=== PATIENT | male | born 1965 | race Caucasian/White ===

== ENCOUNTER 2018-01-24 17:51 | Observation (INO) | payer BC, OTHER ==
--- OUTSIDE RECORDS SUMMARY | 2018-01-24 17:54 | XMS REPORT ---
:1965 [facility] Address [address] [place] [address] [address] [place] [address] Care Team Providers Name Role Phone DWIGHT MCHUGH Unavailable Unavailable Problems This patient has no known problems. Allergies, Adverse Reactions, Alerts This patient has no known allergies or adverse reactions. Medications This patient has no known medications. Results Test Description Test Time Test Comments Text Results Atomic Results Result Comments POCT-GLUCOSE METER 2017-06-15 17:36:00 Test Item Value Reference Range Comments POC-GLUCOSE METER (BEAKER) (test 243 mg/dL 70-110 TESTED AT [facility] [address] [place] [address] ghxg=4892) [address] [facility] [address] BASIC METABOLIC [id number] 13:51:00 Test Item Value Reference Range Comments SODIUM (BEAKER) (test 139 meq/L 135-148 yqis=552) POTASSIUM (BEAKER) (test 3.4 meq/L 3.6-5.5 ijqo=578) CHLORIDE (BEAKER) (test 101 meq/L 98-106 eece=888) CO2 (BEAKER) (test 29 meq/L 20-29 xlek=701) BLOOD UREA NITROGEN 11 mg/dL 10-26 (BEAKER) (test ytmc=009) CREATININE (BEAKER) (test 2.10 mg/dL 0.50-1.20 ddei=175) GLUCOSE RANDOM (BEAKER) 157 mg/dL 70-110 (test ehmy=391) CALCIUM (BEAKER) (test 8.6 mg/dL 8.5-10.5 icre=595) EGFR (BEAKER) (test 33 mL/min/1.73 sq m ESTIMATED GFR IS NOT xowc=1493) ACCURATE CREATININE CLEARANCE IN PREDICTING GLOMERULAR FILTRATION RATE. ESTIMATED GFR IS NOT APPLICABLE FOR DIALYSIS PATIENTS. [id number] 13:44:00 Test Item Value Reference Range Comments MAGNESIUM (BEAKER) (test tvuh=241) 1.9 mg/dL 1.5-3.0 CBC W/PLT COUNT & AUTO [id number] 13:34:00 Test Item Value Reference Range Comments WHITE BLOOD CELL COUNT (BEAKER) (test emzc=345) 6.8 K/ L 4.0-10.0 RED BLOOD CELL COUNT (BEAKER) (test yukt=102) 2.92 M/ L 4.20-5.80 HEMOGLOBIN (BEAKER) (test cmmi=689) 8.4 GM/DL 13.0-16.8 HEMATOCRIT (BEAKER) (test orfi=522) 25.5 % 40.0-50.0 MEAN CORPUSCULAR VOLUME (BEAKER) (test wesi=303) 87.4 fL 82.0-98.0 MEAN CORPUSCULAR HEMOGLOBIN (BEAKER) (test 28.7 pg 27.0-33.0 jalj=402) MEAN CORPUSCULAR HEMOGLOBIN CONC (BEAKER) (test 32.8 GM/DL 32.0-36.0 jofh=209) RED CELL DISTRIBUTION WIDTH (BEAKER) (test 14.7 % 10.3-14.2 dkqa=333) PLATELET COUNT (BEAKER) (test ixkf=316) 299 K/CU MM 150-430 MEAN PLATELET VOLUME (BEAKER) (test nyyr=035) 6.9 fL 6.5-10.5 NUCLEATED RED BLOOD CELLS (BEAKER) (test 0 /100 WBC 0-0 ifyw=392) NEUTROPHILS RELATIVE PERCENT (BEAKER) (test 65 % mivk=452) LYMPHOCYTES RELATIVE PERCENT (BEAKER) (test 18 % epjp=837) MONOCYTES RELATIVE PERCENT (BEAKER) (test 14 % husu=605) EOSINOPHILS RELATIVE PERCENT (BEAKER) (test 3 % jdfv=263) BASOPHILS RELATIVE PERCENT (BEAKER) (test 1 % prcy=630) NEUTROPHILS ABSOLUTE COUNT (BEAKER) (test 4.40 K/ L 1.80-8.00 tpvy=103) LYMPHOCYTES ABSOLUTE COUNT (BEAKER) (test 1.20 K/ L 1.48-4.50 yynh=139) MONOCYTES ABSOLUTE COUNT (BEAKER) (test 1.00 K/ L 0.00-1.30 xwkk=342) EOSINOPHILS ABSOLUTE COUNT (BEAKER) (test 0.20 K/ L 0.00-0.50 soiq=262) BASOPHILS ABSOLUTE COUNT (BEAKER) (test 0.00 K/ L 0.00-0.20 uybg=486) POCT-GLUCOSE [id number] 11:28:00 Test Item Value Reference Range Comments POC-GLUCOSE METER (BEAKER) 147 mg/dL 70-110 TESTED AT [address] (test jdnm=8485) [facility] [address] POCT-GLUCOSE [id number] 06:04:00 Test Item Value Reference Range Comments POC-GLUCOSE METER (BEAKER) 137 mg/dL 70-110 TESTED AT [address] (test zirp=5223) [place] [address] POCT-GLUCOSE [id number] 21:01:00 Test Item Value Reference Range Comments POC-GLUCOSE METER (BEAKER) 138 mg/dL 70-110 TESTED AT [address] (test gzxm=6762) [place] [address] POCT-GLUCOSE [id number] 16:06:00 Test Item Value Reference Range Comments POC-GLUCOSE METER (BEAKER) 167 mg/dL 70-110 TESTED AT [address] (test moeq=3844) [place] [address] POCT-GLUCOSE [id number] 12:49:00 Test Item Value Reference Range Comments POC-GLUCOSE METER (BEAKER) 144 mg/dL 70-110 TESTED AT [address] (test kuwp=4431) [place] [address] [id number] 10:27:00 Test Item Value Reference Range Comments POC-CREATININE (BEAKER) 3.6 mg/dL 0.6-1.3 TESTED AT [address] (test exez=7161) [place] [address] POC-EGFR (BEAKER) (test 18 mL/min/1.73M2 ekat=3573) [id number] 10:27:00 Test Item Value Reference Range Comments POC-SODIUM (BEAKER) (test 138 meq/L 135-148 TESTED AT [address] ynso=3520) [place] [address] [id number] 10:27:00 Test Item Value Reference Range Comments POC-POTASSIUM (BEAKER) 3.6 meq/L 3.6-5.5 TESTED AT [address] (test wssc=8126) [place] [address] [id number] 10:27:00 Test Item Value Reference Range Comments POC-BUN (BEAKER) (test 20 mg/dL 7-21 TESTED AT [address] mxza=8762) [place] [address] [id number] 10:27:00 Test Item Value Reference Range Comments POC-CHLORIDE (BEAKER) (test 97 meq/L 98-107 TESTED AT [address] rlvq=9967) [place] [address] [id number] 10:27:00 Test Item Value Reference Range Comments POC-GLUCOSE (BEAKER) (test 123 mg/dL 70-110 TESTED AT [address] nuct=8224) [place] [address] [id number] 10:27:00 Test Item Value Reference Range Comments POC-HEMATOCRIT (BEAKER) (test 24 % 40-50 TESTED AT [address] pgmz=7137) [place] [address] [id number] 10:27:00 Test Item Value Reference Range Comments POC-HEMOGLOBIN (BEAKER) 8.2 g/dL 13.0-16.8 TESTED AT [address] (test kwzb=4977) [place] [address] [id number] 10:27:00 Test Item Value Reference Range Comments POC-TCO2 (BEAKER) (test 30 meq/L 22-29 TESTED AT [address] xjct=6524) [place] [address] POCT-GLUCOSE [id number] 06:08:00 Test Item Value Reference Range Comments POC-GLUCOSE METER (BEAKER) 163 mg/dL 70-110 TESTED AT [address] (test lnzr=9609) [place] [address] POCT-GLUCOSE [id number] 21:07:00 Test Item Value Reference Range Comments POC-GLUCOSE METER (BEAKER) 132 mg/dL 70-110 TESTED AT [facility] [address] [place] [address] (test jays=6411) [facility] [address] POCT-GLUCOSE [id number] 12:58:00 Test Item Value Reference Range Comments POC-GLUCOSE METER (BEAKER) 178 mg/dL 70-110 TESTED AT [facility] [address] [place] [address] (test ybva=9790) [facility] [address] POCT-GLUCOSE [id number] 05:29:00 Test Item Value Reference Range Comments POC-GLUCOSE METER (BEAKER) 171 mg/dL 70-110 TESTED AT [address] (test styj=6054) [facility] [address] POCT-GLUCOSE [id number] 22:03:00 Test Item Value Reference Range Comments POC-GLUCOSE METER (BEAKER) 249 mg/dL 70-110 TESTED AT [address] (test odkx=4712) [facility] [address] POCT-GLUCOSE [id number] 16:45:00 Test Item Value Reference Range Comments POC-GLUCOSE METER (BEAKER) 213 mg/dL 70-110 TESTED AT [address] (test cjec=1829) [facility] [address] [id number] 16:43:00 Test Item Value Reference Range Comments THYROID STIMULATING HORMONE (BEAKER) (test 2.09 uIU/mL 0.35-5.50 uuzy=850) COMPREHENSIVE METABOLIC [id number] 16:24:00 Test Item Value Reference Range Comments TOTAL PROTEIN (BEAKER) 7.2 gm/dL 6.0-8.5 (test ooge=217) ALBUMIN (BEAKER) (test 3.5 g/dL 3.5-5.0 hvxx=7319) ALKALINE PHOSPHATASE 67 U/L 30-115 (BEAKER) (test engg=358) BILIRUBIN TOTAL (BEAKER) 0.3 mg/dL 0.1-1.2 (test renx=911) SODIUM (BEAKER) (test 136 meq/L 135-148 zdfh=783) POTASSIUM (BEAKER) (test 4.1 meq/L 3.6-5.5 phuq=649) CHLORIDE (BEAKER) (test 98 meq/L 98-106 ipwg=503) CO2 (BEAKER) (test 26 meq/L 20-29 pjfi=504) BLOOD UREA NITROGEN 32 mg/dL 10-26 (BEAKER) (test xdjo=718) CREATININE (BEAKER) (test 4.40 mg/dL 0.50-1.20 hyui=623) GLUCOSE RANDOM (BEAKER) 212 mg/dL 70-110 (test upyj=892) CALCIUM (BEAKER) (test 9.0 mg/dL 8.5-10.5 ecaw=907) AST (SGOT) (BEAKER) (test 14 U/L 5-40 lhob=894) ALT (SGPT) (BEAKER) (test 4 U/L 5-50 tjzj=179) EGFR (BEAKER) (test 14 mL/min/1.73 sq m ESTIMATED GFR IS NOT cazk=3469) ACCURATE CREATININE CLEARANCE IN PREDICTING GLOMERULAR FILTRATION RATE. ESTIMATED GFR IS NOT APPLICABLE FOR DIALYSIS PATIENTS. CBC W/PLT COUNT & AUTO [id number] 16:02:00 Test Item Value Reference Range Comments WHITE BLOOD CELL COUNT (BEAKER) (test ynxn=941) 6.9 K/ L 4.0-10.0 RED BLOOD CELL COUNT (BEAKER) (test yaip=647) 2.95 M/ L 4.20-5.80 HEMOGLOBIN (BEAKER) (test vumk=913) 8.6 GM/DL 13.0-16.8 HEMATOCRIT (BEAKER) (test hnrl=954) 25.9 % 40.0-50.0 MEAN CORPUSCULAR VOLUME (BEAKER) (test jatc=679) 87.9 fL 82.0-98.0 MEAN CORPUSCULAR HEMOGLOBIN (BEAKER) (test 29.0 pg 27.0-33.0 mjzf=366) MEAN CORPUSCULAR HEMOGLOBIN CONC (BEAKER) (test 33.0 GM/DL 32.0-36.0 idza=928) RED CELL DISTRIBUTION WIDTH (BEAKER) (test 15.0 % 10.3-14.2 wwbw=315) PLATELET COUNT (BEAKER) (test sasr=119) 330 K/CU MM 150-430 MEAN PLATELET VOLUME (BEAKER) (test toix=266) 7.1 fL 6.5-10.5 NUCLEATED RED BLOOD CELLS (BEAKER) (test 0 /100 WBC 0-0 zoje=058) NEUTROPHILS RELATIVE PERCENT (BEAKER) (test 66 % ewkj=302) LYMPHOCYTES RELATIVE PERCENT (BEAKER) (test 16 % wkjb=839) MONOCYTES RELATIVE PERCENT (BEAKER) (test 12 % igjn=251) EOSINOPHILS RELATIVE PERCENT (BEAKER) (test 5 % odyk=712) BASOPHILS RELATIVE PERCENT (BEAKER) (test 1 % vvyr=779) NEUTROPHILS ABSOLUTE COUNT (BEAKER) (test 4.60 K/ L 1.80-8.00 sonj=800) LYMPHOCYTES ABSOLUTE COUNT (BEAKER) (test 1.10 K/ L 1.48-4.50 ygwh=064) MONOCYTES ABSOLUTE COUNT (BEAKER) (test 0.80 K/ L 0.00-1.30 vrds=164) EOSINOPHILS ABSOLUTE COUNT (BEAKER) (test 0.30 K/ L 0.00-0.50 yjzl=970) BASOPHILS ABSOLUTE COUNT (BEAKER) (test 0.10 K/ L 0.00-0.20 pflu=165) PROTHROMBIN [id number] 16:01:00 Test Item Value Reference Range Comments PROTIME (BEAKER) (test yavg=760) 10.3 seconds 9.3-12.0 INR (BEAKER) (test owtj=636) 1.0 <=5.9 RECOMMENDED COUMADIN/WARFARIN INR THERAPY RANGESSTANDARD DOSE: 2.0 - 3.0 Includes: PROPHYLAXIS forvenous thrombosis, systemic embolization; TREATMENT for venous thrombosis and/or pulmonary embolus.HIGH RISK: Target INR is 2.5-3.5 for patients with mechanical heart valves.POCT-GLUCOSE [id number] 12:01:00 Test Item Value Reference Range Comments POC-GLUCOSE METER (BEAKER) 211 mg/dL 70-110 TESTED AT [address] (test dghj=3249) [facility] [address] POCT-GLUCOSE [id number] 06:08:00 Test Item Value Reference Range Comments POC-GLUCOSE METER (BEAKER) 191 mg/dL 70-110 TESTED AT [address] (test vwqt=4707) [facility] [address] POCT-GLUCOSE [id number] 21:28:00 Test Item Value Reference Range Comments POC-GLUCOSE METER (BEAKER) 233 mg/dL 70-110 TESTED AT [address] (test tzen=4632) [facility] [address] POCT-GLUCOSE [id number] 16:19:00 Test Item Value Reference Range Comments POC-GLUCOSE METER (BEAKER) 290 mg/dL 70-110 TESTED AT [address] (test mydz=1391) [facility] [address] POCT-GLUCOSE [id number] 13:33:00 Test Item Value Reference Range Comments POC-GLUCOSE METER (BEAKER) 186 mg/dL 70-110 TESTED AT [address] (test tygi=2998) [facility] [address] POCT-GLUCOSE [id number] 06:27:00 Test Item Value Reference Range Comments POC-GLUCOSE METER (BEAKER) 204 mg/dL 70-110 TESTED AT [address] (test dcmt=2566) [facility] [address] POCT-GLUCOSE [id number] 21:40:00 Test Item Value Reference Range Comments POC-GLUCOSE METER (BEAKER) 267 mg/dL 70-110 TESTED AT [address] (test pipw=6643) [facility] [address] POCT-GLUCOSE [id number] 17:32:00 Test Item Value Reference Range Comments POC-GLUCOSE METER (BEAKER) 221 mg/dL 70-110 TESTED AT [address] (test nbnj=3062) [facility] [address] HEPATITIS B SURFACE [id number] 14:21:00 Test Item Value Reference Range Comments HEPATITIS B SURFACE ANTIBODY (BEAKER) (test < mIU/mL <8.0 ekgd=456) HEPATITIS B CORE ANTIBODY, [id number] 14:15:00 Test Item Value Reference Range Comments HEPATITIS B CORE TOTAL ANTIBODY (BEAKER) (test Nonreactive Nonreactive vzma=148) POCT-GLUCOSE [id number] 12:18:00 Test Item Value Reference Range Comments POC-GLUCOSE METER (BEAKER) 193 mg/dL 70-110 TESTED AT [address] (test ecft=5523) [facility] [address] RAD, CHEST, 1 VIEW, NON [id number] 08:49:00Reason for exam:->for outpatient HD placementShould this be performed at the bedside?->YesFINAL REPORT TECHNIQUE: Frontal chest radiograph dated 2016. CLINICAL HISTORY: Outpatient HD placement COMPARISON STUDY: None IMPRESSION:Right sided internal jugular venous catheter is seen with the tip. Increased interstitial lung markings are compatible with interstitial edema. No focal consolidation. No pleural effusion or pneumothorax. Cardiomediastinal silhouette isnormal in size. No fracture. Signed: Sachi Hammer MDReport Verified Date/Time: 06/10/2017 08:49:42 Reading Location: [facility] Radiology Reading Room Electronically signed by: SACHI HAMMER on 2016 08:49 AMPOCT-GLUCOSE [id number] 06:53:00 Test Item Value Reference Range Comments POC-GLUCOSE METER (BEAKER) 177 mg/dL 70-110 TESTED AT [address] (test dmiz=9094) [facility] [address] POCT-GLUCOSE [id number] 22:10:00 Test Item Value Reference Range Comments POC-GLUCOSE METER (BEAKER) 109 mg/dL 70-110 TESTED AT [address] (test gjct=4780) [facility] [address] HEPATITIS B SURFACE [id number] 20:18:00 Test Item Value Reference Range Comments HEPATITIS B SURFACE ANTIGEN (2) (BEAKER) (test Nonreactive Nonreactive efxj=8962) POCT-GLUCOSE [id number] 17:08:00 Test Item Value Reference Range Comments POC-GLUCOSE METER (BEAKER) 223 mg/dL 70-110 TESTED AT [address] (test lvru=4873) [facility] [address] POCT-GLUCOSE [id number] 12:47:00 Test Item Value Reference Range Comments POC-GLUCOSE METER (BEAKER) 200 mg/dL 70-110 TESTED AT [address] (test durg=7515) [facility] [address] ANG, TUNNELED CATHETER [id number] 12:13:00Reason for exam:->renal failureFINAL REPORT Tunneled central venous catheter insertion. History:End-stage renal disease Modality: Sonography and fluoroscopy. Sedation: Moderate sedation was administered. 2 mg of Versed and 100 mcg of fentanyl IV was used for moderate sedation monitored under my direction. Total intra- service time of sedation was 30 minutes. The patient's vital signs were monitored throughout the procedure and recorded in the patient's medical record by the nurse. [facility] Former: Onesimo Lopez MD. Continuity Manager: None. Approach: Right internal jugular vein Estimated blood loss: < 5 cc. Specimen: None. Fluoroscopy Time: 0.4 min.Reference Air Kerma (Ka, r): 11.0 mGy. Technique: Informed written consent was obtained. Discussion of risks, benefits, and alternatives were made with the patient. The patient expressed understanding and agreed to proceed. Auniversal timeout was performed prior to starting the procedure. All elements maximal sterile barrier technique was utilized for this procedure, including utilization of sterile scrub solution for skin prep, a large sterile sheet to cover the areas of the patient that were not prepped, and hand hygiene, mask, head covering, and sterile gown for performing radiologist and scrub technologist. The skin was anesthetized with 2% lidocaine.Ultrasound evaluation showed a patent and compressible right internal jugular vein, which was punctured under direct real-time ultrasound guidance with a micropuncture needle. An ultrasound image was saved to PACS. A 0.018 inch wire was placed through the needle into the right atrium. A 4 Singaporean micropuncture sheath was placed. A subcutaneous tunnel was created in the right anterior chest wall by blunt dissection. A 19 cm tipped cuff 15.5 Singaporean Duraflow 2 catheter was brought through the tunnel. A peel-away sheath was placed in the right IJ vein and the catheter was advanced through the sheath, with its distal tip terminating in the right atrium. The peel-away sheath was removed. The ports were flushed and aspirated easily following placement. The catheter was sutured to the skin with Prolene to secure its placement. The small jugular incision site was closed using Dermabond. Vital signs were monitored throughout the procedure by a nurse, and remained stable. The patient tolerated the procedure well and left the department in the same condition.The patient was given 1 gram of Ancef intravenously during the procedure. Results: Spot radiograph of the chest demonstrates the new tunneled central venous catheter to lie in the expected position with its tip overlying the superior right atrium. Impression: Successful, uncomplicated placement of a right internal jugular tunneled dialysis catheter using sonographic and fluoroscopic guidance and conscious sedation. The catheter is ready for immediate use. Signed: Onesimo Lopezort Verified Date/Time: 06/09/2017 12:13:36 Reading Location: [facility] Radiology Reading Room 12 :13 PMPOCT-GLUCOSE [id number] 06:03:00 Test Item Value Reference Range Comments POC-GLUCOSE METER (BEAKER) 208 mg/dL 70-110 TESTED AT [facility] [address] [facility] [place] (test ifau=4821) [address] [facility] [address] BASIC METABOLIC [id number] 06:00:00 Test Item Value Reference Range Comments SODIUM (BEAKER) (test 139 meq/L 135-148 xvmw=192) POTASSIUM (BEAKER) (test 3.5 meq/L 3.6-5.5 ysmm=435) CHLORIDE (BEAKER) (test 103 meq/L 98-106 eoju=012) CO2 (BEAKER) (test 26 meq/L 20-29 lzes=188) BLOOD UREA NITROGEN 62 mg/dL 10-26 (BEAKER) (test uijj=091) CREATININE (BEAKER) (test 5.10 mg/dL 0.50-1.20 jufg=739) GLUCOSE RANDOM (BEAKER) 191 mg/dL 70-110 (test mrll=966) CALCIUM (BEAKER) (test 9.0 mg/dL 8.5-10.5 ivwj=729) EGFR (BEAKER) (test 12 mL/min/1.73 sq m ESTIMATED GFR IS NOT leir=9052) ACCURATE CREATININE CLEARANCE IN PREDICTING GLOMERULAR FILTRATION RATE. ESTIMATED GFR IS NOT APPLICABLE FOR DIALYSIS PATIENTS. HEPATIC FUNCTION [id number] 05:58:00 Test Item Value Reference Range Comments TOTAL PROTEIN (BEAKER) (test ythr=254) 6.3 gm/dL 6.0-8.5 ALBUMIN (BEAKER) (test rjqx=3249) 3.2 g/dL 3.5-5.0 BILIRUBIN TOTAL (BEAKER) (test dnfg=914) 0.4 mg/dL 0.1-1.2 BILIRUBIN DIRECT (BEAKER) (test wmjd=439) 0.2 mg/dL 0.0-0.4 ALKALINE PHOSPHATASE (BEAKER) (test aiee=908) 67 U/L 30-115 AST (SGOT) (BEAKER) (test wewk=128) 13 U/L 5-40 ALT (SGPT) (BEAKER) (test hwik=569) 10 U/L 5-50 CBC W/PLT COUNT & AUTO [id number] 05:56:00 Test Item Value Reference Range Comments WHITE BLOOD CELL COUNT (BEAKER) (test bbgp=881) 6.3 K/ L 4.0-10.0 RED BLOOD CELL COUNT (BEAKER) (test cauy=967) 2.71 M/ L 4.20-5.80 HEMOGLOBIN (BEAKER) (test czim=482) 7.8 GM/DL 13.0-16.8 HEMATOCRIT (BEAKER) (test atjq=427) 23.6 % 40.0-50.0 MEAN CORPUSCULAR VOLUME (BEAKER) (test kmtl=382) 86.8 fL 82.0-98.0 MEAN CORPUSCULAR HEMOGLOBIN (BEAKER) (test 28.6 pg 27.0-33.0 lvag=407) MEAN CORPUSCULAR HEMOGLOBIN CONC (BEAKER) (test 33.0 GM/DL 32.0-36.0 bgci=378) RED CELL DISTRIBUTION WIDTH (BEAKER) (test 14.8 % 10.3-14.2 codw=546) PLATELET COUNT (BEAKER) (test asak=617) 334 K/CU MM 150-430 MEAN PLATELET VOLUME (BEAKER) (test pzza=688) 6.9 fL 6.5-10.5 NUCLEATED RED BLOOD CELLS (BEAKER) (test 0 /100 WBC 0-0 zncb=526) NEUTROPHILS RELATIVE PERCENT (BEAKER) (test 57 % oatr=374) LYMPHOCYTES RELATIVE PERCENT (BEAKER) (test 19 % ljho=443) MONOCYTES RELATIVE PERCENT (BEAKER) (test 15 % otke=690) EOSINOPHILS RELATIVE PERCENT (BEAKER) (test 7 % ntgi=728) BASOPHILS RELATIVE PERCENT (BEAKER) (test 1 % elgt=891) NEUTROPHILS ABSOLUTE COUNT (BEAKER) (test 3.60 K/ L 1.80-8.00 llhp=717) LYMPHOCYTES ABSOLUTE COUNT (BEAKER) (test 1.20 K/ L 1.48-4.50 dgsi=266) MONOCYTES ABSOLUTE COUNT (BEAKER) (test 1.00 K/ L 0.00-1.30 xdyc=993) EOSINOPHILS ABSOLUTE COUNT (BEAKER) (test 0.50 K/ L 0.00-0.50 mypy=942) BASOPHILS ABSOLUTE COUNT (BEAKER) (test 0.10 K/ L 0.00-0.20 hyau=583) [id number] 05:55:00 Test Item Value Reference Range Comments PHOSPHORUS (BEAKER) (test dgdf=482) 4.1 mg/dL 2.5-4.5 [id number] 05:51:00 Test Item Value Reference Range Comments PROTIME (BEAKER) (test abyc=086) 10.7 seconds 9.3-12.0 INR (BEAKER) (test xjic=174) 1.0 <=5.9 PARTIAL THROMBOPLASTIN TIME (BEAKER) (test 28.5 seconds 23.0-35.0 uect=286) RECOMMENDED COUMADIN/WARFARIN INR THERAPY RANGESSTANDARD DOSE: 2.0 - 3.0 Includes: PROPHYLAXIS forvenous thrombosis, systemic embolization; TREATMENT for venous thrombosis and/or pulmonary embolus.HIGH RISK: Target INR is 2.5-3.5 for patients with mechanical heart valves.[id number] 05:50:00 Test Item Value Reference Range Comments MAGNESIUM (BEAKER) (test equm=511) 1.7 mg/dL 1.5-3.0 POCT-GLUCOSE [id number] 23:14:00 Test Item Value Reference Range Comments POC-GLUCOSE METER (BEAKER) 230 mg/dL 70-110 TESTED AT [address] (test akcl=5389) [address] [facility] [id number]
--- OUTSIDE RECORDS SUMMARY | 2018-01-24 17:54 | XMS REPORT | Clinical Summary ---
:1965 Author Organization [facility] Address [address] [place] [address] Care Team Providers Name Role Phone Garo Chavarria MD Primary Care Provider Allergies Active Allergy Reactions Severity Noted Date Comments Sulfa (Sulfonamide Antibiotics) Rash Low 07/17/2017 Current Medications Prescription Sig. Disp. Refills Start Date End Date Status amLODIPine Take 10 mg by Active (NORVASC) 10 mg mouth daily. tablet furosemide (LASIX) Take 40 mg by Active 40 mg tablet mouth 2 (two) times a day. sertraline (ZOLOFT) Take 50 mg by Active 50 MG tablet mouth daily. atorvastatin Take 80 mg by Active (LIPITOR) 80 MG mouth daily. tablet clopidogrel Take 75 mg by Active (PLAVIX) 75 mg mouth daily. tablet docusate sodium Take 100 mg by Active (COLACE) 100 MG mouth 2 (two) capsule times a day. ranolazine (RANEXA) Take 1,000 mg Active 1,000 mg 12 hr by mouth daily. tablet metoprolol tartrate Take 100 mg by Active (LOPRESSOR) 100 mg mouth 2 (two) tablet times a day. hydrALAZINE Take 50 mg by Active (APRESOLINE) 25 MG mouth 2 (two) tablet times a day. metoclopramide Take 5 mg by Active (REGLAN) 5 MG mouth 3 (three) tablet times a day. aspirin 325 MG Take 325 mg by Active tablet mouth daily. INSULIN Inject under Active SUBCUTANEOUS PUMP, the skin HUMALOG, 100 continuously. UNITS/ML INSULIN Insulin Pump - PUMP INFUSION V-GO 40 units (HumaLOG) thru out the day. travoprost Administer 1 Active (TRAVATAN-Z) 0.004 drop to both % eyes nightly. nitroglycerin Place 0.4 mg Active (NITROSTAT) 0.4 MG under the SL tablet tongue every 5 (five) minutes as needed for chest pain. nitroglycerin Place 1 patch Active (NITRODUR) 0.2 on the skin mg/hr daily as needed (Chest Pain). zolpidem (AMBIEN) 5 Take 5 mg by Active MG tablet mouth nightly. ondansetron Take 4 mg by Active (ZOFRAN) 4 MG mouth every 6 tablet (six) hours as needed for nausea or vomiting. promethazine Take 25 mg by Active (PHENERGAN) 25 MG mouth every 8 tablet (eight) hours as needed for nausea or vomiting. lactulose 10 Take 20 g by Active gram/15 mL (15 mL) mouth daily as solution needed (Constipation). famotidine (PEPCID) Take 40 mg by Active 40 MG tablet mouth nightly. ergocalciferol Take 50,000 Active (VITAMIN D2) 50,000 Units by mouth unit capsule every 30 (thirty) days. ciprofloxacin Take 500 mg by Discontinued (CIPRO) 500 MG mouth 2 (two) 8 tablet times a day. cholecalciferol, Take 50,000 Discontinued vitamin D3, Units by mouth 8 (VITAMIN D3) 2,000 daily. unit capsule capsule acetaminophen-codei Take 1-2 20 tablet 0 08/25/2017 ne (TYLENOL WITH tablets by 8 CODEINE #3) 300-30 mouth every 6 mg per tablet (six) hours as needed for moderate pain for up to 5 days. docusate sodium Take 1 capsule 14 capsule 0 08/25/2017 (COLACE) 100 MG (100 mg total) 8 capsule by mouth 2 (two) times a day for 7 days. Active Problems Problem Noted Date End-stage renal disease on hemodialysis 08/25/2017 Resolved Problems Problem Noted Date Resolved Date Breakdown of intraperitoneal dialysis catheter, init 08/25/2017 08/25/2017 Abdominal pain 07/17/2017 07/19/2017 Encounters Date Type Specialty Care Team Description 09/15/2017 Office Visit General Surgery Dianelys, Surgery follow-up Abdiel Davis MD (Primary Dx) 08/25/2017 Hospital Encounter General Surgery Abdiel Ivory MD 08/25/2017 Procedure Pass General Surgery 08/25/2017 Surgery General Surgery Oppermann, OPEN PERITONEAL Abdiel Davis MD DIALYSIS CATHETER REMOVAL 08/23/2017 Pre-Admit Testing Pre-Admission Opelle, Preop testing Appointment Testing Abdiel Davis MD (Primary Dx) 08/23/2017 Anesthesia Event General Surgery Jason Eugene, KRISTIAN 07/17/2017 - Emergency General Internal Kevin Chavez Abdominal pain, unspecified abdominal location (Primary Dx); 07/19/2017 Robert Ortiz MD End stage renal disease; Paulina Kendrick Peritoneal dialysis catheter in place MD Frank after 01/23/2017 Immunizations Name Dates Previously Given Next Due Influenza, Unspecified 02/11/2017 Pneumococcal, Unspecified 02/11/2017 Family History Medical History Relation Name Comments Cancer Father throat Diabetes Mother Heart disease Mother Relation Name Status Comments Father Mother Alive Social History Tobacco Use Types Packs/Day Years Used Date Never Smoker Smokeless Tobacco: Never Used Alcohol Use Drinks/Week oz/Week Comments No Sex Assigned at Date Recorded Not on file Last Filed Vital Signs Vital Sign Reading Time Taken Blood Pressure 109/56 09/15/2017 1:01 PM CDT Pulse 59 09/15/2017 1:01 PM CDT Temperature 36.4 C (97.5 F) 08/25/2017 9:43 AM CDT Respiratory Rate 16 08/25/2017 10:00 AM CDT Oxygen Saturation 93% 08/25/2017 10:00 AM CDT Inhaled Oxygen Concentration - - Weight 94.8 kg (209 lb) 09/15/2017 1:01 PM CDT Height 190.5 cm (6' 3") 09/15/2017 1:01 PM CDT Body Mass Index 26.12 09/15/2017 1:01 PM CDT Plan of Treatment Health Maintenance Due Date Last Done Comments COLON CANCER SCREENING 2014 SHINGRIX VACCINE (#1) 2014 INFLUENZA VACCINE 01/11/2018 02/11/2017 Procedures Procedure Name Priority Date/Time Associated Comments Diagnosis POC GLUCOSE Routine 08/25/2017 8:40 Results for this AM CDT procedure are in the results section. CO AN ELECTIVE Routine 08/25/2017 8:09 ENDOTRACHEAL AIRWAY AM CDT Procedure Note - Federico Young CRNA - 08/25/2017 8:09 AM CDT Airway Date/Time: 08/25/2017 7:40 AM Performed by: FEDERICO YOUNG V. Authorized by: TONYA CASTRO Location: OR Urgency: Elective Anesthesiologist: TONYA CASTRO Performed by: anesthesiologist Preoxygenated with 100% O2: Yes C-spine Precautions Maintained Throughout: Yes Mask Ventilation: Assisted mask Final Airway Type: Endotracheal airway Final Endotracheal Airway: ETT Cuffed: Yes Technique Used: Direct laryngoscopy Devices/Methods Used in Placement: Bougie Insertion Site: Oral Blade Type: Edwards Laryngoscope Blade/Videolaryngoscope Blade Size: 2 ETT Size (mm): 8.0 Cuff at minimum occlusion pressure: Yes Measured from: Teeth ETT to Teeth (cm): 21 Placement Verified by: CO2 detection and direct visualization Laryngoscopic view: Grade IIb - view of arytenoids or posterior of glottis only POC PANEL 4 Routine 08/25/2017 6:59 AM Results for this CDT procedure are in the results section. ESTIMATED GFR STAT 08/25/2017 6:47 AM Results for this CDT procedure are in the results section. BASIC METABOLIC PANEL STAT 08/25/2017 6:47 AM Results for this CDT procedure are in the results section. HC COMPLETE BLD COUNT Routine 08/23/2017 12:26 PM Preop testing Results for this W/AUTO DIFF CDT procedure are in the results section. ECG PRE/POST OP Routine 08/23/2017 11:23 AM Preop testing Results for this CDT procedure are in the results section. POC GLUCOSE Routine 07/19/2017 7:48 AM Results for this ROUTING MACHINE OPERATOR procedure are in the results section. POC GLUCOSE Routine 07/18/2017 8:52 PM Results for this ROUTING MACHINE OPERATOR procedure are in the results section. NM GASTRIC EMPTYING Routine 07/18/2017 5:06 PM Results for this ROUTING MACHINE OPERATOR procedure are in the results section. POC GLUCOSE Routine 07/18/2017 4:15 PM Results for this ROUTING MACHINE OPERATOR procedure are in the results section. CELL COUNT AND Routine 07/18/2017 10:00 AM Results for this DIFFERENTIAL, BODY FLUID ROUTING MACHINE OPERATOR procedure are in the results section. FUNGUS SMEAR Routine 07/18/2017 10:00 AM Results for this ROUTING MACHINE OPERATOR procedure are in the results section. GRAM STAIN Routine 07/18/2017 10:00 AM Results for this ROUTING MACHINE OPERATOR procedure are in the results section. FUNGUS CULTURE Routine 07/18/2017 10:00 AM Results for this ROUTING MACHINE OPERATOR procedure are in the results section. ANAEROBIC CULTURE Routine 07/18/2017 10:00 AM Results for this ROUTING MACHINE OPERATOR procedure are in the results section. AEROBIC CULTURE Routine 07/18/2017 10:00 AM Results for this ROUTING MACHINE OPERATOR procedure are in the results section. CT ABDOMEN PELVIS WO Routine 07/18/2017 9:02 AM Results for this CONTRAST ROUTING MACHINE OPERATOR procedure are in the results section. LACTIC ACID LEVEL, Timed 07/18/2017 4:11 AM Results for this SEPSIS - NOW AND REPEAT ROUTING MACHINE OPERATOR procedure are in 2X EVERY 3 HOURS the results section. LACTIC ACID LEVEL, Timed 07/17/2017 8:30 PM Results for this SEPSIS - NOW AND REPEAT ROUTING MACHINE OPERATOR procedure are in 2X EVERY 3 HOURS the results section. ESTIMATED GFR STAT 07/17/2017 4:55 PM Results for this ROUTING MACHINE OPERATOR procedure are in the results section. LIPASE LEVEL STAT 07/17/2017 4:55 PM Results for this ROUTING MACHINE OPERATOR procedure are in the results section. COMPREHENSIVE METABOLIC STAT 07/17/2017 4:55 PM Results for this PANEL ROUTING MACHINE OPERATOR procedure are in the results section. LACTIC ACID LEVEL, STAT 07/17/2017 4:55 PM Results for this SEPSIS - NOW AND REPEAT ROUTING MACHINE OPERATOR procedure are in 2X EVERY 3 HOURS the results section. HC COMPLETE BLD COUNT STAT 07/17/2017 4:55 PM Results for this W/AUTO DIFF ROUTING MACHINE OPERATOR procedure are in the results section. BLOOD CULTURE, AEROBIC & Routine 07/17/2017 4:55 PM Results for this ANAEROBIC ROUTING MACHINE OPERATOR procedure are in the results section. BLOOD CULTURE, AEROBIC & Routine 07/17/2017 4:50 PM Results for this ANAEROBIC ROUTING MACHINE OPERATOR procedure are in the results section. after 01/23/2017 Results POC glucose (08/25/2017 8:40 AM)Only the most recent of4 resultswithin the time period is included. POC glucose 152 (H) 65 - 99 mg/dL [facility] DEPARTMENT OF PATHOLOGY AND Comment: GENOMIC MEDICINE RN Notified Meter ID: [id number] Checking Department Supervisor: Boogie Blackburn Performing Organization Address City/State/Zipcode Phone Number [facility] DEPARTMENT OF PATHOLOGY [address] [place] [address] AND GENOMIC MEDICINE POC panel 4 (08/25/2017 6:59 AM) POC sodium 138 135 - 148 meq/L [facility] DEPARTMENT OF PATHOLOGY AND GENOMIC MEDICINE POC potassium 3.7 3.5 - 5.0 meq/L [facility] DEPARTMENT OF PATHOLOGY AND GENOMIC MEDICINE POC hematocrit 36 (L) 41 - 51 % [facility] DEPARTMENT OF PATHOLOGY AND GENOMIC MEDICINE POC glucose 155 (H) 65 - 99 mg/dL [facility] DEPARTMENT OF PATHOLOGY AND GENOMIC MEDICINE POC hemoglobin 12.2 (L) 14.0 - 18.0 g/dL [facility] DEPARTMENT OF PATHOLOGY AND GENOMIC MEDICINE Specimen Blood Performing Organization Address [facility] Phone Number [facility] DEPARTMENT OF PATHOLOGY [address] [place] [address] AND [employer] [facility] Estimated GFR (08/25/2017 6:47 AM)Only the most recent of2 resultswithin the time period is included. GFR Non Af Amer 18 (A) mL/min/1.73 m2 [facility] DEPARTMENT OF PATHOLOGY AND [employer] MEDICINE GFR Af Amer 22 (A) mL/min/1.73 m2 [facility] DEPARTMENT OF Comment: PATHOLOGY AND [employer] Chronic kidney disease: <60 mL/min/1.73m2 MEDICINE Kidney failure: <15 mL/min/1.73m2 The estimated GFR is calculated from the IDMS-traceable Modification of Diet in Renal Disease Equation. The accuracy of the calculation is poor when the creatinine is normal. Calculated values >90 mL/min/1.73m2 are not reported. This equation has not been validated in children (<18 years), women, the elderly (>70 years), or ethnic groups other than Caucasians and Americans. Specimen Plasma specimen Performing Organization Address City/[facility] Phone Number [facility] DEPARTMENT OF PATHOLOGY [address] [facility]. [address] [employer] [facility] Basic metabolic panel (08/25/2017 6:47 AM) Sodium 138 135 - 148 mEq/L [facility] DEPARTMENT OF PATHOLOGY AND GENOMIC MEDICINE Potassium 3.9 3.5 - 5.0 mEq/L [facility] DEPARTMENT OF PATHOLOGY AND GENOMIC MEDICINE Chloride 100 98 - 112 mEq/L [facility] DEPARTMENT OF PATHOLOGY AND GENOMIC MEDICINE CO2 26 24 - 31 mEq/L [facility] DEPARTMENT OF PATHOLOGY AND GENOMIC MEDICINE Anion gap 12 7 - 15 mEq/L [facility] DEPARTMENT OF Comment: PATHOLOGY AND GENOMIC Starting from September , anion gap calculation MEDICINE no longer incorporates potassium. Please note the change. BUN 29 (H) 6 - 20 mg/dL [facility] DEPARTMENT OF PATHOLOGY AND [employer] MEDICINE Creatinine 3.6 (H) 0.7 - 1.2 mg/dL [facility] DEPARTMENT OF PATHOLOGY AND GENOMIC MEDICINE Glucose 159 (H) 65 - 99 mg/dL [facility] DEPARTMENT OF PATHOLOGY AND GENOMIC MEDICINE Calcium 9.2 8.3 - 10.2 mg/dL [facility] DEPARTMENT OF PATHOLOGY AND GENOMIC MEDICINE Specimen Plasma specimen Performing Organization Address City/State/[facility] Phone Number [facility] DEPARTMENT OF PATHOLOGY [address] [facility] [place] [address] AND GENOMIC MEDICINE CBC with platelet and differential (08/23/2017 12:26 PM)Only the most recent of2 resultswithin the time period is included. WBC 6.9 4.5 - 11.0 k/uL [facility] DEPARTMENT OF PATHOLOGY AND GENOMIC MEDICINE RBC 3.16 (L) 4.40 - 6.00 m/uL [facility] DEPARTMENT OF PATHOLOGY AND GENOMIC MEDICINE HGB 8.6 (L) 14.0 - 18.0 g/dL [facility] DEPARTMENT OF PATHOLOGY AND GENOMIC MEDICINE HCT 27.4 (L) 41.0 - 51.0 % [facility] DEPARTMENT OF PATHOLOGY AND GENOMIC MEDICINE MCV 86.7 82.0 - 100.0 fL [facility] DEPARTMENT OF PATHOLOGY AND GENOMIC MEDICINE MCH 27.2 27.0 - 34.0 pg [facility] DEPARTMENT OF PATHOLOGY AND GENOMIC MEDICINE MCHC 31.4 31.0 - 37.0 g/dL [facility] DEPARTMENT OF PATHOLOGY AND GENOMIC MEDICINE RDW - SD 52.3 37.0 - 55.0 fL [facility] DEPARTMENT OF PATHOLOGY AND GENOMIC MEDICINE MPV 9.1 6.9 - 11.0 fL [facility] DEPARTMENT OF PATHOLOGY AND GENOMIC MEDICINE Platelet count 273 150 - 400 K/uL [facility] DEPARTMENT OF PATHOLOGY AND GENOMIC MEDICINE Nucleated RBC 0.00 /100 WBC [facility] DEPARTMENT OF PATHOLOGY AND GENOMIC MEDICINE Neutrophils 63.7 39.0 - 69.0 % [facility] DEPARTMENT OF PATHOLOGY AND GENOMIC MEDICINE Lymphocytes 18.6 (L) 25.0 - 45.0 % [facility] DEPARTMENT OF PATHOLOGY AND GENOMIC MEDICINE Monocytes 12.3 (H) 0.0 - 10.0 % [facility] DEPARTMENT OF PATHOLOGY AND GENOMIC MEDICINE Eosinophils 4.0 0.0 - 5.0 % [facility] DEPARTMENT OF PATHOLOGY AND GENOMIC MEDICINE Basophils 0.7 0.0 - 1.0 % [facility] DEPARTMENT OF PATHOLOGY AND GENOMIC MEDICINE Immature granulocytes 0.7 0.0 - 1.0 % [facility] DEPARTMENT OF PATHOLOGY AND GENOMIC MEDICINE Specimen Blood Performing Organization Address City/State/Zipcode Phone Number [facility] DEPARTMENT OF PATHOLOGY [address] [place] [address] AND GENOMIC MEDICINE ECG Pre/Post Op (08/23/2017 11:23 AM) Ventricular rate 54 [facility] Atrial rate 54 [facility] CO interval 176 [facility] QRSD interval 88 [facility] QT interval 492 [facility] QTC interval 466 [facility] P axis 1 5 [facility] QRS axis 1 10 [facility] T wave axis 140 [facility] EKG impression Sinus bradycardia-T wave abnormality, [facility] MUSE consider lateral ischemia-Prolonged QT-Abnormal ECG-No previous ECGs available- Performing Organization Address [facility] Phone Number [facility] MUSE [address] [place] [address] NM Gastric Emptying (07/18/2017 5:06 PM) Narrative Performed At Procedure:NM GASTRIC EMPTYING [facility] Clinical History:ABDOMINAL PAIN Technique 0.8 millicuries of [id number] colloid were mixed with an egg and cooked. The egg was fed to the patient and dynamic imaging of the abdomen in the anterior and posterior projections was performed for 90 minutes. Quantification of gastric emptying was performed using the geometric mean of the anterior and posterior projections. FINDINGS: Gastric emptying half time=53 minutes (normal is <100 minutes). IMPRESSION: Normal gastric emptying. [facility]-[id number] Procedure Note Interface, Radiology Results Incoming - 07/18/2017 5:20 PM ROUTING MACHINE OPERATOR Procedure: NM GASTRIC EMPTYING Clinical History: ABDOMINAL PAIN Technique 0.8 millicuries of [id number] colloid were mixed with an egg and cooked. The egg was fed to the patient and dynamic imaging of the abdomen in the anterior and posterior projections was performed for 90 minutes. Quantification of gastric emptying was performed using the geometric mean of the anterior and posterior projections. FINDINGS: Gastric emptying half time=53 minutes (normal is <100 minutes). IMPRESSION: Normal gastric emptying. [facility]-[id number] Performing Organization Address [facility] Phone Number [facility] [address] [place] [address] Fungus smear (07/18/2017 10:00 AM) Fungus smear No fungi observed. [facility] DEPARTMENT OF PATHOLOGY Comment: AND GENOMIC MEDICINE Specimen Information Specimen Source: Peritoneal fluid Specimen Site: Peritoneal Specimen Peritoneal fluid - Peritoneal Performing Organization Address City/[facility] Phone Number [facility] DEPARTMENT OF PATHOLOGY AND [address] [place] [phone] GENOMIC MEDICINE Aerobic culture (07/18/2017 10:00 AM) Aerobic culture isolate No growth after 3 days. [facility] DEPARTMENT OF Comment: PATHOLOGY AND GENOMIC Specimen Information MEDICINE Specimen Source: Peritoneal fluid Specimen Site: Peritoneal Specimen Peritoneal fluid - Peritoneal Performing Organization Address City/[facility] Phone Number [facility] DEPARTMENT OF PATHOLOGY AND [address] [place] [phone] [facility] MEDICINE Gram stain (07/18/2017 10:00 AM) Gram stain isolate Rare WBC's [facility] DEPARTMENT OF PATHOLOGY No organisms seen AND GENOMIC MEDICINE Comment: Specimen Information Specimen Source: Peritoneal fluid Specimen Site: Peritoneal Specimen Peritoneal fluid - Peritoneal Performing Organization Address [facility] Phone Number [facility] DEPARTMENT OF PATHOLOGY AND [address] [place], [place] [id number] [facility] Fungus culture (07/18/2017 10:00 AM) Fungus culture isolate No growth after 4 weeks of incubation. [facility] DEPARTMENT OF Comment: PATHOLOGY AND GENOMIC Specimen Information MEDICINE Specimen Source: Peritoneal fluid Specimen Site: Peritoneal Specimen Peritoneal fluid - Peritoneal Performing Organization Address [facility] Phone Number [facility] DEPARTMENT OF PATHOLOGY AND [address] [place] [phone] GENOMIC MEDICINE Anaerobic culture (07/18/2017 10:00 AM) Anaerobic culture No anaerobic organisms isolated. [facility] DEPARTMENT OF isolate Comment: PATHOLOGY AND GENOMIC Specimen Information MEDICINE Specimen Source: Peritoneal fluid Specimen Site: Peritoneal Specimen Peritoneal fluid - Peritoneal Performing Organization Address City/[facility]/Zipcode Phone Number [facility] DEPARTMENT OF PATHOLOGY AND [address] [place] [phone] GENOMIC MEDICINE Cell count and differential, body fluid (07/18/2017 10:00 AM) [facility] fluid type PD fluid [facility] DEPARTMENT OF PATHOLOGY AND GENOMIC MEDICINE Color, fluid Colorless [facility] DEPARTMENT OF PATHOLOGY AND GENOMIC MEDICINE Appearance, fluid Clear [facility] DEPARTMENT OF PATHOLOGY AND GENOMIC MEDICINE RBC, fluid SEE COMMENTComment: 1+ (0 - /CMM [facility] DEPARTMENT OF 500 RBC/CMM) PATHOLOGY AND GENOMIC MEDICINE Nucleated cells, fluid 29 /CMM [facility] DEPARTMENT OF PATHOLOGY AND GENOMIC MEDICINE Fluid mononuclear cell SEE COMMENT [facility] DEPARTMENT OF Comment: PATHOLOGY AND GENOMIC Footnote--------- MEDICINE Unable to perform differential due to very low count. Specimen Fluid Performing Organization Address City/State/Zipcode Phone Number [facility] DEPARTMENT OF PATHOLOGY [address] [place] [address] Abdomen Pelvis Wo Contrast (07/18/2017 9:02 AM) Narrative Performed At EXAMINATION:CT ABDOMEN PELVIS WO CONTRAST [facility] CLINICAL HISTORY:ABDOMINAL PAIN TECHNIQUE: Multiple axial images of the abdomen and pelvis were obtained without intravenous administration of iodinated contrast. Sagittal and coronal computerized reformatted images were also obtained. The lack of intravenous contrast reduces the sensitivity of detecting solid organ disease.CT imaging was performed with iterative reconstruction technique and/or automated exposure control to reduce radiation dose. COMPARISON:None. FINDINGS: Abdomen: Heart size is moderately enlarged. There is moderate pericardial effusion. There is coronary artery calcification. Bilateral lower lung dependent atelectasis is seen. Bilateral perihilar atelectasis and bronchial wall thickening are noted. Liver, gallbladder, spleen, adrenals are normal in appearance. Several right and a couple left tiny renal calyceal stones are seen. A few small hypodensities in both kidneys are likely cysts but not optimally evaluated without contrast. No hydroureter is seen. Surgical clips are seen in the right lower quadrant. Appendix is not definitely seen. Umbilical hernia containing fat only is seen. Pelvis: Bladder is unremarkable. Drainage catheter seen in the pelvis.Suspicious osseous lesion is not seen. IMPRESSION: There is cardiomegaly. Tiny bilateral pleural effusions are seen. Small pericardial effusion is seen. Tiny bilateral renal calyceal stones are present without hydronephrosis. [id number] Procedure Note Interface, Radiology Results Incoming - 07/18/2017 9:14 AM ROUTING MACHINE OPERATOR EXAMINATION: CT ABDOMEN PELVIS WO CONTRAST CLINICAL HISTORY: ABDOMINAL PAIN TECHNIQUE: Multiple axial images of the abdomen and pelvis were obtained without intravenous administration of iodinated contrast. Sagittal and coronal computerized reformatted images were also obtained. The lack of intravenous contrast reduces the sensitivity of detecting solid organ disease.CT imaging was performed with iterative reconstruction technique and/or automated exposure control to reduce radiation dose. COMPARISON: None. FINDINGS: Abdomen: Heart size is moderately enlarged. There is moderate pericardial effusion. There is coronary artery calcification. Bilateral lower lung dependent atelectasis is seen. Bilateral perihilar atelectasis and bronchial wall thickening are noted. Liver, gallbladder, spleen, adrenals are normal in appearance. Several right and a couple left tiny renal calyceal stones are seen. A few small hypodensities in both kidneys are likely cysts but not optimally evaluated without contrast. No hydroureter is seen. Surgical clips are seen in the right lower quadrant. Appendix is not definitely seen. Umbilical hernia containing fat only is seen. Pelvis: Bladder is unremarkable. Drainage catheter seen in the pelvis.Suspicious osseous lesion is not seen. IMPRESSION: There is cardiomegaly. Tiny bilateral pleural effusions are seen. Small pericardial effusion is seen. Tiny bilateral renal calyceal stones are present without hydronephrosis. [id number] Performing Organization Address [facility] Phone Number [address] [address] Lactic acid level, SEPSIS - Now and repeat 2x every 3 hours (07/18/2017 4:11 AM )Only the most recent of3 resultswithin the time period is included. Lactic acid 0.6 0.5 - 2.2 mmol/L [facility] DEPARTMENT OF PATHOLOGY AND GENOMIC MEDICINE Specimen Plasma specimen Performing Organization Address [facility] Phone Number [facility] DEPARTMENT OF PATHOLOGY [address] [place] [address] AND [facility] Blood culture, aerobic & anaerobic (07/17/2017 4:55 PM)Only the most recent of2 resultswithin the time period is included. Blood culture isolate No growth after 5 days of incubation. [facility] DEPARTMENT OF Comment: PATHOLOGY AND GENOMIC Specimen Information MEDICINE Specimen Source: Blood Specimen Site: Hand, right Specimen Blood - Hand, right Performing Organization Address [facility]/Zipcode Phone Number [facility] DEPARTMENT OF PATHOLOGY AND [address] [place] [id number] [facility] Lipase level (07/17/2017 4:55 PM) Lipase 48 13 - 60 U/L [facility] DEPARTMENT OF PATHOLOGY AND GENOMIC MEDICINE Specimen Plasma specimen Performing Organization Address [facility] Phone Number [facility] DEPARTMENT OF PATHOLOGY [id number] [place] [address] AND [facility] Comprehensive metabolic panel (07/17/2017 4:55 PM) Sodium 134 (L) 135 - 148 mEq/L [facility] DEPARTMENT OF PATHOLOGY AND GENOMIC MEDICINE Potassium 4.6 3.5 - 5.0 mEq/L [facility] DEPARTMENT OF PATHOLOGY AND GENOMIC MEDICINE Chloride 96 (L) 98 - 112 mEq/L [facility] DEPARTMENT OF PATHOLOGY AND GENOMIC MEDICINE CO2 25 24 - 31 mEq/L [facility] DEPARTMENT OF PATHOLOGY AND GENOMIC MEDICINE Anion gap 13 7 - 15 mEq/L [facility] DEPARTMENT OF Comment: PATHOLOGY AND GENOMIC Starting from September , anion gap calculation MEDICINE no longer incorporates potassium. Please note the change. BUN 22 (H) 6 - 20 mg/dL [facility] DEPARTMENT OF PATHOLOGY AND GENOMIC MEDICINE Creatinine 3.8 (H) 0.7 - 1.2 mg/dL [facility] DEPARTMENT OF PATHOLOGY AND GENOMIC MEDICINE Glucose 138 (H) 65 - 99 mg/dL [facility] DEPARTMENT OF PATHOLOGY AND GENOMIC MEDICINE Calcium 8.7 8.3 - 10.2 mg/dL [facility] DEPARTMENT OF PATHOLOGY AND GENOMIC MEDICINE Protein 6.8 6.3 - 8.3 g/dL [facility] DEPARTMENT OF PATHOLOGY AND GENOMIC MEDICINE Albumin 2.8 (L) 3.5 - 5.0 g/dL [facility] DEPARTMENT OF PATHOLOGY AND GENOMIC MEDICINE A/G ratio 0.7 0.7 - 3.8 [facility] DEPARTMENT OF PATHOLOGY AND GENOMIC MEDICINE Alkaline phosphatase 69 40 - 129 U/L [facility] DEPARTMENT OF PATHOLOGY AND GENOMIC MEDICINE AST 20 10 - 50 U/L [facility] DEPARTMENT OF PATHOLOGY AND GENOMIC MEDICINE ALT 6 5 - 50 U/L [facility] DEPARTMENT OF PATHOLOGY AND GENOMIC MEDICINE Total bilirubin <0.2 0.2 - 1.2 mg/dL [facility] DEPARTMENT OF PATHOLOGY AND GENOMIC MEDICINE Specimen Plasma specimen Performing Organization Address City/State/Zipcode Phone Number [facility] DEPARTMENT OF PATHOLOGY [id number] [facility] [place] [address] AND [employer] MEDICINE after 01/23/2017 Insurance Payer Benefit Plan / Group Subscriber ID Type Phone Address SILVIA CARCAMO xxxxxxxxxxxx O MEDICARE MEDICARE PART A AND B xxxxxxxxxx Medicare [place], [place] Home: [address] [place], [place] [phone] [place], [place] [phone]
--- OUTSIDE RECORDS SUMMARY | 2018-01-24 17:54 | XMS REPORT | Clinical Summary ---
:1965 Author Organization [facility] Address [address] [place] [address] Phone Care Team Providers Name Role Phone Unavailable Primary Care Provider Unavailable Allergies Active Allergy Reactions Severity Noted Date Comments Sulfa (Sulfonamide Antibiotics) 06/08/2017 Current Medications Prescription Sig. Disp. Refills Start Date End Date Status amLODIPine (NORVASC) Take 10 mg by Active 10 MG tablet mouth daily. atorvastatin Take 80 mg by Active (LIPITOR) 80 MG mouth daily. tablet clopidogrel (PLAVIX) Take 75 mg by Active 75 mg tablet mouth daily. metoprolol Take 100 mg by Active (LOPRESSOR) 100 MG mouth 2 (two) tablet times daily. nitroglycerin Place 1 patch Active (NITRODUR) 0.2 mg/hr onto the skin patch daily as needed. aspirin 81 MG EC Take 81 mg by Active tablet mouth daily. nitroglycerin Place 0.4 mg Active (NITROSTAT) 0.4 MG under the SL tablet tongue daily as needed for Chest pain Put 1 pill under tongue every 5min as needed for chest pain.No more than 3 doses in 15min.Call 911 if pain is unrelieved 5min after 1st dose . pantoprazole Take 40 mg by Active (PROTONIX) 40 MG mouth daily. tablet promethazine Take 25 mg by Active (PHENERGAN) 25 MG mouth every 6 tablet (six) hours as needed for Nausea. ranolazine (RANEXA) Take 1,000 mg Active 500 MG 12 hr tablet by mouth 2 (two) times daily. furosemide (LASIX) Take 80 mg by Active 80 MG tablet mouth 2 (two) times daily. metoclopramide Take 5 mg by Active (REGLAN) 5 MG tablet mouth 3 (three) times daily. ondansetron (ZOFRAN) Take 4 mg by Active 4 MG tablet mouth every 6 (six) hours as needed for Nausea. zolpidem (AMBIEN) 5 Take 5 mg by Active MG tablet mouth every night as needed for Insomnia. hydrALAZINE Take 25 mg by Discontinued (APRESOLINE) 25 MG mouth 2 (two) 8 tablet times daily. lisinopril Take 1 tablet 30 tablet 0 06/16/2017 (PRINIVIL,ZESTRIL) (20 mg total) 8 20 MG tablet by mouth daily for 30 days. Active Problems Problem Noted Date Renal failure 06/08/2017 Encounters Date Type Specialty Care Team Description 07/15/2017 Telephone Transplant Rosanne Staton 07/14/2017 Telephone Transplant Merlin Harley, Follow-up RN 07/14/2017 Abstract Transplant Giovanni Anguiano 06/14/2017 Orders Only General Internal Medicine 06/14/2017 Anesthesia Event Osman Hall MD 06/14/2017 Procedure Pass 06/14/2017 Surgery Oppertrina, LAPAROSCOPY,INSERT Abdiel Griffin PERITONEAL CATHETER 06/08/2017 - Hospital Encounter General Internal Bala Traore 06/15/2017 Medicine MD Nabila after 01/23/2017 Social History Tobacco Use Types Packs/Day Years Used Date Never Smoker Smokeless Tobacco: Never Used Sex Assigned at Date Recorded Not on file Last Filed Vital Signs Vital Sign Reading Time Taken Blood Pressure 124/61 06/15/2017 4:00 PM BUSINESS INTELLIGENCE ETL DEVELOPER Pulse 66 06/15/2017 4:00 PM BUSINESS INTELLIGENCE ETL DEVELOPER Temperature 36.3 C (97.3 F) 06/15/2017 4:00 PM BUSINESS INTELLIGENCE ETL DEVELOPER Respiratory Rate 18 06/15/2017 4:00 PM BUSINESS INTELLIGENCE ETL DEVELOPER Oxygen Saturation 96% 06/15/2017 4:00 PM BUSINESS INTELLIGENCE ETL DEVELOPER Inhaled Oxygen Concentration - - Weight 97 kg (213 lb 12.8 oz) 06/08/2017 10:42 PM BUSINESS INTELLIGENCE ETL DEVELOPER Height 190.5 cm (6' 3") 06/08/2017 10:42 PM BUSINESS INTELLIGENCE ETL DEVELOPER Body Mass Index 26.72 06/08/2017 10:42 PM BUSINESS INTELLIGENCE ETL DEVELOPER Plan of Treatment Not on file Implants Implanted Type Area Human Development Professor Device Expiration Model / Identifier Date Serial / Lot Cath Peritoneal Dyls 57cm 2cuf [id number] - Sn/A Catheter N/A: COVIDIEN: SHAZIA 02/17/2021 [id number] / Implanted: Qty: 1 on 06/14/2017 by Abdiel Ivory MD Dialysis Abdomen L N/A / Long-Term [id number] Procedures Procedure Name Priority Date/Time Associated Diagnosis Comments LAPAROSCOPY,INSERT 06/14/2017 11:00 AM Renal Failure PERITONEAL CATHETER BUSINESS INTELLIGENCE ETL DEVELOPER after 01/23/2017 Results RHYTHM STRIP - SCAN (07/04/2017 3:42 PM)Only the most recent of2 resultswithin the time period is included.CARDIAC CATH REPORT - SCAN (07/04/2017 11:13 AM) Only the most recent of2 resultswithin the time period is included.EKG-SCANNED ( 06/16/2017 10:50 AM)POC-Glucose meter (06/15/2017 5:28 PM)Only the most recent of27 resultswithin the time period is included. Component Value Ref Range POC-Glucose Meter 243 (H)Comment: TESTED AT [facility] [address] [facility], [place] [address] 70 - 110 mg/dL [facility] [address] Specimen Performing Laboratory Blood [facility] [address] [address] CBC with platelet count + automated diff (06/15/2017 12:59 PM)Only the most recent of3 resultswithin the time period is included. Component Value Ref Range WBC 6.8 4.0 - 10.0 K/L RBC 2.92 (L) 4.20 - 5.80 M/L Hemoglobin 8.4 (L) 13.0 - 16.8 GM/DL Hematocrit 25.5 (L) 40.0 - 50.0 % MCV 87.4 82.0 - 98.0 fL MCH 28.7 27.0 - 33.0 pg MCHC 32.8 32.0 - 36.0 GM/DL RDW 14.7 (H) 10.3 - 14.2 % Platelets 299 150 - 430 K/CU MM MPV 6.9 6.5 - 10.5 fL nRBC 0 0 - 0 /100 WBC % Neutros 65 % % Lymphs 18 % % Monos 14 % % Eos 3 % % Baso 1 % # Neutros 4.40 1.80 - 8.00 K/L # Lymphs 1.20 (L) 1.48 - 4.50 K/L # Monos 1.00 0.00 - 1.30 K/L # Eos 0.20 0.00 - 0.50 K/L # Baso 0.00 0.00 - 0.20 K/L Specimen Performing Laboratory Blood [facility] [address] [place] [address] CBC with platelet count + automated diff (06/15/2017 12:59 PM)Only the most recent of3 resultswithin the time period is included. Specimen Performing Laboratory Blood Narrative The following orders were created for panel order CBC with platelet count + automated diff. Procedure Abnormality Status --------- ------ CBC with platelet count ...[[id number]]AbnormalFinal result Please view results for these tests on the individual orders. Magnesium (06/15/2017 12:59 PM)Only the most recent of2 resultswithin the time period is included. Component Value Ref Range Magnesium 1.9 1.5 - 3.0 mg/dL Specimen Performing Laboratory Blood [facility] [address] [place] [address] Basic Metabolic Panel (06/15/2017 12:59 PM)Only the most recent of2 resultswithin the time period is included. Component Value Ref Range Sodium 139 135 - 148 meq/L Potassium 3.4 (L) 3.6 - 5.5 meq/L Chloride 101 98 - 106 meq/L CO2 29 20 - 29 meq/L BUN 11 10 - 26 mg/dL Creatinine 2.10 (H) 0.50 - 1.20 mg/dL Glucose 157 (H) 70 - 110 mg/dL Calcium 8.6 8.5 - 10.5 mg/dL EGFR 33Comment: ESTIMATED GFR IS NOT ACCURATE mL/min/1.73 sq m CREATININE CLEARANCE IN PREDICTING GLOMERULAR FILTRATION RATE. ESTIMATED GFR IS NOT APPLICABLE FOR DIALYSIS PATIENTS. Specimen Performing Laboratory Blood [facility] [address] [place] [address] POC-TCO2 (06/14/2017 10:22 AM) Component Value Ref Range POC-TCO2 30 (H)Comment: TESTED AT [address] 22 - 29 meq/L [place] [address] Specimen Performing Laboratory Blood [address] [address] POC-Chloride (06/14/2017 10:22 AM) Component Value Ref Range POC-Chloride 97 (L)Comment: TESTED AT [address] 98 - 107 meq/ L [place] [address] Specimen Performing Laboratory Blood [address] [address] POC-BUN (06/14/2017 10:22 AM) Component Value Ref Range POC-BUN 20Comment: TESTED AT [address] 7 - 21 mg /dL [facility] Specimen Performing Laboratory Blood [address] [address] POC-Creatinine (06/14/2017 10:22 AM) Component Value Ref Range POC-Creatinine 3.6 (H)Comment: TESTED AT [address] 0.6 - 1.3 mg/dL [place] [address] POC-EGFR 18 mL/min/1.73M2 Specimen Performing Laboratory Blood [address] [address] POCT-HEMATOCRIT (06/14/2017 10:22 AM) Component Value Ref Range POC-Hematocrit 24 (L)Comment: TESTED AT [address] 40 - 50 % [place] [address] Specimen Performing Laboratory Blood [address] [address] POCT-HEMOGLOBIN (06/14/2017 10:22 AM) Component Value Ref Range POC-Hemoglobin 8.2 (L)Comment: TESTED AT [address] 13.0 - 16.8 g/dL [place] [address] Specimen Performing Laboratory Blood [address] [address] POCT-GLUCOSE (06/14/2017 10:22 AM) Component Value Ref Range POC-Glucose 123 (H)Comment: TESTED AT [address] 70 - 110 mg/ dL [place] [address] Specimen Performing Laboratory Blood [address] [address] POC-Sodium (06/14/2017 10:22 AM) Component Value Ref Range POC-Sodium 138Comment: [address] [facility] 135 - 148 meq/L [place] [address] Specimen Performing Laboratory Blood [facility] [address] [place] [address] POC-Potassium (06/14/2017 10:22 AM) Component Value Ref Range POC-Potassium 3.6Comment: TESTED AT [facility] [address] [facility] [place] [address] 3.6 - 5.5 meq/[place] [address] Specimen Performing Laboratory Blood [facility] [address] [place] [address] TRANSFUSION SERVICE REPORT - SCAN (06/13/2017 5:30 PM)ECHOCARDIOGRAM REPORT - SCAN (06/13/2017 2:20 PM)2D Echo W/Doppler(CW/PW/Color) (06/13/2017 7:42 AM) Component Value Ref Range Ejection Fraction Specimen Performing Laboratory [facility] ECHO [facility]ART[facility] MKCKESSON CPACS Narrative Transthoracic Echocardiography Report (TTE) Demographics Patient Name YUSUF DARBY Date of Study 06/13/2017 [id number] Male Visit Number [id number] Accession Number [id number] Room Number B432 Date of Birth1965Referring Physician Age52 year(s)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 Clinical History ANEMIA CHF CKD DM ESRD GERD HLD HTN PVD Height: 75 inches Weight: 96.62 kg (213 lbs) BSA: 2.25 m^2 BMI: 26.62 kg/m^2 HR: 65 bpm BP: 130/71 mmHg Summary Left ventricular size is normal. Mild concentric LVH The visual ejection fraction was estimated 55-60 %. Trileaflet calcified valve There is trace aortic regurgitation. There is no aortic stenosis. No pericardial effusion is visualized. Trace mitral regurgitation. Mild tricuspid regurgitation. Estimated peak systolic PA pressure is 30-35 mmHg . Normal PV structure. Signature Findings Left Ventricle Left ventricular size is normal. Mild concentric LVH The visual ejection fraction was estimated 55-60 %. Left AtriumLA size is normal . Right VentricleThe right ventricular cavity size is normal . Right Atrium RA size is normal. Aortic Valve Trileaflet calcified valve There is trace aortic regurgitation. There is no aortic stenosis. Mitral Valve Trace mitral regurgitation. Tricuspid ValveMild tricuspid regurgitation. Estimated peak systolic PA pressure is 30- 35 mmHg . Pulmonic Valve Normal PV structure. PericardiumNo pericardial effusion is visualized. Chambers/Structures Left Atrium LA Dimension: 4.41 cm Left Ventricle LVIDd: 5.38 cm LVEDV:139.92 ml LVIDs: 3.7 cmLVESV: 58.2 ml LV Septum Diastolic: 1.49 cm LV Septum Systolic: 2.07 cmLV Length: 8.93 cm LV PW Diastolic: 1.5 cmLV FS: 31.2 % LV PW Systolic: 1.81 cm LVEDV Moe's:113.1 ml LVEDVI: 50 ml/m^2 LVESV Moe's:53.64 ml LVESVI: 24 ml/m^2 LVEF Moe's: 52.6 % LVOT Diameter: 2.3 cm LVEF: 58.4 % Right Atrium RA Systolic Pressure: 10 mmHg Right Ventricle RV Systolic Pressure: 30.62 mmHg Aorta Ao Root S of Miranda.: 3.58 cm Doppler/Quantitative Measurements Mitral Valve MV Peak E-Wave: 1.32 m/sMV Peak A-Wave: 0.32 m/s P1/2t: 45.1 msecE/A Ratio: 4.12 Peak Velocity: 1.34 m/s Peak Gradient: 7.01 mmHg Mean Velocity: 0.47 m/s Deceleration Time: 158.9 msec Mean Gradient: 1.56 mmHgArea (continuity): 3.74 cm ^2 MV Area (PHT): 4.88 cm^2MR Velocity: 3.23 m/s MV VTI: 23.21 cm MV Melvin. Peak: Tissue Doppler E' Septal Velocity: 0.05 m/s E' Lateral Velocity: 0.06 m/s Aortic Valve Peak Velocity: 1.27 m/sMean Velocity: 0.88 m/s Peak Gradient: 6.47 mmHg Mean Gradient: 3.48 mmHg AV Area (continuity): 3.39 cm^2 AV VTI: 25.57 cm Cusp Separation: 1.87 cm AV DVI: 0.82 LVOT Peak Velocity: 1.03 m/s Peak Gradient: 4.24 mmHg Mean Velocity: 0.67 m/s Mean Gradient: 2.04 mmHg LVOT Diameter: 2.3 cm LVOT VTI: 20.88 cm LVOT Area: 4.15 cm^2LVOT SV:86.71 ml LVOT CO: 5.64 l/min LVOT CI: 2.51 l/min/m^2 Tricuspid Valve Estimated RVSP: 31.09 mmHg Estimated RAP: 10 mmHg TR Velocity: 2.27 m/s TR Gradient: 20.62 mmHg Pulmonic Valve Peak Velocity: 1.27 m/s Peak Gradient: 6.46 mmHg Estimated PASP: 30.62 mmHg Procedure Note Interface, External Ris In - 06/13/2017 1:51 PM BUSINESS INTELLIGENCE ETL DEVELOPER Transthoracic Echocardiography Report (TTE) Demographics Patient Name YUSUF DARBY Date of Study 06/13/2017 Gender Male Visit Number [id number] Race Unknown Accession Number [id number] Room Number [id number] Date of 1965 Referring Physician Age 52 year(s) 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 Clinical History ANEMIA CHF CKD DM ESRD GERD HLD HTN PVD Height: 75 inches Weight: 96.62 kg (213 lbs) BSA: 2.25 m^2 BMI: 26.62 kg/m^2 HR: 65 bpm BP: 130/71 mmHg Summary Left ventricular size is normal. Mild concentric LVH The visual ejection fraction was estimated 55-60 %. Trileaflet calcified valve There is trace aortic regurgitation. There is no aortic stenosis. No pericardial effusion is visualized. Trace mitral regurgitation. Mild tricuspid regurgitation. Estimated peak systolic PA pressure is 30-35 mmHg . Normal PV structure. Signature Findings Left Ventricle Left ventricular size is normal. Mild concentric LVH The visual ejection fraction was estimated 55-60 %. Left Atrium LA size is normal . Right Ventricle The right ventricular cavity size is normal . Right Atrium RA size is normal. Aortic Valve Trileaflet calcified valve There is trace aortic regurgitation. There is no aortic stenosis. Mitral Valve Trace mitral regurgitation. Tricuspid Valve Mild tricuspid regurgitation. Estimated peak systolic PA pressure is 30-35 mmHg . Pulmonic Valve Normal PV structure. Pericardium No pericardial effusion is visualized. Chambers/Structures Left Atrium LA Dimension: 4.41 cm Left Ventricle LVIDd: 5.38 cm LVEDV:139.92 ml LVIDs: 3.7 cm LVESV:58.2 ml LV Septum Diastolic: 1.49 cm LV Septum Systolic: 2.07 cm LV Length: 8.93 cm LV PW Diastolic: 1.5 cm LV FS: 31.2 % LV PW Systolic: 1.81 cm LVEDV Moe's:113.1 ml LVEDVI: 50 ml/m^2 LVESV Moe's:53.64 ml LVESVI: 24 ml/m^2 LVEF Moe's: 52.6 % LVOT Diameter: 2.3 cm LVEF: 58.4 % Right Atrium RA Systolic Pressure: 10 mmHg Right Ventricle RV Systolic Pressure: 30.62 mmHg Aorta Ao Root S of Miranda.: 3.58 cm Doppler/Quantitative Measurements Mitral Valve MV Peak E-Wave: 1.32 m/s MV Peak A-Wave: 0.32 m/s P1/2t: 45.1 msec E/A Ratio: 4.12 Peak Velocity: 1.34 m/s Peak Gradient: 7.01 mmHg Mean Velocity: 0.47 m/s Deceleration Time: 158.9 msec Mean Gradient: 1.56 mmHg Area (continuity): 3.74 cm^2 MV Area (PHT): 4.88 cm^2 MR Velocity: 3.23 m/s MV VTI: 23.21 cm MV Melvin. Peak: Tissue Doppler E' Septal Velocity: 0.05 m/s E' Lateral Velocity: 0.06 m/s Aortic Valve Peak Velocity: 1.27 m/s Mean Velocity: 0.88 m/s Peak Gradient: 6.47 mmHg Mean Gradient: 3.48 mmHg AV Area (continuity): 3.39 cm^2 AV VTI: 25.57 cm Cusp Separation: 1.87 cm AV DVI: 0.82 LVOT Peak Velocity: 1.03 m/s Peak Gradient: 4.24 mmHg Mean Velocity: 0.67 m/s Mean Gradient: 2.04 mmHg LVOT Diameter: 2.3 cm LVOT VTI: 20.88 cm LVOT Area: 4.15 cm^2 LVOT SV:86.71 ml LVOT CO: 5.64 l/min LVOT CI: 2.51 l/min/m^2 Tricuspid Valve Estimated RVSP: 31.09 mmHg Estimated RAP: 10 mmHg TR Velocity: 2.27 m/s TR Gradient: 20.62 mmHg Pulmonic Valve Peak Velocity: 1.27 m/s Peak Gradient: 6.46 mmHg Estimated PASP: 30.62 mmHg Prothrombin time/INR (06/12/2017 3:29 PM) Component Value Ref Range Protime 10.3 9.3 - 12.0 seconds INR 1.0 <=5.9 Specimen Performing Laboratory Blood [facility] [address] [place] [address] Narrative RECOMMENDED COUMADIN/WARFARIN INR THERAPY RANGES STANDARD DOSE: 2.0 - 3.0 Includes: PROPHYLAXIS for venous thrombosis, systemic embolization; TREATMENT for venous thrombosis and/or pulmonary embolus. HIGH RISK: Target INR is 2.5-3.5 for patients with mechanical heart valves. Type and screen ([facility]) (06/12/2017 3:29 PM) Component Value Ref Range Ab Scrn NEGATIVE ABO Grouping A Rh Factor POS Specimen Performing Laboratory Blood [facility] [address] [place] [address] TSH (06/12/2017 3:29 PM) Component Value Ref Range TSH 2.09 0.35 - 5.50 uIU/mL Specimen Performing Laboratory Blood [facility] [address] [place] [address] Comprehensive metabolic panel (06/12/2017 3:29 PM) Component Value Ref Range Protein, Total 7.2 6.0 - 8.5 gm/dL Albumin 3.5 3.5 - 5.0 g/dL Alkaline Phosphatase 67 30 - 115 U/L Total Bilirubin 0.3 0.1 - 1.2 mg/dL Sodium 136 135 - 148 meq/L Potassium 4.1 3.6 - 5.5 meq/L Chloride 98 98 - 106 meq/L CO2 26 20 - 29 meq/L BUN 32 (H) 10 - 26 mg/dL Creatinine 4.40 (H) 0.50 - 1.20 mg/dL Glucose 212 (H) 70 - 110 mg/dL Calcium 9.0 8.5 - 10.5 mg/dL AST 14 5 - 40 U/L ALT 4 (L) 5 - 50 U/L EGFR 14Comment: ESTIMATED GFR IS NOT ACCURATE mL/min/1.73 sq m CREATININE CLEARANCE IN PREDICTING GLOMERULAR FILTRATION RATE. ESTIMATED GFR IS NOT APPLICABLE FOR DIALYSIS PATIENTS. Specimen Performing Laboratory Blood [facility] [address] [place] [address] XR chest 1 view portable / bedside (06/10/2017 8:17 AM) Specimen Performing Laboratory GE RIS Narrative FINAL REPORT TECHNIQUE: Frontal chest radiograph dated 06/10/2017. CLINICAL HISTORY: Outpatient HD placement COMPARISON STUDY: None IMPRESSION: Right sided internal jugular venous catheter is seen with the tip. Increased interstitial lung markings are compatible with interstitial edema. No focal consolidation. No pleural effusion or pneumothorax. Cardiomediastinal silhouette is normal in size. No fracture. Signed: Louis Hammer MD Report Verified Date/Time:06/10/2017 08:49:42 Reading Location: [facility] Radiology Reading Room Procedure Note Interface, External Ris In - 06/10/2017 8:51 AM BUSINESS INTELLIGENCE ETL DEVELOPER FINAL REPORT TECHNIQUE: Frontal chest radiograph dated 06/10/2017. CLINICAL HISTORY: Outpatient HD placement COMPARISON STUDY: None IMPRESSION: Right sided internal jugular venous catheter is seen with the tip. Increased interstitial lung markings are compatible with interstitial edema. No focal consolidation. No pleural effusion or pneumothorax. Cardiomediastinal silhouette is normal in size. No fracture. Signed: Louis Hammer MD Report Verified Date/Time: 06/10/2017 08:49:42 Reading Location: [facility] Radiology Reading Room Hepatitis B core antibody, total (06/10/2017 8:13 AM) Component Value Ref Range Hep B Core Total Ab Nonreactive Nonreactive Specimen Performing Laboratory Blood - Arm, Left [address] [address] Hepatitis B surface antibody (06/09/2017 7:06 PM) Component Value Ref Range Hep B S Ab <8.0 <8.0 mIU/mL Specimen Performing Laboratory Blood - Central Venous Line [address] [address] Hepatitis B surface antigen (06/09/2017 7:06 PM) Component Value Ref Range hepatitis B Surface Ag Nonreactive Nonreactive Specimen Performing Laboratory Blood - Central Venous Line [facility] [address] [place] [address] IR Tunneled Catheter Insertion (06/09/2017 11:45 AM) Specimen Performing Laboratory GE RIS Narrative FINAL REPORT Tunneled central venous catheter insertion. History: End-stage renal disease Modality: Sonography and fluoroscopy. Sedation: Moderate sedation was administered. 2 mg of Versed [id number] mcg of fentanyl IV was used for moderate sedation monitored under my direction. Total intra-service time of sedation [id number]. The patient's vital signs were monitored throughout the procedure and recorded in the patient's medical record by the nurse. Cocoa Powder Mixer Operator:Onesimo Lopez MD. Conference Service Coordinator:None. Approach: Right internal jugular vein Estimated blood loss:< 5 cc. Specimen: None. Fluoroscopy Time: 0.4 min. Reference Air Kerma (Ka, r): 11.0 mGy. Technique: Informed written consent was obtained. Discussion of risks, benefits, and alternatives were made with the patient. The patient expressed understanding and agreed to proceed.A universal timeout was performed prior to starting the procedure.All elements maximal sterile barrier technique was utilized [...] direct real-time ultrasound guidance with a micropuncture needle.An ultrasound image was saved to PACS. A 0.018 inch wire was placed through the needle into the right atrium. A 4 Uzbek micropuncture sheath was placed.A subcutaneous tunnel was created in the right anterior chest wall by blunt dissection.A 19 cm tipped cuff 15.5 Uzbek Duraflow 2 catheter was brought through the tunnel. A peel-away sheath was placed in the right IJ vein and the catheter was advanced through the sheath, with its distal tip terminating in the right atrium.The peel-away sheath was removed. The ports were flushed and aspirated easily following placement.The catheter was sutured to the skin with Prolene to secure its placement.The small jugular incision site was closed using Dermabond. Vital signs were monitored throughout the procedure by a nurse, and remained stable.The patient tolerated the procedure well and left the department in the same condition.The patient was given 1 gram of Ancef intravenously during the procedure. Results:Spot radiograph of the chest demonstrates the new tunneled central venous catheter to lie in the expected position with its tip overlying the superior right atrium. Impression: Successful, uncomplicated placement of a right internal jugular tunneled dialysis catheter using sonographic and fluoroscopic guidance and conscious sedation.The catheter is ready for immediate use. Signed: Onesimo Lopez MD Report Verified Date/Time:06/09/2017 12:13:36 Reading Location: [facility] Radiology Reading Room Procedure Note Interface, External Ris In - 06/09/2017 12:21 PM BUSINESS INTELLIGENCE ETL DEVELOPER FINAL REPORT Tunneled central venous catheter insertion. History: End-stage renal disease Modality: Sonography and fluoroscopy. Sedation: Moderate sedation was administered. 2 mg of Versed and 100 mcg of fentanyl IV was used for moderate sedation monitored under my direction. Total intra-service time of sedation was 30 minutes. The patient's vital signs were monitored throughout the procedure and recorded in the patient's medical record by the nurse. Cocoa Powder Mixer Operator: Onesimo Lopez MD. Conference Service Coordinator: None. Approach: Right internal jugular vein Estimated blood loss: < 5 cc. Specimen: None. Fluoroscopy Time: 0.4 min. Reference Air Kerma (Ka, r): 11.0 mGy. Technique: Informed written consent was obtained. Discussion of risks, benefits, and alternatives were made with the patient. The patient expressed understanding and agreed to proceed. A universal timeout was performed prior to starting the [...] needle into the right atrium. A 4 Uzbek micropuncture sheath was placed. A subcutaneous tunnel was created in the right anterior chest wall by blunt dissection. A 19 cm tipped cuff 15.5 Uzbek Duraflow 2 catheter was brought through the [...] and left the department in the same condition. The patient was given 1 gram of Ancef [...] is ready for immediate use. Signed: Onesimo Lopez MD Report Verified Date/Time: 06/09/2017 12:13:36 Reading Location: [facility] Radiology Reading Room /aPTT (06/09/2017 5:15 AM) Component Value Ref Range Protime 10.7 9.3 - 12.0 seconds INR 1.0 <=5.9 PTT 28.5 23.0 - 35.0 seconds Specimen Performing Laboratory Blood - Arm, [facility] [address] [place] [address] Narrative RECOMMENDED COUMADIN/WARFARIN INR THERAPY RANGES STANDARD DOSE: 2.0 - 3.0 Includes: PROPHYLAXIS for venous thrombosis, systemic embolization; TREATMENT for venous thrombosis and/or pulmonary embolus. HIGH RISK: Target INR is 2.5-3.5 for patients with mechanical heart valves. Phosphorus (06/09/2017 5:15 AM) Component Value Ref Range Phosphorus 4.1 2.5 - 4.5 mg/dL Specimen Performing Laboratory Blood - [facility], [facility] [address] [place] [id number] Hepatic function panel (06/09/2017 5:15 AM) Component Value Ref Range Protein, Total 6.3 6.0 - 8.5 gm/dL Albumin 3.2 (L) 3.5 - 5.0 g/dL Total Bilirubin 0.4 0.1 - 1.2 mg/dL Bilirubin, Direct 0.2 0.0 - 0.4 mg/dL Alkaline Phosphatase 67 30 - 115 U/L AST 13 5 - 40 U/L ALT 10 5 - 50 U/L Specimen Performing Laboratory Blood - [facility] [address] [place] [id number] after 01/23/2017
[2018-01-24] MEDS ORDERED: NA CHLORIDE 0.9% 1,000 ML ONE (18:53)
[2018-01-24] MEDS ORDERED: PROMETHAZINE 25 MG/ML VIAL ONE ×2 (18:53→21:25)
[2018-01-24 19:12] LABS: Absolute Lymphocytes (CBC) 0.9 K/uL (0.7-4.9); Absolute Monocytes 0.8 K/uL (0.1-1.3); Basophils % 1.3 % (0-1.3); Eosinophils % 4.3 % (0-4.4); Hematocrit 31.2 % (39.6-49.0); Lymphocytes % 12.7 % (15.3-44.8); MCH 30.3 pg (27.0-35.0); MCV 89.8 fL (80-100); MPV 6.9 fL (7.6-11.3); Monocytes % 11.3 % (3.3-12.3); RBC Red Blood Cell Count 3.47 M/uL (4.33-5.43)
[2018-01-24] MEDS ORDERED: MORPHINE 4 MG/ML SYR ONE (19:12)
[2018-01-24 19:33] LABS: Urine Blood 1+ (NEG); Urine Glucose 1+ (NEG); Urine Protein 3+ (NEG); Urine Specific Gravity 1.025 (1.005-1.030)
[2018-01-24 19:35] LABS: Urine Bacteria <20 /HPF (NONE SEEN)
[2018-01-24 19:36] LABS: Urine Amorphous Sediment 1+ /HPF (NONE SEEN); Urine Culture Reflex Order NOT NEEDED
[2018-01-24 20:27] LABS: Albumin 3.3 g/dL (3.4-5.0); Bilirubin Direct 0.2 mg/dL (0-0.2); Bilirubin Total 0.6 mg/dL (0.2-1.0); Potassium 3.7 mmol/L (3.5-5.1); Protein, Total 6.9 g/dL (6.4-8.2)
[2018-01-24] MEDS ORDERED: HYDRALAZINE HCL 20 MG/ML VIAL ONE (21:02)
[2018-01-24] MEDS ORDERED: PANTOPRAZOLE 40 MG INJ ONE (21:25)
--- NOTE | 2018-01-24 21:27 | EDPHYS ---
Physician Documentation [facility] Name: Yusuf Bah Age: 52 yrs Sex: Male : 1965 Arrival Date: 01/24/2018 Time: 17:54 Bed 16 Private MD: Garo Chavarria ED Physician Mehdi Umana HPI: 01/24 18:58 This 52 yrs old Male presents to ER via Ambulatory with complaints of tw4 Vomiting. 18:58 The patient presents to the emergency department with nausea, with "dry heaves", tw4 vomiting. 18:59 Onset: The symptoms/episode began/occurred 3 day(s) ago. The symptoms are aggravated by tw4 nothing. The symptoms are alleviated by nothing. Associated signs and symptoms: The patient has no apparent associated signs or symptoms. Severity of symptoms: At their worst the symptoms were moderate in the emergency department the symptoms are unchanged. The patient has not experienced similar symptoms in the past. Historical: - Allergies: 18:02 Sulfa (Sulfonamide Antibiotics); aj1 - Home Meds: 18:02 aspirin 81 mg Oral TbEC 1 tab nightly [Active]; atorvastatin 80 mg Oral tab 1 tab once aj1 daily [Active]; Humalog Sub-Q per insulin pump [Active]; hydralazine 25 mg Oral tab 1 tab 2 times per day [Active]; Lasix 20 mg Oral tab 1 tab once daily [Active]; Norvasc 10 mg Oral tab 1 tab once daily [Active]; metoprolol tartrate 50 mg Oral tab once daily [Active]; Plavix 75 mg Oral tab 1 tab once daily [Active]; promethazine 25 mg Oral tab 1 tab q 6 hrs prn [Active]; Protonix 40 mg Oral TbEC 1 tab 2 times per day [Active]; Ranexa 500 mg Oral TM12 1 tab daily [Active]; sertraline 50 mg Oral tab 1 tab once daily [Active]; - PMHx: 18:02 Angina; CAD; Diabetes - IDDM; Diabetes - NIDDM; GERD; Glaucoma; High Cholesterol; aj1 Hypertension; Renal Disease; Small vessle disease of the heart; - Immunization history:: Flu vaccine is up to date. - Social history:: Smoking status: Patient/guardian denies using tobacco. - Ebola Screening: : Patient denies travel to an Ebola-affected area in the 21 days before illness onset. ROS: 18:59 Constitutional: Negative for fever, chills, and weight loss, Cardiovascular: Negative tw4 for chest pain, palpitations, and edema, Respiratory: Negative for shortness of breath, cough, wheezing, and pleuritic chest pain, MS/Extremity: Negative for injury and deformity, Skin: Negative for injury, rash, and discoloration. Exam: 18:59 Constitutional: This is a well developed, well nourished patient who is awake, alert, tw4 and in no acute distress. Head/Face: Normocephalic, atraumatic. Chest/axilla: Normal chest wall appearance and motion. Nontender with no deformity. No lesions are appreciated. Cardiovascular: Regular rate and rhythm with a normal S1 and S2. No gallops, murmurs, or rubs. Normal PMI, no JVD. No pulse deficits. Respiratory: Lungs have equal breath sounds bilaterally, clear to auscultation and percussion. No rales, rhonchi or wheezes noted. No increased work of breathing, no retractions or nasal flaring. 18:59 MS/ Extremity: Pulses equal, no cyanosis. Neurovascular intact. Full, normal range of motion. Neuro: Awake and alert, GCS 15, oriented to person, place, time, and situation. Cranial nerves II-XII grossly intact. Motor strength 5/5 in all extremities. Sensory grossly intact. Cerebellar exam normal. Normal gait. 18:59 Abdomen/GI: Inspection: abdomen appears normal, Bowel sounds: normal, Palpation: moderate abdominal tenderness, in the epigastric area. Vital Signs: 18:02 BP 203 / 101; Pulse 88; Resp 18; Temp 98.7; Pulse Ox 97% on R/A; Weight 92.53 kg (R); aj1 Height 6 ft. 3 in. (190.50 cm); Pain 6/10; 19:20 BP 202 / 89; Pulse 79; Resp 18; Pulse Ox 97% on R/A; mt 20:30 BP 185 / 99; Pulse 81; Resp 14; Pulse Ox 92% ; bp 21:28 BP 184 / 97; Pulse 88; Resp 14; Pulse Ox 95% ; bp 21:55 BP 177 / 61; Pulse 83; Resp 14; Pulse Ox 95% ; bp 18:02 Body Mass Index 25.50 (92.53 kg, 190.50 cm) aj1 MDM: 18:18 Patient medically screened. [facility] 01/24 18:27 Order name: Amylase, Serum; Complete Time: 20:47 [facility] 01/24 20:48 Interpretation: Within normal limits: LISET 41. 01/24 18:27 Order name: Basic Metabolic Panel; Complete Time: 20:47 [facility] 01/24 20:48 Interpretation: Normal except: GLUC 138; GFR 10; CRE 5.80; BUN 31. [facility] 01/24 18:27 Order name: CBC with Diff; Complete Time: 20:47 [facility] 01/24 20:47 Interpretation: Normal except: RBC 3.47; HGB 10.5; HCT 31.2; MCV 89.8; MCH 30.3; RDW tw4 15.7; MPV 6.9; LYM% 12.7. 01/24 18:27 Order name: Creatinine for Radiology; Complete Time: 20:47 [facility] 01/24 20:47 Interpretation: Normal except: CRE 5.80; GFR 10. [facility] 01/24 18:27 Order name: Hepatic Function; Complete Time: 20:47 [facility] 01/24 20:47 Interpretation: Normal except: ALB 3.3; GLOB 3.6; A/G 0.9. [facility] 01/24 18:27 Order name: Lipase; Complete Time: 20:47 [facility] 01/24 20:48 Interpretation: Within normal limits: LIP 188. 01/24 18:27 Order name: Urine Microscopic Only; Complete Time: 20:47 [facility] 01/24 19:17 Order name: Urine Dipstick--Ancillary (enter results); Complete Time: 20:47 [facility] 01/24 20:48 Interpretation: Normal except: UBLD 1+; UPROT 3+. 01/24 21:31 Order name: CONS Pharmacy Consult [facility] 01/24 21:31 Order name: NPO [facility] 01/24 18:27 Order name: IV Saline Lock; Complete Time: 19:22 [facility] 01/24 18:27 Order name: Labs collected and sent; Complete Time: 19:22 [facility] 01/24 18:27 Order name: Urine Dipstick-Ancillary (obtain specimen); Complete Time: 19:22 Administered Medications: 18:55 Drug: Phenergan 12.5 mg Route: IVP; Site: right wrist; bp 19:30 Follow up: Response: Nausea is decreased bp 19:02 CANCELLED (Physician Discretion): NS 0.9% 1000 ml IV at 1 bolus Per protocol; 1000 mL tw4 bolus 19:15 Drug: morphine 4 mg Route: IVP; Site: right wrist; bp 20:15 Follow up: Response: Pain is decreased bp 21:00 Drug: hydrALAZINE 10 mg Route: IV; Rate: bolus; Site: right wrist; bp 21:00 Follow up: IV Status: Completed infusion bp 21:54 Follow up: Response: No adverse reaction bp Disposition: 01/24/18 21:26 Hospitalization ordered by Garo Chavarria for Observation. Preliminary diagnosis is Cyclical vomiting, intractable. - Bed requested for Telemetry/MedSurg (observation). - Status is Observation. bp - Condition is Stable. - Problem is new. - Symptoms have improved. UTI on Admission? No Signatures: Dispatcher [employer] EDMS Heber Storm rg2 Katheryn Lees RN RN aj1 Kaiser Peters RN RN bp Mehdi Umana MD MD tw4 Corrections: (The following items were deleted from the chart) 18:59 18:58 Onset: The symptoms/episode began/occurred yesterday, tw4 tw4 19:02 18:27 NS 0.9% 1000 ml IV at 1 bolus Per protocol; 1000 mL bolus ordered. tw4 tw4 20:48 20:47 Normal except: GLUC 138; GFR 10. tw4 tw4 21:44 21:26 Hospitalization Ordered by Garo Chavarria MD for Observation. Preliminary diagnosis rg2 is Cyclical vomiting, intractable. Bed requested for Telemetry/MedSurg (observation). Status is Observation. Condition is Stable. Problem is new. Symptoms have improved. UTI on Admission? No. tw4 22:21 21:44 01/24/2018 21:26 Hospitalization Ordered by Garo Chavarria MD for Observation. bp Preliminary diagnosis is Cyclical vomiting, intractable. Bed requested for Telemetry/MedSurg (observation). Status is Observation. Condition is Stable. Problem is new. Symptoms have improved. UTI on Admission? No. rg2
--- NOTE | 2018-01-24 21:27 | ER ---
Nurse's Notes [facility] Name: Yusuf Bah Age: 52 yrs Sex: Male : 1965 Arrival Date: 01/24/2018 Time: 17:54 Bed 16 Private MD: Garo Murphy Diagnosis: Cyclical vomiting, intractable Presentation: 01/24 17:59 Presenting complaint: Patient states: Vomiting for the past 3 days. States that he has aj1 been unable to keep anything down. Reports having issues like this for a year, but no one has been able to figure out what is wrong with him. Reports lower back pain. Denies diarrhea, fever. Transition of care: patient was not received from another setting of care. Onset of symptoms was January 21, 2018. Risk Assessment: Do you want to hurt yourself or someone else? Patient reports no desire to harm self or others. Initial Sepsis Screen: Does the patient meet any 2 criteria? No. Patient's initial sepsis screen is negative. Does the patient have a suspected source of infection? No. Patient's initial sepsis screen is negative. Care prior to arrival: None. 17:59 Method Of Arrival: Ambulatory aj 17:59 Acuity: ALVERTO 3 aj1 Triage Assessment: 18:02 General: Appears in no apparent distress. uncomfortable, Behavior is calm, cooperative. aj1 Pain: Complains of pain in back Pain currently is 6 out of 10 on a pain scale. Neuro: Level of Consciousness is awake, alert, obeys commands. Cardiovascular: Patient's skin is warm and dry. Respiratory: Airway is patent Respiratory effort is even, unlabored, Respiratory pattern is regular, symmetrical. GI: Reports nausea, vomiting. Historical: - Allergies: 18:02 Sulfa (Sulfonamide Antibiotics); aj1 - Home Meds: 18:02 aspirin 81 mg Oral TbEC 1 tab nightly [Active]; atorvastatin 80 mg Oral tab 1 tab once aj1 daily [Active]; Humalog Sub-Q per insulin pump [Active]; hydralazine 25 mg Oral tab 1 tab 2 times per day [Active]; Lasix 20 mg Oral tab 1 tab once daily [Active]; Norvasc 10 mg Oral tab 1 tab once daily [Active]; metoprolol tartrate 50 mg Oral tab once daily [Active]; Plavix 75 mg Oral tab 1 tab once daily [Active]; promethazine 25 mg Oral tab 1 tab q 6 hrs prn [Active]; Protonix 40 mg Oral TbEC 1 tab 2 times per day [Active]; Ranexa 500 mg Oral TM12 1 tab daily [Active]; sertraline 50 mg Oral tab 1 tab once daily [Active]; - PMHx: 18:02 Angina; CAD; Diabetes - IDDM; Diabetes - NIDDM; GERD; Glaucoma; High Cholesterol; aj1 Hypertension; Renal Disease; Small vessle disease of the heart; - Immunization history:: Flu vaccine is up to date. - Social history:: Smoking status: Patient/guardian denies using tobacco. - Ebola Screening: : Patient denies travel to an Ebola-affected area in the 21 days before illness onset. Screenin:00 Abuse screen: Denies threats or abuse. Denies injuries from another. Nutritional bp screening: No deficits noted. Tuberculosis screening: No symptoms or risk factors identified. Fall Risk None identified. Assessment: 19:00 General: Appears in no apparent distress. uncomfortable, Behavior is calm, cooperative, bp appropriate for age. Pain: Complains of pain in low back area and epigastric area. Neuro: Level of Consciousness is awake, alert, obeys commands, Oriented to person, place, time, situation, Appropriate for age. Cardiovascular: No deficits noted. Respiratory: Airway is patent Respiratory effort is even, unlabored, Respiratory pattern is regular, symmetrical. GI: Reports epigastric pain. : No signs and/or symptoms were reported regarding the genitourinary system. EENT: No deficits noted. Derm: No deficits noted. Musculoskeletal: Circulation, motion, and sensation intact. Range of motion: intact in all extremities. 20:30 Reassessment: ALL CURRENT ORDERS COMPLETED. PT SEEN BY DR MURPHY. DISPO PENDING. bp 21:28 Reassessment: PER NEPHROLOGY, PT TO BE OBS OVERNIGHT FOR NAUSEA/VOMITING CONTROL. ADMIT bp IN PROCESS. 21:56 Reassessment: ALL CURRENT ORDERS COMPLETED, ADMIT IN PROCESS. bp Vital Signs: 18:02 BP 203 / 101; Pulse 88; Resp 18; Temp 98.7; Pulse Ox 97% on R/A; Weight 92.53 kg (R); aj1 Height 6 ft. 3 in. (190.50 cm); Pain 6/10; 19:20 BP 202 / 89; Pulse 79; Resp 18; Pulse Ox 97% on R/A; mt 20:30 BP 185 / 99; Pulse 81; Resp 14; Pulse Ox 92% ; bp 21:28 BP 184 / 97; Pulse 88; Resp 14; Pulse Ox 95% ; bp 21:55 BP 177 / 61; Pulse 83; Resp 14; Pulse Ox 95% ; bp 18:02 Body Mass Index 25.50 (92.53 kg, 190.50 cm) aj1 ED Course: 17:54 Patient arrived in ED. sb2 17:54 Garo Murphy MD is Private Physician. sb2 18:00 Triage completed. aj1 18:02 Arm band placed on Patient placed in waiting room, Patient notified of wait time. aj1 18:18 Mehdi Umana MD is Attending Physician. tw4 18:46 Sejal Nolan, LUIZ is Primary Nurse. ph 18:55 Inserted saline lock: 20 gauge in right wrist, using aseptic technique. bp 19:00 Patient has correct armband on for positive identification. Bed in low position. Call bp light in reach. Side rails up X2. Adult w/ patient. 20:28 Notified ED physician of a critical lab result(s). creat 5.8. fc 21:24 Garo Murphy MD is Hospitalizing Provider. tw4 22:02 No provider procedures requiring assistance completed. Patient admitted, IV remains in bp place. Administered Medications: 18:55 Drug: Phenergan 12.5 mg Route: IVP; Site: right wrist; bp 19:30 Follow up: Response: Nausea is decreased bp 19:02 CANCELLED (Physician Discretion): NS 0.9% 1000 ml IV at 1 bolus Per protocol; 1000 mL tw4 bolus 19:15 Drug: morphine 4 mg Route: IVP; Site: right wrist; bp 20:15 Follow up: Response: Pain is decreased bp 21:00 Drug: hydrALAZINE 10 mg Route: IV; Rate: bolus; Site: right wrist; bp 21:00 Follow up: IV Status: Completed infusion bp 21:54 Follow up: Response: No adverse reaction bp Outcome: 21:26 Decision to Hospitalize by Provider. tw4 22:01 Condition: stable bp 22:01 Instructed on the need for admit. 22:02 Admitted to Med/surg accompanied by tech, family with patient, via wheelchair, room bp 216, with chart, Report called to ELENA DEE 22:21 Patient left the ED. bp Signatures: Katheryn Lees RN RN aj1 Venecia Calix RN RN Sejal Nolan RN RN Robbi, [facility] Fran, Kaiser, LUIZ RN bp Mehdi Umana MD MD tw4 Deisy Huff sb2 Corrections: (The following items were deleted from the chart) 19:22 19:21 Phenergan 12.5 mg IVP in right wrist bp bp 19:23 09:00 Phenergan 12.5 mg IVP in right wrist bp bp
[2018-01-24 23:15] VITALS: BMI 25.0
[2018-01-24] MEDS ORDERED: AMLODIPINE 5 MG TAB PO ONE (23:47)
[2018-01-25] MEDS: ACETAMINOPHEN 500 MG TAB PO PRN ×2 (00:17→17:02)
[2018-01-25] MEDS ORDERED: CLINDAMYCIN IV 150 MG/ML (6 mL) VIAL ONE (00:45)
[2018-01-25 07:43] VITALS: O2SAT 94
[2018-01-25] MEDS: METOCLOPRAMIDE 5 MG TAB PO SCH ×3 (09:38→21:19)
[2018-01-25] MEDS: PROMETHAZINE 25 MG/ML VIAL IV PRN ×2 (10:06→17:03)
--- NOTE | 2018-01-25 11:14 | RAD REPORT ---
EXAM DESCRIPTION: RAD - Chest Single View - 01/25/2018 11:06 am CLINICAL HISTORY: COPD Chest pain. COMPARISON: Chest Single View dated 06/08/2017; Chest Single View dated 06/06/2017; Chest Single Vie w dated 06/03/2017; Chest Pa And Lat (2 Views) dated 06/02/2017; Chest Abd Pelvis Wo Con dated 08/13/19 18 FINDINGS: Portable technique limits examination quality. The lungs are grossly clear. The heart is normal in size. No displaced fractures.Right-sided venous c atheter has tip in the SVC. IMPRESSION: No acute intrathoracic process suspected.
[2018-01-25] MEDS ORDERED: D50W 25 GM/50 ML SYRINGE IV PRN (11:26)
[2018-01-25] MEDS ORDERED: GLUCAGON 1 MG/VIAL IM PRN (11:26)
[2018-01-25] MEDS ORDERED: ZOLPIDEM TARTRATE 5 MG TABLET PO PRN (11:27)
[2018-01-25] MEDS ORDERED: ONDANSETRON 4 MG (ODT) TAB PO PRN (11:27)
--- NOTE | 2018-01-25 11:28 | RAD REPORT ---
EXAM DESCRIPTION: US - Renal Ultrasound-Complete - 01/25/2018 11:14 am CLINICAL HISTORY: CHON COMPARISON: Renal Ultrasound-Complete dated 05/30/2017 FINDINGS: Both kidneys demonstrate mild increased echogenicity. The right kidney measures 11.1 x 5.9 x 5.8 cm. No hydronephrosis. Multiple renal cysts are present. The left kidney measures 11.1 x 6.4 x 5.1 cm. No hydronephrosis. Multiple renal cysts are present. The urinary bladder is incompletely distended without gross abnormality seen. IMPRESSION: Bilateral echogenic kidneys most compatible with medical renal disease.
[2018-01-25] MEDS: INSULIN -REGULAR HUMAN 50 UNIT/0.5 ML ML SQ SCH ×3 (11:30→21:20)
[2018-01-25] MEDS: ASPIRIN 325 MG TAB PO SCH (12:07)
[2018-01-25] MEDS: SEVELAMER CARBONATE 800 MG TABLET PO SCH ×2 (12:07→17:04)
[2018-01-25] MEDS: AMLODIPINE 10 MG TAB PO SCH (12:08)
[2018-01-25] MEDS: CLOPIDOGREL 75 MG TABLET PO SCH (12:08)
[2018-01-25] MEDS: METOPROLOL TAR 50 MG TAB PO SCH ×2 (12:09→21:17)
[2018-01-25] MEDS: HYDRALAZINE HCL 25 MG TABLET PO SCH ×2 (12:09→21:17)
[2018-01-25] MEDS: FUROSEMIDE 40 MG TABLET PO SCH (17:03)
--- NOTE | 2018-01-25 17:07 | HP ---
Date of Admission: 01/24/2018 Chief Complaint: Nausea, vomiting. History Of Present Illness: A 52-year-old male patient, who has multiple medical problems including diabetes mellitus with nephropathy and gastroparesis, has almost daily problem with nausea and vomiti ng due to gastroparesis which is well controlled with his metoclopramide that he takes on a regular b asis and he uses Phenergan on a p.r.n. basis. He did try to stop metoclopramide sometime ago and he was not able to tolerate that, so he went back on it and combination of this medication has provided him the best possible relief that he has seen, but still continues to have nausea with vomiting at le ast once a day. In last 3 days, his problem got bad enough that he was not able to keep any food or liquids down as he reported when he called my office and he was asked to come into the emergency room . Denies any fever, chills. No hematemesis. No abdominal pain. No diarrhea or constipation. Afte r he was evaluated in ER, he was admitted to hospital under my service. Allergies: TO SULFA CAUSING RASH AND HIVES. Medications: According to office record, he is on amlodipine 10 mg daily, aspirin 325 mg daily; ator vastatin 80 mg daily; clopidogrel 75 mg p.o. daily; famotidine 40 mg p.o. daily; furosemide 40 mg 2 t imes every day; Humalog insulin through insulin pump; hydralazine 25 mg tablet, takes 3 tablets 2 juan es a day; metoclopramide 5 mg, takes 3 times a day; metoprolol 100 mg 2 times a day; Nitrostat p.r.n. ; Zofran p.r.n.; Ranexa 1000 mg daily; sertraline 50 mg p.o. daily; sevelamer 800 mg, takes 2 tablets 3 times a day; stool softener 100 mg 2 times a day; Travatan eye drops, 1 drop every day in each eye ; vitamin D2 50,000 units every week; and zolpidem 5 mg at bedtime as needed. Past Medical History: Significant for hypertension, type 2 diabetes mellitus with chronic kidney dis ease, ASCVD, anemia due to chronic kidney disease, hyperlipidemia, gastritis, end-stage renal disease , diabetic gastroparesis, and chronic backache. Past Surgical History: Significant for rotator cuff surgery, appendectomy, and eye surgery. Family History: Significant for throat cancer, tuberculosis, diabetes mellitus, hypertension. Social History: Negative for smoking, alcohol use. Review of Systems: GI: As mentioned above. All other systems reviewed and negative. Physical Examination: Vital Signs: When he came into emergency room, temperature 98.7, pulse 88, respiratory rate 18, bloo d pressure 203/101. Height 6 feet 3 inches, weight 200 pounds. General: Awake, alert, oriented, not in distress. HEENT: Head atraumatic, normocephalic. Conjunctivae nonerythematous. Sclerae white. Mouth, no thr ush or edema noted. Ears/Nose, no mass, lesion, discharge noted. Neck: Supple. No JVD, lymph nodes, bruit, thyromegaly noted. Lungs: Bilateral good equal air entry. Clear to auscultation. No rhonchi. No rales. Heart: Normal heart sounds, no murmur or gallop. Abdomen: Soft, bowel sounds normal. No guarding, rigidity, tenderness, mass, hepatosplenomegaly, dis tention, or bruit noted. Extremities: No leg edema. No calf tenderness. Skin: No rash, ulcer, cellulitis. Lymphatics: No lymph node enlargement in neck, supraclavicular, infraclavicular region. Neuro: No focal neurological deficit. Chest: Unremarkable. External Genitalia: Deferred. Rectal: Deferred. Laboratory Data: White count 7.1, hemoglobin 10.5, platelets 234. Sodium 140, potassium 3.7, chlori de 105, bicarb 27, BUN 31, creatinine 5.80, glucose 138. Liver function tests unremarkable. Amylase 41, lipase 188. Urinalysis negative. Impression: 1.Intractable nausea with vomiting. 2.Diabetic gastroparesis. 3.Hypertension. 4.Type 2 diabetes mellitus with chronic kidney disease. 5.Hyperlipidemia. 6.Coronary artery disease. 7.Chronic gastritis. 8.Insomnia. Plan: We will go ahead and admit the patient to hospital for further evaluation and management of th is problem. We will go ahead and give symptomatic treatment for nausea. Blood pressure is elevated. We will control with antihypertensive medication per order. Home medications will be continued per order. I will see him tomorrow morning for followup. We will not give any IV fluid considering his end-stage renal disease problem. Depending on his condition tomorrow, we will decide if he ends up staying in the hospital, then we will consider Nephrology consultation for dialysis in the hospital. Otherwise, we might be able to discharge him if he tolerates a diet in the morning. ERNESTO/NESSA Voice ID: [id number]
[2018-01-25] MEDS ORDERED: FAMOTIDINE 20 MG TAB PO SCH (21:00)
[2018-01-25] MEDS: DOCUSATE NA/SENNA CONC 1 TAB PO SCH (21:19)
[2018-01-25] MEDS ORDERED: cloNIDine HCl 0.1 MG TAB PO PRN (23:02)
[2018-01-25] MEDS ORDERED: TRAMADOL HCL 50 MG TAB PO PRN (23:05)
[2018-01-26] MEDS: PROMETHAZINE 25 MG/ML VIAL IV PRN (00:14)
--- NOTE | 2018-01-26 03:49 | PN ---
Date of Progress Note: 01/25/2018 Subjective: The patient was seen this morning for followup. No vomiting overnight. No abdominal pa in. No other new complaints. Objective: Vital Signs: Reviewed. HEENT: Unremarkable. Lungs: Clear to auscultation. Heart: Sounds normal. Abdomen: Soft. Bowel sounds normal. No guarding, rigidity, tenderness, or distention. Extremities: No leg edema. Impression: 1.Intractable nausea and vomiting. 2.Diabetic gastroparesis. 3.Hypertension. 4.End-stage renal disease, on hemodialysis. 5.Coronary artery disease. Plan: We will go ahead and consult sign hanger for the patient's dialysis needs. Home medications will be given per order and I will see him tomorrow for followup. Diet was ordered and we will give him his medications for nausea as well as metoprolol per MARD. Blood pressure is elevated and we hawa l make decision about medication adjustment depending on his blood pressure. ERNESTO/MODL Voice ID: [id number] Report ID: [id number]
--- NOTE | 2018-01-26 05:14 | CON ---
Date of Consultation: 01/25/2018 NEPHROLOGY CONSULTATION Consulting Physician: Hospitalist. Reason For Consultation: Elevated BUN and creatinine, hypertension. History Of Present Illness: This is a 52-year-old gentleman with significant past medical history of diabetes complicated with neuropathy; retinopathy, and nephropathy; hypertension; peripheral vascula r disease; coronary artery disease complicated with congestive heart failure; diastolic dysfunction; end-stage renal disease, on hemodialysis, Tuesday, Tuesday, Tuesday at [facility]. T he patient came to the hospital complaining from abdominal pain, nausea, and vomiting. We have been consulted to maintain his dialysis. Last dialysis was on Tuesday. Past Medical History: As above. Social History: Denies smoking, denies drinking, denies drug abuse. Family History: Positive for coronary artery disease. Past Surgical History: Include cardiac cath, appendectomy, PermCath placement and removal. Home Medications: Include 1.Lactulose. 2.Promethazine. 3.Nitroglycerin. 4.Metoclopramide. 5.Hydralazine. 6.Ranexa. 7.Stool softener. 8.Plavix. 9.Zoloft. Current Medications In The Hospital: 1.Clonidine 0.1 as needed. 2.Pepcid. 3.Lasix. 4.Insulin. 5.Metoprolol. 6.Zoloft. Review of Systems: Head and Neck: No red eye. No ear pain. GI: Has abdominal pain. Has nausea, vomiting. : No polyuria. No dysuria. No hematuria. HOUSEKEEPING COORDINATOR: Not applicable. Respiratory: No shortness of breath. Cardiovascular: No chest pain. Neuro: No weakness. Musculoskeletal: No joint pain. Endocrine: No polydipsia. Skin: No rash. Physical Examination: Vital Signs: When I saw the patient, blood pressure 192/95, pulse of 70. Chest: Clear to auscultation. Heart: S1, S2. Regular. Abdomen: Soft, nontender. Extremities: No edema. Laboratory Data: WBC 7.1, H and H 10.5/31.2, platelet 234. Sodium 140, potassium 3.7, bicarb 27, BU N 30, creatinine 5.8, calcium 9.3. Renal ultrasound 11.1 x 11.1. Assessment And Plan: 1.End-stage renal disease. We will arrange for the patient for dialysis after the CT angio. 2.Hypertension, uncontrolled. I am going to go ahead and increase his hydralazine to 50 t.i.d., and we will follow up the patient. 3.Abdominal pain, had full GI workup before, was negative. We will consider to do a CT angio to rul e out any mesenteric ischemia. 4.Coronary artery disease. 5.Congestive heart failure, stable. We will follow up. BRAYAN Voice ID: [id number] Report ID: [id number]
[2018-01-26 06:03] LABS: Albumin 3.1 g/dL (3.4-5.0); Phosphorus 5.2 mg/dL (2.5-4.9); Potassium 4.6 mmol/L (3.5-5.1); Thyroid Stimulating Hormone 0.92 uIU/mL (0.36-3.74)
[2018-01-26] MEDS: INSULIN -REGULAR HUMAN 50 UNIT/0.5 ML ML SQ SCH ×3 (07:30→16:35)
[2018-01-26] MEDS: SEVELAMER CARBONATE 800 MG TABLET PO SCH ×3 (08:06→16:35)
--- NOTE | 2018-01-26 08:23 | RAD REPORT ---
EXAM DESCRIPTION: - CT ANGIO ABD/PELVIS W CONTRAST - 01/26/2018 7:47 am CLINICAL HISTORY: Abdominal pain, end-stage renal disease, vomiting and nausea, dialysis patient COMPARISON: None. TECHNIQUE: During dynamic enhancement using 100 milliliters nonionic IV contrast, axial 3 mm thick i mages of the chest and abdomen were obtained. Sagittal and coronal reconstruction imaging performed u sing MIP algorithm. All CT scans are performed using dose optimization technique as appropriate and may include automated exposure control or mA/KV adjustment according to patient size. FINDINGS: Lung base images show small bilateral pleural effusions. Trace amount of pericardial effus ion is seen. Heart size is upper normal. No acute or focal abnormalities of the liver, spleen or pancreas. No gallbladder or biliary tree abno rmality seen. Gallstones can be occult. Contrast-enhanced imaging shows some low-level renal function . This is symmetric. No hydronephrosis. Low-density masses of the renal parenchyma are strongly favor ed to be benign cysts. No acute bowel finding. There is a large amount of stool distending the rectum and sigmoid portions o f the colon. Urinary bladder is partially contracted which accentuates wall thickness. No bladder lashawn culus. No free air, free fluid or inflammatory stranding. Patient has a small fat only umbilical hernia. The celiac, superior mesenteric and inferior mesenteric artery show normal diameter. No thrombus, [place] nosis or other suspicious finding. The vasculature and the bowel dyer do not have any indication of ischemia. Main renal arteries show no stenosis or suspicious finding. There is a small accessory lacho l artery on the right also without a suspicious finding. Aorta shows no aneurysm. Patient generally s hows very little vascular calcification for a end-stage renal disease patient. IMPRESSION: No evidence for mesenteric ischemia. No significant calcifications, stenosis or signific ant arterial side finding. Nonacute findings are detailed in the body of the report. No emergent finding seen. Small bilateral pleural effusions not fully assessed.
[2018-01-26] MEDS ORDERED: HEPARIN 5000 UNIT/ML 1 ML VIAL SQ SCH (09:00)
[2018-01-26] MEDS ORDERED: ATORVASTATIN 80 MG TAB PO SCH (09:00)
[2018-01-26] MEDS ORDERED: SERTRALINE HCL 50 MG TAB PO SCH (09:00)
[2018-01-26] MEDS: FUROSEMIDE 40 MG TABLET PO SCH ×2 (09:02→16:35)
[2018-01-26] MEDS: HYDRALAZINE HCL 25 MG TABLET PO SCH ×3 (09:02→16:35)
[2018-01-26] MEDS: ASPIRIN 325 MG TAB PO SCH (09:02)
[2018-01-26] MEDS: CLOPIDOGREL 75 MG TABLET PO SCH (09:02)
[2018-01-26] MEDS: AMLODIPINE 10 MG TAB PO SCH (09:03)
[2018-01-26] MEDS: METOCLOPRAMIDE 5 MG TAB PO SCH ×2 (09:03→15:12)
[2018-01-26] MEDS: METOPROLOL TAR 50 MG TAB PO SCH (09:03)
[2018-01-26] MEDS: DOCUSATE NA/SENNA CONC 1 TAB PO SCH (09:04)
--- NOTE | 2018-01-26 15:03 | PN ---
Date of Progress Note: 01/26/2018 Chief Complaint: End-stage renal disease, on dialysis. History Of Present Illness: The patient has history of peripheral neuropathy, retinopathy, nephropathy due to diabetes complicated, history of diabetes mellitus and peripheral vascular disease, coronary artery disease with congestive heart failure, diastolic dysfunction. The patient is dialysis dependent. He has end-stage renal disease due to diabetic kidney disease. The patient is undergoing treatment with dialysis on Tuesday, Tuesday, Tuesday. The patient presented to the hospital for evaluation and had abdominal workup. He was scheduled to have CT angiogram to rule out mesenteric ischemia. He had workup done last night and dialysis is requested after IV contrast exposure to prevent contrast induced hyperkalemia. Review of Systems: Denies fever, chills. Abdominal pain is subsiding. Denies nausea, vomiting, melena, hematemesis. Denies PND, orthopnea. Physical Examination: Lungs: Clear to auscultation bilaterally. Heart: S1-S2. Abdomen: Soft. Benign. Extremities: Minimal edema. Vital Signs: Blood pressure 197/93, heart rate 65, temperature 97.2. Laboratory Data: Hemoglobin 10.5, WBC 7.1, platelet count is 234,000. Sodium 139, potassium 4.6, chloride 104, CO2 29, BUN 48, creatinine 7.2, glucose 166, phosphorus 5.2, calcium 8.6, albumin 3.1. Impression And Plan: 1. End-stage renal disease. The patient will have dialysis after IV contrast exposure. Continue to monitor electrolytes. 2. Hypertension, uncontrolled. Continue blood pressure medication. Increase blood pressure medication for adequate blood pressure control. 3. Abdominal pain, questionable mesenteric ischemia after the workup with surgical team. 4. Renal osteodystrophy. Continue renal diet and binders. I spent total 36 min including 26 min to coordinate care plan. ESTELA/NESSA Voice ID: [id number] Report ID: [id number] MARYAM
[2018-01-26 16:36] VITALS: BP 158/74
[2018-01-26 17:46] VITALS: TEMP 97.8
--- NOTE | 2018-01-26 18:12 | RAD REPORT ---
EXAM DESCRIPTION: RAD - Spine Lumbar W obliques - 01/26/2018 6:03 pm CLINICAL HISTORY: back pain Radiculopathy COMPARISON: No comparisons FINDINGS: Vertebral body heights appear maintained. No compression fracture noted. Disc thinning wit h minimal retrolisthesis of L5 on S1 is seen. No spondylolysis or spondylolisthesis. IMPRESSION: Mild to moderate L5-S1 spondylosis.
--- NOTE | 2018-01-27 03:19 | DS ---
Date of Discharge: 01/26/2018 Disposition: Discharged to go home. Physical Examination: HEENT: Unremarkable. Lungs: Clear to auscultation. Heart: Sounds normal. Abdomen: Soft. Bowel sounds normal. No guarding, rigidity, tenderness, or distention. Extremities: No leg edema. Laboratory Data: Today sodium 139, potassium 4.6, chloride 104, bicarb 28, BUN 48, creatinine 7.20, glucose 166, TSH 0.920. X-ray of lumbosacral spine shows evidence of spondylosis. Hospital Course: A 52-year-old male patient who came into emergency room with intractable nausea wit h vomiting for 3 days. Please see dictated H and P for more information. After the patient was eval uated in the ER, he was admitted to the hospital under my service. Warehouse Guard was consulted for hi s dialysis and the patient gets dialysis on Tuesday, Tuesday, Tuesday, but digital retoucher performed jan lysis today. The patient is complaining of some lower back pain and says he had fallen down maybe a couple of weeks ago so x-ray of the lumbosacral spine was done which did reveal presence of some spon dylosis, no evidence of any fracture. His nausea with vomiting is due to underlying diabetic gastrop aresis and this is his chronic ongoing problem. He is planning to see Dr. Rosenberg on an outpatient ba sis and I have encouraged him to go ahead and keep that appointment for his ongoing nausea with vomit ing problem which he has it almost on a daily basis and from time to time he has spells like this whe re he cannot keep anything down. As of yesterday, he is able to tolerate his diet very well and he w as discharged to go home in stable condition today. The patient's blood pressure was elevated and of the time it remained between systolic 180-190 range and I did order clonidine on a p.r.n. basis as of yesterday evening and we will go ahead and continue that at home as per prescription. I will see him for followup. Final Diagnoses: 1.Intractable nausea with vomiting. 2.Diabetic gastroparesis. 3.Hypertension. 4.Type 2 diabetes mellitus with chronic kidney disease. 5.Hyperlipidemia. 6.Coronary artery disease. 7.Chronic gastritis. 8.Insomnia. 9.Lumbar spondylosis. Discharge Medication Instructions: 1.Continue all prior home medications. 2.Take clonidine 0.1 mg p.o. 3 times a day. 3.Follow up in my office in 2 weeks. ERNESTO/NESSA Voice ID: [id number] Report ID: [id number]
[2018-01-27] MEDS ORDERED: LOSARTAN POTASSIUM 50 MG TABLET PO SCH (09:00)
[2018-01-28 19:21] LABS: HBsAG Nonreactive (Nonreactive)
== END 2018-01-26 18:32 | disposition home or self-care (01) ==
LOC: ER 17:51 → 2ND 21:48
PROVIDERS: ADMIT Internal Medicine; ATTEND Internal Medicine
PROC: 5A1D70Z Performance of Urinary Filtration, Intermittent, Less than 6 Hours Per Day (ICD-10-PCS; principal; 2018-01-26)
DX: E11.43 Type 2 diabetes mellitus with diabetic autonomic (poly)neuropathy (principal); K31.84 Gastroparesis; I25.10 Atherosclerotic heart disease of native coronary artery without angina pectoris; I13.2 Hypertensive heart and chronic kidney disease with heart failure and with stage 5 chronic kidney disease, or end stage renal disease; E11.22 Type 2 diabetes mellitus with diabetic chronic kidney disease; N18.6 End stage renal disease; I50.32 Chronic diastolic (congestive) heart failure; E78.5 Hyperlipidemia, unspecified; G47.00 Insomnia, unspecified; K29.50 Unspecified chronic gastritis without bleeding; M47.896 Other spondylosis, lumbar region; Z99.2 Dependence on renal dialysis; Z88.2 Allergy status to sulfonamides
CPT/HCPCS: 36415; 71045; 72110; 74174; 76770; 80048; 80069; 80076; 81003; 81015; 82150; 82962; 83690; 83970; 84443; 85025; 86704; 86706; 86803; 87340; 96374; 96375; 99285; C9113; G0257; G0378; J0360; J1644; J2550; J7030; Q9967

== ENCOUNTER 2018-02-19 15:08 | Observation (INO) | payer BC, OTHER ==
--- OUTSIDE RECORDS SUMMARY | 2018-02-19 15:11 | XMS REPORT | Clinical Summary ---
:1965 Author Organization [facility] Address [address] [place] [address] Care Team Providers Name Role Phone Garo [...] dialysis catheter in place MD Frank after 02/18/2017 Immunizations Name Dates Previously Given Next Due [...] CDT procedure are in the results section. [place] AN ELECTIVE Routine 08/25/2017 8:09 END[address]AL AIRWAY [...] Routine 07/19/2017 7:48 AM Results for this DISTRICT [facility]AMINER procedure are in the results section. POC GLUCOSE Routine 07/18/2017 8:52 PM Results for this [facility]ICAL [facility]AMINER procedure are in the results section. NM GASTRIC EMPTYING Routine 07/18/2017 5:06 PM Results for this DISTRICT [facility]ICAL [facility]AMINER procedure are in the results section. POC GLUCOSE Routine 07/18/2017 4:15 PM Results for this DISTRICT MEDICAL EXAMINER procedure are in the results section. CELL COUNT AND Routine 07/18/2017 10:00 AM Results for this DIFFERENTIAL, BODY FLUID DISTRICT [facility] procedure are in the results section. FUNGUS SMEAR Routine 07/18/2017 10:00 AM Results for this [facility]ICAL [facility]AM[facility] procedure are in the results section. GRAM STAIN Routine 07/18/2017 10:00 AM Results for this DISTRICT MEDICAL EXAMINER procedure are in the results section. FUNGUS CULTURE Routine 07/18/2017 10:00 AM Results for this DISTRICT MEDICAL EXAMINER procedure are in the results section. ANAEROBIC CULTURE Routine 07/18/2017 10:00 AM Results for this DISTRICT MEDICAL EXAMINER procedure are in the results section. AEROBIC CULTURE Routine 07/18/2017 10:00 AM Results for this DISTRICT [facility]ICAL [facility]AMIN[facility] procedure are in the results section. CT ABDOMEN PELVIS WO Routine 07/18/2017 9:02 AM Results for this CONTRAST DISTRICT [facility]ICAL EXAMINER procedure are in the results section. LACTIC ACID LEVEL, Timed 07/18/2017 4:11 AM Results for this SEPSIS - NOW AND REPEAT DISTRICT MEDICAL EXAMINER procedure are in 2X EVERY 3 HOURS the results section. LACTIC ACID LEVEL, Timed 07/17/2017 8:30 PM Results for this SEPSIS - NOW AND REPEAT DISTRICT MEDICAL EXAMINER procedure are in 2X EVERY 3 HOURS the results section. ESTIMATED GFR STAT 07/17/2017 4:55 PM Results for this DISTRICT MEDICAL EXAMINER procedure are in the results section. LIPASE LEVEL STAT 07/17/2017 4:55 PM Results for this DISTRICT MEDICAL EXAMINER procedure are in the results section. COMPREHENSIVE METABOLIC STAT 07/17/2017 4:55 PM Results for this PANEL [facility]ICAL EXAMINER procedure are in the results section. LACTIC ACID LEVEL, STAT 07/17/2017 4:55 PM Results for this SEPSIS - NOW AND REPEAT DISTRICT MEDICAL EXAMINER procedure are in 2X EVERY 3 HOURS the results section. HC COMPLETE BLD COUNT STAT 07/17/2017 4:55 PM Results for this W/AUTO DIFF DISTRICT MEDICAL EXAMINER procedure are in the results section. BLOOD CULTURE, AEROBIC & Routine 07/17/2017 4:55 PM Results for this ANAEROBIC DISTRICT MEDICAL EXAMINER procedure are in the results section. BLOOD CULTURE, AEROBIC & Routine 07/17/2017 4:50 PM Results for this ANAEROBIC DISTRICT MEDICAL EXAMINER procedure are in the results section. after 02/18/2017 Results POC glucose (08/25/2017 8:40 AM)Only the most recent of4 resultswithin the time period is included. POC glucose 152 (H) 65 - 99 mg/dL [facility] DEPARTMENT OF PATHOLOGY AND Comment: GENOMIC MEDICINE RN Notified Meter ID: [id number] Publishing Specialist: Boogie Blackburn Performing Organization Address City/State/Zipcode Phone Number [facility] DEPARTMENT OF PATHOLOGY [address] [place] [address] AND GENOMIC MEDICINE POC panel 4 (08/25/2017 6:59 AM) POC sodium 138 135 - 148 meq/L [facility] DEPARTMENT OF PATHOLOGY AND GENOMIC MEDICINE POC potassium 3.7 3.5 - 5.0 meq/L [facility] DEPARTMENT OF PATHOLOGY AND GENOMIC MEDICINE POC hematocrit 36 (L) 41 - 51 % [facility] DEPARTMENT OF PATHOLOGY AND GENOMIC MEDICINE POC glucose 155 (H) 65 - 99 mg/dL [facility] DEPARTMENT OF PATHOLOGY AND GENOMIC MEDICINE POC hemoglobin 12.2 (L) 14.0 - 18.0 g/dL [facility] DEPARTMENT OF PATHOLOGY AND GENOMIC MEDICINE Specimen Blood Performing Organization Address [facility] Phone Number [facility] DEPARTMENT OF PATHOLOGY [address] [place] [address] AND [employer] [facility] Estimated GFR (08/25/2017 6:47 AM)Only the most recent of2 resultswithin the time period is included. GFR Non Af Amer 18 (A) mL/min/1.73 m2 [facility] DEPARTMENT OF PATHOLOGY AND [employer] MEDICINE GFR Af Amer 22 (A) mL/min/1.73 m2 [facility] DEPARTMENT OF Comment: PATHOLOGY AND [employer] Chronic kidney disease: <60 mL/min/1.73m2 MEDICINE Kidney [...] Americans. Specimen Plasma specimen Performing Organization Address City/[facility] Phone Number [facility] DEPARTMENT OF PATHOLOGY [address] [facility] [employer] [facility] Basic metabolic panel (08/25/2017 6:47 AM) Sodium 138 135 - 148 mEq/L [facility] DEPARTMENT OF PATHOLOGY AND GENOMIC MEDICINE Potassium 3.9 3.5 - 5.0 mEq/L [facility] DEPARTMENT OF PATHOLOGY AND GENOMIC MEDICINE Chloride 100 98 - 112 mEq/L [facility] DEPARTMENT OF PATHOLOGY AND GENOMIC MEDICINE CO2 26 24 - 31 mEq/L [facility] DEPARTMENT OF PATHOLOGY AND GENOMIC MEDICINE Anion gap 12 7 - 15 mEq/L [facility] DEPARTMENT OF Comment: PATHOLOGY AND GENOMIC Starting from September , anion gap calculation MEDICINE no longer incorporates potassium. Please note the change. BUN 29 (H) 6 - 20 mg/dL [facility] DEPARTMENT OF PATHOLOGY AND [employer] MEDICINE Creatinine 3.6 (H) 0.7 - 1.2 mg/dL [facility] DEPARTMENT OF PATHOLOGY AND GENOMIC MEDICINE Glucose 159 (H) 65 - 99 mg/dL [facility] DEPARTMENT OF PATHOLOGY AND GENOMIC MEDICINE Calcium 9.2 8.3 - 10.2 mg/dL [facility] DEPARTMENT OF PATHOLOGY AND GENOMIC MEDICINE Specimen Plasma specimen Performing Organization Address City/State/[facility] Phone Number [facility] DEPARTMENT OF PATHOLOGY [address] [facility] [place] [address] AND GENOMIC MEDICINE CBC with platelet and differential (08/23/2017 12:26 PM)Only the most recent of2 resultswithin the time period is included. WBC 6.9 4.5 - 11.0 k/uL [facility] DEPARTMENT OF PATHOLOGY AND GENOMIC MEDICINE RBC 3.16 (L) 4.40 - 6.00 m/uL [facility] DEPARTMENT OF PATHOLOGY AND GENOMIC MEDICINE HGB 8.6 (L) 14.0 - 18.0 g/dL [facility] DEPARTMENT OF PATHOLOGY AND GENOMIC MEDICINE HCT 27.4 (L) 41.0 - 51.0 % [facility] DEPARTMENT OF PATHOLOGY AND GENOMIC MEDICINE MCV 86.7 82.0 - 100.0 fL [facility] DEPARTMENT OF PATHOLOGY AND GENOMIC MEDICINE MCH 27.2 27.0 - 34.0 pg [facility] DEPARTMENT OF PATHOLOGY AND GENOMIC MEDICINE MCHC 31.4 31.0 - 37.0 g/dL [facility] DEPARTMENT OF PATHOLOGY AND GENOMIC MEDICINE RDW - SD 52.3 37.0 - 55.0 fL [facility] DEPARTMENT OF PATHOLOGY AND GENOMIC MEDICINE MPV 9.1 6.9 - 11.0 fL [facility] DEPARTMENT OF PATHOLOGY AND GENOMIC MEDICINE Platelet count 273 150 - 400 K/uL [facility] DEPARTMENT OF PATHOLOGY AND GENOMIC MEDICINE Nucleated RBC 0.00 /100 WBC [facility] DEPARTMENT OF PATHOLOGY AND GENOMIC MEDICINE Neutrophils 63.7 39.0 - 69.0 % [facility] DEPARTMENT OF PATHOLOGY AND GENOMIC MEDICINE Lymphocytes 18.6 (L) 25.0 - 45.0 % [facility] DEPARTMENT OF PATHOLOGY AND GENOMIC MEDICINE Monocytes 12.3 (H) 0.0 - 10.0 % [facility] DEPARTMENT OF PATHOLOGY AND GENOMIC MEDICINE Eosinophils 4.0 0.0 - 5.0 % [facility] DEPARTMENT OF PATHOLOGY AND GENOMIC MEDICINE Basophils 0.7 0.0 - 1.0 % [facility] DEPARTMENT OF PATHOLOGY AND GENOMIC MEDICINE Immature granulocytes 0.7 0.0 - 1.0 % [facility] DEPARTMENT OF PATHOLOGY AND GENOMIC MEDICINE Specimen Blood Performing Organization Address City/State/Zipcode Phone Number [facility] DEPARTMENT OF PATHOLOGY [address] [place] [address] AND GENOMIC MEDICINE ECG Pre/Post Op (08/23/2017 11:23 AM) Ventricular rate 54 [facility] Atrial rate 54 [facility] MN interval 176 [facility] QRSD interval 88 [facility] QT interval 492 [facility] QTC interval 466 [facility] P axis 1 5 [facility] QRS axis 1 10 [facility] T wave axis 140 [facility] EKG impression Sinus bradycardia-T wave abnormality, [facility] M[facility] consider lateral ischemia-Prolonged QT-Abnormal ECG-No previous ECGs available- Performing Organization Address [facility] Phone Number [facility] MUSE [address] [place] [address] [place] Gastric Emptying (07/18/2017 5:06 PM) Narrative Performed At Procedure:NM GASTRIC EMPTYING [facility] Clinical History:ABDOMINAL PAIN Technique 0.8 millicuries of [id number] colloid were mixed with an egg and cooked. The egg was fed to the patient and dynamic imaging of the abdomen in the anterior and posterior projections was performed for 90 minutes. Quantification of gastric emptying was performed using the geometric mean of the anterior and posterior projections. FINDINGS: Gastric emptying half time=53 minutes (normal is <100 minutes). IMPRESSION: Normal gastric emptying. [facility]-[id number] Procedure Note Interface, Radiology Results Incoming - 07/18/2017 5:20 PM DISTRICT MEDICAL EXAMINER Procedure: NM GASTRIC EMPTYING Clinical History: ABDOMINAL PAIN Technique 0.8 millicuries of [id number] colloid were mixed with an egg and cooked. The egg was fed to the patient and dynamic imaging of the abdomen in the anterior and posterior projections was performed for 90 minutes. Quantification of gastric emptying was performed using the geometric mean of the anterior and posterior projections. FINDINGS: Gastric emptying half time=53 minutes (normal is <100 minutes). IMPRESSION: Normal gastric emptying. [facility]-[id number] Performing Organization Address [facility] Phone Number [facility] [address] [place] [address] Fungus smear (07/18/2017 10:00 AM) Fungus smear No fungi observed. [facility] DEPARTMENT OF PATHOLOGY Comment: AND GENOMIC MEDICINE Specimen Information Specimen Source: Peritoneal fluid Specimen Site: Peritoneal Specimen Peritoneal fluid - Peritoneal Performing Organization Address City/[facility] Phone Number [facility] DEPARTMENT OF PATHOLOGY AND [address] [place] [phone] GENOMIC MEDICINE Aerobic culture (07/18/2017 10:00 AM) Aerobic culture isolate No growth after 3 days. [facility] DEPARTMENT OF Comment: PATHOLOGY AND GENOMIC Specimen Information MEDICINE Specimen Source: Peritoneal fluid Specimen Site: Peritoneal Specimen Peritoneal fluid - Peritoneal Performing Organization Address City/[facility] Phone Number [facility] DEPARTMENT OF PATHOLOGY AND [address] [place] [phone] [facility] MEDICINE Gram stain (07/18/2017 10:00 AM) Gram stain isolate Rare WBC's [facility] DEPARTMENT OF PATHOLOGY No organisms seen AND GENOMIC MEDICINE Comment: Specimen Information Specimen Source: Peritoneal fluid Specimen Site: Peritoneal Specimen Peritoneal fluid - Peritoneal Performing Organization Address [facility] Phone Number [facility] DEPARTMENT OF PATHOLOGY AND [address] [place], [place] [phone] GENOMIC [facility] Fungus culture (07/18/2017 10:00 AM) Fungus culture isolate No growth after 4 weeks of incubation. [facility] DEPARTMENT OF Comment: PATHOLOGY AND GENOMIC Specimen Information MEDICINE Specimen Source: Peritoneal fluid Specimen Site: Peritoneal Specimen Peritoneal fluid - Peritoneal Performing Organization Address [facility] Phone Number [facility] DEPARTMENT OF PATHOLOGY AND [address] [place] [phone] GENOMIC MEDICINE Anaerobic culture (07/18/2017 10:00 AM) Anaerobic culture No anaerobic organisms isolated. [facility] DEPARTMENT OF isolate Comment: PATHOLOGY AND GENOMIC Specimen Information MEDICINE Specimen Source: Peritoneal fluid Specimen Site: Peritoneal Specimen Peritoneal fluid - Peritoneal Performing Organization Address City/[facility]/Zipcode Phone Number [facility] DEPARTMENT OF PATHOLOGY AND [address] [place] [phone] GENOMIC MEDICINE Cell count and differential, body fluid (07/18/2017 10:00 AM) [facility] [place] fluid [facility] DEPARTMENT OF PATHOLOGY AND GENOMIC MEDICINE Color, fluid Colorless [facility] DEPARTMENT OF PATHOLOGY AND GENOMIC MEDICINE Appearance, fluid Clear [facility] DEPARTMENT OF PATHOLOGY AND GENOMIC MEDICINE RBC, fluid SEE COMMENTComment: 1+ (0 - /CMM [facility] DEPARTMENT OF 500 RBC/CMM) PATHOLOGY AND GENOMIC MEDICINE Nucleated cells, fluid 29 /CMM [facility] DEPARTMENT OF PATHOLOGY AND GENOMIC MEDICINE Fluid mononuclear cell SEE COMMENT [facility] DEPARTMENT OF Comment: PATHOLOGY AND GENOMIC Footnote--------- MEDICINE Unable to perform differential due to very low count. Specimen Fluid Performing Organization Address City/State/Zipcode Phone Number [facility] DEPARTMENT OF PATHOLOGY [address] [place] [address] Abdomen Pelvis Wo [...] renal calyceal stones are present without hydronephrosis. [id number] Procedure Note Interface, Radiology Results Incoming - 07/18/2017 9:14 AM DISTRICT MEDICAL EXAMINER EXAMINATION: CT ABDOMEN PELVIS WO CONTRAST CLINICAL [...] renal calyceal stones are present without hydronephrosis. [id number] Performing Organization Address [facility] Phone Number [address] [address] Lactic acid level, SEPSIS - Now and repeat 2x every 3 hours (07/18/2017 4:11 AM )Only the most recent of3 resultswithin the time period is included. Lactic acid 0.6 0.5 - 2.2 mmol/L [facility] DEPARTMENT OF PATHOLOGY AND GENOMIC MEDICINE Specimen Plasma specimen Performing Organization Address [facility] Phone Number [facility] DEPARTMENT OF PATHOLOGY [address] [place] [address] AND [facility] Blood culture, aerobic & anaerobic (07/17/2017 4:55 PM)Only the most recent of2 resultswithin the time period is included. Blood culture isolate No growth after 5 days of incubation. [facility] DEPARTMENT OF Comment: PATHOLOGY AND GENOMIC Specimen Information MEDICINE Specimen Source: Blood Specimen Site: Hand, right Specimen Blood - Hand, right Performing Organization Address [facility]/Zipcode Phone Number [facility] DEPARTMENT OF PATHOLOGY AND [address] [place] [phone] [facility] Lipase level (07/17/2017 4:55 PM) Lipase 48 13 - 60 U/L [facility] DEPARTMENT OF PATHOLOGY AND GENOMIC MEDICINE Specimen Plasma specimen Performing Organization Address [facility] Phone Number [facility] DEPARTMENT OF PATHOLOGY [id number] [place] [address] AND [facility] Comprehensive metabolic panel (07/17/2017 4:55 PM) Sodium 134 (L) 135 - 148 mEq/L [facility] DEPARTMENT OF PATHOLOGY AND GENOMIC MEDICINE Potassium 4.6 3.5 - 5.0 mEq/L [facility] DEPARTMENT OF PATHOLOGY AND GENOMIC MEDICINE Chloride 96 (L) 98 - 112 mEq/L [facility] DEPARTMENT OF PATHOLOGY AND GENOMIC MEDICINE CO2 25 24 - 31 mEq/L [facility] DEPARTMENT OF PATHOLOGY AND GENOMIC MEDICINE Anion gap 13 7 - 15 mEq/L [facility] DEPARTMENT OF Comment: PATHOLOGY AND GENOMIC Starting from September , anion gap calculation MEDICINE no longer incorporates potassium. Please note the change. BUN 22 (H) 6 - 20 mg/dL [facility] DEPARTMENT OF PATHOLOGY AND GENOMIC MEDICINE Creatinine 3.8 (H) 0.7 - 1.2 mg/dL [facility] DEPARTMENT OF PATHOLOGY AND GENOMIC MEDICINE Glucose 138 (H) 65 - 99 mg/dL [facility] DEPARTMENT OF PATHOLOGY AND GENOMIC MEDICINE Calcium 8.7 8.3 - 10.2 mg/dL [facility] DEPARTMENT OF PATHOLOGY AND GENOMIC MEDICINE Protein 6.8 6.3 - 8.3 g/dL [facility] DEPARTMENT OF PATHOLOGY AND GENOMIC MEDICINE Albumin 2.8 (L) 3.5 - 5.0 g/dL [facility] DEPARTMENT OF PATHOLOGY AND GENOMIC MEDICINE A/G ratio 0.7 0.7 - 3.8 [facility] DEPARTMENT OF PATHOLOGY AND GENOMIC MEDICINE Alkaline phosphatase 69 40 - 129 U/L [facility] DEPARTMENT OF PATHOLOGY AND GENOMIC MEDICINE AST 20 10 - 50 U/L [facility] DEPARTMENT OF PATHOLOGY AND GENOMIC MEDICINE ALT 6 5 - 50 U/L [facility] DEPARTMENT OF PATHOLOGY AND GENOMIC MEDICINE Total bilirubin <0.2 0.2 - 1.2 mg/dL [facility] DEPARTMENT OF PATHOLOGY AND GENOMIC MEDICINE Specimen Plasma specimen Performing Organization Address City/State/Zipcode Phone Number [facility] DEPARTMENT OF PATHOLOGY [address] [facility] [place] [address] AND [employer] MEDICINE after 02/18/2017 Insurance Payer Benefit Plan / Group Subscriber ID Type Phone Address SILVIA CARCAMO xxxxxxxxxxxx O MEDICARE MEDICARE PART A AND B xxxxxxxxxx Medicare [place], [place] Home: [address] [place], [place] [phone] [place], [place] [phone]
--- OUTSIDE RECORDS SUMMARY | 2018-02-19 15:11 | XMS REPORT | Clinical Summary ---
:1965 Author Organization [facility] Address [address] [place] [address] Phone Care Team Providers Name Role Phone [...] Bala Traore 06/15/2017 Medicine MD Nabila after 02/18/2017 Social History Tobacco Use Types Packs/Day Years Used Date Never Smoker Smokeless Tobacco: Never Used Sex Assigned at Date Recorded Not on file Last Filed Vital Signs Vital Sign Reading Time Taken Blood Pressure 124/61 06/15/2017 4:00 PM [employer] Pulse 66 06/15/2017 4:00 PM [employer] Temperature 36.3 C (97.3 F) 06/15/2017 4:00 PM [employer] Respiratory Rate 18 06/15/2017 4:00 PM [employer] Oxygen Saturation 96% 06/15/2017 4:00 PM [employer] Inhaled Oxygen Concentration - - Weight 97 kg (213 lb 12.8 oz) 06/08/2017 10:42 PM [employer] Height 190.5 cm (6' 3") 06/08/2017 10:42 PM [employer] Body Mass Index 26.72 06/08/2017 10:42 PM [employer] Plan of Treatment Not on file Implants Implanted Type Area Chief [employer] Device Expiration Model / Identifier Date Serial / Lot Cath Peritoneal Dyls 57cm [id number] - Sn/A Catheter N/A: COVIDIEN: SHAZIA 02/17/2021 [id number] / Implanted: Qty: 1 on 06/14/2017 by Abdiel Ivory MD Dialysis Abdomen L N/A / [id number] Procedures Procedure Name Priority Date/Time Associated Diagnosis Comments LAPAROSCOPY,INSERT 06/14/2017 11:00 AM Renal Failure PERITONEAL CATHETER [employer] after 02/18/2017 Results RHYTHM STRIP - SCAN (07/04/2017 3:42 [...] Range POC-Glucose Meter 243 (H)Comment: TESTED AT [facility] [address] 70 - 110 mg/dL [facility] [address] Specimen Performing Laboratory Blood [facility] [address] [address] CBC with platelet count + automated diff [...] - 0.20 K/L Specimen Performing Laboratory Blood [facility] [address] [place] [address] CBC with platelet count + automated diff (06/15/2017 12:59 PM)Only the most recent of3 resultswithin the time period is included. Specimen Performing Laboratory Blood Narrative The following orders were created for panel order CBC with platelet count + automated diff. Procedure Abnormality Status --------- ------ CBC with platelet count ...[[id number]]AbnormalFinal result Please view results for these tests on the individual orders. Magnesium (06/15/2017 12:59 PM)Only the most recent of2 resultswithin the time period is included. Component Value Ref Range Magnesium 1.9 1.5 - 3.0 mg/dL Specimen Performing Laboratory Blood [facility] [address] [place] [address] Basic Metabolic Panel (06/15/2017 12:59 PM)Only the [...] FOR DIALYSIS PATIENTS. Specimen Performing Laboratory Blood [facility] [address] [place] [address] POC-TCO2 (06/14/2017 10:22 AM) Component Value Ref Range POC-TCO2 30 (H)Comment: TESTED AT [address] 22 - 29 meq/[place] [id number] Specimen Performing Laboratory Blood [address] [address] POC-Chloride (06/14/2017 10:22 AM) Component Value Ref Range POC-Chloride 97 (L)Comment: TESTED AT [address] 98 - 107 meq/ L [place] [address] Specimen Performing Laboratory Blood [address] [address] POC-BUN (06/14/2017 10:22 AM) Component Value Ref Range POC-BUN 20Comment: TESTED AT [address] 7 - 21 mg /dL [facility] Specimen Performing Laboratory Blood [address] [address] POC-Creatinine (06/14/2017 10:22 AM) Component Value Ref Range POC-Creatinine 3.6 (H)Comment: TESTED AT [address] 0.6 - 1.3 mg/dL [place] [address] POC-EGFR 18 mL/min/1.73M2 Specimen Performing Laboratory Blood [address] [address] POCT-HEMATOCRIT (06/14/2017 10:22 AM) Component Value Ref Range POC-Hematocrit 24 (L)Comment: TESTED AT [address] 40 - 50 % [place] [address] Specimen Performing Laboratory Blood [address] [address] POCT-HEMOGLOBIN (06/14/2017 10:22 AM) Component Value Ref Range POC-Hemoglobin 8.2 (L)Comment: TESTED AT [address] 13.0 - 16.8 g/dL [place] [address] Specimen Performing Laboratory Blood [address] [address] POCT-GLUCOSE (06/14/2017 10:22 AM) Component Value Ref Range POC-Glucose 123 (H)Comment: TESTED AT [address] 70 - 110 mg/ dL [place] [address] Specimen Performing Laboratory Blood [address] [address] POC-Sodium (06/14/2017 10:22 AM) Component Value Ref Range POC-Sodium 138Comment: [address] [facility] 135 - 148 meq/[place] [address] Specimen Performing Laboratory Blood [facility] [address] [place] [address] POC-Potassium (06/14/2017 10:22 AM) Component Value Ref Range POC-Potassium 3.6Comment: TESTED AT [facility] [address] 3.6 - 5.5 meq/L [facility] [place] [address] Specimen Performing Laboratory Blood [facility] [address] [place] [address] TRANSFUSION SERVICE REPORT - SCAN (06/13/2017 5:30 PM)ECHOCARDIOGRAM REPORT - SCAN (06/13/2017 2:20 PM)2D Echo W/Doppler(CW/PW/Color) (06/13/2017 7:42 AM) Component Value Ref Range Ejection Fraction Specimen Performing Laboratory [facility] ECHO HEARTLAB MKCKESSON CPACS Narrative Transthoracic Echocardiography Report (TTE) Demographics Patient Name YUSUF DARBY Date of Study 06/13/2017 [id number] Male Visit Number [id number] Accession Number [id number] Room Number B432 Date of Birth1965Referring Physician Age52 year(s)Compliance Vice President Clementina Seymour [facility] Interpreting Murphy Hartley MD Physician Procedure [...] External Ris In - 06/13/2017 1:51 PM [employer] Transthoracic Echocardiography Report (TTE) Demographics Patient Name YUSUF DARBY Date of Study 06/13/2017 Gender Male Visit Number [id number] Race Unknown Accession Number [id number] Room Number B432 Date of 1965 Referring Physician Age 52 year(s) Compliance Vice President Clementina Seymour [facility] Interpreting Murphy Hartley MD Physician Procedure [...] INR 1.0 <=5.9 Specimen Performing Laboratory Blood [facility] [address] [place] [address] Narrative RECOMMENDED COUMADIN/WARFARIN INR THERAPY RANGES STANDARD DOSE: 2.0 - 3.0 Includes: PROPHYLAXIS for venous thrombosis, systemic embolization; TREATMENT for venous thrombosis and/or pulmonary embolus. HIGH RISK: Target INR is 2.5-3.5 for patients with mechanical heart valves. Type and screen ([facility]) (06/12/2017 3:29 PM) Component Value Ref Range Ab Scrn NEGATIVE ABO Grouping A Rh Factor POS Specimen Performing Laboratory Blood [facility] [address] [place] [address] TSH (06/12/2017 3:29 PM) Component Value Ref Range TSH 2.09 0.35 - 5.50 uIU/mL Specimen Performing Laboratory Blood [facility] [address] [place] [address] Comprehensive metabolic panel (06/12/2017 3:29 PM) Component [...] FOR DIALYSIS PATIENTS. Specimen Performing Laboratory Blood [facility] [address] [place] [address] XR chest 1 view portable / bedside [...] MD Report Verified Date/Time:06/10/2017 08:49:42 Reading Location: [facility] Radiology Reading Room Procedure Note Interface, External Ris In - 06/10/2017 8:51 AM [employer] FINAL REPORT TECHNIQUE: Frontal chest radiograph dated [...] Report Verified Date/Time: 06/10/2017 08:49:42 Reading Location: [facility] Radiology Reading Room Hepatitis B core antibody, total (06/10/2017 8:13 AM) Component Value Ref Range Hep B Core Total Ab Nonreactive Nonreactive Specimen Performing Laboratory Blood - Arm, Left [address] [address] Hepatitis B surface antibody (06/09/2017 7:06 PM) Component Value Ref Range Hep B S Ab <8.0 <8.0 mIU/mL Specimen Performing Laboratory Blood - Central Venous Line [address] [address] Hepatitis B surface antigen (06/09/2017 7:06 PM) Component Value Ref Range hepatitis B Surface Ag Nonreactive Nonreactive Specimen Performing Laboratory Blood - Central Venous Line [facility] [address] [place] [address] IR Tunneled Catheter Insertion (06/09/2017 11:45 AM) Specimen Performing Laboratory GE RIS Narrative FINAL REPORT Tunneled central venous catheter insertion. History: End-stage renal disease Modality: Sonography and fluoroscopy. Sedation: Moderate sedation was administered. 2 mg of Versed [id number] mcg of fentanyl IV was used for moderate sedation monitored under my direction. Total intra-service time of sedation [id number]. The patient's vital signs were monitored throughout the procedure and recorded in the patient's medical record by the nurse. Track And Field Coach:Onesimo Lopez MD. Guide Alpine:None. Approach: Right internal jugular vein Estimated blood [...] needle into the right atrium. A 4 American micropuncture sheath was placed.A subcutaneous tunnel was created in the right anterior chest wall by blunt dissection.A 19 cm tipped cuff 15.5 American Duraflow 2 catheter was brought through the [...] MD Report Verified Date/Time:06/09/2017 12:13:36 Reading Location: [facility] Radiology Reading Room Procedure Note Interface, External Ris In - 06/09/2017 12:21 PM [employer]ER FINAL REPORT Tunneled central venous catheter insertion. [...] the patient's medical record by the nurse. Track And Field Coach: Onesimo Lopez MD. Guide Alpine: None. Approach: Right internal jugular vein Estimated [...] needle into the right atrium. A 4 American micropuncture sheath was placed. A subcutaneous tunnel was created in the right anterior chest wall by blunt dissection. A 19 cm tipped cuff 15.5 American Duraflow 2 catheter was brought through the [...] Report Verified Date/Time: 06/09/2017 12:13:36 Reading Location: [facility] Radiology Reading Room /aPTT (06/09/2017 5:15 AM) Component Value Ref Range Protime 10.7 9.3 - 12.0 seconds INR 1.0 <=5.9 PTT 28.5 23.0 - 35.0 seconds Specimen Performing Laboratory Blood - Arm, [facility] [address] [place] [address] Narrative RECOMMENDED COUMADIN/WARFARIN INR THERAPY RANGES STANDARD DOSE: 2.0 - 3.0 Includes: PROPHYLAXIS for venous thrombosis, systemic embolization; TREATMENT for venous thrombosis and/or pulmonary embolus. HIGH RISK: Target INR is 2.5-3.5 for patients with mechanical heart valves. Phosphorus (06/09/2017 5:15 AM) Component Value Ref Range Phosphorus 4.1 2.5 - 4.5 mg/dL Specimen Performing Laboratory Blood - Arm, [facility] [address] [place] [address] Hepatic function panel (06/09/2017 5:15 AM) Component Value Ref Range Protein, Total 6.3 6.0 - 8.5 gm/dL Albumin 3.2 (L) 3.5 - 5.0 g/dL Total Bilirubin 0.4 0.1 - 1.2 mg/dL Bilirubin, Direct 0.2 0.0 - 0.4 mg/dL Alkaline Phosphatase 67 30 - 115 U/L AST 13 5 - 40 U/L ALT 10 5 - 50 U/L Specimen Performing Laboratory Blood - Arm, [facility] [address] [place] [address] after 02/18/2017
--- OUTSIDE RECORDS SUMMARY | 2018-02-19 15:12 | XMS REPORT ---
:1965 [facility] Address [address] [place] [address] [address]. [address] [place] [address] Care Team Providers Name Role Phone DWIGHT [...] (BEAKER) (test 243 mg/dL 70-110 TESTED AT [facility] [address] [place] [address] klip=[phone]) [address] [facility] [address] BASIC METABOLIC [id number] 13:51:00 Test Item Value Reference Range Comments SODIUM (BEAKER) (test 139 meq/L 135-148 tlwe=965) POTASSIUM (BEAKER) (test 3.4 meq/L 3.6-5.5 fgej=549) CHLORIDE (BEAKER) (test 101 meq/L 98-106 qgdo=601) CO2 (BEAKER) (test 29 meq/L 20-29 lchl=195) BLOOD UREA NITROGEN 11 mg/dL 10-26 (BEAKER) (test szqh=448) CREATININE (BEAKER) (test 2.10 mg/dL 0.50-1.20 eucl=102) GLUCOSE RANDOM (BEAKER) 157 mg/dL 70-110 (test fuxj=075) CALCIUM (BEAKER) (test 8.6 mg/dL 8.5-10.5 wkzd=543) EGFR (BEAKER) (test 33 mL/min/1.73 sq m ESTIMATED GFR IS NOT aifv=8418) ACCURATE CREATININE CLEARANCE IN PREDICTING GLOMERULAR FILTRATION RATE. ESTIMATED GFR IS NOT APPLICABLE FOR DIALYSIS PATIENTS. [id number] 13:44:00 Test Item Value Reference Range Comments MAGNESIUM (BEAKER) (test rves=144) 1.9 mg/dL 1.5-3.0 CBC W/PLT COUNT & AUTO [id number] 13:34:00 Test Item Value Reference Range Comments WHITE BLOOD CELL COUNT (BEAKER) (test wjjw=793) 6.8 K/ L 4.0-10.0 RED BLOOD CELL COUNT (BEAKER) (test awvo=633) 2.92 M/ L 4.20-5.80 HEMOGLOBIN (BEAKER) (test gwzy=455) 8.4 GM/DL 13.0-16.8 HEMATOCRIT (BEAKER) (test zjjr=955) 25.5 % 40.0-50.0 MEAN CORPUSCULAR VOLUME (BEAKER) (test ovkj=670) 87.4 fL 82.0-98.0 MEAN CORPUSCULAR HEMOGLOBIN (BEAKER) (test 28.7 pg 27.0-33.0 atnb=366) MEAN CORPUSCULAR HEMOGLOBIN CONC (BEAKER) (test 32.8 GM/DL 32.0-36.0 swsm=427) RED CELL DISTRIBUTION WIDTH (BEAKER) (test 14.7 % 10.3-14.2 xoqb=798) PLATELET COUNT (BEAKER) (test veho=851) 299 K/CU MM 150-430 MEAN PLATELET VOLUME (BEAKER) (test ptjp=188) 6.9 fL 6.5-10.5 NUCLEATED RED BLOOD CELLS (BEAKER) (test 0 /100 WBC 0-0 hkum=271) NEUTROPHILS RELATIVE PERCENT (BEAKER) (test 65 % orfe=308) LYMPHOCYTES RELATIVE PERCENT (BEAKER) (test 18 % qxju=772) MONOCYTES RELATIVE PERCENT (BEAKER) (test 14 % psjs=883) EOSINOPHILS RELATIVE PERCENT (BEAKER) (test 3 % lrkm=793) BASOPHILS RELATIVE PERCENT (BEAKER) (test 1 % pkbu=029) NEUTROPHILS ABSOLUTE COUNT (BEAKER) (test 4.40 K/ L 1.80-8.00 cmxj=971) LYMPHOCYTES ABSOLUTE COUNT (BEAKER) (test 1.20 K/ L 1.48-4.50 hnzr=208) MONOCYTES ABSOLUTE COUNT (BEAKER) (test 1.00 K/ L 0.00-1.30 idsd=850) EOSINOPHILS ABSOLUTE COUNT (BEAKER) (test 0.20 K/ L 0.00-0.50 ttxz=959) BASOPHILS ABSOLUTE COUNT (BEAKER) (test 0.00 K/ L 0.00-0.20 cdfm=446) POCT-GLUCOSE [id number] 11:28:00 Test Item Value Reference Range Comments POC-GLUCOSE METER (BEAKER) 147 mg/dL 70-110 TESTED AT [address] (test vvwr=5763) [facility] [address] POCT-GLUCOSE [id number] 06:04:00 Test Item Value Reference Range Comments POC-GLUCOSE METER (BEAKER) 137 mg/dL 70-110 TESTED AT [address] (test bwjj=5074) [place] [address] POCT-GLUCOSE [id number] 21:01:00 Test Item Value Reference Range Comments POC-GLUCOSE METER (BEAKER) 138 mg/dL 70-110 TESTED AT [address] (test shjp=6700) [place] [address] POCT-GLUCOSE [id number] 16:06:00 Test Item Value Reference Range Comments POC-GLUCOSE METER (BEAKER) 167 mg/dL 70-110 TESTED AT [address] (test rjjv=8480) [place] [address] POCT-GLUCOSE [id number] 12:49:00 Test Item Value Reference Range Comments POC-GLUCOSE METER (BEAKER) 144 mg/dL 70-110 TESTED AT [address] (test dpqg=8291) [place] [address] [id number] 10:27:00 Test Item Value Reference Range Comments POC-CREATININE (BEAKER) 3.6 mg/dL 0.6-1.3 TESTED AT [address] (test ornx=9671) [place] [address] POC-EGFR (BEAKER) (test 18 mL/min/1.73M2 vzea=8999) [id number] 10:27:00 Test Item Value Reference Range Comments POC-SODIUM (BEAKER) (test 138 meq/L 135-148 TESTED AT [address] vkuw=7543) [place] [address] [id number] 10:27:00 Test Item Value Reference Range Comments POC-POTASSIUM (BEAKER) 3.6 meq/L 3.6-5.5 TESTED AT [address] (test klhr=6044) [place] [address] [id number] 10:27:00 Test Item Value Reference Range Comments POC-BUN (BEAKER) (test 20 mg/dL 7-21 TESTED AT [address] gqkw=3873) [place] [address] [id number] 10:27:00 Test Item Value Reference Range Comments POC-CHLORIDE (BEAKER) (test 97 meq/L 98-107 TESTED AT [address] swqq=1574) [place] [address] [id number] 10:27:00 Test Item Value Reference Range Comments POC-GLUCOSE (BEAKER) (test 123 mg/dL 70-110 TESTED AT [address] yxoh=7594) [place] [address] [id number] 10:27:00 Test Item Value Reference Range Comments POC-HEMATOCRIT (BEAKER) (test 24 % 40-50 TESTED AT [address] kyhe=5189) [place] [address] [id number] 10:27:00 Test Item Value Reference Range Comments POC-HEMOGLOBIN (BEAKER) 8.2 g/dL 13.0-16.8 TESTED AT [address] (test vezm=9910) [place] [address] [id number] 10:27:00 Test Item Value Reference Range Comments POC-TCO2 (BEAKER) (test 30 meq/L 22-29 TESTED AT [address] bdbt=3562) [place] [address] POCT-GLUCOSE [id number] 06:08:00 Test Item Value Reference Range Comments POC-GLUCOSE METER (BEAKER) 163 mg/dL 70-110 TESTED AT [address] (test doai=4815) [place] [address] POCT-GLUCOSE [id number] 21:07:00 Test Item Value Reference Range Comments POC-GLUCOSE METER (BEAKER) 132 mg/dL 70-110 TESTED AT [facility] [address] [place] [address] (test yfgj=7582) [facility] [address] POCT-GLUCOSE [id number] 12:58:00 Test Item Value Reference Range Comments POC-GLUCOSE METER (BEAKER) 178 mg/dL 70-110 TESTED AT [facility] [address] [place] [address] (test awia=3367) [facility] [address] POCT-GLUCOSE [id number] 05:29:00 Test Item Value Reference Range Comments POC-GLUCOSE METER (BEAKER) 171 mg/dL 70-110 TESTED AT [address] (test pjcl=5337) [facility] [address] POCT-GLUCOSE [id number] 22:03:00 Test Item Value Reference Range Comments POC-GLUCOSE METER (BEAKER) 249 mg/dL 70-110 TESTED AT [address] (test nlku=3041) [facility] [address] POCT-GLUCOSE [id number] 16:45:00 Test Item Value Reference Range Comments POC-GLUCOSE METER (BEAKER) 213 mg/dL 70-110 TESTED AT [address] (test ifar=3701) [facility] [address] [id number] 16:43:00 Test Item Value Reference Range Comments THYROID STIMULATING HORMONE (BEAKER) (test 2.09 uIU/mL 0.35-5.50 oipz=344) COMPREHENSIVE METABOLIC [id number] 16:24:00 Test Item Value Reference Range Comments TOTAL PROTEIN (BEAKER) 7.2 gm/dL 6.0-8.5 (test aaqo=108) ALBUMIN (BEAKER) (test 3.5 g/dL 3.5-5.0 tpox=2521) ALKALINE PHOSPHATASE 67 U/L 30-115 (BEAKER) (test inyg=861) BILIRUBIN TOTAL (BEAKER) 0.3 mg/dL 0.1-1.2 (test jwdw=328) SODIUM (BEAKER) (test 136 meq/L 135-148 xwrr=428) POTASSIUM (BEAKER) (test 4.1 meq/L 3.6-5.5 hbnm=219) CHLORIDE (BEAKER) (test 98 meq/L 98-106 ifce=338) CO2 (BEAKER) (test 26 meq/L 20-29 viui=466) BLOOD UREA NITROGEN 32 mg/dL 10-26 (BEAKER) (test gjqt=975) CREATININE (BEAKER) (test 4.40 mg/dL 0.50-1.20 cdnd=617) GLUCOSE RANDOM (BEAKER) 212 mg/dL 70-110 (test eyod=554) CALCIUM (BEAKER) (test 9.0 mg/dL 8.5-10.5 pcxx=569) AST (SGOT) (BEAKER) (test 14 U/L 5-40 ycki=460) ALT (SGPT) (BEAKER) (test 4 U/L 5-50 teqn=935) EGFR (BEAKER) (test 14 mL/min/1.73 sq m ESTIMATED GFR IS NOT kgsa=5571) ACCURATE CREATININE CLEARANCE IN PREDICTING GLOMERULAR FILTRATION RATE. ESTIMATED GFR IS NOT APPLICABLE FOR DIALYSIS PATIENTS. CBC W/PLT COUNT & AUTO [id number] 16:02:00 Test Item Value Reference Range Comments WHITE BLOOD CELL COUNT (BEAKER) (test aufj=733) 6.9 K/ L 4.0-10.0 RED BLOOD CELL COUNT (BEAKER) (test fuhc=475) 2.95 M/ L 4.20-5.80 HEMOGLOBIN (BEAKER) (test pldy=247) 8.6 GM/DL 13.0-16.8 HEMATOCRIT (BEAKER) (test augq=822) 25.9 % 40.0-50.0 MEAN CORPUSCULAR VOLUME (BEAKER) (test rwbc=565) 87.9 fL 82.0-98.0 MEAN CORPUSCULAR HEMOGLOBIN (BEAKER) (test 29.0 pg 27.0-33.0 bsun=007) MEAN CORPUSCULAR HEMOGLOBIN CONC (BEAKER) (test 33.0 GM/DL 32.0-36.0 hhar=185) RED CELL DISTRIBUTION WIDTH (BEAKER) (test 15.0 % 10.3-14.2 qcfi=572) PLATELET COUNT (BEAKER) (test fzex=254) 330 K/CU MM 150-430 MEAN PLATELET VOLUME (BEAKER) (test zkhf=891) 7.1 fL 6.5-10.5 NUCLEATED RED BLOOD CELLS (BEAKER) (test 0 /100 WBC 0-0 yjsh=672) NEUTROPHILS RELATIVE PERCENT (BEAKER) (test 66 % dcnq=604) LYMPHOCYTES RELATIVE PERCENT (BEAKER) (test 16 % mnul=536) MONOCYTES RELATIVE PERCENT (BEAKER) (test 12 % acqf=253) EOSINOPHILS RELATIVE PERCENT (BEAKER) (test 5 % uvim=373) BASOPHILS RELATIVE PERCENT (BEAKER) (test 1 % iyht=886) NEUTROPHILS ABSOLUTE COUNT (BEAKER) (test 4.60 K/ L 1.80-8.00 hkei=435) LYMPHOCYTES ABSOLUTE COUNT (BEAKER) (test 1.10 K/ L 1.48-4.50 away=621) MONOCYTES ABSOLUTE COUNT (BEAKER) (test 0.80 K/ L 0.00-1.30 ilqi=776) EOSINOPHILS ABSOLUTE COUNT (BEAKER) (test 0.30 K/ L 0.00-0.50 wbxg=843) BASOPHILS ABSOLUTE COUNT (BEAKER) (test 0.10 K/ L 0.00-0.20 yrlk=843) PROTHROMBIN [id number] 16:01:00 Test Item Value Reference Range Comments PROTIME (BEAKER) (test vhlw=122) 10.3 seconds 9.3-12.0 INR (BEAKER) (test aeet=615) 1.0 <=5.9 RECOMMENDED COUMADIN/WARFARIN INR THERAPY RANGESSTANDARD DOSE: 2.0 - 3.0 Includes: PROPHYLAXIS forvenous thrombosis, systemic embolization; TREATMENT for venous thrombosis and/or pulmonary embolus.HIGH RISK: Target INR is 2.5-3.5 for patients with mechanical heart valves.POCT-GLUCOSE [id number] 12:01:00 Test Item Value Reference Range Comments POC-GLUCOSE METER (BEAKER) 211 mg/dL 70-110 TESTED AT [address] (test obiv=7644) [facility] [address] POCT-GLUCOSE [id number] 06:08:00 Test Item Value Reference Range Comments POC-GLUCOSE METER (BEAKER) 191 mg/dL 70-110 TESTED AT [address] (test jqzc=9087) [facility] [address] POCT-GLUCOSE [id number] 21:28:00 Test Item Value Reference Range Comments POC-GLUCOSE METER (BEAKER) 233 mg/dL 70-110 TESTED AT [address] (test ovrw=8252) [facility] [address] POCT-GLUCOSE [id number] 16:19:00 Test Item Value Reference Range Comments POC-GLUCOSE METER (BEAKER) 290 mg/dL 70-110 TESTED AT [address] (test vbpv=5810) [facility] [address] POCT-GLUCOSE [id number] 13:33:00 Test Item Value Reference Range Comments POC-GLUCOSE METER (BEAKER) 186 mg/dL 70-110 TESTED AT [address] (test dube=8749) [facility] [address] POCT-GLUCOSE [id number] 06:27:00 Test Item Value Reference Range Comments POC-GLUCOSE METER (BEAKER) 204 mg/dL 70-110 TESTED AT [address] (test jvtt=0971) [facility] [address] POCT-GLUCOSE [id number] 21:40:00 Test Item Value Reference Range Comments POC-GLUCOSE METER (BEAKER) 267 mg/dL 70-110 TESTED AT [address] (test zrmd=6858) [facility] [address] POCT-GLUCOSE [id number] 17:32:00 Test Item Value Reference Range Comments POC-GLUCOSE METER (BEAKER) 221 mg/dL 70-110 TESTED AT [address] (test syxz=6938) [facility] [address] HEPATITIS B SURFACE [id number] 14:21:00 Test Item Value Reference Range Comments HEPATITIS B SURFACE ANTIBODY (BEAKER) (test < mIU/mL <8.0 strb=612) HEPATITIS B CORE ANTIBODY, [id number] 14:15:00 Test Item Value Reference Range Comments HEPATITIS B CORE TOTAL ANTIBODY (BEAKER) (test Nonreactive Nonreactive kvyl=462) POCT-GLUCOSE [id number] 12:18:00 Test Item Value Reference Range Comments POC-GLUCOSE METER (BEAKER) 193 mg/dL 70-110 TESTED AT [address] (test ykoz=5101) [facility] [address] RAD, CHEST, 1 VIEW, NON [id number] 08:49:00Reason for exam:->for outpatient HD placementShould this [...] MDReport Verified Date/Time: 06/10/2017 08:49:42 Reading Location: [facility] Radiology Reading Room Electronically signed by: SACHI HAMMER on 2016 08:49 AMPOCT-GLUCOSE [id number] 06:53:00 Test Item Value Reference Range Comments POC-GLUCOSE METER (BEAKER) 177 mg/dL 70-110 TESTED AT [address] (test bret=7576) [facility] [address] POCT-GLUCOSE [id number] 22:10:00 Test Item Value Reference Range Comments POC-GLUCOSE METER (BEAKER) 109 mg/dL 70-110 TESTED AT [address] (test pdfh=5071) [facility] [address] HEPATITIS B SURFACE [id number] 20:18:00 Test Item Value Reference Range Comments HEPATITIS B SURFACE ANTIGEN (2) (BEAKER) (test Nonreactive Nonreactive tzmj=9588) POCT-GLUCOSE [id number] 17:08:00 Test Item Value Reference Range Comments POC-GLUCOSE METER (BEAKER) 223 mg/dL 70-110 TESTED AT [address] (test lztl=3047) [facility] [address] POCT-GLUCOSE [id number] 12:47:00 Test Item Value Reference Range Comments POC-GLUCOSE METER (BEAKER) 200 mg/dL 70-110 TESTED AT [address] (test wwiv=8858) [facility] [address] ANG, TUNNELED CATHETER [id number] 12:13:00Reason for exam:->renal failureFINAL REPORT Tunneled central [...] the patient's medical record by the nurse. Sticker Operator: Onesimo Lopez MD. Mechanical Engineering Teacher: None. Approach: Right internal jugular vein Estimated [...] needle into the right atrium. A 4 Persian micropuncture sheath was placed. A subcutaneous tunnel was created in the right anterior chest wall by blunt dissection. A 19 cm tipped cuff 15.5 Persian Duraflow 2 catheter was brought through the [...] Lopezort Verified Date/Time: 06/09/2017 12:13:36 Reading Location: [facility] Radiology Reading Room 12 :13 PMPOCT-GLUCOSE [id number] 06:03:00 Test Item Value Reference Range Comments POC-GLUCOSE METER (BEAKER) 208 mg/dL 70-110 TESTED AT [facility] [address] [facility] (test ajak=9730) [address] [facility] [address] BASIC METABOLIC [id number] 06:00:00 Test Item Value Reference Range Comments SODIUM (BEAKER) (test 139 meq/L 135-148 exib=529) POTASSIUM (BEAKER) (test 3.5 meq/L 3.6-5.5 iufm=999) CHLORIDE (BEAKER) (test 103 meq/L 98-106 jicr=339) CO2 (BEAKER) (test 26 meq/L 20-29 brqr=674) BLOOD UREA NITROGEN 62 mg/dL 10-26 (BEAKER) (test kmiw=325) CREATININE (BEAKER) (test 5.10 mg/dL 0.50-1.20 iuem=190) GLUCOSE RANDOM (BEAKER) 191 mg/dL 70-110 (test tzck=540) CALCIUM (BEAKER) (test 9.0 mg/dL 8.5-10.5 gpwv=387) EGFR (BEAKER) (test 12 mL/min/1.73 sq m ESTIMATED GFR IS NOT xwtg=4456) ACCURATE CREATININE CLEARANCE IN PREDICTING GLOMERULAR FILTRATION RATE. ESTIMATED GFR IS NOT APPLICABLE FOR DIALYSIS PATIENTS. HEPATIC FUNCTION [id number] 05:58:00 Test Item Value Reference Range Comments TOTAL PROTEIN (BEAKER) (test fpeh=731) 6.3 gm/dL 6.0-8.5 ALBUMIN (BEAKER) (test oyfb=3068) 3.2 g/dL 3.5-5.0 BILIRUBIN TOTAL (BEAKER) (test rafg=701) 0.4 mg/dL 0.1-1.2 BILIRUBIN DIRECT (BEAKER) (test mdtp=976) 0.2 mg/dL 0.0-0.4 ALKALINE PHOSPHATASE (BEAKER) (test izos=250) 67 U/L 30-115 AST (SGOT) (BEAKER) (test ugku=851) 13 U/L 5-40 ALT (SGPT) (BEAKER) (test mlzs=090) 10 U/L 5-50 CBC W/PLT COUNT & AUTO [id number] 05:56:00 Test Item Value Reference Range Comments WHITE BLOOD CELL COUNT (BEAKER) (test trfe=310) 6.3 K/ L 4.0-10.0 RED BLOOD CELL COUNT (BEAKER) (test sekx=645) 2.71 M/ L 4.20-5.80 HEMOGLOBIN (BEAKER) (test uoof=088) 7.8 GM/DL 13.0-16.8 HEMATOCRIT (BEAKER) (test rfrj=703) 23.6 % 40.0-50.0 MEAN CORPUSCULAR VOLUME (BEAKER) (test jhde=738) 86.8 fL 82.0-98.0 MEAN CORPUSCULAR HEMOGLOBIN (BEAKER) (test 28.6 pg 27.0-33.0 qokx=366) MEAN CORPUSCULAR HEMOGLOBIN CONC (BEAKER) (test 33.0 GM/DL 32.0-36.0 jixb=819) RED CELL DISTRIBUTION WIDTH (BEAKER) (test 14.8 % 10.3-14.2 esjt=474) PLATELET COUNT (BEAKER) (test hrof=488) 334 K/CU MM 150-430 MEAN PLATELET VOLUME (BEAKER) (test hteg=219) 6.9 fL 6.5-10.5 NUCLEATED RED BLOOD CELLS (BEAKER) (test 0 /100 WBC 0-0 qior=337) NEUTROPHILS RELATIVE PERCENT (BEAKER) (test 57 % mrmq=241) LYMPHOCYTES RELATIVE PERCENT (BEAKER) (test 19 % yqqx=206) MONOCYTES RELATIVE PERCENT (BEAKER) (test 15 % vpns=889) EOSINOPHILS RELATIVE PERCENT (BEAKER) (test 7 % udfs=570) BASOPHILS RELATIVE PERCENT (BEAKER) (test 1 % wbxk=718) NEUTROPHILS ABSOLUTE COUNT (BEAKER) (test 3.60 K/ L 1.80-8.00 rgev=142) LYMPHOCYTES ABSOLUTE COUNT (BEAKER) (test 1.20 K/ L 1.48-4.50 kfxl=504) MONOCYTES ABSOLUTE COUNT (BEAKER) (test 1.00 K/ L 0.00-1.30 jkfl=230) EOSINOPHILS ABSOLUTE COUNT (BEAKER) (test 0.50 K/ L 0.00-0.50 hmdl=766) BASOPHILS ABSOLUTE COUNT (BEAKER) (test 0.10 K/ L 0.00-0.20 nnat=851) [id number] 05:55:00 Test Item Value Reference Range Comments PHOSPHORUS (BEAKER) (test yuno=985) 4.1 mg/dL 2.5-4.5 [id number] 05:51:00 Test Item Value Reference Range Comments PROTIME (BEAKER) (test wpwn=710) 10.7 seconds 9.3-12.0 INR (BEAKER) (test vpul=621) 1.0 <=5.9 PARTIAL THROMBOPLASTIN TIME (BEAKER) (test 28.5 seconds 23.0-35.0 dcor=289) RECOMMENDED COUMADIN/WARFARIN INR THERAPY RANGESSTANDARD DOSE: 2.0 - 3.0 Includes: PROPHYLAXIS forvenous thrombosis, systemic embolization; TREATMENT for venous thrombosis and/or pulmonary embolus.HIGH RISK: Target INR is 2.5-3.5 for patients with mechanical heart valves.[id number] 05:50:00 Test Item Value Reference Range Comments MAGNESIUM (BEAKER) (test pslx=907) 1.7 mg/dL 1.5-3.0 POCT-GLUCOSE [id number] 23:14:00 Test Item Value Reference Range Comments POC-GLUCOSE METER (BEAKER) 230 mg/dL 70-110 TESTED AT [address] (test lowa=5296) [address] [facility] [address]
[2018-02-19] MEDS ORDERED: MORPHINE 4 MG/ML SYR ONE ×2 (16:19→17:41)
[2018-02-19] MEDS ORDERED: HYDRALAZINE HCL 20 MG/ML VIAL ONE (16:19)
[2018-02-19] MEDS ORDERED: ONDANSETRON 4 MG/2 ML VIAL ONE (16:20)
[2018-02-19 16:33] LABS: Absolute Lymphocytes (CBC) 0.8 K/uL (0.7-4.9); Absolute Monocytes 0.8 K/uL (0.1-1.3); Absolute Neutrophil 4.9 K/uL (1.8-8.0); Basophils % 1.4 % (0-1.3); Eosinophils % 1.8 % (0-4.4); Hematocrit 34.3 % (39.6-49.0); Lymphocytes % 11.6 % (15.3-44.8); MCH 31.2 pg (27.0-35.0); MCV 91.3 fL (80-100); Monocytes % 11.6 % (3.3-12.3); RBC Red Blood Cell Count 3.75 M/uL (4.33-5.43)
[2018-02-19 16:48] LABS: Albumin 3.7 g/dL (3.4-5.0); Bilirubin Direct 0.2 mg/dL (0-0.2); Bilirubin Total 0.6 mg/dL (0.2-1.0); Potassium 3.8 mmol/L (3.5-5.1); Protein, Total 7.6 g/dL (6.4-8.2)
[2018-02-19] MEDS ORDERED: PROMETHAZINE HCL 50 MG/ML AMP IM ONE (17:11)
[2018-02-19] MEDS ORDERED: NA CHLORIDE 0.9% 100 ML IV ONE (17:13)
--- NOTE | 2018-02-19 17:46 | EDPHYS ---
Physician Documentation [facility] Name: Yusuf Bah Age: 52 yrs Sex: Male : 1965 Arrival Date: 02/19/2018 Time: 15:11 Bed 25 Private MD: Lori Chavarria C ED Physician Jose Luis Meek HPI: 02/19 17:30 This 52 yrs old Male presents to ER via Ambulatory with complaints of kb Vomiting. 17:30 The patient presents to the emergency department with nausea, vomiting. Onset: The kb symptoms/episode began/occurred 3 day(s) ago. Possible causes: unknown. The symptoms are aggravated by food , The symptoms are alleviated by nothing. Associated signs and symptoms: Pertinent positives: nausea, vomiting, Pertinent negatives: abdominal pain, fever. Severity of symptoms: At their worst the symptoms were moderate in the emergency department the symptoms are unchanged. The patient has experienced similar episodes in the past. The patient has not recently seen a physician. Pt reports he has had episodes of vomiting for the last year. Has had multiple studies done, but unable to find cause of vomiting. GI doctor is Dr Rosenberg and PCP is Dr Chavarria. Hasn't been able to keep medications down.. Historical: - Allergies: 16:02 Sulfa (Sulfonamide Antibiotics); ss - Home Meds: 18:12 aspirin 81 mg Oral TbEC 1 tab nightly [Active]; atorvastatin 80 mg Oral tab 1 tab once la1 daily [Active]; Humalog Sub-Q per insulin pump [Active]; hydralazine 25 mg Oral tab 1 tab 2 times per day [Active]; Lasix 20 mg Oral tab 1 tab once daily [Active]; metoprolol tartrate 50 mg Oral tab once daily [Active]; Norvasc 10 mg Oral tab 1 tab once daily [Active]; Plavix 75 mg Oral tab 1 tab once daily [Active]; promethazine 25 mg Oral tab 1 tab q 6 hrs prn [Active]; Protonix 40 mg Oral TbEC 1 tab 2 times per day [Active]; Ranexa 500 mg Oral TM12 1 tab daily [Active]; sertraline 50 mg Oral tab 1 tab once daily [Active]; - PMHx: 16:02 Angina; CAD; Diabetes - IDDM; GERD; Glaucoma; High Cholesterol; Hypertension; Renal ss Disease; Small vessle disease of the heart; - Immunization history:: Adult Immunizations up to date. - Social history:: Smoking status: Patient/guardian denies using tobacco. - Ebola Screening: : Patient denies exposure to infectious person Patient denies travel to an Ebola-affected area in the 21 days before illness onset. ROS: 17:28 Constitutional: Negative for fever, chills, and weight loss, Cardiovascular: Negative kb for chest pain, palpitations, and edema, Respiratory: Negative for shortness of breath, cough, wheezing, and pleuritic chest pain, : Negative for injury, bleeding, discharge, and swelling, MS/Extremity: Negative for injury and deformity, Skin: Negative for injury, rash, and discoloration, Neuro: Negative for headache, weakness, numbness, tingling, and seizure. 17:28 Abdomen/GI: Positive for nausea and vomiting, Negative for abdominal pain, diarrhea, constipation, abdominal cramps, abdominal distension, anorexia. 17:29 Back: Positive for pain at rest, pain with movement. kb Exam: 17:29 Head/Face: Normocephalic, atraumatic. ENT: Nares patent. No nasal discharge, no kb septal abnormalities noted. Tympanic membranes are normal and external auditory canals are clear. Oropharynx with no redness, swelling, or masses, exudates, or evidence of obstruction, uvula midline. Mucous membranes moist. Neck: Trachea midline, no thyromegaly or masses palpated, and no cervical lymphadenopathy. Supple, full range of motion without nuchal rigidity, or vertebral point tenderness. No Meningismus. Chest/axilla: Normal chest wall appearance and motion. Nontender with no deformity. No lesions are appreciated. Cardiovascular: Regular rate and rhythm with a normal S1 and S2. No gallops, murmurs, or rubs. Normal PMI, no JVD. No pulse deficits. Respiratory: Lungs have equal breath sounds bilaterally, clear to auscultation and percussion. No rales, rhonchi or wheezes noted. No increased work of breathing, no retractions or nasal flaring. Abdomen/GI: Soft, non-tender, with normal bowel sounds. No distension or tympany. No guarding or rebound. No evidence of tenderness throughout. Back: No spinal tenderness. No costovertebral tenderness. Full range of motion. Skin: Warm, dry with normal turgor. Normal color with no rashes, no lesions, and no evidence of cellulitis. MS/ Extremity: Pulses equal, no cyanosis. Neurovascular intact. Full, normal range of motion. Neuro: Awake and alert, GCS 15, oriented to person, place, time, and situation. Cranial nerves II-XII grossly intact. Motor strength 5/5 in all extremities. Sensory grossly intact. Cerebellar exam normal. Normal gait. 17:29 Constitutional: The patient appears alert, awake, uncomfortable. Vital Signs: 16:02 BP 220 / 107; Pulse 93; Resp 18; Temp 98.6(TE); Pulse Ox 96% on R/A; Weight 90.72 kg; ss Height 6 ft. 3 in. (190.50 cm); 16:20 BP 207 / 101 LA Sitting (auto/lg); Pulse 91; Resp 17 S; Pulse Ox 96% on R/A; jp3 16:42 BP 197 / 91; la1 17:12 BP 190 / 86; Pulse 95; Resp 16; Pulse Ox 100% on R/A; la1 17:49 BP 166 / 88; Pulse 100; Resp 16; Pulse Ox 92% on R/A; la1 18:20 BP 168 / 84; Pulse 93; Resp 16; Pulse Ox 95% on R/A; la1 16:02 Body Mass Index 25.00 (90.72 kg, 190.50 cm) ss MDM: 15:55 Patient medically screened. kb 17:29 Data reviewed: vital signs, nurses notes. Data interpreted: Pulse oximetry: on room air kb is 100 %. Interpretation: normal. 17:45 Counseling: I had a detailed discussion with the patient and/or guardian regarding: the kb historical points, exam findings, and any diagnostic results supporting the discharge/admit diagnosis, lab results, the need for further work-up and treatment in the hospital. Physician consultation: A Aura CHATMAN was contacted at 17:45, regarding admission, to the medical/surgical unit. patient's condition, and will see patient in inpatient room. 02/19 15:58 Order name: Amylase, Serum; Complete Time: 17:17 kb 02/19 15:58 Order name: Basic Metabolic Panel; Complete Time: 17:17 kb 02/19 15:58 Order name: CBC with Diff; Complete Time: 16:51 kb 02/19 15:58 Order name: Hepatic Function; Complete Time: 17:17 kb 02/19 15:58 Order name: Lipase; Complete Time: 17:17 kb 02/19 15:58 Order name: IV Saline Lock; Complete Time: 16:11 kb 02/19 15:58 Order name: Labs collected and sent; Complete Time: 16:11 kb 02/19 15:58 Order name: EKG; Complete Time: 15:59 kb 02/19 15:58 Order name: EKG - Nurse/Tech; Complete Time: 16:34 kb Administered Medications: 16:34 Drug: morphine 4 mg Route: IVP; Site: right forearm; la1 17:11 Follow up: Response: No adverse reaction; Pain is decreased la1 16:34 Drug: Zofran 4 mg Route: IVP; Site: right forearm; la1 17:11 Follow up: Response: No adverse reaction la1 16:34 Drug: hydrALAZINE 10 mg Route: IV; Rate: calculated rate; Site: right forearm; la1 17:11 Follow up: IV Status: Completed infusion la1 17:11 Drug: Phenergan 12.5 mg Route: IVP; Site: right forearm; la1 17:11 Follow up: Response: No adverse reaction la1 17:38 Drug: morphine 4 mg Route: IVP; Site: right forearm; la1 17:47 Follow up: Response: No adverse reaction; Pain is decreased la1 18:01 Follow up: Response: No adverse reaction; Pain is decreased la1 18:00 Not Given (Other Intervention Used): hydrALAZINE 10 mg IV at calculated rate once la1 Disposition: 02/20 06:58 Co-signature as Attending Physician, Jose Luis Meek MD. rn Disposition: 02/19/18 17:46 Hospitalization ordered by Lori Chavarria for Observation. Preliminary diagnosis is Nausea and vomiting - intractable. - Bed requested for Telemetry/MedSurg (observation). - Status is Observation. la1 - Condition is Stable. - Problem is an ongoing problem. - Symptoms are unchanged. UTI on Admission? No Signatures: Dispatcher [employer] EDMindi Ceballos, IVIS MEI-Thu Read Roman, MD MD rn Smirch, Shelby, RN RN ss Attema, Lee, RN RN la1 Corrections: (The following items were deleted from the chart) 02/19 17:29 17:28 Constitutional: Negative for fever, chills, and weight loss, Cardiovascular: kb Negative for chest pain, palpitations, and edema, Respiratory: Negative for shortness of breath, cough, wheezing, and pleuritic chest pain, Back: Negative for injury and pain, : Negative for injury, bleeding, discharge, and swelling, MS/Extremity: Negative for injury and deformity, Skin: Negative for injury, rash, and discoloration, Neuro: Negative for headache, weakness, numbness, tingling, and seizure, kb 17:46 17:45 Physician consultation: Garo Chavarria MD was contacted at 17:45, regarding kb admission, to the medical/surgical unit. patient's condition, and will see patient in inpatient room, kb 18:07 17:46 Hospitalization Ordered by A Aura CHATMAN for Observation. Preliminary diagnosis is bd Nausea and vomiting - intractable. Bed requested for Telemetry/MedSurg (observation). Status is Observation. Condition is Stable. Problem is an ongoing problem. Symptoms are unchanged. UTI on Admission? No. kb 18:22 18:07 02/19/2018 17:46 Hospitalization Ordered by A Aura CHATMAN for Observation. la1 Preliminary diagnosis is Nausea and vomiting - intractable. Bed requested for Telemetry/MedSurg (observation). Status is Observation. Condition is Stable. Problem is an ongoing problem. Symptoms are unchanged. UTI on Admission? No. bd
--- NOTE | 2018-02-19 17:46 | ER ---
Nurse's Notes [facility] Name: Yusuf Bah Age: 52 yrs Sex: Male : 1965 Arrival Date: 02/19/2018 Time: 15:11 Bed 25 Private MD: Lori Chavarria C Diagnosis: Nausea and vomiting-intractable Presentation: 02/19 15:59 Presenting complaint: Patient states: intermittent vomiting x 1 year. Pt states, "this ss happens all the time and they still haven't figured out what is going on yet." Pt reports this vomiting episode began 3 days ago and has been unable to keep down his medications. Transition of care: patient was not received from another setting of care. Onset of symptoms was February 16, 2018. Risk Assessment: Do you want to hurt yourself or someone else? Patient reports no desire to harm self or others. Initial Sepsis Screen: Does the patient meet any 2 criteria? No. Patient's initial sepsis screen is negative. Does the patient have a suspected source of infection? No. Patient's initial sepsis screen is negative. Care prior to arrival: None. 15:59 Method Of Arrival: Ambulatory ss 15:59 Acuity: ALVERTO 2 ss Historical: - Allergies: 16:02 Sulfa (Sulfonamide Antibiotics); ss - Home Meds: 18:12 aspirin 81 mg Oral TbEC 1 tab nightly [Active]; atorvastatin 80 mg Oral tab 1 tab once la1 daily [Active]; Humalog Sub-Q per insulin pump [Active]; hydralazine 25 mg Oral tab 1 tab 2 times per day [Active]; Lasix 20 mg Oral tab 1 tab once daily [Active]; metoprolol tartrate 50 mg Oral tab once daily [Active]; Norvasc 10 mg Oral tab 1 tab once daily [Active]; Plavix 75 mg Oral tab 1 tab once daily [Active]; promethazine 25 mg Oral tab 1 tab q 6 hrs prn [Active]; Protonix 40 mg Oral TbEC 1 tab 2 times per day [Active]; Ranexa 500 mg Oral TM12 1 tab daily [Active]; sertraline 50 mg Oral tab 1 tab once daily [Active]; - PMHx: 16:02 Angina; CAD; Diabetes - IDDM; GERD; Glaucoma; High Cholesterol; Hypertension; Renal ss Disease; Small vessle disease of the heart; - Immunization history:: Adult Immunizations up to date. - Social history:: Smoking status: Patient/guardian denies using tobacco. - Ebola Screening: : Patient denies exposure to infectious person Patient denies travel to an Ebola-affected area in the 21 days before illness onset. Screenin:11 Abuse screen: Denies threats or abuse. Nutritional screening: No deficits noted. la1 Tuberculosis screening: No symptoms or risk factors identified. Fall Risk None identified. Assessment: 16:33 General: Appears uncomfortable, ill, Behavior is calm, cooperative. Pain: Complains of la1 pain in lumbar area, left low back and right low back. Neuro: Level of Consciousness is awake, alert, obeys commands, Oriented to person, place, time, situation. Cardiovascular: Denies chest pain, shortness of breath, Capillary refill < 3 seconds Patient's skin is warm and dry. Respiratory: Airway is patent Respiratory effort is even, unlabored, Respiratory pattern is regular, symmetrical, Breath sounds are clear bilaterally. GI: Abdomen is round non-distended, Bowel sounds present X 4 quads. Abd is soft and non tender X 4 quads. GI: Reports nausea, vomiting. : No signs and/or symptoms were reported regarding the genitourinary system. 17:30 Reassessment: Patient appears in no apparent distress at this time. No changes from la1 previously documented assessment. Patient and/or family updated on plan of care and expected duration. Pain level reassessed. Patient is alert, oriented x 3, equal unlabored respirations, skin warm/dry/pink. Vital Signs: 16:02 BP 220 / 107; Pulse 93; Resp 18; Temp 98.6(TE); Pulse Ox 96% on R/A; Weight 90.72 kg; ss Height 6 ft. 3 in. (190.50 cm); 16:20 BP 207 / 101 LA Sitting (auto/lg); Pulse 91; Resp 17 S; Pulse Ox 96% on R/A; jp3 16:42 BP 197 / 91; la1 17:12 BP 190 / 86; Pulse 95; Resp 16; Pulse Ox 100% on R/A; la1 17:49 BP 166 / 88; Pulse 100; Resp 16; Pulse Ox 92% on R/A; la1 18:20 BP 168 / 84; Pulse 93; Resp 16; Pulse Ox 95% on R/A; la1 16:02 Body Mass Index 25.00 (90.72 kg, 190.50 cm) ss ED Course: 15:11 Patient arrived in ED. as 15:11 Lori Chavarria MD is Private Physician. as 15:53 Mindi Santizo FNP-C is [facility]. kb 15:53 Jose Luis Meek MD is Attending Physician. kb 16:00 Triage completed. ss 16:02 Arm band placed on right wrist. ss 16:11 Placed in gown. Bed in low position. Call light in reach. la1 16:11 Side rails up X 1. jp3 16:11 No provider procedures requiring assistance completed. Inserted saline lock: 20 gauge la1 in right forearm, using aseptic technique. Blood collected. 16:27 Warm blanket given. Pillow given. bus monitor on. Pulse ox on. NIBP on. jp3 16:27 EKG done, by ED staff, reviewed by Mindi LANGSTON. jp3 16:33 Jose Schultz RN is Primary Nurse. la1 17:45 Lori Chavarria MD is Hospitalizing Provider. kb 17:46 Hospitalizing Provider role handed off by Lori Chavarria MD kb 17:46 Garo Chavarria MD is Hospitalizing Provider. kb 17:46 Hospitalizing Provider role handed off by Garo Chavarria MD kb 17:46 Lori Chavarria MD is Hospitalizing Provider. kb 18:22 Patient admitted, IV remains in place. la1 Administered Medications: 16:34 Drug: morphine 4 mg Route: IVP; Site: right forearm; la1 17:11 Follow up: Response: No adverse reaction; Pain is decreased la1 16:34 Drug: Zofran 4 mg Route: IVP; Site: right forearm; la1 17:11 Follow up: Response: No adverse reaction la1 16:34 Drug: hydrALAZINE 10 mg Route: IV; Rate: calculated rate; Site: right forearm; la1 17:11 Follow up: IV Status: Completed infusion la1 17:11 Drug: Phenergan 12.5 mg Route: IVP; Site: right forearm; la1 17:11 Follow up: Response: No adverse reaction la1 17:38 Drug: morphine 4 mg Route: IVP; Site: right forearm; la1 17:47 Follow up: Response: No adverse reaction; Pain is decreased la1 18:01 Follow up: Response: No adverse reaction; Pain is decreased la1 18:00 Not Given (Other Intervention Used): hydrALAZINE 10 mg IV at calculated rate once la1 Outcome: 17:46 Decision to Hospitalize by Provider. kb 18:22 Admitted to Med/surg accompanied by tech, via wheelchair, room 214. la1 18:22 Condition: stable 18:22 Instructed on the need for admit. 18:22 Patient left the ED. la1 Signatures: Mindi Santizo, RUG INSPECTOR HELPER-C SIGIFREDO-Eliza Howell Shelby, RN RN ss Jose Schultz RN RN la1 Raz Nunez jp3
[2018-02-19] MEDS ORDERED: ACETAMINOPHEN 500 MG TAB PO PRN (18:41)
[2018-02-19] MEDS ORDERED: PROMETHAZINE 25 MG/ML VIAL IV PRN (18:41)
[2018-02-19] MEDS ORDERED: METOPROLOL TARTRATE 5 MG/5 ML INJ IV STA (18:50)
[2018-02-19] MEDS ORDERED: AMLODIPINE 5 MG TAB PO ONE (19:00)
[2018-02-19] MEDS: METOPROLOL TAR 50 MG TAB PO SCH (20:58)
[2018-02-19] MEDS: ONDANSETRON 4 MG/2 ML VIAL IV PRN (21:03)
[2018-02-19] MEDS: MORPHINE 4 MG/ML SYR IV PRN (21:03)
[2018-02-20 02:07] VITALS: BMI 25.0
[2018-02-20] MEDS: MORPHINE 4 MG/ML SYR IV PRN ×2 (03:10→08:21)
[2018-02-20] MEDS: ONDANSETRON 4 MG/2 ML VIAL IV PRN ×2 (03:10→08:21)
[2018-02-20 05:47] LABS: Absolute Lymphocytes (CBC) 1.6 K/uL (0.7-4.9); Absolute Monocytes 0.9 K/uL (0.1-1.3); Absolute Neutrophil 3.4 K/uL (1.8-8.0); Basophils % 1.3 % (0-1.3); Eosinophils % 6.2 % (0-4.4); Hematocrit 30.2 % (39.6-49.0); Lymphocytes % 24.9 % (15.3-44.8); MCH 31.3 pg (27.0-35.0); MCV 91.8 fL (80-100); MPV 7.4 fL (7.6-11.3); Monocytes % 14.3 % (3.3-12.3); RBC Red Blood Cell Count 3.28 M/uL (4.33-5.43)
[2018-02-20 05:59] LABS: Potassium 3.6 mmol/L (3.5-5.1)
[2018-02-20] MEDS ORDERED: ONDANSETRON 4 MG (ODT) TAB PO PRN (06:31)
[2018-02-20] MEDS ORDERED: NITROGLYCERIN 0.4 MG/TAB SL PRN (06:31)
[2018-02-20] MEDS ORDERED: ZOLPIDEM TARTRATE 5 MG TABLET PO PRN (06:31)
--- NOTE | 2018-02-20 07:02 | EKG ---
Test Date: 2018-02-19 Test Time: 16:16:48 Floral Decorator: MIRNA MEASUREMENT RESULTS: Intervals: Rate: 88 RI: 148 QRSD: 84 QT: 372 QTc: 450 [place]: P: 19 RI: 148 QRS: -32 T: 131 INTERPRETIVE STATEMENTS: Normal sinus rhythm Possible Left atrial enlargement Left axis deviation ST & T wave abnormality, consider lateral ischemia Abnormal ECG Compared to ECG 06/06/2017 22:21:37 Left-axis deviation now present Myocardial infarct finding no longer present ST (T wave) deviation still present Possible ischemia still present Electronically Signed On 02-20-18 07:01:10 CDT by Aryan Love
[2018-02-20] MEDS ORDERED: cloNIDine HCl 0.1 MG TAB PO SCH (09:00)
[2018-02-20] MEDS ORDERED: DOCUSATE NA/SENNA CONC 1 TAB PO SCH (09:00)
[2018-02-20] MEDS ORDERED: CLOPIDOGREL 75 MG TABLET PO SCH (09:00)
[2018-02-20] MEDS ORDERED: SERTRALINE HCL 50 MG TAB PO SCH (09:00)
[2018-02-20] MEDS ORDERED: FAMOTIDINE 20 MG TAB PO SCH (09:00)
[2018-02-20] MEDS ORDERED: ASPIRIN 325 MG TAB PO SCH (09:00)
[2018-02-20] MEDS ORDERED: AMLODIPINE 10 MG TAB PO SCH (09:00)
[2018-02-20] MEDS ORDERED: HYDRALAZINE HCL 25 MG TABLET PO SCH (09:00)
[2018-02-20] MEDS ORDERED: METOCLOPRAMIDE 5 MG TAB PO SCH (09:00)
[2018-02-20] MEDS: METOPROLOL TAR 50 MG TAB PO SCH (09:00)
[2018-02-20] MEDS ORDERED: ATORVASTATIN 80 MG TAB PO SCH (09:00)
[2018-02-20] MEDS ORDERED: FUROSEMIDE 40 MG TABLET PO SCH (09:00)
[2018-02-20 11:02] VITALS: O2SAT 94
[2018-02-20 15:32] VITALS: BP 164/80; TEMP 97.6
--- NOTE | 2018-02-21 05:22 | SS ---
Date of Discharge: 02/20/2018 Chief Complaint: Nausea, vomiting. History Of Present Illness: This is a 52-year-old male patient with multiple comorbidities including hypertension, diabetes mellitus, end-stage renal disease, and diabetic gastroparesis, who has chroni c problem with nausea, vomiting, and from [id number], he needs to be admitted to the hospital when he is not able to keep anything down and the same thing happened this time that for 2-3 days, he was not able to keep any food, liquids, or medications down, so he came into the emergency room yesterday . After he was evaluated in the ER, he was admitted to the hospital. He is on hemodialysis Tuesday, Tuesday, Tuesday. After his admission, he had 2 episodes of vomiting last night. This morning, he was feeling much better. Denies any abdominal pain. No fever. No hematemesis. No blood in stool. Allergies: TO SULFA. Medications: List reviewed. Social History: Negative for smoking, alcohol use. Family History: Significant for throat cancer, tuberculosis, diabetes, hypertension. Past Surgical History: Significant for rotator cuff surgery, appendectomy, eye surgery. Past Medical History: Significant for hypertension, type 2 diabetes mellitus with chronic kidney dis ease, ASCVD, anemia due to chronic kidney disease, hyperlipidemia, gastritis, end-stage renal disease , diabetic gastroparesis, and chronic back pain. Review of Systems: GI: As mentioned above. All other systems reviewed and negative. Physical Examination: Vital Signs: When he first came into the emergency room, temperature 98.6, pulse 93, respiratory rat e 18, blood pressure 220/107. Height 6 feet 3 inches, weight 200 pounds. Last blood pressure this m orning 166/78. General: Awake, alert, oriented, not in distress. HEENT: Head atraumatic, normocephalic. Conjunctivae nonerythematous. Sclerae white. Mouth, no thr ush or edema noted. Ears/Nose, no mass, lesion, discharge noted. Neck: Supple. No JVD, lymph nodes, bruit, thyromegaly noted. Lungs: Bilateral good equal air entry. Clear to auscultation. No rhonchi. No rales. Heart: Normal heart sounds, no murmur or gallop. Abdomen: Soft, bowel sounds normal. No guarding, rigidity, tenderness, mass, hepatosplenomegaly, dis tention, or bruit noted. Extremities: No leg edema. No calf tenderness. Skin: No rash, ulcer, cellulitis. Lymphatics: No lymph node enlargement in neck, supraclavicular, infraclavicular region. Neuro: No focal neurological deficit. Chest: Unremarkable. External Genitalia: Deferred. Rectal: Deferred. Laboratory Data: Yesterday, white count 6.7, hemoglobin 11.7, platelets 259. This morning, white co unt 6.4, hemoglobin 10.3, platelets 218. Sodium 140, potassium 3.8, chloride 104, bicarb 26, BUN 38, creatinine 7.30, glucose 156. Liver function tests unremarkable. Lipase 211. This morning, BUN 42 , creatinine 7.8, glucose 96. Sodium 142, potassium 3.6. Hospital Course: After the patient was evaluated and admitted to the hospital, he was given nausea m edication. Overall, his condition improved, and this morning, after I saw him, nephrology consultati on was requested for dialysis, and order was written to discharge him to go home after dialysis if he tolerates food. The patient was advised to continue all his previous home medication this admission . The patient tells me that he has an appointment to have EGD done with Dr. Rosenberg this week on and he was encouraged to keep that appointment and for him to follow up at my office in 2 weeks. Final Diagnoses: 1.Intractable nausea, vomiting. 2.Diabetic gastroparesis. 3.Hypertension. 4.Type 2 diabetes mellitus with chronic kidney disease. 5.Hyperlipidemia. 6.Coronary artery disease. 7.Chronic gastritis. 8.Insomnia. 9.End-stage renal disease, on hemodialysis. ERNESTO/MODL Voice ID: [id number] Report ID: [id number]
--- NOTE | 2018-02-21 11:15 | CON ---
Date of Consultation: 02/20/2018 Chief Complaint: End-stage renal disease, on dialysis. History Of Present Illness: The patient has multiple medical problems including history of diabetes mellitus, diabetic kidney disease, and he developed end-stage renal disease, has been dialyzed 3 time s per week. He came to the hospital because of nausea and vomiting of 3 days' duration, abdominal pa in, epigastric pain. He is scheduled to have a gastrointestinal workup. Today, he is feeling better . Nephrology consultation was requested for dialysis. Review of Systems: Constitutional: Denies fever, chills. Eyes: Denies vision changes. Ears, Nose, Mouth and Throat: Denies sore throat, earache. Respiratory: Denies PND, orthopnea. Cardiovascular: Denies chest pain, palpitation. GI: Denies melena, hematemesis. Has history of nausea, vomiting over the last 3 days. Denies const ipation. : Denies dysuria, hematuria. Musculoskeletal: Denies muscle aches or joint swelling. All other systems reviewed and all are nega tive. Past Medical History: Diabetes mellitus, hypertension, GERD, diabetic gastroparesis, glaucoma, hyper cholesterolemia, angina, renal osteodystrophy, anemia, and CKD. Social History: Denies tobacco, alcohol, or illicit drugs. Family History: Hypertension. Physical Examination: Vital Signs: Blood pressure is 168/84, heart rate is 90, respiratory rate 16, SpO2 95%. General: The patient is not in acute distress. Eyes: Anicteric sclerae. EOMI. Ears, Nose, Mouth, and Throat: Oral mucosa moist. No pallor. Neck: Supple. No JVD. No bruits. Lungs: Clear to auscultation bilaterally. Heart: S1, S2. No pericardial friction rub. Abdomen: Soft, benign, nontender. No rebound. No guarding. Extremities: No edema. No clubbing. No cyanosis. Laboratory Data: Hemoglobin 10.3, WBC 6.4, platelet count is 218,000. Blood work; sodium 142, potas sium 3.6, chloride 106, CO2 27, BUN 42, creatinine 7.8, calcium 8.9, albumin 3.7, total protein is 7. 6. Impression And Plan: 1.End-stage renal disease. The patient will have dialysis with ultrafiltration. Monitor electrolyt es, adjust dialysis parameters. 2.Hypertension. Advance blood pressure medication as needed. Ultrafiltration will be done with jan lysis to control fluid overload. 3.Anemia of chronic kidney disease. Monitor hemoglobin level. The patient has chronic anemia due t o chronic kidney disease. Hemoglobin level remains satisfactory. 4.Renal osteodystrophy. Continue renal diet and binders as tolerated. 5.Diabetes mellitus. Continue insulin. ESTELA/NESSA Voice ID: [id number] Report ID: [id number]
== END 2018-02-20 18:45 | disposition home or self-care (01) ==
LOC: ER 15:08 → ERHOLD 17:47 → 2ND 18:19
PROVIDERS: ADMIT Internal Medicine; ATTEND Internal Medicine
PROC: 5A1D70Z Performance of Urinary Filtration, Intermittent, Less than 6 Hours Per Day (ICD-10-PCS; principal; 2018-02-20)
DX: R11.2 Nausea with vomiting, unspecified (principal); E11.22 Type 2 diabetes mellitus with diabetic chronic kidney disease; I12.0 Hypertensive chronic kidney disease with stage 5 chronic kidney disease or end stage renal disease; N18.6 End stage renal disease; Z99.2 Dependence on renal dialysis; K21.9 Gastro-esophageal reflux disease without esophagitis; E11.43 Type 2 diabetes mellitus with diabetic autonomic (poly)neuropathy; K31.84 Gastroparesis; H40.9 Unspecified glaucoma; E78.00 Pure hypercholesterolemia, unspecified; N25.0 Renal osteodystrophy; D63.1 Anemia in chronic kidney disease; I25.10 Atherosclerotic heart disease of native coronary artery without angina pectoris; K29.50 Unspecified chronic gastritis without bleeding; G47.00 Insomnia, unspecified; M54.9 Dorsalgia, unspecified; G89.29 Other chronic pain; Z88.2 Allergy status to sulfonamides; Z79.82 Long term (current) use of aspirin; Z79.4 Long term (current) use of insulin
CPT/HCPCS: 36415; 80048; 80076; 82150; 83690; 85025; 90935; 93005; 96365; 96375; 99285; G0257; G0378; J0360; J2405; J2550

== ENCOUNTER 2018-03-02 19:15 | Observation (INO) | payer BC, OTHER ==
--- OUTSIDE RECORDS SUMMARY | 2018-03-02 19:25 | XMS REPORT | Clinical Summary ---
:1965 Author Organization [facility] Address [address] [place] [address] Care Team Providers Name Role Phone Garo [...] dialysis catheter in place MD Frank after 03/01/2017 Immunizations Name Dates Previously Given Next Due [...] CDT procedure are in the results section. OK AN ELECTIVE Routine 08/25/2017 8:09 END[address]HEAL AIRWAY [...] CDT procedure are in the results section. ZZESTIMATED GFR STAT 08/25/2017 6:47 AM Results for [...] Routine 07/19/2017 7:48 AM Results for this PRODUCTION STAGE MANAGER procedure are in the results section. POC GLUCOSE Routine 07/18/2017 8:52 PM Results for this PRODUCTION STAGE MANAGER procedure are in the results section. NM GASTRIC EMPTYING Routine 07/18/2017 5:06 PM Results for this PRODUCTION STAGE MANAGER procedure are in the results section. POC GLUCOSE Routine 07/18/2017 4:15 PM Results for this PRODUCTION STAGE MANAGER procedure are in the results section. CELL COUNT AND Routine 07/18/2017 10:00 AM Results for this DIFFERENTIAL, BODY FLUID PRODUCTION STAGE MANAGER procedure are in the results section. FUNGUS SMEAR Routine 07/18/2017 10:00 AM Results for this PRODUCTION STAGE MANAGER procedure are in the results section. GRAM STAIN Routine 07/18/2017 10:00 AM Results for this PRODUCTION STAGE MANAGER procedure are in the results section. FUNGUS CULTURE Routine 07/18/2017 10:00 AM Results for this PRODUCTION STAGE MANAGER procedure are in the results section. ANAEROBIC CULTURE Routine 07/18/2017 10:00 AM Results for this PRODUCTION STAGE MANAGER procedure are in the results section. AEROBIC CULTURE Routine 07/18/2017 10:00 AM Results for this PRODUCTION STAGE MANAGER procedure are in the results section. CT ABDOMEN PELVIS WO Routine 07/18/2017 9:02 AM Results for this CONTRAST PRODUCTION STAGE MANAGER procedure are in the results section. LACTIC ACID LEVEL, Timed 07/18/2017 4:11 AM Results for this SEPSIS - NOW AND REPEAT PRODUCTION STAGE MANAGER procedure are in 2X EVERY 3 HOURS the results section. LACTIC ACID LEVEL, Timed 07/17/2017 8:30 PM Results for this SEPSIS - NOW AND REPEAT PRODUCTION STAGE MANAGER procedure are in 2X EVERY 3 HOURS the results section. ZZESTIMATED GFR STAT 07/17/2017 4:55 PM Results for this PRODUCTION STAGE MANAGER procedure are in the results section. LIPASE LEVEL STAT 07/17/2017 4:55 PM Results for this PRODUCTION STAGE MANAGER procedure are in the results section. COMPREHENSIVE METABOLIC STAT 07/17/2017 4:55 PM Results for this PANEL PRODUCTION STAGE MANAGER procedure are in the results section. LACTIC ACID LEVEL, STAT 07/17/2017 4:55 PM Results for this SEPSIS - NOW AND REPEAT PRODUCTION STAGE MANAGER procedure are in 2X EVERY 3 HOURS the results section. HC COMPLETE BLD COUNT STAT 07/17/2017 4:55 PM Results for this W/AUTO DIFF PRODUCTION STAGE MANAGER procedure are in the results section. BLOOD CULTURE, AEROBIC & Routine 07/17/2017 4:55 PM Results for this ANAEROBIC PRODUCTION STAGE MANAGER procedure are in the results section. BLOOD CULTURE, AEROBIC & Routine 07/17/2017 4:50 PM Results for this ANAEROBIC PRODUCTION STAGE MANAGER procedure are in the results section. after 03/01/2017 Results POC glucose (08/25/2017 8:40 AM)Only the most recent of4 resultswithin the time period is included. POC glucose 152 (H) 65 - 99 mg/dL [facility] DEPARTMENT OF PATHOLOGY AND Comment: GENOMIC MEDICINE RN Notified Meter ID: [id number] Pc Maintenance Technician: Boogie Blackburn Performing Organization Address City/State/Zipcode Phone Number [facility] DEPARTMENT OF PATHOLOGY [address] [place] [address] AND GENOMIC MEDICINE POC panel 4 (08/25/2017 6:59 AM) POC sodium 138 135 - 148 meq/L [facility] DEPARTMENT OF PATHOLOGY AND GENOMIC MEDICINE POC potassium 3.7 3.5 - 5.0 meq/L [facility] DEPARTMENT OF PATHOLOGY AND GENOMIC MEDICINE POC hematocrit 36 (L) 41 - 51 % [facility] DEPARTMENT OF PATHOLOGY AND GENOMIC MEDICINE POC glucose 155 (H) 65 - 99 mg/dL [facility] DEPARTMENT OF PATHOLOGY AND GENOMIC MEDICINE POC hemoglobin 12.2 (L) 14.0 - 18.0 g/dL [facility] DEPARTMENT OF PATHOLOGY AND GENOMIC MEDICINE Specimen Blood Performing Organization Address City/[facility] Phone Number [facility] DEPARTMENT OF PATHOLOGY [id number] [place] [address] [employer] [facility] Estimated GFR (08/25/2017 6:47 AM)Only the most recent of2 resultswithin the time period is included. GFR Non Af Amer 18 (A) mL/min/1.73 m2 [facility] DEPARTMENT OF PATHOLOGY AND [employer] MEDICINE GFR Af Amer 22 (A) mL/min/1.73 m2 [facility] DEPARTMENT OF Comment: PATHOLOGY AND [employer] Chronic kidney disease: <60 mL/min/1.73m2 MEDICINE Kidney [...] Americans. Specimen Plasma specimen Performing Organization Address City/[facility] Phone Number [facility] DEPARTMENT OF PATHOLOGY [address] [place] [address] [employer] [facility] Basic metabolic panel (08/25/2017 6:47 AM) Sodium 138 135 - 148 mEq/L [facility] DEPARTMENT OF PATHOLOGY AND GENOMIC MEDICINE Potassium 3.9 3.5 - 5.0 mEq/L [facility] DEPARTMENT OF PATHOLOGY AND GENOMIC MEDICINE Chloride 100 98 - 112 mEq/L [facility] DEPARTMENT OF PATHOLOGY AND GENOMIC MEDICINE CO2 26 24 - 31 mEq/L [facility] DEPARTMENT OF PATHOLOGY AND GENOMIC MEDICINE Anion gap 12 7 - 15 mEq/L [facility] DEPARTMENT OF Comment: PATHOLOGY AND GENOMIC Starting from September , anion gap calculation MEDICINE no longer incorporates potassium. Please note the change. BUN 29 (H) 6 - 20 mg/dL [facility] DEPARTMENT OF PATHOLOGY AND GENOMIC MEDICINE Creatinine 3.6 (H) 0.7 - 1.2 mg/dL [facility] DEPARTMENT OF PATHOLOGY AND GENOMIC MEDICINE Glucose 159 (H) 65 - 99 mg/dL [facility] DEPARTMENT OF PATHOLOGY AND GENOMIC MEDICINE Calcium 9.2 8.3 - 10.2 mg/dL [facility] DEPARTMENT OF PATHOLOGY AND GENOMIC MEDICINE Specimen Plasma specimen Performing Organization Address City/State/Zipcode Phone Number [facility] DEPARTMENT OF PATHOLOGY [address] [facility] [place] [address] AND GENOMIC MEDICINE CBC with platelet and differential (08/23/2017 12:26 PM)Only the most recent of2 resultswithin the time period is included. WBC 6.9 4.5 - 11.0 k/uL [facility] DEPARTMENT OF PATHOLOGY AND GENOMIC MEDICINE RBC 3.16 (L) 4.40 - 6.00 m/uL [facility] DEPARTMENT OF PATHOLOGY AND GENOMIC MEDICINE HGB 8.6 (L) 14.0 - 18.0 g/dL [facility] DEPARTMENT OF PATHOLOGY AND GENOMIC MEDICINE HCT 27.4 (L) 41.0 - 51.0 % [facility] DEPARTMENT OF PATHOLOGY AND GENOMIC MEDICINE MCV 86.7 82.0 - 100.0 fL [facility] DEPARTMENT OF PATHOLOGY AND GENOMIC MEDICINE MCH 27.2 27.0 - 34.0 pg [facility] DEPARTMENT OF PATHOLOGY AND GENOMIC MEDICINE MCHC 31.4 31.0 - 37.0 g/dL [facility] DEPARTMENT OF PATHOLOGY AND GENOMIC MEDICINE RDW - SD 52.3 37.0 - 55.0 fL [facility] DEPARTMENT OF PATHOLOGY AND GENOMIC MEDICINE MPV 9.1 6.9 - 11.0 fL [facility] DEPARTMENT OF PATHOLOGY AND GENOMIC MEDICINE Platelet count 273 150 - 400 K/uL [facility] DEPARTMENT OF PATHOLOGY AND GENOMIC MEDICINE Nucleated RBC 0.00 /100 WBC [facility] DEPARTMENT OF PATHOLOGY AND GENOMIC MEDICINE Neutrophils 63.7 39.0 - 69.0 % [facility] DEPARTMENT OF PATHOLOGY AND GENOMIC MEDICINE Lymphocytes 18.6 (L) 25.0 - 45.0 % [facility] DEPARTMENT OF PATHOLOGY AND GENOMIC MEDICINE Monocytes 12.3 (H) 0.0 - 10.0 % [facility] DEPARTMENT OF PATHOLOGY AND GENOMIC MEDICINE Eosinophils 4.0 0.0 - 5.0 % [facility] DEPARTMENT OF PATHOLOGY AND GENOMIC MEDICINE Basophils 0.7 0.0 - 1.0 % [facility] DEPARTMENT OF PATHOLOGY AND GENOMIC MEDICINE Immature granulocytes 0.7 0.0 - 1.0 % [facility] DEPARTMENT OF PATHOLOGY AND GENOMIC MEDICINE Specimen Blood Performing Organization Address [facility]erc[facility]y Phone Number [facility] DEPARTMENT OF PATHOLOGY [address] [place] [id number] AND GENOMIC MEDICINE ECG Pre/Post Op (08/23/2017 11:23 AM) Ventricular rate 54 [facility] Atrial rate 54 [facility] OK interval 176 [facility] QRSD interval 88 [facility] QT interval 492 [facility] QTC interval 466 [facility] P axis 1 5 [facility] QRS axis 1 10 [facility] T wave axis 140 [facility] EKG impression Sinus bradycardia-T wave abnormality, [facility] MUSE consider lateral ischemia-Prolonged QT-Abnormal ECG-No previous ECGs available- Performing Organization Address [facility] Phone Number [facility] MUSE [address] [place] [address] NM Gastric Emptying (07/18/2017 5:06 PM) Narrative Performed At Procedure:NM GASTRIC EMPTYING [facility] Clinical History:ABDOMINAL PAIN Technique 0.8 millicuries of [id number] colloid were mixed with an egg and cooked. The egg was fed to the patient and dynamic imaging of the abdomen in the anterior and posterior projections was performed for 90 minutes. Quantification of gastric emptying was performed using the geometric mean of the anterior and posterior projections. FINDINGS: Gastric emptying half time=53 minutes (normal is <100 minutes). IMPRESSION: Normal gastric emptying. [facility]-[id number] Procedure Note Interface, Radiology Results Incoming - 07/18/2017 5:20 PM PRODUCTION STAGE MANAGER Procedure: NM GASTRIC EMPTYING Clinical History: ABDOMINAL PAIN Technique 0.8 millicuries of [id number] colloid were mixed with an egg and cooked. The egg was fed to the patient and dynamic imaging of the abdomen in the anterior and posterior projections was performed for 90 minutes. Quantification of gastric emptying was performed using the geometric mean of the anterior and posterior projections. FINDINGS: Gastric emptying half time=53 minutes (normal is <100 minutes). IMPRESSION: Normal gastric emptying. [facility]-[id number] Performing Organization Address [facility] Phone Number [facility] [address] [place] [address] Fungus smear (07/18/2017 10:00 AM) Fungus smear No fungi observed. [facility] DEPARTMENT OF PATHOLOGY Comment: AND GENOMIC MEDICINE Specimen Information Specimen Source: Peritoneal fluid Specimen Site: Peritoneal Specimen Peritoneal fluid - Peritoneal Performing Organization Address City/[facility]ercode Phone Number [facility] DEPARTMENT OF PATHOLOGY AND [address] [place] [phone] GENOMIC MEDICINE Aerobic culture (07/18/2017 10:00 AM) Aerobic culture isolate No growth after 3 days. [facility] DEPARTMENT OF Comment: PATHOLOGY AND GENOMIC Specimen Information MEDICINE Specimen Source: Peritoneal fluid Specimen Site: Peritoneal Specimen Peritoneal fluid - Peritoneal Performing Organization Address City/[facility]ercode Phone Number [facility] DEPARTMENT OF PATHOLOGY AND [address] [place] [phone] [facility] MEDICINE Gram stain (07/18/2017 10:00 AM) Gram stain isolate Rare WBC's [facility] DEPARTMENT OF PATHOLOGY No organisms seen AND GENOMIC MEDICINE Comment: Specimen Information Specimen Source: Peritoneal fluid Specimen Site: Peritoneal Specimen Peritoneal fluid - Peritoneal Performing Organization Address [facility] Cent[facility]ode Phone Number [facility] DEPARTMENT OF PATHOLOGY AND [address] [place] [address] GENOMIC [facility] Fungus culture (07/18/2017 10:00 AM) Fungus culture isolate No growth after 4 weeks of incubation. [facility] DEPARTMENT OF Comment: PATHOLOGY AND GENOMIC Specimen Information MEDICINE Specimen Source: Peritoneal fluid Specimen Site: Peritoneal Specimen Peritoneal fluid - Peritoneal Performing Organization Address City/[facility] Centercode Phone Number [facility] DEPARTMENT OF PATHOLOGY AND [address] [place] [phone] GENOMIC MEDICINE Anaerobic culture (07/18/2017 10:00 AM) Anaerobic culture No anaerobic organisms isolated. [facility] DEPARTMENT OF isolate Comment: PATHOLOGY AND GENOMIC Specimen Information MEDICINE Specimen Source: Peritoneal fluid Specimen Site: Peritoneal Specimen Peritoneal fluid - Peritoneal Performing Organization Address City/[facility]/Zipcode Phone Number [facility] DEPARTMENT OF PATHOLOGY AND [address] [place] [address] [employer] MEDICINE Cell count and differential, body fluid (07/18/2017 10:00 AM) [facility] fluid type PD fluid [facility] DEPARTMENT OF PATHOLOGY AND GENOMIC MEDICINE Color, fluid Colorless [facility] DEPARTMENT OF PATHOLOGY AND GENOMIC MEDICINE Appearance, fluid Clear [facility] DEPARTMENT OF PATHOLOGY AND GENOMIC MEDICINE RBC, fluid SEE COMMENTComment: 1+ (0 - /CMM [facility] DEPARTMENT OF 500 RBC/CMM) PATHOLOGY AND GENOMIC MEDICINE Nucleated cells, fluid 29 /CMM [facility] DEPARTMENT OF PATHOLOGY AND GENOMIC MEDICINE Fluid mononuclear cell SEE COMMENT [facility] DEPARTMENT OF Comment: PATHOLOGY AND GENOMIC Footnote--------- MEDICINE Unable to perform differential due to very low count. Specimen Fluid Performing Organization Address City/State/Zipcode Phone Number [facility] DEPARTMENT OF PATHOLOGY [address] [place] [address] Abdomen Pelvis Wo [...] renal calyceal stones are present without hydronephrosis. [id number] Procedure Note Interface, Radiology Results Incoming - 07/18/2017 9:14 AM PRODUCTION STAGE MANAGER EXAMINATION: CT ABDOMEN PELVIS WO CONTRAST CLINICAL [...] renal calyceal stones are present without hydronephrosis. [id number] Performing Organization Address [facility] Centercode Phone Number [facility] [address] [place] [phone] Lactic acid level, SEPSIS - Now and repeat 2x every 3 hours (07/18/2017 4:11 AM )Only the most recent of3 resultswithin the time period is included. Lactic acid 0.6 0.5 - 2.2 mmol/L [facility] DEPARTMENT OF PATHOLOGY AND GENOMIC MEDICINE Specimen Plasma specimen Performing Organization Address [facility] Phone Number [facility] DEPARTMENT OF PATHOLOGY [address] [place] [address]. [place] [address] AND [facility] Blood culture, aerobic & anaerobic (07/17/2017 4:55 PM)Only the most recent of2 resultswithin the time period is included. Blood culture isolate No growth after 5 days of incubation. [facility] DEPARTMENT OF Comment: PATHOLOGY AND GENOMIC Specimen Information MEDICINE Specimen Source: Blood Specimen Site: Hand, right Specimen Blood - Hand, right Performing Organization Address [facility]/Zipcode Phone Number [facility] DEPARTMENT OF PATHOLOGY AND [address] [place] [address] [facility] MEDICINE Lipase level (07/17/2017 4:55 PM) Lipase 48 13 - 60 U/L [facility] DEPARTMENT OF PATHOLOGY AND GENOMIC MEDICINE Specimen Plasma specimen Performing Organization Address [facility]/Zipcode Phone Number [facility] DEPARTMENT OF PATHOLOGY [address] [place] [address] AND [employer] [facility] Comprehensive metabolic panel (07/17/2017 4:55 PM) Sodium 134 (L) 135 - 148 mEq/L [facility] DEPARTMENT OF PATHOLOGY AND GENOMIC MEDICINE Potassium 4.6 3.5 - 5.0 mEq/L [facility] DEPARTMENT OF PATHOLOGY AND GENOMIC MEDICINE Chloride 96 (L) 98 - 112 mEq/L [facility] DEPARTMENT OF PATHOLOGY AND GENOMIC MEDICINE CO2 25 24 - 31 mEq/L [facility] DEPARTMENT OF PATHOLOGY AND GENOMIC MEDICINE Anion gap 13 7 - 15 mEq/L [facility] DEPARTMENT OF Comment: PATHOLOGY AND GENOMIC Starting from September , anion gap calculation MEDICINE no longer incorporates potassium. Please note the change. BUN 22 (H) 6 - 20 mg/dL [facility] DEPARTMENT OF PATHOLOGY AND GENOMIC MEDICINE Creatinine 3.8 (H) 0.7 - 1.2 mg/dL [facility] DEPARTMENT OF PATHOLOGY AND GENOMIC MEDICINE Glucose 138 (H) 65 - 99 mg/dL [facility] DEPARTMENT OF PATHOLOGY AND GENOMIC MEDICINE Calcium 8.7 8.3 - 10.2 mg/dL [facility] DEPARTMENT OF PATHOLOGY AND GENOMIC MEDICINE Protein 6.8 6.3 - 8.3 g/dL [facility] DEPARTMENT OF PATHOLOGY AND GENOMIC MEDICINE Albumin 2.8 (L) 3.5 - 5.0 g/dL [facility] DEPARTMENT OF PATHOLOGY AND GENOMIC MEDICINE A/G ratio 0.7 0.7 - 3.8 [facility] DEPARTMENT OF PATHOLOGY AND GENOMIC MEDICINE Alkaline phosphatase 69 40 - 129 U/L [facility] DEPARTMENT OF PATHOLOGY AND GENOMIC MEDICINE AST 20 10 - 50 U/L [facility] DEPARTMENT OF PATHOLOGY AND GENOMIC MEDICINE ALT 6 5 - 50 U/L [facility] DEPARTMENT OF PATHOLOGY AND GENOMIC MEDICINE Total bilirubin <0.2 0.2 - 1.2 mg/dL [facility] DEPARTMENT OF PATHOLOGY AND GENOMIC MEDICINE Specimen Plasma specimen Performing Organization Address City/State/Zipcode Phone Number [facility] DEPARTMENT OF PATHOLOGY [address] [place] [address] AND GENOMIC MEDICINE after 03/01/2017 Insurance Payer Benefit Plan / Group Subscriber ID Type Phone Address SILVIA CARCAMO xxxxxxxxxxxx PPO MEDICARE MEDICARE PART A AND B xxxxxxxxxx Medicare [place], [place] [phone] [place], [place] [phone]
--- OUTSIDE RECORDS SUMMARY | 2018-03-02 19:26 | XMS REPORT | Clinical Summary ---
:1965 Author Organization [facility] Address [address] [place] [address] Phone Care Team Providers Name Role Phone [...] Bala Traore 06/15/2017 Medicine MD Nabila after 03/01/2017 Social History Tobacco Use Types Packs/Day Years Used Date Never Smoker Smokeless Tobacco: Never Used Sex Assigned at Date Recorded Not on file Last Filed Vital Signs Vital Sign Reading Time Taken Blood Pressure 124/61 06/15/2017 4:00 PM ATTENDANCE OFFICER Pulse 66 06/15/2017 4:00 PM ATTENDANCE OFFICER Temperature 36.3 C (97.3 F) 06/15/2017 4:00 PM ATTENDANCE OFFICER Respiratory Rate 18 06/15/2017 4:00 PM ATTENDANCE OFFICER Oxygen Saturation 96% 06/15/2017 4:00 PM ATTENDANCE OFFICER Inhaled Oxygen Concentration - - Weight 97 kg (213 lb 12.8 oz) 06/08/2017 10:42 PM ATTENDANCE OFFICER Height 190.5 cm (6' 3") 06/08/2017 10:42 PM ATTENDANCE OFFICER Body Mass Index 26.72 06/08/2017 10:42 PM ATTENDANCE OFFICER Plan of Treatment Not on file Implants Implanted Type Area License Inspector Device Expiration Model / Identifier Date Serial / Lot Cath Peritoneal Dyls 57cm 2cuf [id number] - Sn/A Catheter N/A: COVIDIEN: SHAZIA 02/17/2021 [id number] / Implanted: Qty: 1 on 06/14/2017 by Abdiel Ivory MD Dialysis Abdomen L N/A / [id number] Procedures Procedure Name Priority Date/Time Associated Diagnosis Comments LAPAROSCOPY,INSERT 06/14/2017 11:00 AM Renal Failure PERITONEAL CATHETER ATTENDANCE OFFICER after 03/01/2017 Results RHYTHM STRIP - SCAN (07/04/2017 3:42 [...] Range POC-Glucose Meter 243 (H)Comment: TESTED AT [facility] [address] 70 - 110 mg/dL [facility] [address] Specimen Performing Laboratory Blood [facility] [address] [address] CBC with platelet count + automated diff [...] - 0.20 K/L Specimen Performing Laboratory Blood [facility] [address] [place] [address] CBC with platelet count + automated diff (06/15/2017 12:59 PM)Only the most recent of3 resultswithin the time period is included. Specimen Performing Laboratory Blood Narrative The following orders were created for panel order CBC with platelet count + automated diff. Procedure Abnormality Status --------- ------ CBC with platelet count ...[[id number]]AbnormalFinal result Please view results for these tests on the individual orders. Magnesium (06/15/2017 12:59 PM)Only the most recent of2 resultswithin the time period is included. Component Value Ref Range Magnesium 1.9 1.5 - 3.0 mg/dL Specimen Performing Laboratory Blood [facility] [address] [place] [address] Basic Metabolic Panel (06/15/2017 12:59 PM)Only the [...] FOR DIALYSIS PATIENTS. Specimen Performing Laboratory Blood [facility] [address] [place] [address] POC-TCO2 (06/14/2017 10:22 AM) Component Value Ref Range POC-TCO2 30 (H)Comment: TESTED AT [address] 22 - 29 meq/[place] [address] Specimen Performing Laboratory Blood [address] [address] POC-Chloride (06/14/2017 10:22 AM) Component Value Ref Range POC-Chloride 97 (L)Comment: TESTED AT [address] 98 - 107 meq/ L [place] [address] Specimen Performing Laboratory Blood [address] [address] POC-BUN (06/14/2017 10:22 AM) Component Value Ref Range POC-BUN 20Comment: TESTED AT [address] 7 - 21 mg /dL [facility] Specimen Performing Laboratory Blood [address] [address] POC-Creatinine (06/14/2017 10:22 AM) Component Value Ref Range POC-Creatinine 3.6 (H)Comment: TESTED AT [address] 0.6 - 1.3 mg/dL [place] [address] POC-EGFR 18 mL/min/1.73M2 Specimen Performing Laboratory Blood [address] [address] POCT-HEMATOCRIT (06/14/2017 10:22 AM) Component Value Ref Range POC-Hematocrit 24 (L)Comment: TESTED AT [address] 40 - 50 % [place] [address] Specimen Performing Laboratory Blood [address] [address] POCT-HEMOGLOBIN (06/14/2017 10:22 AM) Component Value Ref Range POC-Hemoglobin 8.2 (L)Comment: TESTED AT [address] 13.0 - 16.8 g/dL [place] [address] Specimen Performing Laboratory Blood [address] [address] POCT-GLUCOSE (06/14/2017 10:22 AM) Component Value Ref Range POC-Glucose 123 (H)Comment: TESTED AT [address] 70 - 110 mg/ dL [place] [address] Specimen Performing Laboratory Blood [address] [address] POC-Sodium (06/14/2017 10:22 AM) Component Value Ref Range POC-Sodium 138Comment: [address] [facility] 135 - 148 meq/[place] [address] Specimen Performing Laboratory Blood [facility] [address] [place] [address] POC-Potassium (06/14/2017 10:22 AM) Component Value Ref Range POC-Potassium 3.6Comment: TESTED AT [facility] [address] 3.6 - 5.5 meq/[place] [address] Specimen Performing Laboratory Blood [facility] [address] [place] [address] TRANSFUSION SERVICE REPORT - SCAN (06/13/2017 5:30 PM)ECHOCARDIOGRAM REPORT - SCAN (06/13/2017 2:20 PM)2D Echo W/Doppler(CW/PW/Color) (06/13/2017 7:42 AM) Component Value Ref Range Ejection Fraction Specimen Performing Laboratory [facility] ECHO HEARTLAB MKCKESSON CPACS Narrative Transthoracic Echocardiography Report (TTE) Demographics Patient Name YUSUF DARBY Date of Study 06/13/2017 [id number] Male Visit Number [id number] Accession Number [id number] Room Number B432 Date of Birth1965Referring Physician Age52 year(s)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 Seymour [facility] Interpreting [...] External Ris In - 06/13/2017 1:51 PM ATTENDANCE OFFICER Transthoracic Echocardiography Report (TTE) Demographics Patient Name YUSUF DABRY Date of Study 06/13/2017 Gender Male Visit Number [id number] Race Unknown Accession Number [id number] Room Number B432 Date of 1965 Referring Physician Age 52 year(s) 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 HIGH RISK: Target INR is 2.5-3.5 for patients with mechanical heart valves. Type and screen ([facility]) (06/12/2017 3:29 PM) Component Value Ref Range Ab Scrn NEGATIVE ABO Grouping A Rh Factor POS Specimen Performing Laboratory Blood [facility] [address] [place] [address] TSH (06/12/2017 3:29 PM) Component Value Ref Range TSH 2.09 0.35 - 5.50 uIU/mL Specimen Performing Laboratory Blood [facility] [address] [place] [address] Comprehensive metabolic panel (06/12/2017 3:29 PM) Component [...] FOR DIALYSIS PATIENTS. Specimen Performing Laboratory Blood [facility] [address] [place] [address] XR chest 1 view portable / bedside [...] MD Report Verified Date/Time:06/10/2017 08:49:42 Reading Location: [facility] Radiology Reading Room Procedure Note Interface, External Ris In - 06/10/2017 8:51 AM ATTENDANCE OFFICER FINAL REPORT TECHNIQUE: Frontal chest radiograph dated [...] Report Verified Date/Time: 06/10/2017 08:49:42 Reading Location: [facility] Radiology Reading Room Hepatitis B core antibody, total (06/10/2017 8:13 AM) Component Value Ref Range Hep B Core Total Ab Nonreactive Nonreactive Specimen Performing Laboratory Blood - Arm, Left [address] [address] Hepatitis B surface antibody (06/09/2017 7:06 PM) Component Value Ref Range Hep B S Ab <8.0 <8.0 mIU/mL Specimen Performing Laboratory Blood - Central Venous Line [address] [address] Hepatitis B surface antigen (06/09/2017 7:06 PM) Component Value Ref Range hepatitis B Surface Ag Nonreactive Nonreactive Specimen Performing Laboratory Blood - Central Venous Line [facility] [address] [place] [address] IR Tunneled Catheter Insertion (06/09/2017 11:45 AM) Specimen Performing Laboratory GE RIS Narrative FINAL REPORT Tunneled central venous catheter insertion. History: End-stage renal disease Modality: Sonography and fluoroscopy. Sedation: Moderate sedation was administered. 2 mg of Versed [id number] mcg of fentanyl IV was used for moderate sedation monitored under my direction. Total intra-service time of sedation [id number]. The patient's vital signs were monitored throughout the procedure and recorded in the patient's medical record by the nurse. Supplier Manager:Onesimo Lopez MD. Mortgage Servicing Specialist:None. Approach: Right internal jugular vein Estimated blood [...] needle into the right atrium. A 4 Moroccan micropuncture sheath was placed.A subcutaneous tunnel was created in the right anterior chest wall by blunt dissection.A 19 cm tipped cuff 15.5 Moroccan Duraflow 2 catheter was brought through the [...] MD Report Verified Date/Time:06/09/2017 12:13:36 Reading Location: [facility] Radiology Reading Room Procedure Note Interface, External Ris In - 06/09/2017 12:21 PM ATTENDANCE OFFICER FINAL REPORT Tunneled central venous catheter insertion. [...] the patient's medical record by the nurse. Supplier Manager: Onesimo Lopez MD. Mortgage Servicing Specialist: None. Approach: Right internal jugular vein Estimated [...] needle into the right atrium. A 4 Moroccan micropuncture sheath was placed. A subcutaneous tunnel was created in the right anterior chest wall by blunt dissection. A 19 cm tipped cuff 15.5 Moroccan Duraflow 2 catheter was brought through the [...] Report Verified Date/Time: 06/09/2017 12:13:36 Reading Location: [facility] Radiology Reading Room /aPTT (06/09/2017 5:15 AM) Component Value Ref Range Protime 10.7 9.3 - 12.0 seconds INR 1.0 <=5.9 PTT 28.5 23.0 - 35.0 seconds Specimen Performing Laboratory Blood - Arm, [facility] [address] [place] [address] Narrative RECOMMENDED COUMADIN/WARFARIN INR THERAPY RANGES STANDARD DOSE: 2.0 - 3.0 Includes: PROPHYLAXIS for venous thrombosis, systemic embolization; TREATMENT for venous thrombosis and/or pulmonary embolus. HIGH RISK: Target INR is 2.5-3.5 for patients with mechanical heart valves. Phosphorus (06/09/2017 5:15 AM) Component Value Ref Range Phosphorus 4.1 2.5 - 4.5 mg/dL Specimen Performing Laboratory Blood - Arm, [facility] [address] [place] [address] Hepatic function panel (06/09/2017 5:15 AM) Component Value Ref Range Protein, Total 6.3 6.0 - 8.5 gm/dL Albumin 3.2 (L) 3.5 - 5.0 g/dL Total Bilirubin 0.4 0.1 - 1.2 mg/dL Bilirubin, Direct 0.2 0.0 - 0.4 mg/dL Alkaline Phosphatase 67 30 - 115 U/L AST 13 5 - 40 U/L ALT 10 5 - 50 U/L Specimen Performing Laboratory Blood - Arm, [facility] [address] [place] [address] after 03/01/2017
--- OUTSIDE RECORDS SUMMARY | 2018-03-02 19:26 | XMS REPORT ---
:1965 [facility] Address [address] [place] [address] [address]. [address]o [address] [place] [address] Care Team Providers Name Role Phone DWIGHT [...] (BEAKER) (test 243 mg/dL 70-110 TESTED AT [facility] [address] [place] [address] kmii=[phone]) [address] [facility] [address] BASIC METABOLIC [id number] 13:51:00 Test Item Value Reference Range Comments SODIUM (BEAKER) (test 139 meq/L 135-148 iauc=448) POTASSIUM (BEAKER) (test 3.4 meq/L 3.6-5.5 xceq=368) CHLORIDE (BEAKER) (test 101 meq/L 98-106 hszo=885) CO2 (BEAKER) (test 29 meq/L 20-29 bxyu=810) BLOOD UREA NITROGEN 11 mg/dL 10-26 (BEAKER) (test udas=165) CREATININE (BEAKER) (test 2.10 mg/dL 0.50-1.20 rvtr=490) GLUCOSE RANDOM (BEAKER) 157 mg/dL 70-110 (test mjun=207) CALCIUM (BEAKER) (test 8.6 mg/dL 8.5-10.5 yfwt=802) EGFR (BEAKER) (test 33 mL/min/1.73 sq m ESTIMATED GFR IS NOT eafm=7575) ACCURATE CREATININE CLEARANCE IN PREDICTING GLOMERULAR FILTRATION RATE. ESTIMATED GFR IS NOT APPLICABLE FOR DIALYSIS PATIENTS. [id number] 13:44:00 Test Item Value Reference Range Comments MAGNESIUM (BEAKER) (test pbgj=775) 1.9 mg/dL 1.5-3.0 CBC W/PLT COUNT & AUTO [id number] 13:34:00 Test Item Value Reference Range Comments WHITE BLOOD CELL COUNT (BEAKER) (test ezef=898) 6.8 K/ L 4.0-10.0 RED BLOOD CELL COUNT (BEAKER) (test boty=211) 2.92 M/ L 4.20-5.80 HEMOGLOBIN (BEAKER) (test jqot=342) 8.4 GM/DL 13.0-16.8 HEMATOCRIT (BEAKER) (test prdv=227) 25.5 % 40.0-50.0 MEAN CORPUSCULAR VOLUME (BEAKER) (test fkjo=402) 87.4 fL 82.0-98.0 MEAN CORPUSCULAR HEMOGLOBIN (BEAKER) (test 28.7 pg 27.0-33.0 jdxk=028) MEAN CORPUSCULAR HEMOGLOBIN CONC (BEAKER) (test 32.8 GM/DL 32.0-36.0 oicm=454) RED CELL DISTRIBUTION WIDTH (BEAKER) (test 14.7 % 10.3-14.2 mlvf=219) PLATELET COUNT (BEAKER) (test gkxb=732) 299 K/CU MM 150-430 MEAN PLATELET VOLUME (BEAKER) (test ndel=607) 6.9 fL 6.5-10.5 NUCLEATED RED BLOOD CELLS (BEAKER) (test 0 /100 WBC 0-0 rmbo=930) NEUTROPHILS RELATIVE PERCENT (BEAKER) (test 65 % pyzb=440) LYMPHOCYTES RELATIVE PERCENT (BEAKER) (test 18 % tlxt=731) MONOCYTES RELATIVE PERCENT (BEAKER) (test 14 % nhcl=641) EOSINOPHILS RELATIVE PERCENT (BEAKER) (test 3 % obnl=875) BASOPHILS RELATIVE PERCENT (BEAKER) (test 1 % wwor=491) NEUTROPHILS ABSOLUTE COUNT (BEAKER) (test 4.40 K/ L 1.80-8.00 jcrn=046) LYMPHOCYTES ABSOLUTE COUNT (BEAKER) (test 1.20 K/ L 1.48-4.50 iqmy=641) MONOCYTES ABSOLUTE COUNT (BEAKER) (test 1.00 K/ L 0.00-1.30 pelm=956) EOSINOPHILS ABSOLUTE COUNT (BEAKER) (test 0.20 K/ L 0.00-0.50 mzma=035) BASOPHILS ABSOLUTE COUNT (BEAKER) (test 0.00 K/ L 0.00-0.20 qwbl=865) POCT-GLUCOSE [id number] 11:28:00 Test Item Value Reference Range Comments POC-GLUCOSE METER (BEAKER) 147 mg/dL 70-110 TESTED AT [address] (test ejta=6068) [facility] [address] POCT-GLUCOSE [id number] 06:04:00 Test Item Value Reference Range Comments POC-GLUCOSE METER (BEAKER) 137 mg/dL 70-110 TESTED AT [address] (test hwfr=4579) [place] [address]28 POCT-GLUCOSE [id number] 21:01:00 Test Item Value Reference Range Comments POC-GLUCOSE METER (BEAKER) 138 mg/dL 70-110 TESTED AT [address] (test ukui=5394) [place] [address]28 POCT-GLUCOSE [id number] 16:06:00 Test Item Value Reference Range Comments POC-GLUCOSE METER (BEAKER) 167 mg/dL 70-110 TESTED AT [address] (test hnyi=4561) [place] [address] POCT-GLUCOSE [id number] 12:49:00 Test Item Value Reference Range Comments POC-GLUCOSE METER (BEAKER) 144 mg/dL 70-110 TESTED AT [address] (test wqyo=3034) [place] [address] [id number] 10:27:00 Test Item Value Reference Range Comments POC-CREATININE (BEAKER) 3.6 mg/dL 0.6-1.3 TESTED AT [address] (test zjai=8263) [place] [id number] POC-EGFR (BEAKER) (test 18 mL/min/1.73M2 tzys=7129) [id number] 10:27:00 Test Item Value Reference Range Comments POC-SODIUM (BEAKER) (test 138 meq/L 135-148 TESTED AT [address] vtbw=4842) [place] [address] [id number] 10:27:00 Test Item Value Reference Range Comments POC-POTASSIUM (BEAKER) 3.6 meq/L 3.6-5.5 TESTED AT [address] (test jthp=9961) [place] [address] [id number] 10:27:00 Test Item Value Reference Range Comments POC-BUN (BEAKER) (test 20 mg/dL 7-21 TESTED AT [address] fokb=9601) [place] [address] [id number] 10:27:00 Test Item Value Reference Range Comments POC-CHLORIDE (BEAKER) (test 97 meq/L 98-107 TESTED AT [address] bfvd=4328) [place] [address] [id number] 10:27:00 Test Item Value Reference Range Comments POC-GLUCOSE (BEAKER) (test 123 mg/dL 70-110 TESTED AT [address] hmuy=9212) [place] [address] [id number] 10:27:00 Test Item Value Reference Range Comments POC-HEMATOCRIT (BEAKER) (test 24 % 40-50 TESTED AT [address] qqqw=2889) [place] [address] [id number] 10:27:00 Test Item Value Reference Range Comments POC-HEMOGLOBIN (BEAKER) 8.2 g/dL 13.0-16.8 TESTED AT [address] (test mhec=8368) [place] [address] [id number] 10:27:00 Test Item Value Reference Range Comments POC-TCO2 (BEAKER) (test 30 meq/L 22-29 TESTED AT [address] cqpi=3877) [place] [address] POCT-GLUCOSE [id number] 06:08:00 Test Item Value Reference Range Comments POC-GLUCOSE METER (BEAKER) 163 mg/dL 70-110 TESTED AT [address] (test xlst=9594) [place] [address] POCT-GLUCOSE [id number] 21:07:00 Test Item Value Reference Range Comments POC-GLUCOSE METER (BEAKER) 132 mg/dL 70-110 TESTED AT [facility] [address] [place] [address] (test wpms=7631) [facility] [address] POCT-GLUCOSE [id number] 12:58:00 Test Item Value Reference Range Comments POC-GLUCOSE METER (BEAKER) 178 mg/dL 70-110 TESTED AT [facility] [address] [place] [address] (test zxis=3333) [facility] [address] POCT-GLUCOSE [id number] 05:29:00 Test Item Value Reference Range Comments POC-GLUCOSE METER (BEAKER) 171 mg/dL 70-110 TESTED AT [address] (test mlvs=7850) [facility] [address] POCT-GLUCOSE [id number] 22:03:00 Test Item Value Reference Range Comments POC-GLUCOSE METER (BEAKER) 249 mg/dL 70-110 TESTED AT [address] (test zdse=3407) [facility] [address] POCT-GLUCOSE [id number] 16:45:00 Test Item Value Reference Range Comments POC-GLUCOSE METER (BEAKER) 213 mg/dL 70-110 TESTED AT [address] (test ctcc=1262) [facility] [address] [id number] 16:43:00 Test Item Value Reference Range Comments THYROID STIMULATING HORMONE (BEAKER) (test 2.09 uIU/mL 0.35-5.50 mktx=535) COMPREHENSIVE METABOLIC [id number] 16:24:00 Test Item Value Reference Range Comments TOTAL PROTEIN (BEAKER) 7.2 gm/dL 6.0-8.5 (test rete=684) ALBUMIN (BEAKER) (test 3.5 g/dL 3.5-5.0 kdgc=2042) ALKALINE PHOSPHATASE 67 U/L 30-115 (BEAKER) (test fwpt=802) BILIRUBIN TOTAL (BEAKER) 0.3 mg/dL 0.1-1.2 (test efro=067) SODIUM (BEAKER) (test 136 meq/L 135-148 dgdu=525) POTASSIUM (BEAKER) (test 4.1 meq/L 3.6-5.5 ciwr=203) CHLORIDE (BEAKER) (test 98 meq/L 98-106 fdjc=129) CO2 (BEAKER) (test 26 meq/L 20-29 tlqy=160) BLOOD UREA NITROGEN 32 mg/dL 10-26 (BEAKER) (test stmr=192) CREATININE (BEAKER) (test 4.40 mg/dL 0.50-1.20 quqg=214) GLUCOSE RANDOM (BEAKER) 212 mg/dL 70-110 (test ihue=479) CALCIUM (BEAKER) (test 9.0 mg/dL 8.5-10.5 adws=647) AST (SGOT) (BEAKER) (test 14 U/L 5-40 lcwq=483) ALT (SGPT) (BEAKER) (test 4 U/L 5-50 ezdg=312) EGFR (BEAKER) (test 14 mL/min/1.73 sq m ESTIMATED GFR IS NOT ffoa=2061) ACCURATE CREATININE CLEARANCE IN PREDICTING GLOMERULAR FILTRATION RATE. ESTIMATED GFR IS NOT APPLICABLE FOR DIALYSIS PATIENTS. CBC W/PLT COUNT & AUTO [id number] 16:02:00 Test Item Value Reference Range Comments WHITE BLOOD CELL COUNT (BEAKER) (test fglk=324) 6.9 K/ L 4.0-10.0 RED BLOOD CELL COUNT (BEAKER) (test tihs=785) 2.95 M/ L 4.20-5.80 HEMOGLOBIN (BEAKER) (test kdst=426) 8.6 GM/DL 13.0-16.8 HEMATOCRIT (BEAKER) (test qzkp=857) 25.9 % 40.0-50.0 MEAN CORPUSCULAR VOLUME (BEAKER) (test dyhz=503) 87.9 fL 82.0-98.0 MEAN CORPUSCULAR HEMOGLOBIN (BEAKER) (test 29.0 pg 27.0-33.0 qrxk=097) MEAN CORPUSCULAR HEMOGLOBIN CONC (BEAKER) (test 33.0 GM/DL 32.0-36.0 vrue=960) RED CELL DISTRIBUTION WIDTH (BEAKER) (test 15.0 % 10.3-14.2 ujsx=873) PLATELET COUNT (BEAKER) (test gbai=132) 330 K/CU MM 150-430 MEAN PLATELET VOLUME (BEAKER) (test wwmu=079) 7.1 fL 6.5-10.5 NUCLEATED RED BLOOD CELLS (BEAKER) (test 0 /100 WBC 0-0 hwku=988) NEUTROPHILS RELATIVE PERCENT (BEAKER) (test 66 % jvml=848) LYMPHOCYTES RELATIVE PERCENT (BEAKER) (test 16 % tnpq=478) MONOCYTES RELATIVE PERCENT (BEAKER) (test 12 % emfg=102) EOSINOPHILS RELATIVE PERCENT (BEAKER) (test 5 % fept=110) BASOPHILS RELATIVE PERCENT (BEAKER) (test 1 % ugod=593) NEUTROPHILS ABSOLUTE COUNT (BEAKER) (test 4.60 K/ L 1.80-8.00 fnqr=066) LYMPHOCYTES ABSOLUTE COUNT (BEAKER) (test 1.10 K/ L 1.48-4.50 ugtx=416) MONOCYTES ABSOLUTE COUNT (BEAKER) (test 0.80 K/ L 0.00-1.30 tnlt=031) EOSINOPHILS ABSOLUTE COUNT (BEAKER) (test 0.30 K/ L 0.00-0.50 nano=023) BASOPHILS ABSOLUTE COUNT (BEAKER) (test 0.10 K/ L 0.00-0.20 mbuy=461) PROTHROMBIN [id number] 16:01:00 Test Item Value Reference Range Comments PROTIME (BEAKER) (test phbv=368) 10.3 seconds 9.3-12.0 INR (BEAKER) (test xyog=489) 1.0 <=5.9 RECOMMENDED COUMADIN/WARFARIN INR THERAPY RANGESSTANDARD DOSE: 2.0 - 3.0 Includes: PROPHYLAXIS forvenous thrombosis, systemic embolization; TREATMENT for venous thrombosis and/or pulmonary embolus.HIGH RISK: Target INR is 2.5-3.5 for patients with mechanical heart valves.POCT-GLUCOSE [id number] 12:01:00 Test Item Value Reference Range Comments POC-GLUCOSE METER (BEAKER) 211 mg/dL 70-110 TESTED AT [address] (test iksk=0617) [facility] [address] POCT-GLUCOSE [id number] 06:08:00 Test Item Value Reference Range Comments POC-GLUCOSE METER (BEAKER) 191 mg/dL 70-110 TESTED AT [address] (test uqyg=5390) [facility] [address] POCT-GLUCOSE [id number] 21:28:00 Test Item Value Reference Range Comments POC-GLUCOSE METER (BEAKER) 233 mg/dL 70-110 TESTED AT [address] (test mkpt=3614) [facility] [address] POCT-GLUCOSE [id number] 16:19:00 Test Item Value Reference Range Comments POC-GLUCOSE METER (BEAKER) 290 mg/dL 70-110 TESTED AT [address] (test hhbq=3505) [facility] [address] POCT-GLUCOSE [id number] 13:33:00 Test Item Value Reference Range Comments POC-GLUCOSE METER (BEAKER) 186 mg/dL 70-110 TESTED AT [address] (test hdjv=0142) [facility] [address] POCT-GLUCOSE [id number] 06:27:00 Test Item Value Reference Range Comments POC-GLUCOSE METER (BEAKER) 204 mg/dL 70-110 TESTED AT [address] (test ycko=6014) [facility] [address] POCT-GLUCOSE [id number] 21:40:00 Test Item Value Reference Range Comments POC-GLUCOSE METER (BEAKER) 267 mg/dL 70-110 TESTED AT [address] (test xmka=2885) [facility] [address] POCT-GLUCOSE [id number] 17:32:00 Test Item Value Reference Range Comments POC-GLUCOSE METER (BEAKER) 221 mg/dL 70-110 TESTED AT [address] (test cgoo=0577) [facility] [address] HEPATITIS B SURFACE [id number] 14:21:00 Test Item Value Reference Range Comments HEPATITIS B SURFACE ANTIBODY (BEAKER) (test < mIU/mL <8.0 lshg=737) HEPATITIS B CORE ANTIBODY, [id number] 14:15:00 Test Item Value Reference Range Comments HEPATITIS B CORE TOTAL ANTIBODY (BEAKER) (test Nonreactive Nonreactive qeat=878) POCT-GLUCOSE [id number] 12:18:00 Test Item Value Reference Range Comments POC-GLUCOSE METER (BEAKER) 193 mg/dL 70-110 TESTED AT [address] (test nozg=7045) [facility] [address] RAD, CHEST, 1 VIEW, NON [id number] 08:49:00Reason for exam:->for outpatient HD placementShould this [...] MDReport Verified Date/Time: 06/10/2017 08:49:42 Reading Location: [facility] Radiology Reading Room Electronically signed by: SACHI HAMMER on 2016 08:49 AMPOCT-GLUCOSE [id number] 06:53:00 Test Item Value Reference Range Comments POC-GLUCOSE METER (BEAKER) 177 mg/dL 70-110 TESTED AT [address] (test rtrs=8594) [facility] [address] POCT-GLUCOSE [id number] 22:10:00 Test Item Value Reference Range Comments POC-GLUCOSE METER (BEAKER) 109 mg/dL 70-110 TESTED AT [address] (test uuem=1922) [facility] [address] HEPATITIS B SURFACE [id number] 20:18:00 Test Item Value Reference Range Comments HEPATITIS B SURFACE ANTIGEN (2) (BEAKER) (test Nonreactive Nonreactive efeb=6027) POCT-GLUCOSE [id number] 17:08:00 Test Item Value Reference Range Comments POC-GLUCOSE METER (BEAKER) 223 mg/dL 70-110 TESTED AT [address] (test ipxx=6779) [facility] [address] POCT-GLUCOSE [id number] 12:47:00 Test Item Value Reference Range Comments POC-GLUCOSE METER (BEAKER) 200 mg/dL 70-110 TESTED AT [address] (test haxo=1881) [facility] [address] ANG, TUNNELED CATHETER [id number] 12:13:00Reason for exam:->renal failureFINAL REPORT Tunneled central [...] the patient's medical record by the nurse. Incoming Freight Clerk: Onesimo Lopez MD. Farm Machinery Mechanic: None. Approach: Right internal jugular vein Estimated [...] needle into the right atrium. A 4 German micropuncture sheath was placed. A subcutaneous tunnel was created in the right anterior chest wall by blunt dissection. A 19 cm tipped cuff 15.5 German Duraflow 2 catheter was brought through the [...] Lopezort Verified Date/Time: 06/09/2017 12:13:36 Reading Location: [facility] Radiology Reading Room 12 :13 PMPOCT-GLUCOSE [id number] 06:03:00 Test Item Value Reference Range Comments POC-GLUCOSE METER (BEAKER) 208 mg/dL 70-110 TESTED AT [facility] [address] [facility] (test drxd=1206) [address] [facility] [address] BASIC METABOLIC [id number] 06:00:00 Test Item Value Reference Range Comments SODIUM (BEAKER) (test 139 meq/L 135-148 cnxa=887) POTASSIUM (BEAKER) (test 3.5 meq/L 3.6-5.5 wenz=699) CHLORIDE (BEAKER) (test 103 meq/L 98-106 vhmk=836) CO2 (BEAKER) (test 26 meq/L 20-29 goxk=941) BLOOD UREA NITROGEN 62 mg/dL 10-26 (BEAKER) (test chof=378) CREATININE (BEAKER) (test 5.10 mg/dL 0.50-1.20 xpvn=415) GLUCOSE RANDOM (BEAKER) 191 mg/dL 70-110 (test ggta=638) CALCIUM (BEAKER) (test 9.0 mg/dL 8.5-10.5 sttx=335) EGFR (BEAKER) (test 12 mL/min/1.73 sq m ESTIMATED GFR IS NOT kygm=0386) ACCURATE CREATININE CLEARANCE IN PREDICTING GLOMERULAR FILTRATION RATE. ESTIMATED GFR IS NOT APPLICABLE FOR DIALYSIS PATIENTS. HEPATIC FUNCTION [id number] 05:58:00 Test Item Value Reference Range Comments TOTAL PROTEIN (BEAKER) (test avue=116) 6.3 gm/dL 6.0-8.5 ALBUMIN (BEAKER) (test jnof=6323) 3.2 g/dL 3.5-5.0 BILIRUBIN TOTAL (BEAKER) (test czbi=874) 0.4 mg/dL 0.1-1.2 BILIRUBIN DIRECT (BEAKER) (test zbjz=250) 0.2 mg/dL 0.0-0.4 ALKALINE PHOSPHATASE (BEAKER) (test zton=400) 67 U/L 30-115 AST (SGOT) (BEAKER) (test ylqo=126) 13 U/L 5-40 ALT (SGPT) (BEAKER) (test okjm=333) 10 U/L 5-50 CBC W/PLT COUNT & AUTO [id number] 05:56:00 Test Item Value Reference Range Comments WHITE BLOOD CELL COUNT (BEAKER) (test eqcy=864) 6.3 K/ L 4.0-10.0 RED BLOOD CELL COUNT (BEAKER) (test gbcb=529) 2.71 M/ L 4.20-5.80 HEMOGLOBIN (BEAKER) (test azbp=249) 7.8 GM/DL 13.0-16.8 HEMATOCRIT (BEAKER) (test pghf=345) 23.6 % 40.0-50.0 MEAN CORPUSCULAR VOLUME (BEAKER) (test obie=049) 86.8 fL 82.0-98.0 MEAN CORPUSCULAR HEMOGLOBIN (BEAKER) (test 28.6 pg 27.0-33.0 tsjq=598) MEAN CORPUSCULAR HEMOGLOBIN CONC (BEAKER) (test 33.0 GM/DL 32.0-36.0 hnvt=627) RED CELL DISTRIBUTION WIDTH (BEAKER) (test 14.8 % 10.3-14.2 wdsu=162) PLATELET COUNT (BEAKER) (test qnmf=181) 334 K/CU MM 150-430 MEAN PLATELET VOLUME (BEAKER) (test mrmn=943) 6.9 fL 6.5-10.5 NUCLEATED RED BLOOD CELLS (BEAKER) (test 0 /100 WBC 0-0 ypaa=905) NEUTROPHILS RELATIVE PERCENT (BEAKER) (test 57 % zzmu=425) LYMPHOCYTES RELATIVE PERCENT (BEAKER) (test 19 % pwzc=517) MONOCYTES RELATIVE PERCENT (BEAKER) (test 15 % plcy=639) EOSINOPHILS RELATIVE PERCENT (BEAKER) (test 7 % uczx=299) BASOPHILS RELATIVE PERCENT (BEAKER) (test 1 % jlla=510) NEUTROPHILS ABSOLUTE COUNT (BEAKER) (test 3.60 K/ L 1.80-8.00 oilm=060) LYMPHOCYTES ABSOLUTE COUNT (BEAKER) (test 1.20 K/ L 1.48-4.50 yovd=009) MONOCYTES ABSOLUTE COUNT (BEAKER) (test 1.00 K/ L 0.00-1.30 dves=007) EOSINOPHILS ABSOLUTE COUNT (BEAKER) (test 0.50 K/ L 0.00-0.50 byaw=058) BASOPHILS ABSOLUTE COUNT (BEAKER) (test 0.10 K/ L 0.00-0.20 eimh=277) [id number] 05:55:00 Test Item Value Reference Range Comments PHOSPHORUS (BEAKER) (test eedi=924) 4.1 mg/dL 2.5-4.5 [id number] 05:51:00 Test Item Value Reference Range Comments PROTIME (BEAKER) (test ppqm=282) 10.7 seconds 9.3-12.0 INR (BEAKER) (test cqvz=802) 1.0 <=5.9 PARTIAL THROMBOPLASTIN TIME (BEAKER) (test 28.5 seconds 23.0-35.0 plwr=514) RECOMMENDED COUMADIN/WARFARIN INR THERAPY RANGESSTANDARD DOSE: 2.0 - 3.0 Includes: PROPHYLAXIS forvenous thrombosis, systemic embolization; TREATMENT for venous thrombosis and/or pulmonary embolus.HIGH RISK: Target INR is 2.5-3.5 for patients with mechanical heart valves.[id number] 05:50:00 Test Item Value Reference Range Comments MAGNESIUM (BEAKER) (test uiga=416) 1.7 mg/dL 1.5-3.0 POCT-GLUCOSE [id number] 23:14:00 Test Item Value Reference Range Comments POC-GLUCOSE METER (BEAKER) 230 mg/dL 70-110 TESTED AT [address] (test dsnp=4162) [facility] [address]
[2018-03-02] MEDS ORDERED: GLUCAGON 1 MG/VIAL IM PRN (20:36)
[2018-03-02] MEDS ORDERED: D50W 25 GM/50 ML SYRINGE IV PRN (20:36)
[2018-03-02] MEDS: INSULIN -REGULAR HUMAN 50 UNIT/0.5 ML ML SQ SCH (21:00)
[2018-03-02] MEDS ORDERED: CLONIDINE 0.3 MG/PATCH TD SCH (21:00)
[2018-03-02] MEDS: MORPHINE 2 MG/ML SYR IV PRN (21:07)
[2018-03-02 21:09] LABS: Basophils % 1.3 % (0-1.3); Eosinophils % 2.9 % (0-4.4); Lymphocytes % 15.9 % (15.3-44.8); MCH 30.7 pg (27.0-35.0); MCV 92.5 fL (80-100); MPV 7.5 fL (7.6-11.3); Monocytes % 15.7 % (3.3-12.3); RBC Red Blood Cell Count 3.46 M/uL (4.33-5.43)
[2018-03-02] MEDS: PROMETHAZINE 25 MG/ML VIAL IV PRN (21:09)
[2018-03-02 21:51] LABS: Blood Morphology Comment NOT SEEN (NOT SEEN); Platelet Estimate ADEQ; Urine White Blood Cell Casts OK
[2018-03-02] MEDS ORDERED: AMLODIPINE 10 MG TAB PO ONE (22:37)
[2018-03-02] MEDS ORDERED: HYDROCODONE/APAP 5/325 MG TAB PO PRN (22:37)
[2018-03-03 00:01] VITALS: O2SAT 98; BMI 25.4
[2018-03-03] MEDS: MORPHINE 2 MG/ML SYR IV PRN ×3 (01:05→14:47)
[2018-03-03] MEDS: PROMETHAZINE 25 MG/ML VIAL IV PRN (01:05)
[2018-03-03] MEDS: INSULIN -REGULAR HUMAN 50 UNIT/0.5 ML ML SQ SCH ×3 (07:30→17:22)
[2018-03-03] MEDS ORDERED: NITROGLYCERIN 0.4 MG/TAB SL PRN (08:02)
[2018-03-03] MEDS ORDERED: ZOLPIDEM TARTRATE 5 MG TABLET PO PRN (08:02)
[2018-03-03] MEDS ORDERED: NITROGLYCERIN 0.2 MG/HR (5 MG) PATCH TD PRN (08:02)
[2018-03-03] MEDS ORDERED: ONDANSETRON 4 MG (ODT) TAB PO PRN (08:02)
[2018-03-03] MEDS: cloNIDine HCl 0.1 MG TAB PO SCH ×2 (08:58→14:00)
[2018-03-03] MEDS: FUROSEMIDE 40 MG TABLET PO SCH ×2 (08:59→17:22)
[2018-03-03] MEDS ORDERED: DRISDOL (VITAMIN D=ERGOCALCIFEROL) 50000 UNIT CAP PO SCH (09:00)
[2018-03-03] MEDS ORDERED: DOCUSATE NA/SENNA CONC 1 TAB PO SCH (09:00)
[2018-03-03] MEDS ORDERED: METOPROLOL TAR 50 MG TAB PO SCH (09:00)
[2018-03-03] MEDS ORDERED: SERTRALINE HCL 50 MG TAB PO SCH (09:00)
[2018-03-03] MEDS ORDERED: AMLODIPINE 10 MG TAB PO SCH (09:00)
[2018-03-03] MEDS: METOCLOPRAMIDE 5 MG TAB PO SCH ×2 (09:00→14:47)
[2018-03-03] MEDS ORDERED: HYDRALAZINE HCL 25 MG TABLET PO SCH (09:00)
[2018-03-03] MEDS ORDERED: ASPIRIN EC 325 MG TABLET PO SCH (09:00)
[2018-03-03] MEDS ORDERED: FAMOTIDINE 20 MG TAB PO SCH (09:00)
[2018-03-03] MEDS ORDERED: CLOPIDOGREL 75 MG TABLET PO SCH (09:00)
[2018-03-03] MEDS ORDERED: NA CHLORIDE 0.9% 1,000 ML IV PRN (10:50)
[2018-03-03] MEDS ORDERED: ALBUMIN HUMAN 25% 50 ML IV SCH (11:00)
[2018-03-03] MEDS ORDERED: EPOETIN ALFA 10,000 UNIT/ML VIAL IV SCH (11:00)
--- NOTE | 2018-03-03 16:35 | HP ---
Date of Admission: 03/02/2018 Chief Complaint: Nausea, vomiting. History Of Present Illness: This is a 52-year-old male patient with multiple comorbidities, who has had recurrent hospital admissions because of nausea, vomiting. His last hospital admission for simil ar problem was on 02/19/2018, and the one prior to that was 01/24/2018. The patient reported during the last hospital admission that he was going to have EGD with Dr. Rosenberg, which was going to be done either last week or a week before last after he was in the hospital, but today when he came to [facility] e upon further questioning, he reported that Dr. Rosenberg decided to do that EGD at hospital because of his multiple other comorbidities, so that was not done and it will be done probably sometime within next week to two weeks as I understand. He denies any abdominal pain. No fever. No chills. No hem atemesis. He is not able to keep any food or liquids down. For last 3 days, not able to keep any med ications down. Every time he tries to eat or drink something or takes medication, he ends up throwin g it. He has some back pain, which is his chronic problem. No fall. No injury. After he was evalu ated at office, he was admitted to the hospital. Allergies: SULFA, CAUSING RASH AND HIVES. Medications: List reviewed. Review of Systems: GI: As mentioned above. Musculoskeletal: As mentioned above. All other systems reviewed and negative. Past Medical History: Significant for hypertension; type 2 diabetes mellitus with chronic kidney dis ease; coronary artery disease; anemia due to chronic kidney disease; hyperlipidemia; gastritis; end-s tage renal disease, on hemodialysis; gastroparesis due to diabetes and chronic back pain. 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 Family History: Significant for throat cancer, tuberculosis, diabetes mellitus, hypertension. Social History: Negative for smoking and alcohol use. Physical Examination: Vital Signs: Upon admission, temperature 99, pulse 89, respiratory rate 16, blood pressure 219/98. Height 6 feet 3 inches, weight 204 pounds. General: Awake, alert, oriented, not in distress. HEENT: Head atraumatic, normocephalic. Conjunctivae nonerythematous. Sclerae white. Mouth, no thr ush or edema noted. Ears/Nose, no mass, lesion, discharge noted. Neck: Supple. No JVD, lymph nodes, bruit, thyromegaly noted. Lungs: Bilateral good equal air entry. Clear to auscultation. No rhonchi. No rales. Heart: Normal heart sounds, no murmur or gallop. Abdomen: Soft, bowel sounds normal. No guarding, rigidity, tenderness, mass, hepatosplenomegaly, dis tention, or bruit noted. Extremities: No leg edema. No calf tenderness. Skin: No rash, ulcer, cellulitis. Lymphatics: No lymph node enlargement in neck, supraclavicular, infraclavicular region. Neuro: No focal neurological deficit. Chest: Unremarkable. External Genitalia: Deferred. Rectal: Deferred. Laboratory Data: White count 6.2, hemoglobin 10.6, platelets 257. Sodium 139, potassium 4, chloride 104, bicarb 27, BUN 25, creatinine 5.90, glucose 119. Impression: 1.Intractable nausea, vomiting. 2.Diabetic gastroparesis. 3.End-stage renal disease, on hemodialysis. 4.Hypertension. 5.Type 2 diabetes mellitus with chronic kidney disease. 6.Hyperlipidemia. 7.Coronary artery disease. 8.Chronic back pain. 9.Chronic gastritis. 10.Insomnia. Plan: Admit the patient to hospital for observation. We will go ahead and give him symptomatic wayne tment with pain medication and nausea medication. Clonidine patch will be ordered for his hypertensi on control and amlodipine one time dose was ordered for hypertension control. We will consult nephro logist. No further testing needs to be done for his back pain as the patient had x-ray of lumbosacra l spine on 01/26/2018 showing [id number] spondylosis. I did call, Dr. Rosenberg to see if it is p ossible for him to do EGD while the patient in the hospital and unfortunately, he is out of town, so EGD will need to be done on an elective outpatient basis for him as Dr. Altamirano has planned. ERNESTO/MODL Voice ID: [id number]
[2018-03-03 17:38] VITALS: BP 134/63; TEMP 98.1
[2018-03-03] MEDS ORDERED: HOME MED 1 EA UNK (Travoprost (Benzalkonium) [Travatan 0.004% Eye Drop] 1 DROP) EACH EYE SCH (21:00)
[2018-03-03] MEDS ORDERED: ATORVASTATIN 80 MG TAB PO SCH (21:00)
--- NOTE | 2018-03-03 23:41 | CON ---
Date of Consultation: 03/03/2018 Chief Complaint: End-stage renal disease on dialysis. History Of Present Illness: The patient has diabetic kidney disease. He has multiple medical proble ms. He presented to the hospital with nausea, vomiting, abdominal pain. He has history of diabetic gastroparesis. He underwent GI workup and had EGD done by Dr. Rosenberg. The patient today is feeling better and is tolerating p.o. intake. He denies abdominal pain. There is no fever, no chills, no he matemesis. For last 3 days, he was not able to keep his medication down, and every time he was tryin g to eat or drink he could not keep the food down and was throwing up. He denies dizziness, vertigo. Denies headache, vision changes. Review of Systems: Constitutional: Denies fever, chills. Eyes: Denies vision changes. Ears, Nose, Mouth, and Throat: Denies sore throat, earache. Respiratory: Denies PND, orthopnea. Cardiovascular: Denies chest pain, palpitation. GI: Denies abdominal pain. Has episode of nausea, vomiting. Denies melena, hematemesis. : Denies dysuria, hematuria. All other systems reviewed and all are negative. Past Medical History: Hypertension, diabetes mellitus type 2, anemia due to chronic kidney disease, diabetic kidney disease, hypertensive kidney disease, end-stage renal disease, gastritis, gastropares is, chronic back pain, renal osteodystrophy, anemia in CKD. Past Surgical History: Eye surgery, AV graft replaced in the right upper extremity. Social History: Denies tobacco, alcohol, or illicit drug. Family History: Throat cancer, tuberculosis, diabetes mellitus, hypertension. Physical Examination: General: The patient is awake, alert, follows commands. Eyes: Anicteric sclerae. EOMI. Ears, Nose, Mouth and Throat: Oral mucosa moist. No pallor. Neck: Supple. No JVD. No bruits. Lungs: Clear to auscultation bilaterally. Heart: S1, S2. Abdomen: Soft, benign. Extremities: Slight edema. Laboratory Data: Hemoglobin is 10.6, platelet count 257,000. Sodium 139, potassium 4.0, chloride 10 4, bicarbonate 27, BUN 25, creatinine 5.9, glucose 119. Impression And Plan: 1.Intractable nausea, vomiting, diabetic gastroparesis. The patient is advancing with p.o. intake. Continue antinausea medication. 2.Continue PPI. 3.Hypertension. Resume blood pressure medication. 4.Anemia of chronic kidney disease. Hemoglobin level satisfactory. Monitor and adjust medication a s needed according to hemoglobin level. 5.Renal osteodystrophy. Resume binders when the patient is on p.o. intake. ESTELA/NESSA Voice ID: [id number] Report ID: [id number]
[2018-03-05 14:14] LABS: HBsAG Nonreactive (Nonreactive)
== END 2018-03-03 17:33 | disposition home or self-care (01) ==
LOC: 2ND 19:22
PROVIDERS: ADMIT Internal Medicine; ATTEND Internal Medicine
PROC: 5A1D70Z Performance of Urinary Filtration, Intermittent, Less than 6 Hours Per Day (ICD-10-PCS; principal; 2018-03-03)
DX: R11.2 Nausea with vomiting, unspecified (principal); E11.43 Type 2 diabetes mellitus with diabetic autonomic (poly)neuropathy; K31.84 Gastroparesis; I12.0 Hypertensive chronic kidney disease with stage 5 chronic kidney disease or end stage renal disease; E11.22 Type 2 diabetes mellitus with diabetic chronic kidney disease; N18.6 End stage renal disease; I25.10 Atherosclerotic heart disease of native coronary artery without angina pectoris; G47.00 Insomnia, unspecified; E78.5 Hyperlipidemia, unspecified; M54.9 Dorsalgia, unspecified; D63.1 Anemia in chronic kidney disease; N25.0 Renal osteodystrophy; Z99.2 Dependence on renal dialysis; Z88.2 Allergy status to sulfonamides
CPT/HCPCS: 36415; 80048; 82962; 85025; 86317; 86704; 86706; 86803; 87340; 90935; G0378; J2270; J2550; Q4081

== ENCOUNTER 2018-03-07 08:01 | Day surgery (SDC) | payer BC, OTHER ==
[2018-03-07] MEDS ORDERED: NA CHLORIDE 0.9% 0 ML ONE (08:16)
[2018-03-07] MEDS ORDERED: NA CHLORIDE 0.9% 500 ML ONE (08:25)
--- OUTSIDE RECORDS SUMMARY | 2018-03-07 08:39 | XMS REPORT | Clinical Summary ---
:1965 Author Organization [facility] Address [address] [place] [address] Care Team Providers Name Role Phone Garo [...] dialysis catheter in place MD Frank after 03/06/2017 Immunizations Name Dates Previously Given Next Due [...] CDT procedure are in the results section. MA AN ELECTIVE Routine 08/25/2017 8:09 ENDOTRACHEAL AIRWAY [...] Routine 07/19/2017 7:48 AM Results for this HISTOLOGIC AIDE procedure are in the results section. POC GLUCOSE Routine 07/18/2017 8:52 PM Results for this HISTOLOGIC AIDE procedure are in the results section. NM GASTRIC EMPTYING Routine 07/18/2017 5:06 PM Results for this HISTOLOGIC AIDE procedure are in the results section. POC GLUCOSE Routine 07/18/2017 4:15 PM Results for this HISTOLOGIC AIDE procedure are in the results section. CELL COUNT AND Routine 07/18/2017 10:00 AM Results for this DIFFERENTIAL, BODY FLUID HISTOLOGIC AIDE procedure are in the results section. FUNGUS SMEAR Routine 07/18/2017 10:00 AM Results for this HISTOLOGIC AIDE procedure are in the results section. GRAM STAIN Routine 07/18/2017 10:00 AM Results for this HISTOLOGIC AIDE procedure are in the results section. FUNGUS CULTURE Routine 07/18/2017 10:00 AM Results for this HISTOLOGIC AIDE procedure are in the results section. ANAEROBIC CULTURE Routine 07/18/2017 10:00 AM Results for this HISTOLOGIC AIDE procedure are in the results section. AEROBIC CULTURE Routine 07/18/2017 10:00 AM Results for this HISTOLOGIC AIDE procedure are in the results section. CT ABDOMEN PELVIS WO Routine 07/18/2017 9:02 AM Results for this CONTRAST HISTOLOGIC AIDE procedure are in the results section. LACTIC ACID LEVEL, Timed 07/18/2017 4:11 AM Results for this SEPSIS - NOW AND REPEAT HISTOLOGIC AIDE procedure are in 2X EVERY 3 HOURS the results section. LACTIC ACID LEVEL, Timed 07/17/2017 8:30 PM Results for this SEPSIS - NOW AND REPEAT HISTOLOGIC AIDE procedure are in 2X EVERY 3 HOURS the results section. ZZESTIMATED GFR STAT 07/17/2017 4:55 PM Results for this HISTOLOGIC AIDE procedure are in the results section. LIPASE LEVEL STAT 07/17/2017 4:55 PM Results for this HISTOLOGIC AIDE procedure are in the results section. COMPREHENSIVE METABOLIC STAT 07/17/2017 4:55 PM Results for this PANEL HISTOLOGIC AIDE procedure are in the results section. LACTIC ACID LEVEL, STAT 07/17/2017 4:55 PM Results for this SEPSIS - NOW AND REPEAT HISTOLOGIC AIDE procedure are in 2X EVERY 3 HOURS the results section. HC COMPLETE BLD COUNT STAT 07/17/2017 4:55 PM Results for this W/AUTO DIFF HISTOLOGIC AIDE procedure are in the results section. BLOOD CULTURE, AEROBIC & Routine 07/17/2017 4:55 PM Results for this ANAEROBIC HISTOLOGIC AIDE procedure are in the results section. BLOOD CULTURE, AEROBIC & Routine 07/17/2017 4:50 PM Results for this ANAEROBIC HISTOLOGIC AIDE procedure are in the results section. after 03/06/2017 Results POC glucose (08/25/2017 8:40 AM)Only the most recent of4 resultswithin the time period is included. 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[employer] Production: Boogie Blackburn Performing Organization Address City/State/Zipcode Phone Number [facility] DEPARTMENT OF PATHOLOGY [address] [place] [address] AND GENOMIC MEDICINE POC panel 4 (08/25/2017 6:59 AM) POC sodium 138 135 - 148 meq/L [facility] DEPARTMENT OF PATHOLOGY AND GENOMIC MEDICINE POC potassium 3.7 3.5 - 5.0 meq/L [facility] DEPARTMENT OF PATHOLOGY AND GENOMIC MEDICINE POC hematocrit 36 (L) 41 - 51 % [facility] DEPARTMENT OF PATHOLOGY AND GENOMIC MEDICINE POC glucose 155 (H) 65 - 99 mg/dL [facility] DEPARTMENT OF PATHOLOGY AND GENOMIC MEDICINE POC hemoglobin 12.2 (L) 14.0 - 18.0 g/dL [facility] DEPARTMENT OF PATHOLOGY AND GENOMIC MEDICINE Specimen Blood Performing Organization Address City/[facility] Phone Number [facility] DEPARTMENT OF PATHOLOGY [id number] [place] [address] [employer] [facility] Estimated GFR (08/25/2017 6:47 AM)Only the most recent of2 resultswithin the time period is included. GFR Non Af Amer 18 (A) mL/min/1.73 m2 [facility] DEPARTMENT OF PATHOLOGY AND [employer] MEDICINE GFR Af Amer 22 (A) mL/min/1.73 m2 [facility] DEPARTMENT OF Comment: PATHOLOGY AND [employer] Chronic kidney disease: <60 mL/min/1.73m2 MEDICINE Kidney [...] Americans. Specimen Plasma specimen Performing Organization Address City/[facility] Phone Number [facility] DEPARTMENT OF PATHOLOGY [address] [place] [address] [employer] [facility] Basic metabolic panel (08/25/2017 6:47 AM) Sodium 138 135 - 148 mEq/L [facility] DEPARTMENT OF PATHOLOGY AND GENOMIC MEDICINE Potassium 3.9 3.5 - 5.0 mEq/L [facility] DEPARTMENT OF PATHOLOGY AND GENOMIC MEDICINE Chloride 100 98 - 112 mEq/L [facility] DEPARTMENT OF PATHOLOGY AND GENOMIC MEDICINE CO2 26 24 - 31 mEq/L [facility] DEPARTMENT OF PATHOLOGY AND GENOMIC MEDICINE Anion gap 12 7 - 15 mEq/L [facility] DEPARTMENT OF Comment: PATHOLOGY AND GENOMIC Starting from September , anion gap calculation MEDICINE no longer incorporates potassium. Please note the change. BUN 29 (H) 6 - 20 mg/dL [facility] DEPARTMENT OF PATHOLOGY AND GENOMIC MEDICINE Creatinine 3.6 (H) 0.7 - 1.2 mg/dL [facility] DEPARTMENT OF PATHOLOGY AND GENOMIC MEDICINE Glucose 159 (H) 65 - 99 mg/dL [facility] DEPARTMENT OF PATHOLOGY AND GENOMIC MEDICINE Calcium 9.2 8.3 - 10.2 mg/dL [facility] DEPARTMENT OF PATHOLOGY AND GENOMIC MEDICINE Specimen Plasma specimen Performing Organization Address City/State/Zipcode Phone Number [facility] DEPARTMENT OF PATHOLOGY [address] [facility] [place] [address] AND GENOMIC MEDICINE CBC with platelet and differential (08/23/2017 12:26 PM)Only the most recent of2 resultswithin the time period is included. WBC 6.9 4.5 - 11.0 k/uL [facility] DEPARTMENT OF PATHOLOGY AND GENOMIC MEDICINE RBC 3.16 (L) 4.40 - 6.00 m/uL [facility] DEPARTMENT OF PATHOLOGY AND GENOMIC MEDICINE HGB 8.6 (L) 14.0 - 18.0 g/dL [facility] DEPARTMENT OF PATHOLOGY AND GENOMIC MEDICINE HCT 27.4 (L) 41.0 - 51.0 % [facility] DEPARTMENT OF PATHOLOGY AND GENOMIC MEDICINE MCV 86.7 82.0 - 100.0 fL [facility] DEPARTMENT OF PATHOLOGY AND GENOMIC MEDICINE MCH 27.2 27.0 - 34.0 pg [facility] DEPARTMENT OF PATHOLOGY AND GENOMIC MEDICINE MCHC 31.4 31.0 - 37.0 g/dL [facility] DEPARTMENT OF PATHOLOGY AND GENOMIC MEDICINE RDW - SD 52.3 37.0 - 55.0 fL [facility] DEPARTMENT OF PATHOLOGY AND GENOMIC MEDICINE MPV 9.1 6.9 - 11.0 fL [facility] DEPARTMENT OF PATHOLOGY AND GENOMIC MEDICINE Platelet count 273 150 - 400 K/uL [facility] DEPARTMENT OF PATHOLOGY AND GENOMIC MEDICINE Nucleated RBC 0.00 /100 WBC [facility] DEPARTMENT OF PATHOLOGY AND GENOMIC MEDICINE Neutrophils 63.7 39.0 - 69.0 % [facility] DEPARTMENT OF PATHOLOGY AND GENOMIC MEDICINE Lymphocytes 18.6 (L) 25.0 - 45.0 % [facility] DEPARTMENT OF PATHOLOGY AND GENOMIC MEDICINE Monocytes 12.3 (H) 0.0 - 10.0 % [facility] DEPARTMENT OF PATHOLOGY AND GENOMIC MEDICINE Eosinophils 4.0 0.0 - 5.0 % [facility] DEPARTMENT OF PATHOLOGY AND GENOMIC MEDICINE Basophils 0.7 0.0 - 1.0 % [facility] DEPARTMENT OF PATHOLOGY AND GENOMIC MEDICINE Immature granulocytes 0.7 0.0 - 1.0 % [facility] DEPARTMENT OF PATHOLOGY AND GENOMIC MEDICINE Specimen Blood Performing Organization Address [facility] Center[facility] Phone Number [facility] DEPARTMENT OF PATHOLOGY [address] [address] AND GENOMIC MEDICINE ECG Pre/Post Op (08/23/2017 11:23 AM) Ventricular rate 54 [facility] Atrial rate 54 [facility] MA interval 176 [facility] QRSD interval 88 [facility] QT interval 492 [facility] QTC interval 466 [facility] P axis 1 5 [facility] QRS axis 1 10 [facility] T wave axis 140 [facility] EKG impression Sinus bradycardia-T wave abnormality, [facility] consider lateral ischemia-Prolonged QT-Abnormal ECG-No previous ECGs available- Performing Organization Address [facility] Phone Number [facility] [address] [place] [address] NM Gastric Emptying (07/18/2017 5:06 PM) Narrative Performed At Procedure:NM GASTRIC EMPTYING [facility] Clinical History:ABDOMINAL PAIN Technique 0.8 millicuries of [id number] colloid were mixed with an egg and cooked. The egg was fed to the patient and dynamic imaging of the abdomen in the anterior and posterior projections was performed for 90 minutes. Quantification of gastric emptying was performed using the geometric mean of the anterior and posterior projections. FINDINGS: Gastric emptying half time=53 minutes (normal is <100 minutes). IMPRESSION: Normal gastric emptying. [facility]-[id number] Procedure Note Interface, Radiology Results Incoming - 07/18/2017 5:20 PM HISTOLOGIC AIDE Procedure: NM GASTRIC EMPTYING Clinical History: ABDOMINAL PAIN Technique 0.8 millicuries of [id number] colloid were mixed with an egg and cooked. The egg was fed to the patient and dynamic imaging of the abdomen in the anterior and posterior projections was performed for 90 minutes. Quantification of gastric emptying was performed using the geometric mean of the anterior and posterior projections. FINDINGS: Gastric emptying half time=53 minutes (normal is <100 minutes). IMPRESSION: Normal gastric emptying. [facility]-[id number] Performing Organization Address [facility] Center[facility] Phone Number [facility] [address] [place] [address] Fungus smear (07/18/2017 10:00 AM) Fungus smear No fungi observed. [facility] DEPARTMENT OF PATHOLOGY Comment: AND GENOMIC MEDICINE Specimen Information Specimen Source: Peritoneal fluid Specimen Site: Peritoneal Specimen Peritoneal fluid - Peritoneal Performing Organization Address City/[facility] Cent[facility]ode Phone Number [facility] DEPARTMENT OF PATHOLOGY AND [address] [place] [phone] GENOMIC MEDICINE Aerobic culture (07/18/2017 10:00 AM) Aerobic culture isolate No growth after 3 days. [facility] DEPARTMENT OF Comment: PATHOLOGY AND GENOMIC Specimen Information MEDICINE Specimen Source: Peritoneal fluid Specimen Site: Peritoneal Specimen Peritoneal fluid - Peritoneal Performing Organization Address City/[facility] Cent[facility]ode Phone Number [facility] DEPARTMENT OF PATHOLOGY AND [address] [place] [phone] [facility] MEDICINE Gram stain (07/18/2017 10:00 AM) Gram stain isolate Rare WBC's [facility] DEPARTMENT OF PATHOLOGY No organisms seen AND GENOMIC MEDICINE Comment: Specimen Information Specimen Source: Peritoneal fluid Specimen Site: Peritoneal Specimen Peritoneal fluid - Peritoneal Performing Organization Address [facility] Centercode Phone Number [facility] DEPARTMENT OF PATHOLOGY AND [address] [place] [phone] GENOMIC [facility] Fungus culture (07/18/2017 10:00 AM) Fungus culture isolate No growth after 4 weeks of incubation. [facility] DEPARTMENT OF Comment: PATHOLOGY AND GENOMIC Specimen Information MEDICINE Specimen Source: Peritoneal fluid Specimen Site: Peritoneal Specimen Peritoneal fluid - Peritoneal Performing Organization Address City/[facility] Cent[facility]ode Phone Number [facility] DEPARTMENT OF PATHOLOGY AND [address] [place] [phone] GENOMIC MEDICINE Anaerobic culture (07/18/2017 10:00 AM) Anaerobic culture No anaerobic organisms isolated. [facility] DEPARTMENT OF isolate Comment: PATHOLOGY AND GENOMIC Specimen Information MEDICINE Specimen Source: Peritoneal fluid Specimen Site: Peritoneal Specimen Peritoneal fluid - Peritoneal Performing Organization Address City/[facility]/Zipcode Phone Number [facility] DEPARTMENT OF PATHOLOGY AND [address] [place] [phone] [employer] MEDICINE Cell count and differential, body fluid (07/18/2017 10:00 AM) [facility] fluid type PD fluid [facility] DEPARTMENT OF PATHOLOGY AND GENOMIC MEDICINE Color, fluid Colorless [facility] DEPARTMENT OF PATHOLOGY AND GENOMIC MEDICINE Appearance, fluid Clear [facility] DEPARTMENT OF PATHOLOGY AND GENOMIC MEDICINE RBC, fluid SEE COMMENTComment: 1+ (0 - /CMM [facility] DEPARTMENT OF 500 RBC/CMM) PATHOLOGY AND GENOMIC MEDICINE Nucleated cells, fluid 29 /CMM [facility] DEPARTMENT OF PATHOLOGY AND GENOMIC MEDICINE Fluid mononuclear cell SEE COMMENT [facility] DEPARTMENT OF Comment: PATHOLOGY AND GENOMIC Footnote--------- MEDICINE Unable to perform differential due to very low count. Specimen Fluid Performing Organization Address City/State/Zipcode Phone Number [facility] DEPARTMENT OF PATHOLOGY [address] [place] [address] Abdomen Pelvis Wo [...] renal calyceal stones are present without hydronephrosis. [id number] Procedure Note Interface, Radiology Results Incoming - 07/18/2017 9:14 AM HISTOLOGIC AIDE EXAMINATION: CT ABDOMEN PELVIS WO CONTRAST CLINICAL [...] renal calyceal stones are present without hydronephrosis. [id number] Performing Organization Address [facility] Centercode Phone Number [facility] [address] [place] [phone] Lactic acid level, SEPSIS - Now and repeat 2x every 3 hours (07/18/2017 4:11 AM )Only the most recent of3 resultswithin the time period is included. Lactic acid 0.6 0.5 - 2.2 mmol/L [facility] DEPARTMENT OF PATHOLOGY AND GENOMIC MEDICINE Specimen Plasma specimen Performing Organization Address [facility] Phone Number [facility] DEPARTMENT OF PATHOLOGY [address] [place] [address]. [place] [address] AND [facility] Blood culture, aerobic & anaerobic (07/17/2017 4:55 PM)Only the most recent of2 resultswithin the time period is included. Blood culture isolate No growth after 5 days of incubation. [facility] DEPARTMENT OF Comment: PATHOLOGY AND GENOMIC Specimen Information MEDICINE Specimen Source: Blood Specimen Site: Hand, right Specimen Blood - Hand, right Performing Organization Address [facility]/Zipcode Phone Number [facility] DEPARTMENT OF PATHOLOGY AND [address] [place] [phone] [facility] MEDICINE Lipase level (07/17/2017 4:55 PM) Lipase 48 13 - 60 U/L [facility] DEPARTMENT OF PATHOLOGY AND GENOMIC MEDICINE Specimen Plasma specimen Performing Organization Address [facility]/Zipcode Phone Number [facility] DEPARTMENT OF PATHOLOGY [address] [place] [address] AND [employer] [facility] Comprehensive metabolic panel (07/17/2017 4:55 PM) Sodium 134 (L) 135 - 148 mEq/L [facility] DEPARTMENT OF PATHOLOGY AND GENOMIC MEDICINE Potassium 4.6 3.5 - 5.0 mEq/L [facility] DEPARTMENT OF PATHOLOGY AND GENOMIC MEDICINE Chloride 96 (L) 98 - 112 mEq/L [facility] DEPARTMENT OF PATHOLOGY AND GENOMIC MEDICINE CO2 25 24 - 31 mEq/L [facility] DEPARTMENT OF PATHOLOGY AND GENOMIC MEDICINE Anion gap 13 7 - 15 mEq/L [facility] DEPARTMENT OF Comment: PATHOLOGY AND GENOMIC Starting from September , anion gap calculation MEDICINE no longer incorporates potassium. Please note the change. BUN 22 (H) 6 - 20 mg/dL [facility] DEPARTMENT OF PATHOLOGY AND GENOMIC MEDICINE Creatinine 3.8 (H) 0.7 - 1.2 mg/dL [facility] DEPARTMENT OF PATHOLOGY AND GENOMIC MEDICINE Glucose 138 (H) 65 - 99 mg/dL [facility] DEPARTMENT OF PATHOLOGY AND GENOMIC MEDICINE Calcium 8.7 8.3 - 10.2 mg/dL [facility] DEPARTMENT OF PATHOLOGY AND GENOMIC MEDICINE Protein 6.8 6.3 - 8.3 g/dL [facility] DEPARTMENT OF PATHOLOGY AND GENOMIC MEDICINE Albumin 2.8 (L) 3.5 - 5.0 g/dL [facility] DEPARTMENT OF PATHOLOGY AND GENOMIC MEDICINE A/G ratio 0.7 0.7 - 3.8 [facility] DEPARTMENT OF PATHOLOGY AND GENOMIC MEDICINE Alkaline phosphatase 69 40 - 129 U/L [facility] DEPARTMENT OF PATHOLOGY AND GENOMIC MEDICINE AST 20 10 - 50 U/L [facility] DEPARTMENT OF PATHOLOGY AND GENOMIC MEDICINE ALT 6 5 - 50 U/L [facility] DEPARTMENT OF PATHOLOGY AND GENOMIC MEDICINE Total bilirubin <0.2 0.2 - 1.2 mg/dL [facility] DEPARTMENT OF PATHOLOGY AND GENOMIC MEDICINE Specimen Plasma specimen Performing Organization Address City/State/Zipcode Phone Number [facility] DEPARTMENT OF PATHOLOGY [address] [place] [address] AND GENOMIC MEDICINE after 03/06/2017 Insurance Payer Benefit Plan / Group Subscriber ID Type Phone Address SILVIA [place] xxxxxxxxxxxx PPO MEDICARE MEDICARE PART A AND B xxxxxxxxxx Medicare [place], [place] [phone] [place], [place] [address] [phone]
--- OUTSIDE RECORDS SUMMARY | 2018-03-07 08:40 | XMS REPORT ---
:1965 Author Organization [facility] Address [address] [place] [address] [address] [place] [address] Care Team Providers Name Role Phone DWIGHT [...] (BEAKER) (test 243 mg/dL 70-110 TESTED AT [facility] [address] [place] [address] ztec=3513) [address] [facility] [address] BASIC METABOLIC [id number] 13:51:00 Test Item Value Reference Range Comments SODIUM (BEAKER) (test 139 meq/L 135-148 uetl=531) POTASSIUM (BEAKER) (test 3.4 meq/L 3.6-5.5 czgz=565) CHLORIDE (BEAKER) (test 101 meq/L 98-106 kdks=656) CO2 (BEAKER) (test 29 meq/L 20-29 iueq=778) BLOOD UREA NITROGEN 11 mg/dL 10-26 (BEAKER) (test chux=636) CREATININE (BEAKER) (test 2.10 mg/dL 0.50-1.20 pyrh=566) GLUCOSE RANDOM (BEAKER) 157 mg/dL 70-110 (test nbug=284) CALCIUM (BEAKER) (test 8.6 mg/dL 8.5-10.5 tonc=636) EGFR (BEAKER) (test 33 mL/min/1.73 sq m ESTIMATED GFR IS NOT qbto=1342) ACCURATE CREATININE CLEARANCE IN PREDICTING GLOMERULAR FILTRATION RATE. ESTIMATED GFR IS NOT APPLICABLE FOR DIALYSIS PATIENTS. [id number] 13:44:00 Test Item Value Reference Range Comments MAGNESIUM (BEAKER) (test exdu=885) 1.9 mg/dL 1.5-3.0 CBC W/PLT COUNT & AUTO [id number] 13:34:00 Test Item Value Reference Range Comments WHITE BLOOD CELL COUNT (BEAKER) (test vscd=955) 6.8 K/ L 4.0-10.0 RED BLOOD CELL COUNT (BEAKER) (test gbbj=529) 2.92 M/ L 4.20-5.80 HEMOGLOBIN (BEAKER) (test fseu=344) 8.4 GM/DL 13.0-16.8 HEMATOCRIT (BEAKER) (test fosi=181) 25.5 % 40.0-50.0 MEAN CORPUSCULAR VOLUME (BEAKER) (test xbua=509) 87.4 fL 82.0-98.0 MEAN CORPUSCULAR HEMOGLOBIN (BEAKER) (test 28.7 pg 27.0-33.0 pvbh=735) MEAN CORPUSCULAR HEMOGLOBIN CONC (BEAKER) (test 32.8 GM/DL 32.0-36.0 hbpc=641) RED CELL DISTRIBUTION WIDTH (BEAKER) (test 14.7 % 10.3-14.2 gtdy=094) PLATELET COUNT (BEAKER) (test wmja=368) 299 K/CU MM 150-430 MEAN PLATELET VOLUME (BEAKER) (test idjv=846) 6.9 fL 6.5-10.5 NUCLEATED RED BLOOD CELLS (BEAKER) (test 0 /100 WBC 0-0 cppy=903) NEUTROPHILS RELATIVE PERCENT (BEAKER) (test 65 % nzhs=345) LYMPHOCYTES RELATIVE PERCENT (BEAKER) (test 18 % hkkn=869) MONOCYTES RELATIVE PERCENT (BEAKER) (test 14 % hbgc=165) EOSINOPHILS RELATIVE PERCENT (BEAKER) (test 3 % mmjm=879) BASOPHILS RELATIVE PERCENT (BEAKER) (test 1 % qxor=525) NEUTROPHILS ABSOLUTE COUNT (BEAKER) (test 4.40 K/ L 1.80-8.00 xdoa=589) LYMPHOCYTES ABSOLUTE COUNT (BEAKER) (test 1.20 K/ L 1.48-4.50 rllx=452) MONOCYTES ABSOLUTE COUNT (BEAKER) (test 1.00 K/ L 0.00-1.30 uxhr=959) EOSINOPHILS ABSOLUTE COUNT (BEAKER) (test 0.20 K/ L 0.00-0.50 kbna=384) BASOPHILS ABSOLUTE COUNT (BEAKER) (test 0.00 K/ L 0.00-0.20 xuhh=301) POCT-GLUCOSE [id number] 11:28:00 Test Item Value Reference Range Comments POC-GLUCOSE METER (BEAKER) 147 mg/dL 70-110 TESTED AT [address] (test gbic=2930) [facility] [address] POCT-GLUCOSE [id number] 06:04:00 Test Item Value Reference Range Comments POC-GLUCOSE METER (BEAKER) 137 mg/dL 70-110 TESTED AT [address] (test dmub=3821) [place] [address]68 POCT-GLUCOSE [id number] 21:01:00 Test Item Value Reference Range Comments POC-GLUCOSE METER (BEAKER) 138 mg/dL 70-110 TESTED AT [address] (test wppd=2959) [place] [address]68 POCT-GLUCOSE [id number] 16:06:00 Test Item Value Reference Range Comments POC-GLUCOSE METER (BEAKER) 167 mg/dL 70-110 TESTED AT [address] (test sskf=0937) [place] [address] POCT-GLUCOSE [id number] 12:49:00 Test Item Value Reference Range Comments POC-GLUCOSE METER (BEAKER) 144 mg/dL 70-110 TESTED AT [address] (test sjeq=2807) [place] [address] [id number] 10:27:00 Test Item Value Reference Range Comments POC-CREATININE (BEAKER) 3.6 mg/dL 0.6-1.3 TESTED AT [address] (test tgkp=6343) [place] [address] POC-EGFR (BEAKER) (test 18 mL/min/1.73M2 sdax=4073) [id number] 10:27:00 Test Item Value Reference Range Comments POC-SODIUM (BEAKER) (test 138 meq/L 135-148 TESTED AT [address] dedg=9726) [place] [address] [id number] 10:27:00 Test Item Value Reference Range Comments POC-POTASSIUM (BEAKER) 3.6 meq/L 3.6-5.5 TESTED AT [address] (test pods=7550) [place] [address]68 [id number] 10:27:00 Test Item Value Reference Range Comments POC-BUN (BEAKER) (test 20 mg/dL 7-21 TESTED AT [address] riwo=0912) [place] [address] [id number] 10:27:00 Test Item Value Reference Range Comments POC-CHLORIDE (BEAKER) (test 97 meq/L 98-107 TESTED AT [address] zhqv=1047) [place] [address] [id number] 10:27:00 Test Item Value Reference Range Comments POC-GLUCOSE (BEAKER) (test 123 mg/dL 70-110 TESTED AT [address] dxnn=8548) [place] [address] [id number] 10:27:00 Test Item Value Reference Range Comments POC-HEMATOCRIT (BEAKER) (test 24 % 40-50 TESTED AT [address] tnhh=5125) [place] [address] [id number] 10:27:00 Test Item Value Reference Range Comments POC-HEMOGLOBIN (BEAKER) 8.2 g/dL 13.0-16.8 TESTED AT [address] (test opmr=0848) [place] [address] [id number] 10:27:00 Test Item Value Reference Range Comments POC-TCO2 (BEAKER) (test 30 meq/L 22-29 TESTED AT [address] hamb=9792) [place] [address] POCT-GLUCOSE [id number] 06:08:00 Test Item Value Reference Range Comments POC-GLUCOSE METER (BEAKER) 163 mg/dL 70-110 TESTED AT [address] (test mlbi=2311) [place] [address] POCT-GLUCOSE [id number] 21:07:00 Test Item Value Reference Range Comments POC-GLUCOSE METER (BEAKER) 132 mg/dL 70-110 TESTED AT [facility] [address] [place] [address] (test capu=4745) [facility] [address] POCT-GLUCOSE [id number] 12:58:00 Test Item Value Reference Range Comments POC-GLUCOSE METER (BEAKER) 178 mg/dL 70-110 TESTED AT [facility] [address] [place] [address] (test jhox=0556) [facility] [address] POCT-GLUCOSE [id number] 05:29:00 Test Item Value Reference Range Comments POC-GLUCOSE METER (BEAKER) 171 mg/dL 70-110 TESTED AT [address] (test rmiu=1063) [facility] [address] POCT-GLUCOSE [id number] 22:03:00 Test Item Value Reference Range Comments POC-GLUCOSE METER (BEAKER) 249 mg/dL 70-110 TESTED AT [address] (test nlmp=2206) [facility] [address] POCT-GLUCOSE [id number] 16:45:00 Test Item Value Reference Range Comments POC-GLUCOSE METER (BEAKER) 213 mg/dL 70-110 TESTED AT [address] (test zgjb=1918) [facility] [address] [id number] 16:43:00 Test Item Value Reference Range Comments THYROID STIMULATING HORMONE (BEAKER) (test 2.09 uIU/mL 0.35-5.50 unot=976) COMPREHENSIVE METABOLIC [id number] 16:24:00 Test Item Value Reference Range Comments TOTAL PROTEIN (BEAKER) 7.2 gm/dL 6.0-8.5 (test qipz=243) ALBUMIN (BEAKER) (test 3.5 g/dL 3.5-5.0 kkmi=9518) ALKALINE PHOSPHATASE 67 U/L 30-115 (BEAKER) (test wmse=701) BILIRUBIN TOTAL (BEAKER) 0.3 mg/dL 0.1-1.2 (test kxsc=361) SODIUM (BEAKER) (test 136 meq/L 135-148 sqab=073) POTASSIUM (BEAKER) (test 4.1 meq/L 3.6-5.5 aaxv=641) CHLORIDE (BEAKER) (test 98 meq/L 98-106 snjo=729) CO2 (BEAKER) (test 26 meq/L 20-29 kmvm=552) BLOOD UREA NITROGEN 32 mg/dL 10-26 (BEAKER) (test fbhw=767) CREATININE (BEAKER) (test 4.40 mg/dL 0.50-1.20 dtgx=770) GLUCOSE RANDOM (BEAKER) 212 mg/dL 70-110 (test vxyu=578) CALCIUM (BEAKER) (test 9.0 mg/dL 8.5-10.5 wiyf=145) AST (SGOT) (BEAKER) (test 14 U/L 5-40 hpbb=160) ALT (SGPT) (BEAKER) (test 4 U/L 5-50 nsov=005) EGFR (BEAKER) (test 14 mL/min/1.73 sq m ESTIMATED GFR IS NOT cxct=9229) ACCURATE CREATININE CLEARANCE IN PREDICTING GLOMERULAR FILTRATION RATE. ESTIMATED GFR IS NOT APPLICABLE FOR DIALYSIS PATIENTS. CBC W/PLT COUNT & AUTO [id number] 16:02:00 Test Item Value Reference Range Comments WHITE BLOOD CELL COUNT (BEAKER) (test urpd=435) 6.9 K/ L 4.0-10.0 RED BLOOD CELL COUNT (BEAKER) (test esfo=166) 2.95 M/ L 4.20-5.80 HEMOGLOBIN (BEAKER) (test smns=465) 8.6 GM/DL 13.0-16.8 HEMATOCRIT (BEAKER) (test whpv=263) 25.9 % 40.0-50.0 MEAN CORPUSCULAR VOLUME (BEAKER) (test nyya=244) 87.9 fL 82.0-98.0 MEAN CORPUSCULAR HEMOGLOBIN (BEAKER) (test 29.0 pg 27.0-33.0 jzjc=178) MEAN CORPUSCULAR HEMOGLOBIN CONC (BEAKER) (test 33.0 GM/DL 32.0-36.0 vlws=462) RED CELL DISTRIBUTION WIDTH (BEAKER) (test 15.0 % 10.3-14.2 nabk=123) PLATELET COUNT (BEAKER) (test pdfi=123) 330 K/CU MM 150-430 MEAN PLATELET VOLUME (BEAKER) (test bmmu=175) 7.1 fL 6.5-10.5 NUCLEATED RED BLOOD CELLS (BEAKER) (test 0 /100 WBC 0-0 snmg=141) NEUTROPHILS RELATIVE PERCENT (BEAKER) (test 66 % puvy=750) LYMPHOCYTES RELATIVE PERCENT (BEAKER) (test 16 % xmaj=241) MONOCYTES RELATIVE PERCENT (BEAKER) (test 12 % ykyc=203) EOSINOPHILS RELATIVE PERCENT (BEAKER) (test 5 % qrrr=152) BASOPHILS RELATIVE PERCENT (BEAKER) (test 1 % mzkw=402) NEUTROPHILS ABSOLUTE COUNT (BEAKER) (test 4.60 K/ L 1.80-8.00 mmyw=133) LYMPHOCYTES ABSOLUTE COUNT (BEAKER) (test 1.10 K/ L 1.48-4.50 snfe=788) MONOCYTES ABSOLUTE COUNT (BEAKER) (test 0.80 K/ L 0.00-1.30 ggsp=204) EOSINOPHILS ABSOLUTE COUNT (BEAKER) (test 0.30 K/ L 0.00-0.50 cidd=457) BASOPHILS ABSOLUTE COUNT (BEAKER) (test 0.10 K/ L 0.00-0.20 uadv=024) PROTHROMBIN [id number] 16:01:00 Test Item Value Reference Range Comments PROTIME (BEAKER) (test gdmp=563) 10.3 seconds 9.3-12.0 INR (BEAKER) (test rgyy=259) 1.0 <=5.9 RECOMMENDED COUMADIN/WARFARIN INR THERAPY RANGESSTANDARD DOSE: 2.0 - 3.0 Includes: PROPHYLAXIS forvenous thrombosis, systemic embolization; TREATMENT for venous thrombosis and/or pulmonary embolus.HIGH RISK: Target INR is 2.5-3.5 for patients with mechanical heart valves.POCT-GLUCOSE [id number] 12:01:00 Test Item Value Reference Range Comments POC-GLUCOSE METER (BEAKER) 211 mg/dL 70-110 TESTED AT [address] (test wipc=1039) [facility] [address] POCT-GLUCOSE [id number] 06:08:00 Test Item Value Reference Range Comments POC-GLUCOSE METER (BEAKER) 191 mg/dL 70-110 TESTED AT [address] (test uxbq=6206) [facility] [address] POCT-GLUCOSE [id number] 21:28:00 Test Item Value Reference Range Comments POC-GLUCOSE METER (BEAKER) 233 mg/dL 70-110 TESTED AT [address] (test cpds=7138) [facility] [address] POCT-GLUCOSE [id number] 16:19:00 Test Item Value Reference Range Comments POC-GLUCOSE METER (BEAKER) 290 mg/dL 70-110 TESTED AT [address] (test fupj=1933) [facility] [address] POCT-GLUCOSE [id number] 13:33:00 Test Item Value Reference Range Comments POC-GLUCOSE METER (BEAKER) 186 mg/dL 70-110 TESTED AT [address] (test dxed=8599) [facility] [address] POCT-GLUCOSE [id number] 06:27:00 Test Item Value Reference Range Comments POC-GLUCOSE METER (BEAKER) 204 mg/dL 70-110 TESTED AT [address] (test pdjq=0850) [facility] [address] POCT-GLUCOSE [id number] 21:40:00 Test Item Value Reference Range Comments POC-GLUCOSE METER (BEAKER) 267 mg/dL 70-110 TESTED AT [address] (test tqpc=0262) [facility] [address] POCT-GLUCOSE [id number] 17:32:00 Test Item Value Reference Range Comments POC-GLUCOSE METER (BEAKER) 221 mg/dL 70-110 TESTED AT [address] (test xqzz=7793) [facility] [address] HEPATITIS B SURFACE [id number] 14:21:00 Test Item Value Reference Range Comments HEPATITIS B SURFACE ANTIBODY (BEAKER) (test < mIU/mL <8.0 slse=199) HEPATITIS B CORE ANTIBODY, [id number] 14:15:00 Test Item Value Reference Range Comments HEPATITIS B CORE TOTAL ANTIBODY (BEAKER) (test Nonreactive Nonreactive nszc=878) POCT-GLUCOSE [id number] 12:18:00 Test Item Value Reference Range Comments POC-GLUCOSE METER (BEAKER) 193 mg/dL 70-110 TESTED AT [address] (test jgxh=4507) [facility] [address] RAD, CHEST, 1 VIEW, NON [id number] 08:49:00Reason for exam:->for outpatient HD placementShould this [...] MDReport Verified Date/Time: 06/10/2017 08:49:42 Reading Location: [facility] Radiology Reading Room Electronically signed by: SACHI HAMMER on 2016 08:49 AMPOCT-GLUCOSE [id number] 06:53:00 Test Item Value Reference Range Comments POC-GLUCOSE METER (BEAKER) 177 mg/dL 70-110 TESTED AT [address] (test skoz=7667) [facility] [address] POCT-GLUCOSE [id number] 22:10:00 Test Item Value Reference Range Comments POC-GLUCOSE METER (BEAKER) 109 mg/dL 70-110 TESTED AT [address] (test qbwu=1017) [facility] [address] HEPATITIS B SURFACE [id number] 20:18:00 Test Item Value Reference Range Comments HEPATITIS B SURFACE ANTIGEN (2) (BEAKER) (test Nonreactive Nonreactive awev=0456) POCT-GLUCOSE [id number] 17:08:00 Test Item Value Reference Range Comments POC-GLUCOSE METER (BEAKER) 223 mg/dL 70-110 TESTED AT [address] (test nfgj=3292) [facility] [address] POCT-GLUCOSE [id number] 12:47:00 Test Item Value Reference Range Comments POC-GLUCOSE METER (BEAKER) 200 mg/dL 70-110 TESTED AT [address] (test uqzf=2945) [facility] [address] ANG, TUNNELED CATHETER [id number] 12:13:00Reason for exam:->renal failureFINAL REPORT Tunneled central [...] the patient's medical record by the nurse. Lead Slot Technician: Onesimo Lopez MD. Jalousie Installer: None. Approach: Right internal jugular vein Estimated [...] needle into the right atrium. A 4 Icelandic micropuncture sheath was placed. A subcutaneous tunnel was created in the right anterior chest wall by blunt dissection. A 19 cm tipped cuff 15.5 Icelandic Duraflow 2 catheter was brought through the [...] Lopezort Verified Date/Time: 06/09/2017 12:13:36 Reading Location: [facility] Radiology Reading Room 12 :13 PMPOCT-GLUCOSE [id number] 06:03:00 Test Item Value Reference Range Comments POC-GLUCOSE METER (BEAKER) 208 mg/dL 70-110 TESTED AT [facility] [address] [facility] (test sweo=2044) [address] [facility] [address] BASIC METABOLIC [id number] 06:00:00 Test Item Value Reference Range Comments SODIUM (BEAKER) (test 139 meq/L 135-148 inhy=415) POTASSIUM (BEAKER) (test 3.5 meq/L 3.6-5.5 vyxj=054) CHLORIDE (BEAKER) (test 103 meq/L 98-106 jtmh=300) CO2 (BEAKER) (test 26 meq/L 20-29 ptnj=460) BLOOD UREA NITROGEN 62 mg/dL 10-26 (BEAKER) (test opcd=905) CREATININE (BEAKER) (test 5.10 mg/dL 0.50-1.20 tcbr=721) GLUCOSE RANDOM (BEAKER) 191 mg/dL 70-110 (test dbuq=023) CALCIUM (BEAKER) (test 9.0 mg/dL 8.5-10.5 zufw=481) EGFR (BEAKER) (test 12 mL/min/1.73 sq m ESTIMATED GFR IS NOT unos=7461) ACCURATE CREATININE CLEARANCE IN PREDICTING GLOMERULAR FILTRATION RATE. ESTIMATED GFR IS NOT APPLICABLE FOR DIALYSIS PATIENTS. HEPATIC FUNCTION [id number] 05:58:00 Test Item Value Reference Range Comments TOTAL PROTEIN (BEAKER) (test zeqw=920) 6.3 gm/dL 6.0-8.5 ALBUMIN (BEAKER) (test pmtm=6106) 3.2 g/dL 3.5-5.0 BILIRUBIN TOTAL (BEAKER) (test lsxx=745) 0.4 mg/dL 0.1-1.2 BILIRUBIN DIRECT (BEAKER) (test uogv=126) 0.2 mg/dL 0.0-0.4 ALKALINE PHOSPHATASE (BEAKER) (test vckb=444) 67 U/L 30-115 AST (SGOT) (BEAKER) (test nyww=675) 13 U/L 5-40 ALT (SGPT) (BEAKER) (test pehn=611) 10 U/L 5-50 CBC W/PLT COUNT & AUTO [id number] 05:56:00 Test Item Value Reference Range Comments WHITE BLOOD CELL COUNT (BEAKER) (test uxkw=942) 6.3 K/ L 4.0-10.0 RED BLOOD CELL COUNT (BEAKER) (test acpm=592) 2.71 M/ L 4.20-5.80 HEMOGLOBIN (BEAKER) (test tywt=522) 7.8 GM/DL 13.0-16.8 HEMATOCRIT (BEAKER) (test qcts=502) 23.6 % 40.0-50.0 MEAN CORPUSCULAR VOLUME (BEAKER) (test rrrr=657) 86.8 fL 82.0-98.0 MEAN CORPUSCULAR HEMOGLOBIN (BEAKER) (test 28.6 pg 27.0-33.0 hdvv=179) MEAN CORPUSCULAR HEMOGLOBIN CONC (BEAKER) (test 33.0 GM/DL 32.0-36.0 enef=308) RED CELL DISTRIBUTION WIDTH (BEAKER) (test 14.8 % 10.3-14.2 pdlp=389) PLATELET COUNT (BEAKER) (test odbr=879) 334 K/CU MM 150-430 MEAN PLATELET VOLUME (BEAKER) (test wzjo=542) 6.9 fL 6.5-10.5 NUCLEATED RED BLOOD CELLS (BEAKER) (test 0 /100 WBC 0-0 devr=346) NEUTROPHILS RELATIVE PERCENT (BEAKER) (test 57 % busl=754) LYMPHOCYTES RELATIVE PERCENT (BEAKER) (test 19 % cbwm=998) MONOCYTES RELATIVE PERCENT (BEAKER) (test 15 % enuu=175) EOSINOPHILS RELATIVE PERCENT (BEAKER) (test 7 % mhat=448) BASOPHILS RELATIVE PERCENT (BEAKER) (test 1 % pmos=035) NEUTROPHILS ABSOLUTE COUNT (BEAKER) (test 3.60 K/ L 1.80-8.00 thgz=594) LYMPHOCYTES ABSOLUTE COUNT (BEAKER) (test 1.20 K/ L 1.48-4.50 bhxt=080) MONOCYTES ABSOLUTE COUNT (BEAKER) (test 1.00 K/ L 0.00-1.30 kkbx=676) EOSINOPHILS ABSOLUTE COUNT (BEAKER) (test 0.50 K/ L 0.00-0.50 hjrx=768) BASOPHILS ABSOLUTE COUNT (BEAKER) (test 0.10 K/ L 0.00-0.20 dybu=244) [id number] 05:55:00 Test Item Value Reference Range Comments PHOSPHORUS (BEAKER) (test lozm=605) 4.1 mg/dL 2.5-4.5 PT/[id number] 05:51:00 Test Item Value Reference Range Comments PROTIME (BEAKER) (test jrvn=414) 10.7 seconds 9.3-12.0 INR (BEAKER) (test rbyy=948) 1.0 <=5.9 PARTIAL THROMBOPLASTIN TIME (BEAKER) (test 28.5 seconds 23.0-35.0 hbji=485) RECOMMENDED COUMADIN/WARFARIN INR THERAPY RANGESSTANDARD DOSE: 2.0 - 3.0 Includes: PROPHYLAXIS forvenous thrombosis, systemic embolization; TREATMENT for venous thrombosis and/or pulmonary embolus.HIGH RISK: Target INR is 2.5-3.5 for patients with mechanical heart valves.[id number] 05:50:00 Test Item Value Reference Range Comments MAGNESIUM (BEAKER) (test rvmq=473) 1.7 mg/dL 1.5-3.0 POCT-GLUCOSE [id number] 23:14:00 Test Item Value Reference Range Comments POC-GLUCOSE METER (BEAKER) 230 mg/dL 70-110 TESTED AT [address] (test swhs=8698) [address] [facility] [address]
--- OUTSIDE RECORDS SUMMARY | 2018-03-07 08:40 | XMS REPORT | Clinical Summary ---
:1965 Author Organization [facility] Address [address] [place] [address] Phone Care Team Providers Name Role Phone [...] Bala Traore 06/15/2017 Medicine MD Nabila after 03/06/2017 Social History Tobacco Use Types Packs/Day Years Used Date Never Smoker Smokeless Tobacco: Never Used Sex Assigned at Date Recorded Not on file Last Filed Vital Signs Vital Sign Reading Time Taken Blood Pressure 124/61 06/15/2017 4:00 PM [facility] Pulse 66 06/15/2017 4:00 PM [facility] Temperature 36.3 C (97.3 F) 06/15/2017 4:00 PM [facility] Respiratory Rate 18 06/15/2017 4:00 PM [facility] Oxygen Saturation 96% 06/15/2017 4:00 PM [facility] Inhaled Oxygen Concentration - - Weight 97 kg (213 lb 12.8 oz) 06/08/2017 10:42 PM [facility] Height 190.5 cm (6' 3") 06/08/2017 10:42 PM [facility] Body Mass Index 26.72 06/08/2017 10:42 PM [facility]ATH Plan of Treatment Not on file Implants Implanted Type 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 [address] 70 - 110 mg/dL [facility] [address] Specimen Performing Laboratory Blood [facility] [address] [address] CBC with platelet count + automated diff [...] - 0.20 K/L Specimen Performing Laboratory Blood [facility] [address] [place] [address] CBC with platelet count + automated diff (06/15/2017 12:59 PM)Only the most recent of3 resultswithin the time period is included. Specimen Performing Laboratory Blood Narrative The following orders were created for panel order CBC with platelet count + automated diff. Procedure Abnormality Status --------- ------ CBC with platelet count ...[[id number]]AbnormalFinal result Please view results for these tests on the individual orders. Magnesium (06/15/2017 12:59 PM)Only the most recent of2 resultswithin the time period is included. Component Value Ref Range Magnesium 1.9 1.5 - 3.0 mg/dL Specimen Performing Laboratory Blood [facility] [address] [place] [address] Basic Metabolic Panel (06/15/2017 12:59 PM)Only the [...] FOR DIALYSIS PATIENTS. Specimen Performing Laboratory Blood [facility] [address] [place] [address] POC-TCO2 (06/14/2017 10:22 AM) Component Value Ref Range POC-TCO2 30 (H)Comment: TESTED AT [address] 22 - 29 meq/[place] [address] Specimen Performing Laboratory Blood [address] [address] POC-Chloride (06/14/2017 10:22 AM) Component Value Ref Range POC-Chloride 97 (L)Comment: TESTED AT [address] 98 - 107 meq/ L [place] [address] Specimen Performing Laboratory Blood [address] [address] POC-BUN (06/14/2017 10:22 AM) Component Value Ref Range POC-BUN 20Comment: TESTED AT [address] 7 - 21 mg /dL [facility] Specimen Performing Laboratory Blood [address] [address] POC-Creatinine (06/14/2017 10:22 AM) Component Value Ref Range POC-Creatinine 3.6 (H)Comment: TESTED AT [address] 0.6 - 1.3 mg/dL [place] [address] POC-EGFR 18 mL/min/1.73M2 Specimen Performing Laboratory Blood [address] [address] POCT-HEMATOCRIT (06/14/2017 10:22 AM) Component Value Ref Range POC-Hematocrit 24 (L)Comment: TESTED AT [address] 40 - 50 % [place] [address] Specimen Performing Laboratory Blood [address] [address] POCT-HEMOGLOBIN (06/14/2017 10:22 AM) Component Value Ref Range POC-Hemoglobin 8.2 (L)Comment: TESTED AT [address] 13.0 - 16.8 g/dL [place] [address] Specimen Performing Laboratory Blood [address] [address] POCT-GLUCOSE (06/14/2017 10:22 AM) Component Value Ref Range POC-Glucose 123 (H)Comment: TESTED AT [address] 70 - 110 mg/ dL [place] [address] Specimen Performing Laboratory Blood [address] [address] POC-Sodium (06/14/2017 10:22 AM) Component Value Ref Range POC-Sodium 138Comment: [address] [facility] 135 - 148 meq/[place] [address] Specimen Performing Laboratory Blood [facility] [address] [place] [address] POC-Potassium (06/14/2017 10:22 AM) Component Value Ref Range POC-Potassium 3.6Comment: TESTED AT [facility] [address] 3.6 - 5.5 meq/L [facility] [place] [address] Specimen Performing Laboratory Blood [facility] [address] [place] [address] TRANSFUSION SERVICE REPORT - SCAN (06/13/2017 5:30 PM)ECHOCARDIOGRAM REPORT - SCAN (06/13/2017 2:20 PM)2D Echo W/Doppler(CW/PW/Color) (06/13/2017 7:42 AM) Component Value Ref Range Ejection Fraction Specimen Performing Laboratory [facility] MKCKESSON CPACS Narrative Transthoracic Echocardiography Report (TTE) Demographics Patient Name YUSUF DARBY Date of Study 06/13/2017 [id number] Male Visit Number [id number] Accession Number [id number] Room Number B432 Date of Birth1965Referring Physician Age52 year(s)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 Clementina Seymour [facility] Interpreting Murphy Hartley MD Physician Procedure Type [...] External Ris In - 06/13/2017 1:51 PM HOMOEOPATH Transthoracic Echocardiography Report (TTE) Demographics Patient Name YUSUF DARBY Date of Study 06/13/2017 Gender Male Visit Number [id number] Race Unknown Accession Number [id number] Room Number B432 Date of 1965 Referring Physician Age 52 year(s) 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 HIGH RISK: Target INR is 2.5-3.5 for patients with mechanical heart valves. Type and screen ([facility]) (06/12/2017 3:29 PM) Component Value Ref Range Ab Scrn NEGATIVE ABO Grouping A Rh Factor POS Specimen Performing Laboratory Blood [facility] [address] [place] [address] TSH (06/12/2017 3:29 PM) Component Value Ref Range TSH 2.09 0.35 - 5.50 uIU/mL Specimen Performing Laboratory Blood [facility] [address] [place] [address] Comprehensive metabolic panel (06/12/2017 3:29 PM) Component [...] FOR DIALYSIS PATIENTS. Specimen Performing Laboratory Blood [facility] [address] [place] [address] XR chest 1 view portable / bedside [...] MD Report Verified Date/Time:06/10/2017 08:49:42 Reading Location: [facility] Radiology Reading Room Procedure Note Interface, External Ris In - 06/10/2017 8:51 AM HOMOEOPATH FINAL REPORT TECHNIQUE: Frontal chest radiograph dated [...] Report Verified Date/Time: 06/10/2017 08:49:42 Reading Location: [facility] Radiology Reading Room Hepatitis B core antibody, total (06/10/2017 8:13 AM) Component Value Ref Range Hep B Core Total Ab Nonreactive Nonreactive Specimen Performing Laboratory Blood - Arm, Left [address] [address] Hepatitis B surface antibody (06/09/2017 7:06 PM) Component Value Ref Range Hep B S Ab <8.0 <8.0 mIU/mL Specimen Performing Laboratory Blood - Central Venous Line [address] [address] Hepatitis B surface antigen (06/09/2017 7:06 PM) Component Value Ref Range hepatitis B Surface Ag Nonreactive Nonreactive Specimen Performing Laboratory Blood - Central Venous Line [facility] [address] [place] [address] IR Tunneled Catheter Insertion (06/09/2017 11:45 AM) Specimen Performing Laboratory [facility] Narrative FINAL REPORT Tunneled central venous catheter insertion. History: End-stage renal disease Modality: Sonography and fluoroscopy. Sedation: Moderate sedation was administered. 2 mg of Versed [id number] mcg of fentanyl IV was used for moderate sedation monitored under my direction. Total intra-service time of sedation [id number]. The patient's vital signs were monitored throughout the procedure and recorded in the patient's medical record by the nurse. Market Research Analyst:Onesimo Lopez MD. Car Barn Laborer:None. Approach: Right internal jugular vein Estimated blood [...] needle into the right atrium. A 4 Maltese micropuncture sheath was placed.A subcutaneous tunnel was created in the right anterior chest wall by blunt dissection.A 19 cm tipped cuff 15.5 Maltese Duraflow 2 catheter was brought through the [...] MD Report Verified Date/Time:06/09/2017 12:13:36 Reading Location: [facility] Radiology Reading Room Procedure Note Interface, External Ris In - 06/09/2017 12:21 PM HOMOEOPATH FINAL REPORT Tunneled central venous catheter insertion. [...] the patient's medical record by the nurse. Market Research Analyst: Onesimo Lopez MD. Car Barn Laborer: None. Approach: Right internal jugular vein Estimated [...] needle into the right atrium. A 4 Maltese micropuncture sheath was placed. A subcutaneous tunnel was created in the right anterior chest wall by blunt dissection. A 19 cm tipped cuff 15.5 Maltese Duraflow 2 catheter was brought through the [...] Report Verified Date/Time: 06/09/2017 12:13:36 Reading Location: [facility] Radiology Reading Room /aPTT (06/09/2017 5:15 AM) Component Value Ref Range Protime 10.7 9.3 - 12.0 seconds INR 1.0 <=5.9 PTT 28.5 23.0 - 35.0 seconds Specimen Performing Laboratory Blood - Arm, [facility] [address] [place] [address] Narrative RECOMMENDED COUMADIN/WARFARIN INR THERAPY RANGES STANDARD DOSE: 2.0 - 3.0 Includes: PROPHYLAXIS for venous thrombosis, systemic embolization; TREATMENT for venous thrombosis and/or pulmonary embolus. HIGH RISK: Target INR is 2.5-3.5 for patients with mechanical heart valves. Phosphorus (06/09/2017 5:15 AM) Component Value Ref Range Phosphorus 4.1 2.5 - 4.5 mg/dL Specimen Performing Laboratory Blood - Arm, [facility] [address] [place] [address] Hepatic function panel (06/09/2017 5:15 AM) Component Value Ref Range Protein, Total 6.3 6.0 - 8.5 gm/dL Albumin 3.2 (L) 3.5 - 5.0 g/dL Total Bilirubin 0.4 0.1 - 1.2 mg/dL Bilirubin, Direct 0.2 0.0 - 0.4 mg/dL Alkaline Phosphatase 67 30 - 115 U/L AST 13 5 - 40 U/L ALT 10 5 - 50 U/L Specimen Performing Laboratory Blood - Arm, [facility] [address] [place] [address] after 03/06/2017
[2018-03-07] MEDS ORDERED: LIDOCAINE 1% MPF 2 ML AMPULE ONE (10:23)
[2018-03-07] MEDS ORDERED: PROPOFOL 200 MG/20 ML VIAL IV ONE (10:23)
--- NOTE | 2018-03-07 10:46 | ENDO RPT ---
[address], [address] EGD PROCEDURE REPORT EXAM DATE: 03/07/2018 PATIENT NAME: Yusuf Bah MR#: [id number] BIRTHDATE: 1965 ATTENDING: Steve Rosenberg Dr STATUS: outpatient CASHIERS SUPERVISOR: Stella Garcia and Galina Hernandez RN INDICATIONS: The patient is a 52 yr old Male here for an EGD due to nausea and vomiting, weight loss, belching, and anemia PROCEDURE PERFORMED: EGD with biopsy MEDICATIONS: Per Anesthesia. TOPICAL ANESTHETIC: none CONSENT: The patient understands the risks and benefits of the procedure and understands that these risks include, but are not limited to: sedation, allergic reaction, infection, perforation and/or bleeding. Alternative means of evaluation and treatment include, among others: physical exam, x-rays, and/or surgical intervention. The patient elects to proceed with this endoscopic procedure. DESCRIPTION OF PROCEDURE: During intra-op preparation period all mechanical medical equipment was checked for proper function. Hand hygiene and appropriate measures for infection prevention was taken. Procedure, possible complications, and alternatives including but not limited to the possibility of bleeding, perforation, tear, infection, sepsis, need for surgery, need for blood transfusion, and anesthesia related complications were explained to the patient. After the risks, benefits and alternatives of the procedure were thoroughly explained, Informed consent was verified, confirmed and timeout was successfully executed by the treatment team. The patient was placed in the left lateral position. The patient was anesthetized with topical anesthesia. Through the anesthetized oropharyngeal area, the scope was passed without any difficulty. The Pentax EG-[id number] ([id number]) endoscope was introduced through the mouth and advanced to the third portion of the duodenum. Retroflexed views revealed no abnormalities. The gastroscope was then slowly withdrawn and removed. Moderate atrophic gastritis was found in the antrum > total stomach. Multiple biopsies were obtained and sent to pathology. Multiple erosions were found in the antrum. ADVERSE EVENTS: There were no complications. IMPRESSIONS: 1. Moderate atrophic gastritis in the antrum > total stomach, s/p biopsies 2. Multiple (3) erosions in the antrum RECOMMENDATIONS: 1. await biopsy results 2. acid suppression therapy REPEAT EXAM: Steve Rosenberg Dr eSigned: Steve Rosenberg Dr 03/07/2018 10:38 AM cc: Garo Chavarria CPT CODES: ICD9 CODES: PATIENT NAME: Yusuf Bah MR#: [id number]
[2018-03-07 11:01] VITALS: TEMP 97.7
[2018-03-07 11:03] VITALS: BP 112/87; O2SAT 99
--- NOTE | 2018-03-07 12:57 | ENDO RPT ---
[address], [address] EGD PROCEDURE REPORT EXAM DATE: 03/07/2018 PATIENT NAME: Yusuf Bah MR#: [id number] BIRTHDATE: 1965 ATTENDING: Steve Rosenberg Dr STATUS: outpatient YOUTH CARE SPECIALIST: Stella Garcia and Galina Hernandez RN INDICATIONS: The patient is a 52 yr old Male here for an EGD due to nausea and vomiting, weight loss, belching, and anemia PROCEDURE PERFORMED: EGD with biopsy MEDICATIONS: Per Anesthesia. TOPICAL ANESTHETIC: none CONSENT: The patient understands the risks and benefits of the procedure and understands that these risks include, but are not limited to: sedation, allergic reaction, infection, perforation and/or bleeding. Alternative means of evaluation and treatment include, among others: physical exam, x-rays, and/or surgical intervention. The patient elects to proceed with this endoscopic procedure. DESCRIPTION OF PROCEDURE: During intra-op preparation period all mechanical medical equipment was checked for proper function. Hand hygiene and appropriate measures for infection prevention was taken. Procedure, possible complications, and alternatives including but not limited to the possibility of bleeding, perforation, tear, infection, sepsis, need for surgery, need for blood transfusion, and anesthesia related complications were explained to the patient. After the risks, benefits and alternatives of the procedure were thoroughly explained, Informed consent was verified, confirmed and timeout was successfully executed by the treatment team. The patient was placed in the left lateral position. The patient was anesthetized with topical anesthesia. Through the anesthetized oropharyngeal area, the scope was passed without any difficulty. The Pentax EG-[id number] ([id number]) endoscope was introduced through the mouth and advanced to the third portion of the duodenum. Retroflexed views revealed no abnormalities. The gastroscope was then slowly withdrawn and removed. LA class A esophagitis in the distal esophagus. Moderate atrophic gastritis was found in the antrum > total stomach. Multiple biopsies were obtained and sent to pathology. Multiple erosions were found in the antrum. ADVERSE EVENTS: There were no complications. IMPRESSIONS: 1. LA class A esophagitis in the distal esophagus 2. Moderate atrophic gastritis in the antrum > total stomach, s/p biopsies 3. Multiple (3) erosions in the antrum RECOMMENDATIONS: 1. await biopsy results 2. acid suppression therapy REPEAT EXAM: Steve Rosenberg Dr eSigned: Steve Rosenberg Dr 03/07/2018 11:31 AM Revised: 03/07/2018 11:31 AM cc: Garo Chavarria CPT CODES: ICD9 CODES: PATIENT NAME: Yusuf Bah MR#: [id number]
== END 2018-03-07 11:08 | disposition home or self-care (01) ==
LOC: OR 08:01
PROVIDERS: ATTEND Internal Medicine Gastroenterology
PROC: 0DB68ZX Excision of Stomach, Via Natural or Artificial Opening Endoscopic, Diagnostic (ICD-10-PCS; principal; 2018-03-07 10:45)
DX: K29.50 Unspecified chronic gastritis without bleeding (principal); K20.8 Other esophagitis; D64.9 Anemia, unspecified; R63.4 Abnormal weight loss; E11.9 Type 2 diabetes mellitus without complications; H40.9 Unspecified glaucoma; F32.9 Major depressive disorder, single episode, unspecified
CPT/HCPCS: 82962; 88305; 88312; J2001; J7030

== ENCOUNTER 2018-03-09 13:26 | Observation (INO) | payer BC, OTHER ==
--- OUTSIDE RECORDS SUMMARY | 2018-03-09 13:44 | XMS REPORT | Clinical Summary ---
:1965 Author Organization [facility] Address [address] [place] [address] Care Team Providers Name Role Phone Garo [...] dialysis catheter in place MD Frank after 03/08/2017 Immunizations Name Dates Previously Given Next Due [...] CDT procedure are in the results section. [place] AN ELECTIVE Routine 08/25/2017 8:09 ENDOTRACHEAL AIRWAY AM CDT Procedure Note - Federico Young CRNA - 08/25/2017 8:09 AM CDT Airway Date/Time: 08/25/2017 7:40 AM Performed by: FEDERICO YOUNG V. Authorized by: TONAY CASTRO Location: OR Urgency: Elective Anesthesiologist: TONYA [...] Routine 07/19/2017 7:48 AM Results for this UNARMED SECURITY GUARD procedure are in the results section. POC GLUCOSE Routine 07/18/2017 8:52 PM Results for this UNARMED SECURITY GUARD procedure are in the results section. NM GASTRIC EMPTYING Routine 07/18/2017 5:06 PM Results for this UNARMED SECURITY GUARD procedure are in the results section. POC GLUCOSE Routine 07/18/2017 4:15 PM Results for this UNARMED SECURITY GUARD procedure are in the results section. CELL COUNT AND Routine 07/18/2017 10:00 AM Results for this DIFFERENTIAL, BODY FLUID UNARMED SECURITY GUARD procedure are in the results section. FUNGUS SMEAR Routine 07/18/2017 10:00 AM Results for this UNARMED SECURITY GUARD procedure are in the results section. GRAM STAIN Routine 07/18/2017 10:00 AM Results for this UNARMED SECURITY GUARD procedure are in the results section. FUNGUS CULTURE Routine 07/18/2017 10:00 AM Results for this UNARMED SECURITY GUARD procedure are in the results section. ANAEROBIC CULTURE Routine 07/18/2017 10:00 AM Results for this UNARMED SECURITY GUARD procedure are in the results section. AEROBIC CULTURE Routine 07/18/2017 10:00 AM Results for this UNARMED SECURITY GUARD procedure are in the results section. CT ABDOMEN PELVIS WO Routine 07/18/2017 9:02 AM Results for this CONTRAST UNARMED SECURITY GUARD procedure are in the results section. LACTIC ACID LEVEL, Timed 07/18/2017 4:11 AM Results for this SEPSIS - NOW AND REPEAT UNARMED SECURITY GUARD procedure are in 2X EVERY 3 HOURS the results section. LACTIC ACID LEVEL, Timed 07/17/2017 8:30 PM Results for this SEPSIS - NOW AND REPEAT UNARMED SECURITY GUARD procedure are in 2X EVERY 3 HOURS the results section. ZZESTIMATED GFR STAT 07/17/2017 4:55 PM Results for this UNARMED SECURITY GUARD procedure are in the results section. LIPASE LEVEL STAT 07/17/2017 4:55 PM Results for this UNARMED SECURITY GUARD procedure are in the results section. COMPREHENSIVE METABOLIC STAT 07/17/2017 4:55 PM Results for this PANEL UNARMED SECURITY GUARD procedure are in the results section. LACTIC ACID LEVEL, STAT 07/17/2017 4:55 PM Results for this SEPSIS - NOW AND REPEAT UNARMED SECURITY GUARD procedure are in 2X EVERY 3 HOURS the results section. HC COMPLETE BLD COUNT STAT 07/17/2017 4:55 PM Results for this W/AUTO DIFF UNARMED SECURITY GUARD procedure are in the results section. BLOOD CULTURE, AEROBIC & Routine 07/17/2017 4:55 PM Results for this ANAEROBIC UNARMED SECURITY GUARD procedure are in the results section. BLOOD CULTURE, AEROBIC & Routine 07/17/2017 4:50 PM Results for this ANAEROBIC UNARMED SECURITY GUARD procedure are in the results section. after 03/08/2017 Results POC glucose (08/25/2017 8:40 AM)Only the most recent of4 resultswithin the time period is included. POC glucose 152 (H) 65 - 99 mg/dL [facility] DEPARTMENT OF PATHOLOGY AND Comment: GENOMIC MEDICINE RN Notified Meter ID: [id number] [employer] Specialist Supervisor: Boogie Blackburn Performing Organization Address City/State/Zipcode Phone Number [facility] DEPARTMENT OF PATHOLOGY [address] [place] [address] AND GENOMIC MEDICINE POC panel 4 (08/25/2017 6:59 AM) POC sodium 138 135 - 148 meq/L [facility] DEPARTMENT OF PATHOLOGY AND GENOMIC MEDICINE POC potassium 3.7 3.5 - 5.0 meq/L [facility] DEPARTMENT OF PATHOLOGY AND GENOMIC MEDICINE POC hematocrit 36 (L) 41 - 51 % [facility] DEPARTMENT OF PATHOLOGY AND GENOMIC MEDICINE POC glucose 155 (H) 65 - 99 mg/dL [facility] DEPARTMENT OF PATHOLOGY AND GENOMIC MEDICINE POC hemoglobin 12.2 (L) 14.0 - 18.0 g/dL [facility] DEPARTMENT OF PATHOLOGY AND GENOMIC MEDICINE Specimen Blood Performing Organization Address City/[facility] Phone Number [facility] DEPARTMENT OF PATHOLOGY [id number] [place] [address] [employer] Estimated GFR (08/25/2017 6:47 AM)Only the most recent of2 resultswithin the time period is included. GFR Non Af Amer 18 (A) mL/min/1.73 m2 [facility] DEPARTMENT OF PATHOLOGY AND [employer] MEDICINE GFR Af Amer 22 (A) mL/min/1.73 m2 [facility] DEPARTMENT OF Comment: PATHOLOGY AND [employer] Chronic kidney disease: <60 mL/min/1.73m2 MEDICINE Kidney [...] Americans. Specimen Plasma specimen Performing Organization Address City/[facility] Cent[facility]ode Phone Number [facility] DEPARTMENT OF PATHOLOGY [address] [place] [address] [employer] Basic metabolic panel (08/25/2017 6:47 AM) Sodium 138 135 - 148 mEq/L [facility] DEPARTMENT OF PATHOLOGY AND GENOMIC MEDICINE Potassium 3.9 3.5 - 5.0 mEq/L [facility] DEPARTMENT OF PATHOLOGY AND GENOMIC MEDICINE Chloride 100 98 - 112 mEq/L [facility] DEPARTMENT OF PATHOLOGY AND GENOMIC MEDICINE CO2 26 24 - 31 mEq/L [facility] DEPARTMENT OF PATHOLOGY AND GENOMIC MEDICINE Anion gap 12 7 - 15 mEq/L [facility] DEPARTMENT OF Comment: PATHOLOGY AND GENOMIC Starting from September , anion gap calculation MEDICINE no longer incorporates potassium. Please note the change. BUN 29 (H) 6 - 20 mg/dL [facility] DEPARTMENT OF PATHOLOGY AND GENOMIC MEDICINE Creatinine 3.6 (H) 0.7 - 1.2 mg/dL [facility] DEPARTMENT OF PATHOLOGY AND GENOMIC MEDICINE Glucose 159 (H) 65 - 99 mg/dL [facility] DEPARTMENT OF PATHOLOGY AND GENOMIC MEDICINE Calcium 9.2 8.3 - 10.2 mg/dL [facility] DEPARTMENT OF PATHOLOGY AND GENOMIC MEDICINE Specimen Plasma specimen Performing Organization Address City/State/Zipcode Phone Number [facility] DEPARTMENT OF PATHOLOGY [address] [facility] [place] [address] AND GENOMIC MEDICINE CBC with platelet and differential (08/23/2017 12:26 PM)Only the most recent of2 resultswithin the time period is included. WBC 6.9 4.5 - 11.0 k/uL [facility] DEPARTMENT OF PATHOLOGY AND GENOMIC MEDICINE RBC 3.16 (L) 4.40 - 6.00 m/uL [facility] DEPARTMENT OF PATHOLOGY AND GENOMIC MEDICINE HGB 8.6 (L) 14.0 - 18.0 g/dL [facility] DEPARTMENT OF PATHOLOGY AND GENOMIC MEDICINE HCT 27.4 (L) 41.0 - 51.0 % [facility] DEPARTMENT OF PATHOLOGY AND GENOMIC MEDICINE MCV 86.7 82.0 - 100.0 fL [facility] DEPARTMENT OF PATHOLOGY AND GENOMIC MEDICINE MCH 27.2 27.0 - 34.0 pg [facility] DEPARTMENT OF PATHOLOGY AND GENOMIC MEDICINE MCHC 31.4 31.0 - 37.0 g/dL [facility] DEPARTMENT OF PATHOLOGY AND GENOMIC MEDICINE RDW - SD 52.3 37.0 - 55.0 fL [facility] DEPARTMENT OF PATHOLOGY AND GENOMIC MEDICINE MPV 9.1 6.9 - 11.0 fL [facility] DEPARTMENT OF PATHOLOGY AND GENOMIC MEDICINE Platelet count 273 150 - 400 K/uL [facility] DEPARTMENT OF PATHOLOGY AND GENOMIC MEDICINE Nucleated RBC 0.00 /100 WBC [facility] DEPARTMENT OF PATHOLOGY AND GENOMIC MEDICINE Neutrophils 63.7 39.0 - 69.0 % [facility] DEPARTMENT OF PATHOLOGY AND GENOMIC MEDICINE Lymphocytes 18.6 (L) 25.0 - 45.0 % [facility] DEPARTMENT OF PATHOLOGY AND GENOMIC MEDICINE Monocytes 12.3 (H) 0.0 - 10.0 % [facility] DEPARTMENT OF PATHOLOGY AND GENOMIC MEDICINE Eosinophils 4.0 0.0 - 5.0 % [facility] DEPARTMENT OF PATHOLOGY AND GENOMIC MEDICINE Basophils 0.7 0.0 - 1.0 % [facility] DEPARTMENT OF PATHOLOGY AND GENOMIC MEDICINE Immature granulocytes 0.7 0.0 - 1.0 % [facility] DEPARTMENT OF PATHOLOGY AND GENOMIC MEDICINE Specimen Blood Performing Organization Address [facility]ercoca Phone Number [facility] DEPARTMENT OF PATHOLOGY [address] [place] [id number] AND GENOMIC MEDICINE ECG Pre/Post Op (08/23/2017 11:23 AM) Ventricular rate 54 [facility] Atrial rate 54 [facility] AZ interval 176 [facility] QRSD interval 88 [facility] QT interval 492 [facility] QTC interval 466 [facility] P axis 1 5 [facility] QRS axis 1 10 [facility] T wave axis 140 [facility] EKG impression Sinus bradycardia-T wave abnormality, [facility] consider lateral ischemia-Prolonged QT-Abnormal ECG-No previous ECGs available- Performing Organization Address [facility] Phone Number [facility] [address] [place] [address] NM Gastric Emptying (07/18/2017 5:06 PM) Narrative Performed At Procedure:NM GASTRIC EMPTYING [facility] Clinical History:ABDOMINAL PAIN Technique 0.8 millicuries of [id number] colloid were mixed with an egg and cooked. The egg was fed to the patient and dynamic imaging of the abdomen in the anterior and posterior projections was performed for 90 minutes. Quantification of gastric emptying was performed using the geometric mean of the anterior and posterior projections. FINDINGS: Gastric emptying half time=53 minutes (normal is <100 minutes). IMPRESSION: Normal gastric emptying. [facility]-[id number] Procedure Note Interface, Radiology Results Incoming - 07/18/2017 5:20 PM UNARMED SECURITY GUARD Procedure: NM GASTRIC EMPTYING Clinical History: ABDOMINAL PAIN Technique 0.8 millicuries of [id number]-[id number] colloid were mixed with an egg and cooked. The egg was fed to the patient and dynamic imaging of the abdomen in the anterior and posterior projections was performed for 90 minutes. Quantification of gastric emptying was performed using the geometric mean of the anterior and posterior projections. FINDINGS: Gastric emptying half time=53 minutes (normal is <100 minutes). IMPRESSION: Normal gastric emptying. [facility]-[id number] Performing Organization Address [facility] Phone Number [facility] [address] [place] [address] Fungus smear (07/18/2017 10:00 AM) Fungus smear No fungi observed. [facility] DEPARTMENT OF PATHOLOGY Comment: AND GENOMIC MEDICINE Specimen Information Specimen Source: Peritoneal fluid Specimen Site: Peritoneal Specimen Peritoneal fluid - Peritoneal Performing Organization Address City/[facility] Centercode Phone Number [facility] DEPARTMENT OF PATHOLOGY AND [address] [place] [address] GENOMIC MEDICINE Aerobic culture (07/18/2017 10:00 AM) Aerobic culture isolate No growth after 3 days. [facility] DEPARTMENT OF Comment: PATHOLOGY AND GENOMIC Specimen Information MEDICINE Specimen Source: Peritoneal fluid Specimen Site: Peritoneal Specimen Peritoneal fluid - Peritoneal Performing Organization Address City/[facility] Centercode Phone Number [facility] DEPARTMENT OF PATHOLOGY AND [address] [place] [phone] [facility] MEDICINE Gram stain (07/18/2017 10:00 AM) Gram stain isolate Rare WBC's [facility] DEPARTMENT OF PATHOLOGY No organisms seen AND GENOMIC MEDICINE Comment: Specimen Information Specimen Source: Peritoneal fluid Specimen Site: Peritoneal Specimen Peritoneal fluid - Peritoneal Performing Organization Address [facility] Centercode Phone Number [facility] DEPARTMENT OF PATHOLOGY AND [address] [place] [address] GENOMIC [facility] Fungus culture (07/18/2017 10:00 AM) Fungus culture isolate No growth after 4 weeks of incubation. [facility] DEPARTMENT OF Comment: PATHOLOGY AND GENOMIC Specimen Information MEDICINE Specimen Source: Peritoneal fluid Specimen Site: Peritoneal Specimen Peritoneal fluid - Peritoneal Performing Organization Address City/[facility] Centercode Phone Number [facility] DEPARTMENT OF PATHOLOGY AND [address] [place] [phone] GENOMIC MEDICINE Anaerobic culture (07/18/2017 10:00 AM) Anaerobic culture No anaerobic organisms isolated. [facility] DEPARTMENT OF isolate Comment: PATHOLOGY AND GENOMIC Specimen Information MEDICINE Specimen Source: Peritoneal fluid Specimen Site: Peritoneal Specimen Peritoneal fluid - Peritoneal Performing Organization Address City/[facility]/Zipcode Phone Number [facility] DEPARTMENT OF PATHOLOGY AND [address] [place] [address] [employer] MEDICINE Cell count and differential, body fluid (07/18/2017 10:00 AM) [facility] fluid type PD fluid [facility] DEPARTMENT OF PATHOLOGY AND GENOMIC MEDICINE Color, fluid Colorless [facility] DEPARTMENT OF PATHOLOGY AND GENOMIC MEDICINE Appearance, fluid Clear [facility] DEPARTMENT OF PATHOLOGY AND GENOMIC MEDICINE RBC, fluid SEE COMMENTComment: 1+ (0 - /CMM [facility] DEPARTMENT OF 500 RBC/CMM) PATHOLOGY AND GENOMIC MEDICINE Nucleated cells, fluid 29 /CMM [facility] DEPARTMENT OF PATHOLOGY AND GENOMIC MEDICINE Fluid mononuclear cell SEE COMMENT [facility] DEPARTMENT OF Comment: PATHOLOGY AND GENOMIC Footnote--------- MEDICINE Unable to perform differential due to very low count. Specimen Fluid Performing Organization Address City/State/Zipcode Phone Number [facility] DEPARTMENT OF PATHOLOGY [address] [place] [address] Abdomen Pelvis Wo [...] renal calyceal stones are present without hydronephrosis. [id number] Procedure Note Interface, Radiology Results Incoming - 07/18/2017 9:14 AM UNARMED SECURITY GUARD EXAMINATION: CT ABDOMEN PELVIS WO CONTRAST CLINICAL [...] renal calyceal stones are present without hydronephrosis. [id number] Performing Organization Address [facility] Centercode Phone Number [facility] [address] [place] [phone] Lactic acid level, SEPSIS - Now and repeat 2x every 3 hours (07/18/2017 4:11 AM )Only the most recent of3 resultswithin the time period is included. Lactic acid 0.6 0.5 - 2.2 mmol/L [facility] DEPARTMENT OF PATHOLOGY AND GENOMIC MEDICINE Specimen Plasma specimen Performing Organization Address [facility] Phone Number [facility] DEPARTMENT OF PATHOLOGY [address] [place] [address]. [place] [address] AND [facility] Blood culture, aerobic & anaerobic (07/17/2017 4:55 PM)Only the most recent of2 resultswithin the time period is included. Blood culture isolate No growth after 5 days of incubation. [facility] DEPARTMENT OF Comment: PATHOLOGY AND GENOMIC Specimen Information MEDICINE Specimen Source: Blood Specimen Site: Hand, right Specimen Blood - Hand, right Performing Organization Address [facility]/Zipcode Phone Number [facility] DEPARTMENT OF PATHOLOGY AND [address] [place] [phone] [facility] MEDICINE Lipase level (07/17/2017 4:55 PM) Lipase 48 13 - 60 U/L [facility] DEPARTMENT OF PATHOLOGY AND GENOMIC MEDICINE Specimen Plasma specimen Performing Organization Address [facility]/Zipcode Phone Number [facility] DEPARTMENT OF PATHOLOGY [address] [place] [address] AND [facility] Comprehensive metabolic panel (07/17/2017 4:55 PM) Sodium 134 (L) 135 - 148 mEq/L [facility] DEPARTMENT OF PATHOLOGY AND GENOMIC MEDICINE Potassium 4.6 3.5 - 5.0 mEq/L [facility] DEPARTMENT OF PATHOLOGY AND GENOMIC MEDICINE Chloride 96 (L) 98 - 112 mEq/L [facility] DEPARTMENT OF PATHOLOGY AND GENOMIC MEDICINE CO2 25 24 - 31 mEq/L [facility] DEPARTMENT OF PATHOLOGY AND GENOMIC MEDICINE Anion gap 13 7 - 15 mEq/L [facility] DEPARTMENT OF Comment: PATHOLOGY AND GENOMIC Starting from September , anion gap calculation MEDICINE no longer incorporates potassium. Please note the change. BUN 22 (H) 6 - 20 mg/dL [facility] DEPARTMENT OF PATHOLOGY AND GENOMIC MEDICINE Creatinine 3.8 (H) 0.7 - 1.2 mg/dL [facility] DEPARTMENT OF PATHOLOGY AND GENOMIC MEDICINE Glucose 138 (H) 65 - 99 mg/dL [facility] DEPARTMENT OF PATHOLOGY AND GENOMIC MEDICINE Calcium 8.7 8.3 - 10.2 mg/dL [facility] DEPARTMENT OF PATHOLOGY AND GENOMIC MEDICINE Protein 6.8 6.3 - 8.3 g/dL [facility] DEPARTMENT OF PATHOLOGY AND GENOMIC MEDICINE Albumin 2.8 (L) 3.5 - 5.0 g/dL [facility] DEPARTMENT OF PATHOLOGY AND GENOMIC MEDICINE A/G ratio 0.7 0.7 - 3.8 [facility] DEPARTMENT OF PATHOLOGY AND GENOMIC MEDICINE Alkaline phosphatase 69 40 - 129 U/L [facility] DEPARTMENT OF PATHOLOGY AND GENOMIC MEDICINE AST 20 10 - 50 U/L [facility] DEPARTMENT OF PATHOLOGY AND GENOMIC MEDICINE ALT 6 5 - 50 U/L [facility] DEPARTMENT OF PATHOLOGY AND GENOMIC MEDICINE Total bilirubin <0.2 0.2 - 1.2 mg/dL [facility] DEPARTMENT OF PATHOLOGY AND GENOMIC MEDICINE Specimen Plasma specimen Performing Organization Address City/State/Zipcode Phone Number [facility] DEPARTMENT OF PATHOLOGY [address] [place] [address] AND GENOMIC MEDICINE after 03/08/2017 Insurance Payer Benefit Plan / Group Subscriber ID Type Phone Address SILVIA CARCAMO xxxxxxxxxxxx PPO MEDICARE MEDICARE PART A AND B xxxxxxxxxx Medicare [place], [place] [phone] [place], [place] [phone]
--- OUTSIDE RECORDS SUMMARY | 2018-03-09 13:45 | XMS REPORT | Clinical Summary ---
:1965 Author Organization [facility] Address [address] [place] [address] Phone Care Team Providers Name Role Phone [...] Bala Traore 06/15/2017 Medicine MD Nabila after 03/08/2017 Social History Tobacco Use Types Packs/Day Years Used Date Never Smoker Smokeless Tobacco: Never Used Sex Assigned at Date Recorded Not on file Last Filed Vital Signs Vital Sign Reading Time Taken Blood Pressure 124/61 06/15/2017 4:00 PM ENROLLMENT CLERK Pulse 66 06/15/2017 4:00 PM ENROLLMENT CLERK Temperature 36.3 C (97.3 F) 06/15/2017 4:00 PM ENROLLMENT CLERK Respiratory Rate 18 06/15/2017 4:00 PM ENROLLMENT CLERK Oxygen Saturation 96% 06/15/2017 4:00 PM ENROLLMENT CLERK Inhaled Oxygen Concentration - - Weight 97 kg (213 lb 12.8 oz) 06/08/2017 10:42 PM ENROLLMENT CLERK Height 190.5 cm (6' 3") 06/08/2017 10:42 PM ENROLLMENT CLERK Body Mass Index 26.72 06/08/2017 10:42 PM ENROLLMENT CLERK Plan of Treatment Not on file Implants Implanted Type Area Communications Writer Device Expiration Model / Identifier Date Serial / Lot Cath Peritoneal Dyls 57cm 2cuf [id number] - Sn/A Catheter N/A: COVIDIEN: SHAZIA 02/17/2021 [id number] / Implanted: Qty: 1 on 06/14/2017 by Abdiel Ivory MD Dialysis Abdomen L N/A / Shelter [id number] Procedures Procedure Name Priority Date/Time Associated Diagnosis Comments LAPAROSCOPY,INSERT 06/14/2017 11:00 AM Renal Failure PERITONEAL CATHETER ENROLLMENT CLERK after 03/08/2017 Results RHYTHM STRIP - SCAN (07/04/2017 3:42 [...] Range POC-Glucose Meter 243 (H)Comment: TESTED AT [facility] [address] 70 - 110 mg/dL [facility] [address] Specimen Performing Laboratory Blood [facility] [address] [address] CBC with platelet count + automated diff [...] - 0.20 K/L Specimen Performing Laboratory Blood [facility] [address] [place] [address] CBC with platelet count + automated diff (06/15/2017 12:59 PM)Only the most recent of3 resultswithin the time period is included. Specimen Performing Laboratory Blood Narrative The following orders were created for panel order CBC with platelet count + automated diff. Procedure Abnormality Status --------- ------ CBC with platelet count ...[[id number]]AbnormalFinal result Please view results for these tests on the individual orders. Magnesium (06/15/2017 12:59 PM)Only the most recent of2 resultswithin the time period is included. Component Value Ref Range Magnesium 1.9 1.5 - 3.0 mg/dL Specimen Performing Laboratory Blood [facility] [address] [place] [address] Basic Metabolic Panel (06/15/2017 12:59 PM)Only the [...] FOR DIALYSIS PATIENTS. Specimen Performing Laboratory Blood [facility] [address] [place] [address] POC-TCO2 (06/14/2017 10:22 AM) Component Value Ref Range POC-TCO2 30 (H)Comment: TESTED AT [address] 22 - 29 meq/[place] [id number] Specimen Performing Laboratory Blood [address] [address] POC-Chloride (06/14/2017 10:22 AM) Component Value Ref Range POC-Chloride 97 (L)Comment: TESTED AT [address] 98 - 107 meq/ L [place] [address] Specimen Performing Laboratory Blood [address] [address] POC-BUN (06/14/2017 10:22 AM) Component Value Ref Range POC-BUN 20Comment: TESTED AT [address] 7 - 21 mg /dL [facility] Specimen Performing Laboratory Blood [address] [address] POC-Creatinine (06/14/2017 10:22 AM) Component Value Ref Range POC-Creatinine 3.6 (H)Comment: TESTED AT [address] 0.6 - 1.3 mg/dL [place] [address] POC-EGFR 18 mL/min/1.73M2 Specimen Performing Laboratory Blood [address] [address] POCT-HEMATOCRIT (06/14/2017 10:22 AM) Component Value Ref Range POC-Hematocrit 24 (L)Comment: TESTED AT [address] 40 - 50 % [place] [address] Specimen Performing Laboratory Blood [address] [address] POCT-HEMOGLOBIN (06/14/2017 10:22 AM) Component Value Ref Range POC-Hemoglobin 8.2 (L)Comment: TESTED AT [address] 13.0 - 16.8 g/dL [place] [address] Specimen Performing Laboratory Blood [address] [address] POCT-GLUCOSE (06/14/2017 10:22 AM) Component Value Ref Range POC-Glucose 123 (H)Comment: TESTED AT [address] 70 - 110 mg/ dL [place] [address] Specimen Performing Laboratory Blood [address] [address] POC-Sodium (06/14/2017 10:22 AM) Component Value Ref Range POC-Sodium 138Comment: [address] [facility] 135 - 148 meq/[place] [address] Specimen Performing Laboratory Blood [facility] [address] [place] [address] POC-Potassium (06/14/2017 10:22 AM) Component Value Ref Range POC-Potassium 3.6Comment: TESTED AT [facility] [address] 3.6 - 5.5 meq/[place] [facility] [address] Specimen Performing Laboratory Blood [facility] [address] [place] [address] TRANSFUSION SERVICE REPORT - SCAN (06/13/2017 5:30 PM)ECHOCARDIOGRAM REPORT - SCAN (06/13/2017 2:20 PM)2D Echo W/Doppler(CW/PW/Color) (06/13/2017 7:42 AM) Component Value Ref Range Ejection Fraction Specimen Performing Laboratory [facility] ECHO HEARTLAB MKCKESSON CPACS Narrative Transthoracic Echocardiography Report (TTE) Demographics Patient Name YUSUF DARBY Date of Study 06/13/2017 [id number] Male Visit Number [id number] Accession Number [id number] Room Number B432 Date of Birth1965Referring Physician Age52 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(s)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 [facility] Interpreting Murphy Hartley MD Physician [...] External Ris In - 06/13/2017 1:51 PM ENROLLMENT CLERK Transthoracic Echocardiography Report (TTE) Demographics Patient Name YUSUF DARBY Date of Study 06/13/2017 Gender Male Visit Number [id number] Race Unknown Accession Number [id number] Room Number B432 Date of 1965 Referring Physician Age 52 year(s) 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 HIGH RISK: Target INR is 2.5-3.5 for patients with mechanical heart valves. Type and screen ([facility]) (06/12/2017 3:29 PM) Component Value Ref Range Ab Scrn NEGATIVE ABO Grouping A Rh Factor POS Specimen Performing Laboratory Blood [facility] [address] [place] [address] TSH (06/12/2017 3:29 PM) Component Value Ref Range TSH 2.09 0.35 - 5.50 uIU/mL Specimen Performing Laboratory Blood [facility] [address] [place] [address] Comprehensive metabolic panel (06/12/2017 3:29 PM) Component [...] FOR DIALYSIS PATIENTS. Specimen Performing Laboratory Blood [facility] [address] [place] [address] XR chest 1 view portable / bedside [...] MD Report Verified Date/Time:06/10/2017 08:49:42 Reading Location: [facility] Radiology Reading Room Procedure Note Interface, External Ris In - 06/10/2017 8:51 AM ENROLLMENT CLERK FINAL REPORT TECHNIQUE: Frontal chest radiograph dated [...] Report Verified Date/Time: 06/10/2017 08:49:42 Reading Location: [facility] Radiology Reading Room Hepatitis B core antibody, total (06/10/2017 8:13 AM) Component Value Ref Range Hep B Core Total Ab Nonreactive Nonreactive Specimen Performing Laboratory Blood - Arm, Left [address] [address] Hepatitis B surface antibody (06/09/2017 7:06 PM) Component Value Ref Range Hep B S Ab <8.0 <8.0 mIU/mL Specimen Performing Laboratory Blood - Central Venous Line [address] [address] Hepatitis B surface antigen (06/09/2017 7:06 PM) Component Value Ref Range hepatitis B Surface Ag Nonreactive Nonreactive Specimen Performing Laboratory Blood - Central Venous Line [facility] [address] [place] [address] IR Tunneled Catheter Insertion (06/09/2017 11:45 AM) Specimen Performing Laboratory GE RIS Narrative FINAL REPORT Tunneled central venous catheter insertion. History: End-stage renal disease Modality: Sonography and fluoroscopy. Sedation: Moderate sedation was administered. 2 mg of Versed [id number] mcg of fentanyl IV was used for moderate sedation monitored under my direction. Total intra-service time of sedation [id number]. The patient's vital signs were monitored throughout the procedure and recorded in the patient's medical record by the nurse. Regulator Tester:Onesimo Lopez MD. Hoistman:None. Approach: Right internal jugular vein Estimated blood [...] needle into the right atrium. A 4 Chinese micropuncture sheath was placed.A subcutaneous tunnel was created in the right anterior chest wall by blunt dissection.A 19 cm tipped cuff 15.5 Chinese Duraflow 2 catheter was brought through the [...] MD Report Verified Date/Time:06/09/2017 12:13:36 Reading Location: [facility] Radiology Reading Room Procedure Note Interface, External Ris In - 06/09/2017 12:21 PM ENROLLMENT CLERK FINAL REPORT Tunneled central venous catheter insertion. [...] the patient's medical record by the nurse. Regulator Tester: Onesimo Lopez MD. Hoistman: None. Approach: Right internal jugular vein Estimated [...] needle into the right atrium. A 4 Chinese micropuncture sheath was placed. A subcutaneous tunnel was created in the right anterior chest wall by blunt dissection. A 19 cm tipped cuff 15.5 Chinese Duraflow 2 catheter was brought through the [...] Report Verified Date/Time: 06/09/2017 12:13:36 Reading Location: [facility] Radiology Reading Room /aPTT (06/09/2017 5:15 AM) Component Value Ref Range Protime 10.7 9.3 - 12.0 seconds INR 1.0 <=5.9 PTT 28.5 23.0 - 35.0 seconds Specimen Performing Laboratory Blood - Arm, [facility] [address] [place] [address] Narrative RECOMMENDED COUMADIN/WARFARIN INR THERAPY RANGES STANDARD DOSE: 2.0 - 3.0 Includes: PROPHYLAXIS for venous thrombosis, systemic embolization; TREATMENT for venous thrombosis and/or pulmonary embolus. HIGH RISK: Target INR is 2.5-3.5 for patients with mechanical heart valves. Phosphorus (06/09/2017 5:15 AM) Component Value Ref Range Phosphorus 4.1 2.5 - 4.5 mg/dL Specimen Performing Laboratory Blood - Arm, [facility] [address] [place] [address] Hepatic function panel (06/09/2017 5:15 AM) Component [...] Specimen Performing Laboratory Blood - Arm, [facility] [address] [place] [address] after 03/08/2017
--- OUTSIDE RECORDS SUMMARY | 2018-03-09 13:45 | XMS REPORT ---
:1965 [facility] Address [facility] [address] [place] [address] Care Team Providers Name Role Phone DWIGHT [...] TESTED AT [facility] [address] [place] [address] lckc=[id number]) [address] [facility] [address] BASIC METABOLIC [id number] 13:51:00 Test Item Value Reference Range Comments SODIUM (BEAKER) (test 139 meq/L 135-148 yloh=845) POTASSIUM (BEAKER) (test 3.4 meq/L 3.6-5.5 flse=195) CHLORIDE (BEAKER) (test 101 meq/L 98-106 hkpf=503) CO2 (BEAKER) (test 29 meq/L 20-29 spxi=068) BLOOD UREA NITROGEN 11 mg/dL 10-26 (BEAKER) (test ayws=182) CREATININE (BEAKER) (test 2.10 mg/dL 0.50-1.20 wphw=575) GLUCOSE RANDOM (BEAKER) 157 mg/dL 70-110 (test nzji=285) CALCIUM (BEAKER) (test 8.6 mg/dL 8.5-10.5 nwja=057) EGFR (BEAKER) (test 33 mL/min/1.73 sq m ESTIMATED GFR IS NOT fkim=4898) ACCURATE CREATININE CLEARANCE IN PREDICTING GLOMERULAR FILTRATION RATE. ESTIMATED GFR IS NOT APPLICABLE FOR DIALYSIS PATIENTS. [id number] 13:44:00 Test Item Value Reference Range Comments MAGNESIUM (BEAKER) (test zrim=915) 1.9 mg/dL 1.5-3.0 CBC W/PLT COUNT & AUTO [id number] 13:34:00 Test Item Value Reference Range Comments WHITE BLOOD CELL COUNT (BEAKER) (test aoue=160) 6.8 K/ L 4.0-10.0 RED BLOOD CELL COUNT (BEAKER) (test vcnx=091) 2.92 M/ L 4.20-5.80 HEMOGLOBIN (BEAKER) (test cgbn=055) 8.4 GM/DL 13.0-16.8 HEMATOCRIT (BEAKER) (test bmvp=923) 25.5 % 40.0-50.0 MEAN CORPUSCULAR VOLUME (BEAKER) (test ehet=220) 87.4 fL 82.0-98.0 MEAN CORPUSCULAR HEMOGLOBIN (BEAKER) (test 28.7 pg 27.0-33.0 bqso=310) MEAN CORPUSCULAR HEMOGLOBIN CONC (BEAKER) (test 32.8 GM/DL 32.0-36.0 qhtv=644) RED CELL DISTRIBUTION WIDTH (BEAKER) (test 14.7 % 10.3-14.2 otmv=730) PLATELET COUNT (BEAKER) (test gdgq=692) 299 K/CU MM 150-430 MEAN PLATELET VOLUME (BEAKER) (test cmkr=648) 6.9 fL 6.5-10.5 NUCLEATED RED BLOOD CELLS (BEAKER) (test 0 /100 WBC 0-0 cuep=721) NEUTROPHILS RELATIVE PERCENT (BEAKER) (test 65 % xusc=842) LYMPHOCYTES RELATIVE PERCENT (BEAKER) (test 18 % kdwx=199) MONOCYTES RELATIVE PERCENT (BEAKER) (test 14 % ugou=611) EOSINOPHILS RELATIVE PERCENT (BEAKER) (test 3 % mcaw=459) BASOPHILS RELATIVE PERCENT (BEAKER) (test 1 % okmv=938) NEUTROPHILS ABSOLUTE COUNT (BEAKER) (test 4.40 K/ L 1.80-8.00 tonn=979) LYMPHOCYTES ABSOLUTE COUNT (BEAKER) (test 1.20 K/ L 1.48-4.50 bemb=737) MONOCYTES ABSOLUTE COUNT (BEAKER) (test 1.00 K/ L 0.00-1.30 bozj=943) EOSINOPHILS ABSOLUTE COUNT (BEAKER) (test 0.20 K/ L 0.00-0.50 ytya=318) BASOPHILS ABSOLUTE COUNT (BEAKER) (test 0.00 K/ L 0.00-0.20 dvdx=180) POCT-GLUCOSE [id number] 11:28:00 Test Item Value Reference Range Comments POC-GLUCOSE METER (BEAKER) 147 mg/dL 70-110 TESTED AT [address] (test hstu=9907) [place] [address] POCT-GLUCOSE [id number] 06:04:00 Test Item Value Reference Range Comments POC-GLUCOSE METER (BEAKER) 137 mg/dL 70-110 TESTED AT [address] (test rydk=0222) [place] [address] POCT-GLUCOSE [id number] 21:01:00 Test Item Value Reference Range Comments POC-GLUCOSE METER (BEAKER) 138 mg/dL 70-110 TESTED AT [address] (test aodb=1637) [place] [address] POCT-GLUCOSE [id number] 16:06:00 Test Item Value Reference Range Comments POC-GLUCOSE METER (BEAKER) 167 mg/dL 70-110 TESTED AT [address] (test srlv=8409) [place] [address] POCT-GLUCOSE [id number] 12:49:00 Test Item Value Reference Range Comments POC-GLUCOSE METER (BEAKER) 144 mg/dL 70-110 TESTED AT [address] (test kztk=4779) [place] [address] [id number] 10:27:00 Test Item Value Reference Range Comments POC-CREATININE (BEAKER) 3.6 mg/dL 0.6-1.3 TESTED AT [address] (test idyz=4013) [place] [address] POC-EGFR (BEAKER) (test 18 mL/min/1.73M2 jmdt=0170) [id number] 10:27:00 Test Item Value Reference Range Comments POC-SODIUM (BEAKER) (test 138 meq/L 135-148 TESTED AT [address] hlku=7823) [place] [address] [id number] 10:27:00 Test Item Value Reference Range Comments POC-POTASSIUM (BEAKER) 3.6 meq/L 3.6-5.5 TESTED AT [address] (test lxjo=8259) [place] [address] [id number] 10:27:00 Test Item Value Reference Range Comments POC-BUN (BEAKER) (test 20 mg/dL 7-21 TESTED AT [address] dtha=6119) [place] [address] [id number] 10:27:00 Test Item Value Reference Range Comments POC-CHLORIDE (BEAKER) (test 97 meq/L 98-107 TESTED AT [address] czaw=8938) [place] [address] [id number] 10:27:00 Test Item Value Reference Range Comments POC-GLUCOSE (BEAKER) (test 123 mg/dL 70-110 TESTED AT [address] leam=7841) [place] [address] [id number] 10:27:00 Test Item Value Reference Range Comments POC-HEMATOCRIT (BEAKER) (test 24 % 40-50 TESTED AT [address] jvfw=1782) [place] [address] [id number] 10:27:00 Test Item Value Reference Range Comments POC-HEMOGLOBIN (BEAKER) 8.2 g/dL 13.0-16.8 TESTED AT [address] (test amqj=5856) [place] [address] [id number] 10:27:00 Test Item Value Reference Range Comments POC-TCO2 (BEAKER) (test 30 meq/L 22-29 TESTED AT [address] omve=7256) [place] [address] POCT-GLUCOSE [id number] 06:08:00 Test Item Value Reference Range Comments POC-GLUCOSE METER (BEAKER) 163 mg/dL 70-110 TESTED AT [address] (test slwo=9144) [place] [address] POCT-GLUCOSE [id number] 21:07:00 Test Item Value Reference Range Comments POC-GLUCOSE METER (BEAKER) 132 mg/dL 70-110 TESTED AT [facility] [address] [place] [address] (test wrrq=4303) [facility] [address] POCT-GLUCOSE [id number] 12:58:00 Test Item Value Reference Range Comments POC-GLUCOSE METER (BEAKER) 178 mg/dL 70-110 TESTED AT [address] (test uyux=7471) [facility] [address] POCT-GLUCOSE [id number] 05:29:00 Test Item Value Reference Range Comments POC-GLUCOSE METER (BEAKER) 171 mg/dL 70-110 TESTED AT [address] (test ipbk=2327) [facility] [address] POCT-GLUCOSE [id number] 22:03:00 Test Item Value Reference Range Comments POC-GLUCOSE METER (BEAKER) 249 mg/dL 70-110 TESTED AT [address] (test gifo=5923) [facility] [address] POCT-GLUCOSE [id number] 16:45:00 Test Item Value Reference Range Comments POC-GLUCOSE METER (BEAKER) 213 mg/dL 70-110 TESTED AT [address] (test eedh=6277) [facility] [address] [id number] 16:43:00 Test Item Value Reference Range Comments THYROID STIMULATING HORMONE (BEAKER) (test 2.09 uIU/mL 0.35-5.50 hxct=198) COMPREHENSIVE METABOLIC [id number] 16:24:00 Test Item Value Reference Range Comments TOTAL PROTEIN (BEAKER) 7.2 gm/dL 6.0-8.5 (test grat=670) ALBUMIN (BEAKER) (test 3.5 g/dL 3.5-5.0 cerw=2385) ALKALINE PHOSPHATASE 67 U/L 30-115 (BEAKER) (test kgaf=054) BILIRUBIN TOTAL (BEAKER) 0.3 mg/dL 0.1-1.2 (test mnfi=245) SODIUM (BEAKER) (test 136 meq/L 135-148 jeaf=325) POTASSIUM (BEAKER) (test 4.1 meq/L 3.6-5.5 bjhs=201) CHLORIDE (BEAKER) (test 98 meq/L 98-106 adai=656) CO2 (BEAKER) (test 26 meq/L 20-29 bqig=607) BLOOD UREA NITROGEN 32 mg/dL 10-26 (BEAKER) (test ipte=931) CREATININE (BEAKER) (test 4.40 mg/dL 0.50-1.20 yvls=836) GLUCOSE RANDOM (BEAKER) 212 mg/dL 70-110 (test uzwe=002) CALCIUM (BEAKER) (test 9.0 mg/dL 8.5-10.5 esap=890) AST (SGOT) (BEAKER) (test 14 U/L 5-40 mwbm=497) ALT (SGPT) (BEAKER) (test 4 U/L 5-50 dyeu=510) EGFR (BEAKER) (test 14 mL/min/1.73 sq m ESTIMATED GFR IS NOT fncc=6061) ACCURATE CREATININE CLEARANCE IN PREDICTING GLOMERULAR FILTRATION RATE. ESTIMATED GFR IS NOT APPLICABLE FOR DIALYSIS PATIENTS. CBC W/PLT COUNT & AUTO [id number] 16:02:00 Test Item Value Reference Range Comments WHITE BLOOD CELL COUNT (BEAKER) (test frnm=684) 6.9 K/ L 4.0-10.0 RED BLOOD CELL COUNT (BEAKER) (test upvp=438) 2.95 M/ L 4.20-5.80 HEMOGLOBIN (BEAKER) (test imzv=709) 8.6 GM/DL 13.0-16.8 HEMATOCRIT (BEAKER) (test okat=208) 25.9 % 40.0-50.0 MEAN CORPUSCULAR VOLUME (BEAKER) (test eixi=563) 87.9 fL 82.0-98.0 MEAN CORPUSCULAR HEMOGLOBIN (BEAKER) (test 29.0 pg 27.0-33.0 kton=054) MEAN CORPUSCULAR HEMOGLOBIN CONC (BEAKER) (test 33.0 GM/DL 32.0-36.0 ykue=089) RED CELL DISTRIBUTION WIDTH (BEAKER) (test 15.0 % 10.3-14.2 hzow=471) PLATELET COUNT (BEAKER) (test arlp=634) 330 K/CU MM 150-430 MEAN PLATELET VOLUME (BEAKER) (test anot=591) 7.1 fL 6.5-10.5 NUCLEATED RED BLOOD CELLS (BEAKER) (test 0 /100 WBC 0-0 qlvq=035) NEUTROPHILS RELATIVE PERCENT (BEAKER) (test 66 % npph=227) LYMPHOCYTES RELATIVE PERCENT (BEAKER) (test 16 % iqkx=103) MONOCYTES RELATIVE PERCENT (BEAKER) (test 12 % fhjs=908) EOSINOPHILS RELATIVE PERCENT (BEAKER) (test 5 % tpus=041) BASOPHILS RELATIVE PERCENT (BEAKER) (test 1 % vvat=496) NEUTROPHILS ABSOLUTE COUNT (BEAKER) (test 4.60 K/ L 1.80-8.00 npte=921) LYMPHOCYTES ABSOLUTE COUNT (BEAKER) (test 1.10 K/ L 1.48-4.50 oxiy=898) MONOCYTES ABSOLUTE COUNT (BEAKER) (test 0.80 K/ L 0.00-1.30 pguo=511) EOSINOPHILS ABSOLUTE COUNT (BEAKER) (test 0.30 K/ L 0.00-0.50 xtid=496) BASOPHILS ABSOLUTE COUNT (BEAKER) (test 0.10 K/ L 0.00-0.20 drvt=671) PROTHROMBIN [id number] 16:01:00 Test Item Value Reference Range Comments PROTIME (BEAKER) (test bqnq=722) 10.3 seconds 9.3-12.0 INR (BEAKER) (test zgkf=389) 1.0 <=5.9 RECOMMENDED COUMADIN/WARFARIN INR THERAPY RANGESSTANDARD DOSE: 2.0 - 3.0 Includes: PROPHYLAXIS forvenous thrombosis, systemic embolization; TREATMENT for venous thrombosis and/or pulmonary embolus.HIGH RISK: Target INR is 2.5-3.5 for patients with mechanical heart valves.POCT-GLUCOSE [id number] 12:01:00 Test Item Value Reference Range Comments POC-GLUCOSE METER (BEAKER) 211 mg/dL 70-110 TESTED AT [facility] [address] [place] [address] (test loyi=2896) [facility] [address] POCT-GLUCOSE [id number] 06:08:00 Test Item Value Reference Range Comments POC-GLUCOSE METER (BEAKER) 191 mg/dL 70-110 TESTED AT [address] (test zhgu=6708) [facility] [address] POCT-GLUCOSE [id number] 21:28:00 Test Item Value Reference Range Comments POC-GLUCOSE METER (BEAKER) 233 mg/dL 70-110 TESTED AT [address] (test dtsm=3497) [facility] [address] POCT-GLUCOSE [id number] 16:19:00 Test Item Value Reference Range Comments POC-GLUCOSE METER (BEAKER) 290 mg/dL 70-110 TESTED AT [address] (test ewfw=4408) [facility] [address] POCT-GLUCOSE [id number] 13:33:00 Test Item Value Reference Range Comments POC-GLUCOSE METER (BEAKER) 186 mg/dL 70-110 TESTED AT [address] (test jtvh=1470) [facility] [address] POCT-GLUCOSE [id number] 06:27:00 Test Item Value Reference Range Comments POC-GLUCOSE METER (BEAKER) 204 mg/dL 70-110 TESTED AT [address] (test etxh=5459) [facility] [address] POCT-GLUCOSE [id number] 21:40:00 Test Item Value Reference Range Comments POC-GLUCOSE METER (BEAKER) 267 mg/dL 70-110 TESTED AT [address] (test hjay=2207) [facility] [address] POCT-GLUCOSE [id number] 17:32:00 Test Item Value Reference Range Comments POC-GLUCOSE METER (BEAKER) 221 mg/dL 70-110 TESTED AT [address] (test wash=5769) [facility] [address] HEPATITIS B SURFACE [id number] 14:21:00 Test Item Value Reference Range Comments HEPATITIS B SURFACE ANTIBODY (BEAKER) (test < mIU/mL <8.0 lknc=091) HEPATITIS B CORE ANTIBODY, [id number] 14:15:00 Test Item Value Reference Range Comments HEPATITIS B CORE TOTAL ANTIBODY (BEAKER) (test Nonreactive Nonreactive kmdi=859) POCT-GLUCOSE [id number] 12:18:00 Test Item Value Reference Range Comments POC-GLUCOSE METER (BEAKER) 193 mg/dL 70-110 TESTED AT [address] (test ueee=8055) [facility] [address] RAD, CHEST, 1 VIEW, NON [id number] 08:49:00Reason for exam:->for outpatient HD placementShould this [...] isnormal in size. No fracture. Signed: Sachi Hammereport Verified Date/Time: 06/10/2017 08:49:42 Reading Location: [facility] Radiology Reading Room Electronically signed by: SACHI HAMMER on 2016 08:49 AMPOCT-GLUCOSE [id number] 06:53:00 Test Item Value Reference Range Comments POC-GLUCOSE METER (BEAKER) 177 mg/dL 70-110 TESTED AT [address] (test oolb=3126) [facility] [address] POCT-GLUCOSE [id number] 22:10:00 Test Item Value Reference Range Comments POC-GLUCOSE METER (BEAKER) 109 mg/dL 70-110 TESTED AT [address] (test doan=6598) [facility] [address] HEPATITIS B SURFACE [id number] 20:18:00 Test Item Value Reference Range Comments HEPATITIS B SURFACE ANTIGEN (2) (BEAKER) (test Nonreactive Nonreactive hman=9106) POCT-GLUCOSE [id number] 17:08:00 Test Item Value Reference Range Comments POC-GLUCOSE METER (BEAKER) 223 mg/dL 70-110 TESTED AT [address] (test uuon=0107) [facility] [address] POCT-GLUCOSE [id number] 12:47:00 Test Item Value Reference Range Comments POC-GLUCOSE METER (BEAKER) 200 mg/dL 70-110 TESTED AT [address] (test nbra=7845) [facility] [address] ANG, TUNNELED CATHETER [id number] 12:13:00Reason for exam:->renal failureFINAL REPORT Tunneled central [...] the patient's medical record by the nurse. Senior Database Engineer: Onesimo Lopez MD. Material Handler 1St Shift: None. Approach: Right internal jugular vein Estimated [...] needle into the right atrium. A 4 Austrian micropuncture sheath was placed. A subcutaneous tunnel was created in the right anterior chest wall by blunt dissection. A 19 cm tipped cuff 15.5 Austrian Duraflow 2 catheter was brought through the [...] ready for immediate use. Signed: Onesimo Lopez Verified Date/Time: 06/09/2017 12:13:36 Reading Location: [facility] Radiology Reading Room 12 :13 PMPOCT-GLUCOSE [id number] 06:03:00 Test Item Value Reference Range Comments POC-GLUCOSE METER (BEAKER) 208 mg/dL 70-110 TESTED AT [facility] [address] [facility] (test qbhc=8928) [address] [facility] [address] BASIC METABOLIC [id number] 06:00:00 Test Item Value Reference Range Comments SODIUM (BEAKER) (test 139 meq/L 135-148 uygx=660) POTASSIUM (BEAKER) (test 3.5 meq/L 3.6-5.5 fyow=370) CHLORIDE (BEAKER) (test 103 meq/L 98-106 wuur=956) CO2 (BEAKER) (test 26 meq/L 20-29 bilg=052) BLOOD UREA NITROGEN 62 mg/dL 10-26 (BEAKER) (test xtdf=862) CREATININE (BEAKER) (test 5.10 mg/dL 0.50-1.20 hjgm=113) GLUCOSE RANDOM (BEAKER) 191 mg/dL 70-110 (test bbxh=160) CALCIUM (BEAKER) (test 9.0 mg/dL 8.5-10.5 ipgv=296) EGFR (BEAKER) (test 12 mL/min/1.73 sq m ESTIMATED GFR IS NOT fjqs=8109) ACCURATE CREATININE CLEARANCE IN PREDICTING GLOMERULAR FILTRATION RATE. ESTIMATED GFR IS NOT APPLICABLE FOR DIALYSIS PATIENTS. HEPATIC FUNCTION [id number] 05:58:00 Test Item Value Reference Range Comments TOTAL PROTEIN (BEAKER) (test zwbu=035) 6.3 gm/dL 6.0-8.5 ALBUMIN (BEAKER) (test kkxz=4904) 3.2 g/dL 3.5-5.0 BILIRUBIN TOTAL (BEAKER) (test ukkl=196) 0.4 mg/dL 0.1-1.2 BILIRUBIN DIRECT (BEAKER) (test jdkc=041) 0.2 mg/dL 0.0-0.4 ALKALINE PHOSPHATASE (BEAKER) (test ydic=225) 67 U/L 30-115 AST (SGOT) (BEAKER) (test nuej=214) 13 U/L 5-40 ALT (SGPT) (BEAKER) (test svfn=950) 10 U/L 5-50 CBC W/PLT COUNT & AUTO [id number] 05:56:00 Test Item Value Reference Range Comments WHITE BLOOD CELL COUNT (BEAKER) (test ppzu=254) 6.3 K/ L 4.0-10.0 RED BLOOD CELL COUNT (BEAKER) (test kjcq=285) 2.71 M/ L 4.20-5.80 HEMOGLOBIN (BEAKER) (test vwoe=490) 7.8 GM/DL 13.0-16.8 HEMATOCRIT (BEAKER) (test zvra=543) 23.6 % 40.0-50.0 MEAN CORPUSCULAR VOLUME (BEAKER) (test hnnr=707) 86.8 fL 82.0-98.0 MEAN CORPUSCULAR HEMOGLOBIN (BEAKER) (test 28.6 pg 27.0-33.0 qxum=388) MEAN CORPUSCULAR HEMOGLOBIN CONC (BEAKER) (test 33.0 GM/DL 32.0-36.0 pvef=520) RED CELL DISTRIBUTION WIDTH (BEAKER) (test 14.8 % 10.3-14.2 cnnn=771) PLATELET COUNT (BEAKER) (test yqiv=430) 334 K/CU MM 150-430 MEAN PLATELET VOLUME (BEAKER) (test ayoi=280) 6.9 fL 6.5-10.5 NUCLEATED RED BLOOD CELLS (BEAKER) (test 0 /100 WBC 0-0 slhi=219) NEUTROPHILS RELATIVE PERCENT (BEAKER) (test 57 % bwug=562) LYMPHOCYTES RELATIVE PERCENT (BEAKER) (test 19 % uyla=712) MONOCYTES RELATIVE PERCENT (BEAKER) (test 15 % fhgb=531) EOSINOPHILS RELATIVE PERCENT (BEAKER) (test 7 % jjww=278) BASOPHILS RELATIVE PERCENT (BEAKER) (test 1 % pzay=112) NEUTROPHILS ABSOLUTE COUNT (BEAKER) (test 3.60 K/ L 1.80-8.00 acql=035) LYMPHOCYTES ABSOLUTE COUNT (BEAKER) (test 1.20 K/ L 1.48-4.50 aidj=966) MONOCYTES ABSOLUTE COUNT (BEAKER) (test 1.00 K/ L 0.00-1.30 hlnx=715) EOSINOPHILS ABSOLUTE COUNT (BEAKER) (test 0.50 K/ L 0.00-0.50 nkgz=913) BASOPHILS ABSOLUTE COUNT (BEAKER) (test 0.10 K/ L 0.00-0.20 dchl=742) [id number] 05:55:00 Test Item Value Reference Range Comments PHOSPHORUS (BEAKER) (test rcde=590) 4.1 mg/dL 2.5-4.5 [id number] 05:51:00 Test Item Value Reference Range Comments PROTIME (BEAKER) (test djyv=451) 10.7 seconds 9.3-12.0 INR (BEAKER) (test babb=246) 1.0 <=5.9 PARTIAL THROMBOPLASTIN TIME (BEAKER) (test 28.5 seconds 23.0-35.0 trba=748) RECOMMENDED COUMADIN/WARFARIN INR THERAPY RANGESSTANDARD DOSE: 2.0 - 3.0 Includes: PROPHYLAXIS forvenous thrombosis, systemic embolization; TREATMENT for venous thrombosis and/or pulmonary embolus.HIGH RISK: Target INR is 2.5-3.5 for patients with mechanical heart valves.[id number] 05:50:00 Test Item Value Reference Range Comments MAGNESIUM (BEAKER) (test rjmp=273) 1.7 mg/dL 1.5-3.0 POCT-GLUCOSE [id number] 23:14:00 Test Item Value Reference Range Comments POC-GLUCOSE METER (BEAKER) 230 mg/dL 70-110 TESTED AT [facility] [address] [place] [address] (test kcdf=9543) [facility] [address]
[2018-03-09 15:16] LABS: Potassium 4.6 mmol/L (3.5-5.1)
[2018-03-09 15:18] LABS: Absolute Lymphocytes (CBC) 0.9 K/uL (0.7-4.9); Absolute Monocytes 0.9 K/uL (0.1-1.3); Absolute Neutrophil 5.4 K/uL (1.8-8.0); Basophils % 1.1 % (0-1.3); Eosinophils % 1.9 % (0-4.4); Hematocrit 33.9 % (39.6-49.0); Lymphocytes % 12.1 % (15.3-44.8); MCH 30.6 pg (27.0-35.0); MCV 91.6 fL (80-100); MPV 7.7 fL (7.6-11.3)
[2018-03-09] MEDS: PROMETHAZINE 25 MG/ML VIAL IV PRN ×2 (15:26→19:32)
[2018-03-09] MEDS ORDERED: NITROGLYCERIN 0.2 MG/HR (5 MG) PATCH TD PRN (17:08)
[2018-03-09] MEDS ORDERED: NITROGLYCERIN 0.4 MG/TAB SL PRN (17:08)
[2018-03-09] MEDS: CODEINE 30MG/APAP 300MG TAB PO PRN (18:08)
[2018-03-09] MEDS ORDERED: D50W 25 GM/50 ML SYRINGE IV PRN (19:21)
[2018-03-09] MEDS ORDERED: GLUCAGON 1 MG/VIAL IM PRN (19:21)
[2018-03-09] MEDS ORDERED: HOME MED 1 EA UNK (Famotidine [Famotidine] 40 MG) PO SCH (21:00)
[2018-03-09] MEDS: INSULIN -REGULAR HUMAN 50 UNIT/0.5 ML ML SQ SCH (21:00)
[2018-03-09] MEDS: HOME MED 1 EA UNK (Travoprost (Benzalkonium) [Travatan 0.004% Eye Drop] 1 DROP) EACH EYE SCH (21:00)
[2018-03-09] MEDS ORDERED: HOME MED 1 EA UNK (Metoprolol Tartrate [Metoprolol Tartrate] 100 MG) PO SCH (21:00)
[2018-03-09] MEDS: METOCLOPRAMIDE 5 MG TAB PO SCH (21:45)
[2018-03-09] MEDS: METOPROLOL TAR 50 MG TAB PO SCH (21:46)
[2018-03-09] MEDS: HYDRALAZINE HCL 25 MG TABLET PO SCH (21:46)
[2018-03-09] MEDS: FUROSEMIDE 40 MG TABLET PO SCH (21:47)
[2018-03-09] MEDS: cloNIDine HCl 0.1 MG TAB PO SCH (21:48)
[2018-03-09] MEDS: FAMOTIDINE 20 MG TAB PO SCH (21:49)
[2018-03-09] MEDS: ATORVASTATIN 80 MG TAB PO SCH (21:49)
[2018-03-09] MEDS: DOCUSATE NA/SENNA CONC 1 TAB PO SCH (21:49)
[2018-03-09] MEDS ORDERED: MORPHINE 2 MG/ML SYR IV PRN (22:06)
[2018-03-09] MEDS: MORPHINE 4 MG/ML SYR IV PRN (22:59)
[2018-03-10] MEDS ORDERED: MORPHINE 4 MG/ML SYR IV PRN (07:24)
[2018-03-10] MEDS: INSULIN -REGULAR HUMAN 50 UNIT/0.5 ML ML SQ SCH ×4 (07:30→20:48)
[2018-03-10] MEDS: PROMETHAZINE 25 MG/ML VIAL IV PRN ×2 (07:48→12:54)
[2018-03-10] MEDS: MORPHINE 4 MG/ML SYR IV PRN ×3 (07:48→20:46)
--- NOTE | 2018-03-10 08:17 | RAD REPORT ---
EXAM DESCRIPTION: NM - Gastric Emptying Study - 03/10/2018 7:51 am CLINICAL HISTORY: Abdominal pain, nausea and vomiting COMPARISON: None. TECHNIQUE: The patient was administered approximately 1 mCi Tc 99m sulfur colloid in solid egg meal. Imaging of the left upper quadrant was performed with time/activity curve generated. FINDINGS: Cine-loop images show normal progression of the radiopharmaceutical from the stomach into the small bowel. Time to one-half activity is 41 minutes, normal. Calculated retention at 2 hours is 0%. No other significant findings. IMPRESSION: Normal gastric emptying study.
[2018-03-10] MEDS ORDERED: HOME MED 1 EA UNK (Ranolazine [Ranexa] 1,000 MG) PO SCH (09:00)
[2018-03-10] MEDS ORDERED: HOME MED 1 EA UNK (Aspirin [Aspirin Ec 325 Mg] 325 MG) PO SCH (09:00)
[2018-03-10] MEDS: METOPROLOL TAR 50 MG TAB PO SCH ×2 (09:06→22:55)
[2018-03-10] MEDS: HYDRALAZINE HCL 25 MG TABLET PO SCH ×3 (09:07→20:48)
[2018-03-10] MEDS: AMLODIPINE 10 MG TAB PO SCH (09:07)
[2018-03-10] MEDS: CLOPIDOGREL 75 MG TABLET PO SCH (09:07)
[2018-03-10] MEDS: SERTRALINE HCL 50 MG TAB PO SCH (09:07)
[2018-03-10] MEDS: FUROSEMIDE 40 MG TABLET PO SCH ×2 (09:07→20:48)
[2018-03-10] MEDS: DOCUSATE NA/SENNA CONC 1 TAB PO SCH ×2 (09:07→22:54)
[2018-03-10] MEDS: ASPIRIN EC 325 MG TABLET PO SCH (09:08)
[2018-03-10] MEDS: METOCLOPRAMIDE 5 MG TAB PO SCH ×3 (09:08→22:54)
[2018-03-10] MEDS: cloNIDine HCl 0.1 MG TAB PO SCH ×3 (09:08→20:47)
--- NOTE | 2018-03-10 15:37 | PN ---
Date of Progress Note: 03/10/2018 Subjective: The patient was seen this morning for followup. No new complaints or problems reported. Last time he vomited was around 3 o'clock in the morning. Before I saw him this morning he had jus t finished his gastric emptying study, results pending. Objective: HEENT: Examination unremarkable. Lungs: Clear to auscultation. Heart: Sounds normal. Abdomen: Soft. Bowel sounds normal. No guarding, rigidity, tenderness, or distention. Extremities: No leg. Impression: 1.Nausea with vomiting. 2.Diabetic gastroparesis. 3.Diabetes mellitus. 4.End-stage renal disease. 5.Hypertension. Plan: We will continue home medications. Followup with graphic user interface designer as well as certified executive chef. The patient will have dialysis tomorrow. Depending on his condition, we will decide if he can be di scharged later today or not. Pending GI consultation. ERNESTO/NESSA Voice ID: [id number] Report ID: [id number]
[2018-03-10 16:13] LABS: Urine Appearance CLOUDY; Urine Bilirubin NEGATIVE (NEG); Urine Blood NEGATIVE (NEG); Urine Color YELLOW; Urine Glucose 1+ (NEG); Urine Protein 3+ (NEG); Urine Urobilinogen 0.2 mg/dL (0.2-1.0); Urine pH 5.5 (5.0-7.0)
[2018-03-10 16:17] LABS: Urine Microscopic Reflex ORDER UMIC
[2018-03-10 16:26] LABS: Urine Bacteria <20 /HPF (NONE SEEN); Urine Culture Reflex Order NOT NEEDED; Urine Mucus 2+ /HPF (NONE SEEN); Urine RBC <5 /HPF (NONE SEEN)
--- NOTE | 2018-03-10 17:02 | HP ---
Date of Admission: 03/09/2018 Chief Complaint: Nausea, vomiting. History Of Present Illness: This is a 52-year-old male patient with multiple comorbidities including diabetes mellitus, hypertension, end-stage renal disease, who presents to the hospital with recurren t nausea and vomiting, which is believed to be due to diabetic gastroparesis. He is requiring more f requent hospital admissions now with this same problem of nausea and vomiting where he is not able to keep any food, liquids, or any medications down and he needs lot of his viral medications and after he goes on for 2-3 days with the same symptoms, then he ends up in the hospital. He was in hospital last week with similar problem and had outpatient EGD done by Dr. Rosenberg, which was done yesterday at the hospital showing some gastritis as well as 3 small gastric erosions in the antrum. The patient denies any hematemesis. No abdominal pain. No fever or chills. After he came into office with this problem, decision was made to admit him to the hospital directly. I did communicate with Dr. Rosenberg and requested him to provide consultation while the patient in the hospital to see if there is anyth ing else he can do to help avoid this recurrent hospital admissions with his nausea and vomiting prob reddy. Allergies: TO SULFA. Medications: List reviewed. Review of Systems: GI: As mentioned. Above all other systems reviewed and negative. Past Medical History: Significant for hypertension, type 2 diabetes mellitus with chronic kidney dis ease and now end-stage renal disease, on hemodialysis, coronary artery disease, anemia due to chronic kidney disease, hyperlipidemia, gastritis, gastroparesis due to diabetes, and chronic back pain. Past Surgical History: Significant for rotator cuff surgery, appendectomy, eye surgery, recently had AV graft replaced in right upper extremity, which was done last week about 7-10 days ago. Family History: Significant for throat cancer, tuberculosis, diabetes mellitus, hypertension. Social History: Negative for smoking and alcohol use. Physical Examination: Vital Signs: When he came into hospital, his initial temperature 98.9, pulse 78, respiratory rate 18 , blood pressure 199/86, oxygen saturation 98%. Height 6 feet 3 inches, weight 205 pounds. General: Awake, alert, oriented, not in distress. HEENT: Head atraumatic, normocephalic. Conjunctivae nonerythematous. Sclerae white. Mouth, no thr ush or edema noted. Ears/Nose, no mass, lesion, discharge noted. Neck: Supple. No JVD, lymph nodes, bruit, thyromegaly noted. Lungs: Bilateral good equal air entry. Clear to auscultation. No rhonchi. No rales. Heart: Normal heart sounds, no murmur or gallop. Abdomen: Soft, bowel sounds normal. No guarding, rigidity, tenderness, mass, hepatosplenomegaly, dis tention, or bruit noted. Extremities: No leg edema. No calf tenderness. Skin: No rash, ulcer, cellulitis. Lymphatics: No lymph node enlargement in neck, supraclavicular, infraclavicular region. Neuro: No focal neurological deficit. Chest: Unremarkable. External Genitalia: Deferred. Rectal: Deferred. Laboratory Data: White count 7.3, hemoglobin 11.3, platelets 278. Sodium 138, potassium 4.6, chlori de 103, bicarb 28, BUN 31, creatinine 5.70, glucose 142, calcium 9.1. Impression: 1.Nausea with vomiting. 2.Diabetic gastroparesis. 3.End-stage renal disease, on hemodialysis. 4.Hypertension. 5.Hyperlipidemia. 6.Diabetes mellitus, type 2 with chronic kidney disease. 7.Anemia due to chronic kidney disease. 8.Chronic back pain. 9.Coronary artery disease. Plan: Admit the patient to hospital for further evaluation and management of this problem. We will go ahead and continue home medications per order. Diabetes will be managed with sliding scale. We w ill consult broadband technician for dialysis needs. He goes for dialysis on Tuesday, Tuesday, Tuesday, and we will also request consultation from carpet yarn winder operator, Dr. Rosenberg. I did talk to Dr. Rosenberg in d etail, and he has requested gastric emptying study to be done as the patient had one done some time a go in the past in [place]. We will give him symptomatic treatment for nausea and vomiting with IV Ph energan as he responds well to that from the prior admissions expanse. ERNESTO/MODL Voice ID: [id number]
[2018-03-10] MEDS ORDERED: BISACODYL 10 MG RECTAL SUPP PR ONE (20:00)
[2018-03-10] MEDS ORDERED: PROMETHAZINE 25 MG/ML VIAL IV ONE (20:00)
[2018-03-10] MEDS: POLYETHYL GLY 3350 17 GM/DOSE PO SCH ×2 (20:47→21:00)
[2018-03-10] MEDS: ATORVASTATIN 80 MG TAB PO SCH (20:47)
[2018-03-10] MEDS: FAMOTIDINE 20 MG TAB PO SCH (20:48)
[2018-03-10] MEDS: HOME MED 1 EA UNK (Travoprost (Benzalkonium) [Travatan 0.004% Eye Drop] 1 DROP) EACH EYE SCH (21:00)
--- NOTE | 2018-03-10 22:00 | CON ---
Date of Consultation: 03/10/2018 Reason For Consultation: Hypertension, elevated BUN and creatinine, and hemodialysis management. History Of Present Illness: This is a 52-year-old gentleman, well known to me from the dialysis with significant past medical history of diabetes, complicated with neuropathy, retinopathy, and nephropa thy; hypertension; hyperlipidemia; peripheral vascular disease; coronary artery disease complicated w ith congestive heart failure; diastolic dysfunction; end-stage renal disease, on hemodialysis Tuesday, Tuesday, and Tuesday through right IJ PermCath at [facility]. The patient was in h is regular state of health and has recurrent admission with epigastric pain, nausea, and vomiting. T his time the same way, started to have epigastric pain, nausea, and vomiting. For that reason, he re ported to the hospital. He could not take his medication. So, on presentation, the patient came wit h hypertension, feeling shortness of breath. The patient did not miss any dialysis. Last dialysis w as Tuesday. We arranged for the dialysis today. The patient is seen on dialysis, feeling little b it more comfort. The patient underwent nuclear medicine gastric emptying study today. Epigastric pa in, nausea, and vomiting have been subsided. Past Medical History: Include; 1.Hypertension. 2.Hyperlipidemia. 3.Diabetes complicated with neuropathy, nephropathy, and retinopathy. 4.Coronary artery disease complicated with congestive heart failure, diastolic dysfunction. 5.Secondary hyperparathyroidism. 6.Anemia of chronic kidney disease. 7.Peripheral vascular disease. 8.End-stage renal disease, on hemodialysis Tuesday, Tuesday, and Tuesday at [facility]. Social History: Denies smoking, denies drinking, and denies drug abuse. Family History: Positive for coronary artery disease. Past Surgical History: Includes cardiac catheterization, appendectomy, PermCath placement and exchan ge, and AV fistula placement on the right upper arm by Dr. Sánchez. Review of Systems: Head and Neck: No red eye. No ear pain. GI: No diarrhea. The patient had epigastric pain. Had nausea and vomiting. : No polyuria. No dysuria. No hematuria. 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 Respiratory: Mild shortness of breath. Cardiovascular: No chest tightness. Endocrine: No polydipsia. Skin: No rash. Neurologic: Has neuropathy. Musculoskeletal: No joint pain. Physical Examination: Vital Signs: Blood pressure 156/71, pulse of 59, afebrile. Chest: Faint crackles on the base. Heart: S1, S2. Regular. Abdomen: Soft, nontender. Extremities: No edema. Neurological: Alert and oriented x3. Nonfocal. Vascular: Negative for carotid bruit. Negative for renal bruit. Current Medications: Include; 1.Amlodipine. 2.Atorvastatin. 3.Plavix. 4.Lasix. 5.Hydralazine. 6.Metoclopramide. 7.Nitroglycerin patch. 8.Ambien. 9.Ranexa. 10.Promethazine. Home Medications: Include; 1.Eye drops. 2.Zofran. 3.Lispro. 4.Nitroglycerin. 5.Pepcid. 6.Clonidine 3 times a day 0.1. 7.Aspirin. 8.Metoclopramide. 9.Hydralazine 75 t.i.d. 10.Ranexa. 11.Metoprolol 100 b.i.d. 12.Plavix. 13.Lasix 40. 14.Atorvastatin. 15.Norvasc. Laboratory Data: WBC 7.3, H and H 11.3/33.9. Sodium 138, potassium 4.6, bicarb 28, BUN 31, creatini ne 5.7, and calcium 9.1. Assessment And Plan: 1.End-stage renal disease, slightly on the wet side. We will do dialysis today. We will try to logan llenge the patient. 2.Hypertension, uncontrolled secondary to the patient did not take his medication secondary to the n ausea and vomiting. We started the patient on nitroglycerin patch. We will resume his home medicati on, currently better controlled. We will follow up blood pressure after dialysis. 3.Anemia of chronic kidney disease. No need for GATO. 4.Secondary hyperparathyroidism, stable. 5.Gastroparesis, nausea and vomiting intractable. The patient is status post gastric emptying study . We will follow up with GI. 6.Coronary artery disease, stable. Follow up with the primary. 7.Congestive heart failure. We will try to establish better volume control with dialysis. Thank you, Dr. Chavarria, for allowing us to participate in the care of your patient. DANIEL/NESSA Voice ID: [id number] Report ID: [id number]
[2018-03-11] MEDS: INSULIN -REGULAR HUMAN 50 UNIT/0.5 ML ML SQ SCH ×4 (07:30→21:25)
[2018-03-11] MEDS: HYDRALAZINE HCL 25 MG TABLET PO SCH ×3 (08:38→17:21)
[2018-03-11] MEDS: cloNIDine HCl 0.1 MG TAB PO SCH ×3 (08:38→21:24)
[2018-03-11] MEDS: POLYETHYL GLY 3350 17 GM/DOSE PO SCH ×4 (08:38→21:26)
[2018-03-11] MEDS: CLOPIDOGREL 75 MG TABLET PO SCH (08:39)
[2018-03-11] MEDS: METOCLOPRAMIDE 5 MG TAB PO SCH ×3 (08:39→21:24)
[2018-03-11] MEDS: ASPIRIN EC 325 MG TABLET PO SCH (08:39)
[2018-03-11] MEDS: SERTRALINE HCL 50 MG TAB PO SCH (08:39)
[2018-03-11] MEDS: AMLODIPINE 10 MG TAB PO SCH (08:39)
[2018-03-11] MEDS: DOCUSATE NA/SENNA CONC 1 TAB PO SCH ×2 (08:39→21:23)
[2018-03-11] MEDS: METOPROLOL TAR 50 MG TAB PO SCH ×2 (08:39→21:24)
[2018-03-11] MEDS: FUROSEMIDE 40 MG TABLET PO SCH ×2 (08:39→21:23)
--- NOTE | 2018-03-11 10:52 | RAD REPORT ---
EXAM DESCRIPTION: CT - Head Brain W Cont - 03/11/2018 10:39 am CLINICAL HISTORY: Bilateral upper extremity weakness, twitching, history of ocular hemorrhage relate d to diabetes, dialysis patient COMPARISON: CT head January 2008 TECHNIQUE: Axial 5 mm thick images of the head were obtained with and without IV contrast. Patient w as administered hand injected bolus of 50 mL Isovue-[address] scans are performed using dose optimization technique as appropriate and may include automated exposure control or mA/KV adjustment according to patient size. FINDINGS: No intracranial hemorrhage, mass, edema or shift of mid-line structures. No acute infarcti on changes seen. No cortical edema or sulcal effacement. Volume loss changes are evident. Ventricles are in proportion to volume loss. Punctate low density area in the posterior left lentiform nucleus n ear the posterior limb internal capsule is noted. This is nonspecific. Ischemic event is possible but in this location would not cause bilateral extremity symptoms. Post-contrast views show no abnormal enhancement. Mastoid air cells and visualized portions of the paranasal sinuses are clear of acute finding. No acute bony findings. IMPRESSION: No hemorrhage, mass or acute intracranial finding. No abnormal enhancement. Minimal ischemic insults could be masked on CT imaging. Ongoing concerns for CVA could be addressed with MR imaging if and when the patient can undergo such an examination.
--- NOTE | 2018-03-11 11:52 | RAD REPORT ---
EXAM DESCRIPTION: US - Abdomen Exam Complete - 03/11/2018 11:15 am CLINICAL HISTORY: Abdominal pain, nausea and vomiting COMPARISON: CT imaging January 26 FINDINGS: Gallbladder size is normal. No gallstones are identified. Small amount of gallbladder slud ge is seen. No wall thickening or pericholecystic fluid. Common bile duct is normal with no common du ct stone identified. The liver and spleen show no suspicious findings. The pancreas is normal. No hydronephrosis of either kidney. Cortical thickness and echogenicity not outside of normal range. No solid mass of either kidney. Bilateral renal cysts are present. These are all anechoic thin-walled cyst with no suspicious characteristics. Largest on the right is 20 mm. Largest on the left is 18 mm . Aorta and IVC show no suspicious findings. No ascites or bulky lymphadenopathy. IMPRESSION: Gallbladder sludge with no gallstones or other acute gallbladder or biliary tree finding . No acute renal finding. Benign simple bilateral renal cysts are present.
[2018-03-11] MEDS: CODEINE 30MG/APAP 300MG TAB PO PRN ×2 (12:30→17:21)
--- NOTE | 2018-03-11 12:37 | PN ---
Date of Progress Note: 03/11/2018 Subjective: The patient had some twitching movement. No nausea. No vomiting. He is tolerating his diet. No abdominal pain. Blood pressure still not controlled. Subjective: Vital Signs: Blood pressure 178/82, pulse of 62. Chest: Clear to auscultation. Heart: S1, S2. Regular. Abdomen: Soft. Nontender. Extremities: No edema. Laboratory Data: H and H 11.3/33.9, sodium 138, potassium 4.6, bicarb 28, BUN 31, creatinine 5.8. C alcium 9.1. Medications: Current medications the patient on its include: 1.Aspirin. 2.Heparin. 3.Plavix. 4.Norvasc 10 mg. 5.Atorvastatin. 6.Clonidine 0.1 t.i.d. 7.Hydralazine 75 t.i.d. 8.Metoprolol 100 b.i.d. 9.Nitroglycerin. 10.Ambien. 11.Zofran. 12.Metoclopramide. Diagnostic Data: His CT head was no hemorrhagic, no mass effect. Assessment And Plan: 1.End-stage renal disease with exposure to contrast today. We going to do extra dialysis today give n the exposure to the contrast and we will monitor the patient. 2.Hypertension, uncontrolled. I am going to go ahead and add lisinopril and increase hydralazine to 100 mg 3 times a day. We will monitor the patient. 3.Anemia of chronic kidney disease. No need for GATO. 4.Secondary hyperparathyroidism, stable. 5.Epigastric pain. Gastroparesis was ruled out. Will follow up with the primary and GI. 6.Diabetes, as by primary. 7.Twitching movement. CT was negative. Will follow up on the ultrasound. 8.Coronary artery disease. Stable. DANIEL/NESSA Voice ID: [id number] Report ID: [id number]
--- NOTE | 2018-03-11 15:08 | PN ---
Date of Progress Note: 03/11/2018 Subjective: The patient was seen this morning for followup. He had couple of episodes of nausea, vo miting yesterday. This morning no new complaints or problems reported. No abdominal pain. Objective: Vital Signs: Reviewed. HEENT: Unremarkable. Lungs: Clear to auscultation. Heart: Sounds normal. Abdomen: Soft. Bowel sounds normal. No guarding, rigidity, tenderness, distention. Extremities: No leg edema. Laboratory Data: The patient's gastric emptying study done yesterday was normal. Today, we ordered abdominal ultrasound, which shows some sludge in the gallbladder, but no evidence of gallbladder wall thickening and no evidence of dilatation of common bile duct. The patient has benign-appearing lacho l cyst. No further intervention needed for that. CAT scan of the head was done with contrast, which came back negative for any acute changes. HIDA scan was ordered to be done today, but considering t he patient had a gastric emptying study done yesterday, HIDA scan will be done tomorrow. Impression: 1.Nausea with vomiting. 2.End-stage renal disease, on hemodialysis. 3.Hypertension. 4.Diabetes mellitus. Plan: We will continue to follow up with sleeve ironer. Details were discussed with Dr. Rosenberg, and he has recommended this further testing to be done, which was CT scan of the head, abdominal ultrasou nd, HIDA scan, so we are pursuing this further testing as the patient's etiology for nausea, vomiting is not clear at this point. We thought he had diabetic gastroparesis, but his gastric emptying stud y came back negative. So at this point, he has ongoing problem with nausea, vomiting with unclear et iology, and we will do our best to try to identify problem here. If not, then Dr. Rosenberg will consid er to refer him to some other specialist in [facility] on an outpatient basis. Considering patient had CAT scan with iodine contrast today, he will have dialysis later today per sleeve ironer, and koffi orrow we will go ahead and do HIDA scan and possible discharge to go home tomorrow depending on HIDA scan. ERNESTO/MODL Voice ID: [id number] Report ID: [id number]
[2018-03-11] MEDS: ONDANSETRON 4 MG/2 ML VIAL IV PRN (18:24)
[2018-03-11] MEDS: HOME MED 1 EA UNK (Travoprost (Benzalkonium) [Travatan 0.004% Eye Drop] 1 DROP) EACH EYE SCH (21:00)
[2018-03-11] MEDS: ATORVASTATIN 80 MG TAB PO SCH (21:23)
[2018-03-11] MEDS: FAMOTIDINE 20 MG TAB PO SCH (21:23)
[2018-03-11] MEDS: ZOLPIDEM TARTRATE 5 MG TABLET PO PRN (21:24)
[2018-03-11] MEDS: MORPHINE 4 MG/ML SYR IV PRN (21:25)
[2018-03-12] MEDS: ONDANSETRON 4 MG/2 ML VIAL IV PRN ×2 (05:12→17:19)
[2018-03-12 06:18] LABS: Albumin 2.8 g/dL (3.4-5.0); Phosphorus 5.4 mg/dL (2.5-4.9); Potassium 4.9 mmol/L (3.5-5.1)
[2018-03-12] MEDS: INSULIN -REGULAR HUMAN 50 UNIT/0.5 ML ML SQ SCH ×4 (07:30→21:00)
[2018-03-12] MEDS: POLYETHYL GLY 3350 17 GM/DOSE PO SCH ×4 (08:42→22:05)
[2018-03-12] MEDS: METOCLOPRAMIDE 5 MG TAB PO SCH ×3 (08:43→22:07)
[2018-03-12] MEDS: DOCUSATE NA/SENNA CONC 1 TAB PO SCH ×2 (08:44→22:03)
[2018-03-12] MEDS: CLOPIDOGREL 75 MG TABLET PO SCH (08:44)
[2018-03-12] MEDS: FUROSEMIDE 40 MG TABLET PO SCH ×2 (08:45→22:07)
[2018-03-12] MEDS: ASPIRIN EC 325 MG TABLET PO SCH (08:45)
[2018-03-12] MEDS: SERTRALINE HCL 50 MG TAB PO SCH (08:45)
[2018-03-12] MEDS: HYDRALAZINE HCL 25 MG TABLET PO SCH ×3 (08:46→22:04)
[2018-03-12] MEDS: LISINOPRIL 20 MG TAB PO SCH (08:47)
[2018-03-12] MEDS: cloNIDine HCl 0.1 MG TAB PO SCH ×3 (08:48→22:06)
[2018-03-12] MEDS: AMLODIPINE 10 MG TAB PO SCH (08:49)
[2018-03-12] MEDS: METOPROLOL TAR 50 MG TAB PO SCH ×2 (08:49→22:09)
[2018-03-12 11:17] VITALS: O2SAT 92
--- NOTE | 2018-03-12 13:30 | PN ---
Date of Progress Note: 03/12/2018 Subjective: The patient was seen this morning for followup. He did tolerate his diet well yesterday after the ultrasound was done. Denies any vomiting yesterday or last night. No abdominal pain. Objective: Vital Signs: Reviewed. HEENT: Unremarkable. Lungs: Clear to auscultation. Heart: Sounds normal. Abdomen: Soft. Bowel sounds normal. No guarding, rigidity, tenderness, or distention. Extremities: No leg edema. Laboratory Data: Sodium 142, potassium 4.9, chloride 108, bicarb 28, BUN 31, creatinine 5.50, glucos e 113. Impression: 1.Nausea with vomiting. 2.Renal cyst. 3.Gallstones. 4.End-stage renal disease, on hemodialysis. 5.Hypertension. Plan: The patient's ultrasound results from yesterday reviewed with him and there was no evidence of any acute cholecystitis or any dilatation of biliary duct. No further intervention needed for renal cyst except periodic monitoring. The patient will have a HIDA scan today and depending on that, we will decide further plan of treatment. If HIDA scan comes back unremarkable, then our plan is to dis charge him to go home with outpatient followup with Dr. Rosenberg who might refer him to another special ist in [place] for ongoing nausea, vomiting problem. CAT scan of the head done yesterday with contrast was negative for any acute to es. ERNESTO/MODL Voice ID: [id number] Report ID: [id number]
--- NOTE | 2018-03-12 13:45 | PN ---
Date of Progress Note: 03/12/2018 Subjective: The patient is doing the same. Still has some nausea without any vomiting. The patient had CT head yesterday, was negative. Physical Examination: Vital Signs: Blood pressure controlled, 132/60; pulse of 61. Chest: Clear to auscultation. Heart: S1, S2. Regular. Abdomen: Soft, nontender. No guarding no rebound. Extremities: No edema. Swelling on the right upper arm with new fistula, good thrill. Right IJ Per mCath. Laboratory Data: WBC 7.3, H and H 11.3/33.9, platelet 276. Sodium 142, potassium 4.9, bicarb 28, BU N 31, creatinine 5.5, calcium 7.9, phosphorus 5.4, albumin 2.8. Corrected calcium is 9.6. Medications: Current medications the patient on its include: 1.Aspirin. 2.Promethazine. 3.Plavix. 4.Norvasc 10 mg. 5.Atorvastatin 80. 6.Clonidine 0.1 t.i.d. 7.Hydralazine 100 t.i.d. 8.Lisinopril 20 daily. 9.Metoprolol 100 b.i.d. 10.Nitroglycerin. 11.Ranexa 1000. 12.Sertraline. 13.Lasix 40 b.i.d. 14.Metoclopramide. 15.Zofran. Assessment And Plan: 1.End-stage renal disease, normal volume, stable status post dialysis yesterday. We are going to sc hedule the patient for dialysis tomorrow to back to his schedule. The patient is going to be dialyze d on low-potassium bath and we will follow up the patient. 2.Hypertension. Controlled, optimal. Continue current medication. 3.Hyperkalemia, resolved. 4.Anemia of chronic kidney disease. No need for GATO. 5.Nausea and vomiting intractable. We will follow up with the primary. Follow up with GI plan for HIDA scan today. If the patient stay for tomorrow, I can do CT of abdomen and pelvis, CT angiogram a nd we will follow up. BRAYAN Voice ID: [id number] Report ID: [id number]
--- NOTE | 2018-03-12 15:20 | RAD REPORT ---
EXAM DESCRIPTION: NM - Hepatobiliary System Imagin - 03/12/2018 3:04 pm CLINICAL HISTORY: NAUSEA AND VOMITING COMPARISON: Abdomen Exam Complete dated 03/11/2018; CT ANGIO ABD/PELVIS W CONTRAST dated 01/26/2018 TECHNIQUE: The patient was administered 6.7 mCi Tc99m Choletec. Imaging of the right upper quadrant was performed initially for up to 60 minutes. Gallbladder ejection fraction determination was then performed utilizing ice cream. FINDINGS: Normal hepatic uptake and excretion with appropriate clearance of background blood pool ac tivity. Normal visualization of biliary and small bowel activity. Gallbladder visualizes within normal time limits. The calculated ejection fraction is 10% (normal gre ater than 35%). Subjective pain reported by the patient: Pre-procedure - none During or subsequent to ice cream - none IMPRESSION: Patient cystic duct and patent sphincter of Oddi. No delay in visualization of the gallb ladder, biliary tree, or duodenum. Ejection fraction is 10% (normal greater than 35%). This may indicate poor contractility of the gallb ladder. Subjective patient pain assessment as detailed above.
[2018-03-12] MEDS: ATORVASTATIN 80 MG TAB PO SCH (21:00)
[2018-03-12] MEDS: HOME MED 1 EA UNK (Travoprost (Benzalkonium) [Travatan 0.004% Eye Drop] 1 DROP) EACH EYE SCH (21:00)
[2018-03-12] MEDS: FAMOTIDINE 20 MG TAB PO SCH (22:03)
[2018-03-12] MEDS: ZOLPIDEM TARTRATE 5 MG TABLET PO PRN (22:08)
[2018-03-12] MEDS: MORPHINE 4 MG/ML SYR IV PRN (22:17)
[2018-03-13] MEDS: MORPHINE 4 MG/ML SYR IV PRN ×2 (04:07→12:42)
[2018-03-13] MEDS: ONDANSETRON 4 MG/2 ML VIAL IV PRN ×2 (04:08→12:43)
[2018-03-13 06:48] VITALS: BMI 25.5
[2018-03-13 07:05] LABS: Phosphorus 6.1 mg/dL (2.5-4.9); Potassium 5.3 mmol/L (3.5-5.1)
[2018-03-13] MEDS: INSULIN -REGULAR HUMAN 50 UNIT/0.5 ML ML SQ SCH ×3 (07:30→16:30)
[2018-03-13] MEDS: POLYETHYL GLY 3350 17 GM/DOSE PO SCH ×3 (09:00→16:49)
[2018-03-13] MEDS: DOCUSATE NA/SENNA CONC 1 TAB PO SCH (12:49)
[2018-03-13] MEDS: HYDRALAZINE HCL 25 MG TABLET PO SCH ×2 (12:49→13:35)
[2018-03-13] MEDS: ASPIRIN EC 325 MG TABLET PO SCH (12:50)
[2018-03-13] MEDS: LISINOPRIL 20 MG TAB PO SCH (12:50)
[2018-03-13] MEDS: AMLODIPINE 10 MG TAB PO SCH (12:51)
[2018-03-13] MEDS: METOCLOPRAMIDE 5 MG TAB PO SCH ×2 (12:51→13:36)
[2018-03-13] MEDS: cloNIDine HCl 0.1 MG TAB PO SCH ×2 (12:52→13:35)
[2018-03-13] MEDS: SERTRALINE HCL 50 MG TAB PO SCH (12:52)
[2018-03-13] MEDS: FUROSEMIDE 40 MG TABLET PO SCH (12:52)
[2018-03-13] MEDS: METOPROLOL TAR 50 MG TAB PO SCH (12:53)
[2018-03-13] MEDS: CLOPIDOGREL 75 MG TABLET PO SCH (12:55)
--- NOTE | 2018-03-13 16:50 | EKG ---
Test Date: 2018-03-13 Test Time: 14:22:24 Clinical Informatics Spec: MAX MEASUREMENT RESULTS: Intervals: Rate: 57 NV: 164 QRSD: 92 QT: 476 QTc: 463 [place]: P: 7 NV: 164 QRS: 1 T: 133 INTERPRETIVE STATEMENTS: Sinus bradycardia T wave abnormality, consider lateral ischemia Prolonged QT Abnormal ECG Compared to ECG 02/19/2018 16:16:48 no significant change from previous ECG although heart rate has decreased Electronically Signed On 03-13-18 16:50:22 CDT by Kevin Esqueda
--- NOTE | 2018-03-13 17:43 | CON ---
CARDIOLOGY CONSULT Reason For Consultation: Preoperative evaluation before a gallbladder surgery. History Of Present Illness: Mr. Bah is a gentleman, who has been having nausea that is just about intractable. He has been anorexic, not really losing weight. He is a hemodialysis patient, has been for several years. He gets hemodialysis Mondays, Wednesdays, and Fridays. He has a history of hear t disease. A cardiac cath showed diffuse microvessel disease. His largest blood vessels were in ord er of 1.5 mm like the left main and proximal LAD. He is not an operative candidate. He has not had any stents or bypass surgery. He has been evaluated at the transplant service up at [facility]. They d o not have him on a transplant list. I am not sure if it is the patient's desires or if it is someth ing to do with the patient himself. I would imagine he would be an unlikely patient to get both hear t and kidney simultaneous transplants, but I think a large amount of that may be the patient's wishes in particular. In any event, he is not on a transplant list. He is not having angina, but he was h aving nausea and anorexia. He has been found to have some gallstones and a very sluggish gallbladder . There is gallbladder sludge and it is believed that if he has his gallbladder removed, it may reso lve his nausea and anorexia. Medications: His outpatient medications are Ambien, travoprost, sertraline, sennosides stool softene r, Ranexa, Zofran, nitroglycerin patch, sublingual nitroglycerin, metoprolol 100 b.i.d., metocloprami de 5 mg t.i.d., insulin, hydralazine, furosemide, famotidine, Plavix, clonidine, atorvastatin, aspiri n, and amlodipine. Allergies: HE IS INTOLERANT TO SULFA ANTIBIOTICS. Physical Examination: Vital Signs: He is 6 feet 3 inches, 204 pounds. General: Alert, oriented, pleasant, not in distress. Lungs: Clear. Heart: Reveals an S4 gallop. No other abnormality. Diagnostic Data: His electrocardiogram has not been done this admission. Most recent echocardiogram was done in 2017, ejection fraction was normal. Most recent electrocardiogram was February 19, 2018 , it showed normal sinus rhythm, left atrial enlargement, left axis, nonspecific ST and T-wave abnorm ality. His EKGs had looked very stable over the years, not changing much. Plan: I would recommend redoing echocardiogram and an EKG. If these are unchanged, he should underg o his gallbladder surgery. There is no way we could ever say it is a low risk surgery, but the risks and benefits are much in favor of removing the gallbladder before it causes an even worse problem th an it is and I do not recommend we do any coronary interventions on him. We will do an echo and EKG preop. Also, it is reasonable to stop the Plavix for 5 days before the surgery. DEENA Voice ID: [id number] Report ID: [id number]
[2018-03-13 17:57] VITALS: BP 157/70; TEMP 97.1
--- NOTE | 2018-03-13 19:24 | CON ---
Date of Consultation: 03/13/2018 Reason: Abnormal HIDA scan. History Of Present Illness: The patient is a 52-year-old gentleman with multiple medical problems, w ho came in with nausea and vomiting, and this is a frequent recurrent admission for him. He was thou ght to have possible diabetic gastroparesis. He has seen Dr. Rosenberg. It showed some mild gastritis and erosions. There is no pain. Just nausea and vomiting. No hematemesis. No diarrhea or constipa tion. No blood in his stool. No dysuria or hematuria. No sore throat, runny nose, cough, headaches , or dizziness. No chest pain. No fever or chills. Review of Systems: Otherwise unremarkable. Past Medical History: Hypertension; type 2 diabetes; chronic kidney disease with end-stage renal dis ease, now on hemodialysis; coronary artery disease; hyperlipidemia; chronic back pain. Past Surgical History: Rotator cuff surgery, appendectomy, eye surgery, AV graft placed in the right upper extremity. Allergies: INCLUDE SULFA. Social History: He does not smoke or drink. Family History: Significant for throat cancer, tuberculosis, hypertension, and diabetes. Physical Examination: Vital Signs: Stable. He is afebrile. General: He is awake, alert, and oriented x3. Head and neck: No evidence of icterus. Cranial nerves 2 through 12 are grossly within normal limits . No neck masses. No JVD. Throat clear. Neck is supple. Chest: Clear. Heart: S1, S2. Abdomen: Soft, nondistended, nontender. Positive bowel sounds. Extremities: Neurovascularly intact. Neuro: Nonfocal. Diagnostic Data: His CBC is essentially within normal limits. H and H are 11.3 and 33.9, platelets are 278. His chemistries are reviewed. His potassium is slightly elevated. BUN and creatinine are elevated as expected. Ultrasound of the abdomen shows sludge in the gallbladder. Hepatobiliary scan shows patent cystic duct and sphincter of Oddi. Ejection fraction of 10%. Subjective pain reported by the patient, minimal. He had a gastric emptying nuclear medicine. It showed normal gastric empt edward study, and he has been evaluated by the Cardiology Department. Assessment: Chronic cholecystitis and biliary dyskinesia in a patient with multiple medical problems including coronary artery disease, on Plavix and aspirin. Recommendations: I discussed the case with Dr. Esqueda and. Aura. Essentially, the patient does need his gallbladder removed, however, we need to stop the Plavix for at least 5 days and aspirin for a w [facility], and then, we will remove the gallbladder. He can be discharged if he is tolerating a diet, and then, he will follow up with my office later this week, and I will schedule him for an outpatient gal lbladder surgery. The patient understands the plan and agrees, and I discussed the case with Dr. Love WYNN/NESSA Voice ID: [id number] Report ID: [id number]
--- NOTE | 2018-03-14 02:28 | PN ---
Date of Progress Note: 03/13/2018 Chief Complaint: End-stage renal disease. History Of Present Illness: The patient presented to the hospital because of abdominal pain. Today, he is feeling better, and he underwent workup with HIDA scan and is tolerating p.o. intake today. Review of Systems: Denies fever, chills. Denies chest pain. Physical Examination: Lungs: Clear to auscultation bilaterally. Heart: S1, S2. Abdomen: Soft, benign. Extremities: No edema. Laboratory Data: Hemoglobin 11.3, WBC 7.3, platelet count 278,000. Sodium 138 , potassium 5.3, chloride 105, CO2 27, BUN 48, creatinine 6.9, albumin 3.0, phosphorus 6.1. Impression And Plan: 1. End-stage renal disease. Predialysis potassium was elevated. Two potassium dialysate was used to obtain metabolic clearance and to control hyperkalemia. 2. Hypertension. Blood pressure controlled. Continue current treatment. 3. Anemia of chronic kidney disease. Hemoglobin stable. Monitor. 4. Abdominal pain. The patient is undergoing workup to rule out cholelithiasis and pancreatitis. ESTELA/NESSA Voice ID: [id number] Report ID: [id number] MARYAM
--- NOTE | 2018-03-14 04:07 | DS ---
Date of Discharge: 03/13/2018 Disposition: Discharged to go home. Physical Examination: HEENT: Unremarkable. Lungs: Clear to auscultation. Heart: Sounds normal. Abdomen: Soft. Bowel sounds normal. No guarding, rigidity, tenderness, or distention. Extremities: No leg edema. Discharge Medications/instructions: 1.Continue all prior home medications except do not take any aspirin and Plavix. 2.Follow with Dr. Yin this week on to plan for gallbladder surgery for next week. After the gallbladder surgery, patient to get instruction from Dr. Yin when he should restart his aspirin and Plavix. Hospital Course: A 52-year-old male patient came into office with complaints of nausea, vomiting. P jc see dictated H and P for more information. Lately, patient has had multiple hospital admission s for similar problem. We thought that his nausea and vomiting was due to diabetic gastroparesis. T he patient had outpatient EGD done day before his admission to the hospital by Dr. Rosenberg, but it did show some mild gastritis type of problem with 3 small gastric erosions in the antrum. This really d oes not explain his ongoing nausea, vomiting problem. His nausea, vomiting is getting bad to the ext ent that he ends up in the hospital almost on a weekly basis now. After he was admitted, he was give n IV medications for nausea, and GI consultation was requested from Dr. Rosenberg. We did abdominal ult rasound, which showed some gallbladder sludge, normal appearing bile duct, and benign-appearing renal cyst. CAT scan of the head with contrast was negative for any acute changes. Yesterday, he had a H CLEMENT scan HIDA scan which came back abnormal indicating biliary dyskinesia. With that, General Surger y was consulted. Dr. Yin from General Surgery saw him today. Cardiology was consulted for last Ca rdiology clearance in view of his acute coronary artery disease. Dr. Esqueda saw him from cardiac poi nt of view and he ordered an echocardiogram which was done today, results pending. Dr. Yin saw him from General Surgery. The patient takes aspirin and Plavix. Dr. Yin called and discussed details with me and informed me that he has discussed with die cutter apprentice about stopping aspirin and Plavix an d both of these medications will be stopped today. He took his last dose today, but we will stop it from now on and Dr. Yin will see him of this week and he will plan for gallbladder surgery for next week. He will also inform the patient when to restart aspirin and Plavix after surgery. T he patient's nausea and vomiting problem have improved during this hospitalization, and he is tolerat ing diet well and able to take his medications. His gastric emptying study that was done during this hospitalization showed no evidence of diabetic gastroparesis. Final Diagnoses: 1.Biliary dyskinesia. 2.Nausea with vomiting. 3.End-stage renal disease, on hemodialysis. 4.Coronary artery disease. 5.Hypertension. 6.Hyperlipidemia. 7.Diabetes mellitus type 2 with chronic kidney disease. 8.Anemia due to chronic kidney disease. 9.Chronic back pain. ERNESTO/MODL Voice ID: [id number] Report ID: [id number]
--- NOTE | 2018-03-14 07:29 | ECHO ---
HEIGHT: 6 ft 3 in WEIGHT: 204 lb 4.8 oz DATE OF STUDY: 03/13/[address]: 2-DIMENSIONAL: YES M.MODE: YES DOPPLER: YES COLOR FLOW: YES TDS: PORTABLE: DEFINITY: BUBBLE STUDY: DIAGNOSIS: CHEST PAIN CARDIAC HISTORY: CATHERIZATION: NO SURGERY: NO PROSTHETIC VALVE: NO PACEMAKER: NO MEASUREMENTS (cm) DIASTOLIC (NORMALS) SYSTOLIC (NORMALS) IVSd 1.2 (0.6-1.2) LA Diam 4.1 (1.9-4.0) LVEF 57% LVIDd 5.2 (3.5-5.7) LVIDs 3.7 (2.0-3.5) %FS 30% LVPWd 1.2 (0.6-1.2) Ao Diam 3.4 (2.0-3.7) 2 DIMENSIONAL ASSESSMENT: RIGHT ATRIUM: NORMAL LEFT ATRIUM: DILATED RIGHT VENTRICLE: NORMAL LEFT VENTRICLE: NORMAL TRICUSPID VALVE: NORMAL MITRAL VALVE: NORMAL PULMONIC VALVE: NORMAL AORTIC VALVE: NORMAL PERICARDIAL EFFUSION: NONE AORTIC ROOT: NORMAL LEFT VENTRICULAR WALL MOTION: NORMAL DOPPLER/COLOR FLOW: MILD MITRAL AND TRICUSPID REGURGITATION. ESTIMATED RIGHT VENTRICULAR SYSTOLIC PRESSURE 40 mmHg (MILD PULMONARY HYPERTENSION). COMMENTS: NORMAL LEFT VENTRICULAR EJECTION FRACTION. LEFT VENTRICULAR HYPERTROPHY. DILATED LEFT ATRIUM. MILD MITRAL AND TRICUSPID REGURGITATION. TECHNOLOGIST: VALERIA ROLON
--- NOTE | 2018-03-15 19:42 | P.PN ---
Subjective Date of Service: 03/12/18 Subjective: Improving (Nausea resolved on Zofran 4 mg IV q 6 hour and prn Phenergan and Reglan. CT head negative (history of UE jerking and neurology eval with [facility] 1-2 years ago).) Review of Systems 10-point ROS is otherwise unremarkable General: Weakness, Malaise Physical Examination - Vital Signs Temperature: 97.1 F Blood Pressure: 157/70 Pulse: 57 Respirations: 16 Pulse Ox (%): 96 - Physical Exam General: Alert, In no apparent distress, Oriented x3, Cooperative HEENT: Atraumatic, Normocephalic, PERRLA, EOMI Neck: Supple Respiratory: Normal air movement Cardiovascular: Normal pulses Gastrointestinal: Soft and benign, No tenderness, No rebound, No guarding Neurological: Normal speech Assessment And Plan - Current Problems (Diagnosis) (1) [id number] kidney injury Onset Date: 02/24/17 Status: Acute Qualifiers: (2) Anemia due to chronic kidney disease Onset Date: 03/14/18 Status: Acute (3) CHF (congestive heart failure) Onset Date: 06/07/17 Status: Acute Qualifiers: (4) Chronic back pain Onset Date: 03/14/18 Status: Acute (5) Diabetes mellitus with chronic kidney disease Onset Date: 03/14/18 Status: Acute (6) ESRD (end stage renal disease) Onset Date: 01/25/18 Status: Acute (7) Nausea & vomiting Onset Date: 03/03/18 Status: Acute (8) GERD (gastroesophageal reflux disease) Onset Date: 05/11/17 Status: Chronic Qualifiers: (9) HTN (hypertension) Onset Date: 02/24/17 Status: Chronic Qualifiers: (10) Hyperlipidemia Onset Date: 02/24/17 Status: Chronic Qualifiers: (11) Obesity Onset Date: 02/24/17 Status: Chronic (12) Renal insufficiency Status: Chronic - Plan REC: 1) continue scheduled Zofran and prn Phenergan 2) optimize DM control 3) PPI therapy with gastritis and erosions on EGD
== END 2018-03-13 18:48 | disposition home or self-care (01) ==
LOC: 2ND 13:41 → OBSVTOIN 03-13 15:19 → INTOOBSV 03-13 15:19
PROVIDERS: ADMIT Internal Medicine; ATTEND Internal Medicine
PROC: 5A1D70Z Performance of Urinary Filtration, Intermittent, Less than 6 Hours Per Day (ICD-10-PCS; principal; 2018-03-10)
PROC: 5A1D70Z Performance of Urinary Filtration, Intermittent, Less than 6 Hours Per Day (ICD-10-PCS; 2018-03-10)
PROC: 5A1D70Z Performance of Urinary Filtration, Intermittent, Less than 6 Hours Per Day (ICD-10-PCS; 2018-03-10)
DX: K82.8 Other specified diseases of gallbladder (principal); R11.2 Nausea with vomiting, unspecified; I13.2 Hypertensive heart and chronic kidney disease with heart failure and with stage 5 chronic kidney disease, or end stage renal disease; N18.6 End stage renal disease; I50.32 Chronic diastolic (congestive) heart failure; E11.22 Type 2 diabetes mellitus with diabetic chronic kidney disease; D63.1 Anemia in chronic kidney disease; N25.81 Secondary hyperparathyroidism of renal origin; M54.9 Dorsalgia, unspecified; I25.10 Atherosclerotic heart disease of native coronary artery without angina pectoris; Z88.2 Allergy status to sulfonamides; Z99.2 Dependence on renal dialysis
CPT/HCPCS: 36415; 70460; 76700; 78226; 78264; 80048; 80069; 81003; 81015; 82962; 85025; 90935; 93005; 93306; A9537; A9541; G0257; J2405; J2550; Q9967

== ENCOUNTER 2018-03-15 05:42 | Emergency (ER) | payer BC, OTHER ==
--- OUTSIDE RECORDS SUMMARY | 2018-03-15 05:44 | XMS REPORT | Clinical Summary ---
:1965 Author Organization [facility] Address [address] [place] [address] Phone Care Team Providers Name Role Phone [...] Bala Traore 06/15/2017 Medicine MD Nabila after 03/14/2017 Social History Tobacco Use Types Packs/Day Years Used Date Never Smoker Smokeless Tobacco: Never Used Sex Assigned at Date Recorded Not on file Last Filed Vital Signs Vital Sign Reading Time Taken Blood Pressure 124/61 06/15/2017 4:00 PM [facility] Pulse 66 06/15/2017 4:00 PM [employer] Temperature 36.3 C (97.3 F) 06/15/2017 4:00 PM [facility] [facility] Respiratory Rate 18 06/15/2017 4:00 PM [employer] Oxygen Saturation 96% 06/15/2017 4:00 PM [employer] Inhaled Oxygen Concentration - - Weight 97 kg (213 lb 12.8 oz) 06/08/2017 10:42 PM [employer] Height 190.5 cm (6' 3") 06/08/2017 10:42 PM [employer] Body Mass Index 26.72 06/08/2017 10:42 PM [facility] [facility] Plan of Treatment Not on file Implants Implanted Type Area Cat Dog Or Other Pet Groomer Device Expiration Model / Identifier Date Serial / Lot Cath Peritoneal Dyls 57cm 2cuf [id number] - Sn/A Catheter N/A: COVIDIEN: SHAZIA 02/17/2021 [id number] / Implanted: Qty: 1 on 06/14/2017 by Abdiel Ivory MD Dialysis Abdomen L N/A / Group Home [id number] Procedures Procedure Name Priority Date/Time Associated Diagnosis Comments LAPAROSCOPY,INSERT 06/14/2017 11:00 AM Renal Failure PERITONEAL CATHETER [employer] after 03/14/2017 Results RHYTHM STRIP - SCAN (07/04/2017 3:42 [...] POC-Glucose Meter 243 (H)Comment: TESTED AT [facility] [address] 70 - 110 mg/dL [facility] [address] Specimen Performing Laboratory Blood [facility] [address] [address] CBC with platelet count + automated diff [...] - 0.20 K/L Specimen Performing Laboratory Blood [facility] [address] [place] [address] CBC with platelet count + automated diff (06/15/2017 12:59 PM)Only the most recent of3 resultswithin the time period is included. Specimen Performing Laboratory Blood Narrative The following orders were created for panel order CBC with platelet count + automated diff. Procedure Abnormality Status --------- ------ CBC with platelet count ...[[id number]]AbnormalFinal result Please view results for these tests on the individual orders. Magnesium (06/15/2017 12:59 PM)Only the most recent of2 resultswithin the time period is included. Component Value Ref Range Magnesium 1.9 1.5 - 3.0 mg/dL Specimen Performing Laboratory Blood [facility] [address] [place] [address] Basic Metabolic Panel (06/15/2017 12:59 PM)Only the [...] FOR DIALYSIS PATIENTS. Specimen Performing Laboratory Blood [facility] [address] [place] [address] POC-TCO2 (06/14/2017 10:22 AM) Component Value Ref Range POC-TCO2 30 (H)Comment: TESTED AT [address] 22 - 29 meq/[place] [address] Specimen Performing Laboratory Blood [address] [address] POC-Chloride (06/14/2017 10:22 AM) Component Value Ref Range POC-Chloride 97 (L)Comment: TESTED AT [address] 98 - 107 meq/ L [place] [address] Specimen Performing Laboratory Blood [address] [address] POC-BUN (06/14/2017 10:22 AM) Component Value Ref Range POC-BUN 20Comment: TESTED AT [address] 7 - 21 mg /dL [facility] Specimen Performing Laboratory Blood [address] [address] POC-Creatinine (06/14/2017 10:22 AM) Component Value Ref Range POC-Creatinine 3.6 (H)Comment: TESTED AT [address] 0.6 - 1.3 mg/dL [place] [address] POC-EGFR 18 mL/min/1.73M2 Specimen Performing Laboratory Blood [address] [address] POCT-HEMATOCRIT (06/14/2017 10:22 AM) Component Value Ref Range POC-Hematocrit 24 (L)Comment: TESTED AT [address] 40 - 50 % [place] [address] Specimen Performing Laboratory Blood [address] [address] POCT-HEMOGLOBIN (06/14/2017 10:22 AM) Component Value Ref Range POC-Hemoglobin 8.2 (L)Comment: TESTED AT [address] 13.0 - 16.8 g/dL [place] [address] Specimen Performing Laboratory Blood [address] [address] POCT-GLUCOSE (06/14/2017 10:22 AM) Component Value Ref Range POC-Glucose 123 (H)Comment: TESTED AT [address] 70 - 110 mg/ dL [place] [address] Specimen Performing Laboratory Blood [address] [address] POC-Sodium (06/14/2017 10:22 AM) Component Value Ref Range POC-Sodium 138Comment: [address]ED [address] [facility] 135 - 148 meq/L [place] [address] Specimen Performing Laboratory Blood [facility] [address] [place] [address] POC-Potassium (06/14/2017 10:22 AM) Component Value Ref Range POC-Potassium 3.6Comment: TESTED AT [facility] [address] 3.6 - 5.5 meq/[place] [address] Specimen Performing Laboratory Blood [facility] [address] [place] [address] TRANSFUSION SERVICE REPORT - SCAN (06/13/2017 5:30 PM)ECHOCARDIOGRAM REPORT - SCAN (06/13/2017 2:20 PM)2D Echo W/Doppler(CW/PW/Color) (06/13/2017 7:42 AM) Component Value Ref Range Ejection Fraction Specimen Performing Laboratory [facility] ECHO HEART[facility] MKCKESSON CPACS Narrative Transthoracic Echocardiography Report (TTE) Demographics Patient Name YUSUF DARBY Date of Study 06/13/2017 [id number] Male Visit Number [id number] Accession Number [id number] Room Number B432 Date of Birth1965Referring Physician Age52 year(s)Smalltalk Developer Clementina Seymour [facility] Interpreting Murphy Hartley MD Physician Procedure [...] External Ris In - 06/13/2017 1:51 PM [employer] [facility] Transthoracic Echocardiography Report (TTE) Demographics Patient Name YUSUF DARBY Date of Study 06/13/2017 Gender Male Visit Number [id number] Race Unknown Accession Number [id number] Room Number B432 Date of 1965 Referring Physician Age 52 year(s) Smalltalk Developer Clementina Seymour [facility] Interpreting Murphy Hartley MD Physician Procedure [...] INR 1.0 <=5.9 Specimen Performing Laboratory Blood [facility] [address] [place] [address] Narrative RECOMMENDED COUMADIN/WARFARIN INR THERAPY RANGES STANDARD DOSE: 2.0 - 3.0 Includes: PROPHYLAXIS for venous thrombosis, systemic embolization; TREATMENT for venous thrombosis and/or pulmonary embolus. HIGH RISK: Target INR is 2.5-3.5 for patients with mechanical heart valves. Type and screen ([facility]) (06/12/2017 3:29 PM) Component Value Ref Range Ab Scrn NEGATIVE ABO Grouping A Rh Factor POS Specimen Performing Laboratory Blood [facility] [place] [address] [place] [address] TSH (06/12/2017 3:29 PM) Component Value Ref Range TSH 2.09 0.35 - 5.50 uIU/mL Specimen Performing Laboratory Blood [facility] [address] [place] [address] Comprehensive metabolic panel (06/12/2017 3:29 PM) Component [...] FOR DIALYSIS PATIENTS. Specimen Performing Laboratory Blood [facility] [address] [place] [address] XR chest 1 view portable / bedside [...] MD Report Verified Date/Time:06/10/2017 08:49:42 Reading Location: [facility] Radiology Reading Room Procedure Note Interface, External Ris In - 06/10/2017 8:51 AM [employer] FINAL REPORT TECHNIQUE: Frontal chest radiograph dated [...] Report Verified Date/Time: 06/10/2017 08:49:42 Reading Location: [facility] Radiology Reading Room Hepatitis B core antibody, total (06/10/2017 8:13 AM) Component Value Ref Range Hep B Core Total Ab Nonreactive Nonreactive Specimen Performing Laboratory Blood - Arm, Left [address] [address] Hepatitis B surface antibody (06/09/2017 7:06 PM) Component Value Ref Range Hep B S Ab <8.0 <8.0 mIU/mL Specimen Performing Laboratory Blood - Central Venous Line [address] [address] Hepatitis B surface antigen (06/09/2017 7:06 PM) Component Value Ref Range hepatitis B Surface Ag Nonreactive Nonreactive Specimen Performing Laboratory Blood - Central Venous Line [facility] [address] [place] [address] IR Tunneled Catheter Insertion (06/09/2017 11:45 AM) Specimen Performing Laboratory GE RIS Narrative FINAL REPORT Tunneled central venous catheter insertion. History: End-stage renal disease Modality: Sonography and fluoroscopy. Sedation: Moderate sedation was administered. 2 mg of Versed [id number] mcg of fentanyl IV was used for moderate sedation monitored under my direction. Total intra-service time of sedation [id number]. The patient's vital signs were monitored throughout the procedure and recorded in the patient's medical record by the nurse. Coke Loader:Onesimo Lopez MD. Home Care Coordinator:None. Approach: Right internal jugular vein Estimated [...] needle into the right atrium. A 4 Honduran micropuncture sheath was placed.A subcutaneous tunnel was created in the right anterior chest wall by blunt dissection.A 19 cm tipped cuff 15.5 [place] Duraflow 2 catheter was brought through the [...] MD Report Verified Date/Time:06/09/2017 12:13:36 Reading Location: [facility] Radiology Reading Room Procedure Note Interface, External Ris In - 06/09/2017 12:21 PM [employer] FINAL REPORT Tunneled central venous catheter insertion. [...] the patient's medical record by the nurse. Coke Loader: Onesimo Lopez MD. Home Care Coordinator: None. Approach: Right internal jugular vein [...] needle into the right atrium. A 4 Honduran micropuncture sheath was placed. A subcutaneous tunnel was created in the right anterior chest wall by blunt dissection. A 19 cm tipped cuff 15.5 [place] Duraflow 2 catheter was brought through the [...] Report Verified Date/Time: 06/09/2017 12:13:36 Reading Location: [facility] Radiology Reading Room /aPTT (06/09/2017 5:15 AM) Component Value Ref Range Protime 10.7 9.3 - 12.0 seconds INR 1.0 <=5.9 PTT 28.5 23.0 - 35.0 seconds Specimen Performing Laboratory Blood - Arm, [facility] [address] [place] [address] Narrative RECOMMENDED COUMADIN/WARFARIN INR THERAPY RANGES STANDARD DOSE: 2.0 - 3.0 Includes: PROPHYLAXIS for venous thrombosis, systemic embolization; TREATMENT for venous thrombosis and/or pulmonary embolus. HIGH RISK: Target INR is 2.5-3.5 for patients with mechanical heart valves. Phosphorus (06/09/2017 5:15 AM) Component Value Ref Range Phosphorus 4.1 2.5 - 4.5 mg/dL Specimen Performing Laboratory Blood - Arm, [facility] [address] [place] [address] Hepatic function panel (06/09/2017 5:15 AM) Component Value Ref Range Protein, Total 6.3 6.0 - 8.5 gm/dL Albumin 3.2 (L) 3.5 - 5.0 g/dL Total Bilirubin 0.4 0.1 - 1.2 mg/dL Bilirubin, Direct 0.2 0.0 - 0.4 mg/dL Alkaline Phosphatase 67 30 - 115 U/L AST 13 5 - 40 U/L ALT 10 5 - 50 U/L Specimen Performing Laboratory Blood - Arm, [facility] [address] [place] [address] after 03/14/2017
--- OUTSIDE RECORDS SUMMARY | 2018-03-15 05:44 | XMS REPORT | Clinical Summary ---
:1965 Author Organization [place] [facility] Address [address] [place] [address] Care Team Providers Name Role Phone Garo [...] Noted Date End-stage renal disease on hemodialysis ([facility]) 08/25/2017 Resolved Problems Problem Noted Date Resolved Date Breakdown of intraperitoneal dialysis catheter, init ([facility]) 08/25/20172017 Abdominal pain 07/17/2017 07/19/2017 Encounters Date Type Specialty Care Team Description 09/15/2017 Office Visit General Surgery [place], Surgery follow-up Abdiel Davis MD (Primary Dx) 08/25/2017 Hospital Encounter General Surgery Abdiel Ivory MD 08/25/2017 Procedure Pass General Surgery 08/25/2017 Surgery General Surgery [place], OPEN PERITONEAL Abdiel Davis MD DIALYSIS CATHETER REMOVAL 08/23/2017 Pre-Admit Testing Pre-Admission [place], Preop testing Appointment Testing Abdiel Davis MD (Primary Dx) 08/23/2017 Anesthesia Event General Surgery Jason Eugene, KRISTIAN 07/17/2017 - Emergency General Internal Kevin Chavez Abdominal pain, unspecified abdominal location (Primary Dx); 07/19/2017 Robert Ortiz MD End stage renal disease; Paulina Kendrick Peritoneal dialysis catheter in place MD Frank after 03/14/2017 Immunizations Name Dates Previously Given Next Due [...] Routine 07/19/2017 7:48 AM Results for this CONTRACT ASSOCIATE MANAGER procedure are in the results section. POC GLUCOSE Routine 07/18/2017 8:52 PM Results for this CONTRACT ASSOCIATE MANAGER procedure are in the results section. NM GASTRIC EMPTYING Routine 07/18/2017 5:06 PM Results for this CONTRACT ASSOCIATE MANAGER procedure are in the results section. POC GLUCOSE Routine 07/18/2017 4:15 PM Results for this CONTRACT ASSOCIATE MANAGER procedure are in the results section. CELL COUNT AND Routine 07/18/2017 10:00 AM Results for this DIFFERENTIAL, BODY FLUID CONTRACT ASSOCIATE MANAGER procedure are in the results section. FUNGUS SMEAR Routine 07/18/2017 10:00 AM Results for this CONTRACT ASSOCIATE MANAGER procedure are in the results section. GRAM STAIN Routine 07/18/2017 10:00 AM Results for this CONTRACT ASSOCIATE MANAGER procedure are in the results section. FUNGUS CULTURE Routine 07/18/2017 10:00 AM Results for this CONTRACT ASSOCIATE MANAGER procedure are in the results section. ANAEROBIC CULTURE Routine 07/18/2017 10:00 AM Results for this CONTRACT ASSOCIATE MANAGER procedure are in the results section. AEROBIC CULTURE Routine 07/18/2017 10:00 AM Results for this CONTRACT ASSOCIATE MANAGER procedure are in the results section. CT ABDOMEN PELVIS WO Routine 07/18/2017 9:02 AM Results for this CONTRAST CONTRACT ASSOCIATE MANAGER procedure are in the results section. LACTIC ACID LEVEL, Timed 07/18/2017 4:11 AM Results for this SEPSIS - NOW AND REPEAT CONTRACT ASSOCIATE MANAGER procedure are in 2X EVERY 3 HOURS the results section. LACTIC ACID LEVEL, Timed 07/17/2017 8:30 PM Results for this SEPSIS - NOW AND REPEAT CONTRACT ASSOCIATE MANAGER procedure are in 2X EVERY 3 HOURS the results section. ZZESTIMATED GFR STAT 07/17/2017 4:55 PM Results for this CONTRACT ASSOCIATE MANAGER procedure are in the results section. LIPASE LEVEL STAT 07/17/2017 4:55 PM Results for this CONTRACT ASSOCIATE MANAGER procedure are in the results section. COMPREHENSIVE METABOLIC STAT 07/17/2017 4:55 PM Results for this PANEL CONTRACT ASSOCIATE MANAGER procedure are in the results section. LACTIC ACID LEVEL, STAT 07/17/2017 4:55 PM Results for this SEPSIS - NOW AND REPEAT CONTRACT ASSOCIATE MANAGER procedure are in 2X EVERY 3 HOURS the results section. HC COMPLETE BLD COUNT STAT 07/17/2017 4:55 PM Results for this W/AUTO DIFF CONTRACT ASSOCIATE MANAGER procedure are in the results section. BLOOD CULTURE, AEROBIC & Routine 07/17/2017 4:55 PM Results for this ANAEROBIC CONTRACT ASSOCIATE MANAGER procedure are in the results section. BLOOD CULTURE, AEROBIC & Routine 07/17/2017 4:50 PM Results for this ANAEROBIC CONTRACT ASSOCIATE MANAGER procedure are in the results section. after 03/14/2017 Results POC glucose (08/25/2017 8:40 AM)Only the most recent of4 resultswithin the time period is included. POC glucose 152 (H) 65 - 99 mg/dL [facility] DEPARTMENT OF PATHOLOGY AND Comment: GENOMIC MEDICINE RN Notified Meter ID: [id number] Analysis Internship: Boogie Blackburn Performing Organization Address City/State/Zipcode Phone Number [facility] DEPARTMENT OF PATHOLOGY [address] [facility] [place] [address] AND [employer] MEDICINE POC panel 4 (08/25/2017 6:59 AM) POC sodium 138 135 - 148 meq/L [facility] DEPARTMENT OF PATHOLOGY AND GENOMIC MEDICINE POC potassium 3.7 3.5 - 5.0 meq/L [facility] DEPARTMENT OF PATHOLOGY AND GENOMIC MEDICINE POC hematocrit 36 (L) 41 - 51 % [facility] DEPARTMENT OF PATHOLOGY AND GENOMIC MEDICINE POC glucose 155 (H) 65 - 99 mg/dL [facility] DEPARTMENT OF PATHOLOGY AND GENOMIC MEDICINE POC hemoglobin 12.2 (L) 14.0 - 18.0 g/dL [facility] DEPARTMENT OF PATHOLOGY AND GENOMIC MEDICINE Specimen Blood Performing Organization Address [facility] Phone Number [facility] OF [address] [employer] [facility] Estimated GFR (08/25/2017 6:47 AM)Only the most recent of2 resultswithin the time period is included. GFR Non Af Amer 18 (A) mL/min/1.73 m2 [facility] DEPARTMENT OF PATHOLOGY AND [employer] [facility] GFR Af Amer 22 (A) mL/min/1.73 m2 [facility] DEPARTMENT OF Comment: PATHOLOGY AND [facility] Chronic kidney disease: <60 mL/min/1.73m2 MEDICINE Kidney [...] Americans. Specimen Plasma specimen Performing Organization Address [facility] Phone Number [facility] OF [address] [employer] [facility] Basic metabolic panel (08/25/2017 6:47 AM) Sodium 138 135 - 148 mEq/L [facility] DEPARTMENT OF PATHOLOGY AND GENOMIC MEDICINE Potassium 3.9 3.5 - 5.0 mEq/L [facility] DEPARTMENT OF PATHOLOGY AND GENOMIC MEDICINE Chloride 100 98 - 112 mEq/L [facility] DEPARTMENT OF PATHOLOGY AND GENOMIC MEDICINE CO2 26 24 - 31 mEq/L [facility] DEPARTMENT OF PATHOLOGY AND GENOMIC MEDICINE Anion gap 12 7 - 15 mEq/L [facility] DEPARTMENT OF Comment: PATHOLOGY AND GENOMIC Starting from September , anion gap calculation MEDICINE no longer incorporates potassium. Please note the change. BUN 29 (H) 6 - 20 mg/dL [facility] DEPARTMENT OF PATHOLOGY AND GENOMIC MEDICINE Creatinine 3.6 (H) 0.7 - 1.2 mg/dL [facility] DEPARTMENT OF PATHOLOGY AND GENOMIC MEDICINE Glucose 159 (H) 65 - 99 mg/dL [facility] DEPARTMENT OF PATHOLOGY AND GENOMIC MEDICINE Calcium 9.2 8.3 - 10.2 mg/dL [facility] DEPARTMENT OF PATHOLOGY AND GENOMIC MEDICINE Specimen Plasma specimen Performing Organization Address City/State/Zipcode Phone Number [facility] DEPARTMENT OF PATHOLOGY [address] [place] [address] AND GENOMIC MEDICINE CBC with platelet and differential (08/23/2017 12:26 PM)Only the most recent of2 resultswithin the time period is included. WBC 6.9 4.5 - 11.0 k/uL [facility] DEPARTMENT OF PATHOLOGY AND GENOMIC MEDICINE RBC 3.16 (L) 4.40 - 6.00 m/uL [facility] DEPARTMENT OF PATHOLOGY AND GENOMIC MEDICINE HGB 8.6 (L) 14.0 - 18.0 g/dL [facility] DEPARTMENT OF PATHOLOGY AND GENOMIC MEDICINE HCT 27.4 (L) 41.0 - 51.0 % [facility] DEPARTMENT OF PATHOLOGY AND GENOMIC MEDICINE MCV 86.7 82.0 - 100.0 fL [facility] DEPARTMENT OF PATHOLOGY AND GENOMIC MEDICINE MCH 27.2 27.0 - 34.0 pg [facility] DEPARTMENT OF PATHOLOGY AND GENOMIC MEDICINE MCHC 31.4 31.0 - 37.0 g/dL [facility] DEPARTMENT OF PATHOLOGY AND GENOMIC MEDICINE RDW - SD 52.3 37.0 - 55.0 fL [facility] DEPARTMENT OF PATHOLOGY AND GENOMIC MEDICINE MPV 9.1 6.9 - 11.0 fL [facility] DEPARTMENT OF PATHOLOGY AND GENOMIC MEDICINE Platelet count 273 150 - 400 K/uL [facility] DEPARTMENT OF PATHOLOGY AND GENOMIC MEDICINE Nucleated RBC 0.00 /100 WBC [facility] DEPARTMENT OF PATHOLOGY AND GENOMIC MEDICINE Neutrophils 63.7 39.0 - 69.0 % [facility] DEPARTMENT OF PATHOLOGY AND GENOMIC MEDICINE Lymphocytes 18.6 (L) 25.0 - 45.0 % [facility] DEPARTMENT OF PATHOLOGY AND GENOMIC MEDICINE Monocytes 12.3 (H) 0.0 - 10.0 % [facility] DEPARTMENT OF PATHOLOGY AND GENOMIC MEDICINE Eosinophils 4.0 0.0 - 5.0 % [facility] DEPARTMENT OF PATHOLOGY AND GENOMIC MEDICINE Basophils 0.7 0.0 - 1.0 % [facility] DEPARTMENT OF PATHOLOGY AND GENOMIC MEDICINE Immature granulocytes 0.7 0.0 - 1.0 % [facility] DEPARTMENT OF PATHOLOGY AND GENOMIC MEDICINE Specimen Blood Performing Organization Address City/[facility] Phone Number [facility] DEPARTMENT OF PATHOLOGY [address] [place] [address] AND GENOMIC MEDICINE ECG Pre/Post Op (08/23/2017 11:23 AM) Ventricular rate 54 [facility] Atrial rate 54 [facility] MA interval 176 [facility] QRSD interval 88 [facility] QT interval 492 [facility] QTC interval 466 [facility] P axis 1 5 [facility] QRS axis 1 10 [facility] T wave axis 140 [facility] EKG impression Sinus bradycardia-T wave abnormality, [facility] MUSE consider lateral ischemia-Prolonged QT-Abnormal ECG-No previous ECGs available- Performing Organization Address [facility] Phone Number [facility] MUSE [address] [place] [address] NM Gastric Emptying (07/18/2017 5:06 PM) Narrative Performed At Procedure:NM GASTRIC EMPTYING [facility] Clinical History:ABDOMINAL PAIN Technique 0.8 millicuries of [id number] colloid were mixed with an egg and cooked. The egg was fed to the patient and dynamic imaging of the abdomen in the anterior and posterior projections was performed for 90 minutes. Quantification of gastric emptying was performed using the geometric mean of the anterior and posterior projections. FINDINGS: Gastric emptying half time=53 minutes (normal is <100 minutes). IMPRESSION: Normal gastric emptying. [facility]-[id number] Procedure Note Interface, Radiology Results Incoming - 07/18/2017 5:20 PM CONTRACT ASSOCIATE MANAGER Procedure: NM GASTRIC EMPTYING Clinical History: ABDOMINAL PAIN Technique 0.8 millicuries of [id number] colloid were mixed with an egg and cooked. The egg was fed to the patient and dynamic imaging of the abdomen in the anterior and posterior projections was performed for 90 minutes. Quantification of gastric emptying was performed using the geometric mean of the anterior and posterior projections. FINDINGS: Gastric emptying half time=53 minutes (normal is <100 minutes). IMPRESSION: Normal gastric emptying. [facility]-[id number] Performing Organization Address [facility] Phone Number [facility] [address] [place] [address] Fungus smear (07/18/2017 10:00 AM) Fungus smear No fungi observed. [facility] DEPARTMENT OF PATHOLOGY Comment: AND GENOMIC MEDICINE Specimen Information Specimen Source: Peritoneal fluid Specimen Site: Peritoneal Specimen Peritoneal fluid - Peritoneal Performing Organization Address [facility] Phone Number [facility] DEPARTMENT OF PATHOLOGY AND [address] [place] [phone] GENOMIC MEDICINE Aerobic culture (07/18/2017 10:00 AM) Aerobic culture isolate No growth after 3 days. [facility] DEPARTMENT OF Comment: PATHOLOGY AND GENOMIC Specimen Information MEDICINE Specimen Source: Peritoneal fluid Specimen Site: Peritoneal Specimen Peritoneal fluid - Peritoneal Performing Organization Address [facility] Phone Number [facility] DEPARTMENT OF PATHOLOGY AND [address] [place], [place] [phone] [facility] Gram stain (07/18/2017 10:00 AM) Gram stain isolate Rare WBC's [facility] DEPARTMENT OF PATHOLOGY No organisms seen AND GENOMIC MEDICINE Comment: Specimen Information Specimen Source: Peritoneal fluid Specimen Site: Peritoneal Specimen Peritoneal fluid - Peritoneal Performing Organization Address [facility] Phone Number [facility] DEPARTMENT OF PATHOLOGY AND [address] [place] [address] MEDICINE Fungus culture (07/18/2017 10:00 AM) Fungus culture isolate No growth after 4 weeks of incubation. [facility] DEPARTMENT OF Comment: PATHOLOGY AND GENOMIC Specimen Information MEDICINE Specimen Source: Peritoneal fluid Specimen Site: Peritoneal Specimen Peritoneal fluid - Peritoneal Performing Organization Address [facility] Phone Number [facility] DEPARTMENT OF PATHOLOGY AND [address] [place], [place] [phone] [employer] MEDICINE Anaerobic culture (07/18/2017 10:00 AM) Anaerobic culture No anaerobic organisms isolated. [facility] DEPARTMENT OF isolate Comment: PATHOLOGY AND GENOMIC Specimen Information MEDICINE Specimen Source: Peritoneal fluid Specimen Site: Peritoneal Specimen Peritoneal fluid - Peritoneal Performing Organization Address [facility] Phone Number [facility] DEPARTMENT OF PATHOLOGY AND [address] [place] [address] GENOMIC MEDICINE Cell count and differential, body fluid (07/18/2017 10:00 AM) [facility] fluid type PD fluid [facility] DEPARTMENT OF PATHOLOGY AND GENOMIC MEDICINE Color, fluid Colorless [facility] DEPARTMENT OF PATHOLOGY AND GENOMIC MEDICINE Appearance, fluid Clear [facility] DEPARTMENT OF PATHOLOGY AND GENOMIC MEDICINE RBC, fluid SEE COMMENTComment: 1+ (0 - /CMM [facility] DEPARTMENT OF 500 RBC/CMM) PATHOLOGY AND GENOMIC MEDICINE Nucleated cells, fluid 29 /CMM [facility] DEPARTMENT OF PATHOLOGY AND GENOMIC MEDICINE Fluid mononuclear cell SEE COMMENT [facility] DEPARTMENT OF Comment: PATHOLOGY AND GENOMIC Footnote--------- MEDICINE Unable to perform differential due to very low count. Specimen Fluid Performing Organization Address City/State/Zipcode Phone Number [facility] DEPARTMENT OF PATHOLOGY [address] [place] [address] Abdomen Pelvis Wo [...] renal calyceal stones are present without hydronephrosis. [id number] Procedure Note Interface, Radiology Results Incoming - 07/18/2017 9:14 AM CONTRACT ASSOCIATE MANAGER EXAMINATION: CT ABDOMEN PELVIS WO CONTRAST [...] renal calyceal stones are present without hydronephrosis. [id number] Performing Organization Address [facility] Phone Number [address] [address] Lactic acid level, SEPSIS - Now and repeat 2x every 3 hours (07/18/2017 4:11 AM )Only the most recent of3 resultswithin the time period is included. Lactic acid 0.6 0.5 - 2.2 mmol/L [facility] DEPARTMENT OF PATHOLOGY AND GENOMIC MEDICINE Specimen Plasma specimen Performing Organization Address [facility] Phone Number [facility] DEPARTMENT OF PATHOLOGY [address] [place] [address] AND [facility] MEDICINE Blood culture, aerobic & anaerobic (07/17/2017 4:55 PM)Only the most recent of2 resultswithin the time period is included. Blood culture isolate No growth after 5 days of incubation. [facility] DEPARTMENT OF Comment: PATHOLOGY AND GENOMIC Specimen Information MEDICINE Specimen Source: Blood Specimen Site: Hand, right Specimen Blood - Hand, right Performing Organization Address [facility] Phone Number [facility] DEPARTMENT OF PATHOLOGY AND [address] [place] [phone] [facility] MEDICINE Lipase level (07/17/2017 4:55 PM) Lipase 48 13 - 60 U/L [facility] DEPARTMENT OF PATHOLOGY AND GENOMIC MEDICINE Specimen Plasma specimen Performing Organization Address City/[facility] Phone Number [facility] DEPARTMENT OF PATHOLOGY [id number] [place], [place] [address] [address] AND [employer] [facility] Comprehensive metabolic panel (07/17/2017 4:55 PM) Sodium 134 (L) 135 - 148 mEq/L [facility] DEPARTMENT OF PATHOLOGY AND GENOMIC MEDICINE Potassium 4.6 3.5 - 5.0 mEq/L [facility] DEPARTMENT OF PATHOLOGY AND GENOMIC MEDICINE Chloride 96 (L) 98 - 112 mEq/L [facility] DEPARTMENT OF PATHOLOGY AND GENOMIC MEDICINE CO2 25 24 - 31 mEq/L [facility] DEPARTMENT OF PATHOLOGY AND GENOMIC MEDICINE Anion gap 13 7 - 15 mEq/L [facility] DEPARTMENT OF Comment: PATHOLOGY AND GENOMIC Starting from September , anion gap calculation MEDICINE no longer incorporates potassium. Please note the change. BUN 22 (H) 6 - 20 mg/dL [facility] DEPARTMENT OF PATHOLOGY AND GENOMIC MEDICINE Creatinine 3.8 (H) 0.7 - 1.2 mg/dL [facility] DEPARTMENT OF PATHOLOGY AND GENOMIC MEDICINE Glucose 138 (H) 65 - 99 mg/dL [facility] DEPARTMENT OF PATHOLOGY AND GENOMIC MEDICINE Calcium 8.7 8.3 - 10.2 mg/dL [facility] DEPARTMENT OF PATHOLOGY AND GENOMIC MEDICINE Protein 6.8 6.3 - 8.3 g/dL [facility] DEPARTMENT OF PATHOLOGY AND GENOMIC MEDICINE Albumin 2.8 (L) 3.5 - 5.0 g/dL [facility] DEPARTMENT OF PATHOLOGY AND GENOMIC MEDICINE A/G ratio 0.7 0.7 - 3.8 [facility] DEPARTMENT OF PATHOLOGY AND GENOMIC MEDICINE Alkaline phosphatase 69 40 - 129 U/L [facility] DEPARTMENT OF PATHOLOGY AND GENOMIC MEDICINE AST 20 10 - 50 U/L [facility] DEPARTMENT OF PATHOLOGY AND GENOMIC MEDICINE ALT 6 5 - 50 U/L [facility] DEPARTMENT OF PATHOLOGY AND GENOMIC MEDICINE Total bilirubin <0.2 0.2 - 1.2 mg/dL [facility] DEPARTMENT OF PATHOLOGY AND GENOMIC MEDICINE Specimen Plasma specimen Performing Organization Address City/State/Zipcode Phone Number [facility] DEPARTMENT OF PATHOLOGY [address] [facility] [place] [address] AND [employer] MEDICINE after 03/14/2017 Insurance Payer Benefit Plan / Group Subscriber ID Type Phone Address [facility] AVNI CARCAMO xxxxxxxxxxxx PPO MEDICARE MEDICARE PART A AND B xxxxxxxxxx Medicare [place], [place] +8-[facility]-[phone] [place], [place] [phone]
--- OUTSIDE RECORDS SUMMARY | 2018-03-15 05:45 | XMS REPORT ---
:1965 [facility] Address [address] [place] [address] [address]. [address] [place] [address] Care Team Providers Name Role Phone DWIGHT [...] (BEAKER) (test 243 mg/dL 70-110 TESTED AT [facility] [address] [place] [address] qkmh=0596) [address] [facility] [address] BASIC METABOLIC [id number] 13:51:00 Test Item Value Reference Range Comments SODIUM (BEAKER) (test 139 meq/L 135-148 rqzh=357) POTASSIUM (BEAKER) (test 3.4 meq/L 3.6-5.5 bwsc=928) CHLORIDE (BEAKER) (test 101 meq/L 98-106 nabe=403) CO2 (BEAKER) (test 29 meq/L 20-29 twaw=762) BLOOD UREA NITROGEN 11 mg/dL 10-26 (BEAKER) (test zcrw=118) CREATININE (BEAKER) (test 2.10 mg/dL 0.50-1.20 pfbz=403) GLUCOSE RANDOM (BEAKER) 157 mg/dL 70-110 (test jkiu=615) CALCIUM (BEAKER) (test 8.6 mg/dL 8.5-10.5 jzwo=923) EGFR (BEAKER) (test 33 mL/min/1.73 sq m ESTIMATED GFR IS NOT hotl=2536) ACCURATE CREATININE CLEARANCE IN PREDICTING GLOMERULAR FILTRATION RATE. ESTIMATED GFR IS NOT APPLICABLE FOR DIALYSIS PATIENTS. [id number] 13:44:00 Test Item Value Reference Range Comments MAGNESIUM (BEAKER) (test psdc=970) 1.9 mg/dL 1.5-3.0 CBC W/PLT COUNT & AUTO [id number] 13:34:00 Test Item Value Reference Range Comments WHITE BLOOD CELL COUNT (BEAKER) (test jtao=931) 6.8 K/ L 4.0-10.0 RED BLOOD CELL COUNT (BEAKER) (test hjma=753) 2.92 M/ L 4.20-5.80 HEMOGLOBIN (BEAKER) (test nwqa=997) 8.4 GM/DL 13.0-16.8 HEMATOCRIT (BEAKER) (test qslw=076) 25.5 % 40.0-50.0 MEAN CORPUSCULAR VOLUME (BEAKER) (test dlbq=975) 87.4 fL 82.0-98.0 MEAN CORPUSCULAR HEMOGLOBIN (BEAKER) (test 28.7 pg 27.0-33.0 noiz=695) MEAN CORPUSCULAR HEMOGLOBIN CONC (BEAKER) (test 32.8 GM/DL 32.0-36.0 apoy=983) RED CELL DISTRIBUTION WIDTH (BEAKER) (test 14.7 % 10.3-14.2 dltg=707) PLATELET COUNT (BEAKER) (test izaw=581) 299 K/CU MM 150-430 MEAN PLATELET VOLUME (BEAKER) (test gpoq=122) 6.9 fL 6.5-10.5 NUCLEATED RED BLOOD CELLS (BEAKER) (test 0 /100 WBC 0-0 qcja=344) NEUTROPHILS RELATIVE PERCENT (BEAKER) (test 65 % ybos=516) LYMPHOCYTES RELATIVE PERCENT (BEAKER) (test 18 % cgie=454) MONOCYTES RELATIVE PERCENT (BEAKER) (test 14 % lmsp=861) EOSINOPHILS RELATIVE PERCENT (BEAKER) (test 3 % wspc=562) BASOPHILS RELATIVE PERCENT (BEAKER) (test 1 % kspf=120) NEUTROPHILS ABSOLUTE COUNT (BEAKER) (test 4.40 K/ L 1.80-8.00 qmwb=483) LYMPHOCYTES ABSOLUTE COUNT (BEAKER) (test 1.20 K/ L 1.48-4.50 cbuw=987) MONOCYTES ABSOLUTE COUNT (BEAKER) (test 1.00 K/ L 0.00-1.30 pnwj=273) EOSINOPHILS ABSOLUTE COUNT (BEAKER) (test 0.20 K/ L 0.00-0.50 qhnv=000) BASOPHILS ABSOLUTE COUNT (BEAKER) (test 0.00 K/ L 0.00-0.20 gdai=313) POCT-GLUCOSE [id number] 11:28:00 Test Item Value Reference Range Comments POC-GLUCOSE METER (BEAKER) 147 mg/dL 70-110 TESTED AT [address] (test gfep=8533) [facility] [address] POCT-GLUCOSE [id number] 06:04:00 Test Item Value Reference Range Comments POC-GLUCOSE METER (BEAKER) 137 mg/dL 70-110 TESTED AT [address] (test asjb=3802) [place] [address] POCT-GLUCOSE [id number] 21:01:00 Test Item Value Reference Range Comments POC-GLUCOSE METER (BEAKER) 138 mg/dL 70-110 TESTED AT [address] (test cgkh=6816) [place] [address] POCT-GLUCOSE [id number] 16:06:00 Test Item Value Reference Range Comments POC-GLUCOSE METER (BEAKER) 167 mg/dL 70-110 TESTED AT [address] (test vipu=3428) [place] [address] POCT-GLUCOSE [id number] 12:49:00 Test Item Value Reference Range Comments POC-GLUCOSE METER (BEAKER) 144 mg/dL 70-110 TESTED AT [address] (test yjwd=9449) [place] [address] [id number] 10:27:00 Test Item Value Reference Range Comments POC-CREATININE (BEAKER) 3.6 mg/dL 0.6-1.3 TESTED AT [address] (test xnnk=5199) [place] [address] POC-EGFR (BEAKER) (test 18 mL/min/1.73M2 esuq=0367) [id number] 10:27:00 Test Item Value Reference Range Comments POC-SODIUM (BEAKER) (test 138 meq/L 135-148 TESTED AT [address] ngzp=9092) [place] [address] [id number] 10:27:00 Test Item Value Reference Range Comments POC-POTASSIUM (BEAKER) 3.6 meq/L 3.6-5.5 TESTED AT [address] (test vjwb=3169) [place] [address] [id number] 10:27:00 Test Item Value Reference Range Comments POC-BUN (BEAKER) (test 20 mg/dL 7-21 TESTED AT [address] zzks=1926) [place] [address] [id number] 10:27:00 Test Item Value Reference Range Comments POC-CHLORIDE (BEAKER) (test 97 meq/L 98-107 TESTED AT [address] mlrp=5196) [place] [address] [id number] 10:27:00 Test Item Value Reference Range Comments POC-GLUCOSE (BEAKER) (test 123 mg/dL 70-110 TESTED AT [address] xyym=5863) [place] [address] [id number] 10:27:00 Test Item Value Reference Range Comments POC-HEMATOCRIT (BEAKER) (test 24 % 40-50 TESTED AT [address] brnj=8495) [place] [address] [id number] 10:27:00 Test Item Value Reference Range Comments POC-HEMOGLOBIN (BEAKER) 8.2 g/dL 13.0-16.8 TESTED AT [address] (test birw=7667) [place] [address] [id number] 10:27:00 Test Item Value Reference Range Comments POC-TCO2 (BEAKER) (test 30 meq/L 22-29 TESTED AT [address] afgs=9061) [place] [address] POCT-GLUCOSE [id number] 06:08:00 Test Item Value Reference Range Comments POC-GLUCOSE METER (BEAKER) 163 mg/dL 70-110 TESTED AT [address] (test iqai=7493) [place] [address] POCT-GLUCOSE [id number] 21:07:00 Test Item Value Reference Range Comments POC-GLUCOSE METER (BEAKER) 132 mg/dL 70-110 TESTED AT [facility] [address] [place] [address] (test xnqs=9537) [facility] [address] POCT-GLUCOSE [id number] 12:58:00 Test Item Value Reference Range Comments POC-GLUCOSE METER (BEAKER) 178 mg/dL 70-110 TESTED AT [facility] [address] [place] [address] (test qysp=1937) [facility] [address] POCT-GLUCOSE [id number] 05:29:00 Test Item Value Reference Range Comments POC-GLUCOSE METER (BEAKER) 171 mg/dL 70-110 TESTED AT [address] (test yrmt=0644) [facility] [address] POCT-GLUCOSE [id number] 22:03:00 Test Item Value Reference Range Comments POC-GLUCOSE METER (BEAKER) 249 mg/dL 70-110 TESTED AT [address] (test gjhj=1422) [facility] [address] POCT-GLUCOSE [id number] 16:45:00 Test Item Value Reference Range Comments POC-GLUCOSE METER (BEAKER) 213 mg/dL 70-110 TESTED AT [address] (test dhxx=7038) [facility] [address] [id number] 16:43:00 Test Item Value Reference Range Comments THYROID STIMULATING HORMONE (BEAKER) (test 2.09 uIU/mL 0.35-5.50 nbuq=144) COMPREHENSIVE METABOLIC [id number] 16:24:00 Test Item Value Reference Range Comments TOTAL PROTEIN (BEAKER) 7.2 gm/dL 6.0-8.5 (test zogm=469) ALBUMIN (BEAKER) (test 3.5 g/dL 3.5-5.0 ttyj=6980) ALKALINE PHOSPHATASE 67 U/L 30-115 (BEAKER) (test icze=453) BILIRUBIN TOTAL (BEAKER) 0.3 mg/dL 0.1-1.2 (test bydj=540) SODIUM (BEAKER) (test 136 meq/L 135-148 jqwb=740) POTASSIUM (BEAKER) (test 4.1 meq/L 3.6-5.5 vsxl=333) CHLORIDE (BEAKER) (test 98 meq/L 98-106 risp=133) CO2 (BEAKER) (test 26 meq/L 20-29 yeuw=775) BLOOD UREA NITROGEN 32 mg/dL 10-26 (BEAKER) (test emuh=095) CREATININE (BEAKER) (test 4.40 mg/dL 0.50-1.20 vylq=157) GLUCOSE RANDOM (BEAKER) 212 mg/dL 70-110 (test yyfb=035) CALCIUM (BEAKER) (test 9.0 mg/dL 8.5-10.5 ebpf=261) AST (SGOT) (BEAKER) (test 14 U/L 5-40 kejn=230) ALT (SGPT) (BEAKER) (test 4 U/L 5-50 oztb=658) EGFR (BEAKER) (test 14 mL/min/1.73 sq m ESTIMATED GFR IS NOT hrxa=2182) ACCURATE CREATININE CLEARANCE IN PREDICTING GLOMERULAR FILTRATION RATE. ESTIMATED GFR IS NOT APPLICABLE FOR DIALYSIS PATIENTS. CBC W/PLT COUNT & AUTO [id number] 16:02:00 Test Item Value Reference Range Comments WHITE BLOOD CELL COUNT (BEAKER) (test kxxw=776) 6.9 K/ L 4.0-10.0 RED BLOOD CELL COUNT (BEAKER) (test emez=893) 2.95 M/ L 4.20-5.80 HEMOGLOBIN (BEAKER) (test itzl=843) 8.6 GM/DL 13.0-16.8 HEMATOCRIT (BEAKER) (test vyqa=083) 25.9 % 40.0-50.0 MEAN CORPUSCULAR VOLUME (BEAKER) (test pemj=695) 87.9 fL 82.0-98.0 MEAN CORPUSCULAR HEMOGLOBIN (BEAKER) (test 29.0 pg 27.0-33.0 dswd=785) MEAN CORPUSCULAR HEMOGLOBIN CONC (BEAKER) (test 33.0 GM/DL 32.0-36.0 adsx=063) RED CELL DISTRIBUTION WIDTH (BEAKER) (test 15.0 % 10.3-14.2 cwfe=051) PLATELET COUNT (BEAKER) (test izyr=735) 330 K/CU MM 150-430 MEAN PLATELET VOLUME (BEAKER) (test mhjf=338) 7.1 fL 6.5-10.5 NUCLEATED RED BLOOD CELLS (BEAKER) (test 0 /100 WBC 0-0 tcaz=426) NEUTROPHILS RELATIVE PERCENT (BEAKER) (test 66 % ctog=420) LYMPHOCYTES RELATIVE PERCENT (BEAKER) (test 16 % kcnm=756) MONOCYTES RELATIVE PERCENT (BEAKER) (test 12 % rlfd=511) EOSINOPHILS RELATIVE PERCENT (BEAKER) (test 5 % haak=784) BASOPHILS RELATIVE PERCENT (BEAKER) (test 1 % kaqr=474) NEUTROPHILS ABSOLUTE COUNT (BEAKER) (test 4.60 K/ L 1.80-8.00 idkt=707) LYMPHOCYTES ABSOLUTE COUNT (BEAKER) (test 1.10 K/ L 1.48-4.50 hvmm=316) MONOCYTES ABSOLUTE COUNT (BEAKER) (test 0.80 K/ L 0.00-1.30 ohmm=442) EOSINOPHILS ABSOLUTE COUNT (BEAKER) (test 0.30 K/ L 0.00-0.50 saxr=968) BASOPHILS ABSOLUTE COUNT (BEAKER) (test 0.10 K/ L 0.00-0.20 hvlv=741) PROTHROMBIN [id number] 16:01:00 Test Item Value Reference Range Comments PROTIME (BEAKER) (test hcim=213) 10.3 seconds 9.3-12.0 INR (BEAKER) (test dnim=216) 1.0 <=5.9 RECOMMENDED COUMADIN/WARFARIN INR THERAPY RANGESSTANDARD DOSE: 2.0 - 3.0 Includes: PROPHYLAXIS forvenous thrombosis, systemic embolization; TREATMENT for venous thrombosis and/or pulmonary embolus.HIGH RISK: Target INR is 2.5-3.5 for patients with mechanical heart valves.POCT-GLUCOSE [id number] 12:01:00 Test Item Value Reference Range Comments POC-GLUCOSE METER (BEAKER) 211 mg/dL 70-110 TESTED AT [address] (test qiii=6889) [facility] [address] POCT-GLUCOSE [id number] 06:08:00 Test Item Value Reference Range Comments POC-GLUCOSE METER (BEAKER) 191 mg/dL 70-110 TESTED AT [address] (test sdiw=5981) [facility] [address] POCT-GLUCOSE [id number] 21:28:00 Test Item Value Reference Range Comments POC-GLUCOSE METER (BEAKER) 233 mg/dL 70-110 TESTED AT [address] (test kliz=1125) [facility] [address] POCT-GLUCOSE [id number] 16:19:00 Test Item Value Reference Range Comments POC-GLUCOSE METER (BEAKER) 290 mg/dL 70-110 TESTED AT [address] (test owlx=2797) [facility] [address] POCT-GLUCOSE [id number] 13:33:00 Test Item Value Reference Range Comments POC-GLUCOSE METER (BEAKER) 186 mg/dL 70-110 TESTED AT [address] (test oxre=4230) [facility] [address] POCT-GLUCOSE [id number] 06:27:00 Test Item Value Reference Range Comments POC-GLUCOSE METER (BEAKER) 204 mg/dL 70-110 TESTED AT [address] (test xtxd=7150) [facility] [address] POCT-GLUCOSE [id number] 21:40:00 Test Item Value Reference Range Comments POC-GLUCOSE METER (BEAKER) 267 mg/dL 70-110 TESTED AT [address] (test bikr=8740) [facility] [address] POCT-GLUCOSE [id number] 17:32:00 Test Item Value Reference Range Comments POC-GLUCOSE METER (BEAKER) 221 mg/dL 70-110 TESTED AT [address] (test ppjc=6439) [facility] [address] HEPATITIS B SURFACE [id number] 14:21:00 Test Item Value Reference Range Comments HEPATITIS B SURFACE ANTIBODY (BEAKER) (test < mIU/mL <8.0 zpnb=461) HEPATITIS B CORE ANTIBODY, [id number] 14:15:00 Test Item Value Reference Range Comments HEPATITIS B CORE TOTAL ANTIBODY (BEAKER) (test Nonreactive Nonreactive cddy=058) POCT-GLUCOSE [id number] 12:18:00 Test Item Value Reference Range Comments POC-GLUCOSE METER (BEAKER) 193 mg/dL 70-110 TESTED AT [address] (test gxot=6167) [facility] [address] RAD, CHEST, 1 VIEW, NON [id number] 08:49:00Reason for exam:->for outpatient HD placementShould this [...] MDReport Verified Date/Time: 06/10/2017 08:49:42 Reading [facility] Radiology Reading Room Electronically signed by: SACHI HAMMER on 2016 08:49 AMPOCT-GLUCOSE [id number] 06:53:00 Test Item Value Reference Range Comments POC-GLUCOSE METER (BEAKER) 177 mg/dL 70-110 TESTED AT [address] (test uoyx=7569) [facility] [address] POCT-GLUCOSE [id number] 22:10:00 Test Item Value Reference Range Comments POC-GLUCOSE METER (BEAKER) 109 mg/dL 70-110 TESTED AT [address] (test pmop=6132) [facility] [address] HEPATITIS B SURFACE [id number] 20:18:00 Test Item Value Reference Range Comments HEPATITIS B SURFACE ANTIGEN (2) (BEAKER) (test Nonreactive Nonreactive tayn=7543) POCT-GLUCOSE [id number] 17:08:00 Test Item Value Reference Range Comments POC-GLUCOSE METER (BEAKER) 223 mg/dL 70-110 TESTED AT [address] (test aqab=9442) [facility] [address] POCT-GLUCOSE [id number] 12:47:00 Test Item Value Reference Range Comments POC-GLUCOSE METER (BEAKER) 200 mg/dL 70-110 TESTED AT [address] (test rbgl=6619) [facility] [address] ANG, TUNNELED CATHETER [id number] 12:13:00Reason for exam:->renal failureFINAL REPORT Tunneled central [...] the patient's medical record by the nurse. Dress Marker: Onesimo Lopez MD. Grain Trader: None. Approach: Right internal jugular vein Estimated [...] needle into the right atrium. A 4 Mongolian micropuncture sheath was placed. A subcutaneous tunnel was created in the right anterior chest wall by blunt dissection. A 19 cm tipped cuff 15.5 Mongolian Duraflow 2 catheter was brought through the [...] Lopezort Verified Date/Time: 06/09/2017 12:13:36 Reading Location: [facility] Radiology Reading Room 12 :13 PMPOCT-GLUCOSE [id number] 06:03:00 Test Item Value Reference Range Comments POC-GLUCOSE METER (BEAKER) 208 mg/dL 70-110 TESTED AT [facility] [address] [facility] (test cntf=5538) [address] [facility] [address] BASIC METABOLIC [id number] 06:00:00 Test Item Value Reference Range Comments SODIUM (BEAKER) (test 139 meq/L 135-148 iwxt=889) POTASSIUM (BEAKER) (test 3.5 meq/L 3.6-5.5 srdp=788) CHLORIDE (BEAKER) (test 103 meq/L 98-106 lirm=229) CO2 (BEAKER) (test 26 meq/L 20-29 ccva=705) BLOOD UREA NITROGEN 62 mg/dL 10-26 (BEAKER) (test mcwx=936) CREATININE (BEAKER) (test 5.10 mg/dL 0.50-1.20 vono=869) GLUCOSE RANDOM (BEAKER) 191 mg/dL 70-110 (test gvjp=747) CALCIUM (BEAKER) (test 9.0 mg/dL 8.5-10.5 cyeh=854) EGFR (BEAKER) (test 12 mL/min/1.73 sq m ESTIMATED GFR IS NOT ennz=7763) ACCURATE CREATININE CLEARANCE IN PREDICTING GLOMERULAR FILTRATION RATE. ESTIMATED GFR IS NOT APPLICABLE FOR DIALYSIS PATIENTS. HEPATIC FUNCTION [id number] 05:58:00 Test Item Value Reference Range Comments TOTAL PROTEIN (BEAKER) (test mzhb=063) 6.3 gm/dL 6.0-8.5 ALBUMIN (BEAKER) (test vcuf=3297) 3.2 g/dL 3.5-5.0 BILIRUBIN TOTAL (BEAKER) (test gujh=596) 0.4 mg/dL 0.1-1.2 BILIRUBIN DIRECT (BEAKER) (test rkyf=539) 0.2 mg/dL 0.0-0.4 ALKALINE PHOSPHATASE (BEAKER) (test mnel=778) 67 U/L 30-115 AST (SGOT) (BEAKER) (test jwxi=149) 13 U/L 5-40 ALT (SGPT) (BEAKER) (test jbfl=829) 10 U/L 5-50 CBC W/PLT COUNT & AUTO [id number] 05:56:00 Test Item Value Reference Range Comments WHITE BLOOD CELL COUNT (BEAKER) (test fapt=347) 6.3 K/ L 4.0-10.0 RED BLOOD CELL COUNT (BEAKER) (test npcp=892) 2.71 M/ L 4.20-5.80 HEMOGLOBIN (BEAKER) (test apsd=151) 7.8 GM/DL 13.0-16.8 HEMATOCRIT (BEAKER) (test djyf=941) 23.6 % 40.0-50.0 MEAN CORPUSCULAR VOLUME (BEAKER) (test bpzc=840) 86.8 fL 82.0-98.0 MEAN CORPUSCULAR HEMOGLOBIN (BEAKER) (test 28.6 pg 27.0-33.0 ckhz=658) MEAN CORPUSCULAR HEMOGLOBIN CONC (BEAKER) (test 33.0 GM/DL 32.0-36.0 vmui=322) RED CELL DISTRIBUTION WIDTH (BEAKER) (test 14.8 % 10.3-14.2 abzy=226) PLATELET COUNT (BEAKER) (test tnml=885) 334 K/CU MM 150-430 MEAN PLATELET VOLUME (BEAKER) (test kavn=085) 6.9 fL 6.5-10.5 NUCLEATED RED BLOOD CELLS (BEAKER) (test 0 /100 WBC 0-0 kiww=475) NEUTROPHILS RELATIVE PERCENT (BEAKER) (test 57 % vgmr=584) LYMPHOCYTES RELATIVE PERCENT (BEAKER) (test 19 % elhh=349) MONOCYTES RELATIVE PERCENT (BEAKER) (test 15 % iuve=801) EOSINOPHILS RELATIVE PERCENT (BEAKER) (test 7 % ltxn=083) BASOPHILS RELATIVE PERCENT (BEAKER) (test 1 % hppb=387) NEUTROPHILS ABSOLUTE COUNT (BEAKER) (test 3.60 K/ L 1.80-8.00 vxdh=746) LYMPHOCYTES ABSOLUTE COUNT (BEAKER) (test 1.20 K/ L 1.48-4.50 uvrs=076) MONOCYTES ABSOLUTE COUNT (BEAKER) (test 1.00 K/ L 0.00-1.30 swhy=958) EOSINOPHILS ABSOLUTE COUNT (BEAKER) (test 0.50 K/ L 0.00-0.50 xlkj=407) BASOPHILS ABSOLUTE COUNT (BEAKER) (test 0.10 K/ L 0.00-0.20 tpmx=650) [id number] 05:55:00 Test Item Value Reference Range Comments PHOSPHORUS (BEAKER) (test aghg=713) 4.1 mg/dL 2.5-4.5 [id number] 05:51:00 Test Item Value Reference Range Comments PROTIME (BEAKER) (test oqbe=300) 10.7 seconds 9.3-12.0 INR (BEAKER) (test mvnu=362) 1.0 <=5.9 PARTIAL THROMBOPLASTIN TIME (BEAKER) (test 28.5 seconds 23.0-35.0 mijj=210) RECOMMENDED COUMADIN/WARFARIN INR THERAPY RANGESSTANDARD DOSE: 2.0 - 3.0 Includes: PROPHYLAXIS forvenous thrombosis, systemic embolization; TREATMENT for venous thrombosis and/or pulmonary embolus.HIGH RISK: Target INR is 2.5-3.5 for patients with mechanical heart valves.[id number] 05:50:00 Test Item Value Reference Range Comments MAGNESIUM (BEAKER) (test iqtc=252) 1.7 mg/dL 1.5-3.0 POCT-GLUCOSE [id number] 23:14:00 Test Item Value Reference Range Comments POC-GLUCOSE METER (BEAKER) 230 mg/dL 70-110 TESTED AT [address] (test dted=9363) [address] [facility] [address]
[2018-03-15] MEDS ORDERED: FENTANYL CITR 100 MCG/2 ML ONE (06:18)
[2018-03-15] MEDS ORDERED: ONDANSETRON 4 MG/2 ML VIAL ONE (06:18)
[2018-03-15 06:22] LABS: Absolute Monocytes 0.7 K/uL (0.1-1.3); Absolute Neutrophil 3.8 K/uL (1.8-8.0); Basophils % 1.3 % (0-1.3); Eosinophils % 5.7 % (0-4.4); Hematocrit 32.4 % (39.6-49.0); Lymphocytes % 17.3 % (15.3-44.8); MCH 31.3 pg (27.0-35.0); MCV 91.8 fL (80-100); MPV 7.6 fL (7.6-11.3); Monocytes % 11.7 % (3.3-12.3); RBC Red Blood Cell Count 3.53 M/uL (4.33-5.43)
[2018-03-15 06:50] LABS: Albumin 3.6 g/dL (3.4-5.0); Bilirubin Direct 0.2 mg/dL (0-0.2); Bilirubin Total 0.4 mg/dL (0.2-1.0); Potassium 4.7 mmol/L (3.5-5.1); Protein, Total 7.7 g/dL (6.4-8.2)
[2018-03-15] MEDS ORDERED: METOCLOPRAMIDE 10 MG/2mL INJ ONE (06:54)
[2018-03-15] MEDS ORDERED: PROMETHAZINE 25 MG/ML VIAL ONE (07:29)
--- NOTE | 2018-03-15 07:40 | EDPHYS ---
Physician Documentation [facility] Name: Yusuf Bah Age: 52 yrs Sex: Male : 1965 Arrival Date: 03/15/2018 Time: 05:44 Bed 6 Private MD: Garo Chavarria ED Physician Steve Britton HPI: 03/15 07:51 This 52 yrs old Male presents to ER via Ambulatory with complaints of jr8 Vomiting. 07:51 The patient presents to the emergency department with nausea, vomiting. Onset: The jr8 symptoms/episode began/occurred gradually, 1 year(s) ago. Possible causes: unknown. The symptoms are aggravated by nothing. The symptoms are alleviated by prescription meds. Associated signs and symptoms: The patient has no apparent associated signs or symptoms. Severity of symptoms: At their worst the symptoms were moderate in the emergency department the symptoms are unchanged. The patient has experienced similar episodes in the past, several times. The patient has not recently seen a physician. History of intractable vomiting. Has had recent gastric emptying study completed with normal outcome. Suspect gallbladder disease and is set for surgery next week. Came into ED today for persistent vomiting again . Historical: - Allergies: 06:25 Sulfa (Sulfonamide Antibiotics); aa1 - Home Meds: 06:25 Norvasc 10 mg Oral tab 1 tab once daily [Active]; Lasix 40 mg oral tab 2 times per day aa1 [Active]; sertraline 50 mg Oral tab 1 tab once daily [Active]; atorvastatin 80 mg Oral tab 1 tab once daily [Active]; Plavix 75 mg Oral tab 1 tab once daily [Active]; Stool Softener 100 mg oral tab 1 tab 2 times per day [Active]; Ranexa 1,000 mg oral Tb12 1 tab daily [Active]; metoprolol tartrate 100 mg oral tab 1 tab 2 times per day [Active]; hydralazine 25 mg Oral tab 3 tab 2 times per day [Active]; metoclopramide HCl 5 mg Oral tab 1 tab three times a day [Active]; aspirin 325 mg oral tab 1 tab once daily [Active]; famotidine 40 mg Oral tab 1 tab once daily [Active]; Vitamin D2 50,000 unit oral cap 1 cap once wkly [Active]; sevelamer HCl oral oral 2 tabs 3 times per day [Active]; Humalog Sub-Q per insulin pump [Active]; Travatan Z 0.004 % ophthalmic drop 1 drop once daily [Active]; clonidine HCl 0.1 mg Oral tab 1 tab 3 times per day [Active]; Nitrostat 0.4 mg SL subl 1 tab every 5 minutes [Active]; nitroglycerin 0.2 mg/hr Topical pt24 1 patch once daily [Active]; Ambien 5 mg Oral tab 1 tab once daily [Active]; Zofran (as hydrochloride) 4 mg Oral tab 1 tabs every 6 hours [Active]; promethazine 25 mg Oral tab 1 tab every 8 hours [Active]; lactulose 10 gram/15 mL Oral soln 30 mL once daily [Active]; - PMHx: 06:25 Angina; CAD; Diabetes - IDDM; GERD; Glaucoma; High Cholesterol; Hypertension; Renal aa1 Disease; Small vessle disease of the heart; Depression; Dialysis; - PSHx: 06:25 Appendectomy; shoulder sx; aa1 - Immunization history:: Flu vaccine is up to date. - Social history:: Smoking status: Patient/guardian denies using tobacco, never smoked. - Ebola Screening: : Patient denies exposure to infectious person Patient denies travel to an Ebola-affected area in the 21 days before illness onset. ROS: 07:51 Eyes: Negative for injury, pain, redness, and discharge, ENT: Negative for injury, jr8 pain, and discharge, Neck: Negative for injury, pain, and swelling, Cardiovascular: Negative for chest pain, palpitations, and edema, Respiratory: Negative for shortness of breath, cough, wheezing, and pleuritic chest pain, Back: Negative for injury and pain, MS/Extremity: Negative for injury and deformity, Skin: Negative for injury, rash, and discoloration, Neuro: Negative for headache, weakness, numbness, tingling, and seizure. 07:51 Abdomen/GI: Positive for nausea and vomiting, Negative for abdominal pain, diarrhea, constipation, abdominal cramps, abdominal distension, anorexia, dysphagia, hematemesis, black/tarry stool, rectal pain, rectal bleeding, bowel incontinence, flatulence. Exam: 07:51 Eyes: Pupils equal round and reactive to light, extra-ocular motions intact. Lids and jr8 lashes normal. Conjunctiva and sclera are non-icteric and not injected. Cornea within normal limits. Periorbital areas with no swelling, redness, or edema. ENT: Nares patent. No nasal discharge, no septal abnormalities noted. Tympanic membranes are normal and external auditory canals are clear. Oropharynx with no redness, swelling, or masses, exudates, or evidence of obstruction, uvula midline. Mucous membranes moist. Neck: Trachea midline, no thyromegaly or masses palpated, and no cervical lymphadenopathy. Supple, full range of motion without nuchal rigidity, or vertebral point tenderness. No Meningismus. Cardiovascular: Regular rate and rhythm with a normal S1 and S2. No gallops, murmurs, or rubs. Normal PMI, no JVD. No pulse deficits. Respiratory: Lungs have equal breath sounds bilaterally, clear to auscultation and percussion. No rales, rhonchi or wheezes noted. No increased work of breathing, no retractions or nasal flaring. Abdomen/GI: Soft, non-tender, with normal bowel sounds. No distension or tympany. No guarding or rebound. No evidence of tenderness throughout. Back: No spinal tenderness. No costovertebral tenderness. Full range of motion. Skin: Warm, dry with normal turgor. Normal color with no rashes, no lesions, and no evidence of cellulitis. MS/ Extremity: Pulses equal, no cyanosis. Neurovascular intact. Full, normal range of motion. Neuro: Awake and alert, GCS 15, oriented to person, place, time, and situation. Cranial nerves II-XII grossly intact. Motor strength 5/5 in all extremities. Sensory grossly intact. Cerebellar exam normal. Normal gait. Vital Signs: 05:56 BP 202 / 76; Pulse 80; Resp 18; Temp 98.7; Pulse Ox 98% on R/A; Weight 92.99 kg; Height aa1 6 ft. 3 in. (190.50 cm); Pain 7/10; 06:16 BP 192 / 78; Pulse 80; Resp 18; Pulse Ox 95% on R/A; lp1 06:50 BP 195 / 71; Pulse 77; Resp 18; Pulse Ox 95% on R/A; lp1 07:05 BP 197 / 84; Pulse 79; Resp 18; Pulse Ox 97% on R/A; hj 07:45 BP 167 / 79; Pulse 75; Resp 18; Pulse Ox 99% on R/A; hj 05:56 Body Mass Index 25.62 (92.99 kg, 190.50 cm) aa1 MDM: 06:00 Patient medically screened. ia 07:37 Data reviewed: vital signs, nurses notes, lab test result(s), and as a result, I will jr8 discharge patient. Data interpreted: Pulse oximetry: on room air is 97 %. Interpretation: normal. 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 Response to treatment: the patient's symptoms have markedly improved after treatment. ED course: Patient feeling better. Called Dr. Zhong to set up dialysis for patient at 9:45 at the [facility] dialysis center in [place]. . 03/15 06:07 Order name: Basic Metabolic Panel; Complete Time: 07:00 ia 03/15 06:07 Order name: CBC with Diff; Complete Time: 06:25 ia 03/15 06:07 Order name: Hepatic Function; Complete Time: 07:00 03/15 06:07 Order name: Lipase; Complete Time: 07:00 ia 03/15 06:07 Order name: IV Saline Lock; Complete Time: 06:09 ia 03/15 06:07 Order name: Labs collected and sent; Complete Time: 06:09 ia Administered Medications: 06:16 Drug: Zofran 4 mg Route: IVP; Site: left forearm; ea 06:48 Follow up: Response: Nausea unchanged lp1 07:28 Follow up: Response: No adverse reaction; Pain is unchanged, physician notified hj 06:17 Drug: fentaNYL (PF) 50 mcg Route: IVP; Site: left antecubital; ea 06:48 Follow up: Response: Pain is decreased lp1 07:28 Follow up: Response: No adverse reaction; Nausea unchanged hj 06:50 Drug: Reglan 10 mg Route: IVP; Site: left forearm; ea 07:06 Follow up: Response: No adverse reaction; Nausea unchanged hj 07:29 Follow up: Response: Nausea unchanged hj 07:20 Drug: Phenergan 12.5 mg Route: IVP; Site: left forearm; hj 07:26 Follow up: Response: No adverse reaction; Nausea is decreased hj 07:29 Follow up: Response: No adverse reaction; Nausea is decreased Disposition: 03/15/18 07:39 Discharged to Home. Impression: Vomiting - Intractable . - Condition is Stable. - Discharge Instructions: Nausea and Vomiting, Adult. - Prescriptions for promethazine 25 mg Rectal suppository - insert 1 suppository by RECTAL route every 6 hours; 12 suppository. - Medication Reconciliation Form, Thank You Letter, Antibiotic Education, Prescription Opioid Use form. - Follow up: Garo Chavarria MD; When: 2 - 3 days; Reason: Recheck today's complaints, Continuance of care, Re-evaluation by your physician. - Problem is new. - Symptoms have improved. Signatures: Dispatcher [employer] EDMS Sarah Gilliam RN RN aa1 Jeremiah Nguyen PA PA jr8 True Davidson RN RN hj Antunez, Elena, RN RN Steve Britton MD MD wa Pena, Laura RN lp1 Corrections: (The following items were deleted from the chart) 07:46 07:39 03/15/2018 07:39 Discharged to Home. Impression: Vomiting - Intractable . hj Condition is Stable. Forms are Medication Reconciliation Form, Thank You Letter, Antibiotic Education, Prescription Opioid Use. Follow up: Garo Chavarria; When: 2 - 3 days; Reason: Recheck today's complaints, Continuance of care, Re-evaluation by your physician. Problem is new. Symptoms have improved. jr8
--- NOTE | 2018-03-15 07:40 | ER ---
Nurse's Notes [facility] Name: Yusuf Bah Age: 52 yrs Sex: Male : 1965 Arrival Date: 03/15/2018 Time: 05:44 Bed 6 Private MD: Garo Chavarria Diagnosis: Vomiting-Intractable Presentation: 03/15 05:56 Presenting complaint: Patient states: chronic vomiting for the past year. States he was aa1 just released from the hospital and felt fine while he was here receiving IV morphine \T\ phenergan but when he got home he started feeling bad again. Reports he was recently told he needed to have his gallbladder removed but they could not do the surgery because he is on plavix. Transition of care: patient was not received from another setting of care. Onset of symptoms was 2016. Risk Assessment: Do you want to hurt yourself or someone else? Patient reports no desire to harm self or others. Initial Sepsis Screen: Does the patient meet any 2 criteria? No. Patient's initial sepsis screen is negative. Does the patient have a suspected source of infection? No. Patient's initial sepsis screen is negative. Care prior to arrival: None. 05:56 Method Of Arrival: Ambulatory aa1 05:56 Acuity: ALVERTO 3 aa1 Historical: - Allergies: 06:25 Sulfa (Sulfonamide Antibiotics); aa1 - Home Meds: 06:25 Norvasc 10 mg Oral tab 1 tab once daily [Active]; Lasix 40 mg oral tab 2 times per day aa1 [Active]; sertraline 50 mg Oral tab 1 tab once daily [Active]; atorvastatin 80 mg Oral tab 1 tab once daily [Active]; Plavix 75 mg Oral tab 1 tab once daily [Active]; Stool Softener 100 mg oral tab 1 tab 2 times per day [Active]; Ranexa 1,000 mg oral Tb12 1 tab daily [Active]; metoprolol tartrate 100 mg oral tab 1 tab 2 times per day [Active]; hydralazine 25 mg Oral tab 3 tab 2 times per day [Active]; metoclopramide HCl 5 mg Oral tab 1 tab three times a day [Active]; aspirin 325 mg oral tab 1 tab once daily [Active]; famotidine 40 mg Oral tab 1 tab once daily [Active]; Vitamin D2 50,000 unit oral cap 1 cap once wkly [Active]; sevelamer HCl oral oral 2 tabs 3 times per day [Active]; Humalog Sub-Q per insulin pump [Active]; Travatan Z 0.004 % ophthalmic drop 1 drop once daily [Active]; clonidine HCl 0.1 mg Oral tab 1 tab 3 times per day [Active]; Nitrostat 0.4 mg SL subl 1 tab every 5 minutes [Active]; nitroglycerin 0.2 mg/hr Topical pt24 1 patch once daily [Active]; Ambien 5 mg Oral tab 1 tab once daily [Active]; Zofran (as hydrochloride) 4 mg Oral tab 1 tabs every 6 hours [Active]; promethazine 25 mg Oral tab 1 tab every 8 hours [Active]; lactulose 10 gram/15 mL Oral soln 30 mL once daily [Active]; - PMHx: 06:25 Angina; CAD; Diabetes - IDDM; GERD; Glaucoma; High Cholesterol; Hypertension; Renal aa1 Disease; Small vessle disease of the heart; Depression; Dialysis; - PSHx: 06:25 Appendectomy; shoulder sx; aa1 - Immunization history:: Flu vaccine is up to date. - Social history:: Smoking status: Patient/guardian denies using tobacco, never smoked. - Ebola Screening: : Patient denies exposure to infectious person Patient denies travel to an Ebola-affected area in the 21 days before illness onset. Screenin:15 Abuse screen: Denies threats or abuse. Denies injuries from another. Nutritional lp1 screening: No deficits noted. Tuberculosis screening: No symptoms or risk factors identified. Fall Risk None identified. Assessment: 06:07 General: Appears uncomfortable, Behavior is appropriate for age. Pain: Complains of lp1 pain in low back area Pain currently is 8 out of 10 on a pain scale. Quality of pain is described as sharp. Neuro: Level of Consciousness is awake, alert, obeys commands. Cardiovascular: Patient's skin is warm and dry. Dialysis shunt: in the right bicep. Respiratory: Respiratory effort is even, unlabored, Breath sounds are diminished bilaterally. GI: Abdomen is non-distended, Pt is actively vomiting but no emesis fluid noted Reports vomiting. : No signs and/or symptoms were reported regarding the genitourinary system. EENT: No signs and/or symptoms were reported regarding the EENT system. Derm: Skin is intact, Skin is dry, Skin is normal. Musculoskeletal: Circulation, motion, and sensation intact. 06:50 Reassessment: Patient states nausea unchanged; Provider notifed. lp1 07:03 General: Appears in no apparent distress. uncomfortable, Behavior is calm, cooperative, hj appropriate for age. Pain: Complains of pain in back and low back area Pain currently is 5 out of 10 on a pain scale. Neuro: Level of Consciousness is awake, alert, obeys commands, Oriented to person, place, time, situation, Appropriate for age. Cardiovascular: Capillary refill < 3 seconds Patient's skin is warm and dry. Respiratory: Airway is patent Respiratory effort is even, unlabored, Respiratory pattern is regular, symmetrical, Breath sounds are diminished. GI: Abdomen is non-distended, Pt is actively vomiting. : No signs and/or symptoms were reported regarding the genitourinary system. EENT: No signs and/or symptoms were reported regarding the EENT system. Derm: Skin is intact, Skin is dry, Skin is normal. Musculoskeletal: Circulation, motion, and sensation intact. Vital Signs: 05:56 BP 202 / 76; Pulse 80; Resp 18; Temp 98.7; Pulse Ox 98% on R/A; Weight 92.99 kg; Height aa1 6 ft. 3 in. (190.50 cm); Pain 7/10; 06:16 BP 192 / 78; Pulse 80; Resp 18; Pulse Ox 95% on R/A; lp1 06:50 BP 195 / 71; Pulse 77; Resp 18; Pulse Ox 95% on R/A; lp1 07:05 BP 197 / 84; Pulse 79; Resp 18; Pulse Ox 97% on R/A; hj 07:45 BP 167 / 79; Pulse 75; Resp 18; Pulse Ox 99% on R/A; hj 05:56 Body Mass Index 25.62 (92.99 kg, 190.50 cm) aa1 ED Course: 05:44 Patient arrived in ED. ds1 05:44 Garo Chavarria MD is Private Physician. ds1 05:56 Arm band placed on right wrist. Patient placed in an exam room, on a stretcher. aa1 06:00 Steve Britton MD is Attending Physician. wa 06:00 Triage completed. aa1 06:07 Natalia Bhardwaj RN is Primary Nurse. lp1 06:07 Inserted saline lock: 20 gauge in left forearm, using aseptic technique. Blood lp1 collected. 06:11 Jeremiah Nguyen PA is PHCP. jr8 06:15 Steve Britton MD is Attending Physician. jr8 06:15 Patient has correct armband on for positive identification. Call light in reach. Pulse lp1 ox on. NIBP on. 07:39 Garo Chavarria MD is Referral Physician. jr8 07:44 No provider procedures requiring assistance completed. IV discontinued, intact, hj bleeding controlled, No redness/swelling at site. Pressure dressing applied. Administered Medications: 06:16 Drug: Zofran 4 mg Route: IVP; Site: left forearm; ea 06:48 Follow up: Response: Nausea unchanged lp1 07:28 Follow up: Response: No adverse reaction; Pain is unchanged, physician notified hj 06:17 Drug: fentaNYL (PF) 50 mcg Route: IVP; Site: left antecubital; ea 06:48 Follow up: Response: Pain is decreased lp1 07:28 Follow up: Response: No adverse reaction; Nausea unchanged hj 06:50 Drug: Reglan 10 mg Route: IVP; Site: left forearm; ea 07:06 Follow up: Response: No adverse reaction; Nausea unchanged hj 07:29 Follow up: Response: Nausea unchanged hj 07:20 Drug: Phenergan 12.5 mg Route: IVP; Site: left forearm; hj 07:26 Follow up: Response: No adverse reaction; Nausea is decreased hj 07:29 Follow up: Response: No adverse reaction; Nausea is decreased Outcome: 07:39 Discharge ordered by . jr8 07:45 Discharged to home ambulatory, with family. hj 07:45 Condition: stable 07:45 Discharge instructions given to patient, family, Instructed on discharge instructions, follow up and referral plans. medication usage, dialysis sched at 9:30; Demonstrated understanding of instructions, follow-up care, medications, Prescriptions given X 1. 07:46 Patient left the ED. Signatures: Sarah Gilliam RN RN aa1 Melissa Olivo ds1 Natalia Bhardwaj RN RN lp1 Jeremiah Nguyen PA PA jr8 True Davidson RN RN hj Antunez, Elena, RN RN Tobi, Steve, MD MD wa
[2018-03-15 07:50] VITALS: TEMP 98.7
[2018-03-15 07:55] VITALS: BP 167/79; O2SAT 99
== END 2018-03-15 07:46 | disposition home or self-care (01) ==
LOC: ER 05:42
DX: R11.10 Vomiting, unspecified (principal); I10 Essential (primary) hypertension; E11.9 Type 2 diabetes mellitus without complications; F32.9 Major depressive disorder, single episode, unspecified; Z99.2 Dependence on renal dialysis; Z79.01 Long term (current) use of anticoagulants; Z79.82 Long term (current) use of aspirin; Z79.4 Long term (current) use of insulin; Z88.2 Allergy status to sulfonamides
CPT/HCPCS: 36415; 80048; 80076; 82962; 83690; 85025; 99284; J2405; J2550; J2765; J3010

== ENCOUNTER 2018-03-22 04:33 | Observation (INO) | payer BC, OTHER ==
--- OUTSIDE RECORDS SUMMARY | 2018-03-22 04:36 | XMS REPORT | Clinical Summary ---
:1965 Author Organization [facility] Address [address] [place] [address] Care Team Providers Name Role Phone Garo [...] Noted Date End-stage renal disease on hemodialysis ([facility]) 08/25/2017 Resolved Problems Problem Noted Date Resolved Date Breakdown of intraperitoneal dialysis catheter, init ([facility]) 08/25/20172017 Abdominal pain 07/17/2017 07/19/2017 Encounters [...] dialysis catheter in place MD Frank after 03/21/2017 Immunizations Name Dates Previously Given Next Due [...] CDT procedure are in the results section. OH AN ELECTIVE Routine 08/25/2017 8:09 END[address]AL AIRWAY [...] Routine 07/19/2017 7:48 AM Results for this LAYOUT DESIGNER procedure are in the results section. POC GLUCOSE Routine 07/18/2017 8:52 PM Results for this LAYOUT DESIGNER procedure are in the results section. NM GASTRIC EMPTYING Routine 07/18/2017 5:06 PM Results for this LAYOUT DESIGNER procedure are in the results section. POC GLUCOSE Routine 07/18/2017 4:15 PM Results for this LAYOUT DESIGNER procedure are in the results section. CELL COUNT AND Routine 07/18/2017 10:00 AM Results for this DIFFERENTIAL, BODY FLUID LAYOUT DESIGNER procedure are in the results section. FUNGUS SMEAR Routine 07/18/2017 10:00 AM Results for this LAYOUT DESIGNER procedure are in the results section. GRAM STAIN Routine 07/18/2017 10:00 AM Results for this LAYOUT DESIGNER procedure are in the results section. FUNGUS CULTURE Routine 07/18/2017 10:00 AM Results for this LAYOUT DESIGNER procedure are in the results section. ANAEROBIC CULTURE Routine 07/18/2017 10:00 AM Results for this LAYOUT DESIGNER procedure are in the results section. AEROBIC CULTURE Routine 07/18/2017 10:00 AM Results for this LAYOUT DESIGNER procedure are in the results section. CT ABDOMEN PELVIS WO Routine 07/18/2017 9:02 AM Results for this CONTRAST LAYOUT DESIGNER procedure are in the results section. LACTIC ACID LEVEL, Timed 07/18/2017 4:11 AM Results for this SEPSIS - NOW AND REPEAT LAYOUT DESIGNER procedure are in 2X EVERY 3 HOURS the results section. LACTIC ACID LEVEL, Timed 07/17/2017 8:30 PM Results for this SEPSIS - NOW AND REPEAT LAYOUT DESIGNER procedure are in 2X EVERY 3 HOURS the results section. ZZESTIMATED GFR STAT 07/17/2017 4:55 PM Results for this LAYOUT DESIGNER procedure are in the results section. LIPASE LEVEL STAT 07/17/2017 4:55 PM Results for this LAYOUT DESIGNER procedure are in the results section. COMPREHENSIVE METABOLIC STAT 07/17/2017 4:55 PM Results for this PANEL LAYOUT DESIGNER procedure are in the results section. LACTIC ACID LEVEL, STAT 07/17/2017 4:55 PM Results for this SEPSIS - NOW AND REPEAT LAYOUT DESIGNER procedure are in 2X EVERY 3 HOURS the results section. HC COMPLETE BLD COUNT STAT 07/17/2017 4:55 PM Results for this W/AUTO DIFF LAYOUT DESIGNER procedure are in the results section. BLOOD CULTURE, AEROBIC & Routine 07/17/2017 4:55 PM Results for this ANAEROBIC LAYOUT DESIGNER procedure are in the results section. BLOOD CULTURE, AEROBIC & Routine 07/17/2017 4:50 PM Results for this ANAEROBIC LAYOUT DESIGNER procedure are in the results section. after 03/21/2017 Results POC glucose (08/25/2017 8:40 AM)Only the most recent of4 resultswithin the time period is included. POC glucose 152 (H) 65 - 99 mg/dL [facility] DEPARTMENT OF PATHOLOGY AND Comment: GENOMIC MEDICINE RN Notified Meter ID: [id number] Industrial Roof Plumber: Boogie Blackburn Performing Organization Address City/State/Zipcode Phone Number [facility] DEPARTMENT OF PATHOLOGY [address] [facility] [place] [address] AND [facility] MEDICINE POC panel 4 (08/25/2017 6:59 AM) POC sodium 138 135 - 148 meq/L [facility] DEPARTMENT OF PATHOLOGY AND GENOMIC MEDICINE POC potassium 3.7 3.5 - 5.0 meq/L [facility] DEPARTMENT OF PATHOLOGY AND GENOMIC MEDICINE POC hematocrit 36 (L) 41 - 51 % [facility] DEPARTMENT OF PATHOLOGY AND GENOMIC MEDICINE POC glucose 155 (H) 65 - 99 mg/dL [facility] DEPARTMENT OF PATHOLOGY AND GENOMIC MEDICINE POC hemoglobin 12.2 (L) 14.0 - 18.0 g/dL [facility] DEPARTMENT OF PATHOLOGY AND GENOMIC MEDICINE Specimen Blood Performing Organization Address [facility] Phone Number [facility] [address] [place] [facility] Estimated GFR (08/25/2017 6:47 AM)Only the most recent of2 resultswithin the time period is included. GFR Non Af Amer 18 (A) mL/min/1.73 m2 [facility] DEPARTMENT OF PATHOLOGY AND [place] [facility] GFR Af Amer 22 (A) mL/min/1.73 m2 [facility] DEPARTMENT OF Comment: PATHOLOGY AND [facility] Chronic kidney disease: <60 mL/min/1.73m2 MEDICINE Kidney [...] Americans. Specimen Plasma specimen Performing Organization Address [facility] Phone Number [facility] [address] [place] [facility] Basic metabolic panel (08/25/2017 6:47 AM) Sodium 138 135 - 148 mEq/L [facility] DEPARTMENT OF PATHOLOGY AND GENOMIC MEDICINE Potassium 3.9 3.5 - 5.0 mEq/L [facility] DEPARTMENT OF PATHOLOGY AND GENOMIC MEDICINE Chloride 100 98 - 112 mEq/L [facility] DEPARTMENT OF PATHOLOGY AND GENOMIC MEDICINE CO2 26 24 - 31 mEq/L [facility] DEPARTMENT OF PATHOLOGY AND GENOMIC MEDICINE Anion gap 12 7 - 15 mEq/L [facility] DEPARTMENT OF Comment: PATHOLOGY AND GENOMIC Starting from September , anion gap calculation MEDICINE no longer incorporates potassium. Please note the change. BUN 29 (H) 6 - 20 mg/dL [facility] DEPARTMENT OF PATHOLOGY AND GENOMIC MEDICINE Creatinine 3.6 (H) 0.7 - 1.2 mg/dL [facility] DEPARTMENT OF PATHOLOGY AND GENOMIC MEDICINE Glucose 159 (H) 65 - 99 mg/dL [facility] DEPARTMENT OF PATHOLOGY AND GENOMIC MEDICINE Calcium 9.2 8.3 - 10.2 mg/dL [facility] DEPARTMENT OF PATHOLOGY AND GENOMIC MEDICINE Specimen Plasma specimen Performing Organization Address City/State/Zipcode Phone Number [facility] DEPARTMENT OF PATHOLOGY [address] [place] [address] AND GENOMIC MEDICINE CBC with platelet and differential (08/23/2017 12:26 PM)Only the most recent of2 resultswithin the time period is included. WBC 6.9 4.5 - 11.0 k/uL [facility] DEPARTMENT OF PATHOLOGY AND GENOMIC MEDICINE RBC 3.16 (L) 4.40 - 6.00 m/uL [facility] DEPARTMENT OF PATHOLOGY AND GENOMIC MEDICINE HGB 8.6 (L) 14.0 - 18.0 g/dL [facility] DEPARTMENT OF PATHOLOGY AND GENOMIC MEDICINE HCT 27.4 (L) 41.0 - 51.0 % [facility] DEPARTMENT OF PATHOLOGY AND GENOMIC MEDICINE MCV 86.7 82.0 - 100.0 fL [facility] DEPARTMENT OF PATHOLOGY AND GENOMIC MEDICINE MCH 27.2 27.0 - 34.0 pg [facility] DEPARTMENT OF PATHOLOGY AND GENOMIC MEDICINE MCHC 31.4 31.0 - 37.0 g/dL [facility] DEPARTMENT OF PATHOLOGY AND GENOMIC MEDICINE RDW - SD 52.3 37.0 - 55.0 fL [facility] DEPARTMENT OF PATHOLOGY AND GENOMIC MEDICINE MPV 9.1 6.9 - 11.0 fL [facility] DEPARTMENT OF PATHOLOGY AND GENOMIC MEDICINE Platelet count 273 150 - 400 K/uL [facility] DEPARTMENT OF PATHOLOGY AND GENOMIC MEDICINE Nucleated RBC 0.00 /100 WBC [facility] DEPARTMENT OF PATHOLOGY AND GENOMIC MEDICINE Neutrophils 63.7 39.0 - 69.0 % [facility] DEPARTMENT OF PATHOLOGY AND GENOMIC MEDICINE Lymphocytes 18.6 (L) 25.0 - 45.0 % [facility] DEPARTMENT OF PATHOLOGY AND GENOMIC MEDICINE Monocytes 12.3 (H) 0.0 - 10.0 % [facility] DEPARTMENT OF PATHOLOGY AND GENOMIC MEDICINE Eosinophils 4.0 0.0 - 5.0 % [facility] DEPARTMENT OF PATHOLOGY AND GENOMIC MEDICINE Basophils 0.7 0.0 - 1.0 % [facility] DEPARTMENT OF PATHOLOGY AND GENOMIC MEDICINE Immature granulocytes 0.7 0.0 - 1.0 % [facility] DEPARTMENT OF PATHOLOGY AND GENOMIC MEDICINE Specimen Blood Performing Organization Address City/[facility] Phone Number [facility] DEPARTMENT OF PATHOLOGY [address] [place] [address] AND GENOMIC MEDICINE ECG Pre/Post Op (08/23/2017 11:23 AM) Ventricular rate 54 [facility] Atrial rate 54 [facility] OH interval 176 [facility] QRSD interval 88 [facility] QT interval 492 [facility] QTC interval 466 [facility] P axis 1 5 [facility] QRS axis 1 10 [facility] T wave axis 140 [facility] EKG impression Sinus bradycardia-T wave abnormality, [facility] MUSE consider lateral ischemia-Prolonged QT-Abnormal ECG-No previous ECGs available- Performing Organization Address [facility] Phone Number [facility] MUSE [address] [place] [address] NM Gastric Emptying (07/18/2017 5:06 PM) Narrative Performed At Procedure:NM GASTRIC EMPTYING [facility] Clinical History:ABDOMINAL PAIN Technique 0.8 millicuries of [id number] colloid were mixed with an egg and cooked. The egg was fed to the patient and dynamic imaging of the abdomen in the anterior and posterior projections was performed for 90 minutes. Quantification of gastric emptying was performed using the geometric mean of the anterior and posterior projections. FINDINGS: Gastric emptying half time=53 minutes (normal is <100 minutes). IMPRESSION: Normal gastric emptying. [facility]-[id number] Procedure Note Interface, Radiology Results Incoming - 07/18/2017 5:20 PM LAYOUT DESIGNER Procedure: NM GASTRIC EMPTYING Clinical History: ABDOMINAL PAIN Technique 0.8 millicuries of [id number] colloid were mixed with an egg and cooked. The egg was fed to the patient and dynamic imaging of the abdomen in the anterior and posterior projections was performed for 90 minutes. Quantification of gastric emptying was performed using the geometric mean of the anterior and posterior projections. FINDINGS: Gastric emptying half time=53 minutes (normal is <100 minutes). IMPRESSION: Normal gastric emptying. [facility]-[id number] Performing Organization Address [facility] Cent[facility]ode Phone Number [facility] [address] [place] [address] Fungus smear (07/18/2017 10:00 AM) Fungus smear No fungi observed. [facility] DEPARTMENT OF PATHOLOGY Comment: AND GENOMIC MEDICINE Specimen Information Specimen Source: Peritoneal fluid Specimen Site: Peritoneal Specimen Peritoneal fluid - Peritoneal Performing Organization Address [facility] Phone Number [facility] DEPARTMENT OF PATHOLOGY AND [address] [place] [id number] GENOMIC MEDICINE Aerobic culture (07/18/2017 10:00 AM) Aerobic culture isolate No growth after 3 days. [facility] DEPARTMENT OF Comment: PATHOLOGY AND GENOMIC Specimen Information MEDICINE Specimen Source: Peritoneal fluid Specimen Site: Peritoneal Specimen Peritoneal fluid - Peritoneal Performing Organization Address [facility] Phone Number [facility] DEPARTMENT OF PATHOLOGY AND [address] [place], [place] [id number] [facility] Gram stain (07/18/2017 10:00 AM) Gram stain isolate Rare WBC's [facility] DEPARTMENT OF PATHOLOGY No organisms seen AND GENOMIC MEDICINE Comment: Specimen Information Specimen Source: Peritoneal fluid Specimen Site: Peritoneal Specimen Peritoneal fluid - Peritoneal Performing Organization Address [facility] Phone Number [facility] DEPARTMENT OF PATHOLOGY AND [address] [place] [address] MEDICINE Fungus culture (07/18/2017 10:00 AM) Fungus culture isolate No growth after 4 weeks of incubation. [facility] DEPARTMENT OF Comment: PATHOLOGY AND GENOMIC Specimen Information MEDICINE Specimen Source: Peritoneal fluid Specimen Site: Peritoneal Specimen Peritoneal fluid - Peritoneal Performing Organization Address [facility] Phone Number [facility] DEPARTMENT OF PATHOLOGY AND [address] [place], [place] [id number] [facility] MEDICINE Anaerobic culture (07/18/2017 10:00 AM) Anaerobic culture No anaerobic organisms isolated. [facility] DEPARTMENT OF isolate Comment: PATHOLOGY AND GENOMIC Specimen Information MEDICINE Specimen Source: Peritoneal fluid Specimen Site: Peritoneal Specimen Peritoneal fluid - Peritoneal Performing Organization Address [facility] Phone Number [facility] DEPARTMENT OF PATHOLOGY AND [address] [place] [address] GENOMIC MEDICINE Cell count and differential, body fluid (07/18/2017 10:00 AM) [facility] fluid type PD fluid [facility] DEPARTMENT OF PATHOLOGY AND GENOMIC MEDICINE Color, fluid Colorless [facility] DEPARTMENT OF PATHOLOGY AND GENOMIC MEDICINE Appearance, fluid Clear [facility] DEPARTMENT OF PATHOLOGY AND GENOMIC MEDICINE RBC, fluid SEE COMMENTComment: 1+ (0 - /CMM [facility] DEPARTMENT OF 500 RBC/CMM) PATHOLOGY AND GENOMIC MEDICINE Nucleated cells, fluid 29 /CMM [facility] DEPARTMENT OF PATHOLOGY AND GENOMIC MEDICINE Fluid mononuclear cell SEE COMMENT [facility] DEPARTMENT OF Comment: PATHOLOGY AND GENOMIC Footnote--------- MEDICINE Unable to perform differential due to very low count. Specimen Fluid Performing Organization Address City/State/Zipcode Phone Number [facility] DEPARTMENT OF PATHOLOGY [address] [place] [address] Abdomen Pelvis Wo [...] renal calyceal stones are present without hydronephrosis. [id number] Procedure Note Interface, Radiology Results Incoming - 07/18/2017 9:14 AM LAYOUT DESIGNER EXAMINATION: CT ABDOMEN PELVIS WO CONTRAST CLINICAL [...] renal calyceal stones are present without hydronephrosis. [id number] Performing Organization Address [facility] Cent[facility]ode Phone Number [address] [address] Lactic acid level, SEPSIS - Now and repeat 2x every 3 hours (07/18/2017 4:11 AM )Only the most recent of3 resultswithin the time period is included. Lactic acid 0.6 0.5 - 2.2 mmol/L [facility] DEPARTMENT OF PATHOLOGY AND GENOMIC MEDICINE Specimen Plasma specimen Performing Organization Address [facility] Phone Number [facility] DEPARTMENT OF PATHOLOGY [address] [place] [address] AND [facility] MEDICINE Blood culture, aerobic & anaerobic (07/17/2017 4:55 PM)Only the most recent of2 resultswithin the time period is included. Blood culture isolate No growth after 5 days of incubation. [facility] DEPARTMENT OF Comment: PATHOLOGY AND GENOMIC Specimen Information MEDICINE Specimen Source: Blood Specimen Site: Hand, right Specimen Blood - Hand, right Performing Organization Address [facility]ode Phone Number [facility] DEPARTMENT OF PATHOLOGY AND [address] [place] [address] [facility] MEDICINE Lipase level (07/17/2017 4:55 PM) Lipase 48 13 - 60 U/L [facility] DEPARTMENT OF PATHOLOGY AND GENOMIC MEDICINE Specimen Plasma specimen Performing Organization Address City/[facility] Centercode Phone Number [facility] DEPARTMENT OF PATHOLOGY [id number] [place], [place] [address] [address] AND [place] [facility] Comprehensive metabolic panel (07/17/2017 4:55 PM) Sodium 134 (L) 135 - 148 mEq/L [facility] DEPARTMENT OF PATHOLOGY AND GENOMIC MEDICINE Potassium 4.6 3.5 - 5.0 mEq/L [facility] DEPARTMENT OF PATHOLOGY AND GENOMIC MEDICINE Chloride 96 (L) 98 - 112 mEq/L [facility] DEPARTMENT OF PATHOLOGY AND GENOMIC MEDICINE CO2 25 24 - 31 mEq/L [facility] DEPARTMENT OF PATHOLOGY AND GENOMIC MEDICINE Anion gap 13 7 - 15 mEq/L [facility] DEPARTMENT OF Comment: PATHOLOGY AND GENOMIC Starting from September , anion gap calculation MEDICINE no longer incorporates potassium. Please note the change. BUN 22 (H) 6 - 20 mg/dL [facility] DEPARTMENT OF PATHOLOGY AND GENOMIC MEDICINE Creatinine 3.8 (H) 0.7 - 1.2 mg/dL [facility] DEPARTMENT OF PATHOLOGY AND GENOMIC MEDICINE Glucose 138 (H) 65 - 99 mg/dL [facility] DEPARTMENT OF PATHOLOGY AND GENOMIC MEDICINE Calcium 8.7 8.3 - 10.2 mg/dL [facility] DEPARTMENT OF PATHOLOGY AND GENOMIC MEDICINE Protein 6.8 6.3 - 8.3 g/dL [facility] DEPARTMENT OF PATHOLOGY AND GENOMIC MEDICINE Albumin 2.8 (L) 3.5 - 5.0 g/dL [facility] DEPARTMENT OF PATHOLOGY AND GENOMIC MEDICINE A/G ratio 0.7 0.7 - 3.8 [facility] DEPARTMENT OF PATHOLOGY AND GENOMIC MEDICINE Alkaline phosphatase 69 40 - 129 U/L [facility] DEPARTMENT OF PATHOLOGY AND GENOMIC MEDICINE AST 20 10 - 50 U/L [facility] DEPARTMENT OF PATHOLOGY AND GENOMIC MEDICINE ALT 6 5 - 50 U/L [facility] DEPARTMENT OF PATHOLOGY AND GENOMIC MEDICINE Total bilirubin <0.2 0.2 - 1.2 mg/dL [facility] DEPARTMENT OF PATHOLOGY AND GENOMIC MEDICINE Specimen Plasma specimen Performing Organization Address City/State/Zipcode Phone Number [facility] DEPARTMENT OF PATHOLOGY [address] [facility] [place] [address] AND [place] MEDICINE after 03/21/2017 Insurance Payer Benefit Plan / Group Subscriber ID Type Phone Address [facility] AVNI CARCAMO xxxxxxxxxxxx PPO MEDICARE MEDICARE PART A AND B xxxxxxxxxx Medicare [place], [place] +5-[id number] [place], [place] [phone]
--- OUTSIDE RECORDS SUMMARY | 2018-03-22 04:37 | XMS REPORT | Clinical Summary ---
:1965 Author Organization [facility] Address [address] [place] [address] Phone Care Team Providers Name Role Phone [...] Bala Traore 06/15/2017 Medicine MD Nabila after 03/21/2017 Social History Tobacco Use Types Packs/Day Years Used Date Never Smoker Smokeless Tobacco: Never Used Sex Assigned at Date Recorded Not on file Last Filed Vital Signs Vital Sign Reading Time Taken Blood Pressure 124/61 06/15/2017 4:00 PM BENCH MACHINE OPERATOR Pulse 66 06/15/2017 4:00 PM BENCH MACHINE OPERATOR Temperature 36.3 C (97.3 F) 06/15/2017 4:00 PM BENCH MACHINE OPERATOR Respiratory Rate 18 06/15/2017 4:00 PM BENCH MACHINE OPERATOR Oxygen Saturation 96% 06/15/2017 4:00 PM BENCH MACHINE OPERATOR Inhaled Oxygen Concentration - - Weight 97 kg (213 lb 12.8 oz) 06/08/2017 10:42 PM BENCH MACHINE OPERATOR Height 190.5 cm (6' 3") 06/08/2017 10:42 PM BENCH MACHINE OPERATOR Body Mass Index 26.72 06/08/2017 10:42 PM BENCH MACHINE OPERATOR Plan of Treatment Not on file Implants Implanted Type Area Manager Pathology Device Expiration Model / Identifier Date Serial / Lot Cath Peritoneal Dyls 57cm 2cuf [id number] - Sn/A Catheter N/A: COVIDIEN: SHAZIA 02/17/2021 [id number] / Implanted: Qty: 1 on 06/14/2017 by Abdiel Ivory MD Dialysis Abdomen L N/A / [facility] [id number] Procedures Procedure Name Priority Date/Time Associated Diagnosis Comments LAPAROSCOPY,INSERT 06/14/2017 11:00 AM Renal Failure PERITONEAL CATHETER BENCH MACHINE OPERATOR after 03/21/2017 Results RHYTHM STRIP - SCAN (07/04/2017 3:42 [...] POC-Glucose Meter 243 (H)Comment: TESTED AT [facility] [address] 70 - 110 mg/dL [facility] [address] Specimen Performing Laboratory Blood [facility] [address] [address] CBC with platelet count + automated diff [...] - 0.20 K/L Specimen Performing Laboratory Blood [facility] [address] [place] [address] CBC with platelet count + automated diff (06/15/2017 12:59 PM)Only the most recent of3 resultswithin the time period is included. Specimen Performing Laboratory Blood Narrative The following orders were created for panel order CBC with platelet count + automated diff. Procedure Abnormality Status --------- ------ CBC with platelet count ...[[id number]]AbnormalFinal result Please view results for these tests on the individual orders. Magnesium (06/15/2017 12:59 PM)Only the most recent of2 resultswithin the time period is included. Component Value Ref Range Magnesium 1.9 1.5 - 3.0 mg/dL Specimen Performing Laboratory Blood [facility] [address] [place] [address] Basic Metabolic Panel (06/15/2017 12:59 PM)Only the [...] FOR DIALYSIS PATIENTS. Specimen Performing Laboratory Blood [facility] [address] [place] [address] POC-TCO2 (06/14/2017 10:22 AM) Component Value Ref Range POC-TCO2 30 (H)Comment: TESTED AT [address] 22 - 29 meq/[place] [address] Specimen Performing Laboratory Blood [address] [address] POC-Chloride (06/14/2017 10:22 AM) Component Value Ref Range POC-Chloride 97 (L)Comment: TESTED AT [address] 98 - 107 meq/ L [place] [address] Specimen Performing Laboratory Blood [address] [address] POC-BUN (06/14/2017 10:22 AM) Component Value Ref Range POC-BUN 20Comment: TESTED AT [address] 7 - 21 mg /dL [facility] Specimen Performing Laboratory Blood [address] [address] POC-Creatinine (06/14/2017 10:22 AM) Component Value Ref Range POC-Creatinine 3.6 (H)Comment: TESTED AT [address] 0.6 - 1.3 mg/dL [place] [address] POC-EGFR 18 mL/min/1.73M2 Specimen Performing Laboratory Blood [address] [address] POCT-HEMATOCRIT (06/14/2017 10:22 AM) Component Value Ref Range POC-Hematocrit 24 (L)Comment: TESTED AT [address] 40 - 50 % [place] [address] Specimen Performing Laboratory Blood [address] [address] POCT-HEMOGLOBIN (06/14/2017 10:22 AM) Component Value Ref Range POC-Hemoglobin 8.2 (L)Comment: TESTED AT [address] 13.0 - 16.8 g/dL [place] [address] Specimen Performing Laboratory Blood [address] [address] POCT-GLUCOSE (06/14/2017 10:22 AM) Component Value Ref Range POC-Glucose 123 (H)Comment: TESTED AT [address] 70 - 110 mg/ dL [place] [address] Specimen Performing Laboratory Blood [address] [address] POC-Sodium (06/14/2017 10:22 AM) Component Value Ref Range POC-Sodium 138Comment: [address] [facility] 135 - 148 meq/[place] [address] Specimen Performing Laboratory Blood [facility] [address] [place] [address] POC-Potassium (06/14/2017 10:22 AM) Component Value Ref Range POC-Potassium 3.6Comment: TESTED AT [facility] [address] 3.6 - 5.5 meq/L [facility] [place] [address] Specimen Performing Laboratory Blood [facility] [address] [place] [address] TRANSFUSION SERVICE REPORT - SCAN (06/13/2017 5:30 PM)ECHOCARDIOGRAM REPORT - SCAN (06/13/2017 2:20 PM)2D Echo W/Doppler(CW/PW/Color) (06/13/2017 7:42 AM) Component Value Ref Range Ejection Fraction Specimen Performing Laboratory [facility] ECHO HEARTLAB MKCKESSON CPACS Narrative Transthoracic Echocardiography Report (TTE) Demographics Patient Name YUSUF DARBY Date of Study 06/13/2017 [id number] Male Visit Number [id number] Accession Number [id number] Room Number B432 Date of Birth1965Referring Physician Age52 year(s)Credit Department Manager Clementina Seymour [facility] Interpreting Murphy Hartley MD Physician Procedure Type [...] External Ris In - 06/13/2017 1:51 PM BENCH MACHINE OPERATOR Transthoracic Echocardiography Report (TTE) Demographics Patient Name YUSUF DARBY Date of Study 06/13/2017 Gender Male Visit Number [id number] Race Unknown Accession Number [id number] Room Number B432 Date of 1965 Referring Physician Age 52 year(s) Credit Department Manager Clementina Seymour [facility] Interpreting Murphy Hartley MD Physician Procedure Type [...] INR 1.0 <=5.9 Specimen Performing Laboratory Blood [facility] [address] [place] [address] Narrative RECOMMENDED COUMADIN/WARFARIN INR THERAPY RANGES STANDARD DOSE: 2.0 - 3.0 Includes: PROPHYLAXIS for venous thrombosis, systemic embolization; TREATMENT for venous thrombosis and/or pulmonary embolus. HIGH RISK: Target INR is 2.5-3.5 for patients with mechanical heart valves. Type and screen ([facility]) (06/12/2017 3:29 PM) Component Value Ref Range Ab Scrn NEGATIVE ABO Grouping A Rh Factor POS Specimen Performing Laboratory Blood [facility] [address] [place] [address] TSH (06/12/2017 3:29 PM) Component Value Ref Range TSH 2.09 0.35 - 5.50 uIU/mL Specimen Performing Laboratory Blood [facility] [address] [place] [address] Comprehensive metabolic panel (06/12/2017 3:29 PM) Component [...] FOR DIALYSIS PATIENTS. Specimen Performing Laboratory Blood [facility] [address] [place] [address] XR chest 1 view portable / bedside [...] MD Report Verified Date/Time:06/10/2017 08:49:42 Reading Location: [facility] Radiology Reading Room Procedure Note Interface, External Ris In - 06/10/2017 8:51 AM BENCH MACHINE OPERATOR FINAL REPORT TECHNIQUE: Frontal chest radiograph dated [...] Report Verified Date/Time: 06/10/2017 08:49:42 Reading Location: [facility] Radiology Reading Room Hepatitis B core antibody, total (06/10/2017 8:13 AM) Component Value Ref Range Hep B Core Total Ab Nonreactive Nonreactive Specimen Performing Laboratory Blood - Arm, Left [address] [address] Hepatitis B surface antibody (06/09/2017 7:06 PM) Component Value Ref Range Hep B S Ab <8.0 <8.0 mIU/mL Specimen Performing Laboratory Blood - Central Venous Line [address] [address] Hepatitis B surface antigen (06/09/2017 7:06 PM) Component Value Ref Range hepatitis B Surface Ag Nonreactive Nonreactive Specimen Performing Laboratory Blood - Central Venous Line [facility] [address] [place] [address] IR Tunneled Catheter Insertion (06/09/2017 11:45 AM) Specimen Performing Laboratory GE RIS Narrative FINAL REPORT Tunneled central venous catheter insertion. History: End-stage renal disease Modality: Sonography and fluoroscopy. Sedation: Moderate sedation was administered. 2 mg of Versed [id number] mcg of fentanyl IV was used for moderate sedation monitored under my direction. Total intra-service time of sedation [id number]. The patient's vital signs were monitored throughout the procedure and recorded in the patient's medical record by the nurse. Enrober:Onesimo Lopez MD. Manager Electronic:None. Approach: Right internal jugular vein Estimated blood [...] needle into the right atrium. A 4 Swiss micropuncture sheath was placed.A subcutaneous tunnel was created in the right anterior chest wall by blunt dissection.A 19 cm tipped cuff 15.5 Swiss Duraflow 2 catheter was brought through the [...] MD Report Verified Date/Time:06/09/2017 12:13:36 Reading Location: [facility] Radiology Reading Room Procedure Note Interface, External Ris In - 06/09/2017 12:21 PM BENCH MACHINE OPERATOR FINAL REPORT Tunneled central venous catheter insertion. [...] the patient's medical record by the nurse. Enrober: Onesimo Lopez MD. Manager Electronic: None. Approach: Right internal jugular vein Estimated [...] needle into the right atrium. A 4 Swiss micropuncture sheath was placed. A subcutaneous tunnel was created in the right anterior chest wall by blunt dissection. A 19 cm tipped cuff 15.5 Swiss Duraflow 2 catheter was brought through the [...] catheter is ready for immediate use. Signed: nOesimo Lopez MD Report Verified Date/Time: 06/09/2017 12:13:36 Reading Location: [facility] Radiology Reading Room /aPTT (06/09/2017 5:15 AM) Component Value Ref Range Protime 10.7 9.3 - 12.0 seconds INR 1.0 <=5.9 PTT 28.5 23.0 - 35.0 seconds Specimen Performing Laboratory Blood - Arm, [facility] [address] [place] [address] Narrative RECOMMENDED COUMADIN/WARFARIN INR THERAPY RANGES STANDARD DOSE: 2.0 - 3.0 Includes: PROPHYLAXIS for venous thrombosis, systemic embolization; TREATMENT for venous thrombosis and/or pulmonary embolus. HIGH RISK: Target INR is 2.5-3.5 for patients with mechanical heart valves. Phosphorus (06/09/2017 5:15 AM) Component Value Ref Range Phosphorus 4.1 2.5 - 4.5 mg/dL Specimen Performing Laboratory Blood - Arm, [facility] [address] [place] [address] Hepatic function panel (06/09/2017 5:15 AM) Component Value Ref Range Protein, Total 6.3 6.0 - 8.5 gm/dL Albumin 3.2 (L) 3.5 - 5.0 g/dL Total Bilirubin 0.4 0.1 - 1.2 mg/dL Bilirubin, Direct 0.2 0.0 - 0.4 mg/dL Alkaline Phosphatase 67 30 - 115 U/L AST 13 5 - 40 U/L ALT 10 5 - 50 U/L Specimen Performing Laboratory Blood - Arm, [facility] [address] [place] [address] after 03/21/2017
--- OUTSIDE RECORDS SUMMARY | 2018-03-22 04:37 | XMS REPORT ---
:1965 Author Organization [facility] Address Critical access hospital [address] [place] [address] Care Team Providers Name Role Phone DWIGHT [...] AT [facility] [address] [place] [address] kpkz=[phone]) [address] [facility] [address] BASIC METABOLIC [id number] 13:51:00 Test Item Value Reference Range Comments SODIUM (BEAKER) (test 139 meq/L 135-148 colk=221) POTASSIUM (BEAKER) (test 3.4 meq/L 3.6-5.5 xgaq=834) CHLORIDE (BEAKER) (test 101 meq/L 98-106 kwss=709) CO2 (BEAKER) (test 29 meq/L 20-29 vvfx=469) BLOOD UREA NITROGEN 11 mg/dL 10-26 (BEAKER) (test rukf=480) CREATININE (BEAKER) (test 2.10 mg/dL 0.50-1.20 mkoq=322) GLUCOSE RANDOM (BEAKER) 157 mg/dL 70-110 (test mlni=934) CALCIUM (BEAKER) (test 8.6 mg/dL 8.5-10.5 ssxt=117) EGFR (BEAKER) (test 33 mL/min/1.73 sq m ESTIMATED GFR IS NOT wowk=7331) ACCURATE CREATININE CLEARANCE IN PREDICTING GLOMERULAR FILTRATION RATE. ESTIMATED GFR IS NOT APPLICABLE FOR DIALYSIS PATIENTS. [id number] 13:44:00 Test Item Value Reference Range Comments MAGNESIUM (BEAKER) (test wqxa=285) 1.9 mg/dL 1.5-3.0 CBC W/PLT COUNT & AUTO [id number] 13:34:00 Test Item Value Reference Range Comments WHITE BLOOD CELL COUNT (BEAKER) (test wgmc=327) 6.8 K/ L 4.0-10.0 RED BLOOD CELL COUNT (BEAKER) (test ohoc=639) 2.92 M/ L 4.20-5.80 HEMOGLOBIN (BEAKER) (test uher=566) 8.4 GM/DL 13.0-16.8 HEMATOCRIT (BEAKER) (test prez=225) 25.5 % 40.0-50.0 MEAN CORPUSCULAR VOLUME (BEAKER) (test yixv=271) 87.4 fL 82.0-98.0 MEAN CORPUSCULAR HEMOGLOBIN (BEAKER) (test 28.7 pg 27.0-33.0 aosr=387) MEAN CORPUSCULAR HEMOGLOBIN CONC (BEAKER) (test 32.8 GM/DL 32.0-36.0 vndd=156) RED CELL DISTRIBUTION WIDTH (BEAKER) (test 14.7 % 10.3-14.2 zxmx=045) PLATELET COUNT (BEAKER) (test jrnj=061) 299 K/CU MM 150-430 MEAN PLATELET VOLUME (BEAKER) (test xkmg=197) 6.9 fL 6.5-10.5 NUCLEATED RED BLOOD CELLS (BEAKER) (test 0 /100 WBC 0-0 ombg=202) NEUTROPHILS RELATIVE PERCENT (BEAKER) (test 65 % rsar=460) LYMPHOCYTES RELATIVE PERCENT (BEAKER) (test 18 % esyc=445) MONOCYTES RELATIVE PERCENT (BEAKER) (test 14 % viwy=808) EOSINOPHILS RELATIVE PERCENT (BEAKER) (test 3 % xufk=420) BASOPHILS RELATIVE PERCENT (BEAKER) (test 1 % dttd=938) NEUTROPHILS ABSOLUTE COUNT (BEAKER) (test 4.40 K/ L 1.80-8.00 inkx=152) LYMPHOCYTES ABSOLUTE COUNT (BEAKER) (test 1.20 K/ L 1.48-4.50 jvpv=419) MONOCYTES ABSOLUTE COUNT (BEAKER) (test 1.00 K/ L 0.00-1.30 pojs=139) EOSINOPHILS ABSOLUTE COUNT (BEAKER) (test 0.20 K/ L 0.00-0.50 trco=978) BASOPHILS ABSOLUTE COUNT (BEAKER) (test 0.00 K/ L 0.00-0.20 xwqk=800) POCT-GLUCOSE [id number] 11:28:00 Test Item Value Reference Range Comments POC-GLUCOSE METER (BEAKER) 147 mg/dL 70-110 TESTED AT [address] (test rezi=7527) [place] [address] POCT-GLUCOSE [id number] 06:04:00 Test Item Value Reference Range Comments POC-GLUCOSE METER (BEAKER) 137 mg/dL 70-110 TESTED AT [address] (test azgk=2130) [place] [address] POCT-GLUCOSE [id number] 21:01:00 Test Item Value Reference Range Comments POC-GLUCOSE METER (BEAKER) 138 mg/dL 70-110 TESTED AT [address] (test xebb=2155) [place] [address] POCT-GLUCOSE [id number] 16:06:00 Test Item Value Reference Range Comments POC-GLUCOSE METER (BEAKER) 167 mg/dL 70-110 TESTED AT [address] (test lgco=4361) [place] [address] POCT-GLUCOSE [id number] 12:49:00 Test Item Value Reference Range Comments POC-GLUCOSE METER (BEAKER) 144 mg/dL 70-110 TESTED AT [address] (test aogl=4491) [place] [address] [id number] 10:27:00 Test Item Value Reference Range Comments POC-CREATININE (BEAKER) 3.6 mg/dL 0.6-1.3 TESTED AT [address] (test prej=2589) [place] [address] POC-EGFR (BEAKER) (test 18 mL/min/1.73M2 dpll=7396) [id number] 10:27:00 Test Item Value Reference Range Comments POC-SODIUM (BEAKER) (test 138 meq/L 135-148 TESTED AT [address] zkpa=1744) [place] [address] [id number] 10:27:00 Test Item Value Reference Range Comments POC-POTASSIUM (BEAKER) 3.6 meq/L 3.6-5.5 TESTED AT [address] (test ctgi=9357) [place] [address] [id number] 10:27:00 Test Item Value Reference Range Comments POC-BUN (BEAKER) (test 20 mg/dL 7-21 TESTED AT [address] nvzb=2345) [place] [address] [id number] 10:27:00 Test Item Value Reference Range Comments POC-CHLORIDE (BEAKER) (test 97 meq/L 98-107 TESTED AT [address] bkyd=7705) [place] [address] [id number] 10:27:00 Test Item Value Reference Range Comments POC-GLUCOSE (BEAKER) (test 123 mg/dL 70-110 TESTED AT [address] bdvz=2620) [place] [address] [id number] 10:27:00 Test Item Value Reference Range Comments POC-HEMATOCRIT (BEAKER) (test 24 % 40-50 TESTED AT [address] frzh=0274) [place] [address] [id number] 10:27:00 Test Item Value Reference Range Comments POC-HEMOGLOBIN (BEAKER) 8.2 g/dL 13.0-16.8 TESTED AT [address] (test gsxr=9862) [place] [address] [id number] 10:27:00 Test Item Value Reference Range Comments POC-TCO2 (BEAKER) (test 30 meq/L 22-29 TESTED AT [address] bray=8426) [place] [address] POCT-GLUCOSE [id number] 06:08:00 Test Item Value Reference Range Comments POC-GLUCOSE METER (BEAKER) 163 mg/dL 70-110 TESTED AT [address] (test zqpb=9334) [place] [address] POCT-GLUCOSE [id number] 21:07:00 Test Item Value Reference Range Comments POC-GLUCOSE METER (BEAKER) 132 mg/dL 70-110 TESTED AT [facility] [address] [place] [address] (test eaoo=8343) [facility] [address] POCT-GLUCOSE [id number] 12:58:00 Test Item Value Reference Range Comments POC-GLUCOSE METER (BEAKER) 178 mg/dL 70-110 TESTED AT [address] (test enoo=5939) [facility] [address] POCT-GLUCOSE [id number] 05:29:00 Test Item Value Reference Range Comments POC-GLUCOSE METER (BEAKER) 171 mg/dL 70-110 TESTED AT [address] (test mhob=7739) [facility] [address] POCT-GLUCOSE [id number] 22:03:00 Test Item Value Reference Range Comments POC-GLUCOSE METER (BEAKER) 249 mg/dL 70-110 TESTED AT [address] (test vbvm=5243) [facility] [address] POCT-GLUCOSE [id number] 16:45:00 Test Item Value Reference Range Comments POC-GLUCOSE METER (BEAKER) 213 mg/dL 70-110 TESTED AT [address] (test ivxq=2991) [facility] [address] [id number] 16:43:00 Test Item Value Reference Range Comments THYROID STIMULATING HORMONE (BEAKER) (test 2.09 uIU/mL 0.35-5.50 kuzo=707) COMPREHENSIVE METABOLIC [id number] 16:24:00 Test Item Value Reference Range Comments TOTAL PROTEIN (BEAKER) 7.2 gm/dL 6.0-8.5 (test opko=551) ALBUMIN (BEAKER) (test 3.5 g/dL 3.5-5.0 xwyg=2906) ALKALINE PHOSPHATASE 67 U/L 30-115 (BEAKER) (test hmli=547) BILIRUBIN TOTAL (BEAKER) 0.3 mg/dL 0.1-1.2 (test sxje=067) SODIUM (BEAKER) (test 136 meq/L 135-148 pfzs=625) POTASSIUM (BEAKER) (test 4.1 meq/L 3.6-5.5 gdqy=080) CHLORIDE (BEAKER) (test 98 meq/L 98-106 krwg=744) CO2 (BEAKER) (test 26 meq/L 20-29 jlrq=291) BLOOD UREA NITROGEN 32 mg/dL 10-26 (BEAKER) (test apin=171) CREATININE (BEAKER) (test 4.40 mg/dL 0.50-1.20 zkly=089) GLUCOSE RANDOM (BEAKER) 212 mg/dL 70-110 (test jxud=151) CALCIUM (BEAKER) (test 9.0 mg/dL 8.5-10.5 megu=624) AST (SGOT) (BEAKER) (test 14 U/L 5-40 bydh=381) ALT (SGPT) (BEAKER) (test 4 U/L 5-50 vpll=294) EGFR (BEAKER) (test 14 mL/min/1.73 sq m ESTIMATED GFR IS NOT wphk=1962) ACCURATE CREATININE CLEARANCE IN PREDICTING GLOMERULAR FILTRATION RATE. ESTIMATED GFR IS NOT APPLICABLE FOR DIALYSIS PATIENTS. CBC W/PLT COUNT & AUTO [id number] 16:02:00 Test Item Value Reference Range Comments WHITE BLOOD CELL COUNT (BEAKER) (test ypti=652) 6.9 K/ L 4.0-10.0 RED BLOOD CELL COUNT (BEAKER) (test amhj=376) 2.95 M/ L 4.20-5.80 HEMOGLOBIN (BEAKER) (test vrjm=180) 8.6 GM/DL 13.0-16.8 HEMATOCRIT (BEAKER) (test jxdj=715) 25.9 % 40.0-50.0 MEAN CORPUSCULAR VOLUME (BEAKER) (test uxzw=686) 87.9 fL 82.0-98.0 MEAN CORPUSCULAR HEMOGLOBIN (BEAKER) (test 29.0 pg 27.0-33.0 paxs=712) MEAN CORPUSCULAR HEMOGLOBIN CONC (BEAKER) (test 33.0 GM/DL 32.0-36.0 fmwh=281) RED CELL DISTRIBUTION WIDTH (BEAKER) (test 15.0 % 10.3-14.2 drdc=057) PLATELET COUNT (BEAKER) (test frfz=495) 330 K/CU MM 150-430 MEAN PLATELET VOLUME (BEAKER) (test nkla=259) 7.1 fL 6.5-10.5 NUCLEATED RED BLOOD CELLS (BEAKER) (test 0 /100 WBC 0-0 xwdw=931) NEUTROPHILS RELATIVE PERCENT (BEAKER) (test 66 % cfuq=067) LYMPHOCYTES RELATIVE PERCENT (BEAKER) (test 16 % ufti=405) MONOCYTES RELATIVE PERCENT (BEAKER) (test 12 % svef=200) EOSINOPHILS RELATIVE PERCENT (BEAKER) (test 5 % csax=173) BASOPHILS RELATIVE PERCENT (BEAKER) (test 1 % uzai=451) NEUTROPHILS ABSOLUTE COUNT (BEAKER) (test 4.60 K/ L 1.80-8.00 lyah=910) LYMPHOCYTES ABSOLUTE COUNT (BEAKER) (test 1.10 K/ L 1.48-4.50 qhxc=041) MONOCYTES ABSOLUTE COUNT (BEAKER) (test 0.80 K/ L 0.00-1.30 qife=407) EOSINOPHILS ABSOLUTE COUNT (BEAKER) (test 0.30 K/ L 0.00-0.50 bbls=417) BASOPHILS ABSOLUTE COUNT (BEAKER) (test 0.10 K/ L 0.00-0.20 wnfz=637) PROTHROMBIN [id number] 16:01:00 Test Item Value Reference Range Comments PROTIME (BEAKER) (test zidu=205) 10.3 seconds 9.3-12.0 INR (BEAKER) (test rzup=147) 1.0 <=5.9 RECOMMENDED COUMADIN/WARFARIN INR THERAPY RANGESSTANDARD DOSE: 2.0 - 3.0 Includes: PROPHYLAXIS forvenous thrombosis, systemic embolization; TREATMENT for venous thrombosis and/or pulmonary embolus.HIGH RISK: Target INR is 2.5-3.5 for patients with mechanical heart valves.POCT-GLUCOSE [id number] 12:01:00 Test Item Value Reference Range Comments POC-GLUCOSE METER (BEAKER) 211 mg/dL 70-110 TESTED AT [facility] [address] [place] [address] (test swmu=0423) [facility] [address] POCT-GLUCOSE [id number] 06:08:00 Test Item Value Reference Range Comments POC-GLUCOSE METER (BEAKER) 191 mg/dL 70-110 TESTED AT [address] (test irsz=9610) [facility] [address] POCT-GLUCOSE [id number] 21:28:00 Test Item Value Reference Range Comments POC-GLUCOSE METER (BEAKER) 233 mg/dL 70-110 TESTED AT [address] (test kzji=4443) [facility] [address] POCT-GLUCOSE [id number] 16:19:00 Test Item Value Reference Range Comments POC-GLUCOSE METER (BEAKER) 290 mg/dL 70-110 TESTED AT [address] (test xmlu=3781) [facility] [address] POCT-GLUCOSE [id number] 13:33:00 Test Item Value Reference Range Comments POC-GLUCOSE METER (BEAKER) 186 mg/dL 70-110 TESTED AT [address] (test mzxx=9212) [facility] [address] POCT-GLUCOSE [id number] 06:27:00 Test Item Value Reference Range Comments POC-GLUCOSE METER (BEAKER) 204 mg/dL 70-110 TESTED AT [address] (test znib=7376) [facility] [address] POCT-GLUCOSE [id number] 21:40:00 Test Item Value Reference Range Comments POC-GLUCOSE METER (BEAKER) 267 mg/dL 70-110 TESTED AT [address] (test sqcp=0357) [facility] [address] POCT-GLUCOSE [id number] 17:32:00 Test Item Value Reference Range Comments POC-GLUCOSE METER (BEAKER) 221 mg/dL 70-110 TESTED AT [address] (test hqym=9279) [facility] [address] HEPATITIS B SURFACE [id number] 14:21:00 Test Item Value Reference Range Comments HEPATITIS B SURFACE ANTIBODY (BEAKER) (test < mIU/mL <8.0 ezsf=183) HEPATITIS B CORE ANTIBODY, [id number] 14:15:00 Test Item Value Reference Range Comments HEPATITIS B CORE TOTAL ANTIBODY (BEAKER) (test Nonreactive Nonreactive ophv=611) POCT-GLUCOSE [id number] 12:18:00 Test Item Value Reference Range Comments POC-GLUCOSE METER (BEAKER) 193 mg/dL 70-110 TESTED AT [address] (test jhjk=7084) [facility] [address] RAD, CHEST, 1 VIEW, NON [id number] 08:49:00Reason for exam:->for outpatient HD placementShould this [...] Hammereport Verified Date/Time: 06/10/2017 08:49:42 Reading Location: [facility] Radiology Reading Room Electronically signed by: SACHI HAMEMR on 2016 08:49 AMPOCT-GLUCOSE [id number] 06:53:00 Test Item Value Reference Range Comments POC-GLUCOSE METER (BEAKER) 177 mg/dL 70-110 TESTED AT [address] (test abbs=6657) [facility] [address] POCT-GLUCOSE [id number] 22:10:00 Test Item Value Reference Range Comments POC-GLUCOSE METER (BEAKER) 109 mg/dL 70-110 TESTED AT [address] (test qmsp=4279) [facility] [address] HEPATITIS B SURFACE [id number] 20:18:00 Test Item Value Reference Range Comments HEPATITIS B SURFACE ANTIGEN (2) (BEAKER) (test Nonreactive Nonreactive nbkt=4371) POCT-GLUCOSE [id number] 17:08:00 Test Item Value Reference Range Comments POC-GLUCOSE METER (BEAKER) 223 mg/dL 70-110 TESTED AT [address] (test hhsy=1100) [facility] [address] POCT-GLUCOSE [id number] 12:47:00 Test Item Value Reference Range Comments POC-GLUCOSE METER (BEAKER) 200 mg/dL 70-110 TESTED AT [address] (test ecem=8397) [facility] [address] ANG, TUNNELED CATHETER [id number] 12:13:00Reason for exam:->renal failureFINAL REPORT Tunneled central [...] the patient's medical record by the nurse. Vacuum Metalizing Supervisor: Onesimo Lopez MD. Manager Oncology: None. Approach: Right internal jugular vein Estimated [...] needle into the right atrium. A 4 Dominican micropuncture sheath was placed. A subcutaneous tunnel was created in the right anterior chest wall by blunt dissection. A 19 cm tipped cuff 15.5 Dominican Duraflow 2 catheter was brought through the [...] Lopez Verified Date/Time: 06/09/2017 12:13:36 Reading Location: [facility] Radiology Reading Room 12 :13 PMPOCT-GLUCOSE [id number] 06:03:00 Test Item Value Reference Range Comments POC-GLUCOSE METER (BEAKER) 208 mg/dL 70-110 TESTED AT [facility] [address] [facility] (test cxov=9199) [address] [facility] [address] BASIC METABOLIC [id number] 06:00:00 Test Item Value Reference Range Comments SODIUM (BEAKER) (test 139 meq/L 135-148 ithq=410) POTASSIUM (BEAKER) (test 3.5 meq/L 3.6-5.5 fvgq=305) CHLORIDE (BEAKER) (test 103 meq/L 98-106 myuw=706) CO2 (BEAKER) (test 26 meq/L 20-29 yqac=122) BLOOD UREA NITROGEN 62 mg/dL 10-26 (BEAKER) (test evso=805) CREATININE (BEAKER) (test 5.10 mg/dL 0.50-1.20 ygzj=853) GLUCOSE RANDOM (BEAKER) 191 mg/dL 70-110 (test lcgx=448) CALCIUM (BEAKER) (test 9.0 mg/dL 8.5-10.5 jofl=099) EGFR (BEAKER) (test 12 mL/min/1.73 sq m ESTIMATED GFR IS NOT lmgx=4183) ACCURATE CREATININE CLEARANCE IN PREDICTING GLOMERULAR FILTRATION RATE. ESTIMATED GFR IS NOT APPLICABLE FOR DIALYSIS PATIENTS. HEPATIC FUNCTION [id number] 05:58:00 Test Item Value Reference Range Comments TOTAL PROTEIN (BEAKER) (test oyyi=315) 6.3 gm/dL 6.0-8.5 ALBUMIN (BEAKER) (test ivek=3096) 3.2 g/dL 3.5-5.0 BILIRUBIN TOTAL (BEAKER) (test qisw=305) 0.4 mg/dL 0.1-1.2 BILIRUBIN DIRECT (BEAKER) (test ybts=702) 0.2 mg/dL 0.0-0.4 ALKALINE PHOSPHATASE (BEAKER) (test jwyp=354) 67 U/L 30-115 AST (SGOT) (BEAKER) (test bbrn=771) 13 U/L 5-40 ALT (SGPT) (BEAKER) (test ecgq=889) 10 U/L 5-50 CBC W/PLT COUNT & AUTO [id number] 05:56:00 Test Item Value Reference Range Comments WHITE BLOOD CELL COUNT (BEAKER) (test fuki=022) 6.3 K/ L 4.0-10.0 RED BLOOD CELL COUNT (BEAKER) (test vuim=306) 2.71 M/ L 4.20-5.80 HEMOGLOBIN (BEAKER) (test dhgr=802) 7.8 GM/DL 13.0-16.8 HEMATOCRIT (BEAKER) (test pbco=658) 23.6 % 40.0-50.0 MEAN CORPUSCULAR VOLUME (BEAKER) (test zjkw=838) 86.8 fL 82.0-98.0 MEAN CORPUSCULAR HEMOGLOBIN (BEAKER) (test 28.6 pg 27.0-33.0 ijqr=804) MEAN CORPUSCULAR HEMOGLOBIN CONC (BEAKER) (test 33.0 GM/DL 32.0-36.0 jznv=713) RED CELL DISTRIBUTION WIDTH (BEAKER) (test 14.8 % 10.3-14.2 nlid=141) PLATELET COUNT (BEAKER) (test frqg=263) 334 K/CU MM 150-430 MEAN PLATELET VOLUME (BEAKER) (test wwtf=832) 6.9 fL 6.5-10.5 NUCLEATED RED BLOOD CELLS (BEAKER) (test 0 /100 WBC 0-0 ukuy=076) NEUTROPHILS RELATIVE PERCENT (BEAKER) (test 57 % cubn=923) LYMPHOCYTES RELATIVE PERCENT (BEAKER) (test 19 % uias=098) MONOCYTES RELATIVE PERCENT (BEAKER) (test 15 % ieod=584) EOSINOPHILS RELATIVE PERCENT (BEAKER) (test 7 % mtxy=154) BASOPHILS RELATIVE PERCENT (BEAKER) (test 1 % xvcn=825) NEUTROPHILS ABSOLUTE COUNT (BEAKER) (test 3.60 K/ L 1.80-8.00 ddec=989) LYMPHOCYTES ABSOLUTE COUNT (BEAKER) (test 1.20 K/ L 1.48-4.50 ojph=305) MONOCYTES ABSOLUTE COUNT (BEAKER) (test 1.00 K/ L 0.00-1.30 wzrw=461) EOSINOPHILS ABSOLUTE COUNT (BEAKER) (test 0.50 K/ L 0.00-0.50 orlf=140) BASOPHILS ABSOLUTE COUNT (BEAKER) (test 0.10 K/ L 0.00-0.20 vibq=368) [id number] 05:55:00 Test Item Value Reference Range Comments PHOSPHORUS (BEAKER) (test awjj=108) 4.1 mg/dL 2.5-4.5 [id number] 05:51:00 Test Item Value Reference Range Comments PROTIME (BEAKER) (test odvh=313) 10.7 seconds 9.3-12.0 INR (BEAKER) (test taxv=424) 1.0 <=5.9 PARTIAL THROMBOPLASTIN TIME (BEAKER) (test 28.5 seconds 23.0-35.0 znik=494) RECOMMENDED COUMADIN/WARFARIN INR THERAPY RANGESSTANDARD DOSE: 2.0 - 3.0 Includes: PROPHYLAXIS forvenous thrombosis, systemic embolization; TREATMENT for venous thrombosis and/or pulmonary embolus.HIGH RISK: Target INR is 2.5-3.5 for patients with mechanical heart valves.[id number] 05:50:00 Test Item Value Reference Range Comments MAGNESIUM (BEAKER) (test epbp=520) 1.7 mg/dL 1.5-3.0 POCT-GLUCOSE [id number] 23:14:00 Test Item Value Reference Range Comments POC-GLUCOSE METER (BEAKER) 230 mg/dL 70-110 TESTED AT [facility] [address] [place] [address] (test sudz=6349) [facility] [address]
[2018-03-22] MEDS ORDERED: MORPHINE 4 MG/ML SYR ONE ×2 (05:14→06:18)
[2018-03-22] MEDS ORDERED: ONDANSETRON 4 MG/2 ML VIAL ONE ×2 (05:14→07:12)
[2018-03-22 05:30] LABS: Absolute Monocytes 0.8 K/uL (0.1-1.3); Absolute Neutrophil 3.4 K/uL (1.8-8.0); Basophils % 2.6 % (0-1.3); Eosinophils % 5.9 % (0-4.4); Hematocrit 34.5 % (39.6-49.0); Lymphocytes % 17.8 % (15.3-44.8); MCH 29.8 pg (27.0-35.0); MCV 90.6 fL (80-100); MPV 7.5 fL (7.6-11.3); RBC Red Blood Cell Count 3.81 M/uL (4.33-5.43)
[2018-03-22 05:48] LABS: Albumin 3.3 g/dL (3.4-5.0); Bilirubin Direct 0.2 mg/dL (0-0.2); Bilirubin Total 0.4 mg/dL (0.2-1.0); Potassium 4.6 mmol/L (3.5-5.1); Protein, Total 7.2 g/dL (6.4-8.2)
--- NOTE | 2018-03-22 06:05 | ER ---
Nurse's Notes [facility] Name: Yusuf Bah Age: 52 yrs Sex: Male : 1965 Arrival Date: 03/22/2018 Time: 04:36 Bed 19 Private MD: Garo Chavarria Diagnosis: Cyclical vomiting, intractable;Unspecified abdominal pain Presentation: 03/22 04:48 Presenting complaint: Patient states: nausea/vomiting and abdominal pain x 2 days. Pt tl2 reports that this has been an ongoing problem for the past year and blood work and CT scans come back normal. Pt states he is supposed to have cholecystectomy tomorrow. Transition of care: patient was not received from another setting of care. Onset of symptoms was March 19, 2018. Risk Assessment: Do you want to hurt yourself or someone else? Patient reports no desire to harm self or others. Initial Sepsis Screen: Does the patient meet any 2 criteria? No. Patient's initial sepsis screen is negative. Does the patient have a suspected source of infection? No. Patient's initial sepsis screen is negative. Care prior to arrival: None. 04:48 Method Of Arrival: Ambulatory tl2 04:48 Acuity: ALVERTO 3 tl2 Triage Assessment: 04:45 General: Appears in no apparent distress. comfortable. Pain: Complains of pain in cc3 umbilical area. EENT: No signs and/or symptoms were reported regarding the EENT system. Neuro: Level of Consciousness is awake, alert, obeys commands, Oriented to person, place, time, situation, Appropriate for age. Cardiovascular: Denies chest pain. Respiratory: Airway is patent Respiratory effort is even, unlabored, Respiratory pattern is regular, symmetrical. GI: Reports pain in the umbilical area. : Reports patient on hemodialysis with right upper chest hemodialysis access; HD every Mondays, Wednesdays, and Fridays as per the patient. Derm: surgical wound on the right arm for fistula. Musculoskeletal: Circulation, motion, and sensation intact. Range of motion: intact in all extremities. Historical: - Allergies: 05:04 Sulfa (Sulfonamide Antibiotics); tl2 - Home Meds: 05:04 Ambien 5 mg Oral tab 1 tab once daily [Active]; aspirin 325 mg Oral tab 1 tab once tl2 daily [Active]; atorvastatin 80 mg Oral tab 1 tab once daily [Active]; clonidine HCl 0.1 mg Oral tab 1 tab 3 times per day [Active]; famotidine 40 mg Oral tab 1 tab once daily [Active]; Humalog Sub-Q per insulin pump [Active]; hydralazine 25 mg Oral tab 3 tab 2 times per day [Active]; lactulose 10 gram/15 mL Oral soln 30 mL once daily [Active]; Lasix 40 mg Oral tab 2 times per day [Active]; metoclopramide HCl 5 mg Oral tab 1 tab three times a day [Active]; metoprolol tartrate 100 mg Oral tab 1 tab 2 times per day [Active]; nitroglycerin 0.2 mg/hr Topical pt24 1 patch once daily [Active]; Nitrostat 0.4 mg SL subl 1 tab every 5 minutes [Active]; Norvasc 10 mg Oral tab 1 tab once daily [Active]; Plavix 75 mg Oral tab 1 tab once daily [Active]; promethazine 25 mg Oral tab 1 tab every 8 hours [Active]; Ranexa 1,000 mg Oral Tb12 1 tab daily [Active]; sertraline 50 mg Oral tab 1 tab once daily [Active]; sevelamer HCl Oral 2 tabs 3 times per day [Active]; Stool Softener 100 mg Oral tab 1 tab 2 times per day [Active]; Travatan Z 0.004 % ophthalmic drop 1 drop once daily [Active]; Vitamin D2 50,000 unit Oral cap 1 cap once wkly [Active]; Zofran (as hydrochloride) 4 mg Oral tab 1 tabs every 6 hours [Active]; - PMHx: 05:04 Angina; CAD; Depression; Diabetes - IDDM; Dialysis; GERD; Glaucoma; High Cholesterol; tl2 Hypertension; Renal Disease; Small vessle disease of the heart; - PSHx: 05:04 Appendectomy; tl2 - Immunization history:: Adult Immunizations up to date. - Social history:: Smoking status: Patient/guardian denies using tobacco. - Family history:: not pertinent. - Ebola Screening: : No symptoms or risks identified at this time. - Hospitalizations: : No recent hospitalization is reported. Screenin:09 Abuse screen: Denies threats or abuse. Nutritional screening: No deficits noted. tl2 Tuberculosis screening: No symptoms or risk factors identified. Fall Risk None identified. Assessment: 04:50 General: see triage assessment. cc3 05:15 Reassessment: Patient appears in no apparent distress at this time. Patient and/or cc3 family updated on plan of care and expected duration. Pain level reassessed. Patient is alert, oriented x 3, equal unlabored respirations, skin warm/dry/pink. 06:05 Reassessment: Patient appears in no apparent distress at this time. Patient and/or cc3 family updated on plan of care and expected duration. Pain level reassessed. Patient is alert, oriented x 3, equal unlabored respirations, skin warm/dry/pink. patient for admission; admission on process. 06:30 Reassessment: Room assigned to [facility], still waiting for admission orders in [facility]. cc3 07:00 Reassessment: Patient appears in no apparent distress at this time. Patient and/or cc3 family updated on plan of care and expected duration. Pain level reassessed. Patient is alert, oriented x 3, equal unlabored respirations, skin warm/dry/pink. Handed over to morning shift for continuity of care. 07:03 General: Appears in no apparent distress. uncomfortable, well developed, Behavior is sv calm, cooperative, appropriate for age. Neuro: Level of Consciousness is awake, alert, obeys commands, Oriented to person, place, time, situation, Moves all extremities. Full function. Respiratory: Respiratory effort is even, unlabored, Respiratory pattern is regular, symmetrical. GI: Reports nausea. Derm: Skin is pink, warm \T\ dry. 07:46 Reassessment: Patient appears in no apparent distress at this time. Patient and/or sv family updated on plan of care and expected duration. Pain level reassessed. Patient is alert, oriented x 3, equal unlabored respirations, skin warm/dry/pink. Vital Signs: 05:04 BP 196 / 90; Pulse 81; Resp 18; Temp 98.8(O); Pulse Ox 98% on R/A; Weight 92.99 kg; tl2 Height 6 ft. 3 in. (190.50 cm); Pain 8/10; 05:15 BP 188 / 77; Pulse 77; Resp 17 S; Pulse Ox 95% on R/A; cc3 06:16 BP 176 / 72; Pulse 75; Resp 18 S; Pulse Ox 95% on R/A; Pain 6/10; cc3 06:47 BP 154 / 63; Pulse 76; Resp 18 S; Pulse Ox 94% on R/A; Pain 5/10; cc3 05:04 Body Mass Index 25.62 (92.99 kg, 190.50 cm) tl2 ED Course: 04:36 Patient arrived in ED. es 04:36 Garo Chavarria MD is Private Physician. es 04:37 Jose Luis Meek MD is Attending Physician. rn 04:45 Elodia Macdonald is Primary Nurse. cc3 04:57 Triage completed. tl2 05:00 Inserted saline lock: 20 gauge in left wrist, using aseptic technique. Blood collected. cc3 05:04 Arm band placed on right wrist. tl2 05:09 Patient has correct armband on for positive identification. Bed in low position. Call tl2 light in reach. Side rails up X 1. 06:04 Garo Chavarria MD is Hospitalizing Provider. rn 07:00 Report given to LUIZ Albright. cc3 07:10 Olivia Albright RN is Primary Nurse. sv 07:12 Basic Metabolic Panel Sent. sv 07:12 No provider procedures requiring assistance completed. Patient admitted, IV remains in sv place. intact. Administered Medications: 05:05 Drug: Zofran 4 mg Route: IVP; Site: left hand; cc3 06:14 Follow up: Response: No adverse reaction; Nausea is decreased cc3 05:10 Drug: morphine 4 mg Route: IVP; Site: left hand; cc3 06:10 Follow up: Response: No adverse reaction; Pain is unchanged, physician notified cc3 06:14 Drug: morphine 4 mg Route: IVP; Site: left wrist; cc3 06:42 Follow up: Response: No adverse reaction; Pain is decreased cc3 07:05 Drug: Zofran 4 mg Route: IVP; Site: left wrist; sv 07:11 Follow up: Response: No adverse reaction sv Outcome: 06:05 Decision to Hospitalize by Provider. rn 07:46 Admitted to Med/surg accompanied by tech, family with patient, via wheelchair, room sv 417, with chart, Report called to Davion DEE 07:46 Condition: stable 07:46 Instructed on the need for admit. 08:03 Patient left the ED. sv Signatures: Olivia Albright RN RN sv Salyer, Edna es Nieto, Roman, MD MD rn Knox, Taylor, RN RN tl2 Elodia Macdonald cc3 Corrections: (The following items were deleted from the chart) 06:31 06:16 BP 176 / 72; Pulse 75bpm; Resp 18bpm; Spontaneous; Pulse Ox 95% RA; cc3 cc3
--- NOTE | 2018-03-22 06:05 | EDPHYS ---
Physician Documentation [facility] Name: Yusuf Bah Age: 52 yrs Sex: Male : 1965 Arrival Date: 03/22/2018 Time: 04:36 Bed 19 Private MD: Garo Chavarria ED Physician Jose Luis Meek HPI: 03/22 04:49 This 52 yrs old Male presents to ER via Unassigned with complaints of rn Vomiting, Abdominal Pain, Back Pain. 04:49 The patient presents to the emergency department with nausea, vomiting, abdominal pain, rn of the umbilical area. Onset: The symptoms/episode began/occurred 2 day(s) ago. The symptoms are aggravated by pressure, food , The symptoms are alleviated by nothing. Associated signs and symptoms: Pertinent positives: abdominal pain, nausea, vomiting. Severity of symptoms: At their worst the symptoms were moderate in the emergency department the symptoms are unchanged. The patient has experienced similar episodes in the past, chronically. The patient has been recently been admitted at [facility]. Reports chronic abd pain and vomiting, admitted here last week for this, had normal ct scan, scheduled for gallbladder surgery tomorrow here by Dr. Yin because of abnormal gallbladder study last week, reports 2 days of worsening vomiting, not getting better and cannot keep food down. No fever, no new symptoms. . Historical: - Allergies: 05:04 Sulfa (Sulfonamide Antibiotics); tl2 - Home Meds: 05:04 Ambien 5 mg Oral tab 1 tab once daily [Active]; aspirin 325 mg Oral tab 1 tab once tl2 daily [Active]; atorvastatin 80 mg Oral tab 1 tab once daily [Active]; clonidine HCl 0.1 mg Oral tab 1 tab 3 times per day [Active]; famotidine 40 mg Oral tab 1 tab once daily [Active]; Humalog Sub-Q per insulin pump [Active]; hydralazine 25 mg Oral tab 3 tab 2 times per day [Active]; lactulose 10 gram/15 mL Oral soln 30 mL once daily [Active]; Lasix 40 mg Oral tab 2 times per day [Active]; metoclopramide HCl 5 mg Oral tab 1 tab three times a day [Active]; metoprolol tartrate 100 mg Oral tab 1 tab 2 times per day [Active]; nitroglycerin 0.2 mg/hr Topical pt24 1 patch once daily [Active]; Nitrostat 0.4 mg SL subl 1 tab every 5 minutes [Active]; Norvasc 10 mg Oral tab 1 tab once daily [Active]; Plavix 75 mg Oral tab 1 tab once daily [Active]; promethazine 25 mg Oral tab 1 tab every 8 hours [Active]; Ranexa 1,000 mg Oral Tb12 1 tab daily [Active]; sertraline 50 mg Oral tab 1 tab once daily [Active]; sevelamer HCl Oral 2 tabs 3 times per day [Active]; Stool Softener 100 mg Oral tab 1 tab 2 times per day [Active]; Travatan Z 0.004 % ophthalmic drop 1 drop once daily [Active]; Vitamin D2 50,000 unit Oral cap 1 cap once wkly [Active]; Zofran (as hydrochloride) 4 mg Oral tab 1 tabs every 6 hours [Active]; - PMHx: 05:04 Angina; CAD; Depression; Diabetes - IDDM; Dialysis; GERD; Glaucoma; High Cholesterol; tl2 Hypertension; Renal Disease; Small vessle disease of the heart; - PSHx: 05:04 Appendectomy; tl2 - Immunization history:: Adult Immunizations up to date. - Social history:: Smoking status: Patient/guardian denies using tobacco. - Family history:: not pertinent. - Ebola Screening: : No symptoms or risks identified at this time. - Hospitalizations: : No recent hospitalization is reported. ROS: 04:49 Constitutional: Negative for fever, chills, and weight loss, Eyes: Negative for injury, rn pain, redness, and discharge, Neck: Negative for injury, pain, and swelling, Cardiovascular: Negative for chest pain, palpitations, and edema, Respiratory: Negative for shortness of breath, cough, wheezing, and pleuritic chest pain, Abdomen/GI: + abd pain/nausea/vomiting MS/Extremity: Negative for injury and deformity, Skin: Negative for injury, rash, and discoloration, Neuro: Negative for headache, numbness, tingling, and seizure. Exam: 04:49 Constitutional: This is a well developed, well nourished patient who is awake, alert rn Head/Face: Normocephalic, atraumatic. Eyes: Pupils equal round and reactive to light, extra-ocular motions intact. ENT: dry MM Cardiovascular: Regular rate and rhythm. No pulse deficits. Respiratory: No increased work of breathing, no retractions or nasal flaring. Abdomen/GI: soft, mild periumbilical tenderness, no rebound MS/ Extremity: Pulses equal, no cyanosis. Neurovascular intact. Full, normal range of motion. Equal circumference. Neuro: Awake and alert, GCS 15, oriented to person, place, time, and situation. Cranial nerves II-XII grossly intact. Motor strength 5/5 in all extremities. Sensory grossly intact. Cerebellar exam normal. Normal gait. Vital Signs: 05:04 BP 196 / 90; Pulse 81; Resp 18; Temp 98.8(O); Pulse Ox 98% on R/A; Weight 92.99 kg; tl2 Height 6 ft. 3 in. (190.50 cm); Pain 8/10; 05:15 BP 188 / 77; Pulse 77; Resp 17 S; Pulse Ox 95% on R/A; cc3 06:16 BP 176 / 72; Pulse 75; Resp 18 S; Pulse Ox 95% on R/A; Pain 6/10; cc3 06:47 BP 154 / 63; Pulse 76; Resp 18 S; Pulse Ox 94% on R/A; Pain 5/10; cc3 05:04 Body Mass Index 25.62 (92.99 kg, 190.50 cm) tl2 MDM: 04:37 Patient medically screened. rn 06:02 Differential diagnosis: Nonspecific abd pain, gastritis, pancreatitis, viral rn gastroenteritis, gastroenteritis, gallbladder disease, gastroparesis. Data reviewed: vital signs, nurses notes, old medical records, lab test result(s), and as a result, I will admit patient. Counseling: I had a detailed discussion with the patient and/or guardian regarding: the historical points, exam findings, and any diagnostic results supporting the discharge/admit diagnosis, lab results, the need for further work-up and treatment in the hospital. Response to treatment: the patient's symptoms have mildly improved after treatment, and as a result, I will admit patient. Admission orders: after a detailed discussion of the patient's condition and case, the admit orders are written by me. ED course: Pt still having nausea and pain, will admit to Dr. Chavarria for further care, especially because of scheduled surgery anyway.. 03/22 04:48 Order name: Basic Metabolic Panel rn 03/22 04:48 Order name: CBC with Diff; Complete Time: 05:57 rn 03/22 04:48 Order name: Hepatic Function; Complete Time: 05:57 rn 03/22 04:48 Order name: Lipase; Complete Time: 05:57 rn 03/22 04:48 Order name: Basic Metabolic Panel; Complete Time: 05:57 EDMS 03/22 04:48 Order name: IV Saline Lock; Complete Time: 05:12 rn 03/22 04:48 Order name: Labs collected and sent; Complete Time: 05:12 rn Administered Medications: 05:05 Drug: Zofran 4 mg Route: IVP; Site: left hand; cc3 06:14 Follow up: Response: No adverse reaction; Nausea is decreased cc3 05:10 Drug: morphine 4 mg Route: IVP; Site: left hand; cc3 06:10 Follow up: Response: No adverse reaction; Pain is unchanged, physician notified cc3 06:14 Drug: morphine 4 mg Route: IVP; Site: left wrist; cc3 06:42 Follow up: Response: No adverse reaction; Pain is decreased cc3 07:05 Drug: Zofran 4 mg Route: IVP; Site: left wrist; sv 07:11 Follow up: Response: No adverse reaction sv Disposition: 03/22/18 06:05 Hospitalization ordered by Garo Chavarria for Observation. Preliminary diagnosis are Cyclical vomiting, intractable, Unspecified abdominal pain. - Bed requested for Telemetry/MedSurg (observation). - Status is Observation. sv - Condition is Stable. - Problem is an acute exacerbation. - Symptoms have improved. UTI on Admission? No Signatures: Dispatcher [employer] [facility] Addis Monahan RN RN kl Verde, Stephanie, RN RN sv Nieto, Roman, MD MD rn Knox, Taylor, RN RN tl2 Elodia Macdonald cc3 Corrections: (The following items were deleted from the chart) 06:26 06:05 Hospitalization Ordered by Garo Chavarria MD for Observation. Preliminary diagnosis kl is Cyclical vomiting, intractable; Unspecified abdominal pain. Bed requested for Telemetry/MedSurg (observation). Status is Observation. Condition is Stable. Problem is an acute exacerbation. Symptoms have improved. UTI on Admission? No. rn 08:03 06:26 03/22/2018 06:05 Hospitalization Ordered by Garo Chavarria MD for Observation. sv Preliminary diagnosis is Cyclical vomiting, intractable; Unspecified abdominal pain. Bed requested for Telemetry/MedSurg (observation). Status is Observation. Condition is Stable. Problem is an acute exacerbation. Symptoms have improved. UTI on Admission? No. kl
[2018-03-22] MEDS ORDERED: ONDANSETRON 4 MG/2 ML VIAL IV PRN (08:20)
[2018-03-22] MEDS: D5 0.45 NS 1,000 ML IV SCH ×2 (08:20→09:04)
[2018-03-22] MEDS ORDERED: ACETAMINOPHEN 500 MG TAB PO PRN (08:20)
[2018-03-22] MEDS ORDERED: ZOLPIDEM TARTRATE 5 MG TABLET PO PRN (09:59)
[2018-03-22] MEDS ORDERED: NITROGLYCERIN 0.2 MG/HR (5 MG) PATCH TD PRN (09:59)
[2018-03-22] MEDS ORDERED: NITROGLYCERIN 0.4 MG/TAB SL PRN (09:59)
[2018-03-22] MEDS: MORPHINE 4 MG/ML SYR IV PRN ×3 (10:58→20:03)
[2018-03-22] MEDS ORDERED: CEFOXITIN/SWI 1gm 1 GM/10 ML SYR IV SCH (11:00)
[2018-03-22] MEDS ORDERED: LACTULOSE 20 GM/30 ML UCUP PO PRN (11:00)
[2018-03-22] MEDS ORDERED: CEFOXITIN SODIUM 1 GM/VIAL IVPB SCH (11:00)
[2018-03-22] MEDS: ONDANSETRON 4 MG/2 ML VIAL IV PRN ×3 (11:09→20:03)
[2018-03-22 11:22] VITALS: BMI 25.6
[2018-03-22] MEDS ORDERED: LORazepam 2 MG/ML VIAL IV ONE (11:40)
[2018-03-22] MEDS: SEVELAMER CARBONATE 800 MG TABLET PO SCH ×2 (12:00→20:19)
--- NOTE | 2018-03-22 12:01 | CON ---
Date of Consultation: 03/22/2018 Reason: Abdominal pain. History Of Present Illness: The patient is a 52-year-old gentleman who I saw recently in the [facility] with biliary dyskinesia and chronic cholecystitis, and he was on blood thinner. He was discharged. I saw him in the office last week, and he was scheduled to undergo elective cholecystectomy tomorro w. However, yesterday he started having epigastric pain going to the back, associated with nausea an d vomiting. He was unable to keep any of his medications down. Therefore, he was admitted, was note d to have elevated lipase, and I was consulted. He is currently awake, alert, and denies any abdomin al pain. Nausea and vomiting have resolved. No fever or chills. No sore throat, runny nose, cough, headaches, or dizziness. No chest pain. Review of Systems: Otherwise unremarkable. Past Medical History: Significant for hypertension type 2 diabetes, end-stage renal disease, coronar y artery disease, hyperlipidemia, chronic back pain. Past Surgical History: Open appendectomy for perforated appendicitis, rotator cuff surgery, eye surg alfredo, AV graft in the right upper extremity. Allergies: INCLUDE SULFA. Social History: He does not smoke or drink. Family History: Significant for throat cancer, tuberculosis, hypertension, diabetes. Physical Examination: Vital Signs: Currently are stable. His blood pressure is elevated, however, and he is being treated for that. He is afebrile. General: He is awake, alert, and oriented x3. Head and Neck: Cranial nerves 2 through 12 are grossly within normal. No neck masses. No JVD. Thr oat clear. Neck is supple. Chest: Clear. Heart: S1, S2. Abdomen: Soft, nondistended, nontender. Positive bowel sounds. Extremities: Neurovascularly intact. Neuro: Nonfocal. Laboratory Data: White count is 5.7, H and H is 11.3 and 34.5, platelets are 291. There is no left shift. Chemistry reviewed, his BUN is 32, creatinine 6.8. AST and ALT are actually low. Alkaline p hosphatase is normal. Total bilirubin is normal. Lipase, however, was 428 this morning. Assessment: A 52-year-old gentleman with chronic cholecystitis secondary to sludge. Biliary dyskine camille, as per the HIDA scan was done on last admission with an elevated lipase, although the likelihood of a stone in the duct is small. Recommendation: Would be to admit the patient. Hydrate the patient. He needs dialysis today and me dically stabilized. We will go ahead and order an MRCP to evaluate the common bile duct to make sure there is no stone or stricture or mass in that area accounting for the elevated lipase and following which we will proceed with a laparoscopic cholecystectomy, if possible open. The patient understand s the risks, benefits, and alternatives and agrees to procedure. KINGSLEY/NESSA Voice ID: [id number] Report ID: [id number]
--- NOTE | 2018-03-22 13:13 | RAD REPORT ---
EXAM DESCRIPTION: MRI - Cholangiogram - 03/22/2018 12:25 pm CLINICAL HISTORY: CBD stone/mass COMPARISON: Abdomen Exam Complete dated 03/11/2018; CT ANGIO ABD/PELVIS W CONTRAST dated 01/26/2018 FINDINGS: Three-dimensional MRCP was performed using maximum intensity projection reconstruction on the same work station. No intrahepatic biliary tree dilatation is seen. The common bile duct is normal caliber without evide nce of retained stone, stricture or mass. The pancreatic duct is not pathologically dilated. The gallbladder is unremarkable. Limited T2 sequences through the abdomen demonstrates small bilateral pleural effusions. Bilateral re nal cysts are noted. No bulky adenopathy is seen in the abdomen. No abscess. IMPRESSION: Negative MR cholangiogram.
[2018-03-22] MEDS: cloNIDine HCl 0.1 MG TAB PO SCH ×2 (13:57→20:20)
[2018-03-22] MEDS: METOCLOPRAMIDE 5 MG TAB PO SCH ×2 (13:58→20:19)
[2018-03-22] MEDS: METOPROLOL TAR 50 MG TAB PO SCH (20:18)
[2018-03-22] MEDS: DOCUSATE NA/SENNA CONC 1 TAB PO SCH (20:19)
[2018-03-22] MEDS: ATORVASTATIN 80 MG TAB PO SCH (20:19)
[2018-03-22] MEDS: FUROSEMIDE 40 MG TABLET PO SCH (20:19)
[2018-03-22] MEDS: FAMOTIDINE 20 MG TAB PO SCH (20:20)
[2018-03-22] MEDS ORDERED: HYDRALAZINE HCL 25 MG TABLET PO SCH (21:00)
[2018-03-22] MEDS: HOME MED 1 EA UNK (Travoprost (Benzalkonium) [Travatan 0.004% Eye Drop] 1 DROP) EACH EYE SCH (21:00)
[2018-03-23] MEDS: ONDANSETRON 4 MG/2 ML VIAL IV PRN ×3 (00:13→19:56)
[2018-03-23] MEDS: MORPHINE 4 MG/ML SYR IV PRN ×4 (00:13→15:23)
[2018-03-23] MEDS ORDERED: DESMOPRESSIN 20 MCG in NA CHLORIDE 0.9% 50 ML IV ONE ×2 (01:00→08:00)
--- NOTE | 2018-03-23 04:04 | CON ---
Date of Consultation: 03/22/2018 Additional Consulting Physician: ER. Reason For Consultation: Elevated BUN and creatinine, hypertension, end-stage renal disease. History Of Present Illness: This is a pleasant 52-year-old gentleman with significant past medical h istory of diabetes, hypertension; coronary artery disease complicated with congestive heart failure, diastolic dysfunction; secondary hyperparathyroidism; peripheral vascular disease; hyperlipidemia. T he patient had recurrent admission with abdominal pain, found to have cholelithiasis. The patient delonte arana today came with abdominal pain, nausea, and vomiting. Found to have cholelithiasis. Surgery was consulted to plan for cholecystectomy tomorrow. Past Medical History: As above. Social History: Denies smoking, denies drinking, denies drug abuse. Family History: Positive for coronary artery disease. Past Surgical History: Include PermCath AV fistula. Review of Systems: Head and Neck: No red eye. No ear pain. GI: Has nausea, vomiting. No diarrhea. : No polyuria. No dysuria. No hematuria. DATA CENTER CONSULTANT: Not applicable. Respiratory: No shortness of breath. Cardiovascular: No chest pain. Endocrine: No polydipsia. Skin: No rash. Neuro: Has neuropathy. Musculoskeletal: No joint pain. Physical Examination: Vital Signs: When I saw the patient, the patient was lying in bed. Blood pressure of 200/90, pulse of 79. Chest: Clear to auscultation. Heart: S1, S2. Regular. Abdomen: Soft, nontender. Extremities: No edema. Neuro: Alert, oriented x3. No focal. Home Medications: Include: 1.Lactulose. 2.Zofran. 3.Plavix. 4.Nitroglycerin. 5.Pepcid. 6.Metoclopramide. 7.Ranexa. 8.Metoprolol. 9.Lasix. 10.Norvasc. Current Medications: In the hospital include: 1.Norvasc. 2.Cephalexin. 3.Hydralazine 75 b.i.d. 4.Nitroglycerin. 5.Ranexa. 6.Ambien. Laboratory Data: WBC 5.7, H and H 11.3/34.5, platelets 291. Sodium 139, potassium 4.6, bicarb 25, B UN 32, creatinine 6.8, calcium 8.5. Assessment And Plan: 1.End-stage renal disease. We will arrange for dialysis today. 2.Hypertension, uncontrolled. I am going to go ahead and increase the hydralazine to 100 t.i.d. for better blood pressure control and given that the patient is going to be n.p.o., I am going to place the patient on p.r.n. hydralazine and place the patient on nitroglycerin patch. 3.Cholelithiasis. The plan for surgery tomorrow. We will follow up. 4.Diabetes as by primary. DANIEL/NESSA Voice ID: [id number] Report ID: [id number]
--- NOTE | 2018-03-23 05:04 | HP ---
Date of Admission: 03/22/2018 Chief Complaint: Nausea, vomiting. History Of Present Illness: This is a 52-year-old male patient with multiple comorbidities has biliary dyskinesia problem. This problem is causing recurrent nausea and vomiting problem requiring him to come to emergency room on multiple occasions and has prior hospital admissions for that also. His last hospital admission was about a week ago and last week we did obtain the HIDA scan, it showed evidence of biliary dyskinesia and general surgeon, Dr. Yin was consulted. Cardiology clearance was obtained from Dr. Esqueda. The patient's aspirin and Plavix were stopped last week on Tuesday or Tuesday, and Dr. Yin is planning to do surgery on him tomorrow. After he was discharged to go home from the hospital, he has returned to emergency room 1 or 2 times with the same problem and after he was treated in the ER, he was released to go home. He came back again last night to emergency room with a 2 days history of nausea, vomiting, not able to keep anything down and after he was evaluated in the ER, he was admitted to the hospital. I saw him in the emergency room this morning. Denies any fever or chills. No abdominal pain. Allergies: TO SULFA. Medications: Medication list reviewed. Review of Systems: GI: As mentioned above. All other systems reviewed and negative. Past Medical History: Significant for hypertension, type 2 diabetes mellitus with chronic kidney disease, end-stage renal disease on hemodialysis, coronary artery disease, anemia due to chronic kidney disease, hyperlipidemia, gastritis , biliary dyskinesia, chronic back pain. Past Surgical History: Significant for rotator cuff surgery, appendectomy, eye surgery, recently had AV graft placed in right upper extremity and this was done last month. Family History: Significant for throat cancer, tuberculosis, diabetes, hypertension. Social History: Negative for smoking and alcohol use. Physical Examination: Vital Signs: BP 196/90, pulse 81, respiratory rate 18, temperature 98.3, oxygen saturation 98%, weight 92.99 kg, height 6' 3". General: Awake, alert, oriented, not in distress. HEENT: Head atraumatic, normocephalic. Conjunctivae nonerythematous. Sclerae white. Mouth, no thrush or edema noted. Ears/Nose, no mass, lesion, discharge noted. Neck: Supple. No JVD, lymph nodes, bruit, thyromegaly noted. Lungs: Bilateral good equal air entry. Clear to auscultation. No rhonchi. No rales. Heart: Normal heart sounds, no murmur or gallop. Abdomen: Soft, bowel sounds normal. No guarding, rigidity, tenderness, mass, hepatosplenomegaly, distention, or bruit noted. Extremities: No leg edema. No calf tenderness. Skin: No rash, ulcer, cellulitis. Lymphatics: No lymph node enlargement in neck, supraclavicular, infraclavicular region. Neuro: No focal neurological deficit. Chest: Unremarkable. External Genitalia: Deferred. Rectal: Deferred. Labs: White count 5.7, hemoglobin 11.3, platelets 291. Sodium 139, potassium 4.6, chloride 103, bicarb 25, BUN 32, creatinine 6.80, glucose 114. Liver function tests unremarkable. Lipase 420. Impression: 1. Biliary dyskinesia. 2. End-stage renal disease, on hemodialysis. 3. Hypertension. 4. Diabetes mellitus with kidney disease. 5. End-stage renal disease. 6. Anemia due to chronic kidney disease. 7. Hyperlipidemia. 8. Coronary artery disease. 9. Chronic gastritis. Plan: Admit the patient to hospital for further evaluation and management of this problem. We will continue home medications per order. Give symptomatic treatment for nausea, vomiting, and back pain per order. Consult Dr. Yin from General Surgery. We will leave the patient on clear liquid diet today, n.p.o. after midnight for possible gallbladder surgery tomorrow. Consult business database analyst for dialysis need. I will see him tomorrow for followup. The patient has confirmed with me this morning when I talked to him that he has not taken any aspirin or Plavix since his last discharge per instruction. ERNESTO/MODL Voice ID: [id number]
[2018-03-23 05:10] LABS: Urine Appearance CLOUDY; Urine Bilirubin NEGATIVE (NEG); Urine Blood TRACE (NEG); Urine Color YELLOW; Urine Glucose 1+ (NEG); Urine Protein 3+ (NEG); Urine Urobilinogen 0.2 mg/dL (0.2-1.0)
[2018-03-23 05:11] LABS: Urine Microscopic Reflex ORDER UMIC
[2018-03-23 05:32] LABS: Urine Amorphous Sediment 1+ /HPF (NONE SEEN); Urine Bacteria <20 /HPF (NONE SEEN); Urine Coarse Granular Casts 0-5 /LPF (NONE SEEN); Urine Culture Reflex Order NOT NEEDED; Urine RBC <5 /HPF (NONE SEEN)
[2018-03-23 05:54] LABS: Absolute Lymphocytes (CBC) 1.2 K/uL (0.7-4.9); Absolute Monocytes 0.8 K/uL (0.1-1.3); Absolute Neutrophil 2.4 K/uL (1.8-8.0); Basophils % 1.8 % (0-1.3); Eosinophils % 9.2 % (0-4.4); Hematocrit 30.9 % (39.6-49.0); MCH 30.6 pg (27.0-35.0); MCV 90.7 fL (80-100); MPV 7.5 fL (7.6-11.3); Monocytes % 15.8 % (3.3-12.3)
[2018-03-23 06:10] LABS: Albumin 2.9 g/dL (3.4-5.0); Bilirubin Direct 0.1 mg/dL (0-0.2); Bilirubin Total 0.4 mg/dL (0.2-1.0); Protein, Total 6.4 g/dL (6.4-8.2)
[2018-03-23] MEDS: PROMETHAZINE 25 MG/ML VIAL IV PRN (07:48)
[2018-03-23] MEDS: SEVELAMER CARBONATE 800 MG TABLET PO SCH ×3 (08:00→17:21)
[2018-03-23 08:03] LABS: Blood Morphology Comment NOT SEEN (NOT SEEN); Platelet Estimate ADEQ; Urine White Blood Cell Casts OK
[2018-03-23] MEDS: METOPROLOL TAR 50 MG TAB PO SCH ×2 (08:27→19:54)
[2018-03-23] MEDS: METOCLOPRAMIDE 5 MG TAB PO SCH ×3 (09:00→19:55)
[2018-03-23] MEDS: HYDRALAZINE HCL 25 MG TABLET PO SCH ×3 (09:00→19:54)
[2018-03-23] MEDS: AMLODIPINE 10 MG TAB PO SCH (09:00)
[2018-03-23] MEDS: DOCUSATE NA/SENNA CONC 1 TAB PO SCH ×2 (09:00→19:55)
[2018-03-23] MEDS: FUROSEMIDE 40 MG TABLET PO SCH ×2 (09:00→17:21)
[2018-03-23] MEDS: SERTRALINE HCL 50 MG TAB PO SCH (09:00)
[2018-03-23] MEDS ORDERED: DESMOPRESSIN 4 MCG/ML AMP IV ONE (09:00)
[2018-03-23] MEDS ORDERED: BUPIVACAINE 0.5% PF 10 ML VIAL ONE (09:06)
[2018-03-23] MEDS ORDERED: NA CHLORIDE 0.9% 500 ML ONE (09:17)
[2018-03-23] MEDS: HYDRALAZINE HCL 20 MG/ML VIAL IV PRN (09:25)
[2018-03-23] MEDS ORDERED: MIDAZOLAM HCL 2 MG/2 ML INJ ONE (10:09)
[2018-03-23] MEDS ORDERED: PROPOFOL 200 MG/20 ML VIAL IV ONE (10:09)
[2018-03-23] MEDS ORDERED: LIDOCAINE 2% MPF 5 ML VIAL ONE (10:10)
[2018-03-23] MEDS ORDERED: FENTANYL CITR 250 MCG/5 ML ONE (10:10)
[2018-03-23] MEDS ORDERED: ROCURONIUM 50 MG/5 ML VIAL IV ONE (10:10)
[2018-03-23] MEDS ORDERED: ONDANSETRON HCL 40 MG/20 ML VIAL ONE (10:10)
[2018-03-23] MEDS ORDERED: GLYCOPYRROLATE 0.2 MG/ML SYR ONE ×2 (10:37→11:14)
[2018-03-23] MEDS ORDERED: EPHEDRINE SULF 50 MG/10 ML SYR ONE (11:14)
--- NOTE | 2018-03-23 11:38 | P.OP ---
Case Operator: Nick FARR Preoperative diagnosis: Chronic Cholecystitis and Biliary Dyskinesia Postoperative diagnosis: same with Extensive adhesions Primary procedure: Lap Jocelyn, BENEDICTO Anesthesia: General Estimated blood loss: min Specimen: GB Findings: as above Complications: None Transferred to: Recovery Room Condition: Good
[2018-03-23] MEDS: MEPERIDINE HCL 50 MG/ML AMP ONE ×4 (12:20→12:40)
[2018-03-23] MEDS ORDERED: ONDANSETRON 4 MG/2 ML VIAL ONE (12:25)
[2018-03-23] MEDS ORDERED: PROMETHAZINE 25 MG/ML VIAL ONE (12:31)
[2018-03-23] MEDS: HYDROMORPHONE HCL 1 MG/ML INJ IV PRN ×2 (17:11→19:55)
[2018-03-23] MEDS: CEFOXITIN/SWI 1gm 1 GM/10 ML SYR IVP SCH (17:21)
[2018-03-23] MEDS: ATORVASTATIN 80 MG TAB PO SCH (19:53)
[2018-03-23] MEDS: FAMOTIDINE 20 MG TAB PO SCH (19:55)
[2018-03-23] MEDS: HOME MED 1 EA UNK (Travoprost (Benzalkonium) [Travatan 0.004% Eye Drop] 1 DROP) EACH EYE SCH (21:00)
--- NOTE | 2018-03-23 22:10 | P.PN ---
Subjective Date of Service: 03/23/18 ESRD admitted for elective cholecystectomy No nausea, vomiting, diarrhea or constipation Physical Examination - Vital Signs Temperature: 97.3 F Blood Pressure: 158/66 Pulse: 72 Respirations: 18 Pulse Ox (%): 92 - Physical Exam General: Oriented x3 HEENT: Atraumatic Neck: Without JVD or thyroid abnormality Respiratory: Clear to auscultation bilaterally Cardiovascular: No edema Gastrointestinal: Normal bowel sounds Assessment And Plan - Current Problems (Diagnosis) (1) Anemia due to chronic kidney disease Onset Date: 03/14/18 Current Visit: No Status: Chronic (2) ESRD (end stage renal disease) Onset Date: 01/25/18 Current Visit: No Status: Chronic - Plan A pleasant 52-year-old gentleman with PMHx of diabetes, hypertension; coronary artery disease , Diastolic CHF ; secondary hyperparathyroidism; PVD; hyperlipidemia. The patient had recurrent admission with abdominal pain, found to have cholelithiasis. The patient again today came with abdominal pain, nausea, and vomiting. Found to have cholelithiasis. Assessment And Plan: 1. End-stage renal disease. HD MF Renal diet Adjust meds as per RFT 2.Hypertension, Better controlled now Hydralazine 100 tid, metoprolol 100bid, Norvasc 10 3. Recurrent episodes of abd pain Cholelithiasis S/P cholecystectomy 03/23 4.Diabetes as by primary. 5. MBD Sharath 6 Anemia Hb >10 no need for GATO
--- NOTE | 2018-03-24 00:24 | OP ---
Date of Procedure: 03/23/2018 Surgeon: Jorge Yin MD House Painter Helper: CHIKA Coffman Preoperative Diagnoses: Chronic cholecystitis and biliary dyskinesia. Postoperative Diagnoses: Chronic cholecystitis and biliary dyskinesia with extensive adhesions. Estimated Blood Loss: Minimal. Specimen: Gallbladder. Finding: As above. Anesthesia: General. Complications: None. Disposition: The patient tolerated the procedure in stable condition and taken to Recovery in good g eneral condition. Procedure In Detail: The patient was brought to the OR and placed in supine position. General anest hesia was begun. The patient was prepped and draped in the usual sterile fashion. Marcaine 0.5% was infiltrated locally. A 15-blade used to make a 1 cm supraumbilical midline incision. Subcutaneous tissue divided. The fascia was identified and divided and peritoneal cavity entered with sharp and b vanessa dissection. A 12 mm trocar was placed into the peritoneal cavity and the camera revealed extens elodia adhesion which I could not even have enough room to put another trocar in. So, an epigastric inc ision just to the right of midline was made. Subcutaneous tissue divided. Fascia was identified and divided. A #1 Vicryl stay suture was placed. Peritoneal cavity was entered with sharp and blunt di ssection and 12 mm trocar was placed into the peritoneal cavity under direct vision. Pneumoperitoneu m was established and I was able to visualize the right upper quadrant. There were lots of adhesions . A 5 mm trocar was placed in the right subcostal region and then LigaSure was used to divide all th marga adhesions, and then I was able to put 2 more trocars in safely, one 5 mm, one 10 mm, and then the gallbladder was identified. There was extensive adhesions to the gallbladder which is again lysed w ith the LigaSure and then fundus was retracted superiorly. Infundibulum was identified and retracted inferolaterally. Cystic duct and cystic artery were clearly identified with blunt dissection. Clip s placed. Both structures were divided. Cautery used to remove the gallbladder from the liver bed. Bleeding on the liver bed was controlled with cautery and then gallbladder retrieved through the epi gastric incision via EndoCatch bag. Right upper quadrant was irrigated. Effluent was clear and no e vidence of bleeding or bile leakage appreciated. Subsequently, all trocars were removed under direct vision. Stay sutures tied to each other across the fascial defect. Subcutaneous wounds were irriga joseph. Bleeding controlled with cautery. A 3-0 chromic used to approximate subcutaneous tissue and st aples used to close the skin. Sterile dressing was applied. The patient was awakened and taken to R ecovery in good general condition. KINGSLEY/NESSA Voice ID: [id number] Report ID: [id number]
[2018-03-24] MEDS: ONDANSETRON 4 MG/2 ML VIAL IV PRN ×2 (00:25→06:11)
[2018-03-24] MEDS: HYDROMORPHONE HCL 1 MG/ML INJ IV PRN ×6 (00:25→14:52)
--- NOTE | 2018-03-24 00:38 | PN ---
Date of Progress Note: 03/23/2018 Subjective: The patient was seen this morning for followup. No new complaints or problems reported by him. Objective: Vital Signs: Reviewed. HEENT: Unremarkable. Lungs: Clear to auscultation. Heart: Sounds normal. Abdomen: Soft. Bowel sounds normal. No guarding, rigidity, tenderness, distention. Extremities: No leg edema. Impression: 1.Biliary dyskinesia. 2.End-stage renal disease, on hemodialysis. 3.Hypertension. 4.Diabetes mellitus. Plan: The patient had gallbladder surgery today. Details were discussed with Dr. Yin after surger y, and she has suggested for the patient to restart his aspirin and Plavix, possibly tomorrow dependi ng on his blood work result. Possible discharge to go home tomorrow depending on his condition as we ll. ERNESTO/MODLaura Voice ID: [id number] Report ID: [id number]
[2018-03-24] MEDS: CEFOXITIN/SWI 1gm 1 GM/10 ML SYR IVP SCH ×2 (02:33→06:00)
[2018-03-24] MEDS: PROMETHAZINE 25 MG/ML VIAL IV PRN ×2 (02:45→14:53)
[2018-03-24] MEDS: HYDRALAZINE HCL 20 MG/ML VIAL IV PRN (02:46)
[2018-03-24 05:13] LABS: Absolute Lymphocytes (CBC) 0.6 K/uL (0.7-4.9); Absolute Monocytes 0.8 K/uL (0.1-1.3); Absolute Neutrophil 4.2 K/uL (1.8-8.0); Basophils % 0.9 % (0-1.3); Eosinophils % 3.8 % (0-4.4); Hematocrit 32.4 % (39.6-49.0); Lymphocytes % 10.6 % (15.3-44.8); MCH 30.4 pg (27.0-35.0); MCV 92.4 fL (80-100); MPV 7.1 fL (7.6-11.3); Monocytes % 13.8 % (3.3-12.3); RBC Red Blood Cell Count 3.51 M/uL (4.33-5.43)
[2018-03-24 05:35] LABS: Magnesium 2.2 mg/dL (1.8-2.4); Phosphorus 5.7 mg/dL (2.5-4.9); Potassium 5.3 mmol/L (3.5-5.1)
[2018-03-24] MEDS: METOCLOPRAMIDE 5 MG TAB PO SCH ×2 (08:44→14:00)
[2018-03-24] MEDS: SEVELAMER CARBONATE 800 MG TABLET PO SCH ×3 (08:44→17:00)
[2018-03-24] MEDS: AMLODIPINE 10 MG TAB PO SCH (08:44)
[2018-03-24] MEDS: DOCUSATE NA/SENNA CONC 1 TAB PO SCH (08:44)
[2018-03-24] MEDS: FUROSEMIDE 40 MG TABLET PO SCH (08:44)
[2018-03-24] MEDS: HYDRALAZINE HCL 25 MG TABLET PO SCH ×2 (08:45→14:00)
[2018-03-24] MEDS: SERTRALINE HCL 50 MG TAB PO SCH (08:45)
[2018-03-24] MEDS: METOPROLOL TAR 50 MG TAB PO SCH (08:45)
[2018-03-24] MEDS: MORPHINE 4 MG/ML SYR IV PRN ×2 (09:00→13:02)
[2018-03-24 09:43] VITALS: O2SAT 93
[2018-03-24] MEDS ORDERED: CLOPIDOGREL 75 MG TABLET PO ONE (12:00)
[2018-03-24] MEDS ORDERED: ASPIRIN EC 81 MG TAB PO ONE (12:00)
--- NOTE | 2018-03-24 12:41 | P.PN ---
Subjective Date of Service: 03/24/18 ESRD admitted for elective cholecystectomy No nausea, vomiting, diarrhea or constipation Today have abd pain BP elevated pain control HD today will monitor BP for now , resumed home meds Physical Examination - Vital Signs Temperature: 100.1 F Blood Pressure: 183/83 Pulse: 93 Respirations: 18 Pulse Ox (%): 93 - Physical Exam General: Oriented x3 HEENT: Atraumatic Neck: Supple, JVD not distended Respiratory: Clear to auscultation bilaterally, Normal air movement (Rt arm edema ) Assessment And Plan - Current Problems (Diagnosis) (1) Anemia due to chronic kidney disease Onset Date: 03/14/18 Current Visit: No Status: Chronic (2) ESRD (end stage renal disease) Onset Date: 01/25/18 Current Visit: No Status: Chronic - Plan A pleasant 52-year-old gentleman with PMHx of ESRD on HD MWF via Rt PC had non mature Rt AVF , diabetes, hypertension; coronary artery disease , Diastolic CHF ; secondary hyperparathyroidism; PVD; hyperlipidemia. The patient had recurrent admission with abdominal pain, found to have cholelithiasis. The patient again today came with abdominal pain, nausea, and vomiting. Found to have cholelithiasis. Today HD today BP elevated , started on clonidine pain control electrolytes ok Hb ok Assessment And Plan: 1.End-stage renal disease. HD MF Renal diet Adjust meds as per RFT 2.Hypertension, Hydralazine 100 tid, metoprolol 100bid, Norvasc 10 Clonidine 3. Recurrent episodes of abd pain Cholelithiasis S/P cholecystectomy 03/23 4.Diabetes as by primary. 5. MBD Renvela 6 Anemia Hb >10 no need for GATO
--- NOTE | 2018-03-24 14:57 | PN ---
Date of Progress Note: 03/24/2018 Subjective: The patient is awake, alert, tolerating diet. No nausea or vomiting. He is complaining of right-sided abdominal, requiring parenteral pain management. Objective: Vital Signs: Stable. He is afebrile. Abdomen: Soft, nondistended. Minimal incisional tenderness. Laboratory Data: Reviewed. No significant changes. Assessment: Status post laparoscopic cholecystectomy and lysis of adhesions. Recommendations: The patient did have quite a bit of dissection done, so once we can control his karla n with oral pain medicine which I ordered, he can be discharged to home. Follow up with me in 1 week . The patient requires dialysis as well, so we will wait and see how he feels after dialysis. /MODL Voice ID: [id number] Report ID: [id number]
[2018-03-24] MEDS ORDERED: CODEINE 30MG/APAP 300MG TAB PO PRN (15:17)
[2018-03-24 16:53] VITALS: BP 158/72; TEMP 99.7
--- NOTE | 2018-03-25 06:09 | DS ---
Date of Discharge: 03/24/2018 Disposition: Discharged to go home. Physical Examination: HEENT: Unremarkable. Lungs: Clear to auscultation. Heart: Sounds normal. Abdomen: Soft. Bowel sounds normal. No guarding, rigidity, tenderness, or distention. Extremities: No leg edema. Laboratory Data: Last white count this morning 5.9, hemoglobin 10.6, and platelets 258. Yesterday, white count 4.9, hemoglobin 10.4, and platelets 261. Today, his sodium 136, potassium 5.3, chloride 102, bicarb 25, BUN 31, creatinine 7.80, and glucose 103. Hospital Course: A 52-year-old male patient who was admitted to the hospital with nausea and vomiting problem. Please see dictated H and P for more information. After patient was evaluated in the emergency room, he was admitted to the hospital. See dictated H and P for more information and details. He had hemodialysis done on the day of admission; and then yesterday, he had laparoscopic cholecystectomy done by Dr. Yin. He did very well after surgery this morning. He has not had any complaints except some soreness around the surgical incision site. The patient's dialysis is due today after dialysis. We will plan to discharge him to go home. I did talk to Dr. Yin yesterday, and he has given his okay for the patient to restart his aspirin and Plavix. I see that the patient takes aspirin 325 mg daily at home. Instead of that, we will reduce his dose to 81 mg daily, and Plavix 75 mg daily will be continued. Both of these medications will be given today; and at home, he can start it as of tomorrow. Discharge Diagnoses: 1. Biliary dyskinesia. 2. End-stage renal disease, on hemodialysis. 3. Coronary artery disease. 4. Hypertension. 5. Diabetes mellitus type 2 with chronic kidney disease. 6. Anemia due to chronic kidney disease. 7. Hyperlipidemia. 8. Chronic gastritis. ERNESTO/MODL Voice ID: [id number] Report ID: [id number] MARYAM
[2018-03-29] MEDS ORDERED: CLONIDINE 0.1 MG/PATCH TD SCH (09:00)
== END 2018-03-24 17:53 | disposition home or self-care (01) ==
LOC: ER 04:33 → ERHOLD 06:07 → 4TH 06:42
PROVIDERS: ADMIT Internal Medicine; ATTEND Internal Medicine
PROC: 5A1D70Z Performance of Urinary Filtration, Intermittent, Less than 6 Hours Per Day (ICD-10-PCS; 2018-03-22)
PROC: 0DNW4ZZ Release Peritoneum, Percutaneous Endoscopic Approach (ICD-10-PCS; 2018-03-23)
PROC: 0FT44ZZ Resection of Gallbladder, Percutaneous Endoscopic Approach (ICD-10-PCS; principal; 2018-03-23 10:00)
PROC: 5A1D70Z Performance of Urinary Filtration, Intermittent, Less than 6 Hours Per Day (ICD-10-PCS; 2018-03-24)
DX: K81.1 Chronic cholecystitis (principal); K82.8 Other specified diseases of gallbladder; K66.0 Peritoneal adhesions (postprocedural) (postinfection); I13.2 Hypertensive heart and chronic kidney disease with heart failure and with stage 5 chronic kidney disease, or end stage renal disease; E11.22 Type 2 diabetes mellitus with diabetic chronic kidney disease; N18.6 End stage renal disease; I50.32 Chronic diastolic (congestive) heart failure; Z99.2 Dependence on renal dialysis; D63.1 Anemia in chronic kidney disease; N25.81 Secondary hyperparathyroidism of renal origin; I73.9 Peripheral vascular disease, unspecified; E78.5 Hyperlipidemia, unspecified; I25.10 Atherosclerotic heart disease of native coronary artery without angina pectoris; Z88.2 Allergy status to sulfonamides
CPT/HCPCS: 36415; 74181; 80048; 80076; 81003; 81015; 82962; 83690; 83735; 84100; 85025; 88304; 90935; 96374; 96375; 99285; G0378; J0360; J1170; J2175; J2250; J2405; J2550; J2597

== ENCOUNTER 2018-04-28 03:30 | Inpatient (IN) | payer BC, OTHER ==
--- OUTSIDE RECORDS SUMMARY | 2018-04-28 03:33 | XMS REPORT | Clinical Summary ---
:1965 Author Organization [facility] Address [address] [place] [address] Care Team Providers Name Role Phone Garo Chavarria MD Primary Care Provider Allergies Active Allergy Reactions Severity Noted Date Comments Sulfa (Sulfonamide Antibiotics) Rash Low 07/17/2017 Medications Medication Sig Dispensed Refills Start Date End Date Status amLODIPine Take 10 mg by 0 Active (NORVASC) 10 mg mouth daily. tablet furosemide (LASIX) Take 40 mg by 0 Active 40 mg tablet mouth 2 (two) times a day. sertraline (ZOLOFT) Take 50 mg by 0 Active 50 MG tablet mouth daily. atorvastatin Take 80 mg by 0 Active (LIPITOR) 80 MG mouth daily. tablet clopidogrel Take 75 mg by 0 Active (PLAVIX) 75 mg mouth daily. tablet docusate sodium Take 100 mg by 0 Active (COLACE) 100 MG mouth 2 (two) capsule times a day. ranolazine (RANEXA) Take 1,000 mg 0 Active 1,000 mg 12 hr by mouth daily. tablet metoprolol tartrate Take 100 mg by 0 Active (LOPRESSOR) 100 mg mouth 2 (two) tablet times a day. hydrALAZINE Take 50 mg by 0 Active (APRESOLINE) 25 MG mouth 2 (two) tablet times a day. metoclopramide Take 5 mg by 0 Active (REGLAN) 5 MG mouth 3 (three) tablet times a day. aspirin 325 MG Take 325 mg by 0 Active tablet mouth daily. INSULIN Inject under 0 Active SUBCUTANEOUS PUMP, the skin HUMALOG, 100 continuously. UNITS/ML INSULIN Insulin Pump - PUMP INFUSION V-GO 40 units (HumaLOG) thru out the day. travoprost Administer 1 0 Active (TRAVATAN-Z) 0.004 drop to both % eyes nightly. nitroglycerin Place 0.4 mg 0 Active (NITROSTAT) 0.4 MG under the SL tablet tongue every 5 (five) minutes as needed for chest pain. nitroglycerin Place 1 patch 0 Active (NITRODUR) 0.2 on the skin mg/hr daily as needed (Chest Pain). zolpidem (AMBIEN) 5 Take 5 mg by 0 Active MG tablet mouth nightly. ondansetron Take 4 mg by 0 Active (ZOFRAN) 4 MG mouth every 6 tablet (six) hours as needed for nausea or vomiting. promethazine Take 25 mg by 0 Active (PHENERGAN) 25 MG mouth every 8 tablet (eight) hours as needed for nausea or vomiting. lactulose 10 Take 20 g by 0 Active gram/15 mL (15 mL) mouth daily as solution needed (Constipation). famotidine (PEPCID) Take 40 mg by 0 Active 40 MG tablet mouth nightly. ergocalciferol Take 50,000 0 Active (VITAMIN D2) 50,000 Units by mouth unit capsule every 30 (thirty) days. ciprofloxacin Take 500 mg by 0 Discontinued (CIPRO) 500 MG mouth 2 (two) 8 tablet times a day. cholecalciferol, Take 50,000 0 Discontinued vitamin D3, Units by mouth 8 [...] Team Description 09/15/2017 Office Visit General Surgery Oppermann, Surgery follow-up Abdiel Davis MD (Primary Dx) 08/25/2017 Surgery General Surgery Oppermann, OPEN PERITONEAL Abdiel Davis MD DIALYSIS CATHETER REMOVAL 08/25/2017 Anesthesia Event General Surgery Jason Eugene, KRISTIAN 08/25/2017 Hospital Encounter General Surgery Abdiel Ivory MD 08/23/2017 Pre-Admit Testing Pre-Admission Dianelys, Preop testing Appointment Testing Abdiel Davis MD (Primary Dx) 07/17/2017 - Emergency General Internal Kevin Chavez Abdominal pain, unspecified abdominal location (Primary Dx); 07/19/2017 Robert Ortiz MD End stage renal disease; Aroldo, Lailaangelina Peritoneal dialysis catheter in place MD Frank after 04/27/2017 Immunizations Name Dates Previously Given Next Due [...] Assigned at Date Recorded Not on file Job Start Date Occupation Industry Not on file Not on file Not on file Travel History Travel Start Travel End No recent travel history available. Last Filed Vital Signs Vital Sign Reading [...] Health Maintenance Due Date Last Done Comments MMR VACCINES (1 of 1 - Standard 1965 series) VARICELLA VACCINES (1 of 2 - 1977 2-dose adolescent series) COLON CANCER SCREENING 2014 SHINGRIX VACCINE (1 of 2) 2014 INFLUENZA VACCINE 01/11/2018 02/11/2017 HEPATITIS B VACCINES Aged Out No longer eligible based on patient's age to complete this topic IPV VACCINES Aged Out No longer eligible based on patient's age to complete this topic MENINGOCOCCAL VACCINE Aged Out No longer eligible based on patient's age to complete this topic Procedures Procedure Name Priority Date/Time Associated Comments Diagnosis POC GLUCOSE Routine 08/25/2017 8:40 Results for this AM CDT procedure are in the results section. [place] AN ELECTIVE Routine 08/25/2017 8:09 ENDOTRACHEAL AIRWAY AM CDT Procedure Note - Federico Young V. BREAD JOCKEY - 08/25/2017 8:09 AM CDT Airway Date/Time: [...] Routine 07/19/2017 7:48 AM Results for this [facility] procedure are in the results section. POC GLUCOSE Routine 07/18/2017 8:52 PM Results for this [facility] procedure are in the results section. NM GASTRIC EMPTYING Routine 07/18/2017 5:06 PM Results for this [facility]ER procedure are in the results section. POC GLUCOSE Routine 07/18/2017 4:15 PM Results for this [facility]ER procedure are in the results section. CELL COUNT AND Routine 07/18/2017 10:00 AM Results for this DIFFERENTIAL, BODY FLUID [facility] procedure are in the results section. FUNGUS SMEAR Routine 07/18/2017 10:00 AM Results for this [facility] procedure are in the results section. GRAM STAIN Routine 07/18/2017 10:00 AM Results for this [facility] procedure are in the results section. FUNGUS CULTURE Routine 07/18/2017 10:00 AM Results for this [facility] procedure are in the results section. ANAEROBIC CULTURE Routine 07/18/2017 10:00 AM Results for this [facility] procedure are in the results section. AEROBIC CULTURE Routine 07/18/2017 10:00 AM Results for this [facility] procedure are in the results section. CT ABDOMEN PELVIS WO Routine 07/18/2017 9:02 AM Results for this CONTRAST [facility] procedure are in the results section. LACTIC ACID LEVEL, Timed 07/18/2017 4:11 AM Results for this SEPSIS - NOW AND REPEAT [facility]ER procedure are in 2X EVERY 3 HOURS the results section. LACTIC ACID LEVEL, Timed 07/17/2017 8:30 PM Results for this SEPSIS - NOW AND REPEAT [facility]ER procedure are in 2X EVERY 3 HOURS the results section. ZZESTIMATED GFR STAT 07/17/2017 4:55 PM Results for this [facility] procedure are in the results section. LIPASE LEVEL STAT 07/17/2017 4:55 PM Results for this [facility]ER procedure are in the results section. COMPREHENSIVE METABOLIC STAT 07/17/2017 4:55 PM Results for this PANEL [facility] procedure are in the results section. LACTIC ACID LEVEL, STAT 07/17/2017 4:55 PM Results for this SEPSIS - NOW AND REPEAT [facility] procedure are in 2X EVERY 3 HOURS the results section. HC COMPLETE BLD COUNT STAT 07/17/2017 4:55 PM Results for this W/AUTO DIFF [facility] procedure are in the results section. BLOOD CULTURE, AEROBIC & Routine 07/17/2017 4:55 PM Results for this ANAEROBIC [facility] procedure are in the results section. BLOOD CULTURE, AEROBIC & Routine 07/17/2017 4:50 PM Results for this ANAEROBIC [facility] procedure are in the results section. after 04/27/2017 Results POC glucose (08/25/2017 8:40 AM CDT)Only the most recent of4 resultswithin the time period is included. POC glucose 152 (H) 65 - 99 mg/dL [facility] DEPARTMENT OF PATHOLOGY AND Comment: GENOMIC MEDICINE RN Notified Meter ID: [id number] Ocular Care Aide: Boogie Blackburn Performing Organization Address City/State/Zipcode Phone Number [facility] DEPARTMENT OF PATHOLOGY [address] [place] [address]. [place] [address] AND [employer] POC panel 4 (08/25/2017 6:59 AM CDT) POC sodium 138 135 - 148 meq/L [facility] DEPARTMENT OF PATHOLOGY AND GENOMIC MEDICINE POC potassium 3.7 3.5 - 5.0 meq/L [facility] DEPARTMENT OF PATHOLOGY AND GENOMIC MEDICINE POC hematocrit 36 (L) 41 - 51 % [facility] DEPARTMENT OF PATHOLOGY AND GENOMIC MEDICINE POC glucose 155 (H) 65 - 99 mg/dL [facility] DEPARTMENT OF PATHOLOGY AND GENOMIC MEDICINE POC hemoglobin 12.2 (L) 14.0 - 18.0 g/dL [facility] DEPARTMENT OF PATHOLOGY AND GENOMIC MEDICINE Specimen Blood Performing Organization Address [facility] Phone Number [facility] DEPARTMENT OF PATHOLOGY [address] [place] [address]. [place] [address] AND [employer] Estimated GFR (08/25/2017 6:47 AM CDT)Only the most recent of2 resultswithin the time period is included. GFR Non Af Amer 18 (A) mL/min/1.73 m2 [facility] DEPARTMENT OF PATHOLOGY AND GENOMIC MEDICINE GFR Af Amer 22 (A) mL/min/1.73 m2 [facility] DEPARTMENT OF Comment: PATHOLOGY AND GENOMIC Chronic kidney disease: <60 mL/min/1.73m2 MEDICINE Kidney [...] Americans. Specimen Plasma specimen Performing Organization Address City/[facility]/Zipcode Phone Number [facility] DEPARTMENT OF PATHOLOGY [address] [place] [address]. [place] [address] AND [employer] Basic metabolic panel (08/25/2017 6:47 AM CDT) Sodium 138 135 - 148 mEq/L [facility] DEPARTMENT OF PATHOLOGY AND GENOMIC MEDICINE Potassium 3.9 3.5 - 5.0 mEq/L [facility] DEPARTMENT OF PATHOLOGY AND GENOMIC MEDICINE Chloride 100 98 - 112 mEq/L [facility] DEPARTMENT OF PATHOLOGY AND GENOMIC MEDICINE CO2 26 24 - 31 mEq/L [facility] DEPARTMENT OF PATHOLOGY AND GENOMIC MEDICINE Anion gap 12 7 - 15 mEq/L [facility] DEPARTMENT OF Comment: PATHOLOGY AND GENOMIC Starting from September , anion gap calculation MEDICINE no longer incorporates potassium. Please note the change. BUN 29 (H) 6 - 20 mg/dL [facility] DEPARTMENT OF PATHOLOGY AND GENOMIC MEDICINE Creatinine 3.6 (H) 0.7 - 1.2 mg/dL [facility] DEPARTMENT OF PATHOLOGY AND GENOMIC MEDICINE Glucose 159 (H) 65 - 99 mg/dL [facility] DEPARTMENT OF PATHOLOGY AND GENOMIC MEDICINE Calcium 9.2 8.3 - 10.2 mg/dL [facility] DEPARTMENT OF PATHOLOGY AND GENOMIC MEDICINE Specimen Plasma specimen Performing Organization Address City/State/Zipcode Phone Number [facility] DEPARTMENT OF PATHOLOGY [address] [place] [address] AND GENOMIC MEDICINE CBC with platelet and differential (08/23/2017 12:26 PM CDT)Only the most recent of2 resultswithin the time period is included. WBC 6.9 4.5 - 11.0 k/uL [facility] DEPARTMENT OF PATHOLOGY AND GENOMIC MEDICINE RBC 3.16 (L) 4.40 - 6.00 m/uL [facility] DEPARTMENT OF PATHOLOGY AND GENOMIC MEDICINE HGB 8.6 (L) 14.0 - 18.0 g/dL [facility] DEPARTMENT OF PATHOLOGY AND GENOMIC MEDICINE HCT 27.4 (L) 41.0 - 51.0 % [facility] DEPARTMENT OF PATHOLOGY AND GENOMIC MEDICINE MCV 86.7 82.0 - 100.0 fL [facility] DEPARTMENT OF PATHOLOGY AND GENOMIC MEDICINE MCH 27.2 27.0 - 34.0 pg [facility] DEPARTMENT OF PATHOLOGY AND GENOMIC MEDICINE MCHC 31.4 31.0 - 37.0 g/dL [facility] DEPARTMENT OF PATHOLOGY AND GENOMIC MEDICINE RDW - SD 52.3 37.0 - 55.0 fL [facility] DEPARTMENT OF PATHOLOGY AND GENOMIC MEDICINE MPV 9.1 6.9 - 11.0 fL [facility] DEPARTMENT OF PATHOLOGY AND GENOMIC MEDICINE Platelet count 273 150 - 400 K/uL [facility] DEPARTMENT OF PATHOLOGY AND GENOMIC MEDICINE Nucleated RBC 0.00 /100 WBC [facility] DEPARTMENT OF PATHOLOGY AND GENOMIC MEDICINE Neutrophils 63.7 39.0 - 69.0 % [facility] DEPARTMENT OF PATHOLOGY AND GENOMIC MEDICINE Lymphocytes 18.6 (L) 25.0 - 45.0 % [facility] DEPARTMENT OF PATHOLOGY AND GENOMIC MEDICINE Monocytes 12.3 (H) 0.0 - 10.0 % [facility] DEPARTMENT OF PATHOLOGY AND GENOMIC MEDICINE Eosinophils 4.0 0.0 - 5.0 % [facility] DEPARTMENT OF PATHOLOGY AND GENOMIC MEDICINE Basophils 0.7 0.0 - 1.0 % [facility] DEPARTMENT OF PATHOLOGY AND GENOMIC MEDICINE Immature granulocytes 0.7 0.0 - 1.0 % [facility] DEPARTMENT OF PATHOLOGY AND GENOMIC MEDICINE Specimen Blood Performing Organization Address [facility] Phone Number [facility] DEPARTMENT OF PATHOLOGY [address] [place] [address] AND [place] MEDICINE ECG Pre/Post Op (08/23/2017 11:23 AM CDT) Ventricular rate 54 [facility] Atrial rate 54 [facility] [place] interval 176 [facility] QRSD interval 88 [facility] QT interval 492 [facility] QTC interval 466 [facility] P axis 1 5 [facility] QRS axis 1 10 [facility] T wave axis 140 [facility] EKG impression Sinus bradycardia-T wave abnormality, [facility] consider lateral ischemia-Prolonged QT-Abnormal ECG-No previous ECGs available- Performing Organization Address [facility] Phone Number [facility] [address] [place] [address] NM Gastric Emptying (07/18/2017 5:06 PM BAG HANGER) Narrative Performed At Procedure:NM GASTRIC EMPTYING RADIANT Clinical History:ABDOMINAL PAIN Technique 0.8 millicuries of [id number] colloid were mixed with an egg and cooked. The egg was fed to the patient and dynamic imaging of the abdomen in the anterior and posterior projections was performed for 90 minutes. Quantification of gastric emptying was performed using the geometric mean of the anterior and posterior projections. FINDINGS: Gastric emptying half time=53 minutes (normal is <100 minutes). IMPRESSION: Normal gastric emptying. [facility]-[id number] Procedure Note Interface, Radiology Results Incoming - 07/18/2017 5:20 PM [facility]ER Procedure: NM GASTRIC EMPTYING Clinical History: ABDOMINAL PAIN Technique 0.8 millicuries of [id number] colloid were mixed with an egg and cooked. The egg was fed to the patient and dynamic imaging of the abdomen in the anterior and posterior projections was performed for 90 minutes. Quantification of gastric emptying was performed using the geometric mean of the anterior and posterior projections. FINDINGS: Gastric emptying half time=53 minutes (normal is <100 minutes). IMPRESSION: Normal gastric emptying. [facility]-[id number] Performing Organization Address [facility] [place] [address] Fungus smear (07/18/2017 10:00 AM BAG HANGER) Fungus smear [facility] DEPARTMENT OF PATHOLOGY Comment: AND GENOMIC [facility] Specimen Information Specimen Source: Peritoneal fluid Specimen Site: Peritoneal Specimen Peritoneal fluid - Peritoneal Performing Organization Address [facility] Phone Number [facility] DEPARTMENT OF PATHOLOGY AND [address] [place] [address] Aerobic culture (07/18/2017 10:00 AM BAG HANGER) Aerobic culture isolate [facility] DEPARTMENT OF Comment: PATHOLOGY AND GENOMIC Specimen Information MEDICINE Specimen Source: Peritoneal fluid Specimen Site: Peritoneal Specimen Peritoneal fluid - Peritoneal Performing Organization Address [facility] Phone Number [facility] DEPARTMENT OF PATHOLOGY AND [address] [place] [address] Gram stain (07/18/2017 10:00 AM BAG HANGER) Gram stain isolate [facility] DEPARTMENT OF PATHOLOGY Comment: AND [place] MEDICINE Specimen Information Specimen Source: Peritoneal fluid Specimen Site: Peritoneal Specimen Peritoneal fluid - Peritoneal Performing Organization Address [facility] Phone Number [facility] DEPARTMENT OF PATHOLOGY AND [address] [place] [address] Fungus culture (07/18/2017 10:00 AM BAG HANGER) Fungus culture isolate No growth after 4 weeks of incubation. [facility] DEPARTMENT OF Comment: PATHOLOGY AND GENOMIC Specimen Information MEDICINE Specimen Source: Peritoneal fluid Specimen Site: Peritoneal Specimen Peritoneal fluid - Peritoneal Performing Organization Address [facility] Phone Number [facility] DEPARTMENT OF PATHOLOGY AND [address] [place] [address] Anaerobic culture (07/18/2017 10:00 AM BAG HANGER) Anaerobic culture [facility] DEPARTMENT OF isolate Comment: PATHOLOGY AND GENOMIC Specimen Information MEDICINE Specimen Source: Peritoneal fluid Specimen Site: Peritoneal Specimen Peritoneal fluid - Peritoneal Performing Organization Address City/State/Zipcode Phone Number [facility] DEPARTMENT OF PATHOLOGY AND [address] [place] [address] [facility] [address] MEDICINE Cell count and differential, body fluid (07/18/2017 10:00 AM BAG HANGER) [facility] fluid type [facility] DEPARTMENT OF PATHOLOGY AND GENOMIC MEDICINE Color, fluid [facility] DEPARTMENT OF PATHOLOGY AND GENOMIC MEDICINE Appearance, fluid [facility] DEPARTMENT OF PATHOLOGY AND GENOMIC MEDICINE RBC, fluid Comment: 1+ (0 - 500 /CMM [facility] DEPARTMENT OF RBC/CMM) PATHOLOGY AND GENOMIC MEDICINE Nucleated cells, fluid /CMM [facility] DEPARTMENT OF PATHOLOGY AND GENOMIC MEDICINE Fluid mononuclear cell [facility] DEPARTMENT OF Comment: PATHOLOGY AND GENOMIC Footnote--------- MEDICINE Unable to perform differential due to very low count. Specimen Fluid Performing Organization Address City/State/Zipcode Phone Number [facility] DEPARTMENT OF PATHOLOGY [address] [place] [address] Abdomen Pelvis Wo Contrast (07/18/2017 9:02 AM BAG HANGER) Narrative Performed At EXAMINATION:CT ABDOMEN PELVIS WO [...] renal calyceal stones are present without hydronephrosis. [id number] Procedure Note Hm Interface, Radiology Results Incoming - 07/18/2017 9:14 AM BAG HANGER EXAMINATION: CT ABDOMEN PELVIS WO CONTRAST CLINICAL [...] renal calyceal stones are present without hydronephrosis. [id number] Performing Organization Address City/State/Zipcode Phone Number [facility] [address] [place] [address] Lactic acid level, SEPSIS - Now and repeat 2x every 3 hours (07/18/2017 4:11 AM BAG HANGER)Only the most recent of3 resultswithin the time period is included. Lactic acid 0.5 - 2.2 mmol/L [facility] DEPARTMENT OF PATHOLOGY AND GENOMIC MEDICINE Specimen Plasma specimen Performing Organization Address City/State/Zipcode Phone Number [facility] DEPARTMENT OF PATHOLOGY [address] [place] [address] AND [place] MEDICINE Blood culture, aerobic & anaerobic (07/17/2017 4:55 PM BAG HANGER)Only the most recent of2 resultswithin the time period is included. Blood culture isolate [facility] DEPARTMENT OF Comment: PATHOLOGY AND GENOMIC Specimen Information MEDICINE Specimen Source: Blood Specimen Site: Hand, right Specimen Blood - Hand, right Performing Organization Address City/[facility]/Zipcode Phone Number [facility] DEPARTMENT OF PATHOLOGY AND [address] [place] [id number] [place] [address] MEDICINE Lipase level (07/17/2017 4:55 PM BAG HANGER) Lipase 13 - 60 U/L [facility] DEPARTMENT OF PATHOLOGY AND GENOMIC MEDICINE Specimen Plasma specimen Performing Organization Address [facility] Phone Number [facility] DEPARTMENT OF PATHOLOGY [address] [place] [address] AND [place] [facility] Comprehensive metabolic panel (07/17/2017 4:55 PM BAG HANGER) Sodium (L) 135 - 148 mEq/L [facility] DEPARTMENT OF PATHOLOGY AND GENOMIC MEDICINE Potassium 3.5 - 5.0 mEq/L [facility] DEPARTMENT OF PATHOLOGY AND GENOMIC MEDICINE Chloride (L) 98 - 112 mEq/L [facility] DEPARTMENT OF PATHOLOGY AND GENOMIC MEDICINE CO2 24 - 31 mEq/L [facility] DEPARTMENT OF PATHOLOGY AND GENOMIC MEDICINE Anion gap 7 - 15 mEq/L [facility] DEPARTMENT OF Comment: PATHOLOGY AND GENOMIC Starting from September , anion gap calculation MEDICINE no longer incorporates potassium. Please note the change. BUN (H) 6 - 20 mg/dL [facility] DEPARTMENT OF PATHOLOGY AND GENOMIC MEDICINE Creatinine (H) 0.7 - 1.2 mg/dL [facility] DEPARTMENT OF PATHOLOGY AND GENOMIC MEDICINE Glucose (H) 65 - 99 mg/dL [facility] DEPARTMENT OF PATHOLOGY AND GENOMIC MEDICINE Calcium 8.3 - 10.2 mg/dL [facility] DEPARTMENT OF PATHOLOGY AND GENOMIC MEDICINE Protein 6.3 - 8.3 g/dL [facility] DEPARTMENT OF PATHOLOGY AND GENOMIC MEDICINE Albumin (L) 3.5 - 5.0 g/dL [facility] DEPARTMENT OF PATHOLOGY AND GENOMIC MEDICINE A/G ratio 0.7 - 3.8 [facility] DEPARTMENT OF PATHOLOGY AND GENOMIC MEDICINE Alkaline phosphatase 40 - 129 U/L [facility] DEPARTMENT OF PATHOLOGY AND GENOMIC MEDICINE AST 10 - 50 U/L [facility] DEPARTMENT OF PATHOLOGY AND GENOMIC MEDICINE ALT 5 - 50 U/L [facility] DEPARTMENT OF PATHOLOGY AND GENOMIC MEDICINE Total bilirubin 0.2 - 1.2 mg/dL [facility] DEPARTMENT OF PATHOLOGY AND GENOMIC MEDICINE Specimen Plasma specimen Performing Organization Address City/[facility] Phone Number [facility] DEPARTMENT OF PATHOLOGY [address] [place] [address] AND [place] MEDICINE after 04/27/2017 Insurance Payer Benefit Plan / Group Subscriber ID Type Phone Address BS AVNI CARCAMO xxxxxxxxxxxx PPO MEDICARE MEDICARE PART A AND B xxxxxxxxxx Medicare [place], [place] Advance Directives Patient has advance care planning documents on file. For more information, please contact:Naren Castro[address] [place] [address]
--- OUTSIDE RECORDS SUMMARY | 2018-04-28 03:33 | XMS REPORT | Clinical Summary ---
:1965 Author Organization [facility] Address [address] [place] [address] Care Team Providers Name Role Phone Bala Traore MD Primary Care Provider Allergies Active Allergy Reactions Severity Noted Date Comments Sulfa (Sulfonamide Antibiotics) 06/08/2017 Medications Medication Sig Dispensed Refills Start Date End Date Status amLODIPine (NORVASC) Take 10 mg by 0 Active 10 MG tablet mouth daily. atorvastatin Take 80 mg by 0 Active (LIPITOR) 80 MG mouth daily. tablet clopidogrel (PLAVIX) Take 75 mg by 0 Active 75 mg tablet mouth daily. metoprolol Take 100 mg by 0 Active (LOPRESSOR) 100 MG mouth 2 (two) tablet times daily. nitroglycerin Place 1 patch 0 Active (NITRODUR) 0.2 mg/hr onto the skin patch daily as needed. aspirin 81 MG EC Take 81 mg by 0 Active tablet mouth daily. nitroglycerin Place 0.4 mg 0 Active (NITROSTAT) 0.4 MG under the SL tablet tongue daily as needed for Chest pain Put 1 pill under tongue every 5min as needed for chest pain.No more than 3 doses in 15min.Call 911 if pain is unrelieved 5min after 1st dose . pantoprazole Take 40 mg by 0 Active (PROTONIX) 40 MG mouth daily. tablet promethazine Take 25 mg by 0 Active (PHENERGAN) 25 MG mouth every 6 tablet (six) hours as needed for Nausea. ranolazine (RANEXA) Take 1,000 mg 0 Active 500 MG 12 hr tablet by mouth 2 (two) times daily. furosemide (LASIX) Take 80 mg by 0 Active 80 MG tablet mouth 2 (two) times daily. metoclopramide Take 5 mg by 0 Active (REGLAN) 5 MG tablet mouth 3 (three) times daily. ondansetron (ZOFRAN) Take 4 mg by 0 Active 4 MG tablet mouth every 6 (six) hours as needed for Nausea. zolpidem (AMBIEN) 5 Take 5 mg by 0 Active MG tablet mouth every night as needed for Insomnia. hydrALAZINE Take 25 mg by 0 Discontinued (APRESOLINE) 25 MG mouth 2 (two) 8 tablet times daily. lisinopril Take 1 tablet 30 tablet 0 06/16/2017 (PRINIVIL,ZESTRIL) (20 mg total) 8 20 MG tablet by mouth daily for 30 days. Active Problems Problem Noted Date Renal failure 06/08/2017 Encounters Date Type Specialty Care Team Description 07/15/2017 Telephone Transplant Rosanne Staton 07/14/2017 Telephone Transplant Merlin Harley, Follow-up LUIZ 07/14/2017 Abstract Transplant Silvio Gerardoshakila 06/14/2017 Surgery Oppermann, LAPAROSCOPY,INSERT Abdiel Griffin, PERITONEAL CATHETER 06/14/2017 Anesthesia Event Osman Hall MD 06/14/2017 Orders Only General Internal Medicine 06/08/2017 - Hospital Encounter General Internal Bala Traore 06/15/2017 Medicine MD Nabila after 04/27/2017 Social History Tobacco Use Types Packs/Day Years Used Date Never Smoker Smokeless Tobacco: Never Used Sex Assigned at Date Recorded Not on file Job Start Date Occupation Industry Not on file Not on file Not on file Travel History Travel Start Travel End No recent travel history available. Last Filed Vital Signs Vital Sign Reading Time Taken Blood Pressure 124/61 06/15/2017 4:00 PM [employer] Pulse 66 06/15/2017 4:00 PM [employer] Temperature 36.3 C (97.3 F) 06/15/2017 4:00 PM [employer] Respiratory Rate 18 06/15/2017 4:00 PM [employer] Oxygen Saturation 96% 06/15/2017 4:00 PM [employer] Inhaled Oxygen Concentration 28% 06/15/2017 1:52 AM [employer] Weight 97 kg (213 lb 12.8 oz) 06/08/2017 10:42 PM [employer] Height 190.5 cm (6' 3") 06/08/2017 10:42 PM [employer] Body Mass Index 26.72 06/08/2017 10:42 PM [employer] Plan of Treatment Not on file Implants Implanted Type Area Mounter Device Shelf Model / Identifier Expiration Serial / Lot Date Cath Peritoneal Dyls 57cm 2cuf [id number] - Sn/A Catheter N/A: COVIDIEN: SHAZIA 02/17/2021 [id number] / Implanted: Qty: 1 on 06/14/2017 by Abdiel Ivory MD Dialysis Abdomen L N/A / Custodial [id number] Procedures Procedure Name Priority Date/Time Associated Comments Diagnosis RHYTHM STRIP - SCAN 07/04/2017 3:42 PM [employer] CARDIAC CATH REPORT - 07/04/2017 11:13 SCAN AM [employer] RHYTHM STRIP - SCAN 06/16/2017 10:51 AM [employer]ER REPORT OF PROCEDURE - 06/16/2017 10:50 ENDOSCOPY SCAN AM [employer] CARDIAC CATH REPORT - 06/16/2017 10:50 SCAN AM [employer] POCT-GLUCOSE METER Routine 06/15/2017 5:28 Results for this PM [employer] procedure are in the results section. CBC W/PLT COUNT & AUTO Routine 06/15/2017 12:59 Results for this DIFFERENTIAL PM [employer] procedure are in the results section. CBC W/PLT COUNT & AUTO Routine 06/15/2017 12:59 Results for this DIFFERENTIAL PM [employer] procedure are in the results section. BASIC METABOLIC PANEL Routine 06/15/2017 12:59 Results for this (7) PM [employer] procedure are in the results section. MAGNESIUM Routine 06/15/2017 12:59 Results for this PM [employer] procedure are in the results section. POCT-GLUCOSE METER Routine 06/15/2017 11:26 Results for this AM [employer] procedure are in the results section. POCT-GLUCOSE METER Routine 06/15/2017 5:54 Results for this AM [employer] procedure are in the results section. POCT-GLUCOSE METER Routine 06/14/2017 8:51 Results for this PM [employer] procedure are in the results section. POCT-GLUCOSE METER Routine 06/14/2017 3:56 Results for this PM [employer] procedure are in the results section. POCT-GLUCOSE METER Routine 06/14/2017 12:47 Results for this PM [employer] procedure are in the results section. LAPAROSCOPY,INSERT 06/14/2017 11:00 Renal Failure PERITONEAL CATHETER AM [employer] POCT-TCO2 Routine 06/14/2017 10:22 Results for this AM [employer] procedure are in the results section. POCT-HEMOGLOBIN Routine 06/14/2017 10:22 Results for this AM [employer] procedure are in the results section. POCT-HEMATOCRIT Routine 06/14/2017 10:22 Results for this AM [employer] procedure are in the results section. POCT-GLUCOSE Routine 06/14/2017 10:22 Results for this AM [employer] procedure are in the results section. POCT-CHLORIDE Routine 06/14/2017 10:22 Results for this AM [employer] procedure are in the results section. POCT-BUN Routine 06/14/2017 10:22 Results for this AM [employer] procedure are in the results section. POCT-POTASSIUM Routine 06/14/2017 10:22 Results for this AM [employer] procedure are in the results section. POCT-SODIUM Routine 06/14/2017 10:22 Results for this AM [employer] procedure are in the results section. POCT-CREATININE Routine 06/14/2017 10:22 Results for this AM [employer] procedure are in the results section. POCT-GLUCOSE METER Routine 06/14/2017 5:44 Results for this AM [employer] procedure are in the results section. POCT-GLUCOSE METER Routine 06/13/2017 9:05 Results for this PM [employer] procedure are in the results section. TRANSFUSION SERVICE 06/13/2017 5:30 REPORT - SCAN PM [employer]ER ECHOCARDIOGRAM REPORT - 06/13/2017 2:20 SCAN PM [employer]ER POCT-GLUCOSE METER Routine 06/13/2017 12:56 Results for this PM [employer] procedure are in the results section. 2D ECHO W/ DOPPLER STAT 06/13/2017 7:42 Results for this (CW/PW/COLOR) AM [employer] procedure are in the results section. POCT-GLUCOSE METER Routine 06/13/2017 5:23 Results for this AM [employer] procedure are in the results section. POCT-GLUCOSE METER Routine 06/12/2017 9:57 Results for this PM [employer] procedure are in the results section. POCT-GLUCOSE METER Routine 06/12/2017 4:31 Results for this PM [employer] procedure are in the results section. CBC W/PLT COUNT & AUTO Routine 06/12/2017 3:29 Results for this DIFFERENTIAL PM [employer] procedure are in the results section. TYPE AND SCREEN Routine 06/12/2017 3:29 Results for this PM [employer] procedure are in the results section. PROTHROMBIN TIME/INR Routine 06/12/2017 3:29 Results for this PM [employer] procedure are in the results section. TSH Routine 06/12/2017 3:29 Results for this PM [employer] procedure are in the results section. COMPREHENSIVE METABOLIC Routine 06/12/2017 3:29 Results for this PANEL PM [employer] procedure are in the results section. CBC W/PLT COUNT & AUTO Routine 06/12/2017 3:29 Results for this DIFFERENTIAL PM [employer] procedure are in the results section. POCT-GLUCOSE METER Routine 06/12/2017 11:52 Results for this AM [employer] procedure are in the results section. POCT-GLUCOSE METER Routine 06/12/2017 5:58 Results for this AM [employer] procedure are in the results section. POCT-GLUCOSE METER Routine 06/11/2017 9:13 Results for this PM [employer] procedure are in the results section. POCT-GLUCOSE METER Routine 06/11/2017 4:16 Results for this PM [employer] procedure are in the results section. POCT-GLUCOSE METER Routine 06/11/2017 12:15 Results for this PM [employer] procedure are in the results section. POCT-GLUCOSE METER Routine 06/11/2017 6:06 Results for this AM [employer] procedure are in the results section. POCT-GLUCOSE METER Routine 06/10/2017 9:38 Results for this PM [employer] procedure are in the results section. POCT-GLUCOSE METER Routine 06/10/2017 4:52 Results for this PM [employer] procedure are in the results section. POCT-GLUCOSE METER Routine 06/10/2017 12:16 Results for this PM [employer] procedure are in the results section. XR CHEST 1 VIEW Routine 06/10/2017 8:17 Results for this PORTABLE/BEDSIDE AM [employer] procedure are in the results section. HEPATITIS B CORE Routine 06/10/2017 8:13 Results for this ANTIBODY, TOTAL AM [employer] procedure are in the results section. POCT-GLUCOSE METER Routine 06/10/2017 6:50 Results for this AM [employer] procedure are in the results section. POCT-GLUCOSE METER Routine 06/09/2017 8:51 Results for this PM [employer] procedure are in the results section. HEPATITIS B SURFACE Routine 06/09/2017 7:06 Results for this ANTIBODY PM [employer] procedure are in the results section. HEPATITIS B SURFACE Routine 06/09/2017 7:06 Results for this ANTIGEN PM [employer] procedure are in the results section. POCT-GLUCOSE METER Routine 06/09/2017 4:31 Results for this PM [employer] procedure are in the results section. POCT-GLUCOSE METER Routine 06/09/2017 12:45 Results for this PM [employer] procedure are in the results section. IR TUNNELED DIALYSIS Routine 06/09/2017 11:45 Results for this CATHETER AM [employer] procedure are in the results section. POCT-GLUCOSE METER Routine 06/09/2017 5:41 Results for this AM [employer] procedure are in the results section. CBC W/PLT COUNT & AUTO Routine 06/09/2017 5:15 Results for this DIFFERENTIAL AM [employer] procedure are in the results section. CBC W/PLT COUNT & AUTO Routine 06/09/2017 5:15 Results for this DIFFERENTIAL AM [employer] procedure are in the results section. HEPATIC FUNCTION PANEL Routine 06/09/2017 5:15 Results for this AM [employer] procedure are in the results section. PT/APTT Routine 06/09/2017 5:15 Results for this AM [employer] procedure are in the results section. PHOSPHORUS Routine 06/09/2017 5:15 Results for this AM [employer] procedure are in the results section. MAGNESIUM Routine 06/09/2017 5:15 Results for this AM [employer] procedure are in the results section. BASIC METABOLIC PANEL Routine 06/09/2017 5:15 Results for this (7) AM [employer] procedure are in the results section. POCT-GLUCOSE METER Routine 06/08/2017 11:12 Results for this PM [employer] procedure are in the results section. after 04/27/2017 Results RHYTHM STRIP - SCAN (07/04/2017 3:42 PM [employer]ER)Only the most recent of2 resultswithin the time period is included. Narrative Performed At CARDIAC CATH REPORT - SCAN (07/04/2017 11:13 AM [employer]ATIVE [employer] INSTALLER) Narrative Performed At EKG-SCANNED (06/16/2017 10:50 AM [employer]ATIVE [employer]ER INSTALLER) Narrative Performed At CARDIAC CATH REPORT - SCAN (06/16/2017 10:50 AM [employer]ATIVE [employer]ER INSTALLER) Narrative Performed At POC-Glucose meter (06/15/2017 5:28 PM [employer] IN[employer]ER)Only the most recent of27 resultswithin the time period is included. POC-Glucose Meter 243 (H)Comment: TESTED AT 70 - 110 mg/dL [facility] [address] [facility] [address] Specimen Blood Performing Organization Address City/State/Zipcode Phone Number [facility] [address] [place] [address] [phone] CENTER CBC with platelet count + automated diff (06/15/2017 12:59 PM [employer] INSTALLER)Only the most recent of3 resultswithin the time period is included. WBC 6.8 4.0 - 10.0 K/L [facility] RBC 2.92 (L) 4.20 - 5.80 M/L [facility] Hemoglobin 8.4 (L) 13.0 - 16.8 GM/DL [facility] Hematocrit 25.5 (L) 40.0 - 50.0 % [facility] MCV 87.4 82.0 - 98.0 fL [facility] MCH 28.7 27.0 - 33.0 pg [facility] MCHC 32.8 32.0 - 36.0 GM/DL [facility] RDW 14.7 (H) 10.3 - 14.2 % [facility] Platelets 299 150 - 430 K/CU MM [facility] MPV 6.9 6.5 - 10.5 fL [facility] nRBC 0 0 - 0 /100 WBC [facility] % Neutros 65 % [facility] % Lymphs 18 % [facility] % Monos 14 % [facility] % Eos 3 % [facility] % Baso 1 % [facility] # Neutros 4.40 1.80 - 8.00 K/L [facility] # Lymphs 1.20 (L) 1.48 - 4.50 K/L [facility] # Monos 1.00 0.00 - 1.30 K/L [facility] # Eos 0.20 0.00 - 0.50 K/L [facility] # Baso 0.00 0.00 - 0.20 K/L [facility] Specimen Blood Performing Organization Address City/State/Zipcode Phone Number [facility] [address], [place] [phone] Magnesium (06/15/2017 12:59 PM [employer]STALLER)Only the most recent of2 resultswithin the time period is included. Magnesium 1.9 1.5 - 3.0 mg/dL [facility] Specimen Blood Performing Organization Address City/State/Zipcode Phone Number [facility] [address] [place] [address] [phone] Basic Metabolic Panel (06/15/2017 12:59 PM [employer] INST[employer]ER)Only the most recent of2 resultswithin the time period is included. Sodium 139 135 - 148 meq/L [facility] Potassium 3.4 (L) 3.6 - 5.5 meq/L [facility] Chloride 101 98 - 106 meq/L [facility] CO2 29 20 - 29 meq/L [facility] BUN 11 10 - 26 mg/dL [facility] Creatinine 2.10 (H) 0.50 - 1.20 mg/dL [facility] Glucose 157 (H) 70 - 110 mg/dL [facility] Calcium 8.6 8.5 - 10.5 mg/dL [facility] EGFR 33Comment: ESTIMATED GFR IS NOT mL/min/1.73 sq m [facility] ACCURATE CREATININE CLEARANCE IN PREDICTING GLOMERULAR FILTRATION RATE. ESTIMATED GFR IS NOT APPLICABLE FOR DIALYSIS PATIENTS. Specimen Blood Performing Organization Address City/State/Zipcode Phone Number [facility] [address] [place] [address] [phone] POC-TCO2 (06/14/2017 10:22 AM EVAPORATIVE [employer]ER INSTALLER) POC-TCO2 30 (H)Comment: TESTED AT [facility] 22 - 29 meq/L [address] [address] Specimen Blood Performing Organization Address City/State/Zipcode Phone Number [address] [address] [phone] CENTER POC-Chloride (06/14/2017 10:22 AM [employer]ATIVE [employer]ER INSTALLER) POC-Chloride 97 (L)Comment: TESTED AT [facility] 98 - 107 meq/L [address] [address] Specimen Blood Performing Organization Address City/[facility]/Zipcode Phone Number [address] [address] CENTER POC-BUN (06/14/2017 10:22 AM [employer]ORATIVE [employer]ER INSTALLER) POC-BUN 20Comment: TESTED AT [facility] 131 7 - 21 mg/dL [facility] [address] Specimen Blood Performing Organization Address City/State/Zipcode Phone Number [address] [address] [place] POC-Creatinine (06/14/2017 10:22 AM EV[employer]ATIVE [employer]ER INSTALLER) POC-Creatinine 3.6 (H)Comment: TESTED AT 0.6 - 1.3 mg/dL [address] [address] POC-EGFR 18 mL/min/1.73M2 [facility] Specimen Blood Performing Organization Address City/[facility]/Zipcode Phone Number [address] [address] [phone] [place] POCT-HEMATOCRIT (06/14/2017 10:22 AM EV[employer]ORATIVE [employer]ER INSTALLER) POC-Hematocrit 24 (L)Comment: TESTED AT [facility] 40 - 50 % [address] [address] Specimen Blood Performing Organization Address City/[facility]/Zipcode Phone Number [address] [address] [phone] [place] POCT-HEMOGLOBIN (06/14/2017 10:22 AM [employer]ORATIVE [employer]ER INSTALLER) POC-Hemoglobin 8.2 (L)Comment: TESTED AT 13.0 - 16.8 g/dL [address] [address] Specimen Blood Performing Organization Address City/State/Zipcode Phone Number [address] [address] [place] POCT-GLUCOSE (06/14/2017 10:22 AM EV[employer]ATIVE [employer]ER INSTALLER) POC-Glucose 123 (H)Comment: TESTED AT 70 - 110 mg/dL [address] [address] Specimen Blood Performing Organization Address City/State/Zipcode Phone Number [address] [address] [place] POC-Sodium (06/14/2017 10:22 AM EV[employer]ORATIVE CO[employer]ER INSTALLER) POC-Sodium 138Comment: TESTED AT [facility] 135 - 148 meq/L [facility] [address] [facility] [address] Specimen Blood Performing Organization Address City/[facility]/Zipcode Phone Number [address] [address] [phone] [place] POC-Potassium (06/14/2017 10:22 AM EVAPORATIVE COOLER INSTALLER) POC-Potassium 3.6Comment: TESTED AT [facility] 3.6 - 5.5 meq/L [facility] [address] [place] [phone] Specimen Blood Performing Organization Address City/[facility]/Zipcode Phone Number [address] [address] [place] TRANSFUSION SERVICE REPORT - SCAN (06/13/2017 5:30 PM [employer]ATIVE [employer]ER INSTALLER) Narrative Performed At ECHOCARDIOGRAM REPORT - SCAN (06/13/2017 2:20 PM [employer]ATIVE [employer]ER INSTALLER) Narrative Performed At 2D Echo W/Doppler(CW/PW/Color) (06/13/2017 7:42 AM [employer]ORATIVE [employer]ER INSTALLER) Ejection Fraction [facility] Narrative Performed At Transthoracic Echocardiography Report (TTE) [facility] Demographics Patient Name YUSUF DARBY Date of Study 06/13/2017 [id number] GenderMale Visit Number [id number] Unknown Accession Number [id number] Room Number B432 Date of Birth1965Referring Physician Age52 year(s)Hand Washer Murphy Flores RDCS, MD Physician Procedure Type of Study TTE [...] m/sMV Peak A-Wave: 0.32 m/s P1/2t: 45.1 msecE/ A Ratio: 4.12 Peak Velocity: 1.34 m/s Peak Gradient: 7.01 mmHg Mean Velocity: 0.47 m/s Deceleration Time: 158.9 msec Mean Gradient: 1.56 mmHgArea (continuity): 3.74 cm^2 MV Area (PHT): 4.88 cm^2MR Velocity: 3.23 [...] External Ris In - 06/13/2017 1:51 PM [employer]ER INSTALLER Transthoracic Echocardiography Report (TTE) Demographics Patient Name YUSUF DARBY Date of Study 06/13/2017 Gender Male Visit Number [id number] Race Unknown Accession Number [id number] Room Number B432 Date of 1965 Referring Physician Age 52 year(s) Hand Washer Clementina Seymour [facility] Interpreting Murphy Hartley MD Physician Procedure [...] Gradient: 6.46 mmHg Estimated PASP: 30.62 mmHg Performing Organization Address City/State/Zipcode Phone Number [facility] Prothrombin time/INR (06/12/2017 3:29 PM [employer]ATIVE [employer]ER INSTALLER) Protime 10.3 9.3 - 12.0 seconds [facility] INR 1.0 <=5.9 [facility] Specimen Blood Narrative Performed At [facility] RECOMMENDED COUMADIN/WARFARIN INR THERAPY RANGES STANDARD DOSE: 2.0 - 3.0 Includes: PROPHYLAXIS for venous thrombosis, systemic embolization; TREATMENT for venous thrombosis and/or pulmonary embolus. HIGH RISK: Target INR is 2.5-3.5 for patients with mechanical heart valves. Performing Organization Address City/State/Zipcode Phone Number [facility] [address], [place] [phone] Type and screen ([facility]) (06/12/2017 3:29 PM EVAPORATIVE COOLER INSTALLER) Ab Scrn NEGATIVE [facility] ABO Grouping A [facility] Rh Factor POS [facility] Specimen Blood Performing Organization Address City/State/Zipcode Phone Number [facility] [address] [place], [place] [phone] [facility] TSH (06/12/2017 3:29 PM EVAPORATIVE COOLER INSTALLER) TSH 2.09 0.35 - 5.50 uIU/mL [facility] Specimen Blood Performing Organization Address City/State/Zipcode Phone Number [facility] [address], [place] [phone] Comprehensive metabolic panel (06/12/2017 3:29 PM EVAPORATIVE COOLER INSTALLER) Protein, Total 7.2 6.0 - 8.5 gm/dL [facility] Albumin 3.5 3.5 - 5.0 g/dL [facility] Alkaline Phosphatase 67 30 - 115 U/L [facility] Total Bilirubin 0.3 0.1 - 1.2 mg/dL [facility] Sodium 136 135 - 148 meq/L [facility] Potassium 4.1 3.6 - 5.5 meq/L [facility] Chloride 98 98 - 106 meq/L [facility] CO2 26 20 - 29 meq/L [facility] BUN 32 (H) 10 - 26 mg/dL [facility] Creatinine 4.40 (H) 0.50 - 1.20 mg/dL [facility] Glucose 212 (H) 70 - 110 mg/dL [facility] Calcium 9.0 8.5 - 10.5 mg/dL [facility] AST 14 5 - 40 U/L [facility] ALT 4 (L) 5 - 50 U/L [facility] EGFR 14Comment: ESTIMATED GFR mL/min/1.73 sq m [facility] IS NOT ACCURATE CREATININE CLEARANCE IN PREDICTING GLOMERULAR FILTRATION RATE. ESTIMATED GFR IS NOT APPLICABLE FOR DIALYSIS PATIENTS. Specimen Blood Performing Organization Address City/[facility]/Zipcode Phone Number [facility] [address] [place] [address] XR chest 1 view portable / bedside (06/10/2017 8:17 AM EVAPORATIVE COOLER INSTALLER) Narrative Performed At FINAL REPORT [employer] TECHNIQUE: Frontal chest radiograph dated 06/10/2017. CLINICAL HISTORY: Outpatient HD placement COMPARISON STUDY: None IMPRESSION: Right sided internal jugular venous catheter is seen with the tip. Increased interstitial lung markings are compatible with interstitial edema. No focal consolidation. No pleural effusion or pneumothorax. Cardiomediastinal silhouette is normal in size. No fracture. Signed: Louis Hammer MD Report Verified Date/Time:06/10/2017 08:49:42 Reading Location: [facility] Radiology Reading Room Procedure Note Interface, External Ris In - 06/10/2017 8:51 AM EVAPORATIVE COOLER INSTALLER FINAL REPORT TECHNIQUE: Frontal chest radiograph dated [...] Report Verified Date/Time: 06/10/2017 08:49:42 Reading Location: [facility] Radiology Reading Room Performing Organization Address City/[facility] Phone Number [facility] Hepatitis B core antibody, total (06/10/2017 8:13 AM EVAPORATIVE COOLER INSTALLER) Hep B Core Total Ab NON-REACTIVE Nonreactive [facility] Specimen Blood - Arm, Left Performing Organization Address [facility]/Zipcode Phone Number [facility] [address] [place] [phone] CENTER Hepatitis B surface antibody (06/09/2017 7:06 PM EVAPORATIVE COOLER INSTALLER) Hep B S Ab <8.0 <8.0 mIU/mL [facility] Specimen Blood - Central Venous Line Performing Organization Address City/[facility]/Zipcode Phone Number [address] [address] [place] Hepatitis B surface antigen (06/09/2017 7:06 PM EVAPORATIVE COOLER INSTALLER) hepatitis B Surface Ag NON-REACTIVE Nonreactive [facility] Specimen Blood - Central Venous Line Performing Organization Address [facility] Phone Number [facility] [address] [place] [address] IR Tunneled Catheter Insertion (06/09/2017 11:45 AM EVAPORATIVE COOLER INSTALLER) Narrative Performed At FINAL REPORT [facility] Tunneled central venous catheter insertion. History: End-stage renal disease Modality: Sonography and fluoroscopy. Sedation: Moderate sedation was administered. 2 mg of Versed [id number] mcg of fentanyl IV was used for moderate sedation monitored under my direction. Total intra-service time of sedation [id number]. The patient's vital signs were monitored throughout the procedure and recorded in the patient's medical record by the nurse. Auger Operator:Onesimo Lopez MD. Glass Block Installer:None. Approach: Right internal jugular vein Estimated blood [...] needle into the right atrium. A 4 Palauan micropuncture sheath was placed.A subcutaneous tunnel was created in the right anterior chest wall by blunt dissection.A 19 cm tipped cuff 15.5 Palauan Duraflow 2 catheter was brought through the [...] MD Report Verified Date/Time:06/09/2017 12:13:36 Reading Location: [facility] Radiology Reading Room Procedure Note Interface, External Ris In - 06/09/2017 12:21 PM EVAPORATIVE COOLER INSTALLER FINAL REPORT Tunneled central venous catheter insertion. [...] the patient's medical record by the nurse. Auger Operator: Onesimo Lopez MD. Glass Block Installer: None. Approach: Right internal jugular vein [...] needle into the right atrium. A 4 Palauan micropuncture sheath was placed. A subcutaneous tunnel was created in the right anterior chest wall by blunt dissection. A 19 cm tipped cuff 15.5 Palauan Duraflow 2 catheter was brought through the [...] Report Verified Date/Time: 06/09/2017 12:13:36 Reading Location: [facility] Radiology Reading Room Performing Organization Address City/State/Zipcode Phone Number GE RIS PT/aPTT (06/09/2017 5:15 AM EVAPORATIVE COOLER INSTALLER) Protime 10.7 9.3 - 12.0 seconds [facility] INR 1.0 <=5.9 [facility] PTT 28.5 23.0 - 35.0 seconds [facility] Specimen Blood - Arm, Left Narrative Performed At [facility] RECOMMENDED COUMADIN/WARFARIN INR THERAPY RANGES STANDARD DOSE: 2.0 - 3.0 Includes: PROPHYLAXIS for venous thrombosis, systemic embolization; TREATMENT for venous thrombosis and/or pulmonary embolus. HIGH RISK: Target INR is 2.5-3.5 for patients with mechanical heart valves. Performing Organization Address City/[facility] Phone Number [facility] [address] [place] [address] [phone] Phosphorus (06/09/2017 5:15 AM EVAPORATIVE COOLER INSTALLER) Phosphorus 4.1 2.5 - 4.5 mg/dL [facility] Specimen Blood - Arm, Left Performing Organization Address [facility] Phone Number [facility], [place] [phone] Hepatic function panel (06/09/2017 5:15 AM EVAPORATIVE COOLER INSTALLER) Protein, Total 6.3 6.0 - 8.5 gm/dL [facility] Albumin 3.2 (L) 3.5 - 5.0 g/dL [facility] Total Bilirubin 0.4 0.1 - 1.2 mg/dL [facility] Bilirubin, Direct 0.2 0.0 - 0.4 mg/dL [facility] Alkaline Phosphatase 67 30 - 115 U/L [facility] AST 13 5 - 40 U/L [facility] ALT 10 5 - 50 U/L [facility] Specimen Blood - Arm, Left Performing Organization Address [facility] Hospital[facility]i Phone Number [facility] [address] [place], [place] [phone] after 04/27/2017 Insurance Payer Benefit Plan / Subscriber ID Type Phone Address Group BLUE CROSS/BLUE BCBS OS xxxxxxxxxxxx PPO [phone] [address] SHIELD POS/PPO/[place] [address] MEDICARE MEDICARE A B xxxxxxxxxx Medicare Advance Directives For more information, please contact:[address] [phone] Code Status Date Activated Date Inactivated Comments Full Code 06/08/2017 11:37 PM 06/15/2017 8:31 PM This code status was determined by: Patient
--- OUTSIDE RECORDS SUMMARY | 2018-04-28 03:34 | XMS REPORT ---
:1965 [facility] Address [facility] [address] [place] [address] Care Team Providers Name Role Phone DWIGHT [...] (BEAKER) (test 243 mg/dL 70-110 TESTED AT [facility] [address] [place] [address] tsth=2328) [address] [facility] [address] BASIC METABOLIC [id number] 13:51:00 Test Item Value Reference Range Comments SODIUM (BEAKER) (test 139 meq/L 135-148 atwf=494) POTASSIUM (BEAKER) (test 3.4 meq/L 3.6-5.5 rynm=369) CHLORIDE (BEAKER) (test 101 meq/L 98-106 nzmt=348) CO2 (BEAKER) (test 29 meq/L 20-29 qmdr=686) BLOOD UREA NITROGEN 11 mg/dL 10-26 (BEAKER) (test bztk=441) CREATININE (BEAKER) (test 2.10 mg/dL 0.50-1.20 zasj=649) GLUCOSE RANDOM (BEAKER) 157 mg/dL 70-110 (test syni=051) CALCIUM (BEAKER) (test 8.6 mg/dL 8.5-10.5 ngph=853) EGFR (BEAKER) (test 33 mL/min/1.73 sq m ESTIMATED GFR IS NOT hdvw=8234) ACCURATE CREATININE CLEARANCE IN PREDICTING GLOMERULAR FILTRATION RATE. ESTIMATED GFR IS NOT APPLICABLE FOR DIALYSIS PATIENTS. [id number] 13:44:00 Test Item Value Reference Range Comments MAGNESIUM (BEAKER) (test hrvn=501) 1.9 mg/dL 1.5-3.0 CBC W/PLT COUNT & AUTO [id number] 13:34:00 Test Item Value Reference Range Comments WHITE BLOOD CELL COUNT (BEAKER) (test pkps=300) 6.8 K/ L 4.0-10.0 RED BLOOD CELL COUNT (BEAKER) (test mtdt=301) 2.92 M/ L 4.20-5.80 HEMOGLOBIN (BEAKER) (test qjcn=460) 8.4 GM/DL 13.0-16.8 HEMATOCRIT (BEAKER) (test tzka=951) 25.5 % 40.0-50.0 MEAN CORPUSCULAR VOLUME (BEAKER) (test pqna=748) 87.4 fL 82.0-98.0 MEAN CORPUSCULAR HEMOGLOBIN (BEAKER) (test 28.7 pg 27.0-33.0 fnkc=239) MEAN CORPUSCULAR HEMOGLOBIN CONC (BEAKER) (test 32.8 GM/DL 32.0-36.0 qkqy=528) RED CELL DISTRIBUTION WIDTH (BEAKER) (test 14.7 % 10.3-14.2 pvxq=077) PLATELET COUNT (BEAKER) (test nlwc=388) 299 K/CU MM 150-430 MEAN PLATELET VOLUME (BEAKER) (test ewxa=423) 6.9 fL 6.5-10.5 NUCLEATED RED BLOOD CELLS (BEAKER) (test 0 /100 WBC 0-0 nrlt=377) NEUTROPHILS RELATIVE PERCENT (BEAKER) (test 65 % nuyc=642) LYMPHOCYTES RELATIVE PERCENT (BEAKER) (test 18 % umjj=225) MONOCYTES RELATIVE PERCENT (BEAKER) (test 14 % suer=808) EOSINOPHILS RELATIVE PERCENT (BEAKER) (test 3 % faox=458) BASOPHILS RELATIVE PERCENT (BEAKER) (test 1 % zkhe=481) NEUTROPHILS ABSOLUTE COUNT (BEAKER) (test 4.40 K/ L 1.80-8.00 qgtk=942) LYMPHOCYTES ABSOLUTE COUNT (BEAKER) (test 1.20 K/ L 1.48-4.50 zxol=009) MONOCYTES ABSOLUTE COUNT (BEAKER) (test 1.00 K/ L 0.00-1.30 lspj=503) EOSINOPHILS ABSOLUTE COUNT (BEAKER) (test 0.20 K/ L 0.00-0.50 njco=568) BASOPHILS ABSOLUTE COUNT (BEAKER) (test 0.00 K/ L 0.00-0.20 litj=948) POCT-GLUCOSE [id number] 11:28:00 Test Item Value Reference Range Comments POC-GLUCOSE METER (BEAKER) 147 mg/dL 70-110 TESTED AT [address] (test ifdv=6329) [place] [id number] POCT-GLUCOSE [id number] 06:04:00 Test Item Value Reference Range Comments POC-GLUCOSE METER (BEAKER) 137 mg/dL 70-110 TESTED AT [address] (test mtoy=6634) [place] [address] POCT-GLUCOSE [id number] 21:01:00 Test Item Value Reference Range Comments POC-GLUCOSE METER (BEAKER) 138 mg/dL 70-110 TESTED AT [address] (test hwwj=5785) [place] [address] POCT-GLUCOSE [id number] 16:06:00 Test Item Value Reference Range Comments POC-GLUCOSE METER (BEAKER) 167 mg/dL 70-110 TESTED AT [address] (test gbhp=7257) [place] [address] POCT-GLUCOSE [id number] 12:49:00 Test Item Value Reference Range Comments POC-GLUCOSE METER (BEAKER) 144 mg/dL 70-110 TESTED AT [address] (test zabn=0957) [place] [address] [id number] 10:27:00 Test Item Value Reference Range Comments POC-CREATININE (BEAKER) 3.6 mg/dL 0.6-1.3 TESTED AT [address] (test awyj=6271) [place] [id number] POC-EGFR (BEAKER) (test 18 mL/min/1.73M2 eqkz=6402) [id number] 10:27:00 Test Item Value Reference Range Comments POC-SODIUM (BEAKER) (test 138 meq/L 135-148 TESTED AT [address] cwzk=9190) [place] [address] [id number] 10:27:00 Test Item Value Reference Range Comments POC-POTASSIUM (BEAKER) 3.6 meq/L 3.6-5.5 TESTED AT [address] (test yllz=3573) [place] [address] [id number] 10:27:00 Test Item Value Reference Range Comments POC-BUN (BEAKER) (test 20 mg/dL 7-21 TESTED AT [address] jpno=4768) [place] [address] [id number] 10:27:00 Test Item Value Reference Range Comments POC-CHLORIDE (BEAKER) (test 97 meq/L 98-107 TESTED AT [address] ndxi=7442) [place] [address] [id number] 10:27:00 Test Item Value Reference Range Comments POC-GLUCOSE (BEAKER) (test 123 mg/dL 70-110 TESTED AT [address] urpb=2013) [place] [address] [id number] 10:27:00 Test Item Value Reference Range Comments POC-HEMATOCRIT (BEAKER) (test 24 % 40-50 TESTED AT [address] dyws=1906) [place] [address] [id number] 10:27:00 Test Item Value Reference Range Comments POC-HEMOGLOBIN (BEAKER) 8.2 g/dL 13.0-16.8 TESTED AT [address] (test thaw=8352) [place] [address] [id number] 10:27:00 Test Item Value Reference Range Comments POC-TCO2 (BEAKER) (test 30 meq/L 22-29 TESTED AT [address] ouyg=9032) [place] [address] POCT-GLUCOSE [id number] 06:08:00 Test Item Value Reference Range Comments POC-GLUCOSE METER (BEAKER) 163 mg/dL 70-110 TESTED AT [address] (test gyxm=1190) [place] [address] POCT-GLUCOSE [id number] 21:07:00 Test Item Value Reference Range Comments POC-GLUCOSE METER (BEAKER) 132 mg/dL 70-110 TESTED AT [facility] [address] [place] [address] (test xded=4209) [facility] [address] POCT-GLUCOSE [id number] 12:58:00 Test Item Value Reference Range Comments POC-GLUCOSE METER (BEAKER) 178 mg/dL 70-110 TESTED AT [address] (test ghij=3949) [facility] [address] POCT-GLUCOSE [id number] 05:29:00 Test Item Value Reference Range Comments POC-GLUCOSE METER (BEAKER) 171 mg/dL 70-110 TESTED AT [address] (test bkap=4658) [facility] [address] POCT-GLUCOSE [id number] 22:03:00 Test Item Value Reference Range Comments POC-GLUCOSE METER (BEAKER) 249 mg/dL 70-110 TESTED AT [address] (test wqfo=5814) [facility] [address] POCT-GLUCOSE [id number] 16:45:00 Test Item Value Reference Range Comments POC-GLUCOSE METER (BEAKER) 213 mg/dL 70-110 TESTED AT [address] (test nsps=3575) [facility] [address] [id number] 16:43:00 Test Item Value Reference Range Comments THYROID STIMULATING HORMONE (BEAKER) (test 2.09 uIU/mL 0.35-5.50 kaaa=436) COMPREHENSIVE METABOLIC [id number] 16:24:00 Test Item Value Reference Range Comments TOTAL PROTEIN (BEAKER) 7.2 gm/dL 6.0-8.5 (test ecgq=423) ALBUMIN (BEAKER) (test 3.5 g/dL 3.5-5.0 nene=7751) ALKALINE PHOSPHATASE 67 U/L 30-115 (BEAKER) (test wggq=436) BILIRUBIN TOTAL (BEAKER) 0.3 mg/dL 0.1-1.2 (test xuom=451) SODIUM (BEAKER) (test 136 meq/L 135-148 wnln=313) POTASSIUM (BEAKER) (test 4.1 meq/L 3.6-5.5 ptfn=813) CHLORIDE (BEAKER) (test 98 meq/L 98-106 tqcg=474) CO2 (BEAKER) (test 26 meq/L 20-29 vyet=555) BLOOD UREA NITROGEN 32 mg/dL 10-26 (BEAKER) (test qcxy=748) CREATININE (BEAKER) (test 4.40 mg/dL 0.50-1.20 koir=645) GLUCOSE RANDOM (BEAKER) 212 mg/dL 70-110 (test scfb=643) CALCIUM (BEAKER) (test 9.0 mg/dL 8.5-10.5 tbgu=603) AST (SGOT) (BEAKER) (test 14 U/L 5-40 yerp=042) ALT (SGPT) (BEAKER) (test 4 U/L 5-50 argd=249) EGFR (BEAKER) (test 14 mL/min/1.73 sq m ESTIMATED GFR IS NOT jbkl=4308) ACCURATE CREATININE CLEARANCE IN PREDICTING GLOMERULAR FILTRATION RATE. ESTIMATED GFR IS NOT APPLICABLE FOR DIALYSIS PATIENTS. CBC W/PLT COUNT & AUTO [id number] 16:02:00 Test Item Value Reference Range Comments WHITE BLOOD CELL COUNT (BEAKER) (test fddg=936) 6.9 K/ L 4.0-10.0 RED BLOOD CELL COUNT (BEAKER) (test goaq=181) 2.95 M/ L 4.20-5.80 HEMOGLOBIN (BEAKER) (test fksj=772) 8.6 GM/DL 13.0-16.8 HEMATOCRIT (BEAKER) (test hedt=605) 25.9 % 40.0-50.0 MEAN CORPUSCULAR VOLUME (BEAKER) (test uoao=621) 87.9 fL 82.0-98.0 MEAN CORPUSCULAR HEMOGLOBIN (BEAKER) (test 29.0 pg 27.0-33.0 livo=504) MEAN CORPUSCULAR HEMOGLOBIN CONC (BEAKER) (test 33.0 GM/DL 32.0-36.0 jbra=402) RED CELL DISTRIBUTION WIDTH (BEAKER) (test 15.0 % 10.3-14.2 runh=077) PLATELET COUNT (BEAKER) (test qiab=114) 330 K/CU MM 150-430 MEAN PLATELET VOLUME (BEAKER) (test szpm=901) 7.1 fL 6.5-10.5 NUCLEATED RED BLOOD CELLS (BEAKER) (test 0 /100 WBC 0-0 eats=779) NEUTROPHILS RELATIVE PERCENT (BEAKER) (test 66 % jhox=850) LYMPHOCYTES RELATIVE PERCENT (BEAKER) (test 16 % iebo=551) MONOCYTES RELATIVE PERCENT (BEAKER) (test 12 % agvp=445) EOSINOPHILS RELATIVE PERCENT (BEAKER) (test 5 % ylyr=504) BASOPHILS RELATIVE PERCENT (BEAKER) (test 1 % jhxa=110) NEUTROPHILS ABSOLUTE COUNT (BEAKER) (test 4.60 K/ L 1.80-8.00 anui=091) LYMPHOCYTES ABSOLUTE COUNT (BEAKER) (test 1.10 K/ L 1.48-4.50 iyio=916) MONOCYTES ABSOLUTE COUNT (BEAKER) (test 0.80 K/ L 0.00-1.30 hnxy=969) EOSINOPHILS ABSOLUTE COUNT (BEAKER) (test 0.30 K/ L 0.00-0.50 idhz=469) BASOPHILS ABSOLUTE COUNT (BEAKER) (test 0.10 K/ L 0.00-0.20 cxih=312) PROTHROMBIN [id number] 16:01:00 Test Item Value Reference Range Comments PROTIME (BEAKER) (test rdmw=770) 10.3 seconds 9.3-12.0 INR (BEAKER) (test mmvw=997) 1.0 <=5.9 RECOMMENDED COUMADIN/WARFARIN INR THERAPY RANGESSTANDARD DOSE: 2.0 - 3.0 Includes: PROPHYLAXIS forvenous thrombosis, systemic embolization; TREATMENT for venous thrombosis and/or pulmonary embolus.HIGH RISK: Target INR is 2.5-3.5 for patients with mechanical heart valves.POCT-GLUCOSE [id number] 12:01:00 Test Item Value Reference Range Comments POC-GLUCOSE METER (BEAKER) 211 mg/dL 70-110 TESTED AT [facility] [address] [place] [address] (test sgyw=5556) [facility] [address] POCT-GLUCOSE [id number] 06:08:00 Test Item Value Reference Range Comments POC-GLUCOSE METER (BEAKER) 191 mg/dL 70-110 TESTED AT [address] (test hdeh=7327) [facility] [address] POCT-GLUCOSE [id number] 21:28:00 Test Item Value Reference Range Comments POC-GLUCOSE METER (BEAKER) 233 mg/dL 70-110 TESTED AT [address] (test hlmf=5696) [facility] [address] POCT-GLUCOSE [id number] 16:19:00 Test Item Value Reference Range Comments POC-GLUCOSE METER (BEAKER) 290 mg/dL 70-110 TESTED AT [address] (test hnnm=0547) [facility] [address] POCT-GLUCOSE [id number] 13:33:00 Test Item Value Reference Range Comments POC-GLUCOSE METER (BEAKER) 186 mg/dL 70-110 TESTED AT [address] (test bxxh=3122) [facility] [address] POCT-GLUCOSE [id number] 06:27:00 Test Item Value Reference Range Comments POC-GLUCOSE METER (BEAKER) 204 mg/dL 70-110 TESTED AT [address] (test kbgq=6476) [facility] [address] POCT-GLUCOSE [id number] 21:40:00 Test Item Value Reference Range Comments POC-GLUCOSE METER (BEAKER) 267 mg/dL 70-110 TESTED AT [address] (test hfgn=1662) [facility] [address] POCT-GLUCOSE [id number] 17:32:00 Test Item Value Reference Range Comments POC-GLUCOSE METER (BEAKER) 221 mg/dL 70-110 TESTED AT [address] (test tgxy=8832) [facility] [address] HEPATITIS B SURFACE [id number] 14:21:00 Test Item Value Reference Range Comments HEPATITIS B SURFACE ANTIBODY (BEAKER) (test < mIU/mL <8.0 xcec=150) HEPATITIS B CORE ANTIBODY, [id number] 14:15:00 Test Item Value Reference Range Comments HEPATITIS B CORE TOTAL ANTIBODY (BEAKER) (test Nonreactive Nonreactive tajz=254) POCT-GLUCOSE [id number] 12:18:00 Test Item Value Reference Range Comments POC-GLUCOSE METER (BEAKER) 193 mg/dL 70-110 TESTED AT [address] (test eacr=3932) [facility] [address] RAD, CHEST, 1 VIEW, NON [id number] 08:49:00Reason for exam:->for outpatient HD placementShould this [...] Hammereport Verified Date/Time: 06/10/2017 08:49:42 Reading Location: [facility] Radiology Reading Room Electronically signed by: SACHI HAMMER on 2016 08:49 AMPOCT-GLUCOSE [id number] 06:53:00 Test Item Value Reference Range Comments POC-GLUCOSE METER (BEAKER) 177 mg/dL 70-110 TESTED AT [address] (test qesj=7041) [facility] [address] POCT-GLUCOSE [id number] 22:10:00 Test Item Value Reference Range Comments POC-GLUCOSE METER (BEAKER) 109 mg/dL 70-110 TESTED AT [address] (test duqk=5650) [facility] [address] HEPATITIS B SURFACE [id number] 20:18:00 Test Item Value Reference Range Comments HEPATITIS B SURFACE ANTIGEN (2) (BEAKER) (test Nonreactive Nonreactive wwxx=2262) POCT-GLUCOSE [id number] 17:08:00 Test Item Value Reference Range Comments POC-GLUCOSE METER (BEAKER) 223 mg/dL 70-110 TESTED AT [address] (test zhfc=7642) [facility] [address] POCT-GLUCOSE [id number] 12:47:00 Test Item Value Reference Range Comments POC-GLUCOSE METER (BEAKER) 200 mg/dL 70-110 TESTED AT [address] (test sada=2672) [facility] [address] ANG, TUNNELED CATHETER [id number] 12:13:00Reason for exam:->renal failureFINAL REPORT Tunneled central [...] the patient's medical record by the nurse. Practical Nursing Teacher: Onesimo Lopez MD. Mgmt Specialist: None. Approach: Right internal jugular vein [...] needle into the right atrium. A 4 Hong Konger micropuncture sheath was placed. A subcutaneous tunnel was created in the right anterior chest wall by blunt dissection. A 19 cm tipped cuff 15.5 [place] Konger Duraflow 2 catheter was brought through the [...] Lopez Verified Date/Time: 06/09/2017 12:13:36 Reading Location: [facility] Radiology Reading Room 12 :13 PMPOCT-GLUCOSE [id number] 06:03:00 Test Item Value Reference Range Comments POC-GLUCOSE METER (BEAKER) 208 mg/dL 70-110 TESTED AT [facility] [address] [facility] (test yeyx=1807) [address] [facility] [address] BASIC METABOLIC [id number] 06:00:00 Test Item Value Reference Range Comments SODIUM (BEAKER) (test 139 meq/L 135-148 bqoa=697) POTASSIUM (BEAKER) (test 3.5 meq/L 3.6-5.5 yvni=171) CHLORIDE (BEAKER) (test 103 meq/L 98-106 eqmy=499) CO2 (BEAKER) (test 26 meq/L 20-29 gudo=662) BLOOD UREA NITROGEN 62 mg/dL 10-26 (BEAKER) (test nobq=647) CREATININE (BEAKER) (test 5.10 mg/dL 0.50-1.20 dift=038) GLUCOSE RANDOM (BEAKER) 191 mg/dL 70-110 (test qjdy=214) CALCIUM (BEAKER) (test 9.0 mg/dL 8.5-10.5 pwsv=142) EGFR (BEAKER) (test 12 mL/min/1.73 sq m ESTIMATED GFR IS NOT rwex=1070) ACCURATE CREATININE CLEARANCE IN PREDICTING GLOMERULAR FILTRATION RATE. ESTIMATED GFR IS NOT APPLICABLE FOR DIALYSIS PATIENTS. HEPATIC FUNCTION [id number] 05:58:00 Test Item Value Reference Range Comments TOTAL PROTEIN (BEAKER) (test wooj=889) 6.3 gm/dL 6.0-8.5 ALBUMIN (BEAKER) (test rdkk=3647) 3.2 g/dL 3.5-5.0 BILIRUBIN TOTAL (BEAKER) (test qjcz=381) 0.4 mg/dL 0.1-1.2 BILIRUBIN DIRECT (BEAKER) (test jgvx=918) 0.2 mg/dL 0.0-0.4 ALKALINE PHOSPHATASE (BEAKER) (test nnlo=950) 67 U/L 30-115 AST (SGOT) (BEAKER) (test cbno=972) 13 U/L 5-40 ALT (SGPT) (BEAKER) (test vlkv=574) 10 U/L 5-50 CBC W/PLT COUNT & AUTO [id number] 05:56:00 Test Item Value Reference Range Comments WHITE BLOOD CELL COUNT (BEAKER) (test cmyr=459) 6.3 K/ L 4.0-10.0 RED BLOOD CELL COUNT (BEAKER) (test rgst=194) 2.71 M/ L 4.20-5.80 HEMOGLOBIN (BEAKER) (test fplu=528) 7.8 GM/DL 13.0-16.8 HEMATOCRIT (BEAKER) (test fjbf=496) 23.6 % 40.0-50.0 MEAN CORPUSCULAR VOLUME (BEAKER) (test izlt=319) 86.8 fL 82.0-98.0 MEAN CORPUSCULAR HEMOGLOBIN (BEAKER) (test 28.6 pg 27.0-33.0 mopc=545) MEAN CORPUSCULAR HEMOGLOBIN CONC (BEAKER) (test 33.0 GM/DL 32.0-36.0 okyx=604) RED CELL DISTRIBUTION WIDTH (BEAKER) (test 14.8 % 10.3-14.2 uawz=935) PLATELET COUNT (BEAKER) (test ngqv=268) 334 K/CU MM 150-430 MEAN PLATELET VOLUME (BEAKER) (test xhzv=721) 6.9 fL 6.5-10.5 NUCLEATED RED BLOOD CELLS (BEAKER) (test 0 /100 WBC 0-0 wugr=898) NEUTROPHILS RELATIVE PERCENT (BEAKER) (test 57 % mdhc=818) LYMPHOCYTES RELATIVE PERCENT (BEAKER) (test 19 % uqdu=526) MONOCYTES RELATIVE PERCENT (BEAKER) (test 15 % qdey=651) EOSINOPHILS RELATIVE PERCENT (BEAKER) (test 7 % wath=868) BASOPHILS RELATIVE PERCENT (BEAKER) (test 1 % jslp=332) NEUTROPHILS ABSOLUTE COUNT (BEAKER) (test 3.60 K/ L 1.80-8.00 lacc=363) LYMPHOCYTES ABSOLUTE COUNT (BEAKER) (test 1.20 K/ L 1.48-4.50 mobb=927) MONOCYTES ABSOLUTE COUNT (BEAKER) (test 1.00 K/ L 0.00-1.30 htcf=512) EOSINOPHILS ABSOLUTE COUNT (BEAKER) (test 0.50 K/ L 0.00-0.50 pgej=551) BASOPHILS ABSOLUTE COUNT (BEAKER) (test 0.10 K/ L 0.00-0.20 nffb=333) [id number] 05:55:00 Test Item Value Reference Range Comments PHOSPHORUS (BEAKER) (test egxq=592) 4.1 mg/dL 2.5-4.5 [id number] 05:51:00 Test Item Value Reference Range Comments PROTIME (BEAKER) (test dlla=897) 10.7 seconds 9.3-12.0 INR (BEAKER) (test dxrv=683) 1.0 <=5.9 PARTIAL THROMBOPLASTIN TIME (BEAKER) (test 28.5 seconds 23.0-35.0 onum=615) RECOMMENDED COUMADIN/WARFARIN INR THERAPY RANGESSTANDARD DOSE: 2.0 - 3.0 Includes: PROPHYLAXIS forvenous thrombosis, systemic embolization; TREATMENT for venous thrombosis and/or pulmonary embolus.HIGH RISK: Target INR is 2.5-3.5 for patients with mechanical heart valves.[id number] 05:50:00 Test Item Value Reference Range Comments MAGNESIUM (BEAKER) (test zonk=628) 1.7 mg/dL 1.5-3.0 POCT-GLUCOSE [id number] 23:14:00 Test Item Value Reference Range Comments POC-GLUCOSE METER (BEAKER) 230 mg/dL 70-110 TESTED AT [facility] [address] [place] [address] (test zpwe=2383) [facility] [id number]
[2018-04-28] MEDS ORDERED: NA CHLORIDE 0.9% 1,000 ML ONE (04:11)
[2018-04-28] MEDS ORDERED: PANTOPRAZOLE 40 MG INJ ONE (04:11)
[2018-04-28] MEDS ORDERED: PROMETHAZINE 25 MG/ML VIAL ONE ×2 (04:11→09:27)
[2018-04-28 04:27] LABS: Hematocrit 29.8 % (39.6-49.0); MCH 28.8 pg (27.0-35.0); RBC Red Blood Cell Count 3.31 M/uL (4.33-5.43)
[2018-04-28 04:28] LABS: Protime INR 1.22
[2018-04-28] MEDS ORDERED: MORPHINE 4 MG/ML SYR ONE ×2 (04:54→09:28)
[2018-04-28 04:55] LABS: Absolute Lymphocytes (CBC) 0.5 K/uL (0.7-4.9); Absolute Neutrophil 7.1 K/uL (1.8-8.0); Basophils % 0.9 % (0-1.3); Eosinophils % 4.5 % (0-4.4); Lymphocytes % 5.4 % (15.3-44.8); MCV 89.8 fL (80-100); MPV 7.6 fL (7.6-11.3); Monocytes % 10.6 % (3.3-12.3)
[2018-04-28 04:58] LABS: Albumin 3.4 g/dL (3.4-5.0); Bilirubin Direct 0.2 mg/dL (0-0.2); Bilirubin Total 0.6 mg/dL (0.2-1.0); Potassium 4.9 mmol/L (3.5-5.1); Protein, Total 7.7 g/dL (6.4-8.2); Troponin (Emerg Dept Use Only) 0.05 ng/mL (0.0-0.045)
--- NOTE | 2018-04-28 05:03 | ER ---
Nurse's Notes [facility] Name: Yusuf Bah Age: 53 yrs Sex: Male : 1965 Arrival Date: 04/28/2018 Time: 03:31 Bed 8 Private MD: Garo Chavarria Diagnosis: Vomiting;Essential (primary) hypertension;End stage renal disease;Unspecified combined systolic (congestive) and diastolic (congestive) heart failure-volume overload;Anemia, unspecified Presentation: 04/28 03:44 Presenting complaint: Patient states: Pt reports vomiting since yesterday, states " I ea have had this problem before I had my gallbladder removed". Transition of care: patient was not received from another setting of care. Onset of symptoms was April 28, 2018. Risk Assessment: Do you want to hurt yourself or someone else? Patient reports no desire to harm self or others. Initial Sepsis Screen: Does the patient meet any 2 criteria? No. Patient's initial sepsis screen is negative. Does the patient have a suspected source of infection? No. Patient's initial sepsis screen is negative. Care prior to arrival: None. 03:44 Method Of Arrival: Ambulatory ea 03:44 Acuity: ALVERTO 4 ea Triage Assessment: 03:46 General: Appears uncomfortable, Behavior is calm, cooperative, appropriate for age. ea Pain: Complains of pain in back Pain currently is 7 out of 10 on a pain scale. Quality of pain is described as aching. Neuro: Level of Consciousness is awake, alert, obeys commands, Oriented to person, place, time, situation. Cardiovascular: Heart tones S1 S2 present Patient's skin is warm and dry. Respiratory: Airway is patent Respiratory effort is even, unlabored, Respiratory pattern is regular, symmetrical, Breath sounds are clear bilaterally. GI: Bowel sounds present X 4 quads. Abd is soft and non tender X 4 quads. Abd is soft X 4 quads Reports vomiting, since yesterday. Derm: Skin is pink, warm \\T\\ dry. Historical: - Allergies: 03:54 Sulfa (Sulfonamide Antibiotics); ea - Home Meds: 03:54 Ambien 5 mg Oral tab 1 tab once daily [Active]; aspirin 325 mg Oral tab 1 tab once ea daily [Active]; atorvastatin 80 mg Oral tab 1 tab once daily [Active]; clonidine HCl 0.1 mg Oral tab 1 tab 3 times per day [Active]; famotidine 40 mg Oral tab 1 tab once daily [Active]; Humalog Sub-Q per insulin pump [Active]; hydralazine 25 mg Oral tab 3 tab 2 times per day [Active]; lactulose 10 gram/15 mL Oral soln 30 mL once daily [Active]; Lasix 40 mg Oral tab 2 times per day [Active]; metoclopramide HCl 5 mg Oral tab 1 tab three times a day [Active]; metoprolol tartrate 100 mg Oral tab 1 tab 2 times per day [Active]; nitroglycerin 0.2 mg/hr Topical pt24 1 patch once daily [Active]; Nitrostat 0.4 mg SL subl 1 tab every 5 minutes [Active]; Norvasc 10 mg Oral tab 1 tab once daily [Active]; Plavix 75 mg Oral tab 1 tab once daily [Active]; promethazine 25 mg Oral tab 1 tab every 8 hours [Active]; Ranexa 1,000 mg Oral Tb12 1 tab daily [Active]; sertraline 50 mg Oral tab 1 tab once daily [Active]; sevelamer HCl Oral 2 tabs 3 times per day [Active]; Stool Softener 100 mg Oral tab 1 tab 2 times per day [Active]; Travatan Z 0.004 % ophthalmic drop 1 drop once daily [Active]; Vitamin D2 50,000 unit Oral cap 1 cap once wkly [Active]; Zofran (as hydrochloride) 4 mg Oral tab 1 tabs every 6 hours [Active]; - PMHx: 03:54 Small vessle disease of the heart; Renal Disease; Hypertension; High Cholesterol; ea Glaucoma; GERD; Dialysis; Diabetes - IDDM; Depression; CAD; Angina; - PSHx: 03:54 Appendectomy; Cholecystectomy; ea - Immunization history:: Adult Immunizations up to date. - Social history:: Smoking status: Patient/guardian denies using tobacco. - Family history:: not pertinent. - Ebola Screening: : No symptoms or risks identified at this time. Screenin:49 Abuse screen: Denies threats or abuse. Nutritional screening: No deficits noted. ea Tuberculosis screening: No symptoms or risk factors identified. Fall Risk None identified. Assessment: 03:48 Reassessment: see triage assessment. ea 04:14 Reassessment: Patient and/or family updated on plan of care and expected duration. Pain ea level reassessed. Patient is alert, oriented x 3, equal unlabored respirations, skin warm/dry/pink. Vital Signs: 03:48 BP 190 / 87; Pulse 103; Resp 20; Temp 97.8(TE); Pulse Ox 96% ; Weight 95.25 kg; Height ea 6 ft. 3 in. (190.50 cm); Pain 7/10; 04:50 BP 187 / 86; Pulse 90; Resp 19; Pulse Ox 96% on R/A; ea 11:44 BP 163 / 73; Pulse 87; Resp 27; Pulse Ox 99% on R/A; mh5 03:48 Body Mass Index 26.25 (95.25 kg, 190.50 cm) ea ED Course: 03:31 Patient arrived in ED. am2 03:31 Garo Chavarria MD is Private Physician. am2 03:41 Baldemar Batres MD is Attending Physician. logan 03:45 Triage completed. ea 03:49 Patient has correct armband on for positive identification. Bed in low position. Call ea light in reach. 03:49 Arm band placed on right wrist. Patient placed in an exam room, on a stretcher, on ea pulse oximetry. 04:01 Elena Hoffmann RN is Primary Nurse. ea 04:06 Inserted saline lock: 22 gauge in left forearm, using aseptic technique. Blood mt collected. 04:29 X-ray completed. Portable x-ray completed in exam room. Patient tolerated procedure kw well. 04:30 XRAY Chest (1 view) In Process Unspecified. EDMS 04:59 Garo Chavarria MD is Hospitalizing Provider. logan 05:25 No provider procedures requiring assistance completed. Patient admitted, IV remains in ea place. 07:19 Primary Nurse role handed off by Elena Hoffmann, RN sv 07:19 Olivia Albright, LUIZ is Primary Nurse. sv Administered Medications: Discontinued: NS 0.9% 1000 ml IV at 75 ml/hr continuous 04:08 Drug: NS 0.9% 1000 ml Route: IV; Rate: 75 ml/hr; Site: left forearm; ea 04:10 Drug: Phenergan 12.5 mg Route: IVP; Site: left forearm; ea 04:52 Follow up: Response: No adverse reaction; Marked relief of symptoms ea 04:12 Drug: ProTONIX 40 mg Route: IVP; Site: left forearm; ea 04:52 Follow up: Response: No adverse reaction ea 04:52 Drug: morphine 2 mg Route: IVP; Site: left forearm; ea 05:07 Follow up: Response: No adverse reaction; Pain is unchanged, physician notified ea 05:07 Drug: morphine 2 mg Route: IVP; Site: left forearm; ea 05:23 Follow up: Response: No adverse reaction; Pain is decreased ea 05:19 Drug: Phenergan 12.5 mg Route: IVP; Site: left antecubital; ea 05:35 Follow up: Response: No adverse reaction; Marked relief of symptoms ea 05:35 Follow up: Response: Nausea is decreased ea 05:23 Drug: Lasix 40 mg Route: IVP; Site: left forearm; ea 06:00 Follow up: Response: No adverse reaction ea Point of Care Testing: Blood Glucose: 11:44 Blood Glucose: 125 mg/dL; mh5 Ranges: Outcome: 05:01 Decision to Hospitalize by Provider. logan 05:25 Instructed on the need for admit, Demonstrated understanding of instructions. ea 12:30 Admitted to Tele accompanied by tech, via wheelchair, with oxygen, with chart, Report sv called to [facility] 12:30 Condition: stable 12:34 Patient left the ED. sv Signatures: Dispatcher [employer] Olivia Shabazz, Baldemar Spencer RN, MD MD cha Whitley, Kimberlee kw Martinez, Rosanne 5 Jose, Jasmine Esquivel mt, Elena, RN RN ea
--- NOTE | 2018-04-28 05:03 | EDPHYS ---
Physician Documentation [facility] Name: Yusuf Bah Age: 53 yrs Sex: Male : 1965 Arrival Date: 04/28/2018 Time: 03:31 Bed 8 Private MD: Garo Chavarria ED Physician Baldemar Batres HPI: 04/28 03:44 This 53 yrs old Male presents to ER via Unassigned with complaints of logan Nausea/Vomiting. 03:44 The patient presents to the emergency department with nausea, vomiting, abdominal pain. logan Onset: The symptoms/episode began/occurred 1 day(s) ago. Possible causes: unknown. The symptoms are aggravated by nothing. Associated signs and symptoms: The patient has no apparent associated signs or symptoms. Severity of symptoms: At their worst the symptoms were moderate in the emergency department the symptoms are unchanged. The patient has not experienced similar symptoms in the past. Historical: - Allergies: 03:54 Sulfa (Sulfonamide Antibiotics); ea - Home Meds: 03:54 Ambien 5 mg Oral tab 1 tab once daily [Active]; aspirin 325 mg Oral tab 1 tab once ea daily [Active]; atorvastatin 80 mg Oral tab 1 tab once daily [Active]; clonidine HCl 0.1 mg Oral tab 1 tab 3 times per day [Active]; famotidine 40 mg Oral tab 1 tab once daily [Active]; Humalog Sub-Q per insulin pump [Active]; hydralazine 25 mg Oral tab 3 tab 2 times per day [Active]; lactulose 10 gram/15 mL Oral soln 30 mL once daily [Active]; Lasix 40 mg Oral tab 2 times per day [Active]; metoclopramide HCl 5 mg Oral tab 1 tab three times a day [Active]; metoprolol tartrate 100 mg Oral tab 1 tab 2 times per day [Active]; nitroglycerin 0.2 mg/hr Topical pt24 1 patch once daily [Active]; Nitrostat 0.4 mg SL subl 1 tab every 5 minutes [Active]; Norvasc 10 mg Oral tab 1 tab once daily [Active]; Plavix 75 mg Oral tab 1 tab once daily [Active]; promethazine 25 mg Oral tab 1 tab every 8 hours [Active]; Ranexa 1,000 mg Oral Tb12 1 tab daily [Active]; sertraline 50 mg Oral tab 1 tab once daily [Active]; sevelamer HCl Oral 2 tabs 3 times per day [Active]; Stool Softener 100 mg Oral tab 1 tab 2 times per day [Active]; Travatan Z 0.004 % ophthalmic drop 1 drop once daily [Active]; Vitamin D2 50,000 unit Oral cap 1 cap once wkly [Active]; Zofran (as hydrochloride) 4 mg Oral tab 1 tabs every 6 hours [Active]; - PMHx: 03:54 Small vessle disease of the heart; Renal Disease; Hypertension; High Cholesterol; ea Glaucoma; GERD; Dialysis; Diabetes - IDDM; Depression; CAD; Angina; - PSHx: 03:54 Appendectomy; Cholecystectomy; ea - Immunization history:: Adult Immunizations up to date. - Social history:: Smoking status: Patient/guardian denies using tobacco. - Family history:: not pertinent. - Ebola Screening: : No symptoms or risks identified at this time. ROS: 03:44 Constitutional: Negative for fever, chills, and weight loss, Eyes: Negative for injury, logan pain, redness, and discharge, ENT: Negative for injury, pain, and discharge, Neck: Negative for injury, pain, and swelling, Cardiovascular: Negative for chest pain, palpitations, and edema, Respiratory: Negative for shortness of breath, cough, wheezing, and pleuritic chest pain, Back: Negative for injury and pain, : Negative for injury, bleeding, discharge, and swelling, MS/Extremity: Negative for injury and deformity, Skin: Negative for injury, rash, and discoloration, Neuro: Negative for headache, weakness, numbness, tingling, and seizure. 03:44 Abdomen/GI: Positive for abdominal pain, nausea and vomiting, of the right upper quadrant, left upper quadrant, right lower quadrant and left lower quadrant. Exam: 03:44 Constitutional: This is a well developed, well nourished patient who is awake, alert, logan and in no acute distress. Head/Face: Normocephalic, atraumatic. Eyes: Pupils equal round and reactive to light, extra-ocular motions intact. Lids and lashes normal. Conjunctiva and sclera are non-icteric and not injected. Cornea within normal limits. Periorbital areas with no swelling, redness, or edema. ENT: Nares patent. No nasal discharge, no septal abnormalities noted. Tympanic membranes are normal and external auditory canals are clear. Oropharynx with no redness, swelling, or masses, exudates, or evidence of obstruction, uvula midline. Mucous membranes moist. Neck: Trachea midline, no thyromegaly or masses palpated, and no cervical lymphadenopathy. Supple, full range of motion without nuchal rigidity, or vertebral point tenderness. No Meningismus. Chest/axilla: Normal chest wall appearance and motion. Nontender with no deformity. No lesions are appreciated. Cardiovascular: Regular rate and rhythm with a normal S1 and S2. No gallops, murmurs, or rubs. Normal PMI, no JVD. No pulse deficits. Respiratory: Lungs have equal breath sounds bilaterally, clear to auscultation and percussion. No rales, rhonchi or wheezes noted. No increased work of breathing, no retractions or nasal flaring. Back: No spinal tenderness. No costovertebral tenderness. Full range of motion. Male : Normal genitalia with no discharge or lesions. MS/ Extremity: Pulses equal, no cyanosis. Neurovascular intact. Full, normal range of motion. Neuro: Awake and alert, GCS 15, oriented to person, place, time, and situation. Cranial nerves II-XII grossly intact. Motor strength 5/5 in all extremities. Sensory grossly intact. Cerebellar exam normal. Normal gait. Psych: Awake, alert, with orientation to person, place and time. Behavior, mood, and affect are within normal limits. 03:44 Abdomen/GI: Inspection: abdomen appears normal, Bowel sounds: normal, Liver: no appreciated palpable abnormalities, Hernia: not appreciated. Vital Signs: 03:48 BP 190 / 87; Pulse 103; Resp 20; Temp 97.8(TE); Pulse Ox 96% ; Weight 95.25 kg; Height ea 6 ft. 3 in. (190.50 cm); Pain 7/10; 04:50 BP 187 / 86; Pulse 90; Resp 19; Pulse Ox 96% on R/A; ea 11:44 BP 163 / 73; Pulse 87; Resp 27; Pulse Ox 99% on R/A; mh5 03:48 Body Mass Index 26.25 (95.25 kg, 190.50 cm) ea MDM: 03:[address] [facility] 03:46 Data reviewed: vital signs, nurses notes, lab test result(s), EKG, radiologic studies, [facility] CT scan, plain films. 04/28 03:44 Order name: Basic Metabolic Panel; Complete Time: 05:[address] [facility] 04/28 03:44 Order name: CBC with Diff; Complete Time: 04:[address] [facility] 04/28 03:44 Order name: LFT's; Complete Time: 05:[address] [facility] 04/28 03:44 Order name: Magnesium; Complete Time: 05:[address] [facility] 04/28 03:44 Order name: NT PRO-BNP; Complete Time: 05:[address] [facility] 04/28 03:44 Order name: PT-INR; Complete Time: 04:[address] [facility] 04/28 03:44 Order name: Troponin (emerg Dept Use Only); Complete Time: 05:[address] [facility] 04/28 03:44 Order name: XRAY Chest (1 view) [facility] 04/28 03:44 Order name: Lipase; Complete Time: 05:[address] [facility] 04/28 03:44 Order name: Type And Screen; Complete Time: 07:[address] [facility] 04/28 05:12 Order name: Troponin I [facility] 04/28 05:12 Order name: Troponin I [facility] 04/28 12:01 Order name: Glucose, Ancillary Testing [facility] 04/28 12:01 Order name: Glucose, Ancillary Testing [facility] 04/28 03:44 Order name: EKG; Complete Time: 03:[address] [facility] 04/28 03:44 Order name: Cardiac monitoring; Complete Time: 03:[address] [facility] 04/28 03:44 Order name: EKG - Nurse/Tech; Complete Time: 03:[address] [facility] 04/28 03:44 Order name: IV Saline Lock; Complete Time: 04:[address] [facility] 04/28 05:12 Order name: CONS Physician Consult [facility] 04/28 05:12 Order name: CONS Physician Consult [facility] 04/28 05:12 Order name: Consistent Carb (ADA) [address] [facility] 04/28 05:12 Order name: EKG Electrocardiogram [facility] 04/28 05:12 Order name: EKG Electrocardiogram [facility] 04/28 03:44 Order name: Labs collected and sent; Complete Time: 04:[address] [facility] 04/28 03:44 Order name: O2 Per Protocol; Complete Time: 03:[address] [facility] 04/28 03:44 Order name: O2 Sat Monitoring; Complete Time: 03:[address] [facility] Administered Medications: Discontinued: NS 0.9% 1000 ml IV at 75 ml/hr continuous 04:08 Drug: NS 0.9% 1000 ml Route: IV; Rate: 75 ml/hr; Site: left forearm; ea 04:10 Drug: Phenergan 12.5 mg Route: IVP; Site: left forearm; ea 04:52 Follow up: Response: No adverse reaction; Marked relief of symptoms ea 04:12 Drug: ProTONIX 40 mg Route: IVP; Site: left forearm; ea 04:52 Follow up: Response: No adverse reaction ea 04:52 Drug: morphine 2 mg Route: IVP; Site: left forearm; ea 05:07 Follow up: Response: No adverse reaction; Pain is unchanged, physician notified ea 05:07 Drug: morphine 2 mg Route: IVP; Site: left forearm; ea 05:23 Follow up: Response: No adverse reaction; Pain is decreased ea 05:19 Drug: Phenergan 12.5 mg Route: IVP; Site: left antecubital; ea 05:35 Follow up: Response: No adverse reaction; Marked relief of symptoms ea 05:35 Follow up: Response: Nausea is decreased ea 05:23 Drug: Lasix 40 mg Route: IVP; Site: left forearm; ea 06:00 Follow up: Response: No adverse reaction ea Point of Care Testing: Blood Glucose: 11:44 Blood Glucose: 125 mg/dL; mh5 Ranges: Critical Glucose Levels:Adult <50 mg/dl or >400 mg/dl <40 mg/dl or >180 mg/dl Disposition: 04/28/18 05:01 Hospitalization ordered by Garo Chavarria for Observation. Preliminary diagnosis are Vomiting, Essential (primary) hypertension, End stage renal disease, Unspecified combined systolic (congestive) and diastolic (congestive) heart failure - volume overload, Anemia, unspecified. - Bed requested for Telemetry/MedSurg (observation). - Status is Observation. sv - Condition is Fair. - Problem is new. - Symptoms have improved. UTI on Admission? No Signatures: Dispatcher [employer] Addis Parra RN RN kl Verde, Stephanie, RN RN sv Anderson, Corey, MD MD cha Fitzgerald, Diane, RN RN df Antunez, Elena, RN RN ea Corrections: (The following items were deleted from the chart) 05:34 05:01 Hospitalization Ordered by Garo Chavarria MD for Observation. Preliminary diagnosis kl is Vomiting; Essential (primary) hypertension; End stage renal disease; Unspecified combined systolic (congestive) and diastolic (congestive) heart failure - volume overload; Anemia, unspecified. Bed requested for Telemetry/MedSurg (observation). Status is Observation. Condition is Fair. Problem is new. Symptoms have improved. UTI on Admission? No. logan 11:59 05:34 04/28/2018 05:01 Hospitalization Ordered by Garo Chavarria MD for Observation. df Preliminary diagnosis is Vomiting; Essential (primary) hypertension; End stage renal disease; Unspecified combined systolic (congestive) and diastolic (congestive) heart failure - volume overload; Anemia, unspecified. Bed requested for [facility] ER HOLD. Status is Observation. Condition is Fair. Problem is new. Symptoms have improved. UTI on Admission? No. kl 12:34 11:59 04/28/2018 05:01 Hospitalization Ordered by Garo Chavarria MD for Observation. sv Preliminary diagnosis is Vomiting; Essential (primary) hypertension; End stage renal disease; Unspecified combined systolic (congestive) and diastolic (congestive) heart failure - volume overload; Anemia, unspecified. Bed requested for Telemetry/MedSurg (observation). Status is Observation. Condition is Fair. Problem is new. Symptoms have improved. UTI on Admission? No. df
[2018-04-28] MEDS ORDERED: ACETAMINOPHEN 500 MG TAB PO PRN (05:05)
[2018-04-28] MEDS ORDERED: ONDANSETRON 4 MG/2 ML VIAL IV PRN (05:05)
[2018-04-28] MEDS ORDERED: ALBUTEROL 2.5 MG/3 ML NEB SOL NEB PRN (05:05)
[2018-04-28] MEDS ORDERED: IPRATROPIUM BROM 0.5MG/2.5ML NEB PRN (05:05)
[2018-04-28] MEDS ORDERED: SODIUM CHLORIDE 0.9% 10ML INJ IV PRN (05:08)
[2018-04-28] MEDS ORDERED: D50W 25 GM/50 ML SYRINGE IV PRN (05:08)
[2018-04-28] MEDS ORDERED: GLUCAGON 1 MG/VIAL IM PRN (05:08)
[2018-04-28] MEDS ORDERED: FUROSEMIDE 40 MG/4 ML VIAL ONE (05:29)
--- NOTE | 2018-04-28 07:04 | EKG ---
Test Date: 2018-04-28 Test Time: 03:50:25 Behavioral Consultant: ZOIE MEASUREMENT RESULTS: Intervals: Rate: 107 [place]: 160 QRSD: 100 QT: 356 QTc: 475 [place]: P: 44 [place]: 160 QRS: 3 T: 94 INTERPRETIVE STATEMENTS: Sinus tachycardia Anteroseptal infarct, age undetermined Abnormal ECG Compared to ECG 03/13/2018 14:22:24 Myocardial infarct finding now present Sinus bradycardia no longer present T-wave abnormality no longer present prolonged QT interval no longer present Electronically Signed On 04-28-18 07:04:04 LUNCHROOM AIDE by Kevin Esqueda
[2018-04-28] MEDS: INSULIN -REGULAR HUMAN 50 UNIT/0.5 ML ML SQ SCH ×4 (07:30→21:00)
[2018-04-28] MEDS: PANTOPRAZOLE 40 MG INJ IVP SCH (08:33)
[2018-04-28] MEDS: FUROSEMIDE 20 MG/ 2ML VIAL IV SCH ×2 (08:33→17:44)
--- NOTE | 2018-04-28 08:44 | RAD REPORT ---
EXAM DESCRIPTION: RAD - Chest Single View - 04/28/2018 4:32 am CLINICAL HISTORY: COUGH Chest pain. COMPARISON: Chest Single View dated 01/25/2018; Chest Single View dated 06/08/2017; Chest Single View dated 06/06/2017; Chest Single View dated 06/03/2017 FINDINGS: Portable technique limits examination quality. Subsegmental atelectasis is seen in the right mid lung with small right pleural effusion suspected. T he left lung is grossly clear. Left-sided venous catheter its tip in the SVC. Heart size is mildly en larged. No displaced fractures.
[2018-04-28] MEDS: PROMETHAZINE 25 MG/ML VIAL IV PRN ×3 (09:25→21:53)
[2018-04-28] MEDS: MORPHINE 4 MG/ML SYR IV PRN ×3 (09:27→21:52)
--- NOTE | 2018-04-28 10:58 | P.CNS ---
Date of Consult: 04/28/18 Reason for Consult: ESRD to resume HD and volume mgm Chief Complaint: nausea and vomiting History of Present Illness: A 53-year-old gentleman with significant past medical history of ESRD on HD MWF diabetes, hypertension; coronary artery disease, congestive heart failure, diastolic dysfunction; secondary hyperparathyroidism; peripheral vascular disease; hyperlipidemia. Pt presented for nausea and vomiting started since yesterday no chest pain, palpitation, abd pain, diarrhea or constipation improved now Allergies Sulfa (Sulfonamide Antibiotics) [Sulfa(Sulfonamide Antibiotics)] Allergy ( Verified 03/03/18 00:03) Hives/Rash Home Medications: Amlodipine [Norvasc] 10 mg PO DAILY 03/03/18 Aspirin [Aspirin EC 325 MG] 325 mg PO DAILY 03/03/18 Atorvastatin Calcium [Lipitor] 80 mg PO DAILY 03/03/18 Clonidine HCl [Catapres] 0.1 mg PO TID 03/03/18 Clopidogrel Bisulfate [Plavix*] 75 mg PO DAILY 03/03/18 Famotidine 40 mg PO BEDTIME 03/03/18 Furosemide [Lasix] 40 mg PO BID 03/03/18 Hydralazine [Apresoline] 3 tab PO BID 03/03/18 Insulin Lispro [Humalog] 40 unit SQ SEECOM 03/03/18 Metoclopramide HCl 5 mg PO TID 03/03/18 Metoprolol Tartrate 100 mg PO BID 03/03/18 Nitroglycerin Patch [Transderm-Nitro 0.2MG/Hr Patch] 1 each TD PRN PRN 03/03/18 Nitroglycerin [Nitrostat] 0.4 mg SL SEECOM PRN 03/03/18 Ranolazine [Ranexa] 1,000 mg PO DAILY 03/03/18 Sennosides/Docusate Sodium [Eq Stool Softener-Stim Lax Tab] 1 each PO BID Sertraline [Zoloft] 50 mg PO DAILY 03/03/18 Travoprost (Benzalkonium) [Travatan 0.004% Eye Drop] 1 drop EACH EYE BEDTIME Zolpidem Tartrate [Ambien] 5 mg PO BEDTIME PRN 03/03/18 Ergocalciferol (Vitamin D2) [Vitamin D2] 1 cap PO SEECOM 03/22/18 Lactulose 10 gm PO DAILY PRN 03/22/18 Ondansetron HCl [Zofran] 4 mg PO Q6H PRN 03/22/18 Promethazine HCl 1 tab PO Q8H PRN 03/22/18 Sevelamer Carbonate 2 tab PO TID 03/22/18 Codeine/APAP [Tylenol W/Codeine #3 tab] 1 tab PO Q4HP PRN #40 tab 03/24/18 - Past Medical/Surgical History Diabetic: Yes -: HTN -: Hyperlipidemia -: Obesity -: Small-vessel disease, CAD -: Chronic renal disease- Dialysis -: Anemia of chronic disease -: Diabetes mellitus type 2 -: GERD -: Glucoma -: Heart Cath-10 years ago and [address] Love -: Appendectomy 1981 -: Right shoulder surgery x3:2-rotator cuff repair, 1-release of muscle tissue -: Heart cath Jan 2014 -: Dialysis catheter placed Psychosocial/ Personal History: Patient is currently . He has 2 children. He does not work. Patient is disabled. - Family History Father Medical History: Heart disease, Cancer, Other (see notes) Notes: TB. Mother Medical History: Heart disease, Diabetes - Social History Smoking Status: Never smoker Alcohol use: No CD- Drugs: No Caffeine use: No Physical Examination Temp Pulse Resp BP Pulse Ox 98.7 F 92 H 18 163/77 H 91 04/28/18 08:00 04/28/18 08:33 04/28/18 08:00 04/28/18 08:33 04/28/18 08:00 General: Oriented x3 Neck: Supple, Without JVD or thyroid abnormality Respiratory: Clear to auscultation bilaterally, Normal air movement Cardiovascular: Regular rate/rhythm, Normal S1 S2, Edema Gastrointestinal: Normal bowel sounds, Soft and benign, Non-distended, No tenderness Laboratory Data (last 24 hrs) 04/28/18 04:05: PT 14.4 H, INR 1.22 04/28/18 04:05: WBC 9.1, Hgb 9.6 L, Hct 29.8 L, Plt Count 294 04/28/18 04:05: Sodium 139, Potassium 4.9, BUN 42 H, Creatinine 6.30 H*, Glucose 150 H, Magnesium 2.0, Total Bilirubin 0.6, AST 15, ALT 11 L, Alkaline Phosphatase 76, Lipase 311 - Problems (1) Chronic back pain Onset Date: 03/14/18 Current Visit: No Status: Chronic (2) Diabetes mellitus with chronic kidney disease Onset Date: 03/14/18 Current Visit: No Status: Chronic (3) Intractable nausea and vomiting Onset Date: 02/24/17 Current Visit: No Status: Acute Qualifiers: (4) CAD (coronary artery disease) Onset Date: 02/24/17 Current Visit: No Status: Chronic Qualifiers: (5) ESRD (end stage renal disease) Onset Date: 01/25/18 Current Visit: No Status: Chronic Conclusions/Impression: ESRd on HD MWF will resume HD today renal diet renal dose all meds vomiting improved now Dc IVF tolerating diet DM BS control HTN resume home meds
[2018-04-28] MEDS ORDERED: HYDROCODONE/APAP 5/325 MG TAB PO PRN (14:38)
[2018-04-28] MEDS ORDERED: ZOLPIDEM TARTRATE 5 MG TABLET PO PRN (14:38)
[2018-04-28] MEDS ORDERED: NITROGLYCERIN 0.4 MG/TAB SL PRN (14:38)
[2018-04-28] MEDS ORDERED: HOME MED 1 EA UNK (Lactulose [Lactulose] 10 GM) PO PRN (14:38)
[2018-04-28] MEDS ORDERED: METOPROLOL TARTRATE 5 MG/5 ML INJ IV STA (14:47)
--- NOTE | 2018-04-28 14:58 | ECHO ---
HEIGHT: 6 ft 3 in WEIGHT: 215 lb 14.4 oz DATE OF STUDY: 04/28/[address]: Kevin Esqueda MD 2-DIMENSIONAL: YES M.MODE: YES DOPPLER: YES COLOR FLOW: YES TDS: PORTABLE: DEFINITY: BUBBLE STUDY: DIAGNOSIS: CONGESTIVE HEART FAILURE CARDIAC HISTORY: CATHERIZATION: SURGERY: PROSTHETIC VALVE: PACEMAKER: MEASUREMENTS (cm) DIASTOLIC (NORMALS) SYSTOLIC (NORMALS) IVSd 1.3 (0.6-1.2) LA Diam 4.9 (1.9-4.0) LVEF 60% LVIDd 5.4 (3.5-5.7) LVIDs 3.7 (2.0-3.5) %FS 33% LVPWd 1.3 (0.6-1.2) Ao Diam 3.2 (2.0-3.7) 2 DIMENSIONAL ASSESSMENT: RIGHT ATRIUM: NORMAL LEFT ATRIUM: DILATED RIGHT VENTRICLE: NORMAL LEFT VENTRICLE: LEFT VENTRICULAR HYPERTROPHY TRICUSPID VALVE: NORMAL MITRAL VALVE: NORMAL PULMONIC VALVE: NORMAL AORTIC VALVE: NORMAL PERICARDIAL EFFUSION: SMALL AORTIC ROOT: NORMAL LEFT VENTRICULAR WALL MOTION: APICAL HYPOKINESIS. DOPPLER/COLOR FLOW: MILD MITRAL REGURGITATION. MODERATE TRICUSPID REGURGITATION. SEVERE PULMONARY HYPERTENSION. ESTIMATED RIGHT VENTRICULAR SYSTOLIC PRESSURE 75 mmHg. COMMENTS: NORMAL LEFT VENTRICULAR EJECTION FRACTION WITH WALL MOTION ABNORMALITY. DILATED LEFT ATRIUM. LEFT VENTRICULAR HYPERTROPHY. MILD MITRAL REGURGITATION. MODERATE TRICUSPID REGURGITATION. SMALL PERICARDIAL EFFUSION. SEVERE PULMONARY HYPERTENSION. TECHNOLOGIST: VALERIA ROLON
[2018-04-28] MEDS: cloNIDine HCl 0.1 MG TAB PO SCH ×2 (15:00→21:52)
[2018-04-28] MEDS ORDERED: CLONIDINE 0.3 MG/PATCH TD ONE (15:05)
[2018-04-28] MEDS ORDERED: LACTULOSE 20 GM/30 ML UCUP PO PRN (15:06)
[2018-04-28] MEDS: GUAIFENESIN/DM 5 ML UCUP PO PRN ×2 (15:18→21:50)
[2018-04-28] MEDS: SEVELAMER CARBONATE 800 MG TABLET PO SCH ×2 (17:00→17:41)
--- NOTE | 2018-04-28 18:34 | CON ---
Chief Complaint: Vomiting. History Of Present Illness: Mr. Bah is a gentleman, who has end-stage renal disease, gets dialysis . He has end-stage heart disease and although he has a normal ejection fraction, he has a severe aubrie rovascular disease and stenting and that sort of thing is not an option with him. He came to the [facility] because of vomiting for a year. He had vomiting just about everyday and extensive workup was d one and he seemed to do well after his gallbladder was removed. He went a month without having vomit ing and today is the first day since his gallbladder surgery, but he has had the nausea and vomiting. He has dry heaves. No chest pain or shortness of breath. He just is anorexic and feels like he wa nts to vomit. His N-terminal proBNP is 122,000, which is a blood test that probably is completely un reliable in renal failure. Troponins are 0.06, and 0.13. Creatinine is 6.3, blood sugars 152, 125. Medications: His home medications have been zolpidem, travoprost, sertraline, stool softener sennosi sidney with docusate, Ranexa, nitroglycerin patch, nitroglycerin sublingual, metoprolol 100 b.i.d., meto clopramide, insulin lispro, hydralazine, furosemide, famotidine, Plavix, clonidine, atorvastatin, asp irin, amlodipine, ergocalciferol or Vitamin D2, sevelamer carbonate, promethazine, Zofran, lactulose, codeine, and hydrocodone. Physical Examination: General: The patient is 6 feet 3 inches, 209 pounds, sitting. He does not appear to be in any distr ess, not vomiting at the present time, feeling just mildly nauseated. Lungs: Clear. Heart exam: Regular rate and rhythm, S4 gallop. Abdomen: Soft. Extremities: Mild edema. No cyanosis or clubbing. Impression: The patient's heart condition is probably not what is responsible for his vomiting. Andrew [place] an echocardiogram has been ordered. We will have a look at that to see what we might learn fr om that. I do not think we can blame his present heart condition for his nausea. The numerous medic ations he takes are likely source for the culprit. Thank you very much for your kind referral of Mr. Bah. I will follow him with you. DANA/NESSA Voice ID: [id number] Report ID: [id number]
[2018-04-28] MEDS ORDERED: HOME MED 1 EA UNK (Metoprolol Tartrate [Metoprolol Tartrate] 100 MG) PO SCH (21:00)
[2018-04-28] MEDS ORDERED: HOME MED 1 EA UNK (Famotidine [Famotidine] 40 MG) PO SCH (21:00)
[2018-04-28] MEDS: HOME MED 1 EA UNK (Travoprost (Benzalkonium) [Travatan 0.004% Eye Drop] 1 DROP) EACH EYE SCH (21:00)
[2018-04-28] MEDS: HYDRALAZINE HCL 25 MG TABLET PO SCH (21:51)
[2018-04-28] MEDS: FAMOTIDINE 20 MG TAB PO SCH (21:51)
[2018-04-28] MEDS: DOCUSATE NA/SENNA CONC 1 TAB PO SCH (21:51)
[2018-04-28] MEDS: METOPROLOL TAR 50 MG TAB PO SCH (21:51)
[2018-04-28] MEDS: HEPARIN 5000 UNIT/ML 1 ML VIAL SQ SCH (21:51)
--- NOTE | 2018-04-29 02:44 | HP ---
Date of Admission: 04/28/2018 Chief Complaint: Nausea, vomiting, cough. History Of Present Illness: This is a 53-year-old male patient who has chronic back pain, recently s tarted seeing Pain Management Doctor, Dr. Killian. The patient was started on hydrocodone by him an d he takes that medication, but says it is not helping his pain and he will follow up with him to dis cuss more. Meanwhile, he came into emergency room with some cough, congestion, and started to have s ome nausea and vomiting with that. Denies any fever. No expectoration. No abdominal pain. He goes for dialysis on Tuesday, Tuesday, Tuesday. Last dialysis was Tuesday, which is day before yesterd ay and the patient says that was his full session of dialysis. After he came into the ER today, he w as evaluated and admitted to the hospital. I saw him in emergency room. His family members were pre sent at bedside. Allergies: SULFA. Medications: List reviewed. Review of Systems: GI: As mentioned above. Musculoskeletal: As mentioned above. All other systems reviewed are negative. Social History: Negative for smoking and alcohol use. Family History: Significant for throat cancer, tuberculosis, hypertension, diabetes mellitus. Past Surgical History: Significant for rotator cuff surgery; appendectomy; eye surgery; had AV graft placement in right upper extremity, this was done in February 2018; cholecystectomy due to biliary dyskinesia, done in March 2018. Past Medical History: End-stage renal disease, on hemodialysis; hypertension; type 2 diabetes mellit us; coronary artery disease; anemia due to chronic kidney disease; hyperlipidemia; gastritis; biliary dyskinesia; chronic back pain. Physical Examination: Vital Signs: When he came into the emergency room, temperature 97.8, pulse 103, respiratory rate 20, blood pressure 190/87, oxygen saturation 96%, height 6 feet 3 inches, weight 215 pounds. General: Awake, alert, oriented, not in distress. HEENT: Head atraumatic, normocephalic. Conjunctivae nonerythematous. Sclerae white. Mouth, no thr ush or edema noted. Ears/Nose, no mass, lesion, discharge noted. Neck: Supple. No JVD, lymph nodes, bruit, thyromegaly noted. Lungs: Some scattered rales in lower lung kirk. Heart: Normal heart sounds, no murmur or gallop. Abdomen: Soft, bowel sounds normal. No guarding, rigidity, tenderness, mass, hepatosplenomegaly, dis tention, or bruit noted. Extremities: No leg edema. No calf tenderness. Skin: No rash, ulcer, cellulitis. Lymphatics: No lymph node enlargement in neck, supraclavicular, infraclavicular region. Neuro: No focal neurological deficit. Chest: Unremarkable. External Genitalia: Deferred. Rectal: Deferred. Laboratory Data: White count 9.1, hemoglobin 9.6, platelets 294. INR 1.22. Sodium 139, potassium 4 .9, chloride 104, bicarb 23, BUN 42, creatinine 6.3, glucose 150. Liver function tests unremarkable. Troponin 0.05 on the first set, second set 0.06. ProBNP 122,083. Lipase 311. The echocardiogram shows apical hypokinesis and ejection fraction 60%, severe pulmonary hypertension, small pericardial effusion, left ventricular hypertrophy, mild mitral regurgitation, moderate tricus pid regurgitation. Chest x-ray; subsegmental atelectasis right midlung with small right pleural effu neal, left lung clear. EKG, sinus tachycardia. Impression: 1.Volume overload, secondary to end-stage renal disease. 2.Nausea with vomiting, secondary to volume overload. 3.End-stage renal disease, on hemodialysis. 4.Hypertension. 5.Diabetes mellitus with kidney disease. 6.Anemia due to chronic kidney disease. 7.Hyperlipidemia. 8.Coronary artery disease. 9.Chronic gastritis. 10.Lumbar spondylosis. Plan: 1.Admit the patient to hospital for further evaluation and management of this problem. 2.We will go ahead and consult manager of global for dialysis support. Consult Cardiology. Home medicat ions will be continued per order. The patient's blood pressure was elevated after I saw him and he i s not able to keep any medications down because of nausea and vomiting, so IV medication and clonidin e patch were ordered and metoprolol 5 mg IV will be given. Home medications otherwise will be contin ued per order. I will see him tomorrow for followup and we will go ahead and give him heparin for DV T prophylaxis. ERNESTO/MODL Voice ID: [id number]
[2018-04-29] MEDS: GUAIFENESIN/DM 5 ML UCUP PO PRN ×2 (05:48→13:36)
[2018-04-29] MEDS: PROMETHAZINE 25 MG/ML VIAL IV PRN (05:48)
[2018-04-29] MEDS: MORPHINE 4 MG/ML SYR IV PRN ×3 (05:48→17:08)
[2018-04-29 06:42] LABS: Absolute Lymphocytes (CBC) 0.6 K/uL (0.7-4.9); Absolute Monocytes 0.7 K/uL (0.1-1.3); Absolute Neutrophil 3.9 K/uL (1.8-8.0); Eosinophils % 5.9 % (0-4.4); Hematocrit 27.7 % (39.6-49.0); MCV 89.6 fL (80-100); MPV 7.2 fL (7.6-11.3); Monocytes % 12.1 % (3.3-12.3); RBC Red Blood Cell Count 3.09 M/uL (4.33-5.43)
[2018-04-29 07:05] LABS: BUN Blood Urea Nitrogen 33 mg/dL (7-18); Bicarbonate 26 mmol/L (21-32); Glucose Level 115 mg/dL (74-106); Potassium 4.8 mmol/L (3.5-5.1); Sodium Level 135 mmol/L (136-145)
[2018-04-29 07:15] LABS: NT PRO-BNP > 35000 pg/mL (<125)
[2018-04-29] MEDS: INSULIN -REGULAR HUMAN 50 UNIT/0.5 ML ML SQ SCH ×4 (07:30→21:00)
--- NOTE | 2018-04-29 08:30 | PN ---
Date of Progress Note: 04/29/2018 Subjective: The patient was seen this morning for followup. He was sleeping, easily arousable, not in distress, still has some nausea and no abdominal pain. He says he did tolerate some of his evenin g meal yesterday and had late dialysis yesterday. Objective: Vital Signs: Reviewed. HEENT: Unremarkable. Lungs: Clear to auscultation except some rales noted in lower lung kirk. Not using accessory musc les of respiration. Heart: Sounds normal. Abdomen: Soft. Bowel sounds normal. No guarding, rigidity, tenderness, or distention. Extremities: No leg edema. Laboratory Data: White count 5.5, hemoglobin 8.9, platelets 216. Sodium 135, potassium 4.8, chlorid e 99, bicarb 26, BUN 33, creatinine 5.50, glucose 115. BNP more than 35,000 which is better than yes terday. Impression: 1.Volume overload secondary to end-stage renal disease. 2.End-stage renal disease, on hemodialysis. 3.Nausea with vomiting secondary to volume overload. 4.Hypertension. 5.Diabetes with kidney disease. 6.Anemia due to chronic kidney disease. 7.Hyperlipidemia. 8.Coronary artery disease. 9.Chronic gastritis. 10.Lumbar spondylosis. Plan: We will go ahead and continue current medications. The patient's blood pressure is under bett er control today than yesterday and Cardiology consultation is appreciated. We will continue to foll ow up with petroleum engineering teacher for dialysis needs and once his volume overload situation gets resolved with dialysis, then we will plan to discharge him to go home. Details and plan of treatment discussed with the patient and I have asked nurse to contact petroleum engineering teacher to see if they can dialyze him today. ERNESTO/MODL Voice ID: [id number] Report ID: [id number]
[2018-04-29] MEDS ORDERED: HOME MED 1 EA UNK (Ranolazine [Ranexa] 1,000 MG) PO SCH (09:00)
[2018-04-29] MEDS ORDERED: HOME MED 1 EA UNK (Aspirin [Aspirin Ec 325 Mg] 325 MG) PO SCH (09:00)
[2018-04-29] MEDS: AMLODIPINE 10 MG TAB PO SCH (09:13)
[2018-04-29] MEDS: HYDRALAZINE HCL 25 MG TABLET PO SCH ×2 (09:13→21:00)
[2018-04-29] MEDS: DOCUSATE NA/SENNA CONC 1 TAB PO SCH ×2 (09:14→21:00)
[2018-04-29] MEDS: ATORVASTATIN 80 MG TAB PO SCH (09:14)
[2018-04-29] MEDS: SEVELAMER CARBONATE 800 MG TABLET PO SCH ×3 (09:14→17:00)
[2018-04-29] MEDS: cloNIDine HCl 0.1 MG TAB PO SCH ×3 (09:15→21:00)
[2018-04-29] MEDS: SERTRALINE HCL 50 MG TAB PO SCH (09:15)
[2018-04-29] MEDS: CLOPIDOGREL 75 MG TABLET PO SCH (09:15)
[2018-04-29] MEDS: METOPROLOL TAR 50 MG TAB PO SCH ×2 (09:16→21:00)
[2018-04-29] MEDS: FUROSEMIDE 20 MG/ 2ML VIAL IV SCH ×2 (09:17→17:05)
[2018-04-29] MEDS: HEPARIN 5000 UNIT/ML 1 ML VIAL SQ SCH ×2 (09:17→21:00)
[2018-04-29] MEDS: PANTOPRAZOLE 40 MG INJ IVP SCH (09:17)
[2018-04-29] MEDS: ASPIRIN EC 325 MG TABLET PO SCH (09:17)
--- NOTE | 2018-04-29 10:13 | RAD REPORT ---
EXAM DESCRIPTION: RAD - Chest Single View - 04/29/2018 6:31 am CLINICAL HISTORY: Chest Pain Chest pain. COMPARISON: Chest Single View dated 04/28/2018; Chest Single View dated 01/25/2018; Chest Single View dated 06/08/2017; Chest Single View dated 06/06/2017 FINDINGS: Portable technique limits examination quality. Mild interstitial pulmonary edema is seen. Small right pleural effusion persists. The heart is mildly prominent size with venous catheter in place, unchanged. No displaced fractures.
--- NOTE | 2018-04-29 13:18 | PN ---
Mr. Bah seems to feel a lot better today. His hemoglobin is down slightly. His troponins remain i n the mildly elevated range. Very elevated B-natriuretic peptide. It is probably not a useful test for us to get with him in renal failure. Creatinine is 5.5. I think we will continue with the prese nt medicine. I am not sure why he was nauseated yesterday. I am strongly suspicious that it is medi cations. I believe we could probably cut down on the dose of Ranexa if needed, but I will not recomm end any medicine change for now. DANA/NESSA Voice ID: [id number] Report ID: [id number]
[2018-04-29] MEDS ORDERED: ALBUMIN HUMAN 25% 50 ML IV SCH (15:00)
[2018-04-29] MEDS: FAMOTIDINE 20 MG TAB PO SCH (21:00)
[2018-04-29] MEDS: HOME MED 1 EA UNK (Travoprost (Benzalkonium) [Travatan 0.004% Eye Drop] 1 DROP) EACH EYE SCH (21:00)
[2018-04-30] MEDS: GUAIFENESIN/DM 5 ML UCUP PO PRN (00:36)
--- NOTE | 2018-04-30 01:04 | PN ---
Date of Progress Note: 04/29/2018 Chief Complaint: End-stage renal disease, diabetes mellitus. History Of Present Illness: The patient is dialysis dependent. He came to the hospital was complain ing of shortness of breath. He underwent dialysis yesterday. Today dialysis was scheduled. The pat ient was found to have elevated BNP, dialysis was initiated for volume control, although the patient was taken off dialysis due to hypertension. After dialysis, the patient remained hemodynamically sta ble. Review of Systems: Denies PND, orthopnea. Physical Examination: Lungs: Clear to auscultation bilaterally. Heart: S1, S2. Abdomen: Soft, benign. Extremities: No edema. Chest x-ray showed mild interstitial pulmonary edema, small right pleural effusion. Impression And Plan: 1.End-stage renal disease. Continue p.o. fluid restriction and low-sodium diet. Next dialysis will be scheduled on Tuesday. 2.Congestive heart failure, interstitial pulmonary edema. Cardiology consultation was obtained. 3.Renal osteodystrophy. Continue renal diet and binders. 4.Hypertension. Hold blood pressure medication if systolic blood pressure is below 110. EB/MODL Voice ID: [id number] Report ID: [id number]
[2018-04-30] MEDS: MORPHINE 4 MG/ML SYR IV PRN ×2 (04:59→10:10)
[2018-04-30] MEDS: PROMETHAZINE 25 MG/ML VIAL IV PRN (04:59)
[2018-04-30 06:39] VITALS: BMI 26.5
[2018-04-30] MEDS: INSULIN -REGULAR HUMAN 50 UNIT/0.5 ML ML SQ SCH ×2 (07:30→11:30)
[2018-04-30] MEDS: SEVELAMER CARBONATE 800 MG TABLET PO SCH ×2 (08:30→12:00)
[2018-04-30] MEDS: CLOPIDOGREL 75 MG TABLET PO SCH (08:31)
[2018-04-30] MEDS: METOPROLOL TAR 50 MG TAB PO SCH (08:31)
[2018-04-30] MEDS: HYDRALAZINE HCL 25 MG TABLET PO SCH (08:31)
[2018-04-30] MEDS: DOCUSATE NA/SENNA CONC 1 TAB PO SCH (08:32)
[2018-04-30] MEDS: cloNIDine HCl 0.1 MG TAB PO SCH (08:32)
[2018-04-30] MEDS: ASPIRIN EC 325 MG TABLET PO SCH (08:32)
[2018-04-30] MEDS: SERTRALINE HCL 50 MG TAB PO SCH (08:32)
[2018-04-30] MEDS: FUROSEMIDE 20 MG/ 2ML VIAL IV SCH (08:33)
[2018-04-30] MEDS: AMLODIPINE 10 MG TAB PO SCH (08:33)
[2018-04-30] MEDS: ATORVASTATIN 80 MG TAB PO SCH (08:33)
[2018-04-30] MEDS: PANTOPRAZOLE 40 MG INJ IVP SCH (08:34)
[2018-04-30] MEDS: HEPARIN 5000 UNIT/ML 1 ML VIAL SQ SCH (08:34)
[2018-04-30 09:10] VITALS: O2SAT 95
[2018-04-30 12:29] VITALS: BP 131/69; TEMP 97.9
--- NOTE | 2018-04-30 22:58 | PN ---
Date of Progress Note: 04/30/2018 Chief Complaint: End-stage renal disease, diabetes mellitus. History Of Present Illness: The patient is dialysis dependent. He received dialysis yesterday. Pro cedure was terminated early because of borderline hypotension. Medication dose was adjusted. Blood pressure today is within acceptable ranges. The patient is hemodynamically stable. There is no evid ence of orthostatic hypotension. Review of Systems: Denies fever, chills. Denies nausea, vomiting. Physical Examination: Lungs: Clear to auscultation bilaterally. Heart: S1, S2. No pericardial friction rub. Abdomen: Soft, benign, nontender. Impression And Plan: 1.End-stage renal disease. The patient will continue p.o. fluid restriction. Next dialysis is sche duled for tomorrow. 2.Congestive heart failure, interstitial pulmonary edema. The patient had ultrafiltration done with dialysis. Continue p.o. fluid restriction and schedule next dialysis tomorrow. 3.Hypotension, resolved. The patient will continue blood pressure medication. Dose was adjusted. 4.Renal osteodystrophy. Continue renal diet and binders. EB/MODL Voice ID: [id number] Report ID: [id number]
--- NOTE | 2018-04-30 23:28 | DS ---
Date of Discharge: 04/30/2018 Disposition: Discharged to go home. Physical Examination: HEENT: Unremarkable. Lungs: Minimum basal rales noted, unchanged from yesterday. Not in any respiratory distress. Heart: Sounds normal. Abdomen: Soft, bowel sounds normal. No guarding, rigidity, tenderness, or distention. Extremities: No leg edema. Laboratory Data: Last white count yesterday 5.5, hemoglobin 8.9, platelets 216. Sodium 135, potassi um 4.8, chloride 99, bicarb 26, BUN 33, creatinine 5.5, glucose 115. Discharge Medications/instructions: 1.Continue prior home medication. 2.Go for dialysis tomorrow. 3.Follow up at my office per scheduled appointment. Hospital Course: A 53-year-old male patient admitted to hospital with nausea, vomiting, and cough. Please see dictated H and P for more information. After patient was evaluated in the ER, he was admi tted to hospital. Cardiology consultation was obtained as patient had slightly elevated troponin lev el which first troponin was 0.05, second one was 0.06. Echocardiogram showed apical hypokinesis with ejection fraction 60%, severe pulmonary hypertension, small pericardial effusion, left ventricular h ypertrophy, mild mitral regurgitation, and moderate tricuspid regurgitation. Chest x-ray had shown s ubsegmental atelectasis and small pleural effusion in the right lung. Nephrology consultation was ob tained. The patient did receive dialysis during this hospitalization. Cardiology did not recommend any further intervention. Overall, his condition has stabilized. He is tolerating diet very well. He has not had any nausea, vomiting in last 24 hours, and we will go ahead and plan to discharge him to go home. Instructional Technology Teacher is planning to do dialysis tomorrow and he goes for dialysis around 5:30 a. m., and he was encouraged to keep his appointment for tomorrow for outpatient dialysis. The patient will be discharged to go home today if okay with senior partner and corporate general manager. Final Diagnoses: 1.Volume overload, secondary to end-stage renal disease. 2.Nausea with vomiting secondary to above. 3.End-stage renal disease, on hemodialysis. 4.Hypertension. 5.Diabetes mellitus with kidney disease. 6.Anemia due to chronic kidney disease. 7.Hyperlipidemia. 8.Coronary artery disease. 9.Chronic gastritis. 10.Lumbar spondylosis. ERNESTO/MODL Voice ID: [id number] Report ID: [id number]
[2018-05-03 20:01] LABS: HBsAG Nonreactive (Nonreactive)
== END 2018-04-30 13:21 | disposition home or self-care (01) | DRG 291 ==
LOC: ER 03:30 → ERHOLD 05:02 → 4TH 12:20
PROVIDERS: ADMIT Internal Medicine; ATTEND Internal Medicine
PROC: 5A1D70Z Performance of Urinary Filtration, Intermittent, Less than 6 Hours Per Day (ICD-10-PCS; principal; 2018-04-28)
PROC: 5A1D70Z Performance of Urinary Filtration, Intermittent, Less than 6 Hours Per Day (ICD-10-PCS; 2018-04-28)
DX: I13.2 Hypertensive heart and chronic kidney disease with heart failure and with stage 5 chronic kidney disease, or end stage renal disease (principal); N18.6 End stage renal disease; I50.32 Chronic diastolic (congestive) heart failure; N25.81 Secondary hyperparathyroidism of renal origin; E11.22 Type 2 diabetes mellitus with diabetic chronic kidney disease; I25.10 Atherosclerotic heart disease of native coronary artery without angina pectoris; I73.9 Peripheral vascular disease, unspecified; E78.5 Hyperlipidemia, unspecified; K21.9 Gastro-esophageal reflux disease without esophagitis; M54.9 Dorsalgia, unspecified; R11.2 Nausea with vomiting, unspecified; D63.1 Anemia in chronic kidney disease; M47.896 Other spondylosis, lumbar region; K29.50 Unspecified chronic gastritis without bleeding; Z79.82 Long term (current) use of aspirin; Z88.2 Allergy status to sulfonamides
CPT/HCPCS: 36415; 71045; 80048; 80076; 82962; 83690; 83735; 83880; 84484; 85025; 85610; 86317; 86850; 86900; 86901; 87340; 90935; 93005; 93306; 99285; C9113; J1644; J1940; J2550; J7030; P9047

== ENCOUNTER 2018-06-20 23:35 | Inpatient (IN) | payer BC, OTHER ==
--- OUTSIDE RECORDS SUMMARY | 2018-06-20 23:37 | XMS REPORT | Clinical Summary ---
:1965 Author Organization [facility] Address [address] [place] [address] Care Team Providers Name Role Phone Garo [...] 7 days. Active Problems Problem Noted Date Uncontrolled diabetes mellitus 05/25/2018 Diabetic retinopathy associated with controlled type 2 diabetes mellitus 05/25 End-stage renal disease on hemodialysis 08/25/2017 Gastroparesis 05/30/2017 Pleurisy with effusion 05/11/2017 Pulmonary edema 05/11/2017 Obesity 02/24/2017 Chronic coronary artery disease 02/24/2017 Hyperlipidemia 02/24/2017 Hypertension 02/24/2017 Intractable vomiting with nausea 02/24/2017 [id number] kidney injury 02/24/2017 Diabetes mellitus 02/15/2017 Resolved Problems Problem Noted Date Resolved Date Breakdown of intraperitoneal dialysis catheter, init 08/25/2017 08/25/2017 Abdominal pain 07/17/2017 07/19/2017 Encounters Date Type Specialty Care Team Description 05/25/2018 Anesthesia Event Plastic Surgery Raz Brown 05/25/2018 Surgery Plastic Surgery Daquan Mary AND ARIS Arrington MD INDICATED PROCEDURES, RIGHT EYE 05/25/2018 Hospital Encounter Plastic Surgery Daquan Mary MD 09/15/2017 Office Visit General Surgery Oppermann, Surgery follow-up Abdiel Davis MD (Primary Dx) 08/25/2017 Surgery General Surgery Opelle, OPEN PERITONEAL Abdiel Davis MD DIALYSIS CATHETER REMOVAL 08/25/2017 Anesthesia Event General Surgery Jason Eugene, SOFTWARE ASSET MANAGEMENT ANALYST 08/25/2017 Hospital Encounter General Surgery Abdiel Ivory MD 08/23/2017 Pre-Admit Testing Pre-Admission Oppermann, Preop testing Appointment Testing Abdiel Davis MD (Primary Dx) 07/17/2017 - Emergency General Internal Kevin Chavez Abdominal pain, unspecified abdominal location (Primary Dx); 07/19/2017 Robert Ortiz MD End stage renal disease; Aroldo, Mustangelina Peritoneal dialysis catheter in place MD Frank after 06/19/2017 Immunizations Name Dates Previously Given Next Due [...] Vital Sign Reading Time Taken Blood Pressure 136/61 05/25/2018 2:05 PM [employer] Pulse 58 05/25/2018 2:05 PM [employer] Temperature 37.2 C (98.9 F) 05/25/2018 2:05 PM [employer] Respiratory Rate 12 05/25/2018 2:05 PM [employer] Oxygen Saturation 96% 05/25/2018 2:05 PM [employer] Inhaled Oxygen Concentration - - Weight 97.2 kg (214 lb 3 oz) 05/25/2018 11:43 AM [employer] Height 190.5 cm (6' 3") 05/25/2018 11:43 AM [employer] Body Mass Index 26.77 05/25/2018 11:43 AM [employer] Plan of Treatment Health Maintenance Due Date Last Done Comments DIABETIC RETINAL EYE EXAM 1965 DIABETIC FOOT EXAM 1974 COLON CANCER SCREENING 2014 SHINGLES VACCINES (1 of 2) 2014 INFLUENZA VACCINE 01/11/2018 02/11/2017 Procedures Procedure Name Priority Date/Time Associated Diagnosis Comments VITRECTOMY 05/25/2018 1:00 PM [employer] Vitreous hemorrhage of right eye (HCC) Special Needs REQ 1300 START POC PANEL 4 Routine 05/25/2018 12:09 PM [employer] POC GLUCOSE Routine 08/25/2017 8:40 AM CDT DC AN ELECTIVE ENDOTRACHEAL Routine 08/25/2017 8:09 AM CDT AIRWAY Procedure Note - Federico Baer V., PATTERNATOR - 08/25/2017 8:09 AM CDT Airway Date/Time: 08/25/2017 7:40 AM Performed by: FEDERICO BAER V. Authorized by: TONYA CASTRO Location: OR [...] Routine 07/19/2017 7:48 AM Results for this [employer] procedure are in the results section. POC GLUCOSE Routine 07/18/2017 8:52 PM Results for this [employer] procedure are in the results section. NM GASTRIC EMPTYING Routine 07/18/2017 5:06 PM Results for this [employer] procedure are in the results section. POC GLUCOSE Routine 07/18/2017 4:15 PM Results for this [employer] procedure are in the results section. CELL COUNT AND Routine 07/18/2017 10:00 AM Results for this DIFFERENTIAL, BODY FLUID [employer] procedure are in the results section. FUNGUS SMEAR Routine 07/18/2017 10:00 AM Results for this [employer] procedure are in the results section. GRAM STAIN Routine 07/18/2017 10:00 AM Results for this [employer] procedure are in the results section. FUNGUS CULTURE Routine 07/18/2017 10:00 AM Results for this [employer] procedure are in the results section. ANAEROBIC CULTURE Routine 07/18/2017 10:00 AM Results for this [employer] procedure are in the results section. AEROBIC CULTURE Routine 07/18/2017 10:00 AM Results for this [employer] procedure are in the results section. CT ABDOMEN PELVIS WO Routine 07/18/2017 9:02 AM Results for this CONTRAST [employer] procedure are in the results section. LACTIC ACID LEVEL, Timed 07/18/2017 4:11 AM Results for this SEPSIS - NOW AND REPEAT [employer] procedure are in 2X EVERY 3 HOURS the results section. LACTIC ACID LEVEL, Timed 07/17/2017 8:30 PM Results for this SEPSIS - NOW AND REPEAT [employer] procedure are in 2X EVERY 3 HOURS the results section. ZZESTIMATED GFR STAT 07/17/2017 4:55 PM Results for this [employer] procedure are in the results section. LIPASE LEVEL STAT 07/17/2017 4:55 PM Results for this [employer] procedure are in the results section. COMPREHENSIVE METABOLIC STAT 07/17/2017 4:55 PM Results for this PANEL [employer] procedure are in the results section. LACTIC ACID LEVEL, STAT 07/17/2017 4:55 PM Results for this SEPSIS - NOW AND REPEAT [employer] procedure are in 2X EVERY 3 HOURS the results section. HC COMPLETE BLD COUNT STAT 07/17/2017 4:55 PM Results for this W/AUTO DIFF [employer] procedure are in the results section. BLOOD CULTURE, AEROBIC & Routine 07/17/2017 4:55 PM Results for this ANAEROBIC [employer] procedure are in the results section. BLOOD CULTURE, AEROBIC & Routine 07/17/2017 4:50 PM Results for this ANAEROBIC [employer] procedure are in the results section. after 06/19/2017 Results POC panel 4 (05/25/2018 12:09 PM [employer])Only the most recent of2 resultswithin the time period is included. POC sodium 137 135 - 148 mmol/L [facility] POC potassium 4.3 3.5 - 5.0 mmol/L [facility] POC hematocrit 34 (L) 41 - 51 % [facility] Comment: Meter ID: [id number] Cooking Instructor: Abisai Girard POC glucose 107 (H) 65 - 99 mg/dL [facility] Performing Organization Address City/State/Zipcode Phone Number [facility] DEPARTMENT OF PATHOLOGY AND [address] [place] [phone] [facility]IC MEDICINE [address] [address] POC glucose (08/25/2017 8:40 AM CDT)Only the most recent of4 resultswithin the time period is included. POC glucose 152 (H) 65 - 99 mg/dL [facility] DEPARTMENT OF PATHOLOGY AND Comment: GENOMIC MEDICINE RN Notified Meter ID: [id number] Cooking Instructor: Boogie Blackburn Performing Organization Address City/State/Zipcode Phone Number [facility] DEPARTMENT OF PATHOLOGY [id number] [place] [id number] AND GENOMIC MEDICINE Estimated GFR (08/25/2017 6:47 AM CDT)Only the most recent of2 resultswithin the time period is included. GFR Non Af Amer 18 (A) mL/min/1.73 m2 [facility] DEPARTMENT OF PATHOLOGY AND GENOMIC MEDICINE GFR Af Amer 22 (A) mL/min/1.73 m2 [facility] DEPARTMENT OF Comment: PATHOLOGY AND GENOMIC Chronic [...] Americans. Specimen Plasma specimen Performing Organization Address City/[facility] Phone Number [facility] DEPARTMENT OF PATHOLOGY [address] [place] [address] Basic metabolic panel (08/25/2017 6:47 AM CDT) Sodium 138 135 - 148 mEq/L [facility] DEPARTMENT OF PATHOLOGY AND GENOMIC [facility] Potassium 3.9 3.5 - 5.0 mEq/L [facility] DEPARTMENT OF PATHOLOGY AND GENOMIC MEDICINE Chloride 100 98 - 112 mEq/L [facility] DEPARTMENT OF PATHOLOGY AND GENOMIC MEDICINE CO2 26 24 - 31 mEq/L [facility] DEPARTMENT OF PATHOLOGY AND GENOMIC MEDICINE Anion gap 12 7 - 15 mEq/L [facility] DEPARTMENT OF Comment: PATHOLOGY AND GENOMIC Starting from September , anion gap calculation MEDICINE no longer incorporates potassium. Please note the change. BUN 29 (H) 6 - 20 mg/dL [facility] DEPARTMENT OF PATHOLOGY AND GENOMIC MEDICINE Creatinine 3.6 (H) 0.7 - 1.2 mg/dL [facility] DEPARTMENT OF PATHOLOGY AND GENOMIC [facility] Glucose 159 (H) 65 - 99 mg/dL [facility] DEPARTMENT OF PATHOLOGY AND GENOMIC MEDICINE Calcium 9.2 8.3 - 10.2 mg/dL [facility] DEPARTMENT OF PATHOLOGY AND GENOMIC [facility] Specimen Plasma specimen Performing Organization Address [facility] Phone Number [facility] PATHOLOGY [address] [place] [address] CBC with platelet and differential (08/23/2017 12:26 PM CDT)Only the most recent of2 resultswithin the time period is included. WBC 6.9 4.5 - 11.0 k/uL [facility] DEPARTMENT OF PATHOLOGY AND GENOMIC MEDICINE RBC 3.16 (L) 4.40 - 6.00 m/uL [facility] DEPARTMENT OF PATHOLOGY AND GENOMIC MEDICINE HGB 8.6 (L) 14.0 - 18.0 g/dL [facility] DEPARTMENT OF PATHOLOGY AND GENOMIC MEDICINE HCT 27.4 (L) 41.0 - 51.0 % [facility] DEPARTMENT OF PATHOLOGY AND GENOMIC MEDICINE MCV 86.7 82.0 - 100.0 fL [facility] DEPARTMENT OF PATHOLOGY AND GENOMIC MEDICINE MCH 27.2 27.0 - 34.0 pg [facility] DEPARTMENT OF PATHOLOGY AND GENOMIC MEDICINE MCHC 31.4 31.0 - 37.0 g/dL [facility] DEPARTMENT OF PATHOLOGY AND GENOMIC MEDICINE RDW - SD 52.3 37.0 - 55.0 fL [facility] DEPARTMENT OF PATHOLOGY AND GENOMIC MEDICINE MPV 9.1 6.9 - 11.0 fL [facility] DEPARTMENT OF PATHOLOGY AND GENOMIC MEDICINE Platelet count 273 150 - 400 K/uL [facility] DEPARTMENT OF PATHOLOGY AND GENOMIC MEDICINE Nucleated RBC 0.00 /100 WBC [facility] DEPARTMENT OF PATHOLOGY AND GENOMIC MEDICINE Neutrophils 63.7 39.0 - 69.0 % [facility] DEPARTMENT OF PATHOLOGY AND GENOMIC MEDICINE Lymphocytes 18.6 (L) 25.0 - 45.0 % [facility] DEPARTMENT OF PATHOLOGY AND GENOMIC MEDICINE Monocytes 12.3 (H) 0.0 - 10.0 % [facility] DEPARTMENT OF PATHOLOGY AND GENOMIC MEDICINE Eosinophils 4.0 0.0 - 5.0 % [facility] DEPARTMENT OF PATHOLOGY AND GENOMIC MEDICINE Basophils 0.7 0.0 - 1.0 % [facility] DEPARTMENT OF PATHOLOGY AND GENOMIC MEDICINE Immature granulocytes 0.7 0.0 - 1.0 % [facility] DEPARTMENT OF PATHOLOGY AND GENOMIC MEDICINE Specimen Blood Performing Organization Address City/[facility]/Zipcode Phone Number [facility] DEPARTMENT OF PATHOLOGY [address] [place] [address] AND [employer] MEDICINE ECG Pre/Post Op (08/23/2017 11:23 AM CDT) Ventricular rate 54 [facility] Atrial rate 54 [facility] DC interval 176 [facility] QRSD interval 88 [facility] QT interval 492 [facility] QTC interval 466 [facility] P axis 1 5 [facility] QRS axis 1 10 [facility] T wave axis 140 [facility] EKG impression Sinus bradycardia-T wave abnormality, [facility] MUSE consider lateral ischemia-Prolonged QT-Abnormal ECG-No previous ECGs available- Performing Organization Address City/[facility]/Zipcode Phone Number [facility] MUSE [address] [place] [address] NM Gastric Emptying (07/18/2017 5:06 PM [employer]) Narrative Performed At Procedure:NM GASTRIC EMPTYING [facility] Clinical History:ABDOMINAL PAIN Technique 0.8 millicuries of [id number] colloid were mixed with an egg and cooked. The egg was fed to the patient and dynamic imaging of the abdomen in the anterior and posterior projections was performed for 90 minutes. Quantification of gastric emptying was performed using the geometric mean of the anterior and posterior projections. FINDINGS: Gastric emptying half time=53 minutes (normal is <100 minutes). IMPRESSION: Normal gastric emptying. [id number] Procedure Note Interface, Radiology Results Incoming - 07/18/2017 5:20 PM [employer] Procedure: NM GASTRIC EMPTYING Clinical History: ABDOMINAL PAIN Technique 0.8 millicuries of [id number] colloid were mixed with an egg and cooked. The egg was fed to the patient and dynamic imaging of the abdomen in the anterior and posterior projections was performed for 90 minutes. Quantification of gastric emptying was performed using the geometric mean of the anterior and posterior projections. FINDINGS: Gastric emptying half time=53 minutes (normal is <100 minutes). IMPRESSION: Normal gastric emptying. [id number] Performing Organization Address City/[facility] Phone Number [facility] [address] [place] [address] Fungus smear (07/18/2017 10:00 AM [employer]) Fungus smear No fungi observed. [facility] DEPARTMENT OF PATHOLOGY Comment: AND GENOMIC MEDICINE Specimen Information Specimen Source: Peritoneal fluid Specimen Site: Peritoneal Specimen Peritoneal fluid - Peritoneal Performing Organization Address [facility] Phone Number [facility] DEPARTMENT OF PATHOLOGY AND [address] [place] [id number] GENOMIC MEDICINE Aerobic culture (07/18/2017 10:00 AM [employer]) Aerobic culture isolate No growth after 3 days. [facility] DEPARTMENT OF Comment: PATHOLOGY AND GENOMIC Specimen Information MEDICINE Specimen Source: Peritoneal fluid Specimen Site: Peritoneal Specimen Peritoneal fluid - Peritoneal Performing Organization Address City/[facility]/Zipcode Phone Number [facility] DEPARTMENT OF PATHOLOGY AND [address] [place] [address] GENOMIC MEDICINE Gram stain (07/18/2017 10:00 AM [employer]) Gram stain isolate Rare WBC's [facility] DEPARTMENT OF PATHOLOGY No organisms seen AND GENOMIC MEDICINE Comment: Specimen Information Specimen Source: Peritoneal fluid Specimen Site: Peritoneal Specimen Peritoneal fluid - Peritoneal Performing Organization Address City/[facility] Phone Number [facility] DEPARTMENT OF PATHOLOGY AND [address] [place] [address] [facility] Fungus culture (07/18/2017 10:00 AM [employer]) Fungus culture isolate No growth after 4 weeks of incubation. [facility] DEPARTMENT OF Comment: PATHOLOGY AND GENOMIC Specimen Information MEDICINE Specimen Source: Peritoneal fluid Specimen Site: Peritoneal Specimen Peritoneal fluid - Peritoneal Performing Organization Address City/[facility] Phone Number [facility] DEPARTMENT OF PATHOLOGY AND [address] [place] [address] [facility] Anaerobic culture (07/18/2017 10:00 AM [employer]) Anaerobic culture No anaerobic organisms isolated. [facility] DEPARTMENT OF isolate Comment: PATHOLOGY AND GENOMIC Specimen Information MEDICINE Specimen Source: Peritoneal fluid Specimen Site: Peritoneal Specimen Peritoneal fluid - Peritoneal Performing Organization Address [facility] Phone Number [facility] DEPARTMENT OF PATHOLOGY AND [address] [place] [phone] [place] [address] Cell count and differential, body fluid (07/18/2017 10:00 AM [employer]) [facility] fluid type PD fluid [facility] DEPARTMENT OF PATHOLOGY AND GENOMIC MEDICINE Color, fluid Colorless [facility] DEPARTMENT OF PATHOLOGY AND GENOMIC MEDICINE Appearance, fluid Clear [facility] DEPARTMENT OF PATHOLOGY AND GENOMIC MEDICINE RBC, fluid SEE COMMENTComment: 1+ (0 - /CMM [facility] DEPARTMENT 500 RBC/CMM) PATHOLOGY AND GENOMIC MEDICINE Nucleated cells, fluid 29 /CMM [facility] DEPARTMENT OF PATHOLOGY AND GENOMIC MEDICINE Fluid mononuclear cell SEE COMMENT [facility] DEPARTMENT OF Comment: PATHOLOGY AND GENOMIC Footnote--------- MEDICINE Unable to perform differential due to very low count. Specimen Fluid Performing Organization Address [facility] Phone Number [facility] DEPARTMENT OF PATHOLOGY [address] [place] [address] AND [facility] CT Abdomen Pelvis Wo Contrast (07/18/2017 9:02 AM [employer]) Narrative Performed At EXAMINATION:CT ABDOMEN PELVIS WO CONTRAST [facility] CLINICAL HISTORY:ABDOMINAL PAIN TECHNIQUE: Multiple axial [...] renal calyceal stones are present without hydronephrosis. [id number] Procedure Note Interface, Radiology Results Incoming - 07/18/2017 9:14 AM [employer] EXAMINATION: CT ABDOMEN PELVIS WO CONTRAST CLINICAL [...] renal calyceal stones are present without hydronephrosis. [id number] Performing Organization Address City/State/Zipcode Phone Number [facility] [address] [place] [address] Lactic acid level, SEPSIS - Now and repeat 2x every 3 hours (07/18/2017 4:11 AM [employer])Only the most recent of3 resultswithin the time period is included. Lactic acid 0.6 0.5 - 2.2 mmol/L [facility] DEPARTMENT OF PATHOLOGY AND GENOMIC MEDICINE Specimen Plasma specimen Performing Organization Address City/[facility] Phone Number [facility] DEPARTMENT OF PATHOLOGY [id number] [place] [address] AND [facility] Blood culture, aerobic & anaerobic (07/17/2017 4:55 PM [employer])Only the most recent of2 resultswithin the time period is included. Blood culture isolate No growth after 5 days of incubation. [facility] DEPARTMENT OF Comment: PATHOLOGY AND GENOMIC Specimen Information MEDICINE Specimen Source: Blood Specimen Site: Hand, right Specimen Blood - Hand, right Performing Organization Address City/State/Zipcode Phone Number [facility] DEPARTMENT OF PATHOLOGY AND [address] [place] [phone] [place] [address] Lipase level (07/17/2017 4:55 PM [employer]) Lipase 48 13 - 60 U/L [facility] DEPARTMENT OF PATHOLOGY AND GENOMIC MEDICINE Specimen Plasma specimen Performing Organization Address City/[facility] Phone Number [facility] DEPARTMENT OF PATHOLOGY [id number] [place] [address] AND [facility] Comprehensive metabolic panel (07/17/2017 4:55 PM [employer]) Sodium 134 (L) 135 - 148 mEq/L [facility] DEPARTMENT OF PATHOLOGY AND GENOMIC MEDICINE Potassium 4.6 3.5 - 5.0 mEq/L [facility] DEPARTMENT OF PATHOLOGY AND GENOMIC MEDICINE Chloride 96 (L) 98 - 112 mEq/L [facility] DEPARTMENT OF PATHOLOGY AND GENOMIC MEDICINE CO2 25 24 - 31 mEq/L [facility] DEPARTMENT OF PATHOLOGY AND GENOMIC MEDICINE Anion gap 13 7 - 15 mEq/L [facility] DEPARTMENT OF Comment: PATHOLOGY AND GENOMIC Starting from September , anion gap calculation MEDICINE no longer incorporates potassium. Please note the change. BUN 22 (H) 6 - 20 mg/dL [facility] DEPARTMENT OF PATHOLOGY AND GENOMIC MEDICINE Creatinine 3.8 (H) 0.7 - 1.2 mg/dL [facility] DEPARTMENT OF PATHOLOGY AND GENOMIC MEDICINE Glucose 138 (H) 65 - 99 mg/dL [facility] DEPARTMENT OF PATHOLOGY AND GENOMIC MEDICINE Calcium 8.7 8.3 - 10.2 mg/dL [facility] DEPARTMENT OF PATHOLOGY AND GENOMIC MEDICINE Protein 6.8 6.3 - 8.3 g/dL [facility] DEPARTMENT OF PATHOLOGY AND GENOMIC MEDICINE Albumin 2.8 (L) 3.5 - 5.0 g/dL [facility] DEPARTMENT OF PATHOLOGY AND GENOMIC MEDICINE A/G ratio 0.7 0.7 - 3.8 [facility] DEPARTMENT OF PATHOLOGY AND GENOMIC MEDICINE Alkaline phosphatase 69 40 - 129 U/L [facility] DEPARTMENT OF PATHOLOGY AND GENOMIC MEDICINE AST 20 10 - 50 U/L [facility] DEPARTMENT OF PATHOLOGY AND GENOMIC MEDICINE ALT 6 5 - 50 U/L [facility] DEPARTMENT OF PATHOLOGY AND GENOMIC MEDICINE Total bilirubin <0.2 0.2 - 1.2 mg/dL [facility] DEPARTMENT OF PATHOLOGY AND GENOMIC MEDICINE Specimen Plasma specimen Performing Organization Address City/State/Zipcode Phone Number [facility] DEPARTMENT OF PATHOLOGY [address] [place] [address] AND [employer] MEDICINE after 06/19/2017 Insurance Payer Benefit Plan / Group Subscriber ID Type Phone Address [facility] AVNI RANGEL LEEDS xxxxxxxxxxxx PPO MEDICARE MEDICARE PART A AND B xxxxxxxxxx Medicare [place], [place] Advance Directives Patient has advance care planning documents on file. For more information, please contact:Naren [id number] [place] [address]
--- OUTSIDE RECORDS SUMMARY | 2018-06-20 23:37 | XMS REPORT | Clinical Summary ---
:1965 Author Organization [facility] Address [address] [place] [address] Care Team Providers Name Role Phone Bala [...] 0.4 mg 0 Active (NITROSTAT) 0.4 MG SL under the tongue tablet daily as needed for Chest pain Put [...] for Nausea. ranolazine (RANEXA) Take 1,000 mg by 0 Active 500 MG 12 hr tablet mouth 2 (two) times daily. furosemide (LASIX) 80 Take 80 mg by 0 Active MG tablet mouth 2 (two) times daily. metoclopramide Take 5 mg by 0 Active (REGLAN) 5 MG tablet mouth 3 (three) times daily. ondansetron (ZOFRAN) Take 4 mg by 0 Active 4 MG tablet mouth every 6 (six) hours as needed for Nausea. zolpidem (AMBIEN) 5 Take 5 mg by 0 Active MG tablet mouth every night as needed for Insomnia. lisinopril Take 1 tablet (20 30 tablet 0 06/16/2017 07/16/2017 (PRINIVIL,ZESTRIL) 20 mg total) by MG tablet mouth daily for 30 days. Active Problems Problem Noted Date Renal failure 06/08/2017 Encounters Date Type Specialty Care Team Description 07/15/2017 Telephone Transplant Rosanne Staton 07/14/2017 Telephone Transplant Merlin Harley RN Follow-up 07/14/2017 Abstract Transplant Giovanni Anguiano after 06/19/2017 Social History Tobacco Use Types Packs/Day Years Used Date Never Smoker Smokeless Tobacco: Never Used Sex Assigned at Date Recorded Not on file Job Start Date Occupation Industry Not on file Not on file Not on file Travel History Travel Start Travel End No recent travel history available. Last Filed Vital Signs Not on file Plan of Treatment Not on file Implants Implanted Type Area Structural Metal Worker Device Shelf Model / Identifier Expiration Serial / Lot Date Cath Peritoneal Dyls 57cm 2cuf [id number] - Sn/A Catheter N/A: COVIDIEN: SHAZAI 02/17/2021 [id number] / Implanted: Qty: 1 on 06/14/2017 by Abdiel Ivory MD Dialysis Abdomen L N/A / Can Tender [id number] Procedures Procedure Name Priority Date/Time Associated Diagnosis Comments RHYTHM STRIP - SCAN 07/04/2017 3:42 PM PROCUREMENT OFFICER CARDIAC CATH REPORT - 07/04/2017 11:13 AM PROCUREMENT OFFICER SCAN after 06/19/2017 Results RHYTHM STRIP - SCAN (07/04/2017 3:42 PM PROCUREMENT OFFICER) Narrative Performed At CARDIAC CATH REPORT - SCAN (07/04/2017 11:13 AM PROCUREMENT OFFICER) Narrative Performed At after 06/19/2017 Insurance Payer Benefit Plan / Subscriber ID Type Phone Address Group BLUE CROSS/BLUE WhoWantsMeBS OS xxxxxxxxxxxx PPO [phone] [address] [place] [address] MEDICARE MEDICARE A B xxxxxxxxxx Medicare Advance Directives For more information, please contact:[address] [phone] Code Status Date Activated Date Inactivated Comments Full Code 06/08/2017 11:37 PM 06/15/2017 8:31 PM This code status was determined by: Patient
--- OUTSIDE RECORDS SUMMARY | 2018-06-20 23:38 | XMS REPORT | Continuity of Care Document ---
:1965 Author Organization Interface Problems Problem Status Onset Classification Date Comments Source Date Reported Gastroparesis Active 05/30/20 Finding 06/05/[address] [facility] [place] Intractable Active 05/30/20 Finding 06/05/[address] [facility] vomiting with [facility] nausea [place] Anemia Active 05/11/20 Finding 06/05/[address] [facility] [place] Chronic renal Active 05/11/20 Finding 06/05/[address] [facility] disease [facility] [place] Pulmonary edema Active 05/11/20 Finding 06/05/[address] [facility] [place] GERD Active 05/11/20 Finding 06/05/[address] [facility] [place] Pleurisy with Active 05/11/20 Finding 06/05/[address] [facility] [address] effusion [facility] [place] CAD Active 02/25/20 Finding 06/05/[address] [facility] [place] Hyperlipidemia Active 02/25/20 Finding 06/05/[address] [facility] [place] Intractable Active 02/25/20 Finding 06/05/[address] [facility] [address] nausea and 17 [facility] vomiting [place] [id number] Active 02/25/20 Finding 06/05/[address] [facility] [address] kidney injury [facility] [place] HTN Active 02/25/20 Finding 06/05/[address] [facility] [place] Obesity Active 02/25/20 Finding 06/05/[address] [facility] [place] Diabetes mellitus Active 02/16/20 Finding 06/05/[address] [facility] [place] Chest pain Active 08/28/19 Finding 06/05/[address] [facility] [place] Hyperglycemia Active Finding 06/05/[address] [facility] [facility] [place] Uncontrolled Active Finding 06/05/[address] diabetes mellitus [facility] [place] Renal Active Finding 06/05/[address] [facility] [address] insufficiency [facility] [place] Medications Medication Details Route Status Patient Ordering Order Source Instructions Provider Date Metoclopramide Hcl THREE TIMES A Active [facility] DAY [facility] [place] Ondansetron Hcl Q6H PRN For Active [facility] Vomiting 2017 [facility] [place] Furosemide TWICE DAILY Active Nunez . 2017 [facility] [place] Zolpidem Tartrate AT BEDTIME Active Alroumoh . 2017 [facility] [place] Aspirin DAILY Active St. 2017 [facility] [place] Nitroglycerin DAILY Active St. NEEDED PRN For 2017 [facility] Chest Pain [place] Promethazine Hcl EVERY 6 HOURS Active . NEEDED PRN 2017 [facility] For Nausea [place] Pantoprazole DAILY Active . 2017 [facility] [place] Ranolazine TWICE DAILY Active . 2017 [facility] [place] Insulin Lispro DAILY Active . 2017 [facility] [place] Furosemide TWICE DAILY Active Prezas St. 2017 [facility] [place] Hydralazine TWICE DAILY Active St. 2017 [facility] [place] Furosemide TWICE DAILY AT Active St. 9am & 5pm 2017 [facility] [place] Atorvastatin DAILY Active St. Calcium 2017 [facility] [place] Metoprolol Tartrate TWICE DAILY Active . 2017 [facility] [place] Nitroglycerin Patch DAILY Active St. NEEDED PRN For 2017 [facility] [place] Amlodipine DAILY Active [facility] St[facility] 2017 [facility] [place] Clopidogrel DAILY [facility] Bisulfate 2017 [facility] [place] Furosemide TWICE DAILY Active [facility] 2017 [facility] [place] Hydralazine THREE TIMES A Active Strange [facility] St[facility] DAY 2017 [facility] [place] Pantoprazole Sodium DAILY Active Alexandr [facility] St[facility] 2017 [facility] [place] Metoprolol Tartrate TWICE DAILY Active Alexandr [facility] St[facility] 2017 [facility] [place] Clopidogrel DAILY Active [facility] Bisulfate 2017 [facility] [place] Atorvastatin AT BEDTIME Active [facility] Calcium 2017 [facility] [place] Amlodipine DAILY Active Divinsky [facility] St[facility] 2017 [facility] [place] Clopidogrel DAILY Active [facility] Bisulfate 2017 [facility] [place] Metoprolol Tartrate TWICE DAILY Active [facility] 2017 [facility] [place] Sertraline DAILY Active Divinsky [facility] St[facility] 2017 [facility] [place] Tramadol Hcl EVERY [address] PRN For Pain 2017 [facility] [place] Ranolazine DAILY Active Divinsky [facility] St[facility] 2017 [facility] [place] Sub-Q Insulin DAILY Active St. Device, 40 Unit 2017 [facility] [place] Cefdinir TWICE DAILY Active Cameron [facility] St[facility] 2016 [facility] [place] Methylprednisolone DAILY Active Cameron [facility] St[facility] 2016 [facility] [place] Guaifen W/Codeine TWICE DAILY Active Cameron [facility] St[facility] Syrup PRN For Cough 2016 [facility] [place] Amlodipine Besylate DAILY Active [facility] St[facility] 2016 [facility] [place] Clopidogrel DAILY Active St. Bisulfate 2016 [facility] [place] Fenofibrate DAILY Active [facility] St[facility] 2016 [facility] [place] Insulin Aspart THREE TIMES Active [facility] St. DAILY 2016 [facility] - NEEDED PRN For [place] hyperglycemia Liraglutide DAILY Active [facility] St. 2016 [facility] [place] Ranolazine DAILY Active [facility] St. 2016 [facility] [place] Insulin Detemir AT BEDTIME Active [facility] St. 2016 [facility] [place] Metoprolol Tartrate DAILY Active [facility] St[facility] 2016 [facility] [place] Aspirin Tab DAILY Active Preza [facility] St. 2014 [facility] [place] Metoprolol Tartrate EVERY TWELVE Active Prezas [facility] St. HOURS 2014 [facility] [place] Insulin Detemir AT BEDTIME Active s 02/14/ [facility] St. 2014 [facility] [place] Insulin Detemir AT BEDTIME Active Prezas 02/04/ [facility] St[facility] 2014 [facility] [place] Atorvastatin DAILY Active [facility] St[facility] Calcium 2014 [facility] [place] Insulin Detemir AT BEDTIME Active [facility] St[facility] 2014 [facility] [place] Lisinopril DAILY Active [facility] St. 2014 [facility] [place] Saxagliptin DAILY Active [facility] St. Hcl/Metformin Hcl 2013 [facility] [place] Allergies, Adverse Reactions, Alerts Substance Category Reaction Severity Reaction Status Date Comments Source type Reported Sulfa Hives/Aiden Allergy to Active [facility] (Sulfonamid h Substance 7 [facility] e [place] Antibiotics ) Immunizations Immunization Date Given Site Status Last Comments Source Updated Pneumovax 02/18/2017 completed [facility] [place] Results Order Name Results Value Reference Date Interpretation Comments Source Range Laboratory Sodium Level 138 mEq/L 135 - 145 06/05 [facility] [place] Laboratory Potassium 5.1 mEq/L 3.6 - 5.0 06/05 [facility] St[facility] Studies Level /2016 [facility] [place] Laboratory Phosphorus 7.4 mg/dL 2.5 - 4.3 06/05 [facility] St. Studies /2016 [facility] [place] Laboratory Glucose Level 167 mg/dL 65 - 120 06/05 [facility] . [facility] [place] Laboratory Estimat 10 mL/min 90 06/05 [facility] St[address] Studies /2016 [facility] Filtration [place] Rate Laboratory Creatinine 6.17 mg/dL 0.61 - 06/05 [facility] St. Studies 1. [facility] [place] Laboratory Chloride 104 mEq/L 101 - 111 06/05 [facility] St[address] Studies Level /2016 [facility] [place] Laboratory Carbon 23 mEq/L 21 - 31 06/05 [facility] . Dioxide Level /2016 [facility] [place] Laboratory Calcium Level 9.1 mg/dL 8.5 - 10.5 06/05 [facility] St[facility] Studies [facility] [place] Laboratory Blood Urea 87 mg/dL 6 - 20 06/05 [facility] St[address] Studies Nitrogen /2016 [facility] [place] Laboratory Albumin 3.4 g/dL 3.2 - 5.5 06/05 [facility] St. Studies /2016 [facility] [place] Laboratory Bedside 155 mg/dl 65 - 120 06/03 [facility]. Studies Glucose /2016 [facility] [place] Laboratory Urine Urine 06/01 [facility] Studies Immunoelectro Immunoelect /2016 [facility] - phoresis 24 rophoresis [place] Hr 24 Hr Laboratory Anti-Double 2 IU/mL 06/01 [facility] Studies Strand DNA /2016 [facility] Antibody [place] Laboratory Anti-Proteina null 06/01 [facility] Studies se 3 (c-ANCA) /2016 [facility] [place] Laboratory Anti-Myeloper null 06/01 [facility] Studies oxidase Ab [facility] - (p-ANCA) [place] Laboratory Complement C4 31 mg/dL 06/01 [facility]. Studies [facility] [place] Laboratory Complement C3 127 mg/dL 06/01 [facility]. Studies [facility] [place] Laboratory Thyroid 2.92 uIU/mL 0.34 - 06/01 [facility] Studies Stimulating 5. [facility] Hormone (TSH) [place] Laboratory Anti-Nuclear Anti-Nuclea 05/30 [facility] Studies Antibody r Antibody /2016 [facility] Titer Titer [place] Laboratory Anti-Nuclear Anti-Nuclea 05/30 [facility] Studies Antibody r Antibody /2016 [facility] Pattern Pattern [place] Laboratory Anti-Nuclear Anti-Nuclea 05/30 [facility] Studies Antibody r Antibody /2016 [facility] Screen Screen [place] Laboratory Anti-Nuclear Anti-Nuclea 05/30 [facility] Studies Antibody r Antibody /2016 [facility] Pattern 2 Pattern 2 [place] Laboratory Hepatitis C Hepatitis C 05/30 [facility] Studies Antibody Antibody /2016 [facility] [place] Laboratory Hepatitis C 0.03 ratio 05/30 [facility] Studies Ab [facility] Signal/Cutoff [place] Ratio Laboratory Hepatitis B Hepatitis B 05/30 [facility] Studies Surface Surface /2016 [facility] Antigen Antigen [place] Laboratory Hepatitis B Hepatitis B 05/30 [facility] Studies Surface Ag Surface Ag /2016 [facility] - Confirmation Confirmatio [place] n Laboratory Hepatitis B Hepatitis B 05/30 [facility] Studies Core IgM Core IgM /2016 [facility] Antibody Antibody [place] Laboratory Hepatitis A Hepatitis A 05/[address] Studies IgM Antibody IgM /2016 [facility] Antibody [place] [facility] HIV-1 RNA, HIV-1 RNA, 05/30 [facility] Studies Qualitat Qualitat /2016 [facility] [place] - (TMA) Comment (TMA) [place] Comment Laboratory HIV (1&2) Ag HIV (1&2) 05/30 [facility]. Studies and Ab, 4th Ag and Ab, /2016 [facility] - Generation 4th [place] Generation Laboratory HIV (1&2) Ab HIV (1&2) 05/30 [facility]. Studies Differential Ab /2016 [facility] - Comment Differentia [place] l Comment Laboratory Creatine 162 IU/L 22 - 269 05/30 [facility]. Studies Kinase /2016 [facility] Vitamin B12 173 pg/ml 180 - 914 05/30 [facility]. Studies Level /2016 [facility] Total 0.4 mg/dL 0.3 - 1.2 05/30 [facility]. Studies Bilirubin /[facility] Serum Total 6.5 g/dL 6.0 - 8.3 05/30 [facility]. Studies Protein /2016 [facility] - [place] Laboratory Globulin 3.1 g/dL 2.3 - 3.5 05/30 [facility] [address] Studies /2016 [facility] - [place] Laboratory Ferritin 337.4 ng/ml 23.9 - 05/30 [facility]. Studies 336.2 [facility] - [place] Laboratory Aspartate 12 IU/L 10 - 42 05/30 [facility]. Studies Amino Transf /2016 [facility] - (AST/SGOT) [place] Laboratory Alkaline 54 IU/L 42 - 121 05/30 [facility]. Studies Phosphatase /2016 [facility] - [place] Laboratory Albumin/Globu 1.1 1.1 - 1.8 05/30 [facility]. Studies mateo Ratio /2016 [facility] - [place] Laboratory Alanine 10 IU/L 10 - 60 05/30 [facility]. Studies Aminotransfer /2016 [facility] - ase [place] (ALT/SGPT) Laboratory White Blood 7.9 K/uL 4.3 - 10.9 05/30 [facility]. Studies Count /2016 [facility] - [place] Laboratory Red Cell 15.2 % 12.1 - 05/30 [facility]. Studies Distribution 15.2 /2016 [facility] - Width [place] Laboratory Red Blood 2.75 M/uL 4.33 - 05/[address] Studies Count 5.43 /2016 [facility] [place] Laboratory Platelet 314 K/uL 152 - 406 05/30 [facility] [address] Studies Count /2016 [facility] [place] Laboratory Neutrophils % 56.6 % 41.7 - 05/30 [facility] St[facility] Studies 73.7 /2016 [facility] [place] Laboratory Monocytes % 12.0 % 3.3 - 12.3 05/30 [facility] St[facility] Studies /2016 [facility] [place] Laboratory Mean Platelet 7.1 fL 7.6 - 11.3 05/30 [facility] St[facility] Studies Volume /2016 [facility] [place] Laboratory Mean 85.4 fL 80 - 100 05/30 [facility]. Studies Corpuscular /2016 [facility] Volume [place] Laboratory Mean 34.1 g/dL 32.0 - 05/30 [facility] St[facility] Studies Corpuscular 36.0 /2016 [facility] Hemoglobin [place] Concent Laboratory Mean 29.1 pg 27.0 - 05/30 [facility]. Studies Corpuscular 35.0 /2016 [facility] Hemoglobin [place] Laboratory Lymphocytes % 25.1 % 15.3 - 05/30 [facility] St[facility] Studies 44.8 /2016 [facility] [place] Laboratory Hemoglobin 8.0 g/dL 13.6 - 05/30 [facility] St[facility] Studies 17.9 /2016 [facility] [place] Laboratory Hematocrit 23.5 % 39.6 - 05/30 [facility] St[facility] Studies 49.0 /2017 [facility] [place] Laboratory Eosinophils % 5.7 % 0 - 4.4 05/30 [facility] St[facility] Studies /2016 [facility] [place] Laboratory Basophils % 0.6 % 0 - 1.3 05/30 [facility] St[facility] Studies /2016 [facility] [place] Laboratory Absolute 4.5 K/uL 1.8 - 8.0 05/30 [facility] St[facility] Studies Neutrophil /2016 [facility] [place] Laboratory Absolute 0.9 K/uL 0.1 - 1.3 05/30 [facility]. Studies Monocytes [facility] - (CBC) [place] Laboratory Absolute 2.0 K/uL 0.7 - 4.9 05/30 [facility] [address] Studies Lymphocytes [facility] - (CBC) [place] Laboratory Absolute 0.4 K/uL 0 - 0.5 05/30 [facility] St[facility] Studies Eosinophils [facility] - (CBC) [place] Laboratory Absolute 0.0 K/uL 0 - 0.5 05/30 [facility] St[facility] Studies Basophils /2016 [facility] - (CBC) [place] Laboratory Urine WBC null 05/29 St. Studies /2016 [facility] [place] Laboratory Urine null 05/29 [facility] St[facility] Studies Squamous [facility] Epithelial [place] Cells Laboratory Urine RBC Urine RBC 05/29 St. Studies [facility] [place] Laboratory Urine Culture Urine 05/29 St[facility] Studies Reflexed Culture [facility] - Reflexed [place] Laboratory Urine null 05/29 [facility] St[facility] Studies Bacteria [facility] [place] Laboratory Urine Urine 05/29 [facility]. Studies Amorphous Amorphous [facility] - Sediment Sediment [place] Laboratory Direct null 0 - 0.2 05/29 [facility] St[facility] Studies Bilirubin [facility] [place] Laboratory Amylase Level 70 U/L 28 - 100 05/29 St. Studies [facility] [place] Laboratory Lipase 95 U/L 22 - 51 05/29 [facility] [address] Studies [facility] [place] Laboratory Hemoglobin 7.3 % 4 - 6.0 05/11 [facility] [address] Studies A1c [facility] [place] Laboratory Triglycerides 118 mg/dL 35 - 160 05/11 [facility] [address] Studies Level /2016 [facility] [place] Laboratory Magnesium 2.2 mg/dL 1.8 - 2.5 05/11 [facility] [address] Studies Level /2016 [facility] [place] Laboratory LDL 81 05/11 [facility]. Studies Cholesterol, /2016 [facility] Calculated [place] Laboratory HDL 26 mg/dL 27 - 67 05/11 [facility] [address] Studies Cholesterol [facility] [place] Laboratory Cholesterol/H 5.04 05/11 [facility] [address] Studies DL Ratio /2016 [facility] [place] Laboratory Cholesterol 131 mg/dL 05/11 [facility] [address] Studies Level /2017 [facility] [place] Laboratory Troponin I null 05/11 St. Studies [facility] [place] Laboratory Glomerular null 05/10 [facility]. Studies Basement [facility] - Membrane IgG [place] Ab Laboratory Urine pH 6.0 05/10 [facility] [address] Studies [facility] [place] Laboratory Urine Total Urine Total 05/10 [facility] [address] Studies Protein Protein [facility] [place] Laboratory Urine 1.020 05/10 [facility] [address] Studies Specific /2016 [facility] - Surrency [place] Laboratory Urine Nitrite Urine 05/10 [facility]. Studies Nitrite [facility] [place] Laboratory Urine Urine 05/10 [facility]. Studies Leukocyte Leukocyte [facility] - Esterase Esterase [place] Laboratory Urine Ketones Urine 05/10 [facility] [address] Studies Ketones [facility] [place] Laboratory Urine Glucose Urine 05/10 [facility] [address] Studies Glucose [facility] [place] Laboratory Urine Blood Urine Blood 05/10 [facility] [address] Studies /2016 [facility] [place] Laboratory Creatine 11.3 ng/ml 0.3 - 4.0 05/10 [facility]. Studies Kinase MB [facility] [place] Laboratory B-Type 594 pg/ml 05/10 [facility]. Studies Natriuretic [facility] Peptide [place] Laboratory Rapid null 05/10 [facility] Studies Troponin I [facility] [place] Laboratory Prothrombin 11.3 9.5 - 12.5 05/10 [facility]. Studies Time SECONDS [facility] [place] Laboratory INR 0.96 05/10 [facility]. Studies International /2016 [facility] Normalized [place] Ratio Laboratory Activated 28.5 24.3 - 05/10 [facility] Studies Partial SECONDS 36.9 [facility] - Thromboplast [place] Time Vital Signs Vital Sign Value Date Comments Source Temperature Oral (F) 97.5 F 06/05/2017 [facility] [place] Heart Rate 66 06/05/[address] [facility] [place] Respitory Rate 18 06/05/[address] [facility] [place] Systolic (mm Hg) 131 06/05/[address] [facility] [place] Diastolic (mm Hg) 62 06/05/[address] [facility] [place] Height 75 06/05/[address] [facility] [place] Weight 228 06/05/[address] [facility] [place] Encounters Location Location Encounter Encounter Reason Attending ADM DC Status Source Details Type Number For Provider Date Date Visit [facility] Registered [id number] 04/11 [facility] [place] [facility]. Registered [id number] 04/13 [facility] [place] [facility] [id number] 04/[address] [facility] [place] [facility] St[facility] Registered [id number] 04/[address] [facility] [place] [facility] St[facility] Departed [id number] 04/27 04/27 [facility] Surgical 73 /2016 [facility] [place] [facility] [place] [facility] St[facility] Discharged [id number] 05/10 05/11 [facility] In[facility] 99 /2016 [facility] [place] [facility] St[facility] Discharged [id number] 06/01 06/05 [facility] [place] Procedures Procedure Code Date Perfomer Comments Source Chest Single [id number] 06/03/2017 [facility] [place] Chest Pa And Lat [id number] 06/02/[address] [facility] - (2 Views) [place] Abdomen & Pelvis [id number] 05/29/[address] [facility] Wo Contrast [place] Chest Pa And Lat [id number] 05/11/[address] [facility] - (2 Views) [place] Abdomen & Pelvis [id number] 05/10/[address] [facility] - Wo Contrast [place] Chest Single [id number] 05/10/[address] [facility] [place] REMOVAL OF [id number] 04/27/[address] [facility] - INFUSION DEVICE [place] FROM UPPER VEIN, OPEN APPROACH REMOVAL TUNNELED [id number] 04/27/[address] [facility] CV CATH [place]
--- OUTSIDE RECORDS SUMMARY | 2018-06-20 23:39 | XMS REPORT ---
:1965 [facility] [address]o [address] [place] [address] Care Team Providers Name Role Phone DWIGHT [...] (BEAKER) (test 243 mg/dL 70-110 TESTED AT [facility] [address] [place] [address] bvdc=[id number]) [address] [facility] [address] BASIC METABOLIC [id number] 13:51:00 Test Item Value Reference Range Comments SODIUM (BEAKER) (test 139 meq/L 135-148 qcfk=753) POTASSIUM (BEAKER) (test 3.4 meq/L 3.6-5.5 coup=472) CHLORIDE (BEAKER) (test 101 meq/L 98-106 kcdn=740) CO2 (BEAKER) (test 29 meq/L 20-29 mtwn=963) BLOOD UREA NITROGEN 11 mg/dL 10-26 (BEAKER) (test lunn=623) CREATININE (BEAKER) (test 2.10 mg/dL 0.50-1.20 fksg=589) GLUCOSE RANDOM (BEAKER) 157 mg/dL 70-110 (test uftl=657) CALCIUM (BEAKER) (test 8.6 mg/dL 8.5-10.5 vclr=708) EGFR (BEAKER) (test 33 mL/min/1.73 sq m ESTIMATED GFR IS NOT gzum=2856) ACCURATE CREATININE CLEARANCE IN PREDICTING GLOMERULAR FILTRATION RATE. ESTIMATED GFR IS NOT APPLICABLE FOR DIALYSIS PATIENTS. [id number] 13:44:00 Test Item Value Reference Range Comments MAGNESIUM (BEAKER) (test dtgl=223) 1.9 mg/dL 1.5-3.0 CBC W/PLT COUNT & AUTO [id number] 13:34:00 Test Item Value Reference Range Comments WHITE BLOOD CELL COUNT (BEAKER) (test dzfj=594) 6.8 K/ L 4.0-10.0 RED BLOOD CELL COUNT (BEAKER) (test siuc=316) 2.92 M/ L 4.20-5.80 HEMOGLOBIN (BEAKER) (test opsi=814) 8.4 GM/DL 13.0-16.8 HEMATOCRIT (BEAKER) (test tkze=298) 25.5 % 40.0-50.0 MEAN CORPUSCULAR VOLUME (BEAKER) (test lqwt=429) 87.4 fL 82.0-98.0 MEAN CORPUSCULAR HEMOGLOBIN (BEAKER) (test 28.7 pg 27.0-33.0 njtg=558) MEAN CORPUSCULAR HEMOGLOBIN CONC (BEAKER) (test 32.8 GM/DL 32.0-36.0 zokf=229) RED CELL DISTRIBUTION WIDTH (BEAKER) (test 14.7 % 10.3-14.2 dgql=512) PLATELET COUNT (BEAKER) (test vsnx=298) 299 K/CU MM 150-430 MEAN PLATELET VOLUME (BEAKER) (test pplk=963) 6.9 fL 6.5-10.5 NUCLEATED RED BLOOD CELLS (BEAKER) (test 0 /100 WBC 0-0 qlue=957) NEUTROPHILS RELATIVE PERCENT (BEAKER) (test 65 % vosk=652) LYMPHOCYTES RELATIVE PERCENT (BEAKER) (test 18 % qyaq=050) MONOCYTES RELATIVE PERCENT (BEAKER) (test 14 % upkm=698) EOSINOPHILS RELATIVE PERCENT (BEAKER) (test 3 % jndz=928) BASOPHILS RELATIVE PERCENT (BEAKER) (test 1 % fxvh=596) NEUTROPHILS ABSOLUTE COUNT (BEAKER) (test 4.40 K/ L 1.80-8.00 uqhz=190) LYMPHOCYTES ABSOLUTE COUNT (BEAKER) (test 1.20 K/ L 1.48-4.50 sgzd=267) MONOCYTES ABSOLUTE COUNT (BEAKER) (test 1.00 K/ L 0.00-1.30 uvze=209) EOSINOPHILS ABSOLUTE COUNT (BEAKER) (test 0.20 K/ L 0.00-0.50 iddw=966) BASOPHILS ABSOLUTE COUNT (BEAKER) (test 0.00 K/ L 0.00-0.20 giem=727) POCT-GLUCOSE [id number] 11:28:00 Test Item Value Reference Range Comments POC-GLUCOSE METER (BEAKER) 147 mg/dL 70-110 TESTED AT [address] (test xzuj=6709) [place] [id number] POCT-GLUCOSE [id number] 06:04:00 Test Item Value Reference Range Comments POC-GLUCOSE METER (BEAKER) 137 mg/dL 70-110 TESTED AT [address] (test wtko=8003) [place] [address] POCT-GLUCOSE [id number] 21:01:00 Test Item Value Reference Range Comments POC-GLUCOSE METER (BEAKER) 138 mg/dL 70-110 TESTED AT [address] (test yoye=8608) [place] [address] POCT-GLUCOSE [id number] 16:06:00 Test Item Value Reference Range Comments POC-GLUCOSE METER (BEAKER) 167 mg/dL 70-110 TESTED AT [address] (test ivgi=9894) [place] [address] POCT-GLUCOSE [id number] 12:49:00 Test Item Value Reference Range Comments POC-GLUCOSE METER (BEAKER) 144 mg/dL 70-110 TESTED AT [address] (test zlup=1303) [place] [address] [id number] 10:27:00 Test Item Value Reference Range Comments POC-CREATININE (BEAKER) 3.6 mg/dL 0.6-1.3 TESTED AT [address] (test vclc=0816) [place] [id number] POC-EGFR (BEAKER) (test 18 mL/min/1.73M2 joxa=6246) [id number] 10:27:00 Test Item Value Reference Range Comments POC-SODIUM (BEAKER) (test 138 meq/L 135-148 TESTED AT [address] yfzx=8013) [place] [address] [id number] 10:27:00 Test Item Value Reference Range Comments POC-POTASSIUM (BEAKER) 3.6 meq/L 3.6-5.5 TESTED AT [address] (test emts=3796) [place] [address] [id number] 10:27:00 Test Item Value Reference Range Comments POC-BUN (BEAKER) (test 20 mg/dL 7-21 TESTED AT [address] xahz=6780) [place] [address] [id number] 10:27:00 Test Item Value Reference Range Comments POC-CHLORIDE (BEAKER) (test 97 meq/L 98-107 TESTED AT [address] oupq=5981) [place] [address] [id number] 10:27:00 Test Item Value Reference Range Comments POC-GLUCOSE (BEAKER) (test 123 mg/dL 70-110 TESTED AT [address] rghd=0108) [place] [address] [id number] 10:27:00 Test Item Value Reference Range Comments POC-HEMATOCRIT (BEAKER) (test 24 % 40-50 TESTED AT [address] rwqj=8136) [place] [address] [id number] 10:27:00 Test Item Value Reference Range Comments POC-HEMOGLOBIN (BEAKER) 8.2 g/dL 13.0-16.8 TESTED AT [address] (test tdyv=1819) [place] [address] [id number] 10:27:00 Test Item Value Reference Range Comments POC-TCO2 (BEAKER) (test 30 meq/L 22-29 TESTED AT [address] cxkg=4262) [place] [address] POCT-GLUCOSE [id number] 06:08:00 Test Item Value Reference Range Comments POC-GLUCOSE METER (BEAKER) 163 mg/dL 70-110 TESTED AT [address] (test taqn=2304) [place] [address] POCT-GLUCOSE [id number] 21:07:00 Test Item Value Reference Range Comments POC-GLUCOSE METER (BEAKER) 132 mg/dL 70-110 TESTED AT [facility] [address] [place] [address] (test gbbj=6722) [facility] [address] POCT-GLUCOSE [id number] 12:58:00 Test Item Value Reference Range Comments POC-GLUCOSE METER (BEAKER) 178 mg/dL 70-110 TESTED AT [address] (test wtmt=4767) [facility] [address] POCT-GLUCOSE [id number] 05:29:00 Test Item Value Reference Range Comments POC-GLUCOSE METER (BEAKER) 171 mg/dL 70-110 TESTED AT [address] (test ovst=8132) [facility] [address] POCT-GLUCOSE [id number] 22:03:00 Test Item Value Reference Range Comments POC-GLUCOSE METER (BEAKER) 249 mg/dL 70-110 TESTED AT [address] (test lfcf=1835) [facility] [address] POCT-GLUCOSE [id number] 16:45:00 Test Item Value Reference Range Comments POC-GLUCOSE METER (BEAKER) 213 mg/dL 70-110 TESTED AT [address] (test pdil=3644) [facility] [address] [id number] 16:43:00 Test Item Value Reference Range Comments THYROID STIMULATING HORMONE (BEAKER) (test 2.09 uIU/mL 0.35-5.50 kzdz=938) COMPREHENSIVE METABOLIC [id number] 16:24:00 Test Item Value Reference Range Comments TOTAL PROTEIN (BEAKER) 7.2 gm/dL 6.0-8.5 (test xpcg=765) ALBUMIN (BEAKER) (test 3.5 g/dL 3.5-5.0 sjpq=3908) ALKALINE PHOSPHATASE 67 U/L 30-115 (BEAKER) (test yqkd=966) BILIRUBIN TOTAL (BEAKER) 0.3 mg/dL 0.1-1.2 (test gzdq=605) SODIUM (BEAKER) (test 136 meq/L 135-148 uone=258) POTASSIUM (BEAKER) (test 4.1 meq/L 3.6-5.5 olqx=167) CHLORIDE (BEAKER) (test 98 meq/L 98-106 rxzf=111) CO2 (BEAKER) (test 26 meq/L 20-29 xndw=876) BLOOD UREA NITROGEN 32 mg/dL 10-26 (BEAKER) (test tkbm=155) CREATININE (BEAKER) (test 4.40 mg/dL 0.50-1.20 dbom=619) GLUCOSE RANDOM (BEAKER) 212 mg/dL 70-110 (test ghbr=718) CALCIUM (BEAKER) (test 9.0 mg/dL 8.5-10.5 smgp=953) AST (SGOT) (BEAKER) (test 14 U/L 5-40 ijsc=257) ALT (SGPT) (BEAKER) (test 4 U/L 5-50 sbft=910) EGFR (BEAKER) (test 14 mL/min/1.73 sq m ESTIMATED GFR IS NOT kdkj=0222) ACCURATE CREATININE CLEARANCE IN PREDICTING GLOMERULAR FILTRATION RATE. ESTIMATED GFR IS NOT APPLICABLE FOR DIALYSIS PATIENTS. CBC W/PLT COUNT & AUTO [id number] 16:02:00 Test Item Value Reference Range Comments WHITE BLOOD CELL COUNT (BEAKER) (test tabk=364) 6.9 K/ L 4.0-10.0 RED BLOOD CELL COUNT (BEAKER) (test toac=168) 2.95 M/ L 4.20-5.80 HEMOGLOBIN (BEAKER) (test qwjw=473) 8.6 GM/DL 13.0-16.8 HEMATOCRIT (BEAKER) (test ojjr=046) 25.9 % 40.0-50.0 MEAN CORPUSCULAR VOLUME (BEAKER) (test ocoa=500) 87.9 fL 82.0-98.0 MEAN CORPUSCULAR HEMOGLOBIN (BEAKER) (test 29.0 pg 27.0-33.0 uezz=568) MEAN CORPUSCULAR HEMOGLOBIN CONC (BEAKER) (test 33.0 GM/DL 32.0-36.0 ortl=325) RED CELL DISTRIBUTION WIDTH (BEAKER) (test 15.0 % 10.3-14.2 ljwd=912) PLATELET COUNT (BEAKER) (test ubdl=902) 330 K/CU MM 150-430 MEAN PLATELET VOLUME (BEAKER) (test vfrp=784) 7.1 fL 6.5-10.5 NUCLEATED RED BLOOD CELLS (BEAKER) (test 0 /100 WBC 0-0 fbkk=398) NEUTROPHILS RELATIVE PERCENT (BEAKER) (test 66 % whmu=906) LYMPHOCYTES RELATIVE PERCENT (BEAKER) (test 16 % pbno=095) MONOCYTES RELATIVE PERCENT (BEAKER) (test 12 % tufa=650) EOSINOPHILS RELATIVE PERCENT (BEAKER) (test 5 % mtcd=059) BASOPHILS RELATIVE PERCENT (BEAKER) (test 1 % uiby=495) NEUTROPHILS ABSOLUTE COUNT (BEAKER) (test 4.60 K/ L 1.80-8.00 urhk=024) LYMPHOCYTES ABSOLUTE COUNT (BEAKER) (test 1.10 K/ L 1.48-4.50 sjtg=762) MONOCYTES ABSOLUTE COUNT (BEAKER) (test 0.80 K/ L 0.00-1.30 umgl=394) EOSINOPHILS ABSOLUTE COUNT (BEAKER) (test 0.30 K/ L 0.00-0.50 uwjb=564) BASOPHILS ABSOLUTE COUNT (BEAKER) (test 0.10 K/ L 0.00-0.20 hfbm=723) PROTHROMBIN [id number] 16:01:00 Test Item Value Reference Range Comments PROTIME (BEAKER) (test emub=329) 10.3 seconds 9.3-12.0 INR (BEAKER) (test rmjq=539) 1.0 <=5.9 RECOMMENDED COUMADIN/WARFARIN INR THERAPY RANGESSTANDARD DOSE: 2.0 - 3.0 Includes: PROPHYLAXIS forvenous thrombosis, systemic embolization; TREATMENT for venous thrombosis and/or pulmonary embolus.HIGH RISK: Target INR is 2.5-3.5 for patients with mechanical heart valves.POCT-GLUCOSE [id number] 12:01:00 Test Item Value Reference Range Comments POC-GLUCOSE METER (BEAKER) 211 mg/dL 70-110 TESTED AT [facility] [address] [place] [address] (test qdek=5069) [facility] [address] POCT-GLUCOSE [id number] 06:08:00 Test Item Value Reference Range Comments POC-GLUCOSE METER (BEAKER) 191 mg/dL 70-110 TESTED AT [address] (test txfl=1132) [facility] [address] POCT-GLUCOSE [id number] 21:28:00 Test Item Value Reference Range Comments POC-GLUCOSE METER (BEAKER) 233 mg/dL 70-110 TESTED AT [address] (test nyfa=9691) [facility] [address] POCT-GLUCOSE [id number] 16:19:00 Test Item Value Reference Range Comments POC-GLUCOSE METER (BEAKER) 290 mg/dL 70-110 TESTED AT [address] (test dpzw=0787) [facility] [address] POCT-GLUCOSE [id number] 13:33:00 Test Item Value Reference Range Comments POC-GLUCOSE METER (BEAKER) 186 mg/dL 70-110 TESTED AT [address] (test xenk=5981) [facility] [address] POCT-GLUCOSE [id number] 06:27:00 Test Item Value Reference Range Comments POC-GLUCOSE METER (BEAKER) 204 mg/dL 70-110 TESTED AT [address] (test pmzo=1030) [facility] [address] POCT-GLUCOSE [id number] 21:40:00 Test Item Value Reference Range Comments POC-GLUCOSE METER (BEAKER) 267 mg/dL 70-110 TESTED AT [address] (test gppo=9554) [facility] [address] POCT-GLUCOSE [id number] 17:32:00 Test Item Value Reference Range Comments POC-GLUCOSE METER (BEAKER) 221 mg/dL 70-110 TESTED AT [address] (test dmcg=8590) [facility] [address] HEPATITIS B SURFACE [id number] 14:21:00 Test Item Value Reference Range Comments HEPATITIS B SURFACE ANTIBODY (BEAKER) (test < mIU/mL <8.0 gfdl=101) HEPATITIS B CORE ANTIBODY, [id number] 14:15:00 Test Item Value Reference Range Comments HEPATITIS B CORE TOTAL ANTIBODY (BEAKER) (test Nonreactive Nonreactive chal=822) POCT-GLUCOSE [id number] 12:18:00 Test Item Value Reference Range Comments POC-GLUCOSE METER (BEAKER) 193 mg/dL 70-110 TESTED AT [address] (test jsli=2953) [facility] [address] RAD, CHEST, 1 VIEW, NON [id number] 08:49:00Reason for exam:->for outpatient HD placementShould this [...] Hammereport Verified Date/Time: 06/10/2017 08:49:42 Reading Location: [facility] Radiology Reading Room Electronically signed by: SACHI HAMMER on 2016 08:49 AMPOCT-GLUCOSE [id number] 06:53:00 Test Item Value Reference Range Comments POC-GLUCOSE METER (BEAKER) 177 mg/dL 70-110 TESTED AT [address] (test drsa=2263) [facility] [address] POCT-GLUCOSE [id number] 22:10:00 Test Item Value Reference Range Comments POC-GLUCOSE METER (BEAKER) 109 mg/dL 70-110 TESTED AT [address] (test dfux=0095) [facility] [address] HEPATITIS B SURFACE [id number] 20:18:00 Test Item Value Reference Range Comments HEPATITIS B SURFACE ANTIGEN (2) (BEAKER) (test Nonreactive Nonreactive hkkl=9758) POCT-GLUCOSE [id number] 17:08:00 Test Item Value Reference Range Comments POC-GLUCOSE METER (BEAKER) 223 mg/dL 70-110 TESTED AT [address] (test sywq=4499) [facility] [address] POCT-GLUCOSE [id number] 12:47:00 Test Item Value Reference Range Comments POC-GLUCOSE METER (BEAKER) 200 mg/dL 70-110 TESTED AT [address] (test vaka=8027) [facility] [address] ANG, TUNNELED CATHETER [id number] 12:13:00Reason for exam:->renal failureFINAL REPORT Tunneled central [...] patient's medical record by the nurse. Senior Principal: Onesimo Lopez MD. Councilman: None. Approach: Right internal jugular vein Estimated [...] needle into the right atrium. A 4 [place] Islander micropuncture sheath was placed. A subcutaneous tunnel was created in the right anterior chest wall by blunt dissection. A 19 cm tipped cuff 15.5 [place] Duraflow 2 catheter was brought through the [...] Lopez Verified Date/Time: 06/09/2017 12:13:36 Reading Location: [facility] Radiology Reading Room 12 :13 PMPOCT-GLUCOSE [id number] 06:03:00 Test Item Value Reference Range Comments POC-GLUCOSE METER (BEAKER) 208 mg/dL 70-110 TESTED AT [facility] [address] [facility] (test cgmm=7862) [address] [facility] [address] BASIC METABOLIC [id number] 06:00:00 Test Item Value Reference Range Comments SODIUM (BEAKER) (test 139 meq/L 135-148 xnhc=248) POTASSIUM (BEAKER) (test 3.5 meq/L 3.6-5.5 sppn=154) CHLORIDE (BEAKER) (test 103 meq/L 98-106 nhyr=172) CO2 (BEAKER) (test 26 meq/L 20-29 ztrb=630) BLOOD UREA NITROGEN 62 mg/dL 10-26 (BEAKER) (test egmp=751) CREATININE (BEAKER) (test 5.10 mg/dL 0.50-1.20 wzvq=341) GLUCOSE RANDOM (BEAKER) 191 mg/dL 70-110 (test lbjr=161) CALCIUM (BEAKER) (test 9.0 mg/dL 8.5-10.5 hrcp=312) EGFR (BEAKER) (test 12 mL/min/1.73 sq m ESTIMATED GFR IS NOT hadk=6054) ACCURATE CREATININE CLEARANCE IN PREDICTING GLOMERULAR FILTRATION RATE. ESTIMATED GFR IS NOT APPLICABLE FOR DIALYSIS PATIENTS. HEPATIC FUNCTION [id number] 05:58:00 Test Item Value Reference Range Comments TOTAL PROTEIN (BEAKER) (test qfjp=970) 6.3 gm/dL 6.0-8.5 ALBUMIN (BEAKER) (test xmcp=3218) 3.2 g/dL 3.5-5.0 BILIRUBIN TOTAL (BEAKER) (test oaks=636) 0.4 mg/dL 0.1-1.2 BILIRUBIN DIRECT (BEAKER) (test ikuv=775) 0.2 mg/dL 0.0-0.4 ALKALINE PHOSPHATASE (BEAKER) (test aftr=782) 67 U/L 30-115 AST (SGOT) (BEAKER) (test bixf=874) 13 U/L 5-40 ALT (SGPT) (BEAKER) (test gcqe=842) 10 U/L 5-50 CBC W/PLT COUNT & AUTO [id number] 05:56:00 Test Item Value Reference Range Comments WHITE BLOOD CELL COUNT (BEAKER) (test yteo=455) 6.3 K/ L 4.0-10.0 RED BLOOD CELL COUNT (BEAKER) (test dqzd=657) 2.71 M/ L 4.20-5.80 HEMOGLOBIN (BEAKER) (test bgck=846) 7.8 GM/DL 13.0-16.8 HEMATOCRIT (BEAKER) (test adfw=810) 23.6 % 40.0-50.0 MEAN CORPUSCULAR VOLUME (BEAKER) (test ktat=993) 86.8 fL 82.0-98.0 MEAN CORPUSCULAR HEMOGLOBIN (BEAKER) (test 28.6 pg 27.0-33.0 irzb=839) MEAN CORPUSCULAR HEMOGLOBIN CONC (BEAKER) (test 33.0 GM/DL 32.0-36.0 rqyv=160) RED CELL DISTRIBUTION WIDTH (BEAKER) (test 14.8 % 10.3-14.2 esqc=843) PLATELET COUNT (BEAKER) (test afsc=689) 334 K/CU MM 150-430 MEAN PLATELET VOLUME (BEAKER) (test glot=068) 6.9 fL 6.5-10.5 NUCLEATED RED BLOOD CELLS (BEAKER) (test 0 /100 WBC 0-0 pnrg=263) NEUTROPHILS RELATIVE PERCENT (BEAKER) (test 57 % nzax=380) LYMPHOCYTES RELATIVE PERCENT (BEAKER) (test 19 % indx=969) MONOCYTES RELATIVE PERCENT (BEAKER) (test 15 % qhdc=151) EOSINOPHILS RELATIVE PERCENT (BEAKER) (test 7 % ngyl=975) BASOPHILS RELATIVE PERCENT (BEAKER) (test 1 % dkqw=761) NEUTROPHILS ABSOLUTE COUNT (BEAKER) (test 3.60 K/ L 1.80-8.00 ftoq=080) LYMPHOCYTES ABSOLUTE COUNT (BEAKER) (test 1.20 K/ L 1.48-4.50 ixgc=181) MONOCYTES ABSOLUTE COUNT (BEAKER) (test 1.00 K/ L 0.00-1.30 xukg=388) EOSINOPHILS ABSOLUTE COUNT (BEAKER) (test 0.50 K/ L 0.00-0.50 znth=128) BASOPHILS ABSOLUTE COUNT (BEAKER) (test 0.10 K/ L 0.00-0.20 gvye=651) [id number] 05:55:00 Test Item Value Reference Range Comments PHOSPHORUS (BEAKER) (test jwfk=199) 4.1 mg/dL 2.5-4.5 [id number] 05:51:00 Test Item Value Reference Range Comments PROTIME (BEAKER) (test phvm=722) 10.7 seconds 9.3-12.0 INR (BEAKER) (test cads=693) 1.0 <=5.9 PARTIAL THROMBOPLASTIN TIME (BEAKER) (test 28.5 seconds 23.0-35.0 dpcp=055) RECOMMENDED COUMADIN/WARFARIN INR THERAPY RANGESSTANDARD DOSE: 2.0 - 3.0 Includes: PROPHYLAXIS forvenous thrombosis, systemic embolization; TREATMENT for venous thrombosis and/or pulmonary embolus.HIGH RISK: Target INR is 2.5-3.5 for patients with mechanical heart valves.[id number] 05:50:00 Test Item Value Reference Range Comments MAGNESIUM (BEAKER) (test usuz=038) 1.7 mg/dL 1.5-3.0 POCT-GLUCOSE [id number] 23:14:00 Test Item Value Reference Range Comments POC-GLUCOSE METER (BEAKER) 230 mg/dL 70-110 TESTED AT [facility] [address] [place] [address] (test xhwd=9670) [facility] [address]
--- NOTE | 2018-06-21 00:19 | ER ---
Nurse's Notes [facility] Name: Yusuf Bah Age: 53 yrs Sex: Male : 1965 Arrival Date: 06/20/2018 Time: 23:38 Bed 15 Private MD: Garo Chavarria Diagnosis: Vomiting;End stage renal disease;Cardiomegaly;Unspecified combined systolic (congestive) and diastolic (congestive) heart failure Presentation: 06/20 23:44 Presenting complaint: Patient states: Pt reports he has been having since 1729. Pt ea states he had a procedure done on his right arm this morning at [facility]. Pt stated " I called Dr. Chavarria and he told me to go to the ER". Transition of care: patient was not received from another setting of care. Onset of symptoms was June 20, 2018. Risk Assessment: Do you want to hurt yourself or someone else? Patient reports no desire to harm self or others. Initial Sepsis Screen: Does the patient meet any 2 criteria? No. Patient's initial sepsis screen is negative. Does the patient have a suspected source of infection? No. Patient's initial sepsis screen is negative. Care prior to arrival: None. 23:44 Method Of Arrival: Ambulatory ea 23:44 Acuity: ALVERTO 3 ea Triage Assessment: 06/21 00:05 General: Appears uncomfortable, Behavior is calm, cooperative, appropriate for age. ea Pain: Denies pain. Neuro: Level of Consciousness is awake, alert, obeys commands, Oriented to person, place, time, situation. Cardiovascular: Patient's skin is warm and dry. Respiratory: Airway is patent Respiratory effort is even, unlabored, Respiratory pattern is regular, symmetrical. GI: Abdomen is non-distended, Bowel sounds present X 4 quads. Reports nausea, vomiting. Derm: Skin is dry, Skin is pale, Skin temperature is warm. Historical: - Allergies: 00:04 Sulfa (Sulfonamide Antibiotics); ea - Home Meds: 00:04 amlodipine 10 mg tab 1 tab once daily [Active]; furosemide 40 mg Oral tab 1 tab 2 times ea per day [Active]; sertraline 50 mg oral tab 1 tab once daily [Active]; atorvastatin 80 mg Oral tab 1 tab once daily [Active]; Plavix 75 mg Oral tab 1 tab once daily [Active]; Stool Softener 100 mg Oral tab 1 tab 2 times per day [Active]; Ranexa 1,000 mg Oral Tb12 1 tab daily [Active]; metoprolol tartrate 100 mg Oral tab 1 tab 2 times per day [Active]; hydralazine 25 mg Oral tab 3 tab 2 times per day [Active]; metoclopramide HCl 5 mg Oral tab 1 tab three times a day [Active]; hydralazine 25 mg Oral tab 3 tab 2 times per day [Active]; aspirin 325 mg Oral tab 1 tab once daily [Active]; famotidine 40 mg Oral tab 1 tab once daily [Active]; clonidine HCl 0.1 mg Oral tab 1 tab 3 times per day [Active]; Ambien 5 mg Oral tab 1 tab once daily [Active]; Prevacid 30 mg Oral cpDR 1 cap once daily [Active]; [place] 7.5-325 mg Oral tab 1 tab twice a day [Active]; Travatan Z 0.004 % ophthalmic drop 1 drop once daily [Active]; nitroglycerin 0.2 mg/hr Topical pt24 1 patch as needed [Active]; Zofran (as hydrochloride) 4 mg Oral tab 1 tabs every 6 hours [Active]; promethazine 25 mg Oral tab 1 tab every 8 hours [Active]; lactulose 10 gram/15 mL Oral soln 30 mL once daily [Active]; Humalog Sub-Q per insulin pump [Active]; sevelamer HCl Oral 2 tabs 3 times per day [Active]; - PMHx: 00:04 Small vessle disease of the heart; Renal Disease; Hypertension; High Cholesterol; ea Glaucoma; GERD; Dialysis; Diabetes - IDDM; Depression; CAD; Angina; - PSHx: 00:04 Appendectomy; Cholecystectomy; ea - Immunization history:: Adult Immunizations up to date. - Social history:: Smoking status: Patient/guardian denies using tobacco. - Ebola Screening: : No symptoms or risks identified at this time. Screenin/08 23:49 Abuse screen: Denies threats or abuse. Nutritional screening: No deficits noted. ea Tuberculosis screening: No symptoms or risk factors identified. Fall Risk None identified. Assessment: 06/21 01:16 Reassessment: Patient and/or family updated on plan of care and expected duration. Pain ea level reassessed. Patient is alert, oriented x 3, equal unlabored respirations, skin warm/dry/pink. Patient states feeling better. 01:34 Reassessment: Patient appears in no apparent distress at this time. No changes from ak1 previously documented assessment. pt nausea and vomiting improved. 02:27 Reassessment: report called to Leonora. . ak1 Vital Signs: 06/20 23:47 BP 178 / 92; Pulse 128; Resp 19; Temp 98.1; Pulse Ox 95% ; Weight 97.52 kg; Height 6 ea ft. 3 in. (190.50 cm); 06/21 01:35 BP 167 / 82; Pulse 119; Resp 15; Temp 98.2; Pulse Ox 94% on R/A; Pain 4/10; ak1 06/20 23:47 Body Mass Index 26.87 (97.52 kg, 190.50 cm) ea ED Course: 06/20 23:38 Patient arrived in ED. al2 23:39 Garo Chavarria MD is Private Physician. al2 23:40 Elena Hoffmann, LUIZ is Primary Nurse. ea 23:47 Triage completed. ea 23:48 Patient has correct armband on for positive identification. Bed in low position. Call ea light in reach. 23:49 Arm band placed on Patient placed in an exam room, on a stretcher, on pulse oximetry. ea 06/21 00:00 Baldemar Batrse MD is Attending Physician. logan 00:17 Garo Chavarria MD is Hospitalizing Provider. logan 00:17 Missed attempt(s): 22 gauge in left hand. ag4 00:18 Missed attempt(s): 22 gauge in left antecubital area. ag4 00:25 Initial lab(s) drawn, by al, sent to lab. EKG done, by ED staff, reviewed by Baldemar Batres MD X-ray(s) taken. Inserted saline lock: 22 gauge in left antecubital area, using aseptic technique. Blood collected. 00:29 X-ray completed. Portable x-ray completed in exam room. Patient tolerated procedure kw well. 01:13 No provider procedures requiring assistance completed. Patient admitted, IV remains in ea place. Administered Medications: Discontinued: NS 0.9% 250 ml IV at bolus once 00:26 Drug: NS 0.9% 250 ml Route: IV; Rate: bolus; Site: left antecubital; ak1 01:13 Follow up: Response: No adverse reaction; IV Status: Completed infusion; IV Intake: ea 250ml 00:30 Drug: Zofran 4 mg Route: IVP; Site: left antecubital; ea 01:32 Follow up: Response: Nausea unchanged ak1 00:30 Drug: Pepcid 20 mg Route: IVP; Site: left antecubital; ea 01:33 Follow up: Response: No adverse reaction ak1 00:30 Drug: morphine 2 mg Route: IVP; Site: left antecubital; ea 01:33 Follow up: Response: No adverse reaction ak1 01:15 Drug: Phenergan 12.5 mg Route: IVP; Site: left antecubital; ak1 01:32 Follow up: Response: No adverse reaction ak1 01:20 Not Given (Duplicate Order): NS 0.9% 1000 ml IV at 75 ml/hr continuous logan 01:50 Drug: Lovenox 40 mg Route: Sub-Q; Site: left lower abdomen; ak1 02:01 Follow up: Response: No adverse reaction ak1 01:50 Drug: Lopressor (metoprolol TARTRATE) 50 mg Route: PO; ak1 02:01 Follow up: Response: No adverse reaction ak1 01:51 Drug: morphine 2 mg Route: IVP; Site: left antecubital; ak1 02:02 Follow up: Response: No adverse reaction ak1 01:51 Drug: Lasix 60 mg Route: IVP; Site: left antecubital; ak1 02:01 Follow up: Response: No adverse reaction ak1 01:51 Drug: Aspirin 81 mg Route: PO; ak1 02:01 Follow up: Response: No adverse reaction ak1 Intake: 01:13 IV: 250ml; Total: 250ml. ea Outcome: 00:18 Decision to Hospitalize by Provider. logan 01:34 Condition: stable ak1 01:34 Instructed on the need for admit. 01:51 Admitted to Med/surg accompanied by tech, family with patient, via wheelchair, with ak1 chart. 02:27 Patient left the ED. ak1 Signatures: Baldemar Batres MD MD cha Whitley, Kimberlee kw Krenek, Amber RN RN ak1 Elena Hoffmann RN RN ea Love, Angelica al2 Guzman, Adan ag4
--- NOTE | 2018-06-21 00:20 | EDPHYS ---
Physician Documentation [facility] Name: Yusuf Bah Age: 53 yrs Sex: Male : 1965 Arrival Date: 06/20/2018 Time: 23:38 Bed 15 Private MD: Garo Chavarria ED Physician Baldemar Batres HPI: 06/21 00:03 This 53 yrs old Male presents to ER via Ambulatory with complaints of logan Vomiting, POST SURGERY. 00:13 The patient presents to the emergency department with nausea, vomiting, that is logan continuous. Onset: The symptoms/episode began/occurred today. Possible causes: unknown, just av fistula surgery. The symptoms are aggravated by food , The symptoms are alleviated by nothing. remaining still. Associated signs and symptoms: Pertinent positives: anorexia, nausea, vomiting. Severity of symptoms: At their worst the symptoms were moderate in the emergency department the symptoms are unchanged. The patient has not experienced similar symptoms in the past. Historical: - Allergies: 00:04 Sulfa (Sulfonamide Antibiotics); ea - Home Meds: 00:04 amlodipine 10 mg tab 1 tab once daily [Active]; furosemide 40 mg Oral tab 1 tab 2 times ea per day [Active]; sertraline 50 mg oral tab 1 tab once daily [Active]; atorvastatin 80 mg Oral tab 1 tab once daily [Active]; Plavix 75 mg Oral tab 1 tab once daily [Active]; Stool Softener 100 mg Oral tab 1 tab 2 times per day [Active]; Ranexa 1,000 mg Oral Tb12 1 tab daily [Active]; metoprolol tartrate 100 mg Oral tab 1 tab 2 times per day [Active]; hydralazine 25 mg Oral tab 3 tab 2 times per day [Active]; metoclopramide HCl 5 mg Oral tab 1 tab three times a day [Active]; hydralazine 25 mg Oral tab 3 tab 2 times per day [Active]; aspirin 325 mg Oral tab 1 tab once daily [Active]; famotidine 40 mg Oral tab 1 tab once daily [Active]; clonidine HCl 0.1 mg Oral tab 1 tab 3 times per day [Active]; Ambien 5 mg Oral tab 1 tab once daily [Active]; Prevacid 30 mg Oral cpDR 1 cap once daily [Active]; [place] 7.5-325 mg Oral tab 1 tab twice a day [Active]; Travatan Z 0.004 % ophthalmic drop 1 drop once daily [Active]; nitroglycerin 0.2 mg/hr Topical pt24 1 patch as needed [Active]; Zofran (as hydrochloride) 4 mg Oral tab 1 tabs every 6 hours [Active]; promethazine 25 mg Oral tab 1 tab every 8 hours [Active]; lactulose 10 gram/15 mL Oral soln 30 mL once daily [Active]; Humalog Sub-Q per insulin pump [Active]; sevelamer HCl Oral 2 tabs 3 times per day [Active]; - PMHx: 00:04 Small vessle disease of the heart; Renal Disease; Hypertension; High Cholesterol; ea Glaucoma; GERD; Dialysis; Diabetes - IDDM; Depression; CAD; Angina; - PSHx: 00:04 Appendectomy; Cholecystectomy; ea - Immunization history:: Adult Immunizations up to date. - Social history:: Smoking status: Patient/guardian denies using tobacco. - Ebola Screening: : No symptoms or risks identified at this time. ROS: 00:14 Constitutional: Negative for fever, chills, and weight loss, Eyes: Negative for injury, logan pain, redness, and discharge, ENT: Negative for injury, pain, and discharge, Neck: Negative for injury, pain, and swelling, Cardiovascular: Negative for chest pain, palpitations, and edema, Respiratory: Negative for shortness of breath, cough, wheezing, and pleuritic chest pain, Back: Negative for injury and pain, : Negative for injury, bleeding, discharge, and swelling, Skin: Negative for injury, rash, and discoloration, Neuro: Negative for headache, weakness, numbness, tingling, and seizure, Psych: Negative for depression, anxiety, suicide ideation, homicidal ideation, and hallucinations, Allergy/Immunology: Negative for hives, rash, and allergies, Endocrine: Negative for neck swelling, polydipsia, polyuria, polyphagia, and marked weight changes, Hematologic/Lymphatic: Negative for swollen nodes, abnormal bleeding, and unusual bruising. 00:14 Abdomen/GI: Positive for nausea, vomiting, abdominal cramps. Exam: 00:14 Constitutional: This is a well developed, well nourished patient who is awake, alert, logan and in no acute distress. Head/Face: Normocephalic, atraumatic. Eyes: Pupils equal round and reactive to light, extra-ocular motions intact. Lids and lashes normal. Conjunctiva and sclera are non-icteric and not injected. Cornea within normal limits. Periorbital areas with no swelling, redness, or edema. ENT: Nares patent. No nasal discharge, no septal abnormalities noted. Tympanic membranes are normal and external auditory canals are clear. Oropharynx with no redness, swelling, or masses, exudates, or evidence of obstruction, uvula midline. Mucous membranes moist. Neck: Trachea midline, no thyromegaly or masses palpated, and no cervical lymphadenopathy. Supple, full range of motion without nuchal rigidity, or vertebral point tenderness. No Meningismus. Chest/axilla: Normal chest wall appearance and motion. Nontender with no deformity. No lesions are appreciated. Respiratory: Lungs have equal breath sounds bilaterally, clear to auscultation and percussion. No rales, rhonchi or wheezes noted. No increased work of breathing, no retractions or nasal flaring. Back: No spinal tenderness. No costovertebral tenderness. Full range of motion. Male : Normal genitalia with no discharge or lesions. Skin: Warm, dry with normal turgor. Normal color with no rashes, no lesions, and no evidence of cellulitis. Neuro: Awake and alert, GCS 15, oriented to person, place, time, and situation. Cranial nerves II-XII grossly intact. Motor strength 5/5 in all extremities. Sensory grossly intact. Cerebellar exam normal. Normal gait. Psych: Awake, alert, with orientation to person, place and time. Behavior, mood, and affect are within normal limits. 00:14 Cardiovascular: Rate: tachycardic, Rhythm: regular, Heart sounds: normal, Edema: 3+ edema to level of right upper arm, right elbow, right forearm and right wrist, JVD: is not appreciated, Dialysis shunt: in the right bicep, with palpable thrill, with auscultated bruit. Vital Signs: 06/20 23:47 BP 178 / 92; Pulse 128; Resp 19; Temp 98.1; Pulse Ox 95% ; Weight 97.52 kg; Height 6 ea ft. 3 in. (190.50 cm); 06/21 01:35 BP 167 / 82; Pulse 119; Resp 15; Temp 98.2; Pulse Ox 94% on R/A; Pain 4/10; ak1 06/20 23:47 Body Mass Index 26.87 (97.52 kg, 190.50 cm) MDM: 00:01 Patient medically screened. [facility] 00:14 Data reviewed: vital signs, nurses notes, lab test result(s), EKG, radiologic studies, logan plain films. 06/21 00:12 Order name: Basic Metabolic Panel; Complete Time: [facility] 06/21 00:12 Order name: CBC with Diff; Complete Time: [facility] 06/21 00:12 Order name: LFT's; Complete Time: [facility] 06/21 00:12 Order name: Magnesium; Complete Time: [facility] 06/21 00:12 Order name: NT PRO-BNP; Complete Time: [facility] 06/21 00:12 Order name: PT-INR; Complete Time: [facility] 06/21 00:12 Order name: Troponin (emerg Dept Use Only); Complete Time: [facility] 06/21 00:12 Order name: XRAY Chest (1 view) [facility] 06/21 00:12 Order name: Lipase; Complete Time: [facility] 06/21 00:12 Order name: EKG; Complete Time: 00: [facility] 06/21 00:12 Order name: Cardiac monitoring; Complete Time: : [facility] 06/21 00:12 Order name: EKG - Nurse/Tech; Complete Time: 00: [facility] 06/21 00:12 Order name: IV Saline Lock; Complete Time: 00: [facility] 06/21 00:12 Order name: Labs collected and sent; Complete Time: 00: [facility] 06/21 00:12 Order name: O2 Per Protocol; Complete Time: 00: [facility] 06/21 00:12 Order name: O2 Sat Monitoring; Complete Time: 00: [facility] 06/21 00:25 Order name: CONS Physician Consult EDMS Administered Medications: Discontinued: NS 0.9% 250 ml IV at bolus once 00:26 Drug: NS 0.9% 250 ml Route: IV; Rate: bolus; Site: left antecubital; ak1 01:13 Follow up: Response: No adverse reaction; IV Status: Completed infusion; IV Intake: ea 250ml 00:30 Drug: Zofran 4 mg Route: IVP; Site: left antecubital; ea 01:32 Follow up: Response: Nausea unchanged ak1 00:30 Drug: Pepcid 20 mg Route: IVP; Site: left antecubital; ea 01:33 Follow up: Response: No adverse reaction ak1 00:30 Drug: morphine 2 mg Route: IVP; Site: left antecubital; ea 01:33 Follow up: Response: No adverse reaction ak1 01:15 Drug: Phenergan 12.5 mg Route: IVP; Site: left antecubital; ak1 01:32 Follow up: Response: No adverse reaction ak1 01:20 Not Given (Duplicate Order): NS 0.9% 1000 ml IV at 75 ml/hr continuous logan 01:50 Drug: Lovenox 40 mg Route: Sub-Q; Site: left lower abdomen; ak1 02:01 Follow up: Response: No adverse reaction ak1 01:50 Drug: Lopressor (metoprolol TARTRATE) 50 mg Route: PO; ak1 02:01 Follow up: Response: No adverse reaction ak1 01:51 Drug: morphine 2 mg Route: IVP; Site: left antecubital; ak1 02:02 Follow up: Response: No adverse reaction ak1 01:51 Drug: Lasix 60 mg Route: IVP; Site: left antecubital; ak1 02:01 Follow up: Response: No adverse reaction ak1 01:51 Drug: Aspirin 81 mg Route: PO; ak1 02:01 Follow up: Response: No adverse reaction ak1 Disposition: 06/21/18 00:18 Hospitalization ordered by Garo Chavarria for Inpatient Admission. Preliminary diagnosis are Vomiting, End stage renal disease, Cardiomegaly, Unspecified combined systolic (congestive) and diastolic (congestive) heart failure. - Bed requested for Telemetry/MedSurg (Inpatient). - Status is Inpatient Admission. ak1 - Condition is Fair. - Problem is new. - Symptoms have improved. UTI on Admission? No Signatures: Dispatcher [employer] EDMS Lise Moore RN RN mw Anderson, Corey, MD MD cha Ballard, Brenda, RN RN bb Krenek, Amber, RN RN ak1 Antunez, Elena, RN RN ea Corrections: (The following items were deleted from the chart) 00:30 00:18 Hospitalization Ordered by Garo Chavarria MD for Inpatient Admission. Preliminary mw diagnosis is Vomiting; End stage renal disease. Bed requested for Telemetry/MedSurg (Inpatient). Status is Inpatient Admission. Condition is Fair. Problem is new. Symptoms have improved. UTI on Admission? No. logan 01:29 00:30 06/21/2018 00:18 Hospitalization Ordered by Garo Chavarria MD for Inpatient olgan Admission. Preliminary diagnosis is Vomiting; End stage renal disease. Bed requested for Telemetry/MedSurg (Inpatient). Status is Inpatient Admission. Condition is Fair. Problem is new. Symptoms have improved. UTI on Admission? No. mw 02:27 01:29 06/21/2018 00:18 Hospitalization Ordered by Garo Chavarria MD for Inpatient ak1 Admission. Preliminary diagnosis is Vomiting; End stage renal disease; Cardiomegaly; Unspecified combined systolic (congestive) and diastolic (congestive) heart failure. Bed requested for Telemetry/MedSurg (Inpatient). Status is Inpatient Admission. Condition is Fair. Problem is new. Symptoms have improved. UTI on Admission? No. logan
[2018-06-21] MEDS ORDERED: NA CHLORIDE 0.9% 250 ML ONE (00:27)
[2018-06-21] MEDS ORDERED: ONDANSETRON 4 MG/2 ML VIAL ONE (00:27)
[2018-06-21] MEDS ORDERED: MORPHINE 4 MG/ML SYR ONE (00:27)
[2018-06-21] MEDS ORDERED: NA CHLORIDE 0.9% 1,000 ML ONE (00:27)
[2018-06-21] MEDS ORDERED: FAMOTIDINE 20 MG/2 ML VIAL IV ONE (00:27)
[2018-06-21 00:33] LABS: Absolute Lymphocytes (CBC) 0.4 K/uL (0.7-4.9); Absolute Monocytes 0.7 K/uL (0.1-1.3); Absolute Neutrophil 5.4 K/uL (1.8-8.0); Basophils % 1.1 % (0-1.3); Eosinophils % 5.3 % (0-4.4); Hematocrit 34.3 % (39.6-49.0); Lymphocytes % 5.8 % (15.3-44.8); MPV 7.6 fL (7.6-11.3); Monocytes % 10.6 % (3.3-12.3); RBC Red Blood Cell Count 3.93 M/uL (4.33-5.43)
[2018-06-21 00:47] LABS: Protime INR 1.07
[2018-06-21] MEDS ORDERED: PROMETHAZINE 25 MG/ML VIAL ONE (01:08)
[2018-06-21 01:09] LABS: Albumin 3.5 g/dL (3.4-5.0); Bilirubin Direct 0.2 mg/dL (0-0.2); Bilirubin Total 0.5 mg/dL (0.2-1.0); Magnesium 2.3 mg/dL (1.8-2.4)
[2018-06-21 01:10] LABS: Troponin (Emerg Dept Use Only) 0.95 ng/mL (0.0-0.045)
[2018-06-21] MEDS ORDERED: ASPIRIN 81 MG CHEWABLE TABLET ONE (01:50)
[2018-06-21] MEDS ORDERED: FUROSEMIDE 100 MG/10 ML VIAL IV ONE (01:51)
[2018-06-21] MEDS ORDERED: METOPROLOL TAR 50 MG TAB ONE (01:51)
[2018-06-21] MEDS ORDERED: ENOXAPARIN 40 MG/0.4 ML SQ ONE (01:51)
[2018-06-21] MEDS ORDERED: D50W 25 GM/50 ML SYRINGE IV PRN (02:47)
[2018-06-21] MEDS ORDERED: ACETAMINOPHEN 500 MG TAB PO PRN (02:47)
[2018-06-21] MEDS ORDERED: ONDANSETRON 4 MG/2 ML VIAL IV PRN (02:47)
[2018-06-21] MEDS ORDERED: GLUCAGON 1 MG/VIAL IM PRN (02:47)
[2018-06-21] MEDS ORDERED: ZOLPIDEM TARTRATE 5 MG TABLET PO PRN (06:01)
[2018-06-21] MEDS ORDERED: NITROGLYCERIN 0.4 MG/TAB SL PRN ×2 (06:01→06:38)
--- NOTE | 2018-06-21 06:07 | RAD REPORT ---
EXAM DESCRIPTION: RAD - Chest Single View - 06/21/2018 12:30 am CLINICAL HISTORY: Cough, shortness of breath, history of [facility] in the [facility] COMPARISON: April 29, 2018 TECHNIQUE: AP portable chest image was obtained 0028 hours . FINDINGS: Lung volumes are low. No peripheral consolidation or mass. There is an increase in opacifi cation in the right hemithorax in part due to shallow inspiration. Cardiac silhouette is enlarged. Va sculature is prominent. Trachea is midline. No measurable pleural effusion and no pneumothorax. No fr ee air under the diaphragm. No acute aortic findings suspected. IMPRESSION: Shallow inspiration film showing asymmetric interstitial and alveolar opacification in t he right chest. Cardiomegaly is present. Findings could reflect an asymmetric failure or volume overload. Aspiration or infectious pneumonia a re considered lesser in likelihood.
--- NOTE | 2018-06-21 07:13 | EKG ---
Test Date: 2018-06-21 Test Time: 00:10:53 Park Interpreter: MAREN MEASUREMENT RESULTS: Intervals: Rate: 117 TX: 164 QRSD: 90 QT: 326 QTc: 454 Cook Sta: P: 40 TX: 164 QRS: -6 T: 111 INTERPRETIVE STATEMENTS: Sinus tachycardia Possible Left atrial enlargement Anteroseptal infarct, age undetermined ST & T wave abnormality, consider lateral ischemia Abnormal ECG Compared to ECG 04/28/2018 03:50:25 ST (T wave) deviation now present Possible ischemia now present Myocardial infarct finding still present Electronically Signed On 06-21-18 07:12:56 LANDSCAPE TECHNICIAN by Kevin Esqueda
[2018-06-21] MEDS: MORPHINE 4 MG/ML SYR IV PRN ×3 (07:15→18:18)
[2018-06-21] MEDS: PROMETHAZINE 25 MG/ML VIAL IV PRN ×3 (07:15→18:19)
[2018-06-21] MEDS: INSULIN -REGULAR HUMAN 50 UNIT/0.5 ML ML SQ SCH ×4 (07:30→21:00)
[2018-06-21] MEDS: ATORVASTATIN 80 MG TAB PO SCH (09:00)
[2018-06-21] MEDS: FUROSEMIDE 40 MG TABLET PO SCH ×2 (09:00→22:10)
[2018-06-21] MEDS ORDERED: METOPROLOL TAR 50 MG TAB PO SCH (09:00)
[2018-06-21] MEDS: METOPROLOL TAR 50 MG TAB PO SCH ×2 (09:00→22:12)
[2018-06-21] MEDS ORDERED: FUROSEMIDE 40 MG/4 ML VIAL IV SCH (09:00)
[2018-06-21] MEDS: ASPIRIN EC 81 MG TAB PO SCH (09:00)
[2018-06-21] MEDS: DOCUSATE NA/SENNA CONC 1 TAB PO SCH ×2 (09:00→22:10)
[2018-06-21] MEDS: HYDROCODONE/APAP 7.5/325 MG TAB PO SCH ×2 (09:00→22:11)
[2018-06-21] MEDS ORDERED: LACTULOSE 20 GM/30 ML UCUP PO PRN (09:00)
[2018-06-21] MEDS: cloNIDine HCl 0.1 MG TAB PO SCH ×3 (09:00→22:12)
[2018-06-21] MEDS ORDERED: CLOPIDOGREL 75 MG TABLET PO SCH (09:00)
[2018-06-21] MEDS: SERTRALINE HCL 50 MG TAB PO SCH (09:00)
[2018-06-21] MEDS: AMLODIPINE 10 MG TAB PO SCH (09:00)
[2018-06-21] MEDS: FAMOTIDINE 20 MG/2 ML VIAL IV SCH (09:00)
[2018-06-21] MEDS ORDERED: ASPIRIN 81 MG CHEWABLE TABLET PO SCH (09:00)
[2018-06-21] MEDS: SEVELAMER CARBONATE 800 MG TABLET PO SCH ×3 (09:00→16:51)
[2018-06-21] MEDS: HYDRALAZINE HCL 25 MG TABLET PO SCH ×2 (09:00→22:10)
[2018-06-21] MEDS: CLOPIDOGREL 75 MG TABLET PO SCH (10:29)
[2018-06-21] MEDS ORDERED: NA CHLORIDE 0.9% 1,000 ML IV PRN (10:56)
[2018-06-21] MEDS ORDERED: ALBUMIN HUMAN 25% 50 ML IV SCH (11:00)
[2018-06-21 11:28] LABS: Urine Appearance CLOUDY; Urine Bilirubin NEGATIVE (NEG); Urine Blood 1+ (NEG); Urine Color YELLOW; Urine Glucose TRACE (NEG); Urine Protein 3+ (NEG); Urine Specific Gravity 1.025 (1.005-1.030); Urine Urobilinogen 0.2 mg/dL (0.2-1.0); Urine pH 5.5 (5.0-7.0)
[2018-06-21 11:43] LABS: Urine Amorphous Sediment 3+ /HPF (NONE SEEN); Urine Bacteria NONE SEEN /HPF (NONE SEEN); Urine Culture Reflex Order NOT NEEDED; Urine RBC <5 /HPF (NONE SEEN)
--- NOTE | 2018-06-21 11:50 | ECHO ---
HEIGHT: 6 ft 3 in WEIGHT: 211 lb 11.2 oz DATE OF STUDY: 06/[address]: Baldemar Batres MD 2-DIMENSIONAL: YES M.MODE: YES DOPPLER: YES COLOR FLOW: YES TDS: NO PORTABLE: NO DEFINITY: NO BUBBLE STUDY: NO DIAGNOSIS: CONGESTIVE HEART FAILURE, CARDIOMEGALY CARDIAC HISTORY: CATHERIZATION: NO SURGERY: NO PROSTHETIC VALVE: NO PACEMAKER: NO MEASUREMENTS (cm) DIASTOLIC (NORMALS) SYSTOLIC (NORMALS) IVSd 1.3 (0.6-1.2) LA Diam 4.6 (1.9-4.0) LVEF 53% LVIDd 5.6 (3.5-5.7) LVIDs 4.0 (2.0-3.5) %FS 28% LVPWd 1.2 (0.6-1.2) Ao Diam 3.3 (2.0-3.7) 2 DIMENSIONAL ASSESSMENT: RIGHT ATRIUM: NORMAL LEFT ATRIUM: DILATED RIGHT VENTRICLE: NORMAL LEFT VENTRICLE: LEFT VENTRICULAR HYPERTROPHY TRICUSPID VALVE: NORMAL MITRAL VALVE: NORMAL PULMONIC VALVE: NORMAL AORTIC VALVE: NORMAL PERICARDIAL EFFUSION: SMALL AORTIC ROOT: NORMAL LEFT VENTRICULAR WALL MOTION: APICAL AKINESIS. DOPPLER/COLOR FLOW: MILD MITRAL AND TRICUSPID REGURGITATION. ESTIMATED RIGHT VENTRICULAR SYSTOLIC PRESSURE 52mmHg (MODERATE PULMONARY HYPERTENSION. COMMENTS: NORMAL LEFT VENTRICULAR EJECTION FRACTION WITH WALL MOTION ABNORMALITY. LEFT VENTRICULAR HYPERTROPHY. MILD MITRAL AND TRICUSPID REGURGITATION. MODERATE PULMONARY HYPERTENSION. SMALL PERICARDIAL EFFUSION. TECHNOLOGIST: VALERIA SIMPSON
[2018-06-21] MEDS ORDERED: ENOXAPARIN 40 MG/0.4 ML SQ SCH (17:00)
[2018-06-21] MEDS: HOME MED 1 EA UNK (Travoprost (Benzalkonium) [Travatan 0.004% Eye Drop] 1 DROP) EACH EYE SCH (21:00)
[2018-06-21] MEDS: AMITRIPTYLINE 10 MG TAB PO SCH (22:10)
--- NOTE | 2018-06-22 03:12 | HP ---
Date of Admission: 06/21/2018 Chief Complaint: Nausea, vomiting. History Of Present Illness: This is a 53-year-old male patient with multiple comorbidities, came int o emergency room with nausea, vomiting and not able to keep anything down. The patient has a graft p lacement in right upper extremity that was placed a few months ago and ever since that time, his righ t upper extremity was swollen but the swelling got worse recently associated with some pain. So, he went to [place] to [facility] where he had the surgery and the surgeon who originally placed that graft saw him and admitted him to the hospital. He was in the hospital for few days and had a procedure done and was told that certain blood vessel was blocked and he was able to open it up , and he was also told that in the future he is at risk of having recurrence of blockage again. In a ny case, he was released to come home from [place] yesterday and he already had some nausea, vomiting while he was in the hospital in [place] and after he came home this nausea, vomiting continued to ge t worse, and his daughter contacted me last night around 11 o'clock and she was advised to have the p atient come to the emergency room. I did call the ER physician, details were discussed and after the patient was evaluated in the ER, was admitted to the hospital. He denies any chest pain or shortnes s of breath. Denies any abdominal pain. Medications: List reviewed. Allergies: TO SULFA. Review of Systems: GI: As mentioned above. All other systems reviewed and negative. Social History: Negative for smoking and alcohol use. Family History: Significant for throat cancer, tuberculosis, hypertension, diabetes mellitus. Past Surgical History: Significant for rotator cuff surgery, appendectomy, eye surgery, AV graft cristo cement in right upper extremity in February 2018. Cholecystectomy due to biliary dyskinesia done in March 2018. Past Medical History: Significant for end-stage renal disease on hemodialysis, hypertension, type 2 diabetes mellitus, chronic back pain, coronary artery disease, anemia due to chronic kidney disease, hyperlipidemia, gastritis. Physical Examination: Vital signs: This morning temperature 99.2, pulse 116, respiratory rate 15, blood pressure 186/93, o xygen saturation 93%, weight 211 pounds, height 6 feet 3 inches. General: Awake, alert, oriented, not in distress. HEENT: Head atraumatic, normocephalic. Conjunctivae nonerythematous. Sclerae white. Mouth, no thr ush or edema noted. Ears/Nose, no mass, lesion, discharge noted. Neck: Supple. No JVD, lymph nodes, bruit, thyromegaly noted. Lungs: Bilateral good equal air entry. Clear to auscultation. No rhonchi. No rales. Heart: Normal heart sounds, no murmur or gallop. Abdomen: Soft, bowel sounds normal. No guarding, rigidity, tenderness, mass, hepatosplenomegaly, dis tention, or bruit noted. Extremities: The patient has very minimum edema of right upper extremity. This is significantly bet ter than what it was before. Skin: No rash, ulcer, cellulitis. Lymphatics: No lymph node enlargement in neck, supraclavicular, infraclavicular region. Neuro: No focal neurological deficit. Chest: Unremarkable. External Genitalia: Deferred. Rectal: Deferred. Laboratory Data: White count 7, hemoglobin 11, platelets 217. Sodium 137, potassium 5, chloride 98, bicarb 25, BUN 47, creatinine 7.32, glucose 136. Liver function tests unremarkable. Initial tropon in 0.96, second troponin 1.96. Last troponin 5.77. ProBNP 159249. Chest x-ray: Shallow inspiratio n, asymmetric interstitial and alveolar opacification and cardiomegaly. EKG: Sinus tachycardia, pos sible left atrial enlargement, anteroseptal infarct. Impression: 1.Non-ST elevated myocardial infarction. 2.Nausea with vomiting. 3.End-stage renal disease, on hemodialysis. 4.Coronary artery disease. 5.Hypertension. 6.Type 2 diabetes mellitus. 7.Anemia due to chronic kidney disease. 8.Hyperlipidemia. 9.Gastritis. 10.Chronic back pain. Plan: We will admit patient to hospital for further evaluation and management of this problem. The patient is appropriate for inpatient and is expected to spend 2 midnights in hospital. Consult Cardi ology, consult Nephrology. Continue home medications per order. We will continue his aspirin and Pl avix, and the patient reports that he has been taking it regularly. We will continue his metoprolol. The patient's last dialysis was yesterday. He will need another dialysis either today or tomorrow. Give symptomatic treatment for his nausea, vomiting and I will see him tomorrow for followup. Deta ils and plan of treatment discussed with him. ERNESTO/NESSA Voice ID: [id number]
--- NOTE | 2018-06-22 03:27 | CON ---
Date of Consultation: 06/21/2018 NEPHROLOGY CONSULTATION Additional Consulting Physician: Garo Chavarria MD. Reason For Consultation: Elevated BUN and creatinine, hemodialysis management. History Of Present Illness: This is a pleasant 53-year-old gentleman known to me from the dialysis w ith significant past medical history of end-stage renal disease, on hemodialysis Tuesday, Tuesday, riday through [facility]; diabetes complicated with neuropathy and nephropathy; hypertension; coronary artery disease complicated with congestive heart failure, diastolic dysfunction; secondary hyperparat hyroidism; peripheral vascular disease; hyperlipidemia. The patient came to the hospital with right arm swelling and pain with nausea and vomiting. The patient admitted. The patient due for the dialy sis today. The patient denied any fever, any chills. Lab being stable with mild anemia, marginal hy perkalemia. Past Medical History: As above. Social History: Denies smoking. Denies drinking. Denies drugs abuse. Family History: Positive for coronary artery disease. Past Surgical History: Includes: 1.PermCath placement. 2.AV fistula creation. 3.Cholecystectomy. Review of Systems: Head and Neck: No red eye. No ear pain. GI: Has nausea, has vomiting. : No polyuria. No dysuria. No hematuria. RAYON WINDER: Not applicable. Respiratory: No shortness of breath. Cardiovascular: Has chest tightness. Endocrine: No polydipsia. Skin: No rash. Neuro: Has neuropathy. Musculoskeletal: Has low back pain. Physical Examination: General: When I saw the patient, the patient was lying in bed. Vital Signs: Blood pressure of 109/60, pulse of 65, afebrile. Chest: Clear to auscultation. Heart: S1, S2. Systolic murmur. Abdomen: Soft, nontender. Extremities: No edema. Neurological: Alert, oriented x3. Nonfocal. Medications: Home medications include amlodipine, Lasix, atorvastatin, Plavix, hydralazine, aspirin, metoclopramide, Ranexa, nitroglycerin, amitriptyline. Current medications include amitriptyline, albumin, Lasix, metoprolol, lactulose, Renvela, and Ambien . Laboratory Data: Sodium 137, potassium 5, bicarb 25, BUN 47, creatinine 7.3, calcium 9, magnesium of 2. WBC 7, H and H 11/34.3, platelet of 217. Assessment And Plan: 1.End-stage renal disease with marginal hyperkalemia. We will arrange for the dialysis on low-potas sium bath and we will follow up. 2.Hypertension, controlled, optimal. Continue current medication. 3.Secondary hyperparathyroidism, stable. 4.Right arm swelling secondary to arteriovenous fistula creation coming down. We will continue to m onitor. The patient was seen by Vascular. No deep venous thrombosis. 5.Anemia of chronic kidney disease. No need for GATO. 6.Gastroenteritis. We will follow up with the primary. 7.Diabetes as by primary. DANIEL/PHUONGL Voice ID: [id number] Report ID: [id number]
[2018-06-22 04:11] LABS: Absolute Lymphocytes (CBC) 1.2 K/uL (0.7-4.9); Absolute Monocytes 0.7 K/uL (0.1-1.3); Absolute Neutrophil 1.9 K/uL (1.8-8.0); Basophils % 1.1 % (0-1.3); Eosinophils % 14.5 % (0-4.4); Hematocrit 30.5 % (39.6-49.0); Lymphocytes % 26.1 % (15.3-44.8); MPV 7.9 fL (7.6-11.3); Monocytes % 15.8 % (3.3-12.3)
[2018-06-22 04:56] LABS: Potassium 4.8 mmol/L (3.5-5.1)
[2018-06-22 05:03] LABS: Anisocytosis 1+; Blood Morphology Comment NOTED (NOT SEEN); Platelet Estimate ADEQ
[2018-06-22] MEDS: INSULIN -REGULAR HUMAN 50 UNIT/0.5 ML ML SQ SCH ×4 (07:30→21:00)
--- NOTE | 2018-06-22 08:15 | CON ---
CARDIOLOGY CONSULT Reason For Consultation: Abnormal troponins. History Of Present Illness: Mr. Bah is a gentleman, who has end-stage renal disease, on dialysis. Recently, he has been having lots of trouble with access catheters. In his right arm, he has either an AV fistula or a graft material, it recently had to be revised and then a thrombus developed in th e right subclavian vein that had to be removed by thrombectomy that was yesterday at a hospital in [facility]. He has had peripheral catheters inserted under both subclavian veins, both removed. He is kn own to have coronary heart disease. We have never done an intervention because at a cardiac cath we saw a microvascular disease. There were not any arteries big enough to handle a stent or be a target for revascularization, so we have been treating his angina with medications and he has done well wit h that. He was not having anything that sounded like unstable angina, but when he came to the hospit al, he was throwing up, nauseated and his troponins were gone up. A troponin of 5.77 has been seen. His troponin when he got here was 0.95. Physical Examination: General: He is alert, oriented, pleasant. Denies chest pain or shortness of breath. Nausea has marvin e away. HEENT: Unremarkable. Lungs: Normal breath sounds. Heart: No significant murmur or rub. Abdomen: Soft. Extremities: Mild edema. Distal pulses are palpable. Social History: The patient has never been a tobacco user. Past Medical History: He has underlying diabetes, dyslipidemia, and renal failure. Outpatient Medications: Ambien, travoprost, sertraline, sennoside with docusate, Ranexa 1000 b.i.d., nitroglycerin patch, nitroglycerin sublingual, metoprolol 100 b.i.d., metoclopramide, hydralazine 75 t.i.d., furosemide 40 b.i.d., famotidine, Plavix, clonidine, atorvastatin 80, aspirin 325, amlodipin e 10, promethazine, Zofran, lactulose, Prevacid, amitriptyline, sevelamer, and hydrocodone. Physical Examination: Vital Signs: 6 feet 3 inches, 211 pounds. Present blood pressure 140/73. Laboratory Data: His electrocardiogram does not look very different from older EKGs. There is evide nce of anteroseptal infarct. It has been present for at least several years. Impression: The patient has had an acute coronary syndrome. He does not get chest pain with it so m uch, has nausea. He is not a good candidate for a cardiac cath or any kind of intervention, so I wou ld recommend that we try and stabilize him with medications. I am afraid if we did a cardiac cath th at would be for no good reason. I will discuss that with Dr. Love, review the old film, the patie nt prefers this approach as well. DANA/NESSA Voice ID: [id number] Report ID: [id number]
[2018-06-22] MEDS: AMLODIPINE 10 MG TAB PO SCH (08:25)
[2018-06-22] MEDS: DOCUSATE NA/SENNA CONC 1 TAB PO SCH ×2 (08:25→22:54)
[2018-06-22] MEDS: cloNIDine HCl 0.1 MG TAB PO SCH ×2 (08:26→13:21)
[2018-06-22] MEDS: HYDRALAZINE HCL 25 MG TABLET PO SCH ×2 (08:26→22:53)
[2018-06-22] MEDS: ASPIRIN EC 81 MG TAB PO SCH (08:26)
[2018-06-22] MEDS: CLOPIDOGREL 75 MG TABLET PO SCH (08:27)
[2018-06-22] MEDS: ATORVASTATIN 80 MG TAB PO SCH (08:27)
[2018-06-22] MEDS: SERTRALINE HCL 50 MG TAB PO SCH (08:28)
[2018-06-22] MEDS: FUROSEMIDE 40 MG TABLET PO SCH ×2 (08:28→22:59)
[2018-06-22] MEDS: HYDROCODONE/APAP 7.5/325 MG TAB PO SCH ×2 (08:28→22:54)
[2018-06-22] MEDS: FAMOTIDINE 20 MG/2 ML VIAL IV SCH (08:28)
[2018-06-22] MEDS: SEVELAMER CARBONATE 800 MG TABLET PO SCH ×3 (08:42→16:19)
[2018-06-22] MEDS: METOPROLOL TAR 50 MG TAB PO SCH ×2 (08:42→22:54)
[2018-06-22] MEDS: MORPHINE 4 MG/ML SYR IV PRN (13:25)
[2018-06-22] MEDS: PROMETHAZINE 25 MG/ML VIAL IV PRN ×2 (13:26→22:24)
[2018-06-22] MEDS: HOME MED 1 EA UNK (Travoprost (Benzalkonium) [Travatan 0.004% Eye Drop] 1 DROP) EACH EYE SCH (21:00)
[2018-06-22] MEDS: AMITRIPTYLINE 10 MG TAB PO SCH (22:54)
--- NOTE | 2018-06-23 00:36 | PN ---
Date of Progress Note: 06/22/2018 Subjective: The patient was seen this morning for followup. No new complaints or problems reported. No chest pain. Objective: Vital Signs: Reviewed. HEENT: Examination unremarkable. Lungs: Clear to auscultation. Heart: Sounds normal. Abdomen: Soft. Bowel sounds normal. No guarding, rigidity, tenderness or distention. Extremity Exam: No leg edema. Impression: 1.Non-ST elevation myocardial infarction. 2.Coronary artery disease. 3.End-stage renal disease, on hemodialysis. 4.Hypertension. 5.Diabetes mellitus. Plan: We will continue current medications. I did talk to Dr. Love this morning from Cardiology Service and the patient was declared as nonoperable coronary artery disease candidate 3 years ago whe n he had cardiac cath and he was advised to go for transplant evaluation, which he has not decided to do so far and I did talk to him today and explained it to him that it is very important for him to f ollow up with maintenance controller on outpatient basis and to start talking about transplant evaluation if he is willing to go through that treatment as I am concerned with this nonoperable coronary artery dise ase, he is at high risk for having major coronary event which could be life-threatening and I did exp lisette that to him and strongly advised him to follow up with Cardiology on outpatient basis. I will see him tomorrow for followup, possible discharge to go home tomorrow. ERNESTO/MODL Voice ID: [id number] Report ID: [id number]
--- NOTE | 2018-06-23 02:40 | PN ---
Date of Progress Note: 06/22/2018 Subjective: The patient still has nausea without any vomiting. Physical Examination: Vital Signs: Blood pressure 106/56, pulse of 58. Chest: Clear to auscultation. Heart: S1, S2. Systolic murmur. Abdomen: Soft, nontender. Extremities: No edema. Current Medications: The patient is on include promethazine, Plavix, heparin, clonidine 0.1 t.i.d., atorvastatin, metoprolol 100 b.i.d., Ranexa, Tylenol, amitriptyline, sertraline, lactulose, Lasix, an d Pepcid. Laboratory Data: H and H 9.7/30.5. Sodium 137, potassium 4.8, bicarb 30, BUN 42, creatinine 5.8, an d calcium 8.2. Assessment And Plan: 1.End-stage renal disease, stable. We will continue the patient on dialysis. The patient is schedu led for dialysis tomorrow. 2.Hypertension, controlled, optimal. Continue current medication. 3.Secondary hyperparathyroidism, stable. We will continue to monitor. 4.Anemia of chronic kidney disease. Continue Epogen. 5.Gvy-XS-iwprhoeil myocardial infarction. We will follow up with Cardiology. 6.Gastroparesis. We will follow up with the primary. Continue symptomatic treatment. BRAYAN Voice ID: [id number] Report ID: [id number]
[2018-06-23 05:28] VITALS: BMI 26.4
[2018-06-23] MEDS: INSULIN -REGULAR HUMAN 50 UNIT/0.5 ML ML SQ SCH ×3 (07:30→16:30)
[2018-06-23] MEDS: SEVELAMER CARBONATE 800 MG TABLET PO SCH ×3 (07:55→16:59)
[2018-06-23] MEDS: HYDRALAZINE HCL 25 MG TABLET PO SCH (09:00)
[2018-06-23] MEDS ORDERED: cloNIDine HCl 0.1 MG TAB PO SCH (09:00)
[2018-06-23] MEDS: AMLODIPINE 10 MG TAB PO SCH (09:00)
[2018-06-23] MEDS: METOPROLOL TAR 50 MG TAB PO SCH (09:00)
[2018-06-23] MEDS: FAMOTIDINE 20 MG/2 ML VIAL IV SCH (10:37)
[2018-06-23] MEDS: ASPIRIN EC 81 MG TAB PO SCH (10:37)
[2018-06-23] MEDS: ATORVASTATIN 80 MG TAB PO SCH (10:37)
[2018-06-23] MEDS: HYDROCODONE/APAP 7.5/325 MG TAB PO SCH (10:38)
[2018-06-23] MEDS: CLOPIDOGREL 75 MG TABLET PO SCH (10:38)
[2018-06-23] MEDS: SERTRALINE HCL 50 MG TAB PO SCH (10:38)
[2018-06-23] MEDS: FUROSEMIDE 40 MG TABLET PO SCH (10:38)
[2018-06-23] MEDS: DOCUSATE NA/SENNA CONC 1 TAB PO SCH (10:39)
[2018-06-23 10:58] VITALS: O2SAT 96
--- NOTE | 2018-06-23 13:49 | P.PN ---
Subjective Date of Service: 06/23/18 Subjective: Improving seen and examined during HD No nausea or vomiting for the last 2 days tolerating HD with no complications cleared for discharge from nephrology point of view Physical Examination - Vital Signs Temperature: 97.3 F Blood Pressure: 111/60 Pulse: 54 Respirations: 18 Pulse Ox (%): 97 - Physical Exam General: In no apparent distress, Oriented x3 HEENT: Atraumatic Neck: Supple, Without JVD or thyroid abnormality Respiratory: Clear to auscultation bilaterally Cardiovascular: No edema, Regular rate/rhythm, Normal S1 S2 Gastrointestinal: Soft and benign Assessment And Plan - Current Problems (Diagnosis) (1) Vomiting Current Visit: Yes Status: Acute (2) Diabetic gastroparesis Onset Date: 03/14/18 Current Visit: No Status: Chronic (3) ESRD (end stage renal disease) Onset Date: 01/25/18 Current Visit: No Status: Chronic - Plan Assessment And Plan: End-stage renal disease HD MWF renal diet UF 2kg Hypertension controlled Continue current medication. Anemia of chronic kidney disease. Continue Epogen. NSTEMI cardiology fu Gastroparesis. resolved Cont mgm as per primary
[2018-06-23 18:51] VITALS: BP 145/65; TEMP 97.6
[2018-06-23 21:20] LABS: HBsAG Nonreactive (Nonreactive)
== END 2018-06-23 18:21 | disposition home or self-care (01) | DRG 280 ==
LOC: ER 23:35 → ERHOLD 06-21 00:19 → 4TH 06-21 02:14
PROVIDERS: ADMIT Internal Medicine; ATTEND Internal Medicine
PROC: 5A1D70Z Performance of Urinary Filtration, Intermittent, Less than 6 Hours Per Day (ICD-10-PCS; 2018-06-21)
PROC: 5A1D70Z Performance of Urinary Filtration, Intermittent, Less than 6 Hours Per Day (ICD-10-PCS; principal; 2018-06-23)
DX: I21.4 Non-ST elevation (NSTEMI) myocardial infarction (principal); N18.6 End stage renal disease; I12.0 Hypertensive chronic kidney disease with stage 5 chronic kidney disease or end stage renal disease; N25.81 Secondary hyperparathyroidism of renal origin; K29.70 Gastritis, unspecified, without bleeding; E11.43 Type 2 diabetes mellitus with diabetic autonomic (poly)neuropathy; K31.84 Gastroparesis; E11.22 Type 2 diabetes mellitus with diabetic chronic kidney disease; I25.10 Atherosclerotic heart disease of native coronary artery without angina pectoris; D63.1 Anemia in chronic kidney disease; E78.5 Hyperlipidemia, unspecified; M54.9 Dorsalgia, unspecified; G89.29 Other chronic pain
CPT/HCPCS: 36415; 71045; 80048; 80076; 81001; 82962; 83690; 83735; 83880; 84484; 85025; 85610; 86317; 86704; 86706; 87340; 90935; 93005; 93306; 96365; 96372; 96375; 99285; J1644; J1650; J2405; J2550; J7030

== ENCOUNTER 2018-08-28 12:18 | Emergency (ER) | payer BC, OTHER ==
--- OUTSIDE RECORDS SUMMARY | 2018-08-28 12:21 | XMS REPORT | Clinical Summary ---
:1965 Author Organization [facility] Address [address] [place] [address] Care Team Providers Name Role Phone Garo Chavarria MD Primary Care Provider Allergies Active Allergy Reactions Severity Noted Date Comments Sulfa (Sulfonamide Antibiotics) Rash Low 07/17/2017 Medications Medication Sig Dispensed Refills Start Date End Date Status amLODIPine (NORVASC) Take 10 mg by 0 Active 10 mg tablet mouth daily. furosemide (LASIX) 40 Take 40 mg by 0 Active mg tablet mouth 2 (two) times a day. sertraline (ZOLOFT) Take 50 mg by 0 Active 50 MG tablet mouth daily. atorvastatin Take 80 mg by 0 Active (LIPITOR) 80 MG mouth daily. tablet clopidogrel (PLAVIX) Take 75 mg by 0 Active 75 mg tablet mouth daily. docusate sodium Take 100 mg by 0 Active (COLACE) 100 MG mouth 2 (two) capsule times a day. ranolazine (RANEXA) Take 1,000 mg by 0 Active 1,000 mg 12 hr tablet mouth daily. metoprolol tartrate Take 100 mg by 0 Active (LOPRESSOR) 100 mg mouth 2 (two) tablet times a day. hydrALAZINE Take 50 mg by 0 Active (APRESOLINE) 25 MG mouth 2 (two) tablet times a day. metoclopramide Take 5 mg by 0 Active (REGLAN) 5 MG tablet mouth 3 (three) times a day. aspirin 325 MG tablet Take 325 mg by 0 Active mouth daily. INSULIN SUBCUTANEOUS Inject under the 0 Active PUMP, HUMALOG, 100 skin UNITS/ML INSULIN PUMP continuously. INFUSION (HumaLOG) Insulin Pump - V-GO 40 units thru out the day. travoprost Administer 1 0 Active (TRAVATAN-Z) 0.004 % drop to both eyes nightly. nitroglycerin Place 0.4 mg 0 Active (NITROSTAT) 0.4 MG SL under the tongue tablet every 5 (five) minutes as needed for chest pain. nitroglycerin Place 1 patch on 0 Active (NITRODUR) 0.2 mg/hr the skin daily as needed (Chest Pain). zolpidem (AMBIEN) 5 Take 5 mg by 0 Active MG tablet mouth nightly. ondansetron (ZOFRAN) Take 4 mg by 0 Active 4 MG tablet mouth every 6 (six) hours as needed for nausea or vomiting. promethazine Take 25 mg by 0 Active (PHENERGAN) 25 MG mouth every 8 tablet (eight) hours as needed for nausea or vomiting. lactulose 10 gram/15 Take 20 g by 0 Active mL (15 mL) solution mouth daily as needed (Constipation). famotidine (PEPCID) Take 40 mg by 0 Active 40 MG tablet mouth nightly. ergocalciferol Take 50,000 0 Active (VITAMIN D2) 50,000 Units by mouth unit capsule every 30 (thirty) days. acetaminophen-codeine Take 1-2 tablets 20 tablet 0 08/25/2017 08/30/2017 (TYLENOL WITH CODEINE by mouth every 6 #3) 300-30 mg per (six) hours as tablet needed for moderate pain for up to 5 days. docusate sodium Take 1 capsule 14 capsule 0 08/25/2017 09/01/2017 (COLACE) 100 MG (100 mg total) capsule by mouth 2 (two) times a day for 7 days. Active Problems Problem Noted Date Uncontrolled diabetes mellitus 05/25/2018 Diabetic retinopathy associated with controlled type 2 diabetes mellitus 05/25 End-stage renal disease on hemodialysis 08/25/2017 Gastroparesis 05/30/2017 Pleurisy with effusion 05/11/2017 Pulmonary edema 05/11/2017 Obesity 02/24/2017 Chronic coronary artery disease 02/24/2017 Hyperlipidemia 02/24/2017 Hypertension 02/24/2017 Intractable vomiting with nausea 02/24/2017 [id number]-mc-[id number] kidney injury 02/24/2017 Diabetes mellitus 02/15/2017 Encounters Date Type Specialty Care Team Description 05/25/2018 Anesthesia Event Plastic Surgery Raz Brown 05/25/2018 Surgery Plastic Surgery Daquan Mary AND ARIS Arrington MD INDICATED PROCEDURES, RIGHT EYE 05/25/2018 Hospital Encounter Plastic Surgery Daquan Mary MD 09/15/2017 Office Visit General Surgery Abdiel Ivory Surgery follow- up MD Susan (Primary Dx) after 08/27/2017 Immunizations Name Dates Previously Given Next Due [...] Taken Blood Pressure 136/61 05/25/2018 2:05 PM [facility] Pulse 58 05/25/2018 2:05 PM [facility] Temperature 37.2 C (98.9 F) 05/25/2018 2:05 PM [facility] Respiratory Rate 12 05/25/2018 2:05 PM [facility] Oxygen Saturation 96% 05/25/2018 2:05 PM [facility] P[facility] Inhaled Oxygen Concentration - - Weight 97.2 kg (214 lb 3 oz) 05/25/2018 11:43 AM C[facility] P[facility] Height 190.5 cm (6' 3") 05/25/2018 11:43 AM [facility] P[facility] Body Mass Index 26.77 05/25/2018 11:43 AM C[facility] P[facility]CHER Plan of Treatment Health Maintenance Due Date Last Done Comments DIABETIC RETINAL EYE EXAM 1965 DIABETIC FOOT EXAM 1974 COLON CANCER SCREENING 2014 SHINGLES VACCINES (#1) 2014 INFLUENZA VACCINE 01/11/2018 02/11/2017 Procedures Procedure Name Priority Date/Time Associated Diagnosis Comments VITRECTOMY 05/25/2018 1:00 PM [facility] Vitreous hemorrhage of right eye (HCC) Special Needs REQ 1300 START POC PANEL 4 Routine 05/25/2018 12:09 PM [facility]ER after 08/27/2017 Results POC panel 4 (05/25/2018 12:09 PM CARD PUNCHER) POC sodium 137 135 - 148 mmol/L [facility] POC potassium 4.3 3.5 - 5.0 mmol/L [facility] POC hematocrit 34 (L) 41 - 51 % [facility] Comment: Meter ID: [id number] Senior Radiation Protection Technician: Abisai Girard POC glucose 107 (H) 65 - 99 mg/dL [facility] Performing Organization Address City/State/Zipcode Phone Number [facility] DEPARTMENT OF PATHOLOGY AND [address] [place] [address] GENOMIC MEDICINE [facility] [address] [place] [address] after 08/27/2017 Insurance Payer Benefit Plan / Group Subscriber ID Type Phone Address BCBS AVNI RANGEL CROSS xxxxxxxxxxxx PPO MEDICARE MEDICARE PART A AND B xxxxxxxxxx Medicare [place], [place] Advance Directives Patient has advance care planning documents on file. For more information, please contact:[address] [address]
--- OUTSIDE RECORDS SUMMARY | 2018-08-28 12:21 | XMS REPORT | Clinical Summary ---
:1965 Author Organization [facility] Address [address] [place] [address] Care Team Providers Name Role Phone Bala Traore MD Primary Care Provider Allergies Active Allergy Reactions Severity Noted Date Comments Sulfa (Sulfonamide Antibiotics) 06/08/2017 Medications Medication Sig Dispensed Refills Start Date End Date Status amLODIPine (NORVASC) Take 10 mg by 0 Active 10 MG tablet mouth daily. atorvastatin (LIPITOR) Take 80 mg by 0 Active 80 MG tablet mouth daily. clopidogrel (PLAVIX) Take 75 mg by 0 Active 75 mg tablet mouth daily. metoprolol (LOPRESSOR) Take 100 mg by 0 Active 100 MG tablet mouth 2 (two) times daily. nitroglycerin Place 1 patch onto 0 Active (NITRODUR) 0.2 mg/hr the skin daily as patch needed. aspirin 81 MG EC Take 81 mg by 0 Active tablet mouth daily. nitroglycerin Place 0.4 mg under 0 Active (NITROSTAT) 0.4 MG SL the tongue daily tablet as needed for Chest pain Put 1 [...] times daily. metoclopramide Take 5 mg by mouth 0 Active (REGLAN) 5 MG tablet 3 (three) times daily. ondansetron (ZOFRAN) 4 Take 4 mg by mouth 0 Active MG tablet every 6 (six) hours as needed for Nausea. zolpidem (AMBIEN) 5 MG Take 5 mg by mouth 0 Active tablet every night as needed for Insomnia. Active Problems Problem Noted Date Renal failure 06/08/2017 Social History Tobacco Use Types Packs/Day Years [...] Not on file Implants Implanted Type Area Assistant Project Manager Device Shelf Model / Identifier Expiration Serial / Lot Date Cath Peritoneal Dyls 57cm 2cuf [id number] - Sn/A Catheter N/A: COVIDIEN: SHAZIA 02/17/2021 [id number] / Implanted: Qty: 1 on 06/14/2017 by Abdiel Ivory MD Dialysis Abdomen L N/A / [facility] [id number] Results Not on fileafter 08/27/2017 Insurance Payer Benefit Plan / Subscriber ID Type Phone Address Group BLUE CROSS/BLUE BCBS OS xxxxxxxxxxxx PPO [phone] [address] SHIELD POS/PP[place] [address] MEDICARE MEDICARE A B xxxxxxxxxx Medicare Advance Directives For more information, please contact:[address] [phone] Code Status Date Activated Date Inactivated Comments Full Code 06/08/2017 11:37 PM 06/15/2017 8:31 PM This code status was determined by: Patient
--- OUTSIDE RECORDS SUMMARY | 2018-08-28 12:22 | XMS REPORT | Continuity of Care Document ---
:1965 Author Organization Interface Problems Problem Status Onset Classification Date Comments Source Date Reported HTN, ESRD ON Active 06/18/19 [facility] DIALYSIS, EDEMA 19 OF UPPER EX ARM SWELLING Active 06/18/19 [facility] 19 UNK Active 05/25/20 [facility] 18 TESIO RELOCATION Active 04/04/20 [facility] 18 Gastroparesis Active 05/30/20 Finding 06/05/[address] [facility] [...] nausea and 17 [facility] [place] [id number] Active 02/25/20 Finding 06/05/[address] [facility] kidney injury 17 [facility] [place] HTN Active 02/25/20 Finding 06/05/[address] [facility] [facility] [place] Obesity Active 02/25/20 Finding 06/05/[address] [facility] [facility] [place] Diabetes mellitus Active 02/16/20 Finding 06/05/[address] [facility] [facility] [place] Chest pain Active 08/28/19 Finding 06/05/[address] [facility] 16 [facility] [place] Hyperglycemia Active Finding 06/05/[address] [facility] [address] [facility] [place] Uncontrolled Active Finding 06/05/[address] [facility] [address] diabetes mellitus [facility] [place] Renal Active Finding 06/05/[address] [facility] [address] insufficiency [facility] [place] ESSENTIAL [facility] ([facility] HYPERTENSION END STAGE RENAL Active [facility] DISEASE LOCALIZED EDEMA [facility] Medications Medication Details Route Status Patient Ordering Order Source Instructions Provider Date Metoclopramide Hcl THREE TIMES A Active Nunez [facility] St[facility] DAY 2017 [facility] [place] Ondansetron Hcl Q6H PRN For Active [facility] Vomiting 2017 [facility] [place] Furosemide TWICE DAILY Active Nunez [facility] St[facility] 2017 [facility] [place] Zolpidem Tartrate AT BEDTIME Active Alroumoh [facility] St[facility] 2017 [facility] [place] Aspirin DAILY Active [facility] St[facility] 2017 [facility] [place] Nitroglycerin DAILY Active [facility] St[facility] NEEDED PRN For 2017 [facility] Chest Pain [place] Promethazine Hcl EVERY [address] NEEDED PRN 2017 [facility] For Nausea [place] Pantoprazole DAILY Active St. 2017 [facility] [place] Ranolazine TWICE DAILY Active [facility] St[facility] 2017 [facility] [place] Insulin Lispro DAILY Active [facility] St[facility] 2017 [facility] [place] Furosemide TWICE DAILY Active Prezas [facility] St[facility] 2017 [facility] [place] Hydralazine TWICE DAILY Active [facility] St[facility] 2017 [facility] [place] Furosemide TWICE DAILY AT Active [facility] St[facility] 9am & 5pm 2017 [facility] [place] Atorvastatin DAILY Active [facility] St[facility] Calcium 2017 [facility] [place] Metoprolol Tartrate TWICE DAILY Active [facility] St[facility] 2017 [facility] [place] Nitroglycerin Patch DAILY Active [facility] St[facility] NEEDED PRN For 2017 [facility] [place] Amlodipine DAILY Active [facility] St[facility] 2017 [facility] [place] Clopidogrel DAILY Active [facility] St[facility] Bisulfate 2017 [facility] [place] Furosemide TWICE DAILY Active [facility] 2017 [facility] [place] Hydralazine THREE TIMES A Active [facility] DAY 2017 [facility] [place] Pantoprazole Sodium DAILY Active [facility] 2017 [facility] [place] Metoprolol Tartrate TWICE DAILY Active Strange [facility] 2017 [facility] [place] Clopidogrel DAILY Active [facility] Bisulfate 2017 [facility] [place] Atorvastatin AT BEDTIME Active St[facility] Calcium 2017 [facility] [place] Amlodipine DAILY Active [facility] St[facility] 2017 [facility] [place] Clopidogrel DAILY Active [facility] St[facility] Bisulfate 2017 [facility] [place] Metoprolol Tartrate TWICE DAILY Active [facility] St[facility] 2017 [facility] [place] Sertraline DAILY Active [facility] St[facility] 2017 [facility] [place] Tramadol Hcl EVERY 6 HOURS Active [facility] St[facility] PRN For Pain 2017 [facility] [place] Ranolazine DAILY Active [facility] 2017 [facility] [place] Sub-Q Insulin DAILY Active . Device, 40 Unit 2017 [facility] [place] Cefdinir TWICE [facility] 2016 [facility] [place] Methylprednisolone DAILY [facility] 2016 [facility] [place] Guaifen W/Codeine TWICE DAILY [facility] Syrup PRN For Cough 2016 [facility] [place] Amlodipine Besylate DAILY Active [facility] St[facility] 2016 [facility] [place] Clopidogrel DAILY Active [facility] St[facility] Bisulfate 2016 [facility] [place] Fenofibrate DAILY Active [facility] St[facility] 2016 [facility] [place] Insulin Aspart THREE TIMES Active St. DAILY 2016 [facility] - NEEDED PRN For [place] hyperglycemia Liraglutide DAILY Active [facility] St[facility] 2016 [facility] [place] Ranolazine DAILY Active [facility] St[facility] 2016 [facility] [place] Insulin Detemir AT BEDTIME Active [facility] St[facility] 2016 [facility] [place] Metoprolol Tartrate DAILY Active 08/[facility]/ [facility] [place] Aspirin Tab DAILY Active [facility] 02/14/ [facility] [place] Metoprolol Tartrate EVERY TWELVE Active Prezas 02/14/ [facility] HOURS 2014 [facility] [place] Insulin Detemir AT BEDTIME Active Prezas 02/14/ [facility] [place] Insulin Detemir AT BEDTIME Active Prezas 02/04/ [facility] [place] Atorvastatin DAILY Active [facility] Calcium 2014 [facility] [place] Insulin Detemir AT BEDTIME Active [facility] 2014 [facility] [place] Lisinopril DAILY Active [facility] 2013 [facility] [place] Saxagliptin DAILY Active [facility] Hcl/Metformin Hcl 2013 [facility] [place] Allergies, Adverse Reactions, Alerts Substance Category Reaction Severity Reaction Status Date Comments Source type Reported Sulfa Hives/Aiden Allergy to Active [facility] (Sulfonamid h Substance 7 [facility] e [place] Antibiotics ) Immunizations Immunization Date Given Site Status Last Comments Source Updated Pneumovax 02/18/[address] [facility] [place] Results Order Name Results Value Reference Date Interpretation Comments Source Range Chest Chest 1view Patient Name: ELIZABETH DARBY 06/19 - 1view DX DX - [facility] : 1965; Age: 53 years y/o Male MR: [id number] Read by: Bill Pineda MD Dictated Date/time: 06/19/18 17:45 Electronically Signed by: Bill Pineda MD 06/19/18 17:47 FINAL REPORT Study: Chest 1view DX dated 06/19/2018. Clinical Indication: Coughing - preop; Comparison: 04/20/2018 Enlarged cardiac silhouette and mediastinal structures are stable. Mild bandlike consolidation in the right mid lung may be fluid within the fissure, atelectasis or other nonspecific alveolitis. There i s a small right pleural effusion. Prominence of the interstitium about the right lung may represent a mild asymmetric edema. No focal infiltrate within the left lung. No pneumothorax. SL: [id number] Ext Upper Ext Upper CLINICAL INDICATION: - redness, swelling, tenderness. AV fistula to right upper arm 06/18 Venous Venous /2018 Doppler Doppler Unilat US Unilat US COMPARISON: None. Read by: Erik Batista MD Dictated Date/time: 06/18/18 17:42 Electronically Signed by: Erik Batista MD 06/18/18 17:44 FINAL REPORT TECHNIQUE: Sonographic evaluation of the right upper extremity veins was performed using high resolution B-mode imaging, along with pulse and color Doppler imaging. FINDINGS: The left internal jugular vein, subclavian vein, axillary vein, brachial vein, radial and ulnar veins are patent. There is no echogenic debris to suggest deep venous thrombosis. The basilic and cephalic veins are patent. AV fistula is patent. REFERENCE: DEEP VEINS: internal jugular, subclavian, axillary, brachial, radial, and ulnar SUPERFICIAL: basilic, cephalic IMPRESSION: No deep venous thrombus. Patent AV fistula. 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 Indication: Line placement. Clinical information: Line Placement - Chest 1 view for line placement. Comparison: Chest 2 views 02/21/2018 Findings: Lines/tubes: Left internal jugular tunneled central venous catheters with tips projecting over the expected region of the right atrium. Cardiovascular: Normal cardiac silhouette. Normal thoracic aorta. Mediastinum: No mediastinal or hilar mass or lymphadenopathy. Lungs: No parenchymal mass. No focal consolidation. Bibasilar atelectasis. Pleura: Small right pleural effusion. No pneumothorax. Soft tissues: Normal. Bones: No acute osseous abnormality. Degenerative changes of the thoracic spine. IMPRESSION: Small right pleural effusion. SL: [id number] Chest 2 Chest 2 EXAM: XR CHEST 2 VIEWS 02/21 - views DX views /2017 - DATE: 02/21/2018 3:45 PM CDT : 1965; Age: 52 years y/o Male Read by: Alison Nunez Dictated Date/time: 02/21/18 16:32 Electronically Signed by: Alison Nunez 02/21/18 16:33 FINAL REPORT INDICATION: Coughing - preoperative COMPARISON: None. TECHNIQUE: PA and lateral chest radiographs. FINDINGS: Lines, tubes and hardware: Right IJ line is seen with tip overlying the atriocaval junction. Lungs and pleura: The lungs are clear. No pleural effusion. Heart and mediastinum: The heart size is normal for technique. The mediastinal contours are normal. Pulmonary vascularity is normal. IMPRESSION: No acute cardiopulmonary process. SL: [id number] Laboratory Sodium Level 138 mEq/L 135 - 145 06/[address] [facility] [address] Studies [facility] [place] Laboratory Potassium 5.1 mEq/L 3.6 - 5.0 06/[address] [facility] [address] Studies Level [facility] [place] Laboratory Phosphorus 7.4 mg/dL 2.5 - 4.3 06/[address] [facility] [address] Studies Level [facility] [place] Laboratory Glucose 167 mg/dL 65 - 120 06/[address] [facility] [address] Studies Level [facility] [place] Laboratory Estimat 10 mL/min 90 06/[address] [facility] [address] Studies Glomerular [facility] - Filtration [place] Rate Laboratory Creatinine 6.17 mg/dL 0.61 - 06/[address] [facility] [address] Studies 1. [facility] [place] Laboratory Chloride 104 mEq/L 101 - 111 06/[address] [facility] [address] Studies Level [facility] [place] Laboratory Carbon 23 mEq/L 21 - 31 06/[address] [facility] [address] Studies Dioxide [facility] - Level [place] Laboratory Calcium 9.1 mg/dL 8.5 - 10.5 06/[address] Studies Level [facility] [place] Laboratory Blood Urea 87 mg/dL 6 - 20 06/05 St[facility] Studies Nitrogen [facility] [place] Laboratory Albumin 3.4 g/dL 3.2 - 5.5 06/05 St[facility] Studies [facility] [place] Laboratory Bedside 155 mg/dl 65 - 120 06/[address] [facility] [address] Studies Glucose [facility] [place] Laboratory Urine Urine 06/[address] [facility] [address] Studies Immunoelectr Immunoelec [facility] - ophoresis 24 trophoresi [place] Hr s 24 Hr Laboratory Anti-Double 2 IU/mL 06/[address] [facility] [address] Studies Strand DNA [facility] - Antibody [place] Laboratory Anti-Protein null 06/[address] [facility] [address] Studies ase 3 [facility] - (c-ANCA) [place] Laboratory Anti-Myelope null 06/01 [facility]. Studies roxidase Ab [facility] - (p-ANCA) [place] Laboratory Complement 31 mg/dL 06/[address] [facility] [address] Studies C4 [facility] [place] Laboratory Complement 127 mg/dL 06/[address] [facility] [address] Studies C3 [facility] [place] Laboratory Thyroid 2.92 0.34 - 06/[address] [facility] [address] Studies Stimulating uIU/mL 5.60 [facility] - Hormone [place] (TSH) Laboratory Anti-Nuclear Anti-Nucle 05/30 [facility]. Studies Antibody ar [facility] - Titer Antibody [place] Titer Laboratory Anti-Nuclear Anti-Nucle 05/30 [facility]. Studies Antibody ar [facility] - Pattern Antibody [place] Pattern Laboratory Anti-Nuclear Anti-Nucle 05/[address] [facility] [address] Studies Antibody ar [facility] - Screen Antibody [place] Screen Laboratory Anti-Nuclear Anti-Nucle 05/[address] [facility] [address] Studies Antibody ar [facility] - Pattern 2 Antibody [place] Pattern 2 Laboratory Hepatitis C Hepatitis 05/30 [facility]. Studies Antibody C Antibody /2016 [facility] [place] Laboratory Hepatitis C 0.03 ratio 05/30 [facility]. Studies Ab [facility] - Signal/Cutof [place] f Ratio Laboratory Hepatitis B Hepatitis 05/30 [facility]. Studies Surface B Surface /2016 [facility] - Antigen Antigen [place] Laboratory Hepatitis B Hepatitis 05/30 [facility]. Studies Surface Ag B Surface /2016 [facility] - Confirmation Ag [place] Confirmati on Laboratory Hepatitis B Hepatitis 05/30 [facility]. Studies Core IgM B Core IgM /2016 [facility] - Antibody Antibody [place] Laboratory Hepatitis A Hepatitis 05/30 [facility]. Studies IgM Antibody A IgM /2016 [facility] - Antibody [place] Laboratory HIV-1 RNA, HIV-1 RNA, 05/30 [facility]. Studies Qualitat Qualitat /2016 [facility] - (TMA) (TMA) [place] Comment Comment Laboratory HIV (1&2) Ag HIV (1&2) 05/30 [facility]. Studies and Ab, 4th Ag and Ab, /2016 [facility] - Generation 4th [place] Generation Laboratory HIV (1&2) Ab HIV (1&2) 05/30 [facility]. Studies Differential Ab /2016 [facility] - Comment Differenti [place] al Comment Laboratory Creatine 162 IU/L 22 - 269 05/[address] [facility] [address] Studies Kinase /2016 [facility] Laboratory Vitamin B12 173 pg/ml 180 - 914 05/30 [facility]. Studies Level /2016 [facility] Laboratory Total 0.4 mg/dL 0.3 - 1.2 05/30 [facility]. Studies Bilirubin /2016 [facility] Laboratory Serum Total 6.5 g/dL 6.0 - 8.3 05/30 [facility]. Studies Protein /2016 [facility] Laboratory Globulin 3.1 g/dL 2.3 - 3.5 05/[address] [facility] [address] Studies /2016 [facility] - [place] Laboratory Ferritin 337.4 23.9 - 05/30 [facility]. Studies ng/ml 336.2 /2016 [facility] [place] Laboratory Aspartate 12 IU/L 10 - 42 05/30 [facility]. Studies Amino Transf /2016 [facility] - (AST[facility]SGOT) [facility] Alkaline 54 IU/L 42 - 121 05/30 [facility]. Studies Phosphatase /2016 [facility] Laboratory Albumin/Glob 1.1 1.1 - 1.8 05/30 [facility]. Studies ulin Ratio /2016 [facility] [place] Laboratory Alanine 10 IU/L 10 - 60 05/30 [facility]. Studies Aminotransfe /2016 [facility] rasfabby [place] (ALT/SGPT) Laboratory White Blood 7.9 K/uL 4.3 - 10.9 05/30 [facility]. Studies Count /2016 [facility] [place] Laboratory Red Cell 15.2 % 12.1 - 05/30 [facility]. Studies Distribution 15.2 /2016 [facility] Width [place] Laboratory Red Blood 2.75 M/uL 4.33 - 05/30 [facility]. Studies Count 5.43 /2016 [facility] [place] Laboratory Platelet 314 K/uL 152 - 406 05/30 [facility]. Studies Count /2016 [facility] - [place] Laboratory Neutrophils 56.6 % 41.7 - 05/[address] Studies % 73.7 /2016 [facility] [place] Laboratory Monocytes % 12.0 % 3.3 - 12.3 05/[address] [facility] [address] Studies /2016 [facility] [place] Laboratory Mean 7.1 fL 7.6 - 11.3 05/[address] [facility] [address] Studies Platelet [facility] - Volume [place] Laboratory Mean 85.4 fL 80 - 100 05/[address] [facility] [address] Studies Corpuscular /2016 [facility] - Volume [place] Laboratory Mean 34.1 g/dL 32.0 - 05/[address] [facility] [address] Studies Corpuscular 36.0 /2016 [facility] - Hemoglobin [place] Concent Laboratory Mean 29.1 pg 27.0 - 05/[address] [facility] [address] Studies Corpuscular 35.0 /2016 [facility] - Hemoglobin [place] Laboratory Lymphocytes 25.1 % 15.3 - 05/[address] [facility] [address] Studies % 44.8 /2016 [facility] [place] Laboratory Hemoglobin 8.0 g/dL 13.6 - 05/[address] [facility] [address] Studies 17.9 /2016 [facility] [place] Laboratory Hematocrit 23.5 % 39.6 - 05/[address] [facility] [address] Studies 49.0 /2016 [facility] [place] Laboratory Eosinophils 5.7 % 0 - 4.4 05/[address] [facility] [address] Studies % /2016 [facility] [place] Laboratory Basophils % 0.6 % 0 - 1.3 05/[address] [facility] [address] Studies [facility] [place] Laboratory Absolute 4.5 K/uL 1.8 - 8.0 05/[address] [facility] [address] Studies Neutrophil [facility] - [place] Laboratory Absolute 0.9 K/uL 0.1 - 1.3 05/[address] [facility] [address] Studies Monocytes [facility] - (CBC) [place] Laboratory Absolute 2.0 K/uL 0.7 - 4.9 05/[address] [facility] [address] Studies Lymphocytes [facility] - (CBC) [place] Laboratory Absolute 0.4 K/uL 0 - 0.5 05/30 [facility]. Studies Eosinophils [facility] - (CBC) [place] Laboratory Absolute 0.0 K/uL 0 - 0.5 05/[address] [facility] [address] Studies Basophils [facility] - (CBC) [place] Laboratory Urine WBC null 05/[address] [facility] [address] Studies [facility] - [place] Laboratory Urine null 05/29 [facility]. Studies Squamous /2016 [facility] - Epithelial [place] Cells Laboratory Urine RBC Urine RBC 05/[address] [facility] [address] Studies /2016 [facility] [place] Laboratory Urine Urine 05/29 [facility]. Studies Culture Culture /2016 [facility] - Reflexed Reflexed [place] Laboratory Urine null 05/29 [facility]. Studies Bacteria /2016 [facility] [place] Laboratory Urine Urine 05/29 [facility]. Studies Amorphous Amorphous [facility] - Sediment Sediment [place] Laboratory Direct null 0 - 0.2 05/29 [facility]. Studies Bilirubin /2016 [facility] [place] Laboratory Amylase 70 U/L 28 - 100 05/[address] [facility] [address] Studies Level /2016 [facility] [place] Laboratory Lipase 95 U/L 22 - 51 05/29 [facility]. Studies /2016 [facility] [place] Laboratory Hemoglobin 7.3 % 4 - 6.0 05/11 [facility]. Studies A1c [facility] [place] Laboratory Triglyceride 118 mg/dL 35 - 160 05/11 [facility]. Studies s Level /2016 [facility] [place] Laboratory Magnesium 2.2 mg/dL 1.8 - 2.5 05/11 [facility]. Studies Level /2016 [facility] [place] Laboratory LDL 81 05/11 [facility]. Studies Cholesterol, /2016 [facility] - Calculated [place] Laboratory HDL 26 mg/dL 27 - 67 05/11 [facility]. Studies Cholesterol /2016 [facility] [place] Laboratory Cholesterol/ 5.04 05/11 [facility]. Studies HDL Ratio /2016 [facility] [place] Laboratory Cholesterol 131 mg/dL 05/11 [facility]. Studies Level [facility] [place] Laboratory Troponin I null 05/11 [facility]. Studies [facility] [place] Laboratory Glomerular null 05/10 [facility] Studies Basement /2016 [facility] - Membrane IgG [place] Ab Laboratory Urine pH 6.0 05/10 [facility]. Studies /2016 [facility] [place] Laboratory Urine Total Urine 05/10 [facility] Studies Protein Total /2016 [facility] - Protein [place] Laboratory Urine 1.020 05/10 [facility]. Studies Specific /2016 [facility] - [place] Laboratory Urine Urine 05/10 [facility]. Studies Nitrite Nitrite [facility] [place] Laboratory Urine Urine 05/10 [facility]. Studies Leukocyte Leukocyte /2016 [facility] - Esterase Esterase [place] Laboratory Urine Urine 05/[address] St[facility] Studies Ketones Ketones [facility] [place] Laboratory Urine Urine 05/10 [facility]. Studies Glucose Glucose [facility] [place] Laboratory Urine Blood Urine 05/[address] [facility] [address] Studies Blood [facility] [place] Laboratory Creatine 11.3 ng/ml 0.3 - 4.0 05/[address] [facility] [address] Studies Kinase MB /2016 [facility] [place] Laboratory B-Type 594 pg/ml 05/[address] [facility] [address] Studies Natriuretic [facility] - Peptide [place] Laboratory Rapid null 05/10 [facility]. Studies Troponin I /2016 [facility] [place] Laboratory Prothrombin 11.3 9.5 - 12.5 05/[address] [facility] [address] Studies Time SECONDS [facility] [place] Laboratory INR 0.96 05/10 [facility]. Studies Internationa [facility] - l Normalized [place] Ratio Laboratory Activated 28.5 24.3 - 05/10 [facility]. Studies Partial SECONDS 36.9 [facility] - Thromboplast [place] Time Vital Signs Vital Sign Value Date Comments Source Temperature Oral (F) 97.5 F 06/05/[address] [facility] [address] [facility] [place] Heart Rate 66 06/05/[address] [facility] [address] [facility] [place] Respitory Rate 18 06/05/[address] [facility] [address] [facility] [place] Systolic (mm Hg) 131 06/05/[address] [facility] [address] [facility] [place] Diastolic (mm Hg) 62 06/05/[address] [facility] [address] [facility] - [place] Height 75 06/05/2017 [facility] [place] Weight 228 06/05/[address] [facility] [address] [facility] [place] Encounters Location Location Encounter Encounter Reason Attending ADM DC Status Source Details Type Number For Provider Date Date Visit [facility]. Registered [id number] 04/11 [facility] [place] [facility] Registered [id number] 04/[address] [facility] [facility] [place] [facility]. Registered [id number] 04/[address] [facility] [address] [facility] Referred 65 [facility] [place] [facility]. Registered [id number] 04/[address] [facility] [address] [facility] Ref[facility] [place] [facility] Departed [id number] 04/27 04/[address] [facility] [address] [facility] 73 /2016 [facility] [place] [facility] [place] [facility] [id number] 05/10 05/[address] [facility] [address] [facility] In[facility] 99 /2016 [facility] [place] [facility] Discharged [id number] 06/01 06/[address] [facility] [address] [facility] In[facility] 75 [facility] [place] Procedures Procedure Code Date Perfomer Comments Source Chest Single [id number] 06/03/[address] [facility] [address] [facility] View [place] Chest Pa And Lat [id number] 06/02/[address] [facility] [address] [facility] - (2 Views) [place] Abdomen & Pelvis [id number] 05/29/[address] [facility] [address] [facility] - Wo Contrast [place] Chest Pa And Lat [id number] 05/11/[address] [facility] [address] [facility] - (2 Views) [place] Abdomen & Pelvis [id number] 05/10/[address] [facility] [address] [facility] - Wo Contrast [place] Chest Single [id number] 05/10/[address] [facility] [address] [facility] - View [place] REMOVAL OF [id number] 04/27/[address] [facility] [address] [facility] - INFUSION DEVICE [place] FROM UPPER VEIN, OPEN APPROACH REMOVAL TUNNELED [id number] 04/27/[address] [facility] [address] [facility] - CV CATH [place]
--- OUTSIDE RECORDS SUMMARY | 2018-08-28 12:23 | XMS REPORT ---
:1965 [facility] [address] [place] [address] Care Team Providers Name Role Phone DWIGHT [...] (BEAKER) (test 243 mg/dL 70-110 TESTED AT [facility] [address] [place] [address] cibr=1339) [address] [facility] [address] BASIC METABOLIC [id number] 13:51:00 Test Item Value Reference Range Comments SODIUM (BEAKER) (test 139 meq/L 135-148 pqqy=653) POTASSIUM (BEAKER) (test 3.4 meq/L 3.6-5.5 lhez=524) CHLORIDE (BEAKER) (test 101 meq/L 98-106 gbde=417) CO2 (BEAKER) (test 29 meq/L 20-29 nmxc=806) BLOOD UREA NITROGEN 11 mg/dL 10-26 (BEAKER) (test dxno=318) CREATININE (BEAKER) (test 2.10 mg/dL 0.50-1.20 zscq=726) GLUCOSE RANDOM (BEAKER) 157 mg/dL 70-110 (test bbax=645) CALCIUM (BEAKER) (test 8.6 mg/dL 8.5-10.5 usui=086) EGFR (BEAKER) (test 33 mL/min/1.73 sq m ESTIMATED GFR IS NOT zfxo=1420) ACCURATE CREATININE CLEARANCE IN PREDICTING GLOMERULAR FILTRATION RATE. ESTIMATED GFR IS NOT APPLICABLE FOR DIALYSIS PATIENTS. [id number] 13:44:00 Test Item Value Reference Range Comments MAGNESIUM (BEAKER) (test ylrb=702) 1.9 mg/dL 1.5-3.0 CBC W/PLT COUNT & AUTO [id number] 13:34:00 Test Item Value Reference Range Comments WHITE BLOOD CELL COUNT (BEAKER) (test wetw=383) 6.8 K/ L 4.0-10.0 RED BLOOD CELL COUNT (BEAKER) (test akbi=875) 2.92 M/ L 4.20-5.80 HEMOGLOBIN (BEAKER) (test nqqg=283) 8.4 GM/DL 13.0-16.8 HEMATOCRIT (BEAKER) (test lmil=702) 25.5 % 40.0-50.0 MEAN CORPUSCULAR VOLUME (BEAKER) (test uvlz=776) 87.4 fL 82.0-98.0 MEAN CORPUSCULAR HEMOGLOBIN (BEAKER) (test 28.7 pg 27.0-33.0 mpzs=950) MEAN CORPUSCULAR HEMOGLOBIN CONC (BEAKER) (test 32.8 GM/DL 32.0-36.0 doti=936) RED CELL DISTRIBUTION WIDTH (BEAKER) (test 14.7 % 10.3-14.2 rgku=230) PLATELET COUNT (BEAKER) (test obxk=583) 299 K/CU MM 150-430 MEAN PLATELET VOLUME (BEAKER) (test gmzf=883) 6.9 fL 6.5-10.5 NUCLEATED RED BLOOD CELLS (BEAKER) (test 0 /100 WBC 0-0 csgj=737) NEUTROPHILS RELATIVE PERCENT (BEAKER) (test 65 % irvv=378) LYMPHOCYTES RELATIVE PERCENT (BEAKER) (test 18 % kbmj=931) MONOCYTES RELATIVE PERCENT (BEAKER) (test 14 % qopa=794) EOSINOPHILS RELATIVE PERCENT (BEAKER) (test 3 % eluz=982) BASOPHILS RELATIVE PERCENT (BEAKER) (test 1 % ccva=765) NEUTROPHILS ABSOLUTE COUNT (BEAKER) (test 4.40 K/ L 1.80-8.00 ldvg=978) LYMPHOCYTES ABSOLUTE COUNT (BEAKER) (test 1.20 K/ L 1.48-4.50 nvhb=298) MONOCYTES ABSOLUTE COUNT (BEAKER) (test 1.00 K/ L 0.00-1.30 unzs=673) EOSINOPHILS ABSOLUTE COUNT (BEAKER) (test 0.20 K/ L 0.00-0.50 tcfs=092) BASOPHILS ABSOLUTE COUNT (BEAKER) (test 0.00 K/ L 0.00-0.20 leis=278) POCT-GLUCOSE [id number] 11:28:00 Test Item Value Reference Range Comments POC-GLUCOSE METER (BEAKER) 147 mg/dL 70-110 TESTED AT [address] (test qdch=5798) [place] [address] POCT-GLUCOSE [id number] 06:04:00 Test Item Value Reference Range Comments POC-GLUCOSE METER (BEAKER) 137 mg/dL 70-110 TESTED AT [address] (test chrk=6280) [place] [address] POCT-GLUCOSE [id number] 21:01:00 Test Item Value Reference Range Comments POC-GLUCOSE METER (BEAKER) 138 mg/dL 70-110 TESTED AT [address] (test tfqp=8336) [place] [address] POCT-GLUCOSE [id number] 16:06:00 Test Item Value Reference Range Comments POC-GLUCOSE METER (BEAKER) 167 mg/dL 70-110 TESTED AT [address] (test qomb=7572) [place] [address] POCT-GLUCOSE [id number] 12:49:00 Test Item Value Reference Range Comments POC-GLUCOSE METER (BEAKER) 144 mg/dL 70-110 TESTED AT [address] (test cqgd=8367) [place] [address] [id number] 10:27:00 Test Item Value Reference Range Comments POC-CREATININE (BEAKER) 3.6 mg/dL 0.6-1.3 TESTED AT [address] (test fvxi=7401) [place] [address] POC-EGFR (BEAKER) (test 18 mL/min/1.73M2 ofmu=9335) [id number] 10:27:00 Test Item Value Reference Range Comments POC-SODIUM (BEAKER) (test 138 meq/L 135-148 TESTED AT [address] nyuc=5318) [place] [address] [id number] 10:27:00 Test Item Value Reference Range Comments POC-POTASSIUM (BEAKER) 3.6 meq/L 3.6-5.5 TESTED AT [address] (test xcvz=5195) [place] [address] [id number] 10:27:00 Test Item Value Reference Range Comments POC-BUN (BEAKER) (test 20 mg/dL 7-21 TESTED AT [address] aejd=2690) [place] [address] [id number] 10:27:00 Test Item Value Reference Range Comments POC-CHLORIDE (BEAKER) (test 97 meq/L 98-107 TESTED AT [address] jnlx=2603) [place] [address] [id number] 10:27:00 Test Item Value Reference Range Comments POC-GLUCOSE (BEAKER) (test 123 mg/dL 70-110 TESTED AT [address] sdtr=4240) [place] [address] [id number] 10:27:00 Test Item Value Reference Range Comments POC-HEMATOCRIT (BEAKER) (test 24 % 40-50 TESTED AT [address] miqw=3309) [place] [address] [id number] 10:27:00 Test Item Value Reference Range Comments POC-HEMOGLOBIN (BEAKER) 8.2 g/dL 13.0-16.8 TESTED AT [address] (test lset=4947) [place] [address] [id number] 10:27:00 Test Item Value Reference Range Comments POC-TCO2 (BEAKER) (test 30 meq/L 22-29 TESTED AT [address] icoc=6885) [place] [address] POCT-GLUCOSE [id number] 06:08:00 Test Item Value Reference Range Comments POC-GLUCOSE METER (BEAKER) 163 mg/dL 70-110 TESTED AT [address] (test ecds=1311) [place] [address] POCT-GLUCOSE [id number] 21:07:00 Test Item Value Reference Range Comments POC-GLUCOSE METER (BEAKER) 132 mg/dL 70-110 TESTED AT [facility] [address] [place] [address] (test pudo=9445) [facility] [address] POCT-GLUCOSE [id number] 12:58:00 Test Item Value Reference Range Comments POC-GLUCOSE METER (BEAKER) 178 mg/dL 70-110 TESTED AT [address] (test ylno=8851) [facility] [address] POCT-GLUCOSE [id number] 05:29:00 Test Item Value Reference Range Comments POC-GLUCOSE METER (BEAKER) 171 mg/dL 70-110 TESTED AT [address] (test rzyw=9949) [facility] [address] POCT-GLUCOSE [id number] 22:03:00 Test Item Value Reference Range Comments POC-GLUCOSE METER (BEAKER) 249 mg/dL 70-110 TESTED AT [address] (test hpge=6435) [facility] [address] POCT-GLUCOSE [id number] 16:45:00 Test Item Value Reference Range Comments POC-GLUCOSE METER (BEAKER) 213 mg/dL 70-110 TESTED AT [address] (test xzmc=0622) [facility] [address] [id number] 16:43:00 Test Item Value Reference Range Comments THYROID STIMULATING HORMONE (BEAKER) (test 2.09 uIU/mL 0.35-5.50 flbj=470) COMPREHENSIVE METABOLIC [id number] 16:24:00 Test Item Value Reference Range Comments TOTAL PROTEIN (BEAKER) 7.2 gm/dL 6.0-8.5 (test dcxh=368) ALBUMIN (BEAKER) (test 3.5 g/dL 3.5-5.0 zuos=8544) ALKALINE PHOSPHATASE 67 U/L 30-115 (BEAKER) (test btmq=787) BILIRUBIN TOTAL (BEAKER) 0.3 mg/dL 0.1-1.2 (test dtpv=938) SODIUM (BEAKER) (test 136 meq/L 135-148 vnyp=831) POTASSIUM (BEAKER) (test 4.1 meq/L 3.6-5.5 fjxq=159) CHLORIDE (BEAKER) (test 98 meq/L 98-106 lmij=743) CO2 (BEAKER) (test 26 meq/L 20-29 edcy=401) BLOOD UREA NITROGEN 32 mg/dL 10-26 (BEAKER) (test yfzw=523) CREATININE (BEAKER) (test 4.40 mg/dL 0.50-1.20 oflz=056) GLUCOSE RANDOM (BEAKER) 212 mg/dL 70-110 (test trht=766) CALCIUM (BEAKER) (test 9.0 mg/dL 8.5-10.5 sxdl=738) AST (SGOT) (BEAKER) (test 14 U/L 5-40 poro=301) ALT (SGPT) (BEAKER) (test 4 U/L 5-50 kdfx=006) EGFR (BEAKER) (test 14 mL/min/1.73 sq m ESTIMATED GFR IS NOT cqkp=8588) ACCURATE CREATININE CLEARANCE IN PREDICTING GLOMERULAR FILTRATION RATE. ESTIMATED GFR IS NOT APPLICABLE FOR DIALYSIS PATIENTS. CBC W/PLT COUNT & AUTO [id number] 16:02:00 Test Item Value Reference Range Comments WHITE BLOOD CELL COUNT (BEAKER) (test hmay=982) 6.9 K/ L 4.0-10.0 RED BLOOD CELL COUNT (BEAKER) (test tice=164) 2.95 M/ L 4.20-5.80 HEMOGLOBIN (BEAKER) (test xmtp=608) 8.6 GM/DL 13.0-16.8 HEMATOCRIT (BEAKER) (test tzyp=802) 25.9 % 40.0-50.0 MEAN CORPUSCULAR VOLUME (BEAKER) (test lkan=131) 87.9 fL 82.0-98.0 MEAN CORPUSCULAR HEMOGLOBIN (BEAKER) (test 29.0 pg 27.0-33.0 dfsj=699) MEAN CORPUSCULAR HEMOGLOBIN CONC (BEAKER) (test 33.0 GM/DL 32.0-36.0 tvxn=945) RED CELL DISTRIBUTION WIDTH (BEAKER) (test 15.0 % 10.3-14.2 utcj=251) PLATELET COUNT (BEAKER) (test cvth=262) 330 K/CU MM 150-430 MEAN PLATELET VOLUME (BEAKER) (test yepm=272) 7.1 fL 6.5-10.5 NUCLEATED RED BLOOD CELLS (BEAKER) (test 0 /100 WBC 0-0 qfav=445) NEUTROPHILS RELATIVE PERCENT (BEAKER) (test 66 % rmal=947) LYMPHOCYTES RELATIVE PERCENT (BEAKER) (test 16 % yons=893) MONOCYTES RELATIVE PERCENT (BEAKER) (test 12 % hzzq=874) EOSINOPHILS RELATIVE PERCENT (BEAKER) (test 5 % ghnl=341) BASOPHILS RELATIVE PERCENT (BEAKER) (test 1 % fdak=102) NEUTROPHILS ABSOLUTE COUNT (BEAKER) (test 4.60 K/ L 1.80-8.00 smwf=314) LYMPHOCYTES ABSOLUTE COUNT (BEAKER) (test 1.10 K/ L 1.48-4.50 zena=410) MONOCYTES ABSOLUTE COUNT (BEAKER) (test 0.80 K/ L 0.00-1.30 lzqn=659) EOSINOPHILS ABSOLUTE COUNT (BEAKER) (test 0.30 K/ L 0.00-0.50 hwwc=316) BASOPHILS ABSOLUTE COUNT (BEAKER) (test 0.10 K/ L 0.00-0.20 stjs=130) PROTHROMBIN [id number] 16:01:00 Test Item Value Reference Range Comments PROTIME (BEAKER) (test xdtj=567) 10.3 seconds 9.3-12.0 INR (BEAKER) (test jomp=769) 1.0 <=5.9 RECOMMENDED COUMADIN/WARFARIN INR THERAPY RANGESSTANDARD DOSE: 2.0 - 3.0 Includes: PROPHYLAXIS forvenous thrombosis, systemic embolization; TREATMENT for venous thrombosis and/or pulmonary embolus.HIGH RISK: Target INR is 2.5-3.5 for patients with mechanical heart valves.POCT-GLUCOSE [id number] 12:01:00 Test Item Value Reference Range Comments POC-GLUCOSE METER (BEAKER) 211 mg/dL 70-110 TESTED AT [facility] [address] [place] [address] (test flgg=9752) [facility] [address] POCT-GLUCOSE [id number] 06:08:00 Test Item Value Reference Range Comments POC-GLUCOSE METER (BEAKER) 191 mg/dL 70-110 TESTED AT [address] (test oqvl=4505) [facility] [address] POCT-GLUCOSE [id number] 21:28:00 Test Item Value Reference Range Comments POC-GLUCOSE METER (BEAKER) 233 mg/dL 70-110 TESTED AT [address] (test wpgf=9252) [facility] [address] POCT-GLUCOSE [id number] 16:19:00 Test Item Value Reference Range Comments POC-GLUCOSE METER (BEAKER) 290 mg/dL 70-110 TESTED AT [address] (test wwsv=3701) [facility] [address] POCT-GLUCOSE [id number] 13:33:00 Test Item Value Reference Range Comments POC-GLUCOSE METER (BEAKER) 186 mg/dL 70-110 TESTED AT [address] (test iowe=9346) [facility] [address] POCT-GLUCOSE [id number] 06:27:00 Test Item Value Reference Range Comments POC-GLUCOSE METER (BEAKER) 204 mg/dL 70-110 TESTED AT [address] (test hwki=1004) [facility] [address] POCT-GLUCOSE [id number] 21:40:00 Test Item Value Reference Range Comments POC-GLUCOSE METER (BEAKER) 267 mg/dL 70-110 TESTED AT [address] (test xvlb=8377) [facility] [address] POCT-GLUCOSE [id number] 17:32:00 Test Item Value Reference Range Comments POC-GLUCOSE METER (BEAKER) 221 mg/dL 70-110 TESTED AT [address] (test lwud=4983) [facility] [address] HEPATITIS B SURFACE [id number] 14:21:00 Test Item Value Reference Range Comments HEPATITIS B SURFACE ANTIBODY (BEAKER) (test < mIU/mL <8.0 wbta=468) HEPATITIS B CORE ANTIBODY, [id number] 14:15:00 Test Item Value Reference Range Comments HEPATITIS B CORE TOTAL ANTIBODY (BEAKER) (test Nonreactive Nonreactive hjzm=724) POCT-GLUCOSE [id number] 12:18:00 Test Item Value Reference Range Comments POC-GLUCOSE METER (BEAKER) 193 mg/dL 70-110 TESTED AT [address] (test knmb=1649) [facility] [address] RAD, CHEST, 1 VIEW, NON [id number] 08:49:00Reason for exam:->for outpatient HD placementShould this [...] Hammereport Verified Date/Time: 06/10/2017 08:49:42 Reading Location: [facility] Radiology Reading Room Electronically signed by: SACHI HAMMER on 2016 08:49 AMPOCT-GLUCOSE [id number] 06:53:00 Test Item Value Reference Range Comments POC-GLUCOSE METER (BEAKER) 177 mg/dL 70-110 TESTED AT [address] (test ylrl=8829) [facility] [address] POCT-GLUCOSE [id number] 22:10:00 Test Item Value Reference Range Comments POC-GLUCOSE METER (BEAKER) 109 mg/dL 70-110 TESTED AT [address] (test zcon=1733) [facility] [address] HEPATITIS B SURFACE [id number] 20:18:00 Test Item Value Reference Range Comments HEPATITIS B SURFACE ANTIGEN (2) (BEAKER) (test Nonreactive Nonreactive wtzj=8727) POCT-GLUCOSE [id number] 17:08:00 Test Item Value Reference Range Comments POC-GLUCOSE METER (BEAKER) 223 mg/dL 70-110 TESTED AT [address] (test oeio=6250) [facility] [address] POCT-GLUCOSE [id number] 12:47:00 Test Item Value Reference Range Comments POC-GLUCOSE METER (BEAKER) 200 mg/dL 70-110 TESTED AT [address] (test rhju=0037) [facility] [address] ANG, TUNNELED CATHETER [id number] 12:13:00Reason for exam:->renal failureFINAL REPORT Tunneled central [...] the patient's medical record by the nurse. Assistant Womens Volleyball Coach: Onesimo Lopez MD. Check Pilot: None. Approach: Right internal jugular vein Estimated [...] needle into the right atrium. A 4 Senegalese micropuncture sheath was placed. A subcutaneous tunnel was created in the right anterior chest wall by blunt dissection. A 19 cm tipped cuff 15.5 Sen[place]e Duraflow 2 catheter was brought through the [...] Lopez Verified Date/Time: 06/09/2017 12:13:36 Reading Location: [facility] Radiology Reading Room 12 :13 PMPOCT-GLUCOSE [id number] 06:03:00 Test Item Value Reference Range Comments POC-GLUCOSE METER (BEAKER) 208 mg/dL 70-110 TESTED AT [facility] [address] [facility] (test jbje=2413) [address] [facility] [address] BASIC METABOLIC [id number] 06:00:00 Test Item Value Reference Range Comments SODIUM (BEAKER) (test 139 meq/L 135-148 ueku=153) POTASSIUM (BEAKER) (test 3.5 meq/L 3.6-5.5 omzs=000) CHLORIDE (BEAKER) (test 103 meq/L 98-106 tpnh=101) CO2 (BEAKER) (test 26 meq/L 20-29 dlsu=159) BLOOD UREA NITROGEN 62 mg/dL 10-26 (BEAKER) (test tzpn=187) CREATININE (BEAKER) (test 5.10 mg/dL 0.50-1.20 wmmj=257) GLUCOSE RANDOM (BEAKER) 191 mg/dL 70-110 (test ctbd=206) CALCIUM (BEAKER) (test 9.0 mg/dL 8.5-10.5 ygqj=586) EGFR (BEAKER) (test 12 mL/min/1.73 sq m ESTIMATED GFR IS NOT qxbj=2560) ACCURATE CREATININE CLEARANCE IN PREDICTING GLOMERULAR FILTRATION RATE. ESTIMATED GFR IS NOT APPLICABLE FOR DIALYSIS PATIENTS. HEPATIC FUNCTION [id number] 05:58:00 Test Item Value Reference Range Comments TOTAL PROTEIN (BEAKER) (test kuvg=097) 6.3 gm/dL 6.0-8.5 ALBUMIN (BEAKER) (test pkmo=6745) 3.2 g/dL 3.5-5.0 BILIRUBIN TOTAL (BEAKER) (test bmgz=349) 0.4 mg/dL 0.1-1.2 BILIRUBIN DIRECT (BEAKER) (test chos=714) 0.2 mg/dL 0.0-0.4 ALKALINE PHOSPHATASE (BEAKER) (test pnxx=445) 67 U/L 30-115 AST (SGOT) (BEAKER) (test hgdi=003) 13 U/L 5-40 ALT (SGPT) (BEAKER) (test lzwt=380) 10 U/L 5-50 CBC W/PLT COUNT & AUTO [id number] 05:56:00 Test Item Value Reference Range Comments WHITE BLOOD CELL COUNT (BEAKER) (test hmux=652) 6.3 K/ L 4.0-10.0 RED BLOOD CELL COUNT (BEAKER) (test wtoy=663) 2.71 M/ L 4.20-5.80 HEMOGLOBIN (BEAKER) (test vycw=577) 7.8 GM/DL 13.0-16.8 HEMATOCRIT (BEAKER) (test bnar=229) 23.6 % 40.0-50.0 MEAN CORPUSCULAR VOLUME (BEAKER) (test dpab=820) 86.8 fL 82.0-98.0 MEAN CORPUSCULAR HEMOGLOBIN (BEAKER) (test 28.6 pg 27.0-33.0 rqdp=756) MEAN CORPUSCULAR HEMOGLOBIN CONC (BEAKER) (test 33.0 GM/DL 32.0-36.0 vkvg=499) RED CELL DISTRIBUTION WIDTH (BEAKER) (test 14.8 % 10.3-14.2 hnyg=774) PLATELET COUNT (BEAKER) (test krjv=666) 334 K/CU MM 150-430 MEAN PLATELET VOLUME (BEAKER) (test gnte=458) 6.9 fL 6.5-10.5 NUCLEATED RED BLOOD CELLS (BEAKER) (test 0 /100 WBC 0-0 unty=717) NEUTROPHILS RELATIVE PERCENT (BEAKER) (test 57 % htku=104) LYMPHOCYTES RELATIVE PERCENT (BEAKER) (test 19 % sjvc=788) MONOCYTES RELATIVE PERCENT (BEAKER) (test 15 % vzzz=341) EOSINOPHILS RELATIVE PERCENT (BEAKER) (test 7 % ihtn=700) BASOPHILS RELATIVE PERCENT (BEAKER) (test 1 % hczy=967) NEUTROPHILS ABSOLUTE COUNT (BEAKER) (test 3.60 K/ L 1.80-8.00 prck=973) LYMPHOCYTES ABSOLUTE COUNT (BEAKER) (test 1.20 K/ L 1.48-4.50 atwy=045) MONOCYTES ABSOLUTE COUNT (BEAKER) (test 1.00 K/ L 0.00-1.30 mkvi=169) EOSINOPHILS ABSOLUTE COUNT (BEAKER) (test 0.50 K/ L 0.00-0.50 exji=251) BASOPHILS ABSOLUTE COUNT (BEAKER) (test 0.10 K/ L 0.00-0.20 yzte=654) [id number] 05:55:00 Test Item Value Reference Range Comments PHOSPHORUS (BEAKER) (test qgqv=583) 4.1 mg/dL 2.5-4.5 [id number] 05:51:00 Test Item Value Reference Range Comments PROTIME (BEAKER) (test evmy=568) 10.7 seconds 9.3-12.0 INR (BEAKER) (test ukhq=052) 1.0 <=5.9 PARTIAL THROMBOPLASTIN TIME (BEAKER) (test 28.5 seconds 23.0-35.0 blvu=350) RECOMMENDED COUMADIN/WARFARIN INR THERAPY RANGESSTANDARD DOSE: 2.0 - 3.0 Includes: PROPHYLAXIS forvenous thrombosis, systemic embolization; TREATMENT for venous thrombosis and/or pulmonary embolus.HIGH RISK: Target INR is 2.5-3.5 for patients with mechanical heart valves.[id number] 05:50:00 Test Item Value Reference Range Comments MAGNESIUM (BEAKER) (test wevg=282) 1.7 mg/dL 1.5-3.0 POCT-GLUCOSE [id number] 23:14:00 Test Item Value Reference Range Comments POC-GLUCOSE METER (BEAKER) 230 mg/dL 70-110 TESTED AT [facility] [address] [place] [address] (test vnkk=9506) [facility] [address]
--- NOTE | 2018-08-28 13:24 | RAD REPORT ---
EXAM DESCRIPTION: RADSacrum And Coccyx08/28/2018 1:18 pm CLINICAL HISTORY: Back pain status post fall FINDINGS: No fracture is seen. The bones are osteoporotic
--- NOTE | 2018-08-28 13:24 | RAD REPORT ---
EXAM DESCRIPTION: RAD - Lumbar Spine 3 Views - 08/28/2018 1:18 pm CLINICAL HISTORY: Back pain FINDINGS: The alignment of the lumbar spine is satisfactory. No fracture or dislocation is seen. The bones are osteoporotic Mild spondylosis involves the lumbar spine.
--- NOTE | 2018-08-28 13:59 | ER ---
Nurse's Notes [facility] Name: Yusuf Bah Age: 53 yrs Sex: Male : 1965 Arrival Date: 08/28/2018 Time: 12:19 Bed Treatment Private MD: Lori Chavarria C Diagnosis: Contusion of sacrum and coccyx Presentation: 08/28 12:28 Presenting complaint: Tailbone pain 8/10 after fall from standing onto tile floor 1 hb week ago. Transition of care: patient was not received from another setting of care. Onset of symptoms was August 22, 2018. Risk Assessment: Do you want to hurt yourself or someone else? Patient reports no desire to harm self or others. Care prior to arrival: None. 12:28 Method Of Arrival: Ambulatory hb 12:28 Acuity: ALVERTO 4 hb 13:00 Initial Sepsis Screen: Does the patient meet any 2 criteria? No. Patient's initial iw sepsis screen is negative. Does the patient have a suspected source of infection? No. Patient's initial sepsis screen is negative. Triage Assessment: 13:50 General: Appears in no apparent distress. Behavior is calm. iw Historical: - Allergies: 12:30 Sulfa (Sulfonamide Antibiotics); hb - Immunization history:: Adult Immunizations up to date. - Social history:: Smoking status: Patient/guardian denies using tobacco. - Ebola Screening: : No symptoms or risks identified at this time. Screenin:08 Abuse screen: Denies threats or abuse. Denies injuries from another. Nutritional iw screening: No deficits noted. Tuberculosis screening: No symptoms or risk factors identified. Fall Risk Fall in past 12 months (25 points). Assessment: 13:00 General: Appears in no apparent distress. Behavior is calm, cooperative. Pain: iw Complains of pain in sacrum. Neuro: Level of Consciousness is awake, alert, obeys commands, Oriented to person, place, time. Cardiovascular: Patient's skin is warm and dry. Respiratory: Respiratory effort is even, Respiratory pattern is regular. Derm: Skin is intact, is healthy with good turgor. Musculoskeletal: Range of motion: intact in all extremities. Vital Signs: 12:29 BP 147 / 62; Pulse 88; Resp 16; Temp 98.1; Pulse Ox 100% on R/A; Pain 10/10; hb ED Course: 12:19 Patient arrived in ED. as 12:21 Lori Chavarria MD is Private Physician. as 12:29 Triage completed. hb 12:30 Arm band placed on. hb 13:00 Patient has correct armband on for positive identification. iw 13:02 Cehryle Andres, RN is Primary Nurse. iw 13:06 Jeremiah Nguyen PA is PHCP. jr8 13:06 Baldemar Batres MD is Attending Physician. jr8 13:17 X-ray completed. Patient tolerated procedure well. Patient moved back from radiology. mh1 13:19 Lumbar Spine (3 Views) XRAY In Process Unspecified. EDMS 13:19 Sacrum And Coccyx XRAY In Process Unspecified. EDMS 13:57 Lori Chavarria MD is Referral Physician. jr8 14:08 No provider procedures requiring assistance completed. Patient did not have IV access iw during this emergency room visit. Administered Medications: No medications were administered Outcome: 13:58 Discharge ordered by . jr8 14:08 Discharged to home ambulatory, with family. iw 14:08 Condition: good 14:08 Discharge instructions given to patient, family, Instructed on discharge instructions, follow up and referral plans. medication usage, Demonstrated understanding of instructions, follow-up care, medications. 14:09 Patient left the ED. iw Signatures: Dispatcher [employer] EDMS Lise Cunningham [email or web address] Eliza Guthrie as Cheryle Andres, RN RN iw Jeremiah Nguyen PA PA jr8 Megan Ha RN RN hb Corrections: (The following items were deleted from the chart) 20:19 14:08 Discharge instructions given to patient, family, Instructed on discharge iw instructions, follow up and referral plans. medication usage, Demonstrated understanding of instructions, follow-up care, medications, Prescriptions given X 1, iw
--- NOTE | 2018-08-28 13:59 | EDPHYS ---
Physician Documentation [facility] Name: Yusuf Bah Age: 53 yrs Sex: Male : 1965 Arrival Date: 08/28/2018 Time: 12:19 Bed Treatment Private MD: Lori Chavarria C ED Physician Baldemar Batres HPI: 08/28 13:55 This 53 yrs old Male presents to ER via Ambulatory with complaints of jr8 Tailbone Pain. 13:55 The symptoms are located in the low back, coccyx area. The pain does not radiate. The jr8 problem was sustained during a fall, while standing. Onset: The symptoms/episode began/occurred acutely, 1 week(s) ago. Modifying factors: The patient symptoms are alleviated by nothing, the patient symptoms are aggravated by bending, movement. Associated signs and symptoms: The patient has no apparent associated signs or symptoms. Severity of symptoms: At their worst the symptoms were mild, in the emergency department the symptoms are unchanged. The patient has not experienced similar symptoms in the past. The patient has not recently seen a physician. Patient stated that he fell one week ago onto buttock. Since then has had coccyx pain . Historical: - Allergies: 12:30 Sulfa (Sulfonamide Antibiotics); hb - Immunization history:: Adult Immunizations up to date. - Social history:: Smoking status: Patient/guardian denies using tobacco. - Ebola Screening: : No symptoms or risks identified at this time. ROS: 13:55 Eyes: Negative for injury, pain, redness, and discharge, ENT: Negative for injury, jr8 pain, and discharge, Neck: Negative for injury, pain, and swelling, Cardiovascular: Negative for chest pain, palpitations, and edema, Respiratory: Negative for shortness of breath, cough, wheezing, and pleuritic chest pain, Abdomen/GI: Negative for abdominal pain, nausea, vomiting, diarrhea, and constipation, MS/Extremity: Negative for injury and deformity, Skin: Negative for injury, rash, and discoloration, Neuro: Negative for headache, weakness, numbness, tingling, and seizure. 13:55 Back: Positive for pain at rest, pain with movement, of the sacrum. Exam: 13:55 Eyes: Pupils equal round and reactive to light, extra-ocular motions intact. Lids and jr8 lashes normal. Conjunctiva and sclera are non-icteric and not injected. Cornea within normal limits. Periorbital areas with no swelling, redness, or edema. ENT: Nares patent. No nasal discharge, no septal abnormalities noted. Tympanic membranes are normal and external auditory canals are clear. Oropharynx with no redness, swelling, or masses, exudates, or evidence of obstruction, uvula midline. Mucous membranes moist. Neck: Trachea midline, no thyromegaly or masses palpated, and no cervical lymphadenopathy. Supple, full range of motion without nuchal rigidity, or vertebral point tenderness. No Meningismus. Cardiovascular: Regular rate and rhythm with a normal S1 and S2. No gallops, murmurs, or rubs. Normal PMI, no JVD. No pulse deficits. Respiratory: Lungs have equal breath sounds bilaterally, clear to auscultation and percussion. No rales, rhonchi or wheezes noted. No increased work of breathing, no retractions or nasal flaring. Abdomen/GI: Soft, non-tender, with normal bowel sounds. No distension or tympany. No guarding or rebound. No evidence of tenderness throughout. Back: No spinal tenderness. No costovertebral tenderness. Full range of motion. Mild coccyx tenderness without bruising, or skin injury Skin: Warm, dry with normal turgor. Normal color with no rashes, no lesions, and no evidence of cellulitis. MS/ Extremity: Pulses equal, no cyanosis. Neurovascular intact. Full, normal range of motion. Neuro: Awake and alert, GCS 15, oriented to person, place, time, and situation. Cranial nerves II-XII grossly intact. Motor strength 5/5 in all extremities. Sensory grossly intact. Cerebellar exam normal. Normal gait. Vital Signs: 12:29 BP 147 / 62; Pulse 88; Resp 16; Temp 98.1; Pulse Ox 100% on R/A; Pain 10/10; hb MDM: 13:06 Patient medically screened. jr8 13:55 Data reviewed: vital signs, nurses notes, radiologic studies, plain films. Data jr8 interpreted: Pulse oximetry: on room air is 100 %. Interpretation: normal. Counseling: I had a detailed discussion with the patient and/or guardian regarding: the historical points, exam findings, and any diagnostic results supporting the discharge/admit diagnosis, radiology results, the need for outpatient follow up, a family practitioner, to return to the emergency department if symptoms worsen or persist or if there are any questions or concerns that arise at home. 08/28 12:33 Order name: Lumbar Spine (3 Views) XRAY; Complete Time: 13:29 hb 08/28 12:33 Order name: Sacrum And Coccyx XRAY; Complete Time: 13:29 hb Administered Medications: No medications were administered Disposition: 15:00 Co-signature as Attending Physician, Baldemar Batres MD I agree with the assessment and [facility] plan of care. Disposition: 08/28/18 13:58 Discharged to Home. Impression: Contusion of sacrum and coccyx . - Condition is Stable. - Discharge Instructions: Contusion. - Medication Reconciliation Form, Thank You Letter, Antibiotic Education, Prescription Opioid Use form. - Follow up: Lori Chavarria MD; When: 5 - 6 days; Reason: Recheck today's complaints, Continuance of care, Re-evaluation by your physician. - Problem is new. - Symptoms have improved. Signatures: Dispatcher [employer] EDME Baldemar Batres MD MD cha Williams, Irene, RN RN Jeremiah Nguyen PA PA jr8 Megan Ha RN RN Corrections: (The following items were deleted from the chart) 14:09 13:58 08/28/2018 13:58 Discharged to Home. Impression: Contusion of sacrum and coccyx . iw Condition is Stable. Forms are Medication Reconciliation Form, Thank You Letter, Antibiotic Education, Prescription Opioid Use. Follow up: Lori Chavarria; When: 5 - 6 days; Reason: Recheck today's complaints, Continuance of care, Re-evaluation by your physician. Problem is new. Symptoms have improved. jr8
[2018-08-28 14:13] VITALS: BP 147/62; TEMP 98.1; O2SAT 100
== END 2018-08-28 14:09 | disposition home or self-care (01) ==
LOC: ER 12:18
DX: S30.0XXA Contusion of lower back and pelvis, initial encounter (principal); W19.XXXA Unspecified fall, initial encounter; Y93.89 Activity, other specified; Y92.9 Unspecified place or not applicable; Z88.2 Allergy status to sulfonamides
CPT/HCPCS: 72100; 72220; 99283

== ENCOUNTER 2018-09-03 17:02 | Inpatient (IN) | payer BC, OTHER ==
--- OUTSIDE RECORDS SUMMARY | 2018-09-03 17:13 | XMS REPORT | Clinical Summary ---
:1965 Author Organization [facility] Address [address] [place] [address] Care Team Providers Name Role Phone Bala [...] Not on file Implants Implanted Type Area Compensation Programs Manager Device Shelf Model / Identifier Expiration Serial / Lot Date Cath Peritoneal Dyls 57cm 2cuf [id number] - Sn/A Catheter N/A: COVIDIEN: SHAZIA 02/17/2021 [id number] / Implanted: Qty: 1 on 06/14/2017 by Abdiel Ivory MD Dialysis Abdomen L N/A / Mcfp [id number] Results Not on fileafter 09/02/2017 Insurance Payer Benefit Plan / Subscriber ID Type Phone Address Group BLUE CROSS/BLUE BCBS OS xxxxxxxxxxxx PPO [phone] [address] SHIELD POS/PPO[place] [address] MEDICARE MEDICARE A B xxxxxxxxxx Medicare Advance Directives For more information, please contact:[address] [phone] Code Status Date Activated Date Inactivated Comments Full Code 06/08/2017 11:37 PM 06/15/2017 8:31 PM This code status was determined by: Patient
--- OUTSIDE RECORDS SUMMARY | 2018-09-03 17:13 | XMS REPORT | Clinical Summary ---
:1965 Author Organization [facility] Address [address] [place] [address] Care Team Providers Name Role Phone Garo [...] 2 (two) times a day. sertraline (ZOLOFT) 50 Take 50 mg by 0 Active MG tablet mouth daily. atorvastatin (LIPITOR) Take [...] a day. metoclopramide Take 5 mg by mouth 0 Active (REGLAN) 5 MG tablet 3 (three) times a day. aspirin 325 MG tablet Take 325 mg by 0 Active mouth daily. INSULIN SUBCUTANEOUS Inject under the 0 Active PUMP, HUMALOG, 100 skin continuously. UNITS/ML INSULIN PUMP Insulin Pump - INFUSION (HumaLOG) V-GO 40 units thru out the day. travoprost Administer 1 drop 0 Active (TRAVATAN-Z) 0.004 % to both eyes nightly. nitroglycerin Place 0.4 mg under 0 Active (NITROSTAT) 0.4 MG SL the tongue every 5 tablet (five) minutes as needed for chest pain. nitroglycerin Place 1 patch on 0 Active (NITRODUR) 0.2 mg/hr the skin daily as needed (Chest Pain). zolpidem (AMBIEN) 5 MG Take 5 mg by mouth 0 Active tablet nightly. ondansetron (ZOFRAN) 4 Take 4 mg by mouth 0 Active MG tablet every 6 (six) hours as needed for nausea or vomiting. promethazine Take 25 mg by 0 Active (PHENERGAN) 25 MG mouth every 8 tablet (eight) hours as needed for nausea or vomiting. lactulose 10 gram/15 Take 20 g by mouth 0 Active mL (15 mL) solution daily as needed (Constipation). famotidine (PEPCID) 40 Take 40 mg by 0 Active MG tablet mouth nightly. ergocalciferol Take 50,000 Units 0 Active (VITAMIN D2) 50,000 by mouth every 30 unit capsule (thirty) days. Active Problems Problem Noted Date Uncontrolled diabetes mellitus 05/25/2018 Diabetic retinopathy associated with controlled type 2 diabetes mellitus 05/25 End-stage renal disease on hemodialysis 08/25/2017 Gastroparesis 05/30/2017 Pleurisy with effusion 05/11/2017 Pulmonary edema 05/11/2017 Obesity 02/24/2017 Chronic coronary artery disease 02/24/2017 Hyperlipidemia 02/24/2017 Hypertension 02/24/2017 Intractable vomiting with nausea 02/24/2017 [id number]-[id number] kidney injury 02/24/2017 Diabetes mellitus 02/15/2017 Encounters Date Type Specialty Care Team Description 05/25/2018 Anesthesia Event Plastic Surgery Raz Borwn 05/25/2018 Surgery Plastic Surgery Daquan Mary AND ARIS Arrington MD INDICATED PROCEDURES, RIGHT EYE 05/25/2018 Hospital Encounter Plastic Surgery Daquan Mary MD 09/15/2017 Office Visit General Surgery Abdiel Ivory Surgery follow- up MD Susan (Primary Dx) after 09/02/2017 Immunizations Name Dates Previously Given Next Due [...] Taken Blood Pressure 136/61 05/25/2018 2:05 PM MOLECULAR BIOLOGY DIRECTOR Pulse 58 05/25/2018 2:05 PM MOLECULAR BIOLOGY DIRECTOR Temperature 37.2 C (98.9 F) 05/25/2018 2:05 PM MOLECULAR BIOLOGY DIRECTOR Respiratory Rate 12 05/25/2018 2:05 PM MOLECULAR BIOLOGY DIRECTOR Oxygen Saturation 96% 05/25/2018 2:05 PM MOLECULAR BIOLOGY DIRECTOR Inhaled Oxygen Concentration - - Weight 97.2 kg (214 lb 3 oz) 05/25/2018 11:43 AM MOLECULAR BIOLOGY DIRECTOR Height 190.5 cm (6' 3") 05/25/2018 11:43 AM MOLECULAR BIOLOGY DIRECTOR Body Mass Index 26.77 05/25/2018 11:43 AM MOLECULAR BIOLOGY DIRECTOR Plan of Treatment Health Maintenance Due Date Last Done Comments DIABETIC RETINAL EYE EXAM 1965 DIABETIC FOOT EXAM 1974 COLON CANCER SCREENING 2014 SHINGLES VACCINES (#1) 2014 INFLUENZA VACCINE 01/11/2018 02/11/2017 Procedures Procedure Name Priority Date/Time Associated Diagnosis Comments VITRECTOMY 05/25/2018 1:00 PM MOLECULAR BIOLOGY DIRECTOR Vitreous hemorrhage of right eye (HCC) Special Needs REQ 1300 START POC PANEL 4 Routine 05/25/2018 12:09 PM MOLECULAR BIOLOGY DIRECTOR after 09/02/2017 Results POC panel 4 (05/25/2018 12:09 PM MOLECULAR BIOLOGY DIRECTOR) POC sodium 137 135 - 148 mmol/L [facility] POC potassium 4.3 3.5 - 5.0 mmol/L [facility] POC hematocrit 34 (L) 41 - 51 % [facility] Comment: Meter ID: [id number] Manager Of Hospital: Abisai Girard POC glucose 107 (H) 65 - 99 mg/dL [facility] Performing Organization Address City/State/Zipcode Phone Number [facility] DEPARTMENT OF PATHOLOGY AND [address] [place] [address] GENOMIC MEDICINE [facility] [address] [place] [phone] after 09/02/2017 Insurance Payer Benefit Plan / Group Subscriber ID Type Phone Address SILVIA CARCAMO xxxxxxxxxxxx PPO MEDICARE MEDICARE PART A AND B xxxxxxxxxx Medicare [place], [place] Advance Directives Patient has advance care planning documents on file. For more information, please contact:Naren Castro[address] [place] [address]
--- OUTSIDE RECORDS SUMMARY | 2018-09-03 17:14 | XMS REPORT | Continuity of Care Document ---
:1965 Author Organization Interface Problems Problem Status Onset Classification Date Comments Source Date Reported HTN, ESRD ON Active 06/18/19 [facility] DIALYSIS, EDEMA 19 OF UPPER EX ARM SWELLING Active 06/18/19 [facility] 19 UNK Active 05/25/20 [facility] 18 TESIO RELOCATION Active 04/04/20 [facility] 18 Gastroparesis Active 05/30/20 [facility]2017 [facility] nausea and [facility] [place] [id number] Active 02/25/20 Finding 06/05/[address] [facility] [address] kidney injury 17 [facility] [place] HTN Active 02/25/20 Finding 06/05/[address] [facility] [facility] [place] Obesity Active 02/25/20 Finding 06/05/[address] [facility] [facility] [place] Diabetes mellitus Active 02/16/20 Finding 06/05/[address] [facility] [address] [facility] [place] Chest pain Active 08/28/19 Finding 06/05/[address] 16 [facility] [place] Hyperglycemia Active Finding 06/05/[address] [facility] [address] [facility] [place] Uncontrolled Active Finding 06/05/[address] [facility] [address] diabetes mellitus [facility] [place] Renal Active Finding 06/05/[address] [facility] [address] insufficiency [facility] [place] ESSENTIAL [facility] (PRIMARY) HYPERTENSION END STAGE RENAL Active [facility] DISEASE LOCALIZED EDEMA [facility] Medications Medication Details Route Status Patient Ordering Order Source Instructions Provider Date Metoclopramide Hcl THREE TIMES A Active Nunez [facility] St[facility] DAY 2017 [facility] [place] Ondansetron Hcl Q6H PRN For Active [facility] Vomiting 2017 [facility] [place] Furosemide TWICE DAILY Active Nunez [facility] St[facility] 2017 [facility] [place] Zolpidem Tartrate AT BEDTIME Active Alroumoh [facility] St[facility] 2017 [facility] [place] Aspirin DAILY Active [facility] St[facility] 2017 [facility] [place] Nitroglycerin DAILY Active [facility] St[facility] NEEDED PRN For 2017 [facility] Chest Pain [place] Promethazine Hcl EVERY [address] NEEDED PRN 2017 [facility] - For Nausea [place] Pantoprazole DAILY Active St. 2017 [facility] [place] Ranolazine TWICE DAILY Active [facility] St[facility] 2017 [facility] [place] Insulin Lispro DAILY Active [facility] St[facility] 2017 [facility] [place] Furosemide TWICE DAILY Active Prezas [facility] St[facility] 2017 [facility] [place] Hydralazine TWICE DAILY Active [facility] St[facility] 2017 [facility] [place] Furosemide TWICE DAILY AT Active [facility] St. 9am & 5pm 2017 [facility] [place] Atorvastatin DAILY Active [facility] St[facility] Calcium 2017 [facility] [place] Metoprolol Tartrate TWICE DAILY Active [facility] St[facility] 2017 [facility] [place] Nitroglycerin Patch DAILY Active [facility] St[facility] NEEDED PRN For 2017 [facility] Chest Pain [place] Amlodipine DAILY Active [facility] St[facility] 2017 [facility] [place] Clopidogrel DAILY Active [facility] St[facility] Bisulfate 2017 [facility] [place] Furosemide TWICE DAILY Active [facility] 2017 [facility] [place] Hydralazine THREE TIMES A Active [facility] DAY 2017 [facility] [place] Pantoprazole Sodium DAILY Active [facility] 2017 [facility] [place] Metoprolol Tartrate TWICE DAILY Active Strange [facility] St[facility] 2017 [facility] [place] Clopidogrel DAILY Active [facility] Bisulfate 2017 [facility] [place] Atorvastatin AT BEDTIME Active St. Calcium 2017 [facility] [place] Amlodipine DAILY Active [facility] St[facility] 2017 [facility] [place] Clopidogrel DAILY Active [facility] St[facility] Bisulfate 2017 [facility] [place] Metoprolol Tartrate TWICE DAILY Active [facility] St[facility] 2017 [facility] [place] Sertraline DAILY Active [facility] St[facility] 2017 [facility] [place] Tramadol Hcl EVERY 6 HOURS Active [facility] St[facility] PRN For Pain 2017 [facility] [place] Ranolazine DAILY Active [facility] St[facility] 2017 [facility] [place] Sub-Q Insulin DAILY Active . Device, 40 Unit 2017 [facility] [place] Cefdinir TWICE DAILY Active [facility] 2016 [facility] [place] Methylprednisolone DAILY Active [facility] 2016 [facility] [place] Guaifen W/Codeine TWICE DAILY Active [facility] Syrup PRN For Cough 2016 [facility] [place] Amlodipine Besylate DAILY Active [facility] St[facility] 2016 [facility] [place] Clopidogrel DAILY Active [facility] St[facility] Bisulfate 2016 [facility] [place] Fenofibrate DAILY Active [facility] St[facility] 2016 [facility] [place] Insulin Aspart THREE TIMES Active St. DAILY 2016 [facility] - NEEDED PRN For [place] hyperglycemia Liraglutide DAILY Active [facility] St[facility] 2016 [facility] [place] Ranolazine DAILY Active [facility] St[facility] 2016 [facility] [place] Insulin Detemir AT BEDTIME Active [facility] St[facility] 2016 [facility] [place] Metoprolol Tartrate [...] 1965; Age: 53 years y/o Male MR: [id number] Read by: Bill Pineda MD Dictated Date/time: [...] within the left lung. No pneumothorax. 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 IMPRESSION: Small right pleural effusion. SL: [id number] Chest 2 Chest 2 EXAM: XR CHEST [...] normal. IMPRESSION: No acute cardiopulmonary process. SL: [id number] Laboratory Sodium Level 138 mEq/L 135 - 145 06/[address] [facility] [address] Studies [facility] [place] Laboratory Potassium 5.1 mEq/L 3.6 - 5.0 06/[address] [facility] [address] Studies Level [facility] [place] Laboratory Phosphorus 7.4 mg/dL 2.5 - 4.3 06/[address] [facility] [address] Studies Level [facility] [place] Laboratory Glucose 167 mg/dL 65 - 120 06/[address] [facility] [address] Studies Level [facility] [place] Laboratory Estimat 10 mL/min 90 06/[address] [facility] [address] Studies Glomerular [facility] - Filtration [place] Rate Laboratory Creatinine 6.17 mg/dL 0.61 - 06/05 [facility] [address] Studies 1. [facility] [place] Laboratory Chloride 104 mEq/L 101 - 111 06/[address] [facility] [address] Studies Level [facility] [place] Laboratory Carbon 23 mEq/L 21 - 31 06/[address] [facility] [address] Studies Dioxide [facility] - Level [place] Laboratory Calcium 9.1 mg/dL 8.5 - 10.5 06/[address] Studies Level [facility] [place] Laboratory Blood Urea 87 mg/dL 6 - 20 06/05 St[facility] Studies Nitrogen [facility] [place] Laboratory Albumin 3.4 g/dL 3.2 - 5.5 06/05 St[facility] Studies [facility] [place] Laboratory Bedside 155 mg/dl 65 - 120 06/03 [facility] [address] Studies Glucose [facility] [place] Laboratory Urine Urine 06/01 [facility] [address] Studies Immunoelectr Immunoelec [facility] - ophoresis 24 trophoresi [place] Hr s 24 Hr Laboratory Anti-Double 2 IU/mL 06/[address] [facility] [address] Studies Strand DNA [facility] - Antibody [place] Laboratory Anti-Protein null 06/[address] [facility] [address] Studies ase 3 [facility] - (c-ANCA) [place] Laboratory Anti-Myelope null 06/01 [facility]. Studies roxidase Ab [facility] - (p-ANCA) [place] Laboratory Complement 31 mg/dL 06/[address] [facility] [address] Studies C4 [facility] [place] Laboratory Complement 127 mg/dL 06/[address] [facility] [address] Studies C3 [facility] [place] Laboratory Thyroid 2.92 0.34 - 06/01 [facility] [address] Studies Stimulating uIU/mL 5.60 [facility] - Hormone [place] (TSH) Laboratory Anti-Nuclear Anti-Nucle 05/30 [facility]. Studies Antibody ar [facility] - Titer Antibody [place] Titer Laboratory Anti-Nuclear Anti-Nucle 05/30 [facility]. Studies Antibody ar [facility] - Pattern Antibody [place] Pattern Laboratory Anti-Nuclear Anti-Nucle 05/30 [facility] [address] Studies Antibody ar [facility] - Screen Antibody [place] Screen Laboratory Anti-Nuclear Anti-Nucle 05/30 [facility] [address] Studies Antibody ar [facility] - Pattern 2 Antibody [place] Pattern 2 Laboratory Hepatitis C Hepatitis 05/30 [facility]. Studies Antibody C Antibody /2016 [facility] [place] Laboratory Hepatitis C 0.03 ratio 05/30 [facility]. Studies Ab [facility] - Signal/Cutof [place] f Ratio Laboratory Hepatitis B Hepatitis 05/30 [facility]. Studies Surface B Surface /2016 [facility] Antigen Antigen [place] Laboratory Hepatitis B Hepatitis 05/30 [facility]. Studies Surface Ag B Surface /2016 [facility] - Confirmation Ag [place] Confirmati on Laboratory Hepatitis B Hepatitis 05/30 [facility]. Studies Core IgM B Core IgM /2016 [facility] - Antibody Antibody [place] Laboratory Hepatitis A Hepatitis 05/30 [facility]. Studies IgM Antibody A IgM /2016 [facility] Antibody [place] Laboratory HIV-1 RNA, HIV-1 RNA, 05/30 [facility]. Studies Qualitat Qualitat /2016 [facility] - (TMA) (TMA) [place] Comment Comment Laboratory HIV (1&2) Ag HIV (1&2) 05/30 [facility]. Studies and Ab, 4th Ag and Ab, /2016 [employer] - Generation 4th [place] Generation Laboratory HIV (1&2) Ab HIV (1&2) 05/30 [facility]. Studies Differential Ab /2016 [facility] - Comment Differenti [place] al Comment Laboratory Creatine 162 IU/L 22 - 269 05/[address] [facility] [address] Studies Kinase /[facility] Vitamin B12 173 pg/ml 180 - 914 05/30 [facility]. Studies Level /2016 [facility] Total 0.4 mg/dL 0.3 - 1.2 05/30 [facility]. Studies Bilirubin /2016 [facility] Serum Total 6.5 g/dL 6.0 - 8.3 05/30 [facility]. Studies Protein /2016 [facility] Globulin 3.1 g/dL 2.3 - 3.5 05/[address] [facility] [address] Studies /2016 [facility] - [place] Laboratory Ferritin 337.4 23.9 - 05/30 [facility]. Studies ng/ml 336.2 /2016 [facility] [place] Laboratory Aspartate 12 IU/L 10 - 42 05/30 [facility]. Studies Amino Transf /2016 [employer] - (AST/SGOT) [facility] Alkaline 54 IU/L 42 - 121 05/30 [facility]. Studies Phosphatase /2016 [facility] Laboratory Albumin/Glob 1.1 1.1 - 1.8 05/30 [facility]. Studies ulin Ratio /2016 [facility] [place] Laboratory Alanine 10 IU/L 10 - 60 05/30 [facility]. Studies Aminotransfe /2016 [facility] [place] (ALT/SGPT) Laboratory White Blood 7.9 K/uL 4.3 - 10.9 05/30 [facility]. Studies Count /2016 [employer] - [place] Laboratory Red Cell 15.2 % 12.1 - 05/30 [facility]. Studies Distribution 15.2 /2016 [employer] - Width [place] Laboratory Red Blood 2.75 M/uL 4.33 - 05/30 [facility]. Studies Count 5.43 /2016 [employer] - [place] Laboratory Platelet 314 K/uL 152 - 406 05/30 [facility]. Studies Count /2016 [facility] - [place] Laboratory Neutrophils 56.6 % 41.7 - 05/[address] Studies % 73.7 /2016 [facility] [place] Laboratory Monocytes % 12.0 % 3.3 - 12.3 05/30 [facility] [address] Studies /2016 [facility] [place] Laboratory Mean 7.1 fL 7.6 - 11.3 05/[address] [facility] [address] Studies Platelet [facility] - Volume [place] Laboratory Mean 85.4 fL 80 - 100 05/[address] [facility] [address] Studies Corpuscular /2016 [facility] - Volume [place] Laboratory Mean 34.1 g/dL 32.0 - 05/30 [facility] [address] Studies Corpuscular 36.0 /2016 [facility] - Hemoglobin [place] Laboratory Mean 29.1 pg 27.0 - 05/30 [facility] [address] Studies Corpuscular 35.0 /2016 [facility] - Hemoglobin [place] Laboratory Lymphocytes 25.1 % 15.3 - 05/30 [facility] [address] Studies % 44.8 /2016 [facility] [place] Laboratory Hemoglobin 8.0 g/dL 13.6 - 05/30 [facility] [address] Studies 17.9 /2016 [facility] [place] Laboratory Hematocrit 23.5 % 39.6 - 05/30 [facility] [address] Studies 49.0 /2016 [facility] [place] Laboratory Eosinophils 5.7 % 0 - 4.4 05/30 [facility] [address] Studies % /2016 [facility] [place] Laboratory Basophils % 0.6 % 0 - 1.3 05/30 [facility] [address] Studies [facility] [place] Laboratory Absolute 4.5 K/uL 1.8 - 8.0 05/[address] [facility] [address] Studies Neutrophil [facility] - [place] Laboratory Absolute 0.9 K/uL 0.1 - 1.3 05/30 [facility] [address] Studies Monocytes [facility] - (CBC) [place] Laboratory Absolute 2.0 K/uL 0.7 - 4.9 05/30 [facility] [address] Studies Lymphocytes [facility] - (CBC) [place] Laboratory Absolute 0.4 K/uL 0 - 0.5 05/30 [facility]. Studies Eosinophils [facility] - (CBC) [place] Laboratory Absolute 0.0 K/uL 0 - 0.5 05/30 [facility] [address] Studies Basophils [facility] - (CBC) [place] Laboratory Urine WBC null 05/[address] [facility] [address] Studies [facility] - [place] Laboratory Urine null 05/29 [facility]. Studies Squamous /2016 [facility] - Epithelial [place] Cells Laboratory Urine RBC Urine RBC 05/[address] [facility] [address] Studies /2016 [facility] [place] Laboratory Urine Urine 05/29 [facility]. Studies Culture Culture /2016 [facility] - Reflexed Reflexed [place] Laboratory Urine null 05/29 [facility]. Studies Bacteria /2016 [facility] [place] Laboratory Urine Urine 05/29 [facility]. Studies Amorphous Amorphous [facility] - Sediment Sediment [place] Laboratory Direct null 0 - 0.2 05/29 [facility]. Studies Bilirubin /2016 [facility] [place] Laboratory Amylase 70 U/L 28 - 100 05/[address] [facility] [address] Studies Level /2016 [facility] [place] Laboratory Lipase 95 U/L 22 - 51 05/29 [facility]. Studies /2016 [facility] [place] Laboratory Hemoglobin 7.3 % 4 - 6.0 05/11 [facility]. Studies A1c [facility] [place] Laboratory Triglyceride 118 mg/dL 35 - 160 05/11 [facility]. Studies s Level /2016 [facility] [place] Laboratory Magnesium 2.2 mg/dL 1.8 - 2.5 05/11 [facility]. Studies Level /2016 [facility] [place] Laboratory LDL 81 05/11 [facility]. Studies Cholesterol, /2016 [facility] - Calculated [place] Laboratory HDL 26 mg/dL 27 - 67 05/11 [facility]. Studies Cholesterol /2016 [facility] [place] Laboratory Cholesterol/ 5.04 05/11 [facility]. Studies HDL Ratio /2016 [facility] [place] Laboratory Cholesterol 131 mg/dL 05/11 [facility]. Studies Level [facility] [place] Laboratory Troponin I null 05/11 [facility]. Studies [facility] [place] Laboratory Glomerular null 05/10 [facility] Studies Basement /2016 [facility] - Membrane IgG [place] Ab Laboratory Urine pH 6.0 05/10 [facility]. Studies /2016 [facility] [place] Laboratory Urine Total Urine 05/10 [facility] Studies Protein Total /2016 [facility] - Protein [place] Laboratory Urine 1.020 05/10 [facility]. Studies Specific /2016 [facility] [place] Laboratory Urine Urine 05/10 [facility]. Studies Nitrite Nitrite [facility] [place] Laboratory Urine Urine 05/10 [facility]. Studies Leukocyte Leukocyte /2016 [facility] - Esterase Esterase [place] Laboratory Urine Urine 05/10 St[facility] Studies Ketones Ketones [facility] [place] Laboratory Urine Urine 05/10 [facility]. Studies Glucose Glucose [facility] [place] Laboratory Urine Blood Urine 05/[address] [facility] [address] Studies Blood [facility] [place] Laboratory Creatine 11.3 ng/ml 0.3 - 4.0 05/10 [facility] [address] Studies Kinase MB /2016 [facility] [place] Laboratory B-Type 594 pg/ml 05/[address] [facility] [address] Studies Natriuretic [facility] - Peptide [place] Laboratory Rapid null 05/10 [facility]. Studies Troponin I /2016 [facility] [place] Laboratory Prothrombin 11.3 9.5 - 12.5 05/10 [facility] [address] Studies Time SECONDS [facility] - [place] Laboratory INR 0.96 05/10 [facility]. Studies Internationa [facility] - l Normalized [place] Ratio Laboratory Activated 28.5 24.3 - 05/10 [facility]. Studies Partial SECONDS 36.9 [facility] - Thromboplast [place] Time Vital Signs Vital Sign Value Date Comments Source Temperature Oral (F) 97.5 F 06/05/[address] [facility] [address] [facility] [place] Heart Rate 66 06/05/[address] [facility] [address] [facility] [place] Respitory Rate 18 06/05/[address] [facility] [address] [facility] [place] Systolic (mm Hg) 131 06/05/[address] [facility] [address] [facility] [place] Diastolic (mm Hg) 62 06/05/[address] [facility] [address] [place] - [place] Height 75 06/05/2017 [facility] [place] Weight 228 06/05/[address] [facility] [address] [facility] [place] Encounters Location Location Encounter Encounter Reason Attending ADM DC Status Source Details Type Number For Provider Date Date Visit [facility]. Registered [id number] 04/11 [facility] [place] [facility] Registered [id number] 04/[address] [facility] [place] [facility]. Registered [id number] 04/[address] [facility] [address] [place] Referred 65 [facility] [place] [facility]. Registered [id number] 04/[address] [facility] Ref[facility] [place] [facility] St[facility] Departed [id number] 04/27 04/[address] [facility] [address] [place] 73 /2016 [facility] [place] [facility] [place] [facility] [id number] 05/10 05/[address] [facility] [address] [place] Inpatient 99 /2016 [facility] [place] [facility] St[facility] Discharged [id number] 06/01 06/[address] [facility] [address] [place] 75 [facility] [place] Procedures Procedure Code Date Perfomer Comments Source Chest Single [id number] 06/03/[address] [facility] [address] [facility] View [place] Chest Pa And Lat [id number] 06/02/[address] [facility] [address] [facility] - (2 Views) [place] Abdomen & Pelvis [id number] 05/29/[address] [facility] [address] [facility] - Wo Contrast [place] Chest Pa And Lat [id number] 05/11/[address] [facility] [address] [facility] - (2 Views) [place] Abdomen & Pelvis [id number] 05/10/[address] [facility] [address] [facility] - Wo Contrast [place] Chest Single [id number] 05/10/[address] [facility] [address] [facility] - View [place] REMOVAL OF [id number] 04/27/[address] [facility] [address] [facility] - INFUSION DEVICE [place] FROM UPPER VEIN, OPEN APPROACH REMOVAL TUNNELED [id number] 04/27/[address] [facility] [address] [facility] - CV CATH [place]
--- OUTSIDE RECORDS SUMMARY | 2018-09-03 17:15 | XMS REPORT ---
:1965 [facility] Organization [facility] Address [address] [place] [address] Dr. Lugo [address] [place] [address] Care Team Providers Name Role Phone DWIGHT [...] (BEAKER) (test 243 mg/dL 70-110 TESTED AT [facility] [address] [place] [address] zduc=6222) [address] [facility] [address] BASIC METABOLIC [id number] 13:51:00 Test Item Value Reference Range Comments SODIUM (BEAKER) (test 139 meq/L 135-148 hujj=549) POTASSIUM (BEAKER) (test 3.4 meq/L 3.6-5.5 usmp=388) CHLORIDE (BEAKER) (test 101 meq/L 98-106 vqzz=533) CO2 (BEAKER) (test 29 meq/L 20-29 pvgh=583) BLOOD UREA NITROGEN 11 mg/dL 10-26 (BEAKER) (test huyu=445) CREATININE (BEAKER) (test 2.10 mg/dL 0.50-1.20 dwev=649) GLUCOSE RANDOM (BEAKER) 157 mg/dL 70-110 (test lnlh=260) CALCIUM (BEAKER) (test 8.6 mg/dL 8.5-10.5 ywsp=050) EGFR (BEAKER) (test 33 mL/min/1.73 sq m ESTIMATED GFR IS NOT mitw=8432) ACCURATE CREATININE CLEARANCE IN PREDICTING GLOMERULAR FILTRATION RATE. ESTIMATED GFR IS NOT APPLICABLE FOR DIALYSIS PATIENTS. [id number] 13:44:00 Test Item Value Reference Range Comments MAGNESIUM (BEAKER) (test femt=897) 1.9 mg/dL 1.5-3.0 CBC W/PLT COUNT & AUTO [id number] 13:34:00 Test Item Value Reference Range Comments WHITE BLOOD CELL COUNT (BEAKER) (test zjdd=187) 6.8 K/ L 4.0-10.0 RED BLOOD CELL COUNT (BEAKER) (test inlo=170) 2.92 M/ L 4.20-5.80 HEMOGLOBIN (BEAKER) (test gxam=604) 8.4 GM/DL 13.0-16.8 HEMATOCRIT (BEAKER) (test ktlx=197) 25.5 % 40.0-50.0 MEAN CORPUSCULAR VOLUME (BEAKER) (test ywno=140) 87.4 fL 82.0-98.0 MEAN CORPUSCULAR HEMOGLOBIN (BEAKER) (test 28.7 pg 27.0-33.0 htcb=392) MEAN CORPUSCULAR HEMOGLOBIN CONC (BEAKER) (test 32.8 GM/DL 32.0-36.0 xkqr=974) RED CELL DISTRIBUTION WIDTH (BEAKER) (test 14.7 % 10.3-14.2 gpph=482) PLATELET COUNT (BEAKER) (test eyms=132) 299 K/CU MM 150-430 MEAN PLATELET VOLUME (BEAKER) (test xqgi=258) 6.9 fL 6.5-10.5 NUCLEATED RED BLOOD CELLS (BEAKER) (test 0 /100 WBC 0-0 zajl=811) NEUTROPHILS RELATIVE PERCENT (BEAKER) (test 65 % hijs=955) LYMPHOCYTES RELATIVE PERCENT (BEAKER) (test 18 % yezj=278) MONOCYTES RELATIVE PERCENT (BEAKER) (test 14 % nebi=195) EOSINOPHILS RELATIVE PERCENT (BEAKER) (test 3 % bsha=661) BASOPHILS RELATIVE PERCENT (BEAKER) (test 1 % bfmc=100) NEUTROPHILS ABSOLUTE COUNT (BEAKER) (test 4.40 K/ L 1.80-8.00 aolk=687) LYMPHOCYTES ABSOLUTE COUNT (BEAKER) (test 1.20 K/ L 1.48-4.50 pwzs=359) MONOCYTES ABSOLUTE COUNT (BEAKER) (test 1.00 K/ L 0.00-1.30 elsl=660) EOSINOPHILS ABSOLUTE COUNT (BEAKER) (test 0.20 K/ L 0.00-0.50 knpf=367) BASOPHILS ABSOLUTE COUNT (BEAKER) (test 0.00 K/ L 0.00-0.20 eoiy=551) POCT-GLUCOSE [id number] 11:28:00 Test Item Value Reference Range Comments POC-GLUCOSE METER (BEAKER) 147 mg/dL 70-110 TESTED AT [address] (test ufvj=8696) [facility] [address] POCT-GLUCOSE [id number] 06:04:00 Test Item Value Reference Range Comments POC-GLUCOSE METER (BEAKER) 137 mg/dL 70-110 TESTED AT [address] (test neug=2044) [place] [address] POCT-GLUCOSE [id number] 21:01:00 Test Item Value Reference Range Comments POC-GLUCOSE METER (BEAKER) 138 mg/dL 70-110 TESTED AT [address] (test yeum=6205) [place] [address]38 POCT-GLUCOSE [id number] 16:06:00 Test Item Value Reference Range Comments POC-GLUCOSE METER (BEAKER) 167 mg/dL 70-110 TESTED AT [address] (test habm=6087) [place] [address] POCT-GLUCOSE [id number] 12:49:00 Test Item Value Reference Range Comments POC-GLUCOSE METER (BEAKER) 144 mg/dL 70-110 TESTED AT [address] (test necm=2494) [place] [address] [id number] 10:27:00 Test Item Value Reference Range Comments POC-CREATININE (BEAKER) 3.6 mg/dL 0.6-1.3 TESTED AT [address] (test iafv=0191) [place] [address] POC-EGFR (BEAKER) (test 18 mL/min/1.73M2 sbpq=4978) [id number] 10:27:00 Test Item Value Reference Range Comments POC-SODIUM (BEAKER) (test 138 meq/L 135-148 TESTED AT [address] beij=1910) [place] [address] [id number] 10:27:00 Test Item Value Reference Range Comments POC-POTASSIUM (BEAKER) 3.6 meq/L 3.6-5.5 TESTED AT [address] (test qapc=1420) [place] [address]38 [id number] 10:27:00 Test Item Value Reference Range Comments POC-BUN (BEAKER) (test 20 mg/dL 7-21 TESTED AT [address] tffc=7946) [place] [address] [id number] 10:27:00 Test Item Value Reference Range Comments POC-CHLORIDE (BEAKER) (test 97 meq/L 98-107 TESTED AT [address] akdf=3036) [place] [address] [id number] 10:27:00 Test Item Value Reference Range Comments POC-GLUCOSE (BEAKER) (test 123 mg/dL 70-110 TESTED AT [address] tboj=1294) [place] [address] [id number] 10:27:00 Test Item Value Reference Range Comments POC-HEMATOCRIT (BEAKER) (test 24 % 40-50 TESTED AT [address] slli=4393) [place] [address] [id number] 10:27:00 Test Item Value Reference Range Comments POC-HEMOGLOBIN (BEAKER) 8.2 g/dL 13.0-16.8 TESTED AT [address] (test qefv=7939) [place] [address] [id number] 10:27:00 Test Item Value Reference Range Comments POC-TCO2 (BEAKER) (test 30 meq/L 22-29 TESTED AT [address] frkh=1997) [place] [address] POCT-GLUCOSE [id number] 06:08:00 Test Item Value Reference Range Comments POC-GLUCOSE METER (BEAKER) 163 mg/dL 70-110 TESTED AT [address] (test zkkh=7723) [place] [address] POCT-GLUCOSE [id number] 21:07:00 Test Item Value Reference Range Comments POC-GLUCOSE METER (BEAKER) 132 mg/dL 70-110 TESTED AT [facility] [address] [place] [address] (test kdvj=9675) [facility] [address] POCT-GLUCOSE [id number] 12:58:00 Test Item Value Reference Range Comments POC-GLUCOSE METER (BEAKER) 178 mg/dL 70-110 TESTED AT [facility] [address] [place] [address] (test ykdt=9808) [facility] [address] POCT-GLUCOSE [id number] 05:29:00 Test Item Value Reference Range Comments POC-GLUCOSE METER (BEAKER) 171 mg/dL 70-110 TESTED AT [address] (test zcdj=0202) [facility] [address] POCT-GLUCOSE [id number] 22:03:00 Test Item Value Reference Range Comments POC-GLUCOSE METER (BEAKER) 249 mg/dL 70-110 TESTED AT [address] (test tzxd=7074) [facility] [address] POCT-GLUCOSE [id number] 16:45:00 Test Item Value Reference Range Comments POC-GLUCOSE METER (BEAKER) 213 mg/dL 70-110 TESTED AT [address] (test mjmj=8082) [facility] [address] [id number] 16:43:00 Test Item Value Reference Range Comments THYROID STIMULATING HORMONE (BEAKER) (test 2.09 uIU/mL 0.35-5.50 yqww=451) COMPREHENSIVE METABOLIC [id number] 16:24:00 Test Item Value Reference Range Comments TOTAL PROTEIN (BEAKER) 7.2 gm/dL 6.0-8.5 (test sauu=731) ALBUMIN (BEAKER) (test 3.5 g/dL 3.5-5.0 cuff=8156) ALKALINE PHOSPHATASE 67 U/L 30-115 (BEAKER) (test fwcv=626) BILIRUBIN TOTAL (BEAKER) 0.3 mg/dL 0.1-1.2 (test dxdr=259) SODIUM (BEAKER) (test 136 meq/L 135-148 trvf=201) POTASSIUM (BEAKER) (test 4.1 meq/L 3.6-5.5 iehl=691) CHLORIDE (BEAKER) (test 98 meq/L 98-106 yjnd=911) CO2 (BEAKER) (test 26 meq/L 20-29 txsl=109) BLOOD UREA NITROGEN 32 mg/dL 10-26 (BEAKER) (test lnyp=146) CREATININE (BEAKER) (test 4.40 mg/dL 0.50-1.20 uqdz=920) GLUCOSE RANDOM (BEAKER) 212 mg/dL 70-110 (test ndrh=024) CALCIUM (BEAKER) (test 9.0 mg/dL 8.5-10.5 vrqp=886) AST (SGOT) (BEAKER) (test 14 U/L 5-40 aatc=393) ALT (SGPT) (BEAKER) (test 4 U/L 5-50 wahp=182) EGFR (BEAKER) (test 14 mL/min/1.73 sq m ESTIMATED GFR IS NOT gssn=2946) ACCURATE CREATININE CLEARANCE IN PREDICTING GLOMERULAR FILTRATION RATE. ESTIMATED GFR IS NOT APPLICABLE FOR DIALYSIS PATIENTS. CBC W/PLT COUNT & AUTO [id number] 16:02:00 Test Item Value Reference Range Comments WHITE BLOOD CELL COUNT (BEAKER) (test ydzn=900) 6.9 K/ L 4.0-10.0 RED BLOOD CELL COUNT (BEAKER) (test bsai=227) 2.95 M/ L 4.20-5.80 HEMOGLOBIN (BEAKER) (test igui=443) 8.6 GM/DL 13.0-16.8 HEMATOCRIT (BEAKER) (test pgqb=459) 25.9 % 40.0-50.0 MEAN CORPUSCULAR VOLUME (BEAKER) (test wsvh=328) 87.9 fL 82.0-98.0 MEAN CORPUSCULAR HEMOGLOBIN (BEAKER) (test 29.0 pg 27.0-33.0 ztwk=754) MEAN CORPUSCULAR HEMOGLOBIN CONC (BEAKER) (test 33.0 GM/DL 32.0-36.0 avdy=581) RED CELL DISTRIBUTION WIDTH (BEAKER) (test 15.0 % 10.3-14.2 itpe=377) PLATELET COUNT (BEAKER) (test tzag=985) 330 K/CU MM 150-430 MEAN PLATELET VOLUME (BEAKER) (test wscg=553) 7.1 fL 6.5-10.5 NUCLEATED RED BLOOD CELLS (BEAKER) (test 0 /100 WBC 0-0 nkiz=923) NEUTROPHILS RELATIVE PERCENT (BEAKER) (test 66 % dedf=021) LYMPHOCYTES RELATIVE PERCENT (BEAKER) (test 16 % wgcg=060) MONOCYTES RELATIVE PERCENT (BEAKER) (test 12 % cvhp=112) EOSINOPHILS RELATIVE PERCENT (BEAKER) (test 5 % lzep=011) BASOPHILS RELATIVE PERCENT (BEAKER) (test 1 % vett=268) NEUTROPHILS ABSOLUTE COUNT (BEAKER) (test 4.60 K/ L 1.80-8.00 uawn=405) LYMPHOCYTES ABSOLUTE COUNT (BEAKER) (test 1.10 K/ L 1.48-4.50 xrpi=539) MONOCYTES ABSOLUTE COUNT (BEAKER) (test 0.80 K/ L 0.00-1.30 ckjb=884) EOSINOPHILS ABSOLUTE COUNT (BEAKER) (test 0.30 K/ L 0.00-0.50 wvbt=436) BASOPHILS ABSOLUTE COUNT (BEAKER) (test 0.10 K/ L 0.00-0.20 sksc=286) PROTHROMBIN [id number] 16:01:00 Test Item Value Reference Range Comments PROTIME (BEAKER) (test rmws=782) 10.3 seconds 9.3-12.0 INR (BEAKER) (test prpm=758) 1.0 <=5.9 RECOMMENDED COUMADIN/WARFARIN INR THERAPY RANGESSTANDARD DOSE: 2.0 - 3.0 Includes: PROPHYLAXIS forvenous thrombosis, systemic embolization; TREATMENT for venous thrombosis and/or pulmonary embolus.HIGH RISK: Target INR is 2.5-3.5 for patients with mechanical heart valves.POCT-GLUCOSE [id number] 12:01:00 Test Item Value Reference Range Comments POC-GLUCOSE METER (BEAKER) 211 mg/dL 70-110 TESTED AT [address] (test jbax=5673) [facility] [address] POCT-GLUCOSE [id number] 06:08:00 Test Item Value Reference Range Comments POC-GLUCOSE METER (BEAKER) 191 mg/dL 70-110 TESTED AT [address] (test kgge=1360) [facility] [address] POCT-GLUCOSE [id number] 21:28:00 Test Item Value Reference Range Comments POC-GLUCOSE METER (BEAKER) 233 mg/dL 70-110 TESTED AT [address] (test hypa=9358) [facility] [address] POCT-GLUCOSE [id number] 16:19:00 Test Item Value Reference Range Comments POC-GLUCOSE METER (BEAKER) 290 mg/dL 70-110 TESTED AT [address] (test dfwe=3230) [facility] [address] POCT-GLUCOSE [id number] 13:33:00 Test Item Value Reference Range Comments POC-GLUCOSE METER (BEAKER) 186 mg/dL 70-110 TESTED AT [address] (test ydml=6262) [facility] [address] POCT-GLUCOSE [id number] 06:27:00 Test Item Value Reference Range Comments POC-GLUCOSE METER (BEAKER) 204 mg/dL 70-110 TESTED AT [address] (test klpt=2140) [facility] [address] POCT-GLUCOSE [id number] 21:40:00 Test Item Value Reference Range Comments POC-GLUCOSE METER (BEAKER) 267 mg/dL 70-110 TESTED AT [address] (test snsq=1284) [facility] [address] POCT-GLUCOSE [id number] 17:32:00 Test Item Value Reference Range Comments POC-GLUCOSE METER (BEAKER) 221 mg/dL 70-110 TESTED AT [address] (test idyx=6886) [facility] [address] HEPATITIS B SURFACE [id number] 14:21:00 Test Item Value Reference Range Comments HEPATITIS B SURFACE ANTIBODY (BEAKER) (test < mIU/mL <8.0 fprf=571) HEPATITIS B CORE ANTIBODY, [id number] 14:15:00 Test Item Value Reference Range Comments HEPATITIS B CORE TOTAL ANTIBODY (BEAKER) (test Nonreactive Nonreactive wzla=497) POCT-GLUCOSE [id number] 12:18:00 Test Item Value Reference Range Comments POC-GLUCOSE METER (BEAKER) 193 mg/dL 70-110 TESTED AT [address] (test cety=7588) [facility] [address] RAD, CHEST, 1 VIEW, NON [id number] 08:49:00Reason for exam:->for outpatient HD placementShould this [...] MDReport Verified Date/Time: 06/10/2017 08:49:42 Reading Location: [facility] Radiology Reading Room Electronically signed by: SACHI HAMMER on 2016 08:49 AMPOCT-GLUCOSE [id number] 06:53:00 Test Item Value Reference Range Comments POC-GLUCOSE METER (BEAKER) 177 mg/dL 70-110 TESTED AT [address] (test dzje=5146) [facility] [address] POCT-GLUCOSE [id number] 22:10:00 Test Item Value Reference Range Comments POC-GLUCOSE METER (BEAKER) 109 mg/dL 70-110 TESTED AT [address] (test igkx=4412) [facility] [address] HEPATITIS B SURFACE [id number] 20:18:00 Test Item Value Reference Range Comments HEPATITIS B SURFACE ANTIGEN (2) (BEAKER) (test Nonreactive Nonreactive tmdk=8007) POCT-GLUCOSE [id number] 17:08:00 Test Item Value Reference Range Comments POC-GLUCOSE METER (BEAKER) 223 mg/dL 70-110 TESTED AT [address] (test lhlj=0697) [facility] [address] POCT-GLUCOSE [id number] 12:47:00 Test Item Value Reference Range Comments POC-GLUCOSE METER (BEAKER) 200 mg/dL 70-110 TESTED AT [address] (test fozw=3551) [facility] [address] ANG, TUNNELED CATHETER [id number] 12:13:00Reason for exam:->renal failureFINAL REPORT Tunneled central [...] the patient's medical record by the nurse. Chairman [employer] Co Founder: Onesimo Lopez MD. Spinner Operator: None. Approach: Right internal jugular vein Estimated [...] needle into the right atrium. A 4 Burmese micropuncture sheath was placed. A subcutaneous tunnel was created in the right anterior chest wall by blunt dissection. A 19 cm tipped cuff 15.5 Burmese Duraflow 2 catheter was brought through the [...] Lopezort Verified Date/Time: 06/09/2017 12:13:36 Reading Location: [facility] Radiology Reading Room 12 :13 PMPOCT-GLUCOSE [id number] 06:03:00 Test Item Value Reference Range Comments POC-GLUCOSE METER (BEAKER) 208 mg/dL 70-110 TESTED AT [facility] [address] [facility] (test vumf=2498) [address] [facility] [address] BASIC METABOLIC [id number] 06:00:00 Test Item Value Reference Range Comments SODIUM (BEAKER) (test 139 meq/L 135-148 esbd=067) POTASSIUM (BEAKER) (test 3.5 meq/L 3.6-5.5 xzob=880) CHLORIDE (BEAKER) (test 103 meq/L 98-106 uwow=709) CO2 (BEAKER) (test 26 meq/L 20-29 ejgo=136) BLOOD UREA NITROGEN 62 mg/dL 10-26 (BEAKER) (test rgzm=165) CREATININE (BEAKER) (test 5.10 mg/dL 0.50-1.20 qodf=138) GLUCOSE RANDOM (BEAKER) 191 mg/dL 70-110 (test cfdk=363) CALCIUM (BEAKER) (test 9.0 mg/dL 8.5-10.5 sdri=409) EGFR (BEAKER) (test 12 mL/min/1.73 sq m ESTIMATED GFR IS NOT wpkv=5123) ACCURATE CREATININE CLEARANCE IN PREDICTING GLOMERULAR FILTRATION RATE. ESTIMATED GFR IS NOT APPLICABLE FOR DIALYSIS PATIENTS. HEPATIC FUNCTION [id number] 05:58:00 Test Item Value Reference Range Comments TOTAL PROTEIN (BEAKER) (test ihnh=936) 6.3 gm/dL 6.0-8.5 ALBUMIN (BEAKER) (test hjio=0121) 3.2 g/dL 3.5-5.0 BILIRUBIN TOTAL (BEAKER) (test tofr=035) 0.4 mg/dL 0.1-1.2 BILIRUBIN DIRECT (BEAKER) (test mima=076) 0.2 mg/dL 0.0-0.4 ALKALINE PHOSPHATASE (BEAKER) (test akpp=864) 67 U/L 30-115 AST (SGOT) (BEAKER) (test lmvj=101) 13 U/L 5-40 ALT (SGPT) (BEAKER) (test rdeo=843) 10 U/L 5-50 CBC W/PLT COUNT & AUTO [id number] 05:56:00 Test Item Value Reference Range Comments WHITE BLOOD CELL COUNT (BEAKER) (test cfdb=062) 6.3 K/ L 4.0-10.0 RED BLOOD CELL COUNT (BEAKER) (test hjjm=962) 2.71 M/ L 4.20-5.80 HEMOGLOBIN (BEAKER) (test kuia=141) 7.8 GM/DL 13.0-16.8 HEMATOCRIT (BEAKER) (test gwva=346) 23.6 % 40.0-50.0 MEAN CORPUSCULAR VOLUME (BEAKER) (test ajob=950) 86.8 fL 82.0-98.0 MEAN CORPUSCULAR HEMOGLOBIN (BEAKER) (test 28.6 pg 27.0-33.0 qzma=345) MEAN CORPUSCULAR HEMOGLOBIN CONC (BEAKER) (test 33.0 GM/DL 32.0-36.0 hojg=701) RED CELL DISTRIBUTION WIDTH (BEAKER) (test 14.8 % 10.3-14.2 tess=699) PLATELET COUNT (BEAKER) (test jvcw=363) 334 K/CU MM 150-430 MEAN PLATELET VOLUME (BEAKER) (test nger=652) 6.9 fL 6.5-10.5 NUCLEATED RED BLOOD CELLS (BEAKER) (test 0 /100 WBC 0-0 apxb=355) NEUTROPHILS RELATIVE PERCENT (BEAKER) (test 57 % ohud=385) LYMPHOCYTES RELATIVE PERCENT (BEAKER) (test 19 % gbyl=096) MONOCYTES RELATIVE PERCENT (BEAKER) (test 15 % pfnl=095) EOSINOPHILS RELATIVE PERCENT (BEAKER) (test 7 % tipr=608) BASOPHILS RELATIVE PERCENT (BEAKER) (test 1 % flkp=523) NEUTROPHILS ABSOLUTE COUNT (BEAKER) (test 3.60 K/ L 1.80-8.00 gcke=775) LYMPHOCYTES ABSOLUTE COUNT (BEAKER) (test 1.20 K/ L 1.48-4.50 sktw=597) MONOCYTES ABSOLUTE COUNT (BEAKER) (test 1.00 K/ L 0.00-1.30 yfya=791) EOSINOPHILS ABSOLUTE COUNT (BEAKER) (test 0.50 K/ L 0.00-0.50 tdxz=949) BASOPHILS ABSOLUTE COUNT (BEAKER) (test 0.10 K/ L 0.00-0.20 fvvl=173) [id number] 05:55:00 Test Item Value Reference Range Comments PHOSPHORUS (BEAKER) (test ennt=719) 4.1 mg/dL 2.5-4.5 [id number] 05:51:00 Test Item Value Reference Range Comments PROTIME (BEAKER) (test nrsd=661) 10.7 seconds 9.3-12.0 INR (BEAKER) (test glsi=320) 1.0 <=5.9 PARTIAL THROMBOPLASTIN TIME (BEAKER) (test 28.5 seconds 23.0-35.0 yuck=254) RECOMMENDED COUMADIN/WARFARIN INR THERAPY RANGESSTANDARD DOSE: 2.0 - 3.0 Includes: PROPHYLAXIS forvenous thrombosis, systemic embolization; TREATMENT for venous thrombosis and/or pulmonary embolus.HIGH RISK: Target INR is 2.5-3.5 for patients with mechanical heart valves.[id number] 05:50:00 Test Item Value Reference Range Comments MAGNESIUM (BEAKER) (test ehoy=355) 1.7 mg/dL 1.5-3.0 POCT-GLUCOSE [id number] 23:14:00 Test Item Value Reference Range Comments POC-GLUCOSE METER (BEAKER) 230 mg/dL 70-110 TESTED AT [address] (test uojh=8982) [place] [facility] [address]
[2018-09-03] MEDS ORDERED: FAMOTIDINE 20 MG/2 ML VIAL IV ONE (17:55)
[2018-09-03] MEDS ORDERED: ONDANSETRON 4 MG/2 ML VIAL ONE (17:55)
[2018-09-03] MEDS ORDERED: NA CHLORIDE 0.9% 1,000 ML ONE (17:55)
[2018-09-03 17:58] LABS: Absolute Lymphocytes (CBC) 0.6 K/uL (0.7-4.9); Absolute Monocytes 0.7 K/uL (0.1-1.3); Absolute Neutrophil 5.4 K/uL (1.8-8.0); Basophils % 0.9 % (0-1.3); Eosinophils % 8.5 % (0-4.4); Hematocrit 39.1 % (39.6-49.0); Lymphocytes % 8.6 % (15.3-44.8); MPV 8.1 fL (7.6-11.3); Monocytes % 9.6 % (3.3-12.3); RBC Red Blood Cell Count 4.37 M/uL (4.33-5.43)
[2018-09-03 18:02] LABS: Protime INR 1.11
--- NOTE | 2018-09-03 18:08 | RAD REPORT ---
EXAM DESCRIPTION: RAD - Chest Single View - 09/03/2018 5:55 pm CLINICAL HISTORY: Cough;Abdominal distention Chest pain. COMPARISON: Chest Single View dated 06/21/2018; Chest Single View dated 04/29/2018; Chest Single View dated 04/28/2018; Chest Single View dated 01/25/2018 FINDINGS: Portable technique limits examination quality. Mild to moderate pulmonary edema is seen with small bilateral pleural effusions. The heart is moderat ирина enlarged in size. No displaced fractures. IMPRESSION: Mild CHF versus volume overload pattern.
--- NOTE | 2018-09-03 18:16 | EDPHYS ---
Physician Documentation [facility] [place] [facility] Name: Yusuf Bah Age: 53 yrs Sex: Male : 1965 Arrival Date: 09/03/2018 Time: 17:04 Bed 20 Private MD: Lori Chavarria C ED Physician Baldemar Batres HPI: 09/03 18:09 This 53 yrs old Male presents to ER via Ambulatory with complaints of logan Vomiting. 18:09 The patient presents to the emergency department with nausea, vomiting, abdominal pain. logan Onset: The symptoms/episode began/occurred 2 day(s) ago. Possible causes: unknown. The symptoms are aggravated by pressure, food , The symptoms are alleviated by nothing. remaining still. Associated signs and symptoms: The patient has no apparent associated signs or symptoms. Severity of symptoms: At their worst the symptoms were mild in the emergency department the symptoms are unchanged. The patient has experienced similar episodes in the past. Historical: - Allergies: 17:21 Sulfa (Sulfonamide Antibiotics); - Home Meds: 17:21 Ambien 5 mg Oral tab 1 tab once daily [Active]; amlodipine 10 mg tab 1 tab once daily [Active]; aspirin 325 mg Oral tab 1 tab once daily [Active]; atorvastatin 80 mg Oral tab 1 tab once daily [Active]; clonidine HCl 0.1 mg Oral tab 1 tab 3 times per day [Active]; famotidine 40 mg Oral tab 1 tab once daily [Active]; furosemide 40 mg Oral tab 1 tab 2 times per day [Active]; Humalog Sub-Q per insulin pump [Active]; hydralazine 25 mg Oral tab 3 tab 2 times per day [Active]; hydralazine 25 mg Oral tab 3 tab 2 times per day [Active]; lactulose 10 gram/15 mL Oral soln 30 mL once daily [Active]; Lasix 40 mg Oral tab 2 times per day [Active]; metoclopramide HCl 5 mg Oral tab 1 tab three times a day [Active]; metoprolol tartrate 100 mg Oral tab 1 tab 2 times per day [Active]; nitroglycerin 0.2 mg/hr Topical pt24 1 patch as needed [Active]; Nitrostat 0.4 mg SL subl 1 tab every 5 minutes [Active]; [place] 7.5-325 mg Oral tab 1 tab twice a day [Active]; Norvasc 10 mg Oral tab 1 tab once daily [Active]; Plavix 75 mg Oral tab 1 tab once daily [Active]; Prevacid 30 mg Oral cpDR 1 cap once daily [Active]; promethazine 25 mg Oral tab 1 tab every 8 hours [Active]; Ranexa 1,000 mg Oral Tb12 1 tab daily [Active]; sertraline 50 mg Oral tab 1 tab once daily [Active]; sevelamer HCl Oral 2 tabs 3 times per day [Active]; Stool Softener 100 mg Oral tab 1 tab 2 times per day [Active]; Travatan Z 0.004 % ophthalmic drop 1 drop once daily [Active]; Vitamin D2 50,000 unit Oral cap 1 cap once wkly [Active]; Zofran (as hydrochloride) 4 mg Oral tab 1 tabs every 6 hours [Active]; - PMHx: 17:21 Angina; CAD; Depression; Diabetes - IDDM; Dialysis; GERD; Glaucoma; High Cholesterol; hj Hypertension; Renal Disease; Small vessle disease of the heart; - PSHx: 17:21 Cholecystectomy; Appendectomy; shoulder; hj - Immunization history:: Adult Immunizations up to date. - Social history:: Smoking status: Patient/guardian denies using tobacco, Patient/guardian denies using alcohol. - Ebola Screening: : Patient negative for fever greater than or equal to 101.5 degrees Fahrenheit, and additional compatible Ebola Virus Disease symptoms Patient denies exposure to infectious person Patient denies travel to an Ebola-affected area in the 21 days before illness onset. - Family history:: not pertinent. ROS: 18:09 Constitutional: Negative for fever, chills, and weight loss, Eyes: Negative for injury, logan pain, redness, and discharge, ENT: Negative for injury, pain, and discharge, Neck: Negative for injury, pain, and swelling, Cardiovascular: Negative for chest pain, palpitations, and edema, Respiratory: Negative for shortness of breath, cough, wheezing, and pleuritic chest pain, Back: Negative for injury and pain, : Negative for injury, bleeding, discharge, and swelling, MS/Extremity: Negative for injury and deformity, Skin: Negative for injury, rash, and discoloration, Neuro: Negative for headache, weakness, numbness, tingling, and seizure, Psych: Negative for depression, anxiety, suicide ideation, homicidal ideation, and hallucinations, Allergy/Immunology: Negative for hives, rash, and allergies, Endocrine: Negative for neck swelling, polydipsia, polyuria, polyphagia, and marked weight changes, Hematologic/Lymphatic: Negative for swollen nodes, abnormal bleeding, and unusual bruising. 18:09 Abdomen/GI: Positive for abdominal pain, nausea and vomiting. Exam: 18:09 Constitutional: This is a well developed, well nourished patient who is awake, alert, logan and in no acute distress. Head/Face: Normocephalic, atraumatic. Eyes: Pupils equal round and reactive to light, extra-ocular motions intact. Lids and lashes normal. Conjunctiva and sclera are non-icteric and not injected. Cornea within normal limits. Periorbital areas with no swelling, redness, or edema. ENT: Nares patent. No nasal discharge, no septal abnormalities noted. Tympanic membranes are normal and external auditory canals are clear. Oropharynx with no redness, swelling, or masses, exudates, or evidence of obstruction, uvula midline. Mucous membranes moist. Neck: Trachea midline, no thyromegaly or masses palpated, and no cervical lymphadenopathy. Supple, full range of motion without nuchal rigidity, or vertebral point tenderness. No Meningismus. Chest/axilla: Normal chest wall appearance and motion. Nontender with no deformity. No lesions are appreciated. Cardiovascular: Regular rate and rhythm with a normal S1 and S2. No gallops, murmurs, or rubs. Normal PMI, no JVD. No pulse deficits. Respiratory: Lungs have equal breath sounds bilaterally, clear to auscultation and percussion. No rales, rhonchi or wheezes noted. No increased work of breathing, no retractions or nasal flaring. Back: No spinal tenderness. No costovertebral tenderness. Full range of motion. Male : Normal genitalia with no discharge or lesions. Skin: Warm, dry with normal turgor. Normal color with no rashes, no lesions, and no evidence of cellulitis. MS/ Extremity: Pulses equal, no cyanosis. Neurovascular intact. Full, normal range of motion. Neuro: Awake and alert, GCS 15, oriented to person, place, time, and situation. Cranial nerves II-XII grossly intact. Motor strength 5/5 in all extremities. Sensory grossly intact. Cerebellar exam normal. Normal gait. Psych: Awake, alert, with orientation to person, place and time. Behavior, mood, and affect are within normal limits. 18:09 Abdomen/GI: Inspection: abdomen appears normal, Bowel sounds: normal, Palpation: mild abdominal tenderness, Liver: no appreciated palpable abnormalities, Hernia: not appreciated. Vital Signs: 17:23 BP 190 / 94; Pulse 102; Resp 18; Temp 98.1(O); Pulse Ox 100% on R/A; Weight 97.52 kg; hj Height 6 ft. 3 in. (190.50 cm); Pain 0/10; 19:30 BP 179 / 77; Pulse 95; Resp 23 S; Temp 98.7(O); Pulse Ox 96% on 2 lpm NC; cc3 20:55 BP 165 / 73; Pulse 95; Resp 23 S; Pulse Ox 96% on 2 lpm NC; cc3 21:18 BP 169 / 76; Pulse 94; Resp 23 S; Pulse Ox 95% on 2 lpm NC; cc3 17:23 Body Mass Index 26.87 (97.52 kg, 190.50 cm) MDM: 17:42 Patient medically screened. [facility] 18:14 Data reviewed: vital signs, nurses notes, lab test result(s), EKG, radiologic studies, logan plain films. 09/03 17:43 Order name: Basic Metabolic Panel; Complete Time: 19:20 [facility] 09/03 17:43 Order name: CBC with Diff; Complete Time: 19:20 [facility] 09/03 17:43 Order name: LFT's; Complete Time: 19:20 [facility] 09/03 17:43 Order name: Magnesium; Complete Time: 19:20 [facility] 09/03 17:43 Order name: NT PRO-BNP; Complete Time: 19:20 [facility] 09/03 17:43 Order name: PT-INR; Complete Time: 19:20 [facility] 09/03 17:43 Order name: Troponin (emerg Dept Use Only); Complete Time: 19:20 [facility] 09/03 17:43 Order name: XRAY Chest (1 view); Complete Time: 19:20 [facility] 09/03 17:43 Order name: Lipase; Complete Time: 19:20 [facility] 09/03 17:43 Order name: EKG; Complete Time: 17:44 [facility] 09/03 17:43 Order name: Cardiac monitoring; Complete Time: 17:52 logan 09/03 17:43 Order name: EKG - Nurse/Tech; Complete Time: 17:53 logan 09/03 17:43 Order name: IV Saline Lock; Complete Time: 17:53 logan 09/03 17:43 Order name: Labs collected and sent; Complete Time: 17:53 [facility] 09/03 17:43 Order name: O2 Per Protocol; Complete Time: 17:53 logan 09/03 17:43 Order name: O2 Sat Monitoring; Complete Time: 17:53 [facility] 09/03 17:44 Order name: EKG Electrocardiogram; Complete Time: 18:14 EDMS 09/03 18:22 Order name: CONS Physician Consult EDMS Administered Medications: 17:47 CANCELLED (Duplicate Order): NS 0.9% 1000 ml IV at 1 bolus Per protocol; 1000 mL bolus [facility] 17:47 Drug: Zofran 4 mg Route: IVP; Site: left antecubital; tw2 18:25 Follow up: Response: No adverse reaction tw2 17:49 Drug: Pepcid 20 mg Route: IVP; Site: left antecubital; tw2 18:25 Follow up: Response: No adverse reaction tw2 18:20 Drug: Phenergan 12.5 mg Route: IVP; Site: left antecubital; tw2 19:03 Follow up: Response: No adverse reaction; Nausea is decreased tw2 18:23 Drug: morphine 4 mg Route: IVP; Site: left antecubital; tw2 19:03 Follow up: Response: No adverse reaction tw2 20:00 Drug: Aspirin 81 mg Route: PO; cc3 21:00 Follow up: Response: No adverse reaction cc3 20:00 Drug: PlaVIX 75 mg Route: PO; cc3 21:00 Follow up: Response: No adverse reaction cc3 20:05 Drug: Lasix 60 mg Route: IVP; Site: left antecubital; cc3 20:30 Follow up: Response: No adverse reaction cc3 20:30 Drug: morphine 4 mg Route: IVP; Site: left antecubital; cc3 21:00 Follow up: Response: No adverse reaction; Pain is decreased cc3 Disposition: 09/03/18 18:15 Hospitalization ordered by Lori Chavarria for Inpatient Admission. Preliminary diagnosis are Vomiting, Abdominal tenderness, End stage renal disease, Type 1 diabetes mellitus, Gastroparesis, Unspecified combined systolic (congestive) and diastolic (congestive) heart failure, Essential (primary) hypertension. - Bed requested for Telemetry/MedSurg (Inpatient). - Status is Inpatient Admission. cc3 - Condition is Fair. - Problem is new. - Symptoms have improved. UTI on Admission? No Signatures: Dispatcher [employer] EDBaldemar Otto MD MD cha Joaquin, Henry, RN RN Yareli Trejo RN RN Rajni Flaherty RN RN tw2 Elodia Macdonald cc3 Corrections: (The following items were deleted from the chart) 17:47 17:43 NS 0.9% 1000 ml IV at 1 bolus Per protocol; 1000 mL bolus ordered. logan ford 19:24 18:15 Hospitalization Ordered by A Aura CHATMAN for Inpatient Admission. Preliminary [facility] diagnosis is Vomiting; Abdominal tenderness; End stage renal disease; Type 1 diabetes mellitus; Gastroparesis. Bed requested for Telemetry/MedSurg (Inpatient). Status is Inpatient Admission. Condition is Fair. Problem is new. Symptoms have improved. UTI on Admission? No. logan 19:36 19:24 09/03/2018 18:15 Hospitalization Ordered by A Aura CHATMAN for Inpatient Admission. cg Preliminary diagnosis is Vomiting; Abdominal tenderness; End stage renal disease; Type 1 diabetes mellitus; Gastroparesis; Unspecified combined systolic (congestive) and diastolic (congestive) heart failure; Essential (primary) hypertension. Bed requested for Telemetry/MedSurg (Inpatient). Status is Inpatient Admission. Condition is Fair. Problem is new. Symptoms have improved. UTI on Admission? No. logan 21:32 19:36 09/03/2018 18:15 Hospitalization Ordered by A Aura CHATMAN for Inpatient Admission. cc3 Preliminary diagnosis is Vomiting; Abdominal tenderness; End stage renal disease; Type 1 diabetes mellitus; Gastroparesis; Unspecified combined systolic (congestive) and diastolic (congestive) heart failure; Essential (primary) hypertension. Bed requested for Telemetry/MedSurg (Inpatient). Status is Inpatient Admission. Condition is Fair. Problem is new. Symptoms have improved. UTI on Admission? No. cg
--- NOTE | 2018-09-03 18:16 | ER ---
Nurse's Notes [facility] Name: Yusuf Bah Age: 53 yrs Sex: Male : 1965 Arrival Date: 09/03/2018 Time: 17:04 Bed 20 Private MD: Lori Chavarria C Diagnosis: Vomiting;Abdominal tenderness;End stage renal disease;Type 1 diabetes mellitus;Gastroparesis;Unspecified combined systolic (congestive) and diastolic (congestive) heart failure;Essential (primary) hypertension Presentation: 09/03 17:18 Presenting complaint: Patient states: i just keep vomiting for 3 days now, i cant hold hj my medicine down; denies fever; reports back pain; dialysis pt, denies missing dialysis MWF;. Transition of care: patient was not received from another setting of care. Onset of symptoms was September 03, 2018. Risk Assessment: Do you want to hurt yourself or someone else? Patient reports no desire to harm self or others. Initial Sepsis Screen: Does the patient meet any 2 criteria? No. Patient's initial sepsis screen is negative. Does the patient have a suspected source of infection? No. Patient's initial sepsis screen is negative. Care prior to arrival: None. 17:18 Method Of Arrival: Ambulatory 17:18 Acuity: ALVERTO 3 hj Triage Assessment: 17:22 General: Appears in no apparent distress. uncomfortable, Behavior is calm, cooperative, hj appropriate for age. Pain: Complains of pain in back. GI: Reports nausea, vomiting. Historical: - Allergies: 17:21 Sulfa (Sulfonamide Antibiotics); hj - Home Meds: 17:21 Ambien 5 mg Oral tab 1 tab once daily [Active]; amlodipine 10 mg tab 1 tab once daily [Active]; aspirin 325 mg Oral tab 1 tab once daily [Active]; atorvastatin 80 mg Oral tab 1 tab once daily [Active]; clonidine HCl 0.1 mg Oral tab 1 tab 3 times per day [Active]; famotidine 40 mg Oral tab 1 tab once daily [Active]; furosemide 40 mg Oral tab 1 tab 2 times per day [Active]; Humalog Sub-Q per insulin pump [Active]; hydralazine 25 mg Oral tab 3 tab 2 times per day [Active]; hydralazine 25 mg Oral tab 3 tab 2 times per day [Active]; lactulose 10 gram/15 mL Oral soln 30 mL once daily [Active]; Lasix 40 mg Oral tab 2 times per day [Active]; metoclopramide HCl 5 mg Oral tab 1 tab three times a day [Active]; metoprolol tartrate 100 mg Oral tab 1 tab 2 times per day [Active]; nitroglycerin 0.2 mg/hr Topical pt24 1 patch as needed [Active]; Nitrostat 0.4 mg SL subl 1 tab every 5 minutes [Active]; [place] 7.5-325 mg Oral tab 1 tab twice a day [Active]; Norvasc 10 mg Oral tab 1 tab once daily [Active]; Plavix 75 mg Oral tab 1 tab once daily [Active]; Prevacid 30 mg Oral cpDR 1 cap once daily [Active]; promethazine 25 mg Oral tab 1 tab every 8 hours [Active]; Ranexa 1,000 mg Oral Tb12 1 tab daily [Active]; sertraline 50 mg Oral tab 1 tab once daily [Active]; sevelamer HCl Oral 2 tabs 3 times per day [Active]; Stool Softener 100 mg Oral tab 1 tab 2 times per day [Active]; Travatan Z 0.004 % ophthalmic drop 1 drop once daily [Active]; Vitamin D2 50,000 unit Oral cap 1 cap once wkly [Active]; Zofran (as hydrochloride) 4 mg Oral tab 1 tabs every 6 hours [Active]; - PMHx: 17:21 Angina; CAD; Depression; Diabetes - IDDM; Dialysis; GERD; Glaucoma; High Cholesterol; hj Hypertension; Renal Disease; Small vessle disease of the heart; - PSHx: 17:21 Cholecystectomy; Appendectomy; shoulder; hj - Immunization history:: Adult Immunizations up to date. - Social history:: Smoking status: Patient/guardian denies using tobacco, Patient/guardian denies using alcohol. - Ebola Screening: : Patient negative for fever greater than or equal to 101.5 degrees Fahrenheit, and additional compatible Ebola Virus Disease symptoms Patient denies exposure to infectious person Patient denies travel to an Ebola-affected area in the 21 days before illness onset. - Family history:: not pertinent. Screenin:22 Abuse screen: Denies threats or abuse. Denies injuries from another. Nutritional hj screening: No deficits noted. Tuberculosis screening: No symptoms or risk factors identified. Fall Risk None identified. Assessment: 17:22 GI: Abdomen is non-distended. hj 17:54 General: Appears uncomfortable, Behavior is cooperative. General: Appears ill. tw2 Cardiovascular: Heart tones S1 S2 Patient's skin is warm and dry. Respiratory: Airway is patent Respiratory effort is even, unlabored, Respiratory pattern is regular, symmetrical. GI: Pt is actively vomiting "dry heaving, but it has mostly been clear", "this has been going on for over a year now" Bowel sounds present X 4 quads. GI: Reports lower abdominal pain, upper abdominal pain. : No signs and/or symptoms were reported regarding the genitourinary system. EENT: No signs and/or symptoms were reported regarding the EENT system. Derm: No signs and/or symptoms reported regarding the dermatologic system. Skin is dry, Skin temperature is warm. Musculoskeletal: Range of motion: intact in all extremities. 19:15 Reassessment: Patient appears in no apparent distress at this time. Patient and/or cc3 family updated on plan of care and expected duration. Pain level reassessed. Patient is alert, oriented x 3, equal unlabored respirations, skin warm/dry/pink. Received this female patient from morning shift LUIZ Urban as a case of vomiting and ESRD for admission awaiting for bed availability. With IV cannula gauge 20 at the left ACV saline locked. On oxygen therapy by nasal cannula at 3 LPM saturating well. Noted to have right arm fistula on hemodialysis every Tuesday, Tuesday and Tuesday. 20:30 Reassessment: Patient appears in no apparent distress at this time. Patient and/or cc3 family updated on plan of care and expected duration. Pain level reassessed. Patient is alert, oriented x 3, equal unlabored respirations, skin warm/dry/pink. Room available in 204, called for report but was told that the nurse who will receive will just call me back. 21:00 Reassessment: Patient appears in no apparent distress at this time. Patient and/or cc3 family updated on plan of care and expected duration. Pain level reassessed. Patient is alert, oriented x 3, equal unlabored respirations, skin warm/dry/pink. LUIZ Mcclendon called and report given to her for continuity of care and management, endorsed as well that patient has not provided urine sample yet so still for urine sample collection. 21:25 Reassessment: Patient left ER for admission vitally stable by wheelchair escorted by ED cc3 alyce Conley and the patient's . Vital Signs: 17:23 BP 190 / 94; Pulse 102; Resp 18; Temp 98.1(O); Pulse Ox 100% on R/A; Weight 97.52 kg; hj Height 6 ft. 3 in. (190.50 cm); Pain 0/10; 19:30 BP 179 / 77; Pulse 95; Resp 23 S; Temp 98.7(O); Pulse Ox 96% on 2 lpm NC; cc3 20:55 BP 165 / 73; Pulse 95; Resp 23 S; Pulse Ox 96% on 2 lpm NC; cc3 21:18 BP 169 / 76; Pulse 94; Resp 23 S; Pulse Ox 95% on 2 lpm NC; cc3 17:23 Body Mass Index 26.87 (97.52 kg, 190.50 cm) hj ED Course: 17:04 Patient arrived in ED. as 17:04 Lori Chavarria MD is Private Physician. as 17:19 Triage completed. hj 17:22 Arm band placed on left wrist. hj 17:23 Patient has correct armband on for positive identification. Placed in gown. Bed in low hj position. Call light in reach. Side rails up X 1. Adult w/ patient. 17:42 Baldemar Batres MD is Attending Physician. logan 17:45 Inserted saline lock: 20 gauge in left antecubital area, using aseptic technique. Blood tw2 collected. 17:53 X-ray completed. Portable x-ray completed in exam room. Patient tolerated procedure la2 well. 17:54 XRAY Chest (1 view) In Process Unspecified. EDMS 17:56 Rajni Flaherty RN is Primary Nurse. tw2 18:00 EKG done, by ED staff, reviewed by Baldemar Batres MD. em1 18:14 Lori Chavarria MD is Hospitalizing Provider. logan 19:04 Report given to LUIZ Clifton - OUTSTANDING is urine for dipstick only. tw2 21:00 No provider procedures requiring assistance completed. Patient admitted, IV remains in cc3 place. Administered Medications: 17:47 CANCELLED (Duplicate Order): NS 0.9% 1000 ml IV at 1 bolus Per protocol; 1000 mL bolus logan 17:47 Drug: Zofran 4 mg Route: IVP; Site: left antecubital; tw2 18:25 Follow up: Response: No adverse reaction tw2 17:49 Drug: Pepcid 20 mg Route: IVP; Site: left antecubital; tw2 18:25 Follow up: Response: No adverse reaction tw2 18:20 Drug: Phenergan 12.5 mg Route: IVP; Site: left antecubital; tw2 19:03 Follow up: Response: No adverse reaction; Nausea is decreased tw2 18:23 Drug: morphine 4 mg Route: IVP; Site: left antecubital; tw2 19:03 Follow up: Response: No adverse reaction tw2 20:00 Drug: Aspirin 81 mg Route: PO; cc3 21:00 Follow up: Response: No adverse reaction cc3 20:00 Drug: PlaVIX 75 mg Route: PO; cc3 21:00 Follow up: Response: No adverse reaction cc3 20:05 Drug: Lasix 60 mg Route: IVP; Site: left antecubital; cc3 20:30 Follow up: Response: No adverse reaction cc3 20:30 Drug: morphine 4 mg Route: IVP; Site: left antecubital; cc3 21:00 Follow up: Response: No adverse reaction; Pain is decreased cc3 Outcome: 18:15 Decision to Hospitalize by Provider. [facility] 21:00 Admitted to Med/surg accompanied by tech, family with patient, via wheelchair, with cc3 oxygen, with chart, Report called to LUIZ Mcclendon 21:00 Condition: stable 21:00 Instructed on the need for admit, Demonstrated understanding of instructions. 21:32 Patient left the ED. cc3 Signatures: Dispatcher [employer] EDMS Baldemar Batres MD MD cha Martinez, Amelia as Martinez, Eric em1 True Davidson RN RN hj Wise, Tara, RN RN tw2 Christa Lopez2 Elodia Macdonald cc3 Corrections: (The following items were deleted from the chart) 17:22 17:18 Presenting complaint: Patient states: i just keep vomiting for 3 days now, i cant hj hold my medicine down; denies fever; reports back pain; 17:24 17:23 Pulse 102bpm; Resp 18bpm; Pulse Ox 100% RA; Temp 98.1F Oral; 97.52 kg; Height 6 hj ft. 3 in.; BMI: 26.8; Pain 0/10; hj 19:14 19:04 Report given to LUIZ Clifton tw2 tw2 09/04 02:03 09/03 21:00 Reassessment: Patient appears in no apparent distress at this time. Patient cc3 and/or family updated on plan of care and expected duration. Pain level reassessed. Patient is alert, oriented x 3, equal unlabored respirations, skin warm/dry/pink. LUIZ Mcclendon called and report given to her for continuity of care and management. cc3
[2018-09-03 18:25] LABS: Albumin 3.9 g/dL (3.4-5.0); Bilirubin Direct 0.3 mg/dL (0-0.2); Bilirubin Total 0.9 mg/dL (0.2-1.0); Potassium 4.6 mmol/L (3.5-5.1); Protein, Total 8.6 g/dL (6.4-8.2)
[2018-09-03 18:26] LABS: Magnesium 2.4 mg/dL (1.8-2.4); Troponin (Emerg Dept Use Only) 0.19 ng/mL (0.0-0.045)
[2018-09-03] MEDS ORDERED: MORPHINE 4 MG/ML SYR ONE ×2 (18:27→20:42)
[2018-09-03] MEDS ORDERED: PROMETHAZINE 25 MG/ML VIAL ONE (18:27)
[2018-09-03] MEDS ORDERED: CLOPIDOGREL 75 MG TABLET ONE (20:04)
[2018-09-03] MEDS ORDERED: FUROSEMIDE 20 MG/ 2ML VIAL ONE (20:04)
[2018-09-03] MEDS ORDERED: ASPIRIN 81 MG CHEWABLE TABLET ONE (20:04)
[2018-09-03] MEDS ORDERED: FUROSEMIDE 40 MG/4 ML VIAL ONE (20:05)
[2018-09-03] MEDS ORDERED: ACETAMINOPHEN 500 MG TAB PO PRN (22:06)
[2018-09-03] MEDS ORDERED: INSULIN -REGULAR HUMAN 50 UNIT/0.5 ML ML SQ SCH (22:06)
[2018-09-03] MEDS ORDERED: GLUCAGON 1 MG/VIAL IM PRN (22:06)
[2018-09-03] MEDS ORDERED: D50W 25 GM/50 ML SYRINGE IV PRN (22:06)
[2018-09-03] MEDS: MORPHINE 4 MG/ML SYR IV PRN (23:16)
[2018-09-03] MEDS: FAMOTIDINE 20 MG/2 ML VIAL IV SCH (23:17)
[2018-09-03] MEDS: PROMETHAZINE 25 MG/ML VIAL IV PRN (23:18)
[2018-09-04 04:47] LABS: Absolute Lymphocytes (CBC) 0.8 K/uL (0.7-4.9); Absolute Monocytes 0.7 K/uL (0.1-1.3); Absolute Neutrophil 3.1 K/uL (1.8-8.0); Basophils % 1.3 % (0-1.3); Eosinophils % 7.5 % (0-4.4); Hematocrit 34.1 % (39.6-49.0); Lymphocytes % 16.2 % (15.3-44.8); Monocytes % 14.3 % (3.3-12.3); RBC Red Blood Cell Count 3.77 M/uL (4.33-5.43)
[2018-09-04] MEDS: PROMETHAZINE 25 MG/ML VIAL IV PRN ×2 (05:21→11:28)
[2018-09-04] MEDS: MORPHINE 4 MG/ML SYR IV PRN ×4 (05:21→20:36)
[2018-09-04] MEDS: INSULIN -REGULAR HUMAN 50 UNIT/0.5 ML ML SQ SCH ×5 (05:22→20:37)
[2018-09-04 05:41] LABS: Potassium 4.6 mmol/L (3.5-5.1)
[2018-09-04 05:42] LABS: Urine Appearance CLEAR; Urine Bilirubin NEGATIVE (NEG); Urine Blood 1+ (NEG); Urine Color YELLOW; Urine Glucose TRACE (NEG); Urine Protein 3+ (NEG); Urine Urobilinogen 0.2 mg/dL (0.2-1.0); Urine pH 5.5 (5.0-7.0)
[2018-09-04 05:53] LABS: Urine Microscopic Reflex ORDER UMIC
[2018-09-04 06:07] LABS: Urine Amorphous Sediment TRACE /HPF (NONE SEEN); Urine Bacteria <20 /HPF (NONE SEEN); Urine Culture Reflex Order NOT NEEDED
[2018-09-04] MEDS ORDERED: NITROGLYCERIN 0.4 MG/TAB SL PRN (06:56)
[2018-09-04] MEDS: ASPIRIN 81 MG CHEWABLE TABLET PO SCH (08:39)
[2018-09-04] MEDS: ONDANSETRON 4 MG/2 ML VIAL IV PRN ×3 (08:39→20:36)
[2018-09-04] MEDS: METOPROLOL TAR 50 MG TAB PO SCH ×2 (08:39→20:37)
[2018-09-04] MEDS: AMLODIPINE 10 MG TAB PO SCH (08:40)
[2018-09-04] MEDS: SERTRALINE HCL 50 MG TAB PO SCH (08:40)
[2018-09-04] MEDS: FUROSEMIDE 40 MG TABLET PO SCH ×2 (08:40→16:32)
[2018-09-04] MEDS: HYDRALAZINE HCL 25 MG TABLET PO SCH ×3 (08:40→20:35)
[2018-09-04] MEDS: CLOPIDOGREL 75 MG TABLET PO SCH (08:40)
[2018-09-04] MEDS: SEVELAMER CARBONATE 800 MG TABLET PO SCH ×3 (08:40→16:32)
[2018-09-04] MEDS: DOCUSATE NA/SENNA CONC 1 TAB PO SCH ×2 (08:41→20:38)
[2018-09-04] MEDS: LACTULOSE 20 GM/30 ML UCUP PO SCH (08:41)
--- NOTE | 2018-09-04 08:48 | EKG ---
Test Date: 2018-09-03 Test Time: 17:54:54 Ecotherapist: CHAO MEASUREMENT RESULTS: Intervals: Rate: 103 NV: 170 QRSD: 104 QT: 370 QTc: 484 [place]: P: 45 NV: 170 QRS: -22 T: 100 INTERPRETIVE STATEMENTS: Sinus tachycardia Possible Left atrial enlargement Cannot rule out Anterior infarct, age undetermined ST & T wave abnormality, consider lateral ischemia Abnormal ECG Compared to ECG 06/21/2018 00:10:53 No significant changes Electronically Signed On 09-04-18 08:47:55 CDT by Kevin Esqueda
[2018-09-04] MEDS ORDERED: ENOXAPARIN 40 MG/0.4 ML SQ SCH (09:00)
--- NOTE | 2018-09-04 11:46 | CON ---
Chief Complaint: Nausea. History Of Present Illness: Mr. Bah is a gentleman, who has diffuse CAD, microvascular disease 5 y ears ago. We determined that he was not an operative candidate. He has not had a cardiac cath since then. Never had bypass surgery or stents. Since then, he has developed end-stage renal disease. Lucian sequeira has not had a lot of problems with dialysis catheter access. He comes into the hospital not with c hest pain, but with nausea and vomiting, and we see that his troponins go up. The troponin this morn ing is 3.57, last month similar thing happened. Troponins went up to about 8. An echocardiogram at that time, it was actually June 21, 2018, so about 2 months ago. His ejection fraction was 53%. T here was apical akinesis, a small pericardial effusion, and we recommended not doing a cardiac cath a t that time. Today, he is not having nausea or EKG changes. Troponins are very elevated. We have t o reconsider doing a cardiac cath and I would recommend is doing an echo. If we see any changes in i t, we will recommend doing a cardiac cath tomorrow, although it is likely that no intervention will b e possible. Physical Examination: General: He is 6 feet 3 inches, 214 pounds, obese alert, oriented, pleasant, not in distress. Lungs: Clear. Heart: Regular rate and rhythm. Abdomen: Soft. Extremities: Edema and discoloration of the skin. No ulcers. Distal pulses are palpable but dimini shed. Impression: Mr. Bah has severe heart disease. If his EF is deteriorating, I will recommend doing a cardiac cath. In the past he has refused. We will see how it sorts out after the echo and a discussion with him. DANA/NESSA Voice ID: [id number] Report ID: [id number]
[2018-09-04] MEDS ORDERED: GLUCAGON 1 MG/VIAL IM PRN (16:37)
[2018-09-04] MEDS ORDERED: D50W 25 GM/50 ML SYRINGE IV PRN (16:37)
[2018-09-04] MEDS: ATORVASTATIN 80 MG TAB PO SCH (20:36)
[2018-09-04] MEDS: FAMOTIDINE 20 MG/2 ML VIAL IV SCH (20:36)
[2018-09-04] MEDS: HOME MED 1 EA UNK (Travoprost (Benzalkonium) [Travatan 0.004% Eye Drop] 1 DROP) EACH EYE SCH (20:38)
[2018-09-04] MEDS ORDERED: INSULIN -REGULAR HUMAN 50 UNIT/0.5 ML ML SQ SCH (21:00)
[2018-09-04] MEDS ORDERED: FAMOTIDINE 20 MG/2 ML VIAL IV SCH (21:00)
[2018-09-05] MEDS: ZOLPIDEM TARTRATE 5 MG TABLET PO PRN ×2 (00:58→22:36)
[2018-09-05] MEDS: MORPHINE 4 MG/ML SYR IV PRN ×5 (00:58→23:51)
--- NOTE | 2018-09-05 02:52 | HP ---
Date of Admission: 09/04/2018 Chief Complaint: Nausea, vomiting. History Of Present Illness: This is a 53-year-old male patient, who has had multiple prior hospital admissions for similar problems, came in to emergency room with 2-3 days' history of nausea, vomiting, not able to keep any food or liquids down and after he was evaluated in the emergency room, he was admitted to the hospital under my service. He denies any abdominal pain, fever, chills. His cardiac enzymes were normal and he denies any chest pain or shortness of breath. The patient has inoperable coronary artery disease and this has been evaluated by our exchange specialist who was recommended for patient to consider cardiac transplant evaluation in [place] and so far he has not initiated that as he tells me today that when he saw Dr. Love last time at his office, he was told about that and he has not called cardiac transplant program to schedule his appointment as he has not definitely decided about it. Allergies: TO SULFA. Medications: List reviewed. Review of Systems: GI: As mentioned above. Cardiovascular: As mentioned above. All other systems reviewed and negative. Social History: Negative for smoking, alcohol use. Family History: Significant for throat cancer, tuberculosis, hypertension, and diabetes mellitus. Past Surgical History: Rotator cuff surgery, appendectomy, eye surgery, AV graft placed in the right upper extremity in February 2019, cholecystectomy due to biliary dyskinesia in March 2018. Past Medical History: Significant for end-stage renal disease, on hemodialysis ; hypertension; type 2 diabetes mellitus; chronic back pain; coronary artery disease; anemia due to chronic kidney disease; hyperlipidemia; gastritis. Physical Examination: Vital Signs: When he first came in, temperature 98.1, pulse 102, respiratory rate 18, blood pressure 190/94, oxygen saturation 100%. Height 6 feet and 3 inches, weight 214 pounds. Last blood pressure this morning 165/76. General: Awake, alert, oriented, not in distress. HEENT: Head atraumatic, normocephalic. Conjunctivae nonerythematous. Sclerae white. Mouth, no thrush or edema noted. Ears/Nose, no mass, lesion, discharge noted. Neck: Supple. No JVD, lymph nodes, bruit, thyromegaly noted. Lungs: Bilateral good equal air entry. Clear to auscultation. No rhonchi. No rales. Heart: Normal heart sounds. No murmur or gallop. Abdomen: Soft. Bowel sounds normal. No guarding, rigidity, tenderness, mass, hepatosplenomegaly, distention, or bruit noted. Extremities: No leg edema. No calf tenderness. Skin: No rash, ulcer, cellulitis. Lymphatics: No lymph node enlargement in neck, supraclavicular, infraclavicular region. Neuro: No focal neurological deficit. Chest: Unremarkable. External Genitalia: Deferred. Rectal: Deferred. Laboratory Data: Yesterday, white count 7.5, hemoglobin 13.1, platelets 240. This morning, white count 5.2, hemoglobin 11.2, platelets 182. Yesterday, sodium 139, potassium 4.6, chloride 102, bicarb 23, BUN 47, creatinine 7.79, glucose 126. Liver function tests unremarkable. First troponin 0.19, second troponin 1.29, third troponin 3.57. This morning, potassium 4.6, BUN 51, creatinine 8.24, glucose 90. Urinalysis negative except 3+ protein. EKG, no acute ST-T changes. Chest x-ray, mild CHF versus volume overload. Impression: 1. Nausea with vomiting, intractable. 2. Chronic gastritis. 3. Coronary artery disease. 4. End-stage renal disease, on hemodialysis. 5. Anemia due to chronic kidney disease. 6. Hypertension, uncontrolled. 7. Type 2 diabetes mellitus with chronic kidney disease. 8. Chronic back pain. 9. Hyperlipidemia. Plan: Admit the patient to hospital for further evaluation and management of this problem. The patient is appropriate for inpatient and is expected to spend 2 midnights in the hospital. We will continue his home medications. Diabetes will be managed with sliding scale insulin. Continue antihypertensive medication and cardiac medications per order. Consult Cardiology and consult Nephrology. The patient had evaluation done prior to his gallbladder surgery and his gastroparesis problem was ruled out. He has seen Dr. Rosenberg in the past and I have advised him to follow up with him upon discharge on outpatient basis for this recurrent nausea and vomiting problem. We will go ahead and give medication for nausea and vomiting. Diet was ordered. I will see him tomorrow for followup. ERNESTO/MODL Voice ID: [id number] MARYAM
--- NOTE | 2018-09-05 04:07 | PN ---
Date of NEPHROLOGY CONSULTATION Note: 09/04/2018 Chief Complaint: End-stage renal disease, congestive heart failure with systolic and diastolic dysfunction. The patient has history of diffuse coronary artery disease, and he presented to the hospital because of nausea and vomiting. He was found to have elevated troponin level, is undergoing workup for acute coronary syndrome. The patient previously was seen by warehouse operations manager. He has not had a cardiac catheterization since previous admission. He never had a bypass. He was not a candidate for surgery according to Cardiology. The patient has multiple medical problems including diabetic gastroparesis. He presented with nausea, vomiting. He is feeling better, although he was found to have elevated troponin up to 8.0. Ejection fraction was 53%, although there was apical akinesis, small pericardial effusion on previous occasion when he had echo done. Review of Systems: Constitutional: The patient denies fever, chills. Eyes: Denies vision changes. Ears, Nose, Mouth and Throat: Denies sore throat, earache. Respiratory: Denies PND, orthopnea. Cardiovascular: Denies chest pain or palpitation. GI: Denies hematemesis. He is complaining of nausea and vomiting. : Denies dysuria or hematuria. Musculoskeletal: Denies muscle aches or joint swelling. All other systems reviewed and all are negative. Past Medical History: Diabetes mellitus, diabetic nephropathy, neuropathy, retinopathy, coronary artery disease, history of myocardial infarction, congestive heart failure with diastolic dysfunction, renal osteodystrophy. Past Surgical History: Status post dialysis access procedure. Social History: Denies tobacco, alcohol, illicit drugs. Physical Examination: General: The patient is awake, alert. Eyes: Anicteric sclerae. EOMI. Ears, Nose, Mouth, and Throat: Oral mucosa moist. No pallor. Neck: Supple. No JVD. No bruits. Lungs: Few crackles at bases. No wheezing, no rhonchi. Abdomen: Soft, benign, nontender. No rebound, no guarding. Extremities: Slight edema. No clubbing. No cyanosis. Neurological: Moving extremities. Cranial nerves intact. Psychiatric: Alert and oriented x3. Normal affect. Laboratory Data: Hemoglobin 11.2, WBC 5.2, platelet count is 182,000. Chemistry showed sodium 141, potassium 4.6, chloride 103, CO2 24, BUN 51, creatinine 8.24, glucose 90, calcium 8.7. Impression And Plan: 1. End-stage renal disease. The patient will have dialysis today to obtain metabolic clearance and ultrafiltration. Continue low-sodium diet and p.o. fluid restriction. 2. Elevated troponin. Acute coronary syndrome. Dialysis parameters will be adjusted. Blood flow rate will be decreased to 250. 3. Electrolytes, stable. dialysis electrolytes accordingly. 4. Diabetes mellitus. Continue insulin. 5. Diabetic gastroparesis, nausea, vomiting. Continue antinausea medication and proton pump inhibitor. 6. Renal osteodystrophy. At this point, plan is to check phosphorus level and continue binders. 7. Anemia. Hemoglobin stable. GATO on hold. ESTELA/MODL Voice ID: [id number] Report ID: [id number] MTDD
[2018-09-05] MEDS: cloNIDine HCl 0.1 MG TAB PO PRN (05:46)
[2018-09-05] MEDS: ONDANSETRON 4 MG/2 ML VIAL IV PRN ×2 (07:20→15:12)
[2018-09-05] MEDS: INSULIN -REGULAR HUMAN 50 UNIT/0.5 ML ML SQ SCH ×4 (07:30→20:16)
--- NOTE | 2018-09-05 08:12 | ECHO ---
HEIGHT: 6 ft 3 in WEIGHT: 214 lb 7 oz DATE OF STUDY: 09/04/[address]: Baldemar Batres MD 2-DIMENSIONAL: YES M.MODE: YES DOPPLER: YES COLOR FLOW: YES TDS: NO PORTABLE: NO DEFINITY: NO BUBBLE STUDY: NO DIAGNOSIS: CONGESTIVE HEART FAILURE CARDIAC HISTORY: CATHERIZATION: YES SURGERY: NO PROSTHETIC VALVE: NO PACEMAKER: NO MEASUREMENTS (cm) DIASTOLIC (NORMALS) SYSTOLIC (NORMALS) IVSd 1.2 (0.6-1.2) LA Diam 4.4 (1.9-4.0) LVEF 57% LVIDd 5.4 (3.5-5.7) LVIDs 3.7 (2.0-3.5) %FS 30% LVPWd 1.3 (0.6-1.2) Ao Diam 3.0 (2.0-3.7) 2 DIMENSIONAL ASSESSMENT: RIGHT ATRIUM: DILATED LEFT ATRIUM: DILATED RIGHT VENTRICLE: NORMAL LEFT VENTRICLE: LEFT VENTRICULAR HYPERTROPHY TRICUSPID VALVE: NORMAL MITRAL VALVE: NORMAL PULMONIC VALVE: NORMAL AORTIC VALVE: SCLEROSIS PERICARDIAL EFFUSION: SMALL AORTIC ROOT: NORMAL LEFT VENTRICULAR WALL MOTION: APICAL AKINESIS. DOPPLER/COLOR FLOW: MILD MITRAL AND TRICUSPID REGURGITATION. NO AORTIC STENOSIS OR AORTIC REGURGITATION. ESTIMATED RIGHT VENTRICULAR SYSTOLIC PRESSURE 50-55 mmHg. MODERATE PULMONARY HYPERTENSION. COMMENTS: NORMAL LEFT VENTRICULAR EJECTION FRACTION WITH WALL MOTION ABNORMALITY. DILATED LEFT AND RIGHT ATRIUM. AORTIC SCLEROSIS WITH NO AORTIC STENOSIS OR AORTIC REGURGITATION. SMALL PERICARDIAL EFFUSION. MILD MITRAL AND TRICUSPID REGURGITATION. MODERATE PULMONARY HYPERTENSION. TECHNOLOGIST: Prosper QUAN
[2018-09-05] MEDS: LACTULOSE 20 GM/30 ML UCUP PO SCH (09:16)
[2018-09-05] MEDS: HYDRALAZINE HCL 25 MG TABLET PO SCH ×3 (09:16→20:15)
[2018-09-05] MEDS: ASPIRIN 81 MG CHEWABLE TABLET PO SCH (09:17)
[2018-09-05] MEDS: METOPROLOL TAR 50 MG TAB PO SCH ×2 (09:17→20:15)
[2018-09-05] MEDS: DOCUSATE NA/SENNA CONC 1 TAB PO SCH ×2 (09:17→20:14)
[2018-09-05] MEDS: SERTRALINE HCL 50 MG TAB PO SCH (09:17)
[2018-09-05] MEDS: FUROSEMIDE 40 MG TABLET PO SCH ×2 (09:17→17:04)
[2018-09-05] MEDS: CLOPIDOGREL 75 MG TABLET PO SCH (09:17)
[2018-09-05] MEDS: AMLODIPINE 10 MG TAB PO SCH (09:17)
[2018-09-05] MEDS: SEVELAMER CARBONATE 800 MG TABLET PO SCH ×3 (09:17→17:04)
[2018-09-05] MEDS: PROMETHAZINE 25 MG/ML VIAL IV PRN ×3 (15:35→23:51)
[2018-09-05] MEDS: ATORVASTATIN 80 MG TAB PO SCH (20:14)
[2018-09-05] MEDS: FAMOTIDINE 20 MG/2 ML VIAL IV SCH (20:14)
[2018-09-05] MEDS: HOME MED 1 EA UNK (Travoprost (Benzalkonium) [Travatan 0.004% Eye Drop] 1 DROP) EACH EYE SCH (20:16)
--- NOTE | 2018-09-06 01:15 | PN ---
Date of Progress Note: 09/05/2018 Subjective: The patient was seen this morning for followup. Objective: Vital Signs: Reviewed. HEENT: Unremarkable. Lungs: Clear to auscultation. No rhonchi or rales. Heart: Sounds normal. Abdomen: Soft. Bowel sounds normal. No guarding, rigidity, tenderness, distention. Extremities: No leg edema. Labs: Reviewed. Impression: 1.Coronary artery disease. 2.Nausea with vomiting. 3.End-stage renal disease, on hemodialysis. 4.Anemia due to chronic kidney disease. 5.Hypertension. 6.Diabetes mellitus. Plan: We will continue to follow with care program director and maintenance department manager. Continue current medical manag ement, and Dr. Esqueda had recommended cardiac cath to be done, but the patient had questions about it and is going to talk to Dr. Esqueda about this today. I will see him tomorrow for followup. ERNESTO/MODL Voice ID: [id number] Report ID: [id number]
--- NOTE | 2018-09-06 04:15 | PN ---
Date of Progress Note: 09/05/2018 Chief Complaint: End-stage renal disease, congestive heart failure with systolic and diastolic dysfu nction. The patient has history of diffuse coronary artery disease. He presented to the hospital be cause of nausea, vomiting. He was found to have elevated troponin. He is undergoing workup for acut e coronary syndrome. The patient received dialysis yesterday to obtain metabolic clearance and ultra filtration. Review of Systems: The patient denies new complaints. Physical Examination: Lungs: Clear to auscultation bilaterally. Heart: S1, S2. Abdomen: Soft, benign. Extremities: Slight edema in both ankles. Laboratory Data: Hemoglobin 11.2, WBC 5.2, platelet count 182,000. Chemistry showed sodium 141, pot assium 4.6, chloride 103, CO2 24, BUN is 51, creatinine 8.24. Impression And Plan: 1.End-stage renal disease, fluid overload. The patient will have dialysis tomorrow. The patient re sponded to dialysis and the patient will continue low-sodium diet and p.o. fluid restriction. 2.Hypertension. Blood pressure controlled. Adjust medication for optimal blood pressure control. 3.Renal osteodystrophy. Continue renal diet and binders. 4.Anemia in chronic kidney disease. Hemoglobin level is satisfactory. 5.Coronary artery disease. Workup pending per primary team. 6.Mild fluid overload and dialysis will be ordered for tomorrow with ultrafiltration. ESTELA/NESSA Voice ID: [id number] Report ID: [id number]
[2018-09-06] MEDS: MORPHINE 4 MG/ML SYR IV PRN ×4 (06:09→23:11)
[2018-09-06] MEDS: PROMETHAZINE 25 MG/ML VIAL IV PRN ×2 (06:09→15:28)
[2018-09-06] MEDS: INSULIN -REGULAR HUMAN 50 UNIT/0.5 ML ML SQ SCH ×4 (07:30→21:00)
[2018-09-06] MEDS: SEVELAMER CARBONATE 800 MG TABLET PO SCH ×3 (10:50→18:13)
[2018-09-06] MEDS: ASPIRIN 81 MG CHEWABLE TABLET PO SCH (10:51)
[2018-09-06] MEDS: HYDRALAZINE HCL 25 MG TABLET PO SCH ×3 (10:52→23:06)
[2018-09-06] MEDS: SERTRALINE HCL 50 MG TAB PO SCH (10:53)
[2018-09-06] MEDS: METOPROLOL TAR 50 MG TAB PO SCH ×2 (10:53→23:06)
[2018-09-06] MEDS: AMLODIPINE 10 MG TAB PO SCH (10:53)
[2018-09-06] MEDS: CLOPIDOGREL 75 MG TABLET PO SCH (10:54)
[2018-09-06] MEDS: FUROSEMIDE 40 MG TABLET PO SCH ×2 (10:54→18:14)
[2018-09-06] MEDS: DOCUSATE NA/SENNA CONC 1 TAB PO SCH ×2 (10:55→23:07)
[2018-09-06] MEDS: LACTULOSE 20 GM/30 ML UCUP PO SCH (10:55)
[2018-09-06] MEDS: LOSARTAN POTASSIUM 50 MG TABLET PO SCH (10:55)
[2018-09-06] MEDS: ONDANSETRON 4 MG/2 ML VIAL IV PRN ×2 (10:56→23:11)
--- NOTE | 2018-09-06 13:45 | PN ---
Subjective: Mr. Bah still gets nauseated, not having chest pain. After reviewing old films, talki ng things over with Mr. Bah, I think rather than doing a heart catheterization, his best chance for doing better is to be evaluated by the cardiac transplant team. This was suggested 2 months ago. S o far he has not done it, so I told him I would facilitate his entry into the cardiac transplant prog thomas. He would need a combined cardiac and renal transplant. DANA/NESSA Voice ID: [id number] Report ID: [id number]
[2018-09-06] MEDS: HOME MED 1 EA UNK (Travoprost (Benzalkonium) [Travatan 0.004% Eye Drop] 1 DROP) EACH EYE SCH (21:00)
[2018-09-06] MEDS: ATORVASTATIN 80 MG TAB PO SCH (23:06)
[2018-09-06] MEDS: FAMOTIDINE 20 MG/2 ML VIAL IV SCH (23:07)
--- NOTE | 2018-09-06 23:24 | PN ---
Date of Progress Note: 09/06/2018 Chief Complaint: End-stage renal disease, congestive heart failure, diastolic dysfunction, elevated troponin. The patient is undergoing workup for coronary artery disease. The patient has diabetic ki dney disease, resulted in end-stage renal disease, who presented to the hospital because of nausea an d vomiting. The patient received dialysis yesterday. Procedure was well tolerated. Ultrafiltration was obtained. The patient is feeling better. Review of Systems: Denies fever. Denies hemoptysis. He is complaining of nausea . Physical Examination: Lungs: Few crackles at bases. Heart: S1, S2. Abdomen: Soft, benign, nontender. Extremities: Minimal edema. Impression And Plan: 1.Congestive heart failure with diastolic dysfunction and volemia is well controlled. 2.Hypertension. Continue current blood pressure medication. 3.Elevated troponin. The patient will follow up with Tying In Machine Operator. 4.Cardiology is evaluating the patient for coronary artery disease and they recommended cardiac silva splant. Further recommendation from Dr. Esqueda and transplant team. 5.Renal osteodystrophy. Continue renal diet and binders. 6.Anemia in chronic kidney disease. Hemoglobin level is stable during this admission. Continue danna atment GATO as needed. Today dialysis was done with ultrafiltration. Continue low-sodium diet and p.o. fluid restr iction. EB/MODL Voice ID: [id number] Report ID: [id number]
--- NOTE | 2018-09-07 01:03 | PN ---
Date of Progress Note: 09/06/2018 Subjective: The patient was seen this morning for followup. No new complaints or problems reported. He was getting dialysis. He did have episode of nausea, vomiting yesterday and today. Objective: Vital Signs: Reviewed. HEENT: Unremarkable. Lungs: Clear to auscultation. Heart: Sounds normal. Abdomen: Soft. Bowel sounds normal. No guarding, rigidity, tenderness, or distention. Extremities: No leg edema. Laboratory Data: Labs reviewed. Impression: 1.Nausea with vomiting. 2.End-stage renal disease. 3.Hypertension. 4.Diabetes mellitus. Plan: The patient's echocardiogram from yesterday, results reviewed with him, shows normal ejection fraction. We will continue to follow with third loader and builder beam, and I will see him tomorrow for followup. Considering his nausea, vomiting problem, we will not be discharging him today for dobson re. ERNESTO/MODL Voice ID: [id number] Report ID: [id number]
[2018-09-07] MEDS: MORPHINE 4 MG/ML SYR IV PRN ×4 (04:13→21:51)
[2018-09-07] MEDS: PROMETHAZINE 25 MG/ML VIAL IV PRN ×3 (04:15→12:42)
[2018-09-07] MEDS: INSULIN -REGULAR HUMAN 50 UNIT/0.5 ML ML SQ SCH ×4 (07:30→21:00)
[2018-09-07] MEDS: HYDRALAZINE HCL 25 MG TABLET PO SCH ×3 (11:06→22:41)
[2018-09-07] MEDS: AMLODIPINE 10 MG TAB PO SCH (11:08)
[2018-09-07] MEDS: DOCUSATE NA/SENNA CONC 1 TAB PO SCH ×2 (11:09→22:42)
[2018-09-07] MEDS: CLOPIDOGREL 75 MG TABLET PO SCH (11:09)
[2018-09-07] MEDS: SEVELAMER CARBONATE 800 MG TABLET PO SCH ×3 (11:10→17:45)
[2018-09-07] MEDS: ASPIRIN 81 MG CHEWABLE TABLET PO SCH (11:11)
[2018-09-07] MEDS: LOSARTAN POTASSIUM 50 MG TABLET PO SCH (11:12)
[2018-09-07] MEDS: METOPROLOL TAR 50 MG TAB PO SCH ×2 (11:12→22:41)
[2018-09-07] MEDS: SERTRALINE HCL 50 MG TAB PO SCH (11:12)
[2018-09-07] MEDS: FUROSEMIDE 40 MG TABLET PO SCH ×2 (11:13→17:44)
[2018-09-07] MEDS: LACTULOSE 20 GM/30 ML UCUP PO SCH (11:19)
[2018-09-07] MEDS: ONDANSETRON 4 MG/2 ML VIAL IV PRN ×2 (14:38→21:51)
--- NOTE | 2018-09-07 20:25 | PN ---
Date of Progress Note: 09/07/2018 Subjective: The patient was seen this morning for followup. No new complaints or problems reported by him except has some nausea, vomiting yesterday and today also he had episode of vomiting. Objective: Vital signs: Reviewed. HEENT: Unremarkable. Lungs: Clear to auscultation. Heart: Sounds normal. Abdomen: Soft. Bowel sounds normal. No guarding, rigidity, tenderness, distention. Extremities: No leg edema. Impression: 1.Nausea with vomiting. 2.Hypertension. 3.Coronary artery disease. 4.End-stage renal disease, on hemodialysis. Plan: We will go ahead and start using Reglan for him and see how he tolerates that and response to it. Details were discussed with software intern, who is agreeable with that treatment plan as well. We will continue to follow with antisqueak worker, who is planning to facilitate his appointment for cardiac transplant evaluation in [place]. Once nausea and vomiting is under control, our plan is to dischar ge him to go home. ERNESTO/MODL Voice ID: [id number] Report ID: [id number]
[2018-09-07] MEDS: HOME MED 1 EA UNK (Travoprost (Benzalkonium) [Travatan 0.004% Eye Drop] 1 DROP) EACH EYE SCH (21:00)
[2018-09-07] MEDS: ATORVASTATIN 80 MG TAB PO SCH (22:41)
[2018-09-07] MEDS: FAMOTIDINE 20 MG/2 ML VIAL IV SCH (22:42)
--- NOTE | 2018-09-08 01:01 | PN ---
Date of Progress Note: 09/07/2018 Subjective: The patient has end-stage renal disease; hemodialysis, Tuesday, Tuesday, and Tuesday; wa s admitted for intractable nausea and vomiting, found to have fluid overload. Today, the patient has some nausea and vomiting. I discussed with the Primary who plan to restart him on Reglan. Blood pr essure is uncontrolled, we will increase hydralazine. We will continue hemodialysis Tuesday, , and Tuesday. Physical Examination: Vital Signs: Temperature 98.4, pulse was 67, blood pressure 163/74. General: Awake, alert, oriented x3, in mild distress. Heart: Regular rate and rhythm. Normal S1, S2. Chest: Clear to auscultation bilaterally. Abdomen: Soft, nontender, nondistended. Positive bowel sounds. Extremities: Trace edema. Laboratory Data: White count 5.2, hemoglobin 11.2, with a platelet of 182. Sodium 141, potassium 4. 6, BUN 51, creatinine 8.2, calcium 8.7. Assessment And Plan: 1.End-stage renal disease. Continue hemodialysis, Tuesday, Tuesday, and Tuesday. medica tions. 2.Anemia. Hemoglobin more than 11. We will continue to hold Epogen continue Renvela. 3.Hypertension. We will increase hydralazine. Continue him on lisinopril. 4.Congestive heart failure. Not in distress. We will continue hemodialysis. Continue lisinopril a nd Ranexa. 5.Nausea and vomiting. Continue Zofran. add Reglan. Likely due to gastroparesis. AA/MODL Voice ID: [id number] Report ID: [id number]
[2018-09-08] MEDS: MORPHINE 4 MG/ML SYR IV PRN ×4 (03:19→21:52)
[2018-09-08] MEDS: ONDANSETRON 4 MG/2 ML VIAL IV PRN ×2 (03:20→18:13)
[2018-09-08 04:22] LABS: HBsAG Nonreactive (Nonreactive)
[2018-09-08] MEDS: METOCLOPRAMIDE 5 MG TAB PO SCH ×4 (07:30→21:10)
[2018-09-08] MEDS: INSULIN -REGULAR HUMAN 50 UNIT/0.5 ML ML SQ SCH ×4 (07:30→21:00)
[2018-09-08] MEDS: SEVELAMER CARBONATE 800 MG TABLET PO SCH ×3 (08:00→16:49)
[2018-09-08] MEDS: LOSARTAN POTASSIUM 50 MG TABLET PO SCH (09:00)
[2018-09-08] MEDS: FUROSEMIDE 40 MG TABLET PO SCH ×2 (09:00→16:49)
[2018-09-08] MEDS: ASPIRIN 81 MG CHEWABLE TABLET PO SCH ×2 (09:00→14:35)
[2018-09-08] MEDS: METOPROLOL TAR 50 MG TAB PO SCH ×2 (09:00→21:00)
[2018-09-08] MEDS: CLOPIDOGREL 75 MG TABLET PO SCH ×2 (09:00→14:36)
[2018-09-08] MEDS: HYDRALAZINE HCL 25 MG TABLET PO SCH ×3 (09:00→21:11)
[2018-09-08] MEDS: LACTULOSE 20 GM/30 ML UCUP PO SCH (09:00)
[2018-09-08] MEDS: AMLODIPINE 10 MG TAB PO SCH (09:00)
[2018-09-08] MEDS: SERTRALINE HCL 50 MG TAB PO SCH ×2 (09:00→14:38)
[2018-09-08] MEDS: DOCUSATE NA/SENNA CONC 1 TAB PO SCH ×2 (09:00→21:11)
[2018-09-08] MEDS: PROMETHAZINE 25 MG/ML VIAL IV PRN ×2 (12:00→21:52)
--- NOTE | 2018-09-08 14:31 | PN ---
Date of Progress Note: 09/08/2018 Subjective: The patient was seen this morning for followup. No new complaints or problems reported by patient except nausea and vomiting. He was getting dialysis this morning when I saw him. Objective: HEENT: Unremarkable. Lungs: Clear to auscultation. Heart: Sounds normal. Abdomen: Soft. Bowel sounds normal. No guarding, rigidity, tenderness, or distention. Extremities: No leg edema. Impression: 1.End-stage renal disease, on hemodialysis. 2.Coronary artery disease. 3.Nausea with vomiting. 4.Anemia due to chronic kidney disease. 5.Diabetes mellitus. Plan: Reglan was started today 5 mg 4 times a day and we will see how the patient responds to it and possible discharge to go home either today or tomorrow depending on his nausea and vomiting problem. The patient was advised to follow up with artist color separation, Dr. Esqueda, who is going to have facilitate his referral for evaluation of cardiac transplant. ERNESTO/MODL Voice ID: [id number] Report ID: [id number]
--- NOTE | 2018-09-08 17:59 | PN ---
Date of Progress Note: 09/08/2018 Subjective: The patient has end-stage renal disease, was admitted for fluid overload and nausea, vom iting. The patient's shortness of breath improved, but continues to have nausea and vomiting. Start ed on Reglan today. Blood pressure is well controlled. We will continue hemodialysis Tuesday, ay and Tuesday. Objective: General: Awake, alert, oriented x3, not in distress. Heart: Regular rate and rhythm. Normal S1, S2. Chest: Clear to auscultation bilaterally. Abdomen: Soft and nontender. Extremities: No edema. Laboratory Data: No available labs for today. Assessment And Plan: 1.End-stage renal disease. We will continue hemodialysis, Tuesday, Tuesday, and Tuesday. Renal t and renally dosed medications. 2.Anemia. Hemoglobin more than 11. We will continue to hold Epogen. 3.Metabolic bone disease. Continue Renvela. 4.Hypertension. Blood pressure had been acceptable now. 5.Congestive heart failure. Euvolemic now. Continue on dialysis. 6.Intractable nausea and vomiting. The patient continues to have nausea and vomiting. Previous wor kup negative. Restarted on Reglan. APOORVA/NESSA Voice ID: [id number] Report ID: [id number]
[2018-09-08] MEDS: HOME MED 1 EA UNK (Travoprost (Benzalkonium) [Travatan 0.004% Eye Drop] 1 DROP) EACH EYE SCH (21:00)
[2018-09-08] MEDS: ZOLPIDEM TARTRATE 5 MG TABLET PO PRN (21:12)
[2018-09-08] MEDS: ATORVASTATIN 80 MG TAB PO SCH (21:12)
[2018-09-08] MEDS: FAMOTIDINE 20 MG/2 ML VIAL IV SCH (21:14)
[2018-09-09] MEDS: ONDANSETRON 4 MG/2 ML VIAL IV PRN ×2 (01:21→05:10)
[2018-09-09] MEDS: MORPHINE 4 MG/ML SYR IV PRN ×2 (05:10→12:08)
[2018-09-09] MEDS: cloNIDine HCl 0.1 MG TAB PO PRN (06:12)
[2018-09-09 06:21] VITALS: BMI 26.6
[2018-09-09] MEDS: INSULIN -REGULAR HUMAN 50 UNIT/0.5 ML ML SQ SCH ×2 (07:30→11:30)
[2018-09-09] MEDS: LOSARTAN POTASSIUM 50 MG TABLET PO SCH (08:45)
[2018-09-09] MEDS: METOCLOPRAMIDE 5 MG TAB PO SCH ×2 (08:45→12:05)
[2018-09-09] MEDS: SEVELAMER CARBONATE 800 MG TABLET PO SCH ×2 (08:45→12:08)
[2018-09-09] MEDS: METOPROLOL TAR 50 MG TAB PO SCH (08:45)
[2018-09-09] MEDS: AMLODIPINE 10 MG TAB PO SCH (08:46)
[2018-09-09] MEDS: CLOPIDOGREL 75 MG TABLET PO SCH (08:46)
[2018-09-09] MEDS: HYDRALAZINE HCL 25 MG TABLET PO SCH ×2 (08:46→14:00)
[2018-09-09] MEDS: DOCUSATE NA/SENNA CONC 1 TAB PO SCH (08:46)
[2018-09-09] MEDS: ASPIRIN 81 MG CHEWABLE TABLET PO SCH (08:46)
[2018-09-09] MEDS: FUROSEMIDE 40 MG TABLET PO SCH (08:46)
[2018-09-09] MEDS: SERTRALINE HCL 50 MG TAB PO SCH (08:46)
[2018-09-09] MEDS: LACTULOSE 20 GM/30 ML UCUP PO SCH (10:04)
[2018-09-09 12:59] VITALS: BP 137/65; TEMP 97.7; O2SAT 94
--- NOTE | 2018-09-09 21:30 | PN ---
Date of Progress Note: 09/09/2018 Chief Complaint: End-stage renal disease, congestive heart failure, diastolic dysfunction. Subjective: The patient was found to have elevated troponin. He was evaluated for coronary artery d beena, was seen by wash oil pump operator helper. The patient has diabetic kidney disease, resulted in end-stage jean al disease. He is dialysis dependent. He presented to the hospital because of nausea, vomiting, and epigastric discomfort. The patient is undergoing treatment for diabetic gastroparesis. Congestive heart failure is chronic and compensated. The patient received dialysis yesterday and volemia is wel l controlled. The patient is on p.o. fluid restrictions and low-sodium diet. Review of Systems: The patient is feeling better. Denies fever. Denies chest pain, palpitation syncope. Nausea and vo miting are gradually resolving. Physical Examination: Lungs: Clear to auscultation bilaterally. Heart: S1, S2. Abdomen: Soft. Benign. Extremities: Trace edema. Impression And Plan: 1.Congestive heart failure with diastolic dysfunction. Volemia is well controlled. Continue p.o. f luid restriction and low-sodium diet. 2.Hypertension. Blood pressure controlled. Continue current blood pressure medication. 3.Coronary artery disease, elevated troponin. The patient was evaluated by Cardiology. Further rec ommendation were made by Dr. Esqueda. The patient is to be consulted by cardiac transplant team. 4.Renal osteodystrophy. Continue renal diet and binders. 5.Anemia in chronic kidney disease. Hemoglobin level stable. Continue treatment with GATO. Monitor hemoglobin level. Adjust treatment accordingly. ESTELA/NESSA Voice ID: [id number] Report ID: [id number]
== END 2018-09-09 14:36 | disposition home or self-care (01) | DRG 73 ==
LOC: ER 17:02 → ERHOLD 18:20 → 2ND 21:05
PROVIDERS: ADMIT Internal Medicine; ATTEND Internal Medicine
PROC: 5A1D70Z Performance of Urinary Filtration, Intermittent, Less than 6 Hours Per Day (ICD-10-PCS; principal; 2018-09-04)
PROC: 5A1D70Z Performance of Urinary Filtration, Intermittent, Less than 6 Hours Per Day (ICD-10-PCS; 2018-09-06)
PROC: 5A1D70Z Performance of Urinary Filtration, Intermittent, Less than 6 Hours Per Day (ICD-10-PCS; 2018-09-08)
DX: E11.43 Type 2 diabetes mellitus with diabetic autonomic (poly)neuropathy (principal); N18.6 End stage renal disease; I24.9 Acute ischemic heart disease, unspecified; I13.2 Hypertensive heart and chronic kidney disease with heart failure and with stage 5 chronic kidney disease, or end stage renal disease; I50.32 Chronic diastolic (congestive) heart failure; K31.84 Gastroparesis; I25.10 Atherosclerotic heart disease of native coronary artery without angina pectoris; E11.21 Type 2 diabetes mellitus with diabetic nephropathy; E11.40 Type 2 diabetes mellitus with diabetic neuropathy, unspecified; E11.319 Type 2 diabetes mellitus with unspecified diabetic retinopathy without macular edema; N25.0 Renal osteodystrophy; D63.1 Anemia in chronic kidney disease; E11.22 Type 2 diabetes mellitus with diabetic chronic kidney disease; Z99.2 Dependence on renal dialysis; E87.70 Fluid overload, unspecified; E88.89 Other specified metabolic disorders; R11.2 Nausea with vomiting, unspecified; R79.89 Other specified abnormal findings of blood chemistry; I25.2 Old myocardial infarction; E78.5 Hyperlipidemia, unspecified; K29.50 Unspecified chronic gastritis without bleeding; Z79.4 Long term (current) use of insulin
CPT/HCPCS: 36415; 71045; 80048; 80076; 81003; 81015; 82962; 83690; 83735; 83880; 84484; 85025; 85610; 86704; 86706; 86803; 87340; 90935; 93005; 93306; 96374; 96375; 99285; J1940; J2405; J2550; J7030

== ENCOUNTER 2018-09-12 03:57 | Emergency (ER) | payer BC, OTHER ==
--- OUTSIDE RECORDS SUMMARY | 2018-09-12 04:00 | XMS REPORT | Clinical Summary ---
:1965 Author Organization [facility] Address [address] [place] [address] Care Team Providers Name Role Phone Garo [...] Hypertension 02/24/2017 Intractable vomiting with nausea 02/24/2017 Haxll-fr-ithkfrw kidney injury 02/24/2017 Diabetes mellitus 02/15/2017 Encounters Date Type Specialty Care Team Description 05/25/2018 Anesthesia Event Plastic Surgery Raz Brown 05/25/2018 Surgery Plastic Surgery Daquan Mary AND ARIS Arrington MD INDICATED PROCEDURES, RIGHT EYE 05/25/2018 Hospital Encounter Plastic Surgery Daquan Mary MD 09/15/2017 Office Visit General Surgery Abdiel Ivory Surgery follow- up MD Susan (Primary Dx) after 09/11/2017 Immunizations Name Dates Previously Given Next Due [...] Taken Blood Pressure 136/61 05/25/2018 2:05 PM CABLE INSTALLER Pulse 58 05/25/2018 2:05 PM CABLE INSTALLER Temperature 37.2 C (98.9 F) 05/25/2018 2:05 PM CABLE INSTALLER Respiratory Rate 12 05/25/2018 2:05 PM CABLE INSTALLER Oxygen Saturation 96% 05/25/2018 2:05 PM CABLE INSTALLER Inhaled Oxygen Concentration - - Weight 97.2 kg (214 lb 3 oz) 05/25/2018 11:43 AM CABLE INSTALLER Height 190.5 cm (6' 3") 05/25/2018 11:43 AM CABLE INSTALLER Body Mass Index 26.77 05/25/2018 11:43 AM CABLE INSTALLER Plan of Treatment Health Maintenance Due Date Last Done Comments DIABETIC RETINAL EYE EXAM 1965 DIABETIC FOOT EXAM 1974 COLON CANCER SCREENING 2014 SHINGLES VACCINES (#1) 2014 INFLUENZA VACCINE 01/11/2018 02/11/2017 Procedures Procedure Name Priority Date/Time Associated Diagnosis Comments VITRECTOMY 05/25/2018 1:00 PM CABLE INSTALLER Vitreous hemorrhage of right eye (HCC) Special Needs REQ 1300 START POC PANEL 4 Routine 05/25/2018 12:09 PM CABLE INSTALLER after 09/11/2017 Results POC panel 4 (05/25/2018 12:09 PM CABLE INSTALLER) POC sodium 137 135 - 148 mmol/L [facility] POC potassium 4.3 3.5 - 5.0 mmol/L [facility] POC hematocrit 34 (L) 41 - 51 % [facility] Comment: Meter ID: [id number] Substation Technician: Abisai Girard POC glucose 107 (H) 65 - 99 mg/dL [facility] Performing Organization Address City/State/Zipcode Phone Number [facility] DEPARTMENT OF PATHOLOGY AND [address] [place] [address] GENOMIC MEDICINE [facility] [address] [place] [phone] after 09/11/2017 Insurance Payer Benefit Plan / Group Subscriber ID Type Phone Address SILVIA CARCAMO xxxxxxxxxxxx PPO MEDICARE MEDICARE PART A AND B xxxxxxxxxx Medicare [place], [place] Advance Directives Patient has advance care planning documents on file. For more information, please contact:Naren Castro[address] [place] [address]
--- OUTSIDE RECORDS SUMMARY | 2018-09-12 04:00 | XMS REPORT | Clinical Summary ---
:1965 Author Organization [facility] Address [address] [place] [address] Care Team Providers Name Role Phone Bala [...] Not on file Implants Implanted Type Area Community Development Specialist Device Shelf Model / Identifier Expiration Serial / Lot Date Cath Peritoneal Dyls 57cm 2cuf [id number] - Sn/A Catheter N/A: COVIDIEN: SHAZIA 02/17/2021 [id number] / Implanted: Qty: 1 on 06/14/2017 by Abdiel Ivory MD Dialysis Abdomen L N/A / [facility] [id number] Results Not on fileafter 09/11/2017 Insurance Payer Benefit Plan / Subscriber ID Type Phone Address Group [employer]UE [employer]UE [employer] OS xxxxxxxxxxxx PPO [phone] [address] SHIELD POS/PPO/[place] [address] MEDICARE MEDICARE A B xxxxxxxxxx Medicare Advance Directives For more information, please contact:[address] [phone] Code Status Date Activated Date Inactivated Comments Full Code 06/08/2017 11:37 PM 06/15/2017 8:31 PM This code status was determined by: Patient
--- OUTSIDE RECORDS SUMMARY | 2018-09-12 04:02 | XMS REPORT | Continuity of Care Document ---
:1965 Author Organization Interface Problems Problem Status Onset Classification Date Comments Source Date Reported HTN, ESRD ON Active 06/18/19 [facility] DIALYSIS, EDEMA 19 OF UPPER EX ARM SWELLING Active 06/18/19 [facility] 19 UNK Active 05/25/20 [facility] 18 TESIO RELOCATION Active 04/04/20 [facility] 18 Gastroparesis Active 05/30/20 [facility]2017 [facility] nausea and 17 [facility] [place] Botec-yu-svmhsde Active 02/25/20 Finding 06/05/[address] [facility] kidney injury 17 [facility] [place] HTN Active 02/25/20 Finding 06/05/[address] [facility] [facility] [place] Obesity Active 02/25/20 Finding 06/05/[address] [facility] [facility] [place] Diabetes mellitus Active 02/16/20 Finding 06/05/[address] [facility] [place] Chest pain Active 08/28/19 Finding 06/05/[address] 16 [facility] [place] Hyperglycemia Active Finding 06/05/2017 [facility] [place] Uncontrolled Active Finding 06/05/2017 [facility] diabetes mellitus [facility] [place] Renal Active Finding 06/05/2017 [facility] insufficiency [facility] [place] ESSENTIAL [facility] (PRIMARY) HYPERTENSION END STAGE RENAL Active [facility] DISEASE LOCALIZED EDEMA [facility] Medications Medication Details Route Status Patient Ordering Order Source Instructions Provider Date Metoclopramide Hcl THREE TIMES A Active Nunez [facility] DAY 2017 [facility] [place] Ondansetron Hcl Q6H PRN For Active Nunez St[facility] Vomiting 2017 [facility] [place] Furosemide TWICE DAILY Active Nunez [facility] 2017 [facility] [place] Zolpidem Tartrate AT BEDTIME Active Alroumoh [facility] 2017 [facility] [place] Aspirin DAILY Active [facility] 2017 [facility] [place] Nitroglycerin DAILY Active [facility] NEEDED PRN For 2017 [facility] Chest Pain [place] Promethazine Hcl EVERY [address] NEEDED PRN 2017 [facility] For Nausea [place] Pantoprazole DAILY Active St. 2017 [facility] [place] Ranolazine TWICE DAILY Active [facility] 2017 [facility] [place] Insulin Lispro DAILY Active [facility] 2017 [facility] [place] Furosemide TWICE DAILY Active Prezas [facility] 2017 [facility] [place] Hydralazine TWICE DAILY Active [facility] 2017 [facility] [place] Furosemide TWICE DAILY AT Active [facility]. 9am & 5pm 2017 [facility] [place] Atorvastatin DAILY Active [facility] Calcium 2017 [facility] [place] Metoprolol Tartrate TWICE DAILY Active [facility] 2017 [facility] [place] Nitroglycerin Patch DAILY Active [facility] NEEDED PRN For 2017 [facility] [place] Amlodipine DAILY Active [facility] 2017 [facility] [place] Clopidogrel DAILY Active [facility] Bisulfate 2017 [facility] [place] Furosemide TWICE DAILY Active [facility] 2017 [facility] [place] Hydralazine THREE TIMES A Active [facility] DAY 2017 [facility] [place] Pantoprazole Sodium DAILY Active [facility] 2017 [facility] [place] Metoprolol Tartrate TWICE DAILY Active Strange [facility] 2017 [facility] [place] Clopidogrel DAILY Active [facility] Bisulfate 2017 [facility] [place] Atorvastatin AT BEDTIME Active St[facility] Calcium 2017 [facility] [place] Amlodipine DAILY Active [facility] 2017 [facility] [place] Clopidogrel DAILY Active [facility] Bisulfate 2017 [facility] [place] Metoprolol Tartrate TWICE DAILY Active [facility] 2017 [facility] [place] Sertraline DAILY Active [facility] 2017 [facility] [place] Tramadol Hcl EVERY 6 HOURS Active [facility] PRN For Pain 2017 [facility] [place] Ranolazine DAILY Active [facility] 2017 [facility] [place] Sub-Q Insulin DAILY Active . Device, 40 Unit 2017 [facility] [place] Cefdinir TWICE DAILY Active [facility] 2016 [facility] [place] Methylprednisolone DAILY Active [facility] 2016 [facility] [place] Guaifen W/Codeine TWICE DAILY Active [facility] Syrup PRN For Cough 2016 [facility] [place] Amlodipine Besylate DAILY Active [facility] 2016 [facility] [place] Clopidogrel DAILY Active [facility] Bisulfate 2016 [facility] [place] Fenofibrate DAILY Active [facility] 2016 [facility] [place] Insulin Aspart THREE TIMES Active St. DAILY 2016 [facility] - NEEDED PRN For [place] hyperglycemia Liraglutide DAILY Active [facility] 2016 [facility] [place] Ranolazine DAILY Active [facility] 2016 [facility] [place] Insulin Detemir AT BEDTIME Active [facility] 2016 [facility] [place] Metoprolol Tartrate [...] DARBY 06/19 - 1view DX DX - [facility] : 1965; Age: 53 years y/o Male MR: [id number] Read by: Bill Pineda MD Dictated Date/time: [...] within the left lung. No pneumothorax. 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 IMPRESSION: Small right pleural effusion. SL: [id number] Chest 2 Chest 2 EXAM: XR CHEST [...] normal. IMPRESSION: No acute cardiopulmonary process. SL: [id number] Laboratory Sodium Level 138 mEq/L 135 - 145 06/05 [facility] Studies [facility] [place] Laboratory Potassium 5.1 mEq/L 3.6 - 5.0 06/05 [facility] St[facility] Studies Level [facility] [place] Laboratory Phosphorus 7.4 mg/dL 2.5 - 4.3 06/05 [facility] St[facility] Studies Level [facility] [place] Laboratory Glucose 167 mg/dL 65 - 120 06/05 [facility] St[facility] Studies Level [facility] [place] Laboratory Estimat 10 mL/min 90 06/05 [facility] Studies Glomerular [facility] - Filtration [place] Rate Laboratory Creatinine 6.17 mg/dL 0.61 - 06/05 [facility] St. Studies 1. [facility] [place] Laboratory Chloride 104 mEq/L 101 - 111 06/05 [facility] St[facility] Studies Level [facility] [place] Laboratory Carbon 23 mEq/L 21 - 31 06/05 [facility] Studies Dioxide [facility] - Level [place] Laboratory Calcium 9.1 mg/dL 8.5 - 10.5 06/[address] Studies Level [facility] [place] Laboratory Blood Urea 87 mg/dL 6 - 20 06/05 St[facility] Studies Nitrogen [facility] [place] Laboratory Albumin 3.4 g/dL 3.2 - 5.5 06/05 St[facility] Studies [facility] [place] Laboratory Bedside 155 mg/dl 65 - 120 06/03 [facility] St[facility] Studies Glucose [facility] [place] Laboratory Urine Urine 06/01 [facility] St[facility] Studies Immunoelectr Immunoelec [facility] - ophoresis 24 trophoresi [place] Hr s 24 Hr Laboratory Anti-Double 2 IU/mL 06/01 [facility] St[facility] Studies Strand DNA [facility] - Antibody [place] Laboratory Anti-Protein null 06/01 [facility] St[facility] Studies ase 3 [facility] - (c-ANCA) [place] Laboratory Anti-Myelope null 06/01 [facility]. Studies roxidase Ab [facility] - (p-ANCA) [place] Laboratory Complement 31 mg/dL 06/01 [facility] St[facility] Studies C4 [facility] [place] Laboratory Complement 127 mg/dL 06/01 [facility] St[facility] Studies C3 [facility] [place] Laboratory Thyroid 2.92 0.34 - 06/01 [facility] St. Studies Stimulating uIU/mL 5.60 [facility] - Hormone [place] (TSH) Laboratory Anti-Nuclear Anti-Nucle 05/30 [facility]. Studies Antibody ar [facility] - Titer Antibody [place] Titer Laboratory Anti-Nuclear Anti-Nucle 05/30 [facility]. Studies Antibody ar [facility] - Pattern Antibody [place] Pattern Laboratory Anti-Nuclear Anti-Nucle 05/30 [facility] St[facility] Studies Antibody ar [facility] - Screen Antibody [place] Screen Laboratory Anti-Nuclear Anti-Nucle 05/30 [facility] St[facility] Studies Antibody ar [facility] - Pattern 2 Antibody [place] Pattern 2 Laboratory Hepatitis C Hepatitis 05/30 [facility]. Studies Antibody C Antibody /2016 [facility] [place] Laboratory Hepatitis C 0.03 ratio 05/30 [facility]. Studies Ab [facility] Signal/Cutof [place] f Ratio Laboratory Hepatitis B Hepatitis 05/30 [facility]. Studies Surface B Surface /2016 [facility] Antigen Antigen [place] Laboratory Hepatitis B Hepatitis 05/30 [facility]. Studies Surface Ag B Surface /2016 [facility] Confirmation Ag [place] Confirmati on Laboratory Hepatitis B Hepatitis 05/30 [facility]. Studies Core IgM B Core IgM /2016 [facility] - Antibody Antibody [place] Laboratory Hepatitis A Hepatitis 05/30 [facility]. Studies IgM Antibody A IgM /2016 [facility] Antibody [place] Laboratory HIV-1 RNA, HIV-1 RNA, 05/30 [facility]. Studies Qualitat Qualitat /2016 [facility] - (TMA) (TMA) [place] Comment Comment Laboratory HIV (1&2) Ag HIV (1&2) 05/30 [facility]. Studies and Ab, 4th Ag and Ab, /2016 [facility] - Generation 4th [place] Generation Laboratory HIV (1&2) Ab HIV (1&2) 05/30 [facility]. Studies Differential Ab /2016 [facility] - Comment Differenti [place] al Comment Laboratory Creatine 162 IU/L 22 - 269 05/30 [facility] St[facility] Studies Kinase /2016 [facility] Vitamin B12 173 pg/ml 180 - 914 05/30 [facility]. Studies Level /2016 [facility] Laboratory Total 0.4 mg/dL 0.3 - 1.2 05/30 [facility]. Studies Bilirubin /2016 [facility] Laboratory Serum Total 6.5 g/dL 6.0 - 8.3 05/30 [facility]. Studies Protein /2016 [facility] Globulin 3.1 g/dL 2.3 - 3.5 05/30 [facility] Studies /2016 [facility] - [place] Laboratory Ferritin 337.4 23.9 - 05/30 [facility]. Studies ng/ml 336.2 /2016 [facility] [place] Laboratory Aspartate 12 IU/L 10 - 42 05/30 [facility]. Studies Amino Transf /2016 [facility] - (AST[facility]SGOT) [facility] Alkaline 54 IU/L 42 - 121 05/30 [facility]. Studies Phosphatase /2016 [facility] Laboratory Albumin/Glob 1.1 1.1 - 1.8 05/30 [facility]. Studies ulin Ratio /2016 [facility] [place] Laboratory Alanine 10 IU/L 10 - 60 05/30 [facility]. Studies Aminotransfe /2016 [facility] rasfabby [place] (ALT/SGPT) Laboratory White Blood 7.9 K/uL 4.3 - 10.9 05/30 [facility]. Studies Count /2016 [facility] [place] Laboratory Red Cell 15.2 % 12.1 - 05/30 [facility]. Studies Distribution 15.2 /2016 [facility] - Width [place] Laboratory Red Blood 2.75 M/uL 4.33 - 05/30 [facility]. Studies Count 5.43 /2016 [facility] [place] Laboratory Platelet 314 K/uL 152 - 406 05/30 [facility]. Studies Count /2016 [facility] - [place] Laboratory Neutrophils 56.6 % 41.7 - 05/[address] Studies % 73.7 /2016 [facility] [place] Laboratory Monocytes % 12.0 % 3.3 - 12.3 05/30 [facility] Studies /2016 [facility] [place] Laboratory Mean 7.1 fL 7.6 - 11.3 05/30 [facility] Studies Platelet [facility] - Volume [place] Laboratory Mean 85.4 fL 80 - 100 05/30 [facility] Studies Corpuscular /2016 [facility] - Volume [place] Laboratory Mean 34.1 g/dL 32.0 - 05/30 [facility] St[facility] Studies Corpuscular 36.0 /2016 [facility] - Hemoglobin [place] Concent Laboratory Mean 29.1 pg 27.0 - 05/30 [facility] St[facility] Studies Corpuscular 35.0 /2016 [facility] - Hemoglobin [place] Laboratory Lymphocytes 25.1 % 15.3 - 05/30 [facility] St[facility] Studies % 44.8 /2016 [facility] [place] Laboratory Hemoglobin 8.0 g/dL 13.6 - 05/30 [facility] St[facility] Studies 17.9 /2016 [facility] [place] Laboratory Hematocrit 23.5 % 39.6 - 05/30 [facility] St[facility] Studies 49.0 /2016 [facility] [place] Laboratory Eosinophils 5.7 % 0 - 4.4 05/30 [facility] Studies % /2016 [facility] [place] Laboratory Basophils % 0.6 % 0 - 1.3 05/30 [facility] St[facility] Studies [facility] [place] Laboratory Absolute 4.5 K/uL 1.8 - 8.0 05/30 [facility] Studies Neutrophil [facility] [place] Laboratory Absolute 0.9 K/uL 0.1 - 1.3 05/30 [facility] Studies Monocytes [facility] - (CBC) [place] Laboratory Absolute 2.0 K/uL 0.7 - 4.9 05/30 [facility] Studies Lymphocytes [facility] - (CBC) [place] Laboratory Absolute 0.4 K/uL 0 - 0.5 05/30 [facility]. Studies Eosinophils [facility] - (CBC) [place] Laboratory Absolute 0.0 K/uL 0 - 0.5 05/30 [facility] Studies Basophils [facility] - (CBC) [place] Laboratory Urine WBC null 05/29 [facility] St[facility] Studies [facility] [place] Laboratory Urine null 05/29 [facility]. Studies Squamous /2016 [facility] - Epithelial [place] Cells Laboratory Urine RBC Urine RBC 05/29 [facility] Studies /2016 [facility] [place] Laboratory Urine Urine 05/29 [facility]. Studies Culture Culture /2016 [facility] - Reflexed Reflexed [place] Laboratory Urine null 05/29 [facility]. Studies Bacteria /2016 [facility] [place] Laboratory Urine Urine 05/29 [facility]. Studies Amorphous Amorphous [facility] - Sediment Sediment [place] Laboratory Direct null 0 - 0.2 05/29 [facility]. Studies Bilirubin /2016 [facility] [place] Laboratory Amylase 70 U/L 28 - 100 05/29 [facility] Studies Level /2016 [facility] [place] Laboratory Lipase 95 U/L 22 - 51 05/29 [facility]. Studies /2016 [facility] [place] Laboratory Hemoglobin 7.3 % 4 - 6.0 05/11 [facility]. Studies A1c [facility] [place] Laboratory Triglyceride 118 mg/dL 35 - 160 05/11 [facility]. Studies s Level /2016 [facility] [place] Laboratory Magnesium 2.2 mg/dL 1.8 - 2.5 05/11 [facility]. Studies Level /2016 [facility] [place] Laboratory LDL 81 05/11 [facility]. Studies Cholesterol, /2016 [facility] - Calculated [place] Laboratory HDL 26 mg/dL 27 - 67 05/11 [facility]. Studies Cholesterol /2016 [facility] [place] Laboratory Cholesterol/ 5.04 05/11 [facility]. Studies HDL Ratio /2016 [facility] [place] Laboratory Cholesterol 131 mg/dL 05/11 [facility]. Studies Level [facility] [place] Laboratory Troponin I null 05/11 [facility]. Studies [facility] [place] Laboratory Glomerular null 05/10 [facility] Studies Basement /2016 [facility] - Membrane IgG [place] Ab Laboratory Urine pH 6.0 05/10 [facility]. Studies /2016 [facility] [place] Laboratory Urine Total Urine 05/10 [facility] Studies Protein Total /2016 [facility] - Protein [place] Laboratory Urine 1.020 05/10 [facility]. Studies Specific /2016 [facility] - Dovray [place] Laboratory Urine Urine 05/10 [facility]. Studies Nitrite Nitrite [facility] [place] Laboratory Urine Urine 05/10 [facility]. Studies Leukocyte Leukocyte /2016 [facility] - Esterase Esterase [place] Laboratory Urine Urine 05/10 St. Studies Ketones Ketones [facility] [place] Laboratory Urine Urine 05/10 [facility]. Studies Glucose Glucose [facility] [place] Laboratory Urine Blood Urine 05/10 [facility] Studies Blood [facility] [place] Laboratory Creatine 11.3 ng/ml 0.3 - 4.0 05/10 [facility] Studies Kinase MB /2016 [facility] [place] Laboratory B-Type 594 pg/ml 05/10 [facility] Studies Natriuretic [facility] - Peptide [place] Laboratory Rapid null 05/10 [facility]. Studies Troponin I /2016 [facility] [place] Laboratory Prothrombin 11.3 9.5 - 12.5 05/10 [facility] Studies Time SECONDS [facility] [place] Laboratory INR 0.96 05/10 [facility]. Studies Internationa [facility] - l Normalized [place] Ratio Laboratory Activated 28.5 24.3 - 05/10 [facility]. Studies Partial SECONDS 36.9 [facility] - Thromboplast [place] Time Vital Signs Vital Sign Value Date Comments Source Temperature Oral (F) 97.5 F 06/05/2017 [facility] [place] Heart Rate 66 06/05/2017 [facility] [place] Respitory Rate 18 06/05/2017 [facility] [place] Systolic (mm Hg) 131 06/05/2017 [facility] [place] Diastolic (mm Hg) 62 06/05/2017 [facility] - [place] Height 75 06/05/2017 [facility] [place] [place] Weight 228 06/05/2017 [facility] [place] Encounters Location Location Encounter Encounter Reason Attending ADM DC Status Source Details Type Number For Provider Date Date Visit [facility]. Registered [id number] 04/11 [facility] [place] [facility] Registered [id number] 04/13 [facility] [place] [facility] Registered [id number] 04/18 [facility] Referred 65 [facility] [place] [facility] Registered [id number] 04/20 [facility] Referred [facility] [place] [facility] Departed [id number] 04/27 04/27 [facility] 73 /2016 [facility] [place] [facility] [place] [facility] Discharged [id number] 05/10 05/11 [facility] Inpatient 99 /2016 [facility] [place] [facility] Discharged [id number] 06/01 06/05 [facility] Inpatient 75 [facility] [place] Procedures Procedure Code Date Perfomer Comments Source Chest Single [id number] 06/03/2017 [facility] View [place] Chest Pa And Lat [id number] 06/02/2017 [facility] - (2 Views) [place] Abdomen & Pelvis [id number] 05/29/2017 [facility] - Wo Contrast [place] Chest Pa And Lat [id number] 05/11/2017 [facility] - (2 Views) [place] Abdomen & Pelvis [id number] 05/10/2017 [facility] - Wo Contrast [place] Chest Single [id number] 05/10/2017 [facility] View [place] REMOVAL OF [id number] 04/27/2017 [facility] - INFUSION DEVICE [place] FROM UPPER VEIN, OPEN APPROACH REMOVAL TUNNELED [id number] 04/27/2017 [facility] - CV CATH [place]
--- OUTSIDE RECORDS SUMMARY | 2018-09-12 04:03 | XMS REPORT ---
:1965 [facility] Address [facility] [address] [place] [address] Care Team Providers Name Role Phone DWIGHT [...] (BEAKER) (test 243 mg/dL 70-[address] [facility] [address] [place] [address] fefr=[phone]) [address] [facility] [place] [address] BASIC METABOLIC [id number] 13:51:00 Test Item Value Reference Range Comments SODIUM (BEAKER) (test 139 meq/L 135-148 cmtd=570) POTASSIUM (BEAKER) (test 3.4 meq/L 3.6-5.5 bioz=327) CHLORIDE (BEAKER) (test 101 meq/L 98-106 opst=951) CO2 (BEAKER) (test 29 meq/L 20-29 befo=413) BLOOD UREA NITROGEN 11 mg/dL 10-26 (BEAKER) (test flee=782) CREATININE (BEAKER) (test 2.10 mg/dL 0.50-1.20 mcuy=322) GLUCOSE RANDOM (BEAKER) 157 mg/dL 70-110 (test gpot=617) CALCIUM (BEAKER) (test 8.6 mg/dL 8.5-10.5 mwag=542) EGFR (BEAKER) (test 33 mL/min/1.73 sq m ESTIMATED GFR IS NOT tpok=1120) ACCURATE CREATININE CLEARANCE IN PREDICTING GLOMERULAR FILTRATION RATE. ESTIMATED GFR IS NOT APPLICABLE FOR DIALYSIS PATIENTS. [id number] 13:44:00 Test Item Value Reference Range Comments MAGNESIUM (BEAKER) (test bugt=485) 1.9 mg/dL 1.5-3.0 CBC W/PLT COUNT & AUTO [id number] 13:34:00 Test Item Value Reference Range Comments WHITE BLOOD CELL COUNT (BEAKER) (test fwrt=412) 6.8 K/ L 4.0-10.0 RED BLOOD CELL COUNT (BEAKER) (test rsyi=808) 2.92 M/ L 4.20-5.80 HEMOGLOBIN (BEAKER) (test ukmp=023) 8.4 GM/DL 13.0-16.8 HEMATOCRIT (BEAKER) (test vvdt=173) 25.5 % 40.0-50.0 MEAN CORPUSCULAR VOLUME (BEAKER) (test mfto=409) 87.4 fL 82.0-98.0 MEAN CORPUSCULAR HEMOGLOBIN (BEAKER) (test 28.7 pg 27.0-33.0 jkmf=025) MEAN CORPUSCULAR HEMOGLOBIN CONC (BEAKER) (test 32.8 GM/DL 32.0-36.0 ycnn=667) RED CELL DISTRIBUTION WIDTH (BEAKER) (test 14.7 % 10.3-14.2 zwvq=239) PLATELET COUNT (BEAKER) (test dfzt=099) 299 K/CU MM 150-430 MEAN PLATELET VOLUME (BEAKER) (test yeyk=024) 6.9 fL 6.5-10.5 NUCLEATED RED BLOOD CELLS (BEAKER) (test 0 /100 WBC 0-0 mofu=639) NEUTROPHILS RELATIVE PERCENT (BEAKER) (test 65 % exib=800) LYMPHOCYTES RELATIVE PERCENT (BEAKER) (test 18 % iznc=931) MONOCYTES RELATIVE PERCENT (BEAKER) (test 14 % pcon=064) EOSINOPHILS RELATIVE PERCENT (BEAKER) (test 3 % fdto=848) BASOPHILS RELATIVE PERCENT (BEAKER) (test 1 % pqek=664) NEUTROPHILS ABSOLUTE COUNT (BEAKER) (test 4.40 K/ L 1.80-8.00 wszx=128) LYMPHOCYTES ABSOLUTE COUNT (BEAKER) (test 1.20 K/ L 1.48-4.50 xuty=201) MONOCYTES ABSOLUTE COUNT (BEAKER) (test 1.00 K/ L 0.00-1.30 xvsc=796) EOSINOPHILS ABSOLUTE COUNT (BEAKER) (test 0.20 K/ L 0.00-0.50 ismk=133) BASOPHILS ABSOLUTE COUNT (BEAKER) (test 0.00 K/ L 0.00-0.20 zqby=516) POCT-GLUCOSE [id number] 11:28:00 Test Item Value Reference Range Comments POC-GLUCOSE METER (BEAKER) 147 mg/dL 70-110 TESTED AT [address] (test ywiq=9188) [place] [address] POCT-GLUCOSE [id number] 06:04:00 Test Item Value Reference Range Comments POC-GLUCOSE METER (BEAKER) 137 mg/dL 70-110 TESTED AT [address] (test vqyb=4471) [place] [address] POCT-GLUCOSE [id number] 21:01:00 Test Item Value Reference Range Comments POC-GLUCOSE METER (BEAKER) 138 mg/dL 70-110 TESTED AT [address] (test zuye=0249) [place] [address] POCT-GLUCOSE [id number] 16:06:00 Test Item Value Reference Range Comments POC-GLUCOSE METER (BEAKER) 167 mg/dL 70-110 TESTED AT [address] (test jecz=0759) [place] [address] POCT-GLUCOSE [id number] 12:49:00 Test Item Value Reference Range Comments POC-GLUCOSE METER (BEAKER) 144 mg/dL 70-110 TESTED AT [address] (test pqag=1529) [place] [address] [id number] 10:27:00 Test Item Value Reference Range Comments POC-CREATININE (BEAKER) 3.6 mg/dL 0.6-1.3 TESTED AT [address] (test bjsm=7772) [place] [address] POC-EGFR (BEAKER) (test 18 mL/min/1.73M2 ibcp=3165) [id number] 10:27:00 Test Item Value Reference Range Comments POC-SODIUM (BEAKER) (test 138 meq/L 135-148 TESTED AT [address] bamq=3414) [place] [address] [id number] 10:27:00 Test Item Value Reference Range Comments POC-POTASSIUM (BEAKER) 3.6 meq/L 3.6-5.5 TESTED AT [address] (test kwws=0608) [place] [address] [id number] 10:27:00 Test Item Value Reference Range Comments POC-BUN (BEAKER) (test 20 mg/dL 7-21 TESTED AT [address] leeq=3720) [place] [address] [id number] 10:27:00 Test Item Value Reference Range Comments POC-CHLORIDE (BEAKER) (test 97 meq/L 98-107 TESTED AT [address] vdev=4264) [place] [address] [id number] 10:27:00 Test Item Value Reference Range Comments POC-GLUCOSE (BEAKER) (test 123 mg/dL 70-110 TESTED AT [address] fczr=2389) [place] [address] [id number] 10:27:00 Test Item Value Reference Range Comments POC-HEMATOCRIT (BEAKER) (test 24 % 40-50 TESTED AT [address] ieaw=6463) [place] [address] [id number] 10:27:00 Test Item Value Reference Range Comments POC-HEMOGLOBIN (BEAKER) 8.2 g/dL 13.0-16.8 TESTED AT [address] (test yxfd=1836) [place] [address] [id number] 10:27:00 Test Item Value Reference Range Comments POC-TCO2 (BEAKER) (test 30 meq/L 22-29 TESTED AT [address] kgxz=3708) [place] [address] POCT-GLUCOSE [id number] 06:08:00 Test Item Value Reference Range Comments POC-GLUCOSE METER (BEAKER) 163 mg/dL 70-110 TESTED AT [address] (test uzsf=2446) [place] [address] POCT-GLUCOSE [id number] 21:07:00 Test Item Value Reference Range Comments POC-GLUCOSE METER (BEAKER) 132 mg/dL 70-[address] [facility] [address] [place] [address] (test inly=4176) [facility] [address] POCT-GLUCOSE [id number] 12:58:00 Test Item Value Reference Range Comments POC-GLUCOSE METER (BEAKER) 178 mg/dL 70-110 TESTED AT [address] (test xwad=2060) [facility] [address] POCT-GLUCOSE [id number] 05:29:00 Test Item Value Reference Range Comments POC-GLUCOSE METER (BEAKER) 171 mg/dL 70-110 TESTED AT [address] (test njxx=9975) [facility] [address] POCT-GLUCOSE [id number] 22:03:00 Test Item Value Reference Range Comments POC-GLUCOSE METER (BEAKER) 249 mg/dL 70-110 TESTED AT [address] (test ajzw=0559) [facility] [address] POCT-GLUCOSE [id number] 16:45:00 Test Item Value Reference Range Comments POC-GLUCOSE METER (BEAKER) 213 mg/dL 70-110 TESTED AT [address] (test fpqr=5020) [facility] [address] [id number] 16:43:00 Test Item Value Reference Range Comments THYROID STIMULATING HORMONE (BEAKER) (test 2.09 uIU/mL 0.35-5.50 socf=829) COMPREHENSIVE METABOLIC [id number] 16:24:00 Test Item Value Reference Range Comments TOTAL PROTEIN (BEAKER) 7.2 gm/dL 6.0-8.5 (test dmzk=289) ALBUMIN (BEAKER) (test 3.5 g/dL 3.5-5.0 skhs=3462) ALKALINE PHOSPHATASE 67 U/L 30-115 (BEAKER) (test siox=111) BILIRUBIN TOTAL (BEAKER) 0.3 mg/dL 0.1-1.2 (test tykh=800) SODIUM (BEAKER) (test 136 meq/L 135-148 gldf=862) POTASSIUM (BEAKER) (test 4.1 meq/L 3.6-5.5 mcul=599) CHLORIDE (BEAKER) (test 98 meq/L 98-106 guqm=904) CO2 (BEAKER) (test 26 meq/L 20-29 xrhh=564) BLOOD UREA NITROGEN 32 mg/dL 10-26 (BEAKER) (test vslx=968) CREATININE (BEAKER) (test 4.40 mg/dL 0.50-1.20 gfvh=808) GLUCOSE RANDOM (BEAKER) 212 mg/dL 70-110 (test mdsy=447) CALCIUM (BEAKER) (test 9.0 mg/dL 8.5-10.5 vlzx=534) AST (SGOT) (BEAKER) (test 14 U/L 5-40 mtmg=935) ALT (SGPT) (BEAKER) (test 4 U/L 5-50 aizr=863) EGFR (BEAKER) (test 14 mL/min/1.73 sq m ESTIMATED GFR IS NOT gzrb=5267) ACCURATE CREATININE CLEARANCE IN PREDICTING GLOMERULAR FILTRATION RATE. ESTIMATED GFR IS NOT APPLICABLE FOR DIALYSIS PATIENTS. CBC W/PLT COUNT & AUTO [id number] 16:02:00 Test Item Value Reference Range Comments WHITE BLOOD CELL COUNT (BEAKER) (test chka=071) 6.9 K/ L 4.0-10.0 RED BLOOD CELL COUNT (BEAKER) (test xbzy=614) 2.95 M/ L 4.20-5.80 HEMOGLOBIN (BEAKER) (test vxrr=790) 8.6 GM/DL 13.0-16.8 HEMATOCRIT (BEAKER) (test uxmc=984) 25.9 % 40.0-50.0 MEAN CORPUSCULAR VOLUME (BEAKER) (test keps=495) 87.9 fL 82.0-98.0 MEAN CORPUSCULAR HEMOGLOBIN (BEAKER) (test 29.0 pg 27.0-33.0 lrxh=004) MEAN CORPUSCULAR HEMOGLOBIN CONC (BEAKER) (test 33.0 GM/DL 32.0-36.0 cqvv=836) RED CELL DISTRIBUTION WIDTH (BEAKER) (test 15.0 % 10.3-14.2 hkrr=134) PLATELET COUNT (BEAKER) (test scgb=615) 330 K/CU MM 150-430 MEAN PLATELET VOLUME (BEAKER) (test amgk=750) 7.1 fL 6.5-10.5 NUCLEATED RED BLOOD CELLS (BEAKER) (test 0 /100 WBC 0-0 brkk=494) NEUTROPHILS RELATIVE PERCENT (BEAKER) (test 66 % jmex=425) LYMPHOCYTES RELATIVE PERCENT (BEAKER) (test 16 % cgvi=608) MONOCYTES RELATIVE PERCENT (BEAKER) (test 12 % xxfp=661) EOSINOPHILS RELATIVE PERCENT (BEAKER) (test 5 % wtgx=071) BASOPHILS RELATIVE PERCENT (BEAKER) (test 1 % gzhk=699) NEUTROPHILS ABSOLUTE COUNT (BEAKER) (test 4.60 K/ L 1.80-8.00 aiju=995) LYMPHOCYTES ABSOLUTE COUNT (BEAKER) (test 1.10 K/ L 1.48-4.50 vdyt=711) MONOCYTES ABSOLUTE COUNT (BEAKER) (test 0.80 K/ L 0.00-1.30 ctru=883) EOSINOPHILS ABSOLUTE COUNT (BEAKER) (test 0.30 K/ L 0.00-0.50 hzrm=299) BASOPHILS ABSOLUTE COUNT (BEAKER) (test 0.10 K/ L 0.00-0.20 fila=557) PROTHROMBIN [id number] 16:01:00 Test Item Value Reference Range Comments PROTIME (BEAKER) (test xofs=524) 10.3 seconds 9.3-12.0 INR (BEAKER) (test ccqq=634) 1.0 <=5.9 RECOMMENDED COUMADIN/WARFARIN INR THERAPY RANGESSTANDARD DOSE: 2.0 - 3.0 Includes: PROPHYLAXIS forvenous thrombosis, systemic embolization; TREATMENT for venous thrombosis and/or pulmonary embolus.HIGH RISK: Target INR is 2.5-3.5 for patients with mechanical heart valves.POCT-GLUCOSE [id number] 12:01:00 Test Item Value Reference Range Comments POC-GLUCOSE METER (BEAKER) 211 mg/dL 70-[address] [facility] [address] [place] [address] (test xzfg=4877) [facility] [address] POCT-GLUCOSE [id number] 06:08:00 Test Item Value Reference Range Comments POC-GLUCOSE METER (BEAKER) 191 mg/dL 70-110 TESTED AT [address] (test wdqu=7219) [facility] [address] POCT-GLUCOSE [id number] 21:28:00 Test Item Value Reference Range Comments POC-GLUCOSE METER (BEAKER) 233 mg/dL 70-110 TESTED AT [address] (test gqfa=3476) [facility] [address] POCT-GLUCOSE [id number] 16:19:00 Test Item Value Reference Range Comments POC-GLUCOSE METER (BEAKER) 290 mg/dL 70-110 TESTED AT [address] (test dagg=5139) [facility] [address] POCT-GLUCOSE [id number] 13:33:00 Test Item Value Reference Range Comments POC-GLUCOSE METER (BEAKER) 186 mg/dL 70-110 TESTED AT [address] (test uzuu=7412) [facility] [address] POCT-GLUCOSE [id number] 06:27:00 Test Item Value Reference Range Comments POC-GLUCOSE METER (BEAKER) 204 mg/dL 70-110 TESTED AT [address] (test sepi=5831) [facility] [address] POCT-GLUCOSE [id number] 21:40:00 Test Item Value Reference Range Comments POC-GLUCOSE METER (BEAKER) 267 mg/dL 70-110 TESTED AT [address] (test oaue=5063) [facility] [address] POCT-GLUCOSE [id number] 17:32:00 Test Item Value Reference Range Comments POC-GLUCOSE METER (BEAKER) 221 mg/dL 70-110 TESTED AT [address] (test mcfc=5306) [facility] [address] HEPATITIS B SURFACE [id number] 14:21:00 Test Item Value Reference Range Comments HEPATITIS B SURFACE ANTIBODY (BEAKER) (test < mIU/mL <8.0 ksis=284) HEPATITIS B CORE ANTIBODY, [id number] 14:15:00 Test Item Value Reference Range Comments HEPATITIS B CORE TOTAL ANTIBODY (BEAKER) (test Nonreactive Nonreactive suqa=004) POCT-GLUCOSE [id number] 12:18:00 Test Item Value Reference Range Comments POC-GLUCOSE METER (BEAKER) 193 mg/dL 70-110 TESTED AT [address] (test kjrj=6185) [facility] [address] RAD, CHEST, 1 VIEW, NON [id number] 08:49:00Reason for exam:->for outpatient HD placementShould this [...] Hammereport Verified Date/Time: 06/10/2017 08:49:42 Reading Location: [facility] Radiology Reading Room Electronically signed by: SACHI HAMMER on 2016 08:49 AMPOCT-GLUCOSE [id number] 06:53:00 Test Item Value Reference Range Comments POC-GLUCOSE METER (BEAKER) 177 mg/dL 70-110 TESTED AT [address] (test okwa=5041) [facility] [address] POCT-GLUCOSE [id number] 22:10:00 Test Item Value Reference Range Comments POC-GLUCOSE METER (BEAKER) 109 mg/dL 70-110 TESTED AT [address] (test doer=7809) [facility] [address] HEPATITIS B SURFACE [id number] 20:18:00 Test Item Value Reference Range Comments HEPATITIS B SURFACE ANTIGEN (2) (BEAKER) (test Nonreactive Nonreactive yfsy=0439) POCT-GLUCOSE [id number] 17:08:00 Test Item Value Reference Range Comments POC-GLUCOSE METER (BEAKER) 223 mg/dL 70-110 TESTED AT [address] (test oasf=9652) [facility] [address] POCT-GLUCOSE [id number] 12:47:00 Test Item Value Reference Range Comments POC-GLUCOSE METER (BEAKER) 200 mg/dL 70-110 TESTED AT [address] (test qemq=3021) [facility] [address] ANG, TUNNELED CATHETER [id number] 12:13:00Reason for exam:->renal failureFINAL REPORT Tunneled central [...] the patient's medical record by the nurse. Program Support Specialist: Onesimo Lopez MD. Electrical Appliance Repairer: None. Approach: Right internal jugular vein Estimated [...] needle into the right atrium. A 4 Armenian micropuncture sheath was placed. A subcutaneous tunnel was created in the right anterior chest wall by blunt dissection. A 19 cm tipped cuff 15.5 Armenian Duraflow 2 catheter was brought through the [...] Lopez Verified Date/Time: 06/09/2017 12:13:36 Reading Location: [facility] Radiology Reading Room 12 :13 PMPOCT-GLUCOSE [id number] 06:03:00 Test Item Value Reference Range Comments POC-GLUCOSE METER (BEAKER) 208 mg/dL 70-[address] [facility] [address] [facility] (test zfjw=4671) [address] [facility] [address] BASIC METABOLIC [id number] 06:00:00 Test Item Value Reference Range Comments SODIUM (BEAKER) (test 139 meq/L 135-148 vmoy=655) POTASSIUM (BEAKER) (test 3.5 meq/L 3.6-5.5 nsxv=503) CHLORIDE (BEAKER) (test 103 meq/L 98-106 ghoq=395) CO2 (BEAKER) (test 26 meq/L 20-29 wqfi=282) BLOOD UREA NITROGEN 62 mg/dL 10-26 (BEAKER) (test rhth=558) CREATININE (BEAKER) (test 5.10 mg/dL 0.50-1.20 qmsf=913) GLUCOSE RANDOM (BEAKER) 191 mg/dL 70-110 (test tkak=929) CALCIUM (BEAKER) (test 9.0 mg/dL 8.5-10.5 tgpi=987) EGFR (BEAKER) (test 12 mL/min/1.73 sq m ESTIMATED GFR IS NOT bime=7091) ACCURATE CREATININE CLEARANCE IN PREDICTING GLOMERULAR FILTRATION RATE. ESTIMATED GFR IS NOT APPLICABLE FOR DIALYSIS PATIENTS. HEPATIC FUNCTION [id number] 05:58:00 Test Item Value Reference Range Comments TOTAL PROTEIN (BEAKER) (test ninh=128) 6.3 gm/dL 6.0-8.5 ALBUMIN (BEAKER) (test rcwb=4717) 3.2 g/dL 3.5-5.0 BILIRUBIN TOTAL (BEAKER) (test kwds=129) 0.4 mg/dL 0.1-1.2 BILIRUBIN DIRECT (BEAKER) (test ugaz=135) 0.2 mg/dL 0.0-0.4 ALKALINE PHOSPHATASE (BEAKER) (test vdzx=363) 67 U/L 30-115 AST (SGOT) (BEAKER) (test meiz=588) 13 U/L 5-40 ALT (SGPT) (BEAKER) (test fipr=578) 10 U/L 5-50 CBC W/PLT COUNT & AUTO [id number] 05:56:00 Test Item Value Reference Range Comments WHITE BLOOD CELL COUNT (BEAKER) (test jrsz=269) 6.3 K/ L 4.0-10.0 RED BLOOD CELL COUNT (BEAKER) (test ytvt=937) 2.71 M/ L 4.20-5.80 HEMOGLOBIN (BEAKER) (test ecar=665) 7.8 GM/DL 13.0-16.8 HEMATOCRIT (BEAKER) (test jrri=867) 23.6 % 40.0-50.0 MEAN CORPUSCULAR VOLUME (BEAKER) (test jyhz=653) 86.8 fL 82.0-98.0 MEAN CORPUSCULAR HEMOGLOBIN (BEAKER) (test 28.6 pg 27.0-33.0 rkdv=986) MEAN CORPUSCULAR HEMOGLOBIN CONC (BEAKER) (test 33.0 GM/DL 32.0-36.0 qpjq=264) RED CELL DISTRIBUTION WIDTH (BEAKER) (test 14.8 % 10.3-14.2 obub=859) PLATELET COUNT (BEAKER) (test cwhr=431) 334 K/CU MM 150-430 MEAN PLATELET VOLUME (BEAKER) (test mtbq=909) 6.9 fL 6.5-10.5 NUCLEATED RED BLOOD CELLS (BEAKER) (test 0 /100 WBC 0-0 hqvl=046) NEUTROPHILS RELATIVE PERCENT (BEAKER) (test 57 % euqr=242) LYMPHOCYTES RELATIVE PERCENT (BEAKER) (test 19 % cpms=402) MONOCYTES RELATIVE PERCENT (BEAKER) (test 15 % tawx=348) EOSINOPHILS RELATIVE PERCENT (BEAKER) (test 7 % ejfg=811) BASOPHILS RELATIVE PERCENT (BEAKER) (test 1 % zrzs=376) NEUTROPHILS ABSOLUTE COUNT (BEAKER) (test 3.60 K/ L 1.80-8.00 xgkg=467) LYMPHOCYTES ABSOLUTE COUNT (BEAKER) (test 1.20 K/ L 1.48-4.50 opvv=449) MONOCYTES ABSOLUTE COUNT (BEAKER) (test 1.00 K/ L 0.00-1.30 igrp=452) EOSINOPHILS ABSOLUTE COUNT (BEAKER) (test 0.50 K/ L 0.00-0.50 hptn=580) BASOPHILS ABSOLUTE COUNT (BEAKER) (test 0.10 K/ L 0.00-0.20 emad=625) [id number] 05:55:00 Test Item Value Reference Range Comments PHOSPHORUS (BEAKER) (test ftqg=985) 4.1 mg/dL 2.5-4.5 [id number] 05:51:00 Test Item Value Reference Range Comments PROTIME (BEAKER) (test fusk=138) 10.7 seconds 9.3-12.0 INR (BEAKER) (test yjlh=760) 1.0 <=5.9 PARTIAL THROMBOPLASTIN TIME (BEAKER) (test 28.5 seconds 23.0-35.0 sphy=202) RECOMMENDED COUMADIN/WARFARIN INR THERAPY RANGESSTANDARD DOSE: 2.0 - 3.0 Includes: PROPHYLAXIS forvenous thrombosis, systemic embolization; TREATMENT for venous thrombosis and/or pulmonary embolus.HIGH RISK: Target INR is 2.5-3.5 for patients with mechanical heart valves.[id number] 05:50:00 Test Item Value Reference Range Comments MAGNESIUM (BEAKER) (test pbif=121) 1.7 mg/dL 1.5-3.0 POCT-GLUCOSE [id number] 23:14:00 Test Item Value Reference Range Comments POC-GLUCOSE METER (BEAKER) 230 mg/dL 70-[address] [facility] [address] [place] [address] (test dsgx=2835) [facility] [address]
[2018-09-12] MEDS ORDERED: ONDANSETRON 4 MG/2 ML VIAL ONE ×2 (04:47→07:28)
[2018-09-12] MEDS ORDERED: MORPHINE 2 MG/ML SYR ONE (04:48)
[2018-09-12 05:18] LABS: Absolute Lymphocytes (CBC) 0.5 K/uL (0.7-4.9); Absolute Monocytes 1.1 K/uL (0.1-1.3); Absolute Neutrophil 4.7 K/uL (1.8-8.0); Basophils % 0.9 % (0-1.3); Hematocrit 36.1 % (39.6-49.0); Lymphocytes % 7.2 % (15.3-44.8); MPV 8.6 fL (7.6-11.3); Monocytes % 15.8 % (3.3-12.3); RBC Red Blood Cell Count 4.04 M/uL (4.33-5.43)
--- NOTE | 2018-09-12 05:29 | ER ---
Nurse's Notes [facility] Name: Yusuf Bah Age: 53 yrs Sex: Male : 1965 Arrival Date: 09/12/2018 Time: 04:01 Bed 15 Private MD: Lori Chavarria C Diagnosis: Headache Presentation: 09/12 04:15 Presenting complaint: Patient states: he fell at dialysis Tuesday morning at 0630 and ak1 was taken to [facility] (formerly [facility]3]. pt stated his head CT was negative. pt woke at 0200 this morning with throbbing headache and hands shaking, unable to grasp or hold objects. pt with equal electronic system engineer during triage. Care prior to arrival: None. Mechanism of Injury: fall from standing Tuesday at 0630. Trauma event details: Injury occurred in the [facility], Injury occurred: in a public building. Injury occurred: September 11, 2018 Injury occurred at: 06:30. 04:15 Acuity: ALVERTO 3 ak1 04:15 Method Of Arrival: Wheelchair ak1 05:12 Transition of care: patient was not received from another setting of care. Onset of ak1 symptoms was September 11, 2018. Risk Assessment: Do you want to hurt yourself or someone else? Patient reports no desire to harm self or others. Initial Sepsis Screen: Does the patient meet any 2 criteria? No. Patient's initial sepsis screen is negative. Does the patient have a suspected source of infection? No. Patient's initial sepsis screen is negative. Trauma Activation: Alert Physician: ED Physician; Name: Dr. Umana; Notified At: 04:23; Arrived At: 04:23 Physician: General Surgeon; Name: ; Notified At: 04:23; Arrived At: Physician: Radiology; Name: Oliva; Notified At: 04:23; Arrived At: 04:24 Physician: Respiratory; Name: ; Notified At: 04:23; Arrived At: Physician: Lab; Name: ; Notified At: 04:23; Arrived At: Historical: - Allergies: 04:29 Sulfa (Sulfonamide Antibiotics); ak1 - Home Meds: 04:29 Ambien 5 mg Oral tab 1 tab once daily [Active]; amlodipine 10 mg tab 1 tab once daily ak1 [Active]; aspirin 325 mg Oral tab 1 tab once daily [Active]; atorvastatin 80 mg Oral tab 1 tab once daily [Active]; clonidine HCl 0.1 mg Oral tab 1 tab 3 times per day [Active]; famotidine 40 mg Oral tab 1 tab once daily [Active]; furosemide 40 mg Oral tab 1 tab 2 times per day [Active]; Humalog Sub-Q per insulin pump [Active]; hydralazine 25 mg Oral tab 3 tab 2 times per day [Active]; hydralazine 25 mg Oral tab 3 tab 2 times per day [Active]; lactulose 10 gram/15 mL Oral soln 30 mL once daily [Active]; Lasix 40 mg Oral tab 2 times per day [Active]; metoclopramide HCl 5 mg Oral tab 1 tab three times a day [Active]; metoprolol tartrate 100 mg Oral tab 1 tab 2 times per day [Active]; nitroglycerin 0.2 mg/hr Topical pt24 1 patch as needed [Active]; Nitrostat 0.4 mg SL subl 1 tab every 5 minutes [Active]; [place] 7.5-325 mg Oral tab 1 tab twice a day [Active]; Norvasc 10 mg Oral tab 1 tab once daily [Active]; Plavix 75 mg Oral tab 1 tab once daily [Active]; Prevacid 30 mg Oral cpDR 1 cap once daily [Active]; promethazine 25 mg Oral tab 1 tab every 8 hours [Active]; Ranexa 1,000 mg Oral Tb12 1 tab daily [Active]; sertraline 50 mg Oral tab 1 tab once daily [Active]; sevelamer HCl Oral 2 tabs 3 times per day [Active]; Stool Softener 100 mg Oral tab 1 tab 2 times per day [Active]; Travatan Z 0.004 % ophthalmic drop 1 drop once daily [Active]; Vitamin D2 50,000 unit Oral cap 1 cap once wkly [Active]; Zofran (as hydrochloride) 4 mg Oral tab 1 tabs every 6 hours [Active]; - PMHx: 04:29 Angina; CAD; Depression; Dialysis; Diabetes - IDDM; GERD; Glaucoma; Hypertension; High ak1 Cholesterol; Renal Disease; Small vessle disease of the heart; - PSHx: 04:29 Cholecystectomy; Appendectomy; shoulder; ak1 - Immunization history: Last tetanus immunization: unknown. - Social history:: Smoking status: Patient/guardian denies using tobacco. - Ebola Screening: : No symptoms or risks identified at this time. Screenin:15 Abuse screen: Denies threats or abuse. Denies injuries from another. Tuberculosis ak1 screening: No symptoms or risk factors identified. 04:29 Nutritional screening: No deficits noted. Fall Risk Fall in past 12 months (25 points). ak1 Primary Survey: 04:15 NO uncontrolled hemorrhage observed. A: The patient is alert. Airway: patent. ak1 Breathing/Chest: Respiratory pattern: regular, Respiratory effort: spontaneous, unlabored. Circulation: Skin temperature: warm, dry. Disability Alert. Exposure/Environment: A warming method has been applied: A warm blanket has been provided to the patient. Reassessment Airway Airway Patent Breathing/Chest Respiratory pattern Regular Respiratory effort Spontaneous Unlabored Circulation Color [place] Temperature Warm Dry Disability Alert. Secondary Survey: 04:15 HEENT: Head Other hematoma to right back of head Face No injury/deformity Eyes: No ak1 injury or deformity noted. Ears: clear Nose: clear Throat: No injury or deformity noted. Gastrointestinal: No deficits noted. : No signs and/or symptoms were reported regarding the genitourinary system. Musculoskeletal: No signs and/or symptoms reported regarding the musculoskeletal system. Assessment: 04:15 General: Appears in no apparent distress. Behavior is cooperative, anxious, crying. ak1 Pain: Complains of pain in headache. Neuro: Level of Consciousness is awake, alert, obeys commands, Oriented to person, place, time, situation, Cooker Pie Filling are equal bilaterally Moves all extremities. Speech is normal, Facial symmetry appears normal. EENT: No signs and/or symptoms were reported regarding the EENT system. Cardiovascular: No deficits noted. Respiratory: No deficits noted. GI: pt with vomiting for "over a year" pt was seen, treated and discharged from inpatient on Tuesday. : No signs and/or symptoms were reported regarding the genitourinary system. Derm: hematoma to right back of head s/p fall Tuesday. Musculoskeletal: No signs and/or symptoms reported regarding the musculoskeletal system. 05:11 Reassessment: Patient appears in no apparent distress at this time. No changes from ak1 previously documented assessment. Patient is alert, oriented x 3, equal unlabored respirations, skin warm/dry/pink. pt returned from CT with no improvement on headache pain. ice pack applied to hematoma prior to pt leaving for CT. 06:15 Reassessment: Patient appears in no apparent distress at this time. No changes from ak1 previously documented assessment. Patient and/or family updated on plan of care and expected duration. Pain level reassessed. Patient is alert, oriented x 3, equal unlabored respirations, skin warm/dry/pink. pt has been resting quietly. pt waiting on recollect by lab before discharge. 06:40 Reassessment: lab at bedside for recollect. ak1 07:00 General: Appears in no apparent distress. comfortable, Behavior is calm, cooperative. rb1 Neuro: Level of Consciousness is awake, alert, obeys commands, Oriented to person, place, time, situation. Cardiovascular: Capillary refill < 3 seconds is brisk in bilateral fingers. Respiratory: Airway is patent Respiratory effort is even, unlabored, Respiratory pattern is regular, symmetrical. : dialysis M-W-F. Derm: Dialysis shunt on right upper arm. 07:00 Reassessment: Discharge pending due to waiting for lab results. rb1 Vital Signs: 04:15 BP 172 / 75; Pulse 89; Resp 18; Temp 98.5(O); Pulse Ox 96% on R/A; Weight 97.52 kg (R); ak1 Height 6 ft. 3 in. (190.50 cm) (R); Pain 8/10; 05:14 BP 168 / 62; Pulse 87; Resp 16; Pulse Ox 96% on R/A; ak1 06:47 BP 162 / 68; Pulse 80; Resp 16; Temp 98.4(O); Pulse Ox 95% on R/A; ak1 07:44 BP 151 / 70; Pulse 89; Resp 16; Pulse Ox 96% on R/A; rb1 04:15 Body Mass Index 26.87 (97.52 kg, 190.50 cm) ak1 Aimee Coma Score: 04:15 Eye Response: spontaneous(4). Verbal Response: oriented(5). Motor Response: obeys ak1 commands(6). Total: 15. Trauma Score (Adult): 04:15 Eye Response: spontaneous(1); Verbal Response: oriented(1); Motor Response: obeys ak1 commands(2); Systolic BP: > 89 mm Hg(4); Respiratory Rate: 10 to 29 per min(4); Aimee Score: 15; Trauma Score: 12 ED Course: 04:01 Patient arrived in ED. es 04:01 Lori Chavarria MD is Private Physician. es 04:12 Mehdi Umana MD is Attending Physician. tw4 04:15 Marissa Hartman, RN is Primary Nurse. ak1 04:15 Patient has correct armband on for positive identification. Bed in low position. Call ak1 light in reach. Side rails up X2. Adult w/ patient. 04:15 Patient maintains SpO2 saturation greater than 95% on room air. ak1 04:19 Triage completed. ak1 05:02 CT Head Brain wo Cont In Process Unspecified. EDMS 05:10 Initial lab(s) drawn, by me, sent to lab. Inserted saline lock: 22 gauge in left wrist, ak1 using aseptic technique. Missed attempt(s): 24 gauge in left hand. Bleeding controlled, band aid applied, catheter tip intact. 05:12 Thermoregulation: warm blanket given to patient. ak1 05:13 Arm band placed on Patient placed in an exam room, on a stretcher, on pulse oximetry, ak1 Patient notified of wait time. 05:25 Lori Chavarria MD is Referral Physician. tw4 05:42 No provider procedures requiring assistance completed. ak1 07:45 IV discontinued, intact, bleeding controlled, No redness/swelling at site. Pressure rb1 dressing applied. Administered Medications: 05:09 Drug: Zofran 4 mg Route: IVP; Site: left wrist; ak1 05:10 Drug: morphine 2 mg Route: IVP; Site: left wrist; ak1 07:30 Drug: Phenergan 12.5 mg Route: IVP; Site: left wrist; rb1 07:44 Follow up: Response: No adverse reaction; Nausea is decreased rb1 Intake: 05:42 PO: 0ml; Total: 0ml. ak1 Outcome: 05:28 Discharge ordered by . tw4 06:46 recollect of lab work Patient's length of stay extended due to ak1 07:45 Discharged to home via wheelchair, with family. rb1 07:45 Condition: stable 07:45 Discharge instructions given to patient, Instructed on discharge instructions, follow up and referral plans. medication usage, Demonstrated understanding of instructions, follow-up care, medications, Prescriptions given X 2. 07:46 Patient left the ED. rb1 Signatures: Dispatcher [employer] Kae Carrillo Amber RN RN ak1 Farida Brasher RN RN rb1 Mehdi Umana MD MD tw4
--- NOTE | 2018-09-12 05:30 | EDPHYS ---
Physician Documentation [facility] Name: Yusuf Bah Age: 53 yrs Sex: Male : 1965 Arrival Date: 09/12/2018 Time: 04:01 Bed 15 Private MD: Lori Chavarria C ED Physician Mehdi Umana HPI: 09/12 05:30 This 53 yrs old Male presents to ER via Wheelchair with complaints of Fall tw4 Injury, Dizziness, Vomiting, Headache. 05:30 Details of fall: The patient fell from an upright position, while standing. Onset: The tw4 symptoms/episode began/occurred yesterday. Associated injuries: The patient sustained injury to the head. Severity of symptoms: At their worst the symptoms were moderate, in the emergency department the symptoms are unchanged. The patient has not experienced similar symptoms in the past. Historical: - Allergies: 04:29 Sulfa (Sulfonamide Antibiotics); ak1 - Home Meds: 04:29 Ambien 5 mg Oral tab 1 tab once daily [Active]; amlodipine 10 mg tab 1 tab once daily ak1 [Active]; aspirin 325 mg Oral tab 1 tab once daily [Active]; atorvastatin 80 mg Oral tab 1 tab once daily [Active]; clonidine HCl 0.1 mg Oral tab 1 tab 3 times per day [Active]; famotidine 40 mg Oral tab 1 tab once daily [Active]; furosemide 40 mg Oral tab 1 tab 2 times per day [Active]; Humalog Sub-Q per insulin pump [Active]; hydralazine 25 mg Oral tab 3 tab 2 times per day [Active]; hydralazine 25 mg Oral tab 3 tab 2 times per day [Active]; lactulose 10 gram/15 mL Oral soln 30 mL once daily [Active]; Lasix 40 mg Oral tab 2 times per day [Active]; metoclopramide HCl 5 mg Oral tab 1 tab three times a day [Active]; metoprolol tartrate 100 mg Oral tab 1 tab 2 times per day [Active]; nitroglycerin 0.2 mg/hr Topical pt24 1 patch as needed [Active]; Nitrostat 0.4 mg SL subl 1 tab every 5 minutes [Active]; [place] 7.5-325 mg Oral tab 1 tab twice a day [Active]; Norvasc 10 mg Oral tab 1 tab once daily [Active]; Plavix 75 mg Oral tab 1 tab once daily [Active]; Prevacid 30 mg Oral cpDR 1 cap once daily [Active]; promethazine 25 mg Oral tab 1 tab every 8 hours [Active]; Ranexa 1,000 mg Oral Tb12 1 tab daily [Active]; sertraline 50 mg Oral tab 1 tab once daily [Active]; sevelamer HCl Oral 2 tabs 3 times per day [Active]; Stool Softener 100 mg Oral tab 1 tab 2 times per day [Active]; Travatan Z 0.004 % ophthalmic drop 1 drop once daily [Active]; Vitamin D2 50,000 unit Oral cap 1 cap once wkly [Active]; Zofran (as hydrochloride) 4 mg Oral tab 1 tabs every 6 hours [Active]; - PMHx: 04:29 Angina; CAD; Depression; Dialysis; Diabetes - IDDM; GERD; Glaucoma; Hypertension; High ak1 Cholesterol; Renal Disease; Small vessle disease of the heart; - PSHx: 04:29 Cholecystectomy; Appendectomy; shoulder; ak1 - Immunization history: Last tetanus immunization: unknown. - Social history:: Smoking status: Patient/guardian denies using tobacco. - Ebola Screening: : No symptoms or risks identified at this time. ROS: 05:30 Constitutional: Negative for fever, chills, and weight loss, Eyes: Negative for injury, tw4 pain, redness, and discharge, Cardiovascular: Negative for chest pain, palpitations, and edema, Respiratory: Negative for shortness of breath, cough, wheezing, and pleuritic chest pain, Abdomen/GI: Negative for abdominal pain, nausea, vomiting, diarrhea, and constipation, MS/Extremity: Negative for injury and deformity, Skin: Negative for injury, rash, and discoloration. Exam: 09/13 07:15 Constitutional: This is a well developed, well nourished patient who is awake, alert, tw4 and in no acute distress. Chest/axilla: Normal chest wall appearance and motion. Nontender with no deformity. No lesions are appreciated. Cardiovascular: Regular rate and rhythm with a normal S1 and S2. No gallops, murmurs, or rubs. Normal PMI, no JVD. No pulse deficits. Respiratory: Lungs have equal breath sounds bilaterally, clear to auscultation and percussion. No rales, rhonchi or wheezes noted. No increased work of breathing, no retractions or nasal flaring. Abdomen/GI: Soft, non-tender, with normal bowel sounds. No distension or tympany. No guarding or rebound. No evidence of tenderness throughout. Back: No spinal tenderness. No costovertebral tenderness. Full range of motion. MS/ Extremity: Pulses equal, no cyanosis. Neurovascular intact. Full, normal range of motion. Neuro: Awake and alert, GCS 15, oriented to person, place, time, and situation. Cranial nerves II-XII grossly intact. Motor strength 5/5 in all extremities. Sensory grossly intact. Cerebellar exam normal. Normal gait. Head/face: Noted is contusion. Vital Signs: 09/12 04:15 BP 172 / 75; Pulse 89; Resp 18; Temp 98.5(O); Pulse Ox 96% on R/A; Weight 97.52 kg (R); ak1 Height 6 ft. 3 in. (190.50 cm) (R); Pain 8/10; 05:14 BP 168 / 62; Pulse 87; Resp 16; Pulse Ox 96% on R/A; ak1 06:47 BP 162 / 68; Pulse 80; Resp 16; Temp 98.4(O); Pulse Ox 95% on R/A; ak1 07:44 BP 151 / 70; Pulse 89; Resp 16; Pulse Ox 96% on R/A; rb1 04:15 Body Mass Index 26.87 (97.52 kg, 190.50 cm) ak1 Libby Coma Score: 04:15 Eye Response: spontaneous(4). Verbal Response: oriented(5). Motor Response: obeys ak1 commands(6). Total: 15. Trauma Score (Adult): 04:15 Eye Response: spontaneous(1); Verbal Response: oriented(1); Motor Response: obeys ak1 commands(2); Systolic BP: > 89 mm Hg(4); Respiratory Rate: 10 to 29 per min(4); Libby Score: 15; Trauma Score: 12 MDM: 04:12 Patient medically screened. tw4 05:46 Differential diagnosis: abrasion, closed head injury, contusion. Data reviewed: vital tw4 signs, nurses notes. Data interpreted: court monitor: not applicable for this patient encounter. Counseling: I had a detailed discussion with the patient and/or guardian regarding: the historical points, exam findings, and any diagnostic results supporting the discharge/admit diagnosis. 09/12 04:25 Order name: CBC with Diff; Complete Time: 05:23 tw4 09/12 05:23 Interpretation: Normal except: RBC 4.04; HGB 11.8; HCT 36.1; WBC 6.7; PLT 235. tw4 09/12 04:25 Order name: CT Head Brain wo Cont tw4 09/12 05:40 Order name: Comprehensive Metabolic Panel; Complete Time: 07:28 EDMS 09/12 07:28 Interpretation: Normal except: NA 134; GLUC 108; BUN 45; CRE 6.66. tw4 Administered Medications: 05:09 Drug: Zofran 4 mg Route: IVP; Site: left wrist; ak1 05:10 Drug: morphine 2 mg Route: IVP; Site: left wrist; ak1 07:30 Drug: Phenergan 12.5 mg Route: IVP; Site: left wrist; rb1 07:44 Follow up: Response: No adverse reaction; Nausea is decreased rb1 Disposition: 09/12/18 05:28 Discharged to Home. Impression: Headache. - Condition is Stable. - Discharge Instructions: Concussion, Adult. - Prescriptions for Fiorinal 50- 325-40 mg Oral Capsule - take 1 capsule by ORAL route every 4 hours As needed - not to exceed 6 capsules per day; 20 capsule. Zofran 4 mg Oral Tablet - take 1 tablet by ORAL route every 12 hours As needed; 6 tablet. - Medication Reconciliation Form, Thank You Letter, Antibiotic Education, Prescription Opioid Use form. - Follow up: Lori Chavarria MD; When: Upon discharge from the Emergency Department; Reason: If symptoms return, Recheck today's complaints, Continuance of care. - Problem is new. - Symptoms have improved. Signatures: Dispatcher [employer] [facility] Marissa Hartman RN RN ak1 Farida Brasher RN RN rb1 Mehdi Umana MD MD tw4 Corrections: (The following items were deleted from the chart) 05:40 04:25 COMPREHENSIVE METABOLIC PANEL+C.LAB.BRZ ordered. [facility] EDMS 07:46 05:28 09/12/2018 05:28 Discharged to Home. Impression: Headache. Condition is Stable. rb1 Forms are Medication Reconciliation Form, Thank You Letter, Antibiotic Education, Prescription Opioid Use. Follow up: A Chavarria; When: Upon discharge from the Emergency Department; Reason: If symptoms return, Recheck today's complaints, Continuance of care. Problem is new. Symptoms have improved. tw4
[2018-09-12 07:17] LABS: Albumin 3.4 g/dL (3.4-5.0); Bilirubin Total 0.6 mg/dL (0.2-1.0); Potassium 5.1 mmol/L (3.5-5.1); Protein, Total 8.2 g/dL (6.4-8.2)
[2018-09-12] MEDS ORDERED: PROMETHAZINE 25 MG/ML VIAL ONE (07:31)
[2018-09-12 08:00] VITALS: TEMP 98.4
[2018-09-12 08:01] VITALS: BP 151/70; O2SAT 96
--- NOTE | 2018-09-12 11:47 | RAD REPORT ---
EXAM DESCRIPTION: CT - Head Brain Wo Cont - 09/12/2018 5:13 am CLINICAL HISTORY: HEADACHE COMPARISON: None available TECHNIQUE: Axial CT of the head obtained from the skull apex to the skull base without contrast. FINDINGS: No acute intracranial hemorrhage identified. No mass, mass effect, shift of the midline, a bnormal extra-axial fluid collection or CT evidence of acute ischemic change identified. The ventricu lar system and sulcal spaces are mildly enlarged compatible with mild cerebral atrophy. Scattered a reas of hypodensity throughout the supratentorial white matter are nonspecific and may be related to chronic small vessel ischemic change. The visualized paranasal sinuses and the mastoids are clear. No skull fracture identified. Visualized orbits and globes are unremarkable. Atherosclerotic lashawn cification of the intracranial internal carotid arteries. DLP: 73.8 mGy-cm IMPRESSION: 1. No acute intracranial abnormality by CT criteria. This exam was performed according to our departmental dose-optimization program, which includes autom ated exposure control, adjustment of the mA and/or kV according to patient size and/or use of iterati ve reconstruction technique. Electronically signed by: Jimbo Childers 09/12/2018 5:08 AM CDT Due to temporary technical issues with the PACS/Fluency reporting system, reports are being signed by the in house radiologist as a courtesy to ensure prompt reporting. The interpreting radiologist is f ully responsible for the content of the report.
== END 2018-09-12 07:46 | disposition home or self-care (01) ==
LOC: ER 03:57
DX: R51 Headache (principal); S00.83XA Contusion of other part of head, initial encounter; W19.XXXA Unspecified fall, initial encounter; Y93.01 Activity, walking, marching and hiking; Y92.9 Unspecified place or not applicable; Z79.01 Long term (current) use of anticoagulants; Z79.82 Long term (current) use of aspirin; Z79.4 Long term (current) use of insulin; Z88.2 Allergy status to sulfonamides; Z99.2 Dependence on renal dialysis; I12.0 Hypertensive chronic kidney disease with stage 5 chronic kidney disease or end stage renal disease; E11.22 Type 2 diabetes mellitus with diabetic chronic kidney disease; N18.6 End stage renal disease; E78.00 Pure hypercholesterolemia, unspecified
CPT/HCPCS: 36415; 70450; 80053; 85025; 96374; 96375; 99284; J2270; J2405; J2550

== ENCOUNTER 2018-10-15 23:40 | Observation (INO) | payer BC, OTHER ==
--- OUTSIDE RECORDS SUMMARY | 2018-10-16 00:06 | XMS REPORT | Clinical Summary ---
:1965 Author Organization [facility] Address [address] [place] [address] Care Team Providers Name Role Phone Garo [...] Hypertension 02/24/2017 Intractable vomiting with nausea 02/24/2017 [id number] kidney injury 02/24/2017 Diabetes mellitus 02/15/2017 Encounters Date Type Specialty Care Team Description 05/25/2018 Anesthesia Event Plastic Surgery Raz Brown 05/25/2018 Surgery Plastic Surgery Daquan Mary AND ARIS Arrington MD INDICATED PROCEDURES, RIGHT EYE 05/25/2018 Hospital Encounter Plastic Surgery Daquan Mary MD after 10/14/2017 Immunizations Name Dates Previously Given Next Due [...] Taken Blood Pressure 136/61 05/25/2018 2:05 PM DOCTOR OF DENTAL MEDICINE Pulse 58 05/25/2018 2:05 PM DOCTOR OF DENTAL MEDICINE Temperature 37.2 C (98.9 F) 05/25/2018 2:05 PM DOCTOR OF DENTAL MEDICINE Respiratory Rate 12 05/25/2018 2:05 PM DOCTOR OF DENTAL MEDICINE Oxygen Saturation 96% 05/25/2018 2:05 PM DOCTOR OF DENTAL MEDICINE Inhaled Oxygen Concentration - - Weight 97.2 kg (214 lb 3 oz) 05/25/2018 11:43 AM DOCTOR OF DENTAL MEDICINE Height 190.5 cm (6' 3") 05/25/2018 11:43 AM DOCTOR OF DENTAL MEDICINE Body Mass Index 26.77 05/25/2018 11:43 AM DOCTOR OF DENTAL MEDICINE Plan of Treatment Health Maintenance Due Date Last Done Comments DIABETIC RETINAL EYE EXAM 1965 DIABETIC FOOT EXAM 1974 COLON CANCER SCREENING 2014 SHINGLES VACCINES (#1) 2014 INFLUENZA VACCINE 01/11/2019 02/11/2017 Procedures Procedure Name Priority Date/Time Associated Diagnosis Comments VITRECTOMY 05/25/2018 1:00 PM DOCTOR OF DENTAL MEDICINE Vitreous hemorrhage of right eye (HCC) Special Needs REQ 1300 START POC PANEL 4 Routine 05/25/2018 12:09 PM DOCTOR OF DENTAL MEDICINE after 10/14/2017 Results POC panel 4 (05/25/2018 12:09 PM DOCTOR OF DENTAL MEDICINE) POC sodium 137 135 - 148 mmol/L [facility] POC potassium 4.3 3.5 - 5.0 mmol/L [facility] POC hematocrit 34 (L) 41 - 51 % [facility] Comment: Meter ID: [id number] Dent Remover: Abisai Girard POC glucose 107 (H) 65 - 99 mg/dL [facility] Performing Organization Address City/State/Zipcode Phone Number [facility] DEPARTMENT OF PATHOLOGY AND [address] [place] [address] GENOMIC MEDICINE [facility] [address] [place] [address] after 10/14/2017 Insurance Payer Benefit Plan / Group Subscriber ID Type Phone Address BC AVNI CARCAMO xxxxxxxxxxxx PPO MEDICARE MEDICARE PART A AND B xxxxxxxxxx Medicare [place], [place] Advance Directives Patient has advance care planning documents on file. For more information, please contact:Naren Castro[address] [place] [address]
--- OUTSIDE RECORDS SUMMARY | 2018-10-16 00:07 | XMS REPORT | Clinical Summary ---
:1965 Author Organization [facility] Address [address] [place] [address] Care Team Providers Name Role Phone Bala [...] Not on file Implants Implanted Type Area Lead Electrical Engineer Device Shelf Model / Identifier Expiration Serial / Lot Date Cath Peritoneal Dyls 57cm 2cuf [id number] - Sn/A Catheter N/A: COVIDIEN: SHAZIA 02/17/2021 [id number] / Implanted: Qty: 1 on 06/14/2017 by Abdiel Ivory MD Dialysis Abdomen L N/A / Residential [id number] Results Not on fileafter 10/14/2017 Insurance Payer Benefit Plan / Subscriber ID Type Phone Address Group BLUE CROSS/BLUE BCBS OS xxxxxxxxxxxx PPO [phone] [address] SHIELD POS/[place] [address] MEDICARE MEDICARE A B xxxxxxxxxx Medicare Advance Directives For more information, please contact:[address] [phone] Code Status Date Activated Date Inactivated Comments Full Code 06/08/2017 11:37 PM 06/15/2017 8:31 PM This code status was determined by: Patient
--- OUTSIDE RECORDS SUMMARY | 2018-10-16 00:08 | XMS REPORT | Continuity of Care Document ---
:1965 Author Organization Interface Problems Problem Status Onset Classification Date Comments Source Date Reported HTN, ESRD ON Active 06/18/19 [facility] DIALYSIS, EDEMA OF 19 UPPER EX ARM SWELLING Active 06/18/19 [facility] 19 UNK Active 05/25/20 [facility] 18 Hypertensive 05/11/20 09/17/2018 [facility] chronic kidney 18 disease with stage 5 chronic kidney disease or end stage renal disease TESIO RELOCATION Active 04/04/20 [facility] 18 Gastroparesis Active 05/30/20 Finding 06/05/2017 [...] [facility] Intractable nausea Active 02/25/20 Finding 06/05/[address] [address] [facility] [id number] Active 02/25/20 Finding 06/05/[address] [facility] [address] kidney injury [facility] HTN Active 02/25/20 Finding 06/05/[address] [facility] Obesity Active 02/25/20 Finding 06/05/[address] [facility] Diabetes mellitus Active 02/16/20 Finding 06/05/[address] [facility] Chest pain Active 08/28/19 Finding 06/05/[address] 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 Dependence on 09/17/2018 [facility] renal dialysis powder guard use of 09/17/2018 [facility] aspirin [facility] use of 09/17/2018 [facility] insulin powder guard use of 09/17/2018 [facility] antithrombotics/an tiplatelets IDDM (<span Active Problem 09/17/2018 [facility] ID="[id number]"> Confirmed</span>) ESRD (<span Active Problem 09/17/2018 [facility] ID="[id number]"> Confirmed</span>) Heart disease Resolved Problem 09/17/2018 [facility] Hyperlipidemia Active Problem 09/17/2018 [facility] HTN (<span Active Problem 09/17/2018 [facility] ID="[id number]"> Confirmed</span>) Hyperglycemia Active Finding 06/05/2017 [facility] Uncontrolled Active Finding 06/05/2017 [facility] [address] diabetes mellitus [facility] Renal Active Finding 06/05/2017 [facility] [address] insufficiency [facility] ESSENTIAL Active [facility] (PRIMARY) HYPERTENSION END STAGE RENAL Active [facility] DISEASE LOCALIZED EDEMA Active [facility] Medications Medication Details Route Status Patient Ordering Order Source Instructions Provider Date Oxycodone 2 tab, Route: Inactive 02/28/ Hydrochloride 5 PO, POST OP, 2017 [facility] MG Oral Tablet Dosing Weight 93.722, kg, Start date: 02/28/18 17:00:00 CDT, Duration: 30 day, Stop date: 03/30/18 16:59:00 CDT Acetaminophen 325 1 tab, Route: Inactive MG / Hydrocodone PO, Dosing 2017 [facility] Bitartrate 10 MG Weight 93.722, Oral Tablet kg, Q4H, PRN Pain Score 4-6, Start date: 02/28/18 15:58:00 CDT, Duration: 30 day, Stop date: 03/30/18 15:57:00 CDT Acetaminophen 325 1 tab, Route: Inactive MH MG / Hydrocodone PO, Dosing 2018 [facility] Bitartrate 5 MG Weight 93.722, Oral Tablet kg, Q4H, PRN Pain Score 4-6, Start date: 02/28/18 15:58:00 CDT, Duration: 30 day, Stop date: 03/30/18 15:57:00 CDT Hydromorphone 0.5 mg, Route: Inactive IVP, Q5Min, 2017 [facility] Dosing Weight 93.722, kg, PRN Pain Score 7-10, Start date: 02/28/18 15:57:00 CDT, Duration: 4 doses or times, Stop date: Limited # of times Ondansetron 4 mg, Route: Inactive IVP, ONCE, 2017 [facility] Dosing Weight 93.722, kg, PRN Nausea & Vomiting, Start date: 02/28/18 15:57:00 CDT Naloxone 0.4 mg, Route: Inactive IVP, Q2MIN, 2017 [facility] Dosing Weight 93.722, kg, PRN Narcotic Reversal, Start date: 02/28/18 15:57:00 CDT, Duration: 8 doses or times, Stop date: Limited # of times Flumazenil 0.2 mg, Route: Inactive IVP, PRN, 2017 [facility] Dosing Weight 93.722, kg, PRN Benzodiazepine Reversal, Initial dose, Start date: 02/28/18 15:57:00 CDT, Duration: 30 day, Stop date: 03/30/18 15:56:00 CDT midazolam (ANES) Route: IV, Inactive Drug form: 2017 [facility] SOLN, ONCE, Stop date: 02/28/18 15:25:00 CDT propofol (ANES) Route: IV, Inactive Drug form: 2017 [facility] INJ, ONCE, Stop date: 02/28/18 14:52:00 CDT ceFAZolin (ANES) Route: IV, Inactive Drug form: 2017 [facility] INJ, ONCE, Stop date: 02/28/18 14:52:00 CDT lidocaine (ANES) Route: IV, Inactive Drug form: 2017 [facility] INJ, ONCE, Stop date: 02/28/18 14:52:00 CDT fentaNYL (ANES) Route: IV, Inactive Drug form: 2017 [facility] INJ, ONCE, Stop date: 02/28/18 14:52:00 CDT famotidine (ANES) Route: IV, Inactive Drug form: 2017 [facility] INJ, ONCE, Stop date: 02/28/18 14:47:00 CDT metoclopramide Route: IV, Inactive (ANES) Drug form: 2017 [facility] INJ, ONCE, Stop date: 02/28/18 14:47:00 CDT Sodium Chloride Route: IV, Inactive 0.9% IV (ANES) Total Volume: 2017 [facility] 500 mL 500, Start date: 02/28/18 13:50:00 CDT, Stop date: 02/28/18 14:50:00 CDT Reglan 10 mg, Route: Inactive IVP, Drug 2017 [facility] form: INJ, ONCE, Dosing Weight 93.722, kg, Start date: 02/28/18 12:55:00 CDT, Stop date: 02/28/18 12:55:00 CDT Zofran ODT 4 mg, Route: Inactive PO, Drug form: 2017 [facility] TABDIS, ONCE, Dosing Weight 93.722, kg, Start date: 02/28/18 12:29:00 CDT, Stop date: 02/28/18 12:29:00 CDT Calcium Chloride 1,000 mL, Inactive 0.0014 MEQ/ML / Rate: 25 2017 [facility] Potassium ml/hr, Infuse Chloride 0.004 over: 40 hr, MEQ/ML / Sodium Route: IV, Chloride 0.103 Dosing Weight MEQ/ML / Sodium 93.722 kg, Lactate 0.028 Total Volume: MEQ/ML Injectable 1,000, Start Solution date: 02/28/18 10:48:00 CDT, Duration: 30 day, Stop date: 03/30/18 10:47:00 CDT, 2.23, m2 Sodium Chloride 500 mL, Rate: Inactive 0.9% IV 500 mL 25 ml/hr, 2017 [facility] Infuse over: 20 hr, Route: IV, Dosing Weight 93.722 kg, Total Volume: 500, Start date: 02/28/18 10:30:00 CDT, Duration: 1 doses or times, Stop date: 03/01/18 6:29:00 CDT, 2.23, m2 Acetaminophen 1,000 mg, Inactive Route: PO, 2017 [facility] Drug form: TAB, ONCE, Dosing Weight 93.722, kg, PRN Pain Score 1-3, Start date: 02/28/18 10:24:00 CDT Hydralazine 10 mg, Route: Inactive IVP, Q20Min, 2017 [facility] Dosing Weight 93.722, kg, PRN Elevated BP, Start date: 02/28/18 10:24:00 CDT, Duration: 2 doses or times, Stop date: Limited # of times esmolol 10 mg, Route: Inactive IVP, Q5Min, 2017 [facility] Dosing Weight 93.722, kg, PRN Other -See Comment, Start date: 02/28/18 10:24:00 CDT, Duration: 5 doses or times, Stop date: Limited # of times Labetalol 10 mg, Route: Inactive IVP, Q5Min, 2017 [facility] Dosing Weight 93.722, kg, PRN Elevated BP, Start date: 02/28/18 10:24:00 CDT, Duration: 5 doses or times, Stop date: Limited # of times Oxycodone 10 mg, Route: Inactive PO, Drug form: 2017 [facility] TAB, Q4H, Dosing Weight 93.722, kg, PRN Pain Score 7-10, Start date: 02/28/18 10:24:00 CDT, Duration: 30 day, Stop date: 03/30/18 10:23:00 CDT Fentanyl 25 microgram, Inactive Route: IVP, 2017 [facility] Q5Min, Dosing Weight 93.722, kg, PRN Pain Score 4-6, Priority: Routine, Start date: 02/28/18 10:24:00 CDT, Duration: 4 doses or times, Stop date: Limited # of times Diphenhydramine 12.5 mg, Inactive Route: IVP, 2017 [facility] Drug form: INJ, Q6H, Dosing Weight 93.722, kg, PRN Itching, Start date: 02/28/18 10:24:00 CDT, Duration: 30 day, Stop date: 03/30/18 10:23:00 CDT Albuterol 0.83 2.49 mg, Inactive MG/ML Inhalant Route: NEB, 2018 [facility] Solution Q20Min, Dosing Weight 93.722, kg, PRN Wheezing, Priority: STAT, Start date: 02/28/18 10:24:00 CDT, Duration: 30 day, Stop date: 03/30/18 10:23:00 CDT Flumazenil 0.2 mg, Route: Inactive IVP, PRN, 2017 [facility] Dosing Weight 93.722, kg, PRN Benzodiazepine Reversal, Initial dose, Start date: 02/28/18 10:24:00 CDT, Duration: 30 day, Stop date: 03/30/18 10:23:00 CDT Naloxone 0.4 mg, Route: Inactive IVP, Q2MIN, 2017 [facility] Dosing Weight 93.722, kg, PRN Narcotic Reversal, Start date: 02/28/18 10:24:00 CDT, Duration: 8 doses or times, Stop date: Limited # of times Ondansetron 4 mg, Route: Inactive IVP, ONCE, 2017 [facility] Dosing Weight 93.722, kg, PRN Nausea & Vomiting, Start date: 02/28/18 10:24:00 CDT Meperidine 12.5 mg, Inactive Route: IVP, 2017 [facility] Q30Min, Dosing Weight 93.722, kg, PRN Other -See Comment, For shivering, Start date: 02/28/18 10:24:00 CDT, Duration: 2 doses or times, Stop date: Limited # of times Docusate Sodium 200 mg=2 cap, Active 100 MG Oral PO, BID, # 60 2018 [facility] Capsule [Colace] cap, 0 Refill(s) Hydralazine 3 tabs, PO, Active Hydrochloride 25 BID, # 90 tab, 2018 [facility] Oral Tablet 3 Refill(s) metoprolol 100 mg=1 tab, Active tartrate 100 mg PO, BID, # 60 2018 [facility] oral tablet tab, 0 Refill(s) 12 HR ranolazine 1,000 mg=1 Active 1000 MG Extended tab, PO, 2017 Release Tablet Daily, # 30 [Ranexa] tab, 0 Refill(s) atorvastatin 80 80 mg=1 tab, Active mg oral tablet PO, Daily, # 2017 30 tab, 0 Refill(s) clopidogrel 75 mg 75 mg=1 tab, Active oral tablet PO, Daily, # 2017 30 tab, 0 Refill(s) sertraline 50 mg 50 mg=1 tab, No Longer oral tablet PO, Daily, # Active 2017 30 tab, 0 Refill(s) Furosemide 40 MG 40 mg=1 tab, Active Oral Tablet PO, BID, 0 2017 Refill(s) amLODIPine 10 mg 10 mg=1 tab, Active oral tablet PO, Daily, # 2017 30 tab, 0 Refill(s) Lactulose 667 20 gm=30 mL, Active MG/ML Oral PO, Daily, PRN 2017 [facility] Solution constipation, # 240 mL, 0 Refill(s) Promethazine 25 mg=1 tab, Active Hydrochloride 25 PO, Q8H, PRN 2017 [facility] Oral Tablet Nausea/Vomitin g, # 30 tab, 0 Refill(s) Ondansetron 4 MG 4 mg=1 tab, No Longer Oral Tablet PO, Q6H, PRN 2017 [Zofran] Nausea/Vomitin g, # 30 tab, 0 Refill(s) zolpidem 5 mg 5 mg=1 tab, Active oral tablet PO, Bedtime, 0 2017 Refill(s) Nitroglycerin 0.4 0.4 mg=1 tab, Active MG Sublingual SL, Q5Min, PRN 2017 [facility] Tablet Chest Pain, # [Nitrostat] 100 tab, 0 Refill(s) Vancomycin 1 gm, Route: No Longer IVPB, Drug Active 2017 [facility] form: INJ, PRE OP, Dosing Weight 93.722, kg, Start date: 02/21/18 16:00:00 CDT, Duration: 1 day, Stop date: 02/22/18 15:59:00 CDT, ABX Indication: Surgical ProphylaxisNot es: TIME CRITICAL MEDICATION (Same As: Vancocin) Infusion rate 2001 mg: infuse over 2.5 hours For adult patients only: Round to nearest 250 mg per Medical Staff approval MEDICATION WASTE Product Size: 1000 mg Product Wasted: ___ mg Ancef + sterile 2 gm, Route: No Longer water 20 mL IV, PRE OP, Active 2017 [facility] Dosing Weight 93.722, kg, Start date: 02/21/18 16:00:00 CDT, Duration: 1 day, Stop date: 02/22/18 15:59:00 CDT, ABX Indication: Surgical ProphylaxisNot es: (Same As: Ancef, Kefzol) MEDICATION WASTE Product Size: 1000 mg Product Wasted: ___ mg travoprost 0.04 1 drp, OPTH, Active MG/ML Ophthalmic Bedtime, # 2.5 2017 [facility] Solution ml, 0 [Travatan] Refill(s) Humalog SUB-Q, 0 Active Refill(s) 2017 [facility] sevelamer 800 mg 1,600 mg=2 Active oral tablet tab, PO, 2017 [facility] TID-Meals, # 180 tab, 0 Refill(s) Famotidine 40 mg, PO, Active Bedtime, # 60 2017 [facility] tab, 0 Refill(s) Vitamin D2 50,000 50,000 No Longer intl units oral IntlUnit=1 Active 2017 [facility] capsule cap, PO, qWeek, 0 Refill(s) Aspirin 325 mg, PO, Active Bedtime, 0 2017 [facility] Refill(s) Metoclopramide 5 5 mg=1 tab, Active MG Oral Tablet PO, BID, 0 2017 [facility] Refill(s) Metoclopramide THREE TIMES A Active Nunez 06/05/ [facility] Ondansetron Hcl Q6H PRN For Active [facility]z 06/05/ [facility] Vomiting [facility] Furosemide TWICE DAILY Active [facility]z 06/05/ [facility] Zolpidem Tartrate AT BEDTIME Active Alroum[facility] Aspirin DAILY Active [facility] [place] Nitroglycerin DAILY Active [facility] St[facility] NEEDED PRN For 2017 [facility] [place] Promethazine Hcl EVERY [address] NEEDED PRN 2017 [facility] Nausea [place] Pantoprazole DAILY Active [facility] St[facility] [place] Ranolazine TWICE DAILY Active [facility] [place] Insulin Lispro DAILY Active [facility] St[facility] [place] Furosemide TWICE DAILY Active Prezas [facility] St. [facility] [place] Hydralazine TWICE DAILY Active [facility] St. 2017 [facility] Furosemide TWICE DAILY AT Active [facility] St. 9am & 5pm 2017 [facility] Atorvastatin DAILY Active [facility] St. Calcium 2017 [facility] [place] Metoprolol TWICE DAILY Active St[facility] Tartrate 2017 [facility] [place] Nitroglycerin DAILY Active St[facility] Patch NEEDED PRN For 2017 [facility] [place] Amlodipine DAILY Active [facility] [place] Clopidogrel DAILY Active [facility] Bisulfate [facility] [place] Furosemide TWICE DAILY Active [facility] [place] Hydralazine THREE TIMES A Active [facility] DAY [facility] [place] Pantoprazole DAILY Active [facility] Sodium [facility] [place] Metoprolol TWICE DAILY Active [facility] Tartrate [facility] [place] Clopidogrel DAILY Active [facility] Bisulfate [facility] [place] Atorvastatin AT BEDTIME Active Div[facility] St. Calcium 2017 [facility] [place] Amlodipine DAILY Active [facility] [place] Clopidogrel DAILY Active [facility] Bisulfate [facility] [place] Metoprolol TWICE DAILY Active Divins [facility] Tartrate 2017 [facility] [place] Sertraline DAILY Active [facility] [place] Tramadol Hcl EVERY [address] PRN For Pain 2017 [facility] [place] Ranolazine DAILY Active [facility] [place] Sub-Q Insulin DAILY Active St. Device, 40 Unit 2017 [facility] [place] Cefdinir TWICE DAILY Active [facility] [place] Methylprednisolon DAILY Active [facility] [place] Guaifen W/Codeine TWICE DAILY Active [facility] Syrup PRN For Cough 2016 [facility] [place] Amlodipine DAILY Active St[facility] Besylate 2016 [facility] [place] Clopidogrel DAILY Active St[facility] Bisulfate 2016 [facility] [place] Fenofibrate DAILY Active St[facility] [place] Insulin Aspart THREE TIMES Active St[facility] DAILY 2016 [facility] NEEDED PRN For [place] hyperglycemia Liraglutide DAILY Active [facility] 2016 [facility] [place] Ranolazine DAILY Active [facility] [place] Insulin Detemir AT BEDTIME Active [facility] [place] Metoprolol DAILY Active St[facility] Tartrate 2016 [facility] [place] Aspirin Tab DAILY Active [facility] [place] Metoprolol EVERY TWELVE Active Preza St[facility] Tartrate HOURS 2014 [facility] [place] Insulin Detemir AT BEDTIME Active Pre [facility] 2014 [facility] [place] Insulin Detemir AT BEDTIME Active [facility] [place] Atorvastatin DAILY Active St[facility] Calcium 2014 [facility] [place] Insulin Detemir AT BEDTIME Active [facility] St[facility] 2014 [facility] [place] Lisinopril DAILY Active 02/02/ [facility] [place] Saxagliptin DAILY Active 02/02/ [facility] Hcl/Metformin Hcl 2013 [facility] [place] Allergies, Adverse Reactions, Alerts Substance Category Reaction Severity Reaction Status Date Comments Source type Reported Sulfa Hives/Aiden Allergy to Active [facility] (Sulfonamid h Substance [facility] [place] Antibiotics ) sulfa drugs Assertion Drug Active allergy [facility] Immunizations Immunization Date Given Site Status Last Comments Source Updated Pneumovax 02/18/[address] [facility] Results Order Name Results Value Reference Date Interpretation Comments Source Range Chest Chest 1view Patient Name: ELIZABETH DARBY 06/19 - 1view DX DX /2018 - [facility] : 1965; Age: 53 years y/o Male MR: [id number] Read by: Bill Pineda MD Dictated Date/time: [...] within the left lung. No pneumothorax. SL: [id number] Ext Upper Ext Upper CLINICAL INDICATION: - redness, swelling, tenderness. AV fistula to right upper arm 06/18 - Venous Venous /2018 - [facility] Doppler Doppler Unilat US Unilat US COMPARISON: [...] v Patient Name: ELIZABETH DARBY : 1965 - for for - [place] Placement Placement DX Age: 52 years, Male MR: [id number] DX Study: Chest 1 v for Placement DX 04/20/2018 2:08 PM JOB COACH Read by: Ezequiel Marquez MD Dictated Date/time: [...] spine. IMPRESSION: Small right pleural effusion. SL: [id number] BLOOD BANK Antibody Negative 02/21 RESULTS Scr [facility] (02/21/18 3:47 PM) BLOOD BANK ABO/Rh A POS 02/21 RESULTS [facility] CHEM PANEL eGFR 8 02/21 Result Comment: The eGFR is calculated using the CKD-EPI formula. In most young, healthy individuals the eGFR will be >90 mL/ min/1.73m2. The eGFR declines with age. An eGFR of 60-89 may be normal in mL/min/1. some populations, particularly the elderly, for whom the CKD-EPI formula has not been extensively validated. Use of the eGFR is not recommended in the following populations: [facility] 3m2 Individuals with unstable creatinine concentrations, including patients and those with serious co-morbid conditions. Patients with extremes in muscle mass or diet. The data above are obtained from the National Kidney Disease Education Program (NKDEP) which additionally recommends that when the eGFR is used in patients with extremes of body mass index for purposes of drug dosing, the eGFR should be multiplied by the estimated BMI. CHEM PANEL Chloride Lvl 105 meq/L 95 - 109 02/21 [facility] CHEM PANEL CO2 26 meq/L 24 - 32 02/21 [facility] CHEM PANEL Calcium Lvl 8.5 mg/dL 8.5 - 10.5 02/21 [facility] CHEM PANEL Glucose Lvl 127 mg/dL 70 - 99 02/21 [facility] CHEM PANEL BUN 46 mg/dL 7 - 22 02/21 [facility] CHEM PANEL Sodium Lvl 143 meq/L 135 - 145 02/21 [facility] CHEM PANEL Potassium 4.2 meq/L 3.5 - 5.1 02/21 Lvl [facility] CHEM PANEL Creatinine 7.17 mg/dL 0.50 - 02/21 Lvl 1.40 [facility] CHEM PANEL AGAP 16.2 meq/L 10.0 - 02/21 MH 20.0 [facility] HEMATOLOGY Platelet 206 K/CMM 133 - 450 02/21 [facility] HEMATOLOGY MPV 7.3 fL 7.4 - 10.4 02/21 [facility] HEMATOLOGY MCV 92.7 fL 80.0 - 02/21 MH 94.0 [facility] HEMATOLOGY RBC 3.54 M/CMM 4.70 - 02/21 MH 6.10 [facility] HEMATOLOGY MCHC 33.7 g/dL 32.0 - 02/21 MH 36.0 [facility] HEMATOLOGY Hct 32.8 % 42.0 - 02/21 MH 54.0 [facility] HEMATOLOGY Hgb 11.1 g/dL 14.0 - 02/21 MH 18.0 [facility] MCH 31.2 pg 27.0 - 02/21 MH 31.0 [facility] HEMATOLOGY RDW 15.7 % 11.5 - 02/21 MH 14.5 [facility] WBC 6.8 K/CMM 3.7 - 10.4 02/21 [facility] HEMATOLOGY INR 0.89 0.85 - 02/21 1.17 [facility] HEMATOLOGY PT 12.0 s 12.0 - 02/21 MH 14.7 [facility] HEMATOLOGY PTT 31.9 s 22.9 - 02/21 MH 35.8 [facility] HEMATOLOGY Eosinophils 7.2 % 0.0 - 4.0 / MH /2017 [facility] HEMATOLOGY Segs 60.5 % 45.0 - 09 75.0 [facility] HEMATOLOGY Lymphocytes 18.3 % 20.0 - 02/21 40.0 [facility] HEMATOLOGY Monocytes 12.9 % 2.0 - 12.0 02/21 /2017 [facility] HEMATOLOGY Eosinophils 0.5 K/CMM 0.0 - 0.5 02/21 # /2018 [facility] HEMATOLOGY Lymphocytes 1.2 K/CMM 1.0 - 5.5 02/21 # /2018 [facility] HEMATOLOGY Monocytes # 0.9 K/CMM 0.0 - 0.8 02/21 [facility] HEMATOLOGY Basophils 1.1 % 0.0 - 1.0 02/21 [facility] HEMATOLOGY Neutrophils 4.1 K/CMM 1.5 - 8.1 02/21 # /2017 [facility] HEMATOLOGY Basophils # 0.1 K/CMM 0.0 - 0.2 02/21 /2017 [facility] SPECIAL Hgb A1C 5.5 % <=5.6 % 02/21 CHEMISTRY [facility] Chest 2 Chest 2 EXAM: XR CHEST 2 VIEWS 02/21 - views DX views DX /2017 - [facility] DATE: 02/21/2018 3:45 PM CDT : 1965; [...] normal. IMPRESSION: No acute cardiopulmonary process. SL: [id number] Laboratory Sodium Level 138 mEq/L 135 - 145 06/05 [facility] [address] Studies /2016 [facility] [place] Laboratory Potassium 5.1 mEq/L 3.6 - 5.0 06/05 [facility] [address] Studies Level /2016 [facility] [place] Laboratory Phosphorus 7.4 mg/dL 2.5 - 4.3 06/05 [facility] [address] Studies Level /2016 [facility] [place] Laboratory Glucose 167 mg/dL 65 - 120 06/05 [facility] [address] Studies Level /2016 [facility] [place] Laboratory Estimat 10 mL/min 90 06/05 [facility] [address] Studies Glomerular /2016 [facility] [place] Rate Laboratory Creatinine 6.17 mg/dL 0.61 - 06/05 [facility] Studies 1.24 [facility] [place] [facility] Chloride 104 mEq/L 101 - 111 06/05 [facility] St[facility] Studies Level /2016 [facility] [place] Laboratory Carbon 23 mEq/L 21 - 31 06/05 [facility] [address] Studies Dioxide /2016 [facility] [place] Laboratory Calcium 9.1 mg/dL 8.5 - 10.5 06/05 [facility] [address] Studies Level /2016 [facility] [place] Laboratory Blood Urea 87 mg/dL 6 - 20 06/05 [facility] [address] Studies Nitrogen /2016 [facility] [place] Laboratory Albumin 3.4 g/dL 3.2 - 5.5 06/05 [facility] [address] Studies /2016 [facility] [place] Laboratory Bedside 155 mg/dl 65 - 120 06/[facility] [facility] Glucose [facility] [place] [facility] Urine Urine 06/01 [facility]. Studies Immunoelectr Immunoelec [facility] - ophoresis 24 trophoresi [place] Hr s 24 Hr Laboratory Anti-Double 2 IU/mL 06/01 [facility] St. Studies Strand DNA [facility] Antibody [place] [facility] Anti-Protein null 06/01 [facility] [address]. Studies ase 3 [facility] - (c-ANCA) [place] [facility] Anti-Myelope null 06/01 [facility] [address]. Studies roxidase Ab [facility] - (p-ANCA) [place] [facility] Complement 31 mg/dL 06/01 [facility] [address]. Studies C4 [facility] [place] [facility] Complement 127 mg/dL 06/01 [facility] Studies C3 [facility] [place] [facility] Thyroid 2.92 0.34 - 06/01 [facility] St. Studies Stimulating uIU/mL 5.60 [facility] Hormone [place] (TSH) Laboratory Anti-Nuclear Anti-Nucle 05/30 [facility] St. Studies Antibody ar /2016 [facility] Titer Antibody [place] Titer Laboratory Anti-Nuclear Anti-Nucle 05/30 [facility] St. Studies Antibody ar /2016 [facility] Pattern Antibody [place] Pattern Laboratory Anti-Nuclear Anti-Nucle 05/30 [facility] St. Studies Antibody ar /2016 [facility] Screen Antibody [place] Screen Laboratory Anti-Nuclear Anti-Nucle 05/30 [facility] St. Studies Antibody ar /2016 [facility] Pattern 2 Antibody [place] Pattern 2 Laboratory Hepatitis C Hepatitis 05/30 [facility] St. Studies Antibody C Antibody /2016 [facility] [place] [facility] Hepatitis C 0.03 ratio 05/30 [facility] St. Studies Ab /2016 [facility] Signal/Cutof [place] f Ratio Laboratory Hepatitis B Hepatitis 05/30 [facility] St. Studies Surface B Surface /2016 [facility] Antigen Antigen [place] [facility] Hepatitis B Hepatitis 05/30 [facility] St. Studies Surface Ag B Surface /2016 [facility] Confirmation Ag [place] Confirmati on Laboratory Hepatitis B Hepatitis 05/30 [facility] St. Studies Core IgM B Core IgM /2016 [facility] - Antibody Antibody [place] [facility] Hepatitis A Hepatitis 05/30 [facility] St. Studies IgM Antibody A IgM /2016 [facility] Antibody [place] [facility] HIV-1 RNA, HIV-1 RNA, 05/30 [facility] St. Studies Qualitat Qualitat /2016 [facility] - (TMA) (TMA) [place] Comment Comment Laboratory HIV (1&2) Ag HIV (1&2) 05/30 [facility]. Studies and Ab, 4th Ag and Ab, /2016 [facility] - Generation 4th [place] Generation Laboratory HIV (1&2) Ab HIV (1&2) 05/30 [facility] St. Studies Differential Ab /2016 [facility] - Comment Differenti [place] al Comment Laboratory Creatine 162 IU/L 22 - 269 05/30 [facility] St. Studies Kinase /2016 [facility] [place] [facility] Vitamin B12 173 pg/ml 180 - 914 05/30 [facility] St. Studies Level /2016 [facility] [place] [facility] Total 0.4 mg/dL 0.3 - 1.2 05/30 [facility] St. Studies Bilirubin /2016 [facility] [place] [facility] Serum Total 6.5 g/dL 6.0 - 8.3 05/30 [facility] St. Studies Protein /2016 [facility] [place] [facility] Globulin 3.1 g/dL 2.3 - 3.5 05/30 [facility] St. Studies /2016 [facility] [place] [facility] Ferritin 337.4 23.9 - 05/30 [facility] St. Studies ng/ml 336.2 [facility] [place] [facility] Aspartate 12 IU/L 10 - 42 05/30 [facility] St. Studies Amino Transf /2016 [facility] - (AST/SGOT) [place] [facility] Alkaline 54 IU/L 42 - 121 05/30 [facility]. Studies Phosphatase /2016 [facility] [place] [facility] Albumin/Glob 1.1 1.1 - 1.8 05/30 [facility]. Studies ulin Ratio /2016 [facility] [place] [facility] Alanine 10 IU/L 10 - 60 05/30 [facility]. Studies Aminotransfe /2016 [facility] - rase [place] (ALT/SGPT) Laboratory White Blood 7.9 K/uL 4.3 - 10.9 05/30 [facility]. Studies Count /2016 [facility] [place] [facility] Red Cell 15.2 % 12.1 - 05/30 [facility]. Studies Distribution 15.2 [facility] - Width [place] Laboratory Red Blood 2.75 M/uL 4.33 - 05/30 [facility]. Studies Count 5.43 [facility] [place] [facility] Platelet 314 K/uL 152 - 406 05/30 [facility]. Studies Count /2016 [facility] [place] [facility] Neutrophils 56.6 % 41.7 - 05/30 [facility] St. Studies % 73.7 /2016 [facility] [place] [facility] Monocytes % 12.0 % 3.3 - 12.3 05/30 [facility]. Studies /2016 [facility] [place] [facility] Mean 7.1 fL 7.6 - 11.3 05/30 [facility]. Studies Platelet /2016 [facility] Volume [place] [facility] Mean 85.4 fL 80 - 100 05/30 [facility]. Studies Corpuscular /2016 [facility] Volume [place] [facility] Mean 34.1 g/dL 32.0 - 05/30 [facility]. Studies Corpuscular 36.0 /2016 [facility] Hemoglobin [place] Concent Laboratory Mean 29.1 pg 27.0 - 05/30 [facility]. Studies Corpuscular 35.0 /2016 [facility] Hemoglobin [place] Laboratory Lymphocytes 25.1 % 15.3 - 05/30 [facility] St. Studies % 44.8 /2017 [facility] [place] [facility] Hemoglobin 8.0 g/dL 13.6 - 05/30 [facility] St. Studies 17.9 /2016 [facility] [place] [facility] Hematocrit 23.5 % 39.6 - 05/30 [facility] St. Studies 49.0 [facility] [place] [facility] Eosinophils 5.7 % 0 - 4.4 05/30 [facility] St. Studies % /2016 [facility] [place] [facility] Basophils % 0.6 % 0 - 1.3 05/30 St. Studies /2016 [facility] [place] [facility] Absolute 4.5 K/uL 1.8 - 8.0 05/30 [facility] St. Studies Neutrophil [facility] [place] [facility] Absolute 0.9 K/uL 0.1 - 1.3 05/30 [facility] St. Studies Monocytes [facility] (CBC) [place] [facility] Absolute 2.0 K/uL 0.7 - 4.9 05/30 [facility] St. Studies Lymphocytes [facility] - (CBC) [place] [facility] Absolute 0.4 K/uL 0 - 0.5 05/30 [facility] St. Studies Eosinophils [facility] - (CBC) [place] Laboratory Absolute 0.0 K/uL 0 - 0.5 05/30 [facility] St. Studies Basophils [facility] (CBC) [place] Laboratory Urine WBC null 05/29 [facility] St. Studies [facility] [place] [facility] Urine null 05/29 [facility] St. Studies Squamous [facility] Epithelial [place] Cells Laboratory Urine RBC Urine RBC 05/29 St[facility] Studies [facility] [place] [facility] Urine Urine 05/29 [facility] St. Studies Culture Culture [facility] - Reflexed Reflexed [place] [facility] Urine null 05/29 [facility] St. Studies Bacteria [facility] [place] [facility] Urine Urine 05/29 [facility] St. Studies Amorphous Amorphous [facility] - Sediment Sediment [place] [facility] Direct null 0 - 0.2 05/29 [facility] St. Studies Bilirubin [facility] [place] [facility] Amylase 70 U/L 28 - 100 05/29 [facility] St. Studies Level /2016 [facility] [place] [facility] Lipase 95 U/L 22 - 51 05/29 [facility] St. Studies /2016 [facility] [place] [facility] Hemoglobin 7.3 % 4 - 6.0 05/11 [facility] St. Studies A1c [facility] [place] [facility] Triglyceride 118 mg/dL 35 - 160 05/11 [facility] [address] Studies s Level [facility] [place] [facility] Magnesium 2.2 mg/dL 1.8 - 2.5 05/11 [facility]. Studies Level /2016 [facility] [place] [facility] LDL 81 05/11 [facility]. Studies Cholesterol, /2016 [facility] Calculated [place] [facility] HDL 26 mg/dL 27 - 67 05/11 [facility]. Studies Cholesterol /2016 [facility] [place] [facility] Cholesterol/ 5.04 05/11 [facility]. Studies HDL Ratio /2016 [facility] [place] [facility] Cholesterol 131 mg/dL 05/11 [facility]. Studies Level /2016 [facility] [place] [facility] Troponin I null 05/11 [facility] [address] Studies /2016 [facility] [place] [facility] Glomerular null 05/10 [facility]. Studies Basement /2016 [facility] Membrane IgG [place] Ab Laboratory Urine pH 6.0 05/10 [facility] St. Studies /2016 [facility] [place] [facility] Urine Total Urine 05/10 [facility] Studies Protein Total /2016 [facility] Protein [place] [facility] Urine 1.020 05/10 [facility]. Studies Specific /2016 [facility] [place] [facility] Urine Urine 05/10 [facility]. Studies Nitrite Nitrite /2016 [facility] [place] [facility] Urine Urine 05/10 [facility] Studies Leukocyte Leukocyte /2016 [facility] Esterase Esterase [place] [facility] Urine Urine 05/10 [facility]. Studies Ketones Ketones /2016 [facility] [place] [facility] Urine Urine 05/10 [facility] Studies Glucose Glucose /2016 [facility] [place] [facility] Urine Blood Urine 05/10 [facility]. Studies Blood /2016 [facility] [place] [facility] Creatine 11.3 ng/ml 0.3 - 4.0 05/10 [facility]. Studies Kinase MB /2016 [facility] [place] [facility] B-Type 594 pg/ml 05/10 [facility]. Studies Natriuretic /2016 [facility] Peptide [place] [facility] Rapid null 05/10 [facility] Studies Troponin I /2016 [facility] [place] [facility] Prothrombin 11.3 9.5 - 12.5 05/10 [facility]. Studies Time SECONDS /2016 [facility] [place] [facility] INR 0.96 05/10 [facility]. Studies Internationa /2016 [facility] - l Normalized [place] Ratio Laboratory Activated 28.5 24.3 - 05/10 [facility] Studies Partial SECONDS 36.9 [facility] Thromboplast [place] Time Vital Signs Vital Sign Value Date Comments Source Systolic (mm Hg) 189 02/28/2018 [facility] Diastolic (mm Hg) 76 02/28/2018 [facility] Systolic (mm Hg) 180 02/28/2018 [facility] Diastolic (mm Hg) 72 02/28/2018 [facility] Systolic (mm Hg) 189 02/28/2018 [facility] Diastolic (mm Hg) 76 02/28/2018 [facility] Respitory Rate 15 02/28/2018 [facility] Respitory Rate 12 02/28/2018 [facility] Respitory Rate 14 02/28/2018 [facility] Temperature Oral (F) 97.8 F 02/21/2018 [facility] Heart Rate 53 02/21/2018 [facility] Height 190.5 cm 02/21/2018 [facility] Weight 93.722 02/21/2018 [facility] BMI Calculated 25.83 02/21/2018 [facility] Temperature Oral (F) 97.5 F 06/05/2017 [facility] [place] Heart Rate 66 06/05/[address] [facility] [place] Respitory Rate 18 06/05/[address] [facility] [place] Systolic (mm Hg) 131 06/05/[address] [facility] [place] Diastolic (mm Hg) 62 06/05/[address] [facility] [place] Height 75 06/05/[address] [facility] [place] Weight 228 06/05/[address] [facility] [place] Encounters Location Location Encounter Encounter Reason Attending ADM DC Status Source Details Type Number For Provider Date Date Visit DARRON Jordan. Registered [id number] 04/11 [facility]2016 [facility] [place] [facility] Registered [id number] 04/[address] [facility] Referred /2016 [facility] [place] [facility] Registered [id number] 04/[address] [facility] Referred /2016 [facility] [place] [facility] Registered [id number] 04/[address] [facility] Referred /2016 [facility] [place] [facility] Departed [id number] 04/27 04/[address] [facility] /2016 [facility] [place] [facility] [place] [facility] Jordan. Discharged [id number] 05/10 05/[address] [facility]patient /2016 [facility] [place] [facility] [id number] 06/01 06/[address] [facility] Inpatient /2016 [facility] [place] [facility] [id number] Joey 02/28 02/28 Ata Sánchez /2017 [facility] Procedures Procedure Code Date Perfomer Comments Source Chest Single [id number] 06/03/[address] [facility] View [place] Chest Pa And [id number] 06/02/[address] [facility] - Lat (2 Views) [place] Abdomen & [id number] 05/29/[address] [facility] Pelvis Wo [place] Contrast Chest Pa And [id number] 05/11/[address] [facility] Lat (2 Views) [place] Abdomen & [id number] 05/10/[address] [facility] [place] Contrast Chest Single [id number] 05/10/[address] [facility] [place] REMOVAL OF [id number] 04/27/[address] [facility] INFUSION DEVICE [place] FROM UPPER VEIN, OPEN APPROACH REMOVAL [id number] 04/27/[address] [facility] - TUNNELED CV [place] CATH Appendectomy<dobson [id number] [place] p>1</sup> Operation<sup>2 [id number] Rt shoulder surgery 2011 [facility] </sup> Dialysis cath placement Right anterior chest 2018
--- OUTSIDE RECORDS SUMMARY | 2018-10-16 00:09 | XMS REPORT | Summary of Care ---
:1965 Author Organization [facility] Address [address] [place], [place] [address]- Encounter HQ Anna_jacob(FIN) [phone] Date(s): 02/28/18 - 02/28/18 [facility] [address] [place] [address]- [phone] Encounter Diagnosis Hypertensive chronic kidney disease with stage 5 chronic kidney disease or end stage renal disease (Final) - 05/10/18 End stage renal disease (Final) - Type 2 diabetes mellitus with diabetic chronic kidney disease (Final) - Hyperlipidemia, unspecified (Final) - Atherosclerotic heart disease of [place] coronary artery without angina pectoris (Final) - Dependence on renal dialysis (Final) - 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) - MCC (current) use of insulin (Final) - [facility] (current) use of antithrombotics/antiplatelets (Final) - Discharge Disposition: Home or Self Care Attending Physician: Joey Sánchez MD Referring Physician: Joey Sánchez MD Vital Signs Most recent to oldest 1 2 3 [Reference Range]: Height 190.5 cm (02/21/18 3:16 PM) Temperature Oral [96.4-99.1 97.8 DegF DegF] (02/21/18 3:16 PM) Blood Pressure [90-140/60-90 189/76 mmHg 180/72 mmHg 189/76 mmHg mmHg] *HI* *HI* *HI* (02/28/18 5:30 PM) (02/28/18 5:00 PM) (02/28/18 4:30 PM) Respiratory Rate [14-20 BRMIN] 15 BRMIN 12 BRMIN 14 BRMIN (02/28/18 4:15 PM) *LOW* (02/28/18 3:45 PM) (02/28/18 4:00 PM) Peripheral Pulse Rate [60-100 53 bpm bpm] *LOW* (02/21/18 3:16 PM) Weight 93.722 kg (02/21/18 3:16 PM) Body Mass Index 25.83 m2 (02/21/18 3:16 PM) Problem List Condition Effective Dates Status Health Status Informant IDDM (insulin dependent diabetes Active mellitus)(Confirmed) ESRD (end stage renal Active disease)(Confirmed) Heart disease(Confirmed) Resolved Hyperlipidemia(Confirmed) Active HTN (hypertension)(Confirmed) Active Allergies, Adverse Reactions, Alerts Substance Reaction Severity Status sulfa drugs Active Medications acetaminophen-hydrocodone 325 mg-10 mg oral tablet 1 tab, Route: PO, Dosing Weight 93.722, kg, Q4H, PRN Pain Score 4-6, Start date : 02/28/18 15:58:00 CDT, Duration: 30 day, Stop date: 03/30/18 15:57:00 CDT Start Date: 02/28/18 Stop Date: 02/28/18 Status: Discontinuedacetaminophen-hydrocodone 325 mg-5 mg oral tablet 1 tab, Route: PO, Dosing Weight 93.722, kg, Q4H, PRN Pain Score 4-6, Start date : 02/28/18 15:58:00 CDT, Duration: 30 day, Stop date: 03/30/18 15:57:00 CDT Start Date: 02/28/18 Stop Date: 02/28/18 Status: DiscontinuedamLODIPine 10 mg oral tablet 10 mg=1 tab, PO, Daily, # 30 tab, 0 Refill(s) Start Date: 02/21/18 Status: OrderedAncef + sterile water 20 mL 2 gm, Route: IV, PRE OP, Dosing Weight 93.722, kg, Start date: 02/21/18 16:00: 00 CDT, Duration: 1 day, Stop date: 02/22/18 15:59:00 CDT, ABX Indication: Surgical Prophylaxis Notes: (Same As: Rosemary Trujillo) MEDICATION WASTE Product Size: 1000 mgProduct Wasted: ___ mg Start Date: 02/21/18 Stop Date: 03/01/18 Status: DiscontinuedANES acetaminophen 1,000 mg, Route: PO, Drug form: TAB, ONCE, Dosing Weight 93.722, kg, PRN Pain Score 1-3, Start date:02/28/18 10:24:00 CDT Start Date: 02/28/18 Stop Date: 02/28/18 Status: DiscontinuedANES acetaminophen 1,000 mg, Route: PO, Drug form: TAB, ONCE, Dosing Weight 93.722, kg, PRN Pain Score 1-3, Start date:02/28/18 10:24:00 CDT Start Date: 02/28/18 Stop Date: 02/28/18 Status: DiscontinuedANES albuterol 0.083% inhalation solution 2.49 mg, Route: NEB, Q20Min, Dosing Weight 93.722, kg, PRN Wheezing, Priority: STAT, Start date: 02/28/18 10:24:00 CDT, Duration: 30 day, Stop date: 03/30/18 10:23:00 CDT Start Date: 02/28/18 Stop Date: 02/28/18 Status: DiscontinuedANES albuterol 0.083% inhalation solution 2.49 mg, Route: NEB, Q20Min, Dosing Weight 93.722, kg, PRN Wheezing, Priority: STAT, Start date: 02/28/18 10:24:00 CDT, Duration: 30 day, Stop date: 03/30/18 10:23:00 CDT Start Date: 02/28/18 Stop Date: 02/28/18 Status: DiscontinuedANES diphenhydrAMINE 12.5 mg, Route: IVP, Drug form: INJ, Q6H, Dosing Weight 93.722, kg, PRN Itching , Start date: 02/28/18 10:24:00 CDT, Duration: 30 day, Stop date: 03/30/18 10:23 :00 CDT Start Date: 02/28/18 Stop Date: 02/28/18 Status: DiscontinuedANES diphenhydrAMINE 12.5 mg, Route: IVP, Drug form: INJ, Q6H, Dosing Weight 93.722, kg, PRN Itching , Start date: 02/28/18 10:24:00 CDT, Duration: 30 day, Stop date: 03/30/18 10:23 :00 CDT Start Date: 02/28/18 Stop Date: 02/28/18 Status: DiscontinuedANES esmolol 10 mg, Route: IVP, Q5Min, Dosing Weight 93.722, kg, PRN Other -See Comment, Start date: 02/28/18 10:24:00 CDT, Duration: 5 doses or times, Stop date: Limited # of times Start Date: 02/28/18 Stop Date: 02/28/18 Status: DiscontinuedANES esmolol 10 mg, Route: IVP, Q5Min, Dosing Weight 93.722, kg, PRN Other -See Comment, Start date: 02/28/18 10:24:00 CDT, Duration: 5 doses or times, Stop date: Limited # of times Start Date: 02/28/18 Stop Date: 02/28/18 Status: DiscontinuedANES fentaNYL 25 microgram, Route: IVP, Q5Min, Dosing Weight 93.722, kg, PRN Pain Score 4-6, Priority: Routine, Start date: 02/28/18 10:24:00 CDT, Duration: 4 doses or times , Stop date: Limited # of times Start Date: 02/28/18 Stop Date: 02/28/18 Status: DiscontinuedANES fentaNYL 25 microgram, Route: IVP, Q5Min, Dosing Weight 93.722, kg, PRN Pain Score 4-6, Priority: Routine, Start date: 02/28/18 10:24:00 CDT, Duration: 4 doses or times , Stop date: Limited # of times Start Date: 02/28/18 Stop Date: 02/28/18 Status: DiscontinuedANES flumazenil 0.2 mg, Route: IVP, PRN, Dosing Weight 93.722, kg, PRN Benzodiazepine Reversal, Initial dose, Start date: 02/28/18 10:24:00 CDT, Duration: 30 day, Stop date: 10:23:00 CDT Start Date: 02/28/18 Stop Date: 02/28/18 Status: DiscontinuedANES flumazenil 0.2 mg, Route: IVP, PRN, Dosing Weight 93.722, kg, PRN Benzodiazepine Reversal, Initial dose, Start date: 02/28/18 15:57:00 CDT, Duration: 30 day, Stop date: 15:56:00 CDT Start Date: 02/28/18 Stop Date: 02/28/18 Status: DiscontinuedANES flumazenil 0.2 mg, Route: IVP, PRN, Dosing Weight 93.722, kg, PRN Benzodiazepine Reversal, Initial dose, Start date: 02/28/18 10:24:00 CDT, Duration: 30 day, Stop date: 10:23:00 CDT Start Date: 02/28/18 Stop Date: 02/28/18 Status: DiscontinuedANES hydrALAZINE 10 mg, Route: IVP, Q20Min, Dosing Weight 93.722, kg, PRN Elevated BP, Start date : 02/28/18 10:24:00 CDT, Duration: 2 doses or times, Stop date: Limited # of times Start Date: 02/28/18 Stop Date: 02/28/18 Status: DiscontinuedANES hydrALAZINE 10 mg, Route: IVP, Q20Min, Dosing Weight 93.722, kg, PRN Elevated BP, Start date : 02/28/18 10:24:00 CDT, Duration: 2 doses or times, Stop date: Limited # of times Start Date: 02/28/18 Stop Date: 02/28/18 Status: DiscontinuedANES HYDROmorphone 0.5 mg, Route: IVP, Q5Min, Dosing Weight 93.722, kg, PRN Pain Score 7-10, Start date: 02/28/18 15:57:00 CDT, Duration: 4 doses or times, Stop date: Limited # of times Start Date: 02/28/18 Stop Date: 02/28/18 Status: DiscontinuedANES labetalol 10 mg, Route: IVP, Q5Min, Dosing Weight 93.722, kg, PRN Elevated BP, Start date : 02/28/18 10:24:00 CDT, Duration: 5 doses or times, Stop date: Limited # of times Start Date: 02/28/18 Stop Date: 02/28/18 Status: DiscontinuedANES labetalol 10 mg, Route: IVP, Q5Min, Dosing Weight 93.722, kg, PRN Elevated BP, Start date : 02/28/18 10:24:00 CDT, Duration: 5 doses or times, Stop date: Limited # of times Start Date: 02/28/18 Stop Date: 02/28/18 Status: DiscontinuedANES meperidine 12.5 mg, Route: IVP, Q30Min, Dosing Weight 93.722, kg, PRN Other -See Comment, For shivering, Start date: 02/28/18 10:24:00 CDT, Duration: 2 doses or times, Stop date: Limited # of times Start Date: 02/28/18 Stop Date: 02/28/18 Status: DiscontinuedANES meperidine 12.5 mg, Route: IVP, Q30Min, Dosing Weight 93.722, kg, PRN Other -See Comment, For shivering, Start date: 02/28/18 10:24:00 CDT, Duration: 2 doses or times, Stop date: Limited # of times Start Date: 02/28/18 Stop Date: 02/28/18 Status: DiscontinuedANES naloxone 0.4 mg, Route: IVP, Q2MIN, Dosing Weight 93.722, kg, PRN Narcotic Reversal, Start date: 02/28/18 10:24:00 CDT, Duration: 8 doses or times, Stop date: Limited # of times Start Date: 02/28/18 Stop Date: 02/28/18 Status: DiscontinuedANES naloxone 0.4 mg, Route: IVP, Q2MIN, Dosing Weight 93.722, kg, PRN Narcotic Reversal, Start date: 02/28/18 15:57:00 CDT, Duration: 8 doses or times, Stop date: Limited # of times Start Date: 02/28/18 Stop Date: 02/28/18 Status: DiscontinuedANES naloxone 0.4 mg, Route: IVP, Q2MIN, Dosing Weight 93.722, kg, PRN Narcotic Reversal, Start date: 02/28/18 10:24:00 CDT, Duration: 8 doses or times, Stop date: Limited # of times Start Date: 02/28/18 Stop Date: 02/28/18 Status: DiscontinuedANES ondansetron 4 mg, Route: IVP, ONCE, Dosing Weight 93.722, kg, PRN Nausea & Vomiting, Start date: 02/28/18 10:24:00 CDT Start Date: 02/28/18 Stop Date: 02/28/18 Status: DiscontinuedANES ondansetron 4 mg, Route: IVP, ONCE, Dosing Weight 93.722, kg, PRN Nausea & Vomiting, Start date: 02/28/18 15:57:00 CDT Start Date: 02/28/18 Stop Date: 02/28/18 Status: DiscontinuedANES ondansetron 4 mg, Route: IVP, ONCE, Dosing Weight 93.722, kg, PRN Nausea & Vomiting, Start date: 02/28/18 10:24:00 CDT Start Date: 02/28/18 Stop Date: 02/28/18 Status: DiscontinuedANES oxyCODONE 10 mg, Route: PO, Drug form: TAB, Q4H, Dosing Weight 93.722, kg, PRN Pain Score 7-10, Start date: 02/28/18 10:24:00 CDT, Duration: 30 day, Stop date: 03/30/18 10:23:00 CDT Start Date: 02/28/18 Stop Date: 02/28/18 Status: DiscontinuedANES oxyCODONE 10 mg, Route: PO, Drug form: TAB, Q4H, Dosing Weight 93.722, kg, PRN Pain Score 7-10, Start date: 02/28/18 10:24:00 CDT, Duration: 30 day, Stop date: 03/30/18 10:23:00 CDT Start Date: 02/28/18 Stop Date: 02/28/18 Status: Discontinuedaspirin 325 mg, PO, Bedtime, 0 Refill(s) Start Date: 02/21/18 Status: Orderedatorvastatin 80 mg oral tablet 80 mg=1 tab, PO, Daily, # 30 tab, 0 Refill(s) Start Date: 02/21/18 Status: OrderedceFAZolin (ANES) Route: IV, Drug form: INJ, ONCE, Stop date: 02/28/18 14:52:00 CDT Start Date: 02/28/18 Stop Date: 02/28/18 Status: Completedclopidogrel 75 mg oral tablet 75 mg=1 tab, PO, Daily, # 30 tab, 0 Refill(s) Start Date: 02/21/18 Status: OrderedColace 100 mg oral capsule 200 mg=2 cap, PO, BID, # 60 cap, 0 Refill(s) Start Date: 02/21/18 Status: Orderedfamotidine 40 mg, PO, Bedtime, # 60 tab, 0 Refill(s) Start Date: 02/21/18 Stop Date: 03/23/18 Status: Orderedfamotidine (ANES) Route: IV, Drug form: INJ, ONCE, Stop date: 02/28/18 14:47:00 CDT Start Date: 02/28/18 Stop Date: 02/28/18 Status: CompletedfentaNYL (ANES) Route: IV, Drug form: INJ, ONCE, Stop date: 02/28/18 14:52:00 CDT Start Date: 02/28/18 Stop Date: 02/28/18 Status: Completedfurosemide 40 mg oral tablet 40 mg=1 tab, PO, BID, 0 Refill(s) Start Date: 02/21/18 Status: OrderedHumalog SUB-Q, 0 Refill(s) Start Date: 02/21/18 Status: OrderedhydrALAZINE 25 mg oral tablet 3 tabs, PO, BID, # 90 tab, 3 Refill(s) Start Date: 02/21/18 Status: OrderedLactated Ringers Injection IV 1000 mL 1,000 mL, Rate: 25 ml/hr, Infuse over: 40 hr, Route: IV, Dosing Weight 93.722 kg , Total Volume: 1,000, Start date: 02/28/18 10:48:00 CDT, Duration: 30 day, Stop date: 03/30/18 10:47:00 CDT, 2.23, m2 Start Date: 02/28/18 Stop Date: 02/28/18 Status: Discontinuedlactulose 10 g/15 mL oral syrup 20 gm=30 mL, PO, Daily, PRN constipation, # 240 mL, 0 Refill(s) Start Date: 02/21/18 Stop Date: 03/01/18 Status: Orderedlidocaine (ANES) Route: IV, Drug form: INJ, ONCE, Stop date: 02/28/18 14:52:00 CDT Start Date: 02/28/18 Stop Date: 02/28/18 Status: Completedmetoclopramide (ANES) Route: IV, Drug form: INJ, ONCE, Stop date: 02/28/18 14:47:00 CDT Start Date: 02/28/18 Stop Date: 02/28/18 Status: Completedmetoclopramide 5 mg oral tablet 5 mg=1 tab, PO, BID, 0 Refill(s) Start Date: 02/21/18 Status: Orderedmetoprolol tartrate 100 mg oral tablet 100 mg=1 tab, PO, BID, # 60 tab, 0 Refill(s) Start Date: 02/21/18 Status: Orderedmidazolam (ANES) Route: IV, Drug form: SOLN, ONCE, Stop date: 02/28/18 15:25:00 CDT Start Date: 02/28/18 Stop Date: 02/28/18 Status: CompletedNitrostat 0.4 mg sublingual tablet 0.4 mg=1 tab, SL, Q5Min, PRN Chest Pain, # 100 tab, 0 Refill(s) Start Date: 02/21/18 Status: OrderedoxyCODONE 5 mg oral tablet 2 tab, Route: PO, POST OP, Dosing Weight 93.722, kg, Start date: 02/28/18 17:00: 00 CDT, Duration: 30day, Stop date: 03/30/18 16:59:00 CDT Start Date: 02/28/18 Stop Date: 02/28/18 Status: Completedpromethazine 25 mg oral tablet 25 mg=1 tab, PO, Q8H, PRN Nausea/Vomiting, # 30 tab, 0 Refill(s) Start Date: 02/21/18 Stop Date: 03/03/18 Status: Orderedpropofol (ANES) Route: IV, Drug form: INJ, ONCE, Stop date: 02/28/18 14:52:00 CDT Start Date: 02/28/18 Stop Date: 02/28/18 Status: CompletedRanexa 1000 mg oral tablet, extended release 1,000 mg=1 tab, PO, Daily, # 30 tab, 0 Refill(s) Start Date: 02/21/18 Status: OrderedReglan 10 mg, Route: IVP, Drug form: INJ, ONCE, Dosing Weight 93.722, kg, Start date: 02/28/18 12:55:00 CDT, Stop date: 02/28/18 12:55:00 CDT Start Date: 02/28/18 Stop Date: 02/28/18 Status: Completedsertraline 50 mg oral tablet 50 mg=1 tab, PO, Daily, # 30 tab, 0 Refill(s) Start Date: 02/21/18 Stop Date: 06/18/18 Status: Completedsevelamer 800 mg oral tablet 1,600 mg=2 tab, PO, TID-Meals, # 180 tab, 0 Refill(s) Start Date: 02/21/18 Stop Date: 03/23/18 Status: OrderedSodium Chloride 0.9% IV (ANES) 500 mL Route: IV, Total Volume: 500, Start date: 02/28/18 13:50:00 CDT, Stop date: 14:50:00 CDT Start Date: 02/28/18 Stop Date: 02/28/18 Status: CompletedSodium Chloride 0.9% IV 500 mL 500 mL, Rate: 25 ml/hr, Infuse over: 20 hr, Route: IV, Dosing Weight 93.722 kg, Total Volume: 500, Start date: 02/28/18 10:30:00 CDT, Duration: 1 doses or times , Stop date: 03/01/18 6:29:00 CDT, 2.23, m2 Start Date: 02/28/18 Stop Date: 02/28/18 Status: CompletedTravatan Z 0.004% ophthalmic solution 1 drp, OPTH, Bedtime, # 2.5 ml, 0 Refill(s) Start Date: 02/21/18 Status: Orderedvancomycin + Dextrose 5% in Water IV 250 mL 1 gm, Route: IVPB, Drug form: INJ, PRE OP, Dosing Weight 93.722, kg, Start date : 02/21/18 16:00:00 CDT, Duration: 1 day, Stop date: 02/22/18 15:59:00 CDT, ABX Indication: Surgical Prophylaxis Notes: TIME CRITICAL MEDICATION(Same As: Vancocin)Infusion rate< 1000 mg: infuse over 1 [id number] - 1500 mg: infuse over 1.5 [id number] - 2000 mg: infuse over 2 hours> 2001 mg: infuse over 2.5 hoursFor adult patients only: Round to nearest 250 mg per Medical Staff approval MEDICATION WASTE Product Size: 1000 mgProduct Wasted: ___ mg Start Date: 02/21/18 Stop Date: 03/01/18 Status: DiscontinuedVitamin D2 50,000 intl units oral capsule 50,000 IntlUnit=1 cap, PO, qWeek, 0 Refill(s) Start Date: 02/21/18 Stop Date: 04/13/18 Status: CompletedZofran 4 mg oral tablet 4 mg=1 tab, PO, Q6H, PRN Nausea/Vomiting, # 30 tab, 0 Refill(s) Start Date: 02/21/18 Stop Date: 06/20/18 Status: DiscontinuedZofran ODT 4 mg, Route: PO, Drug form: TABDIS, ONCE, Dosing Weight 93.722, kg, Start date: 02/28/18 12:29:00 CDT, Stop date: 02/28/18 12:29:00 CDT Start Date: 02/28/18 Stop Date: 02/28/18 Status: Completedzolpidem 5 mg oral tablet 5 mg=1 tab, PO, Bedtime, 0 Refill(s) Start Date: 02/21/18 Stop Date: 03/07/18 Status: Ordered Results BLOOD BANK RESULTS Most recent to oldest [Reference Range]: 1 ABO/Rh A POS *Unknown* (02/21/18 3:47 PM) Antibody Scrn Negative (02/21/18 3:47 PM) ELECTROLYTES Most recent to oldest [Reference Range]: 1 Sodium Lvl [135-145 mEq/L] 143 mEq/L (02/21/18 3:47 PM) Potassium Lvl [3.5-5.1 mEq/L] 4.2 mEq/L (02/21/18 3:47 PM) Chloride Lvl [95-109 mEq/L] 105 mEq/L (02/21/18 3:47 PM) CO2 [24-32 mEq/L] 26 mEq/L (02/21/18 3:47 PM) AGAP [10.0-20.0 mEq/L] 16.2 mEq/L (02/21/18 3:47 PM) CHEM PANEL Most recent to oldest [Reference Range]: 1 Creatinine Lvl [0.50-1.40 mg/dL] 7.17 mg/dL *HI* (02/21/18 3:47 PM) eGFR 8 mL/min/1.73m2 1 *NA* (02/21/18 3:47 PM) BUN [7-22 mg/dL] 46 mg/dL *HI* (02/21/18 3:47 PM) Glucose Lvl [70-99 mg/dL] 127 mg/dL *HI* (02/21/18 3:47 PM) Calcium Lvl [8.5-10.5 mg/dL] 8.5 mg/dL (02/21/18 3:47 PM) 1Result Comment: The eGFR is calculated using the CKD-EPI formula. In most young , healthy individualsthe eGFR will be >90 mL/min/1.73m2. The eGFR declines with age. An eGFR of 60-89 may be normal insome populations, particularly the elderly, for whom the CKD-EPI formula has not been extensively validated. Use of the eGFR is not recommended in the following populations: Individuals with unstable creatinine concentrations, including patients and those with serious co-morbid conditions. Patients with extremes in muscle mass or diet. The data above are obtained from the National Kidney Disease Education Program ( NKDEP) which additionally recommends that when the eGFR is used in patients with extremes of body mass index for purposesof drug dosing, the eGFR should be multiplied by the estimated BMI.SPECIAL CHEMISTRY Most recent to oldest [Reference Range]: 1 Hgb A1C [<=5.6 %] 5.5 % (02/21/18 3:47 PM) HEMATOLOGY Most recent to oldest [Reference Range]: 1 WBC [3.7-10.4 K/CMM] 6.8 K/CMM (02/21/18 3:47 PM) RBC [4.70-6.10 M/CMM] 3.54 M/CMM *LOW* (02/21/18 3:47 PM) Hgb [14.0-18.0 g/dL] 11.1 g/dL *LOW* (02/21/18 3:47 PM) Hct [42.0-54.0 %] 32.8 % *LOW* (02/21/18 3:47 PM) MCV [80.0-94.0 fL] 92.7 fL (02/21/18 3:47 PM) MCH [27.0-31.0 pg] 31.2 pg *HI* (02/21/18 3:47 PM) MCHC [32.0-36.0 g/dL] 33.7 g/dL (02/21/18 3:47 PM) RDW [11.5-14.5 %] 15.7 % *HI* (02/21/18 3:47 PM) MPV [7.4-10.4 fL] 7.3 fL *LOW* (02/21/18 3:47 PM) Platelet [133-450 K/CMM] 206 K/CMM (02/21/18 3:47 PM) Segs [45.0-75.0 %] 60.5 % (02/21/18 3:47 PM) Lymphocytes [20.0-40.0 %] 18.3 % *LOW* (02/21/18 3:47 PM) Monocytes [2.0-12.0 %] 12.9 % *HI* (02/21/18 3:47 PM) Eosinophils [0.0-4.0 %] 7.2 % *HI* (02/21/18 3:47 PM) Basophils [0.0-1.0 %] 1.1 % *HI* (02/21/18 3:47 PM) Neutrophils # [1.5-8.1 K/CMM] 4.1 K/CMM (02/21/18 3:47 PM) Lymphocytes # [1.0-5.5 K/CMM] 1.2 K/CMM (02/21/18 3:47 PM) Monocytes # [0.0-0.8 K/CMM] 0.9 K/CMM *HI* (02/21/18 3:47 PM) Eosinophils # [0.0-0.5 K/CMM] 0.5 K/CMM (02/21/18 3:47 PM) Basophils # [0.0-0.2 K/CMM] 0.1 K/CMM (02/21/18 3:47 PM) PT [12.0-14.7 seconds] 12.0 seconds (02/21/18 3:47 PM) INR [0.85-1.17] 0.89 (02/21/18 3:47 PM) PTT [22.9-35.8 seconds] 31.9 seconds (02/21/18 3:47 PM) Immunizations No data available for this section Procedures Procedure Date Related Diagnosis Body Site Status Appendectomy1 Completed Operation2 Completed [id number] shoulder surgery 2012 Dialysis cath placement Right anterior chest 2018 Social History Social History Type Response Substance Abuse Use: None. Alcohol Never Smoking Status Never smoker; Ready to change: No; Exposure to Tobacco Smoke None; Cigarette Smoking Last 365 Days No; Reg Smoking Cessation Counseling Yes entered on: 06/18/18 Assessment and Plan No data available for this section
--- OUTSIDE RECORDS SUMMARY | 2018-10-16 00:10 | XMS REPORT ---
:1965 Author Organization [facility] [address] [place] [address] Care Team Providers Name Role Phone DWIGHT [...] (test 243 mg/dL 70-110 TESTED AT [facility] [address] [place] [address] zgch=[phone]) [address] [facility] [id number] BASIC METABOLIC [id number] 13:51:00 Test Item Value Reference Range Comments SODIUM (BEAKER) (test 139 meq/L 135-148 njve=124) POTASSIUM (BEAKER) (test 3.4 meq/L 3.6-5.5 jupy=329) CHLORIDE (BEAKER) (test 101 meq/L 98-106 nzmn=806) CO2 (BEAKER) (test 29 meq/L 20-29 cmbc=785) BLOOD UREA NITROGEN 11 mg/dL 10-26 (BEAKER) (test bdao=737) CREATININE (BEAKER) (test 2.10 mg/dL 0.50-1.20 vspc=349) GLUCOSE RANDOM (BEAKER) 157 mg/dL 70-110 (test qilq=865) CALCIUM (BEAKER) (test 8.6 mg/dL 8.5-10.5 gpzq=964) EGFR (BEAKER) (test 33 mL/min/1.73 sq m ESTIMATED GFR IS NOT ymoa=2585) ACCURATE CREATININE CLEARANCE IN PREDICTING GLOMERULAR FILTRATION RATE. ESTIMATED GFR IS NOT APPLICABLE FOR DIALYSIS PATIENTS. [id number] 13:44:00 Test Item Value Reference Range Comments MAGNESIUM (BEAKER) (test hrud=310) 1.9 mg/dL 1.5-3.0 CBC W/PLT COUNT & AUTO [id number] 13:34:00 Test Item Value Reference Range Comments WHITE BLOOD CELL COUNT (BEAKER) (test vdzo=265) 6.8 K/ L 4.0-10.0 RED BLOOD CELL COUNT (BEAKER) (test hcns=801) 2.92 M/ L 4.20-5.80 HEMOGLOBIN (BEAKER) (test misn=477) 8.4 GM/DL 13.0-16.8 HEMATOCRIT (BEAKER) (test dnmt=714) 25.5 % 40.0-50.0 MEAN CORPUSCULAR VOLUME (BEAKER) (test imgb=197) 87.4 fL 82.0-98.0 MEAN CORPUSCULAR HEMOGLOBIN (BEAKER) (test 28.7 pg 27.0-33.0 weez=611) MEAN CORPUSCULAR HEMOGLOBIN CONC (BEAKER) (test 32.8 GM/DL 32.0-36.0 noyu=687) RED CELL DISTRIBUTION WIDTH (BEAKER) (test 14.7 % 10.3-14.2 hkei=887) PLATELET COUNT (BEAKER) (test mala=354) 299 K/CU MM 150-430 MEAN PLATELET VOLUME (BEAKER) (test qbqz=860) 6.9 fL 6.5-10.5 NUCLEATED RED BLOOD CELLS (BEAKER) (test 0 /100 WBC 0-0 ooml=342) NEUTROPHILS RELATIVE PERCENT (BEAKER) (test 65 % jmyn=291) LYMPHOCYTES RELATIVE PERCENT (BEAKER) (test 18 % hlpj=606) MONOCYTES RELATIVE PERCENT (BEAKER) (test 14 % obik=743) EOSINOPHILS RELATIVE PERCENT (BEAKER) (test 3 % ucei=407) BASOPHILS RELATIVE PERCENT (BEAKER) (test 1 % afuu=217) NEUTROPHILS ABSOLUTE COUNT (BEAKER) (test 4.40 K/ L 1.80-8.00 hhny=588) LYMPHOCYTES ABSOLUTE COUNT (BEAKER) (test 1.20 K/ L 1.48-4.50 tmrn=314) MONOCYTES ABSOLUTE COUNT (BEAKER) (test 1.00 K/ L 0.00-1.30 ishl=838) EOSINOPHILS ABSOLUTE COUNT (BEAKER) (test 0.20 K/ L 0.00-0.50 smdy=527) BASOPHILS ABSOLUTE COUNT (BEAKER) (test 0.00 K/ L 0.00-0.20 whht=857) POCT-GLUCOSE [id number] 11:28:00 Test Item Value Reference Range Comments POC-GLUCOSE METER (BEAKER) 147 mg/dL 70-110 TESTED AT [address] (test fssg=4212) [place] [address] POCT-GLUCOSE [id number] 06:04:00 Test Item Value Reference Range Comments POC-GLUCOSE METER (BEAKER) 137 mg/dL 70-110 TESTED AT [address] (test peqt=6971) [place] [address] POCT-GLUCOSE [id number] 21:01:00 Test Item Value Reference Range Comments POC-GLUCOSE METER (BEAKER) 138 mg/dL 70-110 TESTED AT [address] (test rfgf=1013) [place] [address] POCT-GLUCOSE [id number] 16:06:00 Test Item Value Reference Range Comments POC-GLUCOSE METER (BEAKER) 167 mg/dL 70-110 TESTED AT [address] (test ortp=6393) [place] [address] POCT-GLUCOSE [id number] 12:49:00 Test Item Value Reference Range Comments POC-GLUCOSE METER (BEAKER) 144 mg/dL 70-110 TESTED AT [address] (test rnzb=7569) [place] [address] [id number] 10:27:00 Test Item Value Reference Range Comments POC-CREATININE (BEAKER) 3.6 mg/dL 0.6-1.3 TESTED AT [address] (test ygpk=9266) [place] [address] POC-EGFR (BEAKER) (test 18 mL/min/1.73M2 uhbn=7573) [id number] 10:27:00 Test Item Value Reference Range Comments POC-SODIUM (BEAKER) (test 138 meq/L 135-148 TESTED AT [address] binq=0777) [place] [address] [id number] 10:27:00 Test Item Value Reference Range Comments POC-POTASSIUM (BEAKER) 3.6 meq/L 3.6-5.5 TESTED AT [address] (test kyxu=1400) [place] [address] [id number] 10:27:00 Test Item Value Reference Range Comments POC-BUN (BEAKER) (test 20 mg/dL 7-21 TESTED AT [address] grhq=2383) [place] [address] [id number] 10:27:00 Test Item Value Reference Range Comments POC-CHLORIDE (BEAKER) (test 97 meq/L 98-107 TESTED AT [address] yfth=3157) [place] [address] [id number] 10:27:00 Test Item Value Reference Range Comments POC-GLUCOSE (BEAKER) (test 123 mg/dL 70-110 TESTED AT [address] yvbz=8569) [place] [address] [id number] 10:27:00 Test Item Value Reference Range Comments POC-HEMATOCRIT (BEAKER) (test 24 % 40-50 TESTED AT [address] bnwl=7372) [place] [address] [id number] 10:27:00 Test Item Value Reference Range Comments POC-HEMOGLOBIN (BEAKER) 8.2 g/dL 13.0-16.8 TESTED AT [address] (test dyma=0718) [place] [address] [id number] 10:27:00 Test Item Value Reference Range Comments POC-TCO2 (BEAKER) (test 30 meq/L 22-29 TESTED AT [address] fwct=5725) [place] [address] POCT-GLUCOSE [id number] 06:08:00 Test Item Value Reference Range Comments POC-GLUCOSE METER (BEAKER) 163 mg/dL 70-110 TESTED AT [address] (test wlir=4751) [place] [address] POCT-GLUCOSE [id number] 21:07:00 Test Item Value Reference Range Comments POC-GLUCOSE METER (BEAKER) 132 mg/dL 70-110 TESTED AT [facility] [address] [place] [address] (test xaok=8905) [facility] [address] POCT-GLUCOSE [id number] 12:58:00 Test Item Value Reference Range Comments POC-GLUCOSE METER (BEAKER) 178 mg/dL 70-110 TESTED AT [address] (test takv=6525) [facility] [address] POCT-GLUCOSE [id number] 05:29:00 Test Item Value Reference Range Comments POC-GLUCOSE METER (BEAKER) 171 mg/dL 70-110 TESTED AT [address] (test igoa=7053) [facility] [address] POCT-GLUCOSE [id number] 22:03:00 Test Item Value Reference Range Comments POC-GLUCOSE METER (BEAKER) 249 mg/dL 70-110 TESTED AT [address] (test nfvl=1327) [facility] [address] POCT-GLUCOSE [id number] 16:45:00 Test Item Value Reference Range Comments POC-GLUCOSE METER (BEAKER) 213 mg/dL 70-110 TESTED AT [address] (test qsxs=7040) [facility] [address] [id number] 16:43:00 Test Item Value Reference Range Comments THYROID STIMULATING HORMONE (BEAKER) (test 2.09 uIU/mL 0.35-5.50 lily=978) COMPREHENSIVE METABOLIC [id number] 16:24:00 Test Item Value Reference Range Comments TOTAL PROTEIN (BEAKER) 7.2 gm/dL 6.0-8.5 (test jjtn=049) ALBUMIN (BEAKER) (test 3.5 g/dL 3.5-5.0 mtkc=0481) ALKALINE PHOSPHATASE 67 U/L 30-115 (BEAKER) (test dadz=182) BILIRUBIN TOTAL (BEAKER) 0.3 mg/dL 0.1-1.2 (test mbdm=861) SODIUM (BEAKER) (test 136 meq/L 135-148 nwif=600) POTASSIUM (BEAKER) (test 4.1 meq/L 3.6-5.5 ruqo=516) CHLORIDE (BEAKER) (test 98 meq/L 98-106 kobn=594) CO2 (BEAKER) (test 26 meq/L 20-29 hqwg=929) BLOOD UREA NITROGEN 32 mg/dL 10-26 (BEAKER) (test bfzc=711) CREATININE (BEAKER) (test 4.40 mg/dL 0.50-1.20 ppaz=605) GLUCOSE RANDOM (BEAKER) 212 mg/dL 70-110 (test emxn=146) CALCIUM (BEAKER) (test 9.0 mg/dL 8.5-10.5 wypc=101) AST (SGOT) (BEAKER) (test 14 U/L 5-40 tlsa=865) ALT (SGPT) (BEAKER) (test 4 U/L 5-50 dehb=974) EGFR (BEAKER) (test 14 mL/min/1.73 sq m ESTIMATED GFR IS NOT ukwk=5124) ACCURATE CREATININE CLEARANCE IN PREDICTING GLOMERULAR FILTRATION RATE. ESTIMATED GFR IS NOT APPLICABLE FOR DIALYSIS PATIENTS. CBC W/PLT COUNT & AUTO [id number] 16:02:00 Test Item Value Reference Range Comments WHITE BLOOD CELL COUNT (BEAKER) (test uuel=824) 6.9 K/ L 4.0-10.0 RED BLOOD CELL COUNT (BEAKER) (test enjf=218) 2.95 M/ L 4.20-5.80 HEMOGLOBIN (BEAKER) (test qytf=303) 8.6 GM/DL 13.0-16.8 HEMATOCRIT (BEAKER) (test gkcm=786) 25.9 % 40.0-50.0 MEAN CORPUSCULAR VOLUME (BEAKER) (test ymbf=200) 87.9 fL 82.0-98.0 MEAN CORPUSCULAR HEMOGLOBIN (BEAKER) (test 29.0 pg 27.0-33.0 mufg=506) MEAN CORPUSCULAR HEMOGLOBIN CONC (BEAKER) (test 33.0 GM/DL 32.0-36.0 tvdx=496) RED CELL DISTRIBUTION WIDTH (BEAKER) (test 15.0 % 10.3-14.2 tswu=866) PLATELET COUNT (BEAKER) (test mujh=407) 330 K/CU MM 150-430 MEAN PLATELET VOLUME (BEAKER) (test mtbw=476) 7.1 fL 6.5-10.5 NUCLEATED RED BLOOD CELLS (BEAKER) (test 0 /100 WBC 0-0 fssn=628) NEUTROPHILS RELATIVE PERCENT (BEAKER) (test 66 % reqh=272) LYMPHOCYTES RELATIVE PERCENT (BEAKER) (test 16 % yzct=726) MONOCYTES RELATIVE PERCENT (BEAKER) (test 12 % fiis=917) EOSINOPHILS RELATIVE PERCENT (BEAKER) (test 5 % bfgp=578) BASOPHILS RELATIVE PERCENT (BEAKER) (test 1 % lyzh=102) NEUTROPHILS ABSOLUTE COUNT (BEAKER) (test 4.60 K/ L 1.80-8.00 kcdo=714) LYMPHOCYTES ABSOLUTE COUNT (BEAKER) (test 1.10 K/ L 1.48-4.50 zued=338) MONOCYTES ABSOLUTE COUNT (BEAKER) (test 0.80 K/ L 0.00-1.30 ylpb=631) EOSINOPHILS ABSOLUTE COUNT (BEAKER) (test 0.30 K/ L 0.00-0.50 csgh=219) BASOPHILS ABSOLUTE COUNT (BEAKER) (test 0.10 K/ L 0.00-0.20 phat=623) PROTHROMBIN [id number] 16:01:00 Test Item Value Reference Range Comments PROTIME (BEAKER) (test fmol=831) 10.3 seconds 9.3-12.0 INR (BEAKER) (test yqua=520) 1.0 <=5.9 RECOMMENDED COUMADIN/WARFARIN INR THERAPY RANGESSTANDARD DOSE: 2.0 - 3.0 Includes: PROPHYLAXIS forvenous thrombosis, systemic embolization; TREATMENT for venous thrombosis and/or pulmonary embolus.HIGH RISK: Target INR is 2.5-3.5 for patients with mechanical heart valves.POCT-GLUCOSE [id number] 12:01:00 Test Item Value Reference Range Comments POC-GLUCOSE METER (BEAKER) 211 mg/dL 70-110 TESTED AT [facility] [address] [place] [address] (test zxmg=5498) [facility] [address] POCT-GLUCOSE [id number] 06:08:00 Test Item Value Reference Range Comments POC-GLUCOSE METER (BEAKER) 191 mg/dL 70-110 TESTED AT [address] (test nxnj=7762) [facility] [address] POCT-GLUCOSE [id number] 21:28:00 Test Item Value Reference Range Comments POC-GLUCOSE METER (BEAKER) 233 mg/dL 70-110 TESTED AT [address] (test gcnm=4752) [facility] [address] POCT-GLUCOSE [id number] 16:19:00 Test Item Value Reference Range Comments POC-GLUCOSE METER (BEAKER) 290 mg/dL 70-110 TESTED AT [address] (test tpvv=8956) [facility] [address] POCT-GLUCOSE [id number] 13:33:00 Test Item Value Reference Range Comments POC-GLUCOSE METER (BEAKER) 186 mg/dL 70-110 TESTED AT [address] (test wtuf=4062) [facility] [address] POCT-GLUCOSE [id number] 06:27:00 Test Item Value Reference Range Comments POC-GLUCOSE METER (BEAKER) 204 mg/dL 70-110 TESTED AT [address] (test btmw=2042) [facility] [address] POCT-GLUCOSE [id number] 21:40:00 Test Item Value Reference Range Comments POC-GLUCOSE METER (BEAKER) 267 mg/dL 70-110 TESTED AT [address] (test fddm=8787) [facility] [address] POCT-GLUCOSE [id number] 17:32:00 Test Item Value Reference Range Comments POC-GLUCOSE METER (BEAKER) 221 mg/dL 70-110 TESTED AT [address] (test lqpz=5479) [facility] [address] HEPATITIS B SURFACE [id number] 14:21:00 Test Item Value Reference Range Comments HEPATITIS B SURFACE ANTIBODY (BEAKER) (test < mIU/mL <8.0 mcjr=532) HEPATITIS B CORE ANTIBODY, [id number] 14:15:00 Test Item Value Reference Range Comments HEPATITIS B CORE TOTAL ANTIBODY (BEAKER) (test Nonreactive Nonreactive ofth=640) POCT-GLUCOSE [id number] 12:18:00 Test Item Value Reference Range Comments POC-GLUCOSE METER (BEAKER) 193 mg/dL 70-110 TESTED AT [address] (test lktz=0113) [facility] [address] RAD, CHEST, 1 VIEW, NON [id number] 08:49:00Reason for exam:->for outpatient HD placementShould this [...] by: SACHI HAMMER on 2016 08:49 AMPOCT-GLUCOSE [id number] 06:53:00 Test Item Value Reference Range Comments POC-GLUCOSE METER (BEAKER) 177 mg/dL 70-110 TESTED AT [address] (test mjyy=9952) [facility] [address] POCT-GLUCOSE [id number] 22:10:00 Test Item Value Reference Range Comments POC-GLUCOSE METER (BEAKER) 109 mg/dL 70-110 TESTED AT [address] (test lhhe=5308) [facility] [address] HEPATITIS B SURFACE [id number] 20:18:00 Test Item Value Reference Range Comments HEPATITIS B SURFACE ANTIGEN (2) (BEAKER) (test Nonreactive Nonreactive kwjc=6694) POCT-GLUCOSE [id number] 17:08:00 Test Item Value Reference Range Comments POC-GLUCOSE METER (BEAKER) 223 mg/dL 70-110 TESTED AT [address] (test qeum=7519) [facility] [address] POCT-GLUCOSE [id number] 12:47:00 Test Item Value Reference Range Comments POC-GLUCOSE METER (BEAKER) 200 mg/dL 70-110 TESTED AT [address] (test wvlp=3223) [facility] [address] ANG, TUNNELED CATHETER [id number] 12:13:00Reason for exam:->renal failureFINAL REPORT Tunneled central [...] the patient's medical record by the nurse. Utility Bag Assembler: Onesimo Lopez MD. Shallot Packer: None. Approach: Right internal jugular vein Estimated [...] needle into the right atrium. A 4 Lao micropuncture sheath was placed. A subcutaneous tunnel was created in the right anterior chest wall by blunt dissection. A 19 cm tipped cuff 15.5 Lao Duraflow 2 catheter was brought through the [...] Lopez Verified Date/Time: 06/09/2017 12:13:36 Reading Location: [facility] Radiology Reading Room 12 :13 PMPOCT-GLUCOSE [id number] 06:03:00 Test Item Value Reference Range Comments POC-GLUCOSE METER (BEAKER) 208 mg/dL 70-110 TESTED AT [facility] [address] [facility] (test dubq=4388) [address] [facility] [address] BASIC METABOLIC [id number] 06:00:00 Test Item Value Reference Range Comments SODIUM (BEAKER) (test 139 meq/L 135-148 lhoo=266) POTASSIUM (BEAKER) (test 3.5 meq/L 3.6-5.5 wecm=624) CHLORIDE (BEAKER) (test 103 meq/L 98-106 yjri=989) CO2 (BEAKER) (test 26 meq/L 20-29 ncrc=681) BLOOD UREA NITROGEN 62 mg/dL 10-26 (BEAKER) (test shxi=492) CREATININE (BEAKER) (test 5.10 mg/dL 0.50-1.20 mhzq=210) GLUCOSE RANDOM (BEAKER) 191 mg/dL 70-110 (test eolp=058) CALCIUM (BEAKER) (test 9.0 mg/dL 8.5-10.5 qprf=829) EGFR (BEAKER) (test 12 mL/min/1.73 sq m ESTIMATED GFR IS NOT nfqs=8259) ACCURATE CREATININE CLEARANCE IN PREDICTING GLOMERULAR FILTRATION RATE. ESTIMATED GFR IS NOT APPLICABLE FOR DIALYSIS PATIENTS. HEPATIC FUNCTION [id number] 05:58:00 Test Item Value Reference Range Comments TOTAL PROTEIN (BEAKER) (test hxky=343) 6.3 gm/dL 6.0-8.5 ALBUMIN (BEAKER) (test vpxy=0796) 3.2 g/dL 3.5-5.0 BILIRUBIN TOTAL (BEAKER) (test mnoy=521) 0.4 mg/dL 0.1-1.2 BILIRUBIN DIRECT (BEAKER) (test niys=377) 0.2 mg/dL 0.0-0.4 ALKALINE PHOSPHATASE (BEAKER) (test fyzn=901) 67 U/L 30-115 AST (SGOT) (BEAKER) (test fhkm=912) 13 U/L 5-40 ALT (SGPT) (BEAKER) (test twvp=792) 10 U/L 5-50 CBC W/PLT COUNT & AUTO [id number] 05:56:00 Test Item Value Reference Range Comments WHITE BLOOD CELL COUNT (BEAKER) (test simm=061) 6.3 K/ L 4.0-10.0 RED BLOOD CELL COUNT (BEAKER) (test uqxd=775) 2.71 M/ L 4.20-5.80 HEMOGLOBIN (BEAKER) (test bovv=874) 7.8 GM/DL 13.0-16.8 HEMATOCRIT (BEAKER) (test mdxa=820) 23.6 % 40.0-50.0 MEAN CORPUSCULAR VOLUME (BEAKER) (test xjnf=925) 86.8 fL 82.0-98.0 MEAN CORPUSCULAR HEMOGLOBIN (BEAKER) (test 28.6 pg 27.0-33.0 nmzd=477) MEAN CORPUSCULAR HEMOGLOBIN CONC (BEAKER) (test 33.0 GM/DL 32.0-36.0 dloo=306) RED CELL DISTRIBUTION WIDTH (BEAKER) (test 14.8 % 10.3-14.2 jvvk=290) PLATELET COUNT (BEAKER) (test icvg=798) 334 K/CU MM 150-430 MEAN PLATELET VOLUME (BEAKER) (test nkas=916) 6.9 fL 6.5-10.5 NUCLEATED RED BLOOD CELLS (BEAKER) (test 0 /100 WBC 0-0 jcko=206) NEUTROPHILS RELATIVE PERCENT (BEAKER) (test 57 % cqpj=387) LYMPHOCYTES RELATIVE PERCENT (BEAKER) (test 19 % cung=038) MONOCYTES RELATIVE PERCENT (BEAKER) (test 15 % vblq=278) EOSINOPHILS RELATIVE PERCENT (BEAKER) (test 7 % osyh=919) BASOPHILS RELATIVE PERCENT (BEAKER) (test 1 % tbom=927) NEUTROPHILS ABSOLUTE COUNT (BEAKER) (test 3.60 K/ L 1.80-8.00 glyk=019) LYMPHOCYTES ABSOLUTE COUNT (BEAKER) (test 1.20 K/ L 1.48-4.50 cnks=587) MONOCYTES ABSOLUTE COUNT (BEAKER) (test 1.00 K/ L 0.00-1.30 iowu=535) EOSINOPHILS ABSOLUTE COUNT (BEAKER) (test 0.50 K/ L 0.00-0.50 qcwj=860) BASOPHILS ABSOLUTE COUNT (BEAKER) (test 0.10 K/ L 0.00-0.20 fres=767) [id number] 05:55:00 Test Item Value Reference Range Comments PHOSPHORUS (BEAKER) (test arpn=604) 4.1 mg/dL 2.5-4.5 [id number] 05:51:00 Test Item Value Reference Range Comments PROTIME (BEAKER) (test noqi=758) 10.7 seconds 9.3-12.0 INR (BEAKER) (test show=646) 1.0 <=5.9 PARTIAL THROMBOPLASTIN TIME (BEAKER) (test 28.5 seconds 23.0-35.0 ozej=321) RECOMMENDED COUMADIN/WARFARIN INR THERAPY RANGESSTANDARD DOSE: 2.0 - 3.0 Includes: PROPHYLAXIS forvenous thrombosis, systemic embolization; TREATMENT for venous thrombosis and/or pulmonary embolus.HIGH RISK: Target INR is 2.5-3.5 for patients with mechanical heart valves.[id number] 05:50:00 Test Item Value Reference Range Comments MAGNESIUM (BEAKER) (test zbsc=707) 1.7 mg/dL 1.5-3.0 POCT-GLUCOSE [id number] 23:14:00 Test Item Value Reference Range Comments POC-GLUCOSE METER (BEAKER) 230 mg/dL 70-110 TESTED AT [facility] [address] [place] [address] (test elsk=0948) [facility] [address]
[2018-10-16] MEDS ORDERED: ASPIRIN 81 MG CHEWABLE TABLET ONE (00:31)
[2018-10-16] MEDS ORDERED: MORPHINE 4 MG/ML SYR ONE (00:32)
[2018-10-16] MEDS ORDERED: NITROGLYCERIN 0.4 MG/TAB SL ONE (00:32)
[2018-10-16 00:41] LABS: Absolute Lymphocytes (CBC) 0.6 K/uL (0.7-4.9); Absolute Monocytes 0.7 K/uL (0.1-1.3); Absolute Neutrophil 5.9 K/uL (1.8-8.0); Basophils % 0.8 % (0-1.3); Eosinophils % 8.2 % (0-4.4); Hematocrit 34.8 % (39.6-49.0); Lymphocytes % 7.1 % (15.3-44.8); Monocytes % 8.3 % (3.3-12.3); RBC Red Blood Cell Count 3.78 M/uL (4.33-5.43)
[2018-10-16 01:07] LABS: Potassium 4.1 mmol/L (3.5-5.1); Troponin (Emerg Dept Use Only) 0.07 ng/mL (0.0-0.045)
--- NOTE | 2018-10-16 01:30 | EDPHYS ---
Physician Documentation [facility] Name: Yusuf Bah Age: 53 yrs Sex: Male : 1965 Arrival Date: 10/15/2018 Time: 23:42 Bed 19 Private MD: Garo Chavarria ED Physician Jose Luis Meek HPI: 10/16 00:22 This 53 yrs old Male presents to ER via Wheelchair with complaints of Chest rn Pain. 00:22 The patient or guardian reports chest pain that is located primarily in the substernal rn area. Onset: 2 hour(s) ago. The pain radiates to the left shoulder. The chest pain is described as a pressure, squeezing. Duration: The patient or guardian reports a single episode, that is still ongoing. Severity of pain: At its worst the pain was moderate in the emergency department the pain has improved. The patient has experienced similar episodes in the past. Reports known CAD, has small vessel disease, and not candidate for stent or bypass, has appt for transplant eval soon, reports took nitro with some relief but returned. Reports this pain worse than his normal chest pain episodes. . Historical: - Allergies: 00:13 Sulfa (Sulfonamide Antibiotics); bb - Home Meds: 00:13 amlodipine 10 mg tab 1 tab once daily [Active]; furosemide 40 mg Oral tab 1 tab 2 times bb per day [Active]; sertraline 50 mg Oral tab 1 tab once daily [Active]; atorvastatin 80 mg Oral tab 1 tab once daily [Active]; Plavix 75 mg Oral tab 1 tab once daily [Active]; Stool Softener 100 mg Oral tab 1 tab 2 times per day [Active]; Ranexa 1,000 mg Oral Tb12 1 tab daily [Active]; metoprolol tartrate 100 mg Oral tab 1 tab 2 times per day [Active]; hydralazine 25 mg Oral tab 3 tab 2 times per day [Active]; aspirin 325 mg Oral tab 1 tab once daily [Active]; famotidine 40 mg Oral tab 1 tab once daily [Active]; clonidine HCl 0.1 mg Oral tab 1 tab 3 times per day [Active]; Ambien 5 mg Oral tab 1 tab once daily [Active]; [place] 7.5-325 mg Oral tab 1 tab twice a day [Active]; Humalog Sub-Q per insulin pump [Active]; Travatan Z 0.004 % ophthalmic drop 1 drop once daily [Active]; Nitrostat 0.4 mg SL subl 1 tab every 5 minutes [Active]; nitroglycerin 0.2 mg/hr Topical pt24 1 patch as needed [Active]; Zofran (as hydrochloride) 4 mg Oral tab 1 tabs every 6 hours [Active]; promethazine 25 mg Oral tab 1 tab every 8 hours [Active]; lactulose 10 gram/15 mL Oral soln 30 mL once daily [Active]; amitriptyline 10 mg Oral tab 1 tab daily [Active]; metolazone 5 mg oral tab 1 tab once daily [Active]; Auryxia 210 mg iron oral tab 2 tabs 3 times per day [Active]; - PMHx: 00:13 Angina; CAD; Depression; Diabetes - IDDM; Dialysis; GERD; Glaucoma; High Cholesterol; bb Hypertension; Renal Disease; Small vessle disease of the heart; - PSHx: 00:13 Cholecystectomy; Appendectomy; shoulder; bb - Immunization history:: Adult Immunizations up to date. - Social history:: Smoking status: unknown. - Ebola Screening: : No symptoms or risks identified at this time. - Family history:: not pertinent. - Hospitalizations: : No recent hospitalization is reported. ROS: 00:22 Constitutional: Negative for fever, chills, and weight loss, Eyes: Negative for injury, rn pain, redness, and discharge, Neck: Negative for injury, pain, and swelling, Cardiovascular: Negative for palpitations, and edema, Respiratory: Negative for shortness of breath, cough, wheezing, and pleuritic chest pain, Abdomen/GI: Negative for abdominal pain, diarrhea, and constipation, MS/Extremity: Negative for injury and deformity, Skin: Negative for injury, rash, and discoloration, Neuro: Negative for headache, weakness, numbness, tingling, and seizure. Exam: 00:22 Constitutional: This is a well developed, well nourished patient who is awake, alert, rn appears anxious Head/Face: Normocephalic, atraumatic. Eyes: Pupils equal round and reactive to light, extra-ocular motions intact. Lids and lashes normal. Conjunctiva and sclera are non-icteric and not injected. Cornea within normal limits. Periorbital areas with no swelling, redness, or edema. ENT: MMM Cardiovascular: Regular rate and rhythm. No pulse deficits. Respiratory: Lungs have equal breath sounds bilaterally, clear to auscultation. No increased work of breathing, no retractions or nasal flaring. Abdomen/GI: soft, non-tender MS/ Extremity: Pulses equal, no cyanosis. Neurovascular intact. Full, normal range of motion. Equal circumference. Vital Signs: 00:13 BP 181 / 83; Pulse 95; Resp 16 S; Temp 98.8(O); Pulse Ox 91% on R/A; Weight 97.52 kg bb (R); Height 6 ft. 3 in. (190.50 cm) (R); Pain 9/10; 01:15 BP 185 / 91; Pulse 89; Resp 17 S; Pulse Ox 99% on 2 lpm NC; Pain 4/10; cc3 02:04 BP 178 / 85; Pulse 86; Resp 14 S; Pulse Ox 100% on 2 lpm NC; cc3 00:13 Body Mass Index 26.87 (97.52 kg, 190.50 cm) bb MDM: 00:02 Patient medically screened. rn 01:25 Differential diagnosis: acute myocardial infarction, acute pericarditis, coronary rn artery disease pleurisy, pneumothorax, pulmonary embolus, stable angina, unstable angina. The patient was given aspirin in the Emergency Department. Data reviewed: vital signs, nurses notes, lab test result(s), EKG, radiologic studies, plain films, and as a result, I will admit patient. Counseling: I had a detailed discussion with the patient and/or guardian regarding: the historical points, exam findings, and any diagnostic results supporting the discharge/admit diagnosis, lab results, radiology results, the need for further work-up and treatment in the hospital. Response to treatment: the patient's symptoms have markedly improved after treatment, and as a result, I will admit patient. Admission orders: after a detailed discussion of the patient's condition and case, the admit orders are written by me. ED course: Elevated troponin, mild, most likely 2/2 pulmonary edema/ESRD, will admit for serial markers to differentiate volume overload as cause vs cardiac ischemia, chest pain improved. . 02:07 ED course: Called Dr. Munoz \T\ [id number], he is covering for internists/Dr. Chavarria, no rn answer, message left. Orders placed, consult for cardiology placed.. 10/16 00:02 Order name: Basic Metabolic Panel rn 10/16 00:02 Order name: CBC with Diff rn 10/16 00:02 Order name: NT PRO-BNP rn 10/16 00:02 Order name: Troponin (emerg Dept Use Only) rn 10/16 00:43 Order name: CBC with Automated Diff; Complete Time: 00:56 EDMS 10/16 01:10 Order name: Basic Metabolic Panel; Complete Time: 01:24 EDMS 10/16 00:02 Order name: XRAY Chest (1 view) rn 10/16 00:02 Order name: EKG; Complete Time: 00:04 rn 10/16 00:02 Order name: Cardiac monitoring; Complete Time: 00:39 rn 10/16 00:02 Order name: EKG - Nurse/Tech; Complete Time: 00:39 rn 10/16 01:10 Order name: Troponin (Emerg Dept Use Only); Complete Time: 01:24 EDMS 10/16 00:02 Order name: IV Saline Lock; Complete Time: 00:39 rn 10/16 00:02 Order name: Labs collected and sent; Complete Time: 00:39 rn 10/16 00:02 Order name: O2 Per Protocol; Complete Time: 00:40 rn 10/16 00:02 Order name: O2 Sat Monitoring; Complete Time: 00:40 rn Administered Medications: 00:15 Drug: Aspirin Chewable Tablet 324 mg Route: PO; cc3 01:00 Follow up: Response: No adverse reaction; Pain is decreased cc3 00:20 Drug: Nitroglycerin 0.4 mg Route: Sublingual; cc3 01:00 Follow up: Response: No adverse reaction; Pain is decreased cc3 00:25 Drug: morphine 4 mg Route: IVP; Site: left hand; cc3 01:00 Follow up: Response: No adverse reaction; Pain is decreased cc3 Disposition: 10/16/18 01:29 Hospitalization ordered by Garo Chavarria for Inpatient Admission. Preliminary diagnosis are Chest pain, unspecified, End stage renal disease, Pulmonary edema, Unspecified combined systolic (congestive) and diastolic (congestive) heart failure. - Bed requested for Telemetry/MedSurg (Inpatient). - Status is Inpatient Admission. cc3 - Condition is Stable. - Problem is new. - Symptoms have improved. UTI on Admission? No Signatures: Dispatcher [employer] Deborah Mccracken RN RN Jose Luis Meek MD MD rn Garcia, Cindy, RN RN cg Cordel, Charlene cc3 Corrections: (The following items were deleted from the chart) 01:59 01:29 Hospitalization Ordered by Garo Chavarria MD for Inpatient Admission. Preliminary cg diagnosis is Chest pain, unspecified; End stage renal disease; Pulmonary edema; Unspecified combined systolic (congestive) and diastolic (congestive) heart failure. Bed requested for Telemetry/MedSurg (Inpatient). Status is Inpatient Admission. Condition is Stable. Problem is new. Symptoms have improved. UTI on Admission? No. rn 02:56 01:59 10/16/2018 01:29 Hospitalization Ordered by Garo Chavarria MD for Inpatient cc3 Admission. Preliminary diagnosis is Chest pain, unspecified; End stage renal disease; Pulmonary edema; Unspecified combined systolic (congestive) and diastolic (congestive) heart failure. Bed requested for Telemetry/MedSurg (Inpatient). Status is Inpatient Admission. Condition is Stable. Problem is new. Symptoms have improved. UTI on Admission? No. cg
--- NOTE | 2018-10-16 01:30 | ER ---
Nurse's Notes [facility] Name: Yusuf Bah Age: 53 yrs Sex: Male : 1965 Arrival Date: 10/15/2018 Time: 23:42 Bed 19 Private MD: Garo Chavarria Diagnosis: Chest pain, unspecified;End stage renal disease;Pulmonary edema;Unspecified combined systolic (congestive) and diastolic (congestive) heart failure Presentation: 10/16 00:00 Presenting complaint: Patient states: he started having chest pain radiating down his bb left arm 2 hours ago with shortness of breath, pt states he has small vessel disease and has chest pain but it is different this time it feels like pressure on his chest and pain is 9/10. Transition of care: patient was not received from another setting of care. Onset of symptoms was October 15, 2018. Risk Assessment: Do you want to hurt yourself or someone else? Patient reports no desire to harm self or others. Initial Sepsis Screen: Does the patient meet any 2 criteria? No. Patient's initial sepsis screen is negative. Does the patient have a suspected source of infection? No. Patient's initial sepsis screen is negative. Care prior to arrival: nitro patch. 00:00 Method Of Arrival: Wheelchair bb 00:00 Acuity: ALVRETO 2 bb Triage Assessment: 00:06 General: Appears in no apparent distress. uncomfortable, Behavior is calm, cooperative, cc3 appropriate for age. Pain: Complains of pain in chest mostly on the left Pain currently is 10 out of 10 on a pain scale. Quality of pain is described as pressure. EENT: No signs and/or symptoms were reported regarding the EENT system. Neuro: Level of Consciousness is awake, alert, obeys commands, Oriented to person, place, time, situation, Appropriate for age. Cardiovascular: Reports chest pain. Respiratory: Airway is patent Respiratory effort is even, unlabored, Respiratory pattern is regular, symmetrical. GI: Abdomen is round. : No signs and/or symptoms were reported regarding the genitourinary system. Derm: No signs and/or symptoms reported regarding the dermatologic system. Musculoskeletal: Circulation, motion, and sensation intact. Range of motion: intact in all extremities. 00:06 General: nitro patch noted to his left upper arm which the patient put at around 2000H cc3 at home.. Historical: - Allergies: 00:13 Sulfa (Sulfonamide Antibiotics); bb - Home Meds: 00:13 amlodipine 10 mg tab 1 tab once daily [Active]; furosemide 40 mg Oral tab 1 tab 2 times bb per day [Active]; sertraline 50 mg Oral tab 1 tab once daily [Active]; atorvastatin 80 mg Oral tab 1 tab once daily [Active]; Plavix 75 mg Oral tab 1 tab once daily [Active]; Stool Softener 100 mg Oral tab 1 tab 2 times per day [Active]; Ranexa 1,000 mg Oral Tb12 1 tab daily [Active]; metoprolol tartrate 100 mg Oral tab 1 tab 2 times per day [Active]; hydralazine 25 mg Oral tab 3 tab 2 times per day [Active]; aspirin 325 mg Oral tab 1 tab once daily [Active]; famotidine 40 mg Oral tab 1 tab once daily [Active]; clonidine HCl 0.1 mg Oral tab 1 tab 3 times per day [Active]; Ambien 5 mg Oral tab 1 tab once daily [Active]; [place] 7.5-325 mg Oral tab 1 tab twice a day [Active]; Humalog Sub-Q per insulin pump [Active]; Travatan Z 0.004 % ophthalmic drop 1 drop once daily [Active]; Nitrostat 0.4 mg SL subl 1 tab every 5 minutes [Active]; nitroglycerin 0.2 mg/hr Topical pt24 1 patch as needed [Active]; Zofran (as hydrochloride) 4 mg Oral tab 1 tabs every 6 hours [Active]; promethazine 25 mg Oral tab 1 tab every 8 hours [Active]; lactulose 10 gram/15 mL Oral soln 30 mL once daily [Active]; amitriptyline 10 mg Oral tab 1 tab daily [Active]; metolazone 5 mg oral tab 1 tab once daily [Active]; Auryxia 210 mg iron oral tab 2 tabs 3 times per day [Active]; - PMHx: 00:13 Angina; CAD; Depression; Diabetes - IDDM; Dialysis; GERD; Glaucoma; High Cholesterol; bb Hypertension; Renal Disease; Small vessle disease of the heart; - PSHx: 00:13 Cholecystectomy; Appendectomy; shoulder; bb - Immunization history:: Adult Immunizations up to date. - Social history:: Smoking status: unknown. - Ebola Screening: : No symptoms or risks identified at this time. - Family history:: not pertinent. - Hospitalizations: : No recent hospitalization is reported. Screenin:06 Abuse screen: Denies threats or abuse. Denies injuries from another. Nutritional cc3 screening: No deficits noted. Tuberculosis screening: No symptoms or risk factors identified. Fall Risk Ambulatory Aid- None/Bed Rest/Nurse Assist (0 pts). Gait- Normal/Bed Rest/Wheelchair (0 pts) Mental Status- Oriented to own ability (0 pts). Assessment: 00:06 Pain: Pain radiates to left arm Quality of pain is described as pressure, Pain began 2 cc3 hours ago. 01:00 Reassessment: Patient appears in no apparent distress at this time. Patient and/or cc3 family updated on plan of care and expected duration. Pain level reassessed. Patient is alert, oriented x 3, equal unlabored respirations, skin warm/dry/pink. Patient said his chest pain was decreased with NRS of 4/10. 01:10 Reassessment: Patient appears in no apparent distress at this time. Patient and/or cc3 family updated on plan of care and expected duration. Pain level reassessed. Patient is alert, oriented x 3, equal unlabored respirations, skin warm/dry/pink. Laboratory staff named Aurea Mar called and relayed critical result for creatinine of 8.16 Dr. Meek informed. 02:05 Reassessment: Patient appears in no apparent distress at this time. Patient and/or cc3 family updated on plan of care and expected duration. Pain level reassessed. Patient is alert, oriented x 3, equal unlabored respirations, skin warm/dry/pink. Patient for admission, room available in 225, called for report but was told by charge nurse Olivia that the nurse who will receive the patient will just call me back. Patient states feeling better. Patient states symptoms have improved. 02:40 Reassessment: Patient appears in no apparent distress at this time. Patient and/or cc3 family updated on plan of care and expected duration. Pain level reassessed. Patient is alert, oriented x 3, equal unlabored respirations, skin warm/dry/pink. LUIZ Rose called and report given to her for continuity of care and management. 02:50 Reassessment: Patient left ER for admission vitally stable by wheelchair on oxygen cc3 therapy escorted by aviation survival technician Yael and the patient's . Patient denies pain at this time. Patient states feeling better. Patient states symptoms have improved. Vital Signs: 00:13 BP 181 / 83; Pulse 95; Resp 16 S; Temp 98.8(O); Pulse Ox 91% on R/A; Weight 97.52 kg bb (R); Height 6 ft. 3 in. (190.50 cm) (R); Pain 9/10; 01:15 BP 185 / 91; Pulse 89; Resp 17 S; Pulse Ox 99% on 2 lpm NC; Pain 4/10; cc3 02:04 BP 178 / 85; Pulse 86; Resp 14 S; Pulse Ox 100% on 2 lpm NC; cc3 00:13 Body Mass Index 26.87 (97.52 kg, 190.50 cm) bb ED Course: 10/15 23:42 Patient arrived in ED. es 23:42 Garo Chavarria MD is Private Physician. es 10/16 00:02 Jose Luis Meek MD is Attending Physician. rn 00:06 Elodia Macdonald is Primary Nurse. cc3 00:06 Patient has correct armband on for positive identification. Placed in gown. Bed in low cc3 position. Call light in reach. Side rails up X2. produce inspector on. Pulse ox on. NIBP on. 00:06 Oxygen administration via nasal cannula \T\ 2L/min. cc3 00:07 Triage completed. bb 00:13 Arm band placed on Patient placed in an exam room, on a stretcher, on oxygen, on bb corporate treasurer, on pulse oximetry. EKG completed in triage. Results shown to MD. Family accompanied patient. 00:16 X-ray completed. Portable x-ray completed in exam room. Patient tolerated procedure kw well. 00:20 Inserted saline lock: 20 gauge in left hand, using aseptic technique. Blood collected. cc3 01:26 Garo Chavarria MD is Hospitalizing Provider. rn 02:50 No provider procedures requiring assistance completed. Patient admitted, IV remains in cc3 place. Administered Medications: 00:15 Drug: Aspirin Chewable Tablet 324 mg Route: PO; cc3 01:00 Follow up: Response: No adverse reaction; Pain is decreased cc3 00:20 Drug: Nitroglycerin 0.4 mg Route: Sublingual; cc3 01:00 Follow up: Response: No adverse reaction; Pain is decreased cc3 00:25 Drug: morphine 4 mg Route: IVP; Site: left hand; cc3 01:00 Follow up: Response: No adverse reaction; Pain is decreased cc3 Outcome: 01:29 Decision to Hospitalize by Provider. rn 02:50 Admitted to Med/surg accompanied by tech, family with patient, via wheelchair, room cc3 225, with oxygen, with chart, Report called to LUIZ Rose 02:50 Condition: stable 02:50 Instructed on the need for admit, Demonstrated understanding of instructions. 02:56 Patient left the ED. cc3 Signatures: Kae Daugherty Brenda, RN RN bb Nieto, Roman, MD MD rn Whitley, Kimberlee kw Cordel, Charlene cc3 Corrections: (The following items were deleted from the chart) 02:17 01:10 Reassessment: Patient appears in no apparent distress at this time. Patient cc3 and/or family updated on plan of care and expected duration. Pain level reassessed. Patient is alert, oriented x 3, equal unlabored respirations, skin warm/dry/pink. Laboratory staff named Aurea Mar called and relayed critical result for creatinine of 8.16 Dr. Meek informed. cc3 02:19 01:15 BP 185 / 91; Pulse 89bpm; Resp 17bpm; Spontaneous; Pulse Ox 99% 2 lpm Nasal cc3 Cannula; cc3
[2018-10-16] MEDS ORDERED: ONDANSETRON 4 MG/2 ML VIAL IV PRN (03:15)
[2018-10-16] MEDS: MORPHINE 4 MG/ML SYR IV PRN ×2 (04:12→14:14)
[2018-10-16 04:44] LABS: Urine Appearance CLOUDY; Urine Bilirubin NEGATIVE (NEG); Urine Blood TRACE (NEG); Urine Color DK YELLOW; Urine Glucose 1+ (NEG); Urine Protein 3+ (NEG); Urine Urobilinogen 0.2 mg/dL (0.2-1.0); Urine pH 5.5 (5.0-7.0)
[2018-10-16 05:20] LABS: Urine Microscopic Reflex ORDER UMIC
[2018-10-16 05:24] LABS: Urine Amorphous Sediment 1+ /HPF (NONE SEEN); Urine Bacteria <20 /HPF (NONE SEEN); Urine Culture Reflex Order NOT NEEDED
[2018-10-16] MEDS ORDERED: cloNIDine HCl 0.1 MG TAB PO PRN (05:38)
[2018-10-16] MEDS ORDERED: ONDANSETRON 4 MG (ODT) TAB PO PRN (05:38)
[2018-10-16] MEDS ORDERED: PROMETHAZINE 25 MG TABLET PO PRN (05:38)
[2018-10-16] MEDS ORDERED: ZOLPIDEM TARTRATE 5 MG TABLET PO PRN (05:38)
[2018-10-16] MEDS ORDERED: NITROGLYCERIN 0.4 MG/TAB SL PRN (05:38)
[2018-10-16 05:40] VITALS: BMI 26.9
[2018-10-16] MEDS ORDERED: FERRIC CITRATE 420 MG PO SCH (05:45)
[2018-10-16] MEDS ORDERED: METOLAZONE 5 MG TABLET PO SCH (06:00)
[2018-10-16 06:12] VITALS: O2SAT 96
--- NOTE | 2018-10-16 08:22 | RAD REPORT ---
EXAM DESCRIPTION: RAD - Chest Single View - 10/16/2018 12:17 am CLINICAL HISTORY: CHEST PAIN Chest pain. COMPARISON: Chest Single View dated 09/03/2018; Chest Single View dated 06/21/2018; Chest Single View d ated 04/29/2018; Chest Single View dated 04/28/2018 FINDINGS: Portable technique limits examination quality. Moderate bilateral pulmonary opacities are present, likely representing pulmonary edema. The heart is significantly enlarged in size. No displaced fractures. IMPRESSION: Moderate CHF versus volume overload.
[2018-10-16] MEDS: HYDROCODONE/APAP 7.5/325 MG TAB PO SCH ×2 (08:34→14:00)
--- NOTE | 2018-10-16 08:45 | EKG ---
Test Date: 2018-10-15 Test Time: 23:54:19 Telephone Ad Taker: JEFFY MEASUREMENT RESULTS: Intervals: Rate: 96 SC: 182 QRSD: 100 QT: 356 QTc: 449 [place]: P: 41 SC: 182 QRS: -30 T: 117 INTERPRETIVE STATEMENTS: Normal sinus rhythm Left axis deviation Cannot rule out Anterior infarct, age undetermined ST & T wave abnormality, consider lateral ischemia Abnormal ECG Compared to ECG 09/04/2018 08:22:41 Left-axis deviation now present ST (T wave) deviation now present T-wave abnormality no longer present Myocardial infarct finding still present Possible ischemia still present Electronically Signed On 10-16-18 08:45:07 CDT by Kevin Esqueda
[2018-10-16] MEDS ORDERED: SERTRALINE HCL 50 MG TAB PO SCH (09:00)
[2018-10-16] MEDS ORDERED: DOCUSATE NA/SENNA CONC 1 TAB PO SCH (09:00)
[2018-10-16] MEDS ORDERED: ASPIRIN EC 81 MG TAB PO SCH (09:00)
[2018-10-16] MEDS ORDERED: HYDRALAZINE HCL 25 MG TABLET PO SCH (09:00)
[2018-10-16] MEDS ORDERED: CLOPIDOGREL 75 MG TABLET PO SCH (09:00)
[2018-10-16] MEDS ORDERED: FUROSEMIDE 40 MG TABLET PO SCH (09:00)
[2018-10-16] MEDS ORDERED: LACTULOSE 20 GM/30 ML UCUP PO SCH (09:00)
[2018-10-16] MEDS ORDERED: ATORVASTATIN 80 MG TAB PO SCH (09:00)
[2018-10-16] MEDS ORDERED: METOPROLOL TAR 50 MG TAB PO SCH (09:00)
[2018-10-16] MEDS ORDERED: AMLODIPINE 10 MG TAB PO SCH (09:00)
--- NOTE | 2018-10-16 11:53 | CON ---
History Of Present Illness: Mr. Bah is a gentleman with end-stage heart disease, end-stage renal d isease. He is being evaluated by the transplant team at [facility] for combined heart and kidney silva splant. He has inoperable CAD. His arteries are the size of large hairs much less than 1 mm diamete r when they should be 3.5 to 4 mm. There was no option for bypass surgery or stents. We have been t rying to treat him medically in spite of our efforts, he is in our hospital every month or more often with angina. This is not much different from other episodes. He says the pain might be slightly di fferent. His troponin is 0.66. His creatinine is 8.16. His hemoglobin is 11.3. Outpatient Medications: Zolpidem, Travatan, sertraline, Ranexa 1000 b.i.d., nitroglycerin patch, nit roglycerin sublingual, metoprolol 100 b.i.d., hydralazine 25 b.i.d., Lasix 40 b.i.d., Pepcid, Plavix, clonidine, atorvastatin 80, aspirin 325, amlodipine 10, promethazine, Zofran, sennosides, lactulose, metolazone, amitriptyline, hydrocodone, and ferric citrate. Physical Examination: General: 6 feet 3 inches. 215 Pounds. LUNGS: No wheezes or crackles. Heart: S4 gallop. No significant murmur. Abdomen: Soft. Extremities: Trace edema. Distal pulses diminished. Impression: My impression is that Mr. Bah has severe heart disease. He has been offered to do a c ardiac cath and see if there is some hope, perhaps left main stent would help him do better. I am no t sure, but now that he is on the transplant team being evaluated, will let that be done by the docto rs that are evaluating him for transplant at [facility]. There is a very slight possibility that a st ent would help him. We do not have much room to increase any medications for angina and we will just do our best to treat his angina with increasing nitrates and narcotics. DANA/PHUONGL Voice ID: [id number] Report ID: [id number]
[2018-10-16] MEDS ORDERED: PROMETHAZINE 25 MG/ML VIAL IV PRN (16:07)
[2018-10-16 16:46] VITALS: BP 148/76; TEMP 97.3
[2018-10-16] MEDS ORDERED: FAMOTIDINE 20 MG TAB PO SCH (21:00)
[2018-10-16] MEDS ORDERED: AMITRIPTYLINE 10 MG TAB PO SCH (21:00)
[2018-10-16] MEDS ORDERED: HOME MED 1 EA UNK (Travoprost (Benzalkonium) [Travatan 0.004% Eye Drop] 1 DROP) EACH EYE SCH (21:00)
--- NOTE | 2018-10-17 02:24 | CON ---
Date of Consultation: 10/16/2018 Chief Complaint: End-stage renal disease, on dialysis. History Of Present Illness: The patient has multiple medical problems including end-stage heart disease, end-stage renal disease. He is dialysis dependent. He has been evaluated by the transplant team at [facility] for combined heart and kidney transplant. He has severe coronary artery disease. The patient came to the hospital because of chest pain, shortness of breath. He was found to have interstitial pulmonary edema. He was ruled out for acute coronary syndrome and financial brokers was evaluating the patient. Review of Systems: Constitutional: Complains of generalized weakness. Eyes: Denies vision changes. Ears, Nose, Mouth, and Throat: Denies sore throat or earache. Respiratory: Denies orthopnea, although he has dyspnea on exertion and PND. GI: Denies nausea or vomiting. : Denies dysuria or hematuria. Musculoskeletal: Denies muscle aches or joint swelling. All other systems reviewed and all are negative. Past Medical History: Multiple medical problems including coronary artery disease, hypertension, hyperlipidemia, renal osteodystrophy, anemia of CKD, end- stage renal disease, diabetes mellitus, diabetic kidney disease, peripheral neuropathy, diabetic gastroparesis. Social History: Denies tobacco, alcohol, or illicit drugs. Family History: No kidney disease in the family. Physical Examination: General: The patient is awake, alert, follows commands. Eyes: Anicteric sclerae. EOMI. Ears, Nose, Mouth, and Throat: Oral mucosa moist. No pallor. Neck: Supple. No bruits. Lungs: Crackles bilaterally present. Heart: S1, S2. RRR Abdomen: Soft, benign. No rebound Extremities: Edema present in both lower extremities Neurologic: Moving extremities. Cranial nerves intact. Psychiatric: Alert and oriented x3. Normal affect. Impression And Plan: 1. Coronary artery disease, congestive heart failure, fluid overload. The patient will have dialysis to control volemia. Monitor electrolytes. Adjust dialysis parameters. 2. Hypertension. Advance blood pressure medication. Continue beta-hayes for congestive heart failure. 3. Renal osteodystrophy. Continue renal diet and binders. 4. Anemia of chronic kidney disease. Monitor hemoglobin level. Adjust GATO. 5. Diabetes mellitus. Continue insulin. EB/MODL Voice ID: [id number] Report ID: [id number]
--- NOTE | 2018-10-17 06:15 | HP ---
Date of Admission: 10/16/2018 Chief Complaint: Chest pain. 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 Also has multiple chronic health problems. Per recommendation f rajni chainstitch felled seam operator, patient recently reached out to cardiac transplant team in [place] at [facility] and the patient says that he has been in communication with this team and is in process of scheduling his first appointment. Meanwhile, he ended up in our emergency room with complaints of chest pain. Describes chest pain as present in the center of the chest radiating to left shoulder, left arm area, associated with some shortness of breath type of feeling and he took one nitroglycerin and pain got relieved, but subsequently pain came back, so he came into emergency room, evaluated in the ER. He was admitted to the hospital. I saw him this morning. He was asymptomatic at that time . Medications: List reviewed. Allergies: TO SULFA. Review of Systems: Cardiovascular: As mentioned above. All other systems reviewed and negative. Past Medical History: 1.End-stage renal disease, on hemodialysis. 2.Hypertension. 3.Type 2 diabetes mellitus. 4.Chronic back pain. 5.Coronary artery disease. 6.Anemia due to chronic kidney disease. 7.Hyperlipidemia. 8.Gastritis. Past Surgical History: 1.Laparoscopic cholecystectomy. 2.Dialysis. 3.Shunt placement in form of AV graft placement. 4.Rotator cuff repair. 5.Appendectomy. 6.Eye surgery. Family History: Significant for, 1.Throat cancer. 2.Tuberculosis. 3.Hypertension. 4.Diabetes mellitus. Social History: Negative for smoking and alcohol use. Physical Examination: Vital Signs: Temperature 98.5, pulse 87, respiratory rate 20, blood pressure 178/84, oxygen saturati on 96%. Height 6 feet 3 inches, weight 215 pounds. General: Awake, alert, oriented, not in distress. HEENT: Head atraumatic, normocephalic. Conjunctivae nonerythematous. Sclerae white. Mouth, no thr ush or edema noted. Ears/Nose, no mass, lesion, discharge noted. Neck: Supple. No JVD, lymph nodes, bruit, thyromegaly noted. Lungs: Bilateral good equal air entry. Clear to auscultation. No rhonchi. No rales. Heart: Normal heart sounds, no murmur or gallop. Abdomen: Soft, bowel sounds normal. No guarding, rigidity, tenderness, mass, hepatosplenomegaly, dis tention, or bruit noted. Extremities: No leg edema. No calf tenderness. Skin: No rash, ulcer, cellulitis. Lymphatics: No lymph node enlargement in neck, supraclavicular, infraclavicular region. Neuro: No focal neurological deficit. Chest: Unremarkable. External Genitalia: Deferred. Rectal: Deferred. Laboratory Data: White count 7.8, hemoglobin 11.3, and platelets 268,000. Sodium 140, potassium 4.1 , chloride 105, bicarb 23, BUN 54, creatinine 8.16, and glucose 213. Troponin first one 0.07 and sec ond one 0.66. Chest x-ray reviewed. EKG, no acute ST-T changes. Hospital Course: After I saw him, Cardiology consultation was obtained and Nephrology consultation w as obtained. The patient was due to have dialysis today and he did have dialysis during the course o day today. Forest Pathologist has not recommended any further intervention here and for the patient to reed branonn to follow up with the heart transplant team in [place] for further management. 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 The patient was enco uraged to follow up with his Heart Transplant Team in [place]. Final Diagnoses: 1.Angina. 2.Coronary artery disease. 3.End-stage renal disease, on hemodialysis. 4.Anemia due to chronic kidney disease. 5.Hypertension. 6.Hyperlipidemia. 7.Type 2 diabetes mellitus. 8.Chronic back pain. 9.Anemia due to chronic kidney disease. 10.Gastritis. Discharge Medications And Instructions: 1.Continue prior home medication. 2.Follow up with heart transplant team in [place] per appointment. 3.Follow up at my office per scheduled appointment. ERNESTO/MODL Voice ID: [id number]
[2018-10-19 03:12] LABS: HBsAG Nonreactive (Nonreactive)
== END 2018-10-16 20:43 | disposition home or self-care (01) ==
LOC: ER 23:40 → INTOOBSV 10-16 01:30 → ERHOLD 10-16 01:30 → 2ND 10-16 02:45
PROVIDERS: ADMIT Internal Medicine; ATTEND Internal Medicine
PROC: 5A1D70Z Performance of Urinary Filtration, Intermittent, Less than 6 Hours Per Day (ICD-10-PCS; principal; 2018-10-16)
DX: I25.119 Atherosclerotic heart disease of native coronary artery with unspecified angina pectoris (principal); I12.0 Hypertensive chronic kidney disease with stage 5 chronic kidney disease or end stage renal disease; E11.22 Type 2 diabetes mellitus with diabetic chronic kidney disease; N18.6 End stage renal disease; Z99.2 Dependence on renal dialysis; D63.1 Anemia in chronic kidney disease; E78.5 Hyperlipidemia, unspecified; M54.9 Dorsalgia, unspecified; K29.70 Gastritis, unspecified, without bleeding; Z88.2 Allergy status to sulfonamides
CPT/HCPCS: 36415; 71045; 80048; 81003; 81015; 82962; 83880; 84484; 85025; 86704; 86706; 86803; 87340; 90935; 93005; 96374; 99285; G0378; J2405

== ENCOUNTER 2018-10-26 06:16 | Day surgery (SDC) | payer BC, OTHER ==
--- OUTSIDE RECORDS SUMMARY | 2018-10-26 06:18 | XMS REPORT | Clinical Summary ---
:1965 Author Organization [facility] Address [address] [place] [address] Care Team Providers Name Role Phone Garo [...] Hypertension 02/24/2017 Intractable vomiting with nausea 02/24/2017 [id number] kidney injury 02/24/2017 Diabetes mellitus 02/15/2017 Encounters Date Type Specialty Care Team Description 05/25/2018 Anesthesia Event Plastic Surgery Raz Brown 05/25/2018 Surgery Plastic Surgery Daquan Mary AND ARIS Arrington MD INDICATED PROCEDURES, RIGHT EYE 05/25/2018 Hospital Encounter Plastic Surgery Daquan Mary MD after 10/25/2017 Immunizations Name Dates Previously Given Next Due [...] Taken Blood Pressure 136/61 05/25/2018 2:05 PM CASE PACKER AND SEALER Pulse 58 05/25/2018 2:05 PM CASE PACKER AND SEALER Temperature 37.2 C (98.9 F) 05/25/2018 2:05 PM CASE PACKER AND SEALER Respiratory Rate 12 05/25/2018 2:05 PM CASE PACKER AND SEALER Oxygen Saturation 96% 05/25/2018 2:05 PM CASE PACKER AND SEALER Inhaled Oxygen Concentration - - Weight 97.2 kg (214 lb 3 oz) 05/25/2018 11:43 AM CASE PACKER AND SEALER Height 190.5 cm (6' 3") 05/25/2018 11:43 AM CASE PACKER AND SEALER Body Mass Index 26.77 05/25/2018 11:43 AM CASE PACKER AND SEALER Plan of Treatment Health Maintenance Due Date Last Done Comments DIABETIC RETINAL EYE EXAM 1965 DIABETIC FOOT EXAM 1974 COLON CANCER SCREENING 2014 SHINGLES VACCINES (#1) 2014 INFLUENZA VACCINE 01/11/2019 02/11/2017 Procedures Procedure Name Priority Date/Time Associated Diagnosis Comments VITRECTOMY 05/25/2018 1:00 PM CASE PACKER AND SEALER Vitreous hemorrhage of right eye (HCC) Special Needs REQ 1300 START POC PANEL 4 Routine 05/25/2018 12:09 PM CASE PACKER AND SEALER after 10/25/2017 Results POC panel 4 (05/25/2018 12:09 PM CASE PACKER AND SEALER) POC sodium 137 135 - 148 mmol/L [facility] POC potassium 4.3 3.5 - 5.0 mmol/L [facility] POC hematocrit 34 (L) 41 - 51 % [facility] Comment: Meter ID: [id number] Clip Wrapper: Abisai Girard POC glucose 107 (H) 65 - 99 mg/dL [facility] Performing Organization Address City/State/Zipcode Phone Number [facility] DEPARTMENT OF PATHOLOGY AND [address] [place] [address] GENOMIC MEDICINE [facility] [address] [place] [address] after 10/25/2017 Insurance Payer Benefit Plan / Group Subscriber ID Type Phone Address BC AVNI [employer] xxxxxxxxxxxx PPO MEDICARE MEDICARE PART A AND B xxxxxxxxxx Medicare [place], [place] Advance Directives Patient has advance care planning documents on file. For more information, please contact:Naren Castro[address] [place] [address]
--- OUTSIDE RECORDS SUMMARY | 2018-10-26 06:18 | XMS REPORT | Clinical Summary ---
:1965 Author Organization [facility] Address [address] [place] [address] Care Team Providers Name Role Phone Bala [...] Not on file Implants Implanted Type Area Wax Blender Device Shelf Model / Identifier Expiration Serial / Lot Date Cath Peritoneal Dyls 57cm 2cuf [id number] - Sn/A Catheter N/A: COVIDIEN: SHAZIA 02/17/2021 [id number] / Implanted: Qty: 1 on 06/14/2017 by Abdiel Ivory MD Dialysis Abdomen L N/A / Retirement [id number] Results Not on fileafter 10/25/2017 Insurance Payer Benefit Plan / Subscriber ID Type Phone Address Group BLUE CROSS/BLUE [employer] OS xxxxxxxxxxxx PPO [phone] [address] SHIELD POS/PP[place] [address] MEDICARE MEDICARE A B xxxxxxxxxx Medicare Advance Directives For more information, please contact:[address] [phone] Code Status Date Activated Date Inactivated Comments Full Code 06/08/2017 11:37 PM 06/15/2017 8:31 PM This code status was determined by: Patient
--- OUTSIDE RECORDS SUMMARY | 2018-10-26 06:21 | XMS REPORT | Continuity of Care Document ---
:1965 Author Organization Interface Problems Problem Status Onset Classification Date Comments Source Date Reported HTN, ESRD ON Active 06/18/19 [facility] DIALYSIS, EDEMA OF 19 UPPER EX ARM SWELLING Active 06/18/19 [facility] 19 UNK Active 05/25/20 [facility] 18 Hypertensive 05/11/20 09/17/2018 [facility] chronic kidney 18 disease with stage 5 chronic kidney disease or end stage renal disease TESIO RELOCATION Active 04/04/20 [facility] 18 Gastroparesis Active 05/30/20 Finding 06/05/2017 [...] [facility] and vomiting [facility] Sunul-kp-zonitet Active 02/25/20 Finding 06/05/[address] [facility] kidney injury [facility] [place] HTN Active 02/25/20 Finding 06/05/[address] [facility] [facility] Obesity Active 02/25/20 Finding 06/05/[address] [facility] [facility] Diabetes mellitus Active 02/16/20 Finding 06/05/[address] [facility] [facility] Chest pain Active 08/28/19 Finding 06/05/[address] [facility] 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 HTN (<span Active Problem 09/17/2018 [facility] ID="[id number]"> Confirmed</span>) Hyperglycemia Active Finding 06/05/2017 [facility] Uncontrolled Active Finding 06/05/2017 [facility] St[facility] diabetes mellitus [facility] [place] Renal Active Finding 06/05/2017 [facility] St[facility] insufficiency [facility] ESSENTIAL Active [facility] (PRIMARY) HYPERTENSION END STAGE RENAL Active [facility] DISEASE LOCALIZED EDEMA Active [facility] Medications Medication Details Route Status Patient Ordering Order Source Instructions Provider Date Oxycodone 2 tab, Route: Inactive Hydrochloride 5 PO, POST OP, 2017 [facility] MG Oral Tablet Dosing Weight 93.722, kg, Start date: 02/28/18 17:00:00 CDT, Duration: 30 day, Stop date: 03/30/18 16:59:00 CDT Acetaminophen 325 1 tab, Route: Inactive MG / Hydrocodone PO, Dosing 2017 [facility] Bitartrate 10 MG Weight 93.722, Oral Tablet kg, Q4H, PRN Pain Score 4-6, Start date: 02/28/18 15:58:00 CDT, Duration: 30 day, Stop date: 03/30/18 15:57:00 CDT Acetaminophen 325 1 tab, Route: Inactive MG / Hydrocodone PO, Dosing 2018 [facility] Bitartrate 5 MG Weight 93.722, Oral Tablet kg, Q4H, PRN Pain Score 4-6, Start date: 02/28/18 15:58:00 CDT, Duration: 30 day, Stop date: 03/30/18 15:57:00 CDT Hydromorphone 0.5 mg, Route: Inactive IVP, Q5Min, 2017 [facility] Dosing Weight 93.722, kg, PRN Pain Score 7-10, Start date: 02/28/18 15:57:00 CDT, Duration: 4 doses or times, Stop date: Limited # of times Ondansetron 4 mg, Route: Inactive IVP, ONCE, 2017 [facility] Dosing Weight 93.722, kg, PRN Nausea & Vomiting, Start date: 02/28/18 15:57:00 CDT Naloxone 0.4 mg, Route: Inactive IVP, Q2MIN, 2017 [facility] Dosing Weight 93.722, kg, PRN Narcotic Reversal, Start date: 02/28/18 15:57:00 CDT, Duration: 8 doses or times, Stop date: Limited # of times Flumazenil 0.2 mg, Route: Inactive IVP, PRN, 2017 [facility] Dosing Weight 93.722, kg, PRN Benzodiazepine Reversal, Initial dose, Start date: 02/28/18 15:57:00 CDT, Duration: 30 day, Stop date: 03/30/18 15:56:00 CDT midazolam (ANES) Route: IV, Inactive Drug form: 2017 [facility] SOLN, ONCE, Stop date: 02/28/18 15:25:00 CDT propofol (ANES) Route: IV, Inactive Drug form: 2017 [facility] INJ, ONCE, Stop date: 02/28/18 14:52:00 CDT ceFAZolin (ANES) Route: IV, Inactive Drug form: 2017 [facility] INJ, ONCE, Stop date: 02/28/18 14:52:00 CDT lidocaine (ANES) Route: IV, Inactive Drug form: 2017 [facility] INJ, ONCE, Stop date: 02/28/18 14:52:00 CDT fentaNYL (ANES) Route: IV, Inactive Drug form: 2017 [facility] INJ, ONCE, Stop date: 02/28/18 14:52:00 CDT famotidine (ANES) Route: IV, Inactive Drug form: 2017 [facility] INJ, ONCE, Stop date: 02/28/18 14:47:00 CDT metoclopramide Route: IV, Inactive (ANES) Drug form: 2017 [facility] INJ, ONCE, Stop date: 02/28/18 14:47:00 CDT Sodium Chloride Route: IV, Inactive 0.9% IV (ANES) Total Volume: 2017 [facility] 500 mL 500, Start date: 02/28/18 13:50:00 CDT, Stop date: 02/28/18 14:50:00 CDT Reglan 10 mg, Route: Inactive IVP, Drug 2017 [facility] form: INJ, ONCE, Dosing Weight 93.722, kg, Start date: 02/28/18 12:55:00 CDT, Stop date: 02/28/18 12:55:00 CDT Zofran ODT 4 mg, Route: Inactive PO, Drug form: 2017 [facility] TABDIS, ONCE, Dosing Weight 93.722, kg, Start date: 02/28/18 12:29:00 CDT, Stop date: 02/28/18 12:29:00 CDT Calcium Chloride 1,000 mL, Inactive 0.0014 MEQ/ML / Rate: 25 2017 [facility] Potassium ml/hr, Infuse Chloride 0.004 over: 40 hr, MEQ/ML / Sodium Route: IV, Chloride 0.103 Dosing Weight MEQ/ML / Sodium 93.722 kg, Lactate 0.028 Total Volume: MEQ/ML Injectable 1,000, Start Solution date: 02/28/18 10:48:00 CDT, Duration: 30 day, Stop date: 03/30/18 10:47:00 CDT, 2.23, m2 Sodium Chloride 500 mL, Rate: Inactive 0.9% IV 500 mL 25 ml/hr, 2017 [facility] Infuse over: 20 hr, Route: IV, Dosing Weight 93.722 kg, Total Volume: 500, Start date: 02/28/18 10:30:00 CDT, Duration: 1 doses or times, Stop date: 03/01/18 6:29:00 CDT, 2.23, m2 Acetaminophen 1,000 mg, Inactive Route: PO, 2017 [facility] Drug form: TAB, ONCE, Dosing Weight 93.722, kg, PRN Pain Score 1-3, Start date: 02/28/18 10:24:00 CDT Hydralazine 10 mg, Route: Inactive IVP, Q20Min, 2017 [facility] Dosing Weight 93.722, kg, PRN Elevated BP, Start date: 02/28/18 10:24:00 CDT, Duration: 2 doses or times, Stop date: Limited # of times esmolol 10 mg, Route: Inactive IVP, Q5Min, 2017 [facility] Dosing Weight 93.722, kg, PRN Other -See Comment, Start date: 02/28/18 10:24:00 CDT, Duration: 5 doses or times, Stop date: Limited # of times Labetalol 10 mg, Route: Inactive IVP, Q5Min, 2017 [facility] Dosing Weight 93.722, kg, PRN Elevated BP, Start date: 02/28/18 10:24:00 CDT, Duration: 5 doses or times, Stop date: Limited # of times Oxycodone 10 mg, Route: Inactive PO, Drug form: 2017 [facility] TAB, Q4H, Dosing Weight 93.722, kg, PRN Pain Score 7-10, Start date: 02/28/18 10:24:00 CDT, Duration: 30 day, Stop date: 03/30/18 10:23:00 CDT Fentanyl 25 microgram, Inactive Route: IVP, 2017 [facility] Q5Min, Dosing Weight 93.722, kg, PRN Pain Score 4-6, Priority: Routine, Start date: 02/28/18 10:24:00 CDT, Duration: 4 doses or times, Stop date: Limited # of times Diphenhydramine 12.5 mg, Inactive Route: IVP, 2017 [facility] Drug form: INJ, Q6H, Dosing Weight 93.722, kg, PRN Itching, Start date: 02/28/18 10:24:00 CDT, Duration: 30 day, Stop date: 03/30/18 10:23:00 CDT Albuterol 0.83 2.49 mg, Inactive MG/ML Inhalant Route: NEB, 2018 [facility] Solution Q20Min, Dosing Weight 93.722, kg, PRN Wheezing, Priority: STAT, Start date: 02/28/18 10:24:00 CDT, Duration: 30 day, Stop date: 03/30/18 10:23:00 CDT Flumazenil 0.2 mg, Route: Inactive IVP, PRN, 2017 [facility] Dosing Weight 93.722, kg, PRN Benzodiazepine Reversal, Initial dose, Start date: 02/28/18 10:24:00 CDT, Duration: 30 day, Stop date: 03/30/18 10:23:00 CDT Naloxone 0.4 mg, Route: Inactive IVP, Q2MIN, 2017 [facility] Dosing Weight 93.722, kg, PRN Narcotic Reversal, Start date: 02/28/18 10:24:00 CDT, Duration: 8 doses or times, Stop date: Limited # of times Ondansetron 4 mg, Route: Inactive IVP, ONCE, 2017 [facility] Dosing Weight 93.722, kg, PRN Nausea & Vomiting, Start date: 02/28/18 10:24:00 CDT Meperidine 12.5 mg, Inactive Route: IVP, 2017 [facility] Q30Min, Dosing Weight 93.722, kg, PRN Other -See Comment, For shivering, Start date: 02/28/18 10:24:00 CDT, Duration: 2 doses or times, Stop date: Limited # of times Docusate Sodium 200 mg=2 cap, Active 100 MG Oral PO, BID, # 60 2018 [facility] Capsule [Colace] cap, 0 Refill(s) Hydralazine 3 tabs, PO, Active Hydrochloride 25 BID, # 90 tab, 2018 [facility] Oral Tablet 3 Refill(s) metoprolol 100 mg=1 tab, Active tartrate 100 mg PO, BID, # 60 2018 [facility] oral tablet tab, 0 Refill(s) 12 HR [...] Active MG/ML Oral PO, Daily, PRN 2017 [facility] Solution constipation, # 240 mL, 0 Refill(s) [...] Active MG Sublingual SL, Q5Min, PRN 2017 [facility] Tablet Chest Pain, # [Nitrostat] 100 tab, 0 Refill(s) Vancomycin 1 gm, Route: No Longer IVPB, Drug Active 2017 [facility] form: INJ, PRE OP, Dosing Weight 93.722, [...] 20 mL IV, PRE OP, Active 2017 [facility] Dosing Weight 93.722, kg, Start date: 02/21/18 16:00:00 CDT, Duration: 1 day, Stop date: 02/22/18 15:59:00 CDT, ABX Indication: Surgical ProphylaxisNot es: (Same As: Ancef Kefzol) MEDICATION WASTE Product Size: 1000 mg Product Wasted: ___ mg travoprost 0.04 1 drp, OPTH, Active MG/ML Ophthalmic Bedtime, # 2.5 2017 [facility] Solution ml, 0 [Travatan] Refill(s) Humalog SUB-Q, 0 Active Refill(s) 2017 [facility] sevelamer 800 mg 1,600 mg=2 Active oral tablet tab, PO, 2017 [facility] TID-Meals, # 180 tab, 0 Refill(s) Famotidine 40 mg, PO, Active Bedtime, # 60 2017 [facility] tab, 0 Refill(s) Vitamin D2 50,000 50,000 No Longer intl units oral IntlUnit=1 Active 2017 [facility] capsule cap, PO, qWeek, 0 Refill(s) Aspirin 325 mg, PO, Active Bedtime, 0 2017 [facility] Refill(s) Metoclopramide 5 5 mg=1 tab, Active MG Oral Tablet PO, BID, 0 2017 [facility] Refill(s) Metoclopramide THREE TIMES A Active Nunez 06/05/ [facility] Ondansetron Hcl Q6H PRN For Active Nunez 06/05/ [facility] Vomiting [facility] [place] Furosemide TWICE DAILY Active Nunez 06/05/ [facility] [place] Zolpidem Tartrate AT BEDTIME Active Alroumoh 06/05/ [facility] [place] Aspirin DAILY Active [facility] St[facility] 2017 [facility] [place] Nitroglycerin DAILY Active St[facility] NEEDED PRN For 2017 [facility] [place] Promethazine Hcl EVERY [address] NEEDED PRN 2017 [facility] Nausea [place] Pantoprazole DAILY Active [facility] [place] Ranolazine TWICE DAILY Active [facility] [place] Insulin Lispro DAILY Active [facility] St[facility] [place] Furosemide TWICE DAILY Active Prezas [facility] St[facility] 2017 [facility] [place] Hydralazine TWICE DAILY Active [facility] St[facility] 2017 [facility] [place] Furosemide TWICE DAILY AT Active [facility] St[facility] 9am & 5pm [facility] [place] Atorvastatin DAILY Active [facility] St[facility] Calcium 2017 [facility] [place] Metoprolol TWICE DAILY Active [facility] St[facility] Tartrate 2017 [facility] [place] Nitroglycerin DAILY Active St[facility] Patch NEEDED PRN For 2017 [facility] [place] Amlodipine DAILY Active [facility] [place] Clopidogrel DAILY Active [facility] St[facility] Bisulfate 2017 [facility] [place] Furosemide TWICE DAILY Active Strange [facility] St. 2017 [facility] [place] Hydralazine THREE TIMES A Active Alexandr [facility] St. DAY 2017 [facility] [place] Pantoprazole DAILY Active Strange [facility] St[facility] Sodium 2017 [facility] [place] Metoprolol TWICE DAILY Active Strange [facility] St[facility] Tartrate 2017 [facility] [place] Clopidogrel DAILY Active Strange [facility] St[facility] Bisulfate 2017 [facility] [place] Atorvastatin AT BEDTIME Active Divinsky 09/14/ [facility] St[facility] Calcium 2017 [facility] [place] Amlodipine DAILY Active Divinsky [facility] St[facility] 2017 [facility] [place] Clopidogrel DAILY Active Divinsky [facility] St[facility] Bisulfate 2017 [facility] [place] Metoprolol TWICE DAILY Active Div St[facility] Tartrate 2017 [facility] [place] Sertraline DAILY Active [facility] St[facility] 2017 [facility] [place] Tramadol Hcl EVERY [address] PRN For Pain 2017 [facility] [place] Ranolazine DAILY Active Divinsky [facility] St[facility] 2017 [facility] [place] Sub-Q Insulin DAILY Active St[facility] Device, 40 Unit 2017 [facility] [place] Cefdinir TWICE DAILY Active Cameron [facility] [place] Methylprednisolon DAILY Active [facility] e [facility] [place] Guaifen W/Codeine TWICE DAILY Active Cameron [facility] St[facility] Syrup PRN For Cough 2016 [facility] [place] Amlodipine DAILY Active St. Besylate 2016 [facility] [place] Clopidogrel DAILY Active St[facility] Bisulfate 2016 [facility] [place] Fenofibrate DAILY Active [facility] St[facility] 2016 [facility] [place] Insulin Aspart THREE TIMES Active St[facility] DAILY 2016 [facility] NEED[facility] PRN For [place] hyperglycemia Liraglutide DAILY Active [facility] St[facility] 2016 [facility] [place] Ranolazine DAILY Active [facility] St[facility] 2016 [facility] [place] Insulin Detemir AT BEDTIME Active [facility] St[facility] 2016 [facility] [place] Metoprolol DAILY Active [facility] St[facility] Tartrate 2016 [facility] [place] Aspirin Tab DAILY Active Preza [facility] St[facility] 2014 [facility] [place] Metoprolol EVERY TWELVE Active Preza [facility] St. Tartrate HOURS 2014 [facility] [place] Insulin Detemir AT BEDTIME Active Pre [facility] St[facility] 2014 [facility] [place] Insulin Detemir AT BEDTIME Active Preza [facility] St[facility] 2014 [facility] [place] Atorvastatin DAILY Active St[facility] Calcium 2014 [facility] [place] Insulin Detemir AT BEDTIME Active [facility] [place] Lisinopril DAILY [...] ) sulfa drugs Assertion Drug Active allergy [facility] Immunizations Immunization Date Given Site Status Last Comments Source Updated Pneumovax 02/18/[address] [facility] Results Order Name Results Value Reference Date Interpretation Comments Source Range Chest Chest 1view Patient Name: ELIZABETH DARBY 06/19 - 1view DX DX /2018 - [facility] : 1965; Age: 53 years y/o Male MR: [id number] Read by: Bill Pineda MD Dictated Date/time: [...] within the left lung. No pneumothorax. SL: [id number] Ext Upper Ext Upper CLINICAL INDICATION: - redness, swelling, tenderness. AV fistula to right upper arm 06/18 - Venous Venous /2018 [facility] Doppler Doppler Unilat US Unilat US COMPARISON: [...] Name: ELIZABETH DARBY : 1965 - for - [place] Placement Placement DX Age: 52 years, Male MR: [id number] DX Study: Chest 1 v for Placement DX 04/20/2018 2:08 PM [facility] Read by: Ezequiel Marquez MD Dictated Date/time: [...] spine. IMPRESSION: Small right pleural effusion. SL: [id number] BLOOD BANK Antibody Negative 02/21 RESULTS Scr [facility] (02/21/18 3:47 PM) BLOOD BANK ABO/Rh A POS 02/21 RESULTS [facility] CHEM PANEL eGFR 8 02/21 Result Comment: [...] is not recommended in the following populations: [facility] 3m2 Individuals with unstable creatinine concentrations, including [...] Lvl 105 meq/L 95 - 109 02/21 [facility] CHEM PANEL CO2 26 meq/L 24 - 32 02/21 [facility] CHEM PANEL Calcium Lvl 8.5 mg/dL 8.5 - 10.5 02/21 [facility] CHEM PANEL Glucose Lvl 127 mg/dL 70 - 99 02/21 [facility] CHEM PANEL BUN 46 mg/dL 7 - 22 02/21 [facility] CHEM PANEL Sodium Lvl 143 meq/L 135 - 145 02/21 [facility] CHEM PANEL Potassium 4.2 meq/L 3.5 - 5.1 02/21 Lvl [facility] CHEM PANEL Creatinine 7.17 mg/dL 0.50 - 02/21 Lvl 1.40 [facility] CHEM PANEL AGAP 16.2 meq/L 10.0 - 02/21 MH 20.0 [facility] HEMATOLOGY Platelet 206 K/CMM 133 - 450 02/21 [facility] HEMATOLOGY MPV 7.3 fL 7.4 - 10.4 02/21 [facility] HEMATOLOGY MCV 92.7 fL 80.0 - 02/21 MH 94.0 [facility] HEMATOLOGY RBC 3.54 M/CMM 4.70 - 02/21 MH 6.10 [facility] HEMATOLOGY MCHC 33.7 g/dL 32.0 - 02/21 MH 36.0 [facility] HEMATOLOGY Hct 32.8 % 42.0 - 02/21 MH 54.0 [facility] HEMATOLOGY Hgb 11.1 g/dL 14.0 - 02/21 MH 18.0 [facility] HEMATOLOGY MCH 31.2 pg 27.0 - 02/21 MH 31.0 [facility] HEMATOLOGY RDW 15.7 % 11.5 - 02/21 MH 14.5 [facility] HEMATOLOGY WBC 6.8 K/CMM 3.7 - 10.4 02/21 [facility] HEMATOLOGY INR 0.89 0.85 - 02/21 1.17 [facility] HEMATOLOGY PT 12.0 s 12.0 - 02/21 MH 14.7 [facility] HEMATOLOGY PTT 31.9 s 22.9 - 02/21 MH 35.8 [facility] HEMATOLOGY Eosinophils 7.2 % 0.0 - 4.0 02/21 /2017 [facility] HEMATOLOGY Segs 60.5 % 45.0 - 09 75.0 [facility] HEMATOLOGY Lymphocytes 18.3 % 20.0 - 02/21 40.0 [facility] HEMATOLOGY Monocytes 12.9 % 2.0 - 12.0 02/21 /2017 [facility] HEMATOLOGY Eosinophils 0.5 K/CMM 0.0 - 0.5 02/21 # /2018 [facility] HEMATOLOGY Lymphocytes 1.2 K/CMM 1.0 - 5.5 02/21 # /2018 [facility] HEMATOLOGY Monocytes # 0.9 K/CMM 0.0 - 0.8 02/21 [facility] HEMATOLOGY Basophils 1.1 % 0.0 - 1.0 02/21 [facility] HEMATOLOGY Neutrophils 4.1 K/CMM 1.5 - 8.1 02/21 # /2017 [facility] HEMATOLOGY Basophils # 0.1 K/CMM 0.0 - 0.2 02/21 [facility] SPECIAL Hgb A1C 5.5 % <=5.6 % 02/21 CHEMISTRY [facility] Chest 2 Chest 2 EXAM: XR CHEST 2 VIEWS 02/21 - views DX views DX /2017 - [facility] DATE: 02/21/2018 3:45 PM CDT : 1965; [...] normal. IMPRESSION: No acute cardiopulmonary process. SL: [id number] Laboratory Sodium Level 138 mEq/L 135 - 145 06/05 [facility] St. Studies /2016 [facility] [place] Laboratory Potassium 5.1 mEq/L 3.6 - 5.0 06/05 [facility] St. Studies Level /2016 [facility] [place] Laboratory Phosphorus 7.4 mg/dL 2.5 - 4.3 06/05 [facility] St. Studies Level /2016 [facility] [place] Laboratory Glucose 167 mg/dL 65 - 120 06/05 St. Studies Level /2016 [facility] [place] Laboratory Estimat 10 mL/min 90 06/05 [facility] St. Studies Glomerular /2016 [facility] Filtration [place] Rate Laboratory Creatinine 6.17 mg/dL 0.61 - 06/05 [facility] St. Studies 1.24 [facility] [place] Laboratory Chloride 104 mEq/L 101 - 111 06/05 [facility] St. Studies Level /2016 [facility] [place] Laboratory Carbon 23 mEq/L 21 - 31 06/05 [facility] St. Studies Dioxide /2016 [facility] Level [place] Laboratory Calcium 9.1 mg/dL 8.5 - 10.5 06/05 [facility] St. Studies Level /2016 [facility] [place] Laboratory Blood Urea 87 mg/dL 6 - 20 06/05 [facility] St. Studies Nitrogen /2016 [facility] [place] Laboratory Albumin 3.4 g/dL 3.2 - 5.5 06/05 [facility] St. Studies /2016 [facility] [place] Laboratory Bedside 155 mg/dl 65 - 120 06/03 [facility] St. Studies Glucose [facility] [place] Laboratory Urine Urine 06/01 [facility]. Studies Immunoelectr Immunoelec [facility] - ophoresis 24 trophoresi [place] Hr s 24 Hr Laboratory Anti-Double 2 IU/mL 06/01 [facility] St. Studies Strand DNA [facility] Antibody [place] Laboratory Anti-Protein null 06/01 [facility] St. Studies ase 3 [facility] - (c-ANCA) [place] Laboratory Anti-Myelope null 06/01 [facility] St. Studies roxidase Ab [facility] (p-ANCA) [place] Laboratory Complement 31 mg/dL 06/01 [facility] St. Studies C4 [facility] [place] Laboratory Complement 127 mg/dL 06/01 [facility] St. Studies C3 [facility] [place] Laboratory Thyroid 2.92 0.34 - 06/01 [facility] St. Studies Stimulating uIU/mL 5.60 [facility] Hormone [place] (TSH) Laboratory Anti-Nuclear Anti-Nucle 05/30 [facility] St. Studies Antibody ar /2016 [facility] Titer Antibody [place] Titer Laboratory Anti-Nuclear Anti-Nucle 05/30 [facility] St. Studies Antibody ar /2016 [facility] Pattern Antibody [place] Pattern Laboratory Anti-Nuclear Anti-Nucle 05/30 [facility] St. Studies Antibody ar /2016 [facility] Screen Antibody [place] Screen Laboratory Anti-Nuclear Anti-Nucle 05/30 [facility] St. Studies Antibody ar /2016 [facility] Pattern 2 Antibody [place] Pattern 2 Laboratory Hepatitis C Hepatitis 05/30 [facility] St. Studies Antibody C Antibody /2016 [facility] [place] Laboratory Hepatitis C 0.03 ratio 05/30 [facility] St. Studies Ab /2016 [facility] Signal/Cutof [place] f Ratio Laboratory Hepatitis B Hepatitis 05/30 [facility] St. Studies Surface B Surface /2016 [facility] Antigen Antigen [place] Laboratory Hepatitis B Hepatitis 05/30 [facility] St. Studies Surface Ag B Surface /2016 [facility] Confirmation Ag [place] Confirmati on Laboratory Hepatitis B Hepatitis 05/30 [facility] St. Studies Core IgM B Core IgM /2016 [facility] Antibody Antibody [place] Laboratory Hepatitis A Hepatitis 05/30 [facility] St. Studies IgM Antibody A IgM /2016 [facility] Antibody [place] Laboratory HIV-1 RNA, HIV-1 RNA, 05/30 [facility] St. Studies Qualitat Qualitat /2016 [facility] (TMA) (TMA) [place] Comment Comment Laboratory HIV (1&2) Ag HIV (1&2) 05/30 [facility]. Studies and Ab, 4th Ag and Ab, /2016 [facility] Generation 4th [place] Generation Laboratory HIV (1&2) Ab HIV (1&2) 05/30 [facility]. Studies Differential Ab /2016 [facility] Comment Differenti [place] al Comment Laboratory Creatine 162 IU/L 22 - 269 05/30 [facility] St[facility] Studies Kinase [facility] [place] Laboratory Vitamin B12 173 pg/ml 180 - 914 05/30 [facility] St. Studies Level /2016 [facility] [place] Laboratory Total 0.4 mg/dL 0.3 - 1.2 05/30 [facility] St. Studies Bilirubin /2016 [facility] [place] Laboratory Serum Total 6.5 g/dL 6.0 - 8.3 05/30 [facility] St. Studies Protein /2016 [facility] [place] Laboratory Globulin 3.1 g/dL 2.3 - 3.5 05/30 [facility] St. Studies /2016 [facility] [place] Laboratory Ferritin 337.4 23.9 - 05/30 [facility] St. Studies ng/ml 336.2 [facility] [place] Laboratory Aspartate 12 IU/L 10 - 42 05/30 [facility]. Studies Amino Transf /2016 [facility] - (AST/SGOT) [place] Laboratory Alkaline 54 IU/L 42 - 121 05/30 [facility] St. Studies Phosphatase /2016 [facility] [place] Laboratory Albumin/Glob 1.1 1.1 - 1.8 05/30 [facility]. Studies ulin Ratio /2016 [facility] [place] Laboratory Alanine 10 IU/L 10 - 60 05/30 [facility]. Studies Aminotransfe /2016 [facility] - rase [place] (ALT/SGPT) Laboratory White Blood 7.9 K/uL 4.3 - 10.9 05/30 [facility]. Studies Count /2016 [facility] [place] Laboratory Red Cell 15.2 % 12.1 - 05/30 [facility]. Studies Distribution 15.2 [facility] - Width [place] Laboratory Red Blood 2.75 M/uL 4.33 - 05/30 [facility]. Studies Count 5.43 [facility] [place] Laboratory Platelet 314 K/uL 152 - 406 05/30 [facility]. Studies Count /2016 [facility] [place] Laboratory Neutrophils 56.6 % 41.7 - 05/30 [facility] St. Studies % 73.7 /2016 [facility] [place] Laboratory Monocytes % 12.0 % 3.3 - 12.3 05/30 [facility]. Studies /2016 [facility] [place] Laboratory Mean 7.1 fL 7.6 - 11.3 05/30 [facility]. Studies Platelet /2016 [facility] Volume [place] Laboratory Mean 85.4 fL 80 - 100 05/30 [facility]. Studies Corpuscular /2016 [facility] Volume [place] Laboratory Mean 34.1 g/dL 32.0 - 05/30 [facility]. Studies Corpuscular 36.0 [facility] - Hemoglobin [place] Concent Laboratory Mean 29.1 pg 27.0 - 05/30 [facility]. Studies Corpuscular 35.0 /2016 [facility] Hemoglobin [place] Laboratory Lymphocytes 25.1 % 15.3 - 05/30 [facility] St. Studies % 44.8 /2017 [facility] [place] Laboratory Hemoglobin 8.0 g/dL 13.6 - 05/30 [facility] St. Studies 17.9 /2016 [facility] [place] Laboratory Hematocrit 23.5 % 39.6 - 05/[address] [facility] [address] Studies 49.0 [facility] [place] Laboratory Eosinophils 5.7 % 0 - 4.4 05/30 [facility] St. Studies % /2016 [facility] [place] Laboratory Basophils % 0.6 % 0 - 1.3 05/30 [facility] St. Studies /2016 [facility] [place] Laboratory Absolute 4.5 K/uL 1.8 - 8.0 05/30 [facility] St. Studies Neutrophil [facility] [place] Laboratory Absolute 0.9 K/uL 0.1 - 1.3 05/30 [facility] St. Studies Monocytes [facility] - (CBC) [place] Laboratory Absolute 2.0 K/uL 0.7 - 4.9 05/30 [facility] St. Studies Lymphocytes [facility] - (CBC) [place] Laboratory Absolute 0.4 K/uL 0 - 0.5 05/30 [facility] St. Studies Eosinophils [facility] - (CBC) [place] Laboratory Absolute 0.0 K/uL 0 - 0.5 05/30 [facility] St. Studies Basophils [facility] - (CBC) [place] Laboratory Urine WBC null 05/29 [facility] St. Studies [facility] [place] Laboratory Urine null 05/29 [facility] St. Studies Squamous [facility] - Epithelial [place] Cells Laboratory Urine RBC Urine RBC 05/29 [facility] St. Studies [facility] [place] Laboratory Urine Urine 05/29 [facility] St. Studies Culture Culture [facility] - Reflexed Reflexed [place] Laboratory Urine null 05/29 [facility] St. Studies Bacteria [facility] [place] Laboratory Urine Urine 05/29 [facility] St. Studies Amorphous Amorphous [facility] - Sediment Sediment [place] Laboratory Direct null 0 - 0.2 05/29 [facility] St[facility] Studies Bilirubin [facility] [place] Laboratory Amylase 70 U/L 28 - 100 05/29 [facility] St[facility] Studies Level /2016 [facility] [place] Laboratory Lipase 95 U/L 22 - 51 05/29 [facility] St[facility] Studies /2016 [facility] [place] Laboratory Hemoglobin 7.3 % 4 - 6.0 05/11 [facility] St[facility] Studies A1c [facility] [place] Laboratory Triglyceride 118 mg/dL 35 - 160 05/11 [facility] St. Studies s Level [facility] [place] Laboratory Magnesium 2.2 mg/dL 1.8 - 2.5 05/11 [facility]. Studies Level /2016 [facility] [place] Laboratory LDL 81 05/11 [facility]. Studies Cholesterol, /2016 [facility] Calculated [place] Laboratory HDL 26 mg/dL 27 - 67 05/11 [facility]. Studies Cholesterol /2016 [facility] [place] Laboratory Cholesterol/ 5.04 05/11 [facility]. Studies HDL Ratio /2016 [facility] [place] Laboratory Cholesterol 131 mg/dL 05/11 [facility]. Studies Level /2016 [facility] [place] Laboratory Troponin I null 05/11 [facility]. Studies /2016 [facility] [place] Laboratory Glomerular null 05/10 [facility]. Studies Basement /2016 [facility] Membrane IgG [place] Ab Laboratory Urine pH 6.0 05/10 [facility]. Studies /2016 [facility] [place] Laboratory Urine Total Urine 05/10 [facility] [place] Studies Protein Total /2016 [facility] Protein [place] Laboratory Urine 1.020 05/10 [facility]. Studies Specific /2016 [facility] [place] Laboratory Urine Urine 05/10 [facility] [place] Studies Nitrite Nitrite /2016 [facility] [place] Laboratory Urine Urine 05/10 [facility] [place] Studies Leukocyte Leukocyte /2016 [facility] Esterase Esterase [place] Laboratory Urine Urine 05/10 [facility] [place] Studies Ketones Ketones /2016 [facility] [place] [facility] Urine Urine 05/10 [facility] [place] Studies Glucose Glucose /2016 [facility] [place] [facility] Urine Blood Urine 05/10 [facility]. Studies Blood /2016 [facility] [place] Laboratory Creatine 11.3 ng/ml 0.3 - 4.0 05/10 [facility] [place] Studies Kinase MB /2016 [facility] [place] Laboratory B-Type 594 pg/ml 05/10 [facility] [place] Studies Natriuretic /2016 [facility] Peptide [place] Laboratory Rapid null 05/10 [facility] [place] Studies Troponin I /2016 [facility] [place] Laboratory Prothrombin 11.3 9.5 - 12.5 05/10 [facility]. Studies Time SECONDS /2016 [facility] [place] Laboratory INR 0.96 05/10 [facility] [place] Studies Internationa /2016 [facility] - l Normalized [place] Ratio Laboratory Activated 28.5 24.3 - 05/10 [facility] [place] Studies Partial SECONDS 36.9 [facility] Thromboplast [place] Time Vital Signs Vital Sign Value Date Comments Source Systolic (mm Hg) 189 02/28/2018 [facility] Diastolic (mm Hg) 76 02/28/2018 [facility] Systolic (mm Hg) 180 02/28/2018 [facility] Diastolic (mm Hg) 72 02/28/2018 [facility] Systolic (mm Hg) 189 02/28/2018 [facility] Diastolic (mm Hg) 76 02/28/2018 [facility] Respitory Rate 15 02/28/2018 [facility] Respitory Rate 12 02/28/2018 [facility] Respitory Rate 14 02/28/2018 [facility] Temperature Oral (F) 97.8 F 02/21/2018 [facility] Heart Rate 53 02/21/2018 [facility] Height 190.5 cm 02/21/2018 [facility] Weight 93.722 02/21/2018 [facility] BMI Calculated 25.83 02/21/2018 [facility] Temperature Oral (F) 97.5 F 06/05/2017 [facility] [place] Heart Rate 66 06/05/[address] [facility] [place] Respitory Rate 18 06/05/2017 [facility] [place] Systolic (mm Hg) 131 06/05/2017 [facility] [place] Diastolic (mm Hg) 62 06/05/2017 [facility] [place] Height 75 06[facility]05/[address] [facility] [place] Weight 228 06/05/2017 [facility] [place] Encounters Location Location Encounter Encounter Reason Attending ADM DC Status Source Details Type Number For Provider Date Date Visit DARRON oJrdan. Registered [id number] 04/11 [facility] [place] [facility] Registered [id number] 04/13 [facility] [place] [facility] Registered [id number] 04/[address] [facility] Ref[facility] [place] [facility] Registered [id number] 04/20 [facility] [place] [facility] Departed [id number] 04/27 04/27 [facility] [place] [facility] [place] [facility] Discharged [id number] 05/10 05/[address] [facility] [place] [facility] [id number] 06/01 06/[address] [facility] [place] [facility] Surgery [id number] Joey 02/28 02/28 ERNST Sánchez /2017 [facility] Procedures Procedure Code Date Perfomer Comments Source Chest Single [id number] 06/03/[address] [facility] View [place] Chest Pa And [id number] 06/02/[address] [facility] - Lat (2 Views) [place] Abdomen & [id number] 05/29/[address] [facility] - Pelvis Wo [place] Contrast Chest Pa And [id number] 05/11/[address] [facility] Lat (2 Views) [place] Abdomen & [id number] 05/10/[address] [facility] Pelvis Wo [place] Contrast Chest Single [id number] 05/10/[address] [facility] [place] REMOVAL OF [id number] 04/27/2017 [facility] INFUSION DEVICE [place] FROM UPPER VEIN, OPEN APPROACH REMOVAL [id number] 04/27/[address] [facility] - TUNNELED CV [place] CATH Appendectomy<dobson [id number] [place] p>1</sup> Operation<sup>2 [id number] Rt shoulder surgery 2011 [facility] </sup> Dialysis cath placement Right anterior chest 2018
--- OUTSIDE RECORDS SUMMARY | 2018-10-26 06:22 | XMS REPORT ---
:1965 Author Organization [facility] Address [address] [place] [address] [address]. [address] [place] [address] Care Team Providers Name Role Phone DWIGHT [...] (BEAKER) (test 243 mg/dL 70-110 TESTED AT [facility] [address] [facility] mfdr=3898) [address] [facility] [address] BASIC METABOLIC [id number] 13:51:00 Test Item Value Reference Range Comments SODIUM (BEAKER) (test 139 meq/L 135-148 fpjg=047) POTASSIUM (BEAKER) (test 3.4 meq/L 3.6-5.5 wkqo=072) CHLORIDE (BEAKER) (test 101 meq/L 98-106 jgzs=078) CO2 (BEAKER) (test 29 meq/L 20-29 wqei=807) BLOOD UREA NITROGEN 11 mg/dL 10-26 (BEAKER) (test ibwj=465) CREATININE (BEAKER) (test 2.10 mg/dL 0.50-1.20 mbpo=889) GLUCOSE RANDOM (BEAKER) 157 mg/dL 70-110 (test gqxh=976) CALCIUM (BEAKER) (test 8.6 mg/dL 8.5-10.5 prgi=534) EGFR (BEAKER) (test 33 mL/min/1.73 sq m ESTIMATED GFR IS NOT cqwn=7023) ACCURATE CREATININE CLEARANCE IN PREDICTING GLOMERULAR FILTRATION RATE. ESTIMATED GFR IS NOT APPLICABLE FOR DIALYSIS PATIENTS. [id number] 13:44:00 Test Item Value Reference Range Comments MAGNESIUM (BEAKER) (test lypa=214) 1.9 mg/dL 1.5-3.0 CBC W/PLT COUNT & AUTO [id number] 13:34:00 Test Item Value Reference Range Comments WHITE BLOOD CELL COUNT (BEAKER) (test pdfq=212) 6.8 K/ L 4.0-10.0 RED BLOOD CELL COUNT (BEAKER) (test fnbx=150) 2.92 M/ L 4.20-5.80 HEMOGLOBIN (BEAKER) (test rcty=126) 8.4 GM/DL 13.0-16.8 HEMATOCRIT (BEAKER) (test toya=204) 25.5 % 40.0-50.0 MEAN CORPUSCULAR VOLUME (BEAKER) (test dqcm=494) 87.4 fL 82.0-98.0 MEAN CORPUSCULAR HEMOGLOBIN (BEAKER) (test 28.7 pg 27.0-33.0 decq=161) MEAN CORPUSCULAR HEMOGLOBIN CONC (BEAKER) (test 32.8 GM/DL 32.0-36.0 qffn=588) RED CELL DISTRIBUTION WIDTH (BEAKER) (test 14.7 % 10.3-14.2 jyfh=249) PLATELET COUNT (BEAKER) (test mklo=973) 299 K/CU MM 150-430 MEAN PLATELET VOLUME (BEAKER) (test pcxe=226) 6.9 fL 6.5-10.5 NUCLEATED RED BLOOD CELLS (BEAKER) (test 0 /100 WBC 0-0 macp=899) NEUTROPHILS RELATIVE PERCENT (BEAKER) (test 65 % elcr=782) LYMPHOCYTES RELATIVE PERCENT (BEAKER) (test 18 % dmdb=286) MONOCYTES RELATIVE PERCENT (BEAKER) (test 14 % phgc=468) EOSINOPHILS RELATIVE PERCENT (BEAKER) (test 3 % clfp=515) BASOPHILS RELATIVE PERCENT (BEAKER) (test 1 % iyaq=732) NEUTROPHILS ABSOLUTE COUNT (BEAKER) (test 4.40 K/ L 1.80-8.00 lado=439) LYMPHOCYTES ABSOLUTE COUNT (BEAKER) (test 1.20 K/ L 1.48-4.50 brfk=788) MONOCYTES ABSOLUTE COUNT (BEAKER) (test 1.00 K/ L 0.00-1.30 ezhs=174) EOSINOPHILS ABSOLUTE COUNT (BEAKER) (test 0.20 K/ L 0.00-0.50 ifya=483) BASOPHILS ABSOLUTE COUNT (BEAKER) (test 0.00 K/ L 0.00-0.20 abkc=336) POCT-GLUCOSE [id number] 11:28:00 Test Item Value Reference Range Comments POC-GLUCOSE METER (BEAKER) 147 mg/dL 70-110 TESTED AT [address] (test kgaw=2213) [place] [address] POCT-GLUCOSE [id number] 06:04:00 Test Item Value Reference Range Comments POC-GLUCOSE METER (BEAKER) 137 mg/dL 70-110 TESTED AT [address] (test qfxx=6971) [place] [address] POCT-GLUCOSE [id number] 21:01:00 Test Item Value Reference Range Comments POC-GLUCOSE METER (BEAKER) 138 mg/dL 70-110 TESTED AT [address] (test ilec=3434) [place] [address] POCT-GLUCOSE [id number] 16:06:00 Test Item Value Reference Range Comments POC-GLUCOSE METER (BEAKER) 167 mg/dL 70-110 TESTED AT [address] (test opso=5806) [place] [address] POCT-GLUCOSE [id number] 12:49:00 Test Item Value Reference Range Comments POC-GLUCOSE METER (BEAKER) 144 mg/dL 70-110 TESTED AT [address] (test fskx=7848) [place] [address] [id number] 10:27:00 Test Item Value Reference Range Comments POC-CREATININE (BEAKER) 3.6 mg/dL 0.6-1.3 TESTED AT [address] (test hexa=7624) [place] [address] POC-EGFR (BEAKER) (test 18 mL/min/1.73M2 sajz=5860) [id number] 10:27:00 Test Item Value Reference Range Comments POC-SODIUM (BEAKER) (test 138 meq/L 135-148 TESTED AT [address] rfje=5913) [place] [address] [id number] 10:27:00 Test Item Value Reference Range Comments POC-POTASSIUM (BEAKER) 3.6 meq/L 3.6-5.5 TESTED AT [address] (test bdhn=1449) [place] [address] [id number] 10:27:00 Test Item Value Reference Range Comments POC-BUN (BEAKER) (test 20 mg/dL 7-21 TESTED AT [address] uewx=9711) [place] [address] [id number] 10:27:00 Test Item Value Reference Range Comments POC-CHLORIDE (BEAKER) (test 97 meq/L 98-107 TESTED AT [address] rzjo=6151) [place] [address] [id number] 10:27:00 Test Item Value Reference Range Comments POC-GLUCOSE (BEAKER) (test 123 mg/dL 70-110 TESTED AT [address] oxlv=6647) [place] [address] [id number] 10:27:00 Test Item Value Reference Range Comments POC-HEMATOCRIT (BEAKER) (test 24 % 40-50 TESTED AT [address] nvmg=0389) [place] [address] [id number] 10:27:00 Test Item Value Reference Range Comments POC-HEMOGLOBIN (BEAKER) 8.2 g/dL 13.0-16.8 TESTED AT [address] (test mlgu=5413) [place] [address] [id number] 10:27:00 Test Item Value Reference Range Comments POC-TCO2 (BEAKER) (test 30 meq/L 22-29 TESTED AT [address] bbov=5542) [place] [address] POCT-GLUCOSE [id number] 06:08:00 Test Item Value Reference Range Comments POC-GLUCOSE METER (BEAKER) 163 mg/dL 70-110 TESTED AT [address] (test mapt=1347) [place] [address] POCT-GLUCOSE [id number] 21:07:00 Test Item Value Reference Range Comments POC-GLUCOSE METER (BEAKER) 132 mg/dL 70-110 TESTED AT [facility] [address] [facility] (test sbik=7932) [facility] [address] POCT-GLUCOSE [id number] 12:58:00 Test Item Value Reference Range Comments POC-GLUCOSE METER (BEAKER) 178 mg/dL 70-110 TESTED AT [facility] [address] [place] [address] (test hulv=2592) [facility] [address] POCT-GLUCOSE [id number] 05:29:00 Test Item Value Reference Range Comments POC-GLUCOSE METER (BEAKER) 171 mg/dL 70-110 TESTED AT [address] (test ukdg=3867) [facility] [address] POCT-GLUCOSE [id number] 22:03:00 Test Item Value Reference Range Comments POC-GLUCOSE METER (BEAKER) 249 mg/dL 70-110 TESTED AT [address] (test hdpt=5363) [facility] [address] POCT-GLUCOSE [id number] 16:45:00 Test Item Value Reference Range Comments POC-GLUCOSE METER (BEAKER) 213 mg/dL 70-110 TESTED AT [address] (test hwvy=0291) [facility] [address] [id number] 16:43:00 Test Item Value Reference Range Comments THYROID STIMULATING HORMONE (BEAKER) (test 2.09 uIU/mL 0.35-5.50 hskg=103) COMPREHENSIVE METABOLIC [id number] 16:24:00 Test Item Value Reference Range Comments TOTAL PROTEIN (BEAKER) 7.2 gm/dL 6.0-8.5 (test pysq=726) ALBUMIN (BEAKER) (test 3.5 g/dL 3.5-5.0 gfvi=0183) ALKALINE PHOSPHATASE 67 U/L 30-115 (BEAKER) (test szyh=977) BILIRUBIN TOTAL (BEAKER) 0.3 mg/dL 0.1-1.2 (test ufzj=430) SODIUM (BEAKER) (test 136 meq/L 135-148 jkhu=277) POTASSIUM (BEAKER) (test 4.1 meq/L 3.6-5.5 uxfz=683) CHLORIDE (BEAKER) (test 98 meq/L 98-106 hwha=030) CO2 (BEAKER) (test 26 meq/L 20-29 ayuo=323) BLOOD UREA NITROGEN 32 mg/dL 10-26 (BEAKER) (test msmp=502) CREATININE (BEAKER) (test 4.40 mg/dL 0.50-1.20 pssa=584) GLUCOSE RANDOM (BEAKER) 212 mg/dL 70-110 (test nzjk=692) CALCIUM (BEAKER) (test 9.0 mg/dL 8.5-10.5 suwq=889) AST (SGOT) (BEAKER) (test 14 U/L 5-40 rusg=511) ALT (SGPT) (BEAKER) (test 4 U/L 5-50 ahzs=378) EGFR (BEAKER) (test 14 mL/min/1.73 sq m ESTIMATED GFR IS NOT mjft=6955) ACCURATE CREATININE CLEARANCE IN PREDICTING GLOMERULAR FILTRATION RATE. ESTIMATED GFR IS NOT APPLICABLE FOR DIALYSIS PATIENTS. CBC W/PLT COUNT & AUTO [id number] 16:02:00 Test Item Value Reference Range Comments WHITE BLOOD CELL COUNT (BEAKER) (test jdfn=920) 6.9 K/ L 4.0-10.0 RED BLOOD CELL COUNT (BEAKER) (test ewla=449) 2.95 M/ L 4.20-5.80 HEMOGLOBIN (BEAKER) (test goxf=108) 8.6 GM/DL 13.0-16.8 HEMATOCRIT (BEAKER) (test kitx=052) 25.9 % 40.0-50.0 MEAN CORPUSCULAR VOLUME (BEAKER) (test rsuz=088) 87.9 fL 82.0-98.0 MEAN CORPUSCULAR HEMOGLOBIN (BEAKER) (test 29.0 pg 27.0-33.0 wkik=401) MEAN CORPUSCULAR HEMOGLOBIN CONC (BEAKER) (test 33.0 GM/DL 32.0-36.0 nbbh=198) RED CELL DISTRIBUTION WIDTH (BEAKER) (test 15.0 % 10.3-14.2 uies=599) PLATELET COUNT (BEAKER) (test hjeu=886) 330 K/CU MM 150-430 MEAN PLATELET VOLUME (BEAKER) (test wftr=573) 7.1 fL 6.5-10.5 NUCLEATED RED BLOOD CELLS (BEAKER) (test 0 /100 WBC 0-0 mhse=815) NEUTROPHILS RELATIVE PERCENT (BEAKER) (test 66 % pmpw=870) LYMPHOCYTES RELATIVE PERCENT (BEAKER) (test 16 % twfa=716) MONOCYTES RELATIVE PERCENT (BEAKER) (test 12 % wjyl=408) EOSINOPHILS RELATIVE PERCENT (BEAKER) (test 5 % ekzg=297) BASOPHILS RELATIVE PERCENT (BEAKER) (test 1 % sagn=756) NEUTROPHILS ABSOLUTE COUNT (BEAKER) (test 4.60 K/ L 1.80-8.00 bmcx=676) LYMPHOCYTES ABSOLUTE COUNT (BEAKER) (test 1.10 K/ L 1.48-4.50 prza=333) MONOCYTES ABSOLUTE COUNT (BEAKER) (test 0.80 K/ L 0.00-1.30 tmur=862) EOSINOPHILS ABSOLUTE COUNT (BEAKER) (test 0.30 K/ L 0.00-0.50 xqmf=660) BASOPHILS ABSOLUTE COUNT (BEAKER) (test 0.10 K/ L 0.00-0.20 krsx=383) PROTHROMBIN [id number] 16:01:00 Test Item Value Reference Range Comments PROTIME (BEAKER) (test awlf=113) 10.3 seconds 9.3-12.0 INR (BEAKER) (test xbxn=657) 1.0 <=5.9 RECOMMENDED COUMADIN/WARFARIN INR THERAPY RANGESSTANDARD DOSE: 2.0 - 3.0 Includes: PROPHYLAXIS forvenous thrombosis, systemic embolization; TREATMENT for venous thrombosis and/or pulmonary embolus.HIGH RISK: Target INR is 2.5-3.5 for patients with mechanical heart valves.POCT-GLUCOSE [id number] 12:01:00 Test Item Value Reference Range Comments POC-GLUCOSE METER (BEAKER) 211 mg/dL 70-110 TESTED AT [address] (test cctr=3053) [facility] [address] POCT-GLUCOSE [id number] 06:08:00 Test Item Value Reference Range Comments POC-GLUCOSE METER (BEAKER) 191 mg/dL 70-110 TESTED AT [address] (test gffj=8686) [facility] [address] POCT-GLUCOSE [id number] 21:28:00 Test Item Value Reference Range Comments POC-GLUCOSE METER (BEAKER) 233 mg/dL 70-110 TESTED AT [address] (test mifd=0247) [facility] [address] POCT-GLUCOSE [id number] 16:19:00 Test Item Value Reference Range Comments POC-GLUCOSE METER (BEAKER) 290 mg/dL 70-110 TESTED AT [address] (test lcnt=3407) [facility] [address] POCT-GLUCOSE [id number] 13:33:00 Test Item Value Reference Range Comments POC-GLUCOSE METER (BEAKER) 186 mg/dL 70-110 TESTED AT [address] (test nfrq=5260) [facility] [address] POCT-GLUCOSE [id number] 06:27:00 Test Item Value Reference Range Comments POC-GLUCOSE METER (BEAKER) 204 mg/dL 70-110 TESTED AT [address] (test siiw=4310) [facility] [address] POCT-GLUCOSE [id number] 21:40:00 Test Item Value Reference Range Comments POC-GLUCOSE METER (BEAKER) 267 mg/dL 70-110 TESTED AT [address] (test rmre=0503) [facility] [address] POCT-GLUCOSE [id number] 17:32:00 Test Item Value Reference Range Comments POC-GLUCOSE METER (BEAKER) 221 mg/dL 70-110 TESTED AT [address] (test bjnf=5243) [facility] [address] HEPATITIS B SURFACE [id number] 14:21:00 Test Item Value Reference Range Comments HEPATITIS B SURFACE ANTIBODY (BEAKER) (test < mIU/mL <8.0 wgdq=066) HEPATITIS B CORE ANTIBODY, [id number] 14:15:00 Test Item Value Reference Range Comments HEPATITIS B CORE TOTAL ANTIBODY (BEAKER) (test Nonreactive Nonreactive royv=380) POCT-GLUCOSE [id number] 12:18:00 Test Item Value Reference Range Comments POC-GLUCOSE METER (BEAKER) 193 mg/dL 70-110 TESTED AT [address] (test uuza=1767) [facility] [address] RAD, CHEST, 1 VIEW, NON [id number] 08:49:00Reason for exam:->for outpatient HD placementShould this [...] Hammereport Verified Date/Time: 06/10/2017 08:49:42 Reading Location: [facility] Radiology Reading Room Electronically signed by: SACHI HAMMER on 2016 08:49 AMPOCT-GLUCOSE [id number] 06:53:00 Test Item Value Reference Range Comments POC-GLUCOSE METER (BEAKER) 177 mg/dL 70-110 TESTED AT [address] (test kgwq=1646) [facility] [address] POCT-GLUCOSE [id number] 22:10:00 Test Item Value Reference Range Comments POC-GLUCOSE METER (BEAKER) 109 mg/dL 70-110 TESTED AT [address] (test eebi=0864) [facility] [address] HEPATITIS B SURFACE [id number] 20:18:00 Test Item Value Reference Range Comments HEPATITIS B SURFACE ANTIGEN (2) (BEAKER) (test Nonreactive Nonreactive wovo=0577) POCT-GLUCOSE [id number] 17:08:00 Test Item Value Reference Range Comments POC-GLUCOSE METER (BEAKER) 223 mg/dL 70-110 TESTED AT [address] (test xmvg=0830) [facility] [address] POCT-GLUCOSE [id number] 12:47:00 Test Item Value Reference Range Comments POC-GLUCOSE METER (BEAKER) 200 mg/dL 70-110 TESTED AT [address] (test rmgt=4689) [facility] [address] ANG, TUNNELED CATHETER [id number] 12:13:00Reason for exam:->renal failureFINAL REPORT Tunneled central [...] the patient's medical record by the nurse. Secondary School Teacher: Onesimo Lopez MD. Senior Php Web Developer: None. Approach: Right internal jugular vein Estimated [...] needle into the right atrium. A 4 Mauritian micropuncture sheath was placed. A subcutaneous tunnel was created in the right anterior chest wall by blunt dissection. A 19 cm tipped cuff 15.5 Mauritian Duraflow 2 catheter was brought through the [...] Lopezort Verified Date/Time: 06/09/2017 12:13:36 Reading Location: [facility] Radiology Reading Room 12 :13 PMPOCT-GLUCOSE [id number] 06:03:00 Test Item Value Reference Range Comments POC-GLUCOSE METER (BEAKER) 208 mg/dL 70-110 TESTED AT [facility] [address] [facility] (test bfll=8446) [address] [facility] [address] BASIC METABOLIC [id number] 06:00:00 Test Item Value Reference Range Comments SODIUM (BEAKER) (test 139 meq/L 135-148 nktt=108) POTASSIUM (BEAKER) (test 3.5 meq/L 3.6-5.5 fnsy=558) CHLORIDE (BEAKER) (test 103 meq/L 98-106 uqmc=102) CO2 (BEAKER) (test 26 meq/L 20-29 cygt=557) BLOOD UREA NITROGEN 62 mg/dL 10-26 (BEAKER) (test jyek=094) CREATININE (BEAKER) (test 5.10 mg/dL 0.50-1.20 gxcz=515) GLUCOSE RANDOM (BEAKER) 191 mg/dL 70-110 (test rjts=809) CALCIUM (BEAKER) (test 9.0 mg/dL 8.5-10.5 splk=377) EGFR (BEAKER) (test 12 mL/min/1.73 sq m ESTIMATED GFR IS NOT bnxw=8174) ACCURATE CREATININE CLEARANCE IN PREDICTING GLOMERULAR FILTRATION RATE. ESTIMATED GFR IS NOT APPLICABLE FOR DIALYSIS PATIENTS. HEPATIC FUNCTION [id number] 05:58:00 Test Item Value Reference Range Comments TOTAL PROTEIN (BEAKER) (test kaer=562) 6.3 gm/dL 6.0-8.5 ALBUMIN (BEAKER) (test zhkt=1253) 3.2 g/dL 3.5-5.0 BILIRUBIN TOTAL (BEAKER) (test fzqy=356) 0.4 mg/dL 0.1-1.2 BILIRUBIN DIRECT (BEAKER) (test afmt=957) 0.2 mg/dL 0.0-0.4 ALKALINE PHOSPHATASE (BEAKER) (test afdj=311) 67 U/L 30-115 AST (SGOT) (BEAKER) (test dops=293) 13 U/L 5-40 ALT (SGPT) (BEAKER) (test bfov=951) 10 U/L 5-50 CBC W/PLT COUNT & AUTO [id number] 05:56:00 Test Item Value Reference Range Comments WHITE BLOOD CELL COUNT (BEAKER) (test vgkp=632) 6.3 K/ L 4.0-10.0 RED BLOOD CELL COUNT (BEAKER) (test nfwb=229) 2.71 M/ L 4.20-5.80 HEMOGLOBIN (BEAKER) (test dmpn=891) 7.8 GM/DL 13.0-16.8 HEMATOCRIT (BEAKER) (test wmuc=377) 23.6 % 40.0-50.0 MEAN CORPUSCULAR VOLUME (BEAKER) (test jhso=792) 86.8 fL 82.0-98.0 MEAN CORPUSCULAR HEMOGLOBIN (BEAKER) (test 28.6 pg 27.0-33.0 iiul=706) MEAN CORPUSCULAR HEMOGLOBIN CONC (BEAKER) (test 33.0 GM/DL 32.0-36.0 qwpj=905) RED CELL DISTRIBUTION WIDTH (BEAKER) (test 14.8 % 10.3-14.2 nosu=611) PLATELET COUNT (BEAKER) (test yczg=575) 334 K/CU MM 150-430 MEAN PLATELET VOLUME (BEAKER) (test ljyn=185) 6.9 fL 6.5-10.5 NUCLEATED RED BLOOD CELLS (BEAKER) (test 0 /100 WBC 0-0 ymft=663) NEUTROPHILS RELATIVE PERCENT (BEAKER) (test 57 % cztl=699) LYMPHOCYTES RELATIVE PERCENT (BEAKER) (test 19 % xnzh=279) MONOCYTES RELATIVE PERCENT (BEAKER) (test 15 % pwxl=981) EOSINOPHILS RELATIVE PERCENT (BEAKER) (test 7 % dtvv=715) BASOPHILS RELATIVE PERCENT (BEAKER) (test 1 % bgkm=928) NEUTROPHILS ABSOLUTE COUNT (BEAKER) (test 3.60 K/ L 1.80-8.00 unos=489) LYMPHOCYTES ABSOLUTE COUNT (BEAKER) (test 1.20 K/ L 1.48-4.50 rsap=125) MONOCYTES ABSOLUTE COUNT (BEAKER) (test 1.00 K/ L 0.00-1.30 ipnq=277) EOSINOPHILS ABSOLUTE COUNT (BEAKER) (test 0.50 K/ L 0.00-0.50 thvi=031) BASOPHILS ABSOLUTE COUNT (BEAKER) (test 0.10 K/ L 0.00-0.20 nzkz=324) [id number] 05:55:00 Test Item Value Reference Range Comments PHOSPHORUS (BEAKER) (test txzg=195) 4.1 mg/dL 2.5-4.5 [id number] 05:51:00 Test Item Value Reference Range Comments PROTIME (BEAKER) (test epay=164) 10.7 seconds 9.3-12.0 INR (BEAKER) (test rbvs=994) 1.0 <=5.9 PARTIAL THROMBOPLASTIN TIME (BEAKER) (test 28.5 seconds 23.0-35.0 ahff=952) RECOMMENDED COUMADIN/WARFARIN INR THERAPY RANGESSTANDARD DOSE: 2.0 - 3.0 Includes: PROPHYLAXIS forvenous thrombosis, systemic embolization; TREATMENT for venous thrombosis and/or pulmonary embolus.HIGH RISK: Target INR is 2.5-3.5 for patients with mechanical heart valves.[id number] 05:50:00 Test Item Value Reference Range Comments MAGNESIUM (BEAKER) (test sxtn=860) 1.7 mg/dL 1.5-3.0 POCT-GLUCOSE [id number] 23:14:00 Test Item Value Reference Range Comments POC-GLUCOSE METER (BEAKER) 230 mg/dL 70-110 TESTED AT [address] (test hfeg=5254) [facility] [address]
[2018-10-26] MEDS ORDERED: LIDOCAINE 1% MPF 30 ML VIAL ONE (06:54)
[2018-10-26] MEDS ORDERED: NA CHLORIDE 0.9% 500 ML ONE (06:54)
[2018-10-26] MEDS ORDERED: HEPA 1000U/500MLS 1,000 UNIT/500 ML BAG IV ONE (06:54)
[2018-10-26 07:23] LABS: Protime INR 1.17
[2018-10-26] MEDS ORDERED: MIDAZOLAM HCL 2 MG/2 ML INJ ONE (07:54)
[2018-10-26] MEDS ORDERED: ATROPINE SULF 1 MG/10 ML SYR IV ONE (07:55)
[2018-10-26] MEDS ORDERED: NA CHLORIDE 0.9% 0 ML ONE (07:55)
[2018-10-26] MEDS ORDERED: FENTANYL CITR 100 MCG/2 ML ONE (07:55)
[2018-10-26 09:57] VITALS: TEMP 97.9; O2SAT 96
[2018-10-26] MEDS ORDERED: ACETAMINOPHEN 325 MG TABLET ONE (10:07)
[2018-10-26 10:27] VITALS: BP 160/69
--- NOTE | 2018-10-26 18:35 | OP ---
Date of Procedure: 10/26/2018 Surgeon: Aryan Love MD Admitted to my service as an outpatient for a heart catheterization today, 10/26/2018. Indications: Mr. Bah is a 53-year-old white male with chronic stable angina that has worsened. He has known diffuse coronary artery disease from 5 years ago. Continues to have angina despite john l medical therapy. He is being evaluated for heart transplant and kidney transplant. Procedure In Detail: Brought to the labor specialist today as an outpatient, given 2 mg of Versed for IV sed ation. He was prepped and draped in the routine sterile fashion. A 6-Frisian sheath introduced in th e right common femoral artery. Angiography there was normal. Angio-Seal was used to close the case. Coronary angiography using Mylene catheter left and right revealed a normal left main, had 100% LA D after the first septal. He has diffuse disease at the circ and OM, very small vessels throughout. He had a 70% mid RCA. The RCA was of good size 2.5-3 mm throughout, was right dominant with moderat e collaterals to the LAD. Ejection fraction was 40-45% with anteroapical dyskinesis. There were no complications. Blood Loss: 5 cc. Anesthesia: Total conscious sedation was 30 minutes. Postoperative Diagnosis: Severe coronary artery disease. Plan: Review the film with the transplant team prior to making final decision regarding transplant v ersus possible CABG or maybe even an RCA stent and see how he does. Co-operators: Prabhakar and Nino Olivares. TERA/NESSA Voice ID: [id number] Report ID: [id number]
== END 2018-10-26 10:20 | disposition home or self-care (01) ==
LOC: CCL 06:16
PROC: 4A023N7 Measurement of Cardiac Sampling and Pressure, Left Heart, Percutaneous Approach (ICD-10-PCS; principal; 2018-10-26)
PROC: B201YZZ Plain Radiography of Multiple Coronary Arteries using Other Contrast (ICD-10-PCS; 2018-10-26)
DX: I25.119 Atherosclerotic heart disease of native coronary artery with unspecified angina pectoris (principal); I25.82 Chronic total occlusion of coronary artery; I65.23 Occlusion and stenosis of bilateral carotid arteries; I10 Essential (primary) hypertension; E78.5 Hyperlipidemia, unspecified; G47.30 Sleep apnea, unspecified; E78.6 Lipoprotein deficiency; E11.9 Type 2 diabetes mellitus without complications; K21.9 Gastro-esophageal reflux disease without esophagitis; Z87.891 Personal history of nicotine dependence; Z88.0 Allergy status to penicillin
CPT/HCPCS: 36415; 82962; 85610; 85730; 93458; C1760; C1893; J0583; J2250; J3010

== ENCOUNTER 2018-11-29 18:58 | Emergency (ER) | payer BC, OTHER ==
--- OUTSIDE RECORDS SUMMARY | 2018-11-29 19:01 | XMS REPORT | Clinical Summary ---
:1965 Author Organization [facility] Address [address] [place] [address] Care Team Providers Name Role Phone Garo [...] Hypertension 02/24/2017 Intractable vomiting with nausea 02/24/2017 Hrymx-cf-ciiktpj kidney injury 02/24/2017 Diabetes mellitus 02/15/2017 Encounters Date Type Specialty Care Team Description 05/25/2018 Anesthesia Event Plastic Surgery Raz Brown 05/25/2018 Surgery Plastic Surgery Daquan Mary AND ARIS Arrington MD INDICATED PROCEDURES, RIGHT EYE 05/25/2018 Hospital Encounter Plastic Surgery Daquan Mary MD after 11/28/2017 Immunizations Name Dates Previously Given Next Due [...] Taken Blood Pressure 136/61 05/25/2018 2:05 PM OVEN BUILDER Pulse 58 05/25/2018 2:05 PM [facility] BU[employer] Temperature 37.2 C (98.9 F) 05/25/2018 2:05 PM [facility] BUILDER Respiratory Rate 12 05/25/2018 2:05 PM [facility] BUILDER Oxygen Saturation 96% 05/25/2018 2:05 PM [employer] BUILDER Inhaled Oxygen Concentration - - Weight 97.2 kg (214 lb 3 oz) 05/25/2018 11:43 AM OVEN BUILDER Height 190.5 cm (6' 3") 05/25/2018 11:43 AM OVEN BUILDER Body Mass Index 26.77 05/25/2018 11:43 AM OVEN BUILDER Plan of Treatment Health Maintenance Due Date Last Done Comments DIABETIC RETINAL EYE EXAM 1965 DIABETIC FOOT EXAM 1974 COLONOSCOPY SCREENING 2014 SHINGLES VACCINES (#1) 2014 INFLUENZA VACCINE 01/11/2019 02/11/2017 Procedures Procedure Name Priority Date/Time Associated Diagnosis Comments VITRECTOMY 05/25/2018 1:00 PM [facility] [facility]DER Vitreous hemorrhage of right eye (HCC) Special Needs REQ 1300 START POC PANEL 4 Routine 05/25/2018 12:09 PM OVEN BUILDER after 11/28/2017 Results POC panel 4 (05/25/2018 12:09 PM OVEN BUILDER) POC sodium 137 135 - 148 [facility] mmol/L [facility] POC potassium 4.3 3.5 - 5.0 [facility] mmol/L [facility] POC hematocrit 34 (L) 41 - 51 % [facility] Comment: HOSPITAL Meter ID: [id number] Envelope Maker: Abisai Girard POC glucose 107 (H) 65 - 99 mg/dL [facility] Specimen Performing Organization Address City/State/Zipcode Phone Number [facility] DEPARTMENT OF PATHOLOGY AND [address] [place] [address] [facility] [address] [place] [phone] after 11/28/2017 Insurance Payer Benefit Plan / Subscriber ID Effective Dates Phone Address Type Group BCBS ANTHEM BLUE CROSS xxxxxxxxxxxx 2017-Present PPO MEDICARE MEDICARE PART A xxxxxxxxxx 2016-Present [place], [place] Medicare AND B Advance Directives Patient has advance care planning documents on file. For more information, please contact:Naren Castro[address] [place] [address]
--- OUTSIDE RECORDS SUMMARY | 2018-11-29 19:01 | XMS REPORT | Clinical Summary ---
:1965 Author Organization [facility] Address [address] [place] [address] Care Team Providers Name Role Phone Bala [...] Not on file Implants Implanted Type Area Director Of Promotions Device Shelf Model / Identifier Expiration Serial / Lot Date Cath Peritoneal Dyls 57cm 2cuf [id number] - Sn/A Catheter N/A: COVIDIEN: SHAZIA 02/17/2021 [id number] / Implanted: Qty: 1 on 06/14/2017 by Abdiel Ivory MD Dialysis Abdomen L N/A / Halfway [id number] Results Not on fileafter 11/28/2017 Insurance Payer Benefit Plan / Subscriber ID Type Phone Address Group BLUE CROSS/BLUE BCBS OS xxxxxxxxxxxx PPO [phone] [address] SHIELD POS/PP[place] [address] MEDICARE MEDICARE A B xxxxxxxxxx Medicare Advance Directives For more information, please contact:[address] [phone] Code Status Date Activated Date Inactivated Comments Full Code 06/08/2017 11:37 PM 06/15/2017 8:31 PM This code status was determined by: Patient
--- OUTSIDE RECORDS SUMMARY | 2018-11-29 19:03 | XMS REPORT | Continuity of Care Document ---
[...] nausea and 17 [facility] [place] [id number] Active 02/25/20 Finding 06/05/[address] [facility] [address] kidney [...] 2017 [facility] [place] Aspirin DAILY Active . 2017 [facility] [place] Nitroglycerin DAILY Active . NEEDED PRN For 2017 [facility] - Chest [...] [place] Hydralazine THREE TIMES A Active Alexandr [facility] St. DAY 2017 [facility] [place] Pantoprazole Sodium DAILY Active Alexandr [facility] St. 2017 [facility] [place] Metoprolol Tartrate TWICE DAILY Active Alexandr [facility] St. 2017 [facility] [place] Clopidogrel DAILY Active Alexandr St. Bisulfate 2017 [facility] [place] Atorvastatin AT BEDTIME Active Divinsky St. Calcium 2017 [facility] [place] Amlodipine DAILY Active Divinsky [facility] St. 2017 [facility] [place] Clopidogrel DAILY Active Divinsky St. Bisulfate 2017 [facility] [place] Metoprolol Tartrate TWICE DAILY Active Divinsky [facility] St. 2017 [facility] [place] Sertraline DAILY Active Divinsky [facility] St. 2017 [facility] [place] Tramadol Hcl EVERY [address] PRN For Pain 2017 [facility] [place] Ranolazine DAILY Active Divky [facility] St. 2017 [place] Sub-Q Insulin DAILY Active St. Device, 40 Unit 2017 [place] [place] Cefdinir TWICE DAILY Active Cameron [facility] St. 2016 [facility] [place] Methylprednisolone DAILY Active Cameron [facility] St. 2016 [facility] [place] Guaifen W/Codeine TWICE DAILY Active Cameron [facility] St. Syrup PRN For Cough 2016 [facility] [place] Amlodipine Besylate DAILY Active [facility] St. 2016 [facility] [place] Clopidogrel DAILY Active [facility] St. Bisulfate 2016 [facility] [place] Fenofibrate DAILY Active [facility] St. 2016 [facility] [place] Insulin Aspart THREE TIMES Active [facility] St. DAILY 2016 [facility] - NEEDED PRN For [place] hyperglycemia Liraglutide DAILY Active [facility] St. 2016 [facility] [place] Ranolazine DAILY Active [facility] St. 2016 [facility] [place] Insulin Detemir AT BEDTIME Active [facility] St. 2016 [facility] [place] Metoprolol Tartrate DAILY Active [facility] St. 2016 [facility] [place] Aspirin Tab DAILY Active Preza [facility] St. 2014 [facility] [place] Metoprolol Tartrate EVERY TWELVE Active Preza [facility] St. HOURS 2014 [facility] [place] Insulin Detemir AT BEDTIME Active 02/14/ [facility] St. 2014 [facility] [place] Insulin Detemir AT BEDTIME Active Prezas 02/04/ [facility] St. 2014 [facility] [place] Atorvastatin DAILY Active [facility] St. Calcium 2014 [facility] [place] Insulin Detemir AT BEDTIME Active [facility] St. 2014 [facility] [place] Lisinopril DAILY Active [facility] St. 2014 [facility] [place] Saxagliptin DAILY Active [facility] St. Hcl/Metformin Hcl 2013 [facility] [place] Allergies, Adverse Reactions, Alerts Substance Category Reaction Severity Reaction Status Date Comments Source type Reported Sulfa Hives/Aiden Allergy to Active [facility] (Sulfonamid h Substance 7 [facility] - e [place] Antibiotics ) Immunizations Immunization Date Given Site Status Last Comments Source Updated Pneumovax 02/18/2017 completed [facility] [place] Results Order Name Results Value Reference Date Interpretation Comments Source Range Laboratory Sodium Level 138 mEq/L 135 - 145 06/[address] [facility] St[facility] [place] Laboratory Potassium 5.1 mEq/L 3.6 - 5.0 06/[address] [facility] St. Studies Level /2016 [facility] [place] Laboratory Phosphorus 7.4 mg/dL 2.5 - 4.3 06/[address] [facility] St. /2016 [facility] [place] Laboratory Glucose Level 167 mg/dL 65 - 120 06/[address] [facility] . [facility] [place] Laboratory Estimat 10 mL/min 90 06/[address] [facility] St. Studies [facility] - Filtration [place] Rate Laboratory Creatinine 6.17 mg/dL 0.61 - 06/[address] [facility] St. Studies 1. [facility] [place] Laboratory Chloride 104 mEq/L 101 - 111 06/[address] [facility] St. Studies Level /2016 [facility] [place] Laboratory Carbon 23 mEq/L 21 - 31 06/[address] [facility] . Dioxide Level /2016 [facility] [place] Laboratory Calcium Level 9.1 mg/dL 8.5 - 10.5 06/[address] [facility] St[facility] [place] Laboratory Blood Urea 87 mg/dL 6 - 20 06/[address] [facility] St. Nitrogen /2016 [facility] [place] Laboratory Albumin 3.4 g/dL 3.2 - 5.5 06/[address] [facility] St. Studies [facility] [place] Laboratory Bedside 155 mg/dl 65 - 120 06/03 [facility]. Studies Glucose /2016 [facility] [place] Laboratory Urine Urine 06/01 [facility] Studies Immunoelectro Immunoelect /2016 [facility] - phoresis 24 rophoresis [place] Hr 24 Hr Laboratory Anti-Double 2 IU/mL 06/01 [facility] Studies Strand DNA [facility] - Antibody [place] Laboratory Anti-Proteina null 06/01 [facility] Studies se 3 (c-ANCA) /2016 [facility] [place] Laboratory Anti-Myeloper null 06/01 [facility] Studies oxidase Ab [facility] - (p-ANCA) [place] Laboratory Complement C4 31 mg/dL 06/01 [facility]. Studies [facility] [place] Laboratory Complement C3 127 mg/dL 06/01 [facility]. Studies [facility] [place] Laboratory Thyroid 2.92 uIU/mL 0.34 - 06/01 [facility] Studies Stimulating 5. [facility] - Hormone (TSH) [place] Laboratory Anti-Nuclear Anti-Nuclea 05/30 [facility] Studies Antibody r Antibody /2016 [facility] - Titer Titer [place] Laboratory Anti-Nuclear Anti-Nuclea 05/30 [facility] Studies Antibody r Antibody /2016 [facility] - Pattern Pattern [place] Laboratory Anti-Nuclear Anti-Nuclea 05/30 [facility] Studies Antibody r Antibody /2016 [facility] - Screen Screen [place] Laboratory Anti-Nuclear Anti-Nuclea 05/30 [facility] Studies Antibody r Antibody /2016 [facility] - Pattern 2 Pattern 2 [place] Laboratory Hepatitis C Hepatitis C 05/30 [facility] Studies Antibody Antibody /2016 [facility] [place] Laboratory Hepatitis C 0.03 ratio 05/30 [facility]. Studies Ab [facility] - Signal/Cutoff [place] Ratio Laboratory Hepatitis B Hepatitis B 05/30 [facility] Studies Surface Surface /2016 [facility] - Antigen Antigen [place] Laboratory Hepatitis B Hepatitis B 05/30 [facility] Studies Surface Ag Surface Ag [facility] - Confirmation Confirmatio [place] n Laboratory Hepatitis B Hepatitis B 05/30 [facility] Studies Core IgM Core IgM [facility] - Antibody Antibody [place] Laboratory Hepatitis A Hepatitis A 05/30 [facility] Studies IgM Antibody IgM /2016 [facility] - Antibody [place] Laboratory HIV-1 RNA, HIV-1 RNA, 05/30 [facility] Studies Qualitat Qualitat /2016 [facility] - (TMA) Comment (TMA) [place] Comment Laboratory HIV (1&2) Ag HIV (1&2) 05/30 [facility] Studies and Ab, 4th Ag and Ab, /2016 [facility] - Generation 4th [place] Generation Laboratory HIV (1&2) Ab HIV (1&2) 05/30 [facility]. Studies Differential Ab /2016 [facility] - Comment Differentia [place] l Comment Laboratory Creatine 162 IU/L 22 - 269 05/30 [facility]. Studies Kinase /2016 [facility] Vitamin B12 173 pg/ml 180 - 914 05/30 [facility]. Studies Level /2016 [facility] Total 0.4 mg/dL 0.3 - 1.2 05/30 [facility]. Studies Bilirubin /2016 [facility] [place] Laboratory Serum Total 6.5 g/dL 6.0 - 8.3 05/30 [facility]. Studies Protein [facility] - [place] Laboratory Globulin 3.1 g/dL 2.3 - 3.5 05/[address] [facility] St. Studies /2016 [facility] - [place] Laboratory Ferritin 337.4 ng/ml 23.9 - 05/30 [facility]. Studies 336.2 [facility] - [place] Laboratory Aspartate 12 IU/L 10 - 42 05/30 [facility]. Studies Amino Transf /2016 [facility] - (AST/SGOT) [place] Laboratory Alkaline 54 IU/L 42 - 121 05/30 [facility]. Studies Phosphatase /2016 [facility] - [place] Laboratory Albumin/Globu 1.1 1.1 - 1.8 05/30 [facility]. Studies mateo Ratio /2016 [facility] - [place] Laboratory Alanine 10 IU/L 10 - 60 05/30 [facility]. Studies Aminotransfer /2016 [facility] - ase [place] (ALT/SGPT) Laboratory White Blood 7.9 K/uL 4.3 - 10.9 05/30 [facility]. Studies Count /2016 [facility] - [place] Laboratory Red Cell 15.2 % 12.1 - 05/30 [facility]. Studies Distribution 15.2 [facility] - Width [place] Laboratory Red Blood 2.75 M/uL 4.33 - 05/[address] Studies Count 5.43 /2016 [facility] [place] Laboratory Platelet 314 K/uL 152 - 406 05/[address] [facility] St. Studies Count /2016 [facility] [place] Laboratory Neutrophils % 56.6 % 41.7 - 05/[address] [facility] St. Studies 73.7 /2016 [facility] [place] Laboratory Monocytes % 12.0 % 3.3 - 12.3 05/[address] [facility] St. Studies /2016 [facility] [place] Laboratory Mean Platelet 7.1 fL 7.6 - 11.3 05/[address] [facility] St. Studies Volume /2016 [facility] [place] Laboratory Mean 85.4 fL 80 - 100 05/[address] [facility] St. Studies Corpuscular /2016 [facility] - Volume [place] Laboratory Mean 34.1 g/dL 32.0 - 05/[address] [facility] St. Studies Corpuscular 36.0 /2016 [facility] - Hemoglobin [place] Concent Laboratory Mean 29.1 pg 27.0 - 05/30 [facility]. Studies Corpuscular 35.0 /2016 [facility] - Hemoglobin [place] Laboratory Lymphocytes % 25.1 % 15.3 - 05/[address] [facility] St. Studies 44.8 /2016 [facility] [place] Laboratory Hemoglobin 8.0 g/dL 13.6 - 05/[address] [facility] St. Studies 17.9 /2016 [facility] [place] Laboratory Hematocrit 23.5 % 39.6 - 05/[address] [facility] St. Studies 49.0 /2017 [facility] [place] Laboratory Eosinophils % 5.7 % 0 - 4.4 05/[address] [facility] St. Studies /2016 [facility] [place] Laboratory Basophils % 0.6 % 0 - 1.3 05/[address] [facility] St. Studies /2016 [facility] [place] Laboratory Absolute 4.5 K/uL 1.8 - 8.0 05/[address] [facility] St. Studies Neutrophil [facility] - [place] Laboratory Absolute 0.9 K/uL 0.1 - 1.3 05/[address] [facility] St. Studies Monocytes [facility] - (CBC) [place] Laboratory Absolute 2.0 K/uL 0.7 - 4.9 05/[address] [facility] St. Studies Lymphocytes [facility] - (CBC) [place] Laboratory Absolute 0.4 K/uL 0 - 0.5 05/[address] [facility] St. Studies Eosinophils [facility] - (CBC) [place] Laboratory Absolute 0.0 K/uL 0 - 0.5 05/[address] [facility] St. Studies Basophils /2016 [facility] - (CBC) [place] Laboratory Urine WBC null 05/29 St. Studies /2016 [facility] - [place] Laboratory Urine null 05/[address] [facility] St. Studies Squamous [facility] - Epithelial [place] Cells Laboratory Urine RBC Urine RBC 05/29 St. Studies [facility] - [place] Laboratory Urine Culture Urine 05/29 St. Studies Reflexed Culture [facility] - Reflexed [place] Laboratory Urine null 05/[address] [facility] St. Studies Bacteria /2016 [facility] - [place] Laboratory Urine Urine 05/29 [facility]. Studies Amorphous Amorphous [facility] - Sediment Sediment [place] Laboratory Direct null 0 - 0.2 05/[address] [facility] St. Studies Bilirubin [facility] - [place] Laboratory Amylase Level 70 U/L 28 - 100 05/29 St. Studies [facility] - [place] Laboratory Lipase 95 U/L 22 - 51 05/[address] [facility] St. Studies [facility] - [place] Laboratory Hemoglobin 7.3 % 4 - 6.0 05/[address] [facility] St. Studies A1c [facility] - [place] Laboratory Triglycerides 118 mg/dL 35 - 160 05/[address] [facility] St. Studies Level /2016 [facility] [place] Laboratory Magnesium 2.2 mg/dL 1.8 - 2.5 05/[address] [facility] St. Studies Level /2016 [facility] [place] Laboratory LDL 81 05/11 [facility]. Studies Cholesterol, /2016 [facility] - Calculated [place] Laboratory HDL 26 mg/dL 27 - 67 05/[address] [facility] St[address] Studies Cholesterol [facility] - [place] Laboratory Cholesterol/H 5.[address] [facility] St. Studies DL Ratio /2016 [facility] [place] Laboratory Cholesterol 131 mg/dL 05/[address] [facility] St. Studies Level /2016 [facility] [place] Laboratory Troponin I null 05/11 St. Studies [facility] [place] Laboratory Glomerular null 05/10 [facility]. Studies Basement [facility] - Membrane IgG [place] Ab Laboratory Urine pH 6.0 05/[address] [facility] St. Studies [facility] - [place] Laboratory Urine Total Urine Total 05/[address] [facility] St. Studies Protein Protein [facility] - [place] Laboratory Urine 1.020 05/[address] [facility] St. Studies Specific /2016 [facility] [place] Laboratory Urine Nitrite Urine 05/10 [facility]. Studies Nitrite [facility] - [place] Laboratory Urine Urine 05/10 [facility]. Studies Leukocyte Leukocyte [facility] - Esterase Esterase [place] Laboratory Urine Ketones Urine 05/[address] [facility] St. Studies Ketones [facility] - [place] Laboratory Urine Glucose Urine 05/[address] [facility] St. Studies Glucose [facility] - [place] Laboratory Urine Blood Urine Blood 05/[address] [facility] St. Studies /2016 [facility] [place] Laboratory Creatine 11.3 ng/ml 0.3 - 4.0 05/10 [facility]. Studies Kinase MB [facility] [place] Laboratory B-Type 594 pg/ml 05/10 [facility]. Studies Natriuretic [facility] - Peptide [place] Laboratory Rapid null 05/10 [facility]. Studies Troponin I [facility] - [place] Laboratory Prothrombin 11.3 9.5 - 12.5 05/10 [facility]. Studies Time SECONDS [facility] - [place] Laboratory INR 0.96 05/10 [facility]. Studies International /2016 [facility] - Normalized [place] Ratio Laboratory Activated 28.5 24.3 - 05/10 [facility]. Studies Partial SECONDS 36.9 [facility] - Thromboplast [place] Time Vital Signs Vital Sign Value Date Comments Source Temperature Oral (F) 97.5 F 06/05/[address] [facility] [place] Heart Rate 66 06/05/[address] [facility] St[facility] [place] Respitory Rate 18 06/05/[address] [facility] [place] Systolic (mm Hg) 131 06/05/[address] [facility] St[facility] [place] Diastolic (mm Hg) 62 06/05/[address] [facility] St[facility] [place] Height 75 06/05/[address] [facility] St[facility] kes - [place] Weight 228 06/05/[address] [facility] [place] Encounters Location Location Encounter Encounter Reason Attending ADM DC Status Source Details Type Number For Provider Date Date Visit [facility] Registered [id number] 04/[address] [facility] Ref[facility] [place] [facility]. Registered [id number] 04/[address] [facility] [place] [facility] Registered [id number] 04/[address] [facility] Referred 65 [facility] [place] [facility] St. Registered [id number] 04/[address] [facility] Referred [facility] [place] [facility] St. Departed [id number] 04/27 04/[address] [facility] St[facility] Surgical 73 /2016 [facility] [place] [facility] [place] [facility] St. Discharged [id number] 05/10 05/[address] [facility] Inpatient 99 /2016 [facility] [place] [facility] St. Discharged [id number] 06/01 06/[address] [facility] Inpatient 75 /2016 [facility] [place] Procedures Procedure Code Date Perfomer Comments Source Chest Single [id number] 06/03/[address] [facility] - View [place] Chest Pa And Lat [id number] 06/02/[address] [facility] - (2 Views) [place] Abdomen & Pelvis [id number] 05/29/[address] [facility] - Wo Contrast [place] Chest Pa And Lat [id number] 05/11/[address] [facility] - (2 Views) [place] Abdomen & Pelvis [id number] 05/10/[address] [facility] - Wo Contrast [place] Chest Single [id number] 05/10/[address] [facility] - View [place] REMOVAL OF [id number] 04/27/[address] [facility] - INFUSION DEVICE [place] FROM UPPER VEIN, OPEN APPROACH REMOVAL TUNNELED [id number] 04/27/[address] [facility] - CV CATH [place]
--- OUTSIDE RECORDS SUMMARY | 2018-11-29 19:04 | XMS REPORT ---
:1965 Author Organization [facility] Address [address] [place] [address] [address] [place] [address] Care Team Providers Name Role Phone DWIGHT MCHUGH Unavailable Unavailable Problems This patient has no known problems. Allergies, Adverse Reactions, Alerts This patient has no known allergies or adverse reactions. Medications This patient has no known medications. Encounters Start End Encounter Admission Attending Care Care Encounter Date/Time Date/Time Type Type Clinicians Facility Department ID 2018-10-31 2018-10-31 Outpatient [facility] 750 10:40:00 10:40:00 Results Test Description Test Time Test Comments Text Results Atomic Results Result Comments POCT-GLUCOSE METER 2017-06-15 17:36:00 Test Item Value Reference Range Comments POC-GLUCOSE METER (BEAKER) (test 243 mg/dL 70-110 TESTED AT [facility] [address] pidz=2674) [facility] [address] BASIC METABOLIC [id number] 13:51:00 Test Item Value Reference Range Comments SODIUM (BEAKER) (test 139 meq/L 135-148 ucus=062) POTASSIUM (BEAKER) (test 3.4 meq/L 3.6-5.5 atux=191) CHLORIDE (BEAKER) (test 101 meq/L 98-106 ljxk=240) CO2 (BEAKER) (test 29 meq/L 20-29 snli=151) BLOOD UREA NITROGEN 11 mg/dL 10-26 (BEAKER) (test ffeo=039) CREATININE (BEAKER) (test 2.10 mg/dL 0.50-1.20 xori=918) GLUCOSE RANDOM (BEAKER) 157 mg/dL 70-110 (test ivvq=514) CALCIUM (BEAKER) (test 8.6 mg/dL 8.5-10.5 lidl=949) EGFR (BEAKER) (test 33 mL/min/1.73 sq m ESTIMATED GFR IS NOT quik=4281) ACCURATE CREATININE CLEARANCE IN PREDICTING GLOMERULAR FILTRATION RATE. ESTIMATED GFR IS NOT APPLICABLE FOR DIALYSIS PATIENTS. [id number] 13:44:00 Test Item Value Reference Range Comments MAGNESIUM (BEAKER) (test pcya=319) 1.9 mg/dL 1.5-3.0 CBC W/PLT COUNT & AUTO [id number] 13:34:00 Test Item Value Reference Range Comments WHITE BLOOD CELL COUNT (BEAKER) (test wbzi=414) 6.8 K/ L 4.0-10.0 RED BLOOD CELL COUNT (BEAKER) (test mphw=524) 2.92 M/ L 4.20-5.80 HEMOGLOBIN (BEAKER) (test dqfq=168) 8.4 GM/DL 13.0-16.8 HEMATOCRIT (BEAKER) (test mezv=144) 25.5 % 40.0-50.0 MEAN CORPUSCULAR VOLUME (BEAKER) (test mhjd=370) 87.4 fL 82.0-98.0 MEAN CORPUSCULAR HEMOGLOBIN (BEAKER) (test 28.7 pg 27.0-33.0 ephx=663) MEAN CORPUSCULAR HEMOGLOBIN CONC (BEAKER) (test 32.8 GM/DL 32.0-36.0 vanw=428) RED CELL DISTRIBUTION WIDTH (BEAKER) (test 14.7 % 10.3-14.2 mzkq=988) PLATELET COUNT (BEAKER) (test mgna=780) 299 K/CU MM 150-430 MEAN PLATELET VOLUME (BEAKER) (test uyle=462) 6.9 fL 6.5-10.5 NUCLEATED RED BLOOD CELLS (BEAKER) (test 0 /100 WBC 0-0 ehop=826) NEUTROPHILS RELATIVE PERCENT (BEAKER) (test 65 % dxqz=524) LYMPHOCYTES RELATIVE PERCENT (BEAKER) (test 18 % oanv=999) MONOCYTES RELATIVE PERCENT (BEAKER) (test 14 % tfon=600) EOSINOPHILS RELATIVE PERCENT (BEAKER) (test 3 % zpol=847) BASOPHILS RELATIVE PERCENT (BEAKER) (test 1 % ialk=867) NEUTROPHILS ABSOLUTE COUNT (BEAKER) (test 4.40 K/ L 1.80-8.00 bcps=757) LYMPHOCYTES ABSOLUTE COUNT (BEAKER) (test 1.20 K/ L 1.48-4.50 busj=239) MONOCYTES ABSOLUTE COUNT (BEAKER) (test 1.00 K/ L 0.00-1.30 uysh=799) EOSINOPHILS ABSOLUTE COUNT (BEAKER) (test 0.20 K/ L 0.00-0.50 nobe=030) BASOPHILS ABSOLUTE COUNT (BEAKER) (test 0.00 K/ L 0.00-0.20 qqvq=028) POCT-GLUCOSE [id number] 11:28:00 Test Item Value Reference Range Comments POC-GLUCOSE METER (BEAKER) 147 mg/dL 70-110 TESTED AT [address] (test nhwm=9367) [facility] [address] POCT-GLUCOSE [id number] 06:04:00 Test Item Value Reference Range Comments POC-GLUCOSE METER (BEAKER) 137 mg/dL 70-110 TESTED AT [address] (test ohgi=3806) [place] [address] POCT-GLUCOSE [id number] 21:01:00 Test Item Value Reference Range Comments POC-GLUCOSE METER (BEAKER) 138 mg/dL 70-110 TESTED AT [address] (test sfcl=1529) [place] [address] POCT-GLUCOSE [id number] 16:06:00 Test Item Value Reference Range Comments POC-GLUCOSE METER (BEAKER) 167 mg/dL 70-110 TESTED AT [address] (test utsn=6707) [place] [address] POCT-GLUCOSE [id number] 12:49:00 Test Item Value Reference Range Comments POC-GLUCOSE METER (BEAKER) 144 mg/dL 70-110 TESTED AT [address] (test psne=8653) [place] [address] [id number] 10:27:00 Test Item Value Reference Range Comments POC-CREATININE (BEAKER) 3.6 mg/dL 0.6-1.3 TESTED AT [address] (test efhe=7593) [place] [address] POC-EGFR (BEAKER) (test 18 mL/min/1.73M2 wyxt=9938) [id number] 10:27:00 Test Item Value Reference Range Comments POC-SODIUM (BEAKER) (test 138 meq/L 135-148 TESTED AT [address] oyxe=4183) [place] [address] [id number] 10:27:00 Test Item Value Reference Range Comments POC-POTASSIUM (BEAKER) 3.6 meq/L 3.6-5.5 TESTED AT [address] (test azdu=1375) [place] [address] [id number] 10:27:00 Test Item Value Reference Range Comments POC-BUN (BEAKER) (test 20 mg/dL 7-21 TESTED AT [address] jsig=5667) [place] [address] [id number] 10:27:00 Test Item Value Reference Range Comments POC-CHLORIDE (BEAKER) (test 97 meq/L 98-107 TESTED AT [address] cjbq=3721) [place] [address] [id number] 10:27:00 Test Item Value Reference Range Comments POC-GLUCOSE (BEAKER) (test 123 mg/dL 70-110 TESTED AT [address] iqoq=3829) [place] [address] [id number] 10:27:00 Test Item Value Reference Range Comments POC-HEMATOCRIT (BEAKER) (test 24 % 40-50 TESTED AT [address] dcbf=7952) [place] [address] [id number] 10:27:00 Test Item Value Reference Range Comments POC-HEMOGLOBIN (BEAKER) 8.2 g/dL 13.0-16.8 TESTED AT [address] (test evdg=0512) [place] [address] [id number] 10:27:00 Test Item Value Reference Range Comments POC-TCO2 (BEAKER) (test 30 meq/L 22-29 TESTED AT [address] pjec=7992) [place] [address] POCT-GLUCOSE [id number] 06:08:00 Test Item Value Reference Range Comments POC-GLUCOSE METER (BEAKER) 163 mg/dL 70-110 TESTED AT [address] (test nfwh=2000) [facility] [address] POCT-GLUCOSE [id number] 21:07:00 Test Item Value Reference Range Comments POC-GLUCOSE METER (BEAKER) 132 mg/dL 70-110 TESTED AT [address] (test xjyl=2296) [facility] [address] POCT-GLUCOSE [id number] 12:58:00 Test Item Value Reference Range Comments POC-GLUCOSE METER (BEAKER) 178 mg/dL 70-110 TESTED AT [address] (test loid=0518) [facility] [address] POCT-GLUCOSE [id number] 05:29:00 Test Item Value Reference Range Comments POC-GLUCOSE METER (BEAKER) 171 mg/dL 70-110 TESTED AT [address] (test psaq=5042) [facility] [address] POCT-GLUCOSE [id number] 22:03:00 Test Item Value Reference Range Comments POC-GLUCOSE METER (BEAKER) 249 mg/dL 70-110 TESTED AT [address] (test tppd=8847) [facility] [address] POCT-GLUCOSE [id number] 16:45:00 Test Item Value Reference Range Comments POC-GLUCOSE METER (BEAKER) 213 mg/dL 70-110 TESTED AT [address] (test ooxf=3592) [facility] [address] [id number] 16:43:00 Test Item Value Reference Range Comments THYROID STIMULATING HORMONE (BEAKER) (test 2.09 uIU/mL 0.35-5.50 jdjk=453) COMPREHENSIVE METABOLIC [id number] 16:24:00 Test Item Value Reference Range Comments TOTAL PROTEIN (BEAKER) 7.2 gm/dL 6.0-8.5 (test wioa=911) ALBUMIN (BEAKER) (test 3.5 g/dL 3.5-5.0 ahxs=0713) ALKALINE PHOSPHATASE 67 U/L 30-115 (BEAKER) (test fmij=413) BILIRUBIN TOTAL (BEAKER) 0.3 mg/dL 0.1-1.2 (test yvks=181) SODIUM (BEAKER) (test 136 meq/L 135-148 ebsp=652) POTASSIUM (BEAKER) (test 4.1 meq/L 3.6-5.5 ykqv=874) CHLORIDE (BEAKER) (test 98 meq/L 98-106 yrdf=061) CO2 (BEAKER) (test 26 meq/L 20-29 lgzi=028) BLOOD UREA NITROGEN 32 mg/dL 10-26 (BEAKER) (test ouqq=380) CREATININE (BEAKER) (test 4.40 mg/dL 0.50-1.20 oskw=387) GLUCOSE RANDOM (BEAKER) 212 mg/dL 70-110 (test wwbr=093) CALCIUM (BEAKER) (test 9.0 mg/dL 8.5-10.5 xcug=904) AST (SGOT) (BEAKER) (test 14 U/L 5-40 nzpj=154) ALT (SGPT) (BEAKER) (test 4 U/L 5-50 hbkc=194) EGFR (BEAKER) (test 14 mL/min/1.73 sq m ESTIMATED GFR IS NOT ulut=3157) ACCURATE CREATININE CLEARANCE IN PREDICTING GLOMERULAR FILTRATION RATE. ESTIMATED GFR IS NOT APPLICABLE FOR DIALYSIS PATIENTS. CBC W/PLT COUNT & AUTO [id number] 16:02:00 Test Item Value Reference Range Comments WHITE BLOOD CELL COUNT (BEAKER) (test djrz=152) 6.9 K/ L 4.0-10.0 RED BLOOD CELL COUNT (BEAKER) (test tfyj=360) 2.95 M/ L 4.20-5.80 HEMOGLOBIN (BEAKER) (test tfck=472) 8.6 GM/DL 13.0-16.8 HEMATOCRIT (BEAKER) (test wjdg=373) 25.9 % 40.0-50.0 MEAN CORPUSCULAR VOLUME (BEAKER) (test fshf=693) 87.9 fL 82.0-98.0 MEAN CORPUSCULAR HEMOGLOBIN (BEAKER) (test 29.0 pg 27.0-33.0 cnxc=392) MEAN CORPUSCULAR HEMOGLOBIN CONC (BEAKER) (test 33.0 GM/DL 32.0-36.0 eiyy=054) RED CELL DISTRIBUTION WIDTH (BEAKER) (test 15.0 % 10.3-14.2 mzlo=787) PLATELET COUNT (BEAKER) (test gjwx=866) 330 K/CU MM 150-430 MEAN PLATELET VOLUME (BEAKER) (test xisi=488) 7.1 fL 6.5-10.5 NUCLEATED RED BLOOD CELLS (BEAKER) (test 0 /100 WBC 0-0 sbis=736) NEUTROPHILS RELATIVE PERCENT (BEAKER) (test 66 % jkfa=544) LYMPHOCYTES RELATIVE PERCENT (BEAKER) (test 16 % ayvw=255) MONOCYTES RELATIVE PERCENT (BEAKER) (test 12 % dyvg=352) EOSINOPHILS RELATIVE PERCENT (BEAKER) (test 5 % mnav=173) BASOPHILS RELATIVE PERCENT (BEAKER) (test 1 % mpaw=783) NEUTROPHILS ABSOLUTE COUNT (BEAKER) (test 4.60 K/ L 1.80-8.00 tlpd=986) LYMPHOCYTES ABSOLUTE COUNT (BEAKER) (test 1.10 K/ L 1.48-4.50 bmiq=191) MONOCYTES ABSOLUTE COUNT (BEAKER) (test 0.80 K/ L 0.00-1.30 obad=943) EOSINOPHILS ABSOLUTE COUNT (BEAKER) (test 0.30 K/ L 0.00-0.50 vfyu=205) BASOPHILS ABSOLUTE COUNT (BEAKER) (test 0.10 K/ L 0.00-0.20 dtzr=286) PROTHROMBIN [id number] 16:01:00 Test Item Value Reference Range Comments PROTIME (BEAKER) (test vlgd=971) 10.3 seconds 9.3-12.0 INR (BEAKER) (test fnyc=799) 1.0 <=5.9 RECOMMENDED COUMADIN/WARFARIN INR THERAPY RANGESSTANDARD DOSE: 2.0 - 3.0 Includes: PROPHYLAXIS forvenous thrombosis, systemic embolization; TREATMENT for venous thrombosis and/or pulmonary embolus.HIGH RISK: Target INR is 2.5-3.5 for patients with mechanical heart valves.POCT-GLUCOSE [id number] 12:01:00 Test Item Value Reference Range Comments POC-GLUCOSE METER (BEAKER) 211 mg/dL 70-110 TESTED AT [address] (test sbtp=3111) [facility] [address] POCT-GLUCOSE [id number] 06:08:00 Test Item Value Reference Range Comments POC-GLUCOSE METER (BEAKER) 191 mg/dL 70-110 TESTED AT [facility] [address] [place] [address] (test iyoh=6166) [facility] [address] POCT-GLUCOSE [id number] 21:28:00 Test Item Value Reference Range Comments POC-GLUCOSE METER (BEAKER) 233 mg/dL 70-110 TESTED AT [address] (test djfe=9791) [facility] [address] POCT-GLUCOSE [id number] 16:19:00 Test Item Value Reference Range Comments POC-GLUCOSE METER (BEAKER) 290 mg/dL 70-110 TESTED AT [address] (test uoud=2964) [facility] [address] POCT-GLUCOSE [id number] 13:33:00 Test Item Value Reference Range Comments POC-GLUCOSE METER (BEAKER) 186 mg/dL 70-110 TESTED AT [address] (test djzu=1528) [facility] [address] POCT-GLUCOSE [id number] 06:27:00 Test Item Value Reference Range Comments POC-GLUCOSE METER (BEAKER) 204 mg/dL 70-110 TESTED AT [address] (test djnh=6884) [facility] [address] POCT-GLUCOSE [id number] 21:40:00 Test Item Value Reference Range Comments POC-GLUCOSE METER (BEAKER) 267 mg/dL 70-110 TESTED AT [address] (test pfhg=8372) [facility] [address] POCT-GLUCOSE [id number] 17:32:00 Test Item Value Reference Range Comments POC-GLUCOSE METER (BEAKER) 221 mg/dL 70-110 TESTED AT [address] (test vwpz=3934) [facility] [address] HEPATITIS B SURFACE [id number] 14:21:00 Test Item Value Reference Range Comments HEPATITIS B SURFACE ANTIBODY (BEAKER) (test < mIU/mL <8.0 oaxz=262) HEPATITIS B CORE ANTIBODY, [id number] 14:15:00 Test Item Value Reference Range Comments HEPATITIS B CORE TOTAL ANTIBODY (BEAKER) (test Nonreactive Nonreactive wtfg=119) POCT-GLUCOSE [id number] 12:18:00 Test Item Value Reference Range Comments POC-GLUCOSE METER (BEAKER) 193 mg/dL 70-110 TESTED AT [address] (test pfci=5012) [facility] [address] RAD, CHEST, 1 VIEW, NON [id number] 08:49:00Reason for exam:->for outpatient HD placementShould this [...] in size. No fracture. Signed: Sachi Hammer Verified Date/Time: 06/10/2017 08:49:42 Reading Location: [facility] Radiology Reading Room Electronically signed by: SACHI HAMMER on 2016 08:49 AMPOCT-GLUCOSE [id number] 06:53:00 Test Item Value Reference Range Comments POC-GLUCOSE METER (BEAKER) 177 mg/dL 70-110 TESTED AT [address] (test zfbi=2676) [facility] [address] POCT-GLUCOSE [id number] 22:10:00 Test Item Value Reference Range Comments POC-GLUCOSE METER (BEAKER) 109 mg/dL 70-110 TESTED AT [address] (test epeh=1140) [facility] [address] HEPATITIS B SURFACE [id number] 20:18:00 Test Item Value Reference Range Comments HEPATITIS B SURFACE ANTIGEN (2) (BEAKER) (test Nonreactive Nonreactive usjp=8572) POCT-GLUCOSE [id number] 17:08:00 Test Item Value Reference Range Comments POC-GLUCOSE METER (BEAKER) 223 mg/dL 70-110 TESTED AT [address] (test fsgk=6393) [facility] [address] POCT-GLUCOSE [id number] 12:47:00 Test Item Value Reference Range Comments POC-GLUCOSE METER (BEAKER) 200 mg/dL 70-110 TESTED AT [address] (test cnqo=0528) [facility] [address] ANG, TUNNELED CATHETER [id number] 12:13:00Reason for exam:->renal failureFINAL REPORT Tunneled central [...] the patient's medical record by the nurse. System Operator: Onesimo Lopez MD. Sort Worker: None. Approach: Right internal jugular vein Estimated [...] needle into the right atrium. A 4 Serbian micropuncture sheath was placed. A subcutaneous tunnel was created in the right anterior chest wall by blunt dissection. A 19 cm tipped cuff 15.5 Serbian Duraflow 2 catheter was brought through the [...] is ready for immediate use. Signed: Onesimo Lopezeport Verified Date/Time: 06/09/2017 12:13:36 Reading Location: [facility] Radiology Reading Room 12 :13 PMPOCT-GLUCOSE [id number] 06:03:00 Test Item Value Reference Range Comments POC-GLUCOSE METER (BEAKER) 208 mg/dL 70-110 TESTED AT [facility] [address] [facility] (test kgth=4148) [address] [address] BASIC METABOLIC [id number] 06:00:00 Test Item Value Reference Range Comments SODIUM (BEAKER) (test 139 meq/L 135-148 dmvg=427) POTASSIUM (BEAKER) (test 3.5 meq/L 3.6-5.5 wxjv=062) CHLORIDE (BEAKER) (test 103 meq/L 98-106 jryb=153) CO2 (BEAKER) (test 26 meq/L 20-29 zjtv=508) BLOOD UREA NITROGEN 62 mg/dL 10-26 (BEAKER) (test tbts=273) CREATININE (BEAKER) (test 5.10 mg/dL 0.50-1.20 cfsq=041) GLUCOSE RANDOM (BEAKER) 191 mg/dL 70-110 (test bwmt=887) CALCIUM (BEAKER) (test 9.0 mg/dL 8.5-10.5 bceq=323) EGFR (BEAKER) (test 12 mL/min/1.73 sq m ESTIMATED GFR IS NOT upix=5761) ACCURATE CREATININE CLEARANCE IN PREDICTING GLOMERULAR FILTRATION RATE. ESTIMATED GFR IS NOT APPLICABLE FOR DIALYSIS PATIENTS. HEPATIC FUNCTION [id number] 05:58:00 Test Item Value Reference Range Comments TOTAL PROTEIN (BEAKER) (test ntbe=825) 6.3 gm/dL 6.0-8.5 ALBUMIN (BEAKER) (test lgie=1634) 3.2 g/dL 3.5-5.0 BILIRUBIN TOTAL (BEAKER) (test iofm=336) 0.4 mg/dL 0.1-1.2 BILIRUBIN DIRECT (BEAKER) (test wwwi=325) 0.2 mg/dL 0.0-0.4 ALKALINE PHOSPHATASE (BEAKER) (test cpon=027) 67 U/L 30-115 AST (SGOT) (BEAKER) (test skio=375) 13 U/L 5-40 ALT (SGPT) (BEAKER) (test hiav=810) 10 U/L 5-50 CBC W/PLT COUNT & AUTO [id number] 05:56:00 Test Item Value Reference Range Comments WHITE BLOOD CELL COUNT (BEAKER) (test azpc=713) 6.3 K/ L 4.0-10.0 RED BLOOD CELL COUNT (BEAKER) (test limt=522) 2.71 M/ L 4.20-5.80 HEMOGLOBIN (BEAKER) (test xdsj=055) 7.8 GM/DL 13.0-16.8 HEMATOCRIT (BEAKER) (test gsjz=870) 23.6 % 40.0-50.0 MEAN CORPUSCULAR VOLUME (BEAKER) (test nvds=273) 86.8 fL 82.0-98.0 MEAN CORPUSCULAR HEMOGLOBIN (BEAKER) (test 28.6 pg 27.0-33.0 lcgw=124) MEAN CORPUSCULAR HEMOGLOBIN CONC (BEAKER) (test 33.0 GM/DL 32.0-36.0 ukrn=842) RED CELL DISTRIBUTION WIDTH (BEAKER) (test 14.8 % 10.3-14.2 hpct=957) PLATELET COUNT (BEAKER) (test zbbi=624) 334 K/CU MM 150-430 MEAN PLATELET VOLUME (BEAKER) (test zact=213) 6.9 fL 6.5-10.5 NUCLEATED RED BLOOD CELLS (BEAKER) (test 0 /100 WBC 0-0 affq=875) NEUTROPHILS RELATIVE PERCENT (BEAKER) (test 57 % zhjt=799) LYMPHOCYTES RELATIVE PERCENT (BEAKER) (test 19 % sroj=894) MONOCYTES RELATIVE PERCENT (BEAKER) (test 15 % rbal=466) EOSINOPHILS RELATIVE PERCENT (BEAKER) (test 7 % caqd=231) BASOPHILS RELATIVE PERCENT (BEAKER) (test 1 % ecoc=260) NEUTROPHILS ABSOLUTE COUNT (BEAKER) (test 3.60 K/ L 1.80-8.00 pdjf=667) LYMPHOCYTES ABSOLUTE COUNT (BEAKER) (test 1.20 K/ L 1.48-4.50 eeuo=410) MONOCYTES ABSOLUTE COUNT (BEAKER) (test 1.00 K/ L 0.00-1.30 wwau=531) EOSINOPHILS ABSOLUTE COUNT (BEAKER) (test 0.50 K/ L 0.00-0.50 hirw=659) BASOPHILS ABSOLUTE COUNT (BEAKER) (test 0.10 K/ L 0.00-0.20 oduw=347) [id number] 05:55:00 Test Item Value Reference Range Comments PHOSPHORUS (BEAKER) (test ojud=772) 4.1 mg/dL 2.5-4.5 [id number] 05:51:00 Test Item Value Reference Range Comments PROTIME (BEAKER) (test hsvu=949) 10.7 seconds 9.3-12.0 INR (BEAKER) (test nimq=712) 1.0 <=5.9 PARTIAL THROMBOPLASTIN TIME (BEAKER) (test 28.5 seconds 23.0-35.0 hhxn=116) RECOMMENDED COUMADIN/WARFARIN INR THERAPY RANGESSTANDARD DOSE: 2.0 - 3.0 Includes: PROPHYLAXIS forvenous thrombosis, systemic embolization; TREATMENT for venous thrombosis and/or pulmonary embolus.HIGH RISK: Target INR is 2.5-3.5 for patients with mechanical heart valves.[id number] 05:50:00 Test Item Value Reference Range Comments MAGNESIUM (BEAKER) (test kznn=450) 1.7 mg/dL 1.5-3.0 POCT-GLUCOSE [id number] 23:14:00 Test Item Value Reference Range Comments POC-GLUCOSE METER (BEAKER) 230 mg/dL 70-110 TESTED AT [facility] [address] [place] [address] (test qyth=9085) [facility] [address]
--- NOTE | 2018-11-29 20:02 | RAD REPORT ---
EXAM DESCRIPTION: RAD - Knee Left 3 View - 11/29/2018 7:49 pm CLINICAL HISTORY: Fall, left knee pain COMPARISON: None. FINDINGS: No fracture, dislocation or periosteal reaction.No joint effusion seen. No joint space marcell rowing. No soft tissue abnormality. Dense arterial tree calcifications are present. IMPRESSION: Negative left knee for acute finding. Clinical concerns for internal derangement or occult bony injury could be further assessed with MR im aging.
[2018-11-29] MEDS ORDERED: HYDROCODONE/APAP 5/325 MG TAB ONE ×2 (20:05→20:30)
--- NOTE | 2018-11-29 21:16 | EDPHYS ---
Physician Documentation [facility] Name: Yusuf Bah Age: 53 yrs Sex: Male : 1965 Arrival Date: 11/29/2018 Time: 19:02 Bed 30 Private MD: ED Physician Chito Melendez HPI: 11/29 19:26 This 53 yrs old Male presents to ER via Wheelchair with complaints of Knee jmm Injury. 19:26 The patient presents with an injury, pain, that is acute. Onset: The symptoms/episode jmm began/occurred acutely, today. Modifying factors: The symptoms are alleviated by nothing. the symptoms are aggravated by movement, weight bearing. This is a 53 year old male that presents to the ED with complaints of left knee pain. Patient states falling due to ongoing muscle weakness on his left knee. Patient states pain has increased through out the day. Pain is localized to the left medial knee. Patient denies other injury. . Historical: - Allergies: 19:06 Sulfa (Sulfonamide Antibiotics); aj - Immunization history:: Adult Immunizations up to date, Last tetanus immunization: up to date. - Social history:: Smoking status: Patient/guardian denies using tobacco. - Ebola Screening: : Patient negative for fever greater than or equal to 101.5 degrees Fahrenheit, and additional compatible Ebola Virus Disease symptoms Patient denies exposure to infectious person Patient denies travel to an Ebola-affected area in the 21 days before illness onset. ROS: 19:26 Constitutional: Negative for fever, chills, and weight loss, Cardiovascular: Negative jmm for chest pain, palpitations, and edema, Respiratory: Negative for shortness of breath, cough, wheezing, and pleuritic chest pain. 19:26 MS/extremity: Positive for injury or acute deformity, pain. 19:26 All other systems are negative. Exam: 19:26 Head/Face: atraumatic. Chest/axilla: Normal chest wall appearance and motion. jmm Cardiovascular: Regular rate and rhythm. No edema appreciated Respiratory: Normal respirations, no respiratory distress appreciated Abdomen/GI: Non distended, soft 19:26 Constitutional: The patient appears alert, awake, uncomfortable. 19:26 Musculoskeletal/extremity: ROM: painful passive rom, pain on palpation of the left medial knee, compartments are soft, NVI. 19:26 Skin: Appearance: Color: normal in color. 19:26 Neuro: Orientation: is normal, Mentation: is normal, Memory: is normal. 19:26 Psych: Behavior/mood is pleasant, cooperative. Vital Signs: 19:06 BP 151 / 76; Pulse 71; Resp 18; Temp 98.1; Pulse Ox 97% on R/A; Weight 97.07 kg; Height aj 6 ft. 3 in. (190.50 cm); 19:25 BP 148 / 71; Pulse 72; Resp 17 S; Pulse Ox 98% on R/A; ca1 21:15 BP 160 / 82; Pulse 72; Resp 17 S; Pulse Ox 99% on R/A; ca1 19:06 Body Mass Index 26.75 (97.07 kg, 190.50 cm) Procedures: 19:26 Splinting: Splint applied to left leg using knee immobilizer, applied by tech. Examined jmm by me, post splint application: neurovascular intact, 2+ distal pulses palpable, brisk capillary refill noted, Patient tolerated well. MDM: 19:26 Patient medically screened. [facility] 21:14 Data reviewed: vital signs, nurses notes. Counseling: I had a detailed discussion with [facility] the patient and/or guardian regarding: the historical points, exam findings, and any diagnostic results supporting the discharge/admit diagnosis, radiology results, the need for outpatient follow up, to return to the emergency department if symptoms worsen or persist or if there are any questions or concerns that arise at home. 21:14 ED course: Patient is advised to follow up with orthopedics for further evaluation due jmm to ongoing pain. Patient is otherwise given strict return precautions. Patient understood and agrees with the plan of care. . 11/29 19:26 Order name: Knee Left 3 View XRAY; Complete Time: 20:07 [facility] 11/29 20:05 Order name: Fer wrap-joint; Complete Time: 20:22 [facility] 11/29 20:05 Order name: Wound Care; Complete Time: 20:22 [facility] 11/29 20:35 Order name: Knee Immobilizer; Complete Time: 21:17 [facility] Administered Medications: 19:50 Drug: [place] 5 mg-325 mg 1 tabs Route: PO; ca1 21:15 Follow up: Response: No adverse reaction; Pain is decreased ca1 20:12 Drug: [place] 5 mg-325 mg 1 tabs Route: PO; ca1 21:15 Follow up: Response: No adverse reaction; Pain is decreased ca1 Disposition: 11/30 07:32 Co-signature as Attending Physician, Chito Melendez MD I agree with the assessment and kdr plan of care. Disposition: 11/29/18 21:16 Discharged to Home. Impression: Internal derangement of knee. - Condition is Stable. - Discharge Instructions: Knee Pain. - Medication Reconciliation Form, Thank You Letter, Antibiotic Education, Prescription Opioid Use form. - Follow up: Yusuf Carroll MD; When: 2 - 3 days; Reason: Recheck today's complaints, Continuance of care, Re-evaluation by your physician. Signatures: Dispatcher [employer] EDLena Garcia, RN RN Chito Dixon MD MD kdr Mickail, Joel, PA PA m Pam Candelario RN RN ca1 Corrections: (The following items were deleted from the chart) 11/29 21:33 21:16 11/29/2018 21:16 Discharged to Home. Impression: Internal derangement of knee. ca1 Condition is Stable. Forms are Medication Reconciliation Form, Thank You Letter, Antibiotic Education, Prescription Opioid Use. Follow up: Yusuf Carroll; When: 2 - 3 days; Reason: Recheck today's complaints, Continuance of care, Re-evaluation by your physician. keyla
--- NOTE | 2018-11-29 21:16 | ER ---
Nurse's Notes [facility] Name: Yusuf Bah Age: 53 yrs Sex: Male : 1965 Arrival Date: 11/29/2018 Time: 19:02 Bed 30 Private MD: Diagnosis: Internal derangement of knee Presentation: 11/29 19:05 Presenting complaint: Patient states: Fall onto left knee today at 1300. Abrasion noted aj with minimal swelling. Care prior to arrival: None. 19:05 Acuity: ALVERTO 4 aj 19:05 Method Of Arrival: Wheelchair aj 19:44 Transition of care: patient was not received from another setting of care. Onset of ca1 symptoms was November 29, 2018. Risk Assessment: Do you want to hurt yourself or someone else? Patient reports no desire to harm self or others. Initial Sepsis Screen: Does the patient meet any 2 criteria? No. Patient's initial sepsis screen is negative. Does the patient have a suspected source of infection? No. Patient's initial sepsis screen is negative. Triage Assessment: 19:06 General: Appears in no apparent distress. comfortable, Behavior is calm, cooperative, aj appropriate for age. Pain: Complains of pain in left knee. Neuro: Level of Consciousness is awake, alert, obeys commands, Oriented to person, place, time, situation, Appropriate for age. Respiratory: Airway is patent Respiratory effort is even, unlabored, Respiratory pattern is regular, symmetrical. Derm: Skin is intact, is healthy with good turgor, Skin is pink, warm \T\ dry. normal. Musculoskeletal: Reports pain in left knee. Injury Description: Abrasion sustained to left knee. Historical: - Allergies: 19:06 Sulfa (Sulfonamide Antibiotics); aj - Immunization history:: Adult Immunizations up to date, Last tetanus immunization: up to date. - Social history:: Smoking status: Patient/guardian denies using tobacco. - Ebola Screening: : Patient negative for fever greater than or equal to 101.5 degrees Fahrenheit, and additional compatible Ebola Virus Disease symptoms Patient denies exposure to infectious person Patient denies travel to an Ebola-affected area in the 21 days before illness onset. Screenin:25 Abuse screen: Denies threats or abuse. Denies injuries from another. Nutritional ca1 screening: No deficits noted. Tuberculosis screening: No symptoms or risk factors identified. Fall Risk Fall in past 12 months (25 points). Assessment: 19:25 General: Appears in no apparent distress. comfortable, Behavior is calm, cooperative, ca1 appropriate for age. Pain: Complains of pain in left knee Pain currently is 9 out of 10 on a pain scale. Pain began 4 hours ago. Aggravated by repositioning, weight bearing. Neuro: Level of Consciousness is awake, alert, obeys commands, Oriented to person, place, time, situation. Cardiovascular: Heart tones S1 S2 present Capillary refill < 3 seconds Patient's skin is warm and dry. Respiratory: Airway is patent Respiratory effort is even, unlabored, Respiratory pattern is regular, symmetrical, Breath sounds are clear bilaterally. GI: No deficits noted. No signs and/or symptoms were reported involving the gastrointestinal system. : No deficits noted. No signs and/or symptoms were reported regarding the genitourinary system. EENT: No deficits noted. No signs and/or symptoms were reported regarding the EENT system. Derm: Skin is healthy with good turgor, Skin is pink, warm \T\ dry. Musculoskeletal: Circulation, motion, and sensation intact. Capillary refill < 3 seconds, Range of motion: limited in left knee. Injury Description: Abrasion sustained to left knee is bleeding, was sustained 4-6 hours ago. 20:24 Reassessment: Patient appears in no apparent distress at this time. Patient and/or ca1 family updated on plan of care and expected duration. Pain level reassessed. Patient is alert, oriented x 3, equal unlabored respirations, skin warm/dry/pink. Wound care done and morgan wrap applied on L knee. 21:15 Reassessment: Patient appears in no apparent distress at this time. Patient is alert, ca1 oriented x 3, equal unlabored respirations, skin warm/dry/pink. Vital Signs: 19:06 BP 151 / 76; Pulse 71; Resp 18; Temp 98.1; Pulse Ox 97% on R/A; Weight 97.07 kg; Height aj 6 ft. 3 in. (190.50 cm); 19:25 BP 148 / 71; Pulse 72; Resp 17 S; Pulse Ox 98% on R/A; ca1 21:15 BP 160 / 82; Pulse 72; Resp 17 S; Pulse Ox 99% on R/A; ca1 19:06 Body Mass Index 26.75 (97.07 kg, 190.50 cm) ED Course: 19:02 Patient arrived in ED. as 19:06 Triage completed. aj 19:06 Arm band placed on left wrist. Patient placed in an exam room. aj 19:20 Pam Candelario, RN is Primary Nurse. ca1 19:22 Frederick Pappas PA is PHCP. [facility] 19:22 Chito Melendez MD is Attending Physician. [facility] 19:25 Patient has correct armband on for positive identification. Bed in low position. Call ca1 light in reach. Side rails up X 1. Pulse ox on. NIBP on. 19:25 No provider procedures requiring assistance completed. ca1 19:49 Knee Left 3 View XRAY In Process Unspecified. EDMS 21:16 Yusuf Carroll MD is Referral Physician. [facility] 21:17 Patient did not have IV access during this emergency room visit. Knee immobilizer ca1 applied on left knee. Administered Medications: 19:50 Drug: [place] 5 mg-325 mg 1 tabs Route: PO; ca1 21:15 Follow up: Response: No adverse reaction; Pain is decreased ca1 20:12 Drug: [place] 5 mg-325 mg 1 tabs Route: PO; ca1 21:15 Follow up: Response: No adverse reaction; Pain is decreased ca1 Outcome: 21:16 Discharge ordered by . [facility] 21:32 Discharged to home via wheelchair, with family. ca1 21:32 Condition: stable 21:32 Discharge instructions given to patient, Instructed on discharge instructions, follow up and referral plans. Demonstrated understanding of instructions, follow-up care. 21:33 Patient left the ED. ca1 Signatures: Dispatcher [employer] EDMS Lena Boggs, RN RN Frederick Ta PA PA jmm Martinez, Amelia as Pam Candelario, RN RN ca1
[2018-11-29 23:03] VITALS: TEMP 98.1
[2018-11-29 23:06] VITALS: BP 160/82; O2SAT 99
== END 2018-11-29 21:33 | disposition home or self-care (01) ==
LOC: ER 18:58
DX: M23.92 Unspecified internal derangement of left knee (principal)
CPT/HCPCS: 99284

== ENCOUNTER 2018-12-03 23:40 | Observation (INO) | payer BC, OTHER ==
--- OUTSIDE RECORDS SUMMARY | 2018-12-03 23:42 | XMS REPORT | Clinical Summary ---
:1965 Author Organization [facility] Address [address] [place] [address] Care Team Providers Name Role Phone Bala [...] Not on file Implants Implanted Type Area Enroller Device Shelf Model / Identifier Expiration Serial / Lot Date Cath Peritoneal Dyls 57cm 2cuf [id number] - Sn/A Catheter N/A: COVIDIEN: SHAZIA 02/17/2021 [id number] / Implanted: Qty: 1 on 06/14/2017 by Abdiel Ivory MD Dialysis Abdomen L N/A / Senior Living [id number] Results Not on fileafter 12/02/2017 Insurance Payer Benefit Plan / Subscriber ID Type Phone Address Group BLUE CROSS/BLUE BCBS OS xxxxxxxxxxxx PPO [phone] [address] SHIELD POS/PPO/[place] [address] MEDICARE MEDICARE A B xxxxxxxxxx Medicare Advance Directives For more information, please contact:[address] [phone] Code Status Date Activated Date Inactivated Comments Full Code 06/08/2017 11:37 PM 06/15/2017 8:31 PM This code status was determined by: Patient
--- OUTSIDE RECORDS SUMMARY | 2018-12-03 23:42 | XMS REPORT | Clinical Summary ---
:1965 Author Organization [facility] Address [address] [place] [address] Care Team Providers Name Role Phone Garo [...] Hypertension 02/24/2017 Intractable vomiting with nausea 02/24/2017 Dmrdg-oj-dsloale kidney injury 02/24/2017 Diabetes mellitus 02/15/2017 Encounters Date Type Specialty Care Team Description 05/25/2018 Anesthesia Event Plastic Surgery Raz Brown 05/25/2018 Surgery Plastic Surgery Daquan Mary AND ARIS Arrington MD INDICATED PROCEDURES, RIGHT EYE 05/25/2018 Hospital Encounter Plastic Surgery Daquan Mary MD after 12/02/2017 Immunizations Name Dates Previously Given Next Due [...] Taken Blood Pressure 136/61 05/25/2018 2:05 PM PROTECTIVE SIGNAL REPAIRER HELPER Pulse 58 05/25/2018 2:05 PM PROTECTIVE SIGNAL REPAIRER HELPER Temperature 37.2 C (98.9 F) 05/25/2018 2:05 PM PROTECTIVE SIGNAL REPAIRER HELPER Respiratory Rate 12 05/25/2018 2:05 PM PROTECTIVE SIGNAL REPAIRER HELPER Oxygen Saturation 96% 05/25/2018 2:05 PM PROTECTIVE SIGNAL REPAIRER HELPER Inhaled Oxygen Concentration - - Weight 97.2 kg (214 lb 3 oz) 05/25/2018 11:43 AM PROTECTIVE SIGNAL REPAIRER HELPER Height 190.5 cm (6' 3") 05/25/2018 11:43 AM PROTECTIVE SIGNAL REPAIRER HELPER Body Mass Index 26.77 05/25/2018 11:43 AM PROTECTIVE SIGNAL REPAIRER HELPER Plan of Treatment Health Maintenance Due Date Last Done Comments DIABETIC RETINAL EYE EXAM 1965 DIABETIC FOOT EXAM 1974 COLONOSCOPY SCREENING 2014 SHINGLES VACCINES (#1) 2014 INFLUENZA VACCINE 01/11/2019 02/11/2017 Procedures Procedure Name Priority Date/Time Associated Diagnosis Comments VITRECTOMY 05/25/2018 1:00 PM [employer]ECTIVE [employer]NAL REPAIRER HELPER Vitreous hemorrhage of right eye (HCC) Special Needs REQ 1300 START POC PANEL 4 Routine 05/25/2018 12:09 PM PROTECTIVE SIGNAL REPAIRER HELPER after 12/02/2017 Results POC panel 4 (05/25/2018 12:09 PM PROTECTIVE SIGNAL REPAIRER HELPER) POC sodium 137 135 - 148 [facility] mmol/L [facility] POC potassium 4.3 3.5 - 5.0 [facility] mmol/L [facility] POC hematocrit 34 (L) 41 - 51 % [facility] Comment: HOSPITAL Meter ID: [id number] Machine Assembler: Abisai Girard POC glucose 107 (H) 65 - 99 mg/dL [facility] Specimen Performing Organization Address City/State/Zipcode Phone Number [facility] DEPARTMENT OF PATHOLOGY AND [address] [place] [address] [facility] [address] [place] [id number] after 12/02/2017 Insurance Payer Benefit Plan / Subscriber ID Effective Dates Phone Address Type Group BCBS ANTHEM BLUE CROSS xxxxxxxxxxxx 2017-Present PPO MEDICARE MEDICARE PART A xxxxxxxxxx 2016-Present [place], [place] Medicare AND B Advance Directives Patient has advance care planning documents on file. For more information, please contact:Naren Castro[address] [place] [address]
--- OUTSIDE RECORDS SUMMARY | 2018-12-03 23:44 | XMS REPORT | Continuity of Care Document ---
[...] nausea and 17 [facility] - vomiting [place] [id number] Active 02/25/20 Finding 06/05/[address] [facility] kidney [...] [place] Hydralazine THREE TIMES A Active Alexandr [facility] DAY 2017 [facility] [place] Pantoprazole Sodium DAILY Active Alexandr [facility] 2017 [facility] [place] Metoprolol Tartrate TWICE DAILY Active Alexandr [facility] 2017 [facility] [place] Clopidogrel DAILY Active [facility] Bisulfate 2017 [facility] [place] Atorvastatin AT BEDTIME Active [facility] Calcium 2017 [facility] [place] Amlodipine DAILY Active Divinsky [facility] 2017 [facility] [place] Clopidogrel DAILY Active [facility] Bisulfate 2017 [facility] [place] Metoprolol Tartrate TWICE DAILY Active Divinsky [facility] 2017 [facility] [place] Sertraline DAILY Active Divinsky [facility] 2017 [facility] [place] Tramadol Hcl EVERY [address] PRN For Pain 2017 [facility] [place] Ranolazine DAILY Active Divky [facility] 2017 [place] [facility] [place] Sub-Q Insulin DAILY Active St. Device, 40 Unit 2017 [place] Cefdinir TWICE DAILY Active Cameron [facility] 2016 [facility] [place] Methylprednisolone DAILY Active Cameron [facility] 2016 [facility] [place] Guaifen W/Codeine TWICE DAILY Active Cameron [facility] Syrup PRN For Cough 2016 [facility] [place] Amlodipine Besylate DAILY Active [facility] 2016 [facility] [place] Clopidogrel DAILY Active [facility] Bisulfate 2016 [facility] [place] Fenofibrate DAILY Active [facility] 2016 [facility] [place] Insulin Aspart THREE TIMES Active [facility] DAILY 2016 [facility] - NEEDED PRN For [place] hyperglycemia Liraglutide DAILY Active [facility] 2016 [facility] [place] Ranolazine DAILY Active [facility] 2016 [facility] [place] Insulin Detemir AT BEDTIME Active [facility] 2016 [facility] [place] Metoprolol Tartrate DAILY Active [facility] 2016 [facility] [place] Aspirin Tab DAILY Active Preza [facility] 2014 [facility] [place] Metoprolol Tartrate EVERY TWELVE Active Preza [facility] HOURS 2014 [facility] [place] Insulin Detemir AT BEDTIME Active 02/14/ [facility] 2014 [facility] [place] Insulin Detemir AT BEDTIME Active Prezas 02/04/ [facility] 2014 [facility] [place] Atorvastatin DAILY Active [facility] Calcium 2014 [facility] [place] Insulin Detemir AT BEDTIME Active [facility] 2014 [facility] [place] Lisinopril DAILY Active [facility] 2014 [facility] [place] Saxagliptin DAILY Active [facility] Hcl/Metformin Hcl 2013 [facility] [place] Allergies, Adverse Reactions, Alerts Substance Category Reaction Severity Reaction Status Date Comments Source type Reported Sulfa Hives/Aiden Allergy to Active [facility]3] (Sulfonamid h Substance 7 [facility] - e [place] Antibiotics ) Immunizations Immunization Date Given Site Status Last Comments Source Updated Pneumovax 02/18/2017 completed [facility]3] [place] [place] Results Order Name Results Value Reference Date Interpretation Comments Source Range Laboratory Sodium Level 138 mEq/L 135 - 145 06/[address] [facility] [place] Laboratory Potassium 5.1 mEq/L 3.6 - 5.0 06/[address] [facility] [address] Studies Level /2016 [facility] [place] Laboratory Phosphorus 7.4 mg/dL 2.5 - 4.3 06/[address] [facility] [address] /2016 [facility] [place] Laboratory Glucose Level 167 mg/dL 65 - 120 06/05 [facility] [place] Laboratory Estimat 10 mL/min 90 06/[address] [facility] [address] Studies [facility] - Filtration [place] Rate Laboratory Creatinine 6.17 mg/dL 0.61 - 06/[address] [facility] [address] Studies 1. [facility] [employer] [facility] [place] Laboratory Chloride 104 mEq/L 101 - 111 06/[address] [facility] [address] Studies Level /2016 [facility] [place] Laboratory Carbon 23 mEq/L 21 - 31 06/05 [facility] . Dioxide Level /2016 [facility] [employer] [facility] [place] Laboratory Calcium Level 9.1 mg/dL 8.5 - 10.5 06/[address] [facility] [facility] [place] Laboratory Blood Urea 87 mg/dL 6 - 20 06/[address] [facility] [address] Nitrogen /2016 [facility] [facility] [facility] Albumin 3.4 g/dL 3.2 - 5.5 06/[address] [facility] [address] Studies [facility] [place] Laboratory Bedside 155 mg/dl 65 - 120 06/03 [facility]. Studies Glucose /2016 [facility] [place] Laboratory Urine Urine 06/01 [facility]3] Studies Immunoelectro Immunoelect /2016 [facility] - phoresis 24 rophoresis [place] Hr 24 Hr Laboratory Anti-Double 2 IU/mL 06/01 [facility]3] Studies Strand DNA [facility] - Antibody [place] Laboratory Anti-Proteina null 06/01 [facility]3] Studies se 3 (c-ANCA) /2016 [facility] [place] Laboratory Anti-Myeloper null 06/01 [facility]3] Studies oxidase Ab [facility] - (p-ANCA) [place] Laboratory Complement C4 31 mg/dL 06/01 [facility]. Studies [facility] [place] Laboratory Complement C3 127 mg/dL 06/01 [facility]. Studies [facility] [place] Laboratory Thyroid 2.92 uIU/mL 0.34 - 06/01 [facility]3] Studies Stimulating 5. [facility] - Hormone (TSH) [place] Laboratory Anti-Nuclear Anti-Nuclea 05/30 [facility]3] Studies Antibody r Antibody /2016 [facility] - Titer Titer [place] Laboratory Anti-Nuclear Anti-Nuclea 05/30 [facility]3] Studies Antibody r Antibody /2016 [facility] - Pattern Pattern [place] Laboratory Anti-Nuclear Anti-Nuclea 05/30 [facility]3] Studies Antibody r Antibody /2016 [facility] - Screen Screen [place] Laboratory Anti-Nuclear Anti-Nuclea 05/30 [facility]3] Studies Antibody r Antibody /2016 [facility] - Pattern 2 Pattern 2 [place] Laboratory Hepatitis C Hepatitis C 05/30 [facility]3] Studies Antibody Antibody /2016 [facility] [place] Laboratory Hepatitis C 0.03 ratio 05/30 [facility]. Studies Ab [facility] - Signal/Cutoff [place] Ratio Laboratory Hepatitis B Hepatitis B 05/30 [facility]3] Studies Surface Surface /2016 [facility] - Antigen Antigen [place] Laboratory Hepatitis B Hepatitis B 05/30 [facility]3] Studies Surface Ag Surface Ag [facility] - Confirmation Confirmatio [place] n Laboratory Hepatitis B Hepatitis B 05/30 [facility]3] Studies Core IgM Core IgM [facility] - Antibody Antibody [place] Laboratory Hepatitis A Hepatitis A 05/30 [facility]3] Studies IgM Antibody IgM /2016 [facility] - Antibody [place] Laboratory HIV-1 RNA, HIV-1 RNA, 05/30 [facility]3] Studies Qualitat Qualitat /2016 [facility] - (TMA) Comment (TMA) [place] Comment Laboratory HIV (1&2) Ag HIV (1&2) 05/30 [facility]3] Studies and Ab, 4th Ag and Ab, /2016 [facility] - Generation 4th [place] Generation Laboratory HIV (1&2) Ab HIV (1&2) 05/30 [facility]. Studies Differential Ab /2016 [facility] - Comment Differentia [place] l Comment Laboratory Creatine 162 IU/L 22 - 269 05/30 [facility]. Studies Kinase /2016 [facility] Vitamin B12 173 pg/ml 180 - 914 05/30 [facility]. Studies Level /2016 [facility] Total 0.4 mg/dL 0.3 - 1.2 05/30 [facility]. Studies Bilirubin /2016 [facility] [place] Laboratory Serum Total 6.5 g/dL 6.0 - 8.3 05/30 [facility]. Studies Protein [facility] - [place] Laboratory Globulin 3.1 g/dL 2.3 - 3.5 05/[address] [facility] [address] Studies /2016 [facility] - [place] Laboratory Ferritin 337.4 ng/ml 23.9 - 05/30 [facility]. Studies 336.2 [facility] - [place] Laboratory Aspartate 12 IU/L 10 - 42 05/30 [facility]. Studies Amino Transf /2016 [facility] - (AST/SGOT) [place] Laboratory Alkaline 54 IU/L 42 - 121 05/30 [facility]. Studies Phosphatase /2016 [facility] - [place] Laboratory Albumin/Globu 1.1 1.1 - 1.8 05/30 [facility]. Studies mateo Ratio /2016 [facility] - [place] Laboratory Alanine 10 IU/L 10 - 60 05/30 [facility]. Studies Aminotransfer /2016 [facility] - ase [place] (ALT/SGPT) Laboratory White Blood 7.9 K/uL 4.3 - 10.9 05/30 [facility]. Studies Count /2016 [facility] - [place] Laboratory Red Cell 15.2 % 12.1 - 05/30 [facility]. Studies Distribution 15.2 [facility] - Width [place] Laboratory Red Blood 2.75 M/uL 4.33 - 05/[address] [facility] [address] Studies Count 5.43 /2016 [facility] [place] Laboratory Platelet 314 K/uL 152 - 406 05/[address] [facility] [address] Studies Count /2016 [facility] [place] Laboratory Neutrophils % 56.6 % 41.7 - 05/[address] [facility] [address] Studies 73.7 /2016 [facility] [place] Laboratory Monocytes % 12.0 % 3.3 - 12.3 05/[address] [facility] [address] Studies /2016 [facility] [place] Laboratory Mean Platelet 7.1 fL 7.6 - 11.3 05/[address] [facility] [address] Studies Volume /2016 [facility] [place] Laboratory Mean 85.4 fL 80 - 100 05/[address] [facility] [address] Studies Corpuscular /2016 [facility] - Volume [place] Laboratory Mean 34.1 g/dL 32.0 - 05/[address] [facility] [address] Studies Corpuscular 36.0 /2016 [facility] - Hemoglobin [place] [facility] Laboratory Mean 29.1 pg 27.0 - 05/30 [facility]. Studies Corpuscular 35.0 /2016 [facility] - Hemoglobin [place] Laboratory Lymphocytes % 25.1 % 15.3 - 05/[address] [facility] [address] Studies 44.8 /2016 [facility] [place] Laboratory Hemoglobin 8.0 g/dL 13.6 - 05/[address] [facility] [address] Studies 17.9 /2016 [facility] [place] Laboratory Hematocrit 23.5 % 39.6 - 05/[address] [facility] [address] Studies 49.0 /2017 [facility] [place] Laboratory Eosinophils % 5.7 % 0 - 4.4 05/[address] [facility] [address] Studies /2016 [facility] [place] Laboratory Basophils % 0.6 % 0 - 1.3 05/[address] [facility] [address] Studies /2016 [facility] [place] Laboratory Absolute 4.5 K/uL 1.8 - 8.0 05/[address] [facility] [address] Studies Neutrophil [facility] - [place] Laboratory Absolute 0.9 K/uL 0.1 - 1.3 05/[address] [facility] [address] Studies Monocytes [facility] - (CBC) [place] Laboratory Absolute 2.0 K/uL 0.7 - 4.9 05/[address] [facility] [address] Studies Lymphocytes [facility] - (CBC) [place] Laboratory Absolute 0.4 K/uL 0 - 0.5 05/[address] [facility] [address] Studies Eosinophils [facility] - (CBC) [place] Laboratory Absolute 0.0 K/uL 0 - 0.5 05/[address] [facility] [address] Studies Basophils /2016 [facility] - (CBC) [place] Laboratory Urine WBC null 05/29 St. Studies /2016 [facility] [place] Laboratory Urine null 05/[address] [facility] [address] Studies Squamous [facility] - Epithelial [place] Cells Laboratory Urine RBC Urine RBC 05/29 St[facility] Studies [facility] - [place] Laboratory Urine Culture Urine 05/29 St[facility] Studies Reflexed Culture [facility] - Reflexed [place] Laboratory Urine null 05/[address] [facility] [address] Studies Bacteria /2016 [facility] [place] Laboratory Urine Urine 05/29 [facility]. Studies Amorphous Amorphous [facility] - Sediment Sediment [place] Laboratory Direct null 0 - 0.2 05/[address] [facility] [address] Studies Bilirubin [facility] - [place] Laboratory Amylase Level 70 U/L 28 - 100 05/29 St[facility] Studies [facility] - [place] Laboratory Lipase 95 U/L 22 - 51 05/[address] [facility] [address] Studies [facility] - [place] Laboratory Hemoglobin 7.3 % 4 - 6.0 05/[address] [facility] [address] Studies A1c [facility] - [place] Laboratory Triglycerides 118 mg/dL 35 - 160 05/[address] [facility] [address] Studies Level /2016 [facility] [place] Laboratory Magnesium 2.2 mg/dL 1.8 - 2.5 05/[address] [facility] [address] Studies Level /2016 [facility] [place] Laboratory LDL 81 05/11 [facility]. Studies Cholesterol, /2016 [facility] - Calculated [place] Laboratory HDL 26 mg/dL 27 - 67 05/[address] [facility] [address] Studies Cholesterol [facility] - [place] Laboratory Cholesterol/H 5.04 05/[address] [facility] [address] Studies DL Ratio /2016 [facility] [place] Laboratory Cholesterol 131 mg/dL 05/[address] [facility] [address] Studies Level /2016 [facility] [place] Laboratory Troponin I null 05/11 St[facility] Studies [facility] - [place] Laboratory Glomerular null 05/10 [facility]. Studies Basement [facility] - Membrane IgG [place] Ab Laboratory Urine pH 6.0 05/[address] [facility] [address] Studies [facility] - [place] Laboratory Urine Total Urine Total 05/[address] [facility] [address] Studies Protein Protein [facility] - [place] Laboratory Urine 1.020 05/[address] [facility] [address] Studies Specific /2016 [facility] [place] Laboratory Urine Nitrite Urine 05/10 [facility]. Studies Nitrite [facility] - [place] Laboratory Urine Urine 05/10 [facility]. Studies Leukocyte Leukocyte [facility] - Esterase Esterase [place] Laboratory Urine Ketones Urine 05/[address] [facility] [address] Studies Ketones [facility] - [place] Laboratory Urine Glucose Urine 05/[address] [facility] [address] Studies Glucose [facility] [place] Laboratory Urine Blood Urine Blood 05/[address] [facility] [address] Studies /2016 [facility] [place] Laboratory Creatine 11.3 ng/ml 0.3 - 4.0 05/10 [facility]. Studies Kinase MB [facility] - [place] Laboratory B-Type 594 pg/ml 05/10 [facility]. Studies Natriuretic [facility] - Peptide [place] Laboratory Rapid null 05/10 [facility]. Studies Troponin I [facility] - [place] Laboratory Prothrombin 11.3 9.5 - 12.5 05/10 [facility]. Studies Time SECONDS [facility] - [place] Laboratory INR 0.96 05/10 [facility]. Studies International /2016 [facility] - Normalized [place] Ratio Laboratory Activated 28.5 24.3 - 05/10 [facility]. Studies Partial SECONDS 36.9 [facility] - Thromboplast [place] Time Vital Signs Vital Sign Value Date Comments Source Temperature Oral (F) 97.5 F 06/05/[address] [facility] [place] Heart Rate 66 06/05/[address] [facility] [place] Respitory Rate 18 06/05/[address] [facility] [place] Systolic (mm Hg) 131 06/05/[address] [facility] [place] Diastolic (mm Hg) 62 06/05/[address] [facility] [place] Height 75 06/05/[address] [facility] [address] [facility] - [place] Weight 228 06/05/[address] [facility] [place] Encounters Location Location Encounter Encounter Reason Attending ADM DC Status Source Details Type Number For Provider Date Date Visit [facility]3] Registered [id number] 04/[address] [facility] [place] [facility] Registered [id number] 04/[address] [facility] [place] [facility] Reg[facility] [id number] 04/[address] [facility] [place] [facility] Registered [id number] 04/[address] [facility] Ref[facility] [place] [facility] Departed [id number] 04/27 04/[address] [facility] [facility] Surgical 73 /2016 [facility] [place] [facility] [place] [facility] Discharged [id number] 05/10 05/[address] [facility] Inpatient 99 /2016 [facility] [place] [facility] Discharged [id number] 06/01 06/[address] [facility] Inpatient 75 /2016 [facility] [place] Procedures Procedure Code Date Perfomer Comments Source Chest Single [id number] 06/03/[address] [facility] - View [place] Chest Pa And Lat [id number] 06/02/[address] [facility] - (2 Views) [place] Abdomen & Pelvis [id number] 05/29/[address] [facility] - Wo Contrast [place] Chest Pa And Lat [id number] 05/11/[address] [facility] - (2 Views) [place] Abdomen & Pelvis [id number] 05/10/[address] [facility] - Wo Contrast [place] Chest Single [id number] 05/10/[address] [facility] View [place] REMOVAL OF [id number] 04/27/[address] [facility] [facility] - INFUSION DEVICE [place] FROM UPPER VEIN, OPEN APPROACH REMOVAL TUNNELED [id number] 04/27/[address] [facility] - CV CATH [place]
--- OUTSIDE RECORDS SUMMARY | 2018-12-03 23:45 | XMS REPORT ---
:1965 [facility] Address [address] [place] [address] Care Team Providers Name Role Phone DWIGHT MCHUGH Unavailable Unavailable Problems This patient has no known problems. Allergies, Adverse Reactions, Alerts This patient has no known allergies or adverse reactions. Medications This patient has no known medications. Encounters Start End Encounter Admission Attending Care Care Encounter Date/Time Date/Time Type Type Clinicians Facility Department ID 2018-10-31 2018-10-31 Outpatient [facility] CAR [id number] 10:40:00 10:40:00 Results Test Description Test Time Test Comments Text Results Atomic Results Result Comments POCT-GLUCOSE METER 2017-06-15 17:36:00 Test Item Value Reference Range Comments POC-GLUCOSE METER (BEAKER) (test 243 mg/dL 70-110 TESTED AT [facility] [address] [facility] fvtw=5736) [facility] [address] BASIC METABOLIC [id number] 13:51:00 Test Item Value Reference Range Comments SODIUM (BEAKER) (test 139 meq/L 135-148 dast=818) POTASSIUM (BEAKER) (test 3.4 meq/L 3.6-5.5 ppdd=596) CHLORIDE (BEAKER) (test 101 meq/L 98-106 etnm=501) CO2 (BEAKER) (test 29 meq/L 20-29 xyve=785) BLOOD UREA NITROGEN 11 mg/dL 10-26 (BEAKER) (test axzd=975) CREATININE (BEAKER) (test 2.10 mg/dL 0.50-1.20 bbsx=286) GLUCOSE RANDOM (BEAKER) 157 mg/dL 70-110 (test btxc=273) CALCIUM (BEAKER) (test 8.6 mg/dL 8.5-10.5 ixal=631) EGFR (BEAKER) (test 33 mL/min/1.73 sq m ESTIMATED GFR IS NOT vgex=0098) ACCURATE CREATININE CLEARANCE IN PREDICTING GLOMERULAR FILTRATION RATE. ESTIMATED GFR IS NOT APPLICABLE FOR DIALYSIS PATIENTS. [id number] 13:44:00 Test Item Value Reference Range Comments MAGNESIUM (BEAKER) (test hzcx=307) 1.9 mg/dL 1.5-3.0 CBC W/PLT COUNT & AUTO [id number] 13:34:00 Test Item Value Reference Range Comments WHITE BLOOD CELL COUNT (BEAKER) (test sgml=257) 6.8 K/ L 4.0-10.0 RED BLOOD CELL COUNT (BEAKER) (test tbry=080) 2.92 M/ L 4.20-5.80 HEMOGLOBIN (BEAKER) (test yose=438) 8.4 GM/DL 13.0-16.8 HEMATOCRIT (BEAKER) (test risw=898) 25.5 % 40.0-50.0 MEAN CORPUSCULAR VOLUME (BEAKER) (test wgxc=901) 87.4 fL 82.0-98.0 MEAN CORPUSCULAR HEMOGLOBIN (BEAKER) (test 28.7 pg 27.0-33.0 dzpe=856) MEAN CORPUSCULAR HEMOGLOBIN CONC (BEAKER) (test 32.8 GM/DL 32.0-36.0 xxlh=435) RED CELL DISTRIBUTION WIDTH (BEAKER) (test 14.7 % 10.3-14.2 hulc=080) PLATELET COUNT (BEAKER) (test nvjf=895) 299 K/CU MM 150-430 MEAN PLATELET VOLUME (BEAKER) (test sdhe=266) 6.9 fL 6.5-10.5 NUCLEATED RED BLOOD CELLS (BEAKER) (test 0 /100 WBC 0-0 thop=103) NEUTROPHILS RELATIVE PERCENT (BEAKER) (test 65 % ubsv=946) LYMPHOCYTES RELATIVE PERCENT (BEAKER) (test 18 % rdfm=389) MONOCYTES RELATIVE PERCENT (BEAKER) (test 14 % wtnt=739) EOSINOPHILS RELATIVE PERCENT (BEAKER) (test 3 % pwak=883) BASOPHILS RELATIVE PERCENT (BEAKER) (test 1 % jffp=680) NEUTROPHILS ABSOLUTE COUNT (BEAKER) (test 4.40 K/ L 1.80-8.00 qbzc=136) LYMPHOCYTES ABSOLUTE COUNT (BEAKER) (test 1.20 K/ L 1.48-4.50 trwd=601) MONOCYTES ABSOLUTE COUNT (BEAKER) (test 1.00 K/ L 0.00-1.30 dnel=559) EOSINOPHILS ABSOLUTE COUNT (BEAKER) (test 0.20 K/ L 0.00-0.50 dejt=927) BASOPHILS ABSOLUTE COUNT (BEAKER) (test 0.00 K/ L 0.00-0.20 waob=165) POCT-GLUCOSE [id number] 11:28:00 Test Item Value Reference Range Comments POC-GLUCOSE METER (BEAKER) 147 mg/dL 70-110 TESTED AT [address] (test jzeq=6386) [facility] [address] POCT-GLUCOSE [id number] 06:04:00 Test Item Value Reference Range Comments POC-GLUCOSE METER (BEAKER) 137 mg/dL 70-110 TESTED AT [address] (test cisg=3082) [place] [address] POCT-GLUCOSE [id number] 21:01:00 Test Item Value Reference Range Comments POC-GLUCOSE METER (BEAKER) 138 mg/dL 70-110 TESTED AT [address] (test lxxg=9692) [place] [address] POCT-GLUCOSE [id number] 16:06:00 Test Item Value Reference Range Comments POC-GLUCOSE METER (BEAKER) 167 mg/dL 70-110 TESTED AT [address] (test aawi=2374) [place] [address] POCT-GLUCOSE [id number] 12:49:00 Test Item Value Reference Range Comments POC-GLUCOSE METER (BEAKER) 144 mg/dL 70-110 TESTED AT [address] (test edif=3202) [place] [address] [id number] 10:27:00 Test Item Value Reference Range Comments POC-CREATININE (BEAKER) 3.6 mg/dL 0.6-1.3 TESTED AT [address] (test mznd=5211) [place] [address] POC-EGFR (BEAKER) (test 18 mL/min/1.73M2 lyfn=0736) [id number] 10:27:00 Test Item Value Reference Range Comments POC-SODIUM (BEAKER) (test 138 meq/L 135-148 TESTED AT [address] kenu=0525) [place] [address] [id number] 10:27:00 Test Item Value Reference Range Comments POC-POTASSIUM (BEAKER) 3.6 meq/L 3.6-5.5 TESTED AT [address] (test ieky=8202) [place] [address] [id number] 10:27:00 Test Item Value Reference Range Comments POC-BUN (BEAKER) (test 20 mg/dL 7-21 TESTED AT [address] sbbz=8885) [place] [address] [id number] 10:27:00 Test Item Value Reference Range Comments POC-CHLORIDE (BEAKER) (test 97 meq/L 98-107 TESTED AT [address] ehqy=3013) [place] [address] [id number] 10:27:00 Test Item Value Reference Range Comments POC-GLUCOSE (BEAKER) (test 123 mg/dL 70-110 TESTED AT [address] axvg=5168) [place] [address] [id number] 10:27:00 Test Item Value Reference Range Comments POC-HEMATOCRIT (BEAKER) (test 24 % 40-50 TESTED AT [address] ezxt=5822) [place] [address] [id number] 10:27:00 Test Item Value Reference Range Comments POC-HEMOGLOBIN (BEAKER) 8.2 g/dL 13.0-16.8 TESTED AT [address] (test gcjg=0179) [place] [address] [id number] 10:27:00 Test Item Value Reference Range Comments POC-TCO2 (BEAKER) (test 30 meq/L 22-29 TESTED AT [address] sfpj=5780) [place] [address] POCT-GLUCOSE [id number] 06:08:00 Test Item Value Reference Range Comments POC-GLUCOSE METER (BEAKER) 163 mg/dL 70-110 TESTED AT [facility] [address] [place] [address] (test pvsy=4355) [facility] [address] POCT-GLUCOSE [id number] 21:07:00 Test Item Value Reference Range Comments POC-GLUCOSE METER (BEAKER) 132 mg/dL 70-110 TESTED AT [address] (test qizf=0942) [facility] [address] POCT-GLUCOSE [id number] 12:58:00 Test Item Value Reference Range Comments POC-GLUCOSE METER (BEAKER) 178 mg/dL 70-110 TESTED AT [address] (test cttg=6095) [facility] [address] POCT-GLUCOSE [id number] 05:29:00 Test Item Value Reference Range Comments POC-GLUCOSE METER (BEAKER) 171 mg/dL 70-110 TESTED AT [address] (test nrvu=7180) [facility] [address] POCT-GLUCOSE [id number] 22:03:00 Test Item Value Reference Range Comments POC-GLUCOSE METER (BEAKER) 249 mg/dL 70-110 TESTED AT [address] (test kbsz=0273) [facility] [address] POCT-GLUCOSE [id number] 16:45:00 Test Item Value Reference Range Comments POC-GLUCOSE METER (BEAKER) 213 mg/dL 70-110 TESTED AT [address] (test jgee=6242) [facility] [address] [id number] 16:43:00 Test Item Value Reference Range Comments THYROID STIMULATING HORMONE (BEAKER) (test 2.09 uIU/mL 0.35-5.50 yxew=965) COMPREHENSIVE METABOLIC [id number] 16:24:00 Test Item Value Reference Range Comments TOTAL PROTEIN (BEAKER) 7.2 gm/dL 6.0-8.5 (test qqaj=423) ALBUMIN (BEAKER) (test 3.5 g/dL 3.5-5.0 eymn=9221) ALKALINE PHOSPHATASE 67 U/L 30-115 (BEAKER) (test hpgs=583) BILIRUBIN TOTAL (BEAKER) 0.3 mg/dL 0.1-1.2 (test smfu=434) SODIUM (BEAKER) (test 136 meq/L 135-148 hvyh=318) POTASSIUM (BEAKER) (test 4.1 meq/L 3.6-5.5 flcu=856) CHLORIDE (BEAKER) (test 98 meq/L 98-106 ujoz=871) CO2 (BEAKER) (test 26 meq/L 20-29 iuek=919) BLOOD UREA NITROGEN 32 mg/dL 10-26 (BEAKER) (test mhjo=386) CREATININE (BEAKER) (test 4.40 mg/dL 0.50-1.20 ffxj=336) GLUCOSE RANDOM (BEAKER) 212 mg/dL 70-110 (test eorj=047) CALCIUM (BEAKER) (test 9.0 mg/dL 8.5-10.5 ewpc=918) AST (SGOT) (BEAKER) (test 14 U/L 5-40 sugy=555) ALT (SGPT) (BEAKER) (test 4 U/L 5-50 gofv=048) EGFR (BEAKER) (test 14 mL/min/1.73 sq m ESTIMATED GFR IS NOT gbqd=1092) ACCURATE CREATININE CLEARANCE IN PREDICTING GLOMERULAR FILTRATION RATE. ESTIMATED GFR IS NOT APPLICABLE FOR DIALYSIS PATIENTS. CBC W/PLT COUNT & AUTO [id number] 16:02:00 Test Item Value Reference Range Comments WHITE BLOOD CELL COUNT (BEAKER) (test nldq=147) 6.9 K/ L 4.0-10.0 RED BLOOD CELL COUNT (BEAKER) (test gcub=656) 2.95 M/ L 4.20-5.80 HEMOGLOBIN (BEAKER) (test jzkx=230) 8.6 GM/DL 13.0-16.8 HEMATOCRIT (BEAKER) (test face=007) 25.9 % 40.0-50.0 MEAN CORPUSCULAR VOLUME (BEAKER) (test rrnc=047) 87.9 fL 82.0-98.0 MEAN CORPUSCULAR HEMOGLOBIN (BEAKER) (test 29.0 pg 27.0-33.0 hvnv=099) MEAN CORPUSCULAR HEMOGLOBIN CONC (BEAKER) (test 33.0 GM/DL 32.0-36.0 ezth=559) RED CELL DISTRIBUTION WIDTH (BEAKER) (test 15.0 % 10.3-14.2 glpc=577) PLATELET COUNT (BEAKER) (test sfjr=450) 330 K/CU MM 150-430 MEAN PLATELET VOLUME (BEAKER) (test tpap=781) 7.1 fL 6.5-10.5 NUCLEATED RED BLOOD CELLS (BEAKER) (test 0 /100 WBC 0-0 zddy=921) NEUTROPHILS RELATIVE PERCENT (BEAKER) (test 66 % xhdf=633) LYMPHOCYTES RELATIVE PERCENT (BEAKER) (test 16 % sfgd=019) MONOCYTES RELATIVE PERCENT (BEAKER) (test 12 % zdex=248) EOSINOPHILS RELATIVE PERCENT (BEAKER) (test 5 % ecyy=131) BASOPHILS RELATIVE PERCENT (BEAKER) (test 1 % zngs=735) NEUTROPHILS ABSOLUTE COUNT (BEAKER) (test 4.60 K/ L 1.80-8.00 aobb=152) LYMPHOCYTES ABSOLUTE COUNT (BEAKER) (test 1.10 K/ L 1.48-4.50 xahu=449) MONOCYTES ABSOLUTE COUNT (BEAKER) (test 0.80 K/ L 0.00-1.30 xqnm=457) EOSINOPHILS ABSOLUTE COUNT (BEAKER) (test 0.30 K/ L 0.00-0.50 rpbn=839) BASOPHILS ABSOLUTE COUNT (BEAKER) (test 0.10 K/ L 0.00-0.20 cxps=165) PROTHROMBIN [id number] 16:01:00 Test Item Value Reference Range Comments PROTIME (BEAKER) (test mlug=101) 10.3 seconds 9.3-12.0 INR (BEAKER) (test pomd=782) 1.0 <=5.9 RECOMMENDED COUMADIN/WARFARIN INR THERAPY RANGESSTANDARD DOSE: 2.0 - 3.0 Includes: PROPHYLAXIS forvenous thrombosis, systemic embolization; TREATMENT for venous thrombosis and/or pulmonary embolus.HIGH RISK: Target INR is 2.5-3.5 for patients with mechanical heart valves.POCT-GLUCOSE [id number] 12:01:00 Test Item Value Reference Range Comments POC-GLUCOSE METER (BEAKER) 211 mg/dL 70-110 TESTED AT [address] (test ajll=7864) [facility] [address] POCT-GLUCOSE [id number] 06:08:00 Test Item Value Reference Range Comments POC-GLUCOSE METER (BEAKER) 191 mg/dL 70-110 TESTED AT [address] (test zjas=8432) [facility] [address] POCT-GLUCOSE [id number] 21:28:00 Test Item Value Reference Range Comments POC-GLUCOSE METER (BEAKER) 233 mg/dL 70-110 TESTED AT [address] (test szuc=3468) [facility] [address] POCT-GLUCOSE [id number] 16:19:00 Test Item Value Reference Range Comments POC-GLUCOSE METER (BEAKER) 290 mg/dL 70-110 TESTED AT [address] (test xcoe=1905) [facility] [address] POCT-GLUCOSE [id number] 13:33:00 Test Item Value Reference Range Comments POC-GLUCOSE METER (BEAKER) 186 mg/dL 70-110 TESTED AT [address] (test kwme=4859) [facility] [address] POCT-GLUCOSE [id number] 06:27:00 Test Item Value Reference Range Comments POC-GLUCOSE METER (BEAKER) 204 mg/dL 70-110 TESTED AT [address] (test vijf=1043) [facility] [address] POCT-GLUCOSE [id number] 21:40:00 Test Item Value Reference Range Comments POC-GLUCOSE METER (BEAKER) 267 mg/dL 70-110 TESTED AT [address] (test shlm=3306) [facility] [address] POCT-GLUCOSE [id number] 17:32:00 Test Item Value Reference Range Comments POC-GLUCOSE METER (BEAKER) 221 mg/dL 70-110 TESTED AT [address] (test jpzp=7399) [facility] [address] HEPATITIS B SURFACE [id number] 14:21:00 Test Item Value Reference Range Comments HEPATITIS B SURFACE ANTIBODY (BEAKER) (test < mIU/mL <8.0 gpuz=786) HEPATITIS B CORE ANTIBODY, [id number] 14:15:00 Test Item Value Reference Range Comments HEPATITIS B CORE TOTAL ANTIBODY (BEAKER) (test Nonreactive Nonreactive rine=328) POCT-GLUCOSE [id number] 12:18:00 Test Item Value Reference Range Comments POC-GLUCOSE METER (BEAKER) 193 mg/dL 70-110 TESTED AT [address] (test esqf=9919) [facility] [address] RAD, CHEST, 1 VIEW, NON [id number] 08:49:00Reason for exam:->for outpatient HD placementShould this [...] Hammereport Verified Date/Time: 06/10/2017 08:49:42 Reading Location: [facility] Radiology Reading Room Electronically signed by: SACHI HAMMER on 2016 08:49 AMPOCT-GLUCOSE [id number] 06:53:00 Test Item Value Reference Range Comments POC-GLUCOSE METER (BEAKER) 177 mg/dL 70-110 TESTED AT [address] (test yafb=2917) [facility] [address] POCT-GLUCOSE [id number] 22:10:00 Test Item Value Reference Range Comments POC-GLUCOSE METER (BEAKER) 109 mg/dL 70-110 TESTED AT [address] (test ltlm=7483) [facility] [address] HEPATITIS B SURFACE [id number] 20:18:00 Test Item Value Reference Range Comments HEPATITIS B SURFACE ANTIGEN (2) (BEAKER) (test Nonreactive Nonreactive wjhk=1738) POCT-GLUCOSE [id number] 17:08:00 Test Item Value Reference Range Comments POC-GLUCOSE METER (BEAKER) 223 mg/dL 70-110 TESTED AT [address] (test kqmc=6564) [facility] [address] POCT-GLUCOSE [id number] 12:47:00 Test Item Value Reference Range Comments POC-GLUCOSE METER (BEAKER) 200 mg/dL 70-110 TESTED AT [address] (test fcal=7450) [facility] [address] ANG, TUNNELED CATHETER [id number] 12:13:00Reason for exam:->renal failureFINAL REPORT Tunneled central [...] the patient's medical record by the nurse. Financial Coach: Onesimo Lopez MD. Hob Grinder: None. Approach: Right internal jugular vein Estimated [...] ready for immediate use. Signed: Onesimo Lopez MDReport Verified Date/Time: 06/09/2017 12:13:36 Reading Location: [facility] Radiology Reading Room 12 :13 PMPOCT-GLUCOSE [id number] 06:03:00 Test Item Value Reference Range Comments POC-GLUCOSE METER (BEAKER) 208 mg/dL 70-110 TESTED AT [facility] [address] [facility] (test frbi=6991) [address] [facility] [address] BASIC METABOLIC [id number] 06:00:00 Test Item Value Reference Range Comments SODIUM (BEAKER) (test 139 meq/L 135-148 upyb=849) POTASSIUM (BEAKER) (test 3.5 meq/L 3.6-5.5 dgfj=731) CHLORIDE (BEAKER) (test 103 meq/L 98-106 dwpf=179) CO2 (BEAKER) (test 26 meq/L 20-29 xkuy=966) BLOOD UREA NITROGEN 62 mg/dL 10-26 (BEAKER) (test txhi=319) CREATININE (BEAKER) (test 5.10 mg/dL 0.50-1.20 zapn=770) GLUCOSE RANDOM (BEAKER) 191 mg/dL 70-110 (test sjje=333) CALCIUM (BEAKER) (test 9.0 mg/dL 8.5-10.5 tlyx=436) EGFR (BEAKER) (test 12 mL/min/1.73 sq m ESTIMATED GFR IS NOT nyvd=8089) ACCURATE CREATININE CLEARANCE IN PREDICTING GLOMERULAR FILTRATION RATE. ESTIMATED GFR IS NOT APPLICABLE FOR DIALYSIS PATIENTS. HEPATIC FUNCTION [id number] 05:58:00 Test Item Value Reference Range Comments TOTAL PROTEIN (BEAKER) (test pauu=505) 6.3 gm/dL 6.0-8.5 ALBUMIN (BEAKER) (test nwra=9004) 3.2 g/dL 3.5-5.0 BILIRUBIN TOTAL (BEAKER) (test yvgg=999) 0.4 mg/dL 0.1-1.2 BILIRUBIN DIRECT (BEAKER) (test tbwi=915) 0.2 mg/dL 0.0-0.4 ALKALINE PHOSPHATASE (BEAKER) (test vtse=493) 67 U/L 30-115 AST (SGOT) (BEAKER) (test sppw=170) 13 U/L 5-40 ALT (SGPT) (BEAKER) (test zwuj=010) 10 U/L 5-50 CBC W/PLT COUNT & AUTO [id number] 05:56:00 Test Item Value Reference Range Comments WHITE BLOOD CELL COUNT (BEAKER) (test jovl=372) 6.3 K/ L 4.0-10.0 RED BLOOD CELL COUNT (BEAKER) (test hubq=865) 2.71 M/ L 4.20-5.80 HEMOGLOBIN (BEAKER) (test mdst=127) 7.8 GM/DL 13.0-16.8 HEMATOCRIT (BEAKER) (test lqyh=180) 23.6 % 40.0-50.0 MEAN CORPUSCULAR VOLUME (BEAKER) (test lzim=126) 86.8 fL 82.0-98.0 MEAN CORPUSCULAR HEMOGLOBIN (BEAKER) (test 28.6 pg 27.0-33.0 gajz=277) MEAN CORPUSCULAR HEMOGLOBIN CONC (BEAKER) (test 33.0 GM/DL 32.0-36.0 oqfg=070) RED CELL DISTRIBUTION WIDTH (BEAKER) (test 14.8 % 10.3-14.2 mfvd=810) PLATELET COUNT (BEAKER) (test vaut=045) 334 K/CU MM 150-430 MEAN PLATELET VOLUME (BEAKER) (test wqun=541) 6.9 fL 6.5-10.5 NUCLEATED RED BLOOD CELLS (BEAKER) (test 0 /100 WBC 0-0 avda=347) NEUTROPHILS RELATIVE PERCENT (BEAKER) (test 57 % oghf=987) LYMPHOCYTES RELATIVE PERCENT (BEAKER) (test 19 % nttw=287) MONOCYTES RELATIVE PERCENT (BEAKER) (test 15 % vzfc=374) EOSINOPHILS RELATIVE PERCENT (BEAKER) (test 7 % mvhd=661) BASOPHILS RELATIVE PERCENT (BEAKER) (test 1 % ramw=738) NEUTROPHILS ABSOLUTE COUNT (BEAKER) (test 3.60 K/ L 1.80-8.00 zibp=008) LYMPHOCYTES ABSOLUTE COUNT (BEAKER) (test 1.20 K/ L 1.48-4.50 pdsu=325) MONOCYTES ABSOLUTE COUNT (BEAKER) (test 1.00 K/ L 0.00-1.30 lwtu=496) EOSINOPHILS ABSOLUTE COUNT (BEAKER) (test 0.50 K/ L 0.00-0.50 ecuu=590) BASOPHILS ABSOLUTE COUNT (BEAKER) (test 0.10 K/ L 0.00-0.20 qrci=847) [id number] 05:55:00 Test Item Value Reference Range Comments PHOSPHORUS (BEAKER) (test gpik=402) 4.1 mg/dL 2.5-4.5 [id number] 05:51:00 Test Item Value Reference Range Comments PROTIME (BEAKER) (test wajq=302) 10.7 seconds 9.3-12.0 INR (BEAKER) (test bfch=586) 1.0 <=5.9 PARTIAL THROMBOPLASTIN TIME (BEAKER) (test 28.5 seconds 23.0-35.0 ooqz=802) RECOMMENDED COUMADIN/WARFARIN INR THERAPY RANGESSTANDARD DOSE: 2.0 - 3.0 Includes: PROPHYLAXIS forvenous thrombosis, systemic embolization; TREATMENT for venous thrombosis and/or pulmonary embolus.HIGH RISK: Target INR is 2.5-3.5 for patients with mechanical heart valves.[id number] 05:50:00 Test Item Value Reference Range Comments MAGNESIUM (BEAKER) (test kqyi=837) 1.7 mg/dL 1.5-3.0 POCT-GLUCOSE [id number] 23:14:00 Test Item Value Reference Range Comments POC-GLUCOSE METER (BEAKER) 230 mg/dL 70-110 TESTED AT [facility] [address] [place] [address] (test xaqn=2580) [facility] [address]
[2018-12-04] MEDS ORDERED: FENTANYL CITR 100 MCG/2 ML ONE (00:26)
[2018-12-04] MEDS ORDERED: ONDANSETRON 4 MG/2 ML VIAL ONE (00:26)
[2018-12-04 00:36] LABS: Absolute Lymphocytes (CBC) 0.4 K/uL (0.7-4.9); Basophils % 1.3 % (0-1.3); Eosinophils % 3.9 % (0-4.4); Hematocrit 35.4 % (39.6-49.0); Lymphocytes % 6.8 % (15.3-44.8); MPV 8.5 fL (7.6-11.3); Monocytes % 7.5 % (3.3-12.3); RBC Red Blood Cell Count 3.64 M/uL (4.33-5.43)
[2018-12-04] MEDS ORDERED: MORPHINE 4 MG/ML SYR ONE ×2 (01:00→01:52)
[2018-12-04 01:08] LABS: Urine Blood 3+ (NEG); Urine Glucose TRACE (NEG); Urine Protein 3+ (NEG)
[2018-12-04 01:33] LABS: Bilirubin Direct 0.5 mg/dL (0-0.2); Bilirubin Total 0.9 mg/dL (0.2-1.0); Potassium 5.5 mmol/L (3.5-5.1); Protein, Total 8.8 g/dL (6.4-8.2)
[2018-12-04] MEDS ORDERED: PROMETHAZINE 25 MG/ML VIAL ONE (02:34)
[2018-12-04] MEDS ORDERED: PIPER/TAZO/NS 3.375gm 3.375 GM/100 ML BAG ONE (02:35)
[2018-12-04] MEDS ORDERED: HYDROMORPHONE HCL 1 MG/ML INJ ONE ×2 (02:35→04:45)
--- NOTE | 2018-12-04 03:48 | ER ---
Nurse's Notes [facility] Name: Yusuf Bah Age: 53 yrs Sex: Male : 1965 Arrival Date: 12/03/2018 Time: 23:42 Bed 7 Private MD: Garo Chavarria Diagnosis: Acute Abdominal Pain Presentation: 12/03 23:50 Presenting complaint: Patient states: started at 5pm this afternoon having sudden rr5 abdominal pain radiating to back. pain score 9/10. vomited once, no BM or urine problem as verbalized by the patient. 23:50 Transition of care: patient was not received from another setting of care. Onset of rr5 symptoms was December 03, 2018 at 17:00. Risk Assessment: Do you want to hurt yourself or someone else? Patient reports no desire to harm self or others. Initial Sepsis Screen: Does the patient meet any 2 criteria? No. Patient's initial sepsis screen is negative. Does the patient have a suspected source of infection? No. Patient's initial sepsis screen is negative. Note AV fistula at right arm noted. Care prior to arrival: None. 23:50 Method Of Arrival: Wheelchair rr5 23:50 Acuity: ALVERTO 3 rr5 Historical: - Allergies: 12/04 00:03 Sulfa (Sulfonamide Antibiotics); rr5 - Home Meds: 00:03 amlodipine 10 mg tab 1 tab once daily [Active]; furosemide 40 mg Oral tab 1 tab 2 times rr5 per day [Active]; sertraline 50 mg Oral tab 1 tab once daily [Active]; atorvastatin 80 mg Oral tab 1 tab once daily [Active]; Plavix 75 mg Oral tab 1 tab once daily [Active]; Stool Softener 100 mg Oral tab 1 tab 2 times per day [Active]; Ranexa 1,000 mg Oral Tb12 1 tab daily [Active]; metoprolol tartrate 100 mg Oral tab 1 tab 2 times per day [Active]; hydralazine 25 mg Oral tab 3 tab 2 times per day [Active]; aspirin 325 mg Oral tab 1 tab once daily [Active]; famotidine 40 mg Oral tab 1 tab once daily [Active]; clonidine HCl 0.1 mg Oral tab 1 tab 3 times per day [Active]; Ambien 5 mg Oral tab 1 tab once daily [Active]; [place] 7.5-325 mg Oral tab 1 tab twice a day [Active]; amitriptyline 10 mg Oral tab 1 tab daily [Active]; Travatan Z 0.004 % ophthalmic drop 1 drop once daily [Active]; metolazone 5 mg Oral tab 1 tab once daily [Active]; Auryxia 210 mg iron Oral tab 2 tabs 3 times per day [Active]; Nitrostat 0.4 mg SL subl 1 tab every 5 minutes [Active]; nitroglycerin 0.2 mg/hr Topical pt24 1 patch as needed [Active]; Zofran (as hydrochloride) 4 mg Oral tab 1 tabs every 6 hours [Active]; promethazine 25 mg Oral tab 1 tab every 8 hours [Active]; lactulose 10 gram/15 mL Oral soln 30 mL once daily [Active]; Humalog Sub-Q per insulin pump [Active]; - PMHx: 00:03 Angina; CAD; Depression; Diabetes - IDDM; Dialysis; GERD; Glaucoma; High Cholesterol; rr5 Hypertension; Renal Disease; Small vessle disease of the heart; - PSHx: 00:03 av fistula; Appendectomy; Cholecystectomy; shoulder surgery; rr5 - Immunization history:: Adult Immunizations up to date. - Social history:: Smoking status: Patient/guardian denies using tobacco, Patient/guardian denies using alcohol, street drugs. - Ebola Screening: : Patient negative for fever greater than or equal to 101.5 degrees Fahrenheit, and additional compatible Ebola Virus Disease symptoms Patient denies exposure to infectious person Patient denies travel to an Ebola-affected area in the 21 days before illness onset. - Family history:: not pertinent. - Hospitalizations: : No recent hospitalization is reported. Screenin:04 Abuse screen: Denies threats or abuse. Denies injuries from another. Nutritional rr5 screening: No deficits noted. Tuberculosis screening: No symptoms or risk factors identified. Fall Risk IV access (20 points). Total Gamez Fall Scale indicates No Risk (0-24 pts). Assessment: 00:06 General: Appears in no apparent distress. uncomfortable, Behavior is calm, cooperative, tl2 appropriate for age. Pain: Complains of pain in left upper quadrant and left lower quadrant Pain radiates to back Pain currently is 9 out of 10 on a pain scale. Quality of pain is described as sharp, Is continuous. Pain: Noted to be guarding, moaning. Cardiovascular: Denies chest pain. Respiratory: Airway is patent Respiratory effort is even, unlabored, Respiratory pattern is regular, symmetrical, Denies shortness of breath. GI: Bowel sounds present X 4 quads. Abd is soft and non tender Reports lower abdominal pain, upper abdominal pain, nausea, Patient currently denies diarrhea. : No signs and/or symptoms were reported regarding the genitourinary system. Derm: Skin is pink, warm \T\ dry. 00:40 Reassessment: pt c/o pain, notified, new order see AUG. tl2 01:40 Reassessment: pt c/o pain after returning from CT, notified, see AUG. tl2 02:31 Reassessment: pt continuing to c/o pain, notified, see MAR. tl2 03:00 Reassessment: Pt is resting comfortably at this time. tl2 04:05 Reassessment: pt c/o pain, MD ordered to give 1 mg IVP Dilaudid right before transfer tl2 to floor. Vital Signs: 12/03 23:55 BP 158 / 78; Pulse 71; Resp 20; Temp 97; Pulse Ox 98% ; Weight 97.07 kg; Height 6 ft. 3 rr5 in. (190.50 cm); Pain 9/10; 12/04 00:49 BP 160 / 94; Pulse 73; Resp 18; Pulse Ox 97% on R/A; tl2 01:41 BP 161 / 91; Pulse 73; Resp 18; Pulse Ox 99% on R/A; tl2 02:30 BP 154 / 88; Pulse 71; Resp 18; Pulse Ox 96% on R/A; tl2 03:00 BP 166 / 81; Pulse 72; Resp 18; Pulse Ox 97% on R/A; tl2 03:45 BP 155 / 82; Pulse 70; Resp 18; Pulse Ox 98% on R/A; tl2 12/03 23:55 Body Mass Index 26.75 (97.07 kg, 190.50 cm) rr5 ED Course: 12/03 23:42 Patient arrived in ED. do 23:42 Garo Chavarria MD is Private Physician. do 23:57 Triage completed. rr5 12/04 00:00 Baldemar Jon PA is PHCP. cp 00:00 Steve Britton MD is Attending Physician. cp 00:00 Arm band placed on. rr5 00:04 Jesica Stevens RN is Primary Nurse. tl2 00:04 Patient has correct armband on for positive identification. Bed in low position. Call rr5 light in reach. Side rails up X2. Pulse ox on. NIBP on. 00:05 Inserted saline lock: 20 gauge in left wrist, using aseptic technique. Blood collected. tl2 01:34 Notified ED physician of a critical lab result(s). Creatinine level. aa1 01:38 Abdomen In Process Unspecified. EDMS 03:00 No provider procedures requiring assistance completed. Patient admitted, IV remains in tl2 place. 03:47 Lori Chavarria MD is Hospitalizing Provider. wa Administered Medications: 00:16 Drug: Zofran 4 mg Route: IVP; Site: left wrist; tl2 00:47 Follow up: Response: No adverse reaction; Nausea is decreased tl2 00:16 Drug: fentaNYL (PF) 50 mcg Route: IVP; Site: left wrist; tl2 00:47 Follow up: Response: No adverse reaction; Pain is unchanged, physician notified tl2 00:47 Drug: morphine 4 mg Route: IVP; Site: left wrist; tl2 01:20 Follow up: Response: No adverse reaction; Pain is decreased tl2 01:40 Drug: morphine 4 mg Route: IVP; Site: left wrist; tl2 02:33 Follow up: Response: No adverse reaction; Pain is unchanged, physician notified tl2 02:32 Drug: Dilaudid 1 mg Route: IVP; Site: left wrist; tl2 03:00 Follow up: Response: No adverse reaction; Pain is decreased tl2 02:33 Drug: Zosyn 3.375 grams Route: IVPB; Infused Over: 60 mins; Site: left wrist; tl2 03:30 Follow up: IV Status: Completed infusion; IV Intake: 100ml tl2 02:33 Drug: Phenergan 6.25 mg Route: IVP; Site: left wrist; tl2 03:00 Follow up: Response: No adverse reaction; Nausea is decreased tl2 04:34 Drug: Dilaudid 1 mg Route: IVP; Site: left wrist; tl2 04:38 Follow up: Response: No adverse reaction; No adverse reaction, given upon transfer to tl2 floor Intake: 03:30 IV: 100ml; Total: 100ml. tl2 Outcome: 03:00 Admitted to Tele accompanied by tech, family with patient, via wheelchair, room 429, tl2 with chart, Report called to LUIZ Hines 03:00 Condition: stable 03:00 Discharge instructions given to patient, family, Instructed on the need for admit. 03:48 Decision to Hospitalize by Provider. ia 04:39 Patient left the ED. tl2 Signatures: Dispatcher [employer] EDMS Sarah Randall, RN RN aa1 Baldemar Jon PA PA cp Ogletree, Danielle do Knox, Taylor RN RN tl2 Steve Britton MD MD wa Roque, Raymond RN RN rr5
--- NOTE | 2018-12-04 03:49 | EDPHYS ---
Physician Documentation [facility] Name: Yusuf Bah Age: 53 yrs Sex: Male : 1965 Arrival Date: 12/03/2018 Time: 23:42 Bed 7 Private MD: Garo Chavarria ED Physician Steve Britton HPI: 12/04 00:41 This 53 yrs old Male presents to ER via Wheelchair with complaints of wa Abdominal Pain. 00:41 The patient presents with abdominal pain in the left lower quadrant. Onset: The wa symptoms/episode began/occurred 6 hour(s) ago. The symptoms do not radiate. Associated signs and symptoms: Pertinent negatives: nausea and vomiting, blood in stools, chest pain, diarrhea, palpitations, shortness of breath. The symptoms are described as sharp. Modifying factors: The symptoms are alleviated by nothing, the symptoms are aggravated by nothing. Severity of pain: At its worst the pain was moderate in the emergency department the pain is unchanged. The patient has not experienced similar symptoms in the past. The patient has not recently seen a physician. Historical: - Allergies: 00:03 Sulfa (Sulfonamide Antibiotics); rr5 - Home Meds: 00:03 amlodipine 10 mg tab 1 tab once daily [Active]; furosemide 40 mg Oral tab 1 tab 2 times rr5 per day [Active]; sertraline 50 mg Oral tab 1 tab once daily [Active]; atorvastatin 80 mg Oral tab 1 tab once daily [Active]; Plavix 75 mg Oral tab 1 tab once daily [Active]; Stool Softener 100 mg Oral tab 1 tab 2 times per day [Active]; Ranexa 1,000 mg Oral Tb12 1 tab daily [Active]; metoprolol tartrate 100 mg Oral tab 1 tab 2 times per day [Active]; hydralazine 25 mg Oral tab 3 tab 2 times per day [Active]; aspirin 325 mg Oral tab 1 tab once daily [Active]; famotidine 40 mg Oral tab 1 tab once daily [Active]; clonidine HCl 0.1 mg Oral tab 1 tab 3 times per day [Active]; Ambien 5 mg Oral tab 1 tab once daily [Active]; [place] 7.5-325 mg Oral tab 1 tab twice a day [Active]; amitriptyline 10 mg Oral tab 1 tab daily [Active]; Travatan Z 0.004 % ophthalmic drop 1 drop once daily [Active]; metolazone 5 mg Oral tab 1 tab once daily [Active]; Auryxia 210 mg iron Oral tab 2 tabs 3 times per day [Active]; Nitrostat 0.4 mg SL subl 1 tab every 5 minutes [Active]; nitroglycerin 0.2 mg/hr Topical pt24 1 patch as needed [Active]; Zofran (as hydrochloride) 4 mg Oral tab 1 tabs every 6 hours [Active]; promethazine 25 mg Oral tab 1 tab every 8 hours [Active]; lactulose 10 gram/15 mL Oral soln 30 mL once daily [Active]; Humalog Sub-Q per insulin pump [Active]; - PMHx: 00:03 Angina; CAD; Depression; Diabetes - IDDM; Dialysis; GERD; Glaucoma; High Cholesterol; rr5 Hypertension; Renal Disease; Small vessle disease of the heart; - PSHx: 00:03 av fistula; Appendectomy; Cholecystectomy; shoulder surgery; rr5 - Immunization history:: Adult Immunizations up to date. - Social history:: Smoking status: Patient/guardian denies using tobacco, Patient/guardian denies using alcohol, street drugs. - Ebola Screening: : Patient negative for fever greater than or equal to 101.5 degrees Fahrenheit, and additional compatible Ebola Virus Disease symptoms Patient denies exposure to infectious person Patient denies travel to an Ebola-affected area in the 21 days before illness onset. - Family history:: not pertinent. - Hospitalizations: : No recent hospitalization is reported. ROS: 00:43 Constitutional: Negative for fever, chills, and weight loss, Eyes: Negative for injury, wa pain, redness, and discharge, ENT: Negative for injury, pain, and discharge, Neck: Negative for injury, pain, and swelling, Cardiovascular: Negative for chest pain, palpitations, and edema, Respiratory: Negative for shortness of breath, cough, wheezing, and pleuritic chest pain, Back: Negative for injury and pain, : Negative for injury, bleeding, discharge, and swelling, MS/Extremity: Negative for injury and deformity, Skin: Negative for injury, rash, and discoloration, Neuro: Negative for headache, weakness, numbness, tingling, and seizure, Psych: Negative for depression, anxiety, suicide ideation, homicidal ideation, and hallucinations. 00:43 Abdomen/GI: Positive for abdominal pain, Negative for nausea, vomiting, and diarrhea. Exam: 00:43 Constitutional: This is a well developed, well nourished patient who is awake, alert, wa and in no acute distress. Head/Face: Normocephalic, atraumatic. Eyes: Pupils equal round and reactive to light, extra-ocular motions intact. Lids and lashes normal. Conjunctiva and sclera are non-icteric and not injected. Cornea within normal limits. Periorbital areas with no swelling, redness, or edema. ENT: Nares patent. No nasal discharge, no septal abnormalities noted. Tympanic membranes are normal and external auditory canals are clear. Oropharynx with no redness, swelling, or masses, exudates, or evidence of obstruction, uvula midline. Mucous membranes moist. Neck: Trachea midline, no thyromegaly or masses palpated, and no cervical lymphadenopathy. Supple, full range of motion without nuchal rigidity, or vertebral point tenderness. No Meningismus. Chest/axilla: Normal chest wall appearance and motion. Nontender with no deformity. No lesions are appreciated. Cardiovascular: Regular rate and rhythm with a normal S1 and S2. No gallops, murmurs, or rubs. Normal PMI, no JVD. No pulse deficits. Respiratory: Lungs have equal breath sounds bilaterally, clear to auscultation and percussion. No rales, rhonchi or wheezes noted. No increased work of breathing, no retractions or nasal flaring. Back: No spinal tenderness. No costovertebral tenderness. Full range of motion. Male : Normal genitalia with no discharge or lesions. Skin: Warm, dry with normal turgor. Normal color with no rashes, no lesions, and no evidence of cellulitis. MS/ Extremity: Pulses equal, no cyanosis. Neurovascular intact. Full, normal range of motion. Neuro: Awake and alert, GCS 15, oriented to person, place, time, and situation. Cranial nerves II-XII grossly intact. Motor strength 5/5 in all extremities. Sensory grossly intact. Cerebellar exam normal. Normal gait. Psych: Awake, alert, with orientation to person, place and time. Behavior, mood, and affect are within normal limits. 00:43 Abdomen/GI: Inspection: abdomen appears normal, Bowel sounds: normal, in all quadrants, Palpation: soft, in all quadrants, mild abdominal tenderness, in the left lower quadrant, Hernia: not appreciated. Vital Signs: 12/03 23:55 BP 158 / 78; Pulse 71; Resp 20; Temp 97; Pulse Ox 98% ; Weight 97.07 kg; Height 6 ft. 3 rr5 in. (190.50 cm); Pain 9/10; 12/04 00:49 BP 160 / 94; Pulse 73; Resp 18; Pulse Ox 97% on R/A; tl2 01:41 BP 161 / 91; Pulse 73; Resp 18; Pulse Ox 99% on R/A; tl2 02:30 BP 154 / 88; Pulse 71; Resp 18; Pulse Ox 96% on R/A; tl2 03:00 BP 166 / 81; Pulse 72; Resp 18; Pulse Ox 97% on R/A; tl2 03:45 BP 155 / 82; Pulse 70; Resp 18; Pulse Ox 98% on R/A; tl2 12/03 23:55 Body Mass Index 26.75 (97.07 kg, 190.50 cm) rr5 MDM: 00:00 Patient medically screened. 00:44 Differential diagnosis: AAA, bowel obstruction, diverticulitis, non-specific abd pain, wa Ureterolithiasis. 03:43 Data reviewed: vital signs, nurses notes. sc 03:44 Test interpretation: by ED physician or midlevel provider: labs noted for elevated K at wa 5.5. glucose of 177. BUN/Cr of 63 and 7.53. AST of 58. UA noted for 3+ blood and 3+ protein. Test interpretation: by ED physician or midlevel provider: CT abd/pelvis: findings suggestive of mild duodenitis. . Response to treatment: the patient's symptoms have mildly improved after treatment. Physician consultation: Hector Liu MD. Admission orders: after a detailed discussion of the patient's condition and case, the admit orders are written by me. ED course: pt's pain did not significantly improved to be able to d/c even after several rounds of IV pain meds. IV abd given. admit for further eval. 12/04 00:27 Order name: Basic Metabolic Panel; Complete Time: 02:18 EDMS 12/04 00:27 Order name: Liver (Hepatic) Function; Complete Time: 02:18 EDMS 12/04 00:27 Order name: Lipase; Complete Time: 02:18 EDMS 12/04 00:27 Order name: Creatinine (Radiology Only) EDMS 12/04 00:28 Order name: CBC with Automated Diff; Complete Time: 00:41 EDMS 12/04 00:28 Order name: Urine Microscopic Only EDMS 12/04 00:44 Order name: Urine Dipstick--Ancillary (enter results); Complete Time: 01:25 cm6 12/04 00:02 Order name: IV Saline Lock; Complete Time: 00:04 sc 12/04 00:02 Order name: Labs collected and sent; Complete Time: 00:04 sc 12/04 00:03 Order name: Urine Dipstick-Ancillary (obtain specimen); Complete Time: 00:39 sc 12/04 00:24 Order name: Abdomen EDMS 12/04 03:58 Order name: NPO EDMS Administered Medications: 00:16 Drug: Zofran 4 mg Route: IVP; Site: left wrist; tl2 00:47 Follow up: Response: No adverse reaction; Nausea is decreased tl2 00:16 Drug: fentaNYL (PF) 50 mcg Route: IVP; Site: left wrist; tl2 00:47 Follow up: Response: No adverse reaction; Pain is unchanged, physician notified tl2 00:47 Drug: morphine 4 mg Route: IVP; Site: left wrist; tl2 01:20 Follow up: Response: No adverse reaction; Pain is decreased tl2 01:40 Drug: morphine 4 mg Route: IVP; Site: left wrist; tl2 02:33 Follow up: Response: No adverse reaction; Pain is unchanged, physician notified tl2 02:32 Drug: Dilaudid 1 mg Route: IVP; Site: left wrist; tl2 03:00 Follow up: Response: No adverse reaction; Pain is decreased tl2 02:33 Drug: Zosyn 3.375 grams Route: IVPB; Infused Over: 60 mins; Site: left wrist; tl2 03:30 Follow up: IV Status: Completed infusion; IV Intake: 100ml tl2 02:33 Drug: Phenergan 6.25 mg Route: IVP; Site: left wrist; tl2 03:00 Follow up: Response: No adverse reaction; Nausea is decreased tl2 04:34 Drug: Dilaudid 1 mg Route: IVP; Site: left wrist; tl2 04:38 Follow up: Response: No adverse reaction; No adverse reaction, given upon transfer to tl2 floor Disposition: 12/04/18 03:48 Hospitalization ordered by Lori Chavarria for Observation. Preliminary diagnosis is Acute Abdominal Pain. - Bed requested for Telemetry/MedSurg (observation). - Status is Observation. tl2 - Condition is Stable. - Problem is new. - Symptoms have improved. UTI on Admission? No Signatures: Dispatcher [employer] EDAK Lise Moore RN RN mw Page, Corey, PA PA cp Knox, Taylor, RN RN tl2 Steve Britton MD MD wa Roque, Raymond RN RN rr5 Corrections: (The following items were deleted from the chart) 00:57 00:49 BASIC METABOLIC PANEL+C.LAB.BRZ ordered. [facility] EDAK 00:57 00:49 CBC+H.LAB.BRZ ordered. [facility] 00:57 00:49 Creatinine for Radiology+C.LAB.BRZ ordered. [facility] 00:57 00:49 HEPATIC FUNCTION+C.LAB.BRZ ordered. [facility] 00:57 00:49 LIPASE+C.LAB.BRZ ordered. [facility] 00:58 00:50 UA MICROSCOPIC+U.LAB.BRZ ordered. [facility] 01:43 00:50 Abdomen Pelvis Wo Con+CT.RAD.BRZ ordered. [facility] EDA[facility] 04:11 03:48 Hospitalization Ordered by A Aura CHATMAN for Observation. Preliminary diagnosis is mw Acute Abdominal Pain. Bed requested for Telemetry/MedSurg (observation). Status is Observation. Condition is Stable. Problem is new. Symptoms have improved. UTI on Admission? No. sc 04:39 04:11 12/04/2018 03:48 Hospitalization Ordered by A Aura CHATMAN for Observation. tl2 Preliminary diagnosis is Acute Abdominal Pain. Bed requested for Telemetry/MedSurg (observation). Status is Observation. Condition is Stable. Problem is new. Symptoms have improved. UTI on Admission? No.
[2018-12-04] MEDS ORDERED: ONDANSETRON 4 MG/2 ML VIAL IV PRN (03:55)
[2018-12-04] MEDS ORDERED: D5 0.45 NS 1,000 ML IV SCH (04:00)
[2018-12-04 04:48] VITALS: BMI 26.7
[2018-12-04] MEDS: MORPHINE 4 MG/ML SYR IV PRN ×2 (06:36→10:20)
[2018-12-04] MEDS ORDERED: Levofloxacin500mg IV 500 MG/100 ML BAG IV ONE (07:00)
[2018-12-04] MEDS ORDERED: SODIUM CHLORIDE 0.9% 10ML INJ IV PRN (08:11)
[2018-12-04] MEDS ORDERED: ONDANSETRON 4 MG (ODT) TAB PO PRN (08:13)
[2018-12-04] MEDS ORDERED: NITROGLYCERIN 0.2 MG/HR (5 MG) PATCH TD PRN (08:13)
[2018-12-04] MEDS ORDERED: NITROGLYCERIN 0.4 MG/TAB SL PRN (08:13)
[2018-12-04] MEDS ORDERED: GLUCAGON 1 MG/VIAL IM PRN (08:15)
[2018-12-04] MEDS ORDERED: D50W 25 GM/50 ML SYRINGE IV PRN (08:15)
[2018-12-04] MEDS ORDERED: FERRIC CITRATE 420 MG PO SCH (08:15)
[2018-12-04] MEDS: METRONIDAZOLE 500mg IVPB 500 MG/100 ML BAG IV SCH ×2 (09:42→17:24)
[2018-12-04] MEDS: PROMETHAZINE 25 MG TABLET PO PRN ×2 (09:42→21:52)
[2018-12-04] MEDS: PANTOPRAZOLE 40 MG INJ IVP SCH (09:42)
[2018-12-04] MEDS: HYDROCODONE/APAP 7.5/325 MG TAB PO SCH ×3 (09:43→21:53)
[2018-12-04] MEDS: ONDANSETRON 4 MG/2 ML VIAL IV PRN ×2 (10:20→17:24)
[2018-12-04] MEDS: LACTULOSE 20 GM/30 ML UCUP PO PRN (10:23)
[2018-12-04] MEDS: ASPIRIN EC 325 MG TABLET PO SCH (10:24)
[2018-12-04] MEDS: HYDRALAZINE HCL 25 MG TABLET PO SCH ×2 (10:24→22:23)
[2018-12-04] MEDS: CLOPIDOGREL 75 MG TABLET PO SCH (10:24)
[2018-12-04] MEDS: DOCUSATE NA/SENNA CONC 1 TAB PO SCH ×2 (10:25→21:52)
[2018-12-04] MEDS: METOPROLOL TAR 50 MG TAB PO SCH ×2 (10:25→22:23)
[2018-12-04] MEDS: cloNIDine HCl 0.1 MG TAB PO SCH ×3 (10:25→22:23)
[2018-12-04] MEDS: AMLODIPINE 10 MG TAB PO SCH (10:25)
[2018-12-04] MEDS: FUROSEMIDE 40 MG TABLET PO SCH ×2 (10:26→17:24)
[2018-12-04] MEDS: SERTRALINE HCL 50 MG TAB PO SCH (10:29)
--- NOTE | 2018-12-04 11:07 | RAD REPORT ---
EXAM DESCRIPTION: CT Abdomen and Pelvis Without Intravenous Contrast CLINICAL HISTORY: The patient is 53 years old and is Male; abdominal pain TECHNIQUE: Axial computed tomography images of the abdomen and pelvis without intravenous contrast. Sagittal and coronal reformatted images were created and reviewed. This CT exam was performed usi ng one or more of the following dose reduction techniques: automated exposure control, adjustment o f the mA and/or kV according to patient size, and/or use of iterative reconstruction technique. COMPARISON: No relevant prior studies available. FINDINGS: LUNG BASES: Unremarkable. No mass. No consolidation. HEART: The heart is enlarged. There is a small pericardial effusion. ABDOMEN: LIVER: The liver is enlarged. GALLBLADDER AND BILE DUCTS: Surgical clips are present in the right upper quadrant, consistent w ith previous cholecystectomy. PANCREAS: Unremarkable. No ductal dilation. SPLEEN: Unremarkable. ADRENALS: Unremarkable. No mass. KIDNEYS AND URETERS: The bladder is incompletely distended. Diffuse bladder wall thickening is n oted. Bilateral mild hydroureteronephrosis is noted. No obstructing renal or ureteral calculus is see n. STOMACH AND BOWEL: The stomach is distended with food contents. Mild mucosal thickening involvin g the proximal small bowel is noted. The small bowel is otherwise normal in caliber. Stool is present throughout colon. There is no bowel obstruction. PELVIS: APPENDIX: No findings to suggest acute appendicitis. BLADDER: Unremarkable. No stones. REPRODUCTIVE: Unremarkable as visualized. ABDOMEN and PELVIS: INTRAPERITONEAL SPACE: Small amount of free fluid is present throughout the abdomen and pelvis. No free air. BONES/JOINTS: No acute fracture. SOFT TISSUES: A small fat-containing umbilical hernia is present. VASCULATURE: Extensive atherosclerosis of the vasculature is present. No abdominal aortic aneu rysm. LYMPH NODES: Unremarkable. No enlarged lymph nodes. IMPRESSION: 1. Diffuse bladder wall thickening which may be secondary to incomplete distention. Ho wever, cystitis is within the differential. 2. Findings suggestive of mild duodenitis. 3. Hepatomegaly with small amount of free fluid throughout the abdomen and pelvis. 4. Cardiomegaly with small pericardial effusion. Electronically signed by: Neli Saunders MD 12/04/2018 1:54 AM CDT Due to temporary technical issues with the PACS/Fluency reporting system, reports are being signed by the in house radiologist as a courtesy to ensure prompt reporting. The interpreting radiologist is f ully responsible for the content of the report.
[2018-12-04] MEDS: INSULIN -REGULAR HUMAN 50 UNIT/0.5 ML ML SQ SCH ×3 (11:30→21:00)
--- NOTE | 2018-12-04 13:09 | HP ---
Date of Admission: 12/04/2018 Chief Complaint: Abdominal pain. History Of Present Illness: This is a 53-year-old male patient with multiple comorbidities, came int o emergency room yesterday with complaints of abdominal pain. The patient says that the abdominal pa in started around 5 p.m. yesterday. Pain has been continuous, associated with some nausea but no vom iting, no fever, no chills. His last bowel movement was yesterday and reported that has rather form to hard stool, but not watery stool. After he was evaluated in the ER, [facility] The patient has required IV pain medication including morphine and last dose was about 20 minute s before I saw him and reported that it was not helping to alleviate his pain. The patient is underg oing evaluation in [place] for cardiac transplantation. He did fall down about 5 days ago and has dobson perficial abrasion on the left anterior knee. No evidence of infection in the surrounding skin. Medications: List reviewed. Review of Systems: GI: As mentioned above all other systems reviewed and negative. Allergies: TO SULFA. Past Medical History: End-stage renal disease, on hemodialysis, hypertension, type 2 diabetes mellit us. Chronic back pain, coronary artery disease, anemia due to chronic kidney disease, hyperlipidemia , gastritis. Past Surgical History: Laparoscopic cholecystectomy, dialysis, shunt placement in form of AV graft p lacement, rotator cuff repair, appendectomy, eye surgery. Family History: Significant for throat cancer, tuberculosis, hypertension, diabetes. Social History: Negative for smoking and alcohol use. Physical Examination: Vital Signs: Temperature 96.5, pulse 73, respiratory rate 16, blood pressure 176/78, oxygen saturati on 97%. General: Awake, alert, oriented, not in distress. HEENT: Head atraumatic, normocephalic. Conjunctivae nonerythematous. Sclerae white. Mouth, no thr ush or edema noted. Ears/Nose, no mass, lesion, discharge noted. Neck: Supple. No JVD, lymph nodes, bruit, thyromegaly noted. Lungs: Bilateral good equal air entry. Clear to auscultation. No rhonchi. No rales. Heart: Normal heart sounds, no murmur or gallop. Abdomen: Soft. No distention. No hepatosplenomegaly. No guarding. No rigidity. No rebound tende rness. Bowel sounds normoactive. The patient does have some mild tenderness in the right upper quad rant area, umbilical region and some in right lower quadrant. Extremities: No leg edema. No calf tenderness. Skin: No rash, ulcer, cellulitis. Lymphatics: No lymph node enlargement in neck, supraclavicular, infraclavicular region. Neuro: No focal neurological deficit. Chest: Unremarkable. External Genitalia: Deferred. Rectal: Deferred. Laboratory Data: White count 6.5, hemoglobin 11.5, platelets 231. Sodium 136, potassium 5.5, chlori de 98, bicarb 21, BUN 63, creatinine 7.53, glucose 177, SGOT 58, SGPT 48, total bilirubin 0.9, lipase 268. Urinalysis: 3+ protein, 3+ blood, trace leukocyte esterase. CAT scan of the abdomen and pelv is done in the emergency room was reported as small amount of fluid in the abdominal cavity with pres ence of duodenitis type of changes. No other acute findings noted. Impression: 1.Duodenitis. 2.Abdominal pain. 3.End-stage renal disease, on hemodialysis. 4.Hyperkalemia. 5.Hypertension. 6.Type 2 diabetes mellitus. 7.Coronary artery disease. 8.Chronic back pain. 9.Anemia due to chronic kidney disease. 10.Hyperlipidemia. 11.Gastritis. Plan: 1.Admit patient to hospital for further evaluation and management of this problem. The patient will be seen in consultation by telegraphic typewriter installer for dialysis support. We will continue IV pain medication. Give IV Protonix. Home medications will be continued. Start him on clear liquid diet. There is no evidence of any acute surgical abdomen at this point and we will see how he responds to this medicat ion at this point. Details and plan of treatment discussed with the patient. ERNESTO/MODL Voice ID: [id number]
[2018-12-04] MEDS: FENTANYL CITR 100 MCG/2 ML IV PRN ×2 (13:39→17:23)
--- NOTE | 2018-12-04 14:57 | CON ---
Date of Consultation: 12/04/2018 Reason For Consultation: Abdominal pain. History Of Present Illness: The patient is a 53-year-old gentleman who presents to the emergency lexie with acute onset of diffuse abdominal pain starting in the left lower quadrant and is going to the right side associated with nausea but no vomiting. No bloating, belching or heartburn. No diarrhea, some mild constipation. No blood in his stool. No dysuria. No hematuria. He does make urine even though he is a dialysis patient. No sore throat, runny nose, cough, headaches, or dizziness. No ch est pain. Review of Systems: Otherwise unremarkable. Past Medical History: Significant for end-stage renal disease, hypertension, type 2 diabetes, chroni c back pain, coronary artery disease, anemia, hyperlipidemia and gastritis. Past Surgical History: Laparoscopic cholecystectomy, appendectomy, eye surgery, AV graft placement, rotator cuff surgery. Allergies: INCLUDE SULFA. Social History: He denies smoking or drinking. Family History: Significant for throat cancer, tuberculosis, hypertension, diabetes. Physical Examination: Vital Signs: His vital signs are stable. He is afebrile. General: He is awake, alert, oriented x3. Head and Neck: Cranial nerves 2 through 12 grossly within normal limits. No neck masses. No JVD. Throat clear. Neck is supple. Chest: Clear. Heart: S1, S2. Abdomen: Soft, nondistended, nontender. Positive bowel sounds. Extremities: Neurovascularly intact. Neuro: Nonfocal. Laboratory Data: His white count is 6.5, with a slight left shift. His chemistries reviewed, his BU N is 63, creatinine is 7.91, his potassium is 5.5. His LFTs are essentially within normal limit excep t for slight elevation of the AST at 58, lipase is 268. His CT of the abdomen and pelvis reviewed, i t shows diffuse bladder wall thickening which may be secondary to incomplete distention however cysti tis is within the differential and findings are suggestive of mild duodenitis, hepatomegaly with smal l amount of free fluid throughout the abdomen and pelvis, cardiomegaly with small pericardial effusio n. Assessment: This 53-year-old gentleman with multiple medical problems, with probable duodenitis and decompensation of his cardiac status with mild pericardial effusion, hepatomegaly and no need for any surgical intervention on this patient at this time. Recommendations: Would be to medically manage his pain. Start him on clear liquids. Advance as price carlin. Empiric antibiotics. GI followup. Reconsult Surgery p.r.n. Plan of care discussed in juan j lundy with the patient and Dr. Chavarria. /NESSA Voice ID: [id number] Report ID: [id number]
[2018-12-04] MEDS: METOLAZONE 5 MG TABLET PO SCH (16:25)
[2018-12-04] MEDS: HOME MED 1 EA UNK (Travoprost (Benzalkonium) [Travatan 0.004% Eye Drop] 1 DROP) EACH EYE SCH (21:00)
[2018-12-04] MEDS: ZOLPIDEM TARTRATE 5 MG TABLET PO SCH (21:00)
[2018-12-04] MEDS: FAMOTIDINE 20 MG TAB PO SCH (21:51)
[2018-12-04] MEDS: AMITRIPTYLINE 10 MG TAB PO SCH (21:52)
[2018-12-04] MEDS: ATORVASTATIN 80 MG TAB PO SCH (21:52)
--- NOTE | 2018-12-05 01:07 | CON ---
Date of Consultation: 12/04/2018 Chief Complaint: End-stage renal disease on dialysis, diabetic kidney disease, congestive heart fail ure with CHF exacerbation. The patient was found to have fluid overload, dialysis is scheduled today with ultrafiltration and potassium level was elevated. Two potassium dialysate was used to control h yperkalemia. History Of Present Illness: The patient is a 53-year-old man with multiple medical problems includin g history of cardiomyopathy, coronary artery disease. The patient presented to the hospital because of abdominal pain. Pain started around 5 p.m. yesterday. The patient was having nausea, vomiting, a nd was complaining of left upper quadrant pain and right upper quadrant pain. The patient was evalua joseph in the emergency room. He received IV pain medication and was treated with morphine. The patient is undergoing evaluation for cardiac transplantation in [place]. Review of Systems: Constitutional: He is complaining of generalized weakness. Eyes: Denies vision changes. Ears, Nose, Mouth, and Throat: Denies sore throat or earache. Respiratory: He has dyspnea on exertion. Denies PND or orthopnea. Cardiovascular: Denies chest pain or palpitation. GI: He has nausea. Denies vomiting, melena, hematemesis. He was complaining of left and right uppe r quadrant pain. : Denies dysuria or hematuria. Musculoskeletal: Denies gout. Denies muscle aches or joint swelling. All other systems reviewed and all are negative. Past Medical History: End-stage renal disease, on hemodialysis Tuesday, Tuesday, Tuesday; hypertensi on; diabetes mellitus type 2; diabetic kidney disease; hypertensive kidney disease; congestive heart failure; hyperlipidemia; gastroparesis; anemia; CKD; renal osteodystrophy. Past Surgical History: Laparoscopic cholecystectomy, dialysis shunt, AV graft placement, rotator cuf f repair, appendectomy, eye surgery. Family History: Throat cancer, tuberculosis, hypertension, diabetes. Social History: Negative for tobacco, alcohol, or illicit drugs. Physical Examination: General: The patient is awake and alert. Vital Signs: Blood pressure is 150/78, heart rate 73, respiratory rate 16, temperature 96.6. Eyes: Anicteric sclerae. EOMI. Ears, Nose, Mouth, and Throat: Oral mucosa moist. No pallor. Neck: Supple. No JVD. No bruits. Lungs: Crackles bilaterally present. No wheezing. No rhonchi. GI: Abdomen is soft, benign. There is tenderness over left upper quadrant. No rebound. No guardin g. Extremities: Slight edema. No clubbing. No cyanosis. SKIN: Warm and dry. No skin rashes. Neurologic: Moving extremities. Cranial nerves intact. Psychiatric: Alert and oriented x3. Normal affect. Laboratory Data: Hemoglobin 11.5, WBC 6.5, platelet count is 231,000, neutrophils 80.5, lymphocytes 6.8, monocytes 7.5. Chemistry showed sodium 136, potassium 5.5, BUN 63, creatinine 5.31, glucose 177 , bilirubin 0.9, albumin 4. Impression And Plan: 1.End-stage renal disease, hyperkalemia. The patient will have dialysis today with 2 potassium dial ysate. Continue low-potassium diet. 2.Borderline metabolic acidosis. The patient will have dialysis. Adjust bicarbonate. Monitor elec trolytes. 3.Hypertension. Blood pressure is in acceptable control. Ultrafiltration will be done to treat hyp ervolemia and provide negative fluid balance. 4.Abdominal pain. Workup pending. Recommend to rule out pancreatitis. EB/MODL Voice ID: [id number] Report ID: [id number]
[2018-12-05] MEDS: ONDANSETRON 4 MG/2 ML VIAL IV PRN ×2 (01:10→08:48)
[2018-12-05] MEDS: FENTANYL CITR 100 MCG/2 ML IV PRN (01:10)
[2018-12-05] MEDS: METRONIDAZOLE 500mg IVPB 500 MG/100 ML BAG IV SCH ×3 (01:12→16:25)
[2018-12-05 04:31] LABS: Absolute Lymphocytes (CBC) 0.6 K/uL (0.7-4.9); Basophils % 1.4 % (0-1.3); Eosinophils % 5.6 % (0-4.4); Lymphocytes % 14.4 % (15.3-44.8); MPV 8.2 fL (7.6-11.3); Monocytes % 16.7 % (3.3-12.3); RBC Red Blood Cell Count 3.19 M/uL (4.33-5.43)
[2018-12-05 04:54] LABS: Albumin 3.3 g/dL (3.4-5.0); Bilirubin Direct 0.5 mg/dL (0-0.2); Bilirubin Total 0.9 mg/dL (0.2-1.0); Potassium 4.6 mmol/L (3.5-5.1); Protein, Total 7.4 g/dL (6.4-8.2)
[2018-12-05 05:28] LABS: Blood Morphology Comment NOT SEEN (NOT SEEN); Platelet Estimate ADEQ
[2018-12-05] MEDS: INSULIN -REGULAR HUMAN 50 UNIT/0.5 ML ML SQ SCH ×4 (07:30→20:29)
[2018-12-05] MEDS: HYDRALAZINE HCL 25 MG TABLET PO SCH ×2 (08:46→20:29)
[2018-12-05] MEDS: METOPROLOL TAR 50 MG TAB PO SCH ×2 (08:46→20:28)
[2018-12-05] MEDS: AMLODIPINE 10 MG TAB PO SCH (08:47)
[2018-12-05] MEDS: cloNIDine HCl 0.1 MG TAB PO SCH ×3 (08:47→20:29)
[2018-12-05] MEDS: SERTRALINE HCL 50 MG TAB PO SCH (08:47)
[2018-12-05] MEDS: DOCUSATE NA/SENNA CONC 1 TAB PO SCH ×2 (08:47→20:28)
[2018-12-05] MEDS: FUROSEMIDE 40 MG TABLET PO SCH ×2 (08:48→16:30)
[2018-12-05] MEDS: CLOPIDOGREL 75 MG TABLET PO SCH (08:48)
[2018-12-05] MEDS: HYDROCODONE/APAP 7.5/325 MG TAB PO SCH ×3 (08:49→20:28)
[2018-12-05] MEDS: ASPIRIN EC 325 MG TABLET PO SCH (08:52)
[2018-12-05] MEDS: PANTOPRAZOLE 40 MG INJ IVP SCH (08:52)
[2018-12-05] MEDS ORDERED: EPOETIN ALFA 10,000 UNIT/ML VIAL IV SCH (10:45)
--- NOTE | 2018-12-05 12:05 | PN ---
Date of Progress Note: 12/05/2018 The patient's pain is better; however after breakfast this morning he had 1 episode of vomiting. His vital signs are stable. Afebrile. Laboratory data reviewed. Abdomen is benign. Assessment: Gastroenteritis, duodenitis. Recommendation: As patient has not had a bowel movement since Tuesday and he is on lactulose and st ool softeners, we will give him a tap water enema and retry at lunch and if he tolerates his lunch an d he has results with enema then cleared from surgical standpoint for discharge. Follow up with his GI doctors. KINGSLEY/NESSA Voice ID: [id number] Report ID: [id number]
--- NOTE | 2018-12-05 13:35 | PN ---
Date of Progress Note: 12/05/2018 Subjective: The patient still complaining from nausea and vomiting, cannot tolerate food. No abdomi nal pain. The patient also complaining from constipation. Physical Examination: Vital Signs: When I saw the patient, blood pressure 133/64, pulse of 64. Chest: Clear to auscultation. Heart: S1 and S2. Systolic murmur. Abdomen: Soft and nontender. Extremities: No edema. Laboratory Data: WBC 4.4, H and H 10.1/31, platelets 182. Sodium 137, potassium 4.6, bicarb 25, BUN 45, creatinine 6.1, calcium 8.7. Current Medications: The patient on include: 1.Aspirin. 2.Levaquin 250 daily. 3.Metronidazole 500 t.i.d. 4.Plavix. 5.Reglan. 6.Atorvastatin. 7.Clonidine 0.1 t.i.d. 8.Hydralazine 75. 9.Metoprolol 100 b.i.d. 10.Ranexa. 11.Amitriptyline. 12.Zoloft. 13.Lactulose. 14.Metolazone. 15.Insulin. 16.Fentanyl. Assessment And Plan: 1.End-stage renal disease, stable. Continue dialysis Tuesday, Tuesday, and Tuesday. 2.Hypertension, controlled, optimal. I am going to continue current medication. Follow up with the primary. 3.Anemia of chronic kidney disease, stable. We will resume Epogen. 4.Gastroenteritis. Continue current treatment. Follow up with primary. 5.Will follow up with Surgery. 6.Constipation, severe. Fleet enema today and will follow up with primary. BRAYAN Voice ID: [id number] Report ID: [id number]
[2018-12-05] MEDS: LACTULOSE 20 GM/30 ML UCUP PO PRN (14:43)
[2018-12-05] MEDS ORDERED: MAGNESIUM HYDROXIDE 8% 30 ML PO ONE (16:06)
[2018-12-05] MEDS: METOLAZONE 5 MG TABLET PO SCH (16:29)
[2018-12-05] MEDS: ATORVASTATIN 80 MG TAB PO SCH (20:27)
[2018-12-05] MEDS: AMITRIPTYLINE 10 MG TAB PO SCH (20:27)
[2018-12-05] MEDS: ZOLPIDEM TARTRATE 5 MG TABLET PO SCH (20:28)
[2018-12-05] MEDS: FAMOTIDINE 20 MG TAB PO SCH (20:28)
[2018-12-05] MEDS: HOME MED 1 EA UNK (Travoprost (Benzalkonium) [Travatan 0.004% Eye Drop] 1 DROP) EACH EYE SCH (20:30)
[2018-12-06] MEDS: METRONIDAZOLE 500mg IVPB 500 MG/100 ML BAG IV SCH ×2 (01:12→08:32)
--- NOTE | 2018-12-06 01:22 | PN ---
Date of Progress Note: 12/05/2018 Subjective: The patient was seen this morning for followup. No new complaints, problems reported by the patient. Overall, his abdominal pain was much better this morning as he reported. After I exam ined him, we talked about discharge today and he was comfortable going home since abdominal pain was better. Objective: Vital Signs: Reviewed. HEENT: Unremarkable. Lungs: Clear to auscultation. Heart: Sounds normal. Abdomen: Soft. Bowel sounds normal. No guarding, rigidity, tenderness, distention. Extremities: No leg edema. Laboratory Data: White count 4.4, hemoglobin 10.1, platelets 182. Sodium 137, potassium 4.6, chlori de 100, bicarb 25, BUN 45, creatinine 6.18, glucose 99. Impression: 1.Duodenitis. 2.End-stage renal disease, on hemodialysis. 3.Constipation. Plan: After I saw the patient, discharge was ordered for him to go home with oral antibiotic and juares toprazole, but nurse contacted and informed me that the patient started to have vomiting problem and he was given some antinausea and vomiting medication and then Humphrey saw him around that time, ordered Fleet enema. He had 2 different doses of Fleet enema and no bowel movement with that. I ordered mi lk of magnesia that has not helped any. The patient continues to have nausea along with his other co mplaints. He does not feel comfortable to go home and it will be best for him not to go home tonight . We will need to resolve this issue before we discharge him to go home, so I will see him tomorrow for more abbott. ERNESTO/NESSA Voice ID: [id number] Report ID: [id number]
[2018-12-06] MEDS: FENTANYL CITR 100 MCG/2 ML IV PRN (04:19)
[2018-12-06] MEDS ORDERED: Levofloxacin 250mg IV 250 MG/50 ML BAG IV SCH (07:00)
[2018-12-06] MEDS: INSULIN -REGULAR HUMAN 50 UNIT/0.5 ML ML SQ SCH ×2 (07:30→11:30)
[2018-12-06 08:28] VITALS: TEMP 97.8
[2018-12-06] MEDS: HYDROCODONE/APAP 7.5/325 MG TAB PO SCH (08:33)
[2018-12-06] MEDS: METOPROLOL TAR 50 MG TAB PO SCH (08:33)
[2018-12-06] MEDS: FUROSEMIDE 40 MG TABLET PO SCH (08:33)
[2018-12-06] MEDS: cloNIDine HCl 0.1 MG TAB PO SCH (08:33)
[2018-12-06] MEDS: ASPIRIN EC 325 MG TABLET PO SCH (08:33)
[2018-12-06] MEDS: HYDRALAZINE HCL 25 MG TABLET PO SCH (08:33)
[2018-12-06] MEDS: DOCUSATE NA/SENNA CONC 1 TAB PO SCH (08:34)
[2018-12-06] MEDS: CLOPIDOGREL 75 MG TABLET PO SCH (08:34)
[2018-12-06] MEDS: PANTOPRAZOLE 40 MG INJ IVP SCH (08:34)
[2018-12-06] MEDS: SERTRALINE HCL 50 MG TAB PO SCH (08:34)
[2018-12-06] MEDS: AMLODIPINE 10 MG TAB PO SCH (08:34)
[2018-12-06] MEDS ORDERED: NA CHLORIDE 0.9% 1,000 ML IV PRN (09:45)
--- NOTE | 2018-12-06 10:12 | P.PN ---
Subjective Date of Service: 12/06/18 Subjective: Improving Subjective seen and examined during HD had multiple BM yesterday can be discharged from nephrology point of view after HD need GI F/U as an Op Physical Examination - Vital Signs Temperature: 97.8 F Blood Pressure: 116/58 Pulse: 63 Respirations: 18 Pulse Ox (%): 97 - Physical Exam General: In no apparent distress, Oriented x3 HEENT: Atraumatic Neck: Supple, Without JVD or thyroid abnormality Respiratory: Clear to auscultation bilaterally Cardiovascular: Regular rate/rhythm, Normal S1 S2, No gallops, No rubs, Edema Gastrointestinal: Normal bowel sounds, Soft and benign Integumentary: No rashes Assessment And Plan - Current Problems (Diagnosis) (1) Abdominal pain Onset Date: 03/23/18 Current Visit: No Status: Acute - Plan End-stage renal disease, stable. HD today and resume on Tuesday as an OP Hypertension, Controlled Anemia of chronic disease Hb stable Abd pain likely due to gastroenteritis and constipation resolved pt with recurrent similar episdoes need Gi F/u as an OP
[2018-12-06 12:12] VITALS: BP 159/71
[2018-12-06 12:39] VITALS: O2SAT 95
[2018-12-06 19:48] LABS: HBsAG Nonreactive (Nonreactive)
--- NOTE | 2018-12-07 06:45 | DS ---
Date of Discharge: 12/06/2018 Disposition: Discharged to go home. Physical Examination: HEENT Examination: Unremarkable. Lungs: Clear to auscultation. Heart: Sounds normal. Abdomen: Soft. Bowel sounds normal. No guarding, rigidity, tenderness, or distention. Extremities: No leg edema. Discharge Medications And Instructions: 1.Continue all prior home medications. 2.Take pantoprazole daily as prescribed for 1 month and take it 30 minutes before breakfast. 3.Take antibiotic which is Levaquin and metronidazole for 1 week. 4.Follow up at my office per scheduled appointment. 5.The patient to follow up with Dr. Barron for weakness problem and the patient to use walker all the time. Hospital Course: This is a 53-year-old male patient, admitted to the hospital with abdominal pain. Please see dictated H and P for more information. After patient was evaluated in the emergency room, he was admitted to the hospital with abdominal pain. He had some right-sided abdominal tenderness a nd CAT scan of the abdomen had revealed changes of duodenitis. He was started on IV antibiotic which is Levaquin and Flagyl and IV Protonix was given. Nephrology consultation was requested for dialysi s support. Yesterday morning, when I saw him, his abdominal pain had improved significantly and was actually ready for discharge and, while waiting on the discharge, the patient started to have nausea, vomiting, and was complaining of constipation problem, and did not feel comfortable going home. We gave him 2 doses of Fleet Enema and 1 dose of milk of magnesia during the course of day today and jolanta e medications for vomiting. During nighttime, patient had 5 bowel movements, which was last night, a nd his abdominal pain problem has resolved now. No more nausea or vomiting overnight. Last night, w hen he was in the bathroom, as he was trying to hold on to the bar rails, he actually lost balance an d fell down on his knees. He already had one all a few days ago when he came to emergency room and h ad a superficial abrasion of the left knee. He did not have any other injury at this time. His knee was examined today. Superficial abrasion has remained unchanged; it is healing well, no evidence of any infection there. The patient reported this morning that he has significant muscle weakness of h is arms and legs and, if he gets on the floor, he has difficulty getting up. In fact, he has reporte d that last night 2 or 3 people had to help him to get up. He is also reporting weakness of his hand s and this is coming on in last few months as he reported and in the past he had seen Dr. Anderson aguero r some other reason and I have encouraged him to follow up with him for this muscle weakness problem, and the patient will call and schedule his appointment. If he needs assistance with appointment, he will contact my office. General Surgery and GI consultation were requested during this hospitalizat ion. The patient did not have any acute surgical abdomen. Final Diagnoses: 1.Duodenitis. 2.Constipation. 3.End-stage renal disease, on hemodialysis. 4.Hyperkalemia. 5.Hypertension. 6.Type 2 diabetes mellitus. 7.Coronary artery disease. 8.Chronic back pain. 9.Anemia due to chronic kidney disease. 10.Hyperlipidemia. 11.Gastritis. ERNESTO/MODL Voice ID: [id number] Report ID: [id number]
--- NOTE | 2018-12-08 21:44 | CON ---
Date of Consultation: 12/06/2018 Reason For Consultation: Abdominal pain with duodenitis noted on CT scan. History Of Present Illness: The patient is a 53-year-old white male with history of end-stage renal disease, on hemodialysis, hypertension, diabetes, chronic back pain, coronary artery disease, hyperli pidemia, gastritis. The patient presented to hospital with abdominal pain, stated pain started aroun d 5 p.m. the day before admission, associated with nausea but no emesis, fevers, chills, hematemesis, coffee-grounds emesis. A CT scan revealed inflammation of the duodenum. The patient recently under go cardiac evaluation in [place] as well. The patient also noted that his pain seemed to resolved wi th treatment of his constipation. On admission, he also had a constant left lower quadrant pain, whi ch improved 90%, he states after taking Milk of Magnesia and 2 tap water enemas, increased bowel move ments occurred and his pain in his left lower quadrant dissipated. He denies any upper abdominal karla n, fevers, chills, night sweats, hematemesis, coffee-grounds emesis, melena, and hematochezia. Past Medical History: Significant for diabetes, hypertension, end-stage renal disease, on hemodialys is, chronic back pain, coronary artery disease, gastritis, hyperlipidemia. Past Surgical History: Laparoscopic cholecystectomy, dialysis shunt for AV graft, rotator cuff repai r, appendectomy, eye surgery. Family History: Significant for throat cancer, tuberculosis, hypertension, and diabetes. Social History: He is from his after 27 years of marriage, he told me, somewhat sad. Two children. No tobacco. No alcohol. Family History: Father of throat cancer. Mother is alive with diabetes, hypertension, coronary artery disease and myocardial infarction. Physical Examination: Vital Signs: The patient is 6 foot 3 inch, 113 pounds, BMI 26.7 kg/m2. He has a temperature 97.8 de grees Fahrenheit, pulse 63, respirations 18, blood pressure 116/58, O2 saturation 97%. General: He is a somewhat frail gentleman, sitting on side of bed, in no acute distress. HEENT: Normocephalic, atraumatic. Anicteric. Pupils equal, round, and reactive to light. Extraocu lar movements intact. Oropharynx is clear. Neck: Supple. No masses. Respirations: Clear to auscultation bilaterally. Cardiac: Regular rate and rhythm. No gallops or rubs. Abdomen: Positive bowel sounds. Soft, nontender, nondistended. No hepatosplenomegaly. Extremities: No clubbing, cyanosis. Mild lower extremity edema. Neuro: Alert and oriented x3. Decreased strength in extremities specially lower extremity about 4/5 strength. Laboratory Data: The patient yesterday had a white count of 4.4, hemoglobin 10.1, hematocrit 31, MCV of 97, platelet count 182, polys of 62%, lymphocytes 14%, monocytes 17%, eosinophils 6%, basophils 1 %. The patient yesterday had sodium 137, potassium 4.6, chloride 100, bicarb 25, BUN of 45, creatinine 6 .2, glucose 99, calcium 8.7, total bilirubin 0.9, direct bilirubin 0.5, AST of 55, ALT of 46, alkalin e phosphatase 102, total protein 7.4, albumin 3.3, lipase 197. UA: Trace ketones, 3+ blood, trace leukocyte esterase, 3+ protein. Serologies: Hepatitis B surface antibody is reactive indicative of vaccination with negative hepatiti s B core, hepatitis B surface antigen. Hepatitis C was negative as well. CT abdomen and pelvis revealed diffuse bladder wall thickening may be secondary to incomplete distent ion. Findings suggestive of mild duodenitis with hepatomegaly with small amount of free fluid in the abdomen and pelvis. Cardiomegaly with small pericardial effusion. Impression And Plan: 1.Duodenitis seen on CT scan that was mild, improved on PPI therapy. Patient should continue PPI al so. 2.Left lower quadrant pain, relieved with treatment of constipation. The patient says 90% of his pa in has now gone with Milk of magnesia and 2 tap water enemas with increased defecation. 3.History of diabetes, hypertension, end-stage renal disease on hemodialysis, and other as per above . The patient also reports no prior colonoscopy or colon cancer screening. Recommendation: 1.Continue PPI therapy. 2.Continue MiraLAX. 3.Fiber supplements and Colace. 4.Consider screening colonoscopy as outpatient after cardiac clearance. ISIS/NESSA Voice ID: [id number] Report ID: [id number]
== END 2018-12-06 13:16 | disposition home or self-care (01) ==
LOC: ER 23:40 → ERHOLD 12-04 03:57 → 4TH 12-04 04:26
PROVIDERS: ADMIT Internal Medicine; ATTEND Internal Medicine
DX: K29.80 Duodenitis without bleeding (principal); K59.00 Constipation, unspecified; K52.9 Noninfective gastroenteritis and colitis, unspecified; K21.9 Gastro-esophageal reflux disease without esophagitis; E87.5 Hyperkalemia; E11.22 Type 2 diabetes mellitus with diabetic chronic kidney disease; I13.2 Hypertensive heart and chronic kidney disease with heart failure and with stage 5 chronic kidney disease, or end stage renal disease; N18.6 End stage renal disease; D63.1 Anemia in chronic kidney disease; I50.9 Heart failure, unspecified; E87.2 Acidosis; I25.10 Atherosclerotic heart disease of native coronary artery without angina pectoris; M62.81 Muscle weakness (generalized); E78.5 Hyperlipidemia, unspecified; K29.70 Gastritis, unspecified, without bleeding; I31.3 Pericardial effusion (noninflammatory); M54.9 Dorsalgia, unspecified; G89.29 Other chronic pain; S80.212A Abrasion, left knee, initial encounter; W19.XXXA Unspecified fall, initial encounter; R16.0 Hepatomegaly, not elsewhere classified; Z79.82 Long term (current) use of aspirin; Z79.02 Long term (current) use of antithrombotics/antiplatelets; Z79.4 Long term (current) use of insulin; Z79.891 Long term (current) use of opiate analgesic; Z79.899 Other long term (current) drug therapy; Z99.2 Dependence on renal dialysis; Z90.49 Acquired absence of other specified parts of digestive tract
CPT/HCPCS: 36415; 74176; 80048; 80076; 81003; 82962; 83690; 85025; 86704; 86706; 86803; 87070; 87077; 87186; 87205; 87340; 90935; 96365; 96375; 99285; C9113; G0257; G0378; J1170; J1644; J2405; J2543; J2550; J3010; Q4081

== ENCOUNTER 2018-12-23 21:43 | Emergency (ER) | payer BC, OTHER ==
--- OUTSIDE RECORDS SUMMARY | 2018-12-23 21:46 | XMS REPORT | Clinical Summary ---
:1965 Author Organization [facility] Address [address] [place] [address] Care Team Providers Name Role Phone Bala [...] Not on file Implants Implanted Type Area Financial Aid Coordinator Device Shelf Model / Identifier Expiration Serial / Lot Date Cath Peritoneal Dyls 57cm 2cuf [id number] - Sn/A Catheter N/A: COVIDIEN: SHAZIA 02/17/2021 [id number] / Implanted: Qty: 1 on 06/14/2017 by Abdiel Ivory MD Dialysis Abdomen L N/A / Chcf [id number] Results Not on fileafter 12/22/2017 Insurance Payer Benefit Plan / Subscriber ID Type Phone Address Group BLUE [employer]OSS/[employer]UE [employer] OS xxxxxxxxxxxx PPO [phone] [address] [employer] [place] [address] MEDICARE MEDICARE A B xxxxxxxxxx Medicare Advance Directives For more information, please contact:[address] [phone] Code Status Date Activated Date Inactivated Comments Full Code 06/08/2017 11:37 PM 06/15/2017 8:31 PM This code status was determined by: Patient
--- OUTSIDE RECORDS SUMMARY | 2018-12-23 21:46 | XMS REPORT | Clinical Summary ---
:1965 Author Organization [facility] Address [address] [place] [address] Care Team Providers Name Role Phone Garo [...] Hypertension 02/24/2017 Intractable vomiting with nausea 02/24/2017 [id number] kidney injury 02/24/2017 Diabetes mellitus 02/15/2017 Encounters Date Type Specialty Care Team Description 05/25/2018 Anesthesia Event Plastic Surgery Raz Brown 05/25/2018 Surgery Plastic Surgery Daquan Mary AND ARIS Arrignton MD INDICATED PROCEDURES, RIGHT EYE 05/25/2018 Hospital Encounter Plastic Surgery Daquan Mary MD after 12/22/2017 Immunizations Name Dates Previously Given Next Due [...] Taken Blood Pressure 136/61 05/25/2018 2:05 PM [facility] Pulse 58 05/25/2018 2:05 PM [facility] Temperature 37.2 C (98.9 F) 05/25/2018 2:05 PM [facility] Respiratory Rate 12 05/25/2018 2:05 PM [facility] Oxygen Saturation 96% 05/25/2018 2:05 PM [facility] Inhaled Oxygen Concentration - - Weight 97.2 kg (214 lb 3 oz) 05/25/2018 11:43 AM [facility] Height 190.5 cm (6' 3") 05/25/2018 11:43 AM [facility] Body Mass Index 26.77 05/25/2018 11:43 AM [facility] Plan of Treatment Health Maintenance Due Date Last Done Comments DIABETIC RETINAL EYE EXAM 1965 DIABETIC FOOT EXAM 1974 COLONOSCOPY SCREENING 2014 SHINGLES VACCINES (#1) 2014 INFLUENZA VACCINE 01/11/2019 02/11/2017 Procedures Procedure Name Priority Date/Time Associated Diagnosis Comments VITRECTOMY 05/25/2018 1:00 PM [facility] Vitreous hemorrhage of right eye (HCC) Special Needs REQ 1300 START POC PANEL 4 Routine 05/25/2018 12:09 PM [facility] after 12/22/2017 Results POC panel 4 (05/25/2018 12:09 PM [facility]AN[facility]) POC sodium 137 135 - 148 [facility] mmol/L [facility] POC potassium 4.3 3.5 - 5.0 [facility] mmol/L [facility] POC hematocrit 34 (L) 41 - 51 % [facility] Comment: HOSPITAL Meter ID: [id number] Mending Carrier: Abisai Girard POC glucose 107 (H) 65 - 99 mg/dL [facility] Specimen Performing Organization Address City/State/Zipcode Phone Number [facility] DEPARTMENT OF PATHOLOGY AND [address] [place] [address] GENOMIC MEDICINE [facility] [address] [place] [phone] after 12/22/2017 Insurance Payer Benefit Plan / Subscriber ID Effective Dates Phone Address Type Group BCBS [employer] xxxxxxxxxxxx 2017-Present PPO MEDICARE MEDICARE PART A xxxxxxxxxx 2016-Present [place] Medicare [place] B Advance Directives Patient has advance care planning documents on file. For more information, please contact:Naren Castro[address] [place] [address]
--- OUTSIDE RECORDS SUMMARY | 2018-12-23 21:48 | XMS REPORT | Continuity of Care Document ---
:1965 Author Organization [facility] Care Team Providers Name Role Phone [facility] Unavailable Unavailable Problems Problem Status Onset Classification Date Comments Source Date Reported Hypervolemia Active 05/01/20 Finding 12/06/[address] [facility] [place] Abdominal pain Active 03/23/20 Finding 12/06/[address] [facility] [place] Diabetes mellitus Active 03/14/20 Finding 12/06/[address] [facility] with chronic [facility] kidney disease [place] Anemia due to Active 03/14/20 Finding 12/06/[address] [facility] chronic kidney [facility] disease [place] Chronic back pain Active 03/14/20 Finding 12/06/[address] [facility] [place] Diabetic Active 03/14/20 Finding 12/06/[address] [facility] gastroparesis [facility] [place] Nausea & vomiting Active 03/03/20 Finding 12/06/[address] [facility] [place] Intractable Active 01/26/20 Finding 12/06/[address] [facility] [address] vomiting 18 [facility] [place] ESRD Active 01/26/20 Finding 12/06/[address] [facility] [place] CHF Active 06/07/20 Finding 12/06/[address] [facility] [place] Gastroparesis Active 05/30/20 Finding 12/06/[address] [facility] [place] Intractable Active 05/30/20 Finding 06/05/[address] [facility] [address] vomiting with 17 [facility] nausea [place] Anemia Active 05/11/20 Finding 12/06/[address] [facility] [place] Chronic renal Active 05/11/20 Finding 12/06/[address] [facility] disease [facility] [place] Pulmonary edema Active 05/11/20 Finding 12/06/[address] [facility] [place] GERD Active 05/11/20 Finding 12/06/[address] [facility] [place] Pleurisy with Active 05/11/20 Finding 12/06/[address] [facility] [address] effusion [facility] [place] CAD Active 02/25/20 Finding 12/06/[address] [facility] [place] Hyperlipidemia Active 02/25/20 Finding 12/06/[address] [facility] [place] Intractable Active 02/25/20 Finding 12/06/[address] [facility] [address] nausea and 17 [facility] [place] [id number] Active 02/25/20 Finding 12/06/[address] [facility] [address] kidney injury 17 [facility] [place] HTN Active 02/25/20 Finding 12/06/[address] [facility] [place] Obesity Active 02/25/20 Finding 12/06/[address] [facility] [place] Diabetes mellitus Active 02/16/20 Finding 12/06/[address] [facility] [place] Chest pain Active 08/28/19 Finding 12/06/[address] [facility] [place] Hyperglycemia Active Finding 12/06/[address] [facility] [address] [facility] [place] Uncontrolled Active Finding 12/06/[address] [facility] [address] diabetes mellitus [facility] [place] Renal Active Finding 12/06/[address] [facility] [address] insufficiency [facility] [place] Vomiting Active Finding 12/06/[address] [facility] [address] [facility] [place] Uncontrolled Active Finding 06/05/[address] [facility] [address] diabetes mellitus [facility] [place] Medications Medication Details Route Status Patient Ordering Order Source Instructions Provider Date Levofloxacin DAILY ORAL Active Chavarria [facility] [place] Metronidazole THREE TIMES A ORAL Active Chavarria [facility] 2018 [facility] [place] Pantoprazole DAILY ORAL Active Chavarria [facility] 2018 [facility] [place] Amitriptyline AT BEDTIME ORAL Active [facility] St[facility] 2018 [facility] [place] Ferric Citrate SEE COMMENT ORAL Active [facility] St[facility] 2018 [facility] [place] Metolazone SEE COMMENT ORAL Active [facility] St[facility] 2018 [facility] [place] Hydrocodone THREE TIMES A ORAL Active St. 7.5/Apap 325 DAY 2018 [facility] [place] Lactulose DAILY PRN For ORAL Active [facility] St[facility] Constipation 2019 [facility] [place] Sennosides/Docus TWICE DAILY ORAL Active St. ate Sodium 2019 [facility] [place] Codeine/Apap EVERY 4 HOURS ORAL Active [facility] NEEDED PRN 2018 [facility] [place] Sevelamer THREE TIMES A ORAL Active St[facility] Carbonate DAY 2018 [facility] [place] Ondansetron Hcl Q6H PRN For ORAL Active [facility] Nausea 2018 [facility] [place] Promethazine Hcl Q8H PRN For ORAL Active St[facility] Nausea 2018 [facility] [place] Zolpidem AT BEDTIME ORAL Active St[facility] Tartrate 2018 [facility] [place] Hydralazine TWICE DAILY ORAL Active St[facility] 2018 [facility] [place] Aspirin DAILY ORAL Active St[facility] 2018 [facility] [place] Atorvastatin DAILY ORAL Active [facility] Calcium 2018 [facility] [place] Clonidine Hcl THREE TIMES A ORAL Active [facility] DAY 2018 [facility] [place] Famotidine AT BEDTIME ORAL Active [facility] 2018 [facility] [place] Furosemide TWICE DAILY ORAL Active [facility] 2018 [facility] [place] Metoprolol TWICE DAILY ORAL Active St[facility] Tartrate 2018 [facility] [place] Nitroglycerin SEE COMMENT SUBLINGUAL Active St. PRN For Chest 2018 [facility] [place] Nitroglycerin NEEDED PRN TRANSDERM Active St[facility] Patch For Chest [facility] [place] Amlodipine DAILY ORAL Active [facility] 2018 [facility] [place] Clopidogrel DAILY ORAL Active [facility] Bisulfate 2018 [facility] [place] Ranolazine DAILY ORAL Active St[facility] 2018 [facility] [place] Travoprost AT BEDTIME EACH EYE Active St. (Benzalkonium) 2018 [facility] [place] Sertraline DAILY ORAL Active St[facility] 2018 [facility] [place] Clonidine Hcl THREE TIMES A ORAL Active [facility]av[facility] St[facility] DAY 2018 [facility] [place] Metoclopramide THREE TIMES A Active Nunez [facility] St[facility] Hcl DAY 2017 [facility] [place] Ondansetron Hcl Q6H PRN For Active Nunez [facility] Vomiting 2017 [facility] [place] Furosemide TWICE DAILY Active Nunez [facility] 2017 [facility] [place] Zolpidem AT BEDTIME Active Alroumoh [facility] Tartrate 2017 [facility] [place] Aspirin DAILY Active St[facility] 2017 [facility] [place] Nitroglycerin DAILY Active St[facility] NEEDED PRN 2017 [facility] Chest [place] Pain Promethazine Hcl EVERY [address] NEEDED PRN 2017 [facility] For Nausea [place] Pantoprazole DAILY Active St[facility] 2017 [facility] [place] Ranolazine TWICE DAILY Active [facility] 2017 [facility] [place] Insulin Lispro DAILY Active [facility] 2017 [facility] [place] Furosemide TWICE DAILY ORAL Active [facility] [place] Furosemide TWICE DAILY ORAL Active [facility] AT 9am & 5pm [facility] [place] Hydralazine TWICE DAILY [facility] [place] Atorvastatin DAILY Active [facility] Calcium 2017 [facility] [place] Metoprolol TWICE DAILY Active [facility] Tartrate [facility] [place] Nitroglycerin DAILY Active [facility] Patch NEEDED PRN 2017 [facility] [place] Pain Amlodipine DAILY Active [facility] [place] Clopidogrel DAILY Active [facility] Bisulfate [facility] [place] Furosemide TWICE DAILY ORAL Active Strange [facility] [place] Hydralazine THREE TIMES A ORAL Active Alexandr [facility] DAY [facility] [place] Pantoprazole DAILY ORAL Active Alexandr [facility] St[facility] Sodium 2017 [facility] [place] Metoprolol TWICE DAILY ORAL Active Alexandr [facility] St[facility] Tartrate 2017 [facility] [place] Clopidogrel DAILY ORAL Active Alexandr 09/06/ [facility] Bisulfate [facility] [place] Atorvastatin AT BEDTIME ORAL Active Divinsky 09/14/ [facility] Calcium 2017 [facility] [place] Amlodipine DAILY ORAL Active Divinsky 09/14/ [facility] [place] Clopidogrel DAILY ORAL Active Divinsky 09/14/ [facility] Bisulfate [facility] [place] Metoprolol TWICE DAILY ORAL Active Divinsky 09/14/ [facility] Tartrate 2017 [facility] [place] Sertraline DAILY ORAL Active Divinsky 09/14/ [facility] [place] Tramadol Hcl EVERY 6 HOURS ORAL Active Divinsky 09/14/ [facility] PRN For Pain 2017 [facility] [place] Ranolazine DAILY ORAL Active Divinsky 09/14/ [facility] [place] Sub-Q Insulin DAILY MISCELL Active St. Device, 40 Unit 2017 [facility] - [place] Cefdinir TWICE DAILY ORAL Active Cameron 08/27/ [facility] [place] Methylprednisolo DAILY ORAL Active Cameron 08/27/ [facility] 2016 [facility] [place] Guaifen TWICE DAILY ORAL Active Cameron 08/27/ [facility] W/Codeine Syrup PRN For Cough 2016 [facility] [place] Amlodipine DAILY ORAL Active [facility] Besylate 2016 [facility] [place] Clopidogrel DAILY ORAL Active [facility] Bisulfate 2016 [facility] [place] Fenofibrate DAILY ORAL Active St[facility] 2016 [facility] [place] Insulin Aspart THREE TIMES SUB-Q Active St[facility] DAILY 2016 [facility] NEEDED PRN [place] For hyperglycemia Liraglutide DAILY SUB-Q Active [facility] [place] Ranolazine DAILY ORAL Active St[facility] 2016 [facility] [place] Insulin Detemir AT BEDTIME SUB-Q Active St[facility] 2016 [facility] [place] Metoprolol DAILY ORAL Active St[facility] Tartrate 2016 [facility] [place] Clopidogrel DAILY Active St. Bisulfate 2016 [facility] - [place] Aspirin Tab DAILY ORAL Active Prezas [facility] [place] Metoprolol EVERY TWELVE ORAL Active Prezas 02/14/ [facility] St. Tartrate HOURS 2014 [facility] [place] Insulin Detemir AT BEDTIME SUB-Q Active Prezas 02/14/ [facility] St[facility] 2014 [facility] [place] Insulin Detemir AT BEDTIME SUB-Q Active Prezas 02/04/ [facility] St[facility] 2014 [facility] [place] Atorvastatin DAILY ORAL Active [facility] St[facility] Calcium 2014 [facility] [place] Insulin Detemir AT BEDTIME SUB-Q Active 02/02/ [facility] St[facility] 2014 [facility] [place] Lisinopril DAILY ORAL Active 02/02/ [facility] St[facility] 2014 [facility] [place] Saxagliptin DAILY ORAL Active 02/02/ [facility] St[facility] Hcl/Metformin 2014 [facility] Hcl [place] Saxagliptin DAILY Active 02/02/ [facility] St[facility] Hcl/Metformin 2014 [facility] Hcl [place] Allergies, Adverse Reactions, Alerts Substance Category Reaction Severity Reaction Status Date Comments Source type Reported Sulfa Hives/Aiden Allergy to Active [facility] (Sulfonamid h Substance 9 [facility] [place] Antibiotics ) Immunizations Immunization Date Given Site Status Last Comments Source Updated Pneumovax 02/18/2017 completed [facility] [place] Results Order Name Results Value Reference Date Interpretation Comments Source Range Laboratory Bedside 114 65 - 120 12/05 [facility]. Studies Glucose [facility] [place] Laboratory Segmented 68 40 - 80 12/05 [facility]. Studies Neutrophils [facility] [place] Laboratory Monocytes 21 0 - 10 12/05 [facility]. [facility] [place] [facility] Lymphocytes 9 15 - 42 12/05 [facility]. [facility] [place] Laboratory Eosinophils 2 0 - 3 12/05 [facility]. [facility] [place] Laboratory Blood Blood 12/05 [facility]. Studies Morphology Morphology [facility] - Comment Comment [place] [facility] Total 0.9 0.2 - 1.0 12/05 [facility]. Studies Bilirubin [facility] [place] Laboratory Sodium Level 137 136 - 145 12/05 [facility]. [facility] [place] [facility] Serum Total 7.4 6.4 - 8.2 12/05 [facility]. Studies Protein [facility] [place] Laboratory Potassium 4.6 3.5 - 5.1 12/05 [facility] Studies Level /2018 [facility] [place] Laboratory Lipase 197 73 - 393 12/05 [facility]. Studies /2018 [facility] [place] Laboratory Glucose Level 99 74 - 106 12/05 [facility]. Studies /2018 [facility] [place] Laboratory Globulin 4.1 2.3 - 3.5 12/05 [facility]. Studies /2018 [facility] [place] Laboratory Estimat 10 90 12/05 [facility]. Studies Glomerular /2018 [facility] Filtration [place] Rate Laboratory Direct 0.5 0 - 0.2 12/05 [facility] Studies Bilirubin /2018 [facility] [place] Laboratory Creatinine 6.18 0.55 - 1.3 12/05 [facility]. Studies /2018 [facility] [place] Laboratory Chloride 100 98 - 107 12/05 [facility] Studies Level /2018 [facility] [place] Laboratory Carbon 25 21 - 32 12/05 [facility] Studies Dioxide Level /2018 [facility] [place] Laboratory Calcium Level 8.7 8.5 - 10.1 12/05 [facility]. Studies /2018 [facility] [place] Laboratory Blood Urea 45 7 - 18 12/05 [facility] Studies Nitrogen /2018 [facility] [place] Laboratory Aspartate 55 15 - 37 12/05 [facility] Studies Amino Transf /2018 [facility] (AST/SGOT) [place] Laboratory Alkaline 102 45 - 117 12/05 [facility] Studies Phosphatase /2018 [facility] [place] Laboratory Albumin/Globu 0.8 1.1 - 1.8 12/05 [facility]. Studies mateo Ratio /2018 [facility] [place] Laboratory Albumin 3.3 3.4 - 5.0 12/05 [facility]. Studies /2018 [facility] [place] Laboratory Alanine 36 12 - 78 12/05 [facility] Studies Aminotransfer /2018 [facility] ase [place] (ALT/SGPT) Laboratory White Blood 4.4 4.3 - 10.9 12/05 [facility] Studies Count /2018 [facility] [place] Laboratory Red Cell 17.9 12.1 - 12/05 [facility] Studies Distribution 15.2 [facility] Width [place] Laboratory Red Blood 3.19 4.33 - 12/05 [facility] Studies Count 5.43 /2018 [facility] [place] Laboratory Platelet 182 152 - 406 12/[address] Studies Count [facility] [place] Laboratory Neutrophils % 61.9 41.7 - 12/05 [facility]. Studies 73.7 /2018 [facility] [place] Laboratory Monocytes % 16.7 3.3 - 12.3 12/05 [facility]. Studies /2018 [facility] [place] Laboratory Mean Platelet 8.2 7.6 - 11.3 12/05 [facility]. Studies Volume /2018 [facility] [place] Laboratory Mean 97.0 80 - 100 12/05 [facility]. Studies Corpuscular /2018 [facility] Volume [place] Laboratory Mean 32.6 32.0 - 12/05 [facility]. Studies Corpuscular 36.0 [facility] Hemoglobin [place] Concent Laboratory Mean 31.6 27.0 - 12/05 [facility]. Studies Corpuscular 35.0 [facility] Hemoglobin [place] Laboratory Lymphocytes % 14.4 15.3 - 12/05 [facility]. Studies 44.8 [facility] [place] Laboratory Hemoglobin 10.1 13.6 - 12/05 [facility]. Studies 17.9 [facility] [place] Laboratory Hematocrit 31.0 39.6 - 12/05 [facility]. Studies 49.0 [facility] [place] Laboratory Eosinophils % 5.6 0 - 4.4 12/05 [facility]. Studies [facility] [place] Laboratory Basophils % 1.4 0 - 1.3 12/05 [facility]. Studies [facility] [place] Laboratory Absolute 2.7 1.8 - 8.0 12/05 [facility]. Studies Neutrophil [facility] [place] Laboratory Absolute 0.7 0.1 - 1.3 12/05 [facility]. Studies Monocytes [facility] (CBC) [place] Laboratory Absolute 0.6 0.7 - 4.9 12/05 [facility]. Studies Lymphocytes [facility] (CBC) [place] Laboratory Absolute 0.2 0 - 0.5 12/05 [facility]. Studies Eosinophils [facility] (CBC) [place] Laboratory Absolute 0.1 0 - 0.5 12/05 [facility]. Studies Basophils [facility] (CBC) [place] Laboratory Urine pH 6.0 12/[address] [facility] [address] Studies [facility] [place] Laboratory Urine Total Urine Total 12/[address] [facility] [address] Studies Protein Protein /2018 [facility] [place] Laboratory Urine 1.020 12/[address] [facility] [address] Studies Specific /2018 [facility] [place] Laboratory Urine Nitrite Urine 12/[address] [facility] [address] Studies Nitrite [facility] [place] Laboratory Urine Urine 12/04 [facility]. Studies Leukocyte Leukocyte /2018 [facility] Esterase Esterase [place] Laboratory Urine Ketones Urine 12/[address] [facility] [address] Studies Ketones [facility] [place] Laboratory Urine Glucose Urine 12/[address] [facility] [address] Studies Glucose [facility] [place] Laboratory Urine Blood Urine Blood 12/04 [facility]. Studies /2018 [facility] [place] Laboratory Prothrombin 13.7 9.5 - 12.5 10/[address] [facility] [address] Studies Time /2018 [facility] [place] Laboratory INR 1.17 10/26 [facility]. Studies International [facility] Normalized [place] Ratio Laboratory Activated 34.6 24.3 - 10/26 [facility]. Studies Partial 36.9 [facility] Thromboplast [place] Time Laboratory Hepatitis C Hepatitis C 10/[address] [facility] [address] Studies Antibody Antibody /2018 [facility] [place] Laboratory Hepatitis C 0.07 10/16 [facility]. Studies Ab /2018 [facility] Signal/Cutoff [place] Ratio Laboratory Hepatitis B Hepatitis B 10/16 [facility]. Studies Surface Surface /2018 [facility] Antigen Antigen [place] Laboratory Hepatitis B Hepatitis B 10/[address] [facility] [address] Studies Surface Surface /2018 [facility] Antibody Antibody [place] Laboratory Hepatitis B Hepatitis B 10/16 [facility]. Studies Core Total Core Total [facility] - Antibody Antibody [place] Laboratory Troponin I 2.90 0.0 - 10/[address] [facility] [address] Studies 0.045 [facility] [place] Laboratory Urine WBC <5 10/[address] [facility] [address] Studies /2018 [facility] [place] Laboratory Urine <5 10/16 [facility]. Studies Squamous /2018 [facility] Epithelial [place] Cells Laboratory Urine RBC Urine RBC 10/[address] [facility] [address] Studies /2018 [facility] [place] Laboratory Urine Hyaline Urine 10/16 [facility]. Studies Casts Hyaline /2018 [facility] Casts [place] Laboratory Urine Fine Urine Fine 10/16 [facility]. Studies Granular Granular /2018 [facility] Casts Casts [place] Laboratory Urine Culture Urine 10/[address] Studies Reflexed Culture /2018 [facility] Reflexed [place] Laboratory Urine <20 10/[address] [facility] [address] Studies Bacteria /2018 [facility] [place] Laboratory Urine Urine 10/16 [facility]. Studies Amorphous Amorphous [facility] Sediment Sediment [place] Laboratory Urine 0.2 10/16 [facility]. Studies Urobilinogen /2018 [facility] [place] Laboratory Urine Color Urine Color 10/[address] [facility] [address] Studies /2018 [facility] [place] Laboratory Urine Urine 10/16 [facility]. Studies Bilirubin Bilirubin /2018 [facility] [place] Laboratory Urine Urine 10/16 [facility]. Studies Appearance Appearance [facility] [place] Laboratory AF-[id number]-Type [id number] 10/[address] [facility] [address] Studies Natriuretic [facility] Peptide [place] Laboratory Rapid 0.07 0.0 - 10/16 [facility]. Studies Troponin I 0.045 [facility] [place] Laboratory Magnesium 2.4 1.8 - 2.4 09/03 [facility]. Studies Level /2018 [facility] [place] Laboratory Sodium Level 138 135 - 145 06/[address] [facility] [address] Studies /2016 [facility] [place] Laboratory Potassium 5.1 3.6 - 5.0 06/05 [facility]. Studies Level /2016 [facility] [place] Laboratory Phosphorus 7.4 2.5 - 4.3 06/05 [facility]. Studies Level /2016 [facility] [place] Laboratory Glucose Level 167 65 - 120 06/05 [facility]. Studies /2016 [facility] [place] Laboratory Estimat 10 90 06/05 [facility]. Studies Glomerular [facility] Filtration [place] Rate Laboratory Creatinine 6.17 0.61 - 06/[address] [facility] [address] Studies 1. [facility] [place] Laboratory Chloride 104 101 - 111 06/05 [facility]. Studies Level /2016 [facility] [place] Laboratory Carbon 23 21 - 31 06/05 [facility]. Studies Dioxide Level /2016 [facility] [place] Laboratory Calcium Level 9.1 8.5 - 10.5 06/05 [facility]. Studies /2016 [facility] [place] Laboratory Blood Urea 87 6 - 20 06/05 [facility]. Studies Nitrogen /2016 [facility] [place] Laboratory Albumin 3.4 3.2 - 5.5 06/[address] [facility] [address] Studies /2016 [facility] [place] Laboratory Bedside 155 65 - 120 06/03 [facility] Studies Glucose /2016 [facility] [place] Laboratory Urine Urine 06/01 [facility] Studies Immunoelectro Immunoelect /2016 [facility] - phoresis 24 rophoresis [place] Hr 24 Hr Laboratory Anti-Double 2 06/01 [facility]. Studies Strand DNA /2016 [facility] Antibody [place] Laboratory Anti-Proteina <1.0 06/01 [facility]. Studies se 3 (c-ANCA) /2016 [facility] [place] Laboratory Anti-Myeloper <1.0 06/01 [facility] Studies oxidase Ab /2016 [facility] (p-ANCA) [place] Laboratory Complement C4 31 06/01 [facility]. Studies /2016 [facility] [place] Laboratory Complement C3 127 06/01 [facility]. Studies /2016 [facility] [place] Laboratory Thyroid 2.92 0.34 - 06/01 [facility] Studies Stimulating 5.60 [facility] Hormone (TSH) [place] Laboratory Anti-Nuclear Anti-Nuclea 05/30 [facility] Studies Antibody r Antibody /2016 [facility] Titer Titer [place] Laboratory Anti-Nuclear Anti-Nuclea 05/30 [facility]. Studies Antibody r Antibody /2016 [facility] Pattern Pattern [place] Laboratory Anti-Nuclear Anti-Nuclea 05/30 [facility]. Studies Antibody r Antibody /2016 [facility] Screen Screen [place] Laboratory Anti-Nuclear Anti-Nuclea 05/30 [facility] Studies Antibody r Antibody /2016 [facility] Pattern 2 Pattern 2 [place] Laboratory Hepatitis C Hepatitis C 05/30 [facility]. Studies Antibody Antibody /2016 [facility] [place] Laboratory Hepatitis C 0.03 05/30 [facility]. Studies Ab /2016 [facility] Signal/Cutoff [place] Ratio Laboratory Hepatitis B Hepatitis B 05/30 [facility] Studies Surface Surface /2016 [facility] Antigen Antigen [place] Laboratory Hepatitis B Hepatitis B 05/30 [facility] Studies Surface Ag Surface Ag /2016 [facility] - Confirmation Confirmatio [place] n Laboratory Hepatitis B Hepatitis B 05/30 [facility] Studies Core IgM Core IgM /2016 [facility] Antibody Antibody [place] Laboratory Hepatitis A Hepatitis A 05/30 [facility] Studies IgM Antibody IgM /2016 [facility] Antibody [place] Laboratory HIV-1 RNA, HIV-1 RNA, 05/30 [facility] Studies Qualitat Qualitat /2017 [facility] - (TMA) Comment (TMA) [place] Comment Laboratory HIV (1&2) Ag HIV (1&2) 05/30 [facility] Studies and Ab, 4th Ag and Ab, /2016 [facility] - Generation 4th [place] Generation Laboratory HIV (1&2) Ab HIV (1&2) 05/30 [facility]. Studies Differential Ab /2016 [facility] - Comment Differentia [place] l Comment Laboratory Creatine 162 22 - 269 05/30 [facility]. Studies Kinase /2016 [facility] [place] Laboratory Vitamin B12 173 180 - 914 05/30 [facility]. Studies Level /2016 [facility] [place] [facility] Total 0.4 0.3 - 1.2 05/30 [facility]. Studies Bilirubin /2016 [facility] [place] [facility] Serum Total 6.5 6.0 - 8.3 05/30 [facility]. Studies Protein /2016 [facility] [place] [facility] Globulin 3.1 2.3 - 3.5 05/30 [facility]. Studies /2016 [facility] [place] [facility] Ferritin 337.4 23.9 - 05/30 [facility]. Studies 336.2 /2016 [facility] [place] [facility] Aspartate 12 10 - 42 05/30 [facility]. Studies Amino Transf /2016 [employer] - (AST/SGOT) [place] [facility] Alkaline 54 42 - 121 05/30 [facility]. Studies Phosphatase /2016 [facility] [place] [facility] Albumin/Globu 1.1 1.1 - 1.8 05/30 [facility]. Studies mateo Ratio /2016 [facility] [place] [facility] Alanine 10 10 - 60 05/30 [facility]. Studies Aminotransfer /2016 [facility] ase [place] (ALT/SGPT) Laboratory White Blood 7.9 4.3 - 10.9 05/30 [facility]. Studies Count /2016 [facility] [place] [facility] Red Cell 15.2 12.1 - 05/30 [facility]. Studies Distribution 15.2 /2016 [facility] Width [place] [facility] Red Blood 2.75 4.33 - 05/30 [facility]. Studies Count 5.43 /2016 [facility] [place] [facility] Platelet 314 152 - 406 05/30 [facility]. Studies Count /2016 [facility] [place] [facility] Neutrophils % 56.6 41.7 - 05/[address] [facility] [address] Studies 73.7 /2016 [facility] [place] [facility] Monocytes % 12.0 3.3 - 12.3 05/[address] [facility] [address] Studies /2016 [facility] [place] [facility] Mean Platelet 7.1 7.6 - 11.3 05/[address] [facility] [address] Studies Volume /2016 [facility] [place] [facility] Mean 85.4 80 - 100 05/[address] [facility] [address] Studies Corpuscular /2016 [facility] Volume [place] [facility] Mean 34.1 32.0 - 05/[address] [facility] [address] Studies Corpuscular 36.0 /2016 [facility] Hemoglobin [place] [facility] Mean 29.1 27.0 - 05/[address] [facility] [address] Studies Corpuscular 35.0 /2016 [facility] Hemoglobin [place] [facility] Lymphocytes % 25.1 15.3 - 05/[address] [facility] [address] Studies 44.8 /2016 [facility] [place] [facility] Hemoglobin 8.0 13.6 - 05/[address] [facility] [address] Studies 17.9 /2016 [facility] [place] [facility] Hematocrit 23.5 39.6 - 05/[address] [facility] [address] Studies 49.0 /2016 [facility] [place] [facility] Eosinophils % 5.7 0 - 4.4 05/[address] [facility] [address] Studies [facility] [place] [facility] Basophils % 0.6 0 - 1.3 05/[address] [facility] [address] Studies /2016 [facility] [place] [facility] Absolute 4.5 1.8 - 8.0 05/[address] [facility] [address] Studies Neutrophil [facility] [place] [facility] Absolute 0.9 0.1 - 1.3 05/[address] [facility] [address] Studies Monocytes [facility] (CBC) [place] [facility] Absolute 2.0 0.7 - 4.9 05/[address] [facility] [address] Studies Lymphocytes [facility] (CBC) [place] [facility] Absolute 0.4 0 - 0.5 05/[address] [facility] [address] Studies Eosinophils [facility] (CBC) [place] [facility] Absolute 0.0 0 - 0.5 05/[address] [facility] [address] Studies Basophils [facility] (CBC) [place] [facility] Urine WBC <5 05/[address] [facility] [address] Studies [facility] [place] [facility] Urine <5 05/[address] [facility] [address] Studies Squamous [facility] Epithelial [place] Cells Laboratory Urine RBC Urine RBC 05/[address] [facility] [address] Studies [facility] [place] [facility] Urine Culture Urine 05/[address] [facility] [address] Studies Reflexed Culture [facility] Reflexed [place] [facility] Urine <20 05/29 [facility]. Studies Bacteria /2016 [facility] [place] [facility] Urine Urine 05/29 [facility]. Studies Amorphous Amorphous /2016 [facility] Sediment Sediment [place] [facility] Direct <0.1 0 - 0.2 05/29 [facility]. Studies Bilirubin /2016 [facility] [place] [facility] Amylase Level 70 28 - 100 05/[address] [facility] [address] Studies /2016 [facility] [place] [facility] Lipase 95 22 - 51 05/[address] [facility] [address] Studies /2016 [facility] [place] [facility] Hemoglobin 7.3 4 - 6.0 05/11 [facility]. Studies A1c /2016 [facility] [place] [facility] Triglycerides 118 35 - 160 05/11 [facility]. Studies Level /2016 [facility] [place] [facility] Magnesium 2.2 1.8 - 2.5 05/11 [facility]. Studies Level /2016 [facility] [place] [facility] LDL 81 05/11 [facility]. Studies Cholesterol, /2016 [facility] Calculated [place] [facility] HDL 26 27 - 67 05/11 [facility]. Studies Cholesterol /2016 [facility] [place] [facility] Cholesterol/H 5.04 05/11 [facility]. Studies DL Ratio /2016 [facility] [place] [facility] Cholesterol 131 05/11 [facility]. Studies Level /2016 [facility] [place] [facility] Troponin I <0.03 05/11 [facility]. Studies /2016 [facility] [place] [facility] Glomerular <1.0 05/10 [facility]. Studies Basement /2016 [facility] Membrane IgG [place] Ab [facility] Urine pH 6.0 05/[address] [facility] [address] Studies /2016 [facility] [place] [facility] Urine Total Urine Total 05/10 [facility]. Studies Protein Protein [facility] [place] [facility] Urine 1.020 05/10 [facility]. Studies Specific /2016 [facility] [place] [facility] Urine Nitrite Urine 05/10 [facility]. Studies Nitrite [facility] [place] [facility] Urine Urine 05/10 [facility]. Studies Leukocyte Leukocyte [facility] Esterase Esterase [place] [facility] Urine Ketones Urine 05/10 [facility]. Studies Ketones [facility] [place] [facility] Urine Glucose Urine 05/10 [facility]. Studies Glucose /2016 [facility] [place] [facility] Urine Blood Urine Blood 05/10 [facility]. Studies /2016 [facility] [place] [facility] Creatine 11.3 0.3 - 4.0 05/[address] [facility] [address] Studies Kinase MB [facility] [place] [facility] B-Type 594 05/[address] [facility] [address] Studies Natriuretic [facility] Peptide [place] [facility] Rapid <0.03 05/[address] [facility] [address] Studies Troponin I [facility] [place] [facility] Prothrombin 11.3 9.5 - 12.5 05/[address] [facility] [address] Studies Time [facility] [place] [facility] INR 0.96 05/[address] [facility] [address] Studies International /2016 [facility] Normalized [place] Ratio Laboratory Activated 28.5 24.3 - 05/[address] [facility] [address] Studies Partial 36.9 [facility] Thromboplast [place] Time Pathology Reports No Data Provided for This Section Diagnostic Reports No Data Provided for This Section Consultation Notes No Data Provided for This Section Discharge Summaries No Data Provided for This Section History and Physicals No Data Provided for This Section Vital Signs Vital Sign Value Date Comments Source Temperature Oral (F) 97.8 F 12/06/[address] [facility] [address] [facility] [place] Heart Rate 70 12/06/[address] [facility] [address] [facility] [place] Respitory Rate 16 12/06/[address] [facility] [address] [facility] [place] Systolic (mm Hg) 159 12/06/[address] [facility] [address] [facility] [place] Diastolic (mm Hg) 71 12/06/2018 [facility] [place] [place] Height 75 12/05/2018 [facility] [place] [place] Weight 213 12/05/[address] [facility] [address] [place] - [place] Temperature Oral (F) 97.5 F 06/05/[address] [facility] [address] [facility] [place] Heart Rate 66 06/05/[address] [facility] [address] [facility] [place] Respitory Rate 18 06/05/[address] [facility] [place] Systolic (mm Hg) 131 06/05/[address] [facility] [address] [facility] [place] Diastolic (mm Hg) 62 06/05/[address] [facility] [address] [place] - [place] Height 75 06/05/[address] [facility] [address] [facility] [place] Weight 228 06/05/[address] [facility] [address] [place] [place] Encounters Location Location Encounter Encounter Reason Attending ADM DC Status Source Details Type Number For Provider Date Date Visit DARRON JordanTristan Registered [id number] 04/11 [facility] [place] [facility] [facility] [id number] 04/[address] [facility] [address] [facility] [place] [facility] [id number] 04/[address] [facility] [address] [facility] [place] [facility] [id number] 04[facility] [facility] [address] [facility] [place] [facility] [id number] 04/27 04/[address] [facility] [address] [facility] Surgical 73 /2016 [facility] [place] [facility] [place] [facility] [id number] 05/10 05/[address] [facility] [address] [facility] Inpatient 99 /2016 [facility] [place] [facility] Discharged [id number] 06/01 06/[address] [facility] [address] [facility] Inpatient 75 /2016 [facility] [place] [facility] Discharged [id number] 09/03 09/[address] [facility] [address] [facility] 33 [facility] [place] [facility] Departed [id number] 09/12 09/[address] [facility] [address] [facility] Emergency 37 [facility] [place] [facility] Discharged [id number] 10/16 10/[address] [facility] [address] [facility] In[facility] 97 [facility] [place] [facility] Departed [id number] 10/26 10/[address] [facility] [address] [facility] Surgical 48 [facility] [place] [facility] [place] [facility] [id number] 11/29 11/[address] [facility] [address] [facility] [place] [facility] Discharged [id number] 12/04 12/[address] [facility] [address] [facility] Inpatient 84 /2018 [facility] [place] [facility] Procedure Code Date Perfomer Comments Source Gram Stain [id number] 12/05/19 [facility] 19 - [place] Culture & [id number] 12/05/19 [facility] Sensitivity 19 - [place] Abdomen & Pelvis [id number] 12/05/19 [facility] Wo Contrast 19 - [place] Knee Left 3 View [id number] 11/30/19 [facility] 19 - [place] PLAIN RADIOGRAPHY [id number] 10/27/19 [facility] OF MULT COR ART 19 - [place] USING OTH CONTRAST MEASURE OF [id number] 10/27/19 [facility] CARDIAC SAMPL & 19 - [place] PRESSURE, L HEART, PERC APPROACH L HRT [id number] 10/27/19 [facility] ARTERY/VENTRICLE 19 - [place] ANGIO Chest Single View [id number] 10/17/19 [facility] 19 - [place] [id number] 10/17/19 [facility] 19 - [place] HEMODIALYSIS ONE [id number] 10/17/19 [facility] EVALUATION 19 - [place] Head Brain Wo [id number] 09/13/19 [facility] Cont 19 - [place] Chest Single View [id number] 09/04/19 [facility] 19 - [place] Chest Single View [id number] 06/03/20 [facility] 17 - [place] Chest Pa And Lat [id number] 06/02/20 [facility] (2 Views) 17 - [place] Abdomen & Pelvis [id number] 05/29/20 [facility] Wo Contrast 17 - [place] Chest Pa And Lat [id number] 05/11/20 [facility] (2 Views) 17 - [place] Abdomen & Pelvis [id number] 05/10/20 [facility] Wo Contrast 17 - [place] Chest Single View [id number] 05/10/20 [facility] 17 - [place] REMOVAL OF [id number] 04/27/20 [facility] INFUSION DEVICE 17 - [place] FROM UPPER VEIN, OPEN APPROACH REMOVAL TUNNELED [id number] 04/27/20 [facility] CV CATH 17 - [place] Assessment and Plan No Data Provided for This Section Plan of Care Plan of Care Date Source Instructions 12/06/2018 [facility] - [place] Gastritis, Adult, [id number] Abdominal Pain, Adult, [id number] Duodenitis Pantoprazole tablets Levofloxacin tablets Metronidazole tablets or capsules PROBLEM: (abdominal pain, gastritis, duodenitis) GOAL: Clear understanding of disease process INSTRUCTIONS: continue all prior home medications, take pantoprazole daily as prescribed for one month, take it with water 30minutes before breakfast. Take antibiotics for one week (levaquin and metronidazole). Pool ansari with Dr. Chavarria as per your scheduled appointment. Continue with hemodialysis per your regular scheduled times. IMMUNIZATION Influenza Vaccine Indicated: No Influenza Vaccine Given: Date Given: Pneumonia Vaccine Indicated: No Pneumonia Vaccine Given: Date Given: Instructions 12/06/[address] [facility] [place] Gastritis, Adult, [id number] Abdominal Pain, Adult, [id number] Duodenitis Pantoprazole tablets Levofloxacin tablets Metronidazole tablets or capsules PROBLEM: (abdominal pain, gastritis, duodenitis) GOAL: Clear understanding of disease process INSTRUCTIONS: continue all prior home medications, take pantoprazole daily as prescribed for one month, take it with water 30minutes before breakfast. Take antibiotics for one week (levaquin and metronidazole). Pool asnari with Dr. Chavarria as per your scheduled appointment. Continue with hemodialysis per your regular scheduled times. IMMUNIZATION Influenza Vaccine Indicated: No Influenza Vaccine Given: Date Given: Pneumonia Vaccine Indicated: No Pneumonia Vaccine Given: Date Given: Instructions 06/05/[address] [facility] [place] Peritoneal Dialysis Peritoneal Dialysis Diet Instructions 06/05/[address] [facility] [place] Peritoneal Dialysis Peritoneal Dialysis Diet Social History Social History Date Source Query Response Date Recorded Comment 12/06/[address] [facility] [place] Alcohol Use? No December 04, 2018 4:14am CD- Drugs? No December 04, 2018 4:14am Query Response Start Date Stop Date Smoking Status Never smoker Family History Value Date Source Query Response Instance Date Recorded Comment 12/06/[address] [facility] [place] Nurses notes TB. Father December 04, 2018 4:14am Medical History Heart disease Diabetes Mother December 04, 2018 4:14am Medical History Heart disease Cancer Other (see notes) Father December 04, 2018 4:14am Nurses notes TB. May 29, 2017 4:43pm Medical History Heart disease Cancer Other (see notes) October 06, 2015 1:47pm Query Response Instance Date Recorded Comment 06/05/[address] [facility] [facility] [place] Nurses [facility] TB. Father May 29, 2017 4:43pm Medical History Heart disease Diabetes Mother May 29, 2017 4:43pm Medical History Heart disease Cancer Other (see notes) Father May 29, 2017 4:43pm Nurses notes TB. 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
--- OUTSIDE RECORDS SUMMARY | 2018-12-23 21:48 | XMS REPORT ---
:1965 [facility] [address] [place] [address] [address]. [address] [place] [address] Care Team Providers Name Role Phone DWIGHT MCHUGH Unavailable Unavailable Problems This patient has no known problems. Allergies, Adverse Reactions, Alerts This patient has no known allergies or adverse reactions. Medications This patient has no known medications. Encounters Start End Encounter Admission Attending Care Care Encounter Date/Time Date/Time Type Type Clinicians Facility Department ID 2018-12-[address] [facility] [id number] 10:46:33 2018-12-[address] [facility] [id number] 19:45:00 2018-12-19 2018-12-[address] [facility] [id number] 16:05:00 16:05:00 2018-10-31 2018-10-[address] [facility] [id number] 10:40:00 10:40:00 Results Test Description Test Time Test Comments Text Results Atomic Results Result Comments POCT-GLUCOSE METER 2017-06-15 17:36:00 Test Item Value Reference Range Comments POC-GLUCOSE METER (BEAKER) (test 243 mg/dL 70-110 TESTED AT [facility] [address] [place] [address] amvk=2952) [facility] [address] BASIC METABOLIC [id number] 13:51:00 Test Item Value Reference Range Comments SODIUM (BEAKER) (test 139 meq/L 135-148 dhpl=916) POTASSIUM (BEAKER) (test 3.4 meq/L 3.6-5.5 aqjq=193) CHLORIDE (BEAKER) (test 101 meq/L 98-106 xgqa=616) CO2 (BEAKER) (test 29 meq/L 20-29 qkda=834) BLOOD UREA NITROGEN 11 mg/dL 10-26 (BEAKER) (test grcd=138) CREATININE (BEAKER) (test 2.10 mg/dL 0.50-1.20 exvm=136) GLUCOSE RANDOM (BEAKER) 157 mg/dL 70-110 (test htzu=528) CALCIUM (BEAKER) (test 8.6 mg/dL 8.5-10.5 kmzf=669) EGFR (BEAKER) (test 33 mL/min/1.73 sq m ESTIMATED GFR IS NOT akzi=3710) ACCURATE CREATININE CLEARANCE IN PREDICTING GLOMERULAR FILTRATION RATE. ESTIMATED GFR IS NOT APPLICABLE FOR DIALYSIS PATIENTS. [id number] 13:44:00 Test Item Value Reference Range Comments MAGNESIUM (BEAKER) (test lsmz=989) 1.9 mg/dL 1.5-3.0 CBC W/PLT COUNT & AUTO [id number] 13:34:00 Test Item Value Reference Range Comments WHITE BLOOD CELL COUNT (BEAKER) (test pzvw=964) 6.8 K/ L 4.0-10.0 RED BLOOD CELL COUNT (BEAKER) (test bikv=783) 2.92 M/ L 4.20-5.80 HEMOGLOBIN (BEAKER) (test rmgb=686) 8.4 GM/DL 13.0-16.8 HEMATOCRIT (BEAKER) (test xria=142) 25.5 % 40.0-50.0 MEAN CORPUSCULAR VOLUME (BEAKER) (test gtee=876) 87.4 fL 82.0-98.0 MEAN CORPUSCULAR HEMOGLOBIN (BEAKER) (test 28.7 pg 27.0-33.0 crqf=381) MEAN CORPUSCULAR HEMOGLOBIN CONC (BEAKER) (test 32.8 GM/DL 32.0-36.0 hewk=246) RED CELL DISTRIBUTION WIDTH (BEAKER) (test 14.7 % 10.3-14.2 ihli=684) PLATELET COUNT (BEAKER) (test ddxp=483) 299 K/CU MM 150-430 MEAN PLATELET VOLUME (BEAKER) (test iwns=285) 6.9 fL 6.5-10.5 NUCLEATED RED BLOOD CELLS (BEAKER) (test 0 /100 WBC 0-0 izmq=041) NEUTROPHILS RELATIVE PERCENT (BEAKER) (test 65 % prba=137) LYMPHOCYTES RELATIVE PERCENT (BEAKER) (test 18 % pxbr=372) MONOCYTES RELATIVE PERCENT (BEAKER) (test 14 % dcyf=182) EOSINOPHILS RELATIVE PERCENT (BEAKER) (test 3 % tvjb=116) BASOPHILS RELATIVE PERCENT (BEAKER) (test 1 % heiy=655) NEUTROPHILS ABSOLUTE COUNT (BEAKER) (test 4.40 K/ L 1.80-8.00 glnc=190) LYMPHOCYTES ABSOLUTE COUNT (BEAKER) (test 1.20 K/ L 1.48-4.50 caez=643) MONOCYTES ABSOLUTE COUNT (BEAKER) (test 1.00 K/ L 0.00-1.30 xmdh=526) EOSINOPHILS ABSOLUTE COUNT (BEAKER) (test 0.20 K/ L 0.00-0.50 cjzp=349) BASOPHILS ABSOLUTE COUNT (BEAKER) (test 0.00 K/ L 0.00-0.20 mprh=758) POCT-GLUCOSE [id number] 11:28:00 Test Item Value Reference Range Comments POC-GLUCOSE METER (BEAKER) 147 mg/dL 70-110 TESTED AT [address] (test kivk=9270) [facility] [address] POCT-GLUCOSE [id number] 06:04:00 Test Item Value Reference Range Comments POC-GLUCOSE METER (BEAKER) 137 mg/dL 70-110 TESTED AT [address] (test hzjw=6968) [facility] [address] POCT-GLUCOSE [id number] 21:01:00 Test Item Value Reference Range Comments POC-GLUCOSE METER (BEAKER) 138 mg/dL 70-110 TESTED AT [address] (test ftpf=8532) [facility] [address] POCT-GLUCOSE [id number] 16:06:00 Test Item Value Reference Range Comments POC-GLUCOSE METER (BEAKER) 167 mg/dL 70-110 TESTED AT [address] (test lfrp=7714) [facility] [address] POCT-GLUCOSE [id number] 12:49:00 Test Item Value Reference Range Comments POC-GLUCOSE METER (BEAKER) 144 mg/dL 70-110 TESTED AT [address] (test ovhg=1814) [facility] [address] [id number] 10:27:00 Test Item Value Reference Range Comments POC-CREATININE (BEAKER) 3.6 mg/dL 0.6-1.3 TESTED AT [address] (test bwos=9763) [place] [address] POC-EGFR (BEAKER) (test 18 mL/min/1.73M2 nfnt=1589) [id number] 10:27:00 Test Item Value Reference Range Comments POC-SODIUM (BEAKER) (test 138 meq/L 135-148 TESTED AT [address] PO[place] mvtd=0821) [place] [address] [id number] 10:27:00 Test Item Value Reference Range Comments POC-POTASSIUM (BEAKER) 3.6 meq/L 3.6-5.5 TESTED AT [address] (test ffqi=6764) [place] [address] [id number] 10:27:00 Test Item Value Reference Range Comments POC-BUN (BEAKER) (test 20 mg/dL 7-21 TESTED AT [address] [place] yubd=8821) [place] [address] [id number] 10:27:00 Test Item Value Reference Range Comments POC-CHLORIDE (BEAKER) (test 97 meq/L 98-107 TESTED AT [address] [place] gnqj=9805) [place] [address] [id number] 10:27:00 Test Item Value Reference Range Comments POC-GLUCOSE (BEAKER) (test 123 mg/dL 70-110 TESTED AT [address] kcft=7839) [place] [address] [id number] 10:27:00 Test Item Value Reference Range Comments POC-HEMATOCRIT (BEAKER) (test 24 % 40-50 TESTED AT [address] hdzp=0303) [place] [address] [id number] 10:27:00 Test Item Value Reference Range Comments POC-HEMOGLOBIN (BEAKER) 8.2 g/dL 13.0-16.8 TESTED AT [address] (test flol=2020) [place] [address] [id number] 10:27:00 Test Item Value Reference Range Comments POC-TCO2 (BEAKER) (test 30 meq/L 22-29 TESTED AT [address] nuet=5091) [facility] [address] POCT-GLUCOSE [id number] 06:08:00 Test Item Value Reference Range Comments POC-GLUCOSE METER (BEAKER) 163 mg/dL 70-110 TESTED AT [address] (test jdax=0332) [facility] [address] POCT-GLUCOSE [id number] 21:07:00 Test Item Value Reference Range Comments POC-GLUCOSE METER (BEAKER) 132 mg/dL 70-110 TESTED AT [address] (test fjkg=8103) [facility] [address] POCT-GLUCOSE [id number] 12:58:00 Test Item Value Reference Range Comments POC-GLUCOSE METER (BEAKER) 178 mg/dL 70-110 TESTED AT [address] (test vmdj=7831) [facility] [address] POCT-GLUCOSE [id number] 05:29:00 Test Item Value Reference Range Comments POC-GLUCOSE METER (BEAKER) 171 mg/dL 70-110 TESTED AT [address] (test uggq=5453) [facility] [address] POCT-GLUCOSE [id number] 22:03:00 Test Item Value Reference Range Comments POC-GLUCOSE METER (BEAKER) 249 mg/dL 70-110 TESTED AT [address] (test ejlx=4493) [facility] [address] POCT-GLUCOSE [id number] 16:45:00 Test Item Value Reference Range Comments POC-GLUCOSE METER (BEAKER) 213 mg/dL 70-110 TESTED AT [address] (test fdqc=9573) [facility] [address] [id number] 16:43:00 Test Item Value Reference Range Comments THYROID STIMULATING HORMONE (BEAKER) (test 2.09 uIU/mL 0.35-5.50 rghf=960) COMPREHENSIVE METABOLIC [id number] 16:24:00 Test Item Value Reference Range Comments TOTAL PROTEIN (BEAKER) 7.2 gm/dL 6.0-8.5 (test smys=773) ALBUMIN (BEAKER) (test 3.5 g/dL 3.5-5.0 ynbn=8616) ALKALINE PHOSPHATASE 67 U/L 30-115 (BEAKER) (test nnev=303) BILIRUBIN TOTAL (BEAKER) 0.3 mg/dL 0.1-1.2 (test wptf=265) SODIUM (BEAKER) (test 136 meq/L 135-148 jwvy=842) POTASSIUM (BEAKER) (test 4.1 meq/L 3.6-5.5 pgnv=535) CHLORIDE (BEAKER) (test 98 meq/L 98-106 skql=512) CO2 (BEAKER) (test 26 meq/L 20-29 teif=888) BLOOD UREA NITROGEN 32 mg/dL 10-26 (BEAKER) (test opwe=985) CREATININE (BEAKER) (test 4.40 mg/dL 0.50-1.20 tltn=550) GLUCOSE RANDOM (BEAKER) 212 mg/dL 70-110 (test mtzs=503) CALCIUM (BEAKER) (test 9.0 mg/dL 8.5-10.5 uzlq=232) AST (SGOT) (BEAKER) (test 14 U/L 5-40 bngt=198) ALT (SGPT) (BEAKER) (test 4 U/L 5-50 jcuk=644) EGFR (BEAKER) (test 14 mL/min/1.73 sq m ESTIMATED GFR IS NOT kvxc=3583) ACCURATE CREATININE CLEARANCE IN PREDICTING GLOMERULAR FILTRATION RATE. ESTIMATED GFR IS NOT APPLICABLE FOR DIALYSIS PATIENTS. CBC W/PLT COUNT & AUTO [id number] 16:02:00 Test Item Value Reference Range Comments WHITE BLOOD CELL COUNT (BEAKER) (test uyxf=596) 6.9 K/ L 4.0-10.0 RED BLOOD CELL COUNT (BEAKER) (test mass=832) 2.95 M/ L 4.20-5.80 HEMOGLOBIN (BEAKER) (test asiz=223) 8.6 GM/DL 13.0-16.8 HEMATOCRIT (BEAKER) (test tktw=257) 25.9 % 40.0-50.0 MEAN CORPUSCULAR VOLUME (BEAKER) (test ytec=623) 87.9 fL 82.0-98.0 MEAN CORPUSCULAR HEMOGLOBIN (BEAKER) (test 29.0 pg 27.0-33.0 zueb=240) MEAN CORPUSCULAR HEMOGLOBIN CONC (BEAKER) (test 33.0 GM/DL 32.0-36.0 detl=310) RED CELL DISTRIBUTION WIDTH (BEAKER) (test 15.0 % 10.3-14.2 enkc=273) PLATELET COUNT (BEAKER) (test rtlf=163) 330 K/CU MM 150-430 MEAN PLATELET VOLUME (BEAKER) (test klgj=873) 7.1 fL 6.5-10.5 NUCLEATED RED BLOOD CELLS (BEAKER) (test 0 /100 WBC 0-0 dbvw=223) NEUTROPHILS RELATIVE PERCENT (BEAKER) (test 66 % hack=350) LYMPHOCYTES RELATIVE PERCENT (BEAKER) (test 16 % nnwh=700) MONOCYTES RELATIVE PERCENT (BEAKER) (test 12 % gsab=552) EOSINOPHILS RELATIVE PERCENT (BEAKER) (test 5 % fgob=864) BASOPHILS RELATIVE PERCENT (BEAKER) (test 1 % sreu=498) NEUTROPHILS ABSOLUTE COUNT (BEAKER) (test 4.60 K/ L 1.80-8.00 nmiw=250) LYMPHOCYTES ABSOLUTE COUNT (BEAKER) (test 1.10 K/ L 1.48-4.50 lmba=009) MONOCYTES ABSOLUTE COUNT (BEAKER) (test 0.80 K/ L 0.00-1.30 eciu=343) EOSINOPHILS ABSOLUTE COUNT (BEAKER) (test 0.30 K/ L 0.00-0.50 vzxu=860) BASOPHILS ABSOLUTE COUNT (BEAKER) (test 0.10 K/ L 0.00-0.20 bbqj=125) PROTHROMBIN [id number] 16:01:00 Test Item Value Reference Range Comments PROTIME (BEAKER) (test uggv=117) 10.3 seconds 9.3-12.0 INR (BEAKER) (test pgkc=966) 1.0 <=5.9 RECOMMENDED COUMADIN/WARFARIN INR THERAPY RANGESSTANDARD DOSE: 2.0 - 3.0 Includes: PROPHYLAXIS forvenous thrombosis, systemic embolization; TREATMENT for venous thrombosis and/or pulmonary embolus.HIGH RISK: Target INR is 2.5-3.5 for patients with mechanical heart valves.POCT-GLUCOSE [id number] 12:01:00 Test Item Value Reference Range Comments POC-GLUCOSE METER (BEAKER) 211 mg/dL 70-110 TESTED AT [address] (test ybvc=5535) [facility] [address] POCT-GLUCOSE [id number] 06:08:00 Test Item Value Reference Range Comments POC-GLUCOSE METER (BEAKER) 191 mg/dL 70-110 TESTED AT [address] (test idcc=3618) [facility] [address] POCT-GLUCOSE [id number] 21:28:00 Test Item Value Reference Range Comments POC-GLUCOSE METER (BEAKER) 233 mg/dL 70-110 TESTED AT [address] (test ureh=3524) [facility] [address] POCT-GLUCOSE [id number] 16:19:00 Test Item Value Reference Range Comments POC-GLUCOSE METER (BEAKER) 290 mg/dL 70-110 TESTED AT [address] (test qkge=9621) [facility] [address] POCT-GLUCOSE [id number] 13:33:00 Test Item Value Reference Range Comments POC-GLUCOSE METER (BEAKER) 186 mg/dL 70-110 TESTED AT [address] (test obaa=2905) [facility] [address] POCT-GLUCOSE [id number] 06:27:00 Test Item Value Reference Range Comments POC-GLUCOSE METER (BEAKER) 204 mg/dL 70-110 TESTED AT [address] (test pvcn=8261) [facility] [address] POCT-GLUCOSE [id number] 21:40:00 Test Item Value Reference Range Comments POC-GLUCOSE METER (BEAKER) 267 mg/dL 70-110 TESTED AT [address] (test jtcj=0765) [facility] [address] POCT-GLUCOSE [id number] 17:32:00 Test Item Value Reference Range Comments POC-GLUCOSE METER (BEAKER) 221 mg/dL 70-110 TESTED AT [address] (test esck=0321) [facility] [address] HEPATITIS B SURFACE [id number] 14:21:00 Test Item Value Reference Range Comments HEPATITIS B SURFACE ANTIBODY (BEAKER) (test < mIU/mL <8.0 qmal=671) HEPATITIS B CORE ANTIBODY, [id number] 14:15:00 Test Item Value Reference Range Comments HEPATITIS B CORE TOTAL ANTIBODY (BEAKER) (test Nonreactive Nonreactive ywth=546) POCT-GLUCOSE [id number] 12:18:00 Test Item Value Reference Range Comments POC-GLUCOSE METER (BEAKER) 193 mg/dL 70-110 TESTED AT [address] (test pbto=8086) [facility] [address] RAD, CHEST, 1 VIEW, NON [id number] 08:49:00Reason for exam:->for outpatient HD placementShould this [...] Hammereport Verified Date/Time: 06/10/2017 08:49:42 Reading Location: [facility] Radiology Reading Room Electronically signed by: SACHI HAMMER on 2016 08:49 AMPOCT-GLUCOSE [id number] 06:53:00 Test Item Value Reference Range Comments POC-GLUCOSE METER (BEAKER) 177 mg/dL 70-110 TESTED AT [address] (test rmqa=6066) [facility] [address] POCT-GLUCOSE [id number] 22:10:00 Test Item Value Reference Range Comments POC-GLUCOSE METER (BEAKER) 109 mg/dL 70-110 TESTED AT [address] (test hgop=9738) [facility] [address] HEPATITIS B SURFACE [id number] 20:18:00 Test Item Value Reference Range Comments HEPATITIS B SURFACE ANTIGEN (2) (BEAKER) (test Nonreactive Nonreactive oguh=3622) POCT-GLUCOSE [id number] 17:08:00 Test Item Value Reference Range Comments POC-GLUCOSE METER (BEAKER) 223 mg/dL 70-110 TESTED AT [address] (test apkd=4669) [facility] [address] POCT-GLUCOSE [id number] 12:47:00 Test Item Value Reference Range Comments POC-GLUCOSE METER (LUIS ALBERTO) 200 mg/dL 70-110 TESTED AT [address] (test qsmx=6915) [place] [facility] [address] ANG, TUNNELED CATHETER [id number] 12:13:00Reason for exam:->renal failureFINAL REPORT Tunneled central [...] the patient's medical record by the nurse. Luggage Attendant: Onesimo Lopez MD. Customer Experience Professional: None. Approach: Right internal jugular vein Estimated [...] needle into the right atrium. A 4 Portuguese micropuncture sheath was placed. A subcutaneous tunnel was created in the right anterior chest wall by blunt dissection. A 19 cm tipped cuff 15.5 Portuguese Duraflow 2 catheter was brought through the [...] Lopez Verified Date/Time: 06/09/2017 12:13:36 Reading Location: [facility] Radiology Reading Room 12 :13 PMPOCT-GLUCOSE [id number] 06:03:00 Test Item Value Reference Range Comments POC-GLUCOSE METER (BEAKER) 208 mg/dL 70-110 TESTED AT [facility] [address] [place] [address] (test tons=5155) [address] [facility] [address] BASIC METABOLIC [id number] 06:00:00 Test Item Value Reference Range Comments SODIUM (BEAKER) (test 139 meq/L 135-148 jrxq=542) POTASSIUM (BEAKER) (test 3.5 meq/L 3.6-5.5 fcor=028) CHLORIDE (BEAKER) (test 103 meq/L 98-106 ltsk=573) CO2 (BEAKER) (test 26 meq/L 20-29 ngam=193) BLOOD UREA NITROGEN 62 mg/dL 10-26 (BEAKER) (test aapp=207) CREATININE (BEAKER) (test 5.10 mg/dL 0.50-1.20 brnd=340) GLUCOSE RANDOM (BEAKER) 191 mg/dL 70-110 (test mism=096) CALCIUM (BEAKER) (test 9.0 mg/dL 8.5-10.5 fexh=344) EGFR (BEAKER) (test 12 mL/min/1.73 sq m ESTIMATED GFR IS NOT qyrb=3589) ACCURATE CREATININE CLEARANCE IN PREDICTING GLOMERULAR FILTRATION RATE. ESTIMATED GFR IS NOT APPLICABLE FOR DIALYSIS PATIENTS. HEPATIC FUNCTION [id number] 05:58:00 Test Item Value Reference Range Comments TOTAL PROTEIN (BEAKER) (test bmue=895) 6.3 gm/dL 6.0-8.5 ALBUMIN (BEAKER) (test tfpw=2027) 3.2 g/dL 3.5-5.0 BILIRUBIN TOTAL (BEAKER) (test gwpj=702) 0.4 mg/dL 0.1-1.2 BILIRUBIN DIRECT (BEAKER) (test ixzl=983) 0.2 mg/dL 0.0-0.4 ALKALINE PHOSPHATASE (BEAKER) (test waim=744) 67 U/L 30-115 AST (SGOT) (BEAKER) (test lxlm=673) 13 U/L 5-40 ALT (SGPT) (BEAKER) (test ytga=744) 10 U/L 5-50 CBC W/PLT COUNT & AUTO [id number] 05:56:00 Test Item Value Reference Range Comments WHITE BLOOD CELL COUNT (BEAKER) (test zqbw=396) 6.3 K/ L 4.0-10.0 RED BLOOD CELL COUNT (BEAKER) (test zhmx=381) 2.71 M/ L 4.20-5.80 HEMOGLOBIN (BEAKER) (test pqym=015) 7.8 GM/DL 13.0-16.8 HEMATOCRIT (BEAKER) (test jtue=869) 23.6 % 40.0-50.0 MEAN CORPUSCULAR VOLUME (BEAKER) (test oulb=458) 86.8 fL 82.0-98.0 MEAN CORPUSCULAR HEMOGLOBIN (BEAKER) (test 28.6 pg 27.0-33.0 nzaq=798) MEAN CORPUSCULAR HEMOGLOBIN CONC (BEAKER) (test 33.0 GM/DL 32.0-36.0 mjny=686) RED CELL DISTRIBUTION WIDTH (BEAKER) (test 14.8 % 10.3-14.2 clie=442) PLATELET COUNT (BEAKER) (test mzut=833) 334 K/CU MM 150-430 MEAN PLATELET VOLUME (BEAKER) (test iflv=807) 6.9 fL 6.5-10.5 NUCLEATED RED BLOOD CELLS (BEAKER) (test 0 /100 WBC 0-0 hciy=389) NEUTROPHILS RELATIVE PERCENT (BEAKER) (test 57 % owdq=725) LYMPHOCYTES RELATIVE PERCENT (BEAKER) (test 19 % govg=656) MONOCYTES RELATIVE PERCENT (BEAKER) (test 15 % qznd=384) EOSINOPHILS RELATIVE PERCENT (BEAKER) (test 7 % ospd=375) BASOPHILS RELATIVE PERCENT (BEAKER) (test 1 % abyw=190) NEUTROPHILS ABSOLUTE COUNT (BEAKER) (test 3.60 K/ L 1.80-8.00 boew=275) LYMPHOCYTES ABSOLUTE COUNT (BEAKER) (test 1.20 K/ L 1.48-4.50 bgvm=054) MONOCYTES ABSOLUTE COUNT (BEAKER) (test 1.00 K/ L 0.00-1.30 zwzl=630) EOSINOPHILS ABSOLUTE COUNT (BEAKER) (test 0.50 K/ L 0.00-0.50 clee=498) BASOPHILS ABSOLUTE COUNT (BEAKER) (test 0.10 K/ L 0.00-0.20 roqs=429) [id number] 05:55:00 Test Item Value Reference Range Comments PHOSPHORUS (BEAKER) (test hkak=833) 4.1 mg/dL 2.5-4.5 [id number] 05:51:00 Test Item Value Reference Range Comments PROTIME (BEAKER) (test jayp=268) 10.7 seconds 9.3-12.0 INR (BEAKER) (test rcub=704) 1.0 <=5.9 PARTIAL THROMBOPLASTIN TIME (BEAKER) (test 28.5 seconds 23.0-35.0 aezu=122) RECOMMENDED COUMADIN/WARFARIN INR THERAPY RANGESSTANDARD DOSE: 2.0 - 3.0 Includes: PROPHYLAXIS forvenous thrombosis, systemic embolization; TREATMENT for venous thrombosis and/or pulmonary embolus.HIGH RISK: Target INR is 2.5-3.5 for patients with mechanical heart valves.[id number] 05:50:00 Test Item Value Reference Range Comments MAGNESIUM (BEAKER) (test deoz=863) 1.7 mg/dL 1.5-3.0 POCT-GLUCOSE [id number] 23:14:00 Test Item Value Reference Range Comments POC-GLUCOSE METER (BEAKER) 230 mg/dL 70-110 TESTED AT [address] (test htro=9118) [facility] [address]
[2018-12-23 22:22] LABS: Absolute Lymphocytes (CBC) 0.3 K/uL (0.7-4.9); Basophils % 1.2 % (0-1.3); Eosinophils % 5.6 % (0-4.4); Lymphocytes % 5.6 % (15.3-44.8); MPV 7.9 fL (7.6-11.3); Monocytes % 13.8 % (3.3-12.3); RBC Red Blood Cell Count 3.67 M/uL (4.33-5.43)
[2018-12-23] MEDS ORDERED: MORPHINE 2 MG/ML SYR ONE (22:28)
[2018-12-23] MEDS ORDERED: ONDANSETRON 4 MG/2 ML VIAL ONE (22:28)
[2018-12-23 22:29] LABS: Protime INR 1.15
[2018-12-23] MEDS ORDERED: ASPIRIN 81 MG CHEWABLE TABLET ONE (22:35)
--- NOTE | 2018-12-23 22:43 | RAD REPORT ---
EXAM DESCRIPTION: Lydia Single View12/23/2018 10:37 pm CLINICAL HISTORY: Chest pain COMPARISON: October 2018 e FINDINGS: Mild bilateral pulmonary opacities Heart is mildly to moderately enlarged IMPRESSION: Mild CHF
[2018-12-23 23:03] LABS: Albumin 3.1 g/dL (3.4-5.0); Bilirubin Direct 0.5 mg/dL (0-0.2); Bilirubin Total 0.8 mg/dL (0.2-1.0); Magnesium 2.5 mg/dL (1.8-2.4); Potassium 4.9 mmol/L (3.5-5.1); Protein, Total 7.9 g/dL (6.4-8.2)
[2018-12-23 23:04] LABS: Troponin (Emerg Dept Use Only) 2.56 ng/mL (0.0-0.045)
[2018-12-23] MEDS ORDERED: FENTANYL CITR 100 MCG/2 ML ONE (23:26)
[2018-12-23] MEDS ORDERED: CLOPIDOGREL 75 MG TABLET ONE (23:33)
[2018-12-24] MEDS ORDERED: HEPARIN/D5W 25,000 UNIT/500 ML BAG IV ONE (00:49)
[2018-12-24] MEDS ORDERED: HEPARIN 5000 UNIT/ML 1 ML VIAL ONE (00:49)
[2018-12-24] MEDS ORDERED: NITROGLYCERIN/D5W 50 MG/250 ML BTL IV ONE (00:49)
[2018-12-24] MEDS ORDERED: FENTANYL CITR 100 MCG/2 ML ONE ×2 (01:25→04:17)
--- NOTE | 2018-12-24 02:01 | ER ---
Nurse's Notes [facility] Name: Yusuf Bah Age: 53 yrs Sex: Male : 1965 Arrival Date: 12/23/2018 Time: 21:45 Bed 6 Private MD: Garo Chavarria Diagnosis: Non-ST elevation (NSTEMI) myocardial infarction Presentation: 12/23 21:59 Presenting complaint: Patient states: I had a stent placed on with Dr. Payton jimenez at [place] and this morning I woke up with chest pain. Transition of care: patient was not received from another setting of care. Onset of symptoms was December 23, 2018. Risk Assessment: Do you want to hurt yourself or someone else? Patient reports no desire to harm self or others. Initial Sepsis Screen: Does the patient meet any 2 criteria? No. Patient's initial sepsis screen is negative. Does the patient have a suspected source of infection? No. Patient's initial sepsis screen is negative. Care prior to arrival: None. 21:59 Method Of Arrival: Ambulatory la1 21:59 Acuity: ALVERTO 2 la1 Triage Assessment: 23:42 General: Appears in no apparent distress. uncomfortable, obese, well groomed, well eb1 developed, well nourished, Behavior is calm, cooperative, appropriate for age. Pain: Complains of pain in chest Pain does not radiate. Pain currently is 8 out of 10 on a pain scale. Quality of pain is described as heavy, pressure, Pain began 1 hour ago. EENT: No deficits noted. No signs and/or symptoms were reported regarding the EENT system. Neuro: No deficits noted. Cardiovascular: Reports chest pain, Heart tones present Capillary refill < 3 seconds Pulses are all present. Rhythm is regular Chest pain is described as severe, quality is pressure, Dialysis shunt: in the right arm. Respiratory: No deficits noted. GI: Reports nausea. : No deficits noted. No signs and/or symptoms were reported regarding the genitourinary system. Derm: No deficits noted. No signs and/or symptoms reported regarding the dermatologic system. Musculoskeletal: No deficits noted. No signs and/or symptoms reported regarding the musculoskeletal system. Historical: - Allergies: 22:00 Sulfa (Sulfonamide Antibiotics); la1 - PMHx: 22:00 Angina; CAD; Depression; Diabetes - IDDM; Dialysis; GERD; Glaucoma; High Cholesterol; la1 Hypertension; Renal Disease; Small vessle disease of the heart; - Immunization history:: Adult Immunizations up to date. - Social history:: Smoking status: Patient/guardian denies using tobacco. - Ebola Screening: : No symptoms or risks identified at this time. Screenin:42 Abuse screen: Denies threats or abuse. Denies injuries from another. Nutritional eb1 screening: No deficits noted. Tuberculosis screening: No symptoms or risk factors identified. Fall Risk None identified. Assessment: 22:30 Cardiovascular: Reports chest pain, Heart tones present Capillary refill < 3 seconds eb1 Pulses are all present. Rhythm is regular Chest pain is described as Pain is 8 out of 10 on a pain scale. quality is pressure, began 1 hour prior to arrival Dialysis shunt: in the right arm, Parent/caregiver reports patient has had Patient states they started having chest pain today. They had x2 stents inserted on . Respiratory: No deficits noted. GI: Reports nausea. : No deficits noted. No signs and/or symptoms were reported regarding the genitourinary system. EENT: No deficits noted. No signs and/or symptoms were reported regarding the EENT system. Derm: No deficits noted. No signs and/or symptoms reported regarding the dermatologic system. 23:30 Pain: Complains of pain in chest Pain does not radiate. Pain currently is 6 out of 10 eb1 on a pain scale. Neuro: No deficits noted. 12/24 00:50 General: Appears in no apparent distress. comfortable, Behavior is calm, cooperative, rr5 appropriate for age. Pain: Complains of pain in chest Pain does not radiate. Pain currently is 5 out of 10 on a pain scale. Quality of pain is described as aching, Pain began gradually, Is intermittent. Neuro: Level of Consciousness is awake, alert, obeys commands, Oriented to person, place, time, situation, Appropriate for age. Cardiovascular: Reports chest pain, Capillary refill < 3 seconds Patient's skin is warm and dry. Dialysis shunt: in the right arm. Respiratory: Airway is patent Respiratory effort is even, unlabored, Respiratory pattern is regular, symmetrical. GI: Reports nausea. : No signs and/or symptoms were reported regarding the genitourinary system. EENT: No signs and/or symptoms were reported regarding the EENT system. Derm: Skin is intact, Skin temperature is warm. Musculoskeletal: Capillary refill < 3 seconds, Range of motion: intact in all extremities. 00:55 Reassessment: Patient appears in no apparent distress at this time. ED provider ordered rr5 to titrate the GTN drip. patient verbalized he feels much better now. 01:19 Reassessment: GTN drip maintain to 5mcg/min as ordered by the provider. rr5 01:40 Reassessment: Patient appears in no apparent distress at this time. Patient is alert, rr5 oriented x 3, equal unlabored respirations, skin warm/dry/pink. ED provider verbal order to increase GTN drip to 7.5mcg/min. pain score of 3/10. 02:20 Reassessment: Patient appears in no apparent distress at this time. Patient is alert, rr5 oriented x 3, equal unlabored respirations, skin warm/dry/pink. pain score of 1/10. no complaints made. chatting with his data examination clerk at bedside. Patient states feeling better. Patient states symptoms have improved. 02:40 Reassessment: endorsement made over the phone to ambrocio gan staff nurse rr5 ([phone]) and accepted the case. 03:20 Reassessment: Patient appears in no apparent distress at this time. Patient is alert, rr5 oriented x 3, equal unlabored respirations, skin warm/dry/pink. awaiting for EMS transport. it will take around 1 hour to arrive. Patient denies pain at this time. Patient states feeling better. 03:50 Reassessment: Patient appears in no apparent distress at this time. complaint of chest rr5 pain. pain score of 4/10. fentanyl stat dose given increased the GTN drip to 10mcg/min. 04:12 Reassessment: Patient appears in no apparent distress at this time. Patient is alert, rr5 oriented x 3, equal unlabored respirations, skin warm/dry/pink. endorsed to [facility] 15/15 AO x4 verbalized it improves now pain score of 2/10. vitally stable. with IV cannula intact infusing well GTN drip at 10mcg/min and heparin drip at 20 ml/hr. on IV pump. Patient states feeling better. Patient states symptoms have improved. 04:15 Reassessment: ambrocio staff nurse from [place] updated patient is on the way. rr5 Vital Signs: 12/23 22:00 BP 139 / 82; Pulse 88; Resp 16; Temp 97.4; Pulse Ox 98% on R/A; Weight 97.52 kg; Height la1 6 ft. 3 in. (190.50 cm); Pain 8/10; 23:41 BP 125 / 56; Pulse 68; Resp 19; Temp 97.5; Pulse Ox 96% ; Pain 5/10; eb1 12/24 00:31 BP 148 / 80; Pulse 84; Resp 16; Pulse Ox 98% on R/A; la1 00:50 BP 146 / 78; Pulse 69; Resp 17; Pulse Ox 98% ; Pain 5/10; rr5 01:00 BP 138 / 78; Pulse 70; Resp 15; Pulse Ox 99% on R/A; Pain 5/10; rr5 01:10 BP 147 / 81; Pulse 68; Resp 16; Pulse Ox 98% ; Pain 5/10; rr5 01:20 BP 147 / 80; Pulse 63; Resp 15; Pulse Ox 99% on R/A; rr5 01:30 BP 139 / 70; Pulse 65; Resp 16; Pulse Ox 100% ; rr5 01:40 BP 136 / 73; Pulse 69; Resp 15; Pulse Ox 99% on R/A; Pain 3/10; rr5 01:50 BP 139 / 70; Pulse 66; Resp 17; Temp 97.6; Pulse Ox 99% ; Pain 3/10; rr5 02:00 BP 142 / 76; Pulse 69; Resp 16; Pulse Ox 99% on R/A; rr5 02:10 BP 137 / 80; Pulse 68; Resp 17; Pulse Ox 100% ; rr5 02:20 BP 133 / 74; Pulse 67; Resp 14; Pulse Ox 97% ; rr5 02:30 BP 134 / 78; Pulse 68; Resp 18; Pulse Ox 100% ; rr5 02:40 BP 137 / 77; Pulse 66; Resp 17; Pulse Ox 100% ; rr5 02:50 BP 139 / 78; Pulse 67; Resp 19; Pulse Ox 99% ; rr5 03:00 BP 135 / 78; Pulse 65; Resp 15; Pulse Ox 99% on R/A; rr5 03:00 Pain 0/10; rr5 03:10 BP 138 / 75; Pulse 67; Resp 17; Pulse Ox 100% ; rr5 03:20 BP 142 / 75; Pulse 67; Resp 16; Pulse Ox 100% ; rr5 03:30 BP 133 / 75; Pulse 66; Resp 19; Pulse Ox 100% ; rr5 03:40 BP 139 / 71; Pulse 68; Resp 15; Pulse Ox 100% ; Pain 1/10; rr5 03:50 BP 132 / 73; Pulse 68; Resp 16; Pulse Ox 99% on R/A; Pain 4/10; rr5 04:00 BP 131 / 78; Pulse 69; Resp 15; Temp 97.8; Pulse Ox 99% ; Pain 2/10; rr5 12/23 22:00 Body Mass Index 26.87 (97.52 kg, 190.50 cm) la1 01:10 fentanyl stat dose given rr5 01:40 fenatnyl 50mcg/IV given rr5 ED Course: 12/23 21:45 Patient arrived in ED. mr 21:45 Garo Chavarria MD is Private Physician. mr 21:51 [facility] cp 21:51 Oscar Ku MD is Attending Physician. cp 21:59 Triage completed. la1 22:00 Arm band placed on left wrist. EKG completed in triage. Results shown to . la1 22:05 Initial lab(s) drawn, by me, sent to lab. Inserted saline lock: 20 gauge in left aa1 forearm, using aseptic technique. Blood collected. 22:38 XRAY Chest (1 view) In Process Unspecified. EDMS 23:41 No apparent distress. Resting quietly. Awaiting lab results. Patient requests liquids. eb1 23:44 Patient has correct armband on for positive identification. Bed in low position. eb1 23:44 Patient maintains SpO2 saturation greater than 95% on room air. eb1 23:45 naturalist on. Pulse ox on. NIBP on. eb1 12/24 00:55 Johnie Ang RN is Primary Nurse. rr5 04:17 No provider procedures requiring assistance completed. Patient transferred, IV remains rr5 in place. intact, No redness/swelling at site. Administered Medications: 12/23 22:18 Drug: morphine 2 mg Route: IVP; Site: right antecubital; eb1 23:20 Follow up: Response: No adverse reaction rr5 22:18 Drug: Zofran 4 mg Route: IVP; Site: right antecubital; eb1 12/24 00:30 Follow up: Response: No adverse reaction rr5 12/23 22:21 Drug: Aspirin Chewable Tablet 324 mg Route: PO; eb1 12/24 00:30 Follow up: Response: No adverse reaction rr5 12/23 23:17 Drug: fentaNYL (PF) 25 mcg Route: IVP; Site: left antecubital; eb1 12/24 00:20 Follow up: Response: No adverse reaction rr5 12/23 23:21 Drug: PlaVIX 300 mg Route: PO; eb1 12/24 00:20 Follow up: Response: No adverse reaction rr5 00:37 Drug: Nitroglycerin 5 mcg/min Route: IV; Rate: calculated rate; Site: left forearm; aa1 01:00 Follow up: Rate change 3 mcg/min rr5 01:19 Follow up: Rate change 5 mcg/min rr5 01:40 Follow up: Rate change 7.5 mcg/min; pain score 3/10. ED provider ordered and carrried rr5 out. 04:20 Follow up: Response: No adverse reaction; IV Status: Infusion continued upon transfer; rr5 IV Intake: 10ml 04:21 Follow up: IV Status: Infusion continued upon transfer rr5 00:40 Drug: Heparin (PR Drip) 12 units/kg/hr - (HEParin 09682 units, D5W 500 ml) aa1 {Co-Signature: tony (Jose Schultz RN).} Route: IV; Rate: calculated rate; Site: left hand; 03:50 Follow up: Rate change 10 mcg/min rr5 04:20 Follow up: Response: No adverse reaction; IV Status: Infusion continued upon transfer; rr5 IV Intake: 60ml 00:41 Drug: Heparin (PR-Bolus No thrombolytic) - HEParin 60 units/kg {Co-Signature: tony (Jose Schultz RN).} Route: IVP; Site: left hand; 01:40 Follow up: Response: No adverse reaction; no bleeding noted rr5 01:11 Drug: fentaNYL (PF) 25 mcg Route: IVP; Site: left forearm; rr5 02:10 Follow up: Response: No adverse reaction rr5 01:43 Drug: fentaNYL (PF) 50 mcg Route: IVP; Site: left forearm; rr5 02:40 Follow up: Response: No adverse reaction rr5 03:50 Drug: fentaNYL (PF) 50 mcg Route: IVP; Site: left forearm; rr5 04:21 Follow up: Response: No adverse reaction; Pain is decreased rr5 Intake: 04:20 IV: 10ml; Total: 10ml. rr5 04:20 IV: 60ml; Total: 70ml. rr5 Outcome: 02:00 ER care complete, transfer ordered by MD. [place] 04:17 Transferred by ground EMS to [facility], Transfer form completed. Note: by rr5 [facility]. 04:17 Condition: stable 04:17 Instructed on the need for transfer. 04:25 Patient left the ED. rr5 Signatures: Dispatcher [employer] EDSarah Dorman RN RN aa1 Katelyn VargasJose RN RN la1 Baldemar Jon PA PA cp Basinger, Emily, RN RN eb1 Johnie Ang RN RN rr5 Jose Schultz RN la1
--- NOTE | 2018-12-24 02:01 | EDPHYS ---
Physician Documentation [facility] Name: Yusuf Bah Age: 53 yrs Sex: Male : 1965 Arrival Date: 12/23/2018 Time: 21:45 Bed 6 Private MD: Garo Chavarria ED Physician Oscar Ku HPI: 12/23 22:02 This 53 yrs old Male presents to ER via Ambulatory with complaints of Chest cp Pain. 22:03 The patient or guardian reports chest pain that is located primarily in the anterior cp chest wall, left. Onset: this morning, at 08:00. The pain does not radiate. 22:03 The chest pain is described as a heaviness. Duration: The patient or guardian reports a cp single episode, that is still ongoing, and worsening. 22:03 Modifying factors: The symptoms are alleviated by nothing. cp 22:03 Severity of pain: in the emergency department the pain is a 8 / 10. cp 22:03 Associated signs and symptoms: Pertinent positives: nausea, shortness of breath, cp Pertinent negatives: abdominal pain, lower extremity pain, lower extremity swelling, vomiting. Historical: - Allergies: 22:00 Sulfa (Sulfonamide Antibiotics); la1 - PMHx: 22:00 Angina; CAD; Depression; Diabetes - IDDM; Dialysis; GERD; Glaucoma; High Cholesterol; la1 Hypertension; Renal Disease; Small vessle disease of the heart; - Immunization history:: Adult Immunizations up to date. - Social history:: Smoking status: Patient/guardian denies using tobacco. - Ebola Screening: : No symptoms or risks identified at this time. ROS: 22:04 Eyes: Negative for injury, pain, redness, and discharge. cp 22:04 Constitutional: Negative for body aches, chills, fever, poor PO intake. 22:04 ENT: Negative for drainage from ear(s), ear pain, sore throat, difficulty swallowing, difficulty handling secretions. 22:04 Cardiovascular: Positive for chest pain, Negative for edema, palpitations. 22:04 Respiratory: Positive for shortness of breath, Negative for cough, wheezing. 22:04 Abdomen/GI: Positive for nausea, Negative for abdominal pain, vomiting, diarrhea, constipation, black/tarry stool, rectal bleeding. 22:04 Skin: Negative for cellulitis, rash. 22:04 Neuro: Negative for altered mental status, headache, weakness. 22:04 All other systems are negative. Exam: 22:00 ECG was reviewed by the Attending Physician. cp 22:10 Constitutional: The patient appears in no acute distress, alert, awake, cp non-diaphoretic, non-toxic, well developed, well nourished. 22:10 Head/Face: Normocephalic, atraumatic. cp 22:10 Eyes: Periorbital structures: appear normal, Conjunctiva: normal, no exudate, no cp injection, Sclera: no appreciated abnormality, Lids and lashes: appear normal, bilaterally. 22:10 ENT: External ear(s): are unremarkable, Nose: is normal, Mouth: Lips: moist, Oral cp mucosa: pink and intact, moist, Posterior pharynx: is normal, airway is patent, no erythema, no exudate. 22:10 Neck: ROM/movement: is normal, is supple, without pain, no range of motions limitations, no nuchal rigidity. 22:10 Chest/axilla: Inspection: normal, Palpation: is normal, no crepitus, no tenderness. 22:10 Cardiovascular: Rate: normal, Rhythm: regular, Edema: is not appreciated, JVD: is not appreciated. 22:10 Respiratory: the patient does not display signs of respiratory distress, Respirations: normal, no use of accessory muscles, no retractions, no splinting, no tachypnea, labored breathing, is not present, Breath sounds: are clear throughout, no decreased breath sounds, no stridor, no wheezing. 22:10 Abdomen/GI: Inspection: abdomen appears normal, Palpation: abdomen is soft and non-tender, in all quadrants. 22:10 Back: pain, is absent, ROM is normal. 22:10 Skin: cellulitis, is not appreciated, no rash present. 22:10 Neuro: Orientation: to person, place \T\ time. Mentation: is normal, Cerebellar function: is grossly normal, Motor: moves all fours, strength is normal, Sensation: is normal. Vital Signs: 22:00 BP 139 / 82; Pulse 88; Resp 16; Temp 97.4; Pulse Ox 98% on R/A; Weight 97.52 kg; Height la1 6 ft. 3 in. (190.50 cm); Pain 8/10; 23:41 BP 125 / 56; Pulse 68; Resp 19; Temp 97.5; Pulse Ox 96% ; Pain 5/10; eb1 12/24 00:31 BP 148 / 80; Pulse 84; Resp 16; Pulse Ox 98% on R/A; la1 00:50 BP 146 / 78; Pulse 69; Resp 17; Pulse Ox 98% ; Pain 5/10; rr5 01:00 BP 138 / 78; Pulse 70; Resp 15; Pulse Ox 99% on R/A; Pain 5/10; rr5 01:10 BP 147 / 81; Pulse 68; Resp 16; Pulse Ox 98% ; Pain 5/10; rr5 01:20 BP 147 / 80; Pulse 63; Resp 15; Pulse Ox 99% on R/A; rr5 01:30 BP 139 / 70; Pulse 65; Resp 16; Pulse Ox 100% ; rr5 01:40 BP 136 / 73; Pulse 69; Resp 15; Pulse Ox 99% on R/A; Pain 3/10; rr5 01:50 BP 139 / 70; Pulse 66; Resp 17; Temp 97.6; Pulse Ox 99% ; Pain 3/10; rr5 02:00 BP 142 / 76; Pulse 69; Resp 16; Pulse Ox 99% on R/A; rr5 02:10 BP 137 / 80; Pulse 68; Resp 17; Pulse Ox 100% ; rr5 02:20 BP 133 / 74; Pulse 67; Resp 14; Pulse Ox 97% ; rr5 02:30 BP 134 / 78; Pulse 68; Resp 18; Pulse Ox 100% ; rr5 02:40 BP 137 / 77; Pulse 66; Resp 17; Pulse Ox 100% ; rr5 02:50 BP 139 / 78; Pulse 67; Resp 19; Pulse Ox 99% ; rr5 03:00 BP 135 / 78; Pulse 65; Resp 15; Pulse Ox 99% on R/A; rr5 03:00 Pain 0/10; rr5 03:10 BP 138 / 75; Pulse 67; Resp 17; Pulse Ox 100% ; rr5 03:20 BP 142 / 75; Pulse 67; Resp 16; Pulse Ox 100% ; rr5 03:30 BP 133 / 75; Pulse 66; Resp 19; Pulse Ox 100% ; rr5 03:40 BP 139 / 71; Pulse 68; Resp 15; Pulse Ox 100% ; Pain 1/10; rr5 03:50 BP 132 / 73; Pulse 68; Resp 16; Pulse Ox 99% on R/A; Pain 4/10; rr5 04:00 BP 131 / 78; Pulse 69; Resp 15; Temp 97.8; Pulse Ox 99% ; Pain 2/10; rr5 12/23 22:00 Body Mass Index 26.87 (97.52 kg, 190.50 cm) la1 01:10 fentanyl stat dose given rr5 01:40 fenatnyl 50mcg/IV given rr5 MDM: 12/23 21:53 Patient medically screened. cp 22:00 Differential diagnosis: abnormal EKG, acute myocardial infarction, pericarditis, cp pleurisy, pneumonia, pneumothorax, pulmonary embolus, stable angina, unstable angina. 12/24 01:51 ED course: pt seen and examined chest pain at 1-2 per the pt appears in no distress or gs discomfort. 01:58 ECG:. The patient was given aspirin in the Emergency Department. Data reviewed: vital cp signs, nurses notes, lab test result(s), EKG, radiologic studies, plain films, and as a result, I will transfer patient. Test interpretation: by ED physician or midlevel provider: ECG, plain radiologic studies. 12/23 21:54 Order name: Basic Metabolic Panel; Complete Time: 23:08 aa12/23 23:08 Interpretation: Normal except: NA 135; GLUC 211; BUN 35; CRE 5.82; GFR 10. cp 12/23 21:54 Order name: CBC with Diff; Complete Time: 22:57 aa12/23 22:57 Interpretation: Normal except: RBC 3.67; HGB 11.6; HCT 36.0; RDW 17.1; ARINA% 73.8; LYM% cp 5.6; MN% 13.8; EOSINOPHIL % 5.6; LYMA 0.3. 12/23 21:54 Order name: LFT's; Complete Time: 23:08 aa12/23 21:54 Order name: Magnesium; Complete Time: 23:08 12/23 21:54 Order name: NT PRO-BNP; Complete Time: 23:08 12/23 21:54 Order name: PT-INR; Complete Time: 22:57 aa12/23 21:54 Order name: Troponin (emerg Dept Use Only); Complete Time: 23:08 aa 12/23 23:08 Interpretation: Abnormal: TROPED 2.56. cp 12/23 21:54 Order name: XRAY Chest (1 view); Complete Time: 22:57 aa12/23 21:54 Order name: EKG; Complete Time: 21:56 12/23 21:54 Order name: Cardiac monitoring; Complete Time: 21:57 [facility] 12/23 21:54 Order name: EKG - Nurse/Tech; Complete Time: 21:57 aa12/23 21:54 Order name: IV Saline Lock; Complete Time: 21:55 aa12/23 21:54 Order name: Labs collected and sent; Complete Time: 22:13 12/23 21:54 Order name: O2 Per Protocol; Complete Time: 21:57 12/23 21:54 Order name: O2 Sat Monitoring; Complete Time: 21:57 EC/13 22:00 Rate is 75 beats/min. Rhythm is regular. FL interval is normal. QRS interval is cp prolonged at 104 msec. QT interval is normal. T waves are Inverted in leads I, aVL. Interpreted by me. Reviewed by me. Administered Medications: 22:18 Drug: morphine 2 mg Route: IVP; Site: right antecubital; eb1 23:20 Follow up: Response: No adverse reaction rr5 22:18 Drug: Zofran 4 mg Route: IVP; Site: right antecubital; 1 12/24 00:30 Follow up: Response: No adverse reaction rr5 12/23 22:21 Drug: Aspirin Chewable Tablet 324 mg Route: PO; eb1 12/24 00:30 Follow up: Response: No adverse reaction rr5 12/23 23:17 Drug: fentaNYL (PF) 25 mcg Route: IVP; Site: left antecubital; eb1 12/24 00:20 Follow up: Response: No adverse reaction rr5 12/23 23:21 Drug: PlaVIX 300 mg Route: PO; eb1 12/24 00:20 Follow up: Response: No adverse reaction rr5 00:37 Drug: Nitroglycerin 5 mcg/min Route: IV; Rate: calculated rate; Site: left forearm; aa1 01:00 Follow up: Rate change 3 mcg/min rr5 01:19 Follow up: Rate change 5 mcg/min rr5 01:40 Follow up: Rate change 7.5 mcg/min; pain score 3/10. ED provider ordered and carrried rr5 out. 04:20 Follow up: Response: No adverse reaction; IV Status: Infusion continued upon transfer; rr5 IV Intake: 10ml 04:21 Follow up: IV Status: Infusion continued upon transfer rr5 00:40 Drug: Heparin (AL Drip) 12 units/kg/hr - (HEParin 33785 units, D5W 500 ml) aa1 {Co-Signature: tony (Jose Schultz RN).} Route: IV; Rate: calculated rate; Site: left hand; 03:50 Follow up: Rate change 10 mcg/min rr5 04:20 Follow up: Response: No adverse reaction; IV Status: Infusion continued upon transfer; rr5 IV Intake: 60ml 00:41 Drug: Heparin (AL-Bolus No thrombolytic) - HEParin 60 units/kg {Co-Signature: tony (Jose Schultz RN).} Route: IVP; Site: left hand; 01:40 Follow up: Response: No adverse reaction; no bleeding noted rr5 01:11 Drug: fentaNYL (PF) 25 mcg Route: IVP; Site: left forearm; rr5 02:10 Follow up: Response: No adverse reaction rr5 01:43 Drug: fentaNYL (PF) 50 mcg Route: IVP; Site: left forearm; rr5 02:40 Follow up: Response: No adverse reaction rr5 03:50 Drug: fentaNYL (PF) 50 mcg Route: IVP; Site: left forearm; rr5 04:21 Follow up: Response: No adverse reaction; Pain is decreased rr5 Disposition: 12/24/18 02:00 Transfer ordered to [facility]. Diagnosis is Non-ST elevation (NSTEMI) myocardial infarction. - Reason for transfer: Higher level of care. - Accepting physician is DR Mckeon. - Condition is Stable. - Problem is new. - Symptoms have improved. Addendum: 12/26/2018 09:43 Co-signature as Attending Physician, Oscar Ku MD. g s Signatures: Dispatcher [employer] EDMS Sarah Randall RN RN aa1 Attema, Lee, RN RN la1 Page, Corey, PA PA cp Starr, Gregory, MD MD gs Yesi Roberson RN RN eb1 Johnie Ang, RN RN rr5 Jose Schultz RN la1 Corrections: (The following items were deleted from the chart) 12/24 04:25 02:00 12/24/2018 02:00 Transfer ordered to [facility]. rr5 Diagnosis is Non-ST elevation (NSTEMI) myocardial infarction. Reason for transfer: Higher level of care. Accepting physician is DR Mckeon. Condition is Stable. Problem is new. Symptoms have improved. cp
[2018-12-24 05:02] VITALS: O2SAT 99
[2018-12-24 05:03] VITALS: BP 131/78; TEMP 97.8
--- NOTE | 2018-12-24 05:58 | EKG ---
Test Date: 2018-12-23 Test Time: 21:54:33 Sketch Liner: [place] MEASUREMENT RESULTS: Intervals: Rate: 75 NE: 190 QRSD: 104 QT: 394 QTc: 439 [place]: P: 46 NE: 190 QRS: -20 T: 125 INTERPRETIVE STATEMENTS: Normal sinus rhythm Possible Left atrial enlargement Low voltage QRS Inferior infarct, age undetermined ST & T wave abnormality, consider lateral ischemia Abnormal ECG Compared to ECG 10/15/2018 23:54:19 Left-axis deviation no longer present Myocardial infarct finding still present Electronically Signed On 12-24-18 05:57:41 CDT by Kevin Esqueda
== END 2018-12-24 04:25 | disposition short-term general hospital (02) ==
LOC: ER 21:43
DX: I21.4 Non-ST elevation (NSTEMI) myocardial infarction (principal); Z88.2 Allergy status to sulfonamides
CPT/HCPCS: 36415; 71045; 80048; 80076; 83735; 83880; 84484; 85025; 85610; 93005; 99285; J1644; J2270; J2405; J3010

== ENCOUNTER 2019-02-17 23:05 | Emergency (ER) | payer BC, OTHER ==
--- OUTSIDE RECORDS SUMMARY | 2019-02-17 23:08 | XMS REPORT | Clinical Summary ---
:1965 Author Organization [facility] Address [address] [place] [address] Care Team Providers Name Role Phone Garo [...] Hypertension 02/24/2017 Intractable vomiting with nausea 02/24/2017 Moikp-as-zkzzsax kidney injury 02/24/2017 Diabetes mellitus 02/15/2017 Encounters Date Type Specialty Care Team Description 05/25/2018 Anesthesia Event Plastic Surgery Maggie Rawls MD Nguyen, Jacob 05/25/2018 Surgery Plastic Surgery Daquan Mary AND ARIS Arrington MD INDICATED PROCEDURES, RIGHT EYE 05/25/2018 Hospital Encounter Plastic Surgery Daquan Mary MD after 02/16/2018 Immunizations Name Administration Dates Next Due Influenza, Unspecified 02/11/2017 Pneumococcal, Unspecified [...] Vital Signs Vital Sign Reading Time Taken Comments Blood Pressure 136/61 05/25/2018 2:05 PM [facility] Pulse 58 05/25/2018 2:05 PM [facility] Temperature 37.2 C (98.9 F) 05/25/2018 2:05 PM [facility] Respiratory Rate 12 05/25/2018 2:05 PM [facility] Oxygen Saturation 96% 05/25/2018 2:05 PM [facility] [employer] Inhaled Oxygen Concentration - - Weight 97.2 kg (214 lb 3 oz) 05/25/2018 11:43 AM [facility] Height 190.5 cm (6' 3") 05/25/2018 11:43 AM [facility] Body Mass Index 26.77 05/25/2018 11:43 AM [facility] [employer] Plan of Treatment Health Maintenance Due Date Last Done Comments DIABETIC RETINAL EYE EXAM 1965 DIABETIC FOOT EXAM 1974 COLONOSCOPY SCREENING 2014 SHINGLES VACCINES (#1) 2014 INFLUENZA VACCINE 01/11/2019 02/11/2017 Procedures Procedure Name Priority Date/Time Associated Diagnosis Comments VITRECTOMY 05/25/2018 1:06 PM [facility] Vitreous hemorrhage of right eye (HCC) Special Needs REQ 1300 START POC PANEL 4 Routine 05/25/2018 12:09 PM [facility] [employer] after 02/16/2018 Results POC panel 4 (05/25/2018 12:09 PM [facility] [employer]) POC sodium 137 135 - 148 [facility] mmol/L [facility] POC potassium 4.3 3.5 - 5.0 [facility] mmol/L [facility] POC hematocrit 34 (L) 41 - 51 % [facility] Comment: HOSPITAL Meter ID: [id number] Felt Checker: Abisai Girard POC glucose 107 (H) 65 - 99 mg/dL [facility] Specimen Performing Organization Address City/State/Zipcode Phone Number [facility] DEPARTMENT OF PATHOLOGY AND [address] [place] [address] GENOMIC MEDICINE [facility] [address] [place] [address] after 02/16/2018 Insurance Payer Benefit Plan / Subscriber ID Effective Dates Phone Address Type Group BCBS ANTHEM BLUE CROSS xxxxxxxxxxxx 2017-Present PPO MEDICARE MEDICARE PART A xxxxxxxxxx 2016-Present [place], [place] Medicare AND B Advance Directives For more information, please contact: [phone] Type Date Recorded Patient Shuttler Explanation Advance Directives, Living Will 08/23/2017 11:14 AM and Medical Power of Family Program Specialist
--- OUTSIDE RECORDS SUMMARY | 2019-02-17 23:08 | XMS REPORT | Clinical Summary ---
:1965 Author Organization [facility] Address [address] [place] [address] Care Team Providers Name Role Phone Bala [...] on file Implants Implanted Type Area Lead Fabricator Device Shelf Model / Identifier Expiration Serial / Lot Date Cath Peritoneal Dyls 57cm 2cuf [id number] - Sn/A Catheter N/A: COVIDIEN: SHAZIA 02/17/2021 [id number] / Implanted: Qty: 1 on 06/14/2017 by Abdiel Ivory MD Dialysis Abdomen L N/A / Mcc [id number] Results Not on fileafter 02/16/2018 Insurance Payer Benefit Plan / Subscriber ID Type Phone Address Group BLUE CROSS/BLUE BCBS OS xxxxxxxxxxxx PPO [phone] [address] SHIELD POS/PPO/[place] [address] MEDICARE MEDICARE A B xxxxxxxxxx Medicare Advance Directives For more information, please contact:[address] [phone] Code Status Date Activated Date Inactivated Comments Full Code 06/08/2017 11:37 PM 06/15/2017 8:31 PM This code status was determined by: Patient
--- OUTSIDE RECORDS SUMMARY | 2019-02-17 23:10 | XMS REPORT | Continuity of Care Document ---
:1965 Author Organization [employer] Care Team Providers Name Role Phone [employer] Unavailable Unavailable Problems Problem Status Onset Classification [...] nausea and 17 [facility] - vomiting [place] [id number] Active 02/25/20 Finding 12/06/[address] [facility] [address] kidney injury 17 [facility] [place] HTN Active 02/25/20 Finding 12/06/[address] [facility] [place] Obesity Active 02/25/20 Finding 12/06/[address] [facility] [place] Diabetes mellitus Active 02/16/20 Finding 12/06/[address] [facility] [place] Chest pain Active 08/28/19 Finding 12/06/[address] [facility] 16 [facility] [place] Hyperglycemia Active Finding 12/06/[address] [facility] [facility] [place] Uncontrolled Active Finding 12/06/[address] [facility] [address] diabetes mellitus [facility] - [place] Renal Active Finding 12/06/[address] [facility] [address] insufficiency [facility] - [place] Vomiting Active Finding 12/06/[address] [facility] [facility] [place] Uncontrolled Active Finding 06/05/[address] [facility] [address] diabetes mellitus [facility] - [place] Medications Medication Details Route Status Patient Ordering Order Source Instructions Provider Date Levofloxacin DAILY ORAL Active Chavarria [facility] 2018 [facility] [place] Metronidazole THREE TIMES A ORAL Active Chavarria [facility] 2018 [facility] [place] Pantoprazole DAILY ORAL Active Chavarria [facility] 2018 [facility] [place] Amitriptyline AT BEDTIME ORAL Active [facility] 2018 [facility] [place] Ferric Citrate SEE COMMENT ORAL Active [facility] 2018 [facility] [place] Metolazone SEE COMMENT ORAL Active [facility] 2018 [facility] [place] Hydrocodone THREE TIMES A ORAL Active St. 7.5/Apap 325 DAY 2018 [facility] [place] Lactulose DAILY PRN For ORAL Active [facility] Constipation 2019 [facility] [place] Sennosides/Docus [...] [place] Metoclopramide THREE TIMES A Active Nunez [facility] Hcl DAY 2017 [facility] [place] Ondansetron Hcl Q6H PRN For Active [facility] Vomiting 2017 [facility] - [place] Furosemide TWICE DAILY Active [facility] 2017 [facility] [place] Zolpidem AT BEDTIME Active Alroumoh [facility] Tartrate 2017 [facility] [place] Aspirin [...] For Chest [place] Pain Amlodipine DAILY Active [facility] 2017 [facility] [place] Clopidogrel DAILY Active [facility] Bisulfate 2017 [facility] [place] Furosemide TWICE DAILY ORAL Active Strange [facility] 2017 [facility] [place] Hydralazine THREE TIMES A ORAL Active Alexandr [facility] DAY 2017 [facility] [place] Pantoprazole DAILY ORAL Active Alexandr [facility] Sodium 2017 [facility] [place] Metoprolol TWICE DAILY ORAL Active Alexandr [facility] Tartrate 2017 [facility] [place] Clopidogrel [...] 08/27/ [facility] 2016 [facility] [place] Guaifen TWICE DAILY ORAL Active Cameron 08/27/ [...] Metoprolol EVERY TWELVE ORAL Active Prezas 02/14/ [facility] Tartrate HOURS 2014 [facility] [place] Insulin Detemir AT BEDTIME SUB-Q Active Prezas 02/14/ [facility] 2014 [facility] [place] Insulin Detemir AT BEDTIME SUB-Q Active Prezas 02/04/ [facility] 2014 [facility] [place] Atorvastatin DAILY ORAL Active [facility] Calcium 2014 [facility] [place] Insulin Detemir AT BEDTIME SUB-Q Active 02/02/ [facility] 2014 [facility] [place] Lisinopril DAILY ORAL Active 02/02/ [facility] 2014 [facility] [place] Saxagliptin DAILY ORAL Active 02/02/ [facility] Hcl/Metformin 2014 [facility] Hcl [place] Saxagliptin DAILY Active 02/02/ [facility] Hcl/Metformin 2014 [facility] Hcl [place] Allergies, Adverse Reactions, Alerts Substance Category Reaction Severity Reaction Status Date Comments Source type Reported Sulfa Hives/Aiden Allergy to Active [facility] (Sulfonamid h Substance 9 [facility] - e [place] Antibiotics ) Immunizations Immunization Date Given Site Status Last Comments Source Updated Pneumovax 02/18/2017 completed [facility] [place] Results Order Name Results Value Reference Date Interpretation Comments Source Range Laboratory Bedside 114 65 - 120 12/05 [facility]. Studies Glucose [facility] [place] Laboratory Segmented 68 40 - 80 12/05 [facility]. Studies Neutrophils [facility] [place] Laboratory Monocytes 21 0 - 10 12/05 [facility]. [facility] [place] Laboratory Lymphocytes 9 15 - 42 12/05 [facility]. [facility] [place] Laboratory Eosinophils 2 0 - 3 12/05 [facility] [place] Laboratory Blood Blood 12/05 [facility]. Studies Morphology Morphology [facility] - Comment Comment [place] Laboratory Total 0.9 0.2 - 1.0 12/05 [facility]. Studies Bilirubin [facility] [place] Laboratory Sodium Level 137 136 - 145 12/05 [facility] [place] Laboratory Serum Total 7.4 6.4 - 8.2 12/05 [facility]. Studies Protein [facility] [place] Laboratory Potassium 4.6 3.5 - 5.1 12/05 [facility] Studies Level /2018 [facility] [place] Laboratory Lipase 197 73 - 393 12/05 [facility]. Studies /2018 [facility] [place] Laboratory Glucose Level 99 74 - 106 12/05 [facility]. Studies /2018 [facility] [place] Laboratory Globulin 4.1 2.3 - 3.5 12/05 [facility]. Studies /2018 [facility] [place] Laboratory Estimat 10 90 12/05 [facility]. Studies Glomerular /2018 [facility] - Filtration [place] Rate Laboratory Direct 0.5 0 - 0.2 12/05 [facility] Studies Bilirubin /2018 [facility] [place] Laboratory Creatinine 6.18 0.55 - 1.3 12/05 [facility]. Studies /2018 [facility] [place] Laboratory Chloride 100 98 - 107 12/05 [facility] Studies Level /2018 [facility] [place] Laboratory Carbon 25 21 - 32 12/05 [facility] Studies Dioxide Level /2018 [facility] [place] Laboratory Calcium Level 8.7 8.5 - 10.1 12/05 [facility] Studies /2018 [facility] [place] Laboratory Blood Urea 45 7 - 18 12/05 [facility] Studies Nitrogen /2018 [facility] [place] Laboratory Aspartate 55 15 - 37 12/05 [facility] Studies Amino Transf /2018 [facility] - (AST/SGOT) [place] Laboratory Alkaline 102 45 - 117 12/05 [facility] Studies Phosphatase /2018 [facility] [place] Laboratory Albumin/Globu 0.8 1.1 - 1.8 12/05 [facility] Studies mateo Ratio /2018 [facility] [place] Laboratory Albumin 3.3 3.4 - 5.0 12/05 [facility] Studies /2018 [facility] [place] Laboratory Alanine 36 12 - 78 12/05 [facility] Studies Aminotransfer /2018 [facility] - ase [place] (ALT/SGPT) Laboratory White Blood 4.4 4.3 - 10.9 12/05 [facility] Studies Count /2018 [facility] [place] Laboratory Red Cell 17.9 12.1 - 12/05 [facility] Studies Distribution 15.2 [facility] - Width [place] Laboratory Red Blood 3.19 4.33 - 12/05 [facility] Studies Count 5.43 /2018 [facility] [place] Laboratory Platelet 182 152 - 406 12/[address] [facility] [address] Studies Count [facility] - [place] Laboratory Neutrophils % 61.9 41.7 - 12/05 [facility] Studies 73.7 /2018 [facility] [place] Laboratory Monocytes % 16.7 3.3 - 12.3 12/05 [facility] Studies /2018 [facility] [place] Laboratory Mean Platelet 8.2 7.6 - 11.3 12/05 [facility] Studies Volume /2018 [facility] [place] Laboratory Mean 97.0 80 - 100 12/05 [facility]. Studies Corpuscular /2018 [facility] - Volume [place] Laboratory Mean 32.6 32.0 - 12/05 [facility]. Studies Corpuscular 36.0 [facility] - Hemoglobin [place] Concent Laboratory Mean 31.6 27.0 - 12/05 [facility] Studies Corpuscular 35.0 [facility] - Hemoglobin [place] Laboratory Lymphocytes % 14.4 15.3 - 12/05 [facility] Studies 44.8 [facility] - [place] Laboratory Hemoglobin 10.1 13.6 - 12/05 [facility]. Studies 17.9 [facility] - [place] Laboratory Hematocrit 31.0 39.6 - 12/05 [facility] Studies 49.0 [facility] [place] Laboratory Eosinophils % 5.6 0 - 4.4 12/05 [facility] Studies [facility] - [place] Laboratory Basophils % 1.4 0 - 1.3 12/05 [facility] Studies [facility] - [place] Laboratory Absolute 2.7 1.8 - 8.0 12/05 [facility]. Studies Neutrophil [facility] - [place] Laboratory Absolute 0.7 0.1 - 1.3 12/05 [facility] Studies Monocytes [facility] - (CBC) [place] Laboratory Absolute 0.6 0.7 - 4.9 12/05 [facility] Studies Lymphocytes [facility] - (CBC) [place] Laboratory Absolute 0.2 0 - 0.5 12/05 [facility] Studies Eosinophils [facility] - (CBC) [place] Laboratory Absolute 0.1 0 - 0.5 12/05 [facility] Studies Basophils [facility] - (CBC) [place] Laboratory Urine pH 6.0 12/[address] [facility] [address] Studies [facility] - [place] Laboratory Urine Total Urine Total 12/[address] [facility] [address] Studies Protein Protein /2018 [facility] [place] Laboratory Urine 1.020 12/[address] [facility] [address] Studies Specific /2018 [facility] [place] Laboratory Urine Nitrite Urine 12/[address] [facility] [address] Studies Nitrite [facility] - [place] Laboratory Urine Urine 12/04 [facility] Studies Leukocyte Leukocyte /2018 [facility] - Esterase Esterase [place] Laboratory Urine Ketones Urine 12/[address] [facility] [address] Studies Ketones [facility] - [place] Laboratory Urine Glucose Urine 12/[address] [facility] [address] Studies Glucose [facility] - [place] Laboratory Urine Blood Urine Blood 12/04 [facility] Studies /2018 [facility] [place] Laboratory Prothrombin 13.7 9.5 - 12.5 10/[address] [facility] [address] Studies Time /2018 [facility] [place] Laboratory INR 1.17 10/26 [facility]. Studies International [facility] - Normalized [place] Ratio Laboratory Activated 34.6 24.3 - 10/26 [facility]. Studies Partial 36.9 [facility] - Thromboplast [place] Time Laboratory Hepatitis C Hepatitis C 10/[address] [facility] [address] Studies Antibody Antibody /2018 [facility] [place] Laboratory Hepatitis C 0.07 10/16 [facility] Studies Ab /2018 [facility] - Signal/Cutoff [place] Ratio Laboratory Hepatitis B Hepatitis B 10/16 [facility] Studies Surface Surface /2018 [facility] - Antigen Antigen [place] Laboratory Hepatitis B Hepatitis B 10/[address] [facility] [address] Studies Surface Surface /2018 [facility] - Antibody Antibody [place] Laboratory Hepatitis B Hepatitis B 10/16 [facility] Studies Core Total Core Total [facility] - Antibody Antibody [place] Laboratory Troponin I 2.90 0.0 - 10/[address] [facility] [address] Studies 0.045 [facility] - [place] Laboratory Urine WBC <5 10/[address] [facility] [address] Studies /2018 [facility] [place] Laboratory Urine <5 10/16 [facility] Studies Squamous /2018 [facility] - Epithelial [place] Cells Laboratory Urine RBC Urine RBC 10/[address] [facility] [address] Studies /2018 [facility] - [place] Laboratory Urine Hyaline Urine 10/16 [facility] Studies Casts Hyaline /2018 [facility] - Casts [place] Laboratory Urine Fine Urine Fine 10/16 [facility] Studies Granular Granular /2018 [facility] - Casts Casts [place] Laboratory Urine Culture Urine 10/[address] [facility] Studies Reflexed Culture /2018 [facility] - Reflexed [place] Laboratory Urine <20 10/[address] [facility] Studies Bacteria /2018 [facility] [place] Laboratory Urine Urine 10/16 [facility] Studies Amorphous Amorphous [facility] - Sediment Sediment [place] Laboratory Urine 0.2 10/16 [facility] Studies Urobilinogen /2018 [facility] [place] Laboratory Urine Color Urine Color 10/[address] [facility] Studies /2018 [facility] [place] Laboratory Urine Urine 10/16 [facility] Studies Bilirubin Bilirubin /2018 [facility] [place] Laboratory Urine Urine 10/16 [facility] Studies Appearance Appearance [facility] - [place] Laboratory [id number] 10/[address] [facility] Studies Natriuretic [facility] - Peptide [place] Laboratory Rapid 0.07 0.0 - 10/16 [facility] Studies Troponin I 0.045 [facility] [place] Laboratory Magnesium 2.4 1.8 - 2.4 09/03 [facility] Studies Level /2018 [facility] [place] Laboratory Sodium Level 138 135 - 145 06/[address] [facility] [address] Studies /2016 [facility] [place] Laboratory Potassium 5.1 3.6 - 5.0 06/05 [facility] Studies Level /2016 [facility] [place] Laboratory Phosphorus 7.4 2.5 - 4.3 06/05 [facility] Studies Level /2016 [facility] [place] Laboratory Glucose Level 167 65 - 120 06/05 [facility] Studies /2016 [facility] [place] Laboratory Estimat 10 90 06/05 [facility]. Studies Glomerular [facility] - Filtration [place] Rate Laboratory Creatinine 6.17 0.61 - 06/[address] [facility] [address] Studies 1. [facility] - [place] Laboratory Chloride 104 101 - 111 06/05 [facility] Studies Level /2016 [facility] - [place] Laboratory Carbon 23 21 - 31 06/05 [facility] Studies Dioxide Level /2016 [facility] - [place] Laboratory Calcium Level 9.1 8.5 - 10.5 06/05 [facility] Studies /2016 [facility] - [place] Laboratory Blood Urea 87 6 - 20 06/05 [facility] Studies Nitrogen /2016 [facility] [place] Laboratory Albumin 3.4 3.2 - 5.5 06/[address] [facility] [address] Studies /2016 [facility] - [place] Laboratory Bedside 155 65 - 120 06/03 [facility] Studies Glucose /2016 [facility] - [place] Laboratory Urine Urine 06/01 [facility] Studies Immunoelectro Immunoelect /2016 [facility] - phoresis 24 rophoresis [place] Hr 24 Hr Laboratory Anti-Double 2 06/01 [facility] Studies Strand DNA /2016 [facility] - Antibody [place] Laboratory Anti-Proteina <1.0 06/01 [facility] Studies se 3 (c-ANCA) /2016 [facility] [place] Laboratory Anti-Myeloper <1.0 06/01 [facility] Studies oxidase Ab /2016 [facility] - (p-ANCA) [place] Laboratory Complement C4 31 06/01 [facility] Studies /2016 [facility] - [place] Laboratory Complement C3 127 06/01 [facility] Studies /2016 [facility] [place] Laboratory Thyroid 2.92 0.34 - 06/01 [facility] Studies Stimulating 5.60 [facility] - Hormone (TSH) [place] Laboratory Anti-Nuclear Anti-Nuclea 05/30 [facility] Studies Antibody r Antibody /2016 [facility] - Titer Titer [place] Laboratory Anti-Nuclear Anti-Nuclea 05/30 [facility] Studies Antibody r Antibody /2016 [facility] - Pattern Pattern [place] Laboratory Anti-Nuclear Anti-Nuclea 05/30 [facility] Studies Antibody r Antibody /2016 [facility] - Screen Screen [place] Laboratory Anti-Nuclear Anti-Nuclea 05/30 [facility] Studies Antibody r Antibody /2016 [facility] - Pattern 2 Pattern 2 [place] Laboratory Hepatitis C Hepatitis C 05/30 [facility] Studies Antibody Antibody /2016 [facility] - [place] Laboratory Hepatitis C 0.03 05/30 [facility] Studies Ab /2016 [facility] - Signal/Cutoff [place] Ratio Laboratory Hepatitis B Hepatitis B 05/30 [facility] Studies Surface Surface /2016 [facility] - Antigen Antigen [place] Laboratory Hepatitis B Hepatitis B 05/30 [facility] Studies Surface Ag Surface Ag /2016 [facility] - Confirmation Confirmatio [place] n Laboratory Hepatitis B Hepatitis B 05/30 [facility] Studies Core IgM Core IgM /2016 [facility] - Antibody Antibody [place] Laboratory Hepatitis A Hepatitis A 05/30 [facility] Studies IgM Antibody IgM /2016 [facility] - Antibody [place] Laboratory HIV-1 RNA, HIV-1 RNA, 05/30 [facility] Studies Qualitat Qualitat /2017 [facility] - (TMA) Comment (TMA) [place] Comment Laboratory HIV (1&2) Ag HIV (1&2) 05/30 [facility] Studies and Ab, 4th Ag and Ab, /2016 [facility] - Generation 4th [place] Generation Laboratory HIV (1&2) Ab HIV (1&2) 05/30 [facility] Studies Differential Ab /2016 [facility] - Comment Differentia [place] l Comment Laboratory Creatine 162 22 - 269 05/30 [facility] Studies Kinase /2016 [facility] [place] Laboratory Vitamin B12 173 180 - 914 05/30 [facility] Studies Level /2016 [facility] [place] Laboratory Total 0.4 0.3 - 1.2 05/30 [facility] Studies Bilirubin /2016 [facility] - [place] Laboratory Serum Total 6.5 6.0 - 8.3 05/30 [facility] Studies Protein /2016 [facility] - [place] Laboratory Globulin 3.1 2.3 - 3.5 05/30 [facility] Studies /2016 [facility] - [place] Laboratory Ferritin 337.4 23.9 - 05/30 [facility] Studies 336.2 /2016 [facility] - [place] Laboratory Aspartate 12 10 - 42 05/30 [facility] Studies Amino Transf /2016 [employer] - (AST/SGOT) [place] Laboratory Alkaline 54 42 - 121 05/30 [facility] Studies Phosphatase /2016 [facility] - [place] Laboratory Albumin/Globu 1.1 1.1 - 1.8 05/30 [facility]. Studies mateo Ratio /2016 [facility] - [place] Laboratory Alanine 10 10 - 60 05/30 [facility] Studies Aminotransfer /2016 [facility] - ase [place] (ALT/SGPT) Laboratory White Blood 7.9 4.3 - 10.9 05/30 [facility] Studies Count /2016 [facility] - [place] Laboratory Red Cell 15.2 12.1 - 05/30 [facility] Studies Distribution 15.2 /2016 [facility] - Width [place] Laboratory Red Blood 2.75 4.33 - 05/30 [facility] Studies Count 5.43 /2016 [facility] - [place] Laboratory Platelet 314 152 - 406 05/30 [facility] Studies Count /2016 [facility] - [place] Laboratory Neutrophils % 56.6 41.7 - 05/[address] [facility] Studies 73.7 /2016 [facility] - [place] Laboratory Monocytes % 12.0 3.3 - 12.3 05/[address] [facility] Studies /2016 [facility] - [place] Laboratory Mean Platelet 7.1 7.6 - 11.3 05/[address] [facility] Studies Volume /2016 [facility] - [place] Laboratory Mean 85.4 80 - 100 05/[address] [facility] Studies Corpuscular /2016 [facility] - Volume [place] Laboratory Mean 34.1 32.0 - 05/[address] [facility] Studies Corpuscular 36.0 /2016 [facility] - Hemoglobin [place] Concent Laboratory Mean 29.1 27.0 - 05/[address] [facility] Studies Corpuscular 35.0 /2016 [facility] - Hemoglobin [place] Laboratory Lymphocytes % 25.1 15.3 - 05/[address] [facility] Studies 44.8 /2016 [facility] - [place] Laboratory Hemoglobin 8.0 13.6 - 05/[address] [facility] Studies 17.9 /2016 [facility] - [place] Laboratory Hematocrit 23.5 39.6 - 05/[address] [facility] Studies 49.0 /2016 [facility] - [place] Laboratory Eosinophils % 5.7 0 - 4.4 05/[address] [facility] Studies [facility] - [place] Laboratory Basophils % 0.6 0 - 1.3 05/[address] [facility] Studies /2016 [facility] - [place] Laboratory Absolute 4.5 1.8 - 8.0 05/[address] [facility] Studies Neutrophil [facility] - [place] Laboratory Absolute 0.9 0.1 - 1.3 05/[address] [facility] Studies Monocytes [facility] - (CBC) [place] Laboratory Absolute 2.0 0.7 - 4.9 05/[address] [facility] Studies Lymphocytes [facility] - (CBC) [place] Laboratory Absolute 0.4 0 - 0.5 05/[address] [facility] Studies Eosinophils [facility] - (CBC) [place] Laboratory Absolute 0.0 0 - 0.5 05/[address] [facility] Studies Basophils [facility] - (CBC) [place] Laboratory Urine WBC <5 05/[address] [facility] Studies [facility] - [place] Laboratory Urine <5 05/[address] [facility] Studies Squamous [facility] - Epithelial [place] Cells Laboratory Urine RBC Urine RBC 05/[address] [facility] Studies [facility] - [place] Laboratory Urine Culture Urine 05/[address] [facility] Studies Reflexed Culture [facility] - Reflexed [place] Laboratory Urine <20 05/29 [facility] Studies Bacteria /2016 [facility] - [place] Laboratory Urine Urine 05/29 [facility] Studies Amorphous Amorphous /2016 [facility] - Sediment Sediment [place] Laboratory Direct <0.1 0 - 0.2 05/29 [facility] Studies Bilirubin /2016 [facility] - [place] Laboratory Amylase Level 70 28 - 100 05/[address] [facility] Studies /2016 [facility] - [place] Laboratory Lipase 95 22 - 51 05/[address] [facility] Studies /2016 [facility] - [place] Laboratory Hemoglobin 7.3 4 - 6.0 05/11 [facility] Studies A1c /2016 [facility] - [place] Laboratory Triglycerides 118 35 - 160 05/11 [facility] Studies Level /2016 [facility] - [place] Laboratory Magnesium 2.2 1.8 - 2.5 05/11 [facility] Studies Level /2016 [facility] - [place] Laboratory LDL 81 05/11 [facility] Studies Cholesterol, /2016 [facility] - Calculated [place] Laboratory HDL 26 27 - 67 05/11 [facility] Studies Cholesterol /2016 [facility] - [place] Laboratory Cholesterol/H 5.04 05/11 [facility] Studies DL Ratio /2016 [facility] - [place] Laboratory Cholesterol 131 05/11 [facility] Studies Level /2016 [facility] - [place] Laboratory Troponin I <0.03 05/11 [facility] Studies /2016 [facility] - [place] Laboratory Glomerular <1.0 05/10 [facility] Studies Basement /2016 [facility] - Membrane IgG [place] Ab Laboratory Urine pH 6.0 05/[address] [facility] Studies /2016 [facility] - [place] Laboratory Urine Total Urine Total 05/10 [facility] Studies Protein Protein [facility] - [place] Laboratory Urine 1.020 05/10 [facility] Studies Specific /2016 [facility] - [place] Laboratory Urine Nitrite Urine 05/10 [facility] Studies Nitrite [facility] - [place] Laboratory Urine Urine 05/10 [facility] Studies Leukocyte Leukocyte [facility] - Esterase Esterase [place] Laboratory Urine Ketones Urine 05/10 [facility] Studies Ketones [facility] - [place] Laboratory Urine Glucose Urine 05/10 [facility] Studies Glucose /2016 [facility] - [place] Laboratory Urine Blood Urine Blood 05/10 [facility] Studies /2016 [facility] - [place] Laboratory Creatine 11.3 0.3 - 4.0 05/[address] [facility] Studies Kinase MB [facility] - [place] Laboratory B-Type 594 05/[address] [facility] Studies Natriuretic [facility] - Peptide [place] Laboratory Rapid <0.03 05/[address] [facility] Studies Troponin I [facility] - [place] Laboratory Prothrombin 11.3 9.5 - 12.5 05/[address] [facility] Studies Time [facility] - [place] Laboratory INR 0.96 05/[address] [facility] Studies International /2016 [facility] - Normalized [place] Ratio Laboratory Activated 28.5 24.3 - 05/[address] [facility] Studies Partial 36.9 [facility] - Thromboplast [...] Source Temperature Oral (F) 97.8 F 12/06/[address] [facility] - [place] Heart Rate 70 12/06/[address] [facility] - [place] Respitory Rate 16 12/06/[address] [facility] - [place] Systolic (mm Hg) 159 12/06/[address] [facility] [place] Diastolic (mm Hg) 71 12/06/2018 [facility] [place] Height 75 12/05/2018 [facility] [place] Weight 213 12/05/[address] [facility] [address] [place] - [place] Temperature Oral (F) 97.5 F 06/05/[address] [facility] - [place] Heart Rate 66 06/05/[address] [facility] - [place] Respitory Rate 18 06/05/[address] [facility] [place] Systolic (mm Hg) 131 06/05/[address] [facility] - [place] Diastolic (mm Hg) 62 06/05/[address] [facility] [place] - [place] Height 75 06/05/[address] [facility] - [place] Weight 228 06/05/[address] [facility] [place] - [place] Encounters Location Location Encounter Encounter Reason Attending ADM DC Status Source Details Type Number For Provider Date Date Visit DARRON JordanTristan Registered [id number] 04/11 [facility] [facility] [id number] 04/[address] [facility] [place] [place] [facility] Reg[facility] [id number] 04/[address] [facility] [place] [place] [facility] Reg[facility] [id number] 04/[address] [facility] [place] [place] [facility] Dep[facility]ed [id number] 04/27 04/[address] [facility] [place] Surgical 73 /2016 [facility] [place] [facility] [id number] 05/10 05/[address] [facility] [place]patient 99 /2016 [facility] [place] [facility] [id number] 06/01 06/[address] [facility] [place] 75 /2016 [facility] [place] [facility] [id number] 09/03 09/[address] [facility] [place] [place] [facility] [id number] 09/12 09/[address] [facility] [place] Emergency 37 [facility] [place] [facility] [id number] 10/16 10/[address] [facility] [place] [place] [facility] [id number] 10/26 10/[address] [facility] [place] 48 [facility] [place] [facility] [id number] 11/29 11/[address] [facility] [place] Emergency [facility] [place] [facility] [id number] 12/04 12/[address] [facility] [place] Inpatient 84 /2018 [facility] [place] [facility] Procedures Procedure Code Date Perfomer Comments Source Gram Stain [id number] 12/05/19 [facility] 19 - [place] Culture & [id number] 12/05/19 [facility] Sensitivity 19 - [place] Abdomen & Pelvis [id number] 12/05/[address] [facility] Wo Contrast 19 - [place] Knee Left 3 View [id number] 11/30/19 [facility] 19 - [place] PLAIN RADIOGRAPHY [id number] 10/27/19 [facility] OF MULT COR ART 19 - [place] USING OTH CONTRAST MEASURE OF [id number] 10/27/19 [facility] CARDIAC SAMPL & 19 - [place] PRESSURE, L HEART, PERC APPROACH L HRT [id number] 10/27/19 [facility] ARTERY/VENTRICLE 19 - [place] ANGIO Chest Single View [id number] 10/17/19 [facility] 19 - [place] [id number] 10/17/19 [facility] 19 - [place] HEMODIALYSIS ONE [id number] 10/17/19 [facility] EVALUATION 19 - [place] Head Brain Wo [id number] 09/13/19 [facility] Cont 19 - [place] Chest Pa And Lat [id number] 06/02/20 [facility] (2 Views) 17 - [place] Abdomen & Pelvis [id number] 05/29/20 [facility] Wo Contrast 17 - [place] REMOVAL OF [id number] 04/27/20 [facility] INFUSION DEVICE 17 - [place] FROM UPPER VEIN, OPEN APPROACH REMOVAL TUNNELED [id number] 04/27/20 [facility] CV CATH 17 - [place] Assessment and Plan No Data Provided for This Section Plan of Care Plan of Care Date Source Instructions 12/06/2018 [facility] - [place] Gastritis, Adult, Axfk-qt-Risk Abdominal Pain, Adult, Btjp-ws-Pjoy Duodenitis Pantoprazole tablets Levofloxacin tablets Metronidazole tablets [...] Pneumonia Vaccine Given: Date Given: Instructions 12/06/2018 DARRON Fischer Gastritis, Adult, Kqgz-as-Hrme Abdominal Pain, Adult, Qnxw-ic-Pgyz Duodenitis Pantoprazole tablets Levofloxacin tablets Metronidazole tablets [...] Pneumonia Vaccine Given: Date Given: Instructions 06/05/2017 DARRON Fischer Peritoneal Dialysis Peritoneal Dialysis Diet Instructions 06/05/2017 DARRON Fischer Peritoneal Dialysis Peritoneal Dialysis Diet Social History Social History Date Source Query Response Date Recorded Comment 12/06/2018 DARRON Fischer Alcohol Use? No December 04, 2018 4:14am CD- Drugs? No December 04, 2018 4:14am Query Response Start Date Stop Date Smoking Status Never smoker Family History Value Date Source Query Response Instance Date Recorded Comment 12/06/2018 DARRON Fischer Nurses notes TB. Father December 04, 2018 4:14am Medical History Heart disease Diabetes Mother December 04, 2018 4:14am Medical History Heart disease Cancer Other (see notes) Father December 04, 2018 4:14am Nurses notes TB. May 29, 2017 4:43pm Medical History Heart disease Cancer Other (see notes) October 06, 2015 1:47pm Query Response Instance Date Recorded Comment 06/05/2017 DARRON Fischer Nurses notes TB. Father May 29, 2017 [...] Advance Directive Response Recorded Date/Time 12/06/2018 DARRON Ng - Does Patient Have Living Will [place] No December 06, 2018 5:34am Durable Power of Fire Officer for Health Care No December 04, 2018 4:14am Would you like additional information No December 04, 2018 4:14am Advance Directives Advance Directives Advance Directive Response Recorded Date/Time 06/05/2017 DARRON Ng - Does Patient Have Living Will [place] No June 05, 2017 5:30am Durable Power of Fire Officer for Health Care No May 29, 2017 4:43pm Would you like additional information No May 29, 2017 2:37pm Functional Status No Data Provided for This Section
--- OUTSIDE RECORDS SUMMARY | 2019-02-17 23:11 | XMS REPORT ---
:1965 [facility] Organization [facility] Address [address] [place] [address] [address] [place] [address] Care Team Providers Name Role Phone DWIGHT MCHUGH Unavailable Unavailable Problems This patient has no known problems. Allergies, Adverse Reactions, Alerts This patient has no known allergies or adverse reactions. Medications This patient has no known medications. Encounters Start End Encounter Admission Attending Care Care Encounter Date/Time Date/Time Type Type Clinicians Facility Department ID 2019-01-31 Outpatient [facility] CAR [id number] 08:52:18 2018-12-24 Inpatient U [facility] CAR [id number] 05:31:00 2018-12-20 Outpatient [facility] CAR 7505 10:46:33 2018-12-19 Inpatient U [facility] CAR 9190 19:45:00 2019-01-18 2019-01-18 Inpatient E [facility] CAR [id number] 17:00:00 14:27:00 2018-12-19 2018-12-19 Outpatient [facility] CAR [id number] 16:05:00 16:05:00 2018-10-31 2018-10-31 Outpatient [facility] CAR [id number] 10:40:00 10:40:00 Results Test Description Test Time Test Comments Text Results Atomic Results Result Comments POCT-GLUCOSE METER 2017-06-15 17:36:00 Test Item Value Reference Range Comments POC-GLUCOSE METER (BEAKER) (test 243 mg/dL 70-110 TESTED AT [facility] [address] [facility] gnkb=4274) [facility] [address] BASIC METABOLIC [id number] 13:51:00 Test Item Value Reference Range Comments SODIUM (BEAKER) (test 139 meq/L 135-148 hspa=549) POTASSIUM (BEAKER) (test 3.4 meq/L 3.6-5.5 ymet=743) CHLORIDE (BEAKER) (test 101 meq/L 98-106 zvdy=574) CO2 (BEAKER) (test 29 meq/L 20-29 vlil=881) BLOOD UREA NITROGEN 11 mg/dL 10-26 (BEAKER) (test ziyw=796) CREATININE (BEAKER) (test 2.10 mg/dL 0.50-1.20 iyut=716) GLUCOSE RANDOM (BEAKER) 157 mg/dL 70-110 (test hfxk=774) CALCIUM (BEAKER) (test 8.6 mg/dL 8.5-10.5 kpix=016) EGFR (BEAKER) (test 33 mL/min/1.73 sq m ESTIMATED GFR IS NOT txia=7105) ACCURATE CREATININE CLEARANCE IN PREDICTING GLOMERULAR FILTRATION RATE. ESTIMATED GFR IS NOT APPLICABLE FOR DIALYSIS PATIENTS. [id number] 13:44:00 Test Item Value Reference Range Comments MAGNESIUM (BEAKER) (test djxl=660) 1.9 mg/dL 1.5-3.0 CBC W/PLT COUNT & AUTO [id number] 13:34:00 Test Item Value Reference Range Comments WHITE BLOOD CELL COUNT (BEAKER) (test leth=467) 6.8 K/ L 4.0-10.0 RED BLOOD CELL COUNT (BEAKER) (test xhor=490) 2.92 M/ L 4.20-5.80 HEMOGLOBIN (BEAKER) (test wzja=492) 8.4 GM/DL 13.0-16.8 HEMATOCRIT (BEAKER) (test licz=518) 25.5 % 40.0-50.0 MEAN CORPUSCULAR VOLUME (BEAKER) (test sjiv=490) 87.4 fL 82.0-98.0 MEAN CORPUSCULAR HEMOGLOBIN (BEAKER) (test 28.7 pg 27.0-33.0 naub=079) MEAN CORPUSCULAR HEMOGLOBIN CONC (BEAKER) (test 32.8 GM/DL 32.0-36.0 agou=471) RED CELL DISTRIBUTION WIDTH (BEAKER) (test 14.7 % 10.3-14.2 lfbk=977) PLATELET COUNT (BEAKER) (test zdbl=014) 299 K/CU MM 150-430 MEAN PLATELET VOLUME (BEAKER) (test lnpj=798) 6.9 fL 6.5-10.5 NUCLEATED RED BLOOD CELLS (BEAKER) (test 0 /100 WBC 0-0 uqqb=776) NEUTROPHILS RELATIVE PERCENT (BEAKER) (test 65 % ghku=088) LYMPHOCYTES RELATIVE PERCENT (BEAKER) (test 18 % pajx=046) MONOCYTES RELATIVE PERCENT (BEAKER) (test 14 % rsiz=591) EOSINOPHILS RELATIVE PERCENT (BEAKER) (test 3 % czgb=311) BASOPHILS RELATIVE PERCENT (BEAKER) (test 1 % cynk=204) NEUTROPHILS ABSOLUTE COUNT (BEAKER) (test 4.40 K/ L 1.80-8.00 mqmw=474) LYMPHOCYTES ABSOLUTE COUNT (BEAKER) (test 1.20 K/ L 1.48-4.50 hnly=082) MONOCYTES ABSOLUTE COUNT (BEAKER) (test 1.00 K/ L 0.00-1.30 tsiu=419) EOSINOPHILS ABSOLUTE COUNT (BEAKER) (test 0.20 K/ L 0.00-0.50 swwn=333) BASOPHILS ABSOLUTE COUNT (BEAKER) (test 0.00 K/ L 0.00-0.20 couu=816) POCT-GLUCOSE [id number] 11:28:00 Test Item Value Reference Range Comments POC-GLUCOSE METER (BEAKER) 147 mg/dL 70-110 TESTED AT [address] (test xhql=6814) [facility] [address] POCT-GLUCOSE [id number] 06:04:00 Test Item Value Reference Range Comments POC-GLUCOSE METER (BEAKER) 137 mg/dL 70-110 TESTED AT [address] (test ueda=0007) [facility] [address] POCT-GLUCOSE [id number] 21:01:00 Test Item Value Reference Range Comments POC-GLUCOSE METER (BEAKER) 138 mg/dL 70-110 TESTED AT [address] (test vayo=0039) [facility] [address] POCT-GLUCOSE [id number] 16:06:00 Test Item Value Reference Range Comments POC-GLUCOSE METER (BEAKER) 167 mg/dL 70-110 TESTED AT [address] (test qymp=2300) [facility] [address] POCT-GLUCOSE [id number] 12:49:00 Test Item Value Reference Range Comments POC-GLUCOSE METER (BEAKER) 144 mg/dL 70-110 TESTED AT [address] (test rhce=0506) [place] [address] [id number] 10:27:00 Test Item Value Reference Range Comments POC-CREATININE (BEAKER) 3.6 mg/dL 0.6-1.3 TESTED AT [address] (test lilo=7954) [place] [address] POC-EGFR (BEAKER) (test 18 mL/min/1.73M2 guhb=4738) [id number] 10:27:00 Test Item Value Reference Range Comments POC-SODIUM (BEAKER) (test 138 meq/L 135-148 TESTED AT [address] hdnv=2358) [place] [address] [id number] 10:27:00 Test Item Value Reference Range Comments POC-POTASSIUM (BEAKER) 3.6 meq/L 3.6-5.5 TESTED AT [address] (test kvqf=4549) [place] [address] [id number] 10:27:00 Test Item Value Reference Range Comments POC-BUN (BEAKER) (test 20 mg/dL 7-21 TESTED AT [address] swnw=6462) [place] [address] [id number] 10:27:00 Test Item Value Reference Range Comments POC-CHLORIDE (BEAKER) (test 97 meq/L 98-107 TESTED AT [address] kovq=8038) [place] [address] [id number] 10:27:00 Test Item Value Reference Range Comments POC-GLUCOSE (BEAKER) (test 123 mg/dL 70-110 TESTED AT [address] nrqj=8697) [place] [address] [id number] 10:27:00 Test Item Value Reference Range Comments POC-HEMATOCRIT (BEAKER) (test 24 % 40-50 TESTED AT [address] dclz=3214) [place] [address] [id number] 10:27:00 Test Item Value Reference Range Comments POC-HEMOGLOBIN (BEAKER) 8.2 g/dL 13.0-16.8 TESTED AT [address] (test obnl=3618) [facility] [address] [id number] 10:27:00 Test Item Value Reference Range Comments POC-TCO2 (BEAKER) (test 30 meq/L 22-29 TESTED AT [address] rcfq=3023) [facility] [address] POCT-GLUCOSE [id number] 06:08:00 Test Item Value Reference Range Comments POC-GLUCOSE METER (BEAKER) 163 mg/dL 70-110 TESTED AT [address] (test vohu=1330) [facility] [address] POCT-GLUCOSE [id number] 21:07:00 Test Item Value Reference Range Comments POC-GLUCOSE METER (BEAKER) 132 mg/dL 70-110 TESTED AT [address] (test usiv=2545) [facility] [address] POCT-GLUCOSE [id number] 12:58:00 Test Item Value Reference Range Comments POC-GLUCOSE METER (BEAKER) 178 mg/dL 70-110 TESTED AT [address] (test tonj=6237) [facility] [address] POCT-GLUCOSE [id number] 05:29:00 Test Item Value Reference Range Comments POC-GLUCOSE METER (BEAKER) 171 mg/dL 70-110 TESTED AT [address] (test nrfg=3659) [facility] [address] POCT-GLUCOSE [id number] 22:03:00 Test Item Value Reference Range Comments POC-GLUCOSE METER (BEAKER) 249 mg/dL 70-110 TESTED AT [address] (test kish=0184) [facility] [address] POCT-GLUCOSE [id number] 16:45:00 Test Item Value Reference Range Comments POC-GLUCOSE METER (BEAKER) 213 mg/dL 70-110 TESTED AT [address] (test twyh=2411) [facility] [address] [id number] 16:43:00 Test Item Value Reference Range Comments THYROID STIMULATING HORMONE (BEAKER) (test 2.09 uIU/mL 0.35-5.50 vdkt=847) COMPREHENSIVE METABOLIC [id number] 16:24:00 Test Item Value Reference Range Comments TOTAL PROTEIN (BEAKER) 7.2 gm/dL 6.0-8.5 (test tabq=620) ALBUMIN (BEAKER) (test 3.5 g/dL 3.5-5.0 xoax=3638) ALKALINE PHOSPHATASE 67 U/L 30-115 (BEAKER) (test gprd=160) BILIRUBIN TOTAL (BEAKER) 0.3 mg/dL 0.1-1.2 (test kodn=225) SODIUM (BEAKER) (test 136 meq/L 135-148 mrbz=528) POTASSIUM (BEAKER) (test 4.1 meq/L 3.6-5.5 thep=750) CHLORIDE (BEAKER) (test 98 meq/L 98-106 czsu=884) CO2 (BEAKER) (test 26 meq/L 20-29 navl=334) BLOOD UREA NITROGEN 32 mg/dL 10-26 (BEAKER) (test atik=158) CREATININE (BEAKER) (test 4.40 mg/dL 0.50-1.20 avqh=611) GLUCOSE RANDOM (BEAKER) 212 mg/dL 70-110 (test hbsx=762) CALCIUM (BEAKER) (test 9.0 mg/dL 8.5-10.5 pmcu=280) AST (SGOT) (BEAKER) (test 14 U/L 5-40 gdup=736) ALT (SGPT) (BEAKER) (test 4 U/L 5-50 qpmi=643) EGFR (BEAKER) (test 14 mL/min/1.73 sq m ESTIMATED GFR IS NOT zcuq=9462) ACCURATE CREATININE CLEARANCE IN PREDICTING GLOMERULAR FILTRATION RATE. ESTIMATED GFR IS NOT APPLICABLE FOR DIALYSIS PATIENTS. CBC W/PLT COUNT & AUTO [id number] 16:02:00 Test Item Value Reference Range Comments WHITE BLOOD CELL COUNT (BEAKER) (test kezu=461) 6.9 K/ L 4.0-10.0 RED BLOOD CELL COUNT (BEAKER) (test myce=084) 2.95 M/ L 4.20-5.80 HEMOGLOBIN (BEAKER) (test dfqe=988) 8.6 GM/DL 13.0-16.8 HEMATOCRIT (BEAKER) (test gvzt=423) 25.9 % 40.0-50.0 MEAN CORPUSCULAR VOLUME (BEAKER) (test qule=593) 87.9 fL 82.0-98.0 MEAN CORPUSCULAR HEMOGLOBIN (BEAKER) (test 29.0 pg 27.0-33.0 kgsw=561) MEAN CORPUSCULAR HEMOGLOBIN CONC (BEAKER) (test 33.0 GM/DL 32.0-36.0 txlr=002) RED CELL DISTRIBUTION WIDTH (BEAKER) (test 15.0 % 10.3-14.2 pecx=080) PLATELET COUNT (BEAKER) (test uwen=529) 330 K/CU MM 150-430 MEAN PLATELET VOLUME (BEAKER) (test vtzq=660) 7.1 fL 6.5-10.5 NUCLEATED RED BLOOD CELLS (BEAKER) (test 0 /100 WBC 0-0 hipz=372) NEUTROPHILS RELATIVE PERCENT (BEAKER) (test 66 % zrwt=888) LYMPHOCYTES RELATIVE PERCENT (BEAKER) (test 16 % rmuw=374) MONOCYTES RELATIVE PERCENT (BEAKER) (test 12 % nyod=842) EOSINOPHILS RELATIVE PERCENT (BEAKER) (test 5 % sbhi=430) BASOPHILS RELATIVE PERCENT (BEAKER) (test 1 % ykfz=676) NEUTROPHILS ABSOLUTE COUNT (BEAKER) (test 4.60 K/ L 1.80-8.00 jhih=277) LYMPHOCYTES ABSOLUTE COUNT (BEAKER) (test 1.10 K/ L 1.48-4.50 hwli=224) MONOCYTES ABSOLUTE COUNT (BEAKER) (test 0.80 K/ L 0.00-1.30 vyfz=187) EOSINOPHILS ABSOLUTE COUNT (BEAKER) (test 0.30 K/ L 0.00-0.50 gawb=040) BASOPHILS ABSOLUTE COUNT (BEAKER) (test 0.10 K/ L 0.00-0.20 kefl=020) PROTHROMBIN [id number] 16:01:00 Test Item Value Reference Range Comments PROTIME (BEAKER) (test bhgr=007) 10.3 seconds 9.3-12.0 INR (BEAKER) (test buwz=641) 1.0 <=5.9 RECOMMENDED COUMADIN/WARFARIN INR THERAPY RANGESSTANDARD DOSE: 2.0 - 3.0 Includes: PROPHYLAXIS forvenous thrombosis, systemic embolization; TREATMENT for venous thrombosis and/or pulmonary embolus.HIGH RISK: Target INR is 2.5-3.5 for patients with mechanical heart valves.POCT-GLUCOSE [id number] 12:01:00 Test Item Value Reference Range Comments POC-GLUCOSE METER (BEAKER) 211 mg/dL 70-110 TESTED AT [address] (test dvkw=5452) [facility] [address] POCT-GLUCOSE [id number] 06:08:00 Test Item Value Reference Range Comments POC-GLUCOSE METER (BEAKER) 191 mg/dL 70-110 TESTED AT [address] (test cazc=8526) [facility] [address] POCT-GLUCOSE [id number] 21:28:00 Test Item Value Reference Range Comments POC-GLUCOSE METER (BEAKER) 233 mg/dL 70-110 TESTED AT [address] (test uttv=5785) [facility] [address] POCT-GLUCOSE [id number] 16:19:00 Test Item Value Reference Range Comments POC-GLUCOSE METER (BEAKER) 290 mg/dL 70-110 TESTED AT [address] (test ewwb=5785) [facility] [address] POCT-GLUCOSE [id number] 13:33:00 Test Item Value Reference Range Comments POC-GLUCOSE METER (BEAKER) 186 mg/dL 70-110 TESTED AT [address] (test onku=8848) [facility] [address] POCT-GLUCOSE [id number] 06:27:00 Test Item Value Reference Range Comments POC-GLUCOSE METER (BEAKER) 204 mg/dL 70-110 TESTED AT [address] (test qzuc=4988) [facility] [address] POCT-GLUCOSE [id number] 21:40:00 Test Item Value Reference Range Comments POC-GLUCOSE METER (BEAKER) 267 mg/dL 70-110 TESTED AT [address] (test bdvh=8670) [facility] [address] POCT-GLUCOSE [id number] 17:32:00 Test Item Value Reference Range Comments POC-GLUCOSE METER (BEAKER) 221 mg/dL 70-110 TESTED AT [address] (test eaen=6202) [facility] [address] HEPATITIS B SURFACE [id number] 14:21:00 Test Item Value Reference Range Comments HEPATITIS B SURFACE ANTIBODY (BEAKER) (test < mIU/mL <8.0 wgjq=997) HEPATITIS B CORE ANTIBODY, [id number] 14:15:00 Test Item Value Reference Range Comments HEPATITIS B CORE TOTAL ANTIBODY (BEAKER) (test Nonreactive Nonreactive cqgp=543) POCT-GLUCOSE [id number] 12:18:00 Test Item Value Reference Range Comments POC-GLUCOSE METER (BEAKER) 193 mg/dL 70-110 TESTED AT [address] (test poyw=8737) [facility] [address] RAD, CHEST, 1 VIEW, NON [id number] 08:49:00Reason for exam:->for outpatient HD placementShould this [...] Hammer Verified Date/Time: 06/10/2017 08:49:42 Reading Location: [facility] Radiology Reading Room Electronically signed by: SACHI HAMMER on 2016 08:49 AMPOCT-GLUCOSE [id number] 06:53:00 Test Item Value Reference Range Comments POC-GLUCOSE METER (BEAKER) 177 mg/dL 70-110 TESTED AT [address] (test schs=6851) [facility] [address] POCT-GLUCOSE [id number] 22:10:00 Test Item Value Reference Range Comments POC-GLUCOSE METER (BEAKER) 109 mg/dL 70-110 TESTED AT [address] (test flcy=7369) [facility] [address] HEPATITIS B SURFACE [id number] 20:18:00 Test Item Value Reference Range Comments HEPATITIS B SURFACE ANTIGEN (2) (BEAKER) (test Nonreactive Nonreactive gleu=8135) POCT-GLUCOSE [id number] 17:08:00 Test Item Value Reference Range Comments POC-GLUCOSE METER (BEAKER) 223 mg/dL 70-110 TESTED AT [facility] [address] [facility] (test psnu=8299) [facility] [address] POCT-GLUCOSE [id number] 12:47:00 Test Item Value Reference Range Comments POC-GLUCOSE METER (BEAKER) 200 mg/dL 70-110 TESTED AT [facility] [address] [facility] (test ekqi=1813) [facility] [address] ANG, TUNNELED CATHETER [id number] 12:13:00Reason for exam:->renal failureFINAL REPORT Tunneled central [...] the patient's medical record by the nurse. Acls Specialist: Onesimo Lopez MD. Mail Sorter: None. Approach: Right internal jugular vein Estimated [...] needle into the right atrium. A 4 Georgian micropuncture sheath was placed. A subcutaneous tunnel was created in the right anterior chest wall by blunt dissection. A 19 cm tipped cuff 15.5 Georgian Duraflow 2 catheter was brought through the [...] MDReport Verified Date/Time: 06/09/2017 12:13:36 Reading Location: [facility] Radiology Reading Room 12 :13 PMPOCT-GLUCOSE [id number] 06:03:00 Test Item Value Reference Range Comments POC-GLUCOSE METER (BEAKER) 208 mg/dL 70-110 TESTED AT [address] (test tqqd=5588) [address] [facility] [address] BASIC METABOLIC [id number] 06:00:00 Test Item Value Reference Range Comments SODIUM (BEAKER) (test 139 meq/L 135-148 hwhj=476) POTASSIUM (BEAKER) (test 3.5 meq/L 3.6-5.5 evvc=678) CHLORIDE (BEAKER) (test 103 meq/L 98-106 hljy=229) CO2 (BEAKER) (test 26 meq/L 20-29 gtup=065) BLOOD UREA NITROGEN 62 mg/dL 10-26 (BEAKER) (test rwid=024) CREATININE (BEAKER) (test 5.10 mg/dL 0.50-1.20 gpgo=345) GLUCOSE RANDOM (BEAKER) 191 mg/dL 70-110 (test epdy=121) CALCIUM (BEAKER) (test 9.0 mg/dL 8.5-10.5 nnxc=299) EGFR (BEAKER) (test 12 mL/min/1.73 sq m ESTIMATED GFR IS NOT bsrv=8199) ACCURATE CREATININE CLEARANCE IN PREDICTING GLOMERULAR FILTRATION RATE. ESTIMATED GFR IS NOT APPLICABLE FOR DIALYSIS PATIENTS. HEPATIC FUNCTION [id number] 05:58:00 Test Item Value Reference Range Comments TOTAL PROTEIN (BEAKER) (test hkhm=071) 6.3 gm/dL 6.0-8.5 ALBUMIN (BEAKER) (test ggdm=6995) 3.2 g/dL 3.5-5.0 BILIRUBIN TOTAL (BEAKER) (test htfc=664) 0.4 mg/dL 0.1-1.2 BILIRUBIN DIRECT (BEAKER) (test jkyb=406) 0.2 mg/dL 0.0-0.4 ALKALINE PHOSPHATASE (BEAKER) (test quqv=619) 67 U/L 30-115 AST (SGOT) (BEAKER) (test dijn=439) 13 U/L 5-40 ALT (SGPT) (BEAKER) (test azgp=844) 10 U/L 5-50 CBC W/PLT COUNT & AUTO [id number] 05:56:00 Test Item Value Reference Range Comments WHITE BLOOD CELL COUNT (BEAKER) (test wjht=306) 6.3 K/ L 4.0-10.0 RED BLOOD CELL COUNT (BEAKER) (test vdwb=181) 2.71 M/ L 4.20-5.80 HEMOGLOBIN (BEAKER) (test bxln=019) 7.8 GM/DL 13.0-16.8 HEMATOCRIT (BEAKER) (test tzhc=432) 23.6 % 40.0-50.0 MEAN CORPUSCULAR VOLUME (BEAKER) (test ijuq=021) 86.8 fL 82.0-98.0 MEAN CORPUSCULAR HEMOGLOBIN (BEAKER) (test 28.6 pg 27.0-33.0 blpm=422) MEAN CORPUSCULAR HEMOGLOBIN CONC (BEAKER) (test 33.0 GM/DL 32.0-36.0 obla=936) RED CELL DISTRIBUTION WIDTH (BEAKER) (test 14.8 % 10.3-14.2 bkzr=449) PLATELET COUNT (BEAKER) (test ojly=475) 334 K/CU MM 150-430 MEAN PLATELET VOLUME (BEAKER) (test cpge=855) 6.9 fL 6.5-10.5 NUCLEATED RED BLOOD CELLS (BEAKER) (test 0 /100 WBC 0-0 sfsv=124) NEUTROPHILS RELATIVE PERCENT (BEAKER) (test 57 % esnp=056) LYMPHOCYTES RELATIVE PERCENT (BEAKER) (test 19 % prve=289) MONOCYTES RELATIVE PERCENT (BEAKER) (test 15 % frgi=316) EOSINOPHILS RELATIVE PERCENT (BEAKER) (test 7 % mgzq=831) BASOPHILS RELATIVE PERCENT (BEAKER) (test 1 % tcwt=574) NEUTROPHILS ABSOLUTE COUNT (BEAKER) (test 3.60 K/ L 1.80-8.00 krvw=672) LYMPHOCYTES ABSOLUTE COUNT (BEAKER) (test 1.20 K/ L 1.48-4.50 jcaf=338) MONOCYTES ABSOLUTE COUNT (BEAKER) (test 1.00 K/ L 0.00-1.30 gvpj=332) EOSINOPHILS ABSOLUTE COUNT (BEAKER) (test 0.50 K/ L 0.00-0.50 mabe=218) BASOPHILS ABSOLUTE COUNT (BEAKER) (test 0.10 K/ L 0.00-0.20 gegj=285) [id number] 05:55:00 Test Item Value Reference Range Comments PHOSPHORUS (BEAKER) (test fsrn=463) 4.1 mg/dL 2.5-4.5 [id number] 05:51:00 Test Item Value Reference Range Comments PROTIME (BEAKER) (test hrmo=165) 10.7 seconds 9.3-12.0 INR (BEAKER) (test dcxv=860) 1.0 <=5.9 PARTIAL THROMBOPLASTIN TIME (BEAKER) (test 28.5 seconds 23.0-35.0 vjdu=047) RECOMMENDED COUMADIN/WARFARIN INR THERAPY RANGESSTANDARD DOSE: 2.0 - 3.0 Includes: PROPHYLAXIS forvenous thrombosis, systemic embolization; TREATMENT for venous thrombosis and/or pulmonary embolus.HIGH RISK: Target INR is 2.5-3.5 for patients with mechanical heart valves.[id number] 05:50:00 Test Item Value Reference Range Comments MAGNESIUM (BEAKER) (test qlnt=681) 1.7 mg/dL 1.5-3.0 POCT-GLUCOSE [id number] 23:14:00 Test Item Value Reference Range Comments POC-GLUCOSE METER (LUIS ALBERTO) 230 mg/dL 70-110 TESTED AT [address] (test jica=1511) [address] [facility] [id number]
--- OUTSIDE RECORDS SUMMARY | 2019-02-17 23:13 | XMS REPORT | Summary of Care ---
:1965 Author Organization [facility] Address [address] [place] [address] Care Team Providers Name Role Phone Gretchen Murphy Primary Care Provider Reason for Referral (Routine) Status Reason Specialty Diagnoses / Referred By Referred To Procedures Contact Contact New Request IM-GASTROENTEROLO Diagnoses CAD, multiple vessel Juliana Sequeira GY Procedures Discharge Follow-Up: Specialty Service IM-GASTROENTEROLOGY; 2 Weeks MD [address] [place] [address] (Routine) Status Reason Specialty Diagnoses / Referred By Referred To Procedures Contact Contact New Request Diagnoses STEVAN, multiple vessel Juliana Sequeira MD Amin, Alkesh C Procedures Discharge Follow-up: PCP GRETCHEN MURPHY; 1 Week [address] [phone] [place], [place] Phone: [phone] Phone: (Routine) Status Reason Specialty Diagnoses / Referred By Referred To Procedures Contact Contact New Request PN-NEUROLOGY Diagnoses STEVAN, multiple vessel Juliana Sequeira MD Procedures Discharge Follow-Up: Specialty Service PN-NEUROLOGY ; 1 Month [address] [place] [address] (FABBY) Status Reason Specialty Diagnoses / Referred By Referred To Procedures Contact Contact New Request IM-INTERVENTIONAL Diagnoses CAD, multiple vessel Carrmorro, Juliana, CARDIOLOGY Procedures Discharge Follow-Up: Specialty Service IM-INTERVENTIONAL CARDIOLOGY; Other - See Comment [address] [place] [phone] (Routine) Status Reason Specialty Diagnoses / Referred By Referred To Procedures Contact Contact New Request Vascular Surgery Procedures Juliana Sequeira, BILATERAL VENOUS MD DUPLEX UPPER [address] [facility] BY [place], [place] [facility] [phone] (Routine) Status Reason Specialty Diagnoses / Referred By Referred To Procedures Contact Contact New Request Vascular Surgery Procedures Juliana Sequeira, BILATERAL VENOUS MD DUPLEX UPPER [address] [facility] [place] [facility] [phone] Radiology Services (STAT) Status Reason Specialty Diagnoses / Referred By Referred To Procedures Contact Contact New Request Diagnostic Diagnoses Thrombosis Carrete, Juliana, Radiology Procedures XR CHEST [address] [place] [phone] Radiology Services (STAT) Status Reason Specialty Diagnoses / Referred By Referred To Procedures Contact Contact New Request Diagnostic Diagnoses Thrombosis Carrete, Juliana, Radiology Procedures XR CHEST [address] [place] [phone] Radiology Services (STAT) Status Reason Specialty Diagnoses / Referred By Referred To Procedures Contact Contact New Request Diagnostic Diagnoses Hematemesis with nausea Davis, Radiology Procedures XR CHEST 1 VENKATESH Randall MD [address] [address] Radiology Services (STAT) Status Reason Specialty Diagnoses / Referred By Referred To Procedures Contact Contact New Request Diagnostic Diagnoses Hematemesis with nausea Davis, Radiology Procedures XR CHEST 1 VENKATESH Randall MD [address] [address] Radiology Services (STAT) Status Reason Specialty Diagnoses / Referred By Referred To Procedures Contact Contact New Request Diagnostic Diagnoses Hematemesis with nausea Roland Jaimes, Radiology Procedures XR CHEST [address] [place] [phone] Radiology Services (STAT) Status Reason Specialty Diagnoses / Referred By Referred To Procedures Contact Contact New Request Diagnostic Diagnoses Hematemesis with nausea Roland Jaimes, Radiology Procedures XR CHEST 1 VW [address] [address] Reason for Visit Reason Comments Vomiting Auth/Cert Status Reason Specialty Diagnoses / Referred By Referred To Procedures Contact Contact [facility] [address] [place] [address] [place] [address] Encounter Details Date Type Department Care Team Description 01/10/2019 - Hospital Encounter Medicine (BLAIR 10B) Roland Jaimes MD [address] [id number] Hematemesis with 01/18/2019 712 [facility] Prakash Davis MD [address] [place] [id number] [place] [id number] [place] [address] Sofy Anguiano MD [address] [place] [phone] Juliana Sequeira MD [address] [place] [phone] Allergies Active Allergy Reactions Severity Noted Date Comments Sulfa (Sulfonamide Antibiotics) Unknown - See comments 10/10/2017 documented as of this encounter (statuses as of 01/18/2019) Medications Medication Sig Dispensed Refills Start Date End Date Status amitriptyline 10 mg Take 10 mg by 0 Active tablet mouth at bedtime. atorvastatin 80 mg Take 80 mg by 0 Active tablet mouth at bedtime. docusate (COLACE) Take 100 mg 0 Active 100 mg capsule by mouth daily. furosemide 40 mg Take 40 mg by 0 Active tablet mouth every morning and evening. insulin lispro inject under 0 Active (HUMALOG KWIKPEN the skin. INSULIN SC) metoclopramide HCl 5 Take 5 mg by 0 Active mg tablet mouth before meals. nitroglycerin Place 0.4 mg 0 Active (NITROSTAT) 0.4 mg under the sublingual tablet tongue every 5 (five) minutes as needed for Chest pain. Ranolazine (RANEXA) Take 1,000 mg 0 Active 1,000 mg tablet by mouth daily. SERTraline 50 mg Take 50 mg by 0 Active tablet mouth daily. sevelamer 800 mg Take 800 mg 0 Active tabletIndications: by mouth 3 take two tabs TID (three) times with meals daily with meals. calcium carbonate Take 1 tablet 0 Active 200 mg calcium (500 by mouth mg) chewable tablet daily. calcium carbonate Take 1,000 mg 0 Active (TUMS 500 by mouth. ORAL)Indications: take with meals TID zolpidem 5 mg tablet Take 5 mg by 0 Active mouth at bedtime as needed for Insomnia. ticagrelor Take 90 mg by 0 Active (BRILINTA) 90 mg mouth 2 (two) tablet times daily. metOLazone 5 mg Take 5 mg by 0 Active tabletIndications: mouth daily. take 30 min before Indications: lasix take 30 min before lasix ferric citrate Take 2 0 Active (AURYXIA) 210 mg tablets by iron Tab mouth with all meals. travoprost (TRAVATAN Place 1 Drop 0 Active Z) 0.004 % in both eyes ophthalmic solution at bedtime. aspirin 81 mg Take 1 tablet 0 01/19/2019 Active chewable tablet by mouth daily. gabapentin 100 mg Take 1 0 01/18/2019 Active capsule capsule by mouth 3 (three) times daily. pantoprazole 40 mg Take 1 tablet 0 01/18/2019 Active EC tablet by mouth 2 (two) times daily. carvedilol 3.125 mg Take 1 tablet 0 01/18/2019 Active tablet by mouth 2 (two) times daily with meals. amLODIPine 10 mg Take 10 mg by 0 01/18/2019 Discontinued tablet mouth daily. aspirin 325 mg Take 325 mg 0 01/18/2019 Discontinued tablet by mouth daily. cloniDINE 0.1 mg Take 0.1 mg 0 01/18/2019 Discontinued tablet by mouth 3 (three) times daily. clopidogrel 75 mg Take 75 mg by 0 01/18/2019 Discontinued tablet mouth daily. famotidine 40 mg Take 40 mg by 0 01/18/2019 Discontinued tablet mouth 2 (two) times daily. hydralAZINE 25 mg Take 75 mg by 0 01/18/2019 Discontinued tablet mouth 2 (two) times daily. lansoprazole 30 mg Take 30 mg by 0 01/18/2019 Discontinued capsule mouth daily. metoprolol tartrate Take 100 mg 0 01/18/2019 Discontinued 100 mg tablet by mouth 2 (two) times daily. nitroglycerin 0.2 Apply 1 Patch 0 01/18/2019 Discontinued mg/hr patch to skin daily. ondansetron 4 mg Take 4 mg by 0 01/18/2019 Discontinued tablet mouth every 8 (eight) hours as needed. proMETHazine 25 mg Take 25 mg by 0 01/11/2019 Discontinued tablet mouth every 4 (four) hours as needed. tramadol HCl Take 50 mg by 0 01/18/2019 Discontinued (TRAMADOL ORAL) mouth. losartan 50 mg Take 50 mg by 0 01/18/2019 Discontinued tablet mouth daily. HYDROcodone-acetamin Take 1 tablet 0 01/18/2019 Discontinued ophen (NORCO) by mouth 7.5-325 mg per every 8 tablet (eight) hours as needed for Pain (lower back pain). documented as of this encounter (statuses as of 01/18/2019) Active Problems Problem Noted Date Coronary artery disease involving false pass coronary artery of false pass heart 01/11 without angina pectoris ESRD (end stage renal disease) 01/11/2019 Essential hypertension 01/11/2019 Type 2 diabetes mellitus with neurologic complication, without long-term 01/11 current use of insulin GI bleeding 01/10/2019 Hematemesis with nausea 01/10/2019 Overview: Added automatically from request for surgery [id number] documented as of this encounter (statuses as of 01/18/2019) Social History Tobacco Use Types Packs/Day Years Used Date Never Smoker Smokeless Tobacco: Never Used Tobacco Cessation: Counseling Given: No Alcohol Use Drinks/Week oz/Week Comments Never Alcohol Habits Answer Date Recorded How often do you have a drink containing alcohol? Never 01/15/2019 How many drinks containing alcohol do you have on a typical Not asked day when you are drinking? How often do you have six or more drinks on one occasion? Not asked Education Answer Date Recorded What is the highest level of school you have completed or 10th grade 2018 the highest degree you have received? Financial Resource Strain Answer Date Recorded How hard is it for you to pay for the very basics like Not hard at all 2018 food, housing, medical care, and heating? Food Insecurity Answer Date Recorded Within the past 12 months, you worried that your food would Never true 2018 run out before you got money to buy more. Within the past 12 months, the food you bought just didn't Never true 2018 last and you didn't have money to get more. Sex Assigned at Date Recorded Not on file Job Start Date Occupation Industry Not on file Not on file Not on file Travel History Travel Start Travel End No recent travel history available. documented as of this encounter Last Filed Vital Signs Vital Sign Reading Time Taken Comments Blood Pressure 102/57 01/18/2019 12:21 PM CDT Pulse 75 01/18/2019 12:21 PM CDT Temperature 36.6 C (97.9 F) 01/18/2019 12:21 PM CDT Respiratory Rate 20 01/18/2019 12:21 PM CDT Oxygen Saturation 95% 01/18/2019 12:21 PM CDT Inhaled Oxygen Concentration - - Weight 93 kg (205 lb) 01/17/2019 7:46 PM CDT Height 190.5 cm (6' 3") 01/17/2019 7:46 PM CDT Body Mass Index 25.62 01/17/2019 7:46 PM CDT documented in this encounter Progress Notes Iris Palacios PTA - 01/18/2019 8:16 AM CDTPTA NOTE: Per EPIC, patient has a Osiel venous duplex for UE. Will hold till medically cleared. Will notify Supervising PT. Iris Palacios PTA Pager # [phone] Supervising PT Bill Elias PT TTaye Meadows MD - 01/17/2019 1:30 PM CDT Cardiology Progress Note 01/17/2019 13:30 2:35 PM Requesting Service: MICU Cc: Hematemesis Reason for admission: UGIB while on Brilinta for recent PCI Reason for consult: Brilinta management 24-hr events - SOB last night and O2 sat was 97%, was given NC O2 and duoneb treatment - dialysis today - pending transfer, primary team working with continuum of care manager Subjective: I saw and examined the patient today. Had an episode of SOB last night. Patient went for dialysis today and has had improved SOB. Physical Exam: Vitals: 01/17/19 1130 01/17/19 1200 01/17/19 1230 01/17/19 1300 BP: (!) 141/75 (!) 142/78 (!) 150/78 (!) 145/61 Pulse: 105 102 (!) 46 101 Resp: Temp: TempSrc: SpO2: Weight: Height: No intake/output data recorded. Vitals Temp: [36.1 C (97 F)-36.9 C (98.4 F)] Heart Rate (monitor): [79] Pulse: [46-105] Resp: [18-24] BP: (120-150)/(47-82) MAP (mmHg): [108] Vitals: 01/17/19 1130 01/17/19 1200 01/17/19 1230 01/17/19 1300 BP: (!) 141/75 (!) 142/78 (!) 150/78 (!) 145/61 Pulse: 105 102 (!) 46 101 Resp: Temp: TempSrc: SpO2: Weight: Height: SpO2 readings for the past 24 hrs: SpO2 01/14/19 1542 94 % 01/14/19 2030 94 % 01/15/19 0025 93 % 01/15/19 0044 94 % 01/15/19 0306 95 % 01/15/19 0815 96 % No intake or output data in the 24 hours ending 01/17/19 1330 Constitutional: alert and oriented, no acute distress Cardiovascular: RRR, no murmurs or gallops. Rub heard on LLSB Respiratory: CTAB, mild crackles, no wheezes Gastrointestinal: soft, nontender, non-distended Ext: trace pitting edema, no clubbing, no cyanosis Skin: no rashes Neurological: no focal deficits Labs/Imaging/Pathology - reviewed EKG : 01/11/2019: normal sinus rhythm, questionable change in initial forces of anterior leads 01/10/2019: normal sinus rhythm, left axis deviation Echocardiography : 01/12/2019: - The overall left ventricular function appears low normal to mildly reduced. LVEF=45-50%. - Distal inferoseptal/inferior moderate hypokinesis. - Grade II diastolic dysfunction with elevated LAP. - RV is moderate to severely dilated and RV systolic function is mildly reduced. - Mild LAE. - Severe pulmonary HTN with RVSP elevated at >60mmHg. - Small mostly posterior pericardial effusion with no echocardiographic indications of cardiac tamponade. 01/15/2019: Compared to prior study, changes are noted. LVEF has decreased and pericardial effusion has increased in size. - The overall left ventricular function appears moderately reduced. LVEF=35-40%. - There is mild to moderate global hypokinesis of the left ventricle. - Grade II diastolic dysfunction with elevated LAP. - RV is severely dilated and RV systolic function is mildly reduced. - Mild MR and TR. - Severe pulmonary HTN with RVSP elevated at >60mmHg. - There is a moderate sized circumferential pericardial effusion with no echocardiographic indications of cardiac tamponade. Nuclear imaging : N/A Cardiac Cath : Hx of 2 VA's in the past 2-3 weeks, pending OSH records Assessment/Plan: Yusuf Bah is a 53 year old male admitted with: CAD s/p multiple PCI and reported 2 past VA's, records pending from OSH UGIB Anemia - controlled ESRD HTN HLD DM2, diet controlled Mr. Bah is a 53 y/o male with past medical history stated above. Of note, patient had two MIs over the past 2-3 weeks where he has received multiple stents (reportedly six). PCIs were done in [facility]. He had multiple episodes of hematemesis requiring multiple transfusions over his hospital admission. One Brilinta dose was held. Cardiology was consulted forcontinuation of Brilinta. Subsequently, he had an episode of chest pain that corresponded with an elevation of troponins. No intervention was done due to his active UGIB and symptomatic anemia. Echo was done which saw inferior hypokinesis, small pericardial effusion, and 45-50% EF. For the past two days, Hgb has remained stable. A friction rub was noticed, and a repeat echo was done which showed an increase in pericardial effusion and decrease in EF. His current active cardiac issues are: NSTEMI vs Type II VA In AM of 01/16/2019, patient complaining of chest pain. Troponins becky from 1.330 -> 1.740. No EKG changes. Repeat echo yesterday showed a reduced EF (45-50% - > 35-40%). These findings were concerning of NSTEMI. He is on beta hayes, high dose statin, and aspirin and brilinta. Heparin held due tohistory of past GI bleed. Post-VA Pericarditis Patient has a new friction rub and repeat echo yesterday showed an increase in pericardial effusion.Concerns for post VA pericarditis. Ideally we would like to treat with high dose aspirin, but recentUGIB makes the patient a high risk for bleeding. When explaining the potential risks of starting heparin, increasing aspirin dose , and LHC, Mr. Mcguirelinda asked us to refer to his primary rehabilitation counselor, Dr. Quinones, in regards to his treatment. Dr. Quinones stated that he has very complex coronaries and that they had already done a high risk PCI a fewweeks ago, and did not recommend repeat cath. Spoke with patient and Dr. Quinones about transferring patient care and both are amenable to this option. Recommendations - c/w ASA and Brilinta - spoke to Dr. Quinones at [facility] about transfer of patient care - focused echo to reassess pericardial effusion - please only give NC oxygen if patient has O2 < 90% Thank you again for the consult The care, plan, and management of this patient was discussed with Dr. Adkins, a Faculty Attending Taye Meadows MD Internal Medicine PGY1 [facility] Team Pager [phone] Associated attestation - Felisa Adkins MD - 01/17/2019 4:30 PM CDTI personally examined the patient on 01/17/[address] Meadows resident note as written. I actively participated in the decision-making process. Please see the resident's note for additional details. Micky Govea - 01/17/2019 8:47 AM CDT MEDICAL NUTRITION THERAPY - LENGTH OF STAY I have reviewed the comprehensive progress notes dated today as well as additional physician and allied health provider notes and EPIC information for an understanding of the patient's current medical condition and plans for further treatment and care. Yusuf Bah is a 53 year old male with PMH of HTN | HLD, CAD S/P 6 Stents within the past 2-3 weeks (on Brilinta), DM2 (not on any meds), ESRD on HD (MWF) , who presents for UGIB from [facility] ED. Pt reports that he has been doing okay until this morning when he went to HD, he reports that he [id number] of vomiting bright red blood, denies any abd pain or nausea prior to this, denies any hematochezia or melena, denies any other hx of hematemesis. Reports that he only tolerated an hr of HD prior to being sent over to [facility] ER for the hematemesis. Patient reports that his last BM was 3 days ago & that is his normal routine. Denies any diarrhea, hematuria, dysuria, or fevers. Patient also denies any chest pain or SOB. Of note, patient had VA 2-3 wks ago, had 2 stents placed then. Had a 2nd VA & amp; got 4 more stentsplaced 2 sundays ago & was started on Brilinta & ASA, has been compliant with therapy, last dose of Brilinta was last night. In [facility] ED, BP 134/77, P 81, RR 18, afebrile. Labs were significant for Hgb 9.1 , Troponin 0.200, ALK 123, ALT 75, AST 179, Lipase 444. Per Dr. Pollack's note on 01/11. Diet Order: Cardiac (2 g Na, Low Fat/Chol) 1800 Calorie Diabetic Consistent Carbs Diet - includes HSSnack; Texture: Regular Documented Food Allergies/Intolerance/Cultural Preferences: None GI and Nutrition Related Findings: Spoke with patient this morning. He denies nausea, vomiting, and diarrhea. He endorses chronic constipation, often going 4- 5 days without a BM. He takes lactulose andMetamucil at home and states this helps a little. He has a normal appetite and reports eating 75-100% of his meals. He states following a 32 oz fluid restriction at home and watches his fluid intake from both beverages and foods. His diet includes foods like chicken , fish, broccoli, asparagus, strawberries, blueberries, and cantaloupe. He stated limiting carbohydrates but does not carb count for diabetes. He eats 2 small meals per day and drinks Boost once daily as a meal replacement. He reported losing 60 lbs about a year ago. His usual body weight is 205 lbs. He believes he has lost about 7-8 lbsin the past few weeks and stated feeling muscle weakness and needing help moving his legs, rolling over, and standing up. Patient reports he is prescribed Renvela 800 mg TID at home but states often forgetting to take it or only taking it once a day. PO intake: 75-100% per patient report +BM 01/11 UOP MEETA Last HD 01/15 UF 2000 mL General: Edema: trace left leg/foot Pertinent Medications: Noted. Includes: Lipitor, carvedilol, Epogen, pantoprazole, Miralax, Senokot, Novolog, amitriptyline, Lasix 01/15, [place] PRN; home medication: Reglan Labs and Medical Test Results: Reviewed. Ref. Range 01/15/2019 19:34 01/16/2019 03:51 01/17/2019 01:32 NA Latest Ref Range: 135 - 145 mmol/L 137 135 135 K Latest Ref Range: 3.5 - 5.0 mmol/L 3.7 4.3 4.9 CL Latest Ref Range: 98 - 108 mmol/L 105 100 100 CO2 TOTAL Latest Ref Range: 23 - 31 mmol/L 24 25 23 AGAP Latest Ref Range: 2 - 16 8 10 12 BUN Latest Ref Range: 7 - 23 mg/dL 26 (H) 35 (H) 48 (H) GLUCOSE Latest Ref Range: 70 - 110 mg/dL 191 (H) 163 (H) 150 (H) CREATININE Latest Ref Range: 0.60 - 1.25 mg/dL 3.07 (H) 4.33 (H) 5.23 (H) eGFR CALCULATION (non ) Latest Units: mL/min/1.73m2 21.3 14.4 11.5 CALCIUM Latest Ref Range: 8.6 - 10.6 mg/dL 7.5 (L) 8.4 (L) 8.2 (L) MAGNESIUM Latest Ref Range: 1.7 - 2.4 mg/dL 1.7 Ref. Range 01/10/2019 19:40 PHOSPHORUS Latest Ref Range: 2.5 - 5.0 mg/dL 5.3 (H) 01/10/2019 19:41 HGB A1C 6.3 (H) 01/15/2019 17:34 01/15/2019 21:00 01/16/2019 08:14 01/16/2019 11:28 01/16/2019 17:47 2018 20:44 01/17/2019 08:13 POCT Blood Glucose 210 231 187 159 200 236 141 Anthropometrics: Height: 1.905 Weight: 216 lbs (98 kg) Body mass index is 27 kg/m. IBW: 199 lbs (90.4 kg) at BMI 24.9 kg/m^2 %IBW: 108 UBW: 205 lbs (93 kg) Admit Weight: 205 lbs (98 kg) Wt Readings from Last 6 Encounters: 01/17/19 98 kg (216 lb 0.8 oz) 11/30/18 97.1 kg (214 lb) 09/11/18 97.1 kg (214 lb) 10/13/17 93 kg (205 lb) 10/10/17 93 kg (205 lb) NUTRITION DIAGNOSIS: 1) Altered nutrition related lab value (phosphorus) related to kidney dysfunction as evidenced by patient report of limited adherence with phosphorus binder regimen and phosphorus level of 5.3. NUTRITION INTERVENTIONS: 1) Recommend 2500 Calorie Diabetic Consistent Carbohydrate diet, 2.5 g Na, 2.5 g K, low Phos with fluid restriction to better meet estimated needs. 2) Monitor phosphorus level and resume binders as needed. 3) Administer meds as needed for bowel regularity - last BM 01/11, constipation can contribute to hyperkalemia 4) Recommend NephroVite once daily. 5) May offer Nepro PRN if patient not consuming 75% of meals. Goal(s): 1) The patient will be able to consume 75% of all meals without any intolerances during this admission. MONITORING/EVALUATION: - RD to continue following with Nephrology team to review pt's progress, report nutrition related information, and to revise the recommended nutrition intervention(s) if necessary; please call with questions or concerns Anticipated Discharge Needs: None identified at this time. Micky Govea [employer] Pager: [phone] Associated attestation - Clari Villa - 01/17/2019 3:45 PM CDTI have reviewed the nutrition care plan for Yusuf Bah, and I agree with Micky Govea's note aswritten. I actively participated in the plan of care. Clari Villa, MS, RD, NAIL PROFESSIONAL, LD Nephrology Dietitian Pager: [phone] Palacios PTA - 01/17/2019 8:25 AM CDTPTA NOTE: Per EPIC, patient has a Osiel venous duplex for UE. Will hold till medically cleared. Will notify Supervising PT. Iris Palacios PTA Pager # [phone] Supervising PT Jensen Mayorga PT Iris Perez PTA - 01/16/2019 2:26 PM CDTPTA NOTE: Per EPIC, patient has a Osiel venous duplex for UE. Will hold till medically cleared. Will notify Supervising PT. Iris Palacios PTA Pager # [phone] Supervising PT Bill Elias PT Paco sampson OT - 01/16/2019 11:12 AM CDT01/16/2019 OCCUPATIONAL THERAPY NOTE: UE Ultra sound ordered to rule out DVT will hold today RN notified. Guilherme Chappell STYLES/L Pager [phone] Supervising OTMarisa Garber aye Meadows MD - 01/16/2019 9:01 AM CDT Cardiology Progress Note 01/16/2019 09:02 2:35 PM Requesting Service: MICU Cc: Hematemesis Reason for admission: UGIB while on Brilinta for recent PCI Reason for consult: Brilinta management 24-hr events - chest pain overnight, pressure-like on the right side of chest without radiation, resolved with 2 SL nitroglycerin - troponins rising, 1.330 -> 1.740 - Hgb stable - During rounds we spoke to Mr. Bah about a potential LHC. He deferred us to his rehabilitation counselor, whowe reached out to. He said that the patient had very complex coronaries and that they had already done a high risk PCI and did not recommend repeat cath Subjective: I saw and examined the patient today. Had an episode of chest pain last night. Denies SOB, palpitations, syncopal episodes, dizziness, diaphoresis. No more hematemesis. Chest pain did not improve or worsen with positional change. Physical Exam: Vitals: 01/16/19 0123 01/16/19 0340 01/16/19 0544 01/16/19 0708 BP: 134/69 130/62 126/60 Pulse: 85 89 89 Resp: 21 20 Temp: 37.1 C (98.7 F) 36.6 C (97.9 F) TempSrc: Oral Oral SpO2: 98% 99% 96% Weight: Height: 01/15 0700 - 01/16 659 In: 100 [I.V.:100] Out: 2049 [Urine:50] Vitals Temp: [36.6 C (97.8 F)-37.1 C (98.7 F)] Pulse: [85-100] Resp: [18-22] BP: (126-150)/(60-98) MAP (mmHg): [110] Vitals: 01/16/19 0123 01/16/19 0340 01/16/19 0544 01/16/19 0708 BP: 134/69 130/62 126/60 Pulse: 85 89 89 Resp: 21 20 Temp: 37.1 C (98.7 F) 36.6 C (97.9 F) TempSrc: Oral Oral SpO2: 98% 99% 96% Weight: Height: SpO2 readings for the past 24 hrs: SpO2 01/14/19 1542 94 % 01/14/19 2030 94 % 01/15/19 0025 93 % 01/15/19 0044 94 % 01/15/19 0306 95 % 01/15/19 0815 96 % Intake/Output Summary (Last 24 hours) at 01/16/2019901 Last data filed at 01/15/20192015 Gross per 24 hour Intake 100 ml Output 2050 ml Net -1950 ml Constitutional: No acute distress Cardiovascular: RRR, friction rubs heard in LLSB of chest wall Respiratory: CTAB Gastrointestinal: soft, nontender, nondistended Ext: no pitting edema, no clubbing, no cyanosis Skin: no rashes Neurological: no focal deficits Labs/Imaging/Pathology - reviewed EKG : 01/11/2019: normal sinus rhythm, questionable change in initial forces of anterior leads 01/10/2019: normal sinus rhythm, left axis deviation Echocardiography : 01/12/2019: - The overall left ventricular function appears low normal to mildly reduced. LVEF=45-50%. - Distal inferoseptal/inferior moderate hypokinesis. - Grade II diastolic dysfunction with elevated LAP. - RV is moderate to severely dilated and RV systolic function is mildly reduced. - Mild LAE. - Severe pulmonary HTN with RVSP elevated at >60mmHg. - Small mostly posterior pericardial effusion with no echocardiographic indications of cardiac tamponade. 01/15/2019: Compared to prior study, changes are noted. LVEF has decreased and pericardial effusion has increased in size. - The overall left ventricular function appears moderately reduced. LVEF=35-40%. - There is mild to moderate global hypokinesis of the left ventricle. - Grade II diastolic dysfunction with elevated LAP. - RV is severely dilated and RV systolic function is mildly reduced. - Mild MR and TR. - Severe pulmonary HTN with RVSP elevated at >60mmHg. - There is a moderate sized circumferential pericardial effusion with no echocardiographic indications of cardiac tamponade. Nuclear imaging : N/A Cardiac Cath : Hx of 2 VA's in the past 2-3 weeks, pending OSH records Assessment/Plan: Yusuf Bah is a 53 year old male admitted with: CAD s/p multiple PCI and reported 2 past VA's, records pending from OSH UGIB Anemia - controlled ESRD HTN HLD DM2, diet controlled Mr. Bah is a 53 y/o male with past medical history stated above. Of note, patient had two MIs over the past 2-3 weeks where he has received multiple stents (reportedly six). PCIs were done in [facility]. He had multiple episodes of hematemesis requiring multiple transfusions over his hospital admission. One Brilinta dose was held. Cardiology was consulted forcontinuation of Brilinta. Subsequently, he had an episode of chest pain that corresponded with an elevation of troponins. No intervention was done due to his active UGIB and symptomatic anemia. Echo was done which saw inferior hypokinesis, small pericardial effusion, and 45-50% EF. For the past two days, Hgb has remained stable. A friction rub was noticed, and a repeat echo was done which showed an increase in pericardial effusion and decrease in EF. His current active cardiac issues are: NSTEMI vs Type II VA In AM of 01/16/2019, patient complaining of chest pain. Troponins becky from 1.330 -> 1.740. No EKG changes. Repeat echo yesterday showed a reduced EF (45-50% - > 35-40%). These findings were concerning of NSTEMI. He is on beta hayes, high dose statin, and aspirin and brilinta. Heparin held due tohistory of past GI bleed. Post-VA Pericarditis Patient has a new friction rub and repeat echo yesterday showed an increase in pericardial effusion.Concerns for post VA pericarditis. Ideally we would like to treat with high dose aspirin, but recentUGIB makes the patient a high risk for bleeding. When explaining the potential risks of starting heparin, increasing aspirin dose , and LHC, Mr. Mcguirelinda asked us to refer to his primary rehabilitation counselor, Dr. Quinones, in regards to his treatment. Dr. Quinones stated that he has very complex coronaries and that they had already done a high risk PCI a fewweeks ago, and did not recommend repeat cath. Spoke with patient and Dr. Quinones about transferring patient care and both are amenable to this option. Recommendations - c/w ASA and Brilinta - spoke to Dr. Quinones at [facility] about transfer of patient care Thank you again for the consult The care, plan, and management of this patient was discussed with Dr. Adkins, a Faculty Attending Taye Meadows MD Internal Medicine PGY1 [facility] Team Pager [phone] Associated attestation - Felisa Adkins MD - 01/17/2019 4:01 PM CDTI personally examined the patient on 01/16/[address] Meadows resident note as written. I actively participated in the decision-making process. Please see the resident's note for additional details. Sarbjit Santiago MBBS - 01/15/2019 8:52 PM CDT GI Service Progress Note Date of Service: 01/15/2019 Reason for consult: hematemesis Chief Complaint: hematemesis SUBJECTIVE/Interval history: No more vomiting of blood. Had dialysis today On protonix. On aspirin and brillinta CURRENT MEDICATIONS - reviewed. PHYSICAL EXAM: BP 135/77 | Pulse 96 | Temp 36.7 C (98.1 F) (Oral) | Resp 22 | Ht 1.905 m (6' 3") | Wt 92 kg (202 lb 13.2 oz) | SpO2 98% | BMI 25.35 kg/m General : awake and alert, NAD ENT: Moist mucous membranes, pupils equal, EOMI Cardiovascular: RRR, normal S1 and S2, No lower extremity edema Respiratory: Clear to auscultation bilaterally, normal effort, no crackles or wheezing Gastrointestinal: soft, non tender, no distension, normal bowel sounds Psychiatric: oriented x 3, appropriate affect and cognition LABS/IMAGING - reviewed, pertinent results as below: CBC WBC (10*3/L) Date Value 01/15/2019 4.07 (L) RBC (10*6/L) Date Value 01/15/2019 2.64 (L) PLT (10*3/L) Date Value 01/15/2019 127 (L) HGB (g/dL) Date Value 01/15/2019 8.1 (L) HCT (%) Date Value 01/15/2019 25.5 (L) CMP NA (mmol/L) Date Value 01/15/2019 133 (L) K (mmol/L) Date Value 01/15/2019 3.8 CALCIUM (mg/dL) Date Value 01/15/2019 8.3 (L) CL (mmol/L) Date Value 01/15/2019 97 (L) BUN (mg/dL) Date Value 01/15/2019 63 (H) CREATININE (mg/dL) Date Value 01/15/2019 5.99 (H) GLUCOSE (mg/dL) Date Value 01/15/2019 159 (H) CO2 TOTAL (mmol/L) Date Value 01/15/2019 24 ALBUMIN (g/dL) Date Value 01/10/2019 4.0 T PROTEIN (g/dL) Date Value 01/10/2019 8.1 TOTAL BILI (mg/dL) Date Value 01/10/2019 1.2 (H) BILI UNCON (mg/dL) Date Value 01/10/2019 0.2 BILI CONJ (mg/dL) Date Value 01/10/2019 0.1 ALT(SGPT) (U/L) Date Value 01/10/2019 75 (H) AST(SGOT) (U/L) Date Value 01/10/2019 179 (H) ALK PHOS (U/L) Date Value 01/10/2019 123 (H) ASSESSMENT/PLAN Yusuf Bah is a 53 year old male Hematemesis, suspect from brillinta and aspirin: Resolved Reviewed upper endoscopy reports Transition to oral PPI BID x 8 weeks and then once a day Acute Blood loss anemia: Sec to upper gi bleeding Please keep Hb >8, since he is a cardiac patient Will follow clinically Recent VA with 2 stents initially and then instent thrombosis for which he got 4 more stents in last2 weeks On aspirin and brillinta. Cardiology on board. ESRD on dialysis As per nephrology Case discussed with faculty Erasto Vu Will follow peripherally. Please call with questions Dr. Sarbjit Santiago PGY-4 Division of Gastroenterology and Hepatology Pager: [phone] Associated attestation - Erasto Antunez MD - 01/15/2019 11:24 PM CDTI have examined the patient and discussed the findings and management plan with Dr Santiago. I agreewith the GI Progress note as above. Abisai Lees DO - 01/15/2019 8:52 PM CDT PGY- 1 [facility] Team Progress Note Date of Service: 01/15/2019 20:53 Chief Complaint: hematemsis 24-HOUR EVENTS: -none SUBJECTIVE: Patient states that he hasn't had a bowel movement in a few days. Patient also endorses weakness butdenies chest pain, shortness of breath, light headedness, nausea, vomiting, numbness/tingling. PHYSICAL EXAM: Vitals: 01/15/19 1230 01/15/19 1255 01/15/19 1319 01/15/19 1954 BP: (!) 141/81 (!) 144/75 (!) 144/79 135/77 Pulse: 94 92 92 96 Resp: 18 22 Temp: 36.6 C (97.9 F) 36.7 C (98.1 F) TempSrc: Tympanic Oral SpO2: 98% Weight: 92 kg (202 lb 13.2 oz) Height: Intake/Output Summary (Last 24 hours) at 01/15/20192052 Last data filed at 01/15/20192015 Gross per 24 hour Intake 320 ml Output 2150 ml Net -1830 ml General: No acute distress, sitting in bed HEENT: white sclera, moist mucous membranes Lungs: clear to auscultation bilaterally Cardio: S1, S2 normal; systolic murmur in the lower left sternal border 3+ Abdomen: soft; non-tender; non-distended; normoactive bowel sounds. Extremities: no clubbing, cyanosis. Right arm is more edematous than left arm. Skin: no rashes, skin dry and warm LABS/IMAGING - reviewed, pertinent results as below: ASSESSMENT/PLAN Yusuf Bah is a 53 year old male with PMH as listed above, admitted to the hospital with: UGIB likely 2/2 Brilinta &ASA use CAD s/p 6 Stents within the past 2 weeks Pulmonary HTN Cronic diastolic heart failure, possible chronic systolic heart failure EF 45-50 % On Brilinta &ASA. Cardiology visited family and had discussion about risk vs benefits of staying on Brilinta in setting of upper GI bleed. Patient and family agreed to stay on Brilinta. In addition, patient reported chest pain in setting of hypertension and elevating troponin. EKG was done twiceand showed no changes. Concern for NSTEMI vs demand ischemia. Hgb stable, EGD without source of bleeding. Loud murmur heard 8/4 over lower left sternum. - Cards following patient - Staying on Brillinta for now; will hold if worsening hematemesis - BP control -c/w protonix BID - s/p 5 u pRBC -GI following -H/H QAM and PRN bleeding -Maintain Hgb > 8 since patient has CAD -repeat echo ordered ESRD on HD MWF R arm swelling, concern for DVT Comment: last HD session this morning, lasted only for 1 hr, prior to him having hematemesis. Other than slight coolness of fingers, patient without signs of vascular compromise. UE DVT rarely cause PEin comparison to LE DVT and patient is currently being treated for severe GIB (relative contraindication for AC even if DVT found). Nephro called to evaluate R arm. Arm is improving and dialysis is able to be preformed in arm. - Nephrology consulted for HD needs -right upper extremity ultrasound ordered - elevate affected extremity -will follow changes in right arm Global Weakness Patient states that over the last 3 months he has gone from being able to ambulate with a cane to being unable to roll over in bed with out help. Patient' s strength is 4+ grossly. Patient has spent much of the last 3 months hospitalized. Deconditioning could be playing a role in presentation. -will consider neuro consult -will follow new recs from PT DM2 (not on any meds) Comment:per patient's report, last A1C checked 2 wks ago was 7.0, has been managing it with Diet, not on any meds. -SSI -monitor glucose Constipation Patient is usually on bowel regiment at home and currently isn't on a bowel regiment. Patient has not had a bowel movement in a few days but is passing gas. - start MiraLAX PAIN: Not an active problem Prophylaxis: DVT- not indicated (GI bleed on dual antiplatelet) Stress Ulcer: nexium Code Status: CPR Bowel Regimen: NONE Disposition Anticipated Discharge Date : Pending Barriers to Discharge: assure hemodynamically stable/cardiac Abisai Lees, DO Internal Medicine PGY-1 [facility] Team Pager#[phone] END OF DAILY PROGRESS NOTE Hospital Course Yusuf Bah is a 53 year-old man with PM of HTN, HLD, CAD s/p 6 stents within 2-3 weeks (on Brilinta), DM2 (not on meds), ESRD on HD (MWF), was transferred here from [facility] ED for hematemesis thatstarted 01/10 associated with Brilanta and ASA use. Last dose of Brilanta was the night prior to admission; primary use is to prevent rethrombosis of stent. Received 6 stents over the past 3 weeks at [facility] c/b one-time stent stenosis and rethrombosis. Patient reported vomiting 700 cc of maroon/dark blood prior to admission. Due to persistent Hgb <8 and another episode of 300 cc hematemesis, he received 4 units of pRBC over the first 24 hours. Patient underwent EGD on day 1, which was unable to identify the source of bleeding due to heavy presence of clot. EGD was performed again the following day, unable to identify source of blood loss. Cardiology after discussion with patient and family agreed to keep patient on Brilanta to prevent in-stent restenosis. Patient began havingchest pain with BP 189/60 at the time. Troponin was elevated without changes on EKG. Pain was alleviated with BP control and nitroglycerin. Echo was ordered which showed pHTN and mildly reduced EF. Troponins trended for peak, high dose statin started. Patient completed 72h of IV PPI and had resolutionof GIB, without further episodes of hematemesis or melena. Hgb remained relatively stable, only required 1 further unit of pRBC. Tolerated dialysis well, except for swelling of RUE after last dialysis session. Nephrology to evaluate R arm. Patient transferred to floor 01/14 for further management and care 01/14/2019. Cardiology contacted to confirm murmur. Echo ordered per cardiology recs. CURRENT MEDICATIONS - reviewed. Associated attestation - Juliana Sequeira MD - 01/16/2019 2:08 AM CDTI personally examined the patient on 01/15/[address] Lees's resident note as written. I actively participated in the decision-making process. Please see the resident's note for additional details. Juliana Sequeira MD President Sales And Marketing Department of Internal Medicine O: C: F: Taye Meadows MD - 01/15/2019 2:32 PM CDT Cardiology Progress Note 01/15/2019 14:35 2:35 PM Requesting Service: MICU Cc: Hematemesis Reason for admission: UGIB while on Brilinta for recent PCI Reason for consult: Brilinta management 24-hr events - patient transferred to the floor, dialysis today - no further episodes of hematemesis - Hgb remained stable, only 1U RBC required over weekend - currently trending in 9.0 Hgb over past 3 days Subjective: I saw and examined the patient today. Patient had dialysis today. No complaints of chest pain, palpitations, SOB, abdominal pain, melena, hematemesis, or hematochezia. Physical Exam: Vitals: 01/15/19 1200 01/15/19 1230 01/15/19 1255 01/15/19 1319 BP: (!) 142/98 (!) 141/81 (!) 144/75 (!) 144/79 Pulse: 92 94 92 92 Resp: 18 Temp: 36.6 C (97.9 F) TempSrc: Tympanic SpO2: Weight: 92 kg (202 lb 13.2 oz) Height: 08 0700 - 08 0659 In: 220 [Oral:120; I.V.:100] Out: 100 [Urine:100] Vitals Temp: [35.6 C (96.1 F)-36.9 C (98.4 F)] Pulse: [79-100] Resp: [16-18] BP: (116-150)/(57-98) MAP (mmHg): [110-117] Vitals: 01/15/19 1200 01/15/19 1230 01/15/19 1255 01/15/19 1319 BP: (!) 142/98 (!) 141/81 (!) 144/75 (!) 144/79 Pulse: 92 94 92 92 Resp: 18 Temp: 36.6 C (97.9 F) TempSrc: Tympanic SpO2: Weight: 92 kg (202 lb 13.2 oz) Height: SpO2 readings for the past 24 hrs: SpO2 01/14/19 1542 94 % 01/14/19 2030 94 % 01/15/19 0025 93 % 01/15/19 0044 94 % 01/15/19 0306 95 % 01/15/19 0815 96 % Intake/Output Summary (Last 24 hours) at 01/15/2019 1435 Last data filed at 01/15/2019 1320 Gross per 24 hour Intake 220 ml Output 2100 ml Net -1880 ml Constitutional: No acute distress, Cardiovascular: RRR, friction rubs in Lower Left Sternal Border, no gallops Respiratory: CTAB Gastrointestinal: soft, nontender, non-distended Ext: no pitting edema, no clubbing, no cyanosis Skin: no rashes Neurological: no focal deficits Labs/Imaging/Pathology - reviewed EKG : 01/11/2019: normal sinus rhythm, questionable change in initial forces of anterior leads 01/10/2019: normal sinus rhythm, left axis deviation Echocardiography : 01/12/2019: - The overall left ventricular function appears low normal to mildly reduced. LVEF=45-50%. - Distal inferoseptal/inferior moderate hypokinesis. - Grade II diastolic dysfunction with elevated LAP. - RV is moderate to severely dilated and RV systolic function is mildly reduced. - Mild LAE. - Severe pulmonary HTN with RVSP elevated at >60mmHg. - Small mostly posterior pericardial effusion with no echocardiographic indications of cardiac tamponade. Nuclear imaging : N/A Cardiac Cath : Hx of 2 VA's in the past 2-3 weeks, pending OSH records Assessment/Plan: Yusuf Bah is a 53 year old male admitted with: CAD s/p multiple PCI and reported 2 past VA's, records pending from OSH NSTEMI vs Type II VA New friction rub UGIB Anemia - controlled ESRD HTN HLD DM2, diet controlled Mr. Bah is a 53 y/o male with past medical history stated above. Of note, patient had two MIs over the past 2-3 weeks where he has received multiple stents (reportedly six). PCIs were done in [facility]. Patient went to HD on Tuesday, 01/10, and reports to have vomited 600 mL of bright red blood. No abdominal pain or nausea. Last BM 3 days ago, no melena or hematochezia reported.He has had multiple episodes of hematemesis since admission. Hgb was 9.1 on arrival and went down to 7.0. Given 2U RBCs andlast Hgb is 8.6. Hemodynamically stable. Cardiology consulted for continuation of Brilinta. Patient had HD yesterday and complained of substernal chest pain in the setting of hypertension, increased troponin, and unchanged EKG - trop elevated from 0.718 -> 0.783 -> 1.610 -> 2.290 -> 2.990 (peak ) -> 2.650 -> 1.820 Over the weekend patient needed 1U RBC but after 72H of IV PPI Hgb has trended in 9's for 3 days. However, a new murmur was noticed and echo on 01/12/2019 did not show any etiologies of what might be causing a murmur. Due to concern for new structural disease, we recommend a TTE and troponin check (ordered already). Recommendations - c/w ASA and Brilinta - TTE - troponin recheck ordered, was 1.8 from 2.65 - cardiology will follow Thank you again for the consult The care, plan, and management of this patient was discussed with Dr. Adkins, a Faculty Attending Taye Meadows MD Internal Medicine PGY1 [facility] Team Pager [phone] Associated attestation - Felisa Adkins MD - 01/17/2019 4:02 PM CDTI personally examined the patient on 01/15/[address] Meadows resident note as written. I actively participated in the decision-making process. Please see the resident's note for additional details. Yarelis Rosario PTA - 01/15/2019 11:09 AM CDTPHYSICAL THERAPY NOTE: Attempted to see patient in AM. Patient currently out of room for dialysis. Will return later for PT as time permits. Yarelis Rosario PTA Pager #: [phone] Supervising PT Jensen Mayorga Paco Acevedo OT - 01/15/2019 10:38 AM CDT01/15/2019 OCCUPATIONAL THERAPY NOTE: Pt gone to HD will attempt tx next visit RN notified. Guilherme STYLES/Laura Pager [phone] Supervising OTR Randi Kearney Abisai Campos DO - 01/14/2019 5:45 PM CDT PGY- 1 [facility] Team Progress Note Date of Service: 01/14/2019 17:45 Chief Complaint: hematemsis 24-HOUR EVENTS: Transfer from ICU SUBJECTIVE: Yusuf Bah is a 53 year-old man with PM of HTN, HLD, CAD s/p 6 stents within 2-3 weeks (on Brilinta), DM2 (not on meds), ESRD on HD ([facility]), was transferred here from [facility] ED for hematemesis thatstarted 01/10 associated with Brilanta and ASA use. Last dose of Brilanta was the night prior to admission; primary use is to prevent rethrombosis of stent. Received 6 stents over the past 3 weeks at [facility] c/b one-time stent stenosis and rethrombosis. Patient reported vomiting 700 cc of maroon/dark blood prior to admission. Due to persistent Hgb <8 and another episode of 300 cc hematemesis, he received 4 units of pRBC over the first 24 hours. Patient underwent EGD on day 1, which was unable to identify the source of bleeding due to heavy presence of clot. EGD was performed again the following day, unable to identify source of blood loss. Cardiology after discussion with patient and family agreed to keep patient on Brilanta to prevent in-stent restenosis. Patient began havingchest pain with BP 189/60 at the time. Troponin was elevated without changes on EKG. Pain was alleviated with BP control and nitroglycerin. Echo was ordered which showed pHTN and mildly reduced EF. Troponins trended for peak, high dose statin started. Patient completed 72h of IV PPI and had resolutionof GIB, without further episodes of hematemesis or melena. Hgb remained relatively stable, only required 1 further unit of pRBC. Tolerated dialysis well, except for swelling of RUE after last dialysis session. Nephrology to evaluate R arm. Patient transferred to floor 01/14 for further management and care. Patient endorses increased weakness over the last few months. He also states that he had intractablevomiting that underwent extensive workup without finding a cause before spontaneously resolving. As a result, the patient states that he lost 60 pounds over the last 1.5 years. Patient denies headache,chest pain, shortness of breath, nausea, vomiting, diarrhea. Patient endorses constipation which he treats at home with miralax and another stool softener that he didn't name. Patient also endorses tingling associated with diabetes mellitus which has been stable. PHYSICAL EXAM: Vitals: 01/14/19 1000 01/14/19 1200 01/14/19 1356 01/14/19 1542 BP: (!) 148/98 110/53 109/54 116/58 Pulse: 100 79 81 80 Resp: 20 18 18 Temp: 36.7 C (98.1 F) 36.3 C (97.4 F) 36.4 C (97.6 F) TempSrc: Tympanic Oral Oral SpO2: (!) 83% 99% 94% 94% Weight: Height: Intake/Output Summary (Last 24 hours) at 01/14/2019 1745 Last data filed at 01/13/2019 2100 Gross per 24 hour Intake 150 ml Output Net 150 ml General: No acute distress, sitting in bed HEENT: white sclera, moist mucous membranes Neck: no cervical lymphadenopathy Lungs: clear to auscultation bilaterally Cardio: S1, S2 normal; systolic murmur in the lower right sternal border 3+ Abdomen: soft; non-tender; non-distended; normoactive bowel sounds. Scar right of midline from priorappendectomy and other scars from ports for past abdominal surgeries. Extremities: no clubbing, cyanosis. Right arm is more edematous than left arm. Fistula in right arm with bruit auscultated and thrill felt. Skin: no rashes, skin dry and warm Neuro: sensation intact, strength decreased in upper and lower extremities (4+) LABS/IMAGING - reviewed, pertinent results as below: ASSESSMENT/PLAN Yusuf Bah is a 53 year old male with PMH as listed above, admitted to the hospital with: #UGIB likely 2/2 Brilinta &ASA use #CAD s/p 6 Stents within the past 2 weeks #Pulmonary HTN #Chronic diastolic heart failure, possible chronic systolic heart failure EF 45- 50% On Brilinta &ASA. Cardiology visited family and had discussion about risk vs benefits of staying on Brilinta in setting of upper GI bleed. Patient and family agreed to stay on Brilinta. In addition, patient reported chest pain in setting of hypertension and elevating troponin. EKG was done twiceand showed no changes. Concern for NSTEMI vs demand ischemia. Hgb stable, EGD without source of bleeding. Loud murmur heard 8/4 over lower left sternum. - Cards following patient - Staying on Brillinta for now; will hold if worsening hematemesis - BP control -GI following patient -completed protonix drip, now BID - s/p 5 u pRBC -H/H QAM and PRN bleeding -Maintain Hgb > 8 since patient has CAD -will discuss repeat echo with faculty given new loud murmur #ESRD on HD MWF #R arm swelling, concern for DVT Comment: last HD session this morning, lasted only for 1 hr, prior to him having hematemesis. Other than slight coolness of fingers, patient without signs of vascular compromise. UE DVT rarely cause PEin comparison to LE DVT and patient is currently being treated for severe GIB (relative contraindication for AC even if DVT found). Nephro called to evaluate R arm. Arm is improving and dialysis is able to be preformed in arm. - Nephrology consulted for HD needs -monitor closely, consider ultrasound and or vascular consultation if worsening - elevate affected extremity -will follow changes in right arm #DM2 (not on any meds) Comment:per patient's report, last A1C checked 2 wks ago was 7.0, has been managing it with Diet, not on any meds. -SSI -monitor glucose PAIN: Not an active problem Prophylaxis: DVT- not indicated (GI bleed on dual antiplatelet) Stress Ulcer: nexium Code Status: CPR Bowel Regimen: NONE Disposition Anticipated Discharge Date : Pending Barriers to Discharge: assure hemodynamically stable/cardiac Abisai Lees, DO Internal Medicine PGY-1 Robert Team Pager#[phone] END OF DAILY PROGRESS NOTE Hospital Course Yusuf Bah is a 53 year-old man with PM of HTN, HLD, CAD s/p 6 stents within 2-3 weeks (on Brilinta), DM2 (not on meds), ESRD on HD (MWF), was transferred here from [facility] for hematemesis thatstarted 01/10 associated with Brilanta and ASA use. Last dose of Brilanta was the night prior to admission; primary use is to prevent rethrombosis of stent. [facility] c/b one-time stent stenosis and rethrombosis. Patient reported vomiting 700 cc of maroon/dark blood prior to admission. Due to persistent Hgb <8 and another episode of 300 cc hematemesis, he received 4 units of pRBC over the first 24 hours. Patient underwent EGD on day 1, which was unable to identify the source of bleeding due to heavy presence of clot. EGD was performed again the following day, unable to identify source of blood loss. Cardiology after discussion with patient and family agreed to keep patient on Brilanta to prevent in-stent restenosis. Patient began havingchest pain with BP 189/60 at the time. Troponin was elevated without changes on EKG. Pain was alleviated with BP control and nitroglycerin. Echo was ordered which showed pHTN and mildly reduced EF. Troponins trended for peak, high dose statin started. Patient completed 72h of IV PPI and had resolutionof GIB, without further episodes of hematemesis or melena. Hgb remained relatively stable, only required 1 further unit of pRBC. Tolerated dialysis well, except for swelling of RUE after last dialysis session. Nephrology to evaluate R arm. Patient transferred to floor 01/14 for further management and care. CURRENT MEDICATIONS - reviewed. Genesis Montelongo RN - 01/14/2019 2:04 PM CDTPatient transferred to room 1036 from MICU. A&Ox4, RA, R arm AVF, renal diet, no pain, assist x1with walker. Anabel Tejada MD - 01/14/2019 10:29 AM CDT MICU Progress/Transfer Note Date of Service: 01/14/2019 10:29 Reason for ICU admission: hematemesis ICU Day: 4 Intubation Day: n/a Code Status: Full Hospital course: Yusuf Bah is a 53 year-old man with PM of HTN, HLD, CAD s/p 6 stents within 2-3 weeks (on Brilinta), DM2 (not on meds), ESRD on HD (MWF), was transferred here from [facility] for hematemesis associated with Brilanta and ASA use. Last dose of Brilanta was the night prior to admission; primary useis to prevent rethrombosis of stent. Re[facility] 6 st[facility] the [facility] c/b one-time stent stenosis and rethrombosis. Patient reported vomiting 700 cc of maroon/dark blood prior to admission. Due to persistent Hgb <8 and another episode of 300 cc hematemesis, he received 4 units of pRBC over the first 24 hours. Patient underwent EGD on day 1, which was unable to identify the source of bleeding due to heavy presence of clot. EGD was performed again the following day, unable to identify source of blood loss. Cardiology after discussion with patient and family agreed to keep patient on Brilanta to prevent in-stent restenosis. Patient began having chest pain with BP 189/60 at the time. Troponin was elevated without changes on EKG. Pain was alleviated with BP control and nitroglycerin. Echo was ordered which showed pHTN and mildly reduced EF. Troponins trended forpeak, high dose statin started. Patient completed 72h of IV PPI and had resolution of GIB, without further episodes of hematemesis or melena. Hgb remained relatively stable, only required 1 further unit of pRBC. Tolerated dialysis well, except for swelling of RUE after last dialysis session. Nephrology to evaluate R arm. Follow ups: Timing of LHC Continue BID PPI, call GI if recurrent bleed (melena OK as he clears GI tract) Continue brillinta and asa at this time HD per nephro, fistula fully functional at this time Monitor RUE - consider evaluation and treatment for DVT if symptoms fail to improve Last 24 hour events (major events): - no acute events overnight - transfused 1u pRBC yesterday AM with appropriate rise in Hgb - successfully underwent dialysis with net UF of 1.5 L Subjective: Patient states feeling well. No emesis. Last BM on 01/11. Denies dizziness, sat in chair yesterday. Hedoes note swelling of his R arm after dialysis, states similar episode in the past related to a permcath that had to have vascular intervention (?sounds like catheter associated UE DVT). No pain, numbness, tingling in arm, but patient does note that it is a bit cool. He feels it is getting better withtime. Ventilator Bundle: Sedation/Analgesia: not sedated Stress ulcer prophylaxis: on Protonix PPI DVT prophylaxis: on Brilanta Nutrition: NPO past midnight Lines (with dates): L PIV 01/10, L PIV 01/10, Left neck PIV d/c, R PIV 01/10 (AV Fistula on R side) Woodard: n/a Intake/Output: Intake/Output Summary (Last 24 hours) at 01/14/2019 1029 Last data filed at 01/13/2019 2100 Gross per 24 hour Intake 150 ml Output 1500 ml Net -1350 ml Physical Exam: Temp: [36.2 C (97.2 F)-36.8 C (98.2 F)] Heart Rate (monitor): [72-99] Pulse: [72-100] Resp: [14-23] BP: (91-149)/(33-109) MAP (mmHg): [56-123] Constitutional: alert and oriented; no apparent distress HEENT: extraocular movements intact, normocephalic atraumatic Resp: clear to auscultation bilaterally Cardio: regular rate and rhythm GI: soft; non-tender; non-distended; normoactive bowel sounds Ext: RUE (mainly hand and forearm) swollen compared to L arm, radial pulses faint bilaterally. Fingertips cool on R side without cyanosis. ROM and sensation intact. Fistula with palpable thrill and good bruit. Labs (pertinent only)/Imaging: Hgb 9 Cr 4.85 Echo 01/12 - The overall left ventricular function appears low normal to mildly reduced. LVEF=45-50%. - Distal inferoseptal/inferior moderate hypokinesis. - Grade II diastolic dysfunction with elevated LAP. - RV is moderate to severely dilated and RV systolic function is mildly reduced. - Mild LAE. - Severe pulmonary HTN with RVSP elevated at >60mmHg. - Small mostly posterior pericardial effusion with no echocardiographic indications of cardiac tamponade. Microbiology: none Assessment/Plan: Yusuf Bah is a 53 year old male admitted with : Neuro Sedation/Analgesia: other: None Resp -No acute Issue -Not intubated Cardiovascular Pressors (mcg/kg/min): other: Not on Pressors #CAD s/p 6 Stents within the past 2 weeks #Troponemia, Type 1 vs Type 2 VA #HTN/HLD #Pulmonary HTN #Chronic diastolic heart failure, possible chronic systolic heart failure EF 45- 50% Comment: On Brilinta & ASA. Cardiology visited family and had discussion about risk vs benefits of staying on Brilinta in setting of upper GI bleed. Patient and family agreed to stay on Brilinta. In addition, patient reported chest pain in setting of hypertension and elevating troponin. EKG was done twice and showed no changes. Concern for NSTEMI vs demand ischemia - Cards following patient - Staying on Brillinta for now; will hold if worsening hematemesis - BP control FEN/GI Stress ulcer prophylaxis: PPI Nutrition: Renal I #UGIB likely 2/2 Brilinta & ASA use Comment: Hgb stable, EGD without source of bleeding -GI following patient -completed protonix drip, now BID - s/p 5 u pRBC -H/H QAM and PRN bleeding -Maintain Hgb > 8 since patient has CAD ID -No acute issues Renal #ESRD on HD MWF Comment: last HD session this morning, lasted only for 1 hr, prior to him having hematemesis. -Consult Nephrology for HD needs Endo #DM2 (not on any meds) Comment: per patient's report, last A1C checked 2 wks ago was 7.0, has been managing it with Diet, not on any meds. -SSI -monitor Other #R arm swelling, concern for DVT Comment: other than slight coolness of fingers, patient without signs of vascular compromise. UE DVTrarely cause PE in comparison to LE DVT and patient is currently being treated for severe GIB (relative contraindication for AC even if DVT found). Nephro called to evaluate R arm. -monitor closely, consider ultrasound and or vascular consultation if worsening -elevate affected extremity Dispo: MICU Prognosis: Guarded Code status: FULL Anabel Win M.D. Internal Medicine PGY-2 Doctor Number: [id number] Pager Number: [phone] Taylor Castillo MD - 01/14/2019 12:16 AM CDT MICU Progress/Transfer Note Date of Service: 01/14/2019 00:16 Reason for ICU admission: hematemesis ICU Day: 4 Intubation Day: n/a Code Status: Full Last 24 hour events (major events): - no acute events overnight - transfused 1u pRBC yesterday AM with appropriate rise in Hgb - successfully underwent dialysis Subjective: Patient states feeling well. No emesis. Last BM on 01/11. Denies dizziness, sat in chair yesterday. Hedoes note swelling of his R arm after dialysis, states similar episode in the past related to a permcath that had to have vascular intervention (?sounds like catheter associated UE DVT). No pain, numbness, tingling in arm, but patient does note that it is a bit cool. He feels it is getting better withtime. Ventilator Bundle: Sedation/Analgesia: not sedated Stress ulcer prophylaxis: on Protonix PPI DVT prophylaxis: on Brilanta Nutrition: NPO past midnight Lines (with dates): L PIV 01/10, L PIV 01/10, Left neck PIV d/c, R PIV 01/10 (AV Fistula on R side) Woodard: n/a Intake/Output: Intake/Output Summary (Last 24 hours) at 01/14/2019 0016 Last data filed at 01/13/2019 1411 Gross per 24 hour Intake 420 ml Output 1500 ml Net -1080 ml Physical Exam: Temp: [36.2 C (97.2 F)-37 C (98.6 F)] Heart Rate (monitor): [83-99] Pulse: [82-99] Resp: [14-26] BP: (91-149)/(39-109) Arterial Line BP: (97-130)/(46-55) MAP (mmHg): [58-123] MAP: [65 mmHg-80 mmHg] Constitutional: alert and oriented; no apparent distress HEENT: extraocular movements intact, normocephalic atraumatic Resp: clear to auscultation bilaterally Cardio: regular rate and rhythm GI: soft; non-tender; non-distended; normoactive bowel sounds Ext: RUE (mainly hand and forearm) swollen compared to L arm, radial pulses faint bilaterally. Fingertips cool on R side without cyanosis. ROM and sensation intact. Fistula with palpable thrill and good bruit. Labs (pertinent only)/Imaging: Hgb 9 Cr 4.85 Echo / - The overall left ventricular function appears low normal to mildly reduced. LVEF=45-50%. - Distal inferoseptal/inferior moderate hypokinesis. - Grade II diastolic dysfunction with elevated LAP. - RV is moderate to severely dilated and RV systolic function is mildly reduced. - Mild LAE. - Severe pulmonary HTN with RVSP elevated at >60mmHg. - Small mostly posterior pericardial effusion with no echocardiographic indications of cardiac tamponade. Microbiology: none Assessment/Plan: Yusuf Bah is a 53 year old male admitted with : Neuro Sedation/Analgesia: other: None Resp -No acute Issue -Not intubated Cardiovascular Pressors (mcg/kg/min): other: Not on Pressors #CAD s/p 6 Stents within the past 2 weeks #Troponemia, Type 1 vs Type 2 VA #HTN/HLD #Pulmonary HTN #Chronic diastolic heart failure, possible chronic systolic heart failure EF 45- 50% Comment: On Brilinta & ASA. Cardiology visited family and had discussion about risk vs benefits of staying on Brilinta in setting of upper GI bleed. Patient and family agreed to stay on Brilinta. In addition, patient reported chest pain in setting of hypertension and elevating troponin. EKG was done twice and showed no changes. Concern for NSTEMI vs demand ischemia - Cards following patient - Staying on Brillinta for now; will hold if worsening hematemesis - BP control FEN/GI Stress ulcer prophylaxis: PPI Nutrition: Renal I #UGIB likely 2/2 Brilinta & ASA use Comment: Hgb stable, EGD without source of bleeding -GI following patient -completed protonix drip, now BID - s/p 5 u pRBC -H/H QAM and PRN bleeding -Maintain Hgb > 8 since patient has CAD ID -No acute issues Renal #ESRD on HD [facility] Comment: last HD session this morning, lasted only for 1 hr, prior to him having hematemesis. -Consult Nephrology for HD needs Endo #DM2 (not on any meds) Comment: per patient's report, last A1C checked 2 wks ago was 7.0, has been managing it with Diet, not on any meds. -SSI -monitor Other #R arm swelling, concern for DVT Comment: other than slight coolness of fingers, patient without signs of vascular compromise. UE DVTrarely cause PE in comparison to LE DVT and patient is currently being treated for severe GIB (relative contraindication for AC even if DVT found) -monitor closely, consider ultrasound and or vascular consultation if worsening -elevate affected extremity Dispo: MICU Prognosis: Guarded Code status: FULL Taylor Anderson MD 01/14/2019 4:26 AM Internal Medicine [id number] Hospital course: Yusuf Bah is a 53 year-old man with PM of HTN, HLD, CAD s/p 6 stents within 2-3 weeks (on Brilinta), DM2 (not on meds), ESRD on HD ([facility]), was transferred here from [facility] ED for hematemesis associated with Brilanta and ASA use. Last dose of Brilanta was the night prior to admission; primary useis to prevent rethrombosis of stent. Re[facility] 6 stents over the past [facility] at [facility] c/b one-time stent stenosis and rethrombosis. Patient reported vomiting 700 cc of maroon/dark blood prior to admission. Due to persistent Hgb <8 and another episode of 300 cc hematemesis, he received 4 units of pRBC over the first 24 hours. Patient underwent EGD on day 1, which was unable to identify the source of bleeding due to heavy presence of clot. EGD was performed again the following day, unable to identify source of blood loss. Cardiology after discussion with patient and family agrees to keep patient on Brilanta to prevent in-stent restenosis. Patient began having chest pain with BP 189/60 at the time. Troponin has been elevating without changes on EKG. Pain was alleviated with BPcontrol and nitroglycerin. Echo was ordered which showed pHTN and mildly reduced EF. Troponins trended for peak, high dose statin started. Patient completed 72h of IV PPI and had resolution of GIB, without further episodes of hematemesis or melena. Hgb remained relatively stable, only required 1 further unit of pRBC. Tolerated dialysis well, except for swelling of RUE after last dialysis session. Follow ups: Timing of LHC Continue BID PPI, call GI if recurrent bleed (melena OK as he clears GI tract) Continue brillinta and asa at this time HD per nephro, fistula fully functional at this time Monitor RUE - consider evaluation and treatment for DVT if symptoms fail to improve Associated attestation - Prakash Davis MD - 01/14/2019 9:04 AM CDTAttending History Supplement: I personally examined the patient on 01/14/2019 and agree with the 's note as written . I actively participated in the decision-making process. Please see the resident's note for additional details. Yusuf Bah is a 53 year old male with UGI bleed and recent PCI. Continue with Brilanta and PPI. Hg 9.0 this morning. No further episode of bleeding. Evaluate AV fistula if continue to have arm swelling. Ok to tfr to floor. Prakash Davis MD, MPH Professor & Director Division of Pulmonary Critical Care and Sleep Medicine Director MICU/TD-ICU [phone] MD - 01/13/2019 5:42 PM CDT Brief MICU Note Date: 01/13/2019 17:42 ICU day: 4 Intubation Day: n/a Code Status: Full 12 Hour Events (should include: major events throughout the day, patient status , significant labs, radiology, consult updates): - No episodes of hematemesis, melena or hematochezia - Patient tolerating diet well - HD done today with net UF of 1500 ml taken off - Hgb 7.8, given 1 unit PRB, repeat HGB: 9.2 - on PPI gtt - R arm swelling after dialysis, fistula not compromised. Movement and sensation intact. Will monitor for now. Family update: Family at bedside, updated on plan Plan for next 12 hours (should include: anticipated events, complications to watch for, pending labs/radiology/consults): - d/c PPI gtt at 2200 - start patient on PPI BID - f/u on HGB in AM - Monitor for any GI bleed Anabel Win MD Jensen Mendieta PT - 01/13/2019 4:32 PM CDT01/13/2019 4:32 PM Patient agreeable to working with physical therapy. Patient met Semi reclined in bed. PHYSICAL THERAPY EVALUATION Consult received, chart reviewed and evaluation complete this date. Patient is referred to PT for evaluation and treatment. Patient is a 53 year old male who presents to hospital for gib . Discharge Recommendations: -Primary Discharge Plan: Rehabilitation hospital Equipment recommendations: To be decided as patient able to tolerate further therapy Full evaluation note to follow within 24 hours. Jensen Mayorga PT, DPT Pager Number: [phone] Taylor Castillo MD - 01/13/2019 12:04 AM CDT MICU Progress Note Date of Service: 01/13/2019 00:04 Reason for ICU admission: hematemesis ICU Day: 3 Intubation Day: n/a Code Status: Full Last 24 hour events (major events): - repeat EGD without active bleeding - Hgb stable at 8.5 but then dropped to 7.8, transfusion initiated per cards Subjective: Patient without hematemesis over the last 24+ hours. Ventilator Bundle: Sedation/Analgesia: not sedated Stress ulcer prophylaxis: on Protonix PPI DVT prophylaxis: on Brilanta Nutrition: NPO past midnight Lines (with dates): L PIV 01/10, L PIV 01/10, Left neck PIV d/c, R PIV 01/10 (AV Fistula on R side) Woodard: n/a Intake/Output: Intake/Output Summary (Last 24 hours) at 01/13/2019 0004 Last data filed at 01/12/2019 2100 Gross per 24 hour Intake 1057 ml Output Net 1057 ml Physical Exam: Temp: [36 C (96.8 F)-36.9 C (98.4 F)] Heart Rate (monitor): [82-98] Pulse: [82-98] Resp: [11-21] BP: (148)/(65) Arterial Line BP: (115-178)/(48-71) MAP (mmHg): [90] MAP: [71 mmHg-97 mmHg] Constitutional: alert and oriented; no apparent distress HEENT: extraocular movements intact, normocephalic atraumatic Resp: clear to auscultation bilaterally Cardio: regular rate and rhythm GI: soft; non-tender; non-distended; normoactive bowel sounds MSK: no clubbing, cyanosis, or edema Labs (pertinent only)/Imaging: reviewed Troponin I: 2.29->2.99->2.65 Echo 01/12 - The overall left ventricular function appears low normal to mildly reduced. LVEF=45-50%. - Distal inferoseptal/inferior moderate hypokinesis. - Grade II diastolic dysfunction with elevated LAP. - RV is moderate to severely dilated and RV systolic function is mildly reduced. - Mild LAE. - Severe pulmonary HTN with RVSP elevated at >60mmHg. - Small mostly posterior pericardial effusion with no echocardiographic indications of cardiac tamponade. Microbiology: none Assessment/Plan: Yusuf Bah is a 53 year old male admitted with : Neuro Sedation/Analgesia: other: None Resp -No acute Issue -Not intubated Cardiovascular Pressors (mcg/kg/min): other: Not on Pressors #CAD s/p 6 Stents within the past 2 weeks #Troponemia, Type 1 vs Type 2 VA #HTN/HLD #Pulmonary HTN #Chronic diastolic heart failure, possible chronic systolic heart failure EF 45- 50% Comment: On Brilinta & ASA. Cardiology visited family and had discussion about risk vs benefits of staying on Brilinta in setting of upper GI bleed. Patient and family agreed to stay on Brilinta. In addition, patient reported chest pain in setting of hypertension and elevating troponin. EKG was done twice and showed no changes. Concern for NSTEMI vs demand ischemia - Cards following patient - Staying on Brillinta for now; will hold if worsening hematemesis - BP control FEN/GI Stress ulcer prophylaxis: PPI Nutrition: NPO #UGIB likely 2/2 Brilinta & ASA use Comment: Hgb stable, EGD without source of bleeding -GI following patient -C/w Protonix gtt for 72 total hours (end tonight at 2200) - s/p 4 u pRBC -H/H Q8H -Maintain Hgb > 8 since patient has CAD - transfusing now ID -No acute issues Renal #ESRD on HD MWF Comment: last HD session this morning, lasted only for 1 hr, prior to him having hematemesis. -Consult Nephrology for HD needs Endo #DM2 (not on any meds) Comment: per patient's report, last A1C checked 2 wks ago was 7.0, has been managing it with Diet, not on any meds. -SSI -monitor Dispo: MICU Prognosis: Guarded Code status: FULL Taylor Anderson MD 01/13/2019 3:57 AM Internal Medicine [id number] Hospital course: Yusuf Bah is a 53 year-old man with PM of HTN, HLD, CAD s/p 6 stents within 2-3 weeks (on Brilinta), DM2 (not on meds), ESRD on HD ([facility]), was transferred here from [facility] ED for hematemesis associated with Brilanta and ASA use. Last dose of Brilanta was the night prior to admission; primary useis to prevent rethrombosis of stent. Re[facility] 6 stents over the past [facility] c/b one-time stent stenosis and rethrombosis. Patient reported vomiting 700 cc of maroon/dark blood prior to admission. Due to persistent Hgb <8 and another episode of 300 cc hematemesis, he received 4 units of pRBC over the first 24 hours. Patient underwent EGD on day 1, which was unable to identify the source of bleeding due to heavy presence of clot. EGD is replanned for the following day with Reglan initiated. Cardiology after discussion with patient and family agrees to keep patient on Brilanta to prevent in-stent restenosis. Towards the end of atient complained of chest pain. BP 189/60 at the time. Troponin has been elevating without changes on EKG. Pain was alleviated with BP control and nitroglycerin. Plan for echo the following day. Associated attestation - Prakash Davis MD - 01/13/2019 9:22 AM CDTAttending History Supplement: I personally examined the patient on 01/13/2019 and agree with the 's note as written . I actively participated in the decision-making process. Please see the resident's note for additional details. Yusuf Bah is a 53 year old male with UGI bleed and recent PCI. Repeat EGD did not show any actively bleeding lesion. Peaked TrI 2.9. Hg 7.8 this morning. Keep Hg 8.0-9.0. Continue with PPI. Prakash Davis MD, MPH Professor & Director Division of Pulmonary Critical Care and Sleep Medicine Director [facility]-ICU [phone] Barrientos MD - 01/12/2019 4:38 PM CDTBrief GI Procedure Note Formal note to follow in [facility]. EGD performed. Normal esophagus, normal GE junction. Stomach normal in appearance with small amount of old heme but no evidence of fresh blood and no identifiable source of bleed. Duodenal bulb and D2 were normal without any evidence of blood or source of bleeding. Recommendations: --could not identify source of bleeding; may be a Dieulafoy lesion with intermittent bleeding --if were to have recurrent hematemesis, please call GI fellow wildlife policy professional for urgent endoscopy (we expect that he should have some melena, however, as he clears his GI tract of blood) --continue to trend Hb q8 hrs; maintain Hb >8 given cardiac status --continue PPI gtt for 72 hours total and can then transition to BID dosing --can discontinue Reglan --continue Brillinta and ASA given recent PCI; management of NSTEMI per cardiology Please page if questions or if change in clinical picture. Kirsten Barrientos MD Gastroenterology and Hepatology Fellow Pager: [phone] PGY-5 Tess Murray MD - 01/12/2019 4:26 PM CDT 53 years old male with NSTEMI ,CAD s/p multiple PCI OSH , UGIB, ESRD on HD HTN , DM2, diet Troponin increased to 2.9 from 1.6 and Echo showed inferior hypokenesis . Will keep trending troponin and may do LHC if troponin continue to increase . Plan : Trend troponin , and will give addition dose of Brilanta and keep HB above 8 . Please follow up troponin and contact Dr Adkins Plan discussed with Dr Jed Bansal PGy-4 General Cardiology fellowElectronically signed by Tess Bansal MD at 2018 4:31 PM Vick Cortez RN - 01/12/2019 3:49 PM CDTCare Management Social Functional Assessment Patient Name: Yusuf Bah Age: [age] year old Sex: male Previous admit date: N/A Current diagnosis and co-morbidities: gib Readmission Questions: Was patient discharged from any acute care hospital within the last 30 days: No Social Functional Assessment: Primary language spoken/preferred: Turkmen Mental Status: Alert & Oriented to Person,Place & Time Information given by: Self Patient's support system: Child Name and number of support system: Pilar Elias daughter [phone]; Sudha Bah [phone] Primary Watershed Manager: Self MPOA: No Living Arrangement: Home Address of living arrangement : [address] [place] [address] Persons living in home: Self Barriers to returning home: Declining function Baseline functional status- ambulation: Requires minimal to moderate assistance Functional status-baseline personal care: Independent Baseline functional status- driving: Dependent Baseline functional status- grocery shopping: Requires minimal to moderate assistance Functional status-baseline housekeeping: Requires minimal to moderate assistance Functional status-baseline meal prep: Requires minimal to moderate assistance Current functional status same as prior: Yes Do you have a PCP?: Yes Name of PCP: GRETCHEN MURPHY Home Health Care Agency: No Provider Services: No DME Company: No Equipment: Walker Hemodialysis: Yes Dialysis Facility: [address] [address] (P) [phone] (f) [phone] Dialysis Schedule: MWF Dialysis Time: 0600 Mode of Transportation: Family Type of Access: AV Fistula Funding Resources: Commercial;Medicare A & B;Supplement/Secondary Prescription coverage plan: [facility] Pharmacy where meds are filled: Other Other pharmacy: [facility] [place] Anticipated services prior to disharge: Continue Medical Eval Expected mode of discharge transportation: Personal vehicle;Same as support system Additional info required for discharge planning: Pending medical evaluation; Pending P/T O/T recommendation Recommended discharge plan: Home SFA Complete: Social Functional Assessment complete: Yes Alcohol Use Screening (AUDIT-C) How often do you have a drink containing alcohol?: Never SCORE: 0 Did patient elect to have resources provided: No Role of Care Management explained. Cm met with patient and patient daughter at bedside. Patient's daughter will be able to provide transportation at discharge. Patient's daughter will mushroom picker medication and drives patient to HD sessions. Ramsey Vázquez Jr. RN, BSN. Health Information Internship [phone] [email or web address] allorie Culp OT - 01/12/2019 3:12 PM CDT01/12/2019 1512 OCCUPATIONAL THERAPY NOTE: Consult received and chart reviewed. Per Epic, troponin levels continue to trend up now at 1.610. Will hold evaluation for today and initiate when medically appropriate. Thank you, Robert Culp OTR, [facility] Pager [phone] License # [id number] Yovanny hernandez PT - 01/12/2019 2:48 PM CDTPT Note: Consult received and Epic reviewed. Per Epic, Troponins elevated and continue to rise from .783 to 1.610. Will hold therapy today and continue to follow, initiating PT evaluation with mobility trainingwhen medically appropriate and able to actively participate. [place] [address] Dept [address] aye Meadows MD - 01/12/2019 1:59 PM CDT Cardiology Progress Note 01/12/2019 14:00 2:00 PM Requesting Service: MICU Cc: Hematemesis Reason for admission: UGIB while on Brilinta for recent PCI Reason for consult: Brilinta management 24-hr events - EGD done, results indeterminate due to heavy clots - received another 2U of pRBC, total 4 U given since admission - patient had HD yesterday and complained of substernal chest pain in the setting of hypertension, increased troponin, and unchanged EKG - trop elevated from 0.718 -> 0.783 -> 1.610 - Bedside echo showed LV segmental hypokinesis - pending formal echo Subjective: I saw and examined the patient this morning. No complaints of current chest pain. Denies SOB, palpitations, perspirations, abdominal pain, and hematemesis. Physical Exam: Vitals: 01/12/19 0800 01/12/19 0824 01/12/19 1000 01/12/19 1200 BP: Pulse: 90 89 90 93 Resp: Temp: 36.4 C (97.5 F) TempSrc: Tympanic SpO2: 95% 97% 95% Weight: Height: 01/11 0700 - 01/12 0659 In: 748.3 [I.V.:218.3] Out: 1000 Vitals Temp: [36 C (96.8 F)-37 C (98.6 F)] Heart Rate (monitor): [77-101] Pulse: [77-102] Resp: [11-22] BP: (0-189)/(0-72) Arterial Line BP: (124-189)/(44-66) MAP (mmHg): [0-90] MAP: [70 mmHg-97 mmHg] Vitals: 01/12/19 0800 01/12/19 0824 01/12/19 1000 01/12/19 1200 BP: Pulse: 90 89 90 93 Resp: 04 26 19 13 Temp: 36.4 C (97.5 F) TempSrc: Tympanic SpO2: 95% 97% 95% Weight: Height: SpO2 readings for the past 24 hrs: SpO2 01/11/19 1425 100 % 01/11/19 1445 100 % 01/11/19 1700 100 % 01/11/19 1737 100 % 01/11/19 1745 100 % 01/11/19 1750 100 % 01/11/19 1800 100 % 01/11/19 1815 100 % 01/11/19 1830 100 % 01/11/19 1844 100 % 01/11/19 1845 100 % 01/11/19 1911 100 % 01/11/19 2037 100 % 01/11/19 2052 100 % 01/11/19 2100 100 % 01/11/19 2115 100 % 01/11/19 2130 100 % 01/11/19 2200 100 % 01/11/19 2230 100 % 01/11/19 2300 99 % 01/11/19 2330 100 % 01/11/19 2345 100 % 01/12/19 0000 100 % 01/12/19 0015 100 % 01/12/19 0030 98 % 01/12/19 0200 98 % 01/12/19 0400 100 % 01/12/19 0515 93 % 01/12/19 0530 94 % 01/12/19 0545 93 % 01/12/19 0600 94 % 01/12/19 0800 95 % 01/12/19 0824 97 % 01/12/19 1200 95 % Intake/Output Summary (Last 24 hours) at 01/12/2019 1400 Last data filed at 01/12/2019 0030 Gross per 24 hour Intake 748.3 ml Output 1000 ml Net -251.7 ml Constitutional: Drowsy Cardiovascular: RRR, no MRG Respiratory: CTAB Gastrointestinal: nontender to palpation Musculoskeletal/Integumentary/Ext: No lower extremity edema Neurological: Coherent to conversation, no focal deficits Skin: no apparent rashes Labs/Imaging/Pathology - reviewed EKG : 01/11/2019: normal sinus rhythm, questionable change in initial forces of anterior leads 01/10/2019: normal sinus rhythm, left axis deviation Echocardiography : - pending Nuclear imaging : N/A Cardiac Cath : Hx of 2 VA's in the past 2-3 weeks, pending OSH records Assessment/Plan: Yusuf Bah is a 53 year old male admitted with: CAD s/p multiple PCI and reported 2 past VA's, records pending from OSH NSTEMI vs Type II VA UGIB ESRD HTN HLD DM2, diet controlled Mr. Bah is a 53 y/o male with past medical history stated above. Of note, patient had two MIs over the past 2-3 weeks where he has received multiple stents (reportedly six). PCIs were done in [facility]. Patient went to HD on Tuesday, 01/10, and reports to have vomited 600 mL of bright red blood. No abdominal pain or nausea. Last BM 3 days ago, no melena or hematochezia reported.He has had multiple episodes of hematemesis since admission. Hgb was 9.1 on arrival and went down to 7.0. Given 2U RBCs andlast Hgb is 8.6. Hemodynamically stable. Cardiology consulted for continuation of Brilinta. Patient had HD yesterday and complained of substernal chest pain in the setting of hypertension, increased troponin, and unchanged EKG - trop elevated from 0.718 -> 0.783 -> 1.610 Awaiting echo results. Recommendations - As stated before, we would like to ideally keep Brilinta on, but if there is an emergent bleed risk it would be beneficial for the primary team to reassess the need for Brilinta. - Now that the troponins are significantly trending upwards, please trend troponins. - Recommend starting high dose statin (lipitor 80mg) and beta hayes, if tolerable, for ACS. Thank you again for the consult The care, plan, and management of this patient was discussed with Dr. Adkins, a Faculty Attending Taye Meadows MD Internal Medicine PGY1 [facility] Team Pager [phone] Associated attestation - Felisa Adkins MD - 01/17/2019 4:01 PM CDTI personally examined the patient on 01/12/[address] Meadows resident note as written. I actively participated in the decision-making process. Please see the resident's note for additional details. Barbara Pollack MD - 01/12/2019 9:54 AM CDTMICU SHORT NOTE Date of Service: 01/12/2019 Date of Admission: 01/10/2019 Time: 9:54 AM ICU Day #: 3 Intubation Day #: N/A Reason for ICU admission: Hematemesis Last 12 hour events: -1 small episodes of non-bloody emesis -No BMs since yesterday morning -Troponin 0.718>0.783>1.610 >2.290, no chest pain or new EKG changes however, cardiology rose marie board & aware, advised given an additional dose of Brilinta for now (given at 1600). -GI plans for EGD today, EGD did not show any active bleeding or identifiable source, could be Dieulafoey lesion with intermittent bleeding -HD was not done today, patient is currently stable, K is wnl & patient is not uremic, will do HD tmrw -Echo today shows: no baseline echo on file for comparison -The overall left ventricular function appears low normal to mildly reduced. LVEF=45-50%. - Distal inferoseptal/inferior moderate hypokinesis. - Grade II diastolic dysfunction with elevated LAP. - RV is moderate to severely dilated and RV systolic function is mildly reduced. - Mild LAE. - Severe pulmonary HTN with RVSP elevated at >60mmHg. - Small mostly posterior pericardial effusion with no echocardiographic indications of cardiac tamponade. Family Update: yes, at bedside, are aware of all findings & plan & are in agreement. Next 12 Hour events --if were to have recurrent hematemesis, please call GI fellow wildlife policy professional for urgent endoscopy (we expect that he should have some melena, however, as he clears his GI tract of blood) --continue to trend Hb q8 hrs; maintain Hb >8 given cardiac status --continue PPI gtt for 72 hours total and can then transition to BID dosing -C/w trending troponins, if continuing to up trend or if chest pain occurs with any EKG changes, call gastroenterology nurse wildlife policy professional. -C/w Brilinta BID dosing, next dose should be at 9PM -HD tmrw Barbara Pollack MD Internal Medicine PGY-2 James Lal MD - 01/12/2019 3:53 AM CDT MICU Progress Note Date of Service: 01/11/2019 21:58 Reason for ICU admission: hematemesis ICU Day: 2 Intubation Day: n/a Code Status: Full Last 24 hour events (major events): - Daytime EGD, indeterminate results due to heavy clots - Hgb continues to drop below 8, received 2 units of pRBC (4 total now) - HD for 2 hours - After HD around 7 pm, complained of substernal chest pain in the setting of hypertension (189/60),increased troponin, but unchanged EKG - given IV labetalol 10 mg, hydralazine 10 mg, nitroglyceride x3 - Bedside echo shows LV segmental hypokinesis, plan for morning echocardiogram Subjective: Patient complained of 5/10 substernal chest pain that radiates to his left shoulder. Pain is alleviated by nitro and blood pressure control. Feeling better around midnight. No dry heaving. Ventilator Bundle: Sedation/Analgesia: not sedated Stress ulcer prophylaxis: on Protonix PPI DVT prophylaxis: on Brilanta Nutrition: NPO past midnight Lines (with dates): L PIV 01/10, L PIV 01/10, Left neck PIV d/c, R PIV 01/10 (AV Fistula on R side) Woodard: n/a Intake/Output: Intake/Output Summary (Last 24 hours) at 01/11/20192157 Last data filed at 01/11/2019 1911 Gross per 24 hour Intake 1889.3 ml Output 1300 ml Net 589.3 ml Physical Exam: Temp: [36 C (96.8 F)-37.2 C (98.9 F)] Heart Rate (monitor): [77-101] Pulse: [77-101] Resp: [12-25] BP: (0-189)/(0-105) Arterial Line BP: (135-189)/(44-62) MAP (mmHg): [0-117] MAP: [70 mmHg-92 mmHg] Constitutional: alert and oriented; no apparent distress; sleeping at the time of assessment HEENT: pupils equal, round, reactive to light; extraocular movements intact; oropharynx clear; moistmucous membranes, normocephalic atraumatic Resp: clear to auscultation bilaterally Cardio: S1, S2 normal; no murmurs, rubs or gallops, regular rate and rhythm GI: soft; non-tender; non-distended; normoactive bowel sounds MSK: no clubbing, cyanosis, or edema Integ: no rashes Neuro: unchanged from baseline Labs (pertinent only)/Imaging: reviewed Troponin I: 0.718 after HD -> 0.783 Microbiology: none Assessment/Plan: Yusuf Bah is a 53 year old male admitted with : Neuro Sedation/Analgesia: other: None Resp -No acute Issue -Not intubated Cardiovascular Pressors (mcg/kg/min): other: Not on Pressors #CAD s/p 6 Stents within the past 2 weeks #Troponemia, Type 1 vs Type 2 VA #HTN/HLD Comment: On Brilinta & ASA. Cardiology visited family and had discussion about risk vs benefits of staying on Brilanta in setting of upper GI bleed. Patient and family agreed to stay on Brilanta. In addition, patient reported chest pain in setting of hypertension and elevating troponin. EKG was done twice and showed no changes. Likely NSTEMI type 2 vs unstable angina - Cards following patient - Staying on Brilanta for now; will hold with worsening hematemesis -Trend Troponins until peak - BP control - Plan echo on 01/12 -Holding PO meds for now given N/V FEN/GI Stress ulcer prophylaxis: PPI Nutrition: NPO #UGIB likely 2/2 Brilinta & ASA use Comment: Hgb dropped twice during the night. Concerned about AVM given hx of ESRD. EGD was performedon 01/12 but poorly visualized due to clots. -GI following patient -C/w Protonix gtt - s/p 4 u pRBC -H/H Q4H - c/w Reglan to improve passage of clot - Plan to repeat EGD on 01/12 -Maintain Hgb > 8 since patient has CAD ID -No acute issues Renal #ESRD on HD MWF Comment: last HD session this morning, lasted only for 1 hr, prior to him having hematemesis. -Consult Nephrology for HD needs Endo #DM2 (not on any meds) Comment: per patient's report, last A1C checked 2 wks ago was 7.0, has been managing it with Diet, not on any meds. -SSI -A1C -monitor Dispo: MICU Prognosis: Guarded Code status: FULL Hospital course: Yusuf Bah is a 53 year-old man with PM of HTN, HLD, CAD s/p 6 stents within 2-3 weeks (on Brilinta), DM2 (not on meds), ESRD on HD (MWF), was transferred here from [facility] ED for hematemesis associated with Brilanta and ASA use. Last dose of Brilanta was the night prior to admission; primary useis to prevent rethrombosis of stent. Received 6 stents over the past 3 weeks at [facility] c/b one-time stent stenosis and rethrombosis. Patient reported vomiting 700 cc of maroon/dark blood prior to admission. Due to persistent Hgb <8 and another episode of 300 cc hematemesis, he received 4 units of pRBC over the first 24 hours. Patient underwent EGD on day 1, which was unable to identify the source of bleeding due to heavy presence of clot. EGD is replanned for the following day with Reglan initiated. Cardiology after discussion with patient and family agrees to keep patient on Brilanta to prevent in-stent restenosis. Towards the end of atient complained of chest pain. BP 189/60 at the time. Troponin has been elevating without changes on EKG. Pain was alleviated with BP control and nitroglycerin. Plan for echo the following day. James Mccullough MD Internal Medicine PGY1 [facility] Team Pager#: [phone] Associated attestation - Prakash Davis MD - 01/12/2019 9:04 AM CDTAttending History Supplement: I personally examined the patient on 01/12/2019 and agree with the 's note as written . I actively participated in the decision-making process. Please see the resident's note for additional details. Yusuf Bah is a 53 year old male with UGI bleed and recent PCI. Labs reviewed Require 2U PRBC overnight. Hg .9.0 this morning S/p HD and 2l net neg Continue with PPI and Brilinta Plan for repeat EGD today. Prakash Davis MD, MPH Professor & Director Division of Pulmonary Critical Care and Sleep Medicine Director MICU/TD-ICU [phone], Phillip, PT - 01/11/2019 2:15 PM CDTPT Note: Consult received and Epic reviewed. Attempted to see this PM however patient currently away from room undergoing procedure. Will f/u later this day as time permits[place] [address] Dept 87581 allorie Culp OT - 01/11/2019 2:11 PM CDT01/11/2019 1411 OCCUPATIONAL THERAPY NOTE: Consult received and chart reviewed. Per nurse, patient out of room for procedure at this time. Pt also scheduled for dialysis this afternoon, per epic. Will attempt initial evaluation at a later time as schedule permits. Thank you, Robert Culp OTR, [facility] Pager [phone] License # [id number] Barbara Tobias MD - 01/11/2019 10:08 AM CDTMICU SHORT NOTE Date of Service: 01/11/2019 Date of Admission: 01/10/2019 Time: 10:08 AM ICU Day #: 2 Intubation Day #: N/A Reason for ICU admission: UGIB while on Brilinta for recent Cardiac stents Last 12 hour events: -Pt's K was 6.9 overnight, given D10 250 bolus with 10U of Insulin, patient does not make much urine, so did not give lasix, repeat K was 5.5, given Kayexalate later on as well & repeat K was 5.2 -Nephrology was also called early this morning given patient's High K & concern for uremia, Performed HD today for 2hrs -GI evaluated patient bedside this morning, faculty was also present & plan for EGD today, either in the Endoscope suite vs. Bedside -Decision was made to hold Brilinta for now given repeat episode of hematemesis & family was notified & are in agreement. -EGD showed: blood clots in the stomach, field was unclear, recommended Reglan 5mg Q8H & c/w PPIfor now & repeat EGD tmrw, if unstable however, then consult IR for CT angiogram & embolization. GI (fellow & faculty okay with restarting Brilinta for now & monitoring closely ). Family Update: yes, at bedside, are aware & in agreement with the decision to hold Brilinta thismorning given that he had another episode of hematemesis. Had another discussion with family after patient had EGD, notified them of the EGD results & theGI recs, family are okay with restarting Brilinta for now & amp; closely monitoring the patient as well. Next 12 Hour events: -If he throws up more blood or decompensates/if he becomes hypotensive, Call GI fellow wildlife policy professional &if they recommend then please consult IR for CT angiogram and embolization of bleeding artery. -Repeat EGD tmrw by GI if stable -H/H Q4H Barbara Pollack MD Internal Medicine PGY-2 Kaz Galloway MD - 01/11/2019 6:46 AM CDTGastroenterology update note - Patient received 1 dose of Brilanta around 8 pm given recent cardiac events. - Pt hemoglobin did not respond overnight and one additional unit of PRBC given - Episode of hematemesis 5 am - Electrolyte abnormalities including worsening potassium level and lactate. BUN increased. - Mental status worsening with planned emergent endotracheal intubation for airway protection Recommended - Obtain EKG, correct K and lactate. - Continue PPI drip - Planning EGD with anesthesia in the ICU after resuscitative measures and based on patient clinicalstatus. Case requested. Kaz Moseley MD Fellow, Gastroenterology & Hepatology Pager: [phone] James Lal MD - 01/11/2019 12:00 AM CDT MICU Progress Note Date of Service: 01/10/2019 23:24 Reason for ICU admission: hematemesis ICU Day: 1 Intubation Day: n/a Code Status: Full Last 24 hour events (major events): - transferred from OSH to [facility] for hematemesis - received 2 u RB - received 1 dose Lasix 20 mg IV - need to f/u on OSH records ([facility]) - need to call Cards and GI - vomited 250 cc blood this morning Subjective: Patient complained of chronic back pain from OA. Said he takes [place] at home for pain. Given IV fentanyl for pain Ventilator Bundle: Sedation/Analgesia: not sedated Stress ulcer prophylaxis: on Protonix PPI DVT prophylaxis: on Brilanta Nutrition: NPO past midnight Lines (with dates): L PIV 01/10, L PIV 01/10, Left neck PIV d/c, R PIV 01/10 (AV Fistula on R side) Woodard: n/a Intake/Output: Intake/Output Summary (Last 24 hours) at 01/10/2019 2324 Last data filed at 01/10/2019 2247 Gross per 24 hour Intake 305 ml Output Net 305 ml Physical Exam: Temp: [35.3 C (95.6 F)-37.1 C (98.8 F)] Heart Rate (monitor): [76-95] Pulse: [76-90] Resp: [10-23] BP: (113-146)/(39-106) MAP (mmHg): [63-105] Constitutional: alert and oriented; no apparent distress; sleeping at the time of assessment HEENT: pupils equal, round, reactive to light; extraocular movements intact; oropharynx clear; moistmucous membranes, normocephalic atraumatic Resp: clear to auscultation bilaterally Cardio: S1, S2 normal; no murmurs, rubs or gallops, regular rate and rhythm GI: soft; non-tender; non-distended; normoactive bowel sounds MSK: no clubbing, cyanosis, or edema Integ: no rashes Neuro: sleeping at the time of assessment Labs (pertinent only)/Imaging: reviewed Microbiology: none Assessment/Plan: Yusuf Bah is a 53 year old male admitted with : Neuro Sedation/Analgesia: other: None Resp -No acute Issue -Not intubated Cardiovascular Pressors (mcg/kg/min): other: Not on Pressors #CAD s/p 6 Stents within the past 2 weeks #Troponemia, Type 1 vs Type 2 VA #HTN/HLD Comment: On Brilinta & ASA. -Consult Cardiology about Brilinta & ASA use -EKG -Echo -Trend Troponins until peak -Holding PO meds for now given N/V -Will give Brilinta & ASA if approved by Cards & GI FEN/GI Stress ulcer prophylaxis: PPI Nutrition: NPO #UGIB likely 2/2 Brilinta & ASA use Comment: Hgb dropped twice during the night -GI following patient -C/w Protonix gtt - s/p 2 u pRBC -H/H Q4H -Maintain Hgb > 8 since patient has CAD ID -No acute issues Renal #ESRD on HD MWF Comment: last HD session this morning, lasted only for 1 hr, prior to him having hematemesis. -Consult Nephrology for HD needs Endo #DM2 (not on any meds) Comment: per patient's report, last A1C checked 2 wks ago was 7.0, has been managing it with Diet, not on any meds. -SSI -A1C -monitor Dispo: MICU Prognosis: Guarded Code status: FULL Hospital course: Yusuf Bah is a 53 year-old man with PM of HTN, HLD, CAD s/p 6 stents within 2-3 weeks (on Brilinta), DM2 (not on meds), ESRD on HD ([place]), was transferred here from [facility] ED for hematemesis associated with Brilanta and ASA use. Last dose of Brilanta was the night prior to admission; primary useis to prevent rethrombosis of stent. Received 6 stents over the past 3 weeks at [facility] c/b one-time stent stenosis and rethrombosis. Patient reported vomiting 700 cc of maroon/dark blood prior to admission. Hgb dropped 9.1 to 7.2, he received 1 u RBC. Continued to have dry heaves throughout the night. James Mccullough MD Internal Medicine PGY1 [facility] Team Pager#: [phone] Associated attestation - Prakash Davis MD - 01/11/2019 8:07 AM CDTSee attestation to H and P.documented in this encounter Plan of Treatment Name Type Priority Associated Diagnoses Date/Time ABG+COOX+NA+K+GLU+CA2+ LAB Routine 01/11/2019 2:26 PM CDT Name Type Priority Associated Order Schedule Diagnoses EKG-12 LEAD ROUTINE HEART STATION STAT ONCE for 1 Occurrences starting 01/10/2019 until 01/10/2019 URINALYSIS LAB FABBY ONCE for 1 Occurrences starting 01/10/2019 until 01/10/2019 URINE CULTURE LAB FABBY ONCE for 1 Occurrences starting 01/10/2019 until 01/10/2019 EKG-12 LEAD ROUTINE HEART STATION STAT ONCE for 1 Occurrences starting 01/10/2019 until 01/10/2019 HELICOBACTER PYLORI ANTIGEN, LAB FABBY ONCE for 1 FECAL BY EIA Occurrences starting 01/10/2019 until 01/10/2019 ABG+COOX+NA+K+GLU+CA2+ LAB STAT STAT for 1 Occurrences starting 01/11/2019 until 01/11/2019 EKG-12 LEAD ROUTINE HEART STATION Routine ONCE for 1 Occurrences starting 01/11/2019 until 01/11/2019 ABG+COOX+NA+K+GLU+CA2+ LAB Routine ONCE for 1 Occurrences starting 01/11/2019 until 01/11/2019 CASE REQUEST: PROCEDURES Routine Hematemesis ONCE for 1 ESOPHAGOGASTRODUODENOSCOPY with nausea Occurrences starting 01/11/2019 until 01/11/2019 EKG-12 LEAD ROUTINE HEART STATION STAT ONCE for 1 Occurrences starting 01/11/2019 until 01/11/2019 EKG-12 LEAD ROUTINE HEART STATION Routine ONCE for 1 Occurrences starting 01/11/2019 until 01/11/2019 EKG-12 LEAD ROUTINE HEART STATION Routine EVERY MORNING AT 4:00 AM until discontinued starting 01/13/2019 BASIC METABOLIC PANEL (NA, K, LAB FABBY EVERY 24 HOURS CL, CO2, GLUCOSE, BUN, (START TIME CREATININE, CA) ADJUSTABLE) until discontinued starting 01/15/2019, 4 completed EKG-12 LEAD ROUTINE HEART STATION STAT ONCE for 1 Occurrences starting 01/15/2019 until 01/15/2019 EKG-12 LEAD ROUTINE HEART STATION STAT ONCE for 1 Occurrences starting 01/16/2019 until 01/16/2019 TROPONIN I LAB Routine EVERY 6 HOURS (START TIME ADJUSTABLE) START TIME ADJUSTABLE for 3 Occurrences starting 01/16/2019 until 01/16/2019, 2 completed EKG-12 LEAD ROUTINE HEART STATION Routine ONCE for 1 Occurrences starting 01/17/2019 until 01/17/2019 Health Maintenance Due Date Last Done Comments HEPATITIS C (HCV) SCREEN 1964 PNEUMOCOCCAL 0-64 YEARS COMBINED 1970 SERIES (1 of 1 - PPSV23) EYE EXAM 1974 LDL-C 1974 FOOT EXAM 1982 DTaP,Tdap,and Td Vaccines (1 - 1983 Tdap) COLONOSCOPY 2014 Zoster Recombinant Vaccine 2014 (SHINGRIX) (1 of 2) INFLUENZA VACCINE 02/11/2019 02/11/2017 HgA1C 07/13/2019 01/10/2019 CREATININE (SERUM) 01/18/2020 01/17/2019, 01/16/2019, 01/15/2019, Additional history exists documented as of this encounter Procedures Procedure Name Priority Date/Time Associated Comments Diagnosis POCT GLUCOSE (AUTOMATED) Routine 01/18/2019 Results for 8:51 AM CDT this procedure are in the results section. PROTHROMBIN TIME / INR Routine 01/18/2019 Results for 4:47 AM CDT this procedure are in the results section. BASIC METABOLIC PANEL (NA, K, Routine 01/18/2019 Results for CL, CO2, GLUCOSE, BUN, 4:37 AM CDT this CREATININE, CA) procedure are in the results section. CREATINE KINASE Add-on 01/18/2019 Results for 4:37 AM CDT this procedure are in the results section. CBC WITH DIFFERENTIAL Routine 01/18/2019 Results for 4:36 AM CDT this procedure are in the results section. CBC WITH DIFF Routine 01/18/2019 Results for 4:36 AM CDT this procedure are in the results section. POCT GLUCOSE (AUTOMATED) Routine 01/17/2019 Results for 8:16 PM CDT this procedure are in the results section. POCT GLUCOSE (AUTOMATED) Routine 01/17/2019 Results for 6:08 PM CDT this procedure are in the results section. POCT GLUCOSE (AUTOMATED) Routine 01/17/2019 Results for 3:18 PM CDT this procedure are in the results section. POCT GLUCOSE (AUTOMATED) Routine 01/17/2019 Results for 8:13 AM CDT this procedure are in the results section. EKG-12 LEAD Routine 01/17/2019 1:37 AM CDT PROFILE / HEMOGRAM Routine 01/17/2019 Results for 1:32 AM CDT this procedure are in the results section. BASIC METABOLIC PANEL (NA, K, Routine 01/17/2019 Results for CL, CO2, GLUCOSE, BUN, 1:32 AM CDT this CREATININE, CA) procedure are in the results section. TROPONIN I Routine 01/17/2019 Results for 1:32 AM CDT this procedure are in the results section. MAGNESIUM Routine 01/17/2019 Results for 1:32 AM CDT this procedure are in the results section. CREATINE KINASE Routine 01/17/2019 Results for 1:32 AM CDT this procedure are in the results section. POCT GLUCOSE (AUTOMATED) Routine 01/16/2019 Results for 8:44 PM CDT this procedure are in the results section. TROPONIN I Routine 01/16/2019 Results for 7:49 PM CDT this procedure are in the results section. POCT GLUCOSE (AUTOMATED) Routine 01/16/2019 Results for 5:47 PM CDT this procedure are in the results section. POCT GLUCOSE (AUTOMATED) Routine 01/16/2019 Results for 11:28 AM CDT this procedure are in the results section. POCT GLUCOSE (AUTOMATED) Routine 01/16/2019 Results for 8:14 AM CDT this procedure are in the results section. EKG-12 LEAD Routine 01/16/2019 7:11 AM CDT PROFILE / HEMOGRAM Routine 01/16/2019 Results for 3:51 AM CDT this procedure are in the results section. BASIC METABOLIC PANEL (NA, K, Routine 01/16/2019 Results for CL, CO2, GLUCOSE, BUN, 3:51 AM CDT this CREATININE, CA) procedure are in the results section. THYROID STIMULATING HORMONE Add-on 01/16/2019 Results for 3:51 AM CDT this procedure are in the results section. TROPONIN I STAT 01/16/2019 Results for 3:51 AM CDT this procedure are in the results section. EKG-12 LEAD Routine 01/16/2019 3:50 AM CDT POCT GLUCOSE (AUTOMATED) Routine 01/15/2019 Results for 9:00 PM CDT this procedure are in the results section. N-TERMINAL PRO-BNP Add-on 01/15/2019 Results for 7:34 PM CDT this procedure are in the results section. PROFILE / HEMOGRAM STAT 01/15/2019 Results for 7:34 PM CDT this procedure are in the results section. BASIC METABOLIC PANEL (NA, K, Add-on 01/15/2019 Results for CL, CO2, GLUCOSE, BUN, 7:34 PM CDT this CREATININE, CA) procedure are in the results section. TROPONIN I STAT 01/15/2019 Results for 7:34 PM CDT this procedure are in the results section. XR CHEST 1 VW STAT 01/15/2019 Thrombosis Results for 7:13 PM CDT this procedure are in the results section. EKG-12 LEAD Routine 01/15/2019 6:53 PM CDT POCT GLUCOSE (AUTOMATED) Routine 01/15/2019 Results for 5:34 PM CDT this procedure are in the results section. ECHO ROUTINE W/DOPPLER COLOR FABBY 01/15/2019 CAD, multiple 3:50 PM CDT vessel POCT GLUCOSE (AUTOMATED) Routine 01/15/2019 Results for 1:56 PM CDT this procedure are in the results section. POCT GLUCOSE (AUTOMATED) Routine 01/15/2019 Results for 11:55 AM CDT this procedure are in the results section. CBC WITH DIFFERENTIAL Routine 01/15/2019 Results for 9:38 AM CDT this procedure are in the results section. CBC WITH DIFF Routine 01/15/2019 Results for 9:38 AM CDT this procedure are in the results section. POCT GLUCOSE (AUTOMATED) Routine 01/15/2019 Results for 8:13 AM CDT this procedure are in the results section. EKG-12 LEAD Routine 01/15/2019 7:19 AM CDT BASIC METABOLIC PANEL (NA, K, Routine 01/15/2019 Results for CL, CO2, GLUCOSE, BUN, 5:37 AM CDT this CREATININE, CA) procedure are in the results section. TROPONIN I Add-on 01/15/2019 Results for 5:37 AM CDT this procedure are in the results section. POCT GLUCOSE (AUTOMATED) Routine 01/14/2019 Results for 9:04 PM CDT this procedure are in the results section. POCT GLUCOSE (AUTOMATED) Routine 01/14/2019 Results for 4:30 PM CDT this procedure are in the results section. POCT GLUCOSE (AUTOMATED) Routine 01/14/2019 Results for 12:00 PM CDT this procedure are in the results section. POCT GLUCOSE (AUTOMATED) Routine 01/14/2019 Results for 8:16 AM CDT this procedure are in the results section. PROFILE / HEMOGRAM FABBY 01/14/2019 Results for 4:38 AM CDT this procedure are in the results section. BASIC METABOLIC PANEL (NA, K, FABBY 01/14/2019 Results for CL, CO2, GLUCOSE, BUN, 4:38 AM CDT this CREATININE, CA) procedure are in the results section. POCT GLUCOSE (AUTOMATED) Routine 01/13/2019 Results for 9:14 PM CDT this procedure are in the results section. POCT GLUCOSE (AUTOMATED) Routine 01/13/2019 Results for 6:00 PM CDT this procedure are in the results section. POCT GLUCOSE (AUTOMATED) Routine 01/13/2019 Results for 1:37 PM CDT this procedure are in the results section. PROFILE / HEMOGRAM FABBY 01/13/2019 Results for 11:31 AM CDT this procedure are in the results section. TRANSFUSE PACKED RBC Routine 01/13/2019 10:37 AM CDT PREPARE PACKED RBC Routine 01/13/2019 Results for 7:41 AM CDT this procedure are in the results section. PROFILE / HEMOGRAM FABBY 01/13/2019 Results for 4:32 AM CDT this procedure are in the results section. BASIC METABOLIC PANEL (NA, K, FABBY 01/13/2019 Results for CL, CO2, GLUCOSE, BUN, 4:32 AM CDT this CREATININE, CA) procedure are in the results section. TROPONIN I FABBY 01/13/2019 Results for 4:32 AM CDT this procedure are in the results section. PROFILE / HEMOGRAM FABBY 01/12/2019 Results for 9:21 PM CDT this procedure are in the results section. TROPONIN I FABBY 01/12/2019 Results for 9:21 PM CDT this procedure are in the results section. POCT GLUCOSE (AUTOMATED) Routine 01/12/2019 Results for 9:03 PM CDT this procedure are in the results section. PROFILE / HEMOGRAM FABBY 01/12/2019 Results for 2:21 PM CDT this procedure are in the results section. TROPONIN I FABBY 01/12/2019 Results for 2:21 PM CDT this procedure are in the results section. ESOPHAGOGASTRODUODENOSCOPY Level 4 01/12/2019 Hematemesis with (within 0-5 2:00 PM CDT nausea days) POCT GLUCOSE (AUTOMATED) Routine 01/12/2019 Results for 11:55 AM CDT this procedure are in the results section. EKG-12 LEAD Routine 01/12/2019 11:34 AM CDT ECHO ROUTINE W/DOPPLER COLOR STAT 01/12/2019 Essential 10:07 AM CDT hypertension PROFILE / HEMOGRAM FABBY 01/12/2019 Results for 9:04 AM CDT this procedure are in the results section. TROPONIN I FABBY 01/12/2019 Results for 9:04 AM CDT this procedure are in the results section. POCT GLUCOSE (AUTOMATED) Routine 01/12/2019 Results for 7:51 AM CDT this procedure are in the results section. PROFILE / HEMOGRAM FABBY 01/12/2019 Results for 1:33 AM CDT this procedure are in the results section. BASIC METABOLIC PANEL (NA, K, FABBY 01/12/2019 Results for CL, CO2, GLUCOSE, BUN, 1:33 AM CDT this CREATININE, CA) procedure are in the results section. TROPONIN I STAT 01/12/2019 Results for 1:33 AM CDT this procedure are in the results section. TRANSFUSE PACKED RBC Routine 01/12/2019 1:03 AM CDT PREPARE PACKED RBC Routine 01/11/2019 Results for 8:31 PM CDT this procedure are in the results section. EKG-12 LEAD Routine 01/11/2019 8:11 PM CDT XR CHEST 1 VW STAT 01/11/2019 Hematemesis with Results for 8:09 PM CDT nausea this procedure are in the results section. BASIC METABOLIC PANEL (NA, K, FABBY 01/11/2019 Results for CL, CO2, GLUCOSE, BUN, 8:02 PM CDT this CREATININE, CA) procedure are in the results section. TROPONIN I [facility] 01/11/2019 Results for 8:02 PM CDT this procedure are in the results section. PROFILE / HEMOGRAM STAT 01/11/2019 Results for 7:42 PM CDT this procedure are in the results section. TRANSFUSE PACKED RBC Routine 01/11/2019 7:27 PM CDT EKG-12 LEAD Routine 01/11/2019 7:26 PM CDT HEPATITIS B SURFACE ANTIBODY FABBY 01/11/2019 Results for 5:05 PM CDT this procedure are in the results section. PROFILE / HEMOGRAM FABBY 01/11/2019 Results for 4:49 PM CDT this procedure are in the results section. ESOPHAGOGASTRODUODENOSCOPY 01/11/2019 Hematemesis with 2:15 PM CDT nausea EGD (ENDO) Routine 01/11/2019 1:45 PM CDT POCT GLUCOSE (AUTOMATED) Routine 01/11/2019 Results for 1:07 PM CDT this procedure are in the results section. HEPATITIS B SURFACE ANTIGEN Add-on 01/11/2019 Results for 9:59 AM CDT this procedure are in the results section. PROFILE / HEMOGRAM FABBY 01/11/2019 Results for 9:59 AM CDT this procedure are in the results section. BASIC METABOLIC PANEL (NA, K, FABBY 01/11/2019 Results for CL, CO2, GLUCOSE, BUN, 9:59 AM CDT this CREATININE, CA) procedure are in the results section. POCT GLUCOSE (AUTOMATED) Routine 01/11/2019 Results for 7:34 AM CDT this procedure are in the results section. AC PANEL 20 + LACTIC ACID STAT 01/11/2019 Results for 6:34 AM CDT this procedure are in the results section. EKG-12 LEAD Routine 01/11/2019 6:33 AM CDT PROFILE / HEMOGRAM STAT 01/11/2019 Results for 6:23 AM CDT this procedure are in the results section. BASIC METABOLIC PANEL (NA, K, STAT 01/11/2019 Results for CL, CO2, GLUCOSE, BUN, 6:23 AM CDT this CREATININE, CA) procedure are in the results section. TRANSFUSE PACKED RBC STAT 01/11/2019 5:54 AM CDT PROFILE / HEMOGRAM STAT 01/11/2019 Results for 5:10 AM CDT this procedure are in the results section. BASIC METABOLIC PANEL (NA, K, STAT 01/11/2019 Results for CL, CO2, GLUCOSE, BUN, 5:10 AM CDT this CREATININE, CA) procedure are in the results section. LACTIC ACID WHOLE BLOOD STAT 01/11/2019 Results for 5:09 AM CDT this procedure are in the results section. PREPARE PACKED RBC Routine 01/11/2019 Results for 3:57 AM CDT this procedure are in the results section. BASIC METABOLIC PANEL (NA, K, FABBY 01/11/2019 Results for CL, CO2, GLUCOSE, BUN, 2:26 AM CDT this CREATININE, CA) procedure are in the results section. PROFILE / HEMOGRAM FABBY 01/11/2019 Results for 2:25 AM CDT this procedure are in the results section. TRANSFUSE PACKED RBC Routine 01/11/2019 12:59 AM CDT DISCLOSURE AND CONSENT, MEDICAL Routine 01/11/2019 AND SURGICAL PROCEDURES 12:01 AM CDT PREPARE PACKED RBC STAT 01/10/2019 Results for 10:39 PM CDT this procedure are in the results section. BLOOD CULTURE SCREEN FABBY 01/10/2019 Results for 10:13 PM CDT this procedure are in the results section. BLOOD CULTURE SCREEN FABBY 01/10/2019 Results for 10:13 PM CDT this procedure are in the results section. LACTIC ACID WHOLE BLOOD STAT 01/10/2019 Results for 8:43 PM CDT this procedure are in the results section. POCT GLUCOSE (AUTOMATED) Routine 01/10/2019 Results for 8:42 PM CDT this procedure are in the results section. TYPE AND SCREEN STAT 01/10/2019 Results for 8:06 PM CDT this procedure are in the results section. MRSA / MSSA SCREEN BY PCR, FABBY 01/10/2019 Results for NARES 7:42 PM CDT this procedure are in the results section. CBC WITH DIFFERENTIAL STAT 01/10/2019 Results for 7:41 PM CDT this procedure are in the results section. GLYCOSYLATED HEMOGLOBIN (A1C) Add-on 01/10/2019 Results for 7:41 PM CDT this procedure are in the results section. CBC WITH DIFF STAT 01/10/2019 Results for 7:41 PM CDT this procedure are in the results section. FIBRINOGEN FABBY 01/10/2019 Results for 7:40 PM CDT this procedure are in the results section. PROTHROMBIN TIME / INR STAT 01/10/2019 Results for 7:40 PM CDT this procedure are in the results section. BASIC METABOLIC PANEL (NA, K, STAT 01/10/2019 Results for CL, CO2, GLUCOSE, BUN, 7:40 PM CDT this CREATININE, CA) procedure are in the results section. TROPONIN I FABBY 01/10/2019 Results for 7:40 PM CDT this procedure are in the results section. MAGNESIUM STAT 01/10/2019 Results for 7:40 PM CDT this procedure are in the results section. PHOSPHORUS STAT 01/10/2019 Results for 7:40 PM CDT this procedure are in the results section. EKG-12 LEAD Routine 01/10/2019 7:30 PM CDT XR CHEST 1 VW STAT 01/10/2019 Hematemesis with Results for 10:03 AM CDT nausea this procedure are in the results section. ABORH CONFIRMATION Routine 01/10/2019 Results for 9:20 AM CDT this procedure are in the results section. TYPE AND SCREEN STAT 01/10/2019 Hematemesis with Results for 9:00 AM CDT nausea this procedure are in the results section. CBC WITH DIFFERENTIAL STAT 01/10/2019 Hematemesis with Results for 8:30 AM CDT nausea this procedure are in the results section. PROTHROMBIN TIME / INR STAT 01/10/2019 Hematemesis with Results for 8:30 AM CDT nausea this procedure are in the results section. CBC WITH DIFF Routine 01/10/2019 Hematemesis with Results for 8:30 AM CDT nausea this procedure are in the results section. BASIC METABOLIC PANEL (NA, K, STAT 01/10/2019 Hematemesis with Results for CL, CO2, GLUCOSE, BUN, 8:30 AM CDT nausea this CREATININE, CA) procedure are in the results section. HEPATIC FUNCTION PANEL (48732) STAT 01/10/2019 Hematemesis with Results for (ALB,T.PRO,BILI 8:30 AM CDT nausea this T,BU/BC,ALT,AST,ALK PHOS) procedure are in the results section. TROPONIN I STAT 01/10/2019 Hematemesis with Results for 8:30 AM CDT nausea this procedure are in the results section. LIPASE STAT 01/10/2019 Hematemesis with Results for 8:30 AM CDT nausea this procedure are in the results section. EKG-12 LEAD Routine 01/10/2019 8:12 AM CDT NOTICE OF PRIVACY PRACTICES Routine 01/10/2019 8:02 AM CDT CONSENT/REFUSAL FOR DIAGNOSIS Routine 01/10/2019 AND TREATMENT 8:01 AM CDT AGREEMENTS AUTHORIZATIONS AND Routine 01/10/2019 IRREVOCABLE ASSIGNMENTS (FORM 12:01 AM CDT 2000) EMERGENCY DEPARTMENT DOCUMENTS Routine 01/10/2019 12:01 AM CDT PATIENT QUESTIONNAIRE Routine 01/10/2019 12:01 AM CDT documented in this encounter Results POCT GLUCOSE (AUTOMATED) (01/18/2019 8:51 AM CDT) POCT GLU 188 (H) 70 - 110 mg/dL [facility] Specimen Blood Performing Organization Address City/State/Zipcode Phone Number [facility] CLIA: [id number], [address] [place] [phone] [facility] PROTHROMBIN TIME / INR (01/18/2019 4:47 AM CDT) PROTIME PATIENT 13.2 (H) 10.1 - 12.[address] [facility] SERVICES INR 1.2Comment: Normal [facility] INR <1.1; Warfarin SERVICES Therapeutic range 2.0 to 3.0 or 2.5 to 3.5, depending upon the indications. Specimen Blood - ARM, LEFT Performing Organization Address City/State/Zipcode Phone Number [facility] CLIA: [id number], [address] [place] [address] [phone] [facility] CREATINE KINASE (01/18/2019 4:37 AM CDT) CK 1,469 (H) 33 - 194 U/L [facility] Specimen Blood - ARM, LEFT Performing Organization Address City/[facility] Phone Number [facility] CLIA: [id number], [address] [place] [phone] [facility] BASIC METABOLIC PANEL (NA, K, CL, CO2, GLUCOSE, BUN, CREATININE, CA) (2018 4:37 AM CDT) NA 132 (L) 135 - [address] [facility] mmol/L SERVICES K 5.5 (H) 3.5 - 5.[address] [facility] mmol/L SERVICES CL 94 (L) 98 - 108 mmol/L [facility] SERVICES CO2 TOTAL 29 23 - 31 mmol/L [facility] SERVICES AGAP 9 2 - [address] [facility] SERVICES BUN 35 (H) 7 - 23 mg/dL [facility] SERVICES GLUCOSE 262 (H) 70 - 110 mg/dL [facility] CREATININE 3.46 (H) 0.60 - 1.[address] [facility] mg/dL SERVICES CALCIUM 9.1 8.6 - 10.[address] [facility] mg/dL SERVICES eGFR Calculation 18.6 mL/min/1.73m2 [facility] (Non- SERVICES Vietnamese) eGFR Calculation 22.5 mL/min/1.73m2 [facility] () SERVICES Specimen Blood - ARM, LEFT Narrative Performed At Association of Glomerular Filtration Rate (GFR) and Staging [facility] SERVICES of Kidney Disease* + + + + | GFR (mL/min/1.73 m2)| With Kidney Damage|Without Kidney Damage + + + + |>90|Stage one| Normal + + + + |60-89|Stage two| Decreased GFR + + + + |30-59|Stage three| Stage three + + + + |15-29|Stage four | Stage four + + + + |<15 (or dialysis)|Stage five | Stage five + + + + *Each stage assumes the associated GFR level has been in effect for at least three months.Stages 1 to 5, with or without kidney disease, indicate chronic kidney disease. Notes: Determination of stages one and two (with eGFR >59mL/min/1.73 m2) requires estimation of kidney damage for at least three months as defined by structural or functional abnormalities of the kidney, manifested by either: Pathological abnormalities or Markers of kidney damage (including abnormalities in the composition of the blood or urine or abnormalities in imaging tests). Performing Organization Address City/State/Zipcode Phone Number [facility] CLIA: [id number], [address] [place] [address] [phone] [facility] CBC WITH DIFFERENTIAL (01/18/2019 4:36 AM CDT) WBC 4.85 4.20 - 10.[address] [facility] 10*3/L SERVICES RBC 2.87 (L) 4.26 - 5.[address] [facility] 10*6/L SERVICES HGB 8.7 (L) 12.2 - 16.[address] [facility] g/dL SERVICES HCT 27.9 (L) 38.4 - 49.3 % [facility] SERVICES MCV 97.2 (H) 81.7 - 95.[address] [facility] SERVICES MCH 30.3 26.1 - 32.[address] [facility] SERVICES MCHC 31.2 31.2 - 35.[address] [facility] g/dL SERVICES RDW-SD 64.1 (H) 38.5 - 51.[address] [facility] SERVICES RDW-CV 19.6 (H) 12.1 - 15.4 % [facility] SERVICES PLT 170 150 - [address] [facility] 10*3/L SERVICES MPV 10.0 9.8 - 13.0 fL [facility] NRBC/100 WBC 0.0 0.0 - 10.0 /100 [facility] WBCs SERVICES NRBC x10^3 <0.01 10*3/L [facility] GRAN MAT (NEUT) % 87.4 % [facility] IMM GRAN % 0.80 % [facility] LYMPH % 2.7 % [facility] MONO % 8.5 % [facility] EOS % 0.2 % [facility] BASO % 0.4 % [facility] GRAN MAT x10^3(ANC) 4.24 1.99 - 6.95 [facility] 10*3/uL SERVICES IMM GRAN x10^3 0.04 0.00 - 0.06 [facility] 10*3/uL SERVICES LYMPH x10^3 0.13 (L) 1.09 - 3.23 [facility] 10*3/uL SERVICES MONO x10^3 0.41 0.36 - 1.02 [facility] 10*3/uL SERVICES EOS x10^3 <0.03 (L) 0.06 - 0.53 [facility] 10*3/uL SERVICES BASO x10^3 <0.03 0.01 - 0.09 [facility] 10*3/uL SERVICES Specimen Blood - ARM, LEFT Performing Organization Address City/[facility]/Zipcode Phone Number [facility] CLIA: [id number], [address] [place] [address] [phone] [facility] POCT GLUCOSE (AUTOMATED) (01/17/2019 8:16 PM CDT) POCT GLU 181 (H) 70 - 110 mg/dL [facility] Specimen Blood Performing Organization Address City/[facility]/Zipcode Phone Number [facility] CLIA: [id number], [address] [place], [place] [address] [facility] POCT GLUCOSE (AUTOMATED) (01/17/2019 6:08 PM CDT) POCT GLU 247 (H) 70 - 110 mg/dL [facility] Specimen Blood Performing Organization Address City/[facility]ode Phone Number [facility] CLIA: [id number], [address] [place], [place] [address] [phone] [facility] POCT GLUCOSE (AUTOMATED) (01/17/2019 3:18 PM CDT) POCT GLU 146 (H) 70 - 110 mg/dL [facility] Specimen Blood Performing Organization Address [facility] Cent[facility]one Phone Number [facility] CLIA: [id number], [address] [place] [address] [phone] [facility] POCT GLUCOSE (AUTOMATED) (01/17/2019 8:13 AM CDT) POCT GLU 141 (H) 70 - 110 mg/dL [facility] Specimen Blood Performing Organization Address [facility] Phone Number [facility] CLIA: [id number], [address] [place] [phone] [facility] MAGNESIUM (01/17/2019 1:32 AM CDT) MAGNESIUM 1.7 1.7 - 2.4 mg/dL [facility] Specimen Blood - ARM, LEFT Performing Organization Address [facility] Phone Number [facility] CLIA: [id number], [address] [place] [address] [facility] CREATINE KINASE (01/17/2019 1:32 AM CDT) CK 1,304 (H) 33 - 194 U/L [facility] Specimen Blood - ARM, LEFT Performing Organization Address [facility] Phone Number [facility] CLIA: [id number], [address] [place] [phone] [facility] TROPONIN I (01/17/2019 1:32 AM CDT) TROPONIN I 1.390 (H) <=0.034 ng/mL [facility] Specimen Blood - ARM, LEFT Narrative Performed At Equal or Less than 0.034 ng/ml---Normal [facility] Note: Cardiac troponin begins to rise 3-4 hours after the onset of ischemia. Repeat in 4-6 hours if the sample was drawn within 3-4 hours of the onset of the symptom and found normal. Between 0.035 and 0.120 ng/mL--- Borderline. Questionable myocardial injury or necrosis Note: Serial measurement may be necessary to confirm or exclude the diagnosis of myocardial injury or necrosis; Clinical correlation (symptoms, EKGs, imaging studies, and others) required; Repeat in 4-6 hours if clinically indicated. Equal or Higher than 0.121 ng/mL---Abnormal. Myocardial Injury or Necrosis Likely Biotin has been reported to cause a negative bias, interpret results relative to patient's use of biotin. Performing Organization Address City/[facility] Phone Number [facility] CLIA: [id number], [address] [place] [address] [phone] [facility] PROFILE / HEMOGRAM (01/17/2019 1:32 AM CDT) WBC 6.07 4.20 - 10.70 [facility] 10*3/L SERVICES RBC 2.80 (L) 4.26 - 5.52 [facility] 10*6/L SERVICES HGB 8.6 (L) 12.2 - 16.4 g/dL [facility] HCT 27.1 (L) 38.4 - 49.3 % [facility] MCH 30.7 26.1 - 32.7 pg [facility] MCV 96.8 (H) 81.7 - 95.6 fL [facility] MCHC 31.7 31.2 - 35.0 g/dL [facility] PLT 169 150 - 328 10*3/L [facility] MPV 9.7 (L) 9.8 - 13.0 fL [facility] RDW-CV 19.9 (H) 12.1 - 15.4 % [facility] RDW-SD 62.0 (H) 38.5 - 51.6 fL [facility] NRBC x10^3 <0.01 10*3/L [facility] NRBC/100 WBC 0.0 0.0 - 10.0 /[address] [facility] WBCs SERVICES IPF % 1.2 - 10.7 % [facility] Specimen Blood - ARM, LEFT Performing Organization Address [facility] Phone Number [facility] CLIA: [id number], [address] [place] [phone] [facility] BASIC METABOLIC PANEL (NA, K, CL, CO2, GLUCOSE, BUN, CREATININE, CA) (2018 1:32 AM CDT) NA 135 135 - [address] [facility] mmol/L SERVICES K 4.9 3.5 - 5.[address] [facility] mmol/L SERVICES CL 100 98 - 108 mmol/L [facility] CO2 TOTAL 23 23 - 31 mmol/L [facility] AGAP 12 2 - [address] [facility] BUN 48 (H) 7 - 23 mg/dL [facility] GLUCOSE 150 (H) 70 - 110 mg/dL [facility] CREATININE 5.23 (H) 0.60 - 1.[address] [facility] mg/dL SERVICES CALCIUM 8.2 (L) 8.6 - 10.[address] [facility] mg/dL SERVICES eGFR Calculation 11.5 mL/min/1.73m2 [facility] (Non- SERVICES Vietnamese) eGFR Calculation 14.0 mL/min/1.73m2 [facility] () SERVICES Specimen Blood - ARM, LEFT Narrative Performed At Association of Glomerular Filtration Rate (GFR) and Staging [facility] of Kidney Disease* + + + + | GFR (mL/min/1.73 m2)| With Kidney Damage|Without Kidney Damage + + + + |>90|Stage one| Normal + + + + |60-89|Stage two| Decreased GFR + + + + |30-59|Stage three| Stage three + + + + |15-29|Stage four | Stage four + + + + |<15 (or dialysis)|Stage five | Stage five + + + + *Each stage assumes the associated GFR level has been in effect for at least three months.Stages 1 to 5, with or without kidney disease, indicate chronic kidney disease. Notes: Determination of stages one and two (with eGFR >59mL/min/1.73 m2) requires estimation of kidney damage for at least three months as defined by structural or functional abnormalities of the kidney, manifested by either: Pathological abnormalities or Markers of kidney damage (including abnormalities in the composition of the blood or urine or abnormalities in imaging tests). Performing Organization Address City/State/Zipcode Phone Number [facility] CLIA: [id number], [address] [place], [place] [address] [facility] POCT GLUCOSE (AUTOMATED) (01/16/2019 8:44 PM CDT) POCT GLU 236 (H) 70 - 110 mg/dL [facility] Specimen Blood Performing Organization Address [facility] Phone Number [facility] CLIA: [id number], [address] [place] [address] [phone] [facility] TROPONIN I (01/16/2019 7:49 PM CDT) TROPONIN I 1.420 (H) <=0.034 ng/mL [facility] Specimen Blood - ARM, LEFT Narrative Performed At Equal or Less than 0.034 ng/ml---Normal [facility] Note: Cardiac troponin begins to rise 3-4 hours after the onset of ischemia. Repeat in 4-6 hours if the sample was drawn within 3-4 hours of the onset of the symptom and found normal. Between 0.035 and 0.120 ng/mL--- Borderline. Questionable myocardial injury or necrosis Note: Serial measurement may be necessary to confirm or exclude the diagnosis of myocardial injury or necrosis; Clinical correlation (symptoms, EKGs, imaging studies, and others) required; Repeat in 4-6 hours if clinically indicated. Equal or Higher than 0.121 ng/mL---Abnormal. Myocardial Injury or Necrosis Likely Biotin has been reported to cause a negative bias, interpret results relative to patient's use of biotin. Performing Organization Address [facility] Phone Number [facility] CLIA: [id number], [address] [place] [address] [phone] [facility] POCT GLUCOSE (AUTOMATED) (01/16/2019 5:47 PM CDT) POCT GLU 200 (H) 70 - 110 mg/dL [facility] Specimen Blood Performing Organization Address [facility]/[place] Phone Number [facility] CLIA: [id number], [address] [place] [phone] [facility] POCT GLUCOSE (AUTOMATED) (01/16/2019 11:28 AM CDT) POCT GLU 159 (H) 70 - 110 mg/dL [facility] Specimen Blood Performing Organization Address City/[facility] Phone Number [facility] CLIA: [id number], [address] [place] [phone] [facility] POCT GLUCOSE (AUTOMATED) (01/16/2019 8:14 AM CDT) POCT GLU 187 (H) 70 - 110 mg/dL [facility] Specimen Blood Performing Organization Address [facility] Phone Number [facility] CLIA: [id number], [address] [place] [phone] [facility] THYROID STIMULATING HORMONE (01/16/2019 3:51 AM CDT) TSH 4.02Comment: Biotin 0.45 - 4.[address] [facility] has been reported mIU/L SERVICES to cause a negative bias, interpret results relative to patient's use of biotin. Specimen Blood - ARM, LEFT Performing Organization Address [facility] Phone Number [facility] CLIA: [id number], [address] [place] [phone] [facility] TROPONIN I (01/16/2019 3:51 AM CDT) TROPONIN I 1.740 (H) <=0.034 ng/mL [facility] Specimen Blood - ARM, LEFT Narrative Performed At Equal or Less than 0.034 ng/ml---Normal [facility] Note: Cardiac troponin begins to rise 3-4 hours after the onset of ischemia. Repeat in 4-6 hours if the sample was drawn within 3-4 hours of the onset of the symptom and found normal. Between 0.035 and 0.120 ng/mL--- Borderline. Questionable myocardial injury or necrosis Note: Serial measurement may be necessary to confirm or exclude the diagnosis of myocardial injury or necrosis; Clinical correlation (symptoms, EKGs, imaging studies, and others) required; Repeat in 4-6 hours if clinically indicated. Equal or Higher than 0.121 ng/mL---Abnormal. Myocardial Injury or Necrosis Likely Biotin has been reported to cause a negative bias, interpret results relative to patient's use of biotin. Performing Organization Address [facility] Phone Number [facility] CLIA: [id number], [address] [place] [phone] [facility] PROFILE / HEMOGRAM (01/16/2019 3:51 AM CDT) WBC 5.71 4.20 - 10.[address] [facility] 10*3/L SERVICES RBC 2.86 (L) 4.26 - 5.[address] [facility] 10*6/L SERVICES HGB 8.9 (L) 12.2 - 16.4 g/dL [facility] HCT 27.5 (L) 38.4 - 49.3 % [facility] MCH 31.1 26.1 - 32.[address] [facility] MCV 96.2 (H) 81.7 - 95.[address] [facility] MCHC 32.4 31.2 - 35.0 g/dL [facility] PLT 159 150 - 328 10*3/L [facility] MPV 10.3 9.8 - 13.[address] [facility] RDW-CV 20.2 (H) 12.1 - 15.4 % [facility] RDW-SD 59.5 (H) 38.5 - 51.[address] [facility] NRBC x10^3 <0.01 10*3/L [facility] NRBC/100 WBC 0.0 0.0 - 10.0 /[address] [facility] WBCs SERVICES IPF % 1.2 - 10.7 % [facility] Specimen Blood - ARM, LEFT Performing Organization Address City/State/Zipcode Phone Number [facility] CLIA: [id number], [address] [place] [phone] [facility] BASIC METABOLIC PANEL (NA, K, CL, CO2, GLUCOSE, BUN, CREATININE, CA) (2018 3:51 AM CDT) NA 135 135 - [address] [facility] mmol/L SERVICES K 4.3 3.5 - 5.[address] [facility] mmol/L SERVICES CL 100 98 - 108 mmol/L [facility] CO2 TOTAL 25 23 - 31 mmol/L [facility] AGAP 10 2 - [address] [facility] BUN 35 (H) 7 - 23 mg/dL [facility] GLUCOSE 163 (H) 70 - 110 mg/dL [facility] CREATININE 4.33 (H) 0.60 - 1.[address] [facility] mg/dL SERVICES CALCIUM 8.4 (L) 8.6 - 10.[address] [facility] mg/dL SERVICES eGFR Calculation 14.4 mL/min/1.73m2 [facility] (Non- SERVICES Vietnamese) eGFR Calculation 17.4 mL/min/1.73m2 [facility] () SERVICES Specimen Blood - ARM, LEFT Narrative Performed At Association of Glomerular Filtration Rate (GFR) and Staging [facility] of Kidney Disease* + + + + | GFR (mL/min/1.73 m2)| With Kidney Damage|Without Kidney Damage + + + + |>90|Stage one| Normal + + + + |60-89|Stage two| Decreased GFR + + + + |30-59|Stage three| Stage three + + + + |15-29|Stage four | Stage four + + + + |<15 (or dialysis)|Stage five | Stage five + + + + *Each stage assumes the associated GFR level has been in effect for at least three months.Stages 1 to 5, with or without kidney disease, indicate chronic kidney disease. Notes: Determination of stages one and two (with eGFR >59mL/min/1.73 m2) requires estimation of kidney damage for at least three months as defined by structural or functional abnormalities of the kidney, manifested by either: Pathological abnormalities or Markers of kidney damage (including abnormalities in the composition of the blood or urine or abnormalities in imaging tests). Performing Organization Address City/[facility]/Zipcode Phone Number [facility] CLIA: [id number], [address] [place] [address] [phone] [facility] POCT GLUCOSE (AUTOMATED) (01/15/2019 9:00 PM CDT) POCT GLU 231 (H) 70 - 110 mg/dL [facility] Specimen Blood Performing Organization Address City/[facility]/Zipcode Phone Number [facility] CLIA: [id number], [address] [place] [address] [phone] [facility] N-TERMINAL PRO-BNP (01/15/2019 7:34 PM CDT) NT-proBNP 110,000 (H) <=125 pg/mL [facility] Specimen Blood - ARM, LEFT Narrative Performed At [facility] has been reported to cause a negative bias, interpret [facility] results relative to patient's use of biotin. Performing Organization Address City/State/Zipcode Phone Number [facility] CLIA: [id number], [address] [place] [address] [facility] BASIC METABOLIC PANEL (NA, K, CL, CO2, GLUCOSE, BUN, CREATININE, CA) (2018 7:34 PM CDT) NA 137 135 - [address] [facility] mmol/L SERVICES K 3.7 3.5 - 5.[address] [facility] mmol/L SERVICES CL 105 98 - 108 mmol/L [facility] CO2 TOTAL 24 23 - 31 mmol/L [facility] AGAP 8 2 - [address] [facility] BUN 26 (H) 7 - 23 mg/dL [facility] GLUCOSE 191 (H) 70 - 110 mg/dL [facility] CREATININE 3.07 (H) 0.60 - 1.[address] [facility] mg/dL SERVICES CALCIUM 7.5 (L) 8.6 - 10.[address] [facility] mg/dL SERVICES eGFR Calculation 21.3 mL/min/1.73m2 [facility] (Non- SERVICES Vietnamese) eGFR Calculation 25.9 mL/min/1.73m2 [facility] () SERVICES Specimen Blood - ARM, LEFT Narrative Performed At [employer] of Glomerular Filtration Rate (GFR) and Staging [facility] of Kidney Disease* + + + + | GFR (mL/min/1.73 m2)| With Kidney Damage|Without Kidney Damage + + + + |>90|Stage one| Normal + + + + |60-89|Stage two| Decreased GFR + + + + |30-59|Stage three| Stage three + + + + |15-29|Stage four | Stage four + + + + |<15 (or dialysis)|Stage five | Stage five + + + + *Each stage assumes the associated GFR level has been in effect for at least three months.Stages 1 to 5, with or without kidney disease, indicate chronic kidney disease. Notes: Determination of stages one and two (with eGFR >59mL/min/1.73 m2) requires estimation of kidney damage for at least three months as defined by structural or functional abnormalities of the kidney, manifested by either: Pathological abnormalities or Markers of kidney damage (including abnormalities in the composition of the blood or urine or abnormalities in imaging tests). Performing Organization Address [facility] Phone Number [facility] CLIA: [id number], [address] [place] [phone] [facility] PROFILE / HEMOGRAM (01/15/2019 7:34 PM CDT) WBC 4.07 (L) 4.20 - 10.[address] [facility] 10*3/L SERVICES RBC 2.64 (L) 4.26 - 5.[address] [facility] 10*6/L SERVICES HGB 8.1 (L) 12.2 - 16.4 g/dL [facility] HCT 25.5 (L) 38.4 - 49.3 % [facility] MCH 30.7 26.1 - 32.7 pg [facility] MCV 96.6 (H) 81.7 - 95.6 fL [facility] MCHC 31.8 31.2 - 35.0 g/dL [facility] PLT 127 (L) 150 - 328 10*3/L [facility] MPV 9.8 9.8 - 13.[address] [facility] RDW-CV 20.0 (H) 12.1 - 15.4 % [facility] RDW-SD 58.6 (H) 38.5 - 51.6 fL [facility] NRBC x10^3 <0.01 10*3/L [facility] NRBC/100 WBC 0.0 0.0 - 10.0 /[address] [facility] WBCs SERVICES IPF % 1.2 - 10.7 % [facility] Specimen Blood - ARM, LEFT Performing Organization Address City/State/Zipcode Phone Number [facility] CLIA: [id number], [address] [place] [address] [phone] [facility] TROPONIN I (01/15/2019 7:34 PM CDT) TROPONIN I 1.330 (H) <=0.034 ng/mL [facility] Specimen Blood - ARM, LEFT Narrative Performed At Equal or Less than 0.034 ng/ml---Normal [facility] Note: Cardiac troponin begins to rise 3-4 hours after the onset of ischemia. Repeat in 4-6 hours if the sample was drawn within 3-4 hours of the onset of the symptom and found normal. Between 0.035 and 0.120 ng/mL--- Borderline. Questionable myocardial injury or necrosis Note: Serial measurement may be necessary to confirm or exclude the diagnosis of myocardial injury or necrosis; Clinical correlation (symptoms, EKGs, imaging studies, and others) required; Repeat in 4-6 hours if clinically indicated. Equal or Higher than 0.121 ng/mL---Abnormal. Myocardial Injury or Necrosis Likely Biotin has been reported to cause a negative bias, interpret results relative to patient's use of biotin. Performing Organization Address [facility]/Zipcode Phone Number [facility] CLIA: [id number], [address] [place] [phone] XR CHEST 1 VW (01/15/2019 7:13 PM CDT) Specimen Narrative Performed At HISTORY: Dyspnea. PACS/VR/DOSE FINDINGS:AP view of the chest is obtained and compared with 01/11/2019 study. Cardiomegaly noted with mild bilateral pulmonary edema. Coronary stent suspected in the LAD coronary artery. No pneumothorax or significant pleural effusion. No focal consolidation. CONCLUSIONS: Mild CHF. Procedure Note [facility], Radiant Results Inft User - 01/15/2019 9:29 PM CDT HISTORY: Dyspnea. FINDINGS: AP view of the chest is obtained and compared with 01/11/2019 study. Cardiomegaly noted with mild bilateral pulmonary edema. Coronary stent suspected in the LAD coronary artery. No pneumothorax or significant pleural effusion. No focal consolidation. CONCLUSIONS: Mild CHF. Performing Organization Address [facility] Phone Number PACS/VR/DOSE POCT GLUCOSE (AUTOMATED) (01/15/2019 5:34 PM CDT) POCT GLU 210 (H) 70 - 110 mg/dL [facility] Specimen Blood Performing Organization Address [facility]/Zipcode Phone Number [facility] CLIA: [id number], [address] [place] [phone] [facility] POCT GLUCOSE (AUTOMATED) (01/15/2019 1:56 PM CDT) POCT GLU 163 (H) 70 - 110 mg/dL [facility] Specimen Blood Performing Organization Address City/[facility]/Zipcode Phone Number [facility] CLIA: [id number], [address] [place], [place] [address] [facility] POCT GLUCOSE (AUTOMATED) (01/15/2019 11:55 AM CDT) POCT GLU 191 (H) 70 - 110 mg/dL [facility] Specimen Blood Performing Organization Address City/[facility]/Zipcode Phone Number [facility] CLIA: [id number], [address] [place], [place] [phone] [facility] CBC WITH DIFFERENTIAL (01/15/2019 9:38 AM CDT) WBC 4.68 4.20 - 10.70 [facility] 10*3/L SERVICES RBC 2.89 (L) 4.26 - 5.52 [facility] 10*6/L SERVICES HGB 9.0 (L) 12.2 - 16.4 [facility] g/dL SERVICES HCT 27.3 (L) 38.4 - 49.3 % [facility] MCV 94.5 81.7 - 95.6 fL [facility] MCH 31.1 26.1 - 32.7 pg [facility] MCHC 33.0 31.2 - 35.0 [facility] g/dL SERVICES RDW-SD 57.7 (H) 38.5 - 51.6 fL [facility] RDW-CV 19.9 (H) 12.1 - 15.4 % [facility] PLT 139 (L) 150 - 328 [facility] 10*3/L SERVICES MPV 9.4 (L) 9.8 - 13.0 fL [facility] NRBC/100 WBC 0.0 0.0 - 10.0 /100 [facility] WBCs SERVICES NRBC x10^3 <0.01 10*3/L [facility] GRAN MAT (NEUT) % 70.3 % [facility] IMM GRAN % 0.60 % [facility] LYMPH % 7.7 % [facility] MONO % 11.1 % [facility] EOS % 9.4 % [facility] BASO % 0.9 % [facility] GRAN MAT x10^3(ANC) 3.29 1.99 - 6.[address] [facility] 10*3/uL SERVICES IMM GRAN x10^3 0.03 0.00 - 0.[address] [facility] 10*3/uL SERVICES LYMPH x10^3 0.36 (L) 1.09 - 3.[address] [facility] 10*3/uL SERVICES MONO x10^3 0.52 0.36 - 1.[address] [facility] 10*3/uL SERVICES EOS x10^3 0.44 0.06 - 0.[address] [facility] 10*3/uL SERVICES BASO x10^3 0.04 0.01 - 0.[address] [facility] 10*3/uL SERVICES Specimen Blood - LINE, VENOUS Performing Organization Address City/State/Zipcode Phone Number [facility] CLIA: [id number], [address] [place] [address] POCT GLUCOSE (AUTOMATED) (01/15/2019 8:13 AM CDT) Pathologist [facility] POCT GLU 151 (H) 70 - 110 mg/dL [facility] Specimen Blood Performing Organization Address City/State/Zipcode Phone Number [facility] CLIA: [id number], [address] [place] [address] [address] TROPONIN I (01/15/2019 5:37 AM CDT) Pathologist [facility] TROPONIN I 1.820 (H) <=0.034 ng/mL [facility] Specimen Blood - ARM, LEFT Narrative Performed At Equal or Less than 0.034 ng/ml---Normal [facility] Note: Cardiac troponin begins to rise 3-4 hours after the onset of ischemia. Repeat in 4-6 hours if the sample was drawn within 3-4 hours of the onset of the symptom and found normal. Between 0.035 and 0.120 ng/mL--- Borderline. Questionable myocardial injury or necrosis Note: Serial measurement may be necessary to confirm or exclude the diagnosis of myocardial injury or necrosis; Clinical correlation (symptoms, EKGs, imaging studies, and others) required; Repeat in 4-6 hours if clinically indicated. Equal or Higher than 0.121 ng/mL---Abnormal. Myocardial Injury or Necrosis Likely Biotin has been reported to cause a negative bias, interpret results relative to patient's use of biotin. Performing Organization Address City/State/Zipcode Phone Number [facility] CLIA: [id number], [address] [place] [address] [phone] [facility] BASIC METABOLIC PANEL (NA, K, CL, CO2, GLUCOSE, BUN, CREATININE, CA) (2018 5:37 AM CDT) NA 133 (L) 135 - [address] [facility] mmol/L SERVICES K 3.8 3.5 - 5.[address] [facility] mmol/L SERVICES CL 97 (L) 98 - 108 mmol/L [facility] SERVICES CO2 TOTAL 24 23 - 31 mmol/L [facility] [facility] AGAP 12 2 - [address] [facility] BUN 63 (H) 7 - 23 mg/dL [facility] GLUCOSE 159 (H) 70 - 110 mg/dL [facility] CREATININE 5.99 (H) 0.60 - 1.[address] [facility] mg/dL SERVICES CALCIUM 8.3 (L) 8.6 - 10.[address] [facility] mg/dL SERVICES eGFR Calculation 9.9 mL/min/1.73m2 [facility] (Non- SERVICES Vietnamese) eGFR Calculation 12.0 mL/min/1.73m2 [facility] () SERVICES Specimen Blood - ARM, LEFT Narrative Performed At Association of Glomerular Filtration Rate (GFR) and Staging [facility] of Kidney Disease* + + + + | GFR (mL/min/1.73 m2)| With Kidney Damage|Without Kidney Damage + + + + |>90|Stage one| Normal + + + + |60-89|Stage two| Decreased GFR + + + + |30-59|Stage three| Stage three + + + + |15-29|Stage four | Stage four + + + + |<15 (or dialysis)|Stage five | Stage five + + + + *Each stage assumes the associated GFR level has been in effect for at least three months.Stages 1 to 5, with or without kidney disease, indicate chronic kidney disease. Notes: Determination of stages one and two (with eGFR >59mL/min/1.73 m2) requires estimation of kidney damage for at least three months as defined by structural or functional abnormalities of the kidney, manifested by either: Pathological abnormalities or Markers of kidney damage (including abnormalities in the composition of the blood or urine or abnormalities in imaging tests). Performing Organization Address City/[facility] Phone Number [facility] CLIA: [id number], [address] [place] [address] [phone] [facility] POCT GLUCOSE (AUTOMATED) (01/14/2019 9:04 PM CDT) POCT GLU 201 (H) 70 - 110 mg/dL [facility] Specimen Blood Performing Organization Address City/[facility]one Phone Number [facility] CLIA: [id number], [address] [place] [address] [phone] [facility] POCT GLUCOSE (AUTOMATED) (01/14/2019 4:30 PM CDT) POCT GLU 152 (H) 70 - 110 mg/dL [facility] Specimen Blood Performing Organization Address [facility] Phone Number [facility] CLIA: [id number], [address] [place] [address] [phone] [facility] POCT GLUCOSE (AUTOMATED) (01/14/2019 12:00 PM CDT) POCT GLU 193 (H) 70 - 110 mg/dL [facility] Specimen Blood Performing Organization Address [facility] Phone Number [facility] CLIA: [id number], [address] [place] [address] [phone] [facility] POCT GLUCOSE (AUTOMATED) (01/14/2019 8:16 AM CDT) POCT GLU 195 (H) 70 - 110 mg/dL [facility] Specimen Blood Performing Organization Address [facility] Phone Number [facility] CLIA: [id number], [address] [place] [address] [phone] [facility] BASIC METABOLIC PANEL (NA, K, CL, CO2, GLUCOSE, BUN, CREATININE, CA) (2018 4:38 AM CDT) NA 135 135 - [address] [facility] mmol/L SERVICES K 3.7 3.5 - 5.[address] [facility] mmol/L SERVICES CL 98 98 - 108 mmol/L [facility] CO2 TOTAL 28 23 - 31 mmol/L [facility] AGAP 9 2 - [address] [facility] BUN 55 (H) 7 - 23 mg/dL [facility] GLUCOSE 167 (H) 70 - 110 mg/dL [facility] CREATININE 4.85 (H) 0.60 - 1.[address] [facility] mg/dL SERVICES CALCIUM 8.6 8.6 - 10.[address] [facility] mg/dL SERVICES eGFR Calculation 12.6 mL/min/1.73m2 [facility] (Non- SERVICES Vietnamese) eGFR Calculation 15.3 mL/min/1.73m2 [facility] () SERVICES Specimen Blood - VENOUS Narrative Performed At Association of Glomerular Filtration Rate (GFR) and Staging [facility] of Kidney Disease* + + + + | GFR (mL/min/1.73 m2)| With Kidney Damage|Without Kidney Damage + + + + |>90|Stage one| Normal + + + + |60-89|Stage two| Decreased GFR + + + + |30-59|Stage three| Stage three + + + + |15-29|Stage four | Stage four + + + + |<15 (or dialysis)|Stage five | Stage five + + + + *Each stage assumes the associated GFR level has been in effect for at least three months.Stages 1 to 5, with or without kidney disease, indicate chronic kidney disease. Notes: Determination of stages one and two (with eGFR >59mL/min/1.73 m2) requires estimation of kidney damage for at least three months as defined by structural or functional abnormalities of the kidney, manifested by either: Pathological abnormalities or Markers of kidney damage (including abnormalities in the composition of the blood or urine or abnormalities in imaging tests). Performing Organization Address City/State/Zipcode Phone Number [facility] CLIA: [id number], [address] [place] [address] [phone] [facility] PROFILE / HEMOGRAM (01/14/2019 4:38 AM CDT) WBC 5.47 4.20 - 10.[address] [facility] 10*3/L SERVICES RBC 3.00 (L) 4.26 - 5.[address] [facility] 10*6/L SERVICES HGB 9.0 (L) 12.2 - 16.4 g/dL [facility] HCT 28.3 (L) 38.4 - 49.3 % [facility] MCH 30.0 26.1 - 32.[address] [facility] MCV 94.3 81.7 - 95.[address] [facility] MCHC 31.8 31.2 - 35.0 g/dL [facility] PLT 132 (L) 150 - 328 10*3/L [facility] MPV 10.0 9.8 - 13.[address] [facility] RDW-CV 19.3 (H) 12.1 - 15.4 % [facility] RDW-SD 60.2 (H) 38.5 - 51.[address] [facility] NRBC x10^3 <0.01 10*3/L [facility] NRBC/100 WBC 0.0 0.0 - 10.0 /[address] [facility] WBCs SERVICES IPF % 1.2 - 10.7 % [facility] Specimen Blood - VENOUS Performing Organization Address City/[facility] Phone Number [facility] CLIA: [id number], [address] [place] [address] [facility] POCT GLUCOSE (AUTOMATED) (01/13/2019 9:14 PM CDT) POCT GLU 158 (H) 70 - 110 mg/dL [facility] Specimen Blood Performing Organization Address [facility] Phone Number [facility] CLIA: [id number], [address] [place] [address] [phone] [facility] POCT GLUCOSE (AUTOMATED) (01/13/2019 6:00 PM CDT) POCT GLU 179 (H) 70 - 110 mg/dL [facility] Specimen Blood Performing Organization Address [facility] Phone Number [facility] CLIA: [id number], [address] [place] [address] [facility] POCT GLUCOSE (AUTOMATED) (01/13/2019 1:37 PM CDT) POCT GLU 101 70 - 110 mg/dL [facility] Specimen Blood Performing Organization Address City/State/Zipcode Phone Number [facility] CLIA: [id number], [address] [place] [address] [phone] [facility] PROFILE / HEMOGRAM (01/13/2019 11:31 AM CDT) Pathologist [facility] WBC 6.12 4.20 - 10.[address] [facility] 10*3/L SERVICES RBC 2.97 (L) 4.26 - 5.[address] [facility] 10*6/L SERVICES HGB 9.2 (L) 12.2 - 16.4 g/dL [facility] HCT 27.2 (L) 38.4 - 49.3 % [facility] MCH 31.0 26.1 - 32.[address] [facility] MCV 91.6 81.7 - 95.[address] [facility] MCHC 33.8 31.2 - 35.0 g/dL [facility] SERVICES PLT 135 (L) 150 - 328 10*3/L [facility] SERVICES MPV 9.7 (L) 9.8 - 13.[address] [facility] SERVICES RDW-CV 18.9 (H) 12.1 - 15.4 % [facility] RDW-SD 56.6 (H) 38.5 - 51.[address] [facility] SERVICES NRBC x10^3 <0.01 10*3/L [facility] NRBC/100 WBC 0.0 0.0 - 10.0 /[address] [facility] WBCs SERVICES IPF % 1.2 - 10.7 % [facility] Specimen Blood - ARM, LEFT Performing Organization Address City/State/Zipcode Phone Number [facility] CLIA: [id number], [address] [place] [address] [phone] [facility] Prepare Packed RBC (in units), 1 Units (01/13/2019 7:41 AM CDT) [facility] Cross Match Result Compatible LAB ISBT Blood Type Code 0600 LAB Unit Blood Type A Neg LAB Unit Number [id number] LAB Blood Expiration Date & LAB Time Status Information Issued LAB Product Identification Red Blood Cells LAB Product Code [id number] LAB Comment: Performed at [facility] Services - [facility] Blood [address] [address] Toll Free: [phone] CLIA No. [id number] Specimen Performing Organization Address City/State/Zipcode Phone Number [facility] LAB PROFILE / HEMOGRAM (01/13/2019 4:32 AM CDT) WBC 6.43 4.20 - 10.[address] [facility] 10*3/L SERVICES RBC 2.55 (L) 4.26 - 5.[address] [facility] 10*6/L SERVICES HGB 7.8 (L) 12.2 - 16.4 g/dL [facility] HCT 23.6 (L) 38.4 - 49.3 % [facility] MCH 30.6 26.1 - 32.7 pg [facility] MCV 92.5 81.7 - 95.[address] [facility] MCHC 33.1 31.2 - 35.0 g/dL [facility] SERVICES PLT 145 (L) 150 - 328 10*3/L [facility] MPV 9.7 (L) 9.8 - 13.[address] [facility] RDW-CV 20.1 (H) 12.1 - 15.4 % [facility] RDW-SD 62.0 (H) 38.5 - 51.6 fL [facility] NRBC x10^3 <0.01 10*3/L [facility] NRBC/100 WBC 0.0 0.0 - 10.0 /[address] [facility] WBCs SERVICES IPF % 1.2 - 10.7 % [facility] Specimen Blood - VENOUS Performing Organization Address City/State/Zipcode Phone Number [facility] CLIA: [id number], [address] [place] [phone] [facility] TROPONIN I (01/13/2019 4:32 AM CDT) TROPONIN I 2.650 (H) <=0.034 ng/mL [facility] Specimen Blood - VENOUS Narrative Performed At Equal or Less than 0.034 ng/ml---Normal [facility] Note: Cardiac troponin begins to rise 3-4 hours after the onset of ischemia. Repeat in 4-6 hours if the sample was drawn within 3-4 hours of the onset of the symptom and found normal. Between 0.035 and 0.120 ng/mL--- Borderline. Questionable myocardial injury or necrosis Note: Serial measurement may be necessary to confirm or exclude the diagnosis of myocardial injury or necrosis; Clinical correlation (symptoms, EKGs, imaging studies, and others) required; Repeat in 4-6 hours if clinically indicated. Equal or Higher than 0.121 ng/mL---Abnormal. Myocardial Injury or Necrosis Likely Biotin has been reported to cause a negative bias, interpret results relative to patient's use of biotin. Performing Organization Address City/State/Zipcode Phone Number [facility] CLIA: [id number], [address] [place] [address] [phone] [facility] BASIC METABOLIC PANEL (NA, K, CL, CO2, GLUCOSE, BUN, CREATININE, CA) (2018 4:32 AM CDT) NA 138 135 - [address] [facility] mmol/L SERVICES K 3.9 3.5 - 5.[address] [facility] mmol/L SERVICES CL 105 98 - 108 mmol/L [facility] SERVICES CO2 TOTAL 21 (L) 23 - 31 mmol/L [facility] SERVICES AGAP 12 2 - [address] [facility] BUN 89 (H) 7 - 23 mg/dL [facility] SERVICES GLUCOSE 112 (H) 70 - 110 mg/dL [facility] CREATININE 5.45 (H) 0.60 - 1.[address] [facility] mg/dL SERVICES CALCIUM 8.1 (L) 8.6 - 10.[address] [facility] mg/dL SERVICES eGFR Calculation 11.0 mL/min/1.73m2 [facility] (Non- SERVICES Vietnamese) eGFR Calculation 13.3 mL/min/1.73m2 [facility] () SERVICES Specimen Blood - VENOUS Narrative Performed At Association of Glomerular Filtration Rate (GFR) and Staging [facility] SERVICES of Kidney Disease* + + + + | GFR (mL/min/1.73 m2)| With Kidney Damage|Without Kidney Damage + + + + |>90|Stage one| Normal + + + + |60-89|Stage two| Decreased GFR + + + + |30-59|Stage three| Stage three + + + + |15-29|Stage four | Stage four + + + + |<15 (or dialysis)|Stage five | Stage five + + + + *Each stage assumes the associated GFR level has been in effect for at least three months.Stages 1 to 5, with or without kidney disease, indicate chronic kidney disease. Notes: Determination of stages one and two (with eGFR >59mL/min/1.73 m2) requires estimation of kidney damage for at least three months as defined by structural or functional abnormalities of the kidney, manifested by either: Pathological abnormalities or Markers of kidney damage (including abnormalities in the composition of the blood or urine or abnormalities in imaging tests). Performing Organization Address City/[facility]/Zipcode Phone Number [facility] CLIA: [id number], [address] [place] [phone] [facility] PROFILE / HEMOGRAM (01/12/2019 9:21 PM CDT) WBC 6.73 4.20 - 10.[address] [facility] 10*3/L SERVICES RBC 2.79 (L) 4.26 - 5.52 [facility] 10*6/L SERVICES HGB 8.5 (L) 12.2 - 16.4 g/dL [facility] SERVICES HCT 25.6 (L) 38.4 - 49.3 % [facility] MCH 30.5 26.1 - 32.7 pg [facility] MCV 91.8 81.7 - 95.6 fL [facility] MCHC 33.2 31.2 - 35.0 g/dL [facility] PLT 151 150 - 328 10*3/L [facility] MPV 9.1 (L) 9.8 - 13.[address] [facility] RDW-CV 19.9 (H) 12.1 - 15.4 % [facility] RDW-SD 61.9 (H) 38.5 - 51.6 fL [facility] NRBC x10^3 0.02 10*3/L [facility] NRBC/100 WBC 0.3 0.0 - 10.0 /[address] [facility] WBCs SERVICES IPF % 1.2 - 10.7 % [facility] Specimen Blood - VENOUS Performing Organization Address City/[facility]/Zipcode Phone Number [facility] CLIA: [id number], [address] [place] [address] [phone] [facility] TROPONIN I (01/12/2019 9:21 PM CDT) TROPONIN I 2.990 (H) <=0.034 ng/mL [facility] Specimen Blood - VENOUS Narrative Performed At Equal or Less than 0.034 ng/ml---Normal [facility] Note: Cardiac troponin begins to rise 3-4 hours after the onset of ischemia. Repeat in 4-6 hours if the sample was drawn within 3-4 hours of the onset of the symptom and found normal. Between 0.035 and 0.120 ng/mL--- Borderline. Questionable myocardial injury or necrosis Note: Serial measurement may be necessary to confirm or exclude the diagnosis of myocardial injury or necrosis; Clinical correlation (symptoms, EKGs, imaging studies, and others) required; Repeat in 4-6 hours if clinically indicated. Equal or Higher than 0.121 ng/mL---Abnormal. Myocardial Injury or Necrosis Likely Biotin has been reported to cause a negative bias, interpret results relative to patient's use of biotin. Performing Organization Address City/[facility]/Zipcode Phone Number [facility] CLIA: [id number], [address] [place] [address] [facility] POCT GLUCOSE (AUTOMATED) (01/12/2019 9:03 PM CDT) [facility] POCT GLU 116 (H) 70 - 110 mg/dL [facility] Specimen Blood Performing Organization Address City/[facility]/Zipcode Phone Number [facility] CLIA: [id number], [address] [place] [address] [phone] [facility] PROFILE / HEMOGRAM (01/12/2019 2:21 PM CDT) [facility] WBC 6.87 4.20 - 10.[address] [facility] 10*3/L SERVICES RBC 2.83 (L) 4.26 - 5.[address] [facility] 10*6/L SERVICES HGB 8.5 (L) 12.2 - 16.4 g/dL [facility] SERVICES HCT 25.4 (L) 38.4 - 49.3 % [facility] SERVICES MCH 30.0 26.1 - 32.[address] [facility] SERVICES MCV 89.8 81.7 - 95.[address] [facility] SERVICES MCHC 33.5 31.2 - 35.0 g/dL [facility] SERVICES PLT 162 150 - 328 10*3/L [facility] SERVICES MPV 9.6 (L) 9.8 - 13.[address] [facility] SERVICES RDW-CV 19.8 (H) 12.1 - 15.4 % [facility] RDW-SD 59.3 (H) 38.5 - 51.[address] [facility] SERVICES NRBC x10^3 <0.01 10*3/L [facility] NRBC/100 WBC 0.0 0.0 - 10.0 /[address] [facility] WBCs SERVICES IPF % 1.2 - 10.7 % [facility] SERVICES Specimen Blood - ARTERIAL Performing Organization Address City/[facility] Phone Number [facility] CLIA: [id number], [address] [place] [address] [phone] [facility] TROPONIN I (01/12/2019 2:21 PM CDT) TROPONIN I 2.290 (H) <=0.034 ng/mL [facility] Specimen Blood - ARTERIAL Narrative Performed At Equal or Less than 0.034 ng/ml---Normal [facility] Note: Cardiac troponin begins to rise 3-4 hours after the onset of ischemia. Repeat in 4-6 hours if the sample was drawn within 3-4 hours of the onset of the symptom and found normal. Between 0.035 and 0.120 ng/mL--- Borderline. Questionable myocardial injury or necrosis Note: Serial measurement may be necessary to confirm or exclude the diagnosis of myocardial injury or necrosis; Clinical correlation (symptoms, EKGs, imaging studies, and others) required; Repeat in 4-6 hours if clinically indicated. Equal or Higher than 0.121 ng/mL---Abnormal. Myocardial Injury or Necrosis Likely Biotin has been reported to cause a negative bias, interpret results relative to patient's use of biotin. Performing Organization Address City/State/Zipcode Phone Number [facility] CLIA: [id number], [address] [place] [address] [phone] [facility] POCT GLUCOSE (AUTOMATED) (01/12/2019 11:55 AM CDT) POCT GLU 148 (H) 70 - 110 mg/dL [facility] Specimen Blood Performing Organization Address City/[facility]/Zipcode Phone Number [facility] CLIA: [id number], [address] [place] [address] [phone] [facility] PROFILE / HEMOGRAM (01/12/2019 9:04 AM CDT) WBC 7.21 4.20 - 10.70 [facility] 10*3/L SERVICES RBC 2.84 (L) 4.26 - 5.52 [facility] 10*6/L SERVICES HGB 8.5 (L) 12.2 - 16.4 g/dL [facility] HCT 25.5 (L) 38.4 - 49.3 % [facility] MCH 29.9 26.1 - 32.7 pg [facility] MCV 89.8 81.7 - 95.6 fL [facility] MCHC 33.3 31.2 - 35.0 g/dL [facility] PLT 151 150 - 328 10*3/L [facility] MPV 9.6 (L) 9.8 - 13.0 fL [facility] RDW-CV 19.5 (H) 12.1 - 15.4 % [facility] RDW-SD 58.2 (H) 38.5 - 51.6 fL [facility] NRBC x10^3 <0.01 10*3/L [facility] NRBC/100 WBC 0.0 0.0 - 10.0 /[address] [facility] WBCs SERVICES IPF % 1.2 - 10.7 % [facility] Specimen Blood - ARTERIAL Performing Organization Address City/State/Zipcode Phone Number [facility] CLIA: [id number], [address] [place] [address] [phone] [facility] TROPONIN I (01/12/2019 9:04 AM CDT) TROPONIN I 1.610 (H) <=0.034 ng/mL [facility] Specimen Blood - ARTERIAL Narrative Performed At Equal or Less than 0.034 ng/ml---Normal [facility] Note: Cardiac troponin begins to rise 3-4 hours after the onset of ischemia. Repeat in 4-6 hours if the sample was drawn within 3-4 hours of the onset of the symptom and found normal. Between 0.035 and 0.120 ng/mL--- Borderline. Questionable myocardial injury or necrosis Note: Serial measurement may be necessary to confirm or exclude the diagnosis of myocardial injury or necrosis; Clinical correlation (symptoms, EKGs, imaging studies, and others) required; Repeat in 4-6 hours if clinically indicated. Equal or Higher than 0.121 ng/mL---Abnormal. Myocardial Injury or Necrosis Likely Biotin has been reported to cause a negative bias, interpret results relative to patient's use of biotin. Performing Organization Address City/State/Zipcode Phone Number [facility] CLIA: [id number], [address] [place] [address] [id number] [phone] [facility] POCT GLUCOSE (AUTOMATED) (01/12/2019 7:51 AM CDT) POCT GLU 145 (H) 70 - 110 mg/dL [facility] Specimen Blood Performing Organization Address City/[facility] Cent[facility]ode Phone Number [facility] CLIA: [id number], [address] [place] [phone] [facility] BASIC METABOLIC PANEL (NA, K, CL, CO2, GLUCOSE, BUN, CREATININE, CA) (2018 1:33 AM CDT) NA 137 135 - [address] [facility] mmol/L SERVICES K 4.0 3.5 - 5.[address] [facility] mmol/L SERVICES CL 100 98 - 108 mmol/L [facility] CO2 TOTAL 25 23 - 31 mmol/L [facility] AGAP 12 2 - [address] [facility] BUN 74 (H) 7 - 23 mg/dL [facility] GLUCOSE 136 (H) 70 - 110 mg/dL [facility] CREATININE 4.34 (H) 0.60 - 1.[address] [facility] mg/dL SERVICES CALCIUM 8.8 8.6 - 10.[address] [facility] mg/dL SERVICES eGFR Calculation 14.3 mL/min/1.73m2 [facility] (Non- SERVICES Vietnamese) eGFR Calculation 17.3 mL/min/1.73m2 [facility] () SERVICES Specimen Blood - ARTERIAL Narrative Performed At Association of Glomerular Filtration Rate (GFR) and Staging [facility] of Kidney Disease* + + + + | GFR (mL/min/1.73 m2)| With Kidney Damage|Without Kidney Damage + + + + |>90|Stage one| Normal + + + + |60-89|Stage two| Decreased GFR + + + + |30-59|Stage three| Stage three + + + + |15-29|Stage four | Stage four + + + + |<15 (or dialysis)|Stage five | Stage five + + + + *Each stage assumes the associated GFR level has been in effect for at least three months.Stages 1 to 5, with or without kidney disease, indicate chronic kidney disease. Notes: Determination of stages one and two (with eGFR >59mL/min/1.73 m2) requires estimation of kidney damage for at least three months as defined by structural or functional abnormalities of the kidney, manifested by either: Pathological abnormalities or Markers of kidney damage (including abnormalities in the composition of the blood or urine or abnormalities in imaging tests). Performing Organization Address City/State/Zipcode Phone Number [facility] CLIA: [id number], [address] [place], [place] [id number] [facility] PROFILE / HEMOGRAM (01/12/2019 1:33 AM CDT) WBC 7.17 4.20 - 10.[address] [facility] 10*3/L SERVICES RBC 2.98 (L) 4.26 - 5.[address] [facility] 10*6/L SERVICES HGB 9.2 (L) 12.2 - 16.4 g/dL [facility] HCT 26.5 (L) 38.4 - 49.3 % [facility] MCH 30.9 26.1 - 32.[address] [facility] MCV 88.9 81.7 - 95.[address] [facility] MCHC 34.7 31.2 - 35.0 g/dL [facility] PLT 160 150 - 328 10*3/L [facility] MPV 9.6 (L) 9.8 - 13.[address] [facility] RDW-CV 18.9 (H) 12.1 - 15.4 % [facility] RDW-SD 55.4 (H) 38.5 - 51.[address] [facility] NRBC x10^3 <0.01 10*3/L [facility] NRBC/100 WBC 0.0 0.0 - 10.0 /[address] [facility] WBCs SERVICES IPF % 1.2 - 10.7 % [facility] Specimen Blood - ARTERIAL Performing Organization Address City/State/Zipcode Phone Number [facility] CLIA: [id number], [address] [place] [address] [facility] TROPONIN I (01/12/2019 1:33 AM CDT) [facility] TROPONIN I 0.783 (H) <=0.034 ng/mL [facility] Specimen Blood - ARTERIAL Narrative Performed At Equal or Less than 0.034 ng/ml---Normal [facility] Note: Cardiac troponin begins to rise 3-4 hours after the onset of ischemia. Repeat in 4-6 hours if the sample was drawn within 3-4 hours of the onset of the symptom and found normal. Between 0.035 and 0.120 ng/mL--- Borderline. Questionable myocardial injury or necrosis Note: Serial measurement may be necessary to confirm or exclude the diagnosis of myocardial injury or necrosis; Clinical correlation (symptoms, EKGs, imaging studies, and others) required; Repeat in 4-6 hours if clinically indicated. Equal or Higher than 0.121 ng/mL---Abnormal. Myocardial Injury or Necrosis Likely Biotin has been reported to cause a negative bias, interpret results relative to patient's use of biotin. Performing Organization Address City/State/Zipcode Phone Number [facility] CLIA: [id number], [address] [place] [address] [facility] Prepare Packed RBC (in units), 2 Units (01/11/2019 8:31 PM CDT) [facility] Cross Match Result Compatible LAB ISBT Blood Type Code 6200 LAB Unit Blood Type A Pos LAB Unit Number [id number] LAB Blood Expiration Date & LAB Time Status Information Issued LAB Product Identification Red Blood Cells LAB Product Code [id number] LAB Comment: Performed at [facility] Laboratory Services - [facility] Blood Bank [address] [place] [address] Toll Free: [phone] CLIA No. [id number] Cross Match Result Compatible LAB ISBT Blood Type Code 6200 LAB Unit Blood Type A Pos LAB Unit Number [id number] LAB Blood Expiration Date & LAB Time Status Information Issued LAB Product Identification Red Blood Cells LAB Product Code [id number] LAB Comment: Performed at [facility] Laboratory Services - [facility] Blood Bank [address] [place] [address] Toll Free: [phone] CLIA No. [id number] Specimen Performing Organization Address City/[facility] Centercode Phone Number BLD LAB XR CHEST 1 VW (01/11/2019 8:09 PM CDT) Specimen Narrative Performed At * * * * * * * * ORIGINAL REPORT * * * * * * * * PACS/VR/DOSE EXAM: XR CHEST 1 VW HISTORY: Chest pain COMPARISON: None. FINDINGS: The lungs remain congested and the infiltration in the right lung base also remains but may be clearing slightly. Pleural effusion blunts the right costophrenic angle. The lungs are clear otherwise. The heart is enlarged, as before. Procedure Note [facility], Radiant Results Inft User - 01/12/2019 7:52 AM CDT * * * * * * * * ORIGINAL REPORT * * * * * * * * EXAM: XR CHEST 1 VW HISTORY: Chest pain COMPARISON: None. FINDINGS: The lungs remain congested and the infiltration in the right lung base also remains but may be clearing slightly. Pleural effusion blunts the right costophrenic angle. The lungs are clear otherwise. The heart is enlarged, as before. Performing Organization Address City/[facility] Centercone Phone Number PACS/VR/DOSE BASIC METABOLIC PANEL (NA, K, CL, CO2, GLUCOSE, BUN, CREATININE, CA) (2018 8:02 PM CDT) NA 136 135 - [address] [facility] mmol/L SERVICES K 3.6 3.5 - 5.[address] [facility] mmol/L SERVICES CL 102 98 - 108 mmol/L [facility] CO2 TOTAL 26 23 - 31 mmol/L [facility] AGAP 8 2 - [address] [facility] BUN 62 (H) 7 - 23 mg/dL [facility] GLUCOSE 135 (H) 70 - 110 mg/dL [facility] CREATININE 3.74 (H) 0.60 - 1.[address] [facility] mg/dL SERVICES CALCIUM 8.9 8.6 - 10.[address] [facility] mg/dL SERVICES eGFR Calculation 17.0 mL/min/1.73m2 [facility] (Non- SERVICES Vietnamese) eGFR Calculation 20.6 mL/min/1.73m2 [facility] () SERVICES Specimen Blood - ARTERIAL Narrative Performed At Association of Glomerular Filtration Rate (GFR) and Staging [facility] of Kidney Disease* + + + + | GFR (mL/min/1.73 m2)| With Kidney Damage|Without Kidney Damage + + + + |>90|Stage one| Normal + + + + |60-89|Stage two| Decreased GFR + + + + |30-59|Stage three| Stage three + + + + |15-29|Stage four | Stage four + + + + |<15 (or dialysis)|Stage five | Stage five + + + + *Each stage assumes the associated GFR level has been in effect for at least three months.Stages 1 to 5, with or without kidney disease, indicate chronic kidney disease. Notes: Determination of stages one and two (with eGFR >59mL/min/1.73 m2) requires estimation of kidney damage for at least three months as defined by structural or functional abnormalities of the kidney, manifested by either: Pathological abnormalities or Markers of kidney damage (including abnormalities in the composition of the blood or urine or abnormalities in imaging tests). Performing Organization Address City/State/Zipcode Phone Number [facility] CLIA: [id number], [address] [place] [address] [phone] [facility] TROPONIN I (01/11/2019 8:02 PM CDT) TROPONIN I 0.718 (H) <=0.034 ng/mL [facility] Specimen Blood - ARTERIAL Narrative Performed At Equal or Less than 0.034 ng/ml---Normal [facility] Note: Cardiac troponin begins to rise 3-4 hours after the onset of ischemia. Repeat in 4-6 hours if the sample was drawn within 3-4 hours of the onset of the symptom and found normal. Between 0.035 and 0.120 ng/mL--- Borderline. Questionable myocardial injury or necrosis Note: Serial measurement may be necessary to confirm or exclude the diagnosis of myocardial injury or necrosis; Clinical correlation (symptoms, EKGs, imaging studies, and others) required; Repeat in 4-6 hours if clinically indicated. Equal or Higher than 0.121 ng/mL---Abnormal. Myocardial Injury or Necrosis Likely Biotin has been reported to cause a negative bias, interpret results relative to patient's use of biotin. Performing Organization Address City/[facility] Centercode Phone Number [facility] CLIA: [id number], [address] [place] [phone] [facility] PROFILE / HEMOGRAM (01/11/2019 7:42 PM CDT) WBC 6.86 4.20 - 10.[address] [facility] 10*3/L SERVICES RBC 2.60 (L) 4.26 - 5.[address] [facility] 10*6/L SERVICES HGB 7.8 (L) 12.2 - 16.4 g/dL [facility] HCT 23.7 (L) 38.4 - 49.3 % [facility] MCH 30.0 26.1 - 32.[address] [facility] MCV 91.2 81.7 - 95.[address] [facility] MCHC 32.9 31.2 - 35.0 g/dL [facility] PLT 158 150 - 328 10*3/L [facility] MPV 10.1 9.8 - 13.[address] [facility] RDW-CV 18.6 (H) 12.1 - 15.4 % [facility] RDW-SD 58.3 (H) 38.5 - 51.[address] [facility] NRBC x10^3 <0.01 10*3/L [facility] NRBC/100 WBC 0.0 0.0 - 10.0 /[address] [facility] WBCs SERVICES IPF % 1.2 - 10.7 % [facility] Specimen Blood - ARTERIAL Performing Organization Address City/State/Zipcode Phone Number [facility] CLIA: [id number], [address] [place] [phone] [facility] Hepatitis B Surface Antibody (HBsAb) (01/11/2019 5:05 PM CDT) HBsAB Positive [facility] HBsAb 44.20 mIU/mL [facility] Semi-Quantitative SERVICES Specimen Blood - VENOUS Narrative Performed At Interpretation:Hepatitis B Surface Antibody [facility] Negative - Patient is considered to be not immune to infection with HBV. Positive - Anti-HBs detected at greater than or equal to 12 mIU/mL.Patient is considered to be immune to infection with HBV. Performing Organization Address City/[facility]/Zipcode Phone Number [facility] CLIA: [id number], [address] [place] [address] [phone] [facility] PROFILE / HEMOGRAM (01/11/2019 4:49 PM CDT) WBC 6.18 4.20 - 10.[address] [facility] 10*3/L SERVICES RBC 2.16 (L) 4.26 - 5.[address] [facility] 10*6/L SERVICES HGB 6.7 (L) 12.2 - 16.4 g/dL [facility] SERVICES HCT 20.1 (L) 38.4 - 49.3 % [facility] MCH 31.0 26.1 - 32.[address] [facility] SERVICES MCV 93.1 81.7 - 95.[address] [facility] SERVICES MCHC 33.3 31.2 - 35.0 g/dL [facility] SERVICES PLT 160 150 - 328 10*3/L [facility] SERVICES MPV 9.9 9.8 - 13.[address] [facility] RDW-CV 18.6 (H) 12.1 - 15.4 % [facility] RDW-SD 60.1 (H) 38.5 - 51.[address] [facility] NRBC x10^3 <0.01 10*3/L [facility] NRBC/100 WBC 0.0 0.0 - 10.0 /[address] [facility] WBCs SERVICES IPF % 1.2 - 10.7 % [facility] Specimen Blood - VENOUS Performing Organization Address City/[facility]/Zipcode Phone Number [facility] CLIA: [id number], [address] [place] [address] [phone] [facility] POCT GLUCOSE (AUTOMATED) (01/11/2019 1:07 PM CDT) POCT GLU 178 (H) 70 - 110 mg/dL [facility] Specimen Blood Performing Organization Address City/[facility]/Zipcode Phone Number [facility] CLIA: [id number], [address] [place] [address] [phone] [facility] Hepatitis B Surface Antigen (HBsAg) (01/11/2019 9:59 AM CDT) HBsAg HEPATITIS B Negative [facility] SURFACE ANTIGEN SERVICES NEGATIVE HBsAg 0.[address] [facility] Semi-Quantitative SERVICES Specimen Blood - VENOUS Performing Organization Address City/State/Zipcode Phone Number [facility] CLIA: [id number], [address] [place] [address] [facility] BASIC METABOLIC PANEL (NA, K, CL, CO2, GLUCOSE, BUN, CREATININE, CA) (2018 9:59 AM CDT) NA 137 135 - [address] [facility] mmol/L SERVICES K 5.2 (H) 3.5 - 5.[address] [facility] mmol/L SERVICES CL 103 98 - 108 mmol/L [facility] SERVICES CO2 TOTAL 22 (L) 23 - 31 mmol/L [facility] SERVICES AGAP 12 2 - [address] [facility] SERVICES BUN 100 (H) 7 - 23 mg/dL [facility] SERVICES GLUCOSE 151 (H) 70 - 110 mg/dL [facility] SERVICES CREATININE 6.61 (H) 0.60 - 1.[address] [facility] mg/dL SERVICES CALCIUM 8.5 (L) 8.6 - 10.[address] [facility] mg/dL SERVICES eGFR Calculation 8.8 mL/min/1.73m2 [facility] (Non- SERVICES Vietnamese) eGFR Calculation 10.7 mL/min/1.73m2 [facility] () SERVICES Specimen Blood - VENOUS Narrative Performed At Association of Glomerular Filtration Rate (GFR) and Staging [facility] SERVICES of Kidney Disease* + + + + | GFR (mL/min/1.73 m2)| With Kidney Damage|Without Kidney Damage + + + + |>90|Stage one| Normal + + + + |60-89|Stage two| Decreased GFR + + + + |30-59|Stage three| Stage three + + + + |15-29|Stage four | Stage four + + + + |<15 (or dialysis)|Stage five | Stage five + + + + *Each stage assumes the associated GFR level has been in effect for at least three months.Stages 1 to 5, with or without kidney disease, indicate chronic kidney disease. Notes: Determination of stages one and two (with eGFR >59mL/min/1.73 m2) requires estimation of kidney damage for at least three months as defined by structural or functional abnormalities of the kidney, manifested by either: Pathological abnormalities or Markers of kidney damage (including abnormalities in the composition of the blood or urine or abnormalities in imaging tests). Performing Organization Address City/State/Zipcode Phone Number [facility] CLIA: [id number], [address] [place] [address] [phone] [facility] PROFILE / HEMOGRAM (01/11/2019 9:59 AM CDT) WBC 5.60 4.20 - 10.[address] [facility] 10*3/L SERVICES RBC 2.77 (L) 4.26 - 5.[address] [facility] 10*6/L SERVICES HGB 8.6 (L) 12.2 - 16.4 g/dL [facility] SERVICES HCT 26.3 (L) 38.4 - 49.3 % [facility] SERVICES MCH 31.0 26.1 - 32.[address] [facility] SERVICES MCV 94.9 81.7 - 95.[address] [facility] SERVICES MCHC 32.7 31.2 - 35.0 g/dL [facility] SERVICES PLT 167 150 - 328 10*3/L [facility] SERVICES MPV 10.2 9.8 - 13.[address] [facility] SERVICES RDW-CV 18.6 (H) 12.1 - 15.4 % [facility] SERVICES RDW-SD 61.6 (H) 38.5 - 51.[address] [facility] SERVICES NRBC x10^3 <0.01 10*3/L [facility] SERVICES NRBC/100 WBC 0.0 0.0 - 10.0 /[address] [facility] WBCs SERVICES IPF % 1.2 - 10.7 % [facility] SERVICES Specimen Blood - VENOUS Performing Organization Address City/[facility]/Zipcode Phone Number [facility] CLIA: [id number], [address] [place] [address] [phone] [facility] POCT GLUCOSE (AUTOMATED) (01/11/2019 7:34 AM CDT) POCT GLU 194 (H) 70 - 110 mg/dL [facility] Specimen Blood Performing Organization Address City/[facility]/Zipcode Phone Number [facility] CLIA: [id number], [address] [place] [phone] [facility] AC PANEL 20 + LACTIC ACID (01/11/2019 6:34 AM CDT) PH 7.41 7.35 - 7.[address] [facility] PCO2 31 (L) 35 - [address] [facility] PO2 155 (H) 80 - [address] [facility] HCO3 19 (L) 22 - 26 mEq/L [facility] SERVICES BE -4.7 (L) -3.0 - 3.0 mEq/L [facility] THB 8.1 (LL) 13.5 - 18.0 g/dL [facility] %O2HB 96.7 94.0 - 99.0 % [facility] %COHB ART 0.8 0.0 - 1.5 % [facility] %METHB ART 0.5 0.4 - 1.5 % [facility] SERVICES VOL%O2 ART 11.4 (L) 15.0 - 23.0 % [facility] NA 134 (L) 135 - 145 mmol/L [facility] K+ 5.5 (H) 3.5 - 5.0 mmol/L [facility] AC CA IONZ 4.40 (L) 4.50 - 5.30 mg/dL [facility] SERVICES GLUCOSE 137 (H) 70 - 110 mg/dL [facility] SERVICES LACTIC ACID 1.18 0.50 - 2.20 mmol/L [facility] SERVICES Specimen Blood - ARTERIAL Performing Organization Address City/State/Zipcode Phone Number [facility] CLIA: [id number], [address] [place] [address] [phone] [facility] BASIC METABOLIC PANEL (NA, K, CL, CO2, GLUCOSE, BUN, CREATININE, CA) (2018 6:23 AM CDT) NA 138 135 - [address] [facility] mmol/L SERVICES K 5.5 (H) 3.5 - 5.[address] [facility] mmol/L SERVICES CL 104 98 - 108 mmol/L [facility] SERVICES CO2 TOTAL 21 (L) 23 - 31 mmol/L [facility] SERVICES AGAP 13 2 - [address] [facility] SERVICES BUN 94 (H) 7 - 23 mg/dL [facility] SERVICES GLUCOSE 141 (H) 70 - 110 mg/dL [facility] SERVICES CREATININE 6.57 (H) 0.60 - 1.[address] [facility] mg/dL SERVICES CALCIUM 8.5 (L) 8.6 - 10.[address] [facility] mg/dL SERVICES eGFR Calculation 8.9 mL/min/1.73m2 [facility] (Non- SERVICES Vietnamese) eGFR Calculation 10.7 mL/min/1.73m2 [facility] () SERVICES Specimen Blood - VENOUS Narrative Performed At [facility] of Glomerular Filtration Rate (GFR) and Staging [facility] SERVICES of Kidney Disease* + + + + | GFR (mL/min/1.73 m2)| With Kidney Damage|Without Kidney Damage + + + + |>90|Stage one| Normal + + + + |60-89|Stage two| Decreased GFR + + + + |30-59|Stage three| Stage three + + + + |15-29|Stage four | Stage four + + + + |<15 (or dialysis)|Stage five | Stage five + + + + *Each stage assumes the associated GFR level has been in effect for at least three months.Stages 1 to 5, with or without kidney disease, indicate chronic kidney disease. Notes: Determination of stages one and two (with eGFR >59mL/min/1.73 m2) requires estimation of kidney damage for at least three months as defined by structural or functional abnormalities of the kidney, manifested by either: Pathological abnormalities or Markers of kidney damage (including abnormalities in the composition of the blood or urine or abnormalities in imaging tests). Performing Organization Address City/State/Zipcode Phone Number [facility] CLIA: [id number], [address] [place], [place] [address] [facility] PROFILE / HEMOGRAM (01/11/2019 6:23 AM CDT) WBC 6.49 4.20 - 10.[address] [facility] 10*3/L SERVICES RBC 2.73 (L) 4.26 - 5.[address] [facility] 10*6/L SERVICES HGB 8.1 (L) 12.2 - 16.4 g/dL [facility] HCT 25.8 (L) 38.4 - 49.3 % [facility] MCH 29.7 26.1 - 32.[address] [facility] MCV 94.5 81.7 - 95.[address] [facility] MCHC 31.4 31.2 - 35.0 g/dL [facility] PLT 164 150 - 328 10*3/L [facility] MPV 9.7 (L) 9.8 - 13.[address] [facility] RDW-CV 18.2 (H) 12.1 - 15.4 % [facility] RDW-SD 60.7 (H) 38.5 - 51.[address] [facility] NRBC x10^3 <0.01 10*3/L [facility] NRBC/100 WBC 0.0 0.0 - 10.0 /[address] [facility] WBCs SERVICES IPF % 1.2 - 10.7 % [facility] Specimen Blood - VENOUS Performing Organization Address City/State/Zipcode Phone Number [facility] CLIA: [id number], [address] [place] [address] [phone] [facility] BASIC METABOLIC PANEL (NA, K, CL, CO2, GLUCOSE, BUN, CREATININE, CA) (2018 5:10 AM CDT) NA 138 135 - [address] [facility] mmol/L SERVICES K 6.9 (HH) 3.5 - 5.[address] [facility] mmol/L SERVICES CL 105 98 - 108 mmol/L [facility] CO2 TOTAL 21 (L) 23 - 31 mmol/L [facility] AGAP 12 2 - [address] [facility] BUN 84 (H) 7 - 23 mg/dL [facility] GLUCOSE 162 (H) 70 - 110 mg/dL [facility] CREATININE 5.92 (H) 0.60 - 1.[address] [facility] mg/dL SERVICES CALCIUM 7.7 (L) 8.6 - 10.[address] [facility] mg/dL SERVICES eGFR Calculation 10.0 mL/min/1.73m2 [facility] (Non- SERVICES Vietnamese) eGFR Calculation 12.1 mL/min/1.73m2 [facility] () SERVICES Specimen Blood - VENOUS Narrative Performed At Association of Glomerular Filtration Rate (GFR) and Staging [facility] of Kidney Disease* + + + + | GFR (mL/min/1.73 m2)| With Kidney Damage|Without Kidney Damage + + + + |>90|Stage one| Normal + + + + |60-89|Stage two| Decreased GFR + + + + |30-59|Stage three| Stage three + + + + |15-29|Stage four | Stage four + + + + |<15 (or dialysis)|Stage five | Stage five + + + + *Each stage assumes the associated GFR level has been in effect for at least three months.Stages 1 to 5, with or without kidney disease, indicate chronic kidney disease. Notes: Determination of stages one and two (with eGFR >59mL/min/1.73 m2) requires estimation of kidney damage for at least three months as defined by structural or functional abnormalities of the kidney, manifested by either: Pathological abnormalities or Markers of kidney damage (including abnormalities in the composition of the blood or urine or abnormalities in imaging tests). Performing Organization Address City/State/Zipcode Phone Number [facility] CLIA: [id number], [address] [place] [phone] [facility] PROFILE / HEMOGRAM (01/11/2019 5:10 AM CDT) WBC 5.91 4.20 - 10.70 [facility] 10*3/L SERVICES RBC 2.57 (L) 4.26 - 5.52 [facility] 10*6/L SERVICES HGB 7.9 (L) 12.2 - 16.4 g/dL [facility] HCT 25.0 (L) 38.4 - 49.3 % [facility] MCH 30.7 26.1 - 32.7 pg [facility] MCV 97.3 (H) 81.7 - 95.6 fL [facility] MCHC 31.6 31.2 - 35.0 g/dL [facility] PLT 152 150 - 328 10*3/L [facility] MPV 10.3 9.8 - 13.0 fL [facility] RDW-CV 17.6 (H) 12.1 - 15.4 % [facility] RDW-SD 58.9 (H) 38.5 - 51.6 fL [facility] NRBC x10^3 <0.01 10*3/L [facility] NRBC/100 WBC 0.0 0.0 - 10.0 /100 [facility] WBCs SERVICES IPF % 1.2 - 10.7 % [facility] Specimen Blood - VENOUS Performing Organization Address City/State/Zipcode Phone Number [facility] CLIA: [id number], [address] [place] [phone] [facility] Lactic Acid Whole Blood (01/11/2019 5:09 AM CDT) Pathologist [facility] LACTIC ACID 3.62 (H) 0.50 - 2.20 mmol/L [facility] Specimen Blood - VENOUS Performing Organization Address City/[facility]/Zipcode Phone Number [facility] CLIA: [id number], [address] [place] [phone] [facility] Prepare Packed RBC (in units), 1 Units (01/11/2019 3:57 AM CDT) Pathologist [facility] Cross Match Result Compatible LAB ISBT Blood Type Code 6200 LAB Unit Blood Type A Pos LAB Unit Number [id number] LAB Blood Expiration Date & LAB Time Status Information Issued LAB Product Identification Red Blood Cells LAB Product Code [id number] LAB Comment: Performed at [facility] Laboratory Services - [facility] Blood Bank [address] [place] [address] Toll Free: [phone] CLIA No. [id number] Specimen Performing Organization Address City/State/Zipcode Phone Number [facility] LAB BASIC METABOLIC PANEL (NA, K, CL, CO2, GLUCOSE, BUN, CREATININE, CA) (2018 2:26 AM CDT) Pathologist [facility] NA 139 135 - [address] [facility] mmol/L SERVICES K 5.3 (H) 3.5 - 5.[address] [facility] mmol/L SERVICES CL 105 98 - 108 mmol/L [facility] CO2 TOTAL 23 23 - 31 mmol/L [facility] AGAP 11 2 - [address] [facility] BUN 87 (H) 7 - 23 mg/dL [facility] GLUCOSE 141 (H) 70 - 110 mg/dL [facility] CREATININE 6.19 (H) 0.60 - 1.[address] [facility] mg/dL SERVICES CALCIUM 8.3 (L) 8.6 - 10.[address] [facility] mg/dL SERVICES eGFR Calculation 9.5 mL/min/1.73m2 [facility] (Non- SERVICES Vietnamese) eGFR Calculation 11.5 mL/min/1.73m2 [facility] () SERVICES Specimen Blood - VENOUS Narrative Performed At [facility] of Glomerular Filtration Rate (GFR) and Staging [facility] of Kidney Disease* + + + + | GFR (mL/min/1.73 m2)| With Kidney Damage|Without Kidney Damage + + + + |>90|Stage one| Normal + + + + |60-89|Stage two| Decreased GFR + + + + |30-59|Stage three| Stage three + + + + |15-29|Stage four | Stage four + + + + |<15 (or dialysis)|Stage five | Stage five + + + + *Each stage assumes the associated GFR level has been in effect for at least three months.Stages 1 to 5, with or without kidney disease, indicate chronic kidney disease. Notes: Determination of stages one and two (with eGFR >59mL/min/1.73 m2) requires estimation of kidney damage for at least three months as defined by structural or functional abnormalities of the kidney, manifested by either: Pathological abnormalities or Markers of kidney damage (including abnormalities in the composition of the blood or urine or abnormalities in imaging tests). Performing Organization Address City/State/Zipcode Phone Number [facility] CLIA: [id number], [address] [place] [phone] [facility] PROFILE / HEMOGRAM (01/11/2019 2:25 AM CDT) WBC 6.21 4.20 - 10.[address] [facility] 10*3/L SERVICES RBC 2.25 (L) 4.26 - 5.[address] [facility] 10*6/L SERVICES HGB 7.0 (L) 12.2 - 16.4 g/dL [facility] HCT 22.0 (L) 38.4 - 49.3 % [facility] MCH 31.1 26.1 - 32.[address] [facility] MCV 97.8 (H) 81.7 - 95.[address] [facility] MCHC 31.8 31.2 - 35.0 g/dL [facility] PLT 170 150 - 328 10*3/L [facility] MPV 10.0 9.8 - 13.[address] [facility] RDW-CV 18.2 (H) 12.1 - 15.4 % [facility] RDW-SD 62.9 (H) 38.5 - 51.[address] [facility] NRBC x10^3 <0.01 10*3/L [facility] NRBC/100 WBC 0.0 0.0 - 10.0 /[address] [facility] WBCs SERVICES IPF % 1.2 - 10.7 % [facility] Specimen Blood - VENOUS Performing Organization Address City/State/Zipcode Phone Number [facility] CLIA: [id number], [address] [place] [phone] [facility] Prepare Packed RBC (in units), 1 Units (01/10/2019 10:39 PM CDT) [facility] Cross Match Result Compatible LAB ISBT Blood Type Code 0600 LAB Unit Blood Type A Neg LAB Unit Number [id number] LAB Blood Expiration Date & [id number] LAB Time Status Information Issued LAB Product Identification Red Blood Cells LAB Product Code [id number] LAB Comment: Performed at [facility] Laboratory Services - [facility] Blood Bank [address] [place] [address] Toll Free: [phone] CLIA No. [id number] Specimen Performing Organization Address City/[facility] Phone Number [facility] LAB BLOOD CULTURE SCREEN (01/10/2019 10:13 PM CDT) [facility] Blood No organisms isolated No growth [facility] Culture-Aerobic Comment: SERVICES Previous preliminary verified result was Culture In Progress on 01/11/2019 at 0303 CDT Previous preliminary verified result was No growth at 24 hours on 01/12/2019 at 0001 CDT Previous preliminary verified result was No growth at 48 hours on 01/13/2019 at 0001 CDT Previous preliminary verified result was No growth at 72 hours on 01/14/2019 at 0001 CDT Blood No organisms isolated No growth [facility] Culture-Anaerobic Comment: SERVICES Previous preliminary verified result was Culture In Progress on 01/11/2019 at 0303 CDT Previous preliminary verified result was No growth at 24 hours on 01/12/2019 at 0001 CDT Previous preliminary verified result was No growth at 48 hours on 01/13/2019 at 0001 CDT Previous preliminary verified result was No growth at 72 hours on 01/14/2019 at 0001 CDT Specimen Blood - VENOUS Performing Organization Address City/[facility] Phone Number [facility] CLIA: [id number], [address] [place] [phone] [facility] BLOOD CULTURE SCREEN (01/10/2019 10:13 PM CDT) Pathologist [facility] Blood No organisms isolated No growth [facility] Culture-Aerobic Comment: SERVICES Previous preliminary verified result was Culture In Progress on 01/11/2019 at 0303 CDT Previous preliminary verified result was No growth at 24 hours on 01/12/2019 at 0001 CDT Previous preliminary verified result was No growth at 48 hours on 01/13/2019 at 0001 CDT Previous preliminary verified result was No growth at 72 hours on 01/14/2019 at 0001 CDT Blood No organisms isolated No growth [facility] Culture-Anaerobic Comment: SERVICES Previous preliminary verified result was Culture In Progress on 01/11/2019 at 0303 CDT Previous preliminary verified result was No growth at 24 hours on 01/12/2019 at 0001 CDT Previous preliminary verified result was No growth at 48 hours on 01/13/2019 at 0001 CDT Previous preliminary verified result was No growth at 72 hours on 01/14/2019 at 0001 CDT Specimen Blood - VENOUS Performing Organization Address City/[facility] Phone Number [facility] CLIA: [id number], [address] [place] [phone] [facility] Lactic Acid Whole Blood (01/10/2019 8:43 PM CDT) [facility] LACTIC ACID 2.63 (H) 0.50 - 2.20 mmol/L [facility] SERVICES Specimen Blood - VENOUS Performing Organization Address City/[facility] Phone Number [facility] CLIA: [id number], [address] [place] [phone] [facility] POCT GLUCOSE (AUTOMATED) (01/10/2019 8:42 PM CDT) [facility] POCT GLU 130 (H) 70 - 110 mg/dL [facility] Specimen Blood Performing Organization Address City/[facility] Phone Number [facility] CLIA: [id number], [address] [place] [phone] [facility] Type and Screen - ONCE STAT (01/10/2019 8:06 PM CDT) [facility] ABO & RH A POSITIVE LAB Comment: Performed at [facility] Laboratory Services - [facility] Blood [place] [address] Toll Free: [phone] CLIA No. [id number] IAT Negative LAB Comment: Performed at [facility] Laboratory Services - [facility] Blood [place] [address] Toll Free: [phone] CLIA No. [id number] Specimen VENOUS Performing Organization Address City/[facility]/Zipcode Phone Number [facility] LAB MRSA / MSSA Screen by PCR, Nares (01/10/2019 7:42 PM CDT) Pathologist [facility] MRSA Screen by PCR, Negative Negative [facility] Nares SERVICES MSSA Screen by PCR, Negative Negative [facility] Nares SERVICES MRSA/MSSA Positive? No No [facility] Specimen Swab - NARES, BOTH SIDES Performing Organization Address City/State/[facility] Cent[facility]ode Phone Number [facility] CLIA: [id number], [address] [place] [address] [facility] GLYCOSYLATED HEMOGLOBIN (A1C) (01/10/2019 7:41 PM CDT) Pathologist [facility] HGB A1C 6.3 (H) 4.0 - 6.0 % [facility] SERVICES Specimen Blood - VENOUS Performing Organization Address City/[facility] Phone Number [facility] CLIA: [id number], [address] [place] [address] [phone] [facility] CBC WITH DIFFERENTIAL (01/10/2019 7:41 PM CDT) WBC 7.95 4.20 - 10.[address] [facility] 10*3/L SERVICES RBC 2.35 (L) 4.26 - 5.[address] [facility] 10*6/L SERVICES HGB 7.2 (L) 12.2 - 16.[address] [facility] g/dL SERVICES HCT 23.4 (L) 38.4 - 49.3 % [facility] SERVICES MCV 99.6 (H) 81.7 - 95.[address] [facility] SERVICES MCH 30.6 26.1 - 32.[address] [facility] SERVICES MCHC 30.8 (L) 31.2 - 35.[address] [facility] g/dL SERVICES RDW-SD 61.1 (H) 38.5 - 51.[address] [facility] SERVICES RDW-CV 16.9 (H) 12.1 - 15.4 % [facility] SERVICES PLT 194 150 - [address] [facility] 10*3/L SERVICES MPV 9.9 9.8 - 13.[address] [facility] SERVICES NRBC/100 WBC 0.0 0.0 - 10.0 /[address] [facility] WBCs SERVICES NRBC x10^3 <0.01 10*3/L [facility] SERVICES GRAN MAT (NEUT) % 64.4 % [facility] IMM GRAN % 0.50 % [facility] LYMPH % 8.7 % [facility] MONO % 16.6 % [facility] EOS % 8.7 % [facility] BASO % 1.1 % [facility] GRAN MAT x10^3(ANC) 5.12 1.99 - 6.95 [facility] 10*3/uL SERVICES IMM GRAN x10^3 0.04 0.00 - 0.06 [facility] 10*3/uL SERVICES LYMPH x10^3 0.69 (L) 1.09 - 3.23 [facility] 10*3/uL SERVICES MONO x10^3 1.32 (H) 0.36 - 1.02 [facility] 10*3/uL SERVICES EOS x10^3 0.69 (H) 0.06 - 0.53 [facility] 10*3/uL SERVICES BASO x10^3 0.09 0.01 - 0.09 [facility] 10*3/uL SERVICES Specimen Blood - VENOUS Performing Organization Address City/State/Zipcode Phone Number [facility] CLIA: [id number], [address] [place] [address] [phone] [facility] TROPONIN I (01/10/2019 7:40 PM CDT) TROPONIN I 0.176 (H) <=0.034 ng/mL [facility] SERVICES Specimen Blood - VENOUS Narrative Performed At Equal or Less than 0.034 ng/ml---Normal [facility] Note: Cardiac troponin begins to rise 3-4 hours after the onset of ischemia. Repeat in 4-6 hours if the sample was drawn within 3-4 hours of the onset of the symptom and found normal. Between 0.035 and 0.120 ng/mL--- Borderline. Questionable myocardial injury or necrosis Note: Serial measurement may be necessary to confirm or exclude the diagnosis of myocardial injury or necrosis; Clinical correlation (symptoms, EKGs, imaging studies, and others) required; Repeat in 4-6 hours if clinically indicated. Equal or Higher than 0.121 ng/mL---Abnormal. Myocardial Injury or Necrosis Likely Biotin has been reported to cause a negative bias, interpret results relative to patient's use of biotin. Performing Organization Address City/State/Zipcode Phone Number [facility] CLIA: [id number], [address] [place] [address] [phone] [facility] FIBRINOGEN (01/10/2019 7:40 PM CDT) Fibrinogen 335 167 - 453 mg/dL [facility] SERVICES Specimen Blood - VENOUS Performing Organization Address [facility] Phone Number [facility] CLIA: [id number], [address] [place] [address] [facility] Phosphorus Serum (01/10/2019 7:40 PM CDT) PHOSPHORUS 5.3 (H) 2.5 - 5.0 mg/dL [facility] SERVICES Specimen Blood - VENOUS Performing Organization Address [facility] Phone Number [facility] CLIA: [id number], [address] [place] [address] [phone] [facility] Magnesium Serum (01/10/2019 7:40 PM CDT) MAGNESIUM 2.2 1.7 - 2.4 mg/dL [facility] SERVICES Specimen Blood - VENOUS Performing Organization Address [facility] Phone Number [facility] CLIA: [id number], [address] [place] [address] [phone] [facility] Basic Metabolic Panel (NA, K, CL, CO2, Glucose, BUN, Creatinine, CA) (2018 7:40 PM CDT) NA 138 135 - [address] [facility] mmol/L SERVICES K 5.4 (H) 3.5 - 5.[address] [facility] mmol/L SERVICES CL 103 98 - 108 mmol/L [facility] SERVICES CO2 TOTAL 24 23 - 31 mmol/L [facility] SERVICES AGAP 11 2 - [address] [facility] SERVICES BUN 69 (H) 7 - 23 mg/dL [facility] SERVICES GLUCOSE 143 (H) 70 - 110 mg/dL [facility] SERVICES CREATININE 5.72 (H) 0.60 - 1.[address] [facility] mg/dL SERVICES CALCIUM 8.3 (L) 8.6 - 10.[address] [facility] mg/dL SERVICES eGFR Calculation 10.4 mL/min/1.73m2 [facility] (Non- SERVICES Vietnamese) eGFR Calculation 12.6 mL/min/1.73m2 [facility] () SERVICES Specimen Blood - VENOUS Narrative Performed At [facility] of Glomerular Filtration Rate (GFR) and Staging [facility] SERVICES of Kidney Disease* + + + + | GFR (mL/min/1.73 m2)| With Kidney Damage|Without Kidney Damage + + + + |>90|Stage one| Normal + + + + |60-89|Stage two| Decreased GFR + + + + |30-59|Stage three| Stage three + + + + |15-29|Stage four | Stage four + + + + |<15 (or dialysis)|Stage five | Stage five + + + + *Each stage assumes the associated GFR level has been in effect for at least three months.Stages 1 to 5, with or without kidney disease, indicate chronic kidney disease. Notes: Determination of stages one and two (with eGFR >59mL/min/1.73 m2) requires estimation of kidney damage for at least three months as defined by structural or functional abnormalities of the kidney, manifested by either: Pathological abnormalities or Markers of kidney damage (including abnormalities in the composition of the blood or urine or abnormalities in imaging tests). Performing Organization Address City/State/Zipcode Phone Number [facility] CLIA: [id number], [address] [place] [phone] [facility] Prothrombin Time / INR (01/10/2019 7:40 PM CDT) PROTIME PATIENT 14.4 (H) 10.1 - 12.[address] [facility] LABORATORY Seconds SERVICES INR 1.3Comment: Normal [facility] LABORATORY INR <1.1; Warfarin SERVICES Therapeutic range 2.0 to 3.0 or 2.5 to 3.5, depending upon the indications. Specimen Blood - VENOUS Performing Organization Address City/State/Zipcode Phone Number [facility] LABORATORY SERVICES CLIA: [id number], [address] [place] [address] [phone] XR CHEST 1 VW (01/10/2019 10:03 AM CDT) Specimen Narrative Performed At HISTORY: Chest pain. Vomiting. PACS/VR/DOSE TECHNIQUE: Portable AP semierect view of the chest is obtained. Comparison is made with 04/22/2015 study. FINDINGS: Mild cardiomegaly noted with mild bilateral pulmonary edema. Small right pleural effusion suspected. No focal consolidation. No pneumothorax. CONCLUSIONS: Mild CHF. Procedure Note [facility], Radiant Results Inft User - 01/10/2019 10:05 AM CDT HISTORY: Chest pain. Vomiting. TECHNIQUE: Portable AP semierect view of the chest is obtained. Comparison is made with 04/22/2015 study. FINDINGS: Mild cardiomegaly noted with mild bilateral pulmonary edema. Small right pleural effusion suspected. No focal consolidation. No pneumothorax. CONCLUSIONS: Mild CHF. Performing Organization Address City/[facility] Phone Number PACS/VR/DOSE ABORH CONFIRMATION (01/10/2019 9:20 AM CDT) ABO & RH A Positive LAB Comment: Performed at [facility] Laboratory Services - [facility] Blood Bank [address] [place] [phone] Toll Free: [phone] CLIA No. [id number] Specimen Performing Organization Address [facility] Phone Number BLD LAB Type and Screen - ONCE STAT (01/10/2019 9:00 AM CDT) ABO & RH A Positive LAB Comment: Performed at [facility] Laboratory Services - [facility] Blood Bank [address] [place] [phone] Toll Free: [phone] CLIA No. [id number] IAT Negative LAB Comment: Performed at [facility] Laboratory Services - [facility] Blood Bank [address] [place] [phone] Toll Free: [phone] CLIA No. [id number] Specimen Blood - VENOUS Performing Organization Address City/[facility] Centercode Phone Number BLD LAB CBC WITH DIFFERENTIAL (01/10/2019 8:30 AM CDT) WBC 7.89 4.20 - 10.70 [facility] 10*3/L HOSPITAL LABORATORY RBC 2.87 (L) 4.26 - 5.52 [facility] 10*6/L HOSPITAL LABORATORY HGB 9.1 (L) 12.2 - 16.4 [facility] g/dL HOSPITAL LABORATORY HCT 28.2 (L) 38.4 - 49.3 % [facility] MCV 98.3 (H) 81.7 - 95.6 fL [facility] MCH 31.7 26.1 - 32.7 pg [facility] MCHC 32.3 31.2 - 35.0 [facility] g/dL [facility]ORAT[facility] RDW-SD 59.9 (H) 38.5 - 51.6 fL [facility] RDW-CV 17.1 (H) 12.1 - 15.4 % [facility] PLT 200 150 - 328 [facility] 10*3/L [facility] MPV 9.8 9.8 - 13.0 fL [facility] NRBC/100 WBC 0.0 0.0 - 10.0 /100 [facility] WBCs [facility] NRBC x10^3 <0.01 10*3/L [facility] GRAN MAT (NEUT) % 76.2 % [facility] IMM GRAN % 0.60 % [facility] LYMPH % 4.2 % [facility] MONO % 8.5 % [facility] EOS % 9.5 % [facility] BASO % 1.0 % [facility] GRAN MAT x10^3(ANC) 6.01 1.99 - 6.95 [facility] 10*3/uL HOSPITAL LABORATORY IMM GRAN x10^3 0.05 0.00 - 0.06 [facility] 10*3/uL HOSPITAL LABORATORY LYMPH x10^3 0.33 (L) 1.09 - 3.23 [facility] 10*3/uL HOSPITAL LABORATORY MONO x10^3 0.67 0.36 - 1.02 [facility] 10*3/uL HOSPITAL LABORATORY EOS x10^3 0.75 (H) 0.06 - 0.53 [facility] 10*3/uL HOSPITAL LABORATORY BASO x10^3 0.08 0.01 - 0.09 [facility] 10*3/uL HOSPITAL LABORATORY Specimen Blood - VENOUS Performing Organization Address City/[facility] Centercode Phone Number [facility] CLIA: [id number], [address] [place] [address] Prothrombin Time (PT) / INR (01/10/2019 8:30 AM CDT) [facility] PROTIME PATIENT 15.0 (H) 12.0 - 14.7 [facility] LABORATORY INR 1.2Comment: Normal [facility] INR <1.1; Warfarin [facility] Therapeutic range LABORATORY 2.0 to 3.0 or 2.5 to 3.5, depending upon the indications. Specimen Blood - VENOUS Performing Organization Address [facility] Phone Number [facility] CLIA: [id number], [address] [place] [address] Hepatic Function Panel (ALB, T.PRO, BILI T, BU/BC, ALT, AST, ALK PHOS) (2018 8:30 AM CDT) [facility] TOTAL BILI 1.2 (H) 0.1 - 1.1 mg/dL [facility] BILI UNCON 0.2 0.1 - 1.1 mg/dL [facility] BILI CONJ 0.1 0.0 - 0.3 mg/dL [facility] T PROTEIN 8.1 6.3 - 8.2 g/dL [facility] ALBUMIN 4.0 3.5 - 5.0 g/dL [facility] ALK PHOS 123 (H) 34 - 122 U/L [facility] ALT(SGPT) 75 (H) 9 - 51 U/L [facility] AST(SGOT) 179 (H) 13 - 40 U/L [facility] Specimen Blood - VENOUS Performing Organization Address City/[facility] Centercode Phone Number [facility] CLIA: [id number], [address] [place] [address] Basic Metabolic Panel (NA, K, CL, CO2, GLUCOSE, BUN, CREATININE, CA) (2018 8:30 AM CDT) [facility] NA 140 135 - 145 [facility] mmol/L [facility] K 5.0 3.5 - 5.0 [facility] mmol/L [facility] CL 102 98 - 108 mmol/L [facility] CO2 TOTAL 24 23 - 31 mmol/L [facility] AGAP 14 2 - 16 [facility] BUN 46 (H) 7 - 23 mg/dL [facility] GLUCOSE 180 (H) 70 - 110 mg/dL [facility] CREATININE 5.08 (H) 0.60 - 1.25 [facility] mg/dL [facility] CALCIUM 8.7 8.6 - 10.6 [facility] mg/dL [facility] eGFR Calculation 11.9 mL/min/1.73m2 [facility] (Non-Formerly named [facility] LABORATORY Vietnamese) eGFR Calculation 14.5 mL/min/1.73m2 [facility] () [facility] LABORAT[facility] Specimen Blood - VENOUS Narrative Performed At Slight hemolysis [facility] Association of Glomerular Filtration Rate (GFR) and Staging of Kidney Disease* + + +- + | GFR (mL/min/1.73 m2)| With Kidney Damage|Without Kidney Damage + + +- + |>90| Stage one| Normal + + +- + |60-89|S tage two| Decreased GFR + + +- + |30-59|S tage three| Stage three + + +- + |15-29|S tage four | Stage four + + +- + |<15 (or dialysis)|Stage five | Stage five + + +- + *Each stage assumes the associated GFR level has been in effect for at least three months.Stages 1 to 5, with or without kidney disease, indicate chronic kidney disease. Notes: Determination of stages one and two (with eGFR >59mL/min/1.73 m2) requires estimation of kidney damage for at least three months as defined by structural or functional abnormalities of the kidney, manifested by either: Pathological abnormalities or Markers of kidney damage (including abnormalities in the composition of the blood or urine or abnormalities in imaging tests). Performing Organization Address City/[facility]/Zipcode Phone Number [facility] CLIA: [id number], [address] [place] [address] Lipase Serum (01/10/2019 8:30 AM CDT) LIPASE 444 (H) 0 - 220 U/L [facility] LABORATORY Specimen Blood - VENOUS Performing Organization Address [facility] Phone Number [facility] CLIA: [id number], [address] [place] [address] Troponin I (01/10/2019 8:30 AM CDT) TROPONIN I 0.200 (H) <=0.034 ng/mL [facility] LABORATORY Specimen Blood - VENOUS Narrative Performed At Equal or Less than 0.034 ng/ml---Normal [facility] LABOR[facility] Note: Cardiac troponin begins to rise 3-4 hours after the onset of ischemia. Repeat in 4-6 hours if the sample was drawn within 3-4 hours of the onset of the symptom and found normal. Between 0.035 and 0.120 ng/mL--- Borderline. Questionable myocardial injury or necrosis Note: Serial measurement may be necessary to confirm or exclude the diagnosis of myocardial injury or necrosis; Clinical correlation (symptoms, EKGs, imaging studies, and others) required; Repeat in 4-6 hours if clinically indicated. Equal or Higher than 0.121 ng/mL---Abnormal. Myocardial Injury or Necrosis Likely Biotin has been reported to cause a negative bias, interpret results relative to patient's use of biotin. Performing Organization Address [facility] Cent[facility]ode Phone Number [facility] CLIA: [id number], [address] [place] [address] documented in this encounter Visit Diagnoses Diagnosis Hematemesis with nausea - Primary ESRD (end stage renal disease) on dialysis End stage renal disease CAD, multiple vessel Coronary atherosclerosis of unspecified type of vessel, false pass or graft Essential hypertension Unspecified essential hypertension Thrombosis Embolism and thrombosis of unspecified site Edema, unspecified type Pericardial effusion Unspecified disease of pericardium Coronary artery disease involving false pass coronary artery of false pass heart without angina pectoris GI bleeding Hemorrhage of gastrointestinal tract, unspecified ESRD (end stage renal disease) End stage renal disease Type 2 diabetes mellitus with neurologic complication, without long-term current use of insulin documented in this encounter Administered Medications Medication Order MAR Action Action Date Dose Rate Site amitriptyline (ELAVIL) tablet 10 Given 01/17/2019 8:18 PM CDT 10 mg mg 10 mg, Oral, QHS, First dose on Tue01/10/19 at 2100, Until Discontinued, Routine Given 01/16/2019 8:11 PM CDT 10 mg Given 01/15/2019 8:05 PM CDT 10 mg amLODIPine (NORVASC) tablet 10 mg Given 01/18/2019 8:11 AM CDT 10 mg 10 mg, Oral, DAILY, First dose on Tue01/12/19 at 0900, Until Discontinued, Routine Given 01/17/2019 3:09 PM CDT 10 mg Given 01/16/2019 9:28 AM CDT 10 mg aspirin chewable tablet 81 mg Given 01/18/2019 8:11 AM CDT 81 mg 81 mg, Oral, DAILY, First dose on Tue01/11/19 at 0900, Until Discontinued, Routine Given 01/17/2019 3:09 PM CDT 81 mg Given 01/16/2019 9:28 AM CDT 81 mg atorvastatin (LIPITOR) tablet 80 mg Given 01/17/2019 8:18 PM CDT 80 mg 80 mg, Oral, QHS, First dose on Tue01/12/19 at 2100, Until Discontinued, Routine Given 01/16/2019 8:11 PM CDT 80 mg Given 01/15/2019 8:05 PM CDT 80 mg carvedilol (COREG) tablet 3.125 mg Given 01/18/2019 8:10 AM CDT 3.125 mg 3.125 mg, Oral, BID MEALS, First dose on Tue01/12/19 at 1700, Until Discontinued, Routine Given 01/17/2019 6:35 PM CDT 3.125 mg Given 01/16/2019 4:23 PM CDT 3.125 mg gabapentin (NEURONTIN) capsule 100 mg Given 01/18/2019 8:10 AM CDT 100 mg 100 mg, Oral, TID, First dose on Tue01/17/19 at 0800, Until Discontinued, Routine Given 01/17/2019 8:17 PM CDT 100 mg Given 01/17/2019 3:09 PM CDT 100 mg guaiFENesin 100 mg/5 mL solution 100 mg Given 01/17/2019 8:18 PM CDT 100 mg 100 mg, Oral, Q4H, First dose on Tue01/13/19 at 1200, Until Discontinued, Routine Given 01/16/2019 4:23 PM CDT 100 mg Given 01/16/2019 9:29 AM CDT 100 mg HYDROcodone-acetaminophen (NORCO 5) 5-325 Given 01/18/2019 4:25 AM CDT 1 tablet mg tablet 1 tablet 1 tablet, Oral, Q6HPRN, Starting Tue01/14/19 at 0508, Until Discontinued, Routine, Pain (scale 4-6) Given 01/17/2019 3:30 PM CDT 1 tablet Given 01/17/2019 12:09 AM CDT 1 tablet nitroglycerin (NITROSTAT) sublingual tablet Given 01/17/2019 2:24 AM CDT 0.4 mg 0.4 mg 0.4 mg, Sublingual, Q5MIN PRN, Starting Tue01/10/19 at 1902, Until Discontinued, Routine, Chest pain Given 01/16/2019 5:45 AM CDT 0.4 mg Given 01/16/2019 5:19 AM CDT 0.4 mg pantoprazole (PROTONIX) EC tablet 40 mg Given 01/18/2019 8:11 AM CDT 40 mg 40 mg, Oral, BID, First dose on Tue01/16/19 at 0800, Until Discontinued, Routine Given 01/17/2019 8:18 PM CDT 40 mg Given 01/16/2019 8:11 PM CDT 40 mg Polyethylene Glycol 3350 (MIRALAX) powder 17 g Given 01/17/2019 3:08 PM CDT 17 g 17 g, Oral, DAILY, First dose on Tue01/15/19 at 1530, Until Discontinued, Routine Given 01/16/2019 9:29 AM CDT 17 g Given 01/15/2019 6:31 PM CDT 17 g ranolazine (RANEXA) 12 hr tablet 1,000 mg Given 01/18/2019 8:10 AM CDT 1,000 mg 1,000 mg, Oral, DAILY, First dose on Tue01/11/19 at 0900, Until Discontinued Given 01/17/2019 3:09 PM CDT 1,000 mg Given 01/16/2019 9:28 AM CDT 1,000 mg sennosides (SENOKOT) tablet 8.6 mg Given 01/17/2019 6:35 PM CDT 8.6 mg 8.6 mg, Oral, QDAILYPRN, Starting Tue01/17/19 at 0712, Until Discontinued, Routine, Constipation Sliding Scale Insulin - Aspart Given 01/18/2019 9:16 AM 1 Units Left Upper (NOVOLOG) + Fsbg Testing CDT Arm-SC Subcutaneous, TID MEALS+HS, First dose on Tue01/10/19 at 2100, Until Discontinued, Routine Given 01/17/2019 8:22 PM CDT 1 Units Abdomen-SC Given 01/17/2019 6:39 PM CDT 2 Units Abdomen-SC ticagrelor (BRILINTA) tablet 90 mg Given 01/18/2019 8:10 AM CDT 90 mg 90 mg, Oral, Q12H ABX, First dose on Tue01/12/19 at 2100, Until Discontinued, FABBY Given 01/17/2019 8:17 PM CDT 90 mg Given 01/17/2019 3:21 PM CDT 90 mg Medication Order MAR Action Action Date Dose Rate Site cyclobenzaprine (FLEXERIL) tablet 5 Given 01/11/2019 8:59 PM CDT 5 mg mg 5 mg, Oral, ONCE, 1 dose, Melanie 01/11/19 at 2115, Routine dextrose 10% (D10W) bolus infusion 250 mL Given 01/11/2019 6:40 AM CDT 250 mL 250 mL, IV Infusion, ONCE, Melanie 01/11/19 at 0745, For 1 dose, Dextrose 10% 250 mL bag contains: 10 my=131 mL 20 xf=849 mL 25 kk=991 mL (whole bag) The maximum rate at which dextrose can be infused without producing glycosuria is 0.5 g/kg/hour. BUD: If wrapper is open bag is good for 30 days at room temperature. , epoetin louisa (EPOGEN) injection 4,000 Given 01/17/2019 11:04 AM CDT 4,000 Units Units 4,000 Units, Intravenous, DIALYSIS ONCE - BLAIR 8D, 1 dose, Tue01/17/19 at 0715, Routine, member services representative approving Restricted medication: KEITH LOPEZ epoetin louisa (PROCRIT) injection Given 01/11/2019 5:23 PM CDT 10,000 Units 10,000 Units 10,000 Units, Slow IV Push, DIALYSIS ONCE - BLAIR DSU, 1 dose, Melanie 01/11/19 at 1545, Routine, member services representative approving Restricted medication: KEITH LOPEZ epoetin louisa (PROCRIT) injection Given 01/13/2019 12:08 PM CDT 10,000 Units 10,000 Units 10,000 Units, Slow IV Push, DIALYSIS ONCE - BLAIR DSU, 1 dose, [facility] 01/13/19 at 0915, Routine, member services representative approving Restricted medication: KEITH LOPEZ esomeprazole (NEXIUM) 40 mg in NaCl 0.9% (NS) Given 01/15/2019 8:05 PM CDT 40 mg 100 mL MINI-BAG 40 mg, IV Piggyback, Q12H, First dose on 01/14/19 at 0800, Until Discontinued, 100 mL Given 01/15/2019 8:11 AM CDT 40 mg Given 01/14/2019 9:50 PM CDT 40 mg esomeprazole (NEXIUM) 80 mg in New Bag 01/13/2019 11:59 AM CDT 8 mg/hr 10 mL/hr NaCl 0.9% (NS) 100 mL IV infusion New Bag 01/13/2019 12:49 AM CDT 8 mg/hr 10 mL/hr New Bag 01/12/2019 5:18 PM CDT 8 mg/hr 10 mL/hr esomeprazole (NEXIUM) 80 Dose/Rate Verify 01/13/2019 6:45 PM CDT 8 mg/hr 10 mL/hr mg in NaCl 0.9% (NS) 100 mL IV infusion FENTanyl PF (SUBLIMAZE (PF)) injection 25 Given 01/11/2019 10:19 AM CDT 25 mcg mcg 25 mcg, Slow IV Push, ONCE, 1 dose, [facility] 01/11/19 at 1115, FABBY FENTanyl PF (SUBLIMAZE (PF)) injection 25 Given 01/11/2019 3:59 PM CDT 25 mcg mcg 25 mcg, Slow IV Push, ONCE, 1 dose, Melanie 01/11/19 at 1700, FABBY FENTanyl PF (SUBLIMAZE (PF)) injection 50 Given 01/10/2019 9:18 AM CDT 50 mcg mcg 50 mcg, Slow IV Push, ONCE, 1 dose, 01/10/19 at 0915, Routine FENTanyl PF (SUBLIMAZE (PF)) injection 50 Given 01/10/2019 10:58 AM CDT 50 mcg mcg 50 mcg, Slow IV Push, ONCE, 1 dose, Tue01/10/19 at 1100, Routine FENTanyl PF (SUBLIMAZE (PF)) injection 50 Given 01/10/2019 12:49 PM CDT 50 mcg mcg 50 mcg, Slow IV Push, ONCE, 1 dose, 01/10/19 at 1345, Routine FENTanyl PF (SUBLIMAZE (PF)) injection 50 Given 01/10/2019 3:01 PM CDT 50 mcg mcg 50 mcg, Slow IV Push, ONCE, 1 dose, Tue01/10/19 at 1545, Routine FENTanyl PF (SUBLIMAZE (PF)) injection 50 Given 01/10/2019 7:53 PM CDT 50 mcg mcg 50 mcg, Slow IV Push, ONCE, 1 dose, Tue01/10/19 at 2030, Routine FENTanyl PF (SUBLIMAZE (PF)) injection 50 Given 01/10/2019 11:56 PM CDT 50 mcg mcg 50 mcg, Slow IV Push, ONCE, 1 dose, Melanie 01/11/19 at 0045, Routine furosemide (LASIX) injection 20 mg Given 01/11/2019 1:31 AM CDT 20 mg 20 mg, Slow IV Push, ONCE, 1 dose, Tue01/11/19 at 0230, Routine furosemide (LASIX) injection 40 mg Given 01/15/2019 9:04 PM CDT 40 mg 40 mg, Slow IV Push, ONCE, 1 dose, Tue01/15/19 at 2030, Routine hydralAZINE (APRESOLINE) injection 10 mg Given 01/11/2019 10:00 PM CDT 10 mg 10 mg, Slow IV Push, ONCE, 1 dose, Tue01/11/19 at 2245, Routine, Indication: Hypertensive Emergency HYDROcodone-acetaminophen (NORCO 5) 5-325 Given 01/11/2019 8:16 PM CDT 1 tablet mg tablet 1 tablet 1 tablet, Oral, ONCE, 1 dose, Tue01/11/19 at 1945, Routine HYDROcodone-acetaminophen (NORCO) 10-325 Given 01/12/2019 12:39 AM CDT 1 tablet mg tablet 1 tablet 1 tablet, Oral, ONCE NOW, 1 dose, Tue01/12/19 at 0115, Routine insulin regular human (HUMULIN R) Given 01/11/2019 6:40 AM CDT 10 Units injection 10 Units 10 Units, Slow IV Push, ONCE, 1 dose, Melanie 01/11/19 at 0745, Routine ipratropium-albuterol (DUONEB) 0.5 mg-3 mg(2.5 Given 01/17/2019 1:55 AM CDT 3 mL mg base)/3 mL nebulizer solution 3 mL 3 mL, Inhalation, ONCE, 1 dose, Tue01/17/19 at 0145, Routine ipratropium-albuterol (DUONEB) 0.5 mg-3 mg(2.5 Given 01/17/2019 3:26 AM CDT 3 mL mg base)/3 mL nebulizer solution 3 mL 3 mL, Inhalation, ONCE, 1 dose, Tue01/17/19 at 0415, Routine labetalol (NORMODYNE) injection 10 mg Given 01/11/2019 8:06 PM CDT 10 mg 10 mg, Slow IV Push, ONCE, 1 dose, Tue01/11/19 at 2100, FABBY, Indication: Acute Ischemic or Hemorrhagic Stroke lidocaine (LIDODERM) 5 % (700 mg/patch) Given 01/11/2019 11:19 PM CDT 1 Patch patch 1 Patch 1 Patch, Topical, Administer over 12 Hours, ONCE, 1 dose, Tue01/11/19 at 2330, Routine lidocaine (LIDODERM) 5 % (700 Applied 01/16/2019 3:19 PM CDT 1 Patch Back mg/patch) patch 1 Patch 1 Patch, Topical, Administer over 12 Hours, ONCE, 1 dose, Tue01/16/19 at 1345, Routine metoclopramide HCl (REGLAN) injection 10 mg Given 01/10/2019 11:28 AM CDT 10 mg 10 mg, Slow IV Push, ONCE, 1 dose, Tue01/10/19 at 1230, FABBY metoclopramide HCl (REGLAN) injection 5 mg Given 01/12/2019 9:51 AM CDT 5 mg 5 mg, Slow IV Push, Q8H, First dose on Tue01/11/19 at 2200, Until Discontinued, Routine Given 01/12/2019 2:05 AM CDT 5 mg Given 01/11/2019 6:30 PM CDT 5 mg morpHINE injection 4 mg Given 01/11/2019 1:31 AM CDT 4 mg 4 mg, Slow IV Push, ONCE, 1 dose, Tue01/11/19 at 0230, Routine morpHINE injection 4 mg Given 01/11/2019 7:34 PM CDT 4 mg 4 mg, Slow IV Push, ONCE, 1 dose, Tue01/11/19 at 2015, Routine morpHINE injection 4 mg Given 01/11/2019 10:33 PM CDT 4 mg 4 mg, Slow IV Push, ONCE, 1 dose, Tue01/11/19 at 2345, Routine morpHINE injection 4 mg Given 01/13/2019 9:00 PM CDT 4 mg 4 mg, Slow IV Push, Q4HPRN, Starting Tue01/12/19 at 0413, Until Tue01/14/19 at 0412, Routine, Pain (scale 7-10), breakthrough Given 01/13/2019 4:49 PM CDT 4 mg Given 01/13/2019 7:43 AM CDT 4 mg morpHINE injection 4 mg Given 01/14/2019 4:53 AM CDT 4 mg 4 mg, Slow IV Push, ONCE, 1 dose, Tue01/14/19 at 0630, Routine NaCl 0.9% (NS) bolus infusion New Bag 01/10/2019 8:43 AM CDT 1,000 mL 999 mL/hr 1,000 mL at 999 mL/hr, 1,000 mL, IV Infusion, ONCE, 1 dose, Tue01/10/19 at 0830, FABBY ondansetron (ZOFRAN (PF)) injection 4 mg Given 01/10/2019 8:58 AM CDT 4 mg 4 mg, Slow IV Push, ONCE, 1 dose, Tue01/10/19 at 0945, FABBY ondansetron (ZOFRAN (PF)) injection 4 mg Given 01/10/2019 7:52 PM CDT 4 mg 4 mg, Slow IV Push, ONCE, 1 dose, Tue01/10/19 at 2030, STAT ondansetron (ZOFRAN (PF)) injection 4 mg Given 01/11/2019 7:30 AM CDT 4 mg 4 mg, Slow IV Push, ONCE, 1 dose, Tue01/11/19 at 0830, Routine ondansetron (ZOFRAN (PF)) injection 4 mg Given 01/11/2019 7:46 PM CDT 4 mg 4 mg, Slow IV Push, ONCE, 1 dose, Tue01/11/19 at 2045, Routine ondansetron (ZOFRAN (PF)) injection 4 mg Given 01/12/2019 3:50 AM CDT 4 mg 4 mg, Slow IV Push, ONCE, 1 dose, Tue01/12/19 at 0500, Routine pantoprazole (PROTONIX) 80 Dose/Rate Verify 01/10/2019 6:28 PM CDT 8 mg/hr 50 mL/hr mg in NaCl 0.9% (NS) 500 mL infusion 8 mg/hr (50 mL/hr), IV Piggyback, CONTINUOUS, Starting Tue01/10/19 at 0930, Until Tue01/10/19 at 2047, 500 mL New Bag 01/10/2019 8:59 AM CDT 8 mg/hr 50 mL/hr predniSONE (DELTASONE) tablet 20 mg Given 01/17/2019 6:35 PM CDT 20 mg 20 mg, Oral, ONCE, 1 dose, Tue01/17/19 at 1715, Routine proMETHazine (PHENERGAN) 25 mg in NaCl 0.9% Given 01/11/2019 12:07 PM CDT 25 mg (NS) 50 mL piggyback 25 mg, IV Piggyback, Q6HPRN, Starting Tue01/10/19 at 1921, Until Tue01/11/19 at 1502, 50 mL Given 01/11/2019 4:49 AM CDT 25 mg Given 01/10/2019 11:05 PM CDT 25 mg sodium polystyrene sulfonate (KAYEXALATE) Given 01/11/2019 9:47 AM CDT 15 g suspension 15 g 15 g, Oral, ONCE, 1 dose, Melanie 01/11/19 at 0930, FABBY sulfur hexafluoride microsphr (LUMASON) Given 01/12/2019 10:30 AM CDT 5 mL injection 5 mL 5 mL, Intravenous, ONCE, 1 dose, Tue01/12/19 at 1215, Routine ticagrelor (BRILINTA) tablet 90 mg Given 01/12/2019 8:57 AM CDT 90 mg 90 mg, Oral, Q12H ABX, First dose on Tue01/10/19 at 1930, Until Discontinued, FABBY Given 01/11/2019 8:16 PM CDT 90 mg Given 01/10/2019 8:10 PM CDT 90 mg ticagrelor (BRILINTA) tablet 90 mg Given 01/12/2019 5:31 PM CDT 90 mg 90 mg, Oral, ONCE, 1 dose, Tue01/12/19 at 1745, FABBY documented in this encounter Insurance Payer Benefit Plan Subscriber ID Effective Phone Address Type / Group Dates [facility] [id number] 2017-[employer] [phone] PPO/POS - OUT OF nt [id number] [place] [address] MEDICARE MEDICARE PART xxxxxxxxxxx 2016-[employer] [phone] [address] Medicare A & B nt [id number] [place] [id number] [phone] [id number] (Work) documented as of this encounter
--- OUTSIDE RECORDS SUMMARY | 2019-02-17 23:14 | XMS REPORT | Summary of Care ---
:1965 Author Organization [email or web address] [facility] Address [address] [place] [address] Care Team Providers Name Role Phone Aura Garo [place] Primary Care Provider Reason for Visit Auth/Cert Status Reason Specialty Diagnoses / Referred By Referred To Procedures Contact Contact Emergency [facility] [address] [place] [address] [place] [address] Encounter Details Date Type Department Care Team Description 01/11/2019 Anesthesia GI Endoscopy OR Department Pratik Sarkar CRNA 4.114 Clinical Science [address] [place] [id number] [phone] Allergies Active Allergy Reactions Severity Noted Date Comments Sulfa (Sulfonamide Antibiotics) Unknown - See comments 10/10/2017 documented as of this encounter (statuses as of 01/19/2019) Medications Medication Sig Dispensed Refills Start Date [...] in both eyes ophthalmic solution at bedtime. amLODIPine 10 mg Take 10 mg by [...] as of this encounter (statuses as of 01/19/2019) Active Problems Problem Noted Date Coronary artery disease involving [place] coronary artery of [place] heart 01/11 without angina pectoris ESRD (end stage renal disease) 01/11/2019 Essential hypertension 01/11/2019 Type 2 diabetes mellitus with neurologic complication, without long-term 01/11 current use of insulin GI bleeding 01/10/2019 Hematemesis with nausea 01/10/2019 Overview: Added automatically from request for surgery [id number] documented as of this encounter (statuses as of 01/19/2019) Social History Tobacco Use Types Packs/Day Years Used Date Never Smoker Smokeless Tobacco: Never Used Sex Assigned at Date Recorded Not on file Job Start Date Occupation Industry Not on file Not on file Not on file Travel History Travel Start Travel End No recent travel history available. documented as of this encounter Last Filed Vital Signs Not on filedocumented in this encounter Plan of Treatment Name Type Priority Associated Diagnoses Date/Time Arterial Line OTHER Routine 01/11/2019 2:44 PM CDT Health Maintenance Due Date Last Done Comments HEPATITIS C (HCV) SCREEN 1965 PNEUMOCOCCAL 0-64 YEARS COMBINED 1970 SERIES (1 of 1 - PPSV23) EYE EXAM 1974 LDL-C 1974 FOOT EXAM 1982 DTaP,Tdap,and Td Vaccines (1 - 1983 Tdap) COLONOSCOPY 2014 Zoster Recombinant Vaccine 2014 (SHINGRIX) (1 of 2) INFLUENZA VACCINE 02/11/2019 02/11/2017 HgA1C 07/13/2019 01/10/2019 CREATININE (SERUM) 01/19/2020 01/18/2019, 01/17/2019, 01/16/2019, Additional history exists documented as of this encounter Results Not on filedocumented in this encounter Administered Medications Medication Order MAR Action Action Date Dose Rate Site lactated ringers IV infusion New Bag 01/11/2019 2:27 PM CDT IV Infusion, CONTINUOUS PRN, Starting Melanie 01/11/19 at 1427, Until Melanie 01/11/19 at 1521, Routine, Intra-op lidocaine 4% (XYLOCAINE) 4 % (40 mg/mL) Given 01/11/2019 2:31 PM CDT 5 mL topical solution ONCE INTRA PROCEDURE, Starting Melanie 8 at 1431, Until Melanie 01/11/19 at 1521, Routine, Intra-op propofol injection Given 01/11/2019 2:35 PM CDT 30 mg ONCE INTRA PROCEDURE, Starting Melanie 8 at 1435, Until Melanie 01/11/19 at 1521, Routine, Intra-op propofol injection New Bag 01/11/2019 2:35 PM 80 mcg/kg/min 41.52 mL/hr CONTINUOUS PRN, Starting Melanie CDT 01/11/19 at 1435, Until Melanie 01/11/19 at 1521, Routine, Intra-op remifentanil (ULTIVA) injection Given 01/11/2019 2:34 PM CDT 40 mcg ONCE INTRA PROCEDURE, Starting Melanie 01/11/19 at 1434, Until Melanie 01/11/19 at 1521, Routine, Intra-op documented in this encounter Insurance Payer Benefit Plan Subscriber ID Effective Phone Address Type / Group Dates [facility] [id number] 2017-Prese [phone] PPO/POS - OUT OF nt [id number] [place] [address] MEDICARE MEDICARE PART xxxxxxxxxxx 2016-Prese [phone] [address] Medicare A & B nt [id number] [place] [id number] [phone] [id number] (Work) documented as of this encounter
--- OUTSIDE RECORDS SUMMARY | 2019-02-17 23:14 | XMS REPORT | Summary of Care ---
:1965 Author Organization [facility] - Health Address [address] [place] [address] Care Team Providers Name Role Phone Garo Chavarria Ludivina Primary Care Provider Encounter Details Date Type Department Care Team Description 01/30/2019 Orders Only [facility] Doctor Unassigned, No [address] [facility] [place] [address] [address] [place] [address] Allergies Active Allergy Reactions Severity Noted Date Comments Sulfa (Sulfonamide Antibiotics) Unknown - See comments 10/10/2017 documented as of this encounter (statuses as of 01/30/2019) Medications Medication Sig Dispensed Refills Start Date End Date Status amitriptyline 10 mg Take 10 mg by 0 Active tablet mouth at bedtime. atorvastatin 80 mg Take 80 mg by 0 Active tablet mouth at bedtime. docusate (COLACE) 100 mg Take 100 mg by 0 Active capsule mouth daily. furosemide 40 mg tablet Take 40 mg by 0 Active mouth every morning and evening. insulin lispro (HUMALOG inject under 0 Active KWIKPEN INSULIN SC) the skin. metoclopramide HCl 5 mg Take 5 mg by 0 Active tablet mouth before meals. nitroglycerin Place 0.4 mg 0 Active (NITROSTAT) 0.4 mg under the tongue sublingual tablet every 5 (five) minutes as needed for Chest pain. Ranolazine (RANEXA) Take 1,000 mg by 0 Active 1,000 mg tablet mouth daily. SERTraline 50 mg tablet Take 50 mg by 0 Active mouth daily. sevelamer 800 mg Take 800 mg by 0 Active tabletIndications: take mouth 3 (three) two tabs TID with meals times daily with meals. calcium carbonate 200 mg Take 1 tablet by 0 Active calcium (500 mg) mouth daily. chewable tablet calcium carbonate (TUMS Take 1,000 mg by 0 Active 500 ORAL)Indications: mouth. take with meals TID zolpidem 5 mg tablet Take 5 mg by 0 Active mouth at bedtime as needed for Insomnia. ticagrelor (BRILINTA) 90 Take 90 mg by 0 Active mg tablet mouth 2 (two) times daily. metOLazone 5 mg Take 5 mg by 0 Active tabletIndications: take mouth daily. 30 min before lasix Indications: take 30 min before lasix ferric citrate (AURYXIA) Take 2 tablets 0 Active 210 mg iron Tab by mouth with all meals. travoprost (TRAVATAN Z) Place 1 Drop in 0 Active 0.004 % ophthalmic both eyes at solution bedtime. aspirin 81 mg chewable Take 1 tablet by 0 01/19/2019 Active tablet mouth daily. gabapentin 100 mg Take 1 capsule 0 01/18/2019 Active capsule by mouth 3 (three) times daily. pantoprazole 40 mg EC Take 1 tablet by 0 01/18/2019 Active tablet mouth 2 (two) times daily. carvedilol 3.125 mg Take 1 tablet by 0 01/18/2019 Active tablet mouth 2 (two) times daily with meals. documented as of this encounter (statuses as of 01/30/2019) Active Problems Problem Noted Date Coronary artery disease involving [place] coronary artery of [place] heart 01/11 without angina pectoris ESRD (end stage renal disease) 01/11/2019 Essential hypertension 01/11/2019 Type 2 diabetes mellitus with neurologic complication, without long-term 01/11 current use of insulin GI bleeding 01/10/2019 Hematemesis with nausea 01/10/2019 Overview: Added automatically from request for surgery [id number] documented as of this encounter (statuses as of 01/30/2019) Social History Tobacco Use Types Packs/Day Years Used Date Never Smoker Smokeless Tobacco: Never Used Alcohol Use Drinks/Week oz/Week Comments Never Alcohol [...] filedocumented in this encounter Plan of Treatment Health Maintenance Due Date Last Done Comments HEPATITIS C (HCV) SCREEN 1965 PNEUMOCOCCAL 0-64 YEARS COMBINED 1970 SERIES (1 of 1 - PPSV23) EYE EXAM 1974 LDL-C 1974 FOOT EXAM 1982 DTaP,Tdap,and Td Vaccines (1 - 1983 Tdap) COLONOSCOPY 2014 Zoster Recombinant Vaccine 2014 (SHINGRIX) (1 of 2) INFLUENZA VACCINE (#1) 2019 02/11/2017 HgA1C 07/13/2019 01/10/2019 CREATININE (SERUM) 01/19/2020 01/18/2019, 01/17/2019, 01/16/2019, Additional history exists documented as of this encounter Procedures Procedure Name Priority Date/Time Associated Diagnosis Comments EXTERNAL PROVIDER Routine 01/30/2019 12:01 AM CDT RECORDS documented in this encounter Results Not on filedocumented in this encounter Insurance Payer Benefit Plan Subscriber ID Effective Phone Address Type / Group Dates [facility] BCBS [facility] [id number] 2017-Prese [phone] [address] PPO/POS - OUT OF nt [id number] [place] [address] MEDICARE MEDICARE PART xxxxxxxxxxx 2016-Prese [phone] [address] Medicare A & B nt [id number] [place] [id number] documented as of this encounter
--- OUTSIDE RECORDS SUMMARY | 2019-02-17 23:14 | XMS REPORT | Summary of Care ---
:1965 Author Organization [facility] Address [address] [place] [address] Care Team Providers Name Role Phone Aura Garo [place] Primary Care Provider Reason for Visit Reason Comments Results RUE US no DVT and patent fistula Encounter Details Date Type Department Care Team Description 01/18/2019 Telephone Medicine (BLAIR 10A) Abisai Lees, DO Results (RUE US no DVT [address] and patent fistula) [place] [address] [place], [place] [phone] Allergies Active Allergy Reactions Severity Noted Date [...] Problem Noted Date Coronary artery disease involving [place] coronary artery of [place] heart 01/11 without angina pectoris ESRD (end stage renal disease) 01/11/2019 Essential hypertension 01/11/2019 Type 2 diabetes mellitus with neurologic complication, without long-term 01/11 current use of insulin GI bleeding 01/10/2019 Hematemesis with nausea 01/10/2019 Overview: Added automatically from request for surgery [id number] documented as of this encounter (statuses as [...] Effective Phone Address Type / Group Dates [facility] [id number] 2017-Prese [phone] [address] PPO/POS - OUT OF nt [id number] [place] [address] MEDICARE MEDICARE PART xxxxxxxxxxx 2016-Prese [phone] [address] Medicare A & B nt [id number] [place] [address] documented as of this encounter
--- OUTSIDE RECORDS SUMMARY | 2019-02-17 23:15 | XMS REPORT | Summary of Care ---
:[address] [facility] Address [address] [place] [address] Care Team Providers Name Role Phone Aura Garo [place] Primary Care Provider Reason for Visit Auth/Cert Status Reason Specialty Diagnoses / Referred By Referred To Procedures Contact Contact Emergency Medicine [facility] Emergency [facility] [address] [place] [address] [place] [address] Encounter Details Date Type Department Care Team Description 01/11/2019 Anesthesia GI Endoscopy OR Department Pratik Sarkar CRNA 4.114 Clinical Science [address] [place] [phone] Allergies Active Allergy Reactions Severity Noted Date Comments Sulfa (Sulfonamide Antibiotics) Unknown - See comments 10/10/2017 documented as of this encounter (statuses as of 02/01/2019) Medications Medication Sig Dispensed Refills Start Date [...] as of this encounter (statuses as of 02/01/2019) Active Problems Problem Noted Date Coronary artery disease involving [place] coronary artery of [place] heart 01/11 without angina pectoris ESRD (end stage renal disease) 01/11/2019 Essential hypertension 01/11/2019 Type 2 diabetes mellitus with neurologic complication, without long-term 01/11 current use of insulin GI bleeding 01/10/2019 Hematemesis with nausea 01/10/2019 Overview: Added automatically from request for surgery [id number] documented as of this encounter (statuses as of 02/01/2019) Social History Tobacco Use Types Packs/Day Years [...] CDT IV Infusion, CONTINUOUS PRN, Starting Melanie 8 at 1427, Until Melanie 01/11/19 at 1521, [...] Melanie CDT 01/11/19 at 1435, Until Melanie 8 at 1521, Routine, Intra-op remifentanil (ULTIVA) injection Given 01/11/2019 2:34 PM CDT 40 mcg ONCE INTRA PROCEDURE, Starting Melanie 01/11/19 at 1434, Until Melanie 01/11/19 at 1521, Routine, Intra-op documented in this encounter Insurance Payer Benefit Plan Subscriber ID Effective Phone Address Type / Group Dates [facility] [id number] 2017-Prese [phone] [address] PPO/POS - OUT OF nt [id number] [place] [address] MEDICARE MEDICARE PART xxxxxxxxxxx 2016-Prese [phone] [address] Medicare A & B nt [id number] [place] [id number] [phone] (Work) documented as of this encounter
--- OUTSIDE RECORDS SUMMARY | 2019-02-17 23:15 | XMS REPORT | Summary of Care ---
:1965 Author Organization [facility] - Health Address [address] [place] [address] Care Team Providers Name Role Phone Garo Chavarria Ludivina Primary Care Provider Encounter Details Date Type Department Care Team Description 02/09/2019 Orders Only [facility] Doctor Unassigned, No 301 [facility] [place] [address] [address] [place] [address] Allergies Active Allergy Reactions Severity Noted Date Comments Sulfa (Sulfonamide Antibiotics) Unknown - See comments 10/10/2017 documented as of this encounter (statuses as of 02/09/2019) Medications Medication Sig Dispensed Refills Start Date [...] as of this encounter (statuses as of 02/09/2019) Active Problems Problem Noted Date Coronary artery disease involving [place] coronary artery of [place] heart 01/11 without angina pectoris ESRD (end stage renal disease) 01/11/2019 Essential hypertension 01/11/2019 Type 2 diabetes mellitus with neurologic complication, without long-term 01/11 current use of insulin GI bleeding 01/10/2019 Hematemesis with nausea 01/10/2019 Overview: Added automatically from request for surgery [id number] documented as of this encounter (statuses as of 02/09/2019) Social History Tobacco Use Types Packs/Day Years [...] Date/Time Associated Diagnosis Comments 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 Medicare A & B nt 82 [id number] [place] [address] documented as of this encounter
[2019-02-18 00:14] LABS: Absolute Lymphocytes (CBC) 0.4 K/uL (0.7-4.9); Basophils % 0.8 % (0-1.3); Hematocrit 29.1 % (39.6-49.0); MPV 8.1 fL (7.6-11.3); RBC Red Blood Cell Count 2.92 M/uL (4.33-5.43)
[2019-02-18 00:33] LABS: Potassium 5.7 mmol/L (3.5-5.1)
[2019-02-18] MEDS ORDERED: BUMETANIDE 1 MG/4 ML VIAL ONE (01:54)
[2019-02-18] MEDS ORDERED: HYDROCODONE/APAP 5/325 MG TAB ONE (02:14)
--- NOTE | 2019-02-18 02:14 | ER ---
Nurse's Notes [facility] Name: Yusuf Bah Age: 53 yrs Sex: Male : 1965 Arrival Date: 02/17/2019 Time: 23:09 Bed 6 Private MD: Garo Chavarria Diagnosis: Edema, unspecified;End stage renal disease Presentation: 02/17 23:20 Presenting complaint: Patient states: Abdomen and bilateral leg swelling that he lp1 noticed this morning; Denies any pain, shortness of breath. Transition of care: patient was not received from another setting of care. Onset of symptoms was February 17, 2019. Risk Assessment: Do you want to hurt yourself or someone else? Patient reports no desire to harm self or others. Initial Sepsis Screen: Does the patient meet any 2 criteria? No. Patient's initial sepsis screen is negative. Does the patient have a suspected source of infection? No. Patient's initial sepsis screen is negative. Care prior to arrival: None. 23:20 Method Of Arrival: Wheelchair lp1 23:20 Acuity: ALVERTO 3 lp1 Historical: - Allergies: 23:23 Sulfa (Sulfonamide Antibiotics); lp1 23:27 Sulfa (Sulfonamide Antibiotics); ak1 - Home Meds: 23:27 amlodipine 10 mg tab 1 tab once daily [Active]; bumetanide 2 mg Oral tab 1 tab once ak1 daily [Active]; Lantus 100 unit/mL Sub-Q soln [Active]; Renvela 800 mg oral tab 1 tab 3 times per day [Active]; Tylenol 325 mg oral tab 1 tab every 4 hours [Active]; Termo 7.5-325 mg Oral tab 1 tab twice a day [Active]; Lidoderm 5 % Topical ptmd 1 patch once daily [Active]; Preparation H Rectal [Active]; polyethylene glycol 3350 17 gram oral pwpk 1 packet once daily [Active]; metoprolol tartrate 100 mg Oral tab 1 tab once daily [Active]; zolpidem 5 mg Oral tab [Active]; aspirin 81 mg Oral chew 1 tab once daily [Active]; atorvastatin 40 mg oral tab 1 tab once daily [Active]; Plavix 75 mg Oral tab 1 tab once daily [Active]; gabapentin 100 mg oral cap 1 caps every 4 hours [Active]; pantoprazole 40 mg oral TbEC 1 tab 2 times per day [Active]; ranolazine oral 500mg oral 1 tab 2 times per day [Active]; sacubitril-valsartan oral 24mg-26mg oral 1 tab 2 times per day [Active]; sertraline 50 mg Oral tab 1 tab once daily [Active]; furosemide 40 mg Oral tab 1 tab 2 times per day [Active]; - PMHx: 23:23 Angina; CAD; Depression; Diabetes - IDDM; Dialysis; GERD; Glaucoma; High Cholesterol; lp1 Hypertension; Renal Disease; Small vessle disease of the heart; - PSHx: 23:23 Heart stents; INOCENTE fistula; Cholecystectomy; Appendectomy; shoulder surgery; lp1 - Immunization history:: Adult Immunizations up to date, Adult Immunizations up to date. - Social history:: Smoking status: Patient/guardian denies using tobacco. - Ebola Screening: : No symptoms or risks identified at this time. Screenin/08 00:36 Abuse screen: Denies threats or abuse. Denies injuries from another. Nutritional ak1 screening: No deficits noted. Tuberculosis screening: No symptoms or risk factors identified. Fall Risk None identified. Assessment: 00:13 General: Appears in no apparent distress. Behavior is calm, cooperative. Pain: Denies ak1 pain. Neuro: Level of Consciousness is awake, alert, obeys commands, Oriented to person, place, time, situation, Moves all extremities. Weakness Gait is shuffling, pt released from rehab facility today. Cardiovascular: No deficits noted. Respiratory: No deficits noted. GI: Abdomen is round Bowel sounds present X 4 quads. Abd is soft X 4 quads. : No signs and/or symptoms were reported regarding the genitourinary system. EENT: No signs and/or symptoms were reported regarding the EENT system. Derm: No signs and/or symptoms reported regarding the dermatologic system. Musculoskeletal: No signs and/or symptoms reported regarding the musculoskeletal system. 01:11 Reassessment: pt and family informed of wait for pt's physician to call Dr. Ku back. ak1 02:08 Reassessment: Pt given Bumex IV per order. Pt is complaining of severe back pain and fc has not taken his Termo since yesterday am. Is requesting pain medication. Discussed with Dr Ku. Pt to get Termo now. Vital Signs: 02/17 23:21 BP 129 / 62; Pulse 73; Resp 18; Temp 98(O); Pulse Ox 100% on R/A; Weight 90.72 kg; lp1 Height 6 ft. 3 in. (190.50 cm); Pain 0/10; 02/18 00:36 BP 150 / 86; Pulse 71; Resp 18; Temp 98.1; Pulse Ox 100% on R/A; ak1 02:32 BP 134 / 70; Pulse 67; Resp 16; Pulse Ox 100% on R/A; ak1 02/17 23:21 Body Mass Index 25.00 (90.72 kg, 190.50 cm) lp1 ED Course: 02/17 23:09 Patient arrived in ED. mr 23:09 Garo Chavarria MD is Private Physician. mr 23:09 Oscar Ku MD is Attending Physician. gs 23:21 Triage completed. lp1 23:21 Arm band placed on left wrist. lp1 23:58 Initial lab(s) drawn, by ar, sent to lab. Inserted saline lock: 20 gauge in left lt1 antecubital area, using aseptic technique. 23:59 Basic Metabolic Panel Sent. lt1 23:59 CBC with Diff Sent. lt1 02/18 00:13 Marissa Hartman, RN is Primary Nurse. ak1 00:35 Notified ED physician of a critical lab result(s). K+ 5.7, creat 5.87. ak1 00:36 Patient has correct armband on for positive identification. Bed in low position. Call ak1 light in reach. Side rails up X 1. Adult w/ patient. Pulse ox on. NIBP on. 00:50 EKG done, by ED staff, reviewed by Oscar Ku MD. ag4 02:32 No provider procedures requiring assistance completed. IV discontinued, intact, ak1 bleeding controlled, No redness/swelling at site. Pressure dressing applied. Administered Medications: 02:05 Drug: Bumetanide 1 mg Route: IVP; Site: left antecubital; fc 02:34 Follow up: Response: No adverse reaction ak1 02:15 Drug: Termo 5 mg-325 mg 1 tabs Route: PO; fc 02:34 Follow up: Response: No adverse reaction; Medication administered at discharge.; RASS: ak1 Alert and Calm (0) 02:22 Drug: Kayexalate 15 grams Route: PO; 02:34 Follow up: Response: No adverse reaction ak1 Outcome: 02:12 Discharge ordered by MD. de la rosa 02:45 Patient left the ED. ak1 Signatures: Sam Katelyn Calix, Venecia, RN RN fc Natalia Bhardwaj RN RN lp1 Marissa Hartman RN RN ak1 Oscar Ku MD MD Mateusz Vilchis ag4 Yael Mccullough 1
--- NOTE | 2019-02-18 02:14 | EDPHYS ---
Physician Documentation [facility] Name: Yusuf Bah Age: 53 yrs Sex: Male : 1965 Arrival Date: 02/17/2019 Time: 23:09 Bed 6 Private MD: Garo Chavarria ED Physician Oscar Ku HPI: 02/18 01:43 This 53 yrs old Male presents to ER via Wheelchair with complaints of gs Abdominal Swelling, Leg Swelling. 01:43 recent release from rehab noted increased edema to abdomen and lower extremities, on gs dialysis no SOB or chest pain. Onset: The symptoms/episode began/occurred gradually. Severity of symptoms: At their worst the symptoms were moderate in the emergency department the symptoms are unchanged. The patient has experienced similar episodes in the past, a few times. Historical: - Allergies: 02/17 23:23 Sulfa (Sulfonamide Antibiotics); lp1 23:27 Sulfa (Sulfonamide Antibiotics); ak1 - Home Meds: 23:27 amlodipine 10 mg tab 1 tab once daily [Active]; bumetanide 2 mg Oral tab 1 tab once ak1 daily [Active]; Lantus 100 unit/mL Sub-Q soln [Active]; Renvela 800 mg oral tab 1 tab 3 times per day [Active]; Tylenol 325 mg oral tab 1 tab every 4 hours [Active]; [place] 7.5-325 mg Oral tab 1 tab twice a day [Active]; Lidoderm 5 % Topical ptmd 1 patch once daily [Active]; Preparation H Rectal [Active]; polyethylene glycol 3350 17 gram oral pwpk 1 packet once daily [Active]; metoprolol tartrate 100 mg Oral tab 1 tab once daily [Active]; zolpidem 5 mg Oral tab [Active]; aspirin 81 mg Oral chew 1 tab once daily [Active]; atorvastatin 40 mg oral tab 1 tab once daily [Active]; Plavix 75 mg Oral tab 1 tab once daily [Active]; gabapentin 100 mg oral cap 1 caps every 4 hours [Active]; pantoprazole 40 mg oral TbEC 1 tab 2 times per day [Active]; ranolazine oral 500mg oral 1 tab 2 times per day [Active]; sacubitril-valsartan oral 24mg-26mg oral 1 tab 2 times per day [Active]; sertraline 50 mg Oral tab 1 tab once daily [Active]; furosemide 40 mg Oral tab 1 tab 2 times per day [Active]; - PMHx: 23:23 Angina; CAD; Depression; Diabetes - IDDM; Dialysis; GERD; Glaucoma; High Cholesterol; lp1 Hypertension; Renal Disease; Small vessle disease of the heart; - PSHx: 23:23 Heart stents; INOCENTE fistula; Cholecystectomy; Appendectomy; shoulder surgery; lp1 - Immunization history:: Adult Immunizations up to date, Adult Immunizations up to date. - Social history:: Smoking status: Patient/guardian denies using tobacco. - Ebola Screening: : No symptoms or risks identified at this time. ROS: 02/18 01:43 All other systems are negative. gs Exam: 01:43 Head/Face: Normocephalic, atraumatic. ENT: Nares patent. No nasal discharge, no gs septal abnormalities noted. Tympanic membranes are normal and external auditory canals are clear. Oropharynx with no redness, swelling, or masses, exudates, or evidence of obstruction, uvula midline. Mucous membranes moist. Cardiovascular: Regular rate and rhythm with a normal S1 and S2. No gallops, murmurs, or rubs. Normal PMI, no JVD. No pulse deficits. Respiratory: Lungs have equal breath sounds bilaterally, clear to auscultation and percussion. No rales, rhonchi or wheezes noted. No increased work of breathing, no retractions or nasal flaring. 01:43 Back: No spinal tenderness. No costovertebral tenderness. Full range of motion. Skin: Warm, dry with normal turgor. Normal color with no rashes, no lesions, and no evidence of cellulitis. 01:43 Constitutional: The patient appears alert, awake. 01:43 Abdomen/GI: Inspection: distension, that is mild. 01:43 Musculoskeletal/extremity: Perfusion: the patient is normally perfused throughout, Edema, 2+ to the left upper thigh, left lower thigh, right upper thigh and right lower thigh is noted. Vital Signs: 02/17 23:21 BP 129 / 62; Pulse 73; Resp 18; Temp 98(O); Pulse Ox 100% on R/A; Weight 90.72 kg; lp1 Height 6 ft. 3 in. (190.50 cm); Pain 0/10; 02/18 00:36 BP 150 / 86; Pulse 71; Resp 18; Temp 98.1; Pulse Ox 100% on R/A; ak1 02:32 BP 134 / 70; Pulse 67; Resp 16; Pulse Ox 100% on R/A; ak1 02/17 23:21 Body Mass Index 25.00 (90.72 kg, 190.50 cm) lp1 MDM: 02/17 23:42 Patient medically screened. 02/18 01:43 Data reviewed: vital signs, nurses notes. ED course: pt hasn't started new diuretic, gs still makes urine responsive to diuretics, K not over 5.7, no ekg changes, no SOB have put call into dr tavarez, pt wants to go home, can come tomorrow for repeat potassium,. 02:11 ED course: spoke with dr jacqueline galindo on kayexelate qod, says pt needs to start meds as gs rx. 02/17 23:42 Order name: CBC with Diff gs 02/17 23:42 Order name: Basic Metabolic Panel; Complete Time: 00:33 gs 02/18 00:34 Order name: EKG - Nurse/Tech; Complete Time: 00:48 gs Administered Medications: 02:05 Drug: Bumetanide 1 mg Route: IVP; Site: left antecubital; fc 02:34 Follow up: Response: No adverse reaction ak1 02:15 Drug: [place] 5 mg-325 mg 1 tabs Route: PO; fc 02:34 Follow up: Response: No adverse reaction; Medication administered at discharge.; RASS: ak1 Alert and Calm (0) 02:22 Drug: Kayexalate 15 grams Route: PO; fc 02:34 Follow up: Response: No adverse reaction ak1 Disposition: 02/18/19 02:12 Discharged to Home. Impression: Edema, unspecified, End stage renal disease. - Condition is Stable. - Discharge Instructions: Edema, Dialysis. - Prescriptions for Kayexalate Oral powder - take 20 milliliter by ORAL route once daily 15g per 60ml QOD dispense 500ml; 500 milliliter. - Medication Reconciliation Form, Thank You Letter, Antibiotic Education, Prescription Opioid Use form. - Follow up: Private Physician; When: 2 - 3 days; Reason: Re-evaluation by your physician. Signatures: Dispatcher [employer] EDMS Venecia Calix RN RN Natalia Bhardwaj RN RN lp1 Marissa Hartman RN RN ak1 Oscar Ku MD MD gs Corrections: (The following items were deleted from the chart) 02:45 02:12 02/18/2019 02:12 Discharged to Home. Impression: Edema, unspecified; End stage ak1 renal disease. Condition is Stable. Forms are Medication Reconciliation Form, Thank You Letter, Antibiotic Education, Prescription Opioid Use. Follow up: Private Physician; When: 2 - 3 days; Reason: Re-evaluation by your physician. gs
[2019-02-18] MEDS ORDERED: SOD POLYSTYREN SUL 15 GM/60 ML UCUP ONE (02:18)
[2019-02-18 03:16] LABS: Anisocytosis 1+; Blood Morphology Comment NOTED (NOT SEEN); Platelet Estimate ADEQ; Urine White Blood Cell Casts OK
[2019-02-18 08:27] VITALS: O2SAT 100
[2019-02-18 08:29] VITALS: TEMP 98.1
[2019-02-18 08:31] VITALS: BP 134/70
--- NOTE | 2019-02-19 16:58 | EKG ---
Test Date: 2019-02-18 Test Time: 00:44:51 Wad Impregnator: A3 MEASUREMENT RESULTS: Intervals: Rate: 72 [place]: 170 QRSD: 98 QT: 436 QTc: 477 [place]: P: 56 OH: 170 QRS: -31 T: 141 INTERPRETIVE STATEMENTS: Normal sinus rhythm Left axis deviation T wave abnormality, consider lateral ischemia Abnormal ECG Compared to ECG 12/23/2018 21:54:33 Left-axis deviation now present T-wave abnormality now present Myocardial infarct finding no longer present ST (T wave) deviation no longer present Possible ischemia still present Electronically Signed On 02-19-19 16:55:34 CDT by Aryan Love
== END 2019-02-18 02:45 | disposition home or self-care (01) ==
LOC: ER 23:05
DX: N18.6 End stage renal disease (principal); E11.22 Type 2 diabetes mellitus with diabetic chronic kidney disease; I13.11 Hypertensive heart and chronic kidney disease without heart failure, with stage 5 chronic kidney disease, or end stage renal disease; E78.00 Pure hypercholesterolemia, unspecified; Z79.4 Long term (current) use of insulin; Z79.01 Long term (current) use of anticoagulants; Z88.2 Allergy status to sulfonamides; Z99.2 Dependence on renal dialysis
CPT/HCPCS: 36415; 80048; 85025; 93005; 96374; 99284

== ENCOUNTER 2019-07-04 19:21 | Emergency (ER) | payer BC, OTHER ==
--- OUTSIDE RECORDS SUMMARY | 2019-07-04 19:25 | XMS REPORT ---
:1965 [facility] Address [address] [place] [address] [address] [place] [address] Care Team Providers Name Role Phone DWIGHT MCHUGH Unavailable Unavailable Problems This patient has no known problems. Allergies, Adverse Reactions, Alerts This patient has no known allergies or adverse reactions. Medications This patient has no known medications. Encounters Start End Encounter Admission Attending Care Care Encounter Date/Time Date/Time Type Type Clinicians Facility Department ID 2019-01-31 Outpatient [facility] [id number] 08:52:18 2018-12-24 Inpatient U [facility] [id number] 05:31:00 2018-12-20 Outpatient [facility] [id number] 10:46:33 2018-12-19 Inpatient U [facility] [id number] 19:45:00 2019-01-18 2019-01-18 Inpatient E [facility] [id number] 17:00:00 14:27:00 2018-12-19 2018-12-19 Outpatient [facility] [id number] 16:05:00 16:05:00 2018-10-31 2018-10-31 Outpatient [facility] [id number] 10:40:00 10:40:00 Results Test Description Test Time Test Comments Text Results Atomic Results Result Comments POCT-GLUCOSE METER 2017-06-15 17:36:00 Test Item Value Reference Range Comments POC-GLUCOSE METER (BEAKER) (test 243 mg/dL 70-110 TESTED AT [facility] [address] [facility] wxzo=2547) [facility] [address] BASIC METABOLIC [id number] 13:51:00 Test Item Value Reference Range Comments SODIUM (BEAKER) (test 139 meq/L 135-148 pnhu=297) POTASSIUM (BEAKER) (test 3.4 meq/L 3.6-5.5 ehnk=147) CHLORIDE (BEAKER) (test 101 meq/L 98-106 kmcp=034) CO2 (BEAKER) (test 29 meq/L 20-29 aiia=801) BLOOD UREA NITROGEN 11 mg/dL 10-26 (BEAKER) (test yvoj=410) CREATININE (BEAKER) (test 2.10 mg/dL 0.50-1.20 tvmm=793) GLUCOSE RANDOM (BEAKER) 157 mg/dL 70-110 (test spvf=817) CALCIUM (BEAKER) (test 8.6 mg/dL 8.5-10.5 oxao=231) EGFR (BEAKER) (test 33 mL/min/1.73 sq m ESTIMATED GFR IS NOT biab=1428) ACCURATE CREATININE CLEARANCE IN PREDICTING GLOMERULAR FILTRATION RATE. ESTIMATED GFR IS NOT APPLICABLE FOR DIALYSIS PATIENTS. [id number] 13:44:00 Test Item Value Reference Range Comments MAGNESIUM (BEAKER) (test vjlo=159) 1.9 mg/dL 1.5-3.0 CBC W/PLT COUNT & AUTO [id number] 13:34:00 Test Item Value Reference Range Comments WHITE BLOOD CELL COUNT (BEAKER) (test qquh=365) 6.8 K/ L 4.0-10.0 RED BLOOD CELL COUNT (BEAKER) (test fhqa=954) 2.92 M/ L 4.20-5.80 HEMOGLOBIN (BEAKER) (test smns=554) 8.4 GM/DL 13.0-16.8 HEMATOCRIT (BEAKER) (test xyzo=555) 25.5 % 40.0-50.0 MEAN CORPUSCULAR VOLUME (BEAKER) (test abdu=884) 87.4 fL 82.0-98.0 MEAN CORPUSCULAR HEMOGLOBIN (BEAKER) (test 28.7 pg 27.0-33.0 cceq=774) MEAN CORPUSCULAR HEMOGLOBIN CONC (BEAKER) (test 32.8 GM/DL 32.0-36.0 tozh=105) RED CELL DISTRIBUTION WIDTH (BEAKER) (test 14.7 % 10.3-14.2 snko=945) PLATELET COUNT (BEAKER) (test yxfk=109) 299 K/CU MM 150-430 MEAN PLATELET VOLUME (BEAKER) (test qlcw=746) 6.9 fL 6.5-10.5 NUCLEATED RED BLOOD CELLS (BEAKER) (test 0 /100 WBC 0-0 okxx=651) NEUTROPHILS RELATIVE PERCENT (BEAKER) (test 65 % ffyb=835) LYMPHOCYTES RELATIVE PERCENT (BEAKER) (test 18 % vsdy=932) MONOCYTES RELATIVE PERCENT (BEAKER) (test 14 % khhl=427) EOSINOPHILS RELATIVE PERCENT (BEAKER) (test 3 % kpqg=568) BASOPHILS RELATIVE PERCENT (BEAKER) (test 1 % yalb=894) NEUTROPHILS ABSOLUTE COUNT (BEAKER) (test 4.40 K/ L 1.80-8.00 kghb=447) LYMPHOCYTES ABSOLUTE COUNT (BEAKER) (test 1.20 K/ L 1.48-4.50 dsbg=709) MONOCYTES ABSOLUTE COUNT (BEAKER) (test 1.00 K/ L 0.00-1.30 uvnc=740) EOSINOPHILS ABSOLUTE COUNT (BEAKER) (test 0.20 K/ L 0.00-0.50 pzte=795) BASOPHILS ABSOLUTE COUNT (BEAKER) (test 0.00 K/ L 0.00-0.20 mhwe=054) POCT-GLUCOSE [id number] 11:28:00 Test Item Value Reference Range Comments POC-GLUCOSE METER (BEAKER) 147 mg/dL 70-110 TESTED AT [address] (test qqxc=7364) [facility] [address] POCT-GLUCOSE [id number] 06:04:00 Test Item Value Reference Range Comments POC-GLUCOSE METER (BEAKER) 137 mg/dL 70-110 TESTED AT [address] (test ydej=7791) [facility] [address] POCT-GLUCOSE [id number] 21:01:00 Test Item Value Reference Range Comments POC-GLUCOSE METER (BEAKER) 138 mg/dL 70-110 TESTED AT [address] (test fvpr=9485) [facility] [address] POCT-GLUCOSE [id number] 16:06:00 Test Item Value Reference Range Comments POC-GLUCOSE METER (BEAKER) 167 mg/dL 70-110 TESTED AT [address] (test dezm=2736) [facility] [address] POCT-GLUCOSE [id number] 12:49:00 Test Item Value Reference Range Comments POC-GLUCOSE METER (BEAKER) 144 mg/dL 70-110 TESTED AT [address] (test eibs=1306) [place] [address] [id number] 10:27:00 Test Item Value Reference Range Comments POC-CREATININE (BEAKER) 3.6 mg/dL 0.6-1.3 TESTED AT [address] (test rdxm=0707) [place] [address] POC-EGFR (BEAKER) (test 18 mL/min/1.73M2 gsdu=1602) [id number] 10:27:00 Test Item Value Reference Range Comments POC-SODIUM (BEAKER) (test 138 meq/L 135-148 TESTED AT [address] tzvj=9218) [place] [address] [id number] 10:27:00 Test Item Value Reference Range Comments POC-POTASSIUM (BEAKER) 3.6 meq/L 3.6-5.5 TESTED AT [address] (test ighl=9616) [place] [address] [id number] 10:27:00 Test Item Value Reference Range Comments POC-BUN (BEAKER) (test 20 mg/dL 7-21 TESTED AT [address] qgmi=2069) [place] [address] [id number] 10:27:00 Test Item Value Reference Range Comments POC-CHLORIDE (BEAKER) (test 97 meq/L 98-107 TESTED AT [address] orem=8160) [place] [address] [id number] 10:27:00 Test Item Value Reference Range Comments POC-GLUCOSE (BEAKER) (test 123 mg/dL 70-110 TESTED AT [address] ulyt=8516) [place] [address] [id number] 10:27:00 Test Item Value Reference Range Comments POC-HEMATOCRIT (BEAKER) (test 24 % 40-50 TESTED AT [address] kzft=2117) [place] [address] [id number] 10:27:00 Test Item Value Reference Range Comments POC-HEMOGLOBIN (BEAKER) 8.2 g/dL 13.0-16.8 TESTED AT [address] (test frri=6925) [facility] [address] [id number] 10:27:00 Test Item Value Reference Range Comments POC-TCO2 (BEAKER) (test 30 meq/L 22-29 TESTED AT [address] lvtc=5958) [facility] [address] POCT-GLUCOSE [id number] 06:08:00 Test Item Value Reference Range Comments POC-GLUCOSE METER (BEAKER) 163 mg/dL 70-110 TESTED AT [address] (test epzi=9486) [facility] [address] POCT-GLUCOSE [id number] 21:07:00 Test Item Value Reference Range Comments POC-GLUCOSE METER (BEAKER) 132 mg/dL 70-110 TESTED AT [address] (test sutx=5740) [facility] [address] POCT-GLUCOSE [id number] 12:58:00 Test Item Value Reference Range Comments POC-GLUCOSE METER (BEAKER) 178 mg/dL 70-110 TESTED AT [address] (test pbmk=5670) [facility] [address] POCT-GLUCOSE [id number] 05:29:00 Test Item Value Reference Range Comments POC-GLUCOSE METER (BEAKER) 171 mg/dL 70-110 TESTED AT [address] (test pyph=5156) [facility] [address] POCT-GLUCOSE [id number] 22:03:00 Test Item Value Reference Range Comments POC-GLUCOSE METER (BEAKER) 249 mg/dL 70-110 TESTED AT [address] (test esif=6129) [facility] [address] POCT-GLUCOSE [id number] 16:45:00 Test Item Value Reference Range Comments POC-GLUCOSE METER (BEAKER) 213 mg/dL 70-110 TESTED AT [address] (test ylwt=4522) [facility] [address] [id number] 16:43:00 Test Item Value Reference Range Comments THYROID STIMULATING HORMONE (BEAKER) (test 2.09 uIU/mL 0.35-5.50 mlxb=470) COMPREHENSIVE METABOLIC [id number] 16:24:00 Test Item Value Reference Range Comments TOTAL PROTEIN (BEAKER) 7.2 gm/dL 6.0-8.5 (test ikqc=305) ALBUMIN (BEAKER) (test 3.5 g/dL 3.5-5.0 nrpk=5120) ALKALINE PHOSPHATASE 67 U/L 30-115 (BEAKER) (test hpsj=383) BILIRUBIN TOTAL (BEAKER) 0.3 mg/dL 0.1-1.2 (test ekum=894) SODIUM (BEAKER) (test 136 meq/L 135-148 thhd=266) POTASSIUM (BEAKER) (test 4.1 meq/L 3.6-5.5 msry=238) CHLORIDE (BEAKER) (test 98 meq/L 98-106 eoll=842) CO2 (BEAKER) (test 26 meq/L 20-29 cepd=948) BLOOD UREA NITROGEN 32 mg/dL 10-26 (BEAKER) (test bdja=458) CREATININE (BEAKER) (test 4.40 mg/dL 0.50-1.20 ajsh=646) GLUCOSE RANDOM (BEAKER) 212 mg/dL 70-110 (test gzou=290) CALCIUM (BEAKER) (test 9.0 mg/dL 8.5-10.5 ilak=827) AST (SGOT) (BEAKER) (test 14 U/L 5-40 ilmu=927) ALT (SGPT) (BEAKER) (test 4 U/L 5-50 dtqf=468) EGFR (BEAKER) (test 14 mL/min/1.73 sq m ESTIMATED GFR IS NOT jgbh=8074) ACCURATE CREATININE CLEARANCE IN PREDICTING GLOMERULAR FILTRATION RATE. ESTIMATED GFR IS NOT APPLICABLE FOR DIALYSIS PATIENTS. CBC W/PLT COUNT & AUTO [id number] 16:02:00 Test Item Value Reference Range Comments WHITE BLOOD CELL COUNT (BEAKER) (test vyoe=817) 6.9 K/ L 4.0-10.0 RED BLOOD CELL COUNT (BEAKER) (test nuig=392) 2.95 M/ L 4.20-5.80 HEMOGLOBIN (BEAKER) (test jdaa=078) 8.6 GM/DL 13.0-16.8 HEMATOCRIT (BEAKER) (test zmos=943) 25.9 % 40.0-50.0 MEAN CORPUSCULAR VOLUME (BEAKER) (test qxch=503) 87.9 fL 82.0-98.0 MEAN CORPUSCULAR HEMOGLOBIN (BEAKER) (test 29.0 pg 27.0-33.0 ppce=644) MEAN CORPUSCULAR HEMOGLOBIN CONC (BEAKER) (test 33.0 GM/DL 32.0-36.0 epiz=470) RED CELL DISTRIBUTION WIDTH (BEAKER) (test 15.0 % 10.3-14.2 kzrg=812) PLATELET COUNT (BEAKER) (test uatb=233) 330 K/CU MM 150-430 MEAN PLATELET VOLUME (BEAKER) (test nmij=394) 7.1 fL 6.5-10.5 NUCLEATED RED BLOOD CELLS (BEAKER) (test 0 /100 WBC 0-0 yuuh=042) NEUTROPHILS RELATIVE PERCENT (BEAKER) (test 66 % lctg=107) LYMPHOCYTES RELATIVE PERCENT (BEAKER) (test 16 % hbtk=668) MONOCYTES RELATIVE PERCENT (BEAKER) (test 12 % qsyn=031) EOSINOPHILS RELATIVE PERCENT (BEAKER) (test 5 % ffms=877) BASOPHILS RELATIVE PERCENT (BEAKER) (test 1 % knmx=876) NEUTROPHILS ABSOLUTE COUNT (BEAKER) (test 4.60 K/ L 1.80-8.00 wmsq=043) LYMPHOCYTES ABSOLUTE COUNT (BEAKER) (test 1.10 K/ L 1.48-4.50 nelv=264) MONOCYTES ABSOLUTE COUNT (BEAKER) (test 0.80 K/ L 0.00-1.30 lkuu=892) EOSINOPHILS ABSOLUTE COUNT (BEAKER) (test 0.30 K/ L 0.00-0.50 uofh=373) BASOPHILS ABSOLUTE COUNT (BEAKER) (test 0.10 K/ L 0.00-0.20 ckek=288) PROTHROMBIN [id number] 16:01:00 Test Item Value Reference Range Comments PROTIME (BEAKER) (test nwgc=431) 10.3 seconds 9.3-12.0 INR (BEAKER) (test ogbz=835) 1.0 <=5.9 RECOMMENDED COUMADIN/WARFARIN INR THERAPY RANGESSTANDARD DOSE: 2.0 - 3.0 Includes: PROPHYLAXIS forvenous thrombosis, systemic embolization; TREATMENT for venous thrombosis and/or pulmonary embolus.HIGH RISK: Target INR is 2.5-3.5 for patients with mechanical heart valves.POCT-GLUCOSE [id number] 12:01:00 Test Item Value Reference Range Comments POC-GLUCOSE METER (BEAKER) 211 mg/dL 70-110 TESTED AT [address] (test ydgh=9251) [facility] [address] POCT-GLUCOSE [id number] 06:08:00 Test Item Value Reference Range Comments POC-GLUCOSE METER (BEAKER) 191 mg/dL 70-110 TESTED AT [address] (test hglf=3026) [facility] [address] POCT-GLUCOSE [id number] 21:28:00 Test Item Value Reference Range Comments POC-GLUCOSE METER (BEAKER) 233 mg/dL 70-110 TESTED AT [address] (test vgkm=2613) [facility] [address] POCT-GLUCOSE [id number] 16:19:00 Test Item Value Reference Range Comments POC-GLUCOSE METER (BEAKER) 290 mg/dL 70-110 TESTED AT [address] (test hpeu=3426) [facility] [address] POCT-GLUCOSE [id number] 13:33:00 Test Item Value Reference Range Comments POC-GLUCOSE METER (BEAKER) 186 mg/dL 70-110 TESTED AT [address] (test tzhw=0001) [facility] [address] POCT-GLUCOSE [id number] 06:27:00 Test Item Value Reference Range Comments POC-GLUCOSE METER (BEAKER) 204 mg/dL 70-110 TESTED AT [address] (test ovzj=2710) [facility] [address] POCT-GLUCOSE [id number] 21:40:00 Test Item Value Reference Range Comments POC-GLUCOSE METER (BEAKER) 267 mg/dL 70-110 TESTED AT [address] (test udbu=3499) [facility] [address] POCT-GLUCOSE [id number] 17:32:00 Test Item Value Reference Range Comments POC-GLUCOSE METER (BEAKER) 221 mg/dL 70-110 TESTED AT [address] (test azdi=7097) [facility] [address] HEPATITIS B SURFACE [id number] 14:21:00 Test Item Value Reference Range Comments HEPATITIS B SURFACE ANTIBODY (BEAKER) (test < mIU/mL <8.0 ukkr=220) HEPATITIS B CORE ANTIBODY, [id number] 14:15:00 Test Item Value Reference Range Comments HEPATITIS B CORE TOTAL ANTIBODY (BEAKER) (test Nonreactive Nonreactive svmg=447) POCT-GLUCOSE [id number] 12:18:00 Test Item Value Reference Range Comments POC-GLUCOSE METER (BEAKER) 193 mg/dL 70-110 TESTED AT [address] (test qllx=2315) [facility] [address] RAD, CHEST, 1 VIEW, NON [id number] 08:49:00Reason for exam:->for outpatient HD placementShould this [...] Hammer Verified Date/Time: 06/10/2017 08:49:42 Reading Location: [facility] Radiology Reading Room Electronically signed by: SACHI HAMMER on 2016 08:49 AMPOCT-GLUCOSE [id number] 06:53:00 Test Item Value Reference Range Comments POC-GLUCOSE METER (BEAKER) 177 mg/dL 70-110 TESTED AT [address] (test btct=4841) [facility] [address] POCT-GLUCOSE [id number] 22:10:00 Test Item Value Reference Range Comments POC-GLUCOSE METER (BEAKER) 109 mg/dL 70-110 TESTED AT [address] (test cqnk=2364) [facility] [address] HEPATITIS B SURFACE [id number] 20:18:00 Test Item Value Reference Range Comments HEPATITIS B SURFACE ANTIGEN (2) (BEAKER) (test Nonreactive Nonreactive quam=0764) POCT-GLUCOSE [id number] 17:08:00 Test Item Value Reference Range Comments POC-GLUCOSE METER (BEAKER) 223 mg/dL 70-110 TESTED AT [facility] [address] [facility] (test ydcf=7447) [facility] [address] POCT-GLUCOSE [id number] 12:47:00 Test Item Value Reference Range Comments POC-GLUCOSE METER (BEAKER) 200 mg/dL 70-110 TESTED AT [facility] [address] [facility] (test zyey=5274) [facility] [address] ANG, TUNNELED CATHETER [id number] 12:13:00Reason for exam:->renal failureFINAL REPORT Tunneled central [...] the patient's medical record by the nurse. Wire Mill Operator: Onesimo Lopez MD. [employer] Consultant: None. Approach: Right internal jugular vein Estimated [...] needle into the right atrium. A 4 Samoan micropuncture sheath was placed. A subcutaneous tunnel was created in the right anterior chest wall by blunt dissection. A 19 cm tipped cuff 15.5 Samoan Duraflow 2 catheter was brought through the [...] MDReport Verified Date/Time: 06/09/2017 12:13:36 Reading Location: [facility] Radiology Reading Room 12 :13 PMPOCT-GLUCOSE [id number] 06:03:00 Test Item Value Reference Range Comments POC-GLUCOSE METER (BEAKER) 208 mg/dL 70-110 TESTED AT [address] (test gnee=5984) [address] [facility] [address] BASIC METABOLIC [id number] 06:00:00 Test Item Value Reference Range Comments SODIUM (BEAKER) (test 139 meq/L 135-148 waul=765) POTASSIUM (BEAKER) (test 3.5 meq/L 3.6-5.5 iiua=446) CHLORIDE (BEAKER) (test 103 meq/L 98-106 crsf=402) CO2 (BEAKER) (test 26 meq/L 20-29 qsqv=932) BLOOD UREA NITROGEN 62 mg/dL 10-26 (BEAKER) (test rfhr=527) CREATININE (BEAKER) (test 5.10 mg/dL 0.50-1.20 qeki=389) GLUCOSE RANDOM (BEAKER) 191 mg/dL 70-110 (test wxjf=509) CALCIUM (BEAKER) (test 9.0 mg/dL 8.5-10.5 hiiv=160) EGFR (BEAKER) (test 12 mL/min/1.73 sq m ESTIMATED GFR IS NOT lcdh=8144) ACCURATE CREATININE CLEARANCE IN PREDICTING GLOMERULAR FILTRATION RATE. ESTIMATED GFR IS NOT APPLICABLE FOR DIALYSIS PATIENTS. HEPATIC FUNCTION [id number] 05:58:00 Test Item Value Reference Range Comments TOTAL PROTEIN (BEAKER) (test inyf=684) 6.3 gm/dL 6.0-8.5 ALBUMIN (BEAKER) (test cvvi=2840) 3.2 g/dL 3.5-5.0 BILIRUBIN TOTAL (BEAKER) (test nbdn=468) 0.4 mg/dL 0.1-1.2 BILIRUBIN DIRECT (BEAKER) (test flue=292) 0.2 mg/dL 0.0-0.4 ALKALINE PHOSPHATASE (BEAKER) (test vjfy=827) 67 U/L 30-115 AST (SGOT) (BEAKER) (test jrgb=553) 13 U/L 5-40 ALT (SGPT) (BEAKER) (test xgha=211) 10 U/L 5-50 CBC W/PLT COUNT & AUTO [id number] 05:56:00 Test Item Value Reference Range Comments WHITE BLOOD CELL COUNT (BEAKER) (test skor=439) 6.3 K/ L 4.0-10.0 RED BLOOD CELL COUNT (BEAKER) (test dusb=264) 2.71 M/ L 4.20-5.80 HEMOGLOBIN (BEAKER) (test nxri=025) 7.8 GM/DL 13.0-16.8 HEMATOCRIT (BEAKER) (test ruzn=418) 23.6 % 40.0-50.0 MEAN CORPUSCULAR VOLUME (BEAKER) (test erhn=705) 86.8 fL 82.0-98.0 MEAN CORPUSCULAR HEMOGLOBIN (BEAKER) (test 28.6 pg 27.0-33.0 yowc=409) MEAN CORPUSCULAR HEMOGLOBIN CONC (BEAKER) (test 33.0 GM/DL 32.0-36.0 daub=441) RED CELL DISTRIBUTION WIDTH (BEAKER) (test 14.8 % 10.3-14.2 bmsu=278) PLATELET COUNT (BEAKER) (test vaqa=005) 334 K/CU MM 150-430 MEAN PLATELET VOLUME (BEAKER) (test lwgs=756) 6.9 fL 6.5-10.5 NUCLEATED RED BLOOD CELLS (BEAKER) (test 0 /100 WBC 0-0 qkmp=449) NEUTROPHILS RELATIVE PERCENT (BEAKER) (test 57 % plyy=873) LYMPHOCYTES RELATIVE PERCENT (BEAKER) (test 19 % mupg=950) MONOCYTES RELATIVE PERCENT (BEAKER) (test 15 % adab=444) EOSINOPHILS RELATIVE PERCENT (BEAKER) (test 7 % nwnh=267) BASOPHILS RELATIVE PERCENT (BEAKER) (test 1 % twsl=003) NEUTROPHILS ABSOLUTE COUNT (BEAKER) (test 3.60 K/ L 1.80-8.00 iyxd=293) LYMPHOCYTES ABSOLUTE COUNT (BEAKER) (test 1.20 K/ L 1.48-4.50 kkhx=514) MONOCYTES ABSOLUTE COUNT (BEAKER) (test 1.00 K/ L 0.00-1.30 bwqo=800) EOSINOPHILS ABSOLUTE COUNT (BEAKER) (test 0.50 K/ L 0.00-0.50 hseu=917) BASOPHILS ABSOLUTE COUNT (BEAKER) (test 0.10 K/ L 0.00-0.20 bhjy=183) [id number] 05:55:00 Test Item Value Reference Range Comments PHOSPHORUS (BEAKER) (test gwsp=620) 4.1 mg/dL 2.5-4.5 [id number] 05:51:00 Test Item Value Reference Range Comments PROTIME (BEAKER) (test stkd=756) 10.7 seconds 9.3-12.0 INR (BEAKER) (test lqmy=520) 1.0 <=5.9 PARTIAL THROMBOPLASTIN TIME (BEAKER) (test 28.5 seconds 23.0-35.0 vgxw=337) RECOMMENDED COUMADIN/WARFARIN INR THERAPY RANGESSTANDARD DOSE: 2.0 - 3.0 Includes: PROPHYLAXIS forvenous thrombosis, systemic embolization; TREATMENT for venous thrombosis and/or pulmonary embolus.HIGH RISK: Target INR is 2.5-3.5 for patients with mechanical heart valves.[id number] 05:50:00 Test Item Value Reference Range Comments MAGNESIUM (BEAKER) (test fmlt=855) 1.7 mg/dL 1.5-3.0 POCT-GLUCOSE [id number] 23:14:00 Test Item Value Reference Range Comments POC-GLUCOSE METER (LUIS ALBERTO) 230 mg/dL 70-110 TESTED AT [address] (test dhsu=8478) [address] [facility] [address]
[2019-07-04 20:42] LABS: Absolute Lymphocytes (CBC) 0.6 K/uL (0.7-4.9); Basophils % 0.7 % (0-1.3); Hematocrit 37.2 % (39.6-49.0); MPV 8.1 fL (7.6-11.3); RBC Red Blood Cell Count 3.63 M/uL (4.33-5.43)
[2019-07-04 21:13] LABS: Albumin 3.6 g/dL (3.4-5.0); Bilirubin Direct 0.2 mg/dL (0-0.2); Bilirubin Total 0.4 mg/dL (0.2-1.0); Magnesium 2.2 mg/dL (1.8-2.4); Potassium 4.8 mmol/L (3.5-5.1); Protein, Total 7.9 g/dL (6.4-8.2)
[2019-07-04 21:15] LABS: Troponin (Emerg Dept Use Only) 16.5 ng/mL (0.0-0.045)
--- NOTE | 2019-07-04 21:31 | ER ---
Nurse's Notes [facility] Name: Yusuf Bah Age: 54 yrs Sex: Male : 1965 Arrival Date: 07/04/2019 Time: 19:25 Bed 4 Private MD: Garo Chavarria Diagnosis: Non-ST elevation (NSTEMI) myocardial infarction Presentation: 07/04 19:42 Presenting complaint: Patient states: MY BLOOD PRESSURE IS LOW WHEN I LEFT DIALYSIS rv TODAY. I FEEL WEAK AND NAUSEOUS AND WHEN MY CHECKED MY BP IT IS ON THE 80s. SO I CALLED MY DOCTOR AND HE TOLD ME TO COME TO THE ER AND GET CHECKED. Transition of care: patient was not received from another setting of care. Onset of symptoms was July 04, 2019 at 15:00. Risk Assessment: Do you want to hurt yourself or someone else? Patient reports no desire to harm self or others. Initial Sepsis Screen: Does the patient meet any 2 criteria? No. Patient's initial sepsis screen is negative. Does the patient have a suspected source of infection? No. Patient's initial sepsis screen is negative. Care prior to arrival: None. 19:42 Method Of Arrival: Ambulatory rv 19:42 Acuity: ALVERTO 3 rv Triage Assessment: 19:47 General: Appears in no apparent distress. Behavior is calm, cooperative. Pain: rv Complains of pain in LOW BACK. Historical: - Allergies: 19:46 Sulfa (Sulfonamide Antibiotics); rv - Home Meds: 20:27 sertraline 50 mg Oral tab 1 tab once daily [Active]; atorvastatin 40 mg Oral tab 1 tab rv once daily [Active]; 20:45 metoprolol tartrate 50 mg oral tab 1 tab once daily [Active]; pantoprazole 40 mg Oral rv TbEC 1 tab once daily [Active]; Plavix 75 mg Oral tab 1 tab once daily [Active]; gabapentin 100 mg Oral cap 1 caps 3 times per day [Active]; bumetanide 2 mg Oral tab 1 tab once daily [Active]; Entresto 49-51 mg oral tab 1 tab 2 times per day [Active]; sevelamer HCl oral 800mg oral 3 tab with every meal and snack [Active]; Lantus 100 unit/mL Sub-Q soln 5 unit nightly [Active]; aspirin 81 mg Oral chew 1 tab once daily [Active]; zolpidem 5 mg Oral tab 1 tab once daily [Active]; [place] 7.5-325 mg Oral tab 1 tab three times a day [Active]; - PMHx: 19:46 SMALL VESSEL DSE; KIDNEY FAILURE; CARDIAC STENTS; rv - PSHx: 19:46 Appendectomy; Cholecystectomy; rv - Immunization history:: Adult Immunizations up to date. - Social history:: Smoking status: Patient denies any tobacco usage or history of. - Ebola Screening: : No symptoms or risks identified at this time. Screenin:46 Abuse screen: Denies threats or abuse. Denies injuries from another. Nutritional rv screening: No deficits noted. Tuberculosis screening: No symptoms or risk factors identified. Fall Risk No fall in past 12 months (0 pts). Secondary diagnosis (15 points) impaired mobility, No IV (0 pts). Ambulatory Aid- None/Bed Rest/Nurse Assist (0 pts). Gait- Normal/Bed Rest/Wheelchair (0 pts) Mental Status- Oriented to own ability (0 pts). Total Gamez Fall Scale indicates No Risk (0-24 pts). Assessment: 20:27 Reassessment: SEE TRIAGE NOTES. rv 22:00 Reassessment: Patient appears in no apparent distress at this time. Patient and/or rv family updated on plan of care and expected duration. Pain level reassessed. Patient is alert, oriented x 3, equal unlabored respirations, skin warm/dry/pink. 22:00 Reassessment: patient complained of shoulder pain. referred to Dr Umana. EMS came in rv to take the patient to [facility]. Vital Signs: 19:42 BP 98 / 59; Pulse 63; Resp 16; Temp 98.1; Pulse Ox 99% ; Weight 88.45 kg; Height 6 ft. rv 3 in. (190.50 cm); 20:15 BP 106 / 52; Pulse 63; Resp 14; Pulse Ox 100% on R/A; rv 20:45 BP 92 / 42; Pulse 62; Resp 12; Pulse Ox 97% on R/A; rv 21:28 Weight 90.72 kg (M); rv 21:46 BP 106 / 55; Pulse 66; Resp 16; Pulse Ox 100% on R/A; rv 22:38 BP 113 / 65; Pulse 66; Resp 15; Pulse Ox 100% on R/A; rv 21:28 Body Mass Index 25.00 (90.72 kg, 190.50 cm) rv ED Course: 19:25 Patient arrived in ED. mr 19:26 Garo Chavarria MD is Private Physician. mr 19:33 Venice Keith, RN is Primary Nurse. vc 19:45 Triage completed. rv 19:46 Arm band placed on Patient placed Patient notified of wait time. rv 19:47 Patient has correct armband on for positive identification. Bed in low position. Call rv light in reach. traffic monitor specialist on. Pulse ox on. NIBP on. 20:09 Mehdi Umana MD is Attending Physician. tw4 20:21 XRAY Chest (1 view) In Process Unspecified. EDMS 20:27 Inserted saline lock: 20 gauge in left forearm, using aseptic technique. Blood rv collected. 21:45 Inserted saline lock: 20 gauge in left wrist, using aseptic technique. rv 22:40 No provider procedures requiring assistance completed. Patient transferred, IV remains rv in place. Administered Medications: 21:40 Drug: Heparin (NV-Bolus No thrombolytic) - HEParin 60 units/kg {Co-Signature: lp1 rv (Natalia Bhardwaj RN).} Route: IVP; Site: left forearm; 22:39 Follow up: Response: No adverse reaction rv 21:45 Drug: Heparin (NV Drip) 12 units/kg/hr - (HEParin 11111 units, D5W 500 ml) rv {Co-Signature: lp1 (Natalia Bhardwaj RN).} Route: IV; Rate: calculated rate; Site: left wrist; 22:40 Follow up: IV Status: Infusion continued upon transfer rv 21:49 Drug: [place] (7.5 mg-325 mg) 1 tabs {Note: rass 0.} Route: PO; rv 22:40 Follow up: Response: No adverse reaction; RASS: Alert and Calm (0) rv Outcome: 21:31 ER care complete, transfer ordered by . tw4 22:40 Transferred by ground EMS to [facility], Transfer form completed. X-rays sent rv w/ patient. 22:40 Condition: good 22:40 Discharge instructions given to patient, family, Instructed on the need for transfer. 22:40 Patient left the ED. rv Signatures: Dispatcher [employer] EDMS Katelyn Vargas, MD LURDES Harding tw4 Karan Boykin RN RN rv Venice Keith RN RN vc Natalia Bhardwaj RN lp1
--- NOTE | 2019-07-04 21:31 | EDPHYS ---
Physician Documentation [facility] Name: Yusuf Bah Age: 54 yrs Sex: Male : 1965 Arrival Date: 07/04/2019 Time: 19:25 Bed 4 Private MD: Garo Chavarria ED Physician Mehdi Umana HPI: 07/04 22:32 This 54 yrs old Male presents to ER via Ambulatory with complaints of Low tw4 BP,Low heart rate. 22:32 The patient presents with generalized weakness. Onset: The symptoms/episode tw4 began/occurred today. Context: occurred at home, occurred while the patient was sitting. Modifying factors: The symptoms are alleviated by nothing, the symptoms are aggravated by nothing. Associated signs and symptoms: Pertinent positives: LEFT ARM PAIN. Severity of symptoms: At their worst the symptoms were mild in the emergency department the symptoms have resolved. The patient has not experienced similar symptoms in the past. Historical: - Allergies: 19:46 Sulfa (Sulfonamide Antibiotics); rv - Home Meds: 20:27 sertraline 50 mg Oral tab 1 tab once daily [Active]; atorvastatin 40 mg Oral tab 1 tab rv once daily [Active]; 20:45 metoprolol tartrate 50 mg oral tab 1 tab once daily [Active]; pantoprazole 40 mg Oral rv TbEC 1 tab once daily [Active]; Plavix 75 mg Oral tab 1 tab once daily [Active]; gabapentin 100 mg Oral cap 1 caps 3 times per day [Active]; bumetanide 2 mg Oral tab 1 tab once daily [Active]; Entresto 49-51 mg oral tab 1 tab 2 times per day [Active]; sevelamer HCl oral 800mg oral 3 tab with every meal and snack [Active]; Lantus 100 unit/mL Sub-Q soln 5 unit nightly [Active]; aspirin 81 mg Oral chew 1 tab once daily [Active]; zolpidem 5 mg Oral tab 1 tab once daily [Active]; [place] 7.5-325 mg Oral tab 1 tab three times a day [Active]; - PMHx: 19:46 SMALL VESSEL DSE; KIDNEY FAILURE; CARDIAC STENTS; rv - PSHx: 19:46 Appendectomy; Cholecystectomy; rv - Immunization history:: Adult Immunizations up to date. - Social history:: Smoking status: Patient denies any tobacco usage or history of. - Ebola Screening: : No symptoms or risks identified at this time. ROS: 22:32 Constitutional: Negative for fever, chills, and weight loss, Eyes: Negative for injury, tw4 pain, redness, and discharge, Cardiovascular: Negative for chest pain, palpitations, and edema, Respiratory: Negative for shortness of breath, cough, wheezing, and pleuritic chest pain, Abdomen/GI: Negative for abdominal pain, nausea, vomiting, diarrhea, and constipation, Back: Negative for injury and pain, MS/Extremity: Negative for injury and deformity, Skin: Negative for injury, rash, and discoloration. 22:32 Cardiovascular: Positive for LOW BP, LOW HEART RATE. Exam: 22:32 Constitutional: This is a well developed, well nourished patient who is awake, alert, tw4 and in no acute distress. Head/Face: Normocephalic, atraumatic. Chest/axilla: Normal chest wall appearance and motion. Nontender with no deformity. No lesions are appreciated. Cardiovascular: Regular rate and rhythm with a normal S1 and S2. No gallops, murmurs, or rubs. Normal PMI, no JVD. No pulse deficits. Respiratory: Lungs have equal breath sounds bilaterally, clear to auscultation and percussion. No rales, rhonchi or wheezes noted. No increased work of breathing, no retractions or nasal flaring. Abdomen/GI: Soft, non-tender, with normal bowel sounds. No distension or tympany. No guarding or rebound. No evidence of tenderness throughout. Back: No spinal tenderness. No costovertebral tenderness. Full range of motion. MS/ Extremity: Pulses equal, no cyanosis. Neurovascular intact. Full, normal range of motion. Neuro: Awake and alert, GCS 15, oriented to person, place, time, and situation. Cranial nerves II-XII grossly intact. Motor strength 5/5 in all extremities. Sensory grossly intact. Cerebellar exam normal. Normal gait. Vital Signs: 19:42 BP 98 / 59; Pulse 63; Resp 16; Temp 98.1; Pulse Ox 99% ; Weight 88.45 kg; Height 6 ft. rv 3 in. (190.50 cm); 20:15 BP 106 / 52; Pulse 63; Resp 14; Pulse Ox 100% on R/A; rv 20:45 BP 92 / 42; Pulse 62; Resp 12; Pulse Ox 97% on R/A; rv 21:28 Weight 90.72 kg (M); rv 21:46 BP 106 / 55; Pulse 66; Resp 16; Pulse Ox 100% on R/A; rv 22:38 BP 113 / 65; Pulse 66; Resp 15; Pulse Ox 100% on R/A; rv 21:28 Body Mass Index 25.00 (90.72 kg, 190.50 cm) rv MDM: 21:03 Patient medically screened. tw4 22:32 Differential diagnosis: generalized weakness, GI bleed, idiopathic dizziness, sepsis, tw4 syncope. Data reviewed: vital signs, nurses notes. Data interpreted: Pulse oximetry: Interpretation: normal. Counseling: I had a detailed discussion with the patient and/or guardian regarding: the historical points, exam findings, and any diagnostic results supporting the discharge/admit diagnosis, lab results, radiology results. ED course: D/W DR BENOIT WANTS TRANSFER PT TO [facility] AGREES TO ACCEPT FOR TRANSFER AT 2149. 07/04 20:09 Order name: Basic Metabolic Panel; Complete Time: 21:16 07/04 20:09 Order name: CBC with Diff; Complete Time: 21:16 07/04 20:09 Order name: LFT's; Complete Time: 21:16 07/04 20:09 Order name: Magnesium; Complete Time: 21:16 07/04 20:09 Order name: NT PRO-BNP; Complete Time: 21:16 07/04 20:09 Order name: PT-INR; Complete Time: 21:16 07/04 20:09 Order name: Troponin (emerg Dept Use Only); Complete Time: 21:16 07/04 20:09 Order name: XRAY Chest (1 view) 07/04 20:09 Order name: Cardiac monitoring; Complete Time: 20:12 07/04 20:09 Order name: EKG - Nurse/Tech; Complete Time: 20:12 07/04 20:09 Order name: IV Saline Lock; Complete Time: 20:27 07/04 20:09 Order name: Labs collected and sent; Complete Time: 20:27 07/04 20:09 Order name: O2 Per Protocol; Complete Time: 20:27 tw4 07/04 20:09 Order name: O2 Sat Monitoring; Complete Time: 20:28 tw4 EC:32 Rate is 62 beats/min. Rhythm is regular. QRS [place] is Normal. QT interval is normal. No tw4 Q waves. T waves are Inverted in leads I, aVL. No ST changes noted. Clinical impression: NSR w/ Non-specific ST/T Changes and Abnormal EKG without significant change. Interpreted by me. Reviewed by me. Administered Medications: 21:40 Drug: Heparin (NM-Bolus No thrombolytic) - HEParin 60 units/kg {Co-Signature: lp1 rv (Natalia Bhardwaj RN).} Route: IVP; Site: left forearm; 22:39 Follow up: Response: No adverse reaction rv 21:45 Drug: Heparin (NM Drip) 12 units/kg/hr - (HEParin 31670 units, D5W 500 ml) rv {Co-Signature: lp1 (Natalia Bhardwaj RN).} Route: IV; Rate: calculated rate; Site: left wrist; 22:40 Follow up: IV Status: Infusion continued upon transfer rv 21:49 Drug: [place] (7.5 mg-325 mg) 1 tabs {Note: rass 0.} Route: PO; rv 22:40 Follow up: Response: No adverse reaction; RASS: Alert and Calm (0) rv Disposition: 07/04/19 21:31 Transfer ordered to [facility]. Diagnosis is Non-ST elevation (NSTEMI) myocardial infarction. - Reason for transfer: Higher level of care. - Accepting physician is DR BENOIT. - Condition is Stable. - Problem is new. - Symptoms are unchanged. Critical care time excluding procedures: 07/05 01:31 Critical care time: Bedside Care: 40 minutes, Consultation: 5 minutes, Family tw4 Intervention: 5 minutes. Total time: 50 minutes Signatures: Dispatcher [employer] Mehdi Garcia MD MD tw4 Karan Boykin RN RN rv Natalia Bhardwaj RN lp1 Corrections: (The following items were deleted from the chart) 07/04 22:40 21:31 07/04/2019 21:31 Transfer ordered to [facility]. Diagnosis is Non-ST rv elevation (NSTEMI) myocardial infarction. Reason for transfer: Higher level of care. Accepting physician is DR BENOIT. Condition is Stable. Problem is new. Symptoms are unchanged. tw4
[2019-07-04] MEDS ORDERED: HEPARIN 5000 UNIT/ML 1 ML VIAL ONE (21:35)
[2019-07-04] MEDS ORDERED: HEPARIN/D5W 25,000 UNIT/500 ML BAG IV ONE (21:35)
[2019-07-04] MEDS ORDERED: HYDROCODONE/APAP 7.5/325 MG TAB ONE (21:50)
[2019-07-05 04:41] VITALS: TEMP 98.1
[2019-07-05 04:45] VITALS: O2SAT 100
[2019-07-05 04:46] VITALS: BP 113/65
--- NOTE | 2019-07-05 06:48 | RAD REPORT ---
EXAM DESCRIPTION: RAD - Chest Single View - 07/04/2019 8:23 pm CLINICAL HISTORY: CHEST PAIN, hypotension COMPARISON: Chest Single View dated 12/23/2018; Chest Single View dated 10/16/2018; Chest Single View d ated 01/25/2018 TECHNIQUE: AP portable chest image was obtained 07/04/2019 8:23 pm . FINDINGS: Low lung volumes noted. No peripheral mass or consolidation. Mild cardiomegaly is present accentuated by shallow inspiration. Vasculature is mildly prominent. No measurable pleural effusion a nd no pneumothorax. No acute bony abnormality seen. No acute aortic findings suspected. IMPRESSION: No peripheral mass or consolidation seen. Low lung volumes accentuates vasculature and lung markings. A very minimal component of failure or vo lume overload could be present and masked by the low lung volumes.
== END 2019-07-04 22:40 | disposition short-term general hospital (02) ==
LOC: ER 19:21
DX: I21.4 Non-ST elevation (NSTEMI) myocardial infarction (principal); N19 Unspecified kidney failure; Z95.818 Presence of other cardiac implants and grafts; Z79.01 Long term (current) use of anticoagulants; Z79.82 Long term (current) use of aspirin; Z88.2 Allergy status to sulfonamides
CPT/HCPCS: 96365; 85025; 80048; 36415; 83735; 85610; 80076; 84484; 83880; 71045; 99285; J1644

== ENCOUNTER 2019-10-11 17:23 | Emergency (ER) | payer BC, OTHER ==
--- OUTSIDE RECORDS SUMMARY | 2019-10-11 17:27 | XMS REPORT ---
:1965 Author Organization [facility] t Address [address] [place] [address] Dr. Lugo [address] [place] [address] Care Team Providers Name Role Phone JOSLYN MCHUGH Unavailable Unavailable Problems This patient has no known problems. Allergies, Adverse Reactions, Alerts This patient has no known allergies or adverse reactions. Medications This patient has no known medications. Procedures and Interventions Procedure Date / Time Performed Performing Clinici an [id number] 2019-01-31 00:00:00 Encounters Start End Encounter Admission Attending Care Care Encounter Date/Time Date/Time Type Type Clinicians Facility Department ID 2019-07-05 Inpatient U [facility] [id number] 00:38:00 2019-01-31 Outpatient [facility] [id number] 08:52:18 2018-12-24 Inpatient U [facility] [id number] 05:31:00 2018-12-20 Outpatient [facility] [id number] 10:46:33 2018-12-19 Inpatient U [facility] [id number] 19:45:00 2019-07-19 2019-07-19 Outpatient [facility] [id number] 09:46:00 09:46:00 2019-01-18 2019-01-18 Inpatient E [facility] [id number] 17:00:00 14:27:00 2018-12-19 2018-12-19 Outpatient [facility] [id number] 16:05:00 16:05:00 2018-10-31 2018-10-31 Outpatient [facility] [id number] 10:40:00 10:40:00 Results Test Description Test Time Test Comments Text Results Atomic Results Result Comments POCT-GLUCOSE METER 2017-06-15 17:36:00 Test Item Value Reference Range Comments POC-GLUCOSE METER (LUIS ALBERTO) (test 243 mg/dL 70-110 TESTED AT [address] POINT code = 1538) [address] [facility] [place] [address] BASIC METABOLIC [id number] 13:51:00 Test Item Value Reference Range Comments SODIUM (BEAKER) (test 139 meq/L 135-148 code = 381) POTASSIUM (BEAKER) (test 3.4 meq/L 3.6-5.5 code = 379) CHLORIDE (BEAKER) (test 101 meq/L 98-106 code = 382) CO2 (BEAKER) (test code = 29 meq/L 20-29 355) BLOOD UREA NITROGEN 11 mg/dL 10-26 (BEAKER) (test code = 354) CREATININE (BEAKER) (test 2.10 mg/dL 0.50-1.20 code = 358) GLUCOSE RANDOM (BEAKER) 157 mg/dL 70-110 (test code = 652) CALCIUM (BEAKER) (test 8.6 mg/dL 8.5-10.5 code = 697) EGFR (BEAKER) (test code 33 mL/min/1.73 sq m EST IMATED GFR IS NOT = 1092) ACCURATE CREA TININE CLEARANCE IN PRE DICTING GLOMERULAR FILTR ATION RATE. ESTIMATED GFR IS NOT APPLICABLE F OR DIALYSIS PATIENT S. [id number] 13:44:00 Test Item Value Reference Range Comments MAGNESIUM (BEAKER) (test code = 627) 1.9 mg/dL 1.5-3.0 CBC W/PLT COUNT & AUTO [id number] 13:34:00 Test Item Value Reference Range Comments WHITE BLOOD CELL COUNT (BEAKER) (test code = 6.8 K/ L 4.0 -10.0 775) RED BLOOD CELL COUNT (BEAKER) (test code = 761) 2.92 M/ L 4.20-5.80 HEMOGLOBIN (BEAKER) (test code = 410) 8.4 GM/DL 13.0-16.8 HEMATOCRIT (BEAKER) (test code = 411) 25.5 % 40.0-50.0 MEAN CORPUSCULAR VOLUME (BEAKER) (test code = 87.4 fL 82 .0-98.0 753) MEAN CORPUSCULAR HEMOGLOBIN (BEAKER) (test code 28.7 pg 27.0-33.0 = 751) MEAN CORPUSCULAR HEMOGLOBIN CONC (BEAKER) (test 32.8 GM/DL 32.0-36.0 code = 752) RED CELL DISTRIBUTION WIDTH (BEAKER) (test code 14.7 % 10.3-14.2 = 412) PLATELET COUNT (BEAKER) (test code = 756) 299 K/CU MM 150-43 0 MEAN PLATELET VOLUME (BEAKER) (test code = 754) 6.9 fL 6.5-10.5 NUCLEATED RED BLOOD CELLS (BEAKER) (test code = 0 /100 WBC 0-0 413) NEUTROPHILS RELATIVE PERCENT (BEAKER) (test code 65 % = 429) LYMPHOCYTES RELATIVE PERCENT (BEAKER) (test code 18 % = 430) MONOCYTES RELATIVE PERCENT (BEAKER) (test code = 14 % 431) EOSINOPHILS RELATIVE PERCENT (BEAKER) (test code 3 % = 432) BASOPHILS RELATIVE PERCENT (BEAKER) (test code = 1 % 437) NEUTROPHILS ABSOLUTE COUNT (BEAKER) (test code = 4.40 K/ L 1.80-8.00 670) LYMPHOCYTES ABSOLUTE COUNT (BEAKER) (test code = 1.20 K/ L 1.48-4.50 414) MONOCYTES ABSOLUTE COUNT (BEAKER) (test code = 1.00 K/ L 0 .00-1.30 415) EOSINOPHILS ABSOLUTE COUNT (BEAKER) (test code = 0.20 K/ L 0.00-0.50 416) BASOPHILS ABSOLUTE COUNT (BEAKER) (test code = 0.00 K/ L 0 .00-0.20 417) POCT-GLUCOSE [id number] 11:28:00 Test Item Value Reference Range Comments POC-GLUCOSE METER (BEAKER) 147 mg/dL 70-110 TESTE D AT [address] (test code = 1538) [place] [address] POCT-GLUCOSE [id number] 06:04:00 Test Item Value Reference Range Comments POC-GLUCOSE METER (BEAKER) 137 mg/dL 70-110 TESTE D AT [address] (test code = 1538) [place] [address] POCT-GLUCOSE [id number] 21:01:00 Test Item Value Reference Range Comments POC-GLUCOSE METER (BEAKER) 138 mg/dL 70-110 TESTE D AT [address] (test code = 1538) [place] [address] POCT-GLUCOSE [id number] 16:06:00 Test Item Value Reference Range Comments [facility] mg/dL 70-110 TESTE D AT [address] (test code = 1538) [place] [address] POCT-GLUCOSE [id number] 12:49:00 Test Item Value Reference Range Comments POC-GLUCOSE METER ([facility]) 144 mg/dL 70-110 TESTE D AT [address] (test code = 1538) [place] [address] [id number] 10:27:00 Test Item Value Reference Range Comments POC-CREATININE (BEAKER) 3.6 mg/dL 0.6-1.3 TESTED A [address] (test code = 1859) [facility] [place] [address] POC-EGFR (BEAKER) (test 18 mL/min/1.73M2 code = 1860) [id number] 10:27:00 Test Item Value Reference Range Comments POC-SODIUM (BEAKER) (test 138 meq/L 135-148 TESTED AT [address] code = 1542) [facility] [place] [address] [id number] 10:27:00 Test Item Value Reference Range Comments POC-POTASSIUM (BEAKER) 3.6 meq/L 3.6-5.5 TESTED AT [address] (test code = 1540) [place] [address] [id number] 10:27:00 Test Item Value Reference Range Comments POC-BUN (BEAKER) (test code 20 mg/dL 7-21 TEST ED AT [address] = 1062) [facility] [place] [address] [id number] 10:27:00 Test Item Value Reference Range Comments POC-CHLORIDE (BEAKER) (test 97 meq/L 98-107 TEST ED AT [address] code = 2844) [facility] [place] [address] [id number] 10:27:00 Test Item Value Reference Range Comments POC-GLUCOSE (BEAKER) (test 123 mg/dL 70-110 TESTE D AT [address] code = 1855) [facility] [place] [address] [id number] 10:27:00 Test Item Value Reference Range Comments POC-HEMATOCRIT (BEAKER) (test 24 % 40-50 TE STED AT [address] code = 1857) [facility] [place] [address] [id number] 10:27:00 Test Item Value Reference Range Comments POC-HEMOGLOBIN (BEAKER) 8.2 g/dL 13.0-16.8 TESTED A T [address] (test code = 1856) [place] [address] [id number] 10:27:00 Test Item Value Reference Range Comments POC-TCO2 (BEAKER) (test code 30 meq/L 22-29 DESIREE TRENT AT [address] = 2844) [facility] [place] [address] POCT-GLUCOSE [id number] 06:08:00 Test Item Value Reference Range Comments POC-GLUCOSE METER (BEAKER) 163 mg/dL 70-110 TESTE D AT [address] (test code = 1538) [place] [address] POCT-GLUCOSE [id number] 21:07:00 Test Item Value Reference Range Comments POC-GLUCOSE METER (BEAKER) 132 mg/dL 70-110 TESTE D AT [address] (test code = 1538) [place] [address] POCT-GLUCOSE [id number] 12:58:00 Test Item Value Reference Range Comments POC-GLUCOSE METER (BEAKER) 178 mg/dL 70-110 TESTE D AT [address] (test code = 1538) [place] [address] POCT-GLUCOSE [id number] 05:29:00 Test Item Value Reference Range Comments POC-GLUCOSE METER (BEAKER) 171 mg/dL 70-110 TESTE D AT [address] (test code = 1538) [place] [address] POCT-GLUCOSE [id number] 22:03:00 Test Item Value Reference Range Comments POC-GLUCOSE METER (BEAKER) 249 mg/dL 70-110 TESTE D AT [facility] [address] [facility] (test code = 1538) [place] [address] POCT-GLUCOSE [id number] 16:45:00 Test Item Value Reference Range Comments POC-GLUCOSE METER (BEAKER) 213 mg/dL 70-110 [facility] [address] [facility] (test code = 1538) [place] [address] [id number] 16:43:00 Test Item Value Reference Range Comments THYROID STIMULATING HORMONE (BEAKER) (test code 2.09 uIU/mL 0.35-5.50 = 772) COMPREHENSIVE METABOLIC [id number] 16:24:00 Test Item Value Reference Range Comments TOTAL PROTEIN (BEAKER) 7.2 gm/dL 6.0-8.5 (test code = 770) ALBUMIN (BEAKER) (test 3.5 g/dL 3.5-5.0 code = 1145) ALKALINE PHOSPHATASE 67 U/L 30-115 (BEAKER) (test code = 346) BILIRUBIN TOTAL (BEAKER) 0.3 mg/dL 0.1-1.2 (test code = 377) SODIUM (BEAKER) (test code 136 meq/L 135-148 = 381) POTASSIUM (BEAKER) (test 4.1 meq/L 3.6-5.5 code = 379) CHLORIDE (BEAKER) (test 98 meq/L 98-106 code = 382) CO2 (BEAKER) (test code = 26 meq/L 20-29 355) BLOOD UREA NITROGEN 32 mg/dL 10-26 (BEAKER) (test code = 354) CREATININE (BEAKER) (test 4.40 mg/dL 0.50-1.20 code = 358) GLUCOSE RANDOM (BEAKER) 212 mg/dL 70-110 (test code = 652) CALCIUM (BEAKER) (test 9.0 mg/dL 8.5-10.5 code = 697) AST (SGOT) (BEAKER) (test 14 U/L 5-40 code = 353) ALT (SGPT) (BEAKER) (test 4 U/L 5-50 code = 347) EGFR (BEAKER) (test code = 14 mL/min/1.73 sq m E STIMATED GFR IS NOT 1092) ACCURATE CREA TININE CLEARANCE IN PRE DICTING GLOMERULAR FILTR ATION RATE. ESTIMATED GFR IS NOT APPLICABLE F OR DIALYSIS PATIENT S. CBC W/PLT COUNT & AUTO [id number] 16:02:00 Test Item Value Reference Range Comments WHITE BLOOD CELL COUNT (BEAKER) (test code = 6.9 K/ L 4.0 -10.0 775) RED BLOOD CELL COUNT (BEAKER) (test code = 761) 2.95 M/ L 4.20-5.80 HEMOGLOBIN (BEAKER) (test code = 410) 8.6 GM/DL 13.0-16.8 HEMATOCRIT (BEAKER) (test code = 411) 25.9 % 40.0-50.0 MEAN CORPUSCULAR VOLUME (BEAKER) (test code = 87.9 fL 82 .0-98.0 753) MEAN CORPUSCULAR HEMOGLOBIN (BEAKER) (test code 29.0 pg 27.0-33.0 = 751) MEAN CORPUSCULAR HEMOGLOBIN CONC (BEAKER) (test 33.0 GM/DL 32.0-36.0 code = 752) RED CELL DISTRIBUTION WIDTH (BEAKER) (test code 15.0 % 10.3-14.2 = 412) PLATELET COUNT (BEAKER) (test code = 756) 330 K/CU MM 150-43 0 MEAN PLATELET VOLUME (BEAKER) (test code = 754) 7.1 fL 6.5-10.5 NUCLEATED RED BLOOD CELLS (BEAKER) (test code = 0 /100 WBC 0-0 413) NEUTROPHILS RELATIVE PERCENT (BEAKER) (test code 66 % = 429) LYMPHOCYTES RELATIVE PERCENT (BEAKER) (test code 16 % = 430) MONOCYTES RELATIVE PERCENT (BEAKER) (test code = 12 % 431) EOSINOPHILS RELATIVE PERCENT (BEAKER) (test code 5 % = 432) BASOPHILS RELATIVE PERCENT (BEAKER) (test code = 1 % 437) NEUTROPHILS ABSOLUTE COUNT (BEAKER) (test code = 4.60 K/ L 1.80-8.00 670) LYMPHOCYTES ABSOLUTE COUNT (BEAKER) (test code = 1.10 K/ L 1.48-4.50 414) MONOCYTES ABSOLUTE COUNT (BEAKER) (test code = 0.80 K/ L 0 .00-1.30 415) EOSINOPHILS ABSOLUTE COUNT (BEAKER) (test code = 0.30 K/ L 0.00-0.50 416) BASOPHILS ABSOLUTE COUNT (BEAKER) (test code = 0.10 K/ L 0 .00-0.20 417) PROTHROMBIN [id number] 16:01:00 Test Item Value Reference Range Comments PROTIME (BEAKER) (test code = 759) 10.3 seconds 9.3-12.0 INR (BEAKER) (test code = 370) 1.0 <=5.9 RECOMMENDED COUMADIN/WARFARIN INR THERAPY RANGESSTANDARD DOSE: 2.0 - 3.0 Includes: PROPHYLAXIS forvenous thrombosis, systemic embolization; TREATMENT for venous thrombosis and/or pulmonary embolus.HIGH RISK: Target INR is 2.5-3.5 for patients with mechanical heart valves.POCT-GLUCOSE [id number] 12:01:00 Test Item Value Reference Range Comments POC-GLUCOSE METER (BEAKER) 211 mg/dL 70-110 TESTE D AT [address] (test code = 1538) [place] [address] POCT-GLUCOSE [id number] 06:08:00 Test Item Value Reference Range Comments POC-GLUCOSE METER (BEAKER) 191 mg/dL 70-110 TESTE D AT [address] (test code = 1538) [place] [address] POCT-GLUCOSE [id number] 21:28:00 Test Item Value Reference Range Comments POC-GLUCOSE METER (BEAKER) 233 mg/dL 70-110 TESTE D AT [address] (test code = 1538) [place] [address] POCT-GLUCOSE [id number] 16:19:00 Test Item Value Reference Range Comments POC-GLUCOSE METER (BEAKER) 290 mg/dL 70-110 TESTE D AT [address] (test code = 1538) [place] [address] POCT-GLUCOSE [id number] 13:33:00 Test Item Value Reference Range Comments POC-GLUCOSE METER (BEAKER) 186 mg/dL 70-110 TESTE D AT [address] (test code = 1538) [place] [address] POCT-GLUCOSE [id number] 06:27:00 Test Item Value Reference Range Comments POC-GLUCOSE METER (BEAKER) 204 mg/dL 70-110 TESTE D AT [facility] [address] [facility] (test code = 1538) [place] [address] POCT-GLUCOSE [id number] 21:40:00 Test Item Value Reference Range Comments POC-GLUCOSE METER (BEAKER) 267 mg/dL 70-110 TESTE D AT [facility] [address] [facility] (test code = 1538) [place] [address] POCT-GLUCOSE [id number] 17:32:00 Test Item Value Reference Range Comments POC-GLUCOSE METER (BEAKER) 221 mg/dL 70-110 TESTE D AT [facility] [address] [facility] (test code = 1538) [place] [address] HEPATITIS B SURFACE [id number] 14:21:00 Test Item Value Reference Range Comments HEPATITIS B SURFACE ANTIBODY (BEAKER) (test code = < mIU/mL <8.0 647) HEPATITIS B CORE ANTIBODY, [id number] 14:15:00 Test Item Value Reference Range Comments HEPATITIS B CORE TOTAL ANTIBODY (BEAKER) (test Nonreactive N onreactive code = 497) POCT-GLUCOSE [id number] 12:18:00 Test Item Value Reference Range Comments POC-GLUCOSE METER (BEAKER) 193 mg/dL 70-110 TESTE D AT [facility] [address] [facility] (test code = 1538) [place] [address] RAD, CHEST, 1 VIEW, NON [id number] 08:49:00Reason for exam:->for outpatient HD placementShould this be performed at the bedside?->YesFINAL REPORT TECHNIQUE: Frontal chest radiograph dated 06/10/2017. CLINICAL HISTORY: Outpatient HD placement COMPARISON STUDY: None IMPRESSION:Right sided internal jugular venous catheter is seen with the tip. Increased interstitial lung markings are compatible with interstitial edema. No focal consolidation. No pleural effusion or pneumothorax. Cardiomediastinal silhouette isnormal in size. No fracture. Signed: Louis Hammereport Verified Date/Time: 06/10/2017 08:49:42 Reading Location: [facility] Radiology Reading Room POCT-GLUCOSE [id number] 06:53:00 Test Item Value Reference Range Comments POC-GLUCOSE METER (BEAKER) 177 mg/dL 70-110 TESTE D AT [address] (test code = 1538) [place] [address] POCT-GLUCOSE [id number] 22:10:00 Test Item Value Reference Range Comments POC-GLUCOSE METER (BEAKER) 109 mg/dL 70-110 TESTE D AT [address] (test code = 1538) [place] [address] HEPATITIS B SURFACE [id number] 20:18:00 Test Item Value Reference Range Comments HEPATITIS B SURFACE ANTIGEN (2) (BEAKER) (test Nonreactive N onreactive code = 2585) POCT-GLUCOSE [id number] 17:08:00 Test Item Value Reference Range Comments POC-GLUCOSE METER (BEAKER) 223 mg/dL 70-110 TESTE D AT [address] (test code = 1538) [place] [address] POCT-GLUCOSE [id number] 12:47:00 Test Item Value Reference Range Comments POC-GLUCOSE METER (BEAKER) 200 mg/dL 70-110 TESTE D AT [address] (test code = 1538) [place] [address] ANG, TUNNELED CATHETER [id number] 12:13:00Reason for exam:->renal failureFINAL REPORT Tunneled central [...] the patient's medical record by the nurse. Risk Management Director: Onesimo Lopez MD. Primary Clinician: None. Approach: Right internal jugular vein Estimated [...] needle into the right atrium. A 4 Salvadorean micropuncture sheath was placed. A subcutaneous tunnel was created in the right anterior chest wall by blunt dissection. A 19 cm tipped cuff 15.5 Salvadorean Duraflow 2 catheter was brought through the [...] MDReport Verified Date/Time: 06/09/2017 12:13:36 Reading Location: [facility] Radiology Reading Room POCT- GLUCOSE [id number] 06:03:00 Test Item Value Reference Range Comments POC-GLUCOSE METER (BEAKER) 208 mg/dL 70-110 TESTE D AT [facility] [address] (test code = 1538) [place] [address] BASIC METABOLIC [id number] 06:00:00 Test Item Value Reference Range Comments SODIUM (BEAKER) (test 139 meq/L 135-148 code = 381) POTASSIUM (BEAKER) (test 3.5 meq/L 3.6-5.5 code = 379) CHLORIDE (BEAKER) (test 103 meq/L 98-106 code = 382) CO2 (BEAKER) (test code = 26 meq/L 20-29 355) BLOOD UREA NITROGEN 62 mg/dL 10-26 (BEAKER) (test code = 354) CREATININE (BEAKER) (test 5.10 mg/dL 0.50-1.20 code = 358) GLUCOSE RANDOM (BEAKER) 191 mg/dL 70-110 (test code = 652) CALCIUM (BEAKER) (test 9.0 mg/dL 8.5-10.5 code = 697) EGFR (BEAKER) (test code 12 mL/min/1.73 sq m EST IMATED GFR IS NOT = 1092) ACCURATE CREA TININE CLEARANCE IN PRE DICTING GLOMERULAR FILTR ATION RATE. ESTIMATED GFR IS NOT APPLICABLE F OR DIALYSIS PATIENT S. HEPATIC FUNCTION [id number] 05:58:00 Test Item Value Reference Range Comments TOTAL PROTEIN (BEAKER) (test code = 770) 6.3 gm/dL 6.0-8.5 ALBUMIN (BEAKER) (test code = 1145) 3.2 g/dL 3.5-5.0 BILIRUBIN TOTAL (BEAKER) (test code = 377) 0.4 mg/dL 0.1-1 .2 BILIRUBIN DIRECT (BEAKER) (test code = 706) 0.2 mg/dL 0.0- 0.4 ALKALINE PHOSPHATASE (BEAKER) (test code = 346) 67 U/L 30-115 AST (SGOT) (BEAKER) (test code = 353) 13 U/L 5-40 ALT (SGPT) (BEAKER) (test code = 347) 10 U/L 5-50 CBC W/PLT COUNT & AUTO [id number] 05:56:00 Test Item Value Reference Range Comments WHITE BLOOD CELL COUNT (BEAKER) (test code = 6.3 K/ L 4.0 -10.0 775) RED BLOOD CELL COUNT (BEAKER) (test code = 761) 2.71 M/ L 4.20-5.80 HEMOGLOBIN (BEAKER) (test code = 410) 7.8 GM/DL 13.0-16.8 HEMATOCRIT (BEAKER) (test code = 411) 23.6 % 40.0-50.0 MEAN CORPUSCULAR VOLUME (BEAKER) (test code = 86.8 fL 82 .0-98.0 753) MEAN CORPUSCULAR HEMOGLOBIN (BEAKER) (test code 28.6 pg 27.0-33.0 = 751) MEAN CORPUSCULAR HEMOGLOBIN CONC (BEAKER) (test 33.0 GM/DL 32.0-36.0 code = 752) RED CELL DISTRIBUTION WIDTH (BEAKER) (test code 14.8 % 10.3-14.2 = 412) PLATELET COUNT (BEAKER) (test code = 756) 334 K/CU MM 150-43 0 MEAN PLATELET VOLUME (BEAKER) (test code = 754) 6.9 fL 6.5-10.5 NUCLEATED RED BLOOD CELLS (BEAKER) (test code = 0 /100 WBC 0-0 413) NEUTROPHILS RELATIVE PERCENT (BEAKER) (test code 57 % = 429) LYMPHOCYTES RELATIVE PERCENT (BEAKER) (test code 19 % = 430) MONOCYTES RELATIVE PERCENT (BEAKER) (test code = 15 % 431) EOSINOPHILS RELATIVE PERCENT (BEAKER) (test code 7 % = 432) BASOPHILS RELATIVE PERCENT (BEAKER) (test code = 1 % 437) NEUTROPHILS ABSOLUTE COUNT (BEAKER) (test code = 3.60 K/ L 1.80-8.00 670) LYMPHOCYTES ABSOLUTE COUNT (BEAKER) (test code = 1.20 K/ L 1.48-4.50 414) MONOCYTES ABSOLUTE COUNT (BEAKER) (test code = 1.00 K/ L 0 .00-1.30 415) EOSINOPHILS ABSOLUTE COUNT (BEAKER) (test code = 0.50 K/ L 0.00-0.50 416) BASOPHILS ABSOLUTE COUNT (BEAKER) (test code = 0.10 K/ L 0 .00-0.20 417) [id number] 05:55:00 Test Item Value Reference Range Comments PHOSPHORUS (BEAKER) (test code = 604) 4.1 mg/dL 2.5-4.5 [id number] 05:51:00 Test Item Value Reference Range Comments PROTIME (BEAKER) (test code = 759) 10.7 seconds 9.3-12.0 INR (BEAKER) (test code = 370) 1.0 <=5.9 PARTIAL THROMBOPLASTIN TIME (BEAKER) (test code 28.5 seconds 23.0-35.0 = 760) RECOMMENDED COUMADIN/WARFARIN INR THERAPY RANGESSTANDARD DOSE: 2.0 - 3.0 Includes: PROPHYLAXIS forvenous thrombosis, systemic embolization; TREATMENT for venous thrombosis and/or pulmonary embolus.HIGH RISK: Target INR is 2.5-3.5 for patients with mechanical heart valves.[id number] 05:50:00 Test Item Value Reference Range Comments MAGNESIUM (BEAKER) (test code = 627) 1.7 mg/dL 1.5-3.0 POCT-GLUCOSE [id number] 23:14:00 Test Item Value Reference Range Comments POC-GLUCOSE METER (BEAKER) 230 mg/dL 70-110 TESTE D AT [address] (test code = 1538) [place] [address]
--- NOTE | 2019-10-11 18:12 | RAD REPORT ---
EXAM DESCRIPTION: RAD - Chest Single View - 10/11/2019 6:06 pm CLINICAL HISTORY: sepsis Chest pain. COMPARISON: Chest Single View dated 07/04/2019; Chest Single View dated 12/23/2018; Chest Single View dated 10/16/2018; Chest Single View dated 09/03/2018 FINDINGS: Portable technique limits examination quality. The lungs are grossly clear. The heart is upper limit of normal in size. No displaced fractures. IMPRESSION: No acute intrathoracic process suspected.
[2019-10-11] MEDS ORDERED: VANCOMYCIN 1 GM/VIAL ONE (18:32)
[2019-10-11] MEDS ORDERED: PIPER/TAZO/NS 3.375gm 3.375 GM/100 ML BAG ONE (18:32)
[2019-10-11] MEDS ORDERED: NA CHLORIDE 0.9% 250 ML ONE (18:32)
[2019-10-11 19:01] LABS: Absolute Lymphocytes (CBC) 0.7 K/uL (0.7-4.9); Basophils % 1.2 % (0-1.3); Hematocrit 40.4 % (39.6-49.0); Lymphocytes % 13.1 % (15.3-44.8); MPV 7.7 fL (7.6-11.3); RBC Red Blood Cell Count 4.05 M/uL (4.33-5.43)
[2019-10-11 19:31] LABS: Protime INR 0.99
--- NOTE | 2019-10-11 20:07 | ER ---
Nurse's Notes [facility] Name: Yusuf Bah Age: 54 yrs Sex: Male : 1965 Arrival Date: 10/11/2019 Time: 17:25 Bed 17 Private MD: Garo Chavarria Diagnosis: Staphylococcal scalded skin syndrome Presentation: 10/10 17:30 Chief complaint: Patient states: Noticed skin of right foot sloughing off today. States ll1 it was bleeding and turning black. No known fever. Coronavirus screen: Proceed with normal triage. Patient denies a cough. Patient reports shortness of breath or difficulty breathing. Patient denies measured and/or subjective temperature greater than 100.4F prior to today's visit. Patient denies travel on a cruise ship or to a country the [facility] currently lists as an affected area. Patient denies contact with known and/or suspected case of COVID-19. Ebola Screen: Patient denies travel to an Ebola-affected area in the 21 days before illness onset. Initial Sepsis Screen: Does the patient meet any 2 criteria? No. Patient's initial sepsis screen is negative. Does the patient have a suspected source of infection? No. Patient's initial sepsis screen is negative. Risk Assessment: Do you want to hurt yourself or someone else? Patient reports no desire to harm self or others. Onset of symptoms was October 11, 2019. 17:30 Method Of Arrival: Wheelchair ll1 17:30 Acuity: ALVERTO 2 ll1 17:42 Chief complaint: Right foot 2nd digit turning black in color. Bruising and hematoma ll1 noted to left foot also. Triage Assessment: 22:31 General: Appears in no apparent distress. Historical: - Allergies: 17:32 Sulfa (Sulfonamide Antibiotics); ll1 - Home Meds: 19:04 BRILINTA 90 mg oral tab 1 tab daily for Thrombosis Prevention after Percutaneous snw Coronary Intervention [Active]; - PMHx: 17:32 kidney failure; SMALL VESSEL DSE; cardiac stents; ll1 - PSHx: 17:32 Appendectomy; Cholecystectomy; ll1 - Social history:: Patient/guardian denies using alcohol, street drugs, tobacco products. Screenin:28 Abuse screen: Denies threats or abuse. Nutritional screening: No deficits noted. Tuberculosis screening: No symptoms or risk factors identified. Fall Risk None identified. Assessment: 17:45 General: Appears in no apparent distress. Behavior is calm, cooperative. Pain: Denies ah pain. Neuro: Level of Consciousness is awake, alert, Oriented to person, place, time, situation. Cardiovascular: Heart tones S1 S2 present Capillary refill < 3 seconds Patient's skin is warm and dry. Respiratory: Airway is patent Respiratory effort is even, unlabored, Respiratory pattern is regular, symmetrical. GI: No signs and/or symptoms were reported involving the gastrointestinal system. : No signs and/or symptoms were reported regarding the genitourinary system. EENT: No signs and/or symptoms were reported regarding the EENT system. Derm: Skin has blisters on BLE Skin is moist, Skin is RLE skin is sloughing off and oozing off. Discoloration noted around toenails and toenails were loose, serasangous drainage oozing from entire foot. LLE has large blister intact to the lateral side by great toe. No drainage noted. Musculoskeletal: No signs and/or symptoms reported regarding the musculoskeletal system. 18:45 Reassessment: Patient and/or family updated on plan of care and expected duration. Pain ah level reassessed. Patient is alert, oriented x 3, equal unlabored respirations, skin warm/dry/pink. Patient denies pain at this time. 19:45 Reassessment: No needs voiced at this time. Patient denies pain at this time. ah 20:45 Reassessment: Awaiting room assignment for transfer. ah 21:45 Reassessment: EMS here to transfer Pt. IV antibiotics completed and tolerated well. No ah needs voiced at this time. Vital Signs: 17:30 BP 109 / 83; Pulse 83; Resp 18; Temp 98.3; Pulse Ox 100% ; Pain 0/10; ll1 18:45 BP 107 / 69; Pulse 73; Resp 18; Pulse Ox 100% ; ah 19:45 BP 129 / 70; Pulse 76; Resp 12; Pulse Ox 100% ; ah 19:49 Weight 83.91 kg; mw2 20:45 BP 132 / 54; Pulse 79; Resp 14; Pulse Ox 100% ; ah 21:45 BP 138 / 63; Pulse 78; Resp 18; Pulse Ox 100% ; ah ED Course: 17:25 Patient arrived in ED. mr 17:25 Garo Chavarria MD is Private Physician. mr 17:31 Triage completed. ll1 17:33 Arm band placed on Patient placed in an exam room, on a stretcher. ll1 17:38 Izabella Min FNP-C is [facility]. snw 17:38 Baldemar Batres MD is Attending Physician. snw 17:53 Linda Esqueda, RN is Primary Nurse. ah 18:08 Chest Single View XRAY In Process Unspecified. EDMS 18:25 Initial lab(s) drawn, by mi, sent to lab. First set of blood cultures drawn by me, jp3 X-ray(s) taken. T\T\S collected, blood band applied to patient. Inserted saline lock: 20 gauge in right wrist, using aseptic technique. Blood collected. Patient maintains SpO2 saturation greater than 95% on room air. 18:35 Second set of blood cultures drawn. jp3 18:45 T\T\S Sent. jp3 19:29 EKG done, by ED staff, reviewed by Izabella LANGSTON. jp3 19:48 initiated transfer with [facility] spoke with Moni Melendez. mw2 20:03 [facility] accepted pt. Moni will call back with bed assignment and report [facility] number. 21:00 Patient has correct armband on for positive identification. Bed in low position. Call light in reach. Side rails up X 1. 21:06 [facility] Moni will call us back. mw2 21:08 Moni called us back with a bed assignment. pt is going to [facility] bed 31. 21:30 No provider procedures requiring assistance completed. Patient transferred, IV remains in place. intact. Administered Medications: 18:45 Drug: Zosyn 3.375 grams Route: IVPB; Infused Over: 60 mins; Site: left hand; 22:36 Follow up: Response: No adverse reaction; IV Status: Completed infusion 20:05 Drug: vancoMYCIN 1 grams Route: IVPB; Infused Over: 2 hrs; Site: left forearm; 22:36 Follow up: Response: No adverse reaction; IV Status: Completed infusion Outcome: 20:06 ER care complete, transfer ordered by . snw 22:15 Transferred by ground EMS to [facility], Transfer form completed. 22:15 Condition: stable 22:15 Instructed on the need for transfer. 22:23 Patient left the ED. sg Signatures: Dispatcher [employer] EDYusuf Carroll RN RN Izabella Min, ORACLE PROGRAMMER ANALYST-C ORACLE PROGRAMMER ANALYST-Csnw Sam Katelyn mr Crawford, MarielyMarialuisa mw2 Raz Nunez jp3 Linda Esqueda RN RN David Monahan RN RN ll1 Corrections: (The following items were deleted from the chart) 17:43 17:30 Acuity: ALVERTO 3 ll1 ll1
--- NOTE | 2019-10-11 20:08 | EDPHYS ---
Physician Documentation [facility] Name: Yusuf Bah Age: 54 yrs Sex: Male : 1965 Arrival Date: 10/11/2019 Time: 17:25 Bed 17 Private MD: Garo Chavarria ED Physician Baldemar Batres HPI: 10/10 17:53 This 54 yrs old Male presents to ER via Wheelchair with complaints of Skin snw complaint. 17:53 Onset: The symptoms/episode began/occurred suddenly, yesterday, and became worse this snw morning. The patient has not experienced similar symptoms in the past. Went to dialysis yesterday. Pt needs a kidney and heart transplant. He sees [facility] at [place].. 18:10 Granddaughter states pt thought he cut his foot this am in the shower because it was snw bleeding. Noted skin sloughing and brought pt to the hospital. Historical: - Allergies: 17:32 Sulfa (Sulfonamide Antibiotics); ll1 - Home Meds: 19:04 BRILINTA 90 mg oral tab 1 tab daily for Thrombosis Prevention after Percutaneous snw Coronary Intervention [Active]; - PMHx: 17:32 kidney failure; SMALL VESSEL DSE; cardiac stents; ll1 - PSHx: 17:32 Appendectomy; Cholecystectomy; ll1 - Social history:: Patient/guardian denies using alcohol, street drugs, tobacco products. ROS: 18:11 Constitutional: Negative for fever, chills, and weight loss, Eyes: Negative for injury, snw pain, redness, and discharge, ENT: Negative for injury, pain, and discharge, Neck: Negative for injury, pain, and swelling, Cardiovascular: Negative for chest pain, palpitations, and edema, Respiratory: Negative for shortness of breath, cough, wheezing, and pleuritic chest pain, Abdomen/GI: Negative for abdominal pain, nausea, vomiting, diarrhea, and constipation, Back: Negative for injury and pain, : Negative for injury, bleeding, discharge, and swelling, MS/Extremity: Negative for injury and deformity, Neuro: Negative for headache, weakness, numbness, tingling, and seizure, Psych: Negative for depression, anxiety, suicide ideation, homicidal ideation, and hallucinations. 18:11 Skin: Positive for feet peeling/sloughing. Exam: 17:51 Constitutional: This is a well developed, well nourished patient who is awake, alert, snw and in no acute distress. Head/Face: Normocephalic, atraumatic. Eyes: Pupils equal round and reactive to light, extra-ocular motions intact. Lids and lashes normal. Conjunctiva and sclera are non-icteric and not injected. Cornea within normal limits. Periorbital areas with no swelling, redness, or edema. ENT: Nares patent. No nasal discharge, no septal abnormalities noted. Tympanic membranes are normal and external auditory canals are clear. Oropharynx with no redness, swelling, or masses, exudates, or evidence of obstruction, uvula midline. Mucous membranes moist. Neck: Trachea midline, no thyromegaly or masses palpated, and no cervical lymphadenopathy. Supple, full range of motion without nuchal rigidity, or vertebral point tenderness. No Meningismus. Chest/axilla: Normal chest wall appearance and motion. Nontender with no deformity. No lesions are appreciated. Cardiovascular: Regular rate and rhythm with a normal S1 and S2. No gallops, murmurs, or rubs. Normal PMI, no JVD. No pulse deficits. Respiratory: Lungs have equal breath sounds bilaterally, clear to auscultation and percussion. No rales, rhonchi or wheezes noted. No increased work of breathing, no retractions or nasal flaring. Abdomen/GI: Soft, non-tender, with normal bowel sounds. No distension or tympany. No guarding or rebound. No evidence of tenderness throughout. Back: No spinal tenderness. No costovertebral tenderness. Full range of motion. MS/ Extremity: Pulses equal, no cyanosis. Neurovascular intact. Full, normal range of motion. Neuro: Awake and alert, GCS 15, oriented to person, place, time, and situation. Cranial nerves II-XII grossly intact. Motor strength 5/5 in all extremities. Sensory grossly intact. Cerebellar exam normal. Normal gait. Psych: Awake, alert, with orientation to person, place and time. Behavior, mood, and affect are within normal limits. 17:51 Skin: Appearance: normal except for affected area, +Nikolsky Sign to bilateral feet, left medial foot with blistering, left foot with significant peeling of the forefoot with avulsion of lateral toenails, loosening of third toenail. oozing serosanguinous fluid. Vital Signs: 17:30 BP 109 / 83; Pulse 83; Resp 18; Temp 98.3; Pulse Ox 100% ; Pain 0/10; ll1 18:45 BP 107 / 69; Pulse 73; Resp 18; Pulse Ox 100% ; ah 19:45 BP 129 / 70; Pulse 76; Resp 12; Pulse Ox 100% ; ah 19:49 Weight 83.91 kg; mw2 20:45 BP 132 / 54; Pulse 79; Resp 14; Pulse Ox 100% ; ah 21:45 BP 138 / 63; Pulse 78; Resp 18; Pulse Ox 100% ; ah Procedures: 20:31 Performed Gentle debribement of plantar forefoot and dorsum of right foot. snw MDM: 17:39 Patient medically screened. snw 18:09 Data reviewed: vital signs, nurses notes. Data interpreted: Pulse oximetry: on room air snw is 100 %. Interpretation: normal. Counseling: I had a detailed discussion with the patient and/or guardian regarding: the historical points, exam findings, and any diagnostic results supporting the discharge/admit diagnosis. 18:12 Special discussion: Discussed with pt and family the need to transfer care to [facility] per multiple medical problems necessitating pt's Video Machines Mechanic, Dr. Nick Quinones, and team in care of pt. Family relieved to hear plan to transfer. Will await some results prior to initiating transfer of this pt. Special discussion:. 20:07 Physician consultation: called for transfer to [facility], Dr. Quinones kindly accepts pt in [facility] transfer without report. 10/10 17:51 Order name: T\T\S snw 10/10 17:51 Order name: Sed Rate; Complete Time: 19:29 snw 10/10 17:51 Order name: Fibrinogen; Complete Time: 19:43 snw 10/10 17:51 Order name: C-Reactive Protein; Complete Time: 21:03 snw 10/10 17:51 Order name: Amylase, Serum; Complete Time: 21:03 snw 10/10 17:51 Order name: Basic Metabolic Panel; Complete Time: 21:03 snw 10/10 17:51 Order name: Blood Culture Adult (2) snw 10/10 17:51 Order name: CBC with Diff; Complete Time: 19:29 snw 10/10 17:51 Order name: Ckmb; Complete Time: 21:03 snw 10/10 17:51 Order name: CPK; Complete Time: 21:03 snw 10/10 17:51 Order name: Lactate; Complete Time: 19:25 snw 10/10 17:51 Order name: LFT's; Complete Time: 21:03 snw 10/10 17:51 Order name: Lipase; Complete Time: 21:03 snw 10/10 17:51 Order name: Procalcitonin; Complete Time: 19:29 snw 10/10 17:51 Order name: Protime (+inr); Complete Time: 19:43 snw 10/10 17:51 Order name: Ptt, Activated; Complete Time: 19:43 snw 10/10 17:51 Order name: Troponin (emerg Dept Use Only); Complete Time: 21:03 snw 10/10 17:51 Order name: Chest Single View XRAY; Complete Time: 18:15 snw 10/10 17:51 Order name: Cardiac monitoring; Complete Time: 18:46 snw 10/10 17:51 Order name: EKG - Nurse/Tech; Complete Time: 19:30 snw 10/10 17:51 Order name: IV Saline Lock - Large Bore; Complete Time: 18:46 snw 10/10 17:51 Order name: Labs collected and sent; Complete Time: 18:46 snw 10/10 17:51 Order name: O2 Per Protocol; Complete Time: 18:46 snw 10/10 17:51 Order name: O2 Sat Monitoring; Complete Time: 18:46 snw 10/10 17:52 Order name: Type and Screen; Complete Time: 20:51 EDMS 10/10 19:32 Order name: Glucose, Ancillary Testing; Complete Time: 19:37 EDMS Administered Medications: 18:45 Drug: Zosyn 3.375 grams Route: IVPB; Infused Over: 60 mins; Site: left hand; 22:36 Follow up: Response: No adverse reaction; IV Status: Completed infusion 20:05 Drug: vancoMYCIN 1 grams Route: IVPB; Infused Over: 2 hrs; Site: left forearm; 22:36 Follow up: Response: No adverse reaction; IV Status: Completed infusion Disposition: 10/11 11:31 Co-signature as Attending Physician, Baldemar Medardo MD I agree with the assessment and logan plan of care. Disposition: 10/11/19 20:06 Transfer ordered to [facility]. Diagnosis is Staphylococcal scalded skin syndrome. - Reason for transfer: Higher level of care. - Accepting physician is Dr. Quinones. - Condition is Stable. - Problem is new. - Symptoms are unchanged. Signatures: Dispatcher [employer] EDYusuf Carroll RN RN Baldemar Rosales MD MD cha Therrien, Shelly, NSH TEACHER-C NSH TEACHER-Csnw Linda Esqueda, RN RN David Prajapati RN RN ll1 Corrections: (The following items were deleted from the chart) 10/10 20:33 17:51 Skin: Appearance: normal except for affected area, +Nikolsky Sign to bilateral snw feet, right lateral foot with blistering, left foot with significant peeling of the forefoot with avulsion of lateral toenails, loosening of third toenail., snw 22:23 20:06 10/11/2019 20:06 Transfer ordered to [facility]. Diagnosis is sg Staphylococcal scalded skin syndrome. Reason for transfer: Higher level of care. Accepting physician is Dr. Quinones. Condition is Stable. Problem is new. Symptoms are unchanged. snw
[2019-10-11 20:18] LABS: ALT/SGPT 28 U/L (12-78); AST/SGOT 28 U/L (15-37); Albumin 3.9 g/dL (3.4-5.0); Alkaline Phosphatase 155 U/L (45-117); Amylase Level 113 U/L (25-115); BUN Blood Urea Nitrogen 52 mg/dL (7-18); Bicarbonate 25 mmol/L (21-32); Bilirubin Direct 0.2 mg/dL (0-0.2); Bilirubin Total 0.5 mg/dL (0.2-1.0); CKMB Creatine Kinase MB 14.3 ng/mL (0.3-3.6); Creatine Phosphokinase 257 U/L (39-308); Glucose Level 97 mg/dL (74-106); Lipase 417 U/L (73-393); Potassium 4.5 mmol/L (3.5-5.1); Protein, Total 9.1 g/dL (6.4-8.2); Sodium Level 133 mmol/L (136-145); Troponin (Emerg Dept Use Only) 0.75 ng/mL (0.0-0.045)
[2019-10-11 21:00] LABS: C-Reactive Protein < 2.90 mg/L (<3.00)
[2019-10-11 22:30] VITALS: BP 109/83; TEMP 98.3; O2SAT 100
--- NOTE | 2019-10-12 09:47 | EKG ---
Test Date: 2019-10-11 Test Time: 19:14:47 Hvac Tech: MIRNA MEASUREMENT RESULTS: Intervals: Rate: 74 WI: 170 QRSD: 98 QT: 434 QTc: 481 Carter: P: 20 WI: 170 QRS: -61 T: 103 INTERPRETIVE STATEMENTS: Normal sinus rhythm Left axis deviation Anterolateral infarct, age undetermined Abnormal ECG Electronically Signed On 10-12-19 09:46:38 CDT by Aryan Love
== END 2019-10-11 22:23 | disposition short-term general hospital (02) ==
LOC: ER 17:23
DX: L00 Staphylococcal scalded skin syndrome (principal); N19 Unspecified kidney failure; Z88.2 Allergy status to sulfonamides; Z95.818 Presence of other cardiac implants and grafts
CPT/HCPCS: 93005; 87040 ×2; 85025; 80048; 36415; 82150; 86900; 85384; 86850; 82550; 85610; 86901; 82947; 80076; 83605; 85730; 85652; 84484; 82553; 83690; 84145; 86140; 71045; 99285; J2543; J7030